=== PATIENT | male | born 1960 | race Caucasian/White ===

== ENCOUNTER 2022-10-13 09:51 | Outpatient (OUT) | payer OTHER, SELFPAY ==
--- NOTE | 2022-10-13 10:01 | MR_ITS ---
[address] [address] Patient Name: JORDAN AGUILAR MRN: [facility]:[id number] date: 1960 Sex: M Assigned Patient Location: MRI Current Patient Location: Accession/Order Number: [id number] Exam Date: 10/13/2022 10:36 Report Date: 10/14/2022 07:33 At the request of: JORDAN AZAR Procedure: MR lumbar spine wo/w con EXAMINATION: MR lumbar spine wo/w con HISTORY: Lumbar Radiculitis M54.16 ; acute exacerbation of chronic low back and left hip pain COMPARISON: CT L-spine 06/08/2022 TECHNIQUE: Axial T1 and T2; Sagittal T1, T2, and STIR sequences. Images were performed before and after the administration of intravenous Dotarem contrast. FINDINGS: For the purposes of numbering, sagittal T2 image # 7 extends from the T12 vertebral body superiorly to the S2 level inferiorly. PARASPINAL AREA: Bilobed fusiform aneurysmal dilation of infrarenal aorta, approximately 4.9 x 3.5 cm. BONES: Moderate anterior wedging of L1 vertebral body without marrow edema; stable. CORD/CAUDA EQUINA: Normal caliber, contour, and signal intensity. LUMBAR DISC LEVELS: 12-L1: Early degenerative disc disease is present without focal protrusion or neural impingement. L1-L2: Early degenerative disc disease is present without focal protrusion or neural impingement. L2-L3: Early degenerative disc disease is present without focal protrusion or neural impingement. L3-L4: Mild central canal and bilateral foramen narrowing. Mild diffuse disc bulging and mild disc height reduction. No significant facet arthropathy. L4-L5: No significant disc/facet abnormality, spinal stenosis, or foraminal stenosis. L5-S1: Moderate marked right foramen and mild left foramen narrowing. No significant central canal narrowing. Mild diffuse disc bulging with right and left paracentral disc extrusions extending inferiorly approximately one fourth of vertebral body height of S1. Mild degenerative facet arthropathy bilaterally. MR/MR lumbar spine wo/w con IMPRESSION: 1. Stable L1 moderate compression fracture; chronic. 2. L5-S1 moderate-marked right foramen narrowing secondary to degenerative disc disease and facet arthropathy. Bilateral paracentral disc extrusions. Electronically authenticated by: YSABEL CARPENTER Date: 10/14/2022 07:33
== END 2022-10-13 09:52 | disposition home or self-care (01) ==
LOC: MRI 09:54
PROVIDERS: PCP Family Medicine; Visit Provider Family Medicine
DX: M54.16 Radiculopathy, lumbar region (principal)
CPT/HCPCS: 72158

== ENCOUNTER 2023-01-01 08:56 | Emergency (ER) | payer OTHER, SELFPAY ==
[2023-01-01 09:07] VITALS: BP 168/82; PULSE 64; RESP 20; TEMP 36.7; O2SAT 100; BMI 26.4
--- NOTE | 2023-01-01 09:11 | XR_ITS ---
The [address] [address] Patient Name: JORDAN AGUILAR MRN: [id number] date: 1960 Sex: M Assigned Patient Location: ER Current Patient Location: Accession/Order Number: [id number] Exam Date: 01/01/2023 09:40 Report Date: 01/01/2023 10:30 At the request of: NADINE ANGELES Procedure: XR hand LT min 3V LEFT WRIST X-RAY3 VIEWS AND LEFT HAND X-RAY 3 VIEWS HISTORY: Pain. COMPARISON: None. FINDINGS: There is soft tissue swelling left wrist. There is no acute fracture or dislocation. There are mild degenerative changes in the PIP and DIP joints of the hand. There are no destructive bone lesions. XR/XR hand LT min 3V IMPRESSION: No acute bony abnormality. Soft tissue swelling left wrist. Electronically authenticated by: ZAK COOK Date: 01/01/2023 10:30
--- NOTE | 2023-01-01 09:11 | XR_ITS ---
The [place] [id number] Patient Name: JORDAN AGUILAR MRN: [id number] date: 1960 Sex: M Assigned Patient Location: ER Current Patient Location: Accession/Order Number: [id number] Exam Date: 01/01/2023 09:40 Report Date: 01/01/2023 10:30 At the request of: NADINE ANGELES Procedure: XR wrist LT min 3V LEFT WRIST X-RAY3 VIEWS AND LEFT HAND X-RAY 3 VIEWS HISTORY: Pain. COMPARISON: None. FINDINGS: There is soft tissue swelling left wrist. There is no acute fracture or dislocation. There are mild degenerative changes in the PIP and DIP joints of the hand. There are no destructive bone lesions. XR/XR wrist LT min 3V IMPRESSION: No acute bony abnormality. Soft tissue swelling left wrist. Electronically authenticated by: ZAK COOK Date: 01/01/2023 10:30
--- NOTE | 2023-01-01 11:26 | ED.GENADUL1 ---
HPI - General Adult General Chief complaint: Extremity Injury, Upper Stated complaint: FALL LT HAND PAIN Time Seen by Provider: 01/01/23 10:34 Source: patient Mode of arrival: walk-in Limitations: no limitations History of Present Illness HPI narrative: The patient tripped and fell on his left wrist , no other injuries complaining of pain in his left hand and wrist Related Data Previous Rx's Medication Instructions Recorded tramadol 50 mg tablet 50 mg PO Q12H PRN pain 3 days #6 01/01/23 tabs Allergies Allergy/AdvReac Type Severity Reaction Status Date / Time pregabalin [From Lyrica] AdvReac Severe manic Verified 01/01/23 09:06 Review of Systems ROS Status of ROS 10 or more systems reviewed and unremarkable except as noted in history and below [facility] Social History Smoking status: Former smoker Exam Narrative Exam Narrative: Nurses notes and vital signs reviewed and patient is not hypoxic. General: Well-appearing and in no apparent distress. Skin: Warm, dry, no pallor noted. No rash. Head: Normocephalic, atraumatic. Neck: Supple, non-tender. Eye: Pupils are equal, round and EOMI. No scleral icterus. Ears, Nose, Mouth, and Throat: TM are clear, no nasal mucosal hypertrophy. Oral mucosa is moist, no posterior oropharynx erythema, uvula is mid-line Cardiovascular: Regular Rate and Rhythm without murmur, gallop or rub. Respiratory: No accessory muscle use or respiratory distress. Lungs are clear to auscultation, no wheezing, rales or rhonchi Chest Wall: no tenderness Back: No midline thoracic or lumbar vertebral tenderness. No CVA tenderness Musculoskeletal: Decreased flexion of the left wrist and the patient have tenderness upon palpation of the lateral aspect of the wrist mostly over the ulnar distal styloid the patient have no tenderness upon palpation of the scaphoid area except mildly GI: Abdomen is soft, non-distended. Normal bowel sounds. No masses appreciated. No tenderness to palpation. No rebound, guarding, or rigidity noted. Neurological: A&O x4. No cranial nerve dysfunction observed. No truncal ataxia. Moves all extremities. Sensation intact. Psychiatric: Cooperative and interactive. Normal mood and affect. Constitutional Vital Signs, click to edit/add: Last Vital Signs Temp 98.1 F 01/01/23 09:07 Pulse 66 01/01/23 11:50 Resp 14 01/01/23 11:50 BP 167/84 H 01/01/23 11:50 Pulse Ox 98 01/01/23 11:50 O2 Del Method Room Air 01/01/23 11:50 Course Vital Signs Vital signs: Vital Signs Temperature 98.1 F 01/01/23 09:07 Pulse Rate 64 01/01/23 09:07 Respiratory Rate 20 01/01/23 09:07 Blood Pressure 168/82 H 01/01/23 09:07 Pulse Oximetry 100 01/01/23 09:07 Oxygen Delivery Method Room Air 01/01/23 09:07 Temperature 98.1 F 01/01/23 09:07 Pulse Rate 66 01/01/23 11:50 Respiratory Rate 14 01/01/23 11:50 Blood Pressure 167/84 H 01/01/23 11:50 Pulse Oximetry 98 01/01/23 11:50 Oxygen Delivery Method Room Air 01/01/23 11:50 Medical Decision Making MDM Narrative Medical decision making narrative: X-ray of the left wrist as well as her x-ray of the left hand showed no acute significant pathology but the patient was instructed that he need to repeat the x-ray within the week although his main concern is that ulnar side of the wrist , The patient was treated in the ER with tramadol as well as splint applied He is to follow-up with orthopedic as outpatient patient also to come back to us in case of any new symptoms or concerns The patient is to follow up with primary care physician in next 2-3 days or to return to the emergency department should any of the signs or symptoms worsen or new symptoms develop. The patient agrees with the following Diagnosis and Treatment plan and the patient will be discharged home. Discharge Plan Discharge Chief Complaint: Extremity Injury, Upper Clinical Impression: Contusion of right wrist Patient Disposition: Home, Self-Care Time of Disposition Decision: 11:26 Condition: Good Prescriptions / Home Meds: New tramadol 50 mg tablet 50 mg PO Q12H PRN (Reason: pain) 3 Days Qty: 6 0RF Instructions: Wrist Injury (ED), Contusion in Adults (ED) Stand Alone Forms: Portal Instructions Referrals: Washington Brooks MD [Primary Care Provider] - 1 week John Mcpherson MD [Physician] - 1 week Discharge Date/Time: 01/01/23 11:52
[2023-01-01] MEDS: TRAMADOL HCL 50 MG TABLET PO (11:27)
[2023-01-01 11:50] VITALS: BP 167/84; PULSE 66; RESP 14; O2SAT 98
== END 2023-01-01 11:52 | disposition home or self-care (01) ==
PROVIDERS: Emergency Provider Emergency Medicine; PCP Family Medicine
DX: S60.211A Contusion of right wrist, initial encounter (principal); Z87.891 Personal history of nicotine dependence; W01.10XA Fall on same level from slipping, tripping and stumbling with subsequent striking against unspecified object, initial encounter
CPT/HCPCS: 73110; 73130; 99283

== ENCOUNTER 2023-01-11 09:25 | Outpatient (OUT) | payer OTHER, SELFPAY ==
--- NOTE | 2023-01-11 09:51 | XR_ITS ---
The [place] [id number] Patient Name: JORDAN AGUILAR MRN: [id number] date: 1960 Sex: M Assigned Patient Location: [facility] Current Patient Location: Accession/Order Number: [id number] Exam Date: 01/11/2023 09:45 Report Date: 01/12/2023 06:55 At the request of: JORDAN HOY Procedure: XR wrist LT min 3V PROCEDURE: XR wrist LT min 3V HISTORY: Left Wrist Pain since falling 10 days ago COMPARISON: XR wrist left 01/01/2023 FINDINGS: BONES:Mild degenerative changes at the scaphoid-trapezium joint. No fracture, dislocation, bone lesion. SOFT TISSUES:No visible soft tissue swelling. EFFUSION:None visible. OTHER: Negative. XR/XR wrist LT min 3V IMPRESSION: 1. No acute bone abnormality. Minimal degenerative joint disease. Electronically authenticated by: YSABEL CARPENTER Date: 01/12/2023 06:55
== END 2023-01-11 09:26 | disposition home or self-care (01) ==
LOC: RAD 09:26
PROVIDERS: PCP Family Medicine; Visit Provider Family Medicine
DX: M25.532 Pain in left wrist (principal); M19.032 Primary osteoarthritis, left wrist
CPT/HCPCS: 73110

== ENCOUNTER 2023-01-20 08:11 | Outpatient (OUT) | payer OTHER, SELFPAY ==
--- NOTE | 2023-01-20 09:06 | CT_ITS ---
The [address] [address] Patient Name: JORDAN AGUILAR MRN: [id number] date: 1960 Sex: M Assigned Patient Location: CT Current Patient Location: CT Accession/Order Number: [id number] Exam Date: 01/20/2023 08:49 Report Date: 01/20/2023 09:40 At the request of: JORDAN AZAR Procedure: CT angio chest EXAMINATION: CT angio chest, 01/20/2023 8:49 AM EDT HISTORY: Abdominal Aortic Aneurysm COMPARISON: None. TECHNIQUE: CT angiography of the chest was performed with water soluble IV contrast. MIP (maximum intensity projection) images or 3D post processing was performed. CT dose reduction technique was used, including Automated Exposure Control. FINDINGS: The heart is normal in size. The thoracic aorta is within normal limits. The pulmonary arteries are well opacified without evidence of filling defects. Paraseptal and centrilobular emphysematous changes are seen, including a large bleb along the medial aspect of the left upper lobe. Several surgical clips are projected in the right upper lobe and lateral aspect of the right middle lobe. No acute infiltrate is seen. No pneumothorax or pleural effusion is seen. The mediastinum and helene appear unremarkable. The osseous structures appear intact. The visualized portions of the upper abdomen appear unremarkable. CT/CT angio chest IMPRESSION: No evidence of pulmonary emboli or other acute process. Paraseptal and centrilobular emphysematous changes are noted, including evidence of prior surgery on the right. Electronically authenticated by: RACHELLE SWANSON Date: 01/20/2023 09:40
== END 2023-01-20 08:12 | disposition home or self-care (01) ==
LOC: CT 08:11
PROVIDERS: PCP Family Medicine; Visit Provider Family Medicine
DX: I71.40 Abdominal aortic aneurysm, without rupture, unspecified (principal)
CPT/HCPCS: 71275; Q9967

== ENCOUNTER 2023-11-03 11:31 | Outpatient (REF) | payer OTHER, SELFPAY ==
[2023-11-03 12:01] LABS: Internal Control Within Normal Limits; SARS-CoV-2 Ag NEGATIVE (NEGATIVE)
== END 2023-11-03 11:32 | disposition home or self-care (01) ==
LOC: LAB 11:31
PROVIDERS: PCP Family Medicine; Visit Provider Family Medicine
DX: J02.9 Acute pharyngitis, unspecified (principal); Z20.822 Contact with and (suspected) exposure to COVID-19
CPT/HCPCS: 87811

== ENCOUNTER 2024-11-22 10:07 | Outpatient (OUT) | payer OTHER, SELFPAY ==
--- OUTSIDE RECORDS SUMMARY | 2024-11-15 03:55 | XMS_ITS ---
Author Organization The [facility] in [place] Address [address] [place] [address] Care Team Providers Care Cma Name Role Phone Sonu Brooks Primary Care Provider [phone] REASON FOR VISIT Needs yearly Encounters Encounter Location Date Provider Diagnosis [facility] [address] [place] [address] 11/15/2024 Sonu Brooks Plan Of Treatment No Information Progress Notes * Washington AGUILAR EDOB:1960 (64 yo M)Acc No.[id number]:11/15/2024 Patient: Sonu STlas Luz Maria :1960 A ge:64 Y S ex:Male Address:[address] [place] [address], [place] [address] * true * Date: Generated for Kai patten/Duran/eTransmitting on: 0 11/22/2024 10:13 AM EDT
--- OUTSIDE RECORDS SUMMARY | 2024-11-20 06:45 | XMS_ITS ---
Author Organization The [facility] in [place] Address [address] [place] [address] Care Team Providers Care Redipper Name Role Phone Sonu Brooks Primary Care Provider Allergies Allergen (clinical drug ingredient) Drug/Non Drug Allergy documented on EMR Reaction Allergy Type Onset Date Status pregabalin Lyrica dizziness Drug Allergy Active REASON FOR VISIT Presents to office alone for yearly check up Medications Medication SIG (Take, Route, Fr equency, Duration) Notes Start Date End Date Status Magnesium 400 MG 1 capsule with a saw l Orally BID Active Multi Vitamin - 1 tablet Orally Once a day Active Simvastatin 20 MG TAKE 1 TABLET BY YOGESH TH EVERY DAY IN THE EVENING FOR 90 DAYS for 30 days Active Tacrolimus 1 MG 2 pills Orally BID Active Ursodiol 300 MG 1 capsule Orally TID 03/21/2024 Active Amitriptyline HCl 50 MG 1 tablet at bedt tobi Orally Once a day for 30 days 03/21/2024 Active Aspirin 81 81 MG 1 tablet Orally Once a day Active Bactrim DS 800-160 MG 1 tablet Orally Th ree times a Week Active Carvedilol 12.5 MG 1 tablet with food O rally Twice a day for 30 days Active CellCept 250 MG 2 capsule Orally Twice a day Active Acetaminophen 500 MG 1 capsule as needed Orally every 6 hrs not more than 2000 mg Active Social History Tobacco Use: Social History Observation Description Date Details (start date - stop date) Current Smoker NA - NA Tobacco Control (Standard) Question Answer Notes Tobacco use: Current smoker How often do you smoke cigarettes? Every day AUDIT-C (Standard) Question Answer Notes Did you have a drink containing alcohol in the p ast year? No Points 0 Interpretation Negative Problems Problem Type SNOMED Code ICD Code Onset Dates Problem Status W/U Status Risk Notes Problem Liver transplant recipient ([id number]) Liver transplant recipient (Z94.4) Active confirmed Problem Abdominal aortic aneurysm 3.0 to 5.5 centimeters in male (disorder) ([id number] ) Abdominal aortic aneurysm (AAA) 3.0 cm to 5.5 cm in diameter in male (I71.40) Active confirmed Vital Signs Weight 224.8 lbs 11/20/2024 Height 74 in 11/20/2024 Blood pressure systolic 140 mm Hg 11/21/19 25 Blood pressure diastolic 80 mm Hg 025 BMI 28.86 kg/m2 11/20/2024 Encounters Encounter Location Date Provider Diagnosis [facility] [address] [place] [address] 11/20/2024 Sonu Hoy Hypertension I10 ; L umbar radiculitis M54.16 ; Hypercholesteremia E78.00 ; Liver transplant recipient Z94.4 ; Abdominal aortic aneurysm (AAA) 3.0 cm to 5.5 cm in diameter in male I71.40 and Right inguinal hernia K40.90 Assessments Encounter Date Diagnosis (ICD Code) Assessment Notes Treatment Notes Treatment Clinical Notes Section Notes 11/20/2024 Hypertension (ICD-10 - I10) 11/20/2024 Lumbar radiculitis (ICD-10 - M54.16) 11/20/2024 Hypercholesteremia (ICD-10 - E78.00) 11/20/2024 Liver transplant recipient (ICD-10 - Z94.4) 11/20/2024 Abdominal aortic aneurysm (AAA) 3.0 cm to 5.5 cm in diameter in male (ICD-10 - I71.40) 11/20/2024 Right inguinal herni a (ICD-10 - K40.90) Plan Of Treatment Pending Test Test Name Order Date XR LSPINE MIN 4 VIEWS 11/20/2024 XR cervical spine 2-3V 11/20/2024 US aorta 11/20/2024 Progress Notes * Washington AGUILAR EDOB:1960 (64 yo M)Acc No.[id number]:11/20/2024 UNLOCKED PROGRESS NOTE Progress Note Patient: Washington ST E Provider: Los Brooks ([facility])MD :1960 A ge:64 Y S ex:Male Date:11/20/2024 Address:[address] [place] [address], [id number] Check In:10:32 AM ESTCheck O ut:11:27 AM EST Subjective: * Chief Complaints: * 1 . Presents to office alone for yearly check up. * HPI: G eneral: hx AAA - needs u/s - hypertension - stabel at home hx liver tranplant - neuropathy in feet. * ROS: E ENT: hearing changes d enies. v isual changes d enies.?non-healing mouth sores d enies. s wollen glands or neck lumps d enies. h oarseness d enies. s ore throat d enies. d ifficulty swallowing d enies. n ose bleeds d enies. n jordan congestion d enies. e ar ache d enies. e ar discharge?denies. r inging in ears d enies. l ight sensitivity d enies. e ye pain d enies. b lurring d enies. e ye irritation d enies. d ouble vision d enies.?vision loss d enies. G eneral/Constitutional: Sweats: D enies. F atigue d enies. S leep problems d enies. A norexia d enies. M alaise d enies. W eight loss d enies.?Fatigue or Weakness d enies. F ever or Chills d enies. C ardiovascular: Shortness of Breath w/lying flat d enies. L ightheadedness/dizziness d enies. C hest tightness/ heavy pressure d enies. S welling of legs, ankles, or feet d enies. W aking up with shortness of breath d enies. C hest pain denies. P alpitations d enies. W eight gain d enies. R espiratory: Chronic or frequent cough d enies. C oughing up blood?denies. D ifficulty breathing d enies. P roductive cough d enies. S noring?denies. S hortness of breath that awakens from sleep (PND) d enies. C hest pain d enies. S putum production d enies. W heezing d enies. M usculoskeletal: Joint pain d enies. J oint Fluid d enies. B ack pain d enies. K nee pain d enies. N susanne pain d enies. J oint Stiffness d enies. M uscle cramps d enies. W eakness of muscles d enies. A rthritis d enies. M uscle aches d enies. P ain in shoulder(s) d enies. S wollen joints d enies. * Medical History: A cquired thrombocytopenia, Hypertension, Hyperlipemia, Polyclonal gammopathy, Gammopathy, monoclonal, CAD (coronary artery disease), Closed compression fracture of first lumbar vertebra, sequela, Iron (Fe) deficiency anemia, Histoplasmosis, Hypertension, portal, Hernia, umbilical, Hernia, inguinal, Ascites, Abdominal aneurysm, Pleural effusion, Spleen enlarged, Cirrhosis, cryptogenic, Tricuspid regurgitation, Atrial dilatation, left, Mitral regurgitation, Congestive heart failure, Enlarged heart, Arthralgia, Low platelet count, Dyslipidemia, Benign hypertension, Anxiety, Acute depression, DDD (degenerative disc disease), lumbosacral. * Surgical History: l iver transplant 04/2022, left cataaract 02/2019, heart cath 10/2019, back surgery , umbilical hernia 09/2020, colonoscopy 04/2020. * Hospitalization/Major Diagno stic Procedure: a scities 04/2019, bowel obstruction 08/2018. * Family History: F ather: , diagnosed with Unspecified essential hypertension. M other: .?Brother(s): alive. S ister(s): alive. 2 brother(s) , 2 sister(s) - healthy. 1 son(s) , 1 daughter(s) - healthy. . * Social History: T obacco Use: T obacco Control (Standard) T obacco use: C urrent smoker H ow often do you smoke cigarettes? E very day D rug/Alcohol: A RAMIREZ-C (Standard) D id you have a drink containing alcohol in the past year? N o P oints 0 I nterpretation N egative * Medications: T aking Acetaminophen 500 MG Capsule 1 capsule as needed Orally every 6 hrs not more than 2000 mg , Taking Amitriptyline HCl 50 MG Tablet 1 tablet at bedtime Orally Once a day , Taking Aspirin 81(Aspirin) 81 MG Tablet Chewable 1 tablet Orally Once a day , Taking Bactrim DS(Sulfamethoxazole-Trimethoprim) 800-160 MG Tablet 1 tablet Orally Three times a Week , Taking Carvedilol 12.5 MG Tablet 1 tablet with food Orally Twice a day , Taking CellCept(Mycophenolate Mofetil) 250 MG Capsule 2 capsule Orally Twice a day , Taking Magnesium 400 MG Tablet 1 capsule with a meal Orally BID , Taking Multi Vitamin - Tablet 1 tablet Orally Once a day , Taking Simvastatin 20 MG Tablet TAKE 1 TABLET BY MOUTH EVERY DAY IN THE EVENING FOR 90 DAYS , Taking Tacrolimus 1 MG Capsule 2 pills Orally BID , Taking Ursodiol 300 MG Capsule 1 capsule Orally TID , Medication List reviewed and reconciled with the patient * Allergies: L yrica: dizziness - Allergy. Objective: * Vitals: W t:224.8lbs, Ht: 74 in, BP:140/80mm Hg, BMI:28.86Index, Ht-cm: 187.96 cm, Wt-k.97 kg. * Examination: P hysical Exam: GENERAL: w ell developed, well nourished, in no acute distress. HEAD: n ormocephalic/atraumatic. EYES: p upils equal, round and reactive to light, conjunctivae and sclerae normal. EARS: n o deformity or lesion of external ear, canals and TM appear normal bilaterally, TM's intact, not inflamed with normal light reflex, hearing grossly normal to conversational speech. NOSE: n o deformity, discharge, inflammation, or lesions.? MOUTH: m ucous membranes moist, normal oropharynx and posterior pharynx without lesions or exudates, tongue normal, dentition normal. NECK: n susanne supple, no masses or palpable cervical nodes, trachea midline, thyroid without nodules, masses, tenderness, or enlargement. CHEST: n o chest wall deformity, no chest wall tenderness.? LUNGS: n ormal respiratory effort and clear to auscultation, no wheezes, rales, or rhonchi, good air exchange. CARDIO: r egular rate and rhythm, normal S1 and S2, nor murmur, rub, or gallop. PULSES: n ormal capillary refill. ABDOMEN: s oft, non-distended, non-tender, no masses. MUSCULOSKELETAL: n o deformity or scoliosis noted, normal range of motion, joints normal, no erythema, edema, effusion, or ecchymosis. EXTREMITY: n o clubbing, cyanosis, edema, or deformity with normal ROM in both upper and lower bilateral extremities. NEUROLOGIC: g rossly normal. SKIN: n o rashes, ulcerations, or suspicious lesions. LYMPH NODES: n o cervical adenopathy, nodes normal. MENTAL STATUS: a lert and oriented x3, normal mood and affect. Assessment: * Assessment: 1. H ypertension - I10 (Primary) 2 . L umbar radiculitis - M54.16 ? 3 . H ypercholesteremia - E78.00 4 . L iver transplant recipient - Z94.4 5 . A bdominal aortic aneurysm (AAA) 3.0 cm to 5.5 cm in diameter in male - I71.40 6 . R ight inguinal hernia - K40.90 Plan: * Treatment: 2. A bdominal aortic aneurysm (AAA) 3.0 cm to 5.5 cm in diameter in male I maging: US aorta * Preventive Medicine: Screenings/Counseling: B [place] ACTION PLAN Above Normal BMI Follow-up D ietary management education, guidance, and counseling See treatment section of progress note for complete details of management plan. T OBACCO ACTION PLAN Patient counselled on the dangers of tobacco use and urged to quit. 0 11/20/2024 . F ALL RISK SCREENING Fall Risk Assessment: N o falls in the past year * * Electronic signature of Sonu Brooks MD, [phone] on 11/22/2024 at 10:11 AM EDT Sign off status: Pending Visit Status: C HK (Check Out) * Provider: Los Brooks ([facility])MD Date: 0 11/20/2024 Generated for Kai patten/Duran/eTransmitting on: 0 11/22/2024 10:11 AM EDT History and Physical Notes * HPI (History of Present Illness) Category Sub-Category Detail Notes Category Not es General hx AAA - needs u/s - hypertension - stabel at home hx liver tranplant - neuropathy in feet Examination Category Sub-Category Detail Notes Category Not es Physical Exam GENERAL: well developed, well nourished, in no acute distress HEAD: normocephalic/atraum atic EYES: pupils equal, round and reactive to light, conjunctivae and sclerae normal EARS: no deformity or lesi on of external ear, canals and TM appear normal bilaterally, TM's intact, not inflamed with normal light reflex, hearing grossly normal to conversational speech NOSE: no deformity, discha rge, inflammation, or lesions MOUTH: mucous membranes yesenia st, normal oropharynx and posterior pharynx without lesions or exudates, tongue normal, dentition normal NECK: neck supple, no mass es or palpable cervical nodes, trachea midline, thyroid without nodules, masses, tenderness, or enlargement CHEST: no chest wall deform ity, no chest wall tenderness LUNGS: normal respiratory e ffort and clear to auscultation, no wheezes, rales, or rhonchi, good air exchange CARDIO: regular rate and rhy thm, normal S1 and S2, nor murmur, rub, or gallop PULSES: normal capillary ref ill ABDOMEN: soft, non-distended, non-tender, no masses RECTAL: MUSCULOSKELETAL: no deformity or scol iosis noted, normal range of motion, joints normal, no erythema, edema, effusion, or ecchymosis EXTREMITY: no clubbing, cyanosi s, edema, or deformity with normal ROM in both upper and lower bilateral extremities NEUROLOGIC: grossly normal SKIN: no rashes, ulceratio ns, or suspicious lesions LYMPH NODES: no cervical adenopat hy, nodes normal MENTAL STATUS: alert and oriented x 3, normal mood and affect
--- OUTSIDE RECORDS SUMMARY | 2024-11-20 07:21 | XMS_ITS ---
Author Organization [facility] in [place] Address [address] [place] [address] Care Team Providers Care Pipe Supervisor Name Role Phone Sonu Brooks Primary Care Provider REASON FOR VISIT Referral Encounters Encounter Location Date Provider Diagnosis [facility] [address] [place] [address] 11/20/2024 Sonu Brooks Plan Of Treatment No Information Progress Notes * Washington AGUILAR EDOB:1960 (64 yo M)Acc No.[id number]:11/20/2024 Patient: Washington ST :1960 A ge:64 Y S ex:Male Address:[address] [place] [address], [place] [address] * true * Date: Generated for Kai patten/Duran/eTransmitting on: 0 11/22/2024 10:12 AM EDT
--- OUTSIDE RECORDS SUMMARY | 2024-11-22 10:11 | XMS_ITS | Encounter Summary ---
Author Organization [facility] Address [facility] [place] [address] Care Team Providers Care Bottling Equipment Sales Representative Name Role Phone Washington Brooks MD Primary Care Provider [phone] Jimmy Escalante DO, David L Unavailable [phone] Ramirez Nieto MD Unavailable + [phone] Kat Leal RN Unavailable Unavailable [facility] Unavailable Source Comments In the event this information is protected by the Federal Confidentiality of Alcohol and Drug AbusePatient Records regulations: The Federal rules restrict any use of the information to criminally investigate or prosecute any alcohol or drug abuse patient.[facility] Encounter Details Date Type Department Care Team (Late st Contact Info) Description 04/23/2021 Patient Msg Gastroenterology [address] [phone] Dayna Purdy MD [address] [place] [id number] Upper Endoscopy Social History Tobacco Use Types Packs/Day Years Used Date Smoking Tobacco: Former Cigarettes 2 41.8 0 05/30/1977 - 04/2019 Smokeless Tobacco: Former Snuff Comments:Quite 03/02/2020 Alcohol Use Standard Drinks/Week Comments Not Currently 0 (1 standard drink = 0.6 oz pur e alcohol) AUDIT-C Answer Date Recorded Q1: How often do you have a drink containing alc ohol? Never 09/09/2019 Average Number of Drinks Not on file 020 Frequency of Binge Drinking Not on file 11/2019 Area Deprivation Index Answer Date Dev rded National Score (1-100), lower number is lower ri sk Not on file 03/08/2020 State Score (1-10), lower number is lower risk N ot on file 03/08/2020 Data from: https://www.neighborhoodatlas.medicine.[facility].edu/. Last address used for calculation Not on file 03/08/2020 Sex and Gender Information Value Date Recorded Sex Assigned at Male 06/02/2020 10:20 AM EST Legal Sex Male 10:13 AM EDT Gender Identity Male 06/02/2020 10:20 AM EST Sexual Orientation Not on file COVID-19 Exposure Response Date Recorded In the last month, have you been in contact with someone who was confirmed or suspected to have Coronavirus / COVID-19? No / Unsure 04/21/2021 7:49 AM EST documented as of this encounter Functional Status * Are you deaf or do you have serious difficulty hearing? Answer Date of Assessment Author No 09/05/2020 10:00 AM Tiffanie Chavez RN * Are you blind or do you have serious difficulty seeing, even when wearing glasses? Answer Date of Assessment Author No 09/05/2020 10:00 AM Tiffanie Chavez RN * Do you have serious difficulty walking or climbing stairs? Answer Date of Assessment Author No 09/05/2020 10:00 AM Tiffanie Chavez RN * Do you have difficulty dressing or bathing? Answer Date of Assessment Author No 09/05/2020 10:00 AM Tiffanie Chavez RN * Because of a physical, mental, or emotional condition, do you have difficulty doing errands alone such as visiting a doctor's office or shopping? Answer Date of Assessment Author No 09/05/2020 10:00 AM EDT Tiffanie Schwarz RN documented as of this encounter Mental Status * Because of a physical, mental, or emotional condition, do you have serious difficulty concentrating, remembering, or making decisions? Answer Entry Date Author No 09/05/2020 10:00 AM EDT Tiffanie Schwarz RN documented in this encounter Plan of Treatment Upcoming Encounters Date Type Department Care Team (Late st Contact Info) Description 12/16/2024 7:45 AM EDT Office Visit [facility] [address] [place] [address] lab 01/20/2025 7:45 AM EDT Office Visit [facility] [address] [facility] [place] [address] lab 02/17/2025 7:45 AM EST Office Visit [facility] [address] [facility] [place] [address] lab 03/17/2025 7:45 AM EST Office Visit [facility] [address] [place] [address] lab documented as of this encounter Visit Diagnoses Not on filedocumented in this encounter Additional Health Concerns Infection Onset Date Last Indicated Resolved Time COVID-19 Rule-Out 05/06/2021 05/06/2021 05/26/2021 8:51 PM EST COVID-19 Rule-Out 11/12/2021 11/13/2021 11/13/2021 8:39 AM EDT COVID-19 Rule-Out 05/02/2022 05/02/2022 05/02/2022 8:19 PM EST documented as of this encounter Care Teams Bottling Equipment Sales Representative Relationship Specialty Start Date End Date Washington Brooks MD PCP - General Family Medicine 10/13/14 Hua Marquez Jr., DO [address] [place] [address] [place] [address] Referring Gastroenterology 05/25/18 Ramirez Nieto MD [address] [place] [address] Primary Staff Physician Cardiology 12/31/20 Kat Leal, [facility] [address] [place] [address] Transplant Center 06/10/22 [facility] [address] [address] Referring Neurosurgery 11/07/22 [facility] 05/09/22 documented as of this encounter
--- OUTSIDE RECORDS SUMMARY | 2024-11-22 10:11 | XMS_ITS | Encounter Summary ---
Author Organization [facility] Address [facility] [place] [address] Care Team Providers Care Braider Tender Name Role Phone Washington Brooks MD Primary Care Provider [phone] Jimmy Escalante DO, David L Unavailable [phone] Ramirez Nieto MD Unavailable + [phone] Kat Leal RN Unavailable Unavailable [facility] Unavailable Source Comments In the event this information is protected by the Federal Confidentiality of Alcohol and Drug AbusePatient Records regulations: The Federal rules restrict any use of the information to criminally investigate or prosecute any alcohol or drug abuse patient.[facility] Encounter Details Date Type Department Care Team (Late st Contact Info) Description 09/16/2021 Patient Msg Gastroenterology [address] [phone] Provider, [facility] Appointment reminder Social History Tobacco Use Types Packs/Day Years Used Date Smoking Tobacco: Every Day Cigarettes Started: 06/01/2021 Smokeless Tobacco: Former Snuff Comments:Quite 03/02/2020 Alcohol Use Standard Drinks/Week Comments Not Currently 0 (1 standard drink = 0.6 oz pur e alcohol) AUDIT-C Answer Date Recorded Q1: How often do you have a drink containing alc ohol? Never 09/09/2019 Average Number of Drinks Not on file 020 Frequency of Binge Drinking Not on file 11/2019 PHQ-2 Answer Date Recorded PHQ-2 score 0 05/17/2021 Area Deprivation Index Answer Date Dev rded National Score (1-100), lower number is lower ri sk 49 09/17/2021 State Score (1-10), lower number is lower risk N ot on file 09/17/2021 Data from: https://www.neighborhoodatlas.medicine.[facility]/. Last address used for calculation [address] [facility] 09/17/2021 Sex and Gender Information Value Date Recorded Sex Assigned at Male 06/02/2020 10:20 AM EST Legal Sex Male 10:13 AM EDT Gender Identity Male 06/02/2020 10:20 AM EST Sexual Orientation Not on file COVID-19 Exposure Response Date Recorded In the last 10 days, have yo u been in contact with someone who was confirmed or suspected to have Coronavirus/COVID-19? No / Unsure 09/13/2021 9:42 AM EDT documented as of this encounter Functional Status [...] Description 12/16/2024 7:45 AM EDT Office Visit [facility] [address] [place] [address] lab 01/20/2025 7:45 AM EDT Office Visit [facility] [address] [facility] [place] [address] lab 02/17/2025 7:45 AM EST Office Visit [facility] [address] [facility] [place] [address] lab 03/17/2025 7:45 AM EST Office Visit [facility] [address] [place] [address] lab documented as of this encounter Visit Diagnoses Not on filedocumented in this encounter Additional Health Concerns Infection Onset Date Last Indicated Resolved Time COVID-19 Rule-Out 11/12/2021 11/13/2021 11/13/2021 8:39 AM EDT COVID-19 Rule-Out 05/02/2022 05/02/2022 05/02/2022 8:19 PM EST documented as of this encounter Care Teams Braider Tender Relationship Specialty Start Date End Date Washington Brooks MD PCP - General Family Medicine 10/13/14 Hua Marquez Jr., [address] [facility] [place] [address] Referring Gastroenterology 05/25/18 Ramirez Nieto MD [address] [place] [address] Primary Staff Physician Cardiology 12/31/20 Kat Leal, RN [facility] [address] [place] [address] Transplant Center 06/10/22 [facility] [address] [address] Referring Neurosurgery 11/07/22 [facility] 05/09/22 documented as of this encounter
--- OUTSIDE RECORDS SUMMARY | 2024-11-22 10:11 | XMS_ITS | Encounter Summary ---
Author Organization [facility] Address [facility] [place] [address] Care Team Providers Care Web Feeder Name Role Phone Washington Brooks MD Primary Care Provider [phone] Jmimy Escalante DO, David L Unavailable [phone] Ramirez Nieto MD Unavailable + [phone] Kat Leal RN Unavailable Unavailable [facility] Unavailable Source Comments In the event this information is protected by the Federal Confidentiality of Alcohol and Drug AbusePatient Records regulations: The Federal rules restrict any use of the information to criminally investigate or prosecute any alcohol or drug abuse patient.[facility] Encounter Details Date Type Department Care Team (Late st Contact Info) Description 09/13/2021 Patient Msg Gastroenterology [address] [phone] Dayna Purdy MD [address] [place] [address] Stress Test Results Social History Tobacco Use Types Packs/Day Years [...] N ot on file 09/17/2021 Data from: https://www.neighborhoodatlas.medicine.[facility]/. Last address used for calculation [address] [facility] 09/17/2021 Sex and Gender Information Value Date [...] 09/05/2020 10:00 AM EDT Tiffanie Schwarz RN * Are you blind or do you have serious difficulty seeing, even when wearing glasses? Answer Date of Assessment Author No 09/05/2020 10:00 AM CARMELLAT Tiffanie Schwarz RN * Do you have serious difficulty walking or climbing stairs? Answer Date of Assessment Author No 09/05/2020 10:00 AM Tiffanie Chavez RN * Do you have difficulty dressing or bathing? Answer Date of Assessment Author No 09/05/2020 10:00 AM EDT Tiffanie Schwarz RN * Because of a physical, mental, [...] Description 12/16/2024 7:45 AM EDT Office Visit [facility] [address] [place] [address] lab 01/20/2025 7:45 AM EDT Office Visit [facility] [address] [place] [address] [place] [address] lab 02/17/2025 7:45 AM EST Office Visit [facility] [address] [place] [address] [place] [address] lab 03/17/2025 7:45 AM EST Office Visit [facility] [address] [place] [address] [place] [address] lab documented as of this encounter Visit Diagnoses Not on filedocumented in this encounter Additional Health Concerns Infection Onset Date Last Indicated Resolved Time COVID-19 Rule-Out 11/12/2021 11/13/2021 11/13/2021 8:39 AM EDT COVID-19 Rule-Out 05/02/2022 05/02/2022 05/02/2022 8:19 PM EST documented as of this encounter Care Teams Web Feeder Relationship Specialty Start Date End Date Washington rBooks MD PCP - General Family Medicine 10/13/14 Hua Marquez Jr., DO [address] [place] [address] [place] [address] Referring Gastroenterology 05/25/18 Ramirez Nieto MD [address] [place] [address] Primary Staff Physician Cardiology 12/31/20 Kat Leal, [facility] [address] [place] [address] Transplant Center 06/10/22 [facility] [address] [address] Referring Neurosurgery 11/07/22 [facility] 05/09/22 documented as of this encounter
--- OUTSIDE RECORDS SUMMARY | 2024-11-22 10:11 | XMS_ITS | Encounter Summary ---
Author Organization [facility] Address [facility] [place] [address] Care Team Providers Care Anesthesia Resident Name Role Phone Washington Brooks MD Primary Care Provider [phone] Jimmy Escalante DO, David L Unavailable [phone] Ramirez Nieto MD Unavailable + [phone] Kat Leal RN Unavailable Unavailable [facility] Unavailable Source Comments In the event this information is protected by the Federal Confidentiality of Alcohol and Drug AbusePatient Records regulations: The Federal rules restrict any use of the information to criminally investigate or prosecute any alcohol or drug abuse patient.[facility] Encounter Details Date Type Department Care Team (Late st Contact Info) Description 09/13/2021 Patient Msg Gastroenterology [address] [phone] Dayna Purdy MD [address] [place] [address] Liver Labs Social History Tobacco Use Types Packs/Day Years [...] N ot on file 09/17/2021 Data from: https://www.neighborhoodatlas.medicine.[facility]/. Last address used for calculation [address] [facility] 09/17/2021 Sex and Gender Information Value Date [...] of Assessment Author No 09/05/2020 10:00 AM EDTiffanie Carballo RN * Are you blind or do [...] Description 12/16/2024 7:45 AM EDT Office Visit [facility] [address] [place] [address] lab 01/20/2025 7:45 AM EDT Office Visit [facility] [address] [place] [address] [place] [address] lab 02/17/2025 7:45 AM EST Office Visit [facility] [address] [place] [address] [place] [address] lab 03/17/2025 7:45 AM EST Office Visit [facility] [address] [place] [address] [place] [address] lab documented as of this encounter Visit Diagnoses Not on filedocumented in this encounter Additional Health Concerns Infection Onset Date Last Indicated Resolved Time COVID-19 Rule-Out 11/12/2021 11/13/2021 11/13/2021 8:39 AM EDT COVID-19 Rule-Out 05/02/2022 05/02/2022 05/02/2022 8:19 PM EST documented as of this encounter Care Teams Anesthesia Resident Relationship Specialty Start Date End Date Washington Brooks MD PCP - General Family Medicine 10/13/14 Hua Marquez Jr., DO [address] [place] [address] [place] [address] Referring Gastroenterology 05/25/18 Ramirez Nieto MD [address] [place] [address] Primary Staff Physician Cardiology 12/31/20 Kat Leal, [facility] [address] [place] [address] Transplant Center 06/10/22 [facility] [address] [address] Referring Neurosurgery 11/07/22 [facility] 05/09/22 documented as of this encounter
--- OUTSIDE RECORDS SUMMARY | 2024-11-22 10:12 | XMS_ITS | Clinical Summary ---
Author Organization [facility] Address [address] [place], [place] [id number] Care Team Providers Care Kettle Tender Name Role Phone Washington Brooks MD Primary Care Provider [phone] Jimmy Escalante DO, David L Unavailable [phone] Ramirez Nieto MD Unavailable [phone] Kat Leal RN Unavailable Unavailable [facility] Unavailable Allergies Active Allergy Reactions Criticality Noted Date Comments Pregabalin Mental Status Change 10/16/2014 Lyrica Becomes Manic Medications * This document contains information received from the source organization and may not represent a complete record from that organization. multivit-min/FA/l ycopen/lutein (CENTRUM SILVER MEN ORAL) Take 1 tablet by mouth once daily. Active acetaminophen (TYLENOL) 500 mg tablet Take 1 tablet by mouth every 6 hours as needed for pain. 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 60 tablet 11 3 Active carvedilol (COREG) 6.25 mg tabletIndications :Portal hypertension with esophageal varices (HCC) Take 1 tablet by mouth two times a day. 60 tablet 4 Active aspirin 81 mg chewable tablet CHEW & SWALLOW 1 TABLET BY MOUTH ONCE DAILY 90 tablet 4 Active sulfamethoxazole- trimethoprim (BACTRIM DS) 800-160 mg per tablet Take 1 tablet by mouth every Monday, Monday, and Monday. 14 tablet 11 4 Active ursodiol (ACTIGALL) 300 mg capsule Take 1 capsule by mouth three times a day. TAKE ONE(1) CAPSULE DAILY WITH MEALS. 90 capsule 11 4 Active tacrolimus IR (PROGRAF) 1 mg capsule Take 1 capsule by mouth two times a day. 60 capsule 11 4 Active mycophenolate mofetil (CELLCEPT) 250 mg capsule TAKE 2 CAPSULES BY MOUTH TWO TIMES A DAY. 120 capsule 11 5 Active sulfamethoxazole- trimethoprim (BACTRIM DS) 800-160 mg per tablet TAKE 1 TABLET BY MOUTH EVERY MONDAY,,MONDAY 12 tablet 11 5 Active Active Problems Problem Noted Date Diagnosed Date Hyperglycemia 05/06/2022 Assessment & Plan (05/12/2022 12:50 PM EST): Assessment: post-transplant steroid induced hyperglycemia PLAN: - AccuCheck ACHS - continue Insulin SS - consulted Endo, appreciate discharge recommendations Assessment & Plan (05/11/2022 1:24 PM EST): Assessment: post-transplant steroid induced hyperglycemia PLAN: - AccuCheck ACHS - continue Insulin SS - will consult Endo if blood sugar consistently elevated Assessment & Plan (05/10/2022 1:28 PM EST): Assessment: post-transplant steroid induced hyperglycemia PLAN: - AccuCheck ACHS - continue Insulin SS - will consult Endo if blood sugar consistently elevated Assessment & Plan (05/09/2022 12:31 PM EST): Assessment: post-transplant steroid induced hyperglycemia PLAN: - AccuCheck ACHS - continue Insulin SS - will consult Endo if blood sugar consistently elevated Assessment & Plan (05/06/2022 1:53 PM EST): Assessment: post-transplant steroid induced hyperglycemia PLAN: - AccuCheck ACHS - continue Insulin SS - will consult Endo if blood sugar consistently elevated Need for prophylactic immunotherapy 05/05/2022 Assessment & Plan (05/12/2022 12:42 PM EST): Assessment: crossmatch negative Induction: [facility] 05/03 Current immunosuppression: Cellcept 1 g BID Steroid taper Tacrolimus 3 mg BID FK level 9 PLAN: -continue tacrolimus 3/3 - continue Cellcept and Steroid - daily FK level Assessment & Plan (05/11/2022 1:22 PM EST): Assessment: crossmatch negative Induction: [facility] 05/03 Current immunosuppression: Cellcept 1 g BID Steroid taper Tacrolimus 3 mg BID FK level 11.6 PLAN: -continue tacrolimus 3/3 - continue Cellcept and Steroid - daily FK level Assessment & Plan (05/10/2022 1:28 PM EST): Assessment: crossmatch negative Induction: [facility] 05/03 Current immunosuppression: Cellcept 1 g BID Steroid taper Tacrolimus 3 mg BID FK level 10.3 PLAN: -continue tacrolimus 3/3 - continue Cellcept and Steroid - daily FK level Assessment & Plan (05/09/2022 12:29 PM EST): Assessment: crossmatch negative Induction: [facility] 05/03 Current immunosuppression: Cellcept 1 g BID Steroid taper Tacrolimus 4 mg BID (incresed 2/5) FK level 11.1 PLAN: - decrease Tacrolimus to 3 mg BID - continue Cellcept and Steroid - daily FK level Assessment & Plan (05/06/2022 1:47 PM EST): Assessment: crossmatch negative Induction: [facility] 05/03 Current immunosuppression: Cellcept 1 g BID Steroid taper Tacrolimus 2 mg BID (started 2/ PM) FK level 2 PLAN: - increase Tacrolimus to 3 mg BID - continue Cellcept and Steroid - daily FK level Assessment & Plan (05/05/2022 2:42 PM EST): Assessment: crossmatch negative Induction: [facility] 05/03 Current immunosuppression: Cellcept 1 g BID Steroid taper Tacrolimus 1 mg BID (started 2 PM) PLAN: - continue current Tacrolimus level - continue Cellcept and Steroid - daily FK level Acute postoperative pulmonary insufficiency 04/05 Assessment & Plan (05/12/2022 12:51 PM EST): Assessment: H/o histoplasmosis and remote RUL bullectomy Extubated 2/1 Saturating well on RA PLAN: - BPH, incentive spirometer while awake - supplemental O2 PRN for SpO2 < 92% Assessment & Plan (05/11/2022 1:52 PM EST): Assessment: H/o histoplasmosis and remote RUL bullectomy Extubated 2/1 Saturating well on RA PLAN: - BPH, incentive spirometer while awake - supplemental O2 PRN for SpO2 < 92% Assessment & Plan (05/10/2022 1:26 PM EST): Assessment: H/o histoplasmosis and remote RUL bullectomy Extubated 2/1 Saturating well on RA PLAN: - BPH, incentive spirometer while awake - supplemental O2 PRN for SpO2 < 92% Assessment & Plan (05/09/2022 12:33 PM EST): Assessment: H/o histoplasmosis and remote RUL bullectomy Extubated 2/1 Saturating well on RA PLAN: - BPH, incentive spirometer while awake - supplemental O2 PRN for SpO2 < 92% Assessment & Plan (05/06/2022 1:49 PM EST): Assessment: H/o histoplasmosis and remote RUL bullectomy Extubated 2/1 Saturating well on RA PLAN: - BPH, incentive spirometer while awake - supplemental O2 PRN for SpO2 < 92% Assessment & Plan (05/05/2022 2:34 PM EST): Assessment: H/o histoplasmosis and remote RUL bullectomy Extubated 2/1 Saturating well on RA PLAN: - BPH, incentive spirometer while awake - supplemental O2 PRN for SpO2 < 92% Assessment & Plan (05/05/2022 12:36 PM EST): Assessment: H/o histoplasmosis and remote RUL bullectomy. Intubated and sedated on arrival to SICU. -2/: successfully extubated to NC without issue PLAN: -- Aggressive BPH, PT/OT, OOB to chair -- PRN duonebs -- Wean supplemental O2 as tolerated for goal SpO2 > 92% Assessment & Plan (05/04/2022 4:11 PM EST): Assessment: H/o histoplasmosis and remote RUL bullectomy. Intubated and sedated on arrival to SICU. -2: successfully extubated to NC without issue PLAN: -- Aggressive BPH, PT/OT, OOB to chair -- PRN duonebs -- Wean supplemental O2 as tolerated for goal SpO2 > 92% Assessment & Plan (05/03/2022 3:30 PM EST): Assessment: H/o histoplasmosis and remote RUL bullectomy. Remains intubated and sedated PLAN: -- Keep intubated and sedated for now and overnight -- PRN duonebs Acute blood loss anemia 05/03/2022 Assessment & Plan (05/12/2022 12:51 PM EST): Assessment: EBL 7.5L H/H 10.1/29.6 No s/s of bleeding PLAN: - monitor CBC closely - monitor for bleeding - transfuse as needed Assessment & Plan (05/11/2022 1:52 PM EST): Assessment: EBL 7.5L H/H 11/32.1 No s/s of bleeding PLAN: - monitor CBC closely - monitor for bleeding - transfuse as needed Assessment & Plan (05/10/2022 1:27 PM EST): Assessment: EBL 7.5L H/H 11.4/33.4 No s/s of bleeding PLAN: - monitor CBC closely - monitor for bleeding - transfuse as needed Assessment & Plan (05/09/2022 12:34 PM EST): Assessment: EBL 7.5L H/H 12.4/36.2 No s/s of bleeding PLAN: - monitor CBC closely - monitor for bleeding - transfuse as needed Assessment & Plan (05/06/2022 1:50 PM EST): Assessment: EBL 7.5L H/H 8.8/26.2 No s/s of bleeding PLAN: - monitor CBC closely - monitor for bleeding - transfuse as needed Assessment & Plan (05/05/2022 2:35 PM EST): Assessment: EBL 7.5L H/H 8.9/25.8 No s/s of bleeding PLAN: - monitor CBC closely -monitor for bleeding - transfuse as needed Assessment & Plan (05/05/2022 12:37 PM EST): Assessment: S/p OLT. No PRBCs intra-op, 2 units in SICU for drop in HGB to 7.4 -2/1: given 1 units PRBC o/n for Hgb 7.6, repeat today 9.1, no active signs of extravasation, ASTER output moderate SS PLAN: -- Monitor daily CBCs -- transfuse as clinically indicated -- CTM ASTER output, active signs of bleeding Assessment & Plan (05/04/2022 4:12 PM EST): Assessment: S/p OLT. No PRBCs intra-op, 2 units in SICU for drop in HGB to 7.4 -2/1: given 1 units PRBC o/n for Hgb 7.6, repeat today 9.1, no active signs of extravasation, ASTER output moderate SS PLAN: -- Monitor q6 CBCs -- transfuse as clinically indicated -- CTM ASTER output, active signs of bleeding Assessment & Plan (05/03/2022 3:15 PM EST): Assessment: S/p OLT. No PRBCs intra-op, 2 units in SICU for drop in HGB to 7.4 PLAN: -- Monitor q6 CBCs -- transfuse as needed Coagulopathy 05/03/2022 Assessment & Plan (05/05/2022 12:37 PM EST): Assessment: Coagulopathic s/p OLT 05/03. Multiple products transfused intra-op and in immediate post-op resuscitation period. -2/: Fibrinogen 137, Plt 40k, INR 1.4. No products transfused. PLAN: -- Follow daily CBC, Coags -- Replace with products as clinically indicated Assessment & Plan (05/04/2022 4:16 PM EST): Assessment: Coagulopathic s/p OLT 05/03. Multiple products transfused intra-op and in immediate post-op resuscitation period. -2: Fibrinogen 137, Plt 40k, INR 1.4. No products transfused. PLAN: -- Follow q6 CBC, Coags, and TEG -- Replace with products as clinically indicated Assessment & Plan (05/03/2022 4:19 PM EST): Assessment: Elevated PTT, INR, fibrinogen PLAN: -- follow q 6 -- transfuse as appropriate Liver transplant recipient 05/02/2022 Assessment & Plan (05/12/2022 12:47 PM EST): Assessment: S/p DBD-OLT, piggyback, PV main to main, d Celiac artery - r RHA/LHA, bile duct to duct, Sprenorenal shunt ligation on 05/03/2022 [place] study CS group LVUS 2/1: Patent hepatic vasculature with appropriately directed flow. Elevated portal venous velocities is nonspecific in the immediate postoperative period. Previously noted main portal vein narrowing is not demonstrated. LVUS 2/3: Patent hepatic vasculature with elevated portal venous velocities at the main portal vein. LVUS 2/5: Patent hepatic vasculature with appropriately directed flow ASTER output total ~250 cc over last 24 hrs LFTs trending down PLAN: - monitor CMP and INR daily - bactrim, Nystatin, and Acyclovir for prophylaxis - will remove last ASTER - stop Lasix and monitor kidney function - self med instructions ordered - meds sent to - continue bowel regimen Assessment & Plan (05/11/2022 1:23 PM EST): Assessment: S/p DBD-OLT, piggyback, PV main to main, d Celiac artery - r RHA/LHA, bile duct to duct, Sprenorenal shunt ligation on 05/03/2022 [place] study CS group LVUS 2/1: Patent hepatic vasculature with appropriately directed flow. Elevated portal venous velocities is nonspecific in the immediate postoperative period. Previously noted main portal vein narrowing is not demonstrated. LVUS 2/3: Patent hepatic vasculature with elevated portal venous velocities at the main portal vein. LVUS 2/5: Patent hepatic vasculature with appropriately directed flow ASTER output total ~595 cc over last 24 hrs LFTs trending down PLAN: - monitor CMP and INR daily - bactrim, Nystatin, and Acyclovir for prophylaxis - will remove ASTER#1, monitor color and output from ASTER #2 - change Lasix to 40 mg daily IV - self med instructions ordered - meds sent to - continue bowel regimen Assessment & Plan (05/10/2022 10:44 AM EST): Assessment: S/p DBD-OLT, piggyback, PV main to main, d Celiac artery - r RHA/LHA, bile duct to duct, Sprenorenal shunt ligation on 05/03/2022 [place] study CS group LVUS 2/1: Patent hepatic vasculature with appropriately directed flow. Elevated portal venous velocities is nonspecific in the immediate postoperative period. Previously noted main portal vein narrowing is not demonstrated. LVUS 2/3: Patent hepatic vasculature with elevated portal venous velocities at the main portal vein. LVUS 2/5: Patent hepatic vasculature with appropriately directed flow ASTER output total ~1300 cc over last 24 hrs ALT and AST trending down however TBili and AlkPhos going up PLAN: - monitor CMP and INR daily - bactrim, Nystatin, and Acyclovir for prophylaxis - monitor ASTER output - continue Lasix 40 mg BID IV - self med instructions ordered - meds sent to -bowel regimen, dulcolax suppository x 1 today Assessment & Plan (05/09/2022 12:31 PM EST): Assessment: S/p DBD-OLT, piggyback, PV main to main, d Celiac artery - r RHA/LHA, bile duct to duct, Sprenorenal shunt ligation on 05/03/2022 [place] study CS group LVUS 2/1: Patent hepatic vasculature with appropriately directed flow. Elevated portal venous velocities is nonspecific in the immediate postoperative period. Previously noted main portal vein narrowing is not demonstrated. LVUS 2/3: Patent hepatic vasculature with elevated portal venous velocities at the main portal vein. LVUS 2/5: Patent hepatic vasculature with appropriately directed flow ASTER output total 800 cc over last 24 hrs ALT and AST trending down however TBili and AlkPhos going up PLAN: - monitor CMP and INR daily - bactrim, Nystatin, and Acyclovir for prophylaxis - monitor ASTER output - continue Lasix 40 mg BID IV to help decrease ASTER output - self med instructions ordered - meds sent to Assessment & Plan (05/06/2022 1:49 PM EST): Assessment: S/p DBD-OLT, piggyback, PV main to main, d Celiac artery - r RHA/LHA, bile duct to duct, Sprenorenal shunt ligation on 05/03/2022 [place] study CS group LVUS 2/1: Patent hepatic vasculature with appropriately directed flow. Elevated portal venous velocities is nonspecific in the immediate postoperative period. Previously noted main portal vein narrowing is not demonstrated. LVUS 2/3: Patent hepatic vasculature with elevated portal venous velocities at the main portal vein. ASTER output total 2840 cc over last 24 hrs LFTs are trending down PLAN: - monitor CMP and INR daily - bactrim, Nystatin, and Acyclovir for prophylaxis - monitor ASTER output - start Lasix 40 mg BID IV to help decrease ASTER output - self med instructions ordered - meds sent to Assessment & Plan (05/05/2022 2:38 PM EST): Assessment: S/p DBD-OLT, piggyback, PV main to main, d Celiac artery - r RHA/LHA, bile duct to duct, Sprenorenal shunt ligation on 05/03/2022 [place] study CS group LVUS 2/1: Patent hepatic vasculature with appropriately directed flow. Elevated portal venous velocities is nonspecific in the immediate postoperative period. Previously noted main portal vein narrowing is not demonstrated. LFTs are trending down PLAN: - monitor CMP and INR daily - bactrim, Nystatin, and Acyclovir for prophylaxis - monitor ASTER output - Ok for GI Soft diet - Ok for RNF tomorrow Cirrhosis of liver with ascites 11/29/2021 Assessment & Plan (02/10/2022 3:08 PM EST): Stable on Bumetanide 1 mg twice daily, Rifaximin 500 mg twice daily, Spironolactone 200 mg daily, and Lactulose twice daily. Patient follows with Gastroenterology, most recent visit 11/29/[address] Purdy. Per note, His cirrhosis is c/b portal HTN ( diuretic-refractory ascites, edema, splenomegaly, thrombocytopenia, HE, PHG, and sarcopenia). Patient states he has not required a paracentesis since about May 2021. He had an ultrasound performed today to survey ascites. Nicotine use disorder, F17.2 11/13/2021 COPD (chronic obstructive pulmonary disease) 02/2022 Assessment & Plan (02/10/2022 3:00 PM EST): No current medications or inhalers. Patient follows with Pulmonary, is scheduled for a pre-op evaluation with Dr. Mora on 02/11/22. Assessment & Plan (11/12/2021 10:22 AM EDT): Assessment: no inhalers, stable Anemia 11/11/2021 Thrombocytopenia 11/11/2021 Assessment & Plan (05/12/2022 12:42 PM EST): Assessment: Plt 151 today No s/s of bleeding PLAN: - monitor CBC closely - transfuse as needed - monitor for bleeding Assessment & Plan (05/11/2022 1:22 PM EST): Assessment: Plt 138 today No s/s of bleeding PLAN: - monitor CBC closely - transfuse as needed - monitor for bleeding Assessment & Plan (05/10/2022 10:41 AM EST): Assessment: Plt 113 today No s/s of bleeding PLAN: - monitor CBC closely - transfuse as needed - monitor for bleeding Assessment & Plan (05/09/2022 12:29 PM EST): Assessment: Plt 89 today No s/s of bleeding PLAN: - monitor CBC closely - transfuse as needed - monitor for bleeding Assessment & Plan (05/06/2022 1:46 PM EST): Assessment: Plt 34 today No s/s of bleeding PLAN: - monitor CBC closely - transfuse as needed - monitor for bleeding - hold Heparin at this time Assessment & Plan (05/05/2022 2:31 PM EST): Assessment: Plt 32 today No s/s of bleeding PLAN: - monitor CBC closely - transfuse as needed - monitor for bleeding - hold Heparin at this time Assessment & Plan (05/05/2022 12:36 PM EST): Assessment: Pre-op Plts 106k. -2/2: 32k PLAN: -- Trend CBC daily -- CTM ASTER output for signs of bleeding -- Continue to hold chemical DVT ppx Assessment & Plan (05/04/2022 4:09 PM EST): Assessment: Pre-op Plts 106k. -2/1: 40k, up-trending PLAN: -- Transfuse with products as clinically indicated, no signs of active extravsation -- Trend CBC Q6 -- CTM ASTER output, active signs of bleeding -- Continue to hold chemical DVT ppx Assessment & Plan (05/03/2022 4:20 PM EST): Assessment: pre-op plts 106 PLAN: -- transfused plts on arrival to SICU -- follow q6 and transfuse as appropriate Assessment & Plan (02/10/2022 3:05 PM EST): Patient follows with Hematology, most recent visit 12/08/[address] Mejia. Per note, Assessment and Plan: Washington Rodriguez is a 61 year old male who presented for thrombocytopenia. Has known OSMAN liver cirrhosis with baseline platelet count around 100K, which is expected. However, in early 11/2021, he developed significant isolated thrombocytopenia with a michael platelet count of 18K. This was just following a viral illness (fever, cough, low appetite). 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 Unable to due additional testing at this time to confirm or deny this speculation. His platelet count is currently back to baseline. I suggest ongoing observation moving forward. I am happy to see him back as needed if unexpected cytopenias return. CBC 02/10/22 showed - platelet 102 k/uL. Stable, at baseline. Assessment & Plan (11/12/2021 11:18 AM EDT): Assessment: baseline in 70's - labs completed 11/11 platelet count 18. Contacted surgeon Dr. Landry and Dr. Purdy - he will be admitted pre-operatively and transfused CAD (coronary artery disease) 11/11/2021 Assessment & Plan (05/12/2022 12:51 PM EST): Assessment: Heart cath 2 years ago with 100% RCA occulsion, no PCI due to sufficient collaterals On carvedilol and simvastatin at home ECHO 05/10: The left ventricle is normal in size. Left ventricular systolic function is normal. EF = 55 5% (visual est.) - The right ventricle is normal in size. Right ventricular systolic function is normal. Apical images are off axis and medial. RV appears grossly normal in limited views. - AV not well seen but appears trileaflet on limited views. - No significant valvular regurgitation or stenosis. - Exam was compared with the prior echocardiographic exam performed on 09/13/21 (resting images). Similar findings. PLAN: - Continue Carvedilol and Aspirin - will restart Statin when LFTs are stable Assessment & Plan (05/11/2022 1:52 PM EST): Assessment: Heart cath 2 years ago with 100% RCA occulsion, no PCI due to sufficient collaterals On carvedilol and simvastatin at home ECHO 05/10: The left ventricle is normal in size. Left ventricular systolic function is normal. EF = 55 5% (visual est.) - The right ventricle is normal in size. Right ventricular systolic function is normal. Apical images are off axis and medial. RV appears grossly normal in limited views. - AV not well seen but appears trileaflet on limited views. - No significant valvular regurgitation or stenosis. - Exam was compared with the prior echocardiographic exam performed on 09/13/21 (resting images). Similar findings. PLAN: - restarted Carvedilol - continue Aspirin - will restart Statin when LFTs are stable Assessment & Plan (05/10/2022 10:41 AM EST): Assessment: Heart cath 2 years ago with 100% RCA occulsion, no PCI due to sufficient collaterals On carvedilol and simvastatin at home PLAN: - ECHO ordered - will restart Carvedilol and Statin before discharge - started Aspirin Assessment & Plan (05/09/2022 12:33 PM EST): Assessment: Heart cath 2 years ago with 100% RCA occulsion, no PCI due to sufficient collaterals On carvedilol and simvastatin at home PLAN: - ECHO ordered - will restart Carvedilol and Statin before discharge - started Aspirin Assessment & Plan (05/06/2022 1:49 PM EST): Assessment: Heart cath 2 years ago with 100% RCA occulsion, no PCI due to sufficient collaterals On carvedilol and simvastatin at home PLAN: - ECHO ordered - will restart Carvedilol and Statin before discharge - will start Aspirin when appropriate Assessment & Plan (05/05/2022 2:33 PM EST): Assessment: Heart cath 2 years ago with 100% RCA occulsion, no PCI due to sufficient collaterals On carvedilol and simvastatin at home PLAN: - ECHO when on the floor - will restart Carvedilol and Statin before discharge - will start Aspirin when appropriate Assessment & Plan (05/05/2022 12:36 PM EST): Assessment: Heart cath 2 years ago with 100% RCA occulsion, no PCI due to sufficient collaterals On carvedilol and simvastatin at home PLAN: -- Holding carvedilol while requiring pressors -- Resume home meds as appropriate Assessment & Plan (05/04/2022 4:09 PM EST): Assessment: Heart cath 2 years ago with 100% RCA occulsion, no PCI due to sufficient collaterals On carvedilol and simvastatin at home PLAN: -- Holding carvedilol while requiring pressors -- Resume home meds as appropriate Assessment & Plan (05/03/2022 3:33 PM EST): Assessment: Heart cath 2 years ago with 100% RCA occulsion, no PCI due to sufficient collaterals On carvedilol and simvastatin at home PLAN: -- Holding carvedilol while requiring pressors -- Resume home meds as appropriate Assessment & Plan (02/10/2022 2:59 PM EST): Patient had a cardiac cath 10/25/19 which showed - Left dominant circulation. Chronic occlusion of a small non-dominant RCA that is supplied by right to right and left to right collaterals. Otherwise mostly mild to moderate coronary disease in the LAD and large dominant LCx, with moderate disease involving only the distal portions of those vessels. Patient has been evaluated by Cardiology, most recent visit 12/31/[address] Nieto. Patient denies recent chest pain, palpitations, shortness of breath. Assessment & Plan (11/12/2021 10:22 AM EDT): Assessment: Stable and negative stress test. No stents. On statin. APPOINTMENT CANCELLED 10/29/2020 Portal hypertension with esophageal varices 10/2020 Assessment & Plan (02/10/2022 3:04 PM EST): EGD 04/21/21 showed - Small (< 5 mm) esophageal varices, portal hypertensive gastropathy. Patient follows with Gastroenterology, most recent visit 11/29/[address] Purdy. Assessment & Plan (11/12/2021 10:24 AM EDT): Assessment: follows with Dr. Purdy, stable Muscle cramp 10/07/2020 Unilateral inguinal hernia without obstruction o r gangrene 09/04/2020 Age-related osteoporosis wit hout current pathological fracture 08/20/2020 Hypergammaglobulinemia 02/26/2020 History of colonic polyps 02/26/2020 Lung nodules 08/14/2019 Abdominal aortic aneurysm (AAA) without rupture 05/01/2019 Assessment & Plan (05/05/2022 12:35 PM EST): Assessment: Stable on last imaging. Abd soft, appropriately tender, non- distended. PLAN: -- Vital signs per SICU protocol -- CTM hemodynamics, HDS for now, resume home meds when appropriate Assessment & Plan (05/04/2022 4:07 PM EST): Assessment: Stable on last imaging. Abd soft, appropriately tender, non- distended. PLAN: -- Vital signs per SICU protocol -- CTM hemodynamics, HDS for now, resume home meds when appropriate Assessment & Plan (05/03/2022 3:05 PM EST): Assessment: Stable on last imaging. 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 Now s/p 05/03 OLT. Postop Liver US stable with adequate PV flow. 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 Now s/p OLT. Postop Liver US stable with adequate PV flow. PLAN: -- Immunosupression per transplant team -- q6 CBC, TEG, fibrinogen and coags -- transfuse products as needed -- transplant Primary; f/u recs Assessment & Plan (05/03/2022 3:45 PM EST): Assessment:OSMAN-related cirrhosis (liver biopsy 2018 with cryptogenic cirrhosis) c/b portal HTN (diuretic-refractory), ascites/ HHT, edema, splenomegaly with thrombocytopenia, portal hypertensive gastropathy, sarcopenia and hepatic encephalopathy. Now s/p OLT PLAN: -- Immunosupression per transplant team -- q6 CBC, TEG, fibrinogen and coags -- transfuse products as needed -- Follow lactate -- Liver ultrasound post-op Assessment & Plan (11/12/2021 10:23 AM EDT): Assessment: follows with Dr. Torres and on transplant list Other ascites 05/30/2018 Assessment & Plan (11/12/2021 11:15 AM EDT): Assessment: well controlled on bumex and spironolactone. He is scheduled for pre-op paracentesis Histoplasmosis 05/30/2018 Assessment & Plan (02/10/2022 3:00 PM EST): H/o pulmonary histoplasmosis s/p remote RUL bullectomy. Patient follows with Pulmonary, is scheduled for a pre-op evaluation with Dr. Mora on 02/11/22. Assessment & Plan (11/12/2021 10:25 AM EDT): Assessment: s/p RUL bullectomy in 1980's stable Metabolic syndrome 05/30/2018 Hepatic steatosis 05/30/2018 Essential hypertension 05/30/2018 Assessment & Plan (05/12/2022 12:50 PM EST): Assessment: H/o essential hypertension. On carvedilol at home PLAN: -Continue home dose Carvedilol Assessment & Plan (05/11/2022 1:41 PM EST): Assessment: H/o essential hypertension. On carvedilol at home PLAN: -will restart home dose of Carvedilol with holding parameters Assessment & Plan (05/10/2022 10:41 AM EST): Assessment: H/o essential hypertension. On carvedilol at home PLAN: - hold home medication at this time, will restart when appropriate Assessment & Plan (05/09/2022 12:31 PM EST): Assessment: H/o essential hypertension. On carvedilol at home PLAN: - hold home medication at this time, will restart when appropriate Assessment & Plan (05/06/2022 1:49 PM EST): Assessment: H/o essential hypertension. On carvedilol at home PLAN: - hold home medication at this time, will restart when appropriate Assessment & Plan (05/05/2022 2:32 PM EST): Assessment: H/o essential hypertension. On carvedilol at home PLAN: - hold home medication at this time, will restart when appropriate Assessment & Plan (05/05/2022 12:34 PM EST): Assessment: On carvedilol at home PLAN: -- continue to hold Coreg for now; resume when clinically appropriate Assessment & Plan (05/04/2022 4:05 PM EST): Assessment: On carvedilol at home PLAN: -- continue to hold for now; resume when clinically appropriate Assessment & Plan (05/03/2022 3:35 PM EST): Assessment: On carvedilol at home PLAN: -- holding while requiring pressors, resume as appropriate Assessment & Plan (02/10/2022 2:51 PM EST): Stable on Lisinopril 20 mg daily. BP today 126/73. Assessment & Plan (11/12/2021 10:20 AM EDT): Assessment: stable on meds. BP today 104/79 which is normal for him Dyslipidemia 05/30/2018 Assessment & Plan (05/05/2022 12:35 PM EST): Assessment: On simvastatin at home. Transaminases decreasing PLAN: -- continue to hold for now, resume when clinically appropriate Assessment & Plan (05/04/2022 4:06 PM EST): Assessment: On simvastatin at home. Transaminases remain elevated, plateaud. PLAN: -- continue to hold for now resume when clinically appropriate Assessment & Plan (05/03/2022 3:34 PM EST): Assessment: On simvastatin at home PLAN: Will resume when able Assessment & Plan (02/10/2022 2:52 PM EST): Stable on Simvastatin 20 mg daily. 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 Pulmonary hypertension 05/30/201808/20 Encounters Date Type Department Care Team Description 11/18/2024 Results Follow-Up Transplant [facility] [address] [id number] Kat Leal RN 11/01/2024 Patient Msg Transplant Center [address] [address] Kat Leal RN Important program update 10/21/2024 Results Follow-Up Transplant [facility] [address] [place] [id number] Kat Leal RN 10/21/2024 Travel 09/27/2024 Results Follow-Up Transplant Center [address] [place] [id number] Kat Leal RN 09/13/2024 Results Follow-Up Transplant Center [address] [place] [id number] Kat Leal RN 09/13/2024 Travel 08/23/2024 Results Follow-Up Transplant Center [address] [place] [address] Kat Leal RN 08/22/2024 [facility] Patient Msg Transplant Center [address] [place] [id number] Kat Leal RN Observation of from Last 3 Months Immunizations Immunization Administration Dates Next Due COVID-19 original vaccine, f ull dose, monovalent (MODERNA) 02/18/2021,07/13/2020,06/16/2020 COVID-19 vaccine, unspecified formulation 2020,07/13/2020,06/16/2020 hepatitis A (HepA) vaccine, adult (HAVRIX, VAQTA) 02/26/2020,09/10/2019 hepatitis B (HepB-CpG) vacci ne, adult, 2-dose series (HEPLISAV-B) 07/26/2018,07/03/2018 influenza (IIV3) vaccine, ag e 6 mo - 64 yr, trivalent (AFLURIA, FLULAVAL, FLUVIRIN, FLUZONE) 12/28/2017 influenza (IIV4) vaccine, ag e 6 mo - 64 yr, quadrivalent, PF (AFLURIA, FLUARIX, FLULAVAL, FLUZONE) 03/05/2022 influenza (ccIIV4) vaccine, age 6+ mo, quadrivalent, PF (FLUCELVAX) 01/14/2021,03/02/2020 influenza vaccine, unspecified formulation 01/17 pneumococcal conjugate (PCV1 3) vaccine, 13 valent (PREVNAR 13) 09/10/2019 tetanus diphtheria pertussis (Tdap) vaccine, age 7+ yr (ADACEL, BOOSTRIX) 09/10/2019 Family History Medical History Relation Comments Diabetes Brother 1 Heart Attack Brother 1 Diabetes Brother 2 Gout Brother 2 Hypertension Brother 2 Diabetes Father Heart Attack Father in h ospital Heart disease Father bypass Father Heart Attack Maternal Grandfather pneumonia Maternal Grandmother passed age 80's MVA Mother lung cancer Paternal Grandfather Diabetes Paternal Grandmother passed age 94 Heart disease Paternal Uncle 1 Cancer Paternal Uncle 2 multi type pass ed away Heart Paternal Uncle 3 Thyroid Sister 1 Anesthesia Problems No Family History Relation Status Comments Brother 1 Alive Brother 2 Alive Father Maternal Grandfather Maternal Grandmother Mother Paternal Grandfather Paternal Grandmother Paternal Uncle 1 Paternal Uncle 2 Paternal Uncle 3 Sister 1 Alive Sister 2 Alive Social History Tobacco Use Types Packs/Day Years Used Date Smoking Tobacco: Some Days Cigarettes 2 41 Started: 1979; Last attempted to quit: 2019 Smokeless Tobacco: Never Tobacco Cessation:Ready to Q uit: Not Asked; Counseling Given: Not Answered Alcohol Use Standard Drinks/Week Comments Not Currently 0 (1 standard drink = 0.6 oz pur e alcohol) none since 2018 AUDIT-C Answer Date Recorded Q1: How often do you have a drink containing alc ohol? Never 09/09/2019 Average Number of Drinks Not on file 020 Frequency of Binge Drinking Not on file 11/2019 PHQ-2 Answer Date Recorded PHQ-2 score 3 12/08/2022 Area Deprivation Index Answer Date Dev rded National Score (1-100), lower number is lower ri sk 39 08/03/2022 State Score (1-10), lower number is lower risk 2 08/03/2022 Data from: https://www.neighborhoodatlas.medicine.[facility].edu/. Last address used for calculation [address] 08/03/2022 Sex and Gender Information Value Date Recorded Sex Assigned at Male 06/02/2020 10:20 AM EST Legal Sex Male 10:13 AM EDT Gender Identity Male 06/02/2020 10:20 AM EST Sexual Orientation Not on file Last Filed Vital Signs Vital Sign Reading Time Taken Comments Blood Pressure 131/62 02/07/2024 12:45 PM EST Pulse 68 02/07/2024 12:45 PM EST Temperature 36.6 C (97.8 F) 02/07/2024 9:40 AM EST Respiratory Rate 16 02/07/2024 12:4 5 PM EST Oxygen Saturation 97% 02/07/2024 12: 45 PM EST Inhaled Oxygen Concentration - - Weight 105.9 kg (233 lb 7.5 oz) 05/02/2023 2:08 PM EST Height 185.4 cm (6' 1 ) 05/02/2023 2:08 PM EST Body Mass Index 30.8 05/02/2023 2:08 PM EST Plan of Treatment Upcoming Encounters Date Type Department Care Team (Late st Contact Info) Description 12/16/2024 7:45 AM EDT Office Visit [facility] [address] [place] [address] [place] [address] lab 01/20/2025 7:45 AM EDT Office Visit [facility] [address] [place] [address] [place] [address] lab 02/17/2025 7:45 AM EST Office Visit [facility] [address] [place] [address] [place] [address] lab 03/17/2025 7:45 AM EST Office Visit [facility] [address] [place] [address] [place] [address] lab Health Maintenance Due Date Last Done Comments Abdominal Aortic Aneurysm Screening 1959 Annual PCP Team Chronic Dise ase Visit 1977 Anxiety Screening 1977 Depression Screening 1977 Shingrix Vaccine (1 of 2) 1978 CT Colonography 2004 Cologuard (FIT-DNA) 2004 Fecal Occult Blood 2004 Sigmoidoscopy 2004 RSV Vaccine (1 - Risk 60-74 years 1-dose series) 2019 Pneumococcal Vaccine: 50+ (2 of 2 - PPSV23, PCV20, or PCV21) 11/05/2019 09/10/2019 Lung Cancer Screening 12/29/2022 12/29/2021 , 06/18/2020, 10/07/2019, Additional history exists Medicare Advantage Annual We [facility] Visit 04/03/2024 Advance Directive Discussion 2024 Influenza Vaccine (#1) 2024 , 01/14/2021, 03/02/2020, Additional history exists Colonoscopy 04/23/2025 04/23/2020 Colorectal Cancer Screening 04/23/2025 LDL Cholesterol 08/23/2025 08/23/2024, 05/04, 04/22/2024, Additional history exists Diabetes Screening 11/19/2027 11/18/2024, 0 10/21/2024, 09/27/2024, Additional history exists Lipid Screening 08/23/2029 08/23/2024, 05/04, 04/22/2024, Additional history exists Prostate Cancer Screening Discussion 08/23/2029 08/23/2024, 05/22/2023, 04/21/2021, Additional history exists DTaP,Tdap,Td Vaccine (2 - Td or Tdap) 09/09/2029 09/10/2019 HIV Screening Completed 05/02/2022, 08/01, 05/30/2018 Hepatitis C Screening Completed 06/13/2022 , 05/02/2022, 05/02/2022, Additional history exists Medical Devices Implanted Type Area Caddy Device Identifier Shelf Expiration Date Model / Serial / Lot Lens Iol Ultrasert 20 - [id number] Implanted:10/01 at [facility] (Quantity not on file) Intraocular Lens Left: Eye [facility] 05/03/2021 [id number] 0 / [id number] / Lens Iol Ultrasert 19.5 - [id number] Implanted:09/2018 at [facility] (Quantity not on file) Intraocular Lens Right: Eye [facility] 07/01/2021 AU00T0.1 9.5 / [id number] / Mesh Srg Parietene Pp Macro [id number] X3 - [id number] Implanted:Qty: 1 on 09/11/2018 by Kulwinder Landry MD at [facility] Mesh [employer] 07/31/2022 [id number] / / [id number] Mesh Parietene Macroporous [id number] Surgical - [id number] Implanted:Qty: 1 on 03/04/2022 at [facility] Mesh Right: Abdomen [employer] 07/31/2026 [id number] 3 / / [id number] Aleyda In Right Lung Staple Lung Procedures Procedure Name Priority Date/Time Associated Diagnosis Comments TACROLIMUS/FK-506 BL Routine 11/18/2024 7:38 AM EDT Liver replaced by transplant (HCC) GGT BLD Routine 11/18/2024 7:38 AM EDT Liver replaced by transplant (HCC) COMPREHENSIVE METABOLIC PANEL Routine 11/18/2024 7:38 AM EDT Liver replaced by transplant (HCC) CBC + DIFF Routine 11/18/2024 7:38 AM EDT Liver replaced by transplant (HCC) TACROLIMUS/FK-506 BL Routine 10/21/2024 7:42 AM EDT Liver replaced by transplant (HCC) GGT BLD Routine 10/21/2024 7:42 AM EDT Liver replaced by transplant (HCC) COMPREHENSIVE METABOLIC PANEL Routine 10/21/2024 7:42 AM EDT Liver replaced by transplant (HCC) CBC + DIFF Routine 10/21/2024 7:42 AM EDT Liver replaced by transplant (HCC) TACROLIMUS/FK-506 BL Routine 09/27/2024 7:40 AM EDT Liver replaced by transplant (HCC) GGT BLD Routine 09/27/2024 7:40 AM EDT Liver replaced by transplant (HCC) COMPREHENSIVE METABOLIC PANEL Routine 09/27/2024 7:40 AM EDT Liver replaced by transplant (HCC) CBC + DIFF Routine 09/27/2024 7:40 AM EDT Liver replaced by transplant (HCC) TACROLIMUS/FK-506 BL Routine 09/13/2024 7:56 AM EDT Liver replaced by transplant (HCC) GGT BLD Routine 09/13/2024 7:56 AM EDT Liver replaced by transplant (HCC) COMPREHENSIVE METABOLIC PANEL Routine 09/13/2024 7:56 AM EDT Liver replaced by transplant (HCC) CBC + DIFF Routine 09/13/2024 7:56 AM EDT Liver replaced by transplant (HCC) HEMOGLOBIN A1C Routine 08/23/2024 8:00 AM EDT Other fatigue PROSTATE SPECIFIC ANTIGEN, FREE AND TOTAL Routine 08/23/2024 8:00 AM EDT Special screening for malignant neoplasm of prostate LIPID PANEL, NONFASTING Routine 08/23/2024 8:00 AM EDT Pure hypercholesterolemia TSH BLD Routine 08/23/2024 8:00 AM EDT Other fatigue T3 FREE BLD Routine 08/23/2024 8:00 AM EDT Other fatigue T4 FREE/FREE THYROX Routine 08/23/2024 8 :00 AM EDT Other fatigue TACROLIMUS/FK-506 BL Routine 08/23/2024 8:00 AM EDT Liver replaced by transplant (HCC) GGT BLD Routine 08/23/2024 8:00 AM EDT Liver replaced by transplant (HCC) COMPREHENSIVE METABOLIC PANEL Routine 08/23/2024 8:00 AM EDT Liver replaced by transplant (HCC) CBC + DIFF Routine 08/23/2024 8:00 AM EDT Liver replaced by transplant (HCC) HEPATITIS C VIRUS (HCV) RNA, QUANTITATIVE PCR, PLASMA/SERUM Routine 06/13/2022 7:44 AM EDT Exposure to hepatitis C HIV 1/2 COMBO WITH REFLEX TO DIFFERENTIATION STAT 05/02/2022 8:[address] CHEST WO IVCON Routine 12/29/2021 9:3 9 AM EDT Lung nodules COLONOSCOPY - DIAGNOSTIC 04/23/2020 10:59 AM EST from Last 3 Months or Most Recently Relevant to Health Maintenance Results * TACROLIMUS/FK-506 BL (11/18/2024 7:38 AM EDT) Only the most recent of5 resultswithin the time period is included. Tacrolimus/FK506 6.4 5.0 - 20.0 ng/mL 11/18/2024 11:03 PM EDT [facility] Comment:Individualized targe t levels for a given patient will depend on many factors (including the type of organ transplant, time since transplantation, concurrent medications, and other clinical factors), and should be assessed by those health care providers experienced in the management of immunosuppression. Reference ranges and high/low indicator flags are provided as general guidelines only. The treating physician must determine appropriate target levels/dosing based on the specific clinical situation. Test performed by chemiluminescent immunoassay using [employer] Al[employer] i. Blood BLOOD SPECIMEN / Unknown Venipuncture / Unknown 11/18/2024 7:38 AM EDT 11/18/2024 7:38 AM EDT us Rebecca Bailey [employer] Fin al Result [facility] [address] [place] [address], * (ABNORMAL) GGT (11/18/2024 7:38 AM EDT) Only the most recent of5 resultswithin the time period is included. GGT 246(H) 10 - 70 U/L 11/18/2024 5:02 PM EDT [facility] Blood BLOOD SPECIMEN / Unknown Venipuncture / Unknown 11/18/2024 7:38 AM EDT 11/18/2024 7:38 AM EDT us Rebecca Bailey [employer] Fin al Result [facility] [address] [place] [address], [place] * (ABNORMAL) COMPREHENSIVE METABOLIC PANEL (11/18/2024 7:38 AM EDT) Only the most recent of5 resultswithin the time period is included. Protein, Total 6.7 6.3 - 8.0 g/dL 11/18/2024 8:25 AM EDT [facility] Albumin 4.4 3.9 - 4.9 g/dL 11/18/2024 8:25 AM EDT [facility] Calcium, Total 9.9 8.5 - 10.2 mg/dL 11/18/2024 8:25 AM EDT [facility] Bilirubin, Total 0.5 0.2 - 1.3 mg/dL 11/18/2024 8:25 AM EDT [facility] Alkaline Phosphatase 147(H) 38 - 113 U/L 11/18/2024 8:25 AM EDT [facility] AST 55(H) 14 - 40 U/L 11/18/2024 8:25 AM EDT [facility] ALT 90(H) 10 - 54 U/L 11/18/2024 8:25 AM EDT [facility] Glucose 135(H) 74 - 99 mg/dL 11/18/2024 8:25 AM EDT [facility] Comment: The [place] Diabetes Association (ADA) provides guidance for cutoff values for fasting glucose and random glucose. The ADA defines fasting as no caloric intake for at least 8 hours. Fasting plasma glucose results between 100 to 125 mg/dL indicate increased risk for diabetes (prediabetes). Fasting plasma glucose results greater than or equal to 126 mg/dL meet the criteria for diagnosis of diabetes. In the absence of unequivocal hyperglycemia, results should be confirmed by repeat testing. In a patient with classic symptoms of hyperglycemia or hyperglycemic crisis, random plasma glucose results greater than or equal to 200 mg/dL meet the criteria for diagnosis of diabetes. Reference: Standards of Medical Care in Diabetes 2016, [place] Diabetes Association. Diabetes Care. 2016.39(Suppl 1). BUN 22 9 - 24 mg/dL 11/18/2024 8:25 AM EDT [facility] Creatinine 0.97 0.73 - 1.22 mg/dL 11/18/2024 8:25 AM EDT [facility] Sodium 140 136 - 144 mmol/L 11/18/2024 8:25 AM EDT [facility] Potassium 4.7 3.7 - 5.1 mmol/L 11/18/2024 8:25 AM EDT [facility] Chloride 104 98 - 107 mmol/L 11/18/2024 8:25 AM T [facility] CO2 26 22 - 30 mmol/L 11/18/2024 8:25 AM EDT [facility] Anion Gap 10 8 - 15 mmol/L 11/18/2024 8:25 AM T [facility] Estimated Glomerular Filtration Rate 87 >=60 mL/min/1. 73m 11/18/2024 8:25 AM [facility] Comment:Estimated Glomerular Filtration Rate (eGFR) is calculated using the 2020 CKD-EPI creatinine equation. This equation utilizes serum creatinine, sex, and age as parameters. The creatinine assay has traceable calibration to isotope dilution- mass spectrometry. Refer to KDIGO guidelines for clinical interpretation. In patients with unstable renal function, e.g. those with acute kidney injury, the eGFR may not accurately reflect actual GFR. Blood BLOOD SPECIMEN / Unknown Venipuncture / Unknown 11/18/2024 7:38 AM EDT 11/18/2024 7:38 AM EDT us Rebecca Bailey [employer] Fin al Result [facility] [address] [place] [address] * (ABNORMAL) COMPLETE BLOOD COUNT AND DIFFERENTIAL (11/18/2024 7:38 AM EDT) Only the most recent of5 resultswithin the time period is included. WBC 7.02 3.70 - 11.00 k/uL 11/18/2024 8:02 AM EDT [facility] RBC 4.96 4.20 - 6.00 m/uL 11/18/2024 8:02 AM EDT [facility] Hemoglobin 15.3 13.0 - 17.0 g/dL 11/18/2024 8:02 AM EDT [facility] Hematocrit 46.4 39.0 - 51.0 % 11/18/2024 8:02 AM EDT [facility] MCV 93.5 80.0 - 100.0 fL 11/18/2024 8:02 AM EDT [facility] MCH 30.8 26.0 - 34.0 pg 11/18/2024 8:02 AM EDT [facility] MCHC 33.0 30.5 - 36.0 g/dL 11/18/2024 8:02 AM EDT [facility] RDW-CV 13.0 11.5 - 15.0 % 11/18/2024 8:02 AM EDT [facility] Platelet Count 148(L) 150 - 400 k/uL 11/18/2024 8:02 AM EDT [facility] MPV 10.9 9.0 - 12.7 fL 11/18/2024 8:02 AM EDT [facility] Neutrophils % 76.2 % 11/18/2024 8:02 AM EDT [facility] Abs Neut 5.35 1.45 - 7.50 k/uL 11/18/2024 8:02 AM EDT [facility] Lymphocytes % 13.8 % 11/18/2024 8:02 AM EDT [facility] Abs Lymph 0.97(L) 1.00 - 4.00 k/uL 11/18/2024 8:02 AM EDT [facility] Monocytes % 7.1 % 11/18/2024 8:02 AM EDT [facility] Abs Menard 0.50 <0.87 k/uL 11/18/2024 8:02 AM EDT [facility] Eosinophils % 2.3 % 11/18/2024 8:02 AM EDT [facility] Abs Eosin 0.16 <0.46 k/uL 11/18/2024 8:02 AM EDT [facility] Basophils % 0.3 % 11/18/2024 8:02 AM EDT [facility] Abs Baso <0.03 <0.11 k/uL 11/18/2024 8:02 AM EDT [facility] Immature Granulocytes % 0.3 % 11/18/2024 8:02 AM EDT [facility] Abs Immature Gran <0.03 <0.10 k/uL 11/18/2024 8:02 AM EDT [facility] NRBC 0.0 /100 WBC 11/18/2024 8:02 AM EDT [facility] Absolute nRBC <0.01 <0.01 k/uL 11/18/2024 8:02 AM EDT [facility] Diff Type Auto 11/18/2024 8:02 AM EDT [facility] Blood BLOOD SPECIMEN / Unknown Venipuncture / Unknown 11/18/2024 7:38 AM EDT 11/18/2024 7:38 AM EDT us Rebecca Bailey [employer] Fin al Result [facility] [address] [place] [address] * (ABNORMAL) LIPID PANEL, NONFASTING (08/23/2024 8:00 AM EDT) [facility] Total Cholesterol, Nonfasting 117 <200 mg/dL 08/23/2024 6:15 PM [facility] Comment: <200 mg/dL, Desirable 200-239 mg/dL, Borderline high >239 mg/dL, High Triglycerides, Nonfasting 123 <150 mg/dL 08/23/2024 6:15 PM [facility] Comment: <150 mg/dL, Normal 150-199 mg/dL, Borderline high 200-499 mg/dL, High >499 mg/dL, Very high HDL Cholesterol, Nonfasting 32(L) >39 mg/dL 08/23/2024 6:15 PM [facility] Comment: 40-59 mg/dL, Acceptable >59 mg/dL, High: Negative risk factor for coronary heart disease <40 mg/dL, Low: Positive risk factor for coronary heart disease LDL Cholesterol Calculated, Nonfasting 63 <100 mg/dL 08/23/2024 6:15 PM [facility] Comment: <100 mg/dL, Optimal 100-129 mg/dL, Near optimal/above optimal 130-159 mg/dL, Borderline high 160-189 mg/dL, High >189 mg/dL, Very high Secondary prevention optimal LDL Cholesterol levels are recommended to be <70 mg/dL LDL cholesterol is calculated using the Escobedo-NIH equation. Non HDL Cholesterol, Nonfasting 85 <130 mg/dL 08/23/2024 6:15 PM [facility] Comment: <130 mg/dL, Optimal 130-159 mg/dL, Near optimal/above optimal 160-189 mg/dL, Borderline high 190-219 mg/dL, High >219 mg/dL, Very high Secondary prevention optimal non HDL Cholesterol levels are recommended to be <100 mg/dL VLDL Cholesterol, Nonfasting 18 <30 mg/dL 08/23/2024 6:15 PM [facility] Total Chol/HDL Ratio, Nonfasting 3.66 <5.10 mg/dL 08/23/2024 6:15 PM [facility] LDL/HDL Ratio, Nonfasting 1.97 <2.54 mg/dL 08/23/2024 6:15 PM EDT [facility] Comment: Reference: 1. National Cholesterol Education Program ATP III Guideline At-A-Glance Quick Desk Reference: National Heart, Lung, and Blood [place]. National Institutes of Health. 2001: NIH Publication No. 01-3305. 2. An International Atherosclerosis Society position paper: global recommendations for the management of dyslipidemia: executive summary, Atherosclerosis. 2014: 232(2):410-413. Blood BLOOD SPECIMEN / Unknown Venipuncture / Unknown 08/23/2024 8:00 AM EDT 08/23/2024 8:01 AM EDT us Washington Brooks MD LABORATORY Final Result Performing Organization Address City/[facility]/ZIP Co de Phone Number [facility] [address] [place] [address], [place] * THYROID STIMULATING HORMONE (08/23/2024 8:00 AM EDT) TSH 1.440 0.270 - 4.200 mIU/L 08/23/2024 5:56 PM EDT [facility] Blood BLOOD SPECIMEN / Unknown Venipuncture / Unknown 08/23/2024 8:00 AM EDT 08/23/2024 8:01 AM EDT us Washington Brooks MD LABORATORY Final Result Performing Organization Address City/[facility]/ZIP Co de Phone Number [facility] [address] [place] [address], [place] * T4 FREE/FREE THYROXINE (08/23/2024 8:00 AM EDT) Free T4 1.2 0.9 - 1.7 ng/dL 08/23/2024 6:29 PM EDT [facility] Blood BLOOD SPECIMEN / Unknown Venipuncture / Unknown 08/23/2024 8:00 AM EDT 08/23/2024 8:01 AM EDT us Washington Brooks MD LABORATORY Final Result [facility] [address] [facility] [address] [address], [place] * T3, FREE (08/23/2024 8:00 AM EDT) Free T3 3.5 2.3 - 4.1 pg/mL 08/23/2024 6:29 PM EDT [facility] Blood BLOOD SPECIMEN / Unknown Venipuncture / Unknown 08/23/2024 8:00 AM EDT 08/23/2024 8:01 AM EDT us Washington Brooks MD LABORATORY Final Result Performing Organization Address [facility] Co de Phone Number [facility] [address] [address], [place] * PROSTATE SPECIFIC ANTIGEN, FREE AND TOTAL (08/23/2024 8:00 AM EDT) PSA 1.71 <2.60 ng/mL 08/23/2024 6:29 PM EDT [facility] Comment:Total PSA test metho dology used is the Electrochemiluminescence Immunoassay by [employer]. Total PSA values by differing methodologies cannot be interchanged. PSA, Percent Free 40 % 025 6:29 PM EDT [facility] Comment: Total and free PSA test methodology used is the Electrochemiluminescence Immunoassay by [employer]. Total or free PSA values by differing methodologies cannot be interchanged. The below table lists the probability of finding prostate cancer upon needle biopsy, for men 50 years or older and total PSA concentrations from 4.0-10.0 ng/mL. Results should be interpreted within the broader clinical context. Free PSA(%) 50-59 years 60-69 years >69 years <11 49.2% 57.5% 64.5% 11-18 26.9% 33.9% 40.8% 19-25 18.3% 23.9% 29.7% >25 9.1% 12.2% 15.8% Blood BLOOD SPECIMEN / Unknown Venipuncture / Unknown 08/23/2024 8:00 AM EDT 08/23/2024 8:01 AM EDT Washington Brooks MD LABORATORY Final Result Performing Organization Address [facility] Co de Phone Number [facility] [address] [address], [place] * HEMOGLOBIN A1C (08/23/2024 8:00 AM EDT) Pathologist [facility] Hemoglobin A1C 5.1 4.3 - 5.6 % 08/23/2024 7:02 PM EDT [facility] Comment:[place] [employer] sociation guidelines indicate that patients with HgbA1c in the range 5.7-6.4% are at increased risk for development of diabetes, and intervention by lifestyle modification may be beneficial. HgbA1c greater or equal to 6.5% is considered diagnostic of diabetes. Estimated Average Glucose 100 mg/dL 08/23/2024 7:02 PM EDT [facility] Comment:eAG: (Estimated aver age glucose) is a calculated value from HgbA1c and is employment program representative of the average blood glucose level in the last 2-3 month period. Blood BLOOD SPECIMEN / Unknown Venipuncture / Unknown 08/23/2024 8:00 AM EDT 08/23/2024 8:01 AM EDT us Washington Brooks MD LABORATORY Final Result Performing Organization Address City/[facility] Co de Phone Number [facility] [address] [place] [id number], [place] * HCV QUANT RNA BY PCR (06/13/2022 7:44 AM EDT) [facility] HCV RNA HCV RNA not detected by PCR. HCV RNA not detected by PCR. [facility] [address] 06/14/2022 3:50 AM EDT [facility] Blood BLOOD SPECIMEN / Unknown Venipuncture / Unknown 06/13/2022 7:44 AM EDT 06/13/2022 7:44 AM EDT Narrative [facility] - 06/14/2022 3:50 AM EDT The Linear Range of this assay is 15 IU/ml to 100,000,000 IU/ml us Rebecca Bailey [employer] Fin al Result Performing Organization Address [facility]/ZIP Co de Phone Number [facility] [address] [place] [address], [place] * HIV 1 2 COMBO(AG/AB),WITH REFLEX TO DIFFERENTIATION (05/02/2022 8:30 PM EST) HIV 12 Combo (Ag/Ab) Nonreactive Nonreactive 05/03/2022 10:54 AM EST [facility] HIV-1/2 AB (Confirmatory) 05/03/2022 10:54 AM EST [facility] Comment:Test not indicated. HIV Interpretation 05/03/2022 10:54 AM EST [facility] Comment: No evidence of HIV-1 or HIV-2 infection. Should recent infection be suspected, repeat testing may be considered 2-3 weeks after this draw. [place] Rev. Code 3701.243(E): This information has been disclosed to you from confidential records protected from disclosure by state law. You shall make no further disclosure of this information without the specific, written, and informed release of the individual to whom it pertains or as otherwise permitted by state law. A general authorization for the release of medical or other information is not sufficient for the purpose of the release of HIV test results or diagnoses. Blood BLOOD SPECIMEN / Unknown Venipuncture / Unknown 05/02/2022 8:30 PM EST 05/02/2022 8:42 PM EST us Marlo Alvarado MD LABORATORY Corrine l Result [facility] [address] [place] [id number], [place] * CT CHEST WO IVCON (12/29/2021 9:39 AM EDT) Anatomical Region Laterality Modality Chest Computed Tomogra phy 12/29/2021 9:39 AM EDT Impressions 12/29/2021 4:16 PM EDT IMPRESSION: 1. Small (5 mm or less) bilateral pulmonary nodules are stable in size since 10/07/2019, likely benign given small size and greater than 2 years of stability. No new or enlarging pulmonary nodule. 2. Unchanged mild to moderate severity upper lobe predominant centrilobular and bullous emphysema. 3. Interval development of nonspecific ground-glass opacities and/or mosaic attenuation in the right lower lobe since the prior chest CT dated 06/18/2020. These findings may be due to asymmetric pulmonary edema, infectious/inflammatory in etiology, or secondary to smoking-related interstitial lung disease. Attention on follow-up is recommended. 4. Cirrhotic liver morphology. Splenomegaly. Cholelithiasis. Mild ascites in the upper abdomen has decreased compared to the prior abdominal CT from 04/30/2021. Janitor Custodian: JADE Transcribe Date/Time: Dec 29 2021 3:49P Dictated by : BJ LIANG MD This examination was interpreted and the report reviewed and electronically signed by: BJ LIANG MD on Dec 29 2021 4:14PM EST Narrative 12/29/2021 4:16 PM EDT * * *Final Report* * * DATE OF EXAM: Dec 29 2021 9:39[place] [facility] [place] IVCON / PROCEDURE REASON: Lung nodules * * * * Physician Interpretation * * * * EXAMINATION: CHEST CT WITHOUT CONTRAST CLINICAL HISTORY: 61-year-old male reported former smoker with history of cirrhosis and pulmonary nodules. Technique: Spiral CT acquisition of the chest from the thoracic inlet to the upper abdomen without contrast. MQ: CTCWO_6 CT Radiation dose: Integrated Dose-length product (DLP) for this visit = 448 mGy*cm CT Dose Reduction Employed: Automated exposure control (AEC) Comparison: Chest CT dated 06/18/2020 and 12/13/2019; abdominal CT dated 04/30/2021 RESULT: Limitations: None. Lines, tubes, and devices: None. Lung parenchyma and airways: There is mild to moderate severity upper lobe predominant centrilobular emphysema. Bullous changes present at the lung apices. A staple line at the right lung apex is suggestive of either prior bullectomy or wedge resection. Surgical material along the lateral margin of the right upper lobe, image 92 is unchanged. Diffuse bronchial wall thickening is present. As nonspecific groundglass opacity/mosaic attenuation in the right lower lobe, for example seen on image 149 which appears new. No focal consolidation. Scattered pulmonary nodules remain unchanged. For reference a 4 mm medial right upper lobe nodule, image 103; a 5 mm left lower lobe nodule, image 133; a 2 mm left lower lobe nodule, image 139; and a 2 mm left lower lobe nodule, image 172, remain unchanged since 10/07/2019. No new or enlarging pulmonary nodule. The central airways are patent without suspicious endobronchial lesion. Debris along the right margin of the trachea, image 49 is new since the prior chest CT, most consistent with mucous/secretions. Pleural space: No pleural effusion, pleural thickening, or pneumothorax. Lower neck, lymph nodes, and mediastinum: The imaged thyroid gland is unremarkable. No supraclavicular or axillary lymphadenopathy. No enlarged mediastinal or hilar lymph nodes within limitations of this noncontrast exam. The esophagus is nondilated. Heart, pericardium, and thoracic vessels: There is mild atherosclerosis of the thoracic aorta which is normal in caliber. The main pulmonary artery is normal in caliber. Mild to moderate severity scattered coronary artery atherosclerotic calcifications are present however, this exam is not optimized for coronary artery assessment. Bones and soft tissues: No destructive lytic or blastic bone lesion. A small sclerotic density in the T5 vertebral body is probably a bone island. A compression deformity of the L1 vertebral body appears unchanged compared to the prior abdominal CT from 04/30/2021 and is therefore chronic. Symmetric bilateral gynecomastia. Upper abdomen: There is surface nodularity of the liver, consistent with cirrhosis. The liver parenchyma is mildly heterogeneous without a discrete lesion identified on this noncontrast exam. The spleen is enlarged measuring 18 cm in AP dimension. A calcified gallstone is noted in the gallbladder. Imaged portions of the pancreas, adrenal glands, and kidneys are unremarkable. There is mild ascites in the upper abdomen, decreased compared to the prior abdominal CT from 04/30/2021. Mild stranding in the upper abdominal mesenteric fat is unchanged. Mild atherosclerosis of the imaged proximal abdominal aorta. Apparent narrowing of the distal stomach, image 230, is likely due to nondistention. Homeopathic Doctor (topogram) images: No additional findings. Procedure Note Provider, [facility] [place] - 12/29/2021 * * *Final Report* * * DATE OF EXAM: Dec 29 2021 9:39AM [facility] [place] CHEST WO IVCON / PROCEDURE REASON: Lung nodules * * * * Physician Interpretation * * * * EXAMINATION: CHEST CT WITHOUT CONTRAST CLINICAL HISTORY: 61-year-old male reported former smoker with history of cirrhosis and pulmonary nodules. Technique: Spiral CT acquisition of the chest from the thoracic inlet to the upper abdomen without contrast. MQ: CTCWO_6 CT Radiation dose: Integrated Dose-length product (DLP) for this visit = 448 mGy*cm CT Dose Reduction Employed: Automated exposure control (AEC) Comparison: Chest CT dated 06/18/2020 and 12/13/2019; abdominal CT dated 04/30/2021 RESULT: Limitations: None. Lines, tubes, and devices: None. Lung parenchyma and airways: There is mild to moderate severity upper lobe predominant centrilobular emphysema. Bullous changes present at the lung apices. A staple line at the right lung apex is suggestive of either prior bullectomy or wedge resection. Surgical material along the lateral margin of the right upper lobe, image 92 is unchanged. Diffuse bronchial wall thickening is present. As nonspecific groundglass opacity/mosaic attenuation in the right lower lobe, for example seen on image 149 which appears new. No focal consolidation. Scattered pulmonary nodules remain unchanged. For reference a 4 mm medial right upper lobe nodule, image 103; a 5 mm left lower lobe nodule, image 133; a 2 mm left lower lobe nodule, image 139; and a 2 mm left lower lobe nodule, image 172, remain unchanged since 10/07/2019. No new or enlarging pulmonary nodule. The central airways are patent without suspicious endobronchial lesion. Debris along the right margin of the trachea, image 49 is new since the prior chest CT, most consistent with mucous/secretions. Pleural space: No pleural effusion, pleural thickening, orpneumothorax. Lower neck, lymph nodes, and mediastinum: The imaged thyroid gland is unremarkable. No supraclavicular or axillary lymphadenopathy. No enlarged mediastinal or hilar lymph nodes within limitations of this noncontrast exam. The esophagus is nondilated. Heart, pericardium, and thoracic vessels: There is mild atherosclerosis of the thoracic aorta which is normal in caliber. The main pulmonary artery is normal in caliber. Mild to moderate severity scattered coronary artery atherosclerotic calcifications are present however, this exam is not optimized for coronary artery assessment. Bones and soft tissues: No destructive lytic or blastic bone lesion. A small sclerotic density in the T5 vertebral body is probably a bone island. A compression deformity of the L1 vertebral body appears unchanged compared to the prior abdominal CT from 04/30/2021 and is therefore chronic. Symmetric bilateral gynecomastia. Upper abdomen: There is surface nodularity of the liver, consistent with cirrhosis. The liver parenchyma is mildly heterogeneous without a discrete lesion identified on this noncontrast exam. The spleen is enlarged measuring 18 cm in AP dimension. A calcified gallstone is noted in the gallbladder. Imaged portions of the pancreas, adrenal glands, and kidneys are unremarkable. There is mild ascites in the upper abdomen, decreased compared to the prior abdominal CT from 04/30/2021. Mild stranding in the upper abdominal mesenteric fat is unchanged. Mild atherosclerosis of the imaged proximal abdominal aorta. Apparent narrowing of the distal stomach, image 230, is likely due to nondistention. Homeopathic Doctor (topogram) images: No additional findings. IMPRESSION IMPRESSION: 1. Small (5 mm or less) bilateral pulmonary nodules are stable in size since 10/07/2019, likely benign given small size and greater than 2 years of stability. No new or enlarging pulmonary nodule. 2. Unchanged mild to moderate severity upper lobe predominant centrilobular and bullous emphysema. 3. Interval development of nonspecific ground-glass opacities and/or mosaic attenuation in the right lower lobe since the prior chest CT dated 06/18/2020. These findings may be due to asymmetric pulmonary edema, infectious/inflammatory in etiology, or secondary to smoking-related interstitial lung disease. Attention on follow-up is recommended. 4. Cirrhotic liver morphology. Splenomegaly. Cholelithiasis. Mild ascites in the upper abdomen has decreased compared to the prior abdominal CT from 04/30/2021. Janitor Custodian: PSCB Transcribe Date/Time: Dec 29 2021 3:49P Dictated by : BJ LIANG MD This examination was interpreted and the report reviewed and electronically signed by: BJ LIANG MD on Dec 29 2021 4:14PM EST us Dayna Purdy MD CT-[facility] Final R esult * COLONOSCOPY - DIAGNOSTIC (04/23/2020 10:59 AM EST) [employer] Q3 Patient Name: Washington Rodriguez Procedure Date: 04/23/2020 10:59 AM Date of : 1960 Admit Type: Outpatient Age: 59 Gender: Male Note Status: Finalized Attending MD: Lavell Pierce MD Procedure: Colonoscopy Indications: Screening for colorectal malignant neoplasm Providers: Lavell Pierce MD, Buster Jiménez MD (Fellow) Patient Profile: This is a 59 year old male. Refer to note in patient chart for documentation of history and physical. Last Colonoscopy: 5 years ago. Referring Physician: Medicines: Monitored Anesthesia Care Complications: No immediate complications. Requesting Provider: Procedure: Pre-Anesthesia Assessment: - Prior to the procedure, a History and Physical was performed, and patient medications, allergies and sensitivities were reviewed. The patient's tolerance of previous anesthesia was reviewed. - ASA Grade Assessment: II - A patient with mild systemic disease. After I obtained informed consent, the scope was passed under direct vision. Throughout the procedure, the patient's blood pressure, pulse, and oxygen saturations were monitored continuously. The Colonoscope was introduced through the anus and advanced to the cecum, identified by appendiceal orifice and ileocecal valve. The colonoscopy was performed without difficulty. The patient tolerated the procedure well. The quality of the bowel preparation was excellent. The ileocecal valve, appendiceal orifice, and rectum were photographed. Moderate Sedation: MAC anesthesia was administered by the anesthesia team. Findings: The perianal and digital rectal examinations were normal. A 3 mm polyp was found in the ascending colon. The polyp was sessile. The polyp was removed with a cold biopsy forceps. Resection and retrieval were complete. There was immidiate bleeding post-polypectomy and to stop bleeding post-intervention , one hemostatic clip was successfully placed (MR conditional). There was no bleeding at the end of the procedure. Two sessile polyps were found in the transverse colon. The polyps were 5 to 7 mm in size. These polyps were removed with a cold snare. Resection and retrieval were complete. Hypertrophic anal papilla. No additional abnormalities were found on retroflexion. Impression: - One 3 mm polyp in the ascending colon, removed with a cold biopsy forceps. Resected and retrieved. Clip (MR conditional) was placed. - Two 3 to 7 mm polyps in the transverse colon and in the ascending colon, removed with a cold snare. Resected and retrieved. Estimated Blood Loss: Estimated blood loss: none. Recommendation: - Discharge patient to home. - Resume previous diet today. - Continue present medications. - Await pathology results. - Repeat colonoscopy in 5 years for surveillance based on pathology results. - Return to referring physician as previously scheduled. - Patient has a contact number available for emergencies. The signs and symptoms of potential delayed complications were discussed with the patient. Return to normal activities tomorrow. Written discharge instructions were provided to the patient. Procedure Code(s): --- Professional --- 30618 Diagnosis Code(s): --- Professional --- Z12.11 K63.5 CPT copyright 2019 [place] [employer]. All rights reserved. Attending Participation: I personally performed the entire procedure. Scope In: 11:26:41 AM Scope Out: 11:45:[address] Lavell Pierce MD, MPH Lavell Pierce MD 04/23/2020 11:50:30 AM This report has been signed electronically by Lavell Pierce MD Number of Addenda: 0 Note Initiated On: 04/23/2020 10:59 AM [facility] Anatomical Region Laterality Modality Other 04/23/2020 10:5 9 AM EST Cc Provider [facility] Final Result from Last 3 Months or Most Recently Relevant to Health Maintenance [place] Advance Directives Documents on File Type Date Recorded Patient Flight Test Data Acquisition Technician Expl anation Advance Directive(s) 08/31/2018 1:17 PM Care Teams Kettle Tender Relationship Specialty Start Date End Date Washington Brooks MD PCP - General Family Medicine 10/13/14 Hua Marquez Jr., DO [address] [address] Referring Gastroenterology 05/25/18 Ramirez Nieto MD [address] [place] [address] Primary Staff Physician Cardiology 12/31/20 Kat Leal, [facility] [address] [place] [address] Transplant Center 06/10/22 Kaiser Bucio [address] [facility] [address] [place] [address] Referring Neurosurgery 11/07/22 [facility] 05/09/22
--- OUTSIDE RECORDS SUMMARY | 2024-11-22 10:12 | XMS_ITS | Encounter Summary ---
Author Organization [facility] Address [address] [place] [address] Care Team Providers Care Building Service Worker Name Role Phone Washington Brooks MD Primary Care Provider [phone] Jimmy Escalante DO, David L Unavailable +[phone] Ramirez Nieto MD Unavailable + [phone] Kat Leal RN Unavailable Unavailable Kaiser Bucio Unavailable Source Comments In the event this information is protected by the Federal Confidentiality of Alcohol and Drug AbusePatient Records regulations: The Federal rules restrict any use of the information to criminally investigate or prosecute any alcohol or drug abuse patient.[facility] Encounter Details Date Type Department Care Team (Late st Contact Info) Description 11/01/2024 Patient Msg Transplant Center [address] [phone] Kat Leal, COSMO [address] [address] Important program update Social History Tobacco Use Types Packs/Day Years Used Date Smoking Tobacco: Some Days Cigarettes 2 41 Started: 1979; Last attempted to quit: 2019 Smokeless Tobacco: Never Alcohol Use Standard Drinks/Week Comments Not Currently [...] is lower risk 2 08/03/2022 Data from: https://www.neighborhoodatlas.medicine.[facility]/. Last address used for calculation [address] 08/03/2022 Sex and Gender Information Value Date Recorded Sex Assigned at Male 06/02/2020 10:20 AM EST Legal Sex Male 10:13 AM EDT Gender Identity Male 06/02/2020 10:20 AM EST Sexual Orientation Not on file documented as of this encounter Functional Status * Are you deaf or do you have serious difficulty hearing? Answer Date of Assessment Author No 03/05/2022 10:37 AM Holden Garvey RN * Are you blind or do you have serious difficulty seeing, even when wearing glasses? Answer Date of Assessment Author No 03/05/2022 10:37 AM Holden Garvey RN * Do you have serious difficulty walking or climbing stairs? Answer Date of Assessment Author No 03/05/2022 10:37 AM Holden Garvey RN * Do you have difficulty dressing or bathing? Answer Date of Assessment Author No 03/05/2022 10:37 AM Holden Garvey RN * Because of a physical, mental, or emotional condition, do you have difficulty doing errands alone such as visiting a doctor's office or shopping? Answer Date of Assessment Author No 03/05/2022 10:37 AM Holden Garvey RN documented as of this encounter Mental Status * Because of a physical, mental, or emotional condition, do you have serious difficulty concentrating, remembering, or making decisions? Answer Entry Date Author No 03/05/2022 10:37 AM Holden Garvey RN documented in this encounter Plan of Treatment Upcoming Encounters Date Type Department Care Team (Late st Contact Info) Description 12/16/2024 7:45 AM EDT Office Visit [facility] [address] [place] [place] [address] lab 01/20/2025 7:45 AM EDT Office Visit [facility] [address] [place] [place] [address] lab 02/17/2025 7:45 AM EST Office Visit [facility] [address] [place] [address] lab 03/17/2025 7:45 AM EST Office Visit [facility] [address] [place] [address] lab documented as of this encounter Visit Diagnoses Not on filedocumented in this encounter Care Teams Building Service Worker Relationship Specialty Start Date End Date Washington Brooks MD PCP - General Family Medicine 10/13/14 Hua Marquez Jr., DO [address] [address] Referring Gastroenterology 05/25/18 Ramirez Nieto MD [address] [place] [address] Primary Staff Physician Cardiology 12/31/20 Kat Leal, COSMO [facility] [address] [place] [address] Transplant Center 06/10/22 Kaiser Bucio [address] [phone] Referring Neurosurgery 11/07/22 [facility] 05/09/22 documented as of this encounter
--- OUTSIDE RECORDS SUMMARY | 2024-11-22 10:12 | XMS_ITS | Encounter Summary ---
Author Organization [facility] Address [facility] [place] [address] Care Team Providers Care Ebd Special Education Teacher Name Role Phone Washington Brooks MD Primary Care Provider [phone] Jimmy Escalante DO, David L Unavailable +[phone] Ramirez Nieto MD Unavailable + [phone] Kat Leal RN Unavailable Unavailable Kaiser Bucio Unavailable Source Comments In the event this information is protected by the Federal Confidentiality of Alcohol and Drug AbusePatient Records regulations: The Federal rules restrict any use of the information to criminally investigate or prosecute any alcohol or drug abuse patient.[facility] Encounter Details Date Type Department Care Team (Late st Contact Info) Description 12/31/2020 Patient Msg Gastroenterology [address] [phone] [place] [address] [place] [address] scan Social History Tobacco Use Types Packs/Day Years Used Date Smoking Tobacco: Some Days Cigarettes 2 41.8 Started: 05/30/1977; Last attempted to quit: 04/2019 Smokeless Tobacco: Former Snuff Comments:Quit April 0 Alcohol Use Standard Drinks/Week Comments No 0 (1 standard drink = 0.6 oz [...] N ot on file 03/08/2020 Data from: https://www.neighborhoodatlas.medicine.[facility].edu/. Last address used for calculation Not [...] have Coronavirus / COVID-19? No / Unsure 12/30/2020 12:29 PM EDT documented as of this encounter Functional [...] Description 12/16/2024 7:45 AM EDT Office Visit [facility] [address] [place] [address] lab 01/20/2025 7:45 AM EDT Office Visit [facility] [address] [place] [address] lab 02/17/2025 7:45 AM EST Office Visit [facility] [address] [place] [address] lab 03/17/2025 7:45 AM EST Office Visit [facility] [address] [place] [place] [address] lab documented as of this encounter Visit Diagnoses Not on filedocumented in this encounter Additional Health Concerns Infection Onset Date Last Indicated Resolved Time COVID-19 Rule-Out 05/06/2021 05/06/2021 05/26/2021 8:51 PM EST COVID-19 Rule-Out 11/12/2021 11/13/2021 11/13/2021 8:39 AM EDT COVID-19 Rule-Out 05/02/2022 05/02/2022 05/02/2022 8:19 PM EST documented as of this encounter Care Teams Ebd Special Education Teacher Relationship Specialty Start Date End Date Washington Brooks MD PCP - General Family Medicine 10/13/14 Hua Marquez Jr., DO [address] [address] [place] [address] Referring Gastroenterology 05/25/18 Ramirez Nieto MD [address] [place], [place] [phone] Primary Staff Physician Cardiology 12/31/20 Kat Leal, COSMO [facility] [address] [place] [address] Transplant Center 06/10/22 Kaiser Bucio [address] [phone] Referring Neurosurgery 11/07/22 [facility] 05/09/22 documented as of this encounter
--- OUTSIDE RECORDS SUMMARY | 2024-11-22 10:12 | XMS_ITS | Encounter Summary ---
Author Organization [facility] Address [address] [place] [address] Care Team Providers Care Electroencephalographic Technologist Name Role Phone Washington Brooks MD Primary Care Provider [phone] Jimmy Escalante DO, David L Unavailable [phone] Ramirez Nieto MD Unavailable + [phone] Kat Leal RN Unavailable Unavailable Kaiser Bucio Unavailable Source Comments In the event this information is protected by the Federal Confidentiality of Alcohol and Drug AbusePatient Records regulations: The Federal rules restrict any use of the information to criminally investigate or prosecute any alcohol or drug abuse patient.[facility] Encounter Details Date Type Department Care Team (Late st Contact Info) Description 09/11/2018 [facility] [address] [place], [place] [phone] Kulwinder Landry MD [address] [place] [address] Social History Tobacco Use Types Packs/Day Years Used Date Smoking Tobacco: Every Day Cigarettes 1 47.5 Started: 05/30/1977 Smokeless Tobacco: Never Alcohol Use Standard Drinks/Week Comments No 0 (1 standard drink = 0.6 oz pur e alcohol) Sex and Gender Information Value Date Recorded Sex Assigned at Male 06/02/2020 10:20 AM EST Legal Sex Male 10:13 AM EDT Gender Identity Male 06/02/2020 10:20 AM EST Sexual Orientation Not on file documented as of this encounter Plan of Treatment Upcoming Encounters Date Type Department Care Team (Late st Contact Info) Description 12/16/2024 7:45 AM EDT Office Visit [facility] [address] [place] [address] lab 01/20/2025 7:45 AM EDT Office Visit [facility] [address] [place] [address] lab 02/17/2025 7:45 AM EST Office Visit [facility] [address] [place] [address] lab 03/17/2025 7:45 AM EST Office Visit [facility] [address] [place] [address] lab documented as of this encounter Visit Diagnoses Not on filedocumented in this encounter Additional Health Concerns Infection Onset Date Last Indicated Resolved Time COVID-19 Rule-Out 05/06/2021 05/06/2021 05/26/2021 8:51 PM EST COVID-19 Rule-Out 11/12/2021 11/13/2021 11/13/2021 8:39 AM EDT COVID-19 Rule-Out 05/02/2022 05/02/2022 05/02/2022 8:19 PM EST documented as of this encounter Care Teams Electroencephalographic Technologist Relationship Specialty Start Date End Date Washington Brooks MD PCP - General Family Medicine 10/13/14 Hua Marquez Jr., 703 [facility] [address] [place] [address] Referring Gastroenterology 05/25/18 Ramirez Nieto MD [address] [place] [address] Primary Staff Physician Cardiology 12/31/20 Kat Leal, COSMO [facility] [address] [place] [address] Transplant Center 06/10/22 Kaiser Bucio 703 [facility] [address] [place] [address] Referring Neurosurgery 11/07/22 [facility] 05/09/22 documented as of this encounter
--- OUTSIDE RECORDS SUMMARY | 2024-11-22 10:12 | XMS_ITS | Encounter Summary ---
Author Organization [facility] Address [address] [place] [address] Care Team Providers Care Ceo And Founder Name Role Phone Washington Brooks MD Primary Care Provider [phone] Jimmy Escalante DO, David L Unavailable [phone] Ramirez Nieto MD Unavailable + [phone] Kat Leal RN Unavailable Unavailable Kaiser Bucio Unavailable Source Comments In the event this information is protected by the Federal Confidentiality of Alcohol and Drug AbusePatient Records regulations: The Federal rules restrict any use of the information to criminally investigate or prosecute any alcohol or drug abuse patient.[facility] Encounter Details Date Type Department Care Team (Late st Contact Info) Description 09/22/2023 Patient Msg Transplant Center [address] [phone] Kat Leal, COSMO [address] [address] Out of office and October 04 hol Social History Tobacco Use Types Packs/Day Years [...] is lower risk 2 08/03/2022 Data from: https://www.neighborhoodatlas.[facility]/. Last address used for calculation [address] 08/03/2022 Sex and Gender Information Value Date [...] Assessment Author No 03/05/2022 10:37 AM Holden Gravey RN * Do you have difficulty dressing [...] Entry Date Author No 03/05/2022 10:37 AM oHlden Garvey RN documented in this encounter Plan of Treatment Upcoming Encounters Date Type Department Care Team (Late st Contact Info) Description 12/16/2024 7:45 AM EDT Office Visit [facility] [address] [place] [address] lab 01/20/2025 7:45 AM EDT Office Visit [facility] [address] [place] [place] [address] lab 02/17/2025 7:45 AM EST Office Visit [facility] [address] [place] [place] [address] lab 03/17/2025 7:45 AM EST Office Visit [facility] [address] [place] [place] [address] lab documented as of this encounter Visit Diagnoses Not on filedocumented in this encounter Care Teams Ceo And Founder Relationship Specialty Start Date End Date Washington Brooks MD PCP - General Family Medicine 10/13/14 Hua Marquez Jr., DO [address] [address] Referring Gastroenterology 05/25/18 Ramirez Nieto MD [address] [place] [address] Primary Staff Physician Cardiology 12/31/20 Kat Leal, COSMO [facility] [address] [place] [address] Transplant Center 06/10/22 Kaiser Bucio [address] [phone] Referring Neurosurgery 11/07/22 [facility] 05/09/22 documented as of this encounter
--- OUTSIDE RECORDS SUMMARY | 2024-11-22 10:12 | XMS_ITS | Encounter Summary ---
Author Organization [facility] Address [address] [place] [address] Care Team Providers Care Physician Coder Name Role Phone Washington Brooks MD Primary Care Provider [phone] Jimmy Escalante DO, David L Unavailable [phone] Ramirez Nieto MD Unavailable + [phone] Kat Leal RN Unavailable Unavailable Kaiser Bucio Unavailable Source Comments In the event this information is protected by the Federal Confidentiality of Alcohol and Drug AbusePatient Records regulations: The Federal rules restrict any use of the information to criminally investigate or prosecute any alcohol or drug abuse patient.[facility] Encounter Details Date Type Department Care Team (Late st Contact Info) Description 05/13/2022 Patient Msg Transplant Center [address] [phone] Kat Leal, COSMO [address] [address] Out of office notification Social History Tobacco Use Types Packs/Day Years [...] 0 05/17/2021 Area Deprivation Index Answer Date Dve rded National Score (1-100), lower number is lower ri sk 49 04/15/2022 State Score (1-10), lower number is lower risk N ot on file 04/15/2022 Data from: https://www.neighborhoodatlas.[facility]/. Last address used for calculation [address] 04/15/2022 Sex and Gender Information Value Date Recorded [...] Description 12/16/2024 7:45 AM EDT Office Visit [facility] [address] [place] [address] lab 01/20/2025 7:45 AM EDT Office Visit [facility] [address] [place] [address] lab 02/17/2025 7:45 AM EST Office Visit [facility] [address] [place] [address] lab 03/17/2025 7:45 AM EST Office Visit [facility] [address] [place] [address] lab documented as of this encounter Visit Diagnoses Not on filedocumented in this encounter Care Teams Physician Coder Relationship Specialty Start Date End Date Washington Brooks MD PCP - General Family Medicine 10/13/14 Hua Marquez Jr., DO [address] [address] Referring Gastroenterology 05/25/18 Ramirez Nieto MD [address] [place] [address] Primary Staff Physician Cardiology 12/31/20 Kat Leal, COSMO [facility] [address] [place] [address] Transplant Center 06/10/22 Kaiser Bucio [address] [phone] Referring Neurosurgery 11/07/22 [facility] 05/09/22 documented as of this encounter
--- OUTSIDE RECORDS SUMMARY | 2024-11-22 10:12 | XMS_ITS | Encounter Summary ---
Author Organization [facility] Address [address] [place] [address] Care Team Providers Care Pressroom Worker Name Role Phone Washington Brooks MD Primary Care Provider [phone] Jimmy Escalante DO, David L Unavailable [phone] Ramirez Nieto MD Unavailable + [phone] Kat Leal RN Unavailable Unavailable Kaiser Bucio Unavailable Source Comments In the event this information is protected by the Federal Confidentiality of Alcohol and Drug AbusePatient Records regulations: The Federal rules restrict any use of the information to criminally investigate or prosecute any alcohol or drug abuse patient.[facility] Encounter Details Date Type Department Care Team (Late st Contact Info) Description 06/19/2023 Patient Msg Transplant Center [address] [phone] Kat Leal, COSMO [address] [address] Follow up Social History Tobacco Use Types Packs/Day Years [...] is lower risk 2 08/03/2022 Data from: https://www.neighborhoodatlas.[facility]/. Last address used for calculation [address] 08/03/2022 Sex and Gender Information Value [...] Description 12/16/2024 7:45 AM EDT Office Visit [facility] [address] [place] [address] lab 01/20/2025 7:45 AM EDT Office Visit [facility] [address] [place] [address] lab 02/17/2025 7:45 AM EST Office Visit [facility] Laboratory [address] [place] [address] lab 03/17/2025 7:45 AM EST Office Visit [facility] Laboratory [address] [place] [address] lab documented as of this encounter Visit Diagnoses Not on filedocumented in this encounter Care Teams Pressroom Worker Relationship Specialty Start Date End Date Washington Brooks MD PCP - General Family Medicine 10/13/14 Hua Marquez Jr., DO [address] [address] Referring Gastroenterology 05/25/18 Ramirez Nieto MD [address] [place] [address] Primary Staff Physician Cardiology 12/31/20 Kat Leal, COSMO [facility] [address] [place] [address] Transplant Center 06/10/22 Kaiser Bucio [address] [phone] Referring Neurosurgery 11/07/22 [facility] 05/09/22 documented as of this encounter
--- OUTSIDE RECORDS SUMMARY | 2024-11-22 10:12 | XMS_ITS | Encounter Summary ---
Author Organization [facility] Address [address] [place] [address] Care Team Providers Care Photovoltaic Technician Name Role Phone Washington Brooks MD Primary Care Provider [phone] Jimmy Escalante DO, David L Unavailable [phone] Ramirez Nieto MD Unavailable + [phone] Kat Leal RN Unavailable Unavailable Kaiser Bucio Unavailable Source Comments In the event this information is protected by the Federal Confidentiality of Alcohol and Drug AbusePatient Records regulations: The Federal rules restrict any use of the information to criminally investigate or prosecute any alcohol or drug abuse patient.[facility] Encounter Details Date Type Department Care Team (Late st Contact Info) Description 01/11/2024 Patient Msg Transplant Center [address] [phone] Provider, [facility] Liver Transplant Night with [facility] - Virtual Event Social History Tobacco Use Types Packs/Day Years [...] is lower risk 2 08/03/2022 Data from: https://www.neighborhoodatlas.medicine.[facility]/. Last address used for calculation [address] 08/03/2022 Sex and Gender Information [...] Entry Date Author No 03/05/2022 10:37 AM EST Holden Ambrosio RN documented in this encounter Plan of Treatment Upcoming Encounters Date Type Department Care Team (Late st Contact Info) Description 12/16/2024 7:45 AM EDT Office Visit [facility] [address] [address] lab 01/20/2025 7:45 AM EDT Office Visit [facility] [address] [address] lab 02/17/2025 7:45 AM EST Office Visit [facility] [address] [address] lab 03/17/2025 7:45 AM EST Office Visit [facility] [address] [address] lab documented as of this encounter Visit Diagnoses Not on filedocumented in this encounter Care Teams Photovoltaic Technician Relationship Specialty Start Date End Date Washington Brooks MD PCP - General Family Medicine 10/13/14 Hua Marquez Jr., DO [address] [address] Referring Gastroenterology 05/25/18 Ramirez Nieto MD [address] [place] [address] Primary Staff Physician Cardiology 12/31/20 Kat Leal, COSMO [facility] [address] [place] [address] Transplant Center 06/10/22 Kaiser Bucio [address] [phone] Referring Neurosurgery 11/07/22 [facility] 05/09/22 documented as of this encounter
--- OUTSIDE RECORDS SUMMARY | 2024-11-22 10:12 | XMS_ITS | Encounter Summary ---
Author Organization [facility] Address [address] [place] [address] Care Team Providers Care Keg Raiser Name Role Phone Washington Brooks MD Primary Care Provider [phone] Jimmy Escalante DO, David L Unavailable [phone] Ramirez Nieto MD Unavailable + [phone] Kat Leal RN Unavailable Unavailable Kaiser Bucio Unavailable Source Comments In the event this information is protected by the Federal Confidentiality of Alcohol and Drug AbusePatient Records regulations: The Federal rules restrict any use of the information to criminally investigate or prosecute any alcohol or drug abuse patient.[facility] Encounter Details Date Type Department Care Team (Late st Contact Info) Description 06/27/2021 [place] [address] Provider, Ccf Questionnaire Submission Social History Tobacco Use Types Packs/Day Years [...] N ot on file 03/08/2020 Data from: https://www.neighborhoodatlas.medicine.[facility].edu/. Last address used for calculation Not [...] suspected to have Coronavirus/COVID-19? No / Unsure 06/29/2021 11:18 AM EDT documented as of this encounter [...] Description 12/16/2024 7:45 AM EDT Office Visit [facility] [address] [place] [address] lab 01/20/2025 7:45 AM EDT Office Visit [facility] [address] [place] [address] lab 02/17/2025 7:45 AM EST Office Visit [facility] [address] [facility] [address] [place] [address] lab 03/17/2025 7:45 AM EST Office Visit [facility] [address] [facility] [facility] [address] [place] [address] lab documented as of this encounter Visit Diagnoses Not on filedocumented in this encounter Additional Health Concerns Infection Onset Date Last Indicated Resolved Time COVID-19 Rule-Out 11/12/2021 11/13/2021 11/13/2021 8:39 AM EDT COVID-19 Rule-Out 05/02/2022 05/02/2022 05/02/2022 8:19 PM EST documented as of this encounter Care Teams Keg Raiser Relationship Specialty Start Date End Date Washington Brooks MD PCP - General Family Medicine 10/13/14 Hua Marquez Jr., [address] [address] Referring Gastroenterology 05/25/18 Ramirez Nieto MD [address] [place] [address] Primary Staff Physician Cardiology 12/31/20 Kat Leal, RN [facility] [address] [place] [address] Transplant Center 06/10/22 Kaiser Bucio [address] [phone] Referring Neurosurgery 11/07/22 [facility] 05/09/22 documented as of this encounter
--- OUTSIDE RECORDS SUMMARY | 2024-11-22 10:12 | XMS_ITS | Encounter Summary ---
Author Organization [facility] Address [address] [place] [address] Care Team Providers Care Ct Mri Technologist Name Role Phone Washington Brooks MD Primary Care Provider [phone] Jimmy Escalante DO, David L Unavailable +[phone] Ramirez Nieto MD Unavailable + [phone] Kat Leal RN Unavailable Unavailable Kaiser Bucio Unavailable Source Comments In the event this information is protected by the Federal Confidentiality of Alcohol and Drug AbusePatient Records regulations: The Federal rules restrict any use of the information to criminally investigate or prosecute any alcohol or drug abuse patient.[facility] Encounter Details Date Type Department Care Team (Late st Contact Info) Description 11/27/2023 Patient Msg Transplant Center [address] [phone] Kat Leal, COSMO [address] [address] Out of office 11/27-11/29 and Holiday Social History Tobacco Use Types Packs/Day Years [...] is lower risk 2 08/03/2022 Data from: https://www.neighborhoodatlas.medicine.[facility].edu/. Last address used for calculation [address] 08/03/2022 Sex and Gender Information Value [...] Description 12/16/2024 7:45 AM EDT Office Visit [facility] [address] [place] [address] lab 01/20/2025 7:45 AM EDT Office Visit [facility] [address] [place] [address] lab 02/17/2025 7:45 AM EST Office Visit [facility] [address] [place] [place] [address] lab 03/17/2025 7:45 AM EST Office Visit [facility] [address] [place] [address] lab documented as of this encounter Visit Diagnoses Not on filedocumented in this encounter Care Teams Ct Mri Technologist Relationship Specialty Start Date End Date Washington Brooks MD PCP - General Family Medicine 10/13/14 Hua Marquez Jr., DO [address] [address] Referring Gastroenterology 05/25/18 Ramirez Nieto MD [address] [place] [address] Primary Staff Physician Cardiology 12/31/20 Kat Leal, COSMO [facility] [address] [place] [address] Transplant Center 06/10/22 Kaiser Bucio [address] [address] Referring Neurosurgery 11/07/22 [facility] 05/09/22 documented as of this encounter
--- OUTSIDE RECORDS SUMMARY | 2024-11-22 10:12 | XMS_ITS | Encounter Summary ---
Author Organization [facility] Address [facility] [place] [address] Care Team Providers Care Director Of Emergency Nursing Name Role Phone Washington Brooks MD Primary Care Provider [phone] Jimmy Escalante DO, David L Unavailable [phone] Ramirez Nieto MD Unavailable + [phone] Kat Leal RN Unavailable Unavailable Kaiser Bucio Unavailable Source Comments In the event this information is protected by the Federal Confidentiality of Alcohol and Drug AbusePatient Records regulations: The Federal rules restrict any use of the information to criminally investigate or prosecute any alcohol or drug abuse patient.[facility] Encounter Details Date Type Department Care Team (Late st Contact Info) Description 10/11/2020 Patient Msg Gastroenterology [address] [phone] Dayna Purdy MD [address] [place] [address] Lab Results Social History Tobacco Use Types Packs/Day [...] N ot on file 03/08/2020 Data from: https://www.neighborhoodatlas.medicine.[facility].edu/. Last address used for calculation Not on [...] have Coronavirus / COVID-19? No / Unsure 10/07/2020 8:55 AM EDT documented as of this encounter [...] Description 12/16/2024 7:45 AM EDT Office Visit [facility] [address] [place] [place] [address] lab 01/20/2025 7:45 AM EDT Office Visit [facility] [address] [place] [address] lab 02/17/2025 7:45 AM EST Office Visit [facility] [address] [place] [place] [address] lab 03/17/2025 7:45 AM EST Office Visit [facility] [address] [place] [place] [address] lab documented as of this encounter Visit Diagnoses Not on filedocumented in this encounter Additional Health Concerns Infection Onset Date Last Indicated Resolved Time COVID-19 Rule-Out 05/06/2021 05/06/2021 05/26/2021 8:51 PM EST COVID-19 Rule-Out 11/12/2021 11/13/2021 11/13/2021 8:39 AM EDT COVID-19 Rule-Out 05/02/2022 05/02/2022 05/02/2022 8:19 PM EST documented as of this encounter Care Teams Director Of Emergency Nursing Relationship Specialty Start Date End Date Washington Brooks MD PCP - General Family Medicine 10/13/14 Hua Marquez Jr., DO [address] [address] [place] [address] Referring Gastroenterology 05/25/18 Ramirez Nieto MD [address] [place], [place] [id number] Primary Staff Physician Cardiology 12/31/20 Kat Leal, COSMO [facility] [address] [place] [address] Transplant Center 06/10/22 Kaiser Bucio [address] [address] Referring Neurosurgery 11/07/22 [facility] 05/09/22 documented as of this encounter
--- OUTSIDE RECORDS SUMMARY | 2024-11-22 10:12 | XMS_ITS | Encounter Summary ---
Author Organization [facility] Address [address] [place] [address] Care Team Providers Care Tire Center Manager Name Role Phone Washington Brooks MD Primary Care Provider [phone] Jimmy Escalante DO, David L Unavailable [phone] Ramirez Nieto MD Unavailable + [phone] Kat Leal RN Unavailable Unavailable Kaiser Bucio Unavailable Source Comments In the event this information is protected by the Federal Confidentiality of Alcohol and Drug AbusePatient Records regulations: The Federal rules restrict any use of the information to criminally investigate or prosecute any alcohol or drug abuse patient.[facility] Encounter Details Date Type Department Care Team (Late st Contact Info) Description 11/18/2024 Results Follow-Up Transplant Center [address] [phone] Kat Leal, COSMO [address] [address] Social History Tobacco Use Types Packs/Day Years [...] is lower risk 2 08/03/2022 Data from: https://www.neighborhoodatlas.[facility]/. Last address used for calculation [address] 08/03/2022 Sex and Gender Information Value [...] Holden Ambrosio RN documented in this encounter Miscellaneous Notes * Result Encounter Note - Kat Leal RN - 11/18/2024 3:41 PM EDT Results reviewed with Diane Brito CNP, no changes at this time, patient to repeat lab work in 1-2 weeks. Will continue to monitor labs. Kat Leal RN, BSN * Result Encounter Note - Kat Leal RN - 11/18/2024 8:17 AM EDT Lab work reviewed and is consistent with recent lab values. Will continue to monitor labs. Kat Leal RN, BSN Liver Disaster Director documented in this encounter Plan of Treatment Upcoming Encounters Date Type Department Care Team (Late st Contact Info) Description 12/16/2024 7:45 AM EDT Office Visit [facility] [address] [place] [address] lab 01/20/2025 7:45 AM EDT Office Visit [facility] [address] [facility] [place] [address] lab 02/17/2025 7:45 AM EST Office Visit [facility] [address] [facility] [place] [address] lab 03/17/2025 7:45 AM EST Office Visit [facility] [address] [place] [address] lab documented as of this encounter Visit Diagnoses Not on filedocumented in this encounter Care Teams Tire Center Manager Relationship Specialty Start Date End Date Washington Brooks MD PCP - General Family Medicine 10/13/14 Hua Marquez Jr., DO [address] [address] Referring Gastroenterology 05/25/18 Ramirez Nieto MD [address] [place] [address] Primary Staff Physician Cardiology 12/31/20 Kat Leal, COSMO [facility] [address] [place] [address] Transplant Center 06/10/22 Kaiser Bucio [address] [facility] [address] [place] [phone] Referring Neurosurgery 11/07/22 [facility]eyda 05/09/22 documented as of this encounter
--- OUTSIDE RECORDS SUMMARY | 2024-11-22 10:12 | XMS_ITS | Encounter Summary ---
Author Organization [facility] Address [facility] [place] [address] Care Team Providers Care Fur Mixer Operator Name Role Phone Washington Brooks MD Primary Care Provider [phone] Jimmy Escalante DO, David L Unavailable [phone] Ramirez Nieto MD Unavailable + [phone] Kat Leal RN Unavailable Unavailable Kaiser Bucio Unavailable Source Comments In the event this information is protected by the Federal Confidentiality of Alcohol and Drug AbusePatient Records regulations: The Federal rules restrict any use of the information to criminally investigate or prosecute any alcohol or drug abuse patient.[facility] Encounter Details Date Type Department Care Team (Late st Contact Info) Description 01/04/2021 Patient Msg Transplant Center [address] [phone] [place] [address] [place] [address] labs Social History Tobacco Use Types Packs/Day Years [...] N ot on file 03/08/2020 Data from: https://www.neighborhoodatlas.medicine.[facility].edu/. Last address used for calculation Not on [...] 7:45 AM EDT Office Visit [facility] [address] [place] [address] lab 01/20/2025 7:45 AM EDT Office Visit [facility] [address] [place] [place] [address] lab 02/17/2025 7:45 AM EST Office Visit [facility] [address] [facility] [place] [address] lab 03/17/2025 7:45 AM EST Office Visit [facility] [address] [place] [address] lab documented as of this encounter Visit Diagnoses Not on filedocumented in this encounter Additional Health Concerns Infection Onset Date Last Indicated Resolved Time COVID-19 Rule-Out 05/06/2021 05/06/2021 05/26/2021 8:51 PM EST COVID-19 Rule-Out 11/12/2021 11/13/2021 11/13/2021 8:39 AM EDT COVID-19 Rule-Out 05/02/2022 05/02/2022 05/02/2022 8:19 PM EST documented as of this encounter Care Teams Fur Mixer Operator Relationship Specialty Start Date End Date Washington Brooks MD PCP - General Family Medicine 10/13/14 Hua Marquez Jr., DO [address] [place] [address] [place] [address] Referring Gastroenterology 05/25/18 Ramirez Nieto MD [address] [place] [address] Primary Staff Physician Cardiology 12/31/20 Kat Leal, COSMO [facility] [address] [place] [address] Transplant Center 06/10/22 Kaiser Bucio [address] [phone] Referring Neurosurgery 11/07/22 [facility] 05/09/22 documented as of this encounter
--- OUTSIDE RECORDS SUMMARY | 2024-11-22 10:12 | XMS_ITS | Encounter Summary ---
Author Organization [facility] Address [address] [place] [address] Care Team Providers Care Integrated Campaign Manager Name Role Phone Washington Brooks MD Primary Care Provider [phone] Jimmy Escalante DO, David L Unavailable [phone] Ramirez Nieto MD Unavailable + [phone] Kat Leal RN Unavailable Unavailable Kaiser Bucio Unavailable Source Comments In the event this information is protected by the Federal Confidentiality of Alcohol and Drug AbusePatient Records regulations: The Federal rules restrict any use of the information to criminally investigate or prosecute any alcohol or drug abuse patient.[facility] Encounter Details Date Type Department Care Team (Late st Contact Info) Description 05/11/2023 Patient Msg Transplant Center [address] [phone] Kat Leal, COSMO [address] [address] Out of office notification Social History Tobacco [...] is lower risk 2 08/03/2022 Data from: https://www.neighborhoodatlas.medicine.[facility]/. Last address used for calculation [address] 08/03/2022 Sex and Gender Information [...] Entry Date Author No 03/05/2022 10:37 AM Hloden Garvey RN documented in this encounter Plan of Treatment Upcoming Encounters Date Type Department Care Team (Late st Contact Info) Description 12/16/2024 7:45 AM EDT Office Visit [facility] [address] [place] [address] lab 01/20/2025 7:45 AM EDT Office Visit [facility] [address] [place] [address] lab 02/17/2025 7:45 AM EST Office Visit [facility] [address] [place] [address] lab 03/17/2025 7:45 AM EST Office Visit [facility] [address] [place] [address] lab documented as of this encounter Visit Diagnoses Not on filedocumented in this encounter Care Teams Integrated Campaign Manager Relationship Specialty Start Date End Date Washington Brooks MD PCP - General Family Medicine 10/13/14 Hua Marquez Jr., DO [address] [address] Referring Gastroenterology 05/25/18 Ramirez Nieto MD [address] [place] [address] Primary Staff Physician Cardiology 12/31/20 Kat Leal, COSMO [facility] [address] [place] [address] Transplant Center 06/10/22 Kaiser Bucio [address] [phone] Referring Neurosurgery 11/07/22 [facility]eyda 05/09/22 documented as of this encounter
--- OUTSIDE RECORDS SUMMARY | 2024-11-22 10:12 | XMS_ITS | Encounter Summary ---
Author Organization [facility] Address [address] [place] [address] Care Team Providers Care Molasses Preparer Name Role Phone Washington Brooks MD Primary Care Provider [phone] Jimmy Escalante DO, David L Unavailable [phone] Ramirez Nieto MD Unavailable + [phone] Kat Leal RN Unavailable Unavailable Kaiser Bucio Unavailable Source Comments In the event this information is protected by the Federal Confidentiality of Alcohol and Drug AbusePatient Records regulations: The Federal rules restrict any use of the information to criminally investigate or prosecute any alcohol or drug abuse patient.[facility] Encounter Details Date Type Department Care Team (Late st Contact Info) Description 03/20/2023 Patient Msg Transplant Center [address] [phone] Kat Leal, COSMO [address] [address] [place] and Social History Tobacco Use Types Packs/Day Years [...] is lower risk 2 08/03/2022 Data from: https://www.neighborhoodatlas.medicine.[facility]/. Last address used for calculation [address] 08/03/2022 Sex and Gender Information Value [...] Description 12/16/2024 7:45 AM EDT Office Visit [facility] [address] [place] [address] lab 01/20/2025 7:45 AM EDT Office Visit [facility] [address] [place] [address] lab 02/17/2025 7:45 AM EST Office Visit [facility] [address] [place] [address] lab 03/17/2025 7:45 AM EST Office Visit [facility] [address] [place] [address] lab documented as of this encounter Visit Diagnoses Not on filedocumented in this encounter Care Teams Molasses Preparer Relationship Specialty Start Date End Date Washington Brooks MD PCP - General Family Medicine 10/13/14 Hua Marquez Jr., DO [address] [address] Referring Gastroenterology 05/25/18 Ramirez Nieto MD [address] [place] [address] Primary Staff Physician Cardiology 12/31/20 Kat Leal, COSMO [facility] [address] [place] [address] Transplant Center 06/10/22 Kaiser Bucio [address] [phone] Referring Neurosurgery 11/07/22 [facility] 05/09/22 documented as of this encounter
--- OUTSIDE RECORDS SUMMARY | 2024-11-22 10:12 | XMS_ITS | Patient Health Record ---
Author Organization [facility] in [place] Address [address] [place] [address] Care Team Providers Care Cushion Mat Maker Name Role Phone Sonu Brooks Primary Care Provider Allergies Allergen (clinical drug ingredient) Drug/Non Drug Allergy documented on EMR Reaction Allergy Type Onset Date Status pregabalin Lyrica dizziness Drug Allergy Active Results Component Value Reference Range Notes COVID-19, Flu A+B IH (Not ye t reviewed by provider) Interpretation: Performing Lab: Notes/Report: COVID - FLU A - FLU B - Control + Reason For Referral No Information Medications Medication SIG (Take, Route, Fr equency, Duration) Notes Start Date End Date Status Amitriptyline HCl 50 MG 1 tablet at [...] 2 capsule Orally Twice a day Active Magnesium 400 MG 1 capsule with a saw l Orally BID Active Multi Vitamin - 1 tablet Orally Once a day Active Simvastatin 20 MG TAKE 1 TABLET BY YOGESH TH EVERY DAY IN THE EVENING FOR 90 DAYS for 30 days Active Tacrolimus 1 MG 2 pills Orally BID Active Ursodiol 300 MG 1 capsule Orally TID 03/21/2024 Active Acetaminophen 500 MG 1 capsule as needed Orally every 6 hrs not more than 2000 mg Active Immunizations Vaccine Route Administration Date Status Comme nts Flu, Flucelvax (2867-0699) (87919) 6 mos +, single-dose syringe IM Intramuscular 05/15/2023 Administered Flu, Flucelvax (93381) 6 mos and older, single-dose syringe (3830-1736) IM Intramuscular 02/12/2024 Administered Pneumococcal (Prevnar 13) Unknown 09/10/2019 Administer ed Tdap Unknown 09/10/2019 Administered Social History Tobacco Use: Social History Observation Description Date Details (start date - stop date) Current Smoker NA - NA Alcohol Screen (Audit-C) Question Answer Notes Did you have a drink containing alcohol in the p ast year? No Points 0 Interpretation Negative Tobacco Control (Standard) Question Answer Notes Tobacco use: Current smoker How often do you smoke cigarettes? Every day AUDIT-C (Standard) Question Answer Notes Did you have a drink containing alcohol in the p ast year? No Points 0 Interpretation Negative Problems Problem Type SNOMED Code ICD Code Onset Dates Problem Status W/U Status Risk Notes Problem 437496703 Spondylosis with out myelopathy or radiculopathy, lumbar region (M47.816) Active confirmed Problem 269887695706216 Other intervertebral disc displacement, lumbar region (M51.26) Active confirmed Problem Hypertension (29121588) Hypertension (I10) Active confirmed Problem Pain in wrist (17321368) Left wrist pain (M25.532) Active confirmed Problem Lumbar radiculitis (83107341883172366) Lumbar radiculitis (M54.16) Active confirmed Problem Liver transplant recipient (575455646) Liver transplant recipient (Z94.4) Active confirmed Problem hypercholesterolemia (disorder) (55493666) Hypercholesteremia (E78.00) Active confirmed Problem Abdominal aortic aneurysm 3.0 to 5.5 centimeters in male (disorder) (109786928792223) Abdominal aortic aneurysm (AAA) 3.0 cm to 5.5 cm in diameter in male (I71.40) Active confirmed Vital Signs Blood pressure diastolic 80 mm Hg 11/20/2024 Height 74 in 11/20/2024 Blood pressure systolic 140 mm Hg 11/20/2024 Weight 224.8 lbs 11/20/2024 BMI 28.86 kg/m2 11/20/2024 Encounters Encounter Location Date Provider Diagnosis [facility] [address] [place] [address] 02/12/2024 Sonu Hoy Cough R05.9 ; Acute non-recurrent sinusitis, unspecified location J01.90 ; Nasal congestion R09.81 ; Acute bronchitis, unspecified organism J20.9 and Encounter for immunization Z23 [address] [address] 03/21/2024 Sonu Brooks Hypertension [address] [place] [address] 11/20/2024 Sonu Brooks Hypertension I10 ; L umbar radiculitis M54.16 ; Hypercholesteremia E78.00 ; Liver transplant recipient Z94.4 ; Abdominal aortic aneurysm (AAA) 3.0 cm to 5.5 cm in diameter in male I71.40 and Right inguinal hernia K40.[address] [address] 03/28/2024 Sonu Daniely [address] [address] 08/19/2024 Sonu Brooks Hypercholesteremia E 78.00 ; Fatigue R53.83 ; Encounter for screening for malignant neoplasm of colon Z12.11 and Encounter for prostate cancer screening Z12.[address] [address] 11/15/2024 Sonu Danielaustin [address] [address] 11/20/2024 Sonu Brooks Assessments Encounter Date Diagnosis (ICD Code) Assessment Notes Treatment Notes Treatment Clinical Notes Section Notes 02/12/2024 Cough (ICD-10 - R05.9) 03/21/2024 Hypertension (ICD-10 - I10) 11/20/2024 Hypertension (ICD-10 - I10) 11/20/2024 Lumbar radiculitis (ICD-10 - M54.16) 08/19/2024 Hypercholesteremia (ICD-10 - E78.00) 08/19/2024 Fatigue (ICD-10 - R53.83) 08/19/2024 Encounter for screening for malignant neoplasm of colon (ICD-10 - Z12.11) 11/20/2024 Hypercholesteremia (ICD-10 - E78.00) 02/12/2024 Acute non-recurrent sinusitis, unspecified location (ICD-10 - J01.90) Rest and drink more liquids, especially water. You may use a humidifier or vaporizer to help keep the drainage moist. Ugxm-oob-qdvpejj Nasal Saline may help the stuffy and runny nose. Use Ibuprofen and or Tylenol as needed for fever, chills, body aches or pain. Children 5 years old should not be given pakd-egm-wyrwpci cough and cold medications such as guaifenesin and dextromethorphan. If you're over age 5, you may try asvd-adc-tcbgtml cold medications such as guaifenesin and dextromethorphan, or multi-symptom cold reliever such as Dayquil to help reduce the symptoms. Antibiotics have been prescribed. You should take these until completed and follow the directions. Antibiotics can sometimes cause upset stomach, and in rare cases, serious allergic reactions or serious gastrointestinal problems. If you start having severe abdominal pain, severe vomiting, or bloody diarrhea, you should be reevaluated by your physician or urgent care immediately. Follow up with your Primary Care Provider or return to clinic if symptoms do not improve within 3-5 days 02/12/2024 Nasal congestion (ICD-10 - R09.81) 11/20/2024 Liver transplant recipient (ICD-10 - Z94.4) 08/19/2024 Encounter for prostate cancer screening (ICD-10 - Z12.5) 11/20/2024 Abdominal aortic aneurysm (AAA) 3.0 cm to 5.5 cm in diameter in male (ICD-10 - I71.40) 02/12/2024 Acute bronchitis, unspecified organism (ICD-10 - J20.9) Rest and drink more liquids, especially water. You may use a humidifier or vaporizer to help keep the drainage moist. Aknf-asd-twzzrnq Nasal Saline may help the stuffy and runny nose. Use Ibuprofen and or Tylenol as needed for fever, chills, body aches or pain. Children 5 years old should not be given ixah-por-ikcawoa cough and cold medications such as guaifenesin and dextromethorphan. If you're over age 5, you may try ifqw-nqd-yuephwa cold medications such as guaifenesin and dextromethorphan, or multi-symptom cold reliever such as Dayquil to help reduce the symptoms. Antibiotics have been prescribed. You should take these until completed and follow the directions. Antibiotics can sometimes cause upset stomach, and in rare cases, serious allergic reactions or serious gastrointestinal problems. If you start having severe abdominal pain, severe vomiting, or bloody diarrhea, you should be reevaluated by your physician or urgent care immediately. Follow up with your Primary Care Provider or return to clinic if symptoms do not improve within 3-5 days. If you develop severe symptoms such as shortness of breath, repeated vomiting, coughing up blood, or chest pain you should go to the emergency room or call 911 02/12/2024 Encounter for immunization (ICD-10 - Z23) 11/20/2024 Right inguinal herni a (ICD-10 - K40.90) Plan Of Treatment Pending Test Test Name Order Date CMP (COMPLETE METABOLIC PANEL) 4 HEMOGLOBIN A1C (GLYCO) 05/15/2023 LIPID PANEL (CHOL/TRIG/HDL/LDL) 05/15/19 24 CBC WITH DIFF 05/15/2023 PSA, PROSTATE-SPECIFIC ANTIGEN 4 FECAL OCCULT BLOOD 08/19/2024 Rapid COVID-19 Ag 11/03/2023 COVID-19, Flu A+B IH 02/12/2024 CBC AUTO DIFF 08/19/2024 GLYCOHEMOGLOBIN A1C 08/19/2024 LIPID PROFILE 08/19/2024 PROF 14(COMP METB) 08/19/2024 MRI LSPINE WO W CON 10/06/2022 XR LSPINE MIN 4 VIEWS 11/20/2024 XR WRIST LT MIN 3 V 01/11/2023 THYROID PANEL (T4/TSH/FREE T3) 4 THYROID PANEL (T4/TSH/FREE T3) 5 PSA Total+% Free 08/19/2024 XR cervical spine 2-3V 11/20/2024 US aorta 11/20/2024 Insurance Providers Payer Name Payer Address Payer Phone Subscriber Number Group Number Insured Name Patient Relationship to Insured Coverage Start Date Coverage End Date [facility] [address] [place], [place] [id number] Washington Rodriguez Self - patient is the insured Medications Administered Medication Instructions Date of Administration Dosage Notes DEPO-Medrol 09/21/2022 120 mg 120 Kenalog-40 10/06/2022 120 mg 120 Kenalog-40 10/18/2023 80 mg Ketorolac Tromethamine 09/21/2022 60 mg 60 Ketorolac Tromethamine 10/06/2022 60 mg 60 Orphenadrine Citrate 09/21/2022 60 mg 60 Orphenadrine Citrate 10/06/2022 60 mg 60 Medical (General) History Medical History History ICD Code Acquired thrombocytopenia D69.6 Hypertension I10 Hyperlipemia E78.5 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, 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 CAD (coronary artery disease) I25.10 Closed compression fracture of first lum bar vertebra, sequela S32.010S Iron (Fe) deficiency anemia D50.9 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 Hypertension, portal K76.6 Hernia, umbilical K42.9 Hernia, inguinal K40.90 Ascites R18.8 Abdominal aneurysm I71.40 Pleural effusion J90 Spleen enlarged R16.1 Cirrhosis, 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
--- OUTSIDE RECORDS SUMMARY | 2024-11-22 10:12 | XMS_ITS | Encounter Summary ---
Author Organization [facility] Address [address] [place] [address] Care Team Providers Care Return Agent Name Role Phone Washington Brooks MD Primary Care Provider [phone] Jimmy Escalante DO, David L Unavailable [phone] Ramirez Nieto MD Unavailable + [phone] Kat Leal RN Unavailable Unavailable [facility] [...] Care Team (Late st Contact Info) Description 09/29/2020 Patient Msg Gastroenterology [address] [phone] Provider, Ccf Appointment Social History Tobacco Use Types Packs/Day Years [...] N ot on file 03/08/2020 Data from: https://www.neighborhoodatlas.medicine.[facility].edu/. Last address used for calculation Not [...] have Coronavirus / COVID-19? No / Unsure 09/04/2020 12:23 PM EDT documented as of this encounter [...] Description 12/16/2024 7:45 AM EDT Office Visit [facility] [address] [place] [address] lab 01/20/2025 7:45 AM EDT Office Visit [facility] [address] [place] [address] lab 02/17/2025 7:45 AM EST Office Visit [facility] [address] [place] [address] lab 03/17/2025 7:45 AM EST Office Visit [facility] [address] [place] [address] lab documented as of this encounter Visit Diagnoses Not on filedocumented in this encounter Additional Health Concerns Infection Onset Date Last Indicated Resolved Time COVID-19 Rule-Out 05/06/2021 05/06/2021 05/26/2021 8:51 PM EST COVID-19 Rule-Out 11/12/2021 11/13/2021 11/13/2021 8:39 AM EDT COVID-19 Rule-Out 05/02/2022 05/02/2022 05/02/2022 8:19 PM EST documented as of this encounter Care Teams Return Agent Relationship Specialty Start Date End Date Washington Brooks MD PCP - General Family Medicine 10/13/14 Hua Marquez Jr., DO [address] [address] [place] [address] Referring Gastroenterology 05/25/18 Ramirez Nieto MD [address] [place] [address] Primary Staff Physician Cardiology 12/31/20 Kat Leal, RN [facility] [address] [place] [address] Transplant Center 06/10/22 [facility] [address] [place] [phone] Referring Neurosurgery 11/07/22 [facility] 05/09/22 documented as of this encounter
--- OUTSIDE RECORDS SUMMARY | 2024-11-22 10:12 | XMS_ITS | Encounter Summary ---
Author Organization [facility] Address [address] [place] [address] Care Team Providers Care Cushion Former Name Role Phone Washington Brooks MD Primary Care Provider [phone] Jimmy Escalante DO, David L Unavailable [phone] Ramirez Nieto MD Unavailable + [phone] Kat Leal RN Unavailable Unavailable [facility] Unavailable Source Comments In the event this information is protected by the Federal Confidentiality of Alcohol and Drug AbusePatient Records regulations: The Federal rules restrict any use of the information to criminally investigate or prosecute any alcohol or drug abuse patient.[facility] Encounter Details Date Type Department Care Team (Late st Contact Info) Description 04/11/2022 Patient Msg Gastroenterology [address] [phone] Provider, Ccf Appointment reminder Social History Tobacco Use Types Packs/Day Years Used Date Smoking Tobacco: Former Cigarettes 2 41 1 2019 Smokeless Tobacco: Never Alcohol Use Standard [...] N ot on file 04/15/2022 Data from: https://www.neighborhoodatlas.medicine.[facility].edu/. Last address used for calculation [address] 04/15/2022 Sex and Gender Information Value Date [...] 12/16/2024 7:45 AM EDT Office Visit [facility] [address] [place] [address] lab 01/20/2025 7:45 AM EDT Office Visit [facility] [address] [place] [address] lab 02/17/2025 7:45 AM EST Office Visit [facility] [address] [place] [address] lab 03/17/2025 7:45 AM EST Office Visit [facility] [address] [place] [address] lab documented as of this encounter Visit Diagnoses Not on filedocumented in this encounter Additional Health Concerns Infection Onset Date Last Indicated Resolved Time COVID-19 Rule-Out 05/02/2022 05/02/2022 05/02/2022 8:19 PM EST documented as of this encounter Care Teams Cushion Former Relationship Specialty Start Date End Date Washington Brooks MD PCP - General Family Medicine 10/13/14 Hua Marquez Jr., [address] [address] Referring Gastroenterology 05/25/18 Ramirez Nieto MD [address] [place] [address] Primary Staff Physician Cardiology 12/31/20 Kat Leal, [facility] [address] [place] [address] Transplant Center 06/10/22 [facility] [address] [phone] Referring Neurosurgery 11/07/22 [facility] 05/09/22 documented as of this encounter
--- OUTSIDE RECORDS SUMMARY | 2024-11-22 10:12 | XMS_ITS | Encounter Summary ---
Author Organization [facility] Address [facility] [place] [address] Care Team Providers Care Stereo Equipment Installer Name Role Phone Washington Brooks MD Primary Care Provider [phone] Jimmy Escalante DO, David L Unavailable [phone] Ramirez Nieto MD Unavailable + [phone] Kat Leal RN Unavailable Unavailable [facility] Unavailable Source Comments In the event this information is protected by the Federal Confidentiality of Alcohol and Drug AbusePatient Records regulations: The Federal rules restrict any use of the information to criminally investigate or prosecute any alcohol or drug abuse patient.[facility] Encounter Details Date Type Department Care Team (Late st Contact Info) Description 02/06/2024 Patient Msg Angio [address] [place] [address] Provider, Ccbibi pre procedure instructions for 02/07/24 Social History Tobacco Use Types Packs/Day Years [...] is lower risk 2 08/03/2022 Data from: https://www.neighborhoodatlas.medicine.[facility].edu/. Last address used for calculation [address] 08/03/2022 Sex and Gender Information Value [...] Description 12/16/2024 7:45 AM EDT Office Visit [facility] [address] [place] [address] lab 01/20/2025 7:45 AM EDT Office Visit [facility] [address] [place] [place] [address] lab 02/17/2025 7:45 AM EST Office Visit [facility] [address] [place] [place] [address] lab 03/17/2025 7:45 AM EST Office Visit [facility] [address] [place] [place] [address] lab documented as of this encounter Visit Diagnoses Not on filedocumented in this encounter Care Teams Stereo Equipment Installer Relationship Specialty Start Date End Date Washington Brooks MD PCP - General Family Medicine 10/13/14 Hua Marquez Jr., [address] [address] Referring Gastroenterology 05/25/18 Ramirez Nieto MD [address] [place] [address] Primary Staff Physician Cardiology 12/31/20 Kat Leal, [facility] [address] [place] [address] Transplant Center 06/10/22 [facility] [address] [phone] Referring Neurosurgery 11/07/22 [facility] 05/09/22 documented as of this encounter
--- OUTSIDE RECORDS SUMMARY | 2024-11-22 10:12 | XMS_ITS | Encounter Summary ---
Author Organization [facility] Address [address] [place] [address] Care Team Providers Care Bowling Ball Mold Assembler Name Role Phone Washington Brooks MD Primary Care Provider [phone] Jimmy Escalante DO, David L Unavailable [phone] Ramirez Nieto MD Unavailable + [phone] Kat Leal RN Unavailable Unavailable [facility] Unavailable Source Comments In the event this information is protected by the Federal Confidentiality of Alcohol and Drug AbusePatient Records regulations: The Federal rules restrict any use of the information to criminally investigate or prosecute any alcohol or drug abuse patient.[facility] Encounter Details Date Type Department Care Team (Late st Contact Info) Description 09/04/2020 [facility] [address] [place] [address] Kulwinder Landry MD [address] [place] [address] Social History Tobacco Use Types Packs/Day Years Used Date Smoking Tobacco: Former Cigarettes 2 41.8 0 05/30/1977 - 04/2019 Smokeless Tobacco: Former Snuff Comments:Quit April [...] N ot on file 03/08/2020 Data from: https://www.neighborhoodatlas.[facility]/. Last address used for calculation Not on [...] hearing? Answer Date of Assessment Author No 10/25/2019 8:20 PM EDT Michelle Freedman), RN * Are you blind or do you have serious difficulty seeing, even when wearing glasses? Answer Date of Assessment Author No 10/25/2019 8:20 PM EDT Michelle Freedman), RN * Do you have serious difficulty walking or climbing stairs? Answer Date of Assessment Author No 10/25/2019 8:20 PM EDT Michelle Freedman), RN * Do you have difficulty dressing or bathing? Answer Date of Assessment Author No 10/25/2019 8:20 PM EDT Merva, Th omas (Rn), RN * Because of a physical, mental, or emotional condition, do you have difficulty doing errands alone such as visiting a doctor's office or shopping? Answer Date of Assessment Author No 10/25/2019 8:20 PM EDT Michelle Freedman (Rn), RN documented as of this encounter Mental Status * Because of a physical, mental, or emotional condition, do you have serious difficulty concentrating, remembering, or making decisions? Answer Entry Date Author No 10/25/2019 8:20 PM EDT Michelle Freedman (Rn), RN documented in this encounter Plan of Treatment Upcoming Encounters Date Type Department Care Team (Late st Contact Info) Description 12/16/2024 7:45 AM EDT Office Visit [facility] [address] [place] [address] [place] [address] lab 01/20/2025 7:45 AM EDT Office Visit [facility] [address] [place] [address] [place] [address] lab 02/17/2025 7:45 AM EST Office Visit [facility] [address] [place] [address] [place] [address] lab 03/17/2025 7:45 AM EST Office Visit [facility] [address] [place] [address] [place] [address] lab documented as of this encounter Visit Diagnoses Not on filedocumented in this encounter Additional Health Concerns Infection Onset Date Last Indicated Resolved Time COVID-19 Rule-Out 05/06/2021 05/06/2021 05/26/2021 8:51 PM EST COVID-19 Rule-Out 11/12/2021 11/13/2021 11/13/2021 8:39 AM EDT COVID-19 Rule-Out 05/02/2022 05/02/2022 05/02/2022 8:19 PM EST documented as of this encounter Care Teams Bowling Ball Mold Assembler Relationship Specialty Start Date End Date Washington Brooks MD PCP - General Family Medicine 10/13/14 Hua Marquez Jr., [address] [address] [place] [address] Referring Gastroenterology 05/25/18 Ramirez Nieto MD [address] [phone] Primary Staff Physician Cardiology 12/31/20 Kat Leal, [facility] [address] [phone] Transplant Center 06/10/22 [facility] [address] [facility] [address] [place] [phone] Referring Neurosurgery 11/07/22 [facility] 05/09/22 documented as of this encounter
--- OUTSIDE RECORDS SUMMARY | 2024-11-22 10:12 | XMS_ITS | Encounter Summary ---
Author Organization [facility] Address [address] [place] [address] Care Team Providers Care Supply Chain Intern Name Role Phone Washington Brooks MD Primary Care Provider [phone] Jimmy Escalante DO, David L Unavailable [phone] Ramirez Nieto MD Unavailable + [phone] Kat Leal RN Unavailable Unavailable [facility] Unavailable Source Comments In the event this information is protected by the Federal Confidentiality of Alcohol and Drug AbusePatient Records regulations: The Federal rules restrict any use of the information to criminally investigate or prosecute any alcohol or drug abuse patient.[facility] Encounter Details Date Type Department Care Team (Late st Contact Info) Description 02/22/2024 Patient Msg Transplant Center [address] [phone] Kat Leal, [facility] [address] [address] Social History Tobacco Use Types Packs/Day Years [...] risk 2 08/03/2022 Data from: https://www.neighborhoodatlas.medicine.[facility]/. Last address used for calculation [address] 08/03/2022 Sex and Gender Information Value [...] Description 12/16/2024 7:45 AM EDT Office Visit [facility] [address] [place] [address] lab 01/20/2025 7:45 AM EDT Office Visit [facility] [address] [place] [address] lab 02/17/2025 7:45 AM EST Office Visit [facility] [address] [place] [address] lab 03/17/2025 7:45 AM EST Office Visit [facility] [address] [place] [address] lab documented as of this encounter Visit Diagnoses Not on filedocumented in this encounter Care Teams Supply Chain Intern Relationship Specialty Start Date End Date Washington Brooks MD PCP - General Family Medicine 10/13/14 Hua Marquez Jr., DO [address] [address] Referring Gastroenterology 05/25/18 Ramirez Nieto MD [address] [place] [address] Primary Staff Physician Cardiology 12/31/20 Kat Leal, [facility] [address] [place] [address] Transplant Center 06/10/22 [facility] [address] [phone] Referring Neurosurgery 11/07/22 [facility] 05/09/22 documented as of this encounter
--- OUTSIDE RECORDS SUMMARY | 2024-11-22 10:12 | XMS_ITS | Encounter Summary ---
Author Organization [facility] Address [address] [place] [address] Care Team Providers Care Odd Shoe Examiner Name Role Phone Washington Brooks MD Primary Care Provider [phone] iJmmy Escalante DO, David L Unavailable [phone] Ramirez Nieto MD Unavailable + [phone] Kat Leal RN Unavailable Unavailable Kaiser Bucio Unavailable Source Comments In the event this information is protected by the Federal Confidentiality of Alcohol and Drug AbusePatient Records regulations: The Federal rules restrict any use of the information to criminally investigate or prosecute any alcohol or drug abuse patient.[facility] Encounter Details Date Type Department Care Team (Late st Contact Info) Description 06/24/2020 Patient Msg [facility] [address] [place] [address] Provider, Ccf APPOINTMENT SCHEDULING DR REYES REQUESTING Social History Tobacco Use Types Packs/Day Years [...] N ot on file 03/08/2020 Data from: https://www.neighborhoodatlas.medicine.[facility].edu/. Last address used for calculation Not on [...] have Coronavirus / COVID-19? No / Unsure 06/18/2020 8:11 AM EDT documented as of this encounter Functional Status * Are you deaf or do you have serious difficulty hearing? Answer Date of Assessment Author No 10/25/2019 8:20 PM EDT Michelle Freedman) RN * Are you blind or do you have serious difficulty seeing, even when wearing glasses? Answer Date of Assessment Author No 10/25/2019 8:20 PM EDT Michelle Freedman), RN * Do you have serious difficulty walking or climbing stairs? Answer Date of Assessment Author No 10/25/2019 8:20 PM CARMELLAT Michelle Freedman), RN * Do you have difficulty dressing or bathing? Answer Date of Assessment Author No 10/25/2019 8:20 PM CARMELLAT Michelle Freedman), RN * Because of a physical, mental, [...] Description 12/16/2024 7:45 AM EDT Office Visit [facility] [address] [place] [address] lab 01/20/2025 7:45 AM EDT Office Visit [facility] [address] [facility] [place] [address] lab 02/17/2025 7:45 AM EST Office Visit [facility] [address] [facility] [place] [address] lab 03/17/2025 7:45 AM EST Office Visit [facility] [address] [facility] [place] [address] lab documented as of this encounter Visit Diagnoses Not on filedocumented in this encounter Additional Health Concerns Infection Onset Date Last Indicated Resolved Time COVID-19 Rule-Out 05/06/2021 05/06/2021 05/26/2021 8:51 PM EST COVID-19 Rule-Out 11/12/2021 11/13/2021 11/13/2021 8:39 AM EDT COVID-19 Rule-Out 05/02/2022 05/02/2022 05/02/2022 8:19 PM EST documented as of this encounter Care Teams Odd Shoe Examiner Relationship Specialty Start Date End Date Washington Brooks MD PCP - General Family Medicine 10/13/14 Hua Marquez Jr., DO [address] [place] [address] [place] [address] Referring Gastroenterology 05/25/18 Ramirez Nieto MD [address] [place] [address] Primary Staff Physician Cardiology 12/31/20 Kat Leal, COSMO [facility] [address] [place] [address] Transplant Center 06/10/22 Kaiser Bucio [address] [place] [phone] Referring Neurosurgery 11/07/22 [facility] 05/09/22 documented as of this encounter
--- OUTSIDE RECORDS SUMMARY | 2024-11-22 10:12 | XMS_ITS | Encounter Summary ---
Author Organization [facility] Address [facility] [place] [address] Care Team Providers Care Still Pump Operator Name Role Phone Washington Brooks MD Primary Care Provider [phone] Jimmy Escalante DO, David L Unavailable [phone] Ramirez Nieto MD Unavailable + [phone] Kat Leal RN Unavailable Unavailable [facility] Bucio Unavailable Source Comments In the event this information is protected by the Federal Confidentiality of Alcohol and Drug AbusePatient Records regulations: The Federal rules restrict any use of the information to criminally investigate or prosecute any alcohol or drug abuse patient.[facility] Encounter Details Date Type Department Care Team (Late st Contact Info) Description 01/04/2022 Patient Msg Gastroenterology [address] [phone] Dayna Purdy MD [address] [place] [address] Labs Social History Tobacco Use Types Packs/Day [...] N ot on file 09/17/2021 Data from: https://www.neighborhoodatlas.medicine.[facility].edu/. Last address used for calculation [address] [facility] 09/17/2021 Sex and Gender Information Value Date Recorded Sex Assigned at Male 06/02/2020 10:20 AM EST Legal Sex Male 10:13 AM EDT Gender Identity Male 06/02/2020 10:20 AM EST Sexual Orientation Not on file COVID-19 Exposure Response Date Recorded In the last 10 days, have yo u been in contact with someone who was confirmed or suspected to have Coronavirus/COVID-19? No / Unsure 01/06/2022 9:51 AM EDT documented as of this encounter Functional Status * Are you deaf or do you have serious difficulty hearing? Answer Date of Assessment Author No 11/13/2021 5:10 PM EDT Luciano Mcconnell RN * Are you blind or do you have serious difficulty seeing, even when wearing glasses? Answer Date of Assessment Author No 11/13/2021 5:10 PM EDT Luciano Mcconnell RN * Do you have serious difficulty walking or climbing stairs? Answer Date of Assessment Author No 11/13/2021 5:10 PM EDT Luciano Mcconnell RN * Do you have difficulty dressing or bathing? Answer Date of Assessment Author No 11/13/2021 5:10 PM EDT Luciano Mcconnell RN * Because of a physical, mental, or emotional condition, do you have difficulty doing errands alone such as visiting a doctor's office or shopping? Answer Date of Assessment Author No 11/13/2021 5:10 PM EDT Luciano Mcconnell RN documented as of this encounter Mental Status * Because of a physical, mental, or emotional condition, do you have serious difficulty concentrating, remembering, or making decisions? Answer Entry Date Author No 11/13/2021 5:10 PM EDT Luciano Mcconnell RN documented in this encounter Plan of Treatment Upcoming Encounters Date Type Department Care Team (Late st Contact Info) Description 12/16/2024 7:45 AM EDT Office Visit [facility] [address] [place] [address] lab 01/20/2025 7:45 AM EDT Office Visit [facility] [address] [facility] [place] [address] lab 02/17/2025 7:45 AM EST Office Visit [facility] [address] [facility] [place] [address] lab 03/17/2025 7:45 AM EST Office Visit [facility] [address] [place] [address] lab documented as of this encounter Visit Diagnoses Not on filedocumented in this encounter Additional Health Concerns Infection Onset Date Last Indicated Resolved Time COVID-19 Rule-Out 05/02/2022 05/02/2022 05/02/2022 8:19 PM EST documented as of this encounter Care Teams Still Pump Operator Relationship Specialty Start Date End Date Washington Brooks MD PCP - General Family Medicine 10/13/14 Hua Marquez Jr., DO [address] [address] [place] [id number] Referring Gastroenterology 05/25/18 Ramirez Nieto MD [address] [place] [address] Primary Staff Physician Cardiology 12/31/20 Kat Leal, RN [facility] [address] [place] [address] Transplant Center 06/10/22 Kaiser Bucio [address] [phone] Referring Neurosurgery 11/07/22 [facility] 05/09/22 documented as of this encounter
--- OUTSIDE RECORDS SUMMARY | 2024-11-22 10:12 | XMS_ITS | Encounter Summary ---
Author Organization [facility] Address [address] [place] [address] Care Team Providers Care Glass Mold Repairer Name Role Phone Washington Brooks MD Primary Care Provider [phone] Jimmy Escalante DO, David L Unavailable [phone] Ramirez Nieto MD Unavailable + [phone] Kat Leal RN Unavailable Unavailable [facility] Bucio Unavailable Source Comments In the event this information is protected by the Federal Confidentiality of Alcohol and Drug AbusePatient Records regulations: The Federal rules restrict any use of the information to criminally investigate or prosecute any alcohol or drug abuse patient.[facility] Encounter Details Date Type Department Care Team (Late st Contact Info) Description 09/22/2023 Patient Msg Transplant Center [address] [phone] Kat Leal, COSMO [address] [address] Out of office notification and October 04 holiday Social History Tobacco Use Types Packs/Day Years [...] is lower risk 2 08/03/2022 Data from: https://www.neighborhoodatlas.medicine.[facility]/. Last address used for calculation [address] [facility] 08/03/2022 Sex and Gender Information Value Date [...] Visit [facility] [address] [place] [address] lab 01/20/2025 7:45 AM EDT Office Visit [facility] [address] [place] [address] lab 02/17/2025 7:45 AM EST Office Visit [facility] [address] [place] [address] lab 03/17/2025 7:45 AM EST Office Visit [facility] [address] [place] [address] lab documented as of this encounter Visit Diagnoses Not on filedocumented in this encounter Care Teams Glass Mold Repairer Relationship Specialty Start Date End Date Washington Brooks MD PCP - General Family Medicine 10/13/14 Hua Marquez Jr., DO [address] [address] Referring Gastroenterology 05/25/18 Ramirez Nieto MD [address] [place] [address] Primary Staff Physician Cardiology 12/31/20 Kat Leal, COSMO [facility] [address] [place] [address] Transplant Center 06/10/22 Kaiser Bucio [address] [phone] Referring Neurosurgery 11/07/22 [facility] 05/09/22 documented as of this encounter
--- OUTSIDE RECORDS SUMMARY | 2024-11-22 10:12 | XMS_ITS | Encounter Summary ---
Author Organization [facility] Address [address] [place] [address] Care Team Providers Care Mattress Inspector Name Role Phone Washington Brooks MD Primary Care Provider [phone] Jimmy Escalante DO, David L Unavailable [phone] Ramirez Nieto MD Unavailable + [phone] Kat Leal RN Unavailable Unavailable Kaiser Bucio Unavailable Source Comments In the event this information is protected by the Federal Confidentiality of Alcohol and Drug AbusePatient Records regulations: The Federal rules restrict any use of the information to criminally investigate or prosecute any alcohol or drug abuse patient.[facility] Encounter Details Date Type Department Care Team (Late st Contact Info) Description 08/22/2023 Patient Msg Transplant Center [address] [phone] Kat Lela, COSMO [address] [address] Out of office and Social History Tobacco Use Types Packs/Day [...] is lower risk 2 08/03/2022 Data from: https://www.neighborhoodatlas.[facility]/. Last address used for calculation [address] [facility] 08/03/2022 Sex and Gender Information Value [...] EDT Office Visit [facility] [address] [place] [address] lab 01/20/2025 7:45 AM EDT Office Visit [facility] [address] [place] [address] lab 02/17/2025 7:45 AM EST Office Visit [facility] [address] [place] [address] lab 03/17/2025 7:45 AM EST Office Visit [facility] [address] [place] [address] lab documented as of this encounter Visit Diagnoses Not on filedocumented in this encounter Care Teams Mattress Inspector Relationship Specialty Start Date End Date Washington Brooks MD PCP - General Family Medicine 10/13/14 Hua Marquez Jr., DO [address] [address] Referring Gastroenterology 05/25/18 Ramirez Nieto MD [address] [place] [address] Primary Staff Physician Cardiology 12/31/20 Kat Leal, COSMO [facility] [address] [place] [address] Transplant Center 06/10/22 Kaiser Bucio [address] [phone] Referring Neurosurgery 11/07/22 [facility] 05/09/22 documented as of this encounter
--- OUTSIDE RECORDS SUMMARY | 2024-11-22 10:12 | XMS_ITS ---
Author Organization [facility] Address [address] [place] [address] Care Team Providers Care Ventilated Rib Fitter Name Role Phone Washington Brooks MD Primary Care Provider [phone] Jimmy Escalante DO, David L Unavailable [phone] Ramirez Nieto MD Unavailable + [phone] Kat Leal RN Unavailable Unavailable Kaiser Bucio Unavailable Transplant Episode Liver Recipient [facility] ([place], [place]) [facility] Organ Received: Liver Transplanted on 05/03/2022 Marked as Active Follow-up on 05/03/2022 Liver CoordinatorKat Leal RN Phone: N/A Fax: N/A Email: N/A Kashia Organ Diagnosis Organ Primary Contributory Liver Cirrhosis: Fatty Liver (OSMAN) Donor Information Organ ABO Source Meets Risk Criteria HLA Match Mismatches Cross Match Liver Transplanted O DBD No A: B: DR: Liver Donor Serology Results Anti-CMV CMV IgG: Negative EBV IgG EBV VCA IgG: Positive Anti-HBcAb HBC Total: Negative HBsAg HBsAg: Negative HBV DNA No results on file Anti-HCV HCV: Negative Anti-HIV I/II HIV-1: Not Done HIV Ag/Ab Combo Assay: Negative Anti-HTLV I/II HTLV: Not Done RPR/VDRL RPR: Negative EBV IgM EBV VCA IgM: Negative HBsAb HBsAb: Not Done EBNA No results on file Toxoplasma Toxoplasma IgG: Negative HSV 1 No results on file HSV 2 No results on file Quantiferon TB No results on file Measles No results on file Mumps No results on file SARS CoV-2 No results on file anti-HBc No results on file Chagas No results on file WNVNAT No results on file HBV FELICE No results on file HCV FELICE HCV FELICE: Negative Strongyloides No results on file Care Team Name Role Phone Fax Email Kat Leal RN Liver Coordinator N/A N/A N/A Jay Grover MD Transplant Physician [phone] Dayna Purdy MD Referring [phone] N/A DES Trivedi Board Attendant [phone] N/A Rigoberto Tristan MD Anesthesiologist [phone] N/A Mark Faye MD, PhD Surgeon [phone] Rei Seymour, [facility] Pharmacist [phone] N/A N/A Nadia Fraser RD Bicycle Fitter N/A N/A N/A Events Post-Transplant Pre-Transplant Admitted: 05/02/2022 Referred: 05/01/2019 Transplanted: 05/03/2022 Evaluation began: 0 Discharged: 05/13/2022 Committee: 11/06/2019 Center waitlisted: 0
--- OUTSIDE RECORDS SUMMARY | 2024-11-22 10:12 | XMS_ITS | Clinical Summary ---
Author Organization [facility] Address [address] [place] [address] Care Team Providers Care Paper Wood Cutter Name Role Phone Unavailable Primary Care Provider Unavailabl e Social History Tobacco Use Types Packs/Day Years Used Date Smoking Tobacco: Never Assessed Sex and Gender Information Value Date Recorded Sex Assigned at Not on file Legal Sex Male 8:12 PM EDT Gender Identity Not on file Sexual Orientation Not on file Last Filed Vital Signs Vital Sign Reading Time Taken Comments Blood Pressure 120/76 02/26/2019 12:00 PM EST Pulse - - Temperature - - Respiratory Rate - - Oxygen Saturation - - Inhaled Oxygen Concentration - - Weight 106 kg (234 lb) 02/26/2019 12:00 PM EST Height 190.5 cm (6' 3 ) 02/26/2019 12:00 PM EST Body Mass Index 29.25 02/26/2019 12:00 PM EST Plan of Treatment Health Maintenance Due Date Last Done Comments CT Colonography 1959 FIT-DNA 1959 FIT 1959 FOBT 1959 Sigmoidoscopy 1959 Pneumococcal Vaccine: 65+ Ye ars (2 of 2 - PPSV23) 09/09/2020 09/10/2019 Influenza Vaccine (#1) 2024 2, 01/14/2021, 03/02/2020, Additional history exists Colonoscopy 04/23/2030 04/23/2020, 04/23/2020 Colorectal Cancer Screening 04/23/2030
--- OUTSIDE RECORDS SUMMARY | 2024-11-22 10:12 | XMS_ITS | Encounter Summary ---
Author Organization [facility] Address [address] [place] [address] Care Team Providers Care Consumer Loan Processor Name Role Phone Washington Brooks MD Primary Care Provider [phone] Jimmy Escalante DO, David L Unavailable [phone] Ramirez Nieto MD Unavailable + [phone] Kat Leal RN Unavailable Unavailable Kaiser Bucio Unavailable Source Comments In the event this information is protected by the Federal Confidentiality of Alcohol and Drug AbusePatient Records regulations: The Federal rules restrict any use of the information to criminally investigate or prosecute any alcohol or drug abuse patient.[facility] Encounter Details Date Type Department Care Team (Late st Contact Info) Description 06/19/2023 Patient Msg Transplant Center [address] [phone] Kat Leal, COSMO [address] [phone] Primary Care Provider Letter Social History Tobacco Use Types Packs/Day Years [...] is lower risk 2 08/03/2022 Data from: https://www.neighborhoodatlas.medicine.[facility]/. Last address used for calculation [address] 08/03/2022 Sex and Gender Information [...] AM EDT Office Visit [facility] [address] [place] [address] lab 01/20/2025 7:45 AM EDT Office Visit [facility] [address] [place] [place] [address] lab 02/17/2025 7:45 AM EST Office Visit [facility] [address] [place] [place] [address] lab 03/17/2025 7:45 AM EST Office Visit [facility] [address] [place] [place] [address] lab documented as of this encounter Visit Diagnoses Not on filedocumented in this encounter Care Teams Consumer Loan Processor Relationship Specialty Start Date End Date Washington Brooks MD PCP - General Family Medicine 10/13/14 Hua Marquez Jr., DO [address] [address] Referring Gastroenterology 05/25/18 Ramirez Nieto MD [address] [place] [address] Primary Staff Physician Cardiology 12/31/20 Kat Leal, COSMO [facility] [address] [place] [address] Transplant Center 06/10/22 Kaiser Bucio [address] [phone] Referring Neurosurgery 11/07/22 [facility] 05/09/22 documented as of this encounter
--- OUTSIDE RECORDS SUMMARY | 2024-11-22 10:13 | XMS_ITS | Encounter Summary ---
Author Organization [facility] Address [address] [place] [address] Care Team Providers Care Manager Corporate Responsibility Name Role Phone Washington Brooks MD Primary Care Provider [phone] Jimmy Escalante DO, David L Unavailable [phone] Ramirez Nieto MD Unavailable + [phone] Kat Leal RN Unavailable Unavailable Kaiser Bucio Unavailable Source Comments In the event this information is protected by the Federal Confidentiality of Alcohol and Drug AbusePatient Records regulations: The Federal rules restrict any use of the information to criminally investigate or prosecute any alcohol or drug abuse patient.[facility] Encounter Details Date Type Department Care Team (Late st Contact Info) Description 08/08/2024 Patient Msg Transplant Center [address] [phone] Provider, Ccf Upcoming [facility] Seminar for Transplant Recipients & Donor Families Social History Tobacco Use Types Packs/Day Years [...] lower risk 2 08/03/2022 Data from: https://www.neighborhoodatlas.medicine.[facility]/. Last address used for calculation [address] [facility] 08/03/2022 Sex and Gender Information Value [...] of Assessment Author No 03/05/2022 10:37 AM Holdne Garvey RN * Do you have difficulty [...] Description 12/16/2024 7:45 AM EDT Office Visit [facility] [address] [place] [address] lab 01/20/2025 7:45 AM EDT Office Visit [facility] [address] [place] [address] lab 02/17/2025 7:45 AM EST Office Visit [facility] [address] [place] [address] lab 03/17/2025 7:45 AM EST Office Visit [facility] [address] [facility] [place] [place] [address] lab documented as of this encounter Visit Diagnoses Not on filedocumented in this encounter Care Teams Manager Corporate Responsibility Relationship Specialty Start Date End Date Washington Brooks MD PCP - General Family Medicine 10/13/14 Hua Marquez Jr., DO [address] [address] Referring Gastroenterology 05/25/18 Ramirez Nieto MD [address] [place] [address] Primary Staff Physician Cardiology 12/31/20 Kat Leal, COSMO [facility] [address] [place] [address] Transplant Center 06/10/22 Kaiser Bucio [address] [phone] Referring Neurosurgery 11/07/22 [facility] 05/09/22 documented as of this encounter
--- OUTSIDE RECORDS SUMMARY | 2024-11-22 10:13 | XMS_ITS | Encounter Summary ---
Author Organization [facility] Address [facility] [place] [address] Care Team Providers Care Car Dryer Name Role Phone Washington Brooks MD Primary Care Provider [phone] Jimmy Escalante DO, David L Unavailable [phone] Ramirez Nieto MD Unavailable + [phone] Kat Leal RN Unavailable Unavailable Kaiser Bucio Unavailable Source Comments In the event this information is protected by the Federal Confidentiality of Alcohol and Drug AbusePatient Records regulations: The Federal rules restrict any use of the information to criminally investigate or prosecute any alcohol or drug abuse patient.[facility] Encounter Details Date Type Department Care Team (Late st Contact Info) Description 01/20/2022 Patient Msg Gastroenterology [address] [phone] Dayna Purdy MD [address] [place] [address] Liver Tests Social History Tobacco Use Types Packs/Day Years [...] N ot on file 09/17/2021 Data from: https://www.neighborhoodatlas.[facility].edu/. Last address used for calculation [address] [facility] 09/17/2021 Sex and Gender Information Value Date Recorded Sex Assigned at Male 06/02/2020 10:20 AM EST Legal Sex Male 10:13 AM EDT Gender Identity Male 06/02/2020 10:20 AM EST Sexual Orientation Not on file COVID-19 Exposure Response Date Recorded In the last 10 days, have yo u been in contact with someone who was confirmed or suspected to have Coronavirus/COVID-19? No / Unsure 01/13/2022 7:40 AM EDT documented as of this encounter [...] of Assessment Author No 11/13/2021 5:10 PM CARMELLAT Luciano Mcconnell RN * Do you have [...] Description 12/16/2024 7:45 AM EDT Office Visit [facility] [address] [place] [address] lab 01/20/2025 7:45 AM EDT Office Visit [facility] [address] [facility] [place] [address] lab 02/17/2025 7:45 AM EST Office Visit [facility] [address] [facility] [place] [address] lab 03/17/2025 7:45 AM EST Office Visit [facility] [address] [place] [address] lab documented as of this encounter Visit Diagnoses Not on filedocumented in this encounter Additional Health Concerns Infection Onset Date Last Indicated Resolved Time COVID-19 Rule-Out 05/02/2022 05/02/2022 05/02/2022 8:19 PM EST documented as of this encounter Care Teams Car Dryer Relationship Specialty Start Date End Date Washington Brooks MD PCP - General Family Medicine 10/13/14 Hua Marquez Jr., DO [address] [address] [place] [address] Referring Gastroenterology 05/25/18 Ramirez Nieto MD [address] [place] [address] Primary Staff Physician Cardiology 12/31/20 Kat Leal, RN [facility] [address] [place] [address] Transplant Center 06/10/22 Kaiser Bucio [address] [phone] Referring Neurosurgery 11/07/22 [facility] 05/09/22 documented as of this encounter
--- OUTSIDE RECORDS SUMMARY | 2024-11-22 10:13 | XMS_ITS | Encounter Summary ---
Author Organization [facility] Address [address] [place] [address] Care Team Providers Care Sales Representative Womens Health Name Role Phone Washington Brooks MD Primary Care Provider [phone] Jimmy Escalante DO, David L Unavailable [phone] Ramirez Nieto MD Unavailable + [phone] Kat Leal RN Unavailable Unavailable Kaiser Bucio Unavailable Source Comments In the event this information is protected by the Federal Confidentiality of Alcohol and Drug AbusePatient Records regulations: The Federal rules restrict any use of the information to criminally investigate or prosecute any alcohol or drug abuse patient.[facility] Encounter Details Date Type Department Care Team (Late st Contact Info) Description 09/27/2024 Results Follow-Up Transplant Center [address] [phone] Kat Leal, COSMO [address] [address] Social History Tobacco Use Types Packs/Day Years [...] is lower risk 2 08/03/2022 Data from: https://www.neighborhoodatlas.[facility]/. Last address used for calculation [address] [facility] 08/03/2022 Sex and Gender Information Value Date [...] Encounter Note - Kat Leal RN - 09/28/2024 7:07 AM EDT Lab work reviewed and is consistent with recent lab values. Will continue to monitor labs. Kat Leal RN, BSN Liver Manager Graphic * Result Encounter Note - Kat Leal RN - 09/27/2024 12:13 PM EDT Lab work reviewed and is consistent with recent lab values. Will continue to monitor labs. Kat Leal RN, BSN Liver Manager Graphic * Result Encounter Note - Kat Leal RN - 09/27/2024 8:02 AM EDT Lab work reviewed and is consistent with recent lab values. Will continue to monitor labs. Kat Leal RN, BSN Liver Manager Graphic documented in this encounter Plan of Treatment Upcoming Encounters Date Type Department Care Team (Late st Contact Info) Description 12/16/2024 7:45 AM EDT [facility] Visit [facility] [address] [facility] [place] [address] lab 01/20/2025 7:45 AM EDT Office Visit [facility] [address] [facility] [place] [address] lab 02/17/2025 7:45 AM EST Office Visit [facility] [address] [facility] [place] [address] lab 03/17/2025 7:45 AM EST Office Visit [facility] [address] [facility] [place] [address] lab documented as of this encounter Visit Diagnoses Not on filedocumented in this encounter Care Teams Sales Representative Womens Health Relationship Specialty Start Date End Date Washington Brooks MD PCP - General Family Medicine 10/13/14 Hua Marquez Jr., 703 [facility] 151 [place] [address] Referring Gastroenterology 05/25/18 Ramirez Nieto MD [address] [place] [address] Primary Staff Physician Cardiology 12/31/20 Kat Leal, COSMO [facility] [address] [phone] Transplant Center 06/10/22 Kaiser Bucio 703 [facility] 350 [place] [address] Referring Neurosurgery 11/07/22 [facility] 05/09/22 documented as of this encounter
--- OUTSIDE RECORDS SUMMARY | 2024-11-22 10:13 | XMS_ITS | Encounter Summary ---
Author Organization [facility] Address [address] [place] [address] Care Team Providers Care Vascular Manager Name Role Phone Washington Brooks MD Primary Care Provider [phone] Jimmy Escalante DO, David L Unavailable [phone] Ramirez Nieto MD Unavailable + [phone] Kat Leal RN Unavailable Unavailable Kaiser Bucio Unavailable Source Comments In the event this information is protected by the Federal Confidentiality of Alcohol and Drug AbusePatient Records regulations: The Federal rules restrict any use of the information to criminally investigate or prosecute any alcohol or drug abuse patient.[facility] Encounter Details Date Type Department Care Team (Late st Contact Info) Description 09/20/2021 Patient Msg General Surgery [address] [phone] Kulwinder Landry MD [address] [place] [address] Request an Appointment Social History Tobacco Use Types Packs/Day [...] N ot on file 09/17/2021 Data from: https://www.neighborhoodatlas.medicine.[facility]/. Last address used for calculation [address] [facility] 09/17/2021 Sex and Gender Information Value Date Recorded Sex Assigned at Male 06/02/2020 10:20 AM EST Legal Sex Male 10:13 AM EDT Gender Identity Male 06/02/2020 10:20 AM EST Sexual Orientation Not on file COVID-19 Exposure Response Date Recorded In the last 10 days, have yo u been in contact with someone who was confirmed or suspected to have Coronavirus/COVID-19? Unable to assess 09/20/2021 1:14 PM EDT documented as of this encounter [...] Description 12/16/2024 7:45 AM EDT Office Visit [facility] [address] [place] [address] [place] [address] lab 01/20/2025 7:45 AM EDT Office Visit [facility] [address] [place] [address] [place] [address] lab 02/17/2025 7:45 AM EST Office Visit [facility] [address] [place] [address] [place] [address] lab 03/17/2025 7:45 AM EST Office Visit [facility] [address] [place] [address] [place] [address] lab documented as of this encounter Visit Diagnoses Not on filedocumented in this encounter Additional Health Concerns Infection Onset Date Last Indicated Resolved Time COVID-19 Rule-Out 11/12/2021 11/13/2021 11/13/2021 8:39 AM EDT COVID-19 Rule-Out 05/02/2022 05/02/2022 05/02/2022 8:19 PM EST documented as of this encounter Care Teams Vascular Manager Relationship Specialty Start Date End Date Washington Brooks MD PCP - General Family Medicine 10/13/14 Hua Marquez Jr., DO [address] [place] [address] [place] [address] Referring Gastroenterology 05/25/18 Ramirez Nieto MD [address]00 [place] [address] Primary Staff Physician Cardiology 12/31/20 Kat Leal, COSMO [facility] 9[address] [place] [address] Transplant Center 06/10/22 Kaiser Bucio [address] [place] [phone] Referring Neurosurgery 11/07/22 [facility] 05/09/22 documented as of this encounter
--- OUTSIDE RECORDS SUMMARY | 2024-11-22 10:13 | XMS_ITS | Encounter Summary ---
Author Organization [facility] Address [address] [place] [address] Care Team Providers Care Application Architect Name Role Phone Washington Brooks MD Primary Care Provider [phone] Jimmy Escalante DO, David L Unavailable [phone] Ramirez Nieto MD Unavailable + [phone] Kat Leal RN Unavailable Unavailable Kaiser Bucio Unavailable Source Comments In the event this information is protected by the Federal Confidentiality of Alcohol and Drug AbusePatient Records regulations: The Federal rules restrict any use of the information to criminally investigate or prosecute any alcohol or drug abuse patient.[facility] Encounter Details Date Type Department Care Team (Late st Contact Info) Description 09/26/2022 Patient Msg Transplant Center [address] [phone] Kat Leal, COSMO [address] [address] 04 of October holiday and out of office Social History Tobacco Use Types Packs/Day Years [...] is lower risk 2 08/03/2022 Data from: https://www.neighborhoodatlas.medicine.[facility]/. Last address used for calculation [address] [facility] 08/03/2022 Sex and Gender Information Value Date [...] Office Visit [facility] [address] [place] [place] [address] lab 01/20/2025 7:45 AM EDT Office Visit [facility] [address] [place] [place] [address] lab 02/17/2025 7:45 AM EST Office Visit [facility] [address] [place] [place] [address] lab 03/17/2025 7:45 AM EST Office Visit [facility] [address] [place] [place] [address] lab documented as of this encounter Visit Diagnoses Not on filedocumented in this encounter Care Teams Application Architect Relationship Specialty Start Date End Date Washington Brooks MD PCP - General Family Medicine 10/13/14 Hua Marquez Jr., DO [address] [address] Referring Gastroenterology 05/25/18 Ramirez Nieto MD [address]00 [place] [address] Primary Staff Physician Cardiology 12/31/20 Kat Leal, COSMO [facility] 9500 [place] [address] Transplant Center 06/10/22 Kaiser Bucio [address] [phone] Referring Neurosurgery 11/07/22 [facility] 05/09/22 documented as of this encounter
--- OUTSIDE RECORDS SUMMARY | 2024-11-22 10:13 | XMS_ITS | Clinical Summary ---
Author Organization [facility] Address [address] [place] [address] Phone Care Team Providers Care Mild Disabilities Teacher Name Role Phone Unavailable Primary Care Provider Unavailabl e Social History Tobacco Use Types Packs/Day Years Used Date Smoking Tobacco: Never Assessed Sex and Gender Information Value Date Recorded Sex Assigned at Not on file Legal Sex Male 12:09 AM EST Gender Identity Not on file Sexual Orientation Not on file Plan of Treatment Not on file
--- OUTSIDE RECORDS SUMMARY | 2024-11-22 10:13 | XMS_ITS | Encounter Summary ---
Author Organization [facility] Address [address] [place] [address] Care Team Providers Care Belt Knife Feeder Name Role Phone Washington Brooks MD Primary Care Provider [phone] Jimmy Escalante DO, David L Unavailable [phone] Ramirez Nieto MD Unavailable + [phone] Kat Leal RN Unavailable Unavailable Kaiser Bucio Unavailable Source Comments In the event this information is protected by the Federal Confidentiality of Alcohol and Drug AbusePatient Records regulations: The Federal rules restrict any use of the information to criminally investigate or prosecute any alcohol or drug abuse patient.[facility] Encounter Details Date Type Department Care Team (Late st Contact Info) Description 08/24/2022 Patient Msg Transplant Center [address] [phone] Kat Leal, COSMO [address] [address] Memorial Day holiday and out of office Social History [...] is lower risk 2 08/03/2022 Data from: https://www.neighborhoodatlas.[facility]/. Last address used for calculation [address] [facility] 08/03/2022 Sex and Gender Information Value Date [...] Description 12/16/2024 7:45 AM EDT Office Visit [facility] [address] [place] [address] lab 01/20/2025 7:45 AM EDT Office Visit [facility] [address] [place] [address] lab 02/17/2025 7:45 AM EST Office Visit [facility] [address] [place] [address] lab 03/17/2025 7:45 AM EST Office Visit [facility] [address] [place] [address] lab documented as of this encounter Visit Diagnoses Not on filedocumented in this encounter Care Teams Belt Knife Feeder Relationship Specialty Start Date End Date Washington Brooks MD PCP - General Family Medicine 10/13/14 Hua Marquez Jr., DO [address] [address] Referring Gastroenterology 05/25/18 Ramirez Nieto MD 9500 [place] [address] Primary Staff Physician Cardiology 12/31/20 Kat Leal, COSMO [facility] [address] [place] [address] Transplant Center 06/10/22 Kaiser Bucio [address] [phone] Referring Neurosurgery 11/07/22 [facility] 05/09/22 documented as of this encounter
--- OUTSIDE RECORDS SUMMARY | 2024-11-22 10:13 | XMS_ITS | Encounter Summary ---
Author Organization [facility] Address [address] [place] [address] Care Team Providers Care Bunghole Borer Name Role Phone Washington Brooks MD Primary Care Provider [phone] Jimmy Escalante DO, David L Unavailable [phone] Ramirez Nieto MD Unavailable + [phone] Kat Leal RN Unavailable Unavailable Kaiser Bucio Unavailable Source Comments In the event this information is protected by the Federal Confidentiality of Alcohol and Drug AbusePatient Records regulations: The Federal rules restrict any use of the information to criminally investigate or prosecute any alcohol or drug abuse patient.[facility] Encounter Details Date Type Department Care Team (Late st Contact Info) Description 09/13/2024 Results Follow-Up Transplant Center [address] [phone] Kat Leal, COSMO [address] [address] Social History Tobacco Use Types Packs/Day Years [...] risk 2 08/03/2022 Data from: https://www.neighborhoodatlas.[facility]/. Last address used for calculation [address] [facility] 08/03/2022 Sex and Gender Information Value Date [...] Encounter Note - Kat Leal RN - 09/16/2024 7:55 AM EDT Lab work reviewed and is consistent with recent lab values. Will continue to monitor labs. Kat Leal RN, BSN Liver Meterman * Result Encounter Note - Kat Leal RN - 09/13/2024 8:30 AM EDT Lab work reviewed and is consistent with recent lab values. Will continue to monitor labs. Kat Leal RN, BSN Liver Meterman documented in this encounter Plan of Treatment Upcoming Encounters Date Type Department Care Team (Late st Contact Info) Description 12/16/2024 7:45 AM EDT Office Visit [facility] [address] [facility] [place] [address] lab 01/20/2025 7:45 AM EDT Office [facility] [address] [facility] [place] [address] lab 02/17/2025 7:45 AM EST Office [facility] [address] [facility] [place] [address] lab 03/17/2025 7:45 AM EST Office [facility] [address] [facility] [place] [address] lab documented as of this encounter Visit Diagnoses Not on filedocumented in this encounter Care Teams Bunghole Borer Relationship Specialty Start Date End Date Washington Brooks MD PCP - General Family Medicine 10/13/14 Hua Marquez Jr., DO [address] [facility] 151 [place] [address] Referring Gastroenterology 05/25/18 Maverick-Ramirez Howe MD [address] [phone] Primary Staff Physician Cardiology 12/31/20 Kat Leal, RN [facility] [address] [place] [address] Transplant Center 06/10/22 Kaiser Bucio 703 [facility] 350 [place] [phone] Referring Neurosurgery 11/07/22 [facility] 05/09/22 documented as of this encounter
--- OUTSIDE RECORDS SUMMARY | 2024-11-22 10:13 | XMS_ITS | Encounter Summary ---
Author Organization [facility] Address [facility] [place] [address] Care Team Providers Care Industrial Economics Professor Name Role Phone Washington Brooks MD Primary Care Provider [phone] Jimmy Escalante DO, David L Unavailable [phone] Ramirez Nieto MD Unavailable + [phone] Kat Leal RN Unavailable Unavailable Kaiser Bucio Unavailable Source Comments In the event this information is protected by the Federal Confidentiality of Alcohol and Drug AbusePatient Records regulations: The Federal rules restrict any use of the information to criminally investigate or prosecute any alcohol or drug abuse patient.[facility] Encounter Details Date Type Department Care Team (Late st Contact Info) Description 06/01/2020 Patient Msg Gastroenterology [address] [phone] Dayna Purdy MD [address] [place] [address] Lab Results Social History Tobacco Use Types [...] N ot on file 03/08/2020 Data from: https://www.neighborhoodatlas.medicine.[facility].edu/. Last address used for calculation Not [...] have Coronavirus / COVID-19? No / Unsure 06/01/2020 11:24 AM EST documented as of this encounter Functional Status * Are you deaf or do you have serious difficulty hearing? Answer Date of Assessment Author No 10/25/2019 8:20 PM Michelle Lambert (Cosmo), RN * Are you blind or do you have serious difficulty seeing, even when wearing glasses? Answer Date of Assessment Author No 10/25/2019 8:20 PM Michelle Lambert (Cosmo), RN * Do you have serious difficulty walking or climbing stairs? Answer Date of Assessment Author No 10/25/2019 8:20 PM Michelle Lambert (Cosmo), RN * Do you have difficulty dressing or bathing? Answer Date of Assessment Author No 10/25/2019 8:20 PM Michelle Lambert (Rn), RN * Because of a physical, [...] Author No 10/25/2019 8:20 PM EDT Michelle FreedmanRn), RN documented in this encounter Plan of Treatment Upcoming Encounters Date Type Department Care Team (Late st Contact Info) Description 12/16/2024 7:45 AM EDT Office Visit [facility] [address] [address] lab 01/20/2025 7:45 AM EDT Office Visit [facility] [address] [address] lab 02/17/2025 7:45 AM EST Office Visit [facility] [address] [place] [address] lab 03/17/2025 7:45 AM EST Office Visit [facility] [address] [address] lab documented as of this encounter Visit Diagnoses Not on filedocumented in this encounter Additional Health Concerns Infection Onset Date Last Indicated Resolved Time COVID-19 Rule-Out 05/06/2021 05/06/2021 05/26/2021 8:51 PM EST COVID-19 Rule-Out 11/12/2021 11/13/2021 11/13/2021 8:39 AM EDT COVID-19 Rule-Out 05/02/2022 05/02/2022 05/02/2022 8:19 PM EST documented as of this encounter Care Teams Industrial Economics Professor Relationship Specialty Start Date End Date [place] Brooks MD PCP - General Family Medicine 10/13/14 Hua Marquez Jr., DO [address] [facility] 151 [place] [address] Referring Gastroenterology 05/25/18 Ramirze Nieto MD [address] [phone] Primary Staff Physician Cardiology 12/31/20 Kat Leal, COSMO [facility] [address] [phone] Transplant Center 06/10/22 Kaiser Bucio 703 [facility] 350 [place] [phone] Referring Neurosurgery 11/07/22 [facility] 05/09/22 documented as of this encounter
--- OUTSIDE RECORDS SUMMARY | 2024-11-22 10:13 | XMS_ITS | Encounter Summary ---
Author Organization [facility] Address [facility] [place] [address] Care Team Providers Care Synthetic Resin Operator Name Role Phone Washington Brooks MD Primary Care Provider [phone] Jimmy Escalante DO, David L Unavailable [phone] Ramirez Nieto MD Unavailable + [phone] Kat Leal RN Unavailable Unavailable Kaiser Bucio Unavailable Source Comments In the event this information is protected by the Federal Confidentiality of Alcohol and Drug AbusePatient Records regulations: The Federal rules restrict any use of the information to criminally investigate or prosecute any alcohol or drug abuse patient.[facility] Encounter Details Date Type Department Care Team (Late st Contact Info) Description 06/20/2020 Patient Msg Gastroenterology [address] [phone] Dayna Purdy MD [address] [place] [address] Results Social History Tobacco Use Types Packs/Day [...] N ot on file 03/08/2020 Data from: https://www.neighborhoodatlas.medicine.[facility].edu/. Last address used for calculation Not on [...] No 10/25/2019 8:20 PM EDT Michelle Freedman (Cosmo), RN * Are you blind or do you have serious difficulty seeing, even when wearing glasses? Answer Date of Assessment Author No 10/25/2019 8:20 PM CARMELLAT Michelle Freedman (Cosmo), RN * Do you have serious difficulty walking or climbing stairs? Answer Date of Assessment Author No 10/25/2019 8:20 PM EDT Michelle Freedman (Cosmo), RN * Do you have difficulty dressing or bathing? Answer Date of Assessment Author No 10/25/2019 8:20 PM EDT Michelle Freedman (Rn), RN * Because of a physical, [...] Description 12/16/2024 7:45 AM EDT Office Visit [facility] [address] [place] [address] lab 01/20/2025 7:45 AM EDT Office Visit [facility] [address] [place] [address] lab 02/17/2025 7:45 AM EST Office Visit [facility] [address] [place] [address] lab 03/17/2025 7:45 AM EST Office Visit [facility] [address] [place] [address] lab documented as of this encounter Visit Diagnoses Not on filedocumented in this encounter Additional Health Concerns Infection Onset Date Last Indicated Resolved Time COVID-19 Rule-Out 05/06/2021 05/06/2021 05/26/2021 8:51 PM EST COVID-19 Rule-Out 11/12/2021 11/13/2021 11/13/2021 8:39 AM EDT COVID-19 Rule-Out 05/02/2022 05/02/2022 05/02/2022 8:19 PM EST documented as of this encounter Care Teams Synthetic Resin Operator Relationship Specialty Start Date End Date Washington Brooks MD PCP - General Family Medicine 10/13/14 Hua Marquez Jr., DO [address] [facility] 151 [place] [address] Referring Gastroenterology 05/25/18 Ramirez Nieto MD [address] [phone] Primary Staff Physician Cardiology 12/31/20 Kat Leal, COSMO [facility] [address] [phone] Transplant Center 06/10/22 Kaiser Bucio [address] [facility] [address] [place] [phone] Referring Neurosurgery 11/07/22 [facility] 05/09/22 documented as of this encounter
--- OUTSIDE RECORDS SUMMARY | 2024-11-22 10:13 | XMS_ITS | Encounter Summary ---
Author Organization [facility] Address [address] [place] [address] Care Team Providers Care Auto Rebuilder Name Role Phone Washington Brooks MD Primary Care Provider [phone] Jimmy Escalante DO, David L Unavailable [phone] Ramirez Nieto MD Unavailable + [phone] Kat Leal RN Unavailable Unavailable Kaiser Bucio Unavailable Source Comments In the event this information is protected by the Federal Confidentiality of Alcohol and Drug AbusePatient Records regulations: The Federal rules restrict any use of the information to criminally investigate or prosecute any alcohol or drug abuse patient.[facility] Encounter Details Date Type Department Care Team (Late st Contact Info) Description 02/20/2023 Patient Msg Transplant Center [address] [phone] Kat Leal, COSMO [address] [address] Social History Tobacco Use Types Packs/Day Years [...] lower risk 2 08/03/2022 Data from: https://www.neighborhoodatlas.medicine.[facility]/. Last address used for calculation [address] [facility] 08/03/2022 Sex and Gender Information Value [...] Description 12/16/2024 7:45 AM EDT Office Visit [facility] [address] [place] [address] lab 01/20/2025 7:45 AM EDT Office Visit [facility] [address] [place] [address] lab 02/17/2025 7:45 AM EST Office Visit [facility] [address] [place] [address] lab 03/17/2025 7:45 AM EST Office Visit [facility] [address] [place] [address] lab documented as of this encounter Visit Diagnoses Not on filedocumented in this encounter Care Teams Auto Rebuilder Relationship Specialty Start Date End Date Washington Brooks MD PCP - General Family Medicine 10/13/14 Hua Marquez Jr., DO [address] [address] Referring Gastroenterology 05/25/18 Ramirez Nieto MD 9500 [place] [address] Primary Staff Physician Cardiology 12/31/20 Kat Leal, COSMO [facility] [address] [place] [address] Transplant Center 06/10/22 Kaiser Bucio [address] [phone] Referring Neurosurgery 11/07/22 [facility] 05/09/22 documented as of this encounter
--- OUTSIDE RECORDS SUMMARY | 2024-11-22 10:13 | XMS_ITS | Encounter Summary ---
Author Organization [facility] Address [address] [place] [address] Care Team Providers Care Bushel Girl Name Role Phone Washington Brooks MD Primary Care Provider [phone] Jimmy Escalante DO, David L Unavailable [phone] Ramirez Nieto MD Unavailable + [phone] Kat Leal RN Unavailable Unavailable Kaiser Bucio Unavailable Source Comments In the event this information is protected by the Federal Confidentiality of Alcohol and Drug AbusePatient Records regulations: The Federal rules restrict any use of the information to criminally investigate or prosecute any alcohol or drug abuse patient.[facility] Encounter Details Date Type Department Care Team (Late st Contact Info) Description 03/20/2024 Patient Msg Transplant Center [address] [phone] Kat Leal, COSMO [address] [address] Observation of and holidays, out of office Social History Tobacco Use [...] is lower risk 2 08/03/2022 Data from: https://www.neighborhoodatlas.medicine.[facility].edu/. Last address used for calculation [address] [facility] 08/03/2022 Sex and Gender Information Value Date [...] Description 12/16/2024 7:45 AM EDT Office Visit [facility] [address] [place] [address] lab 01/20/2025 7:45 AM EDT Office Visit [facility] [address] [place] [address] lab 02/17/2025 7:45 AM EST Office Visit [facility] [address] [place] [address] lab 03/17/2025 7:45 AM EST Office Visit [facility] [address] [place] [place] [address] lab documented as of this encounter Visit Diagnoses Not on filedocumented in this encounter Care Teams Bushel Girl Relationship Specialty Start Date End Date Washington Brooks MD PCP - General Family Medicine 10/13/14 Hua Marquez Jr., DO [address] [address] Referring Gastroenterology 05/25/18 Ramirez Nieto MD 9500 [place] [address] Primary Staff Physician Cardiology 12/31/20 Kat Leal, COSMO [facility] 9500 [place] [address] Transplant Center 06/10/22 Kaiser Bucio [address] [phone] Referring Neurosurgery 11/07/22 [facility] 05/09/22 documented as of this encounter
--- OUTSIDE RECORDS SUMMARY | 2024-11-22 10:13 | XMS_ITS | Encounter Summary ---
Author Organization [facility] Address [address] [place] [address] Care Team Providers Care Mental Health Nurse Name Role Phone Washington Brooks MD Primary Care Provider [phone] Jimmy Escalante DO, David L Unavailable [phone] Ramirez Nieto MD Unavailable + [phone] Kat Leal RN Unavailable Unavailable Kaiser Bucio Unavailable Source Comments In the event this information is protected by the Federal Confidentiality of Alcohol and Drug AbusePatient Records regulations: The Federal rules restrict any use of the information to criminally investigate or prosecute any alcohol or drug abuse patient.[facility] Reason for Visit * Reason Comments Radiology US Encounter Details Date Type Department Care Team (Late st Contact Info) Description 12/22/2021 Radiology Ultrasound [address] [place] [address] Toshia Walton RT(R) Radiology US Social History Tobacco Use Types Packs/Day Years [...] N ot on file 09/17/2021 Data from: https://www.neighborhoodatlas.medicine.[facility]/. Last address used for calculation [address] [facility] 09/17/2021 Sex and Gender Information Value Date Recorded Sex Assigned at Male 06/02/2020 10:20 AM EST Legal Sex Male 10:13 AM EDT Gender Identity Male 06/02/2020 10:20 AM EST Sexual Orientation Not on file COVID-19 Exposure Response Date Recorded In the last 10 days, have yo u been in contact with someone who was confirmed or suspected to have Coronavirus/COVID-19? No / Unsure 12/20/2021 9:19 AM EDT documented as of this encounter [...] Luciano Mcconnell RN documented in this encounter Progress Notes * Toshia Walton RT(R) - 12/22/2021 9:20 AM EDT Radiology Service Progress Note PATIENT NAME: Washington Rodriguez DATE OF SERVICE: December 22, 2021 TIME: 9:20 AM PATIENT IDENTITY VERIFICATION COMPLETED USING TWO (2) IDENTIFIERS: Name and Date of confirmedby patient verbally. FALL SCREENING: Has the patient had 2 falls in the last year or 1 fall with injury or currently using an Ambulatory Assistive Device (Walker, Cane, Wheelchair, Crutches, etc.)? No PATIENT GENDER DATA: Male PATIENT RELEVANT IMPLANT DATA REVIEWED: Not Applicable RADIOLOGY DEPARTMENT: Ultrasound PERIPHERAL IV DATA: Not applicable SIGNED BY: RT Tim(Kelsey) December 22, 2021 9:20 AM documented in this encounter Plan of Treatment Upcoming Encounters Date Type Department Care Team (Late st Contact Info) Description 12/16/2024 7:45 AM EDT Office Visit [facility] [address] [facility] [address] [place] [address] lab 01/20/2025 7:45 AM EDT Office Visit [facility] [address] [place] [address] lab 02/17/2025 7:45 AM EST Office Visit [facility] [address] [place] [address] lab 03/17/2025 7:45 AM EST Office Visit [facility] [address] [place] [address] lab documented as of this encounter Visit Diagnoses Not on filedocumented in this encounter Additional Health Concerns Infection Onset Date Last Indicated Resolved Time COVID-19 Rule-Out 05/02/2022 05/02/2022 05/02/2022 8:19 PM EST documented as of this encounter Care Teams Mental Health Nurse Relationship Specialty Start Date End Date Washington Brooks MD PCP - General Family Medicine 10/13/14 Hua Marquez Jr., DO [address] [facility] 151 [place] [address] Referring Gastroenterology 05/25/18 Ramirez Nieto MD 9500 [place] [address] Primary Staff Physician Cardiology 12/31/20 Kat Leal, COSMO [facility] 9500 [place] [address] Transplant Center 06/10/22 Kasier Bucio 703 [facility] 350 [place] [phone] Referring Neurosurgery 11/07/22 [facility] 05/09/22 documented as of this encounter
--- OUTSIDE RECORDS SUMMARY | 2024-11-22 10:13 | XMS_ITS | Encounter Summary ---
Author Organization [facility] Address [address] [place] [address] Care Team Providers Care Supervisor Poultry Farm Name Role Phone Washington Brooks MD Primary Care Provider [phone] Jimmy Escalante DO, David L Unavailable [phone] Ramirez Nieto MD Unavailable + [phone] Kat Leal RN Unavailable Unavailable Kaiser Bucio Unavailable Source Comments In the event this information is protected by the Federal Confidentiality of Alcohol and Drug AbusePatient Records regulations: The Federal rules restrict any use of the information to criminally investigate or prosecute any alcohol or drug abuse patient.[facility] Encounter Details Date Type Department Care Team (Late st Contact Info) Description 08/22/2024 Patient Msg Transplant Center [address] [phone] Kat Leal, COSMO [address] [address] Observation of Social History Tobacco Use Types Packs/Day Years [...] is lower risk 2 08/03/2022 Data from: https://www.neighborhoodatlas.medicine.[facility]/. Last address used for calculation [address] [facility] 08/03/2022 Sex and Gender Information [...] Office Visit [facility] [address] [address] lab 01/20/2025 7:45 AM EDT Office Visit [facility] [address] [place] [address] lab 02/17/2025 7:45 AM EST Office Visit [facility] [address] [place] [address] lab 03/17/2025 7:45 AM EST Office Visit [facility] [address] [place] [address] lab documented as of this encounter Visit Diagnoses Not on filedocumented in this encounter Care Teams Supervisor Poultry Farm Relationship Specialty Start Date End Date Washington Brooks MD PCP - General Family Medicine 10/13/14 Hua Marquez Jr., DO [address] [address] Referring Gastroenterology 05/25/18 Ramirez Nieto MD 9500 [place] [address] Primary Staff Physician Cardiology 12/31/20 Kat Leal, COSMO [facility] [address] [place] [address] Transplant Center 06/10/22 Kaiser Bucio [address] [phone] Referring Neurosurgery 11/07/22 [facility] 05/09/22 documented as of this encounter
--- OUTSIDE RECORDS SUMMARY | 2024-11-22 10:13 | XMS_ITS | Encounter Summary ---
Author Organization [facility] Address [facility] [place] [address] Care Team Providers Care Physician Scribe Name Role Phone Washington Brooks MD Primary Care Provider [phone] Jimmy Escalante DO, David L Unavailable [phone] Ramirez Nieto MD Unavailable + [phone] Kat Leal RN Unavailable Unavailable Kaiser Bucio [...] Care Team (Late st Contact Info) Description 12/05/2021 Patient Msg Gastroenterology [address] [phone] Dayna Purdy MD [address] [place] [address] Liver Labs Social History Tobacco Use Types [...] N ot on file 09/17/2021 Data from: https://www.neighborhoodatlas.[facility].edu/. Last address used for calculation [address] [facility] 09/17/2021 Sex and Gender Information Value [...] suspected to have Coronavirus/COVID-19? No / Unsure 12/08/2021 12:58 PM EDT documented as of this encounter [...] Description 12/16/2024 7:45 AM EDT Office Visit [facility] [address] [place] [address] lab 01/20/2025 7:45 AM EDT Office Visit [facility] [address] [facility] [place] [address] lab 02/17/2025 7:45 AM EST Office Visit [facility] [address] [facility] [place] [address] lab 03/17/2025 7:45 AM EST Office Visit [facility] [address] [place] [place] [address] lab documented as of this encounter Visit Diagnoses Not on filedocumented in this encounter Additional Health Concerns Infection Onset Date Last Indicated Resolved Time COVID-19 Rule-Out 05/02/2022 05/02/2022 05/02/2022 8:19 PM EST documented as of this encounter Care Teams Physician Scribe Relationship Specialty Start Date End Date Washington Brooks MD PCP - General Family Medicine 10/13/14 Hua Marquez Jr., DO [address] [address] [place] [address] Referring Gastroenterology 05/25/18 Ramirez Nieto MD 9500 [place] [address] Primary Staff Physician Cardiology 12/31/20 Kat Leal, RN [facility] [address] [place] [address] Transplant Center 06/10/22 Kaiser Bucio [address] [phone] Referring Neurosurgery 11/07/22 [facility] 05/09/22 documented as of this encounter
--- OUTSIDE RECORDS SUMMARY | 2024-11-22 10:13 | XMS_ITS | Encounter Summary ---
Author Organization [facility] Address [facility] [place] [address] Care Team Providers Care Restaurant Shift Supervisor Name Role Phone Washington Brooks MD Primary Care Provider [phone] Jimmy Escalante DO, David L Unavailable [phone] Ramirez Nieto MD Unavailable + [phone] Kat Leal RN Unavailable Unavailable Kaiser Bucio Unavailable Source Comments In the event this information is protected by the Federal Confidentiality of Alcohol and Drug AbusePatient Records regulations: The Federal rules restrict any use of the information to criminally investigate or prosecute any alcohol or drug abuse patient.[facility] Encounter Details Date Type Department Care Team (Late st Contact Info) Description 12/20/2021 Patient Msg Gastroenterology [address] [phone] Dayna Purdy MD [address] [place] [address] Labs Social History Tobacco Use Types Packs/Day [...] N ot on file 09/17/2021 Data from: https://www.neighborhoodatlas.medicine.[facility].edu/. Last address used for calculation [address] [facility] 09/17/2021 Sex and Gender Information Value [...] Description 12/16/2024 7:45 AM EDT Office Visit [facility] [address] [place] [address] lab 01/20/2025 7:45 AM EDT Office Visit [facility] [address] [facility] [place] [address] lab 02/17/2025 7:45 AM EST Office Visit [facility] [address] [facility] [place] [address] lab 03/17/2025 7:45 AM EST Office Visit [facility] [address] [place] [address] lab documented as of this encounter Visit Diagnoses Not on filedocumented in this encounter Additional Health Concerns Infection Onset Date Last Indicated Resolved Time COVID-19 Rule-Out 05/02/2022 05/02/2022 05/02/2022 8:19 PM EST documented as of this encounter Care Teams Restaurant Shift Supervisor Relationship Specialty Start Date End Date Washington Brooks MD PCP - General Family Medicine 10/13/14 Hua Marquez Jr., DO [address] [address] [place] [address] Referring Gastroenterology 05/25/18 Ramirez Nieto MD 9500 [place] [address] Primary Staff Physician Cardiology 12/31/20 Kat Leal, RN [facility] 10[address] [place] [address] Transplant Center 06/10/22 Kaiser Bucio [address] [phone] Referring Neurosurgery 11/07/22 [facility] 05/09/22 documented as of this encounter
--- OUTSIDE RECORDS SUMMARY | 2024-11-22 10:13 | XMS_ITS | Encounter Summary ---
Author Organization [facility] Address [address] [place] [address] Care Team Providers Care Business Development Officer Name Role Phone Washington Brooks MD Primary Care Provider [phone] Jimmy Escalante DO, David L Unavailable [phone] Ramirez Nieto MD Unavailable + [phone] Kat Leal RN Unavailable Unavailable Kaiser Bucio Unavailable Source Comments In the event this information is protected by the Federal Confidentiality of Alcohol and Drug AbusePatient Records regulations: The Federal rules restrict any use of the information to criminally investigate or prosecute any alcohol or drug abuse patient.[facility] Encounter Details Date Type Department Care Team (Late st Contact Info) Description 10/21/2024 Results Follow-Up Transplant Center [address] [phone] Kat Leal, COSMO [address] [address] Social History Tobacco Use Types Packs/Day Years [...] is lower risk 2 08/03/2022 Data from: https://www.neighborhoodatlas.[facility]/. Last address used for calculation [address] [facility] 08/03/2022 Sex and Gender Information Value [...] Encounter Note - Kat Leal RN - 10/22/2024 8:49 AM EDT Lab work reviewed and is consistent with recent lab values. Will continue to monitor labs. Kat Leal RN, BSN Liver Hair Preparer * Result Encounter Note - Kat Leal RN - 10/21/2024 8:37 AM EDT Lab work reviewed and is consistent with recent lab values. Will continue to monitor labs. Kat Leal RN, BSN Liver Hair Preparer * Result Encounter Note - Kat Leal RN - 10/21/2024 8:06 AM EDT Lab work reviewed and is consistent with recent lab values. Will continue to monitor labs. Kat Leal RN, BSN Liver Hair Preparer documented in this encounter Plan of Treatment Upcoming Encounters Date Type Department Care Team (Late st Contact Info) Description 12/16/2024 7:45 AM EDT Office Visit [facility] [address] [place] [address] lab 01/20/2025 7:45 AM EDT Office Visit [facility] [address] [place] [address] lab 02/17/2025 7:45 AM EST Office Visit [facility] [address] [place] [address] lab 03/17/2025 7:45 AM EST Office Visit [facility] [address] [place] [address] lab documented as of this encounter Visit Diagnoses Not on filedocumented in this encounter Care Teams Business Development Officer Relationship Specialty Start Date End Date Washington Brooks MD PCP - General Family Medicine 10/13/14 Hua Marquez Jr., 703 [facility] 151 [place] [address] Referring Gastroenterology 05/25/18 Ramirez Nieto MD 8[address] [place] [address] Primary Staff Physician Cardiology 12/31/20 Kat Leal, COSMO [facility] [address] [phone] Transplant Center 06/10/22 Kaiser Bucio 703 [facility] 350 [place] [phone] Referring Neurosurgery 11/07/22 [facility] 05/09/22 documented as of this encounter
--- OUTSIDE RECORDS SUMMARY | 2024-11-22 10:13 | XMS_ITS | Encounter Summary ---
Author Organization [facility] Address [facility] [place] [address] Care Team Providers Care Hinging Machine Operator Name Role Phone Washington Brooks MD Primary Care Provider [phone] Jimmy Escalante DO, David L Unavailable [phone] Ramirez Nieto MD Unavailable + [phone] Kat Leal RN Unavailable Unavailable Kaiser Bucio Unavailable Source Comments In the event this information is protected by the Federal Confidentiality of Alcohol and Drug AbusePatient Records regulations: The Federal rules restrict any use of the information to criminally investigate or prosecute any alcohol or drug abuse patient.[facility] Encounter Details Date Type Department Care Team (Late st Contact Info) Description 2024 [place] [address] Provider, f Medicare Coverage of Physical Exams Social History Tobacco Use Types Packs/Day Years [...] lower risk 2 08/03/2022 Data from: https://www.neighborhoodatlas.medicine.[facility].edu/. Last address used for calculation [address] 08/[birth year]/2022 Sex and Gender Information Value [...] Description 12/16/2024 7:45 AM EDT Office Visit [facility] [address] [place] [address] lab 01/20/2025 7:45 AM EDT Office Visit [facility] [address] [place] [address] lab 02/17/2025 7:45 AM EST Office Visit [facility] [address] [place] [address] lab 03/17/2025 7:45 AM EST Office Visit [facility] [address] [place] [address] lab documented as of this encounter Visit Diagnoses Not on filedocumented in this encounter Care Teams Hinging Machine Operator Relationship Specialty Start Date End Date Washington Brooks MD PCP - General Family Medicine 10/13/14 Hua Marquez Jr., DO [address] [address] Referring Gastroenterology 05/25/18 Ramirez Nieto MD [address] [place] [address] Primary Staff Physician Cardiology 12/31/20 Kat Leal, COSMO [facility] [address] [place] [address] Transplant Center 06/10/22 Kaiser Bucio [address] [facility] [address] [place] [phone] Referring Neurosurgery 11/07/22 [facility] 05/09/22 documented as of this encounter
--- OUTSIDE RECORDS SUMMARY | 2024-11-22 10:13 | XMS_ITS | Encounter Summary ---
Author Organization [facility] Address [address] [place] [address] Care Team Providers Care Transportation Assistant Name Role Phone Washington Brooks MD Primary Care Provider [phone] Jimmy Escalante DO, David L Unavailable [phone] Ramirez Nieto MD Unavailable + [phone] Kat Leal RN Unavailable Unavailable Kaiser Bucio Unavailable Source Comments In the event this information is protected by the Federal Confidentiality of Alcohol and Drug AbusePatient Records regulations: The Federal rules restrict any use of the information to criminally investigate or prosecute any alcohol or drug abuse patient.[facility] Encounter Details Date Type Department Care Team (Late st Contact Info) Description 10/20/2022 Patient Msg Internal Medicine [address] [place] [place] [address] Provider, Ccf Important reminder to check expiration dates on collection tubes in lab kits Social History Tobacco Use Types Packs/Day Years [...] is lower risk 2 08/03/2022 Data from: https://www.neighborhoodatlas.medicine.[facility]/. Last address used for calculation [address] 08/03/2022 Sex and Gender Information [...] Description 12/16/2024 7:45 AM EDT Office Visit [facility] [address] [place] [address] lab 01/20/2025 7:45 AM EDT Office Visit [facility] [address] [place] [address] lab 02/17/2025 7:45 AM EST Office Visit [facility] [address] [place] [address] lab 03/17/2025 7:45 AM EST Office Visit [facility] [address] [place] [address] lab documented as of this encounter Visit Diagnoses Not on filedocumented in this encounter Care Teams Transportation Assistant Relationship Specialty Start Date End Date Washington Brooks MD PCP - General Family Medicine 10/13/14 Hua Marquez Jr., DO [address] [address] Referring Gastroenterology 05/25/18 Ramirez Nieto MD [address] [place] [address] Primary Staff Physician Cardiology 12/31/20 Kat Leal, COSMO [facility] [address] [place] [address] Transplant Center 06/10/22 Kaiser Bucio [address] [phone] Referring Neurosurgery 11/07/22 [facility] 05/09/22 documented as of this encounter
--- OUTSIDE RECORDS SUMMARY | 2024-11-22 10:13 | XMS_ITS | Encounter Summary ---
Author Organization [facility] Address [address] [place] [address] Care Team Providers Care Laborer Tan House Name Role Phone Washington Brooks MD Primary Care Provider [phone] Jimmy Escalante DO, David L Unavailable [phone] Ramirez Nieto MD Unavailable + [phone] Kat Leal RN Unavailable Unavailable Kaiser Bucio Unavailable Source Comments In the event this information is protected by the Federal Confidentiality of Alcohol and Drug AbusePatient Records regulations: The Federal rules restrict any use of the information to criminally investigate or prosecute any alcohol or drug abuse patient.[facility] Encounter Details Date Type Department Care Team (Late st Contact Info) Description 04/17/2020 Patient Msg Gastroenterology [address] [phone] Provider, Ccf Colonoscopy prep instructions Social History Tobacco Use Types Packs/Day Years Used Date Smoking Tobacco: Former Cigarettes 1 41.8 0 05/30/1977 - 04/2019 Smokeless Tobacco: Never Comments:Quit April 0 Alcohol Use Standard Drinks/Week [...] N ot on file 03/08/2020 Data from: https://www.neighborhoodatlas.medicine.[facility].edu/. Last address used for calculation Not on [...] Assessment Author No 10/25/2019 8:20 PM Michelle Labmert) RN * Are you blind or do you have serious difficulty seeing, even when wearing glasses? Answer Date of Assessment Author No 10/25/2019 8:20 PM Michelle Lambert), RN * Do you have serious difficulty walking or climbing stairs? Answer Date of Assessment Author No 10/25/2019 8:20 PM Michelle Lambert) RN * Do you have difficulty dressing or bathing? Answer Date of Assessment Author No 10/25/2019 8:20 PM Michelle Lambert), RN * Because of a physical, mental, or emotional condition, do you have difficulty doing errands alone such as visiting a doctor's office or shopping? Answer Date of Assessment Author No 10/25/2019 8:20 PM Michelle Lambert)COSMO documented as of this encounter Mental Status [...] Visit [facility] [address] [place] [address] lab 01/20/2025 7:45 AM EDT Office Visit [facility] [address] [place] [address] lab 02/17/2025 7:45 AM EST Office Visit [facility] [address] [place] [address] lab 03/17/2025 7:45 AM EST Office Visit [facility] [address] [place] [address] lab documented as of this encounter Visit Diagnoses Not on filedocumented in this encounter Additional Health Concerns Infection Onset Date Last Indicated Resolved Time COVID-19 Rule-Out 05/06/2021 05/06/2021 05/26/2021 8:51 PM EST COVID-19 Rule-Out 11/12/2021 11/13/2021 11/13/2021 8:39 AM EDT COVID-19 Rule-Out 05/02/2022 05/02/2022 05/02/2022 8:19 PM EST documented as of this encounter Care Teams Laborer Tan House Relationship Specialty Start Date End Date Washington Brooks MD PCP - General Family Medicine 10/13/14 Hua Marquez Jr., [address] [address] Referring Gastroenterology 05/25/18 Ramirez Nieto MD [address] [place] [address] Primary Staff Physician Cardiology 12/31/20 Kat Leal, RN [facility] [address] [place] [address] Transplant Center 06/10/22 Kaiser Bucio [address] [phone] Referring Neurosurgery 11/07/22 [facility] 05/09/22 documented as of this encounter
--- OUTSIDE RECORDS SUMMARY | 2024-11-22 10:13 | XMS_ITS | Encounter Summary ---
Author Organization [facility] Address [facility] [place] [address] Care Team Providers Care Chip Drier Name Role Phone Washington Brooks MD Primary Care Provider [phone] Jimmy Escalante DO, David L Unavailable [phone] Ramirez Nieto MD Unavailable + [phone] Kat Leal RN Unavailable Unavailable [facility] Bucio Unavailable Source Comments In the event this information is protected by the Federal Confidentiality of Alcohol and Drug AbusePatient Records regulations: The Federal rules restrict any use of the information to criminally investigate or prosecute any alcohol or drug abuse patient.[facility] Encounter Details Date Type Department Care Team (Late st Contact Info) Description 05/27/2020 Patient Msg Gastroenterology [address] [phone] Provider, Ccf hepatology appointment Social History Tobacco Use Types Packs/Day Years [...] ot on file 03/08/2020 Data from: https://www.neighborhoodatlas.medicine.[facility].edu/. Last address used for calculation [...] 10/25/2019 8:20 PM Michelle Lambert) RN * Are you blind or do you have serious difficulty seeing, even when wearing glasses? Answer Date of Assessment Author No 10/25/2019 8:20 PM Michelle Lambert), RN * Do you have serious difficulty walking or climbing stairs? Answer Date of Assessment Author No 10/25/2019 8:20 PM Michelle Lambert), RN * Do you have difficulty dressing [...] Office Visit [facility] [address] [place] [address] lab 01/20/2025 7:45 AM EDT Office Visit [facility] [address] [place] [address] lab 02/17/2025 7:45 AM EST Office Visit [facility] [address] [place] [address] lab 03/17/2025 7:45 AM EST Office Visit [facility] [address] [place] [place] [address] lab documented as of this encounter Visit Diagnoses Not on filedocumented in this encounter Additional Health Concerns Infection Onset Date Last Indicated Resolved Time COVID-19 Rule-Out 05/06/2021 05/06/2021 05/26/2021 8:51 PM EST COVID-19 Rule-Out 11/12/2021 11/13/2021 11/13/2021 8:39 AM EDT COVID-19 Rule-Out 05/02/2022 05/02/2022 05/02/2022 8:19 PM EST documented as of this encounter Care Teams Chip Drier Relationship Specialty Start Date End Date Washington Brooks MD PCP - General Family Medicine 10/13/14 Hua Marquez Jr., [address] [address] Referring Gastroenterology 05/25/18 Ramirez Nieto MD [address] [place] [address] Primary Staff Physician Cardiology 12/31/20 Kat Leal, RN [facility] [address] [place] [address] Transplant Center 06/10/22 Kaiser Bucio [address] [phone] Referring Neurosurgery 11/07/22 [facility] 05/09/22 documented as of this encounter
--- OUTSIDE RECORDS SUMMARY | 2024-11-22 10:13 | XMS_ITS | Encounter Summary ---
Author Organization [facility] Address [facility] [place] [address] Care Team Providers Care Social Research Assistant Name Role Phone Washington Brooks MD Primary Care Provider [phone] Jimmy Escalante DO, David L Unavailable [phone] Ramirez Nieto MD Unavailable + [phone] Kat Leal RN Unavailable Unavailable Kaiser Bucio Unavailable Source Comments In the event this information is protected by the Federal Confidentiality of Alcohol and Drug AbusePatient Records regulations: The Federal rules restrict any use of the information to criminally investigate or prosecute any alcohol or drug abuse patient.[facility] Encounter Details Date Type Department Care Team (Late st Contact Info) Description 02/11/2022 Patient Msg Gastroenterology [address] [phone] Dayna Purdy MD [address] [place] [address] Ascites Social History Tobacco Use Types Packs/Day Years [...] N ot on file 09/17/2021 Data from: https://www.neighborhoodatlas.[facility].edu/. Last address used for calculation [address] 09/17/2021 Sex and Gender Information Value Date Recorded Sex Assigned at Male 06/02/2020 10:20 AM EST Legal Sex Male 10:13 AM EDT Gender Identity Male 06/02/2020 10:20 AM EST Sexual Orientation Not on file COVID-19 Exposure Response Date Recorded In the last 10 days, have yo u been in contact with someone who was confirmed or suspected to have Coronavirus/COVID-19? No / Unsure 02/11/2022 11:41 AM EST documented as of this encounter [...] Description 12/16/2024 7:45 AM EDT Office Visit [facility] [address] [place] [address] lab 01/20/2025 7:45 AM EDT Office Visit [facility] [address] [facility] [place] [address] lab 02/17/2025 7:45 AM EST Office Visit [facility] [address] [place] [address] lab 03/17/2025 7:45 AM EST Office Visit [facility] [address] [place] [place] [address] lab documented as of this encounter Visit Diagnoses Not on filedocumented in this encounter Additional Health Concerns Infection Onset Date Last Indicated Resolved Time COVID-19 Rule-Out 05/02/2022 05/02/2022 05/02/2022 8:19 PM EST documented as of this encounter Care Teams Social Research Assistant Relationship Specialty Start Date End Date Washington Brooks MD PCP - General Family Medicine 10/13/14 Hua Marquez Jr., DO [address] [address] [place] [address] Referring Gastroenterology 05/25/18 Ramirez Nieto MD [address] [place] [address] Primary Staff Physician Cardiology 12/31/20 Kat Leal, RN [facility] [address] [place] [address] Transplant Center 06/10/22 Kaiser Bucio [address] [phone] Referring Neurosurgery 11/07/22 [facility] 05/09/22 documented as of this encounter
--- OUTSIDE RECORDS SUMMARY | 2024-11-22 10:13 | XMS_ITS | Encounter Summary ---
Author Organization [facility] Address [address] [place] [address] Care Team Providers Care Autotransfusionist Name Role Phone Washington Brooks MD Primary Care Provider [phone] Jimmy Escalante DO, David L Unavailable [phone] Ramirez Nieto MD Unavailable + [phone] Kat Leal RN Unavailable Unavailable Kaiser Bucio Unavailable Source Comments In the event this information is protected by the Federal Confidentiality of Alcohol and Drug AbusePatient Records regulations: The Federal rules restrict any use of the information to criminally investigate or prosecute any alcohol or drug abuse patient.[facility] Encounter Details Date Type Department Care Team (Late st Contact Info) Description 12/02/2022 Patient Msg Transplant Center [address] [phone] Kat Leal, COSMO [address] [address] Social History Tobacco Use Types Packs/Day Years [...] lower risk 2 08/03/2022 Data from: https://www.neighborhoodatlas.medicine.[facility]/. Last address used for calculation [address] 08/03/2022 Sex and Gender Information Value [...] EDT Office Visit [facility] [address] [place] [address] lab 01/20/2025 7:45 AM EDT Office Visit [facility] [address] [place] [address] lab 02/17/2025 7:45 AM EST Office Visit [facility] [address] [place] [address] lab 03/17/2025 7:45 AM EST Office Visit [facility] [address] [place] [address] lab documented as of this encounter Visit Diagnoses Not on filedocumented in this encounter Care Teams Autotransfusionist Relationship Specialty Start Date End Date Washington Brooks MD PCP - General Family Medicine 10/13/14 Hua Marquez Jr., DO [address] [address] Referring Gastroenterology 05/25/18 Ramirez Nieto MD [address] [place] [address] Primary Staff Physician Cardiology 12/31/20 Kat Leal, COSMO [facility] [address] [place] [address] Transplant Center 06/10/22 Kaiser Bucio [address] [phone] Referring Neurosurgery 11/07/22 [facility] 05/09/22 documented as of this encounter
--- OUTSIDE RECORDS SUMMARY | 2024-11-22 10:13 | XMS_ITS | Encounter Summary ---
Author Organization [facility] Address [facility] [place] [address] Care Team Providers Care Stave Hewer Name Role Phone Washington Brooks MD Primary Care Provider [phone] Jimmy Escalante DO, David L Unavailable [phone] Ramirez Nieto MD Unavailable + [phone] Kat Leal RN Unavailable Unavailable Kaiser Bucio Unavailable Source Comments In the event this information is protected by the Federal Confidentiality of Alcohol and Drug AbusePatient Records regulations: The Federal rules restrict any use of the information to criminally investigate or prosecute any alcohol or drug abuse patient.[facility] Encounter Details Date Type Department Care Team (Late st Contact Info) Description 02/01/2022 Patient Msg Gastroenterology [address] [phone] Dayna Purdy MD [address] [place] [address] Liver Tests Social History Tobacco Use Types [...] on file 09/17/2021 Data from: https://www.neighborhoodatlas.[facility].edu/. Last address used for calculation [address] 09/17/2021 Sex and Gender Information Value Date Recorded Sex Assigned at Male 06/02/2020 10:20 AM EST Legal Sex Male 10:13 AM EDT Gender Identity Male 06/02/2020 10:20 AM EST Sexual Orientation Not on file COVID-19 Exposure Response Date Recorded In the last 10 days, have yo u been in contact with someone who was confirmed or suspected to have Coronavirus/COVID-19? No / Unsure 01/27/2022 11:16 AM EDT documented as of this encounter [...] Office Visit [facility] [address] [place] [address] lab 01/20/2025 7:45 AM EDT Office Visit [facility] [address] [facility] [place] [address] lab 02/17/2025 7:45 AM EST Office Visit [facility] [address] [facility] [place] [address] lab 03/17/2025 7:45 AM EST Office Visit [facility] [address] [place] [address] lab documented as of this encounter Visit Diagnoses Not on filedocumented in this encounter Additional Health Concerns Infection Onset Date Last Indicated Resolved Time COVID-19 Rule-Out 05/02/2022 05/02/2022 05/02/2022 8:19 PM EST documented as of this encounter Care Teams Stave Hewer Relationship Specialty Start Date End Date Washington Brooks MD PCP - General Family Medicine 10/13/14 Hua Marquez Jr., DO [address] [address] [place] [address] Referring Gastroenterology 05/25/18 Ramirez Nieto MD [address] [place] [address] Primary Staff Physician Cardiology 12/31/20 Kat Leal, RN [facility] [address] [place] [address] Transplant Center 06/10/22 Kaiser Bucio [address] [phone] Referring Neurosurgery 11/07/22 [facility] 05/09/22 documented as of this encounter
--- OUTSIDE RECORDS SUMMARY | 2024-11-22 10:13 | XMS_ITS | Encounter Summary ---
Author Organization [facility] Address [facility] [place] [address] Care Team Providers Care Digital Media Specialist Name Role Phone Washington Brooks MD Primary Care Provider [phone] Jimmy Escalante DO, David L Unavailable [phone] Ramirez Nieto MD Unavailable + [phone] Kat Leal RN Unavailable Unavailable Kaiser Bucio Unavailable Source Comments In the event this information is protected by the Federal Confidentiality of Alcohol and Drug AbusePatient Records regulations: The Federal rules restrict any use of the information to criminally investigate or prosecute any alcohol or drug abuse patient.[facility] Encounter Details Date Type Department Care Team (Late st Contact Info) Description 11/15/2022 Patient Msg [facility] [address] [place] [address] Provider, Alphonso Pre procedure instructions 11/17 Social History Tobacco Use Types Packs/Day Years [...] is lower risk 2 08/03/2022 Data from: https://www.neighborhoodatlas.medicine.[facility].edu/. Last address used for calculation [address] 08/03/2022 Sex and Gender Information [...] Visit [facility] [address] [place] [address] lab 01/20/2025 7:45 AM EDT Office Visit [facility] [address] [place] [address] lab 02/17/2025 7:45 AM EST Office Visit [facility] [address] [place] [address] lab 03/17/2025 7:45 AM EST Office Visit [facility] [address] [place] [address] lab documented as of this encounter Visit Diagnoses Not on filedocumented in this encounter Care Teams Digital Media Specialist Relationship Specialty Start Date End Date Washington Brooks MD PCP - General Family Medicine 10/13/14 Hua Marquez Jr., [address] [address] Referring Gastroenterology 05/25/18 Ramirez Nieto MD [address] [place] [address] Primary Staff Physician Cardiology 12/31/20 Kat Leal, COSMO [facility] [address] [place] [address] Transplant Center 06/10/22 Kaiser Bucio [address] [phone] Referring Neurosurgery 11/07/22 [facility] 05/09/22 documented as of this encounter
--- OUTSIDE RECORDS SUMMARY | 2024-11-22 10:18 | XMS_ITS | CCD ---
Author Organization [facility] Care Team Providers Care Regional Account Director Name Role Phone Preeti, Lavell S Unavailable Unavailable Unavailable, Family Physician Unavailable Un available Unavailable, Family Physician Unavailable Un available Preeti, Lavell S Unavailable Unavailable Unavailable, Family Physician Unavailable Un available Unavailable, Family Physician Unavailable Un available Unavailable, Family Physician Unavailable Un available Unavailable, Family Physician Unavailable Un available Shall, Aleks F Unavailable Unavailable Shall, Aleks F Unavailable Unavailable Unavailable, Family Physician Unavailable Un available Unavailable, Family Physician Unavailable Un available Jordan Azar MD Primary Care Provider [phone] Hua Marquez Jr. Unavailable Gerson PORTILLO, Chete Unavailable Jordan Azar MD Primary Care Provider [phone] Hua Marquez Jr. Unavailable [phone] Gerson PORTILLO, Chete Unavailable [phone] Jordan Azar MD Primary Care Provider [phone] Hua Marquez Jr. Unavailable Jordan Azar MD Primary Care Provider [phone] Jimmy Escalante DO, David L Unavailable Jordan Azar MD Primary Care Provider [phone] Jimmy Escalante DO, David L Unavailable Gerson PORTILLO, Chete Unavailable DAYNA REYES Referring Unavailab le JORDAN AZAR Primary Care Unavailable MD Jordan Azar Primary Care Provider [phone] MD Dayna Reyes Attending Provider Elvis WILBURNKat Unavailable Unavailable HOY ., DR ORTEGA Attending Unavailable HOY ., DR ORTEGA Admitting Unavailable HOY ., DR ORTEGA Primary Care Unavailable HOY ., DR ORTEGA Consulting Unavailable HOY ., DR ORTEGA Attending Unavailable HOY ., DR ORTEGA Admitting Unavailable HOY ., DR ORTEGA Primary Care Unavailable HOY ., DR ORTEGA Consulting Unavailable HOY ., DR ORTEGA Attending Unavailable HOY ., DR ORTEGA Admitting Unavailable HOY ., DR ORTEGA Primary Care Unavailable HOY ., DR ORTEGA Consulting Unavailable ZIEBER, DR YSABEL Cole Consulting Unavailable HOY ., DR ORTEGA Attending Unavailable HOY ., DR ORTEGA Admitting Unavailable HOY ., DR ORTEGA Primary Care Unavailable HOY ., DR ORTEGA Consulting Unavailable ZIEBER, DR YSABEL Cole Consulting Unavailable Tiffany Bucio Unavailable Tiffany Bucio Unavailable Ramirez Nieto MD Unavailable MD Jordan Azar Primary Care Provider [phone] KALYN Hernandez Attending Provider Jordan Azar MD Primary Care Provider [phone] Gerson PORTILLO, Ramirez [place] Unavailable [phone] Bonifacio Null Attending Unavailab le Bonifacio Null Admitting Unavailab le Hoy, Jordan M Primary Care Unavailable HOY, JORDAN M Primary Care Unavailable HOY, JORDAN M Primary Care Unavailable HOY, JORDAN M Primary Care Unavailable HOY, JORDAN M Primary Care Unavailable HOY, JORDAN M Primary Care Unavailable REBECCA MASCORRO Referring Unavailable HOY, JORDAN M Primary Care Unavailable SIUDREBECCA SKAGGS Referring Unavailable HOY, JORDAN M Primary Care Unavailable HOY, JORDAN M Primary Care Unavailable HOY, JORDAN M Primary Care Unavailable HOY, JORDAN M Primary Care Unavailable REMER, BRITTON M Admitting Unavailable REMERBRITTON Attending Unavailable HOY, JORDAN M Primary Care Unavailable HOY, JORDAN M Primary Care Unavailable REBECCA MASCORRO A Referring Unavailable HOY, JORDAN M Primary Care Unavailable HOY, JORDAN M Primary Care Unavailable HOY, JORDAN M Referring Unavailable HOY, JORDAN M Primary Care Unavailable HOY, JORDAN M Primary Care Unavailable HOY, JORDAN M Primary Care Unavailable HOY, JORDAN M Primary Care Unavailable HOY, JORDAN M Primary Care Unavailable HOY, JORDAN M Primary Care Unavailable HOY, JORDAN M Primary Care Unavailable HOY, JORDAN M Primary Care Unavailable HOY, JORDAN M Primary Care Unavailable HOY, JORDAN M Primary Care Unavailable HOY, JORDAN M Primary Care Unavailable Allergies Allergy Classification Reported Allergen(s) Allergy Type Date of Onset Reaction(s) Facility (20 sources) pregabalin; Translations: [PREGABALIN] Drug Allergy 5 Mental Status Change [facility] (1 source) pregabalin Drug Allergy 5 [facility] (1 source) pregabalin Drug Allergy 3 [facility] Medications Current Medications Medication Drug Class(es) Dates Sig (Normalized) Sig (Original) acetaminophen 500 mg oral tablet (20 sources) Start: 05-30-2022 take 1 tablet by mouth every six hours as needed acetaminophen (TYLENOL) 500 mg tablet Take 1 tablet by mouth every 6 hours as needed for pain. 50 tablet 05/30/2022 Active Start: 05-06-2022 End: 05-27-2022 take 1 tablet by mouth every six hours as needed acetaminophen (TYLENOL) 500 mg tablet Take 1 tablet by mouth every 6 hours as needed for pain. 50 tablet 0 05/06/2022 05/27/2022 Discontinued Start: 03-04-2022 End: 04-13-2022 take 2 tablets by mouth every six hours acetaminophen (TYLENOL) 325 mg tablet Take 2 tablets by mouth every 6 hours. 0 03/04/2022 04/13/2022 Discontinued Start: 09-05-2020 End: 11-11-2021 take 2 tablets by mouth every six hours as needed acetaminophen (TYLENOL) 325 mg tablet Take 2 tablets by mouth every 6 hours as needed. 0 09/05/2020 11/11/2021 Discontinued (Course of therapy completed) take 1 tablet by yogesh every four hours Tylenol 325 MG 1 tablet as needed Orally every 4 hrs Active Comment on above: Take 2 tablets by mo [facility] every 6 hours as needed. Take 2 tablets by mo uth every 6 hours. Take 1 tablet by yogesh every 6 hours as needed for pain. aspirin 81 mg chewable tablet (20 sources) Platelet Aggregation Inhibitor, Nonsteroidal Anti-inflammatory Drug Start: 05-30-2022 End: 05-25-2023 take 1 tablet by mouth once daily aspirin 81 mg chewable tablet CHEW & SWALLOW 1 TABLET BY MOUTH ONCE DAILY 90 tablet 05/25/2023 Active Start: 05-14-2022 End: 05-27-2022 take 1 tablet by mouth once daily aspirin 81 mg chewable tablet Chew & swallow 1 tablet by mouth once daily. 30 tablet 2 05/14/2022 05/27/2022 Discontinued Comment on above: Chew & swallow 1 tab let by mouth once daily. CHEW & SWALLOW 1 TAB LET BY MOUTH ONCE DAILY carvedilol 6.25 mg oral tablet (20 sources) alpha-Adrenergic Marian, beta-Adrenergic Marian Start: 04-13-2022 End: 05-11-2023 take 1 tablet by mouth twice daily carvedilol (COREG) 6.25 mg tablet Indications: Portal hypertension with esophageal varices (HCC) Take 1 tablet by mouth two times a day. 60 tablet 05/11/2023 Active Start: 04-13-2022 End: 04-13-2022 take 1 tablet by mouth twice daily carvedilol (COREG) 3.125 mg tablet Indications: Portal hypertension with esophageal varices (HCC) Take 1 tablet by mouth twice daily. 180 tablet 3 04/13/2022 04/13/2022 Discontinued Start: 06-25-2020 take 2 tablets by mo ut once daily Carvedilol (Coreg) 3.125 mg Tablet Active 6.25 MG PO Daily June 24, 2020 11:00pm Comment on above: Take 1 tablet by yogesh twice daily. Take 1 tablet by yogesh two times a day. cephalexin 500 mg oral capsule (1 source) Cephalosporin Antibacterial Start: 07-11-2022 End: 06-26-2022 cephALEXin 500 mg cap(s) (KEFLEX) Start: 07-11-2022 End: 06-26-2022 cephALEXin 500 mg cap(s) (KE FLEX) cholecalciferol 0.05 mg oral tablet (20 sources) Vitamin D Start: 09-21-2021 End: 05-13-2022 take 1 tablet by mouth once daily Cholecalciferol (Vitamin D3) (Vitamin D3) 50 mcg (2,000 unit) Tablet Active 2000 UNIT PO Daily September 20, 2021 11:00pm Start: 07-12-2021 End: 10-07-2021 take 0.5 tablet by mouth once daily cholecalciferol (VITAMIN D-3) 50 mcg (2,000 unit) tablet Indications: Vitamin D deficiency Take 0.5 tablets by mouth once daily. 45 tablet 3 07/12/2021 10/07/2021 Discontinued Start: 07-12-2021 End: 07-12-2021 take 1 tablet by mouth once daily cholecalciferol (VITAMIN D-3) 50 mcg (2,000 unit) tablet Indications: Vitamin D deficiency Take 1 tablet by mouth once daily. 90 tablet 3 07/12/2021 07/12/2021 Discontinued Comment on above: Take 0.5 tablets by mouth once daily. Take 1 tablet by yogesh th once daily. Take 1 tablet by yogesh once daily. with your largest meal docusate sodium 100 mg oral capsule (3 sources) Start: End: take 1 capsule by mouth twice daily docusate sodium (COLACE) 100 mg capsule Take 1 capsule by mouth twice daily for 7 days. 14 capsule 0 03/05/2022 03/12/2022 Active Comment on above: Take 1 capsule by mo [facility] twice daily for 7 days. Elavil OTC Sleep - (1 source) ferrous sulfate 325 mg oral tablet (4 sources) Start: 018 End: take 1 tablet by mouth once daily Ferrous Sulfate (Iron) 325 mg (65 mg iron) Tablet Active 325 MG PO daily April 27, 2018 12:00am iv contrast (will be provided with radiology test) (2 sources) Start: 023 End: iv contrast (will be provided with radiology test) Indications: Cirrhosis of liver with ascites, unspecified hepatic cirrhosis type (HCC) CT LIVER W IVCON Inject, intravenously, once for 1 dose. No IV access, insert saline lock prior to the beginning of sedation, infusion, injection of imaging exam. Discontinue saline lock post exam. If Pt. has a central line or IVAD, may access for administration according to line specific nursing protocol. Once exam is complete flush line and de-access according to line specific nursing protocol in the CT contrast administration guidelines link. 1 Each 0 04/13/2022 04/14/2022 Active Comment on above: CT LIVER W IVCON Inj ect, intravenously, once for 1 dose. No IV access, insert saline lock prior to the beginning of sedation, infusion, injection of imaging exam. Discontinue saline lock post exam. If Pt. has a central line or IVAD, may access for administration according to line specific nursing protocol. Once exam is complete flush line and de-access according to line specific nursing protocol in the CT contrast administration guidelines link. lactulose 667 mg/ml oral solution (20 sources) Osmotic Laxative Start: End: take 1 mL by mouth twice daily Lactulose (Enulose) 10 gram/15 mL Solution Active 30 ML PO Twice daily June 24, 2020 11:00pm Comment on above: Take 30 mL by mouth twice daily. lidocaine hydrochloride 0.02 mg/mg topical gel (1 source) Antiarrhythmic, Amide Local Anesthetic Start: End: lidocaine urojet 2 % 11 mL topical gel (GLYDO) Start: 07-11-2022 End: 06-26-2022 lidocaine urojet 2 % 11 mL t opical gel (GLYDO) Magnesium (1 source) Magnesium 400 MG as directed Orally Active magnesium hydroxide 240 mg/ml oral suspension (3 sources) Start: 03-04-2022 End: 03-11-2022 take 10 mL by mouth once daily as needed magnesium hydroxide 2,400 mg/10 mL susp Take 10 mL by mouth once daily as needed for up to 7 days. 70 mL 0 03/04/2022 03/11/2022 Active Comment on above: Take 10 mL by mouth once daily as needed for up to 7 days. magnesium oxide 400 mg oral tablet (20 sources) Start: 06-15-2022 take 1 tablet by mouth twice daily magnesium oxide (MAG-OX) 400 mg (241.3 mg magnesium) tablet Take 1 tablet by mouth twice daily. 60 tablet 11 06/15/2022 Active Comment on above: Take 1 tablet by yogesh twice daily. multivit-min/FA/lycop en/lutein (CENTRUM SILVER MEN ORAL) (20 sources) take 1 tablet by mouth once daily multivit-min/FA/lyc open/lutein (CENTRUM SILVER MEN ORAL) Take 1 tablet by mouth once daily. Active take 1 tablet by yogesh th once daily multivit-min/FA/lycopen/lutein (CENTRUM SILVER MEN ORAL) Take 1 tablet by mouth once daily. 0 Suspended take 1 tablet by yogesh th once daily multivit-min/FA/lycopen/lutein (CENTRUM SILVER MEN ORAL) Take 1 tablet by mouth once daily. 0 Active Comment on above: Take 1 tablet by yogesh th once daily. Multivitamin preparation (1 source) take 1 tablet by mouth once daily Multivitamin - 1 tablet Orally Once a day Active mycophenolate mofetil 250 mg oral capsule (20 sources) Start: 4 End: take 2 capsules by mouth twice daily mycophenolate mofetil (CELLCEPT) 250 mg capsule TAKE 2 CAPSULES BY MOUTH TWO TIMES A DAY. 120 capsule 11 05/09/2024 Active Start: 05-30-2022 take 4 capsules by m outh twice daily mycophenolate mofetil (CELLCEPT) 250 mg capsule Take 4 capsules by mouth twice daily. 240 capsule 11 05/30/2022 Active Start: 05-06-2022 End: 05-27-2022 take 4 capsules by mouth twice daily mycophenolate mofetil (CELLCEPT) 250 mg capsule Take 4 capsules by mouth twice daily. 240 capsule 11 05/06/2022 05/27/2022 Discontinued take 1 capsule by mo [facility] every twelve hours CellCept 250 MG 1 capsule Orally Twice a day Active Comment on above: Take 4 capsules by m outh twice daily. Take 2 capsules by m outh two times a day. rifAXIMin 550 mg oral tablet (20 sources) Rifamycin Antibacterial Start: End: take 1 tablet by mouth twice daily Rifaximin (Xifaxan) 550 mg Tablet Active 550 MG PO Twice daily September 20, 2021 11:00pm Comment on above: Take 1 tablet by yogesh twice daily. simvastatin 20 mg oral tablet (20 sources) HMG-CoA Reductase Inhibitor Start: End: 03-28-2 023 take 1 tablet by mouth once daily at bedtime simvastatin (ZOCOR) 20 mg tablet Indications: Portal hypertensive gastropathy (HCC) , 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) TAKE 1 TABLET BY MOUTH EVERYDAY AT BEDTIME 90 tablet 3 06/28/2022 Active Comment on above: Take 1 tablet by yogesh th daily at bedtime. TAKE 1 TABLET BY YOGESH TH EVERYDAY AT BEDTIME sulfamethoxazole 800 mg / trimethoprim 160 mg oral tablet (20 sources) Dihydrofolate Reductase Inhibitor Antibacterial, Sulfonamide Antimicrobial Start: 023 End: 025 take 1 tablet by mouth once sulfamethoxazole-tr imethoprim (BACTRIM DS) 800-160 mg per tablet TAKE 1 TABLET BY MOUTH EVERY MONDAY,MONDAY, 12 tablet 11 05/27/2024 Active Start: 05-09-2022 End: 05-27-2022 take 1 tablet by mouth once sulfamethoxazole-trimethoprim (BACTRIM DS,SEPTRA DS) 800-160 mg per tablet Take 1 tablet by mouth every Monday,Monday,Monday. 12 tablet 11 05/09/2022 05/27/2022 Discontinued take 1 tablet by yogesh th every twelve hours Bactrim DS 800-160 MG 1 tablet Orally Tw ice a day Active Comment on above: Take 1 tablet by yogesh th every Monday,Monday,Monday. TAKE 1 TABLET BY YOGESH TH EVERY MONDAY,MONDAY,MONDAY Take 1 tablet by yogesh th every Monday, Monday, and Monday. tacrolimus 1 mg oral capsule (20 sources) Calcineurin Inhibitor Immunosuppressant Start: End: take 1 capsule by mouth twice daily tacrolimus IR (PROGRAF) 1 mg capsule Take 1 capsule by mouth two times a day. 60 capsule 11 03/26/2024 Active Start: 01-19-2023 take 1 capsule by mo uth twice daily tacrolimus IR (PROGRAF) 0.5 mg capsule TAKE 1 CAPSULE BY MOUTH TWICE DAILY. TAKE IN ADDITION TO ONE 1MG CAPSULE FOR TOTAL DOSE OF 1.5MG TWICE DAILY. 180 capsule 4 01/19/2023 Active Start: 12-27-2022 take 1 capsule by mo uth twice daily tacrolimus IR (PROGRAF) 1 mg capsule Take 1 capsule by mouth twice daily. Take in addition to one 0.5mg capsule for total dose of 1.5mg twice daily. 60 capsule 11 12/27/2022 Active Start: 12-27-2022 take 1 capsule by mo uth twice daily tacrolimus IR (PROGRAF) 0.5 mg capsule Take 1 capsule by mouth twice daily. Take in addition to one 1mg capsule for total dose of 1.5mg twice daily. 60 capsule 11 12/27/2022 Active Start: 09-16-2022 End: 11-07-2022 take 1 capsule by mouth twice daily tacrolimus IR (PROGRAF) 0.5 mg capsule Take 1 capsule by mouth twice daily. Take in addition to one 1mg capsule for total dose of 1.5mg twice daily 60 capsule 11 09/16/2022 11/07/2022 Discontinued (Dosage adjustment) Start: 09-16-2022 End: 11-07-2022 take 1 capsule by mouth twice daily tacrolimus IR (PROGRAF) 1 mg capsule Take 2 capsules by mouth twice daily. 120 capsule 11 11/07/2022 Active Start: 09-01-2022 End: 09-15-2022 take 1.5 mg by mouth twice daily tacrolimus IR (PROGRAF) 1 mg capsule Take 2 capsules by mouth twice daily. Take in addition to 0.5 mg capsule for total dose of 1.5 mg twice daily. 120 capsule 11 09/01/2022 09/15/2022 Discontinued Start: 06-15-2022 End: 09-01-2022 take 1 capsule by mouth twice daily tacrolimus IR (PROGRAF) 0.5 mg capsule Take 1 capsule by mouth twice daily. Take in addition to 1 mg capsule for total dose of 1.5 mg twice daily. 60 capsule 11 06/15/2022 09/01/2022 Discontinued (Dosage adjustment) Start: 05-30-2022 End: 09-01-2022 take 1 capsule by mouth twice daily tacrolimus IR (PROGRAF) 1 mg capsule Take 1 capsule by mouth twice daily. Take in addition to 0.5 mg capsule for total dose of 1.5 mg twice daily. 60 capsule 11 06/15/2022 09/01/2022 Discontinued Start: 05-06-2022 End: 05-27-2022 take 1 capsule by mouth twice daily tacrolimus IR (PROGRAF) 1 mg capsule Take 3 capsules by mouth twice daily. 180 capsule 11 05/13/2022 05/27/2022 Discontinued Comment on above: Take 3 capsules by m outh twice daily. Take 2 capsules by m outh twice daily. Take 1 capsule by mo uth twice daily. Take in addition to 0.5 mg capsule for total dose of 1.5 mg twice daily. Take 1 capsule by mo uth twice daily. Take in addition to 1 mg capsule for total dose of 1.5 mg twice daily. Take 2 capsules by m outh twice daily. Take in addition to 0.5 mg capsule for total dose of 1.5 mg twice daily. Take 1 capsule by mo uth twice daily. Take in addition to one 1mg capsule for total dose of 1.5mg twice daily Take 1 capsule by mo uth twice daily. Take in addition to one 0.5mg capsule for total dose of 1.5mg twice daily. Take 1 capsule by mo uth twice daily. Take in addition to one 1mg capsule for total dose of 1.5mg twice daily. TAKE 1 CAPSULE BY MO UTH TWICE A DAY tiZANidine 4 mg oral tablet (1 source) Central alpha-2 Adrenergic Agonist take 1 tablet by mouth every eight hours tiZANidine HCl 4 MG 1 tablet as needed Orally Three times a day Active ubidecarenone 200 mg oral capsule (20 sources) Start: Coenzyme Q10 (Co Q-10) 200 mg Capsule Active 200 MG PO Daily September 20, 2021 11:00pm Start: 10-07-2020 End: 05-06-2022 take 1 capsule by mouth twice daily coenzyme Q10 (COQ-10) 100 mg cap capsule Indications: 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) , Muscle cramp Take 1 capsule by mouth twice daily. 60 capsule 11 10/07/2020 05/06/2022 Discontinued Comment on above: Take 1 capsule by mo uth twice daily. ursodiol 300 mg oral capsule (20 sources) Bile Acid Start: 03-12-2024 take 1 capsule by mouth three times daily at mealtime ursodiol (ACTIGALL) 300 mg capsule Take 1 capsule by mouth three times a day. TAKE ONE(1) CAPSULE DAILY WITH MEALS. 90 capsule 11 03/12/2024 Active Start: 05-02-2023 End: 03-12-2024 take 1 capsule by mouth twice daily at mealtime ursodiol (ACTIGALL) 300 mg capsule Take 1 capsule by mouth two times a day. TAKE ONE(1) CAPSULE DAILY WITH MEALS. 60 capsule 11 07/12/2023 03/12/2024 Discontinued Start: 09-01-2022 take 1 capsule by mo uth three times daily at mealtime ursodiol (ACTIGALL) 300 mg capsule Take 1 capsule by mouth three times daily. TAKE ONE(1) CAPSULE DAILY WITH MEALS. 90 capsule 11 09/01/2022 Active Start: 05-12-2022 End: 05-25-2022 take 1 capsule by mouth three times daily ursodiol (ACTIGALL) 300 mg capsule Take 1 capsule by mouth three times daily. 90 capsule 2 05/12/2022 05/25/2022 Discontinued (Course of therapy completed) take 1 capsule by mo uth every twelve hours Ursodiol 300 MG 1 capsule Orally Twice a day Active Comment on above: Take 1 capsule by mo uth three times daily. Take 1 capsule by mo uth three times daily. TAKE ONE(1) CAPSULE DAILY WITH MEALS. Take 1 capsule by mo uth two times a day. TAKE ONE(1) CAPSULE DAILY WITH MEALS. Zinc (20 sources) Start: 09-21-2021 take 50 mg by mouth once daily Zinc Active 50 MG PO Daily September 20, 2021 11:00pm Start: 08-14-2019 End: 05-06-2022 take 1 tablet by mouth once daily Zinc 50 mg tab Indications: Hepatic encephalopathy (HCC) Take 1 tablet by mouth once daily. 30 tablet 08/14/2019 05/06/2022 Discontinued Start: 08-14-2019 take 1 tablet by yogesh th once daily Zinc 50 mg tab Indications: Hepatic encephalopathy Take 1 tablet by mouth once daily. 30 tablet 08/14/2019 Suspended Start: 08-14-2019 take 1 tablet by yogesh th once daily Zinc 50 mg tab Indications: Hepatic encephalopathy Take 1 tablet by mouth once daily. 30 tablet 08/14/2019 Active Start: 08-14-2019 take 1 tablet by yogesh th once daily Zinc 50 mg tab Indications: Hepatic encephalopathy (HCC) Take 1 tablet by mouth once daily. 30 tablet 08/14/2019 Active Comment on above: Take 1 tablet by yogesh th once daily. Completed/Discontinued Medications Medication Drug Class(es) Dates Sig (Normalized) Sig (Original) acetaminophen 325 mg / HYDROcodone bitartrate 7.5 mg oral tablet (20 sources) Opioid Agonist Start: 04-27-2018 End: 04-22-2022 take 1 tablet by mouth every four to six hours Hydrocodone-Acetami nophen Discontinued 1 TAB PO EVERY 4-6 HOURS April 27, 2018 12:00am April 22, 2022 12:21pm Start: 04-07-2017 End: 04-27-2018 take 1 tablet by mouth twice daily Hydrocodone-Acetaminophen ([place]) 7.5-32 5 mg Tablet Discontinued 1 TAB PO Twice daily April 07, 2017 12:00am April 27, 2018 1:48pm End: 03-04-2022 take 1 tablet by mouth every eight hours as needed HYDROcodone-Acetaminophen ([place]) 7.5-32 5 mg per tablet Take 1 tablet by mouth every 8 hours as needed for pain. 0 03/04/2022 Discontinued Comment on above: Take 1 tablet by yogesh every 8 hours as needed for pain. acyclovir 200 mg oral capsule (20 sources) Herpesvirus Nucleoside Analog DNA Polymerase Inhibitor, Herpes Simplex Virus Nucleoside Analog DNA Polymerase Inhibitor, Herpes Zoster Virus Nucleoside Analog DNA Polymerase Inhibitor Start: 3 End: 3 take 2 capsules by mouth twice daily acyclovir (ZOVIRAX) 200 mg capsule TAKE 2 CAPSULES BY MOUTH TWICE A DAY 120 capsule 1 06/28/2022 08/03/2022 Discontinued (Course of therapy completed) Start: 05-06-2022 End: 05-27-2022 take 2 capsules by mouth twice daily acyclovir (ZOVIRAX) 200 mg capsule Take 2 capsules by mouth twice daily. 120 capsule 2 05/06/2022 05/27/2022 Discontinued Comment on above: Take 2 capsules by m outh twice daily. TAKE 2 CAPSULES BY M OUTH TWICE A DAY amitriptyline hydrochloride 100 mg oral tablet (20 sources) Tricyclic Antidepressant Start: 04-07-19 18 End: 04-13-19 take 100 mg by mouth once daily at bedtime Amitriptyline Discontinued 100 MG PO Daily at bedtime April 07, 2017 12:00am June 25, 2020 9:20am Comment on above: Take 100 mg by mouth daily at bedtime. amoxicillin 875 mg / clavulanate 125 mg oral tablet (2 sources) Penicillin-class Antibacterial Start: 01-14-20 End: 01-21-20 take 1 tablet by mouth every twelve hours amoxicillin-clavulan ic acid (AUGMENTIN) 875-125 mg per tablet Indications: Chronic rhinitis , Pneumonia of right lower lobe due to infectious organism Take 1 tablet by mouth every 12 hours for 7 days. 14 tablet 0 01/13/2022 01/20/2022 Comment on above: Take 1 tablet by yogesh every 12 hours for 7 days. ascorbic acid / biotin / ferrous bisglycinate / folic acid / formic acid / iron-dextran complex / niacin / pantothenate / pyridoxine / riboflavin / thiamine / vitamin B12 (20 sources) Nicotinic Acid, Vitamin B12, Vitamin C End: 05-06-19 take 1 tablet by mouth once daily iron bisgly,ps-FA-B-C#12- succ 65 mg-65 mg -1,000 mcg (24) tab Take 65 mg by mouth once daily. 0 05/06/2022 Discontinued take 1 tablet by mouth once paul y iron bisgly,ps-FA-B-C#12-succ 65 mg-65 mg - 1,000 mcg (24) tab Take 65 mg by mouth once daily. 0 Suspended take 1 tablet by mouth once paul y iron bisgly,ps-FA-B-C#12-succ 65 mg-65 mg - 1,000 mcg (24) tab Take 65 mg by mouth once daily. 0 Active Comment on above: Take 65 mg by mouth once daily. bumetanide 1 mg oral tablet (20 sources) Loop Diuretic Start: 02-22-2022 End: 03-09-2022 bumetanide (BUMEX) 2 mg tablet Indications: Cirrhosis of liver with ascites, unspecified hepatic cirrhosis type (HCC) Take 1 tablet by mouth twice daily. Take 2 pills in the morning and 1 pill in the afternoon 180 tablet 3 02/22/2022 03/03/2022 Discontinued (Adjust Sig - Block E-Cancel) Start: 02-11-2022 bumetanide (BU MAT) 1 mg tablet Indications: Cirrhosis of liver with ascites, unspecified hepatic cirrhosis type (HCC) Take 2 pills in the morning and 1 pill in the afternoon 270 tablet 3 02/11/2022 Active Start: 11-29-2021 bumetanide (BU MAT) 1 mg tablet Indications: Cirrhosis of liver with ascites, unspecified hepatic cirrhosis type (HCC) Take 1 tablet by mouth once daily. Take 2 tablets in the morning and 1 tablet in the afternoon. 180 tablet 4 11/29/2021 Active Start: 10-11-2021 bumetanide (BU MAT) 1 mg tablet Indications: Cirrhosis of liver with ascites, unspecified hepatic cirrhosis type (HCC) Take 2 tablets in the morning and 1 tablet in the afternoon. 180 tablet 4 10/11/2021 Active Start: 09-21-2021 End: 02-11-2022 take 1 tablet by mouth twice daily bumetanide (BUMEX) 1 mg tablet Indications: Cirrhosis of liver with ascites, unspecified hepatic cirrhosis type (HCC) Take 1 tablet by mouth twice daily. Take with 2mg tablets for a total of 3mg twice daily. 180 tablet 3 04/26/2022 Suspended Start: 09-18-2021 End: 10-08-2021 bumetanide (BUMEX) 1 mg tabl et Indications: Cirrhosis of liver with ascites, unspecified hepatic cirrhosis type (HCC) Take 2 tablets in the morning and 1 tablet in the afternoon. 90 tablet 5 09/18/2021 10/08/2021 Discontinued Start: 07-12-2021 End: 09-18-2021 take 1 tablet by mouth twice daily bumetanide (BUMEX) 1 mg tablet Indications: Cirrhosis of liver with ascites, unspecified hepatic cirrhosis type (HCC) Take 1 tablet by mouth twice daily. 180 tablet 3 07/12/2021 09/18/2021 Discontinued Comment on above: Take 1 tablet by yogesh th twice daily. Take 2 tablets in morning and 1 tablet in the afternoon. Take 1 tablet by yogesh th once daily. Take 2 tablets in the morning and 1 tablet in the afternoon. Take 1 tablet in the morning and 1/2 a tablet (0.5mg) in the afternoon. Take 2 pills in the morning and 1 pill in the afternoon Take 1 tablet by yogesh th twice daily. Take 2 pills in the morning and 1 pill in the afternoon Take 1 tablet by yogesh th twice daily. Take with 2mg tablets for a total of 3mg twice daily. 24 hr desvenlafaxine succinate 50 mg extended release oral tablet (2 sources) Serotonin and Norepinephrine Reuptake Inhibitor Start: End: take 1 tablet by mouth once daily, then take 1 tablet by mouth every twenty-four hours Desvenlafaxine Succinate (Pristiq) 50 mg Tablet Extended Release 24 Hr Discontinued 50 MG PO Daily April 07, 2017 12:00am April 27, 2018 1:51pm dexamethasone 6 mg oral tablet (3 sources) Corticosteroid Start: End: dexAMETHasone (DECADRON) 6 mg tablet fluticasone propionate 0.05 mg/actuat metered dose nasal spray (20 sources) Corticosteroid Start: End: take 1-2 spray(s) nasal route once daily fluticasone (FLONASE) 50 mcg/actuation nasal spray Indications: Chronic rhinitis , Pneumonia of right lower lobe due to infectious organism Use 1-2 Sprays in each nostril once daily. 1 Each 3 01/13/2022 04/13/2022 Discontinued Comment on above: Use 1-2 Sprays in ea ch nostril once daily. furosemide 40 mg oral tablet (7 sources) Loop Diuretic Start: End: take 1 tablet by mouth twice daily furosemide (LASIX) 40 mg tablet Indications: 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) , Other ascites Take 1 tablet by mouth twice daily. 180 tablet 3 06/30/2021 07/12/2021 Discontinued Start: 06-10-2021 take 1 tablet by yogesh th once daily furosemide (LASIX) 40 mg tablet Indications: 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) , Other ascites Take 1 tablet by mouth once daily. 0 06/10/2021 Active Start: 04-27-2018 End: 09-21-2021 take 40 mg by mouth once daily Furosemide Discontinued 40 MG PO Daily April 27, 2018 12:00am September 21, 2021 9:04am Comment on above: Take 1 tablet by yogesh th once daily. Take 1 tablet by yogesh th twice daily. gabapentin 600 mg oral tablet (3 sources) Anti-epileptic Agent Start: 04-07-19 End: 04-27-19 take 1 tablet by mouth three times daily Gabapentin (Neurontin) 600 mg Tablet Discontinued 600 MG PO Three times daily April 07, 2017 12:00am April 27, 2018 1:51pm levoFLOXacin 750 mg oral tablet (3 sources) Quinolone Antimicrobial Start: 04-05-19 End: 07-08-19 levoFLOXacin (LEVAQUIN) 750 mg tablet lisinopril 20 mg oral tablet (20 sources) Angiotensin Converting Enzyme Inhibitor Start: 04-07-19 End: 04-13-19 take 1 tablet by mouth once daily Lisinopril (Prinivil) 20 mg Tablet Discontinued 20 MG PO Daily April 07, 2017 12:00am January 29, 2021 10:34am Comment on above: Take 20 mg by mouth once daily. naproxen 500 mg oral tablet (2 sources) Nonsteroidal Anti-inflammatory Drug Start: 04-07-19 End: 04-27-19 Naproxen Discontinued 500 MG PO 2-3 TIMES PER DAY April 07, 2017 12:00am April 27, 2018 1:51pm nystatin 900553 unt/ml oral suspension (6 sources) Polyene Antifungal Start: 05-06-19 End: 05-31-19 take 5 mL by mouth four times daily nystatin (MYCOSTATIN) 100,000 unit/mL suspension Swish and swallow 5 mL by mouth four times daily for 72 doses. 360 mL 0 05/06/2022 05/25/2022 Discontinued (Course of therapy completed) Comment on above: Swish and swallow 5 mL by mouth four times daily for 72 doses. OXcarbazepine 300 mg oral tablet (2 sources) Anti-epileptic Agent Start: 04-07-19 End: 04-27-19 take 1 tablet by mouth twice daily Oxcarbazepine (Trileptal) 300 mg Tablet Discontinued 300 MG PO Twice daily April 07, 2017 12:00am April 27, 2018 1:50pm oxyCODONE hydrochloride 5 mg oral tablet (13 sources) Opioid Agonist Start: 05-12-19 End: 05-18-19 take 1 tablet by mouth every six hours as needed for pain oxyCODONE IR (ROXICODONE) 5 mg immediate release tablet Indications: Acute postoperative pain Take 1 tablet by mouth every 6 hours as needed for pain for up to 5 days. 20 tablet 0 05/12/2022 05/18/2022 Start: 03-04-2022 End: 04-13-2022 take 1 tablet by mouth every six hours as needed oxyCODONE IR (ROXICODONE) 5 mg immediate release tablet Indications: Postoperative pain Take 1-2 tablets by mouth every 6 hours as needed. 15 tablet 0 03/04/2022 04/13/2022 Discontinued Comment on above: Take 1-2 tablets by mouth every 6 hours as needed. Take 1 tablet by yogesh th every 6 hours as needed for pain for up to 5 days. pantoprazole 40 mg delayed release oral tablet (20 sources) Proton Pump Inhibitor Start: End: take 1 tablet by mouth once daily, then take 6 tablets by mouth in the morning pantoprazole DR (PROTONIX) 40 mg tablet TAKE 1 TABLET BY MOUTH DAILY (6 AM). 30 tablet 2 06/28/2022 10/31/2022 Discontinued (Course of therapy completed) Start: 05-07-2022 End: 05-27-2022 take 1 tablet by mouth once daily, then take 6 tablets by mouth in the morning pantoprazole DR (PROTONIX) 40 mg tablet Take 1 tablet by mouth DAILY (6 AM). 30 tablet 2 05/07/2022 05/27/2022 Discontinued Comment on above: Take 1 tablet by yogesh th DAILY (6 AM). perflutren lipid microspheres 1.3 mL in NaCl (PF) 0.9% 10 mL injection (DEFINITY) (20 sources) Start: 04-20-2021 End: 07-21-2022 perflutren lipid microspheres 1.3 mL in NaCl (PF) 0.9% 10 mL injection (DEFINITY) Start: 06-12-2020 End: 09-11-2021 perflutren lipid microsphere s 1.3 mL in NaCl (PF) 0.9% 10 mL injection (DEFINITY) predniSONE 5 mg oral tablet (6 sources) Start: 05-06-2022 End: 05-25-2022 take 4 tablets by mouth once daily, then take 3 tablets by mouth once daily, then take 2 tablets by mouth once daily, then take 1 tablet by mouth once daily predniSONE (DELTASONE) 5 mg tablet Take 4 tablets by mouth once a day 05/09/22-05/12/22 then take 3 tablets once a day 05/13/22-05/16/22 then take 2 tablets once a day 05/17/22-05/20/22 then take one tablet once a day 05/21/22-05/24/22 40 tablet 0 05/06/2022 05/25/2022 Discontinued (Course of therapy completed) Comment on above: Take 4 tablets by [facility] once a day 05/09/22-05/12/22 then take 3 tablets once a day 05/13/22-05/16/22 then take 2 tablets once a day 05/17/22-05/20/22 then take one tablet once a day 05/21/22-05/24/22 125 ml sodium chloride 9 mg/ml prefilled syringe (20 sources) Start: 06-12-2020 End: 07-21-2022 sodium chloride 0.9 % (flush) 10 mL (BD POSIFLUSH) spironolactone 100 mg oral tablet (20 sources) Aldosterone Antagonist Start: 04-13-2022 take 2 tablets by mouth once daily spironolactone (ALDACTONE) 100 mg tablet Indications: Cirrhosis of liver with ascites, unspecified hepatic cirrhosis type (HCC) Take 2 tablets by mouth once daily. 360 tablet 3 04/13/2022 Suspended Start: 02-22-2022 End: 04-13-2022 take 4 tablets by mouth once daily spironolactone (ALDACTONE) 100 mg tablet Indications: Cirrhosis of liver with ascites, unspecified hepatic cirrhosis type (HCC) Take 4 tablets by mouth once daily. 360 tablet 3 02/22/2022 04/13/2022 Discontinued (Adjust Sig - Block E-Cancel) Start: 02-11-2022 take 3 tablets by [facility] once daily spironolactone (ALDACTONE) 100 mg tablet Indications: Cirrhosis of liver with ascites, unspecified hepatic cirrhosis type (HCC) Take 3 tablets by mouth once daily. 270 tablet 3 02/11/2022 Active Start: 12-05-2021 End: 02-11-2022 take 2 tablets by mouth once daily spironolactone (ALDACTONE) 100 mg tablet Indications: Cirrhosis of liver with ascites, unspecified hepatic cirrhosis type (HCC) Take 2 tablets by mouth once daily. 180 tablet 3 12/05/2021 02/11/2022 Discontinued Start: 11-29-2021 take 1.5 tablets by mouth once daily spironolactone (ALDACTONE) 100 mg tablet Indications: Cirrhosis of liver with ascites, unspecified hepatic cirrhosis type (HCC) Take 1.5 tablets by mouth once daily. 180 tablet 3 11/29/2021 Active Start: 07-31-2021 take 2 tablets by mo ut once daily spironolactone (ALDACTONE) 100 mg tablet Indications: Cirrhosis of liver with ascites, unspecified hepatic cirrhosis type (HCC) Take 2 tablets by mouth once daily. 180 tablet 3 07/31/2021 Active Start: 07-12-2021 End: 07-31-2021 take 1 tablet by mouth once daily spironolactone (ALDACTONE) 100 mg tablet Indications: Cirrhosis of liver with ascites, unspecified hepatic cirrhosis type (HCC) Take 1 tablet by mouth once daily. 90 tablet 3 07/12/2021 07/31/2021 Discontinued Start: 10-11-2020 End: 07-12-2021 take 1 tablet by mouth once daily spironolactone (ALDACTONE) 50 mg tablet Indications: 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) Take 1 tablet by mouth once daily. 90 tablet 3 10/11/2020 07/12/2021 Discontinued Start: 04-27-2018 take 100 mg by mouth twice daily Spironolactone Active 100 MG PO Twice daily April 27, 2018 12:00am Comment on above: [facility] Take 2 tablets by mo [facility] once daily. Take 1.5 tablets by mouth once daily. Take 3 tablets by mo [facility] once daily. Take 4 tablets by mo ut once daily. taurine 500 mg oral capsule (20 sources) Start: 09-21-2021 End: 04-22-2022 take 500 mg by mouth once daily Taurine Discontinued 500 MG PO Daily September 20, 2021 11:00pm April 22, 2022 12:22pm Start: 10-07-2020 End: 04-13-2022 take 1 capsule by mouth twice daily Taurine 500 mg cap Indications: 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) , Muscle cramp Take 1 capsule by mouth twice daily. 60 capsule 11 10/07/2020 04/13/2022 Discontinued Comment on above: Take 1 capsule by mo [facility] twice daily. vitamin a [id number] unt oral capsule (20 sources) Vitamin A Start: 02-23-2022 take 1 capsule by mouth once daily vitamin A (AQUASOL A) 10,000 unit capsule Indications: Vitamin A deficiency Take 1 capsule by mouth once daily. 90 capsule 0 02/23/2022 Suspended Start: 09-21-2021 End: 04-22-2022 take 2400 ug by mouth once daily Vitamin A Discontinued 2400 MCG PO Daily September 20, 2021 11:00pm April 22, 2022 12:22pm Start: 11-02-2020 End: 10-13-2021 take 1 capsule by mouth once daily vitamin A (AQUASOL A) 10,000 unit capsule Indications: Vitamin A deficiency Take 1 capsule by mouth once daily. 30 capsule 0 08/10/2021 10/13/2021 Discontinued Comment on above: Take 1 capsule by mo [facility] once daily. VITAMIN K2 ORAL (3 sources) End: 07-07-2021 take 1 tablet by mouth once daily VITAMIN K2 ORAL Take 1 tablet by mouth once daily. 0 07/07/2021 Discontinued (Course of therapy completed) take 1 tablet by mouth once apul y VITAMIN K2 ORAL Take 1 tablet by mouth once daily. 0 Active Comment on above: Take 1 tablet by yogesh once daily. 100 ml zoledronic acid 0.05 mg/ml injection (20 sources) Bisphosphonate Start: 022 End: 023 inject 100 mL intravenously once zoledronic acid (RECLAST) 5 mg/100 mL pgbk PREMIX piggyback Indications: Age-related osteoporosis without current pathological fracture Inject 100 mL intravenously one time only for 1 dose. 100 mL 0 10/07/2021 05/12/2022 Discontinued Comment on above: Inject 100 mL intrav enously one time only for 1 dose. Problems Active Problems Problem Classification Problem Date Documented Da te Episodic/Chronic Aortic; peripheral; and visceral artery aneurysms (20 sources) Abdominal aortic aneurysm without rupture; Translations: [Abdominal aortic aneurysm, without rupture] Onset: 05-01-2019 05-01-2019 Chronic Chronic obstructive pulmonary disease and bronchiectasis (20 sources) Chronic obstructive lung disease; Translations: [Chronic obstructive pulmonary disease, unspecified] Onset: 11-11-2021 11-11-2021 Chronic Coagulation and hemorrhagic disorders (20 sources) Platelet count below reference range; Translations: [Thrombocytopenia, unspecified] Onset: 11-11-2021 Chronic Coronary atherosclerosis and other heart disease (20 sources) Coronary arteriosclerosis; Translations: [Atherosclerotic heart disease of platinum coronary artery without angina pectoris] Onset: 11-11-2021 11-11-2021 Chronic Deficiency and other anemia (20 sources) Iron deficiency anemia due to blood loss; Translations: [Iron deficiency anemia secondary to blood loss (chronic)] Onset: 03-06-2019 03-06-2019 Chronic Deficiency and other anemia (2 sources) Iron deficiency anemia; Translations: [Iron deficiency anemia, unspecified] Episodic Disorders of lipid metabolism (20 sources) Dyslipidemia; Translations: [Hyperlipidemia, unspecified] Onset: 05-30-2018 05-30-2018 Chronic Essential hypertension (20 sources) Essential hypertension; Translations: [Essential (primary) hypertension] Onset: 05-30-2018 05-30-2018 Chronic Hepatitis (20 sources) Cirrhosis - non-alcoholic; Translations: [Nonalcoholic steatohepatitis ([place])] Onset: 05-30-2018 03-06-2019 Chronic Immunity disorders (20 sources) Hypergammaglobulinemi a; Translations: [Hypergammaglobulinem ia, unspecified] Onset: 02-26-2020 02-26-2020 Chronic Malaise and fatigue (1 source) Other fatigue; Translations: [Other fatigue] Onset: 08-23-2024 Episodic Nutritional deficiencies (20 sources) Vitamin D deficiency; Translations: [Vitamin D deficiency, unspecified] Onset: 07-03-2018 07-03-2018 Chronic Osteoporosis (20 sources) Senile osteoporosis; Translations: [Age-related osteoporosis without current pathological fracture] Onset: 08-20-2020 08-20-2020 Chronic Other bone disease and musculoskeletal deformities (1 source) Osteopenia; Translations: [Other specified disorders of bone density and structure, unspecified site] Episodic Other connective tissue disease (1 source) Trochanteric bursitis, left hip Episodic Other fractures (5 sources) Collapsed vertebra, not elsewhere classified, lumbar region, initial encounter for fracture; Translations: [COLLAPSED VERT NEC LUMBAR INIT ENC] Onset: 05-30-2022 Episodic Other gastrointestinal disorders (1 source) Other ascites; Translations: [Other ascites] 04-22-2022 Episodic Other gastrointestinal disorders (1 source) Groin mass; Translations: [Other intra-abdominal and pelvic swelling, mass and lump] Episodic Other liver diseases (20 sources) Steatosis of liver; Translations: [Fatty (change of) liver, not elsewhere classified] Onset: 05-30-2018 05-30-2018 Chronic Other liver diseases (20 sources) Portal hypertensive gastropathy; Translations: [Portal hypertension] Onset: 07-03-2018 07-03-2018 Chronic Other liver diseases (20 sources) Portal hypertension; Translations: [Portal hypertension] Onset: 10-07-2020 10-07-2020 Chronic Other liver diseases (20 sources) Cirrhosis of liver; Translations: [Unspecified cirrhosis of liver] Onset: 11-29-2021 Chronic Other liver diseases (1 source) Unspecified cirrhosis of liver; Translations: [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)] Onset: 11-13-2021 Chronic Other liver diseases (1 source) Liver transplant status; Translations: [Liver replaced by transplant (HCC)] Onset: 08-23-2024 Chronic Other liver diseases (1 source) Hepatic failure, unspecified without coma Episodic Other male genital disorders (2 sources) Disorder of male genital organ; Translations: [Hydrocele, unspecified] Episodic Other male genital disorders (2 sources) Swelling of scrotum ; Translations: [Other specified disorders of the male genital organs] Episodic Other male genital disorders (1 source) Cyst of epididymis; Translations: [Cyst of epididymis] Episodic Other nervous system disorders (1 source) Chronic pain following radiotherapy; Translations: [Other chronic postprocedural pain] Chronic Other nervous system disorders (1 source) Chronic pain syndrome; Translations: [Chronic pain syndrome] Chronic Other nervous system disorders (1 source) Chronic pain; Translations: [Other chronic pain] Chronic Other nutritional; endocrine; and metabolic disorders (20 sources) Metabolic syndrome X; Translations: [Metabolic syndrome] Onset: 05-30-2018 05-30-2018 Chronic Other screening for suspected conditions (not mental disorders or infectious disease) (9 sources) Abnormal finding on evaluation procedure; Translations: [Other abnormal tumor markers] Onset: 02-07-2024 Episodic Other upper respiratory disease (2 sources) Chronic rhinitis; Translations: [Chronic rhinitis] Chronic Pneumonia (except that caused by tuberculosis or sexually transmitted disease) (2 sources) Infective pneumonia; Translations: [Pneumonia, unspecified organism] Episodic Residual codes; unclassified (2 sources) H/O: tissue/organ recipient; Translations: [Other transplanted organ and tissue status] Onset: 05-02-2022 05-02-2022 Chronic Residual codes; unclassified (1 source) History of lumbar laminectomy; Translations: [Other specified postprocedural states] 12-09-2022 Episodic Residual codes; unclassified (1 source) At risk of hemorrhage; Translations: [Other specified personal risk factors, not elsewhere classified] 02-06-2024 Episodic Spondylosis; intervertebral disc disorders; other back problems (5 sources) Other intervertebral disc displacement, lumbar region; Translations: [Displacement of lumbar intervertebral disc without myelopathy] Onset: 05-26-2022 Chronic Spondylosis; intervertebral disc disorders; other back problems (5 sources) Lumbar radiculopathy; Translations: [Radiculopathy, lumbar region] Episodic Substance-related disorders (20 sources) Nicotine dependence; Translations: [Nicotine dependence, unspecified, uncomplicated] Onset: 11-13-2021 11-13-2021 Chronic Unclassified (20 sources) APPOINTMENT CANCELLED Onset: 10-29-2020 10-29-2020 Unclassified (3 sources) CONTACT W/AND (SUSP) EXPOS COVID-19; Translations: [CONTACT W/AND (SUSP) EXPOS COVID-19] Onset: 06-09-2022 Unclassified (1 source) COUGH, UNSPECIFIED; Translations: [COUGH, UNSPECIFIED] Onset: 06-09-2022 Past or Other Problems Problem Classification Problem Date Documented Da te Episodic/Chronic Abdominal hernia (20 sources) Inguinal hernia; Translations: [Unilateral inguinal hernia, without obstruction or gangrene, not specified as recurrent] Onset: 07-03-2018 Resolved: 09-12-2018 04-15-2021 Episodic Acute bronchitis (1 source) Acute bronchitis, unspecified; Translations: [ACUTE BRONCHITIS UNSPECIFIED] Onset: 10-30-2021 Episodic Acute posthemorrhagic anemia (20 sources) Acute posthemorrhagic anemia; Translations: [Acute posthemorrhagic anemia] Onset: 05-03-2022 05-03-2022 Episodic Complications of surgical procedures or medical care (20 sources) Pulmonary insufficiency following surgery; Translations: [Acute pulmonary insufficiency following nonthoracic surgery] Onset: 05-03-2022 05-03-2022 Episodic Deficiency and other anemia (20 sources) Anemia; Translations: [Anemia, unspecified] Onset: 11-11-2021 11-11-2021 Episodic Diabetes mellitus without complication (20 sources) Hyperglycemia; Translations: [Hyperglycemia, unspecified] Onset: 05-06-2022 05-06-2022 Episodic Immunizations and screening for infectious disease (20 sources) Requires vaccination; Translations: [Encounter for immunization] Onset: 06-01-2018 06-01-2018 Episodic Mycoses (20 sources) Histoplasmosis; Translations: [Histoplasmosis, unspecified] Onset: 05-30-2018 05-30-2018 Episodic Nutritional deficiencies (20 sources) Iron deficiency; Translations: [Iron deficiency] Onset: 05-30-2018 05-30-2018 Episodic Other and unspecified benign neoplasm (20 sources) History of polyp of colon; Translations: [Personal history of colonic polyps] Onset: 02-26-2020 02-26-2020 Episodic Other bone disease and musculoskeletal deformities (20 sources) Bone density below reference range; Translations: [Other specified disorders of bone density and structure, unspecified site] Onset: 08-20-2020 Resolved: 10-07-2021 08-20-2020 Episodic Other connective tissue disease (20 sources) Sarcopenia; Translations: [Sarcopenia] Onset: 07-03-2018 07-03-2018 Episodic Other connective tissue disease (20 sources) Cramp; Translations: [Cramp and spasm] Onset: 10-07-2020 10-07-2020 Episodic Other gastrointestinal disorders (20 sources) Ascites; Translations: [Other ascites] Onset: 05-30-2018 Episodic Other liver diseases (20 sources) Liver cyst; Translations: [Other specified diseases of liver] Onset: 07-03-2018 Resolved: 10-31-2022 07-03-2018 Chronic Other liver diseases (20 sources) Hepatic encephalopathy; Translations: [Hepatic failure, unspecified without coma] Onset: 03-06-2019 Resolved: 10-31-2022 03-06-2019 Episodic Other lower respiratory disease (20 sources) Multiple nodules of lung; Translations: [Other nonspecific abnormal finding of lung field] Onset: 08-14-2019 08-14-2019 Episodic Pleurisy; pneumothorax; pulmonary collapse (20 sources) Hydrothorax; Translations: [Other specified pleural conditions] Onset: 05-30-2018 Resolved: 10-31-2022 05-30-2018 Episodic Pulmonary heart disease (20 sources) Pulmonary hypertension; Translations: [Pulmonary hypertension, unspecified] Onset: 05-30-2018 Resolved: 08-20-2020 08-20-2020 Chronic Residual codes; unclassified (20 sources) Awaiting transplantation of liver; Translations: [Awaiting organ transplant status] Onset: 05-01-2019 Resolved: 10-31-2022 05-01-2019 Chronic Residual codes; unclassified (20 sources) Prevention status; Translations: [Encounter for other specified prophylactic measures] Onset: 05-05-2022 05-05-2022 Episodic Residual codes; unclassified (1 source) Other specified personal risk factors, not elsewhere classified; Translations: [At risk for bleeding] Onset: 02-07-2024 Episodic Unclassified (1 source) CONTACT W/AND (SUSP) EXPOS COVID-19; Translations: [CONTACT W/AND (SUSP) EXPOS COVID-19] Onset: 06-08-2022 Results Test Name Value Interpretation Reference Range Facility No Panel Informationon 02-06 IMPRESSION: PATENT HEPATIC VASCULATURE WITH APPROPRIATELY DIRECTED FLOW. NORMAL SONOGRAPHIC APPEARANCE OF THE TRANSPLANT LIVER. SPLENOMEGALY. Senior Partner: JADE Transcribe Date/Time: Feb 07 2024 9:26A Dictated by : ARTEMIO FLORES MD This examination was interpreted and the report reviewed and electronically signed by: JESSICA VANG MD on Feb 07 2024 10:56AM [facility] DIVISION OF RADIOLOGY Radiology Study observation (narrative) [facility] No Panel InformationOrdered By: [facility] Provider on 02-07-2024 [facility] US.doppler Abdominal vessels on 02-07-2024 * * *Final Report* * * DATE OF EXAM: Feb 07 2024 9:14AM [facility] [place] [facility] - [place] ABD LIVER VASCULAR / PROCEDURE REASON: Elevated LFTs * * * * Physician Interpretation * * * * EXAMINATION: LIVER VASCULAR ULTRASOUND WITH DOPPLER IMAGING CLINICAL HISTORY: Orthotopic liver transplant 05/03/2022 TECHNIQUE: Sonography of the liver with color and spectral Doppler imaging of the hepatic vasculature was performed. Images were obtained and stored in a permanent archive. MQ: [id number] COMPARISON: Liver vascular ultrasound 11/17/2022, CT abdomen and pelvis 08/01/2022 RESULT: Sonographic Findings: Pancreas: Normal sonographic appearance. Portions obscured: tail Liver: Echotexture: Normal, homogeneous. Echogenicity: Normal. Surface contour: Smooth Lesions: Area of focal fatty sparing adjacent to the gallbladder fossa. Biliary: No intrahepatic biliary duct dilation. CBD: 0.9 cm at the hilum. Gallbladder: Absent. Right Kidney: No hydronephrosis. Spleen: Craniocaudal length 14.5 cm, enlarged. There are no splenic lesions. Other: No ascites HEPATIC VASCULATURE: PORTAL SYSTEM: -Splenic Vein: Patent with antegrade flow (towards the liver). -Main PV: Patent with phasic antegrade flow (towards liver). 30 cm/sec -Right anterior PV: Patent with phasic antegrade flow (towards liver). 14 cm/sec -Right posterior PV: Patent with phasic antegrade flow (towards liver). 16 cm/sec -Left PV: Patent with phasic antegrade flow (towards liver). 13 cm/sec HEPATIC ARTERIES: - Main TEMPLETON: Normal waveform PSV: 82 cm/sec. RI: 0.77 - Right anterior TEMPLETON: Normal waveform PSV: 36 cm/sec. RI: 0.73 - Right posterior TEMPLETON: Normal waveform PSV: 52 cm/sec. RI: 0.70 - Left TEMPLETON: Normal waveform PSV: 44 cm/sec. RI: 0.68 HEPATIC VEINS: -Left: Patent with triphasic waveform. -Middle: Patent with triphasic waveform. -Right: Patent with triphasic waveform. IVC: Patent with normal, phasic wave form. 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 Images were obtained and stored in a permanent archive. MQ: USLV_1 COMPARISON: Liver vascular ultrasound 11/17/2022, CT abdomen and pelvis 08/01/2022 RESULT: Sonographic Findings: Pancreas: Normal sonographic appearance. Portions obscured: tail Liver: Echotexture: Normal, homogeneous. Echogenicity: Normal. Surface contour: Smooth Lesions: Area of focal fatty sparing adjacent to the gallbladder fossa. Biliary: No intrahepatic biliary duct dilation. CBD: 0.9 cm at the hilum. Gallbladder: Absent. Right Kidney: No hydronephrosis. Spleen: Craniocaudal length 14.5 cm, enlarged. There are no splenic lesions. Other: No ascites HEPATIC VASCULATURE: PORTAL SYSTEM: -Splenic Vein: Patent with antegrade flow (towards the liver). -Main PV: Patent with phasic antegrade flow (towards liver). 30 cm/sec -Right anterior PV: Patent with phasic antegrade flow (towards liver). 14 cm/sec -Right posterior PV: Patent with phasic antegrade flow (towards liver). 16 cm/sec -Left PV: Patent with phasic antegrade flow (towards liver). 13 cm/sec HEPATIC ARTERIES: - Main TEMPLETON: Normal waveform PSV: 82 cm/sec. RI: 0.77 - Right anterior TEMPLETON: Normal waveform PSV: 36 cm/sec. RI: 0.73 - Right posterior TEMPLETON: Normal waveform PSV: 52 cm/sec. RI: 0.70 - Left TEMPLETON: Normal waveform PSV: 44 cm/sec. RI: 0.68 HEPATIC VEINS: -Left: Patent with triphasic waveform. -Middle: Patent with triphasic waveform. -Right: Patent with triphasic waveform. IVC: Patent with normal, phasic wave form. IMPRESSION IMPRESSION: PATENT HEPATIC VASCULATURE WITH APPROPRIATELY DIRECTED FLOW. NORMAL SONOGRAPHIC APPEARANCE OF THE TRANSPLANT LIVER. SPLENOMEGALY. 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 Images were obtained and stored in a permanent archive. MQ: USLV_1 COMPARISON: Liver vascular ultrasound 11/17/2022, CT abdomen and pelvis 08/01/2022 RESULT: Sonographic Findings: Pancreas: Normal sonographic appearance. Portions obscured: tail Liver: Echotexture: Normal, homogeneous. Echogenicity: Normal. Surface contour: Smooth Lesions: Area of focal fatty sparing adjacent to the gallbladder fossa. Biliary: No intrahepatic biliary duct dilation. CBD: 0.9 cm at the hilum. Gallbladder: Absent. Right Kidney: No hydronephrosis. Spleen: Craniocaudal length 14.5 cm, enlarged. There are no splenic lesions. Other: No ascites HEPATIC VASCULATURE: PORTAL SYSTEM: -Splenic Vein: Patent with antegrade flow (towards the liver). -Main PV: Patent with phasic antegrade flow (towards liver). 30 cm/sec -Right anterior PV: Patent with phasic antegrade flow (towards liver). 14 cm/sec -Right posterior PV: Patent with phasic antegrade flow (towards liver). 16 cm/sec -Left PV: Patent with phasic antegrade flow (towards liver). 13 cm/sec HEPATIC ARTERIES: - Main TEMPLETON: Normal waveform PSV: 82 cm/sec. RI: 0.77 - Right anterior TEMPLETON: Normal waveform PSV: 36 cm/sec. RI: 0.73 - Right posterior TEMPLETON: Normal waveform PSV: 52 cm/sec. RI: 0.70 - Left TEMPLETON: Normal waveform PSV: 44 cm/sec. RI: 0.68 HEPATIC VEINS: -Left: Patent with triphasic waveform. -Middle: Patent with triphasic waveform. -Right: Patent with triphasic waveform. IVC: Patent with normal, phasic wave form. DIVISION OF RADIOLOGY Provider, [facility] - 02/07/2024 * * *Final Report* * * DATE OF EXAM: Feb 07 2024 9:10AM [facility] [place] DOPPLER COMPLETE / PROCEDURE REASON: Elevated LFTs * * * * Physician Interpretation * * * * EXAMINATION: LIVER VASCULAR ULTRASOUND WITH DOPPLER IMAGING CLINICAL HISTORY: Orthotopic liver transplant 05/03/2022 TECHNIQUE: Sonography of the liver with color and spectral Doppler imaging of the hepatic vasculature was performed. Images were obtained and stored in a permanent archive. MQ: USLV_1 COMPARISON: Liver vascular ultrasound 11/17/2022, CT abdomen and pelvis 08/01/2022 RESULT: Sonographic Findings: Pancreas: Normal sonographic appearance. Portions obscured: tail Liver: Echotexture: Normal, homogeneous. Echogenicity: Normal. Surface contour: Smooth Lesions: Area of focal fatty sparing adjacent to the gallbladder fossa. Biliary: No intrahepatic biliary duct dilation. CBD: 0.9 cm at the hilum. Gallbladder: Absent. Right Kidney: No hydronephrosis. Spleen: Craniocaudal length 14.5 cm, enlarged. There are no splenic lesions. Other: No ascites HEPATIC VASCULATURE: PORTAL SYSTEM: -Splenic Vein: Patent with antegrade flow (towards the liver). -Main PV: Patent with phasic antegrade flow (towards liver). 30 cm/sec -Right anterior PV: Patent with phasic antegrade flow (towards liver). 14 cm/sec -Right posterior PV: Patent with phasic antegrade flow (towards liver). 16 cm/sec -Left PV: Patent with phasic antegrade flow (towards liver). 13 cm/sec HEPATIC ARTERIES: - Main TEMPLETON: Normal waveform PSV: 82 cm/sec. RI: 0.77 - Right anterior TEMPLETON: Normal waveform PSV: 36 cm/sec. RI: 0.73 - Right posterior TEMPLETON: Normal waveform PSV: 52 cm/sec. RI: 0.70 - Left TEMPLETON: Normal waveform PSV: 44 cm/sec. RI: 0.68 HEPATIC VEINS: -Left: Patent with triphasic waveform. -Middle: Patent with triphasic waveform. -Right: Patent with triphasic waveform. IVC: Patent with normal, phasic wave form. IMPRESSION IMPRESSION: PATENT HEPATIC VASCULATURE WITH APPROPRIATELY DIRECTED FLOW. NORMAL SONOGRAPHIC APPEARANCE OF THE TRANSPLANT LIVER. SPLENOMEGALY. Senior Partner: JADE Transcribe Date/Time: Feb 07 2024 9:26A Dictated by : ARTEMIO FLORES MD This examination was interpreted and the report reviewed and electronically signed by: JESSICA VANG MD on Feb 07 2024 10:56AM EST [facility] CNCOon 02-12-2023 CNCO Letter Text Normal [facility] CMV DNA DETECTION AND QUANTo n 01-17-2023 CMV DNA JAIME+probe Qn (P) Not detected Not Detected [facility] TACROLIMUS/FK-506 BLon 01-17 Tacrolimus (Bld) [Mass/Vol] 11.1 ng/mL 5.0 - 20.0 ng/mL [facility] CBC W Auto Differential pane l (Bld)on 01-16-2023 Basophils (Bld) [#/Vol] 0.04 10*3/uL <0.11 k/uL [facility] Basophils/100 WBC (Bld) 0.6 % [facility] Differential cell count method Nom (Bld) Auto [facility] Eosinophils (Bld) [#/Vol] 0.10 10*3/uL <0.46 k/uL [facility] Eosinophils/100 WBC (Bld) 1.6 % [facility] Erythrocyte distribution width (RBC) [Ratio] 13.6 % 11.5 - 15.0 % [facility] Hematocrit (Bld) [Volume fraction] 44.2 % 39.0 - 51.0 % [facility] Hemoglobin (Bld) [Mass/Vol] 14.5 g/dL 13.0 - 17.0 g/dL [facility] Immature granulocytes (Bld) [#/Vol] 0.04 10*3/uL <0.10 k/uL [facility] Immature granulocytes/100 WBC (Bld) 0.6 % [facility] Lymphocytes (Bld) [#/Vol] 0.88 10*3/uL Low 1.00 - 4.00 k/uL [facility] Lymphocytes/100 WBC (Bld) 13.8 % [facility] MCH (RBC) [Entitic mass] 31.6 pg 26.0 - 34.0 pg [facility] MCHC (RBC) [Mass/Vol] 32.8 g/dL 30.5 - 36.0 g/dL [facility] MCV (RBC) [Entitic vol] 96.3 fL 80.0 - 100.0 fL [facility] Monocytes (Bld) [#/Vol] 0.52 10*3/uL <0.87 k/uL [facility] Monocytes/100 WBC (Bld) 8.1 % [facility] Neutrophils (Bld) [#/Vol] 4.82 10*3/uL 1.45 - 7.50 k/uL [facility] Neutrophils/100 WBC (Bld) 75.3 % [facility] Nucleated RBC (Bld) [#/Vol] <0.01 k/uL [facility] Nucleated RBC/100 WBC (Bld) [Ratio] 0.0 /100 WBC [facility] Platelet mean volume (Bld) [Entitic vol] 10.7 fL 9.0 - 12.7 fL [facility] Platelets (Bld) [#/Vol] 139 10*3/uL Low 150 - 400 k/uL [facility] RBC (Bld) [#/Vol] 4.59 10*6/uL 4.20 - 6.0 0 m/uL [facility] WBC (Bld) [#/Vol] 6.40 10*3/uL 3.70 - 11.00 k/uL [facility] Comprehensive metabolic 2000 panelon 01-16-2023 Albumin [Mass/Vol] 4.6 g/dL 3.9 - 4.9 g/dL [facility] ALP [Catalytic activity/Vol] 198 U/L High 38 - 113 U/L [facility] ALT [Catalytic activity/Vol] 64 U/L High 10 - 54 U/L [facility] Anion gap [Moles/Vol] 8 mmol/L Low 9 - 18 mmol/L [facility] AST [Catalytic activity/Vol] 37 U/L 14 - 40 U/L [facility] Bilirubin [Mass/Vol] 0.6 mg/dL 0.2 - 1 .3 mg/dL [facility] Calcium [Mass/Vol] 10.1 mg/dL 8.5 - 10. 2 mg/dL [facility] Chloride [Moles/Vol] 104 mmol/L 97 - 10 5 mmol/L [facility] CO2 [Moles/Vol] 28 mmol/L 22 - 30 mmol/L [facility] Creatinine [Mass/Vol] 1.13 mg/dL 0.73 - 1.22 mg/dL [facility] Estimated Glomerular Filtration Rate 73 mL/min/1.73m >=60 mL/min/1.73 m [facility] Glucose [Mass/Vol] 115 mg/dL High 74 - 99 mg/dL [facility] Potassium [Moles/Vol] 5.1 mmol/L 3.7 - 5.1 mmol/L [facility] Protein [Mass/Vol] 7.2 g/dL 6.3 - 8.0 g/dL [facility] Sodium [Moles/Vol] 140 mmol/L 136 - 144 mmol/L [facility] Urea nitrogen [Mass/Vol] 24 mg/dL 9 - 24 mg/dL [facility] GGT BLDon 01-16-2023 Gamma glutamyl transferase [Catalytic activity/Vol] 198 U/L High 10 - 70 U/L [facility] MAGNESIUM BLDon 01-16-2023 Magnesium [Mass/Vol] 1.9 mg/dL 1.7 - 2 .3 mg/dL [facility] PHOSPHORUS INORGANICon 01-16 Phosphate [Mass/Vol] 3.3 mg/dL 2.7 - 4 .8 mg/dL [facility] CMV DNA DETECTION AND QUANTo n 01-10-2023 CMV DNA JAIME+probe Qn (P) Not detected Not Detected [facility] TACROLIMUS/FK-506 BLon 01-10 Tacrolimus (Bld) [Mass/Vol] 10.5 ng/mL 5.0 - 20.0 ng/mL [facility] CBC W Auto Differential pane l (Bld)on 01-09-2023 Basophils (Bld) [#/Vol] 0.04 10*3/uL <0.11 k/uL [facility] Basophils/100 WBC (Bld) 0.5 % [facility] Differential cell count method Nom (Bld) Auto [facility] Eosinophils (Bld) [#/Vol] 0.12 10*3/uL <0.46 k/uL [facility] Eosinophils/100 WBC (Bld) 1.6 % [facility] Erythrocyte distribution width (RBC) [Ratio] 13.6 % 11.5 - 15.0 % [facility] Hematocrit (Bld) [Volume fraction] 43.1 % 39.0 - 51.0 % [facility] Hemoglobin (Bld) [Mass/Vol] 14.3 g/dL 13.0 - 17.0 g/dL [facility] Immature granulocytes (Bld) [#/Vol] 0.06 10*3/uL <0.10 k/uL [facility] Immature granulocytes/100 WBC (Bld) 0.8 % [facility] Lymphocytes (Bld) [#/Vol] 1.07 10*3/uL 1.00 - 4.00 k/uL [facility] Lymphocytes/100 WBC (Bld) 14.4 % [facility] MCH (RBC) [Entitic mass] 31.6 pg 26.0 - 34.0 pg [facility] MCHC (RBC) [Mass/Vol] 33.2 g/dL 30.5 - 36.0 g/dL [facility] MCV (RBC) [Entitic vol] 95.1 fL 80.0 - 100.0 fL [facility] Monocytes (Bld) [#/Vol] 0.56 10*3/uL <0.87 k/uL [facility] Monocytes/100 WBC (Bld) 7.5 % [facility] Neutrophils (Bld) [#/Vol] 5.60 10*3/uL 1.45 - 7.50 k/uL [facility] Neutrophils/100 WBC (Bld) 75.2 % [facility] Nucleated RBC (Bld) [#/Vol] <0.01 k/uL [facility] Nucleated RBC/100 WBC (Bld) [Ratio] 0.0 /100 WBC [facility] Platelet mean volume (Bld) [Entitic vol] 10.5 fL 9.0 - 12.7 fL [facility] Platelets (Bld) [#/Vol] 144 10*3/uL Low 150 - 400 k/uL [facility] RBC (Bld) [#/Vol] 4.53 10*6/uL 4.20 - 6.0 0 m/uL [facility] WBC (Bld) [#/Vol] 7.45 10*3/uL 3.70 - 11.00 k/uL [facility] Comprehensive metabolic 2000 panelon 01-09-2023 Albumin [Mass/Vol] 4.7 g/dL 3.9 - 4.9 g/dL [facility] ALP [Catalytic activity/Vol] 241 U/L High 38 - 113 U/L [facility] ALT [Catalytic activity/Vol] 88 U/L High 10 - 54 U/L [facility] Anion gap [Moles/Vol] 8 mmol/L Low 9 - 18 mmol/L [facility] AST [Catalytic activity/Vol] 37 U/L 14 - 40 U/L [facility] Bilirubin [Mass/Vol] 0.5 mg/dL 0.2 - 1 .3 mg/dL [facility] Calcium [Mass/Vol] 10.1 mg/dL 8.5 - 10. 2 mg/dL [facility] Chloride [Moles/Vol] 103 mmol/L 97 - 10 5 mmol/L [facility] CO2 [Moles/Vol] 28 mmol/L 22 - 30 mmol/L [facility] Creatinine [Mass/Vol] 1.14 mg/dL 0.73 - 1.22 mg/dL [facility] Estimated Glomerular Filtration Rate 72 mL/min/1.73m >=60 mL/min/1.73 m [facility] Glucose [Mass/Vol] 137 mg/dL High 74 - 99 mg/dL [facility] Potassium [Moles/Vol] 4.9 mmol/L 3.7 - 5.1 mmol/L [facility] Protein [Mass/Vol] 7.3 g/dL 6.3 - 8.0 g/dL [facility] Sodium [Moles/Vol] 139 mmol/L 136 - 144 mmol/L [facility] Urea nitrogen [Mass/Vol] 22 mg/dL 9 - 24 mg/dL [facility] GGT BLDon 01-09-2023 Gamma glutamyl transferase [Catalytic activity/Vol] 215 U/L High 10 - 70 U/L [facility] MAGNESIUM BLDon 01-09-2023 Magnesium [Mass/Vol] 1.9 mg/dL 1.7 - 2 .3 mg/dL [facility] PHOSPHORUS INORGANICon 01-09 Phosphate [Mass/Vol] 2.6 mg/dL Low 2.7 - 4 .8 mg/dL [facility] US ABD LIVER VASCULARon 11-01 [facility] US DOPPLER COMPLETEon 2022 [facility] TACROLIMUS/FK-506 BLon 10-05 Tacrolimus (Bld) [Mass/Vol] 6.5 ng/mL 5.0 - 20.0 ng/mL [facility] CMV DNA DETECTION AND QUANTo n 10-04-2022 CMV DNA JAIME+probe Qn (P) Not detected Not Detected [facility] CBC W Auto Differential pane l (Bld)on 10-03-2022 Basophils (Bld) [#/Vol] 0.03 10*3/uL <0.11 k/uL [facility] Basophils/100 WBC (Bld) 0.2 % [facility] Differential cell count method Nom (Bld) Auto [facility] Eosinophils (Bld) [#/Vol] 0.10 10*3/uL <0.46 k/uL [facility] Eosinophils/100 WBC (Bld) 0.8 % [facility] Erythrocyte distribution width (RBC) [Ratio] 14.4 % 11.5 - 15.0 % [facility] Hematocrit (Bld) [Volume fraction] 43.3 % 39.0 - 51.0 % [facility] Hemoglobin (Bld) [Mass/Vol] 14.6 g/dL 13.0 - 17.0 g/dL [facility] Immature granulocytes (Bld) [#/Vol] 0.06 10*3/uL <0.10 k/uL [facility] Immature granulocytes/100 WBC (Bld) 0.5 % [facility] Lymphocytes (Bld) [#/Vol] 1.27 10*3/uL 1.00 - 4.00 k/uL [facility] Lymphocytes/100 WBC (Bld) 10.2 % [facility] MCH (RBC) [Entitic mass] 30.2 pg 26.0 - 34.0 pg [facility] MCHC (RBC) [Mass/Vol] 33.7 g/dL 30.5 - 36.0 g/dL [facility] MCV (RBC) [Entitic vol] 89.5 fL 80.0 - 100.0 fL [facility] Monocytes (Bld) [#/Vol] 0.76 10*3/uL <0.87 k/uL [facility] Monocytes/100 WBC (Bld) 6.1 % [facility] Neutrophils (Bld) [#/Vol] 10.27 10*3/uL High 1.45 - 7.50 k/uL [facility] Neutrophils/100 WBC (Bld) 82.2 % [facility] Nucleated RBC (Bld) [#/Vol] <0.01 k/uL [facility] Nucleated RBC/100 WBC (Bld) [Ratio] 0.0 /100 WBC [facility] Platelet mean volume (Bld) [Entitic vol] 10.8 fL 9.0 - 12.7 fL [facility] Platelets (Bld) [#/Vol] 125 10*3/uL Low 150 - 400 k/uL [facility] RBC (Bld) [#/Vol] 4.84 10*6/uL 4.20 - 6.0 0 m/uL [facility] WBC (Bld) [#/Vol] 12.49 10*3/uL High 3.70 - 11.00 k/uL [facility] Comprehensive metabolic 2000 panelon 10-03-2022 Albumin [Mass/Vol] 4.4 g/dL 3.9 - 4.9 g/dL [facility] ALP [Catalytic activity/Vol] 89 U/L 38 - 113 U/L [facility] ALT [Catalytic activity/Vol] 12 U/L 10 - 54 U/L [facility] Anion gap [Moles/Vol] 7 mmol/L Low 9 - 18 mmol/L [facility] AST [Catalytic activity/Vol] 11 U/L Low 14 - 40 U/L [facility] Bilirubin [Mass/Vol] 0.4 mg/dL 0.2 - 1 .3 mg/dL [facility] Calcium [Mass/Vol] 9.3 mg/dL 8.5 - 10. 2 mg/dL [facility] Chloride [Moles/Vol] 105 mmol/L 97 - 10 5 mmol/L [facility] CO2 [Moles/Vol] 27 mmol/L 22 - 30 mmol/L [facility] Creatinine [Mass/Vol] 1.29 mg/dL High 0.73 - 1.22 mg/dL [facility] Estimated Glomerular Filtration Rate 62 mL/min/1.73m >=60 mL/min/1.73 m [facility] Glucose [Mass/Vol] 108 mg/dL High 74 - 99 mg/dL [facility] Potassium [Moles/Vol] 4.3 mmol/L 3.7 - 5.1 mmol/L [facility] Protein [Mass/Vol] 6.7 g/dL 6.3 - 8.0 g/dL [facility] Sodium [Moles/Vol] 139 mmol/L 136 - 144 mmol/L [facility] Urea nitrogen [Mass/Vol] 36 mg/dL High 9 - 24 mg/dL [facility] GGT Don 10-03-2022 Gamma glutamyl transferase [Catalytic activity/Vol] 35 U/L 10 - 70 U/L [facility] MAGNESIUM Don 10-03-2022 Magnesium [Mass/Vol] 2.2 mg/dL 1.7 - 2 .3 mg/dL [facility] PHOSPHORUS INORGANICon 10-03 Phosphate [Mass/Vol] 3.0 mg/dL 2.7 - 4 .8 mg/dL [facility] CBC W Auto Differential pane l (Bld)on 08-30-2022 Basophils (Bld) [#/Vol] 0.03 10*3/uL <0.11 k/uL [facility] Basophils/100 WBC (Bld) 0.6 % [facility] Differential cell count method Nom (Bld) Auto [facility] Eosinophils (Bld) [#/Vol] 0.15 10*3/uL <0.46 k/uL [facility] Eosinophils/100 WBC (Bld) 2.9 % [facility] Erythrocyte distribution width (RBC) [Ratio] 13.3 % 11.5 - 15.0 % [facility] Hematocrit (Bld) [Volume fraction] 44.1 % 39.0 - 51.0 % [facility] Hemoglobin (Bld) [Mass/Vol] 14.1 g/dL 13.0 - 17.0 g/dL [facility] Immature granulocytes (Bld) [#/Vol] <0.10 k/uL [facility] Immature granulocytes/100 WBC (Bld) 0.4 % [facility] Lymphocytes (Bld) [#/Vol] 0.78 10*3/uL Low 1.00 - 4.00 k/uL [facility] Lymphocytes/100 WBC (Bld) 15.1 % [facility] MCH (RBC) [Entitic mass] 28.6 pg 26.0 - 34.0 pg [facility] MCHC (RBC) [Mass/Vol] 32.0 g/dL 30.5 - 36.0 g/dL [facility] MCV (RBC) [Entitic vol] 89.5 fL 80.0 - 100.0 fL [facility] Monocytes (Bld) [#/Vol] 0.38 10*3/uL <0.87 k/uL [facility] Monocytes/100 WBC (Bld) 7.3 % [facility] Neutrophils (Bld) [#/Vol] 3.82 10*3/uL 1.45 - 7.50 k/uL [facility] Neutrophils/100 WBC (Bld) 73.7 % [facility] Nucleated RBC (Bld) [#/Vol] <0.01 k/uL [facility] Nucleated RBC/100 WBC (Bld) [Ratio] 0.0 /100 WBC [facility] Platelet mean volume (Bld) [Entitic vol] 11.2 fL 9.0 - 12.7 fL [facility] Platelets (Bld) [#/Vol] 109 10*3/uL Low 150 - 400 k/uL [facility] RBC (Bld) [#/Vol] 4.93 10*6/uL 4.20 - 6.0 0 m/uL [facility] WBC (Bld) [#/Vol] 5.18 10*3/uL 3.70 - 11.00 k/uL [facility] CMV DNA DETECTION AND QUANTo n 08-30-2022 CMV DNA JAIME+probe Qn (P) Not detected Not Detected [facility] Comprehensive metabolic 2000 panelon 08-30-2022 Albumin [Mass/Vol] 4.3 g/dL 3.9 - 4.9 g/dL [facility] ALP [Catalytic activity/Vol] 178 U/L High 38 - 113 U/L [facility] ALT [Catalytic activity/Vol] 60 U/L High 10 - 54 U/L [facility] Anion gap [Moles/Vol] 8 mmol/L Low 9 - 18 mmol/L [facility] AST [Catalytic activity/Vol] 46 U/L High 14 - 40 U/L [facility] Bilirubin [Mass/Vol] 0.6 mg/dL 0.2 - 1 .3 mg/dL [facility] Calcium [Mass/Vol] 9.7 mg/dL 8.5 - 10. 2 mg/dL [facility] Chloride [Moles/Vol] 104 mmol/L 97 - 10 5 mmol/L [facility] CO2 [Moles/Vol] 27 mmol/L 22 - 30 mmol/L [facility] Creatinine [Mass/Vol] 1.14 mg/dL 0.73 - 1.22 mg/dL [facility] Estimated Glomerular Filtration Rate 72 mL/min/1.73m >=60 mL/min/1.73 m [facility] Glucose [Mass/Vol] 107 mg/dL High 74 - 99 mg/dL [facility] Potassium [Moles/Vol] 4.7 mmol/L 3.7 - 5.1 mmol/L [facility] Protein [Mass/Vol] 6.9 g/dL 6.3 - 8.0 g/dL [facility] Sodium [Moles/Vol] 139 mmol/L 136 - 144 mmol/L [facility] Urea nitrogen [Mass/Vol] 27 mg/dL High 9 - 24 mg/dL [facility] GGT [facility] 08-30-2022 Gamma glutamyl transferase [Catalytic activity/Vol] 332 U/L High 10 - 70 U/L [facility] MAGNESIUM BLDon 08-30-2022 Magnesium [Mass/Vol] 1.7 mg/dL 1.7 - 2 .3 mg/dL [facility] PHOSPHORUS INORGANICon 08-30 Phosphate [Mass/Vol] 2.2 mg/dL Low 2.7 - 4 .8 mg/dL [facility] TACROLIMUS/FK-506 BLon 08-30 Tacrolimus (Bld) [Mass/Vol] 7.6 ng/mL 5.0 - 20.0 ng/mL [facility] CT ABD/PEL WO IVCONon 2022 [facility] No Panel Informationon 07-[address] [facility] [address] LSPINE WO CONon CT LSPINE WO CON EXAMINATION: CT LSPI NE WO CON, 06/08/2022 12:42 PM EST HISTORY: Compression fracture COMPARISON: XR L-spine 12/06/2018 TECHNIQUE: CT of the lumbar spine was performed without IV contrast. CT dose reduction technique was used, including Automated Exposure Control. FINDINGS: PARASPINAL AREA: Fusiform dilation of infrarenal aorta, 4.3 cm in diameter. Marked atherosclerotic disease of the distal aorta and common iliac arteries. BONES: Moderate compression fracture of L1 which appears to be chronic. CERVICAL DISC LEVELS: 12-L1: Early degenerative disc disease is present without focal protrusion or neural impingement. L1-L2: Early degenerative disc disease is present without focal protrusion or neural impingement. L2-L3: Early degenerative disc disease is present without focal protrusion or neural impingement. L3-L4: Early degenerative disc disease is present without focal protrusion or neural impingement. L4-L5: Early degenerative disc disease is present without focal protrusion or neural impingement. L5-S1: Mild central canal, marked right foramen, moderate left foramen narrowing. Moderate diffuse disc bulging with mild disc height reduction. Moderate degenerative facet arthropathy bilaterally. IMPRESSION: 1. Fusiform aneurysmal dilation of the infrarenal aorta, 4.3 cm; increased in size since 02/08/2018. 2. Stable, chronic moderate compression fracture of L1. 3. L5-S1 marked right foramen narrowing, moderate left foramen narrowing, mild central canal narrowing secondary to degenerative disc bulging and facet arthropathy. 4. Multilevel mild foramen narrowing bilaterally, predominantly due to congenitally short pedicles. Electronically authenticated by: YSABEL CARPENTER Date: 2022-06-08 14:20 Normal [facility] Covid-19 PCR (CVDTBH)on SARS-CoV-2 (COVID-19) RNA JAIME+probe Ql (Unsp spec) Not detected Normal NOT DETECTED [facility] Comment on above: Result Comment: When diagnostic testing is negative, the possibility of a false negative should be considered in the context of a patient's recent exposures and the presence of clinical signs and symptoms consistent with SARS-CoV-2. This test is not yet approved or cleared by the [place] FDA. When there are no FDA-approved or cleared tests available, and other criteria are met, FDA can make tests available under an emergency access mechanism called an Emergency Use Authorization (EUA). The EUA for this test is supported by the [employer] of Health and Human Service's declaration that circumstances exist to justify the emergency use of in vitro diagnostics for the detection and/or diagnosis of the virus that causes COVID-19. This EUA will remain in effect for the duration of the COVID-19 declaration justifying emergency of IVDs, unless it is terminated or revoked by the FDA (after which the test may no longer be used). Performed By: #### [facility] #### [facility] [address] [place] [address] Dr. Angeline Coronado HEMOGLOBIN A1C (POC)on 05-31 HbA1c (Bld) [Mass fraction] 4.7 % 4.2 - 5.6 % [facility] GGT BLDon 05-27-2022 Gamma glutamyl transferase [Catalytic activity/Vol] 106 U/L High 10 - 70 U/L [facility] CBC W Auto Differential pane l (Bld)on 05-26-2022 Basophils (Bld) [#/Vol] 0.08 10*3/uL <0.11 k/uL [facility] Basophils/100 WBC (Bld) 1.1 % [facility] Differential cell count method Nom (Bld) Auto [facility] Eosinophils (Bld) [#/Vol] 0.25 10*3/uL <0.46 k/uL [facility] Eosinophils/100 WBC (Bld) 3.5 % [facility] Erythrocyte distribution width (RBC) [Ratio] 16.6 % High 11.5 - 15.0 % [facility] Hematocrit (Bld) [Volume fraction] 31.9 % Low 39.0 - 51.0 % [facility] Hemoglobin (Bld) [Mass/Vol] 10.3 g/dL Low 13.0 - 17.0 g/dL [facility] Immature granulocytes (Bld) [#/Vol] 0.09 10*3/uL <0.10 k/uL [facility] Immature granulocytes/100 WBC (Bld) 1.3 % [facility] Lymphocytes (Bld) [#/Vol] 0.67 10*3/uL Low 1.00 - 4.00 k/uL [facility] Lymphocytes/100 WBC (Bld) 9.5 % [facility] MCH (RBC) [Entitic mass] 30.3 pg 26.0 - 34.0 pg [facility] MCHC (RBC) [Mass/Vol] 32.3 g/dL 30.5 - 36.0 g/dL [facility] MCV (RBC) [Entitic vol] 93.8 fL 80.0 - 100.0 fL [facility] Monocytes (Bld) [#/Vol] 0.62 10*3/uL <0.87 k/uL [facility] Monocytes/100 WBC (Bld) 8.8 % [facility] Neutrophils (Bld) [#/Vol] 5.35 10*3/uL 1.45 - 7.50 k/uL [facility] Neutrophils/100 WBC (Bld) 75.8 % [facility] Nucleated RBC (Bld) [#/Vol] <0.01 k/uL [facility] Nucleated RBC/100 WBC (Bld) [Ratio] 0.0 /100 WBC [facility] Platelet mean volume (Bld) [Entitic vol] 9.3 fL 9.0 - 12.7 fL [facility] Platelets (Bld) [#/Vol] 241 10*3/uL 150 - 400 k/uL [facility] RBC (Bld) [#/Vol] 3.40 10*6/uL Low 4.20 - 6.0 0 m/uL [facility] WBC (Bld) [#/Vol] 7.06 10*3/uL 3.70 - 11.00 k/uL [facility] Comprehensive metabolic 2000 panelon 05-26-2022 Albumin [Mass/Vol] 3.5 g/dL Low 3.9 - 4.9 g/dL [facility] ALP [Catalytic activity/Vol] 183 U/L High 38 - 113 U/L [facility] ALT [Catalytic activity/Vol] 19 U/L 10 - 54 U/L [facility] Anion gap [Moles/Vol] 10 mmol/L 9 - 18 mmol/L [facility] AST [Catalytic activity/Vol] 18 U/L 14 - 40 U/L [facility] Bilirubin [Mass/Vol] 0.7 mg/dL 0.2 - 1 .3 mg/dL [facility] Calcium [Mass/Vol] 9.1 mg/dL 8.5 - 10. 2 mg/dL [facility] Chloride [Moles/Vol] 102 mmol/L 97 - 10 5 mmol/L [facility] CO2 [Moles/Vol] 25 mmol/L 22 - 30 mmol/L [facility] Creatinine [Mass/Vol] 0.92 mg/dL 0.73 - 1.22 mg/dL [facility] Estimated Glomerular Filtration Rate 93 mL/min/1.73m >=60 mL/min/1.73 m [facility] Glucose [Mass/Vol] 108 mg/dL High 74 - 99 mg/dL [facility] Potassium [Moles/Vol] 4.9 mmol/L 3.7 - 5.1 mmol/L [facility] Protein [Mass/Vol] 6.7 g/dL 6.3 - 8.0 g/dL [facility] Sodium [Moles/Vol] 137 mmol/L 136 - 144 mmol/L [facility] Urea nitrogen [Mass/Vol] 22 mg/dL 9 - 24 mg/dL [facility] MAGNESIUM BLDon 05-26-2022 Magnesium [Mass/Vol] 1.5 mg/dL Low 1.7 - 2 .3 mg/dL [facility] PHOSPHORUS INORGANICon 05-26 Phosphate [Mass/Vol] 2.9 mg/dL 2.7 - 4 .8 mg/dL [facility] TACROLIMUS/FK-506 BLon 05-26 Tacrolimus (Bld) [Mass/Vol] 11.5 ng/mL 5.0 - 20.0 ng/mL [facility] XR TSPINE 3 VIEWSon 05-26-19 XR TSPINE 3 VIEWS EXAMINATION: XR LSPI NE MIN 4 VIEWS, XR TSPINE 3 VIEWS HISTORY: Prolapsed lumbar intervertebral disc ; acute back pain since confined to bed post liver transplant COMPARISON: XR L-spine 12/06/2018 FINDINGS: BONES: Moderate compression fracture of L1 without increased trabecular density. Mild degenerative facet arthropathy L4-L5, L5-S1. DISC SPACES: Mild narrowing L2-L3, L3-L4. Moderate narrowing L5-S1. PARASPINOUS: Atherosclerotic disease and dilation of the distal aorta, 3.9 cm. OTHER: Negative. IMPRESSION: 1. L1 moderate compression fracture, new since 2019, but suspected to be chronic. 2. L5-S1 moderate degenerative disc disease and mild degenerative facet arthropathy. Mild degenerative changes at other lumbar levels. 3. Unremarkable thoracic spine. 4. Suspect 3.9 cm aneurysm of infrarenal aorta; increased compared to an 02/08/2018 CT abdomen pelvis study (3.1 cm). Electronically authenticated by: YSABEL CARPENTER Date: 2022-05-26 18:46 Normal [facility] CMV DNA DETECTION AND QUANTo n 2022 CMV DNA JAIME+probe Qn (P) Not detected Not Detected [facility] TACROLIMUS/FK-506 BLon 05-24 Tacrolimus (Bld) [Mass/Vol] 11.6 ng/mL 5.0 - 20.0 ng/mL [facility] CBC W Auto Differential pane l (Bld)on 05-23-2022 Basophils (Bld) [#/Vol] 0.09 10*3/uL <0.11 k/uL [facility] Basophils/100 WBC (Bld) 0.9 % [facility] Differential cell count method Nom (Bld) Auto [facility] Eosinophils (Bld) [#/Vol] 0.26 10*3/uL <0.46 k/uL [facility] Eosinophils/100 WBC (Bld) 2.6 % [facility] Erythrocyte distribution width (RBC) [Ratio] 16.7 % High 11.5 - 15.0 % [facility] Hematocrit (Bld) [Volume fraction] 33.0 % Low 39.0 - 51.0 % [facility] Hemoglobin (Bld) [Mass/Vol] 10.6 g/dL Low 13.0 - 17.0 g/dL [facility] Immature granulocytes (Bld) [#/Vol] 0.07 10*3/uL <0.10 k/uL [facility] Immature granulocytes/100 WBC (Bld) 0.7 % [facility] Lymphocytes (Bld) [#/Vol] 0.89 10*3/uL Low 1.00 - 4.00 k/uL [facility] Lymphocytes/100 WBC (Bld) 9.0 % [facility] MCH (RBC) [Entitic mass] 30.3 pg 26.0 - 34.0 pg [facility] MCHC (RBC) [Mass/Vol] 32.1 g/dL 30.5 - 36.0 g/dL [facility] MCV (RBC) [Entitic vol] 94.3 fL 80.0 - 100.0 fL [facility] Monocytes (Bld) [#/Vol] 0.71 10*3/uL <0.87 k/uL [facility] Monocytes/100 WBC (Bld) 7.2 % [facility] Neutrophils (Bld) [#/Vol] 7.86 10*3/uL High 1.45 - 7.50 k/uL [facility] Neutrophils/100 WBC (Bld) 79.6 % [facility] Nucleated RBC (Bld) [#/Vol] <0.01 k/uL [facility] Nucleated RBC/100 WBC (Bld) [Ratio] 0.0 /100 WBC [facility] Platelet mean volume (Bld) [Entitic vol] 9.9 fL 9.0 - 12.7 fL [facility] Platelets (Bld) [#/Vol] 246 10*3/uL 150 - 400 k/uL [facility] RBC (Bld) [#/Vol] 3.50 10*6/uL Low 4.20 - 6.0 0 m/uL [facility] WBC (Bld) [#/Vol] 9.88 10*3/uL 3.70 - 11.00 k/uL [facility] Comprehensive metabolic 2000 panelon 05-23-2022 Albumin [Mass/Vol] 3.5 g/dL Low 3.9 - 4.9 g/dL [facility] ALP [Catalytic activity/Vol] 156 U/L High 38 - 113 U/L [facility] ALT [Catalytic activity/Vol] 19 U/L 10 - 54 U/L [facility] Anion gap [Moles/Vol] 10 mmol/L 9 - 18 mmol/L [facility] AST [Catalytic activity/Vol] 14 U/L 14 - 40 U/L [facility] Bilirubin [Mass/Vol] 0.7 mg/dL 0.2 - 1 .3 mg/dL [facility] Calcium [Mass/Vol] 9.0 mg/dL 8.5 - 10. 2 mg/dL [facility] Chloride [Moles/Vol] 102 mmol/L 97 - 10 5 mmol/L [facility] CO2 [Moles/Vol] 27 mmol/L 22 - 30 mmol/L [facility] Creatinine [Mass/Vol] 0.79 mg/dL 0.73 - 1.22 mg/dL [facility] Estimated Glomerular Filtration Rate 100 mL/min/1.73m >=60 mL/min/1.73 m [facility] Glucose [Mass/Vol] 102 mg/dL High 74 - 99 mg/dL [facility] Potassium [Moles/Vol] 4.9 mmol/L 3.7 - 5.1 mmol/L [facility] Protein [Mass/Vol] 6.8 g/dL 6.3 - 8.0 g/dL [facility] Sodium [Moles/Vol] 139 mmol/L 136 - 144 mmol/L [facility] Urea nitrogen [Mass/Vol] 17 mg/dL 9 - 24 mg/dL [facility] GGT [facility] 05-23-2022 Gamma glutamyl transferase [Catalytic activity/Vol] 109 U/L High 10 - 70 U/L [facility] MAGNESIUM [facility] 05-23-2022 Magnesium [Mass/Vol] 1.5 mg/dL Low 1.7 - 2 .3 mg/dL [facility] PHOSPHORUS INORGANICon 05-23 Phosphate [Mass/Vol] 2.9 mg/dL 2.7 - 4 .8 mg/dL [facility] CT LIVER W IVCONon 3 [facility] Activated partial thrombopla stin time (aPTT) in platelet poor plasma by coagulation aOrdered By: Dayna Reyes on 04-22-2022 aPTT Coag (PPP) [Time] 34.1 s 25.1-36.5 [facility] - CoagulationOrde red By: Dayna Reyes on 04-22-2022 PT Coag (PPP) [Time] 13.4 s 9.0-12.9 [facility] Platelet poor plasma interna tional normalized ratio (INR) by coagulation assay (relatOrdered By: Dayna Reyes on 04-22-2022 INR Coag (PPP) [Relative time] 1.2 {INR} [facility] Comment on above: INR Therapeutic Rang e A) Pre- and Peroperative OAT started two weeks before surgery. NOT HIP SURGERY: 1.5 - 2.5 HIP SURGERY: 2 - 3B) Primary and secondary prevention of venous THROMBOSIS: 2 - 3C) Active venous thrombosis, pulmonary embolismand prevention of recurrent venous thrombosis: 2 - 3D) Prevention of arterial thromboembolismincluding patients with mechanical heart valves: 3 - 4.5 Platelets Auto (Bld) [#/Vol] Ordered By: Dayna Reyes on 04-22-2022 Platelets (Bld) [#/Vol] 101 10*3/uL 150-450 [facility] US DOPPLER COMPLETEon 2022 [facility] US SCROTUM AND CONTENTSon [facility] CT ABD/PEL WO IVCONon 2021 [facility] BF MANUAL DIFFon 03-23-2022 Diff Total Body Fluid 100 cells counted [facility] Lymph%, BF 70 % High 18 - 36 % [facility] Macro%, BF 9 % Low 64 - 80 % [facility] Meso%, BF 4 % High 0 - 2 % [facility] [place]%, BF 15 % [facility] Neut%, BF 2 % High 0 - 1 % [facility] ALBUMIN BFLon 03-22-2022 Albumin (Body fld) [Mass/Vol] 1.6 g/dL See Comment g/dL [facility] AMYLASE BFLon 03-22-2022 Amylase (Body fld) [Catalytic activity/Vol] 19 U/L See Comment U/L [facility] BODY FLUID CELL COUNTon 03-04 Clarity (Unsp spec) Slightly Cloudy Abnormal Clear [facility] Clarity (Unsp spec) Clear Clear [facility] RBC Manual cnt (Body fld) [#/Vol] <2,000 /uL [facility] Specimen source Nom (Body fld) ABDOMINAL FLUID. [facility] WBC Manual cnt (Body fld) [#/Vol] 139 /uL <1,000 /uL [facility] Laboratoryon 03-22-2022 Fluid Nom (Body fld) abdominal paracente sis ascites fluid [facility] - Specimen inform ationon 03-22-2022 Color (Body fld) Yellow Yellow [facility] PROTEIN BFLon 03-22-2022 Protein (Body fld) [Mass/Vol] 3.3 g/dL See Comment g/dL [facility] PARACENTESIS (POC) DDI US E ONLYon 03-22-2022 [facility] ASCITES SURVEYon 02-24-20 US ASCITES SURVEY * * *Final Report* * * DATE OF EXAM: Feb 23 2022 1:08PM [facility] 1016 - ASCITES SURVEY / PROCEDURE REASON: multiple diagnoses * * * * Physician Interpretation * * * * EXAMINATION: US ASCITES SURVEY Clinical history: 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) RESULT: A small to moderate amount of homogeneous ascites is seen IMPRESSION: Small to moderate amount of ascites Senior Partner: JADE Transcribe Date/Time: Feb 23 2022 1:28P Dictated by : LORAINE POWELL MD This examination was interpreted and the report reviewed and electronically signed by: LORAINE POWELL MD on Feb 23 2022 1:28PM EST [id number] Normal [facility] US ASCITES SURVEYon 02-11-[address] [facility] [address] CHEST WO IVCONon 12-30-19 [facility] US ASCITES SURVEYon 12-23-19 [facility] US ABD LIVER VASCULARon 09-0 [facility] US DOPPLER COMPLETEon 2021 [facility] TYPE AND SCREEN,30 DAYon ABO O [facility] HIstorical Ab Scr Status Negative [facility] Rh Nom (Bld) Positive [facility] ACTIVATED PTTon 11-11-2021 aPTT Coag (PPP) [Time] 30.1 s 23.0 - 32.4 sec [facility] CBC W Auto Differential pane l (Bld)on 11-11-2021 Abs Immature Gran 0.03 k/uL <0.10 k/uL [facility] Basophils (Bld) [#/Vol] 0.03 10*3/uL <0.11 k/uL [facility] Basophils/100 WBC (Bld) 0.5 % [facility] Differential cell count method Nom (Bld) Auto [facility] Eosinophils (Bld) [#/Vol] 0.14 10*3/uL <0.46 k/uL [facility] Eosinophils/100 WBC (Bld) 2.3 % [facility] Erythrocyte distribution width (RBC) [Ratio] 15.7 % High 11.5 - 15.0 % [facility] Hematocrit (Bld) [Volume fraction] 46.1 % 39.0 - 51.0 % [facility] Hemoglobin (Bld) [Mass/Vol] 14.8 g/dL 13.0 - 17.0 g/dL [facility] Immature Gran % 0.5 % [facility] Lymphocytes (Bld) [#/Vol] 0.94 10*3/uL Low 1.00 - 4.00 k/uL [facility] Lymphocytes/100 WBC (Bld) 15.7 % [facility] MCH (RBC) [Entitic mass] 31.1 pg 26.0 - 34.0 pg [facility] MCHC (RBC) [Mass/Vol] 32.1 g/dL 30.5 - 36.0 g/dL [facility] MCV (RBC) [Entitic vol] 96.8 fL 80.0 - 100.0 fL [facility] Monocytes (Bld) [#/Vol] 0.42 10*3/uL <0.87 k/uL [facility] Monocytes/100 WBC (Bld) 7.0 % [facility] Neutrophils (Bld) [#/Vol] 4.42 10*3/uL 1.45 - 7.50 k/uL [facility] Neutrophils/100 WBC (Bld) 74.0 % [facility] Nucleated RBC (Bld) [#/Vol] <0.01 k/uL [facility] Nucleated RBC/100 WBC (Bld) [Ratio] 0.0 /100 WBC [facility] Platelet mean volume (Bld) [Entitic vol] [facility] Platelets (Bld) [#/Vol] 18 10*3/uL Low 150 - 400 k/uL [facility] RBC (Bld) [#/Vol] 4.76 10*6/uL 4.20 - 6.0 0 m/uL [facility] WBC (Bld) [#/Vol] 5.98 10*3/uL 3.70 - 11.00 k/uL [facility] Comprehensive metabolic 2000 panelon 11-11-2021 Albumin [Mass/Vol] 2.8 g/dL Low 3.9 - 4.9 g/dL [facility] ALP [Catalytic activity/Vol] 235 U/L High 38 - 113 U/L [facility] ALT [Catalytic activity/Vol] 27 U/L 10 - 54 U/L [facility] Anion gap [Moles/Vol] 7 mmol/L Low 9 - 18 mmol/L [facility] AST [Catalytic activity/Vol] 42 U/L High 14 - 40 U/L [facility] Bilirubin [Mass/Vol] 1.9 mg/dL High 0.2 - 1 .3 mg/dL [facility] Calcium [Mass/Vol] 9.1 mg/dL 8.5 - 10. 2 mg/dL [facility] Chloride [Moles/Vol] 102 mmol/L 97 - 10 5 mmol/L [facility] CO2 [Moles/Vol] 26 mmol/L 22 - 30 mmol/L [facility] Creatinine [Mass/Vol] 0.82 mg/dL 0.73 - 1.22 mg/dL [facility] Estimated Glomerular Filtration Rate 99 mL/min/1.73m >=60 mL/min/1.73 m [facility] Glucose [Mass/Vol] 100 mg/dL High 74 - 99 mg/dL [facility] Potassium [Moles/Vol] 5.3 mmol/L High 3.7 - 5.1 mmol/L [facility] Protein [Mass/Vol] 7.5 g/dL 6.3 - 8.0 g/dL [facility] Sodium [Moles/Vol] 135 mmol/L Low 136 - 144 mmol/L [facility] Urea nitrogen [Mass/Vol] 15 mg/dL 9 - 24 mg/dL [facility] PT panel Coag (PPP)on 2021 INR Coag (PPP) [Relative time] 1.2 {INR} 0.9 - 1.3 [facility] PT Coag (PPP) [Time] 12.1 s 9.7 - 1 3.0 sec [facility] Covid-19 PCR (CVDTBH)on 10-02 SARS-CoV-2 (COVID-19) RNA JAIME+probe Ql (Unsp spec) Not detected Normal NOT DETECTED [facility] Comment on above: Result Comment: This test is not yet approved or cleared by the [place] FDA. When there are no FDA-approved or cleared tests available, and other criteria are met, FDA can make tests available under an emergency access mechanism called an Emergency Use Authorization (EUA). The EUA for this test is supported by the [employer] of Health and Human Service's (HHS's) declaration that circumstances exist to justify the emergency use of in vitro diagnostics for the detection and/or diagnosis of the virus that causes COVID-19. This EUA will remain in effect (meaning this test can be used) for the duration of the COVID-19 declaration justifying emergency of IVDs, unless it is terminated or revoked by FDA (after which the test may no longer be used). When diagnostic testing is negative, the possibility of a false negative should be considered in the context of a patient's recent exposures and the presence of clinical signs and symptoms consistent with SARS-CoV-2. Performed By: #### [facility] #### [facility] [address] [place] [address] Dr. Angeline Coronado LVEF STRESS ECHO DOBUTAMINEo n 09-13-2021 LV Ejection Fraction 55 % [facility] STRESS ECHO DOBUTAMINEon [facility] No Panel Informationon 07-13 [facility] BILIRUBIN DIRECT BLDon 07-07 Bilirubin.conjugated [Mass/Vol] 0.4 mg/dL High <0.2 mg/dL [facility] CBC W Auto Differential pane l (Bld)on 07-07-2021 Abs Immature Gran <0.03 <0.10 k/uL [facility] Basophils (Bld) [#/Vol] 0.03 10*3/uL <0.11 k/uL [facility] Basophils/100 WBC (Bld) 0.5 % [facility] Differential cell count method Nom (Bld) Auto [facility] Eosinophils (Bld) [#/Vol] 0.18 10*3/uL <0.46 k/uL [facility] Eosinophils/100 WBC (Bld) 3.2 % [facility] Erythrocyte distribution width (RBC) [Ratio] 14.3 % 11.5 - 15.0 % [facility] Hematocrit (Bld) [Volume fraction] 50.0 % 39.0 - 51.0 % [facility] Hemoglobin (Bld) [Mass/Vol] 16.1 g/dL 13.0 - 17.0 g/dL [facility] Immature Gran % 0.4 % [facility] Lymphocytes (Bld) [#/Vol] 0.95 10*3/uL Low 1.00 - 4.00 k/uL [facility] Lymphocytes/100 WBC (Bld) 17.0 % [facility] MCH (RBC) [Entitic mass] 30.9 pg 26.0 - 34.0 pg [facility] MCHC (RBC) [Mass/Vol] 32.2 g/dL 30.5 - 36.0 g/dL [facility] MCV (RBC) [Entitic vol] 96.0 fL 80.0 - 100.0 fL [facility] Monocytes (Bld) [#/Vol] 0.52 10*3/uL <0.87 k/uL [facility] Monocytes/100 WBC (Bld) 9.3 % [facility] Neutrophils (Bld) [#/Vol] 3.89 10*3/uL 1.45 - 7.50 k/uL [facility] Neutrophils/100 WBC (Bld) 69.6 % [facility] Nucleated RBC (Bld) [#/Vol] 10*3/uL <0.01 k/uL [facility] Nucleated RBC/100 WBC (Bld) [Ratio] 0.0 /100 WBC [facility] Platelet mean volume (Bld) [Entitic vol] 11.3 fL 9.0 - 12.7 fL [facility] Platelets (Bld) [#/Vol] 99 10*3/uL Low 150 - 400 k/uL [facility] RBC (Bld) [#/Vol] 5.21 10*6/uL 4.20 - 6.0 0 m/uL [facility] WBC (Bld) [#/Vol] 5.59 10*3/uL 3.70 - 11.00 k/uL [facility] Comprehensive metabolic 2000 panelon 07-07-2021 Albumin [Mass/Vol] 3.8 g/dL Low 3.9 - 4.9 g/dL [facility] ALP [Catalytic activity/Vol] 215 U/L High 38 - 113 U/L [facility] ALT [Catalytic activity/Vol] 12 U/L 10 - 54 U/L [facility] Anion gap [Moles/Vol] 12 mmol/L 9 - 18 mmol/L [facility] AST [Catalytic activity/Vol] 34 U/L 14 - 40 U/L [facility] Bilirubin [Mass/Vol] 1.6 mg/dL High 0.2 - 1 .3 mg/dL [facility] Calcium [Mass/Vol] 9.6 mg/dL 8.5 - 10. 2 mg/dL [facility] Chloride [Moles/Vol] 103 mmol/L 97 - 10 5 mmol/L [facility] CO2 [Moles/Vol] 24 mmol/L 22 - 30 mmol/L [facility] Creatinine [Mass/Vol] 0.87 mg/dL 0.73 - 1.22 mg/dL [facility] Estimated Glomerular Filtration Rate 98 mL/min/1.73m >=60 mL/min/1.73 m [facility] Glucose [Mass/Vol] 94 mg/dL 74 - 99 mg/dL [facility] Potassium [Moles/Vol] 4.8 mmol/L 3.7 - 5.1 mmol/L [facility] Protein [Mass/Vol] 8.7 g/dL High 6.3 - 8.0 g/dL [facility] Sodium [Moles/Vol] 139 mmol/L 136 - 144 mmol/L [facility] Urea nitrogen [Mass/Vol] 13 mg/dL 9 - 24 mg/dL [facility] PT panel Coag (PPP)on 2021 INR Coag (PPP) [Relative time] 1.1 {INR} 0.9 - 1.3 [facility] PT Coag (PPP) [Time] 11.4 s 9.7 - 1 3.0 sec [facility] No Panel Informationon 06-[address] [facility] [address] ABD/PEL WO IVCONon 2021 [facility] Coding Summary.on 04-12-2021 Coding Summary. [id number] Gh0bWw+ PGhlYWQ+JH0CKRNcU06ynBJjuD8 WH8qHBS2CTQCWMKZHJN5TOJ6nyT D2TYrqO0AfraFn XjyxdALrXL34JUk8IHS8qMrqMJt dyY6glVQuA7x3JaKaWJ67uA95UH xqRGExOyR6CzIystdhoXVl T1qsOpBctCDqLdt+PHRhYmxlIHd pYOGbNBtiOFOgSjDqzXacCX1cHu 9yZGVyLWNvbGxhcHNlOiBj l2kwPJBqLPdqVV0iaBvfQ6FnkEO 1FAWpm6p9Lp67iTE+BAOhGOW6lS qyBNruk625UpEbj0ixXPP7 lNKyYGuyJMN6C78ly1U9SLAuGDX xWHR2zNC4kE2jbOxcwwhzU1LlqY FuZwU7YJI5sLZwtD8iiTfw dhzwpO2sKoy+V47ZZQ1DGIJATT4 SXct4W9FcKdsikQV+NY48LQLjOV 76iVMhmMYwj1jeeDa9MvOs DERaNIE9iEmxTGypc3VwHWTzH02 wlPOzs4I0YWTgrFgveVSsUfQirZ Q9eZ1wQBxocrleq1kfmrxg Movkl7zuqo56gW17J54hTOjbTBC aTNN5WWQeZRJcfKdods2qoV5fYh 8+UQoyd4ias6uumGn2OnFp DWDtgnWeyIibMKJ8y3XyMm66C4L zdDmwr1AvZwh4bh70cHFsk6R4gV J0DEitCOQtcL7xWTouSrW5 BLCdReUxxZ98wSCdBBdkKr5jcVz xjUopZQ9jHYHygiviTPMezB3pQQ ZdhWZyzQeuQM3ePGXddehv s742BwQuJEO6QVDttRVmZ8NuaR7 vBbSvSKHyYLHbT6PghITqCAhfR9 69DOdjAcD5RAGupoXoF6Pi EHBmiXdxWjS0x3X8Yj3Oa3Vtpcv iOLZ6KIgdIZWpOwCcArAuVcX3M8 EtJiq0IYAidJsbTH5hV2Sa QSPnvvuvotplmCV1GMUnSUGkxC3 8nHPeQIneAw5bv4M9a674UNQbHO GqdP16Oy7znKkwTYZqnKCV cO7bpitop5jnekcwVtRlGZQwTJh 1KXy6PHBlqWkgCxWqRVI6QrT1ID U9jRCgtO8hsSdvayqjdE7x Oyc+C37hlA9vJMY1REV3qsqzEIR qbeGdEE62BB03V5KfOgqqsZFzaO U+RNRlemIptAahPD7vWnVi z1nol3PuVZfjN2JvLKLwUWsuDxl 5DUFbKXH4aSL6nM5yPQUbRHbix7 G8bBO0I9ZiywKkme0tg9if YOKtRIrnO21mfDPsg0J0KZRwpIQ 1FDGjdQylRgYwdY06Tmi+PGNvbG dtk7KmNzkta7ofl3wiyJh6 KzEeQAGgumHrjBpkDWT6o3KpFr4 9W75bUYabGANpOXZjLZOkKLAcnW eyyp1osP9ePy8+PGNvbCB3 cPI9vK7cWQYzLoR6PAmgU467XuY srTGsNsvjt6xxc5gmlGq8JyNpLF DebnQycYpiIQL2g6VrZn10 M94nCVyrEYDxTKTyTMIdULAdaLf edk9crL0iKa4+XU8jq4wtqc67xG 48dHI+RWWdNUW6xQfkGUwr EIXohA5jHZxbAlZ3VGOrAnZmqH4 5qQUtKQltUx9lkOjuoLiaPW7zLP Erdfcfs310IlYzm3reIALh gJDyCGddVOY8G68jl5Y8ZHUjIVC rSEC2tXK4wZ1afWgwbopfkFMzoS qjkgXscPafQTuqGSsoO250 IHRvcDsnPlBhdGllbnQgTmFtZTo 9S1MvLop6VCJsyAxaMJ3kpXFfBV rdIj4vwEpofPfxPL7fLSYm ocbqy953ZnLpg4jxNNQlwBMuUGu mXMA8L85ex3B4IGAlPCUcOGK9hX X4pO8erPxdqhsicTSvoHjq cuKscJchPKmvOOqwD822GNQyxTf nJoYrwxZnDWMpkQJ2ZY25DB56mQ Fuh8P7cPW8C9PvXAZymwoh hnjjqXR0ACOoLWTqrT76Qh2whXz kZz1xNWNmFUV8EPSyqYKmO7JhpO 4qFuBrQYBmQSKhE7MwpYGz EBcnO382OJooQgC9HEZboxKhL9J fSGVguNdeShQ9b6F1Lf2QQ9V5YL 93OZ51gWYkq2Z9yWZ3P0Ei QJOlbfuunsiytPL5XQTmWESztI1 5Bx0vuIcjKb1yIYXwRHM4KKLjxB IpC6SufM4cLpCuVOSeGDGm Y8VogXQiYOgbH877BCzvHrD9YMP dndEeG2DrQSMgqSxiMhF4z8U0If 4KLZv2OT46CS94fZNki6X2 cZB5U4ZlHKHqqrqoktrabSZ9WSP kEIRjkA99Fs6hdNzcYk6xMFRqQI X1SNQyrRIfC8WhdR4pZlUn OCIuILSxA2YedVHrCBwuB843AWq gLlK7TFFnbvWxH0AhNNSpnOzlKt M2d3K5Wq6GOFIjYE86JHP4 mAS5OW16ZR68M9JdFnqrxSLkpXP +PHRhYmxlIHdpZHRoPScxMDAlJy TfuWwhEM7pYk4xIQEnRRKs oIoalQNcEvIsu5dsRRFlKZxdZN0 yxKsdX7PceUH8OHIfu5o2Rx04W6 1xF4DzqBN+DSIziNL2kCT3 nL3oLsXgJxG6GCiyA016AvMcqTL vIjncg2oyd7tmuPa4WnI3HYGucn NldZuuFPB2t2CeQt60F43t IHdpZHRoPSIxNSUiIHZhbGlnbj0 agB4dEa3+ZKWeeYR6cYN7mG7hGl LcJoJ2RQpdX501HwGisJQw Adqff6jxx1amnSt5XgQkLHPhqlK eqIqcQFS9d2AgYd93Y9QlsAilh9 GpFty6jn44jISii2W2oJE6 K2BeUHNpljjwtDTvgVlqKQ2gGOK wocvlADJjwD3zAXTcU8j2FkSqZx F0NWzrH3OvtpP0YKIoqCBi QQqqJMX6F05sg3P3NGDmBTLpIHG 1mQP3aV7rrLsggcdjnGLmbFqkbo JioRsqCNrjODemP126CIJl yFozLXAapV4wYYAjmBTnsPbtIS8 qJQVokjsuXeQMJz0OYVioFRBJWW tCCKB5R0MsQwk2MMUwiWgz YX0jhRLpKYsfAh9duKdfmTcfAQ2 pVGHdtpthUHAheJ9kWBWlxOObnY wfXP5rXVXtexaev982VzZr CJU7MUCgmOIbL9QguI0tKwHvZSD bVVReU4JxwAWmHPomR969YBzsJt B7CZMhihDcH1XrAWLkkAhx SgM8e8B0Sw9cHl8fXS9zXSTaFR3 0VN81oNBrf4L9kNL3U8PqEGLkay oyiikhdSK6MVNnQIGgeT97 kAQsVYizAh5nh1D7m237EAStCLM peC32Ve4ldXuzPSRlvPHAjD6hhm feq0otwpenLeYfEAFgOLx7 RSs4MTQlfMttFkCdSKR3EpL1DLV 6lFCkdT4nmFrlbgzlzU1zPwz+Nj BxKTNqhwT0K2FpIhh7PNVu uKykVX2wgPYqHCweGg6xmDqldZj bAB0dHIUwmcyvUJIqnF0kXBSmpK GzjTmtAC5cVPAuifeuu288 GnIgAJD6IJJdwUMbV5IggD6dSiN rVUKyINLoS1IssHEpPKtyM687YN ooUxG8UNVeejRhM9JxFBEa vGuiAdW8c6W9Us0CREjdGG39VB0 2xODzw5F5kVC3G0GfKPArcglkyl uaeKT8EFLjPWMjaQ08cQOe BUuaHe3ms4U3i756FGIjTNJftI9 0Ua8hhMknNMFssVOCsC2gparhg8 ckpfeyHmXeSBSdOCd4WKt0 KWPxwGocBcRpALD4KiF2DFN5sGE szN3tzCziblxjgU9rDus+UmVjdX ZprI5uKX35XG63K1InJzzs dGFibGU+PHRhYmxlIHdpZHRoPSc oQTYqExXsmCzmDS3qZh0vNJXgIF QwzBvicMPcJuBis6zdDJBg YIfwWO2nlDfoL4DjtMY4BUDuz8v 9An37K25kB2WwsHE+PSGmlVY0yI Y8mJ9tZnLuOqX8PKwbY081 VgTosREyOeavq3xfa4lhuGg4BeM vQGBruqLxiZphGAG8p7LiKv19C9 9sIHdpZHRoPSIyMCUiIHZh tTkowi8vgX7wSy6+UUFrkII1fIR 7lJ6rXvCbVeK4ZKkoM258LwKvdR XyMggiO46eL9CvkCI+PHRy Jql9MEVrdGimCI7ltPSeNIaxRd0 dWCC7ZqYjHgAeMUziZ2OcBCIirx cjbargyRW4SWAqMLKnyD98 Bk7inUpkLb8qOQXnAAU4PEWyyMB qR7XaeG0tWlAwBSYuRUBzV9VjpO NbUEeqS432HUmlRaH0QBPh qrVwC0DzEUCgnHkyDaJ9r2E8Nc7 OoOqzzJPjEQ9zWuTvGZl8Z2AfEo o3XSYirTueXF4ymGCxYSqf Xp2bwBitaHndPR1uYUPuvozbt62 2PqEtt7jpUGHfoFAiIBtdCUF6Z9 0nx6X2PNBpBEQqGHL4lYZ4 sB7phIasgkjkzMMubTedmzMzdJd xINgsXZpaZ620EHBwrZyuFjKZVa o2Q9XyMjc2EKJofKcyLY8o wFVqBNyxBd3jrHpatQpyPH4dLSR ovkape992KsRfp0ttDCPwnHSqJO hcVJU6Y49cl0V3GLXuTHDj LBU7hBV4gF0zoGgyulifyTPyjHh eiuMuqZylJSorTChzI320HTIudJ ntEb1PDuh0H2KhFup8CQOr xXtkNN8saSQnEZuuQt3muHpifCe kOE2oGJBjmlkbc274AaIfp7lbGE AjxXDdHIryFNU9R36lk0J2 YRXeIOOoWHS7eEO2qV7gxPmmsnh gbGVmdDsgdmVydGljYWwtYWxpZ2 46IHRvcDsnPlBheWVyOjwv dGQ+NJ22sg78F4SmXfqaGao5FWA cHWS2zDF0qD5pJZIdXGcgv6Q6tF F5L9YvkrXgyu4kj1rlRCBd ZTog (more content not included)... [facility] Consent for Treatmenton Consent for Treatment [id number]#1.00CD:[address] [facility] Physician Orderon 04-05-2021 Physician Order [id number]#1.00CD:[address] [facility] Rapid COVID Antigen ([facility])on 04-05-2021 Rapid COV Int NEG Ctl Pass Normal Fis [facility] Comment on above: Performed By: #### 2 [id number] #### [facility] [address] [place] [address] Rapid COV Int POS Ctl Pass Normal Fis [facility] Comment on above: Performed By: #### 2 [id number] #### [facility] [address] [place] [address] SARS-CoV+SARS-CoV-2 (COVID-19) Ag IA.rapid Ql (Resp) Not detected Normal Not Detected [facility] Comment on above: Result Comment: The [employer] Ver[employer]? System for Rapid Detection of SARS-CoV-2 is a chromatographic digital immunoassay intended for the direct and qualitative detection of SARS-CoV-2 nucleocapsid antigens in nasal swabs from individuals who are suspected of COVID-19 by their healthcare provider within the first five days of the onset of symptoms. Negative results should be treated as presumptive, do not rule out SARS-CoV-2 infection and should not be used as the sole basis for treatment or patient management decisions, including infection control decisions. Negative results should be considered in the context of a patient?s recent exposures, history and the presence of clinical signs and symptoms consistent with COVID-19, and confirmed with a molecular assay, if necessary, for patient management. For in vitro diagnostic use. In the [place], only for use under an Emergency Use Authorization. In the [place], this test has not been FDA cleared or approved; this test has been authorized by FDA under an EUA for use by authorized laboratories; use by laboratories certified under the CLIA, 42 U.S.C. ?263a, that meet requirements to perform moderate, high, or waived complexity tests and at the Point of Care (POC), i.e., in patient care settings operating under a CLIA Certificate of Waiver, Certificate of Compliance, or Certificate of Accreditation. This test has been authorized only for the detection of proteins from SARS-CoV-2, not for any other viruses or pathogens; and, in the [place], this test is only authorized for the duration of the declaration that circumstances exist justifying the authorization of emergency use of in vitro diagnostics for detection and/or diagnosis of the virus that causes COVID-19 under Section 564(b)(1) of the Act, 21 U.S.C. ? 360bbb-3(b)(1), unless the authorization is terminated or revoked sooner. Performed By: #### 2 [id number] #### [facility] [address] [place] [address] ADMITTED TO INTENSIVE CARE UNIT FOR CONDITION OF INTEREST:FIND:PT: Unknown Normal [facility] Comment on above: Performed By: #### 2 [id number] #### [facility] [address] [place] [address] EMPLOYED IN A HEALTHCARE SETTING:FIND:PT: Unknown Normal [facility] Comment on above: Performed By: #### 2 [id number] #### [facility] [address] [place] [address] FIRST TEST FOR CONDITION OF INTEREST:FIND:PT: Unknown Normal [facility] Comment on above: Performed By: #### 2 [id number] #### [facility] [address] [place] [address] HAS SYMPTOMS RELATED TO CONDITION OF INTEREST:FIND:PT: Unknown Normal [facility] Comment on above: Performed By: #### 2 [id number] #### [facility] [address] [place] [address] HOSPITALIZED FOR CONDITION OF INTEREST:FIND:PT: Unknown Normal [facility] Comment on above: Performed By: #### 2 [id number] #### [facility] [address] [place] [address] STATUS:FIND:PT: Unknown Normal [facility] Comment on above: Performed By: #### 2 [id number] #### [facility] [address] [place] [address] RESIDES IN A [facility] CARE SETTING:FIND:PT: Unknown Normal [facility] Comment on above: Performed By: #### 2 [id number] #### [facility] [address] [place] [address] BASIC MET PANELon 12-26-2017 Anion gap 3 molar conc 15 mmol/L Normal 6-18 [facility] Comment on above: Performed By: #### L 500.27574, L500.85080 ####Test performed at: [address] [address] Calcium mass conc 8.2 mg/dL Low 8.5-10.1 [facility] Comment on above: Performed By: #### L 500.64548, L500.92280 ####Test performed at: [address] [address] Chloride molar conc 106 mmol/L Normal 98-107 [facility] Comment on above: Performed By: #### L 500.36747, L500.62085 ####Test performed at: [address] [address] CO2 molar conc 22 mmol/L Normal 21-32 [facility] Comment on above: Performed By: #### L 500.46579, L500.09505 ####Test performed at: [address] [address] Creatinine mass conc 0.864 mg/dL Normal 0.700-1.300 [facility] Comment on above: Performed By: #### L 500.22952, L500.97245 ####Test performed at: [address] [address] Glucose mass conc 204 mg/dL High 74-106 [facility] Comment on above: Performed By: #### L 500.51871, L500.08943 ####Test performed at: [place] [address] [place], [place] [address] OSM 294 mosm/kg Normal 270-300 [facility] Comment on above: Performed By: #### L 500.69108, L500.22558 ####Test performed at: [place] [address] [place], [place] [address] Potassium molar conc 3.8 mmol/L Normal 3.5-5.1 [facility] Comment on above: Performed By: #### L 500.23399, L500.75860 ####Test performed at: [place] [id number] Sodium molar conc 139 mmol/L Normal 136-145 [facility] Comment on above: Performed By: #### L 500.76641, L500.51576 ####Test performed at: [place] [id number] Urea nitrogen mass conc 13 mg/dL Normal 7-18 [facility] Comment on above: Performed By: #### L 500.49475, L500.59342 ####Test performed at: [place] [address] CONSULTATION REPORTon 2017 CONSULTATION REPORT NAME: SOSA AGUILAR [facility]#: [id number]: Aleks Sharma, MDDATE OF CONSULTATION: 12/26/2017CONSULTATIONREBETI Billy FOR CONSULTATION: Urinary retention.BRIEF CLINICAL SUMMARY: A 57-year-old male who was admitted to this hospitalfor back surgery on 12/25/17. Procedure went well. The patient was unable tourinate after the catheter was removed and was reinserted, draining clearyellow urine.The patient denies previous episodes of urinary retention after surgery. Hedenies UTI, dysuria, hematuria, or urinary incontinence. He denied nocturia,slow stream, or history of STD. The patient also denies fecal incontinence ordifficulty with his bowel movements.PAST MEDICAL HISTORY: Remarkable for chronic back pain, osteoarthritis, andthe patient denies diabetes, stroke, significant coronary artery disease.SOCIAL HISTORY: The patient lives in the community with his . Formercigarette smoker. Drinks alcohol socially but not daily. Denies recreationaldrug use.PAST SURGICAL HISTORY: Includes orthopedic procedures.ALLERGIES TO MEDICATIONS: The patient denies.MEDICINES PRIOR TO ADMISSION: Reviewed MAR.FAMILY HISTORY: Noncontributory.REVIEW OF SYSTEMS:The patient denies sweats, chills, or weakness. The patient denies changes inhearing. The patient denies difficulty with his vision. The patient deniesdifficulty swallowing. The patient denied neck pain or stiffness. Thepatient denied cough, shortness of breath for wheezing. The patient deniedpalpitations, chest pain, or swelling in his extremities. The patient deniedweight loss, loss of appetite, nausea, vomiting, abdominal pain, diarrhea orconstipation. The patient denied urinary retention, hematuria, orincontinence prior to admission. Review of systems otherwise noncontributory.PHYSICAL EXAMINATION:GENERAL: Well-appearing middle-aged male who is awake, alert, oriented, in nodistress.[facility] PT NAME: JORDAN AGUILAR#: [id number] [place] [address] ACCT: [id number]: 58CONSULTATIONVITAL SIGNS: He is currently afebrile with temperature 36.4. Vital signsstable.HEENT: Head normal. Eyes clear, anicteric. Nose, no drainage. Ears, nodrainage.NECK: Nontender.LUNGS: Nonlabored breathing.HEART: Regular rate. No murmur.ABDOMEN: Normal bowel sounds. Soft, nondistended, nontender without palpablemasses and no inguinal hernia.BACK: Nontender. No CVA tenderness is noted. Bandage across lumbar spine isintact and dry.EXTREMITIES: Well developed. No joint swelling. Calf nontender.SKIN: Intact. No rashes.Results reviewed.ASSESSMENT: Urinary retention after surgery.PLAN:1. Start tamsulosin.2. Continue routine Burkett catheter.3. The patient can be discharged home and follow up as outpatient for atrial of voiding any day this week that he will arrange appointment. Ifhe remains in the hospital, I suggest repeat trial of voiding in the a.m.assuming he starts tamsulosin tonight. Then, I would recommend continuetamsulosin on a daily basis for 2 weeks and follow up in my office as anoutpatient.4. Thank you for allowing me to see this patient in consultation. KODY YEUNG/PATRICK/[id number] : 12/26/2017 17:36:21 CC: Aleks Sharma MDFax: E/S: Aleks Sharma MD12/30/17 0918Electronically [facility]igned[facility] NAME: SANDRA AGUILAR#: [id number] [place] [address] ACCT: [id number]: 59CONSULTATION Normal [facility] GFR ESTIMATEon 12-26-2017 IF AMER > 60 Normal > 60 [facility] Comment on above: Result Comment: eGFR (Estimated GFR) Units of measure:mL/min/1.73 meters sq.*CALCULATION REVISED 01/20/2015;IDMS-traceable MDRD equationeGFR is derived from the reexpressed MDRD Study equationusing the following parameters: serum creatinine, age,gender and race. An eGFR<60 mL/min/1.73m2 for >3 monthsis consistent with chronic kidney disease. Refer to KDOQIguidelines for clinical interpretation. Performed By: #### L 500.17414, L500.95395 ####Test performed at: [place] [address] IF non-AFR AMER > 60 Normal > 60 [facility] Comment on above: Performed By: #### L 500.47002, L500.93598 ####Test performed at: [place] [address] HGB AND HCTon 12-26-2017 Hematocrit Auto Volume Fraction (Bld) 31.8 % Low 39.0-55.0 [facility] Comment on above: Performed By: #### L 200.83202 ####Test performed at: [address] [address] Hemoglobin mass conc (Bld) 10.3 g/dL Low 14.0-16.5 [facility] Comment on above: Result Comment: Delt a: 12.6 on 12/19/17-1437PATIENT RECEIVED IV FLUIDS Performed By: #### L 200.96009 ####Test performed at: [place] [id number] OPERATIVE REPORTon 8 OPERATIVE REPORT NAME: SOSA AGUILAR [facility]#: [id number]: Aleks Jacobson, MDDATE OF SURGERY: 12/25/2017OPERATIVE REPORTPREOPERATIVE DIAGNOSIS: Recurrent herniation, right L5-S1.POSTOPERATIVE DIAGNOSIS: Recurrent herniation, right L5-S1.OPERATIVE PROCEDURE: Revision right L5-S1 laminotomy, foraminotomy,decompression with lysis of adhesions and revision diskectomy.DESCRIPTION OF PROCEDURE: After anesthesia, the patient was placed prone on aspine frame. Care was taken to avoid injury to the eyes, axilla, and themedian and ulnar nerves. The back was prepped and draped in usual fashion.The incision was planned using a needle and C-arm in AP and lateral planes. Alongitudinal incision was made in the old scar with sharp dissection ofsubcutaneous tissues. The fascia and paraspinal muscles were dissectedbluntly down to the right L5-S1 interspace and the tubular retractor wasinserted and x-ray confirmed position in AP and lateral planes. The right G0ofixgv was cleared of soft tissue and directly visualized. Undermagnification, the lamina and medial facet was thinned with a bur. Lysis ofadhesions was performed with straight and angled curettes. Revisionlaminotomy performed with Kerrison rongeurs. A partial medial facetectomy wasperformed with Kerrison rongeurs. Lysis of adhesions was then continuedcaudally along the medial facet with continued partial medial facetectomy.There was a significant amount of ligamentum left, which was densely adheredto the dura and we removed as much of it as we could after lysis of adhesions.The dissection was carried down to the S1 lamina. Lysis of adhesions againperformed with straight and curved curettes and laminotomy performed withKerrison rongeurs, removing the superior aspect of the S1 lamina. Afterthorough decompression and lysis of adhesions, lysis was continued and thedura was gently retracted toward the midline and the recurrent herniationdelineated and removed with pituitary rongeurs as lysis of adhesions wascontinued toward midline. We were able to remove the entire herniated portionof the disk. After completed decompression and removal of disk material, theepidural space was palpated with a Steen hook. The foramen was patent and itappeared that all compressive pathology had been removed. We attempted toenter the disk space. It was densely adhered and I did not feel that anyfurther material would come out with a dense adherence and therefore was leftalong. The wound was irrigated with saline Betadine solution. Vessels werecoagulated with the bipolar and then hemostasis achieved with FloSeal. Thetubular retractor was removed and bleeding coagulated. The paraspinal muscleswere injected with 0.5% Marcaine. A Silastic drain was left deep in the woundexiting through separate stab incision. The fascia, subcutaneous tissues, andST. [facility]: LAURENJORDAN#: [id number] [place] [address] ACCT: [id number]: 59OPERATIVE REPORTskin closed in the usual manner. Dressings were applied. The patient wasturned supine, awakened, taken to recovery room in excellent condition. Therewere no complications. TATUM DILLON/PATRICK/[id number] E/S: Aleks Jacobson MD01/04/18 1520Electronically SignedST. [facility]: JORDAN AGUILAR#: [id number] [place] [address] ACCT: [id number]: 59OPERATIVE REPORT Normal [facility] LUMBAR SPINE 2 OR 3 VIEWSon 12-22-2017 LUMBAR SPINE 2 OR 3 VIEWS Exam: Fluoroscopy lumbar spineClinical History: RIGHT L5 LAMINOTOMY, REVISION RIGHT L5 DISCECTOMYComparison: None.Findings: Intraoperative fluoroscopic images demonstrate surgicalinstruments posterior L5-S1.Impression:As aboveDictated: 12/26/17 0958REPORT SIGNATURE ON FILE12/26/17(0958) Reported By: SPENCER POTTSSigned By: SPENCER POTTS Normal [facility] BASIC MET PANELon 12-19-2017 Anion gap 3 molar conc 12 mmol/L Normal 09-18 [facility] Comment on above: Order Comment: CBN: YESCampus: MAIN Performed By: #### L 500.25787, L500.27775 ####Test performed at: [address] [address] Calcium mass conc 8.7 mg/dL Normal 8.5-10.1 [facility] Comment on above: Order Comment: CBN: YESCampus: MAIN Performed By: #### L 500.60366, L500.02699 ####Test performed at: [address] [address] Chloride molar conc 107 mmol/L Normal 98-107 [facility] Comment on above: Order Comment: CBN: YESCampus: MAIN Performed By: #### L 500.30131, L500.88362 ####Test performed at: [address] [address] CO2 molar conc 26 mmol/L Normal 21-32 [facility] Comment on above: Order Comment: CBN: YESCampus: MAIN Performed By: #### L 500.97280, L500.96097 ####Test performed at: [address] [address] Creatinine mass conc 0.747 mg/dL Normal 0.700-1.300 [facility] Comment on above: Order Comment: CBN: YESCampus: MAIN Performed By: #### L 500.15856, L500.64973 ####Test performed at: [place] [id number] Glucose mass conc 82 mg/dL Normal 74-106 [facility] Comment on above: Order Comment: CBN: YESCampus: MAIN Performed By: #### L 500.25218, L500.67229 ####Test performed at: [place] [id number] OSM 290 mosm/kg Normal 270-300 [facility] Comment on above: Order Comment: CBN: YESCampus: MAIN Performed By: #### L 500.38372, L500.34301 ####Test performed at: [address] [address] Potassium molar conc 4.2 mmol/L Normal 3.5-5.1 [facility] Comment on above: Order Comment: CBN: YESCampus: MAIN Performed By: #### L 500.97714, L500.77745 ####Test performed at: [address] [address] Sodium molar conc 141 mmol/L Normal 136-145 [facility] Comment on above: Order Comment: CBN: YESCampus: MAIN Performed By: #### L 500.20433, L500.85102 ####Test performed at: [address] [address] Urea nitrogen mass conc 9 mg/dL Normal 7-18 [facility] Comment on above: Order Comment: CBN: YESCampus: MAIN Performed By: #### L 500.42150, L500.79840 ####Test performed at: [address] [address] CBC W/DIFFon 12-19-2017 BASO ABS 0.0 K/uL Normal 0.0-0.2 [facility] Comment on above: Order Comment: CBN: YESCampus: MAIN Performed By: #### L 200.10352 ####Test performed at: [address] [address] Basophils/100 WBC Auto (Bld) 0.8 % Normal [facility] Comment on above: Order Comment: CBN: YESCampus: MAIN Performed By: #### L 200.59627 ####Test performed at: [address] [address] EOS ABS 0.1 K/uL Normal 0.0-0.5 [facility] Comment on above: Order Comment: CBN: YESCampus: MAIN Performed By: #### L 200.38920 ####Test performed at: [address] [address] Eosinophils/100 WBC Auto (Bld) 2.4 % Normal [facility] Comment on above: Order Comment: CBN: YESCampus: MAIN Performed By: #### L 200.72504 ####Test performed at: [address] [address] IG % 0.4 % Normal [facility] Comment on above: Order Comment: CBN: YESCampus: MAIN Performed By: #### L 200.96110 ####Test performed at: [address] [address] IG ABS 0.02 K/uL Normal 0-0.05 [facility] Comment on above: Order Comment: CBN: YESCampus: MAIN Performed By: #### L 200.61766 ####Test performed at: [address] [address] Lymphocytes Auto #/vol (Bld) 1.3 10*3/uL Normal 1.2-3.5 [facility] Comment on above: Order Comment: CBN: YESCampus: MAIN Performed By: #### L 200.95963 ####Test performed at: [address] [address] Lymphocytes/100 WBC Auto (Bld) 26.9 % Normal [facility] Comment on above: Order Comment: CBN: YESCampus: MAIN Performed By: #### L 200.73021 ####Test performed at: [address] [address] MONO ABS 0.3 K/uL Normal 0.0-1.0 [facility] Comment on above: Order Comment: CBN: YESCampus: MAIN Performed By: #### L 200.66938 ####Test performed at: [address] [address] Monocytes/100 WBC Auto (Bld) 6.9 % Normal [facility] Comment on above: Order Comment: CBN: YESCampus: MAIN Performed By: #### L 200.53839 ####Test performed at: [address] [address] NEUTROPHIL ABS 3.1 K/uL Normal 1.4-6.6 [facility] Comment on above: Order Comment: CBN: YESCampus: MAIN Performed By: #### L 200.34718 ####Test performed at: [address] [address] Neutrophils/100 WBC Auto (Bld) 62.6 % Normal [facility] Comment on above: Order Comment: CBN: YESCampus: MAIN Performed By: #### L 200.49348 ####Test performed at: [address] [address] Erythrocyte distribution width Auto Ratio (RBC) 14.6 % High 11.5-14.5 [facility] Comment on above: Order Comment: CBN: YESCampus: MAIN Performed By: #### L 200.43821 ####Test performed at: [address] [address] Hematocrit Auto Volume Fraction (Bld) 39.1 % Normal 39.0-55.0 [facility] Comment on above: Order Comment: CBN: YESCampus: MAIN Performed By: #### L 200.85240 ####Test performed at: [place] [address] Hemoglobin mass conc (Bld) 12.6 g/dL Low 14.0-16.5 [facility] Comment on above: Order Comment: CBN: YESCampus: MAIN Performed By: #### L 200.42766 ####Test performed at: [place] [id number] MCH Auto Entitic mass (RBC) 29.9 pg Normal 25.4-34.6 [facility] Comment on above: Order Comment: CBN: YESCampus: MAIN Performed By: #### L 200.92725 ####Test performed at: [address] [address] MCHC Auto mass conc (RBC) 32.2 g/dL Normal 31.5-36.5 [facility] Comment on above: Order Comment: CBN: YESCampus: MAIN Performed By: #### L 200.84521 ####Test performed at: [address] [address] MCV Auto Entitic volume (RBC) 92.9 fL Normal 80.0-100.0 [facility] Comment on above: Order Comment: CBN: YESCampus: MAIN Performed By: #### L 200.92302 ####Test performed at: [address], [place] [address] Nucleated RBC #/vol (Bld) 0.000 10*3/uL Normal 0-0.012 [facility] Comment on above: Order Comment: CBN: YESCampus: MAIN Performed By: #### L 200.58515 ####Test performed at: [address] [address] Nucleated RBC/100 WBC Ratio (Bld) 0.0 /100 WBC Normal 0-0.2 [facility] Comment on above: Order Comment: CBN: YESCampus: MAIN Performed By: #### L 200.27107 ####Test performed at: [address] [address] Platelet mean volume Auto Entitic volume (Bld) 10.4 fL Normal 8.7-12.4 [facility] Comment on above: Order Comment: CBN: YESCampus: MAIN Performed By: #### L 200.50750 ####Test performed at: [address] [address] Platelets Auto #/vol (Bld) 126 10*3/uL Low 140-440 [facility] Comment on above: Order Comment: CBN: YESCampus: MAIN Performed By: #### L 200.82782 ####Test performed at: [address] [address] RBC Auto #/vol (Bld) 4.21 10*6/uL Normal 3.5-5.5 [facility] Comment on above: Order Comment: CBN: YESCampus: MAIN Performed By: #### L 200.87573 ####Test performed at: [address] [address] WBC Auto #/vol (Bld) 4.9 10*3/uL Normal 3.9-11.0 [facility] Comment on above: Order Comment: CBN: YESCampus: MAIN Performed By: #### L 200.79452 ####Test performed at: [place] [address] CHEST PA/AP & LATERAL OR 2 V WSon 12-19-2017 CHEST PA/AP & LATERAL OR 2 VWS STUDY:CHEST PA/AP LATERAL OR 2 VWS; 12/19/2017 2:57 pmINDICATION:HISTOPLASMOSIS .COMPARISON:None. ERING CLINICIAN:Aleks Retana:CARDIOMEDIAST INAL SILHOUETTE:Cardiomediastina l silhouette is normal in size and configuration.LUNGS:Lungs are clear. Postsurgical changes in the right lung. Small leftpleural effusion.ABDOMEN:No remarkable upper abdominal findings.BONES:No acute osseous changes.IMPRESSION:Small left pleural effusion. Normal [facility] GFR ESTIMATEon 12-19-2017 IF AMER > 60 Normal > 60 [facility] Comment on above: Order Comment: CBN: YESCampus: MAIN Result Comment: eGFR (Estimated GFR) Units of measure:mL/min/1.73 meters sq.*CALCULATION REVISED 01/20/2015;IDMS-traceable MDRD equationeGFR is derived from the reexpressed MDRD Study equationusing the following parameters: serum creatinine, age,gender and race. An eGFR<60 mL/min/1.73m2 for >3 monthsis consistent with chronic kidney disease. Refer to KDOQIguidelencompass [facility] for clinical interpretation. Performed By: #### L 500.06744, L500.05463 ####Test performed at: [place] [address] IF non-AFR AMER > 60 Normal > 60 [facility] Comment on above: Order Comment: CBN: YESCampus: MAIN Performed By: #### L 500.88105, L500.22461 ####Test performed at: [place] [address] TSPATon 12-19-2017 BLOOD TYPE Positive Normal [facility] Comment on above: Order Comment: CBN: YESCampus: MAINTransfusion Status: CONSERVATIONBlood Bank service requested: TYPE AND SCREENSpecimen Comment: SURG 12/25 Performed By: #### B 100.0209 ####Test performed at: [place] [address] [place] [address] LUMB SP COMP W FLEX/EXT 6 VW Son 10-18-2017 LUMB SP COMP W FLEX/EXT 6 VWS STUDY:LUMB SP COMP W FLEX/EXT 6 VWS ; 10/18/2017 10:59 amINDICATION:. Back painCOMPARISON:None.ACCESSI ON NUMBER(S):[id number] ERING CLINICIAN:Lavell Mahoney:No fracture subluxation of the lumbar spine. The vertebral bodyheights are maintained. Mild multilevel degenerative disc height losswith scattered small endplate osteophytes. Lower lumbar predominantfacet arthropathy. No spondylolisthesis or spondylolysis. Noinstability on flexion or extension.Atherosclerosis is present.IMPRESSION:Degenera tive changes of the lumbar spine without instability. Normal [facility] LUMB SP COMP W FLEX/EXT 6 VW Son 09-19-2017 LUMB SP COMP W FLEX/EXT 6 VWS STUDY:LUMB SP COMP W FLEX/EXT 6 VWS ; 09/19/2017 12:46 pmINDICATION:. Back painCOMPARISON:None.ACCESSI ON NUMBER(S):[id number] ERING CLINICIAN:Lavell Mahoney:No lumbar spine fracture subluxation. Mild multilevel degenerativedisc height loss. No spondylolisthesis. No instability on flexion orextension. Lower lumbar facet arthropathy. No pars defects.Atherosclerosis is present.IMPRESSION:Mild degenerative changes of the lumbar spine without instability. Normal [facility] No Panel Information [facility] Vital Signs Date Time Vital Sign Value Performing Clinician Facility 12-09-2022 [id number] Body height 185.4 cm Jane Hernandez PA-C Work Phone: [facility] 12-09-2022 [id number] Body weight 91.17 kg Jane Hernandez PA-C Work Phone: [facility] 12-09-2022 13:31-0400 Diastolic blood pressure 76 mm[Hg] Jane Theodore PA-C Work Phone: [facility] 12-09-2022 13:31-0400 Heart rate 64 /min Jane David PA-C Work Phone: [facility] 12-09-2022 13:31-0400 Respiratory rate 16 /min Jane Theodore PA-C Work Phone: [facility] 12-09-2022 13:31-0400 SaO2% (BldA) [Mass fraction] 99 % Jane David PA-C Work Phone: [facility] 12-09-2022 13:31-0400 Systolic blood pressure 139 mm[Hg] Jane Theodore PA-C Work Phone: [facility] 11-01-2022 08:40-0400 Body height Tiffany Bucio Other [facility] Other 11-01-2022 08:40-0400 Body mass index (BMI) [Ratio] 25.25 kg/m2 Tiffany Bucio Other [facility] Other 11-01-2022 08:40-0400 Body weight 91.63 kg Tiffany Bucio Other [facility] Other 11-01-2022 08:40-0400 Diastolic blood pressure 70 mm[Hg] Tiffany Bucio Other [facility] Other 11-01-2022 08:40-0400 Systolic blood pressure 102 mm[Hg] Tiffany Bucio Other [facility] Other 08-04-2022 10:24-0400 Body height 185.4 cm Kulwinder Landry MD Work Phone: [facility] 08-04-2022 10:24-0400 Body temperature 98.01 [degF] Kulwinder Landry MD Work Phone: [facility] 08-04-2022 10:24-0400 Body weight 93.44 kg Kulwinder Landry MD Work Phone: [facility] 08-04-2022 10:24-0400 Diastolic blood pressure 67 mm[Hg] Kulwinder Landry MD Work Phone: [facility] 08-04-2022 10:24-0400 Heart rate 73 /min Kulwinder Landry MD Work Phone: [facility] 08-04-2022 10:24-0400 Systolic blood pressure 134 mm[Hg] Kulwinder Landry MD Work Phone: [facility] 08-03-2022 12:58-0400 Body height 188 cm Diane Vallecillo PROJECT SURVEYOR.INVESTIGATION [employer] Work Phone: [facility] 08-03-2022 12:58-0400 Body temperature 97.9 [degF] Diane Vallecillo PROJECT SURVEYOR.INVESTIGATION [employer]IEUTENANT Work Phone: [facility] 08-03-2022 12:58-0400 Body weight 96.16 kg Diane Vallecillo PROJECT SURVEYOR.INVESTIGATION [employer]UTENANT Work Phone: [facility] 08-03-2022 12:58-0400 Diastolic blood pressure 67 mm[Hg] Diane Vallecillo PROJECT SURVEYOR.INVESTIGATION [employer]ENANT Work Phone: [facility] 08-03-2022 12:58-0400 Heart rate 72 /min Diane Vallecillo PROJECT SURVEYOR.INVESTIGATION [employer]ENANT Work Phone: [facility] 08-03-2022 12:58-0400 Respiratory rate 18 /min Diane Vallecillo PROJECT SURVEYOR.INVESTIGATION [employer]IEUTENANT Work Phone: [facility] 08-03-2022 12:58-0400 SaO2% (BldA) [Mass fraction] 96 % Diane Vallecillo PROJECT SURVEYOR.INVESTIGATION [employer]IEUTENANT Work Phone: [facility] 08-03-2022 12:58-0400 Systolic blood pressure 140 mm[Hg] Diane Vallecillo PROJECT SURVEYOR.INVESTIGATION [employer]ENANT Work Phone: [facility] 07-11-2022 10:10-0400 Body weight 93.89 kg Sharon Castro MD Work Phone: [facility] 07-11-2022 10:10-0400 Diastolic blood pressure 66 mm[Hg] Sharon Castro MD Work Phone: [facility] 07-11-2022 10:10-0400 Heart rate 68 /min Sharon Castro MD Work Phone: [facility] 07-11-2022 10:10-0400 Systolic blood pressure 120 mm[Hg] Sharon Castro MD Work Phone: [facility] 06-15-2022 13:49-0400 Body height 188 cm Murali Jordan MD Work Phone: [facility] 06-15-2022 13:49-0400 Body temperature 97.39 [degF] Murali Jordan MD Work Phone: [facility] 06-15-2022 13:49-0400 Body weight 93.44 kg Murali Jordan MD Work Phone: [facility] 06-15-2022 13:49-0400 Diastolic blood pressure 56 mm[Hg] Murali Jordan MD Work Phone: [facility] 06-15-2022 13:49-0400 Heart rate 74 /min Murali Jordan MD Work Phone: [facility] 06-15-2022 13:49-0400 Respiratory rate 18 /min Murali Jordan MD Work Phone: [facility] 06-15-2022 13:49-0400 SaO2% (BldA) [Mass fraction] 97 % Murali Jordan MD Work Phone: [facility] 06-15-2022 13:49-0400 Systolic blood pressure 128 mm[Hg] Murali Jordan MD Work Phone: [facility] 05-31-2022 13:23-0500 Body weight 92.08 kg Faustina Leahy APRN.CNP Work Phone: [facility] 05-31-2022 13:23-0500 Diastolic blood pressure 56 mm[Hg] Faustina Leahy PROJECT SURVEYOR.INVESTIGATION [employer] Work Phone: [facility] 05-31-2022 13:23-0500 Heart rate 77 /min Faustina Leahy PROJECT SURVEYOR.INVESTIGATION [employer] Work Phone: [facility] 05-31-2022 13:23-0500 Respiratory rate 18 /min Faustina Leahy PROJECT SURVEYOR.INVESTIGATION [employer]ENANT Work Phone: [facility] 05-31-2022 13:23-0500 Systolic blood pressure 116 mm[Hg] Faustina Leahy PROJECT SURVEYOR.INVESTIGATION [employer]ENA[employer] Work Phone: [facility] 05-27-2022 11:53-0500 Diastolic blood pressure 59 mm[Hg] Sharon Castro MD Work Phone: [facility] 05-27-2022 11:53-0500 Heart rate 78 /min Sharon Castro MD Work Phone: [facility] 05-27-2022 11:53-0500 Respiratory rate 16 /min Sharon Castro MD Work Phone: [facility] 05-27-2022 11:53-0500 Systolic blood pressure 108 mm[Hg] Sharon Castro MD Work Phone: [facility] 05-25-2022 12:47-0500 Body height 186.7 cm Marlo Alvarado MD Work Phone: [facility] 05-25-2022 12:47-0500 Body temperature 98.91 [degF] Marlo Alvarado MD Work Phone: [facility] 05-25-2022 12:47-0500 Body weight 90.27 kg Marlo Alvarado MD Work Phone: [facility] 05-25-2022 12:47-0500 Diastolic blood pressure 57 mm[Hg] Marlo Alvarado MD Work Phone: [facility] 05-25-2022 12:47-0500 Heart rate 80 /min Marlo Alvarado MD Work Phone: [facility] 05-25-2022 12:47-0500 Respiratory rate 18 /min Marlo Alvarado MD Work Phone: [facility] 05-25-2022 12:47-0500 SaO2% (BldA) [Mass fraction] 99 % Marlo Alvarado MD Work Phone: [facility] 05-25-2022 12:47-0500 Systolic blood pressure 100 mm[Hg] Marlo Alvarado MD Work Phone: [facility] 05-18-2022 14:19-0500 Body height 186.7 cm Diane Vallecillo PROJECT SURVEYOR.INVESTIGATION [employer] Work Phone: [facility] 05-18-2022 14:19-0500 Body temperature 97 [degF] Diane Vallecillo PROJECT SURVEYOR.INVESTIGATION [employer] Work Phone: [facility] 05-18-2022 14:19-0500 Body weight 90.27 kg Diane Vallecillo PROJECT SURVEYOR.INVESTIGATION [employer] Work Phone: [facility] 05-18-2022 14:19-0500 Diastolic blood pressure 60 mm[Hg] Diane Vallecillo PROJECT SURVEYOR.INVESTIGATION [employer] Work Phone: [facility] 05-18-2022 14:19-0500 Heart rate 78 /min Diane Vallecillo PROJECT SURVEYOR.INVESTIGATION [employer] Work Phone: [facility] 05-18-2022 14:19-0500 Respiratory rate 18 /min Diane Vallecillo PROJECT SURVEYOR.INVESTIGATION [employer]NT Work Phone: [facility] 05-18-2022 14:19-0500 SaO2% (BldA) [Mass fraction] 99 % Diane Vallecillo PROJECT SURVEYOR.INVESTIGATION [employer] Work Phone: [facility] 05-18-2022 14:19-0500 Systolic blood pressure 100 mm[Hg] Diane Vallecillo PROJECT SURVEYOR.INVESTIGATION [employer]ENANT Work Phone: [facility] 04-22-2022 14:30-0500 Body temperature 97.4 [degF] MD Jordan Azar Work Phone: [facility] 04-22-2022 14:30-0500 Diastolic blood pressure 64 mm[Hg] MD Jordan Azar Work Phone: [facility] 04-22-2022 14:30-0500 Heart rate 69 /min MD Jordan Azar Work Phone: [facility] 04-22-2022 14:30-0500 Respiratory rate 18 /min MD Jordan Azar Work Phone: [facility] 04-22-2022 14:30-0500 SaO2% (BldA) [Mass fraction] 98 % MD Jordan Azar Work Phone: [facility] 04-22-2022 14:30-0500 Systolic blood pressure 108 mm[Hg] MD Jordan Azar Work Phone: [facility] 04-22-2022 12:10-0500 Body height 185.42 cm MD Jordan Azar Work Phone: [facility] 04-22-2022 12:10-0500 Body weight 102.05 kg MD Jordan Azar Work Phone: [facility] 04-15-2022 08:52-0500 Body temperature 96.91 [degF] Lakshmi Cr DO Work Phone: [facility] 04-15-2022 08:52-0500 Body weight 102.06 kg Lakshmi Cr DO Work Phone: [facility] 04-15-2022 08:52-0500 Diastolic blood pressure 81 mm[Hg] Lakshmi Cr DO Work Phone: [facility] 04-15-2022 08:52-0500 Heart rate 86 /min Lakshmi Cr DO Work Phone: [facility] 04-15-2022 08:52-0500 Respiratory rate 16 /min Lakshmi Cr DO Work Phone: [facility] 04-15-2022 08:52-0500 SaO2% (BldA) [Mass fraction] 98 % Lakshmi Ahmadiburn DO Work Phone: [facility] 04-15-2022 08:52-0500 Systolic blood pressure 146 mm[Hg] Lakshmi Ahmadiburn DO Work Phone: [facility] 04-13-2022 08:33-0500 Body height 185.4 cm Dayna Reyes MD Work Phone: [facility] 04-13-2022 08:33-0500 Body temperature 98.71 [degF] Dayna Reyes MD Work Phone: [facility] 04-13-2022 08:33-0500 Body weight 102.24 kg Dayna Reyes MD Work Phone: [facility] 04-13-2022 08:33-0500 Diastolic blood pressure 73 mm[Hg] Dayna Reyes MD Work Phone: [facility] 04-13-2022 08:33-0500 Heart rate 88 /min Dayna Reyes MD Work Phone: [facility] 04-13-2022 08:33-0500 SaO2% (BldA) [Mass fraction] 97 % Dayna Reyes MD Work Phone: [facility] 04-13-2022 08:33-0500 Systolic blood pressure 148 mm[Hg] Dayna Reyes MD Work Phone: [facility] 03-22-2022 09:46-0500 Body weight 94.12 kg Hep[facility] [address] 03-22-2022 09:30-0500 Diastolic blood pressure 69 mm[Hg] Hepatology Q3 [facility] 03-22-2022 09:30-0500 Heart rate 74 /min Hep[facility] [address] 03-22-2022 09:30-0500 SaO2% (BldA) [Mass fraction] 97 % [facility] [address] 03-22-2022 09:30-0500 Systolic blood pressure 121 mm[Hg] Hepatology Q3 [facility] 03-22-2022 09:20-0500 Respiratory rate 16 /min Hepatology Q3 [facility] 03-22-2022 08:55-0500 Body height 185.4 cm Hepatology Q3 [facility] 03-22-2022 08:55-0500 Body temperature 98.2 [degF] Hepatology Q3 [facility] 03-17-2022 13:50-0500 Body height 185.4 cm Kulwinder Landry MD Work Phone: [facility] 03-17-2022 13:50-0500 Body temperature 95.79 [degF] Kulwinder Landry MD Work Phone: [facility] 03-17-2022 13:50-0500 Body weight 100.25 kg Kulwinder Landry MD Work Phone: [facility] 03-17-2022 13:50-0500 Diastolic blood pressure 77 mm[Hg] Kulwinder Landry MD Work Phone: [facility] 03-17-2022 13:50-0500 Heart rate 80 /min Kulwinder Landry MD Work Phone: [facility] 03-17-2022 13:50-0500 Respiratory rate 12 /min Kulwinder Landry MD Work Phone: [facility] 03-17-2022 13:50-0500 Systolic blood pressure 141 mm[Hg] Kulwinder Landry MD Work Phone: [facility] 03-10-2022 10:45-0500 Body height 182.9 cm Kulwinder Landry MD Work Phone: [facility] 03-10-2022 10:45-0500 Body temperature 97 [degF] Kulwinder Landry MD Work Phone: [facility] 03-10-2022 10:45-0500 Body weight 96.62 kg Kulwinder Landry MD Work Phone: [facility] 03-10-2022 10:45-0500 Diastolic blood pressure 69 mm[Hg] Kulwinder Landry MD Work Phone: [facility] 03-10-2022 10:45-0500 Heart rate 90 /min Kulwinder Landry MD Work Phone: [facility] 03-10-2022 10:45-0500 Respiratory rate 12 /min Kulwinder Landry MD Work Phone: [facility] 03-10-2022 10:45-0500 Systolic blood pressure 134 mm[Hg] Kulwinder Landry MD Work Phone: [facility] 02-11-2022 12:56-0500 Body height 185.4 cm Lakshmi Cr DO Work Phone: [facility] 02-11-2022 12:56-0500 Body temperature 97.3 [degF] Lakshmi Cr DO Work Phone: [facility] 02-11-2022 12:56-0500 Body weight 102 kg Lakshmi Cr DO Work Phone: [facility] 02-11-2022 12:56-0500 Diastolic blood pressure 71 mm[Hg] Lakshmi Cr DO Work Phone: [facility] 02-11-2022 12:56-0500 Heart rate 76 /min Lakshmi Cr DO Work Phone: [facility] 02-11-2022 12:56-0500 Respiratory rate 18 /min Lakshmi Cr DO Work Phone: [facility] 02-11-2022 12:56-0500 SaO2% (BldA) [Mass fraction] 98 % Lakshmi Cr DO Work Phone: [facility] 02-11-2022 12:56-0500 Systolic blood pressure 123 mm[Hg] Lakshmi Cr DO Work Phone: [facility] 02-10-2022 14:06-0500 Body height 185.4 cm Pacc 6 Work Phone: [facility] 02-10-2022 14:06-0500 Body temperature 98.1 [degF] Pacc 6 Work Phone: [facility] 11-10-2022 14:06-0500 Body weight 102.42 kg Pacc 6 Work Phone: [facility] 02-10-2022 14:06-0500 Diastolic blood pressure 73 mm[Hg] Pacc 6 Work Phone: [facility] 02-10-2022 14:06-0500 Heart rate 70 /min Pacc 6 Work Phone: [facility] 02-10-2022 14:06-0500 Respiratory rate 18 /min Pacc 6 Work Phone: [facility] 02-10-2022 14:06-0500 SaO2% (BldA) [Mass fraction] 97 % Pacc 6 Work Phone: [facility] 02-10-2022 14:06-0500 Systolic blood pressure 126 mm[Hg] Pacc 6 Work Phone: [facility] 02-10-2022 12:39-0500 Body height 185.4 cm Kulwinder Landry MD Work Phone: [facility] 02-10-2022 12:39-0500 Body temperature 97.5 [degF] Kulwinder Landry MD Work Phone: [facility] 02-10-2022 12:39-0500 Body weight 99.34 kg Kulwinder Landry MD Work Phone: [facility] 02-10-2022 12:39-0500 Diastolic blood pressure 60 mm[Hg] Kulwinder Landry MD Work Phone: [facility] 02-10-2022 12:39-0500 Heart rate 73 /min Kulwinder Landry MD Work Phone: [facility] 02-10-2022 12:39-0500 Systolic blood pressure 128 mm[Hg] Kulwinder Landry MD Work Phone: [facility] 01-13-2022 09:34-0400 Body height 185.4 cm Lakshmi Cr DO Work Phone: [facility] 01-13-2022 09:34-0400 Body temperature 98.6 [degF] Lakshmi Cr DO Work Phone: [facility] 01-13-2022 09:34-0400 Body weight 97.52 kg Lakshmi Cr DO Work Phone: [facility] 01-13-2022 09:34-0400 Diastolic blood pressure 69 mm[Hg] Lakshmi Cr DO Work Phone: [facility] 01-13-2022 09:34-0400 Heart rate 73 /min Lakshmi Cr DO Work Phone: [facility] 01-13-2022 09:34-0400 Respiratory rate 18 /min Lakshmi Cr DO Work Phone: [facility] 01-13-2022 09:34-0400 SaO2% (BldA) [Mass fraction] 98 % Lakshmi Cr DO Work Phone: [facility] 01-13-2022 09:34-0400 Systolic blood pressure 130 mm[Hg] Lakshmi Cr DO Work Phone: [facility] 12-08-2021 13:05-0400 Body height 187 cm Ivette Mejia MD Work Phone: [facility] 12-08-2021 13:05-0400 Body temperature 98.1 [degF] Ivette Mejia MD Work Phone: [facility] 12-08-2021 13:05-0400 Body weight 95.71 kg Ivette Mejia MD Work Phone: [facility] 12-08-2021 13:05-0400 Diastolic blood pressure 76 mm[Hg] Ivette Mejia MD Work Phone: [facility] 12-08-2021 13:05-0400 Heart rate 77 /min Ivette Mejia MD Work Phone: [facility] 12-08-2021 13:05-0400 Respiratory rate 18 /min Ivette Mejia MD Work Phone: [facility] 12-08-2021 13:05-0400 SaO2% (BldA) [Mass fraction] 97 % Ivette Mejia MD Work Phone: [facility] 12-08-2021 13:05-0400 Systolic blood pressure 130 mm[Hg] Ivette Mejia MD Work Phone: [facility] 11-11-2021 09:20-0400 Body height 185.4 cm Pacc 2 Work Phone: [facility] 11-11-2021 09:20-0400 Body temperature 97.11 [degF] Pacc 2 Work Phone: [facility] 11-11-2021 09:20-0400 Body weight 98.43 kg Pacc 2 Work Phone: [facility] 11-11-2021 09:20-0400 Diastolic blood pressure 79 mm[Hg] Pacc 2 Work Phone: [facility] 11-11-2021 09:20-0400 Heart rate 74 /min Pacc 2 Work Phone: [facility] 11-11-2021 09:20-0400 Respiratory rate 16 /min Pacc 2 Work Phone: [facility] 11-11-2021 09:20-0400 SaO2% (BldA) [Mass fraction] 97 % Pacc 2 Work Phone: [facility] 11-11-2021 09:20-0400 Systolic blood pressure 104 mm[Hg] Pacc 2 Work Phone: [facility] 10-07-2021 13:27-0400 Body height 185.4 cm Kulwinder Landry MD Work Phone: [facility] 10-07-2021 13:27-0400 Body weight 100.7 kg Kulwinder Landry MD Work Phone: [facility] 10-07-2021 13:27-0400 Diastolic blood pressure 64 mm[Hg] Kulwinder Landry MD Work Phone: [facility] 10-07-2021 13:27-0400 Heart rate 66 /min Kulwinder Landry MD Work Phone: [facility] 10-07-2021 13:27-0400 Systolic blood pressure 107 mm[Hg] Kulwinder Landry MD Work Phone: [facility] 10-07-2021 10:25-0400 Body height 187.1 cm Lorna Frazier MD Work Phone: [facility] 10-07-2021 10:25-0400 Body weight 100.7 kg Lorna Frazier MD Work Phone: [facility] 10-07-2021 10:25-0400 Diastolic blood pressure 64 mm[Hg] Lorna Frazier MD Work Phone: [facility] 10-07-2021 10:25-0400 Heart rate 66 /min Lorna Frazier MD Work Phone: [facility] 10-07-2021 10:25-0400 Systolic blood pressure 107 mm[Hg] Lorna Frazier MD Work Phone: [facility] 09-17-2021 09:45-0400 Body height 185.4 cm Lucy Hymera PA-C Work Phone: [facility] 09-17-2021 09:45-0400 Body temperature 97.11 [degF] Lucy Monie PA-C Work Phone: [facility] 09-17-2021 09:45-0400 Body weight 104.51 kg Lucy Monie PA-C Work Phone: [facility] 09-17-2021 09:45-0400 Diastolic blood pressure 73 mm[Hg] Lucy Hymera PA-C Work Phone: [facility] 09-17-2021 09:45-0400 Heart rate 68 /min Lucy Hymera PA-C Work Phone: [facility] 09-17-2021 09:45-0400 SaO2% (BldA) [Mass fraction] 98 % Lucy Monie PA-C Work Phone: [facility] 09-17-2021 09:45-0400 Systolic blood pressure 136 mm[Hg] Lucy Lomax PA-C Work Phone: [facility] 07-07-2021 11:00-0400 Body height 185.4 cm Dayna Reyes MD Work Phone: [facility] 07-07-2021 11:00-0400 Body temperature 97 [degF] Dayna Reyes MD Work Phone: [facility] 07-07-2021 11:00-0400 Body weight 108.05 kg Dayna Reyes MD Work Phone: [facility] 07-07-2021 11:00-0400 Diastolic blood pressure 87 mm[Hg] Dayna Reyes MD Work Phone: [facility] 07-07-2021 11:00-0400 Heart rate 92 /min Dayna Reyes MD Work Phone: [facility] 07-07-2021 11:00-0400 SaO2% (BldA) [Mass fraction] 97 % Dayna Reyes MD Work Phone: [facility] 07-07-2021 11:00-0400 Systolic blood pressure 148 mm[Hg] Dayna Reyes MD Work Phone: [facility] Encounters Encounter Date Encounter Type Care Provider Facility Start: 11-18-2024 End: 11-18-2024 ambulatory JORDAN M NISSA Facility:[facility] Start: 10-22-2024 ambulatory Bonifacio Null Facility:[facility] Start: 10-21-2024 End: 10-21-2024 ambulatory JORDAN M NISSA Facility:[facility] Start: 09-27-2024 End: 09-27-2024 ambulatory JORDAN M NISSA Facility:[facility] Start: 09-13-2024 End: 11-13-2024 Follow-up encounter Kat Leal dental insurance coordinator [facility] Start: 09-13-2024 End: 09-13-2024 ambulatory JORDAN M NISSA Facility:[facility] Start: 08-23-2024 End: 10-23-2024 Follow-up encounter Kat Leal RN [facility] Start: 08-23-2024 End: 08-23-2024 ambulatory JORDAN AZAR Facility:[facility] Start: 08-12-2024 End: 10-12-2024 Follow-up encounter Francois German RN [facility] Start: 08-12-2024 End: 08-12-2024 ambulatory JORDAN Yolette AZAR Facility:[facility] Start: 07-15-2024 End: 09-14-2024 Follow-up encounter Francois German RN [facility] Start: 07-15-2024 End: 07-15-2024 ambulatory JORDAN Yolette AZAR Facility:[facility] Start: 06-17-2024 End: 08-17-2024 Follow-up encounter Kat Leal RN [facility] Start: 06-17-2024 End: 06-17-2024 ambulatory JORDAN Yolette Ben Facility:[facility] Start: 05-25-2024 End: 05-27-2024 Refill Rebecca Mascorro PROJECT SURVEYOR.INVESTIGATION [employer]ENANT Work Phone: [facility] Comment on above: Refill Request Start: 05-20-2024 End: 07-20-2024 Follow-up encounter Kat Leal RN [facility] Start: 05-20-2024 End: 05-20-2024 ambulatory JORDAN AZAR Facility:[facility] Start: 05-09-2024 End: 05-09-2024 Refill Diane Vallecillo PROJECT SURVEYOR.INVESTIGATION [employer]ENANT Work Phone: [facility] Comment on above: Refill Request Start: 04-22-2024 End: 04-22-2024 ambulatory JORDAN Yolette AZAR Facility:[facility] Start: 04-08-2024 End: 04-08-2024 Orders Only Kat Leal RN [facility] Comment on above: Liver replaced by tr ansplant (HCC) (Primary Dx) Start: 03-26-2024 End: 03-26-2024 Refill Kat Leal RN [facility] Comment on above: Results; Refill Requ est; Medication Dosage Adjustment (Decrease FK to 04/03) Start: 03-25-2024 End: 03-25-2024 ambulatory JORDAN AZAR Facility:[facility] Start: 03-12-2024 End: 03-12-2024 Refill Kat Leal RN [facility] Comment on above: Results; Refill Requ est; Medication Dosage Adjustment (Increase actigall to 3 times per day) Start: 03-11-2024 End: 03-11-2024 [facility] Yolette [facility] Facility:[facility] Start: 02-26-2024 End: 02-26-2024 [facility] Facility:[facility] Start: 02-13-2024 End: 02-20-2024 Chart abstracting Rebecca Mascorro APRN.INVESTIGATION [employer]IEUTENANT Work Phone: [facility] Comment on above: Pathology review Start: 02-12-2024 End: 02-12-2024 [facility] Yolette [facility] Facility:[facility] Start: 02-08-2024 End: 02-08-2024 Telephone encounter Kat Leal RN [facility] Comment on above: Results Start: 02-07-2024 End: 02-07-2024 Subsequent hospital visit by physician [facility] Comment on above: Elevated LFTs [R79.8 9] Start: 02-07-2024 End: 02-07-2024 [facility] Yolette Ben Facility:[facility] Start: 02-06-2024 End: 02-06-2024 Telephone encounter Jammie Cantu RN [facility] Comment on above: Abnormal Lab (Elevat ed lfts/) Results; Orders Biopsy Request (need s a STAT liver ultrasound and biopsy tomorrow.) Abnormal blood chemi stry (Primary Dx); Elevated LFTs Start: 02-05-2024 End: 02-05-2024 [facility] Yolette Ben Facility:[facility] Start: 01-30-2024 End: 01-30-2024 Telephone encounter Kat Leal RN [facility] Comment on above: Results Start: 01-29-2024 End: 01-29-2024 [facility] Yolette Ben Facility:[facility] Start: 01-16-2024 End: 01-16-2024 Refill Kat Leal RN [facility] Comment on above: Results; Refill Requ est; Medication Dosage Adjustment (Increase tacrolimus to 2/2) Start: 01-15-2024 End: 01-15-2024 ambulatory JORDAN AZAR Facility:[facility] Start: 01-01-2024 End: 01-01-2024 ambulatory JORDAN AZAR Facility:[facility] Start: 12-18-2023 End: 12-18-2023 ambulatory JORDAN AZAR Facility:[facility] Start: 12-05-2023 End: 12-05-2023 ambulatory JORDAN AZAR Facility:[facility] Start: 07-12-2023 Refill Kat Leal RN [facility] Comment on above: Refill Request Start: 05-25-2023 Refill Diane boyer APRN.CNP Work Phone: [facility] Comment on above: Refill Request Start: 05-25-2023 Refill Vandana (Pss) [facility] Start: 05-22-2023 Telephone encounter Liver Txp Coordinator Work Phone: [facility] Comment on above: Return Call Request Start: 05-11-2023 Refill Dayna Reyes MD Work Phone: Gastroenterology Comment on above: Refill Request Start: 02-01-2023 Orders Only Kat Leal RN [facility] Comment on above: Liver replaced by tr ansplant (HCC) (Primary Dx) Start: 01-26-2023 End: 01-26-2023 ambulatory MD Jordan Azar Work Phone: [facility] Work Phone: Start: 01-26-2023 End: 01-26-2023 Discharged Recurring MD Jordan Azar Work Phone: [facility]-Physical Therapy [facility] Work Phone: Start: 01-16-2023 End: 01-16-2023 Patient encounter procedure [facility] Work Phone: Laboratory Medicine Comment on above: Liver replaced by tr ansplant (HCC) Start: 01-09-2023 End: 01-09-2023 Patient encounter procedure [facility] Work Phone: [facility] Medicine Comment on above: Liver replaced by tr ansplant (HCC) Start: 12-09-2022 End: 12-09-2022 Patient encounter procedure Jane Hernandez PA-C Work Phone: [facility] [place] Comment on above: Acute left-sided low back pain with left-sided sciatica (Primary Dx); S/P lumbar laminectomy Start: 11-20-2022 Telephone encounter Francois German RN [facility] 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 Ideally we would like for it to be or Monday. Patient will not have a ride Monday. ) Start: 11-14-2022 Telephone encounter Kat Billy [facility] Comment on above: Results; Orders Start: 11-08-2022 Chart abstracting Dominic boyer MD Work Phone: Neurology Start: 11-07-2022 [address]ill Kat Leal RN [facility] Comment on above: Results; Refill Requ est; Medication Dosage Adjustment (Increase FK to 2/2) Start: 11-01-2022 End: 11-01-2022 ambulatory Tiffany Bucio Other [facility] [place] Other Start: 11-01-2022 Office outpatient ne w 30 minutes Tiffany Bucio [facility] Start: 10-31-2022 End: 10-31-2022 ambulatory Diane Vallecillo APRN.CNP Work Phone: Transplant Center Comment on above: Liver replaced by tr ansplant (HCC) (Primary Dx); Immunosuppressed status (HCC) Start: 10-31-2022 End: 10-31-2022 Telemedicine consultation with patient Diane Vallecillo APRN.CNP Work Phone: [facility] Start: 10-13-2022 Orders Only Jammie ([facility]) [facility] [place] Comment on above: Research subject (Pr imary Dx); Liver replaced by transplant (HCC) Start: 10-13-2022 Patient entered into trial Jammie ([facility]) [facility] Start: 10-07-2022 Refill Diane boyer APRN.INVESTIGATION LIEUTENANT Work Phone: Transplant Center Comment on above: Refill Request Start: 10-03-2022 End: 10-03-2022 [facility] Marilyn Mc Work Phone: Laboratory Medicine Comment on above: Liver replaced by tr ansplant (HCC) Start: 09-22-2022 Telephone encounter Liver Txp Coordinator Work Phone: Transplant Center Comment on above: Medication Question Start: 09-15-2022 Refill Kat Leal RN [facility] Comment on above: Results; Refill Requ est; Medication Dosage Adjustment (Decrease FK to 1.5/1.5) Start: 09-01-2022 Refill Kat Leal RN [facility] Comment on above: Results; Refill Requ est; Medication Dosage Adjustment (Increase FK to 2/2, start actigall) Start: 08-30-2022 End: 08-30-2022 [facility] Work Phone: Laboratory Medicine Comment on above: Liver replaced by tr ansplant (HCC) Start: 08-04-2022 End: 08-04-2022 Patient encounter procedure Kulwinder Landry MD Work Phone: General Surgery Comment on above: Unilateral inguinal hernia without obstruction or gangrene, recurrence not specified (Primary Dx) Start: 08-03-2022 End: 08-03-2022 Patient encounter procedure Diane Vallecillo APRN.INVESTIGATION LIEUTENANT Work Phone: Transplant Center Comment on above: Liver replaced by tr ansplant (HCC) (Primary Dx) Start: 08-01-2022 End: 08-01-2022 Subsequent hospital visit by physician Concepción bro Torres Work Phone: Radiology Comment on above: Unilateral inguinal hernia without obstruction or gangrene, recurrence not specified [K40.90] Start: 07-27-2022 Orders Only Kat Leal RN Trans plant Center Comment on above: Liver replaced by tr ansplant (HCC) (Primary Dx) Start: 07-15-2022 Telephone encounter Apolinar Wheeler MA General Surgery Comment on above: Clinic Prep Start: 07-13-2022 Orders Only Nanci Kamara PROJECT SURVEYOR.INVESTIGATION LIEUTENANT Work Phone: General Surgery Comment on above: Unilateral inguinal hernia without obstruction or gangrene, recurrence not specified (Primary Dx) Start: 07-11-2022 End: 07-11-2022 Patient encounter procedure Sharon Castro MD Work Phone: Urology Comment on above: Mass of right inguin al region (Primary Dx); Epididymal cyst Start: 07-04-2022 ambulatory Nay Brunson RDMS Radi ology Comment on above: Radiology US Start: 07-04-2022 Patient encounter procedure Nay Brunson RDMS [facility] Start: 07-04-2022 End: 07-04-2022 Subsequent hospital visit by physician [facility] Radiology Comment on above: Scrotal swelling [N5 0.89] Start: 06-27-2022 Refill Diane Ant s PROJECT SURVEYOR.INVESTIGATION LIEUTENANT Work Phone: Transplant Center Comment on above: Refill Request Start: 06-26-2022 Chart abstracting Sharon Madison Work Phone: Urology Start: 06-17-2022 Telephone encounter Kat Billy [facility] Comment on above: Follow Up Start: 06-15-2022 End: 06-15-2022 Patient encounter procedure Murali Jordan MD Work Phone: Transplant Center Comment on above: Status post liver tr ansplant (HCC) (Primary Dx); Need for prophylactic immunotherapy Start: 06-12-2022 Refill Diane Ant s PROJECT SURVEYOR.INVESTIGATION LIEUTENANT Work Phone: Transplant Center Comment on above: Refill Request Start: 06-11-2022 Telephone encounter Sharon Castro MD Work Phone: Urology Comment on above: Appointment Start: 06-10-2022 Orders Only Kat Leal RN [facility] Comment on above: Exposure to hepatiti s B (Primary Dx); Exposure to hepatitis C; Exposure to HIV Start: 06-08-2022 End: 06-09-[address] JORDAN AZAR . Facility: Start: 06-02-2022 Refill Kat Leal RN [facility] Comment on above: Results; Refill Requ est; Medication Dosage Adjustment (Decrease FK to 2/2) Start: 05-31-2022 End: 05-31-2022 Patient encounter procedure Faustina Leahy PROJECT SURVEYOR.INVESTIGATION LIEUTENANT Work Phone: Endocrinology Comment on above: Steroid-induced hype rglycemia (Primary Dx) Start: 05-27-2022 Telephone encounter Liver Txp Coordinator Work Phone: Transplant Center Comment on above: Medication Follow-up Start: 05-27-2022 End: 05-27-2022 Patient encounter procedure Sharon Castro MD Work Phone: Urology Comment on above: Scrotal swelling (Pr imary Dx); Liver transplant recipient (HCC) Start: 05-26-2022 End: 05-27-[address] JORDAN AZAR . 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 Start: 05-25-2022 Patient entered into trial [facility] Start: 05-23-2022 End: 05-23-2022 Patient encounter procedure [facility] Nome Mc Work Phone: Laboratory Medicine Comment on above: Liver replaced by tr ansplant (HCC) Start: 05-20-2022 Follow-up encounter Liver Txp Coordinator Work Phone: Transplant Center Comment on above: Medication Follow-up Start: 05-18-2022 End: 05-18-2022 Patient encounter procedure Diane Vallecillo INVESTIGATION LIEUTENANT Work Phone: Transplant Center Comment on above: Status post liver tr ansplant (HCC) (Primary Dx) Start: 05-16-2022 Orders Only Dayna Reyes MD Work Phone: Gastroenterology Comment on above: Hospital F/U Start: 05-13-2022 Orders Only Kat Leal RN Trans plant Center Comment on above: Liver replaced by tr ansplant (HCC) (Primary Dx) Start: 05-05-2022 Chart abstracting Re Childress RN Tr ansplant Center Comment on above: Transplant Serologie s Start: 05-02-2022 Telephone encounter Marilyn Simmons RN Transplant Center Comment on above: Organ Offer Start: 04-29-2022 End: 04-29-2022 Subsequent hospital visit by physician Ct 2 Main Qb (I-Stat) Radiology Comment on above: Cirrhosis of liver w ith ascites, unspecified hepatic cirrhosis type (HCC) [K74.60, R18.8] Start: 04-27-2022 Telephone encounter Zuleyka Jamison RN Transplant Center Comment on above: Follow Up Start: 04-22-2022 End: 04-22-2022 Admission to same day surgery center MD Jordan Azar Work Phone: [facility] Ctr-Ultrasound Main [place] Work Phone: Start: 04-22-2022 End: 04-22-2022 ambulatory MD Jordan Azar Work Phone: [facility] Ctr Work Phone: Start: 04-15-2022 End: 04-15-2022 Subsequent hospital visit by physician Us Main A21 2 Radiology Comment on above: Unilateral inguinal hernia without obstruction or gangrene, recurrence not specified [K40.90] Start: 04-15-2022 End: 04-15-2022 Patient encounter procedure Lakshmi Cr DO Work Phone: Pulmonary Medicine Comment on above: Liver cirrhosis seco ndary to [place] (nonalcoholic steatohepatitis) (HCC) (Primary Dx); Portal hypertension with esophageal varices (HCC); Liver transplant candidate; Unilateral inguinal hernia without obstruction or gangrene, recurrence not specified; Chronic obstructive pulmonary disease, unspecified COPD type (HCC) Start: 04-13-2022 Telephone encounter Cynthia Billy Gastroenterology Comment on above: Appointment Confirma tion Start: 04-13-2022 End: 04-13-2022 Patient encounter procedure Dayna Reyes MD Work Phone: Gastroenterology Comment on above: Cirrhosis of liver w ith ascites, unspecified hepatic cirrhosis type (HCC) (Primary Dx); Hepatic encephalopathy; Liver transplant candidate; 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); Thrombocytopenia (HCC); Other ascites; Portal hypertension with esophageal varices (HCC); History of colonic polyps; Vitamin D deficiency; Vitamin A deficiency; Unilateral inguinal hernia without obstruction or gangrene, recurrence not specified; Iron deficiency anemia, unspecified iron deficiency anemia type; Hydrocele, unspecified hydrocele type Start: 04-07-2022 Telephone encounter Dayna Reyes MD Work Phone: Gastroenterology Comment on above: Results Start: 04-01-2022 End: 04-01-2022 Subsequent hospital visit by physician [facility] Radiology Comment on above: Unilateral inguinal hernia without obstruction or gangrene, recurrence not specified [K40.90] Start: 03-22-2022 End: 03-22-2022 Orders Only Melody Alonso APRN.CNP Work Phone: Gastroenterology Comment on above: Other ascites (Prima ry Dx) Other ascites [R18.8 ] Start: 03-17-2022 End: 03-17-2022 Patient encounter procedure Kulwinder Landry MD Work Phone: General Surgery Comment on above: Unilateral inguinal hernia without obstruction or gangrene, recurrence not specified (Primary Dx) Cirrhosis of liver w ith ascites, unspecified hepatic cirrhosis type (HCC) (Primary Dx) Start: 03-10-2022 Telephone encounter Dayna Reyes MD Work Phone: Gastroenterology Comment on above: Results Start: 03-10-2022 End: 03-10-2022 Patient encounter procedure Kulwinder Landry MD Work Phone: General Surgery Comment on above: Unilateral inguinal hernia without obstruction or gangrene, recurrence not specified (Primary Dx) Start: 03-09-2022 Telephone encounter Dayna Reyes MD Work Phone: Gastroenterology Comment on above: Patient Update Start: 03-03-2022 Telephone encounter Dayna Reyes MD Work Phone: Gastroenterology Comment on above: Results Start: 03-02-2022 Telephone encounter Diana Quiroz RN Gastroenterology Comment on above: [employer] Start: 02-25-2022 Refill Dayna Reyes MD Work Phone: Gastroenterology Comment on above: Refill Request Start: 02-23-2022 ambulatory DAYNA REYES Facility:[facility] Start: 02-23-2022 End: 02-23-2022 Subsequent hospital visit by physician [facility] Work Phone: [facility] Radiology Ultrasound Comment on above: Liver cirrhosis seco ndary to [place] (HCC) [K75.81, K74.60] Start: 02-22-2022 Telephone encounter Dayna Reyes MD Work Phone: Gastroenterology Comment on above: Results Start: 02-11-2022 End: 02-14-2022 Orders Only Dayna Reyes MD Work Phone: Gastroenterology Comment on above: Vitamin D deficiency (Primary Dx); Cirrhosis of liver with ascites, unspecified hepatic cirrhosis type (HCC); Vitamin A deficiency; Hepatic encephalopathy Spirometry Preoperative examina tion (Primary Dx); Unilateral inguinal hernia without obstruction or gangrene, recurrence not specified; 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); Centrilobular emphysema (HCC) Start: 02-11-2022 End: 02-14-2022 Preprocedural examination done Lakshmi Cr DO Work Phone: Pulmonary Medicine Start: 02-10-2022 End: 02-10-2022 Admission to [facility] Pacc Main 6 Work Phone: [facility] Start: 02-10-2022 End: 02-10-2022 ambulatory Pacc Main 6 Work Phone: Pre Anesthesia Comment on above: Pre-operative examin ation (Primary Dx); Essential hypertension; Dyslipidemia; Coronary artery disease involving platinum coronary artery of platinum heart without angina pectoris; Chronic obstructive pulmonary disease, unspecified COPD type (HCC); Histoplasmosis; Cirrhosis of liver with ascites, unspecified hepatic cirrhosis type (HCC); Portal hypertension with esophageal varices (HCC); Thrombocytopenia (HCC) Start: 02-10-2022 End: 02-10-2022 Preprocedural examination done Pac Main 6 Work Phone: Pre Anesthesia Start: 02-10-2022 End: 02-10-2022 Patient encounter procedure Kulwinder Landry MD Work Phone: General Surgery Comment on above: Incisional hernia, w ithout obstruction or gangrene (Primary Dx) Start: 02-10-2022 End: 02-10-2022 Subsequent hospital visit by physician Main A21 1 Radiology Comment on above: Cirrhosis of liver w ith ascites, unspecified hepatic cirrhosis type (HCC) [K74.60, R18.8] Start: 01-20-2022 Orders Only Dayna Reyes MD Work Phone: Gastroenterology Start: 01-13-2022 End: 01-13-2022 Patient encounter procedure Lakshmi Cr DO Work Phone: Pulmonary Medicine Comment on above: Pneumonia of right l ower lobe due to infectious organism (Primary Dx); Chronic rhinitis Start: 01-10-2022 ambulatory Kulwinder Landry MD Work Phone: [facility] Comment on above: 12.2.22 cure (Right Inguinal hernia repair 2.5 hours los 1) Start: 01-10-2022 Preprocedural examination done Kulwinder Landry MD Work Phone: [facility] Start: 01-05-2022 Orders Only Dayna Reyes MD Work Phone: Gastroenterology Comment on above: Cirrhosis of liver w ith ascites, unspecified hepatic cirrhosis type (HCC) (Primary Dx) Start: 12-29-2021 End: 12-29-2021 Subsequent hospital visit by physician Ct 2 Main Qb (I-Stat) Radiology Comment on above: Lung nodules [R91.8] Start: 12-23-2021 Telephone encounter Zuleyka Jamison RN Transplant Center Comment on above: Orders Start: 12-22-2021 End: 12-22-2021 Subsequent hospital visit by physician Us Counts Include [facility] Beds [facility] [place] Ultrasound Comment on above: Other ascites [R18.8 ] Start: 12-20-2021 Orders Only Dayna Reyes MD Work Phone: Gastroenterology Comment on above: Other ascites (Prima ry Dx) Start: 12-08-2021 End: 12-08-2021 ambulatory Ivette Mejia MD Work Phone: Hematology/Oncology Comment on above: Thrombocytopenia (HC C); Cirrhosis of liver with ascites, unspecified hepatic cirrhosis type (HCC); Liver transplant candidate Start: 12-08-2021 End: 12-08-2021 Patient encounter procedure Ivette Mejia MD Work Phone: [facility] Start: 12-03-2021 End: 12-03-2021 Subsequent hospital visit by physician Main A21 6 Work Phone: Radiology Comment on above: Cirrhosis of liver w ith ascites, unspecified hepatic cirrhosis type (HCC) [K74.60, R18.8] Start: 12-01-2021 End: 12-01-2021 Nursing evaluation of patient and report Nurse Endo Main Endocrinology Comment on above: Age-related osteopor osis without current pathological fracture (Primary Dx) Arrived Start: 11-29-2021 Telephone encounter Dayna Reyes MD Work Phone: Gastroenterology Comment on above: Medication Problem Opened In Error Start: 11-23-2021 Telephone encounter Dayna Reyes MD Work Phone: [facility] Comment on above: Orders Start: 11-11-2021 End: 11-11-2021 Admission to [facility] Pac [place] 2 Work Phone: CCMETHODIST JENNIE EDMUNDSON Start: 11-11-2021 End: 11-11-2021 ambulatory [facility] [place] [facility] Work Phone: Pre Anesthesia Comment on above: Liver cirrhosis seco ndary to [place] (HCC) (Primary Dx); Preoperative examination; Unilateral inguinal hernia without obstruction or gangrene, recurrence not specified; Portal hypertensive gastropathy (HCC); Iron deficiency; Thrombocytopenia (HCC); Essential hypertension; Abdominal aortic aneurysm (AAA) without rupture (HCC); Other ascites; Portal hypertension with esophageal varices (HCC); Histoplasmosis Start: 11-11-2021 End: 11-11-2021 Preprocedural examination done [facility] [place] 2 Work Phone: Pre Anesthesia Start: 10-27-2021 End: 10-27-[address] JORDAN AZAR . Facility: Start: 10-18-2021 ambulatory Kulwinder Landry MD Work Phone: [facility] Comment on above: 8.17.22 cure (Right inguinal hernia repair 2.5 hours los 1) Start: 10-18-2021 Preprocedural examination done Kulwinder Landry MD Work Phone: [facility] Start: 10-18-2021 Telephone encounter Zuleyka Jamison RN Transplant Center Comment on above: Orders Start: 10-13-2021 Telephone encounter Dayna Reyes MD Work Phone: Gastroenterology Comment on above: Results Start: 10-08-2021 Refill Dayna Reyes MD Work Phone: Gastroenterology Comment on above: Refill Request Start: 10-07-2021 End: 10-07-2021 Patient encounter procedure Kulwinder Landry MD Work Phone: General Surgery Comment on above: Incisional hernia, w ithout obstruction or gangrene (Primary Dx) Start: 10-07-2021 Telephone encounter Lorna lerma MD Work Phone: Endocrinology Comment on above: Reclast Start: 10-07-2021 End: 10-07-2021 Patient encounter procedure Lorna Frazier MD Work Phone: Endocrinology Comment on above: Age-related osteopor osis without current pathological fracture (Primary Dx); Vitamin D deficiency; 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); Liver transplant candidate Start: 10-05-2021 ambulatory Tim Dennis MD Work Phone: Transplant Center Comment on above: Liver Disease Start: 09-20-2021 Chart abstracting Lucy Lomax PA-C Work Phone: Gastroenterology Start: 09-18-2021 Telephone encounter Dayna Reyes MD Work Phone: Gastroenterology Comment on above: Patient Update Start: 09-17-2021 End: 09-17-2021 Patient encounter procedure Lucy Lomax PA-C Work Phone: Gastroenterology Comment on above: Liver cirrhosis seco ndary to [place] (HCC) (Primary Dx); Other ascites; Liver transplant candidate; Portal hypertension with esophageal varices (HCC); Hepatic encephalopathy (HCC); History of colonic polyps; Vitamin D deficiency; Vitamin A deficiency Start: 09-13-2021 Telephone encounter Zuleyka Jamison RN Transplant Center Comment on above: UNOS MELD score upda te pt notiification Start: 09-13-2021 End: 09-13-2021 Patient encounter procedure Dobutamine Echo Card Main Work Phone: Cardiology Comment on above: Liver transplant can didate; [place] (nonalcoholic steatohepatitis) Start: 09-10-2021 Telephone encounter Lorna Bucio RN C ardiology Comment on above: Patient Education (D SE Instructions) Start: 08-10-2021 Refill Dayna Reyes MD Work Phone: [facility] Comment on above: Refill Request Start: 07-31-2021 Telephone encounter Dayna Reyes MD Work Phone: Gastroenterology Comment on above: Results Start: 07-19-2021 Telephone encounter Zuleyka Jamison RN Transplant Center Comment on above: Orders Start: 07-13-2021 Telephone encounter Dayna Reyes MD Work Phone: Gastroenterology Comment on above: Results Start: 07-13-2021 End: 07-13-2021 Subsequent hospital visit by physician Us Main A21 6 Work Phone: Radiology Comment on above: Cirrhosis of liver w ith ascites, unspecified hepatic cirrhosis type (HCC) [K74.60, R18.8] Start: 07-12-2021 Telephone encounter Dayna Reyes MD Work Phone: Gastroenterology Comment on above: Results Start: 07-07-2021 End: 07-08-2021 Patient encounter procedure Dayna Reyes MD Work Phone: Gastroenterology Comment on above: Liver cirrhosis seco ndary to [place] (HCC) (Primary Dx); Lung nodules; Other ascites; Vitamin A deficiency; Vitamin D deficiency; Liver transplant candidate; Portal hypertension with esophageal varices (HCC); Hepatic encephalopathy (HCC); History of colonic polyps; Iron deficiency anemia, unspecified iron deficiency anemia type; Portal hypertensive gastropathy (HCC); Sarcopenia; Osteopenia, unspecified location Start: 06-29-2021 Telephone encounter Dayna Reyes MD Work Phone: [facility] Comment on above: Orders Start: 06-29-2021 End: 06-29-2021 Subsequent hospital visit by physician Mri 6 Radio Main Q (I-Stat/1.5t/3t) Work Phone: MRI Q Comment on above: Liver cirrhosis seco ndary to [place] (HCC) [K75.81, K74.60] Start: 04-30-2021 End: 04-30-2021 Subsequent hospital visit by physician [facility] Radiology Ct Scan Comment on above: Unilateral inguinal hernia without obstruction or gangrene, recurrence not specified [K40.90] Start: 12-25-2017 End: 12-27-2017 Patient encounter Family Physician Unavailable Facility:[facility] Start: 12-25-2017 Patient encounter procedure Facility:[id number] Start: 12-19-2017 Patient encounter Aleks rendon:[facility] Start: 12-19-2017 Patient encounter procedure Facility:[id number] Start: 10-18-2017 Patient encounter Lavell garnett:[facility] Start: 10-18-2017 Patient encounter procedure Facility:[id number] Start: 09-19-2017 Patient encounter Lavell Nixon lity:[facility] Start: 09-19-2017 Patient encounter procedure Facility:[id number] Procedures Date Procedure Procedure Detail Performing Clinician Start: 08-23-2024 Lipid 1995 panel - S nahid or Plasma Francois German RN Start: 05-20-2024 Lipid 1995 panel - S nahid or Plasma Rebecca Mascorro PROJECT SURVEYOR.INVESTIGATION [employer]ENANT Work Phone: Start: 04-22-2024 Lipid 1995 panel - S nahid or Plasma Diane Vallecillo PROJECT SURVEYOR.INVESTIGATION [employer]ENANT Work Phone: Start: 02-07-2024 Dup-scan artl grey abdl/pel/scrot&/rpr orgn com Rebecca Mascorro PROJECT SURVEYOR.INVESTIGATION [employer]ENANT Work Phone: Start: 02-07-2024 US ABD LIVER VASCULAR J hollie Mascorro PROJECT SURVEYOR.INVESTIGATION [employer]ENANT Work Phone: Start: 09-11-2023 Lipid 1996 panel - S nahid or Plasma Kat Leal RN Start: 05-23-2023 Lipid 1996 panel - S nahid or Plasma Vandana Styles Start: 01-16-2023 Blood count complete auto&auto difrntl wbc Rebecca Mascorro PROJECT SURVEYOR.INVESTIGATION [employer]ENANT Work Phone: Start: 01-16-2023 Drug screen quantita tive tacrolimus Rebecca Mascorro PROJECT SURVEYOR.INVESTIGATION [employer]ENANT Work Phone: Start: 01-16-2023 Iadna cytomegaloviru s quantification Rebecca Mascorro PROJECT SURVEYOR.INVESTIGATION [employer]ENANT Work Phone: Start: 01-09-2023 Blood count complete auto&auto difrntl wbc Rebecca Mascorro PROJECT SURVEYOR.INVESTIGATION [employer]ENANT Work Phone: Start: 01-09-2023 Drug screen quantita tive tacrolimus Rebecca A Leo PROJECT SURVEYOR.INVESTIGATION [employer]ENANT Work Phone: Start: 01-09-2023 Iadna cytomegaloviru s quantification Rebecca A Leo PROJECT SURVEYOR.INVESTIGATION [employer]ENA[employer] Work Phone: Start: 11-17-2022 Dup-scan artl grey abdl/pel/scrot&/rpr orgn com Diane Daryl PROJECT SURVEYOR.INVESTIGATION [employer]ENANT Work Phone: Start: 11-17-2022 US ABD LIVER VASCULAR M mary Daryl PROJECT SURVEYOR.INVESTIGATION [employer]UTENANT Work Phone: Start: 11-14-2022 Lipid 1996 panel - S nahid or Plasma Lab Work Phone: Start: 10-03-2022 Blood count complete auto&auto difrntl wbc Rebecca Mascorro PROJECT SURVEYOR.INVESTIGATION [employer]ENA[employer] Work Phone: Start: 10-03-2022 Drug screen quantita tive tacrolimus Rebecca Mascorro PROJECT SURVEYOR.INVESTIGATION [employer] Work Phone: Start: 10-03-2022 Iadna cytomegaloviru s quantification Rebecca A Leo PROJECT SURVEYOR.INVESTIGATION [employer]ENA[employer] Work Phone: Start: 08-30-2022 Blood count complete auto&auto difrntl wbc Rebecca Mascorro PROJECT SURVEYOR.INVESTIGATION [employer]ENA[employer] Work Phone: Start: 08-30-2022 Drug screen quantita tive tacrolimus Rebecca Mascorro PROJECT SURVEYOR.INVESTIGATION [employer]ENANT Work Phone: Start: 08-30-2022 Iadna cytomegaloviru s quantification Rebecca A Leo PROJECT SURVEYOR.[employer] Work Phone: Start: 08-01-2022 Ct abdomen & pelvis w/o contrast material Nanci Kamara PROJECT SURVEYOR.[employer] Work Phone: Start: 07-04-2022 Dup-scan artl grey abdl/pel/scrot&/rpr orgn com Sharon Castro MD Work Phone: Start: 07-04-2022 Us scrotum & contents L sydni Castro MD Work Phone: Start: 05-31-2022 Hemoglobin A1c/Hemoglobin.total in Blood Faustina Leahy PROJECT SURVEYOR.[employer] Work Phone: Start: 05-26-2022 Blood count complete auto&auto difrntl wbc Rebecca A Leo PROJECT SURVEYOR.[employer] Work Phone: Start: 05-26-2022 Drug screen quantita tive tacrolimus Rebecca A Leo PROJECT SURVEYOR.[employer] Work Phone: Start: 05-23-2022 Blood count complete auto&auto difrntl wbc Rebecca A Leo PROJECT SURVEYOR.[employer] Work Phone: Start: 05-23-2022 Drug screen quantita tive tacrolimus Rebecca A Leo PROJECT SURVEYOR.[employer] Work Phone: Start: 05-23-2022 Iadna cytomegaloviru s quantification Rebecca A Leo PROJECT SURVEYOR.[employer] Work Phone: Start: 05-02-2022 H/O: liver recipient Liver tra nsplant recipient Kat Leal RN Start: 04-29-2022 Ct abdomen w/contras t material Dayna Reyes MD Work Phone: Start: 04-22-2022 Ultrasonography guid ed puncture and aspiration of abdomen MD Jordan Azar Work Phone: Start: 04-15-2022 Dup-scan artl grey abdl/pel/scrot&/rpr orgn com aDyna Reyes MD Work Phone: Start: 04-15-2022 Us scrotum & contents C nayana Reyes MD Work Phone: Start: 04-01-2022 Ct abdomen & pelvis w/o contrast material Kulwinder Landry MD Work Phone: Start: 03-22-2022 Abdom paracentesis d x/ther w/imaging guidance Dayna Reyes MD Work Phone: Start: 03-22-2022 Albumin serum plasma /whole blood Melody Alonso PROJECT SURVEYOR.[facility] Work Phone: Start: 03-22-2022 BF MANUAL DIFF Melody E Temple PROJECT SURVEYOR.[employer] Work Phone: Start: 03-22-2022 Cell count misc body fluids w/differential count Melody E Gavin PROJECT SURVEYOR.[employer] Work Phone: Start: 03-22-2022 Cul bact xcpt urine blood/stool aerobic isol Melody E Temple PROJECT SURVEYOR.[employer] Work Phone: Start: 03-22-2022 US PARACENTESIS (POC ) DDI USE ONLY Melody E Temple PROJECT SURVEYOR.[employer] Work Phone: Start: 02-23-2022 Us abdominal real ti me w/image limited Dayna Reyes MD Work Phone: Start: 02-11-2022 Brncdilat rspse spmt ry pre&post-brncdilat admn Lakshmi Cr DO Work Phone: Start: 02-10-2022 Us abdominal real ti me w/image limited Dayna Reyes MD Work Phone: Start: 12-29-2021 Ct thorax w/o contra st material Denise Cox MD Work Phone: Start: 12-22-2021 Us abdominal real ti me w/image limited Dayna Reyes MD Work Phone: Start: 12-03-2021 Dup-scan artl grey abdl/pel/scrot&/rpr orgn com Dayna Reyes MD Work Phone: Start: 12-03-2021 US ABD LIVER VASCULAR C nayana Reyes MD Work Phone: Start: 11-12-2021 Antibody screen Pacc 2 Work Phone: Start: 11-11-2021 Ecg routine ecg w/le ast 12 lds w/i&r [facility] Provider Start: 09-13-2021 Echo tthrc r-t 2d w/ wo m-mode complete rest&st Dayna Reyes MD Work Phone: Start: 09-13-2021 LVEF STRESS ECHO DOBUTAMINE Dayna Reyes MD Work Phone: Start: 07-13-2021 Dup-scan artl grey abdl/pel/scrot&/rpr orgn com Dayna Reyes MD Work Phone: Start: 07-13-2021 US ABD LIVER VASCULAR C hrshanel Reyes MD Work Phone: Start: 06-29-2021 MRI 3D POST PROCESSING Dayna Reyes MD Work Phone: Start: 06-29-2021 Mri abdomen w/o & w/contrast material Dayna Reyes MD Work Phone: Start: 05-17-2021 Adult depression scr eening assessment Dayna Reyes MD Work Phone: Start: 04-30-2021 Ct abdomen & pelvis w/o contrast material Shubham Cutler MD Work Phone: Start: 04-23-2020 Colonoscopy Dayna Reyes MD Work Phone: Start: 12-19-2017 Antibody screen Lavell whatley Comment on above: Order Comment: CBN: YESCampus: MAINTransfusion Status: CONSERVATIONBlood Bank service requested: TYPE AND SCREENSpecimen Comment: SURG 12/25 Performed By: #### B [id number] ####Test performed at: [place] [address] Start: 12-19-2017 Electrocardiogram Lavell Álvarez H/O: liver recipient Liver repla christos by transplant (HCC) Kat Leal RN H/O: liver recipient Status post liver transplant (HCC) Diane Vallecillo APRN.[employer] Work Phone: H/O: liver recipient Liver repla christos by transplant (HCC) Jammie ([facility]) Gracy H/O: liver recipient Liver trans plant recipient (HCC) Sharon Castro MD Work Phone: H/O: liver recipient Liver repla christos by transplant (HCC) Lab Work Phone: H/O: liver recipient Liver repla christos by transplant (HCC) Lab Work Phone: H/O: liver recipient Status post liver transplant (HCC) Murali Jordan MD Work Phone: H/O: liver recipient Liver repla christos by transplant (HCC) Kat Leal RN H/O: liver recipient Liver repla christos by transplant (HCC) Diane Vallecillo APRN.[employer] Work Phone: H/O: liver recipient Liver repla christos by transplant (HCC) Lab Work Phone: H/O: liver recipient Liver repla christos by transplant (HCC) Lab Work Phone: H/O: liver recipient Liver repla christos by transplant (HCC) Jammie ([facility]) Bilancini H/O: liver recipient Liver repla christos by transplant (HCC) Diane Vallecillo APRN.[employer] Work Phone: H/O: liver recipient Liver trans plant recipient (HCC) Us Melissa H/O: liver recipient Liver repla christos by transplant (HCC) Kat Leal RN H/O: liver recipient Liver repla christos by transplant (HCC) Us Qb1 H/O: liver recipient Liver repla christos by transplant (HCC) Lab Work Phone: H/O: liver recipient Liver repla christos by transplant (HCC) Lab Work Phone: H/O: liver recipient Liver repla christos by transplant (HCC) Kat Leal RN H/O: liver recipient Liver repla christos by transplant (HCC) Kat Leal RN Plan of Treatment Date Care Activity Detail Author Start: 09-09-2029 Urine microalbumin profile [facility] Start: 08-23-2029 Lipid panel Lipid Screening [facility] Start: 08-23-2029 Prostate specific antigen measurement Prostate Cancer Screening Discussion [facility] Start: 05-20-2029 Lipid panel Lipid Screening [facility] Start: 04-22-2029 Lipid panel Lipid Screening [facility] Start: 09-10-2028 Lipid panel Lipid Screening [facility] Start: 05-23-2028 Lipid panel Lipid Screening [facility] Start: 05-22-2028 Prostate specific antigen measurement Prostate Cancer Screening Discussion [facility] Start: 11-15-2027 Lipid 1996 panel - Serum or Plasma Lipid Screening [facility] Start: 11-15-2027 Lipid panel Lipid Screening [facility] Start: 11-15-2027 LIPID SCREEN LIPID SCREEN [facility] Start: 10-22-2027 Diabetes Screening Diabetes Screening [facility] Start: 09-28-2027 Diabetes Screening Diabetes Screening [facility] Start: 09-14-2027 Diabetes Screening Diabetes Screening [facility] Start: 08-13-2027 Diabetes Screening Diabetes Screening [facility] Start: 08-09-2027 LIPID SCREEN LIPID SCREEN [facility] Start: 07-16-2027 Diabetes Screening Diabetes Screening [facility] Start: 07-05-2027 LIPID SCREEN LIPID SCREEN [facility] Start: 05-20-2027 Diabetes Screening Diabetes Screening [facility] Start: 05-16-2027 LIPID SCREEN LIPID SCREEN [facility] Start: 04-29-2027 LIPID SCREEN LIPID SCREEN [facility] Start: 04-22-2027 Diabetes Screening Diabetes Screening [facility] Start: 04-08-2027 Diabetes Screening Diabetes Screening [facility] Start: 03-25-2027 Diabetes Screening Diabetes Screening [facility] Start: 03-11-2027 Diabetes Screening Diabetes Screening [facility] Start: 02-11-2027 Diabetes Screening Diabetes Screening [facility] Start: 02-04-2027 Diabetes Screening Diabetes Screening [facility] Start: 01-28-2027 Diabetes Screening Diabetes Screening [facility] Start: 01-14-2027 Diabetes Screening Diabetes Screening [facility] Start: 07-02-2026 Diabetes Screening Diabetes Screening [facility] Start: 05-23-2026 Diabetes Screening Diabetes Screening [facility] Start: 05-22-2026 Diabetes Screening Diabetes Screening [facility] Start: 05-08-2026 Diabetes Screening Diabetes Screening [facility] Start: 04-21-2026 PROSTATE CANCER SCREENING DISCUSSION PROSTATE CANCER SCREENING DISCUSSION [facility] Start: 04-21-2026 Prostate specific antigen measurement Prostate Cancer Screening Discussion [facility] Start: 01-30-2026 Diabetes Screening Diabetes Screening [facility] Start: 01-16-2026 Diabetes Screening Diabetes Screening [facility] Start: 01-09-2026 Diabetes Screening Diabetes Screening [facility] Start: 12-06-2025 DIABETES SCREEN DIABETES SCREEN [facility] Start: 11-14-2025 DIABETES SCREEN DIABETES SCREEN [facility] Start: 11-07-2025 DIABETES SCREEN DIABETES SCREEN [facility] Start: 10-31-2025 DIABETES SCREEN DIABETES SCREEN [facility] Start: 10-10-2025 DIABETES SCREEN DIABETES SCREEN [facility] Start: 10-03-2025 DIABETES SCREEN DIABETES SCREEN [facility] Start: 09-19-2025 DIABETES SCREEN DIABETES SCREEN [facility] Start: 09-12-2025 DIABETES SCREEN DIABETES SCREEN [facility] Start: 08-30-2025 DIABETES SCREEN DIABETES SCREEN [facility] Start: 08-23-2025 Hepatitis B surface antibody level LDL Cholesterol [facility] Start: 08-04-2025 DIABETES SCREEN DIABETES SCREEN [facility] Start: 08-01-2025 DIABETES SCREEN DIABETES SCREEN [facility] Start: 07-25-2025 DIABETES SCREEN DIABETES SCREEN [facility] Start: 07-14-2025 DIABETES SCREEN DIABETES SCREEN [facility] Start: 07-11-2025 DIABETES SCREEN DIABETES SCREEN [facility] Start: 07-04-2025 DIABETES SCREEN DIABETES SCREEN [facility] Start: 06-27-2025 DIABETES SCREEN DIABETES SCREEN [facility] Start: 06-23-2025 DIABETES SCREEN DIABETES SCREEN [facility] Start: 06-16-2025 DIABETES SCREEN DIABETES SCREEN [facility] Start: 06-13-2025 DIABETES SCREEN DIABETES SCREEN [facility] Start: 06-09-2025 DIABETES SCREEN DIABETES SCREEN [facility] Start: 06-06-2025 DIABETES SCREEN DIABETES SCREEN [facility] Start: 06-02-2025 DIABETES SCREEN DIABETES SCREEN [facility] Start: 05-31-2025 DIABETES SCREEN DIABETES SCREEN [facility] Start: 05-30-2025 DIABETES SCREEN DIABETES SCREEN [facility] Start: 05-26-2025 DIABETES SCREEN DIABETES SCREEN [facility] Start: 05-23-2025 DIABETES SCREEN DIABETES SCREEN [facility] Start: 05-20-2025 Hepatitis B surface antibody level LDL Cholesterol [facility] Start: 05-19-2025 DIABETES SCREEN DIABETES SCREEN [facility] Start: 05-16-2025 DIABETES SCREEN DIABETES SCREEN [facility] Start: 05-13-2025 DIABETES SCREEN DIABETES SCREEN [facility] Start: 05-05-2025 DIABETES SCREEN DIABETES SCREEN [facility] Start: 05-02-2025 DIABETES SCREEN DIABETES SCREEN [facility] Start: 04-29-2025 DIABETES SCREEN DIABETES SCREEN [facility] Start: 04-23-2025 Colonoscopy COLONOSCOPY [facility] Start: 04-23-2025 COLORECTAL CANCER SCREENING COLORECTAL CANCER SCREENING [facility] Start: 04-23-2025 Screening for malignant neoplasm of colon [facility] Start: 04-22-2025 Hepatitis B surface antibody level LDL Cholesterol [facility] Start: 04-13-2025 DIABETES SCREEN DIABETES SCREEN [facility] Start: 04-07-2025 DIABETES SCREEN DIABETES SCREEN [facility] Start: 03-17-2025 End: 03-17-2025 Patient encounter procedure 03/17/2025 7:45 AM EST Office Visit [facility] [address] [place] [address] lab [facility] Comment on above: lab Start: 03-10-2025 DIABETES SCREEN DIABETES SCREEN [facility] Start: 03-04-2025 DIABETES SCREEN DIABETES SCREEN [facility] Start: 03-02-2025 DIABETES SCREEN DIABETES SCREEN [facility] Start: 02-25-2025 DIABETES SCREEN DIABETES SCREEN [facility] Start: 02-21-2025 DIABETES SCREEN DIABETES SCREEN [facility] Start: 02-17-2025 End: 02-17-2025 Patient encounter procedure 02/17/2025 7:45 AM EST Office Visit [facility] [address] [place] [address] lab [facility] Comment on above: lab Start: 01-27-2025 DIABETES SCREEN DIABETES SCREEN [facility] Start: 01-20-2025 End: 01-20-2025 Patient encounter procedure 01/20/2025 7:45 AM EDT Office Visit [facility] [address] [place] [address] lab [facility] Comment on above: lab Start: 01-13-2025 DIABETES SCREEN DIABETES SCREEN [facility] Start: 01-04-2025 DIABETES SCREEN DIABETES SCREEN [facility] Start: 12-20-2024 DIABETES SCREEN DIABETES SCREEN [facility] Start: 12-16-2024 End: 12-16-2024 Patient encounter procedure 12/16/2024 7:45 AM EDT Office Visit [facility] [address] [place] [address] lab [facility] Comment on above: lab Start: 12-02-2024 Influenza vaccination [facility] Start: 12-01-2024 DIABETES SCREEN DIABETES SCREEN [facility] Start: 11-29-2024 DIABETES SCREEN DIABETES SCREEN [facility] Start: 11-26-2024 DIABETES SCREEN DIABETES SCREEN [facility] Start: 11-18-2024 End: 11-18-2024 Patient encounter procedure 11/18/2024 7:45 AM EDT Office Visit [facility] [address] [address] lab [facility] Comment on above: lab Start: 11-12-2024 DIABETES SCREEN DIABETES SCREEN [facility] Start: 11-11-2024 DIABETES SCREEN DIABETES SCREEN [facility] Start: 10-21-2024 End: 10-21-2024 Patient encounter procedure 10/21/2024 7:45 AM EDT Office Visit [facility] [address] [place] [address] lab [facility] Comment on above: lab Start: 10-07-2024 DIABETES SCREEN DIABETES SCREEN [facility] Start: 09-16-2024 End: 09-16-2024 Patient encounter procedure 09/16/2024 7:45 AM EDT Office Visit [facility] [address] [place] [address] lab [facility] Comment on above: lab Start: 09-13-2024 DIABETES SCREEN DIABETES SCREEN [facility] Start: 09-10-2024 Hepatitis B surface antibody level LDL Cholesterol [facility] Start: 08-13-2024 LIPID SCREEN LIPID SCREEN [facility] Start: 08-12-2024 DIABETES SCREEN DIABETES SCREEN [facility] Start: 08-12-2024 End: 08-12-2024 Patient encounter procedure 08/12/2024 7:45 AM EDT Office Visit [facility] [address] [place] [address] lab [facility] Comment on above: lab Start: 07-29-2024 DIABETES SCREEN DIABETES SCREEN [facility] Start: 07-15-2024 End: 07-15-2024 Patient encounter procedure 07/15/2024 7:45 AM EDT Office Visit [facility] [address] [place] [address] lab [facility] Comment on above: lab Start: 07-07-2024 DIABETES SCREEN DIABETES SCREEN [facility] Start: 07-01-2024 End: 07-01-2024 Patient encounter procedure 07/01/2024 7:45 AM EDT Office Visit [facility] [address] [place] [address] lab [facility] Comment on above: lab Start: 06-29-2024 DIABETES SCREEN DIABETES SCREEN [facility] Start: 06-17-2024 End: 06-17-2024 Patient encounter procedure 06/17/2024 7:45 AM EDT Office Visit [facility] [address] [place] [address] lab [facility] Comment on above: lab Start: 06-10-2024 DIABETES SCREEN DIABETES SCREEN [facility] Start: 06-03-2024 End: 06-03-2024 Patient encounter procedure 06/03/2024 7:45 AM EST Office Visit [facility] [address] [place] [address] lab [facility] Comment on above: lab Start: 2024 Advance Directive Discussion Advance Directive Discussion [facility] Start: 05-23-2024 Hepatitis B surface antibody level LDL Cholesterol [facility] Start: 05-20-2024 End: 05-20-2024 Patient encounter procedure 05/20/2024 7:45 AM EST Office Visit [facility] [address] [place] [address] lab [facility] Comment on above: lab Start: 05-06-2024 End: 05-06-2024 Patient encounter procedure 05/06/2024 8:00 AM EST Office Visit [facility] [address] [place] [address] lab [facility] Comment on above: lab Start: 04-22-2024 End: 04-22-2024 Patient encounter procedure 04/22/2024 8:15 AM EST Office Visit [facility] [address] [place] [address] lab [facility] Comment on above: lab Start: 04-08-2024 End: 04-08-2024 Patient encounter procedure 04/08/2024 9:00 AM EST Office Visit [facility] [address] [place] [address] lab [facility] Comment on above: lab Start: 04-03-2024 Medicare Advantage Annual Wellness Visit Medicare Advantage Annual Wellness Visit [facility] Start: 03-25-2024 End: 03-25-2024 Patient encounter procedure 03/25/2024 7:45 AM EST Office Visit [facility] [address] [place] [address] lab [facility] Comment on above: lab Start: 03-11-2024 End: 03-11-2024 Patient encounter procedure 03/11/2024 7:45 AM EST Office Visit [facility] [address] [place] [address] lab [facility] Comment on above: lab Start: 02-26-2024 End: 02-26-2024 Patient encounter procedure 02/26/2024 8:00 AM EST Office Visit [facility] [address] [place] [address] lab [facility] Comment on above: lab Start: 02-12-2024 End: 02-12-2024 Patient encounter procedure 02/12/2024 8:15 AM EST Office Visit [facility] [address] [place] [address] labs [facility] Comment on above: labs Start: 02-07-2024 End: 03-07-2025 US.doppler Abdominal vessels US ABD LIVER VASCULAR Radiology STAT Elevated LFTs Expected: 02/07/2024, Expires: 03/07/2025 [facility] Comment on above: Expected: 02/07/2024, Expires: Start: 02-07-2024 End: 03-07-2025 US.doppler Unspecified body region US DOPPLER COMPLETE Radiology STAT Elevated LFTs Expected: 02/07/2024, Expires: 03/07/2025 [facility] Comment on above: Expected: 02/07/2024, Expires: Start: 02-07-2024 End: 02-07-2024 Admission to same day surgery center 02/07/2024 11:00 AM EST - 02/07/2024 12:00 PM EST Surgery Angio [address] [place] [address] Britton Mack MD [address] [place] [address] PERCUTANEOUS NEEDLE BIOPSY OF LIVER Ang[facility] Comment on above: PERCUTANEOUS NEEDLE BIOPSY OF LIVER Start: 02-07-2024 End: 02-07-2024 Biopsy liver needle percutaneous PERCUTANEOUS NEEDLE BIOPSY OF LIVER Elevated LFTs 02/07/2024 11:00 AM EST [facility] Start: 02-07-2024 Subsequent hospital visit by physician 02/07/2024 11:00 AM EST Hospital Encounter Angio [address] [place] [address] Britton Mack MD [address] [place] [address] Elevated LFTs [R79.89] Angio Comment on above: Elevated LFTs [R79.89] Start: 02-07-2024 End: 02-07-2024 Patient encounter procedure 02/07/2024 8:30 AM EST Appointment Radiology [address] [address] 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 4] Start: 02-06-2024 End: 05-07-2024 PT panel - Platelet poor plasma by Coagulation assay PROTHROMBIN TIME Lab STAT At risk for bleeding Expected: 02/06/2024, Expires: 05/07/2024 [facility] Comment on above: Expected: 02/06/2024, Expires: Start: 02-05-2024 End: 02-05-2024 Patient encounter procedure 02/05/2024 7:45 AM EST Office Visit [facility] [address] [place] [address] lab [facility] Comment on above: lab Start: 01-29-2024 End: 01-29-2024 Patient encounter procedure 01/29/2024 7:45 AM EDT Office Visit [facility] [address] [place] [address] labs [facility] Comment on above: labs Start: 12-03-2023 Covid-19 Vaccine () Covid-19 Vaccine () [facility] Start: 12-03-2023 Influenza [facility] Start: 11-15-2023 Hepatitis B surface antibody level LDL CHOLESTEROL [facility] Start: 08-09-2023 Hepatitis B surface antibody level LDL CHOLESTEROL [facility] Start: 07-12-2023 BP CONTROLLED (<130/80) BP CONTROLLED (<130/80) [facility] Start: 07-05-2023 Hepatitis B surface antibody level LDL CHOLESTEROL [facility] Start: 06-16-2023 BP CONTROLLED (<130/80) BP CONTROLLED (<130/80) [facility] Start: 05-31-2023 BP CONTROLLED (<130/80) BP CONTROLLED (<130/80) [facility] Start: 05-27-2023 BP CONTROLLED (<130/80) BP CONTROLLED (<130/80) [facility] Start: 05-25-2023 BP CONTROLLED (<130/80) BP CONTROLLED (<130/80) [facility] Start: 05-18-2023 BP CONTROLLED (<130/80) BP CONTROLLED (<130/80) [facility] Start: 05-16-2023 Hepatitis B surface antibody level LDL CHOLESTEROL [facility] Start: 04-29-2023 Hepatitis B surface antibody level LDL CHOLESTEROL [facility] Start: 04-03-2023 Behavioral Health Screening Behavioral Health Screening [facility] Start: 04-03-2023 Depression Assessment Depression Assessment [facility] Start: 02-11-2023 BP CONTROLLED (<130/80) BP CONTROLLED (<130/80) [facility] Start: 02-10-2023 BP CONTROLLED (<130/80) BP CONTROLLED (<130/80) [facility] Start: 12-29-2022 Influenza vaccination LUNG CANCER SCREENING [facility] Start: 12-29-2022 Screening for malignant neoplasm of lung Lung Cancer Screening [facility] Start: 12-02-2022 Covid-19 Vaccine () Covid-19 Vaccine () [facility] Start: 12-02-2022 Influenza vaccination [facility] Start: 11-29-2022 BP CONTROLLED (<130/80) BP CONTROLLED (<130/80) [facility] Start: 11-17-2022 End: 12-14-2023 Dup-scan artl grey abdl/pel/scrot&/rpr orgn com US DOPPLER COMPLETE Radiology HUSSEIN Liver replaced by transplant (HCC) Expected: 11/17/2022, Expires: 12/14/2023 [facility] Work Phone: Comment on above: Expected: 11/17/2022, Expires: 4 Start: 11-17-2022 End: 12-14-2023 US ABD LIVER VASCULAR US ABD LIVER VASCULAR Radiology HUSSEIN Liver replaced by transplant (HCC) Expected: 11/17/2022, Expires: 12/14/2023 [facility] Work Phone: Comment on above: Expected: 11/17/2022, Expires: 4 Start: 11-11-2022 BP CONTROLLED (<130/80) BP CONTROLLED (<130/80) [facility] Start: 10-17-2022 End: 12-17-2022 PT panel - Platelet poor plasma by Coagulation assay PROTHROMBIN TIME/PT Lab Routine Research subject Liver replaced by transplant (HCC) Expected: 10/17/2022 (Approximate), Expires: 12/17/2022 [facility] Work Phone: Comment on above: Expected: 10/17/2022 (Approximate), Expi res: 12/17/2022 Start: 10-07-2022 BP CONTROLLED (<130/80) BP CONTROLLED (<130/80) [facility] Start: 07-27-2022 End: 09-26-2022 PHOSPHATIDYLETHANOL (PETH) [facility] Work Phone: Comment on above: Expected: 07/27/2022, Expires: 3 Start: 07-12-2022 End: 09-11-2022 25-hydroxyvitamin D3 [Mass/volume] in Serum or Plasma VITAMIN D 25 HYDROXY Lab Routine Vitamin D deficiency Expected: 07/12/2022, Expires: 09/11/2022 [facility] Work Phone: Comment on above: Expected: 07/12/2022, Expires: 3 Start: 06-25-2022 COVID-19 VACCINE (9 - Mixed Product risk series) COVID-19 VACCINE (9 - Mixed Product risk series) [facility] Start: 06-24-2022 End: 06-26-2023 Us scrotum & contents US SCROTUM AND CONTENTS Radiology Routine Scrotal swelling Liver transplant recipient (HCC) Expected: 06/24/2022 (Approximate), Expires: 06/26/2023 [facility] Work Phone: Comment on above: Expected: 06/24/2022 (Approximate), Expi res: 06/26/2023 Start: 06-13-2022 End: 08-13-2022 Hepatitis B virus DNA [Units/volume] in Serum HEP B VIRAL DNA ROD Lab Routine Exposure to hepatitis B Expected: 06/13/2022, Expires: 08/13/2022 [facility] Work Phone: Comment on above: Expected: 06/13/2022, Expires: 3 Start: 06-13-2022 End: 08-13-2022 Hepatitis C virus RNA [Units/volume] (viral load) in Serum or Plasma by JAIME with probe detection HCV QUANT RNA BY PCR Lab Routine Exposure to hepatitis C Expected: 06/13/2022, Expires: 08/13/2022 [facility] Work Phone: Comment on above: Expected: 06/13/2022, Expires: 3 Start: 06-13-2022 End: 08-13-2022 HIV 1 RNA [#/volume] (viral load) in Serum or Plasma by JAIME with probe detection HIV RNA VIRAL LOAD Lab Routine Exposure to HIV Expected: 06/13/2022, Expires: 08/13/2022 [facility] Work Phone: Comment on above: Expected: 06/13/2022, Expires: 3 Start: 05-30-2022 End: 07-30-2022 PT panel - Platelet poor plasma by Coagulation assay PROTHROMBIN TIME/PT Lab Routine Research study patient Liver replaced by transplant (HCC) Expected: 05/30/2022, Expires: 07/30/2022 [facility] Work Phone: Comment on above: Expected: 05/30/2022, Expires: 3 Start: 05-27-2022 End: 07-27-2022 [id number] [Mass/volume] in Serum or Plasma [facility] Work Phone: Comment on above: Expected: 05/27/2022, Expires: 3 Start: 05-27-2022 End: 07-27-2022 Choriogonadotropin.beta subunit [Units/volume] in Serum or Plasma [facility] Work Phone: Comment on above: Expected: 05/27/2022, Expires: 3 Start: 05-27-2022 End: 07-27-2022 Lactate dehydrogenase [Enzymatic activity/volume] in Serum or Plasma [facility] Work Phone: Comment on above: Expected: 05/27/2022, Expires: 3 Start: 05-17-2022 Adult depression screening assessment DEPRESSION SCREENING [facility] Start: 04-27-2022 End: 04-27-2023 LIVER REC HLA AB SCREEN LIVER REC HLA AB SCREEN ALLOGEN Routine 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) Expected: 04/27/2022, Expires: 04/27/2023 [facility] Work Phone: Comment on above: Expected: 04/27/2022, Expires: 4 Start: 04-22-2022 [facility] Start: 04-15-2022 BP CONTROLLED (<130/80) BP CONTROLLED (<130/80) [facility] Start: 04-13-2022 End: 06-13-2022 Ferritin [Mass/volume] in Serum or Plasma FERRITIN BLD Lab Routine Iron deficiency anemia, unspecified iron deficiency anemia type Expected: 04/13/2022, Expires: 06/13/2022 [facility] Work Phone: Comment on above: Expected: 04/13/2022, Expires: 3 Start: 04-13-2022 End: 06-13-2022 Iron and Iron binding capacity panel - Serum or Plasma IRON + TIBC Lab Routine Iron deficiency anemia, unspecified iron deficiency anemia type Expected: 04/13/2022, Expires: 06/13/2022 [facility] Work Phone: Comment on above: Expected: 04/13/2022, Expires: 3 Start: 04-13-2022 End: 06-13-2022 Lipid 1996 panel - Serum or Plasma LIPID PANEL BASIC Lab Routine Cirrhosis of liver with ascites, unspecified hepatic cirrhosis type (HCC) Expected: 04/13/2022, Expires: 06/13/2022 [facility] Work Phone: Comment on above: Expected: 04/13/2022, Expires: 3 Start: 04-13-2022 End: 06-13-2022 Thyrotropin [Units/volume] in Serum or Plasma TSH BLD Lab Routine Cirrhosis of liver with ascites, unspecified hepatic cirrhosis type (HCC) Expected: 04/13/2022, Expires: 06/13/2022 [facility] Work Phone: Comment on above: Expected: 04/13/2022, Expires: 3 Start: 04-03-2022 DEPRESSION ASSESSMENT DEPRESSION ASSESSMENT [facility] Start: 02-11-2022 End: 04-13-2022 Magnesium [Mass/volume] in Serum or Plasma MAGNESIUM BLD Lab Routine Cirrhosis of liver with ascites, unspecified hepatic cirrhosis type (HCC) Expected: 02/11/2022, Expires: 04/13/2022 [facility] Work Phone: Comment on above: Expected: 02/11/2022, Expires: 3 Start: 02-11-2022 End: 04-13-2022 Phosphate [Mass/volume] in Serum or Plasma PHOSPHORUS INORGANIC Lab Routine Cirrhosis of liver with ascites, unspecified hepatic cirrhosis type (HCC) Expected: 02/11/2022, Expires: 04/13/2022 [facility] Work Phone: Comment on above: Expected: 02/11/2022, Expires: 3 Start: 02-11-2022 End: 04-13-2022 Retinol [Mass/volume] in Serum or Plasma VITAMIN A/RETINOL Lab Routine Cirrhosis of liver with ascites, unspecified hepatic cirrhosis type (HCC) Vitamin A deficiency Expected: 02/11/2022, Expires: 04/13/2022 [facility] Work Phone: Comment on above: Expected: 02/11/2022, Expires: 3 Start: 02-11-2022 End: 04-13-2022 Zinc [Mass/volume] in Serum or Plasma ZINC BLD Lab Routine Cirrhosis of liver with ascites, unspecified hepatic cirrhosis type (HCC) Hepatic encephalopathy Expected: 02/11/2022, Expires: 04/13/2022 [facility] Work Phone: Comment on above: Expected: 02/11/2022, Expires: 3 Start: 01-27-2022 End: 02-12-2023 SPIROMETRY WITH DILATOR IF OBSTRUCTED SPIROMETRY WITH DILATOR IF OBSTRUCTED PFT Routine Chronic rhinitis Pneumonia of right lower lobe due to infectious organism Expected: 01/27/2022, Expires: 02/12/2023 [facility] Work Phone: Comment on above: Expected: 01/27/2022, Expires: 3 Start: 01-19-2022 End: 03-21-2022 aPTT in Platelet poor plasma by Coagulation assay ACTIVATED PTT Lab Routine Preoperative examination Unilateral inguinal hernia without obstruction or gangrene, recurrence not specified Expected: 01/19/2022, Expires: 03/21/2022 [facility] Work Phone: Comment on above: Expected: 01/19/2022, Expires: 2 Start: 01-19-2022 End: 03-21-2022 CBC W Auto Differential panel - Blood CBC + DIFF Lab Routine Preoperative examination Unilateral inguinal hernia without obstruction or gangrene, recurrence not specified Expected: 01/19/2022, Expires: 03/21/2022 [facility] Work Phone: Comment on above: Expected: 01/19/2022, Expires: 2 Start: 01-19-2022 End: 03-21-2022 PT panel - Platelet poor plasma by Coagulation assay PROTHROMBIN TIME/PT Lab Routine Preoperative examination Unilateral inguinal hernia without obstruction or gangrene, recurrence not specified Expected: 01/19/2022, Expires: 03/21/2022 [facility] Work Phone: Comment on above: Expected: 01/19/2022, Expires: 2 Start: 01-19-2022 End: 10-18-2022 SARS-CoV-2 (COVID-19) RNA [Presence] in Respiratory specimen by JAIME with probe detection PRE-PROCEDURE & PRE-OPERATIVE COVID Microbiology Routine Preoperative examination Unilateral inguinal hernia without obstruction or gangrene, recurrence not specified Expected: 01/19/2022, Expires: 10/18/2022 [facility] Work Phone: Comment on above: Expected: 01/19/2022, Expires: 3 Start: 01-19-2022 End: 03-21-2022 TYPE AND SCREEN,30 DAY TYPE AND SCREEN,30 DAY Blood Bank Routine Preoperative examination Unilateral inguinal hernia without obstruction or gangrene, recurrence not specified Expected: 01/19/2022, Expires: 03/21/2022 [facility] Work Phone: Comment on above: Expected: 01/19/2022, Expires: 2 Start: 01-10-2022 End: 01-10-2023 aPTT in Platelet poor plasma by Coagulation assay ACTIVATED PTT Lab Routine Preoperative examination Unilateral inguinal hernia without obstruction or gangrene, recurrence not specified Expected: 01/10/2022, Expires: 01/10/2023 [facility] Work Phone: Comment on above: Expected: 01/10/2022, Expires: 3 Start: 01-10-2022 End: 03-12-2022 CBC W Auto Differential panel - Blood CBC + DIFF Lab Routine Preoperative examination Unilateral inguinal hernia without obstruction or gangrene, recurrence not specified Expected: 01/10/2022 (Approximate), Expires: 03/12/2022 [facility] Work Phone: Comment on above: Expected: 01/10/2022 (Approximate), Expi res: 03/12/2022 Start: 01-10-2022 End: 01-10-2023 Comprehensive metabolic 2000 panel - Serum or Plasma COMP METABOLIC PANEL Lab Routine Preoperative examination Unilateral inguinal hernia without obstruction or gangrene, recurrence not specified Expected: 01/10/2022, Expires: 01/10/2023 [facility] Work Phone: Comment on above: Expected: 01/10/2022, Expires: 3 Start: 01-10-2022 End: 01-10-2023 PT panel - Platelet poor plasma by Coagulation assay PROTHROMBIN TIME/PT Lab Routine Preoperative examination Unilateral inguinal hernia without obstruction or gangrene, recurrence not specified Expected: 01/10/2022, Expires: 01/10/2023 [facility] Work Phone: Comment on above: Expected: 01/10/2022, Expires: 3 Start: 01-10-2022 End: 01-10-2023 TYPE AND SCREEN,30 DAY TYPE AND SCREEN,30 DAY Blood Bank Routine Preoperative examination Unilateral inguinal hernia without obstruction or gangrene, recurrence not specified Expected: 01/10/2022, Expires: 01/10/2023 [facility] Work Phone: Comment on above: Expected: 01/10/2022, Expires: 3 Start: 12-02-2021 Influenza vaccination INFLUENZA (#1) [facility] Start: 10-18-2021 End: 10-18-2022 LIVER REC HLA AB SCREEN LIVER REC HLA AB SCREEN ALLOGEN Routine 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) Expected: 10/18/2021, Expires: 10/18/2022 [facility] Work Phone: Comment on above: Expected: 10/18/2021, Expires: 3 Start: 10-10-2021 COVID-19 VACCINE (5 - Booster) COVID-19 VACCINE (5 - Booster) [facility] Start: 10-07-2021 End: 12-07-2021 Comprehensive metabolic 2000 panel - Serum or Plasma [facility] Work Phone: Comment on above: Expected: 10/07/2021, Expires: 2 Start: 07-17-2021 End: 09-16-2021 ZINC BLD ZINC BLD Lab Routine Hepatic encephalopathy (HCC) Expected: 07/17/2021, Expires: 09/16/2021 [facility] Work Phone: Comment on above: Expected: 07/17/2021, Expires: 2 Start: 06-18-2021 COVID-19 VACCINE (4 - Booster) COVID-19 VACCINE (4 - Booster) [facility] Start: 06-18-2021 Influenza vaccination LUNG CANCER SCREENING [facility] Start: 04-03-2021 DEPRESSION ASSESSMENT DEPRESSION ASSESSMENT [facility] Start: 09-09-2020 PNEUMOCOCCAL (2 - PPSV23 if available, else PCV20) PNEUMOCOCCAL (2 - PPSV23 if available, else PCV20) [facility] Start: 09-09-2020 PNEUMOCOCCAL (2 - PPSV23 or PCV20) PNEUMOCOCCAL (2 - PPSV23 or PCV20) [facility] Start: 08-13-2020 Hepatitis B surface antibody level LDL CHOLESTEROL [facility] Start: 11-05-2019 PNEUMOCOCCAL (2 - PPSV23 if available, else PCV20) PNEUMOCOCCAL (2 - PPSV23 if available, else PCV20) [facility] Start: 11-05-2019 PNEUMOCOCCAL (2 - PPSV23 or PCV20) PNEUMOCOCCAL (2 - PPSV23 or PCV20) [facility] Start: 11-05-2019 Pneumococcal vaccination [facility] Start: 11-05-2019 Pneumococcal Vaccine: 50+ (2 of 2 - PPSV23) Pneumococcal Vaccine: 50+ (2 of 2 - PPSV23) [facility] Start: 11-05-2019 Pneumococcal Vaccine: 50+ (2 of 2 - PPSV23, PCV20, or PCV21) Pneumococcal Vaccine: 50+ (2 of 2 - PPSV23, PCV20, or PCV21) [facility] Start: 2019 RSV Vaccine (1 - 1-dose 60+ series) RSV Vaccine (1 - 1-dose 60+ series) [facility] Start: 2019 RSV Vaccine (1 - Risk 60-74 years 1-dose series) RSV Vaccine (1 - Risk 60-74 years 1-dose series) [facility] Start: 2009 SHINGRIX VACCINE (1 of 2) SHINGRIX VACCINE (1 of 2) [facility] Start: 2004 COLOGUARD (FIT-DNA) COLOGUARD (FIT-DNA) [facility] Start: [address] COLONOGRAPHY [facility] Start: 2004 FECAL OCCULT BLOOD FECAL OCCULT BLOOD [facility] Start: 2004 Screening for malignant neoplasm of colon [facility] Start: 2004 SIGMOIDOSCOPY SIGMOIDOSCOPY [facility] Start: 1989 Zoledronic acid therapy ALPHA-1 ANTITRYPSIN DEFICIENCY SCREENING [facility] Start: 1978 SHINGRIX VACCINE (1 of 2) SHINGRIX VACCINE (1 of 2) [facility] Start: 1978 TWO PNEUMOVAX 5 YEARS APART PRIOR TO AGE 65 (#1) TWO PNEUMOVAX 5 YEARS APART PRIOR TO AGE 65 (#1) [facility] Start: 1977 ANNUAL PCP TEAM CHRONIC DISEASE VISIT ANNUAL PCP TEAM CHRONIC DISEASE VISIT [facility] Start: 1977 Anxiety Screening Anxiety Screening [facility] Start: 1977 BP CONTROLLED (<130/80) BP CONTROLLED (<130/80) [facility] in Start: 1977 Depression Screening Depression Screening [facility] Start: 1959 Abdominal aortic aneurysm screening Abdominal Aortic Aneurysm Screening [facility] Start: 1959 Dental Oral Exam Dental Oral Exam [facility] Start: 1959 Dental Perio Probing Dental Perio Probing [facility] Start: 1959 Dental Prophylaxis Dental Prophylaxis [facility] Start: 1959 Dental X-Ray: Bitewings Dental X-Ray: Bitewings [facility] Start: 1959 Dental X-Ray: FMX/Kessler Dental X-Ray: FMX/Kessler [facility] Start: 1959 Periodontal Maintenance Periodontal Maintenance [facility] End: 02-11-2023 25-hydroxyvitamin D3 [Mass/volume] in Serum or Plasma VITAMIN D 25 HYDROXY Lab Routine Cirrhosis of liver with ascites, unspecified hepatic cirrhosis type (HCC) Vitamin D deficiency Every 3 months for 4 Occurrences starting 02/11/2022 until 02/11/2023 [facility] Work Phone: Comment on above: Every 3 months for 4 Occurrences startin g 02/11/2022 until 02/11/2023 End: 06-29-2022 Abdom paracentesis dx/ther w/imaging guidance ABDOM PARACENTESIS DX/THER W IMAGING GUIDANCE Endoscopy Routine Other ascites Once per week for 52 Occurrences starting 06/29/2021 until 06/29/2022 [facility] Work Phone: Comment on above: Once per week for 52 Occurrences startin g 06/29/2021 until 06/29/2022 Abdom paracentesis d x/ther w/imaging guidance IMAGING GUIDED PARACENTESIS Radiology Routine Unilateral inguinal hernia without obstruction or gangrene, recurrence not specified Ordered: 03/17/2022 [facility] Work Phone: Comment on above: Ordered: 03/17/2022 End: 03-17-2023 Abdom paracentesis dx/ther w/imaging guidance ABDOM PARACENTESIS DX/THER W IMAGING GUIDANCE Endoscopy Routine Cirrhosis of liver with ascites, unspecified hepatic cirrhosis type (HCC) Once per week for 52 Occurrences starting 03/17/2022 until 03/17/2023 [facility] Work Phone: Comment on above: Once per week for 52 Occurrences startin g 03/17/2022 until 03/17/2023 ALLOGEN HLA-AB SUM RPT ALLOGEN H LA-AB SUM RPT Lab Routine 04/29/2022 9:46 AM [facility] End: 02-11-2023 [id number] [Mass/volume] in Serum or Plasma ALPHA FETOPROTEIN BL Lab Routine Cirrhosis of liver with ascites, unspecified hepatic cirrhosis type (HCC) Every 6 months for 2 Occurrences starting 02/11/2022 until 02/11/2023 [facility] Work Phone: Comment on above: Every 6 months for 2 Occurrences startin g 02/11/2022 until 02/11/2023 Bacteria identified in Body fluid by Culture BODY FLUID CULTURE AND GRAM STAIN Microbiology Routine Other ascites Cirrhosis of liver with ascites, unspecified hepatic cirrhosis type (HCC) 03/22/2022 9:12 AM [facility] Work Phone: Bacteria identified in Unspecified specimen by Anaerobe culture [facility] Work Phone: Comment on above: Release Upon Ordering for 1 Occurrences starting 03/22/2022 End: 02-11-2023 Basic metabolic 2000 panel - Serum or Plasma BASIC METABOLIC PNL Lab Routine Cirrhosis of liver with ascites, unspecified hepatic cirrhosis type (HCC) Once per week for 52 Occurrences starting 02/11/2022 until 02/11/2023 [facility] Work Phone: Comment on above: Once per week for 52 Occurrences startin g 02/11/2022 until 02/11/2023 Biopsy liver needle percutaneous IMAGING GUIDED BIOPSY LIVER Radiology HUSSEIN Liver replaced by transplant (HCC) Ordered: 11/15/2022 [facility] Work Phone: Comment on above: Ordered: 11/15/2022 End: 02-11-2023 CBC W Auto Differential panel - Blood CBC + DIFF Lab Routine Cirrhosis of liver with ascites, unspecified hepatic cirrhosis type (HCC) Once per week for 52 Occurrences starting 02/11/2022 until 02/11/2023 [facility] Work Phone: Comment on above: Once per week for 52 Occurrences startin g 02/11/2022 until 02/11/2023 End: 05-13-2023 CBC W Auto Differential panel - Blood CBC + DIFF Lab Routine Liver replaced by transplant (HCC) 2x per week for 100 Occurrences starting 05/13/2022 until 05/13/2023 [facility] Work Phone: Comment on above: 2x per week for 100 Occurrences starting 05/13/2022 until 05/13/2023 End: 04-08-2025 CBC W Auto Differential panel - Blood COMPLETE BLOOD COUNT AND DIFFERENTIAL Lab Routine Liver replaced by transplant (HCC) Every other week for 50 Occurrences starting 04/08/2024 until 04/08/2025 [facility] Work Phone: Comment on above: Every other week for 50 Occurrences star ting 04/08/2024 until 04/08/2025 End: 05-13-2023 CMV DNA DETECTION AND QUANT CMV DNA DETECTION AND QUANT Lab Routine Liver replaced by transplant (HCC) Once per week for 50 Occurrences starting 05/13/2022 until 05/13/2023 [facility] Work Phone: Comment on above: Once per week for 50 Occurrences startin g 05/13/2022 until 05/13/2023 End: 05-13-2023 Comprehensive metabolic 2000 panel - Serum or Plasma COMP METABOLIC PANEL Lab Routine Liver replaced by transplant (HCC) 2x per week for 100 Occurrences starting 05/13/2022 until 05/13/2023 [facility] Work Phone: Comment on above: 2x per week for 100 Occurrences starting 05/13/2022 until 05/13/2023 End: 04-08-2025 Comprehensive metabolic 2000 panel - Serum or Plasma COMPREHENSIVE METABOLIC PANEL Lab Routine Liver replaced by transplant (HCC) Every other week for 50 Occurrences starting 04/08/2024 until 04/08/2025 [facility] Comment on above: Every other week for 50 Occurrences star ting 04/08/2024 until 04/08/2025 End: 04-17-2023 Ct abdomen & pelvis w/o contrast material CT ABD/PEL WO IVCON Radiology Routine Unilateral inguinal hernia without obstruction or gangrene, recurrence not specified 1 Occurrences starting 03/17/2022 until 04/17/2023 [facility] Work Phone: Comment on above: 1 Occurrences starting 03/17/2022 until 04/17/2023 End: 08-12-2023 Ct abdomen & pelvis w/o contrast material CT ABD/PEL WO IVCON Radiology Routine Unilateral inguinal hernia without obstruction or gangrene, recurrence not specified 1 Occurrences starting 07/13/2022 until 08/12/2023 [facility] Work Phone: Comment on above: 1 Occurrences starting 07/13/2022 until 08/12/2023 End: 05-13-2023 Ct abdomen w/contrast material CT LIVER W IVCON Radiology Routine Cirrhosis of liver with ascites, unspecified hepatic cirrhosis type (HCC) 1 Occurrences starting 04/13/2022 until 05/13/2023 [facility] Work Phone: Comment on above: 1 Occurrences starting 04/13/2022 until 05/13/2023 End: 08-06-2022 Ct thorax w/o contrast material CT CHEST WO IVCON Radiology Routine Lung nodules 1 Occurrences starting 07/07/2021 until 08/06/2022 [facility] Work Phone: Comment on above: 1 Occurrences starting 07/07/2021 until 08/06/2022 CYTOLOGY NON-DIALS SUPERVISOR [facility] Work Phone: Comment on above: Release Upon Ordering for 1 Occurrences starting 03/22/2022, 1 completed End: 08-11-2022 Dup-scan artl grey abdl/pel/scrot&/rpr orgn com US DOPPLER COMPLETE Radiology Routine Cirrhosis of liver with ascites, unspecified hepatic cirrhosis type (HCC) 1 Occurrences starting 07/12/2021 until 08/11/2022 [facility] Work Phone: Comment on above: 1 Occurrences starting 07/12/2021 until 08/11/2022 End: 05-12-2023 Dup-scan artl grey abdl/pel/scrot&/rpr orgn com US DOPPLER COMPLETE Radiology Routine Cirrhosis of liver with ascites, unspecified hepatic cirrhosis type (HCC) 1 Occurrences starting 07/13/2021 until 08/12/2022 [facility] Work Phone: Comment on above: 1 Occurrences starting 07/13/2021 until 08/12/2022 End: 10-18-2022 ECG COMPLETE ECG COMPLETE ECG Routine Preoperative examination Unilateral inguinal hernia without obstruction or gangrene, recurrence not specified 1 Occurrences starting 10/19/2021 until 10/18/2022 [facility] Work Phone: Comment on above: 1 Occurrences starting 10/19/2021 until 10/18/2022 End: 11-11-2022 ECG COMPLETE ECG COMPLETE ECG Routine Preoperative examination Unilateral inguinal hernia without obstruction or gangrene, recurrence not specified 1 Occurrences starting 11/11/2021 until 11/11/2022 [facility] Work Phone: Comment on above: 1 Occurrences starting 11/11/2021 until 11/11/2022 ECG COMPLETE ECG COMPLETE ECG 11/11/2021 9:26 AM EDT [facility] End: 01-10-2023 ECG COMPLETE ECG COMPLETE ECG Routine Preoperative examination Unilateral inguinal hernia without obstruction or gangrene, recurrence not specified 1 Occurrences starting 01/10/2022 until 01/10/2023 [facility] Work Phone: Comment on above: 1 Occurrences starting 01/10/2022 until 01/10/2023 End: 05-13-2023 Gamma glutamyl transferase [Enzymatic activity/volume] in Serum or Plasma GGT BLD Lab Routine Liver replaced by transplant (HCC) 2x per week for 100 Occurrences starting 05/13/2022 until 05/13/2023 [facility] Work Phone: Comment on above: 2x per week for 100 Occurrences starting 05/13/2022 until 05/13/2023 End: 04-08-2025 Gamma glutamyl transferase [Enzymatic activity/volume] in Serum or Plasma GGT Lab Routine Liver replaced by transplant (HCC) Every other week for 50 Occurrences starting 04/08/2024 until 04/08/2025 [facility] Comment on above: Every other week for 50 Occurrences star ting 04/08/2024 until 04/08/2025 Guidance for percuta neous biopsy of Liver IMAGING GUIDED BIOPSY LIVER Radiology STAT Elevated LFTs Ordered: 02/06/2024 [facility] Work Phone: Comment on above: Ordered: 02/06/2024 End: 02-11-2023 Hepatic function 2000 panel - Serum or Plasma HEPATIC FUNCTION PNL Lab Routine Cirrhosis of liver with ascites, unspecified hepatic cirrhosis type (HCC) Once per week for 52 Occurrences starting 02/11/2022 until 02/11/2023 [facility] Work Phone: Comment on above: Once per week for 52 Occurrences startin g 02/11/2022 until 02/11/2023 End: 05-13-2023 Lipid 1995 panel - Serum or Plasma LIPID PANEL BASIC Lab Routine Liver replaced by transplant (HCC) Every 3 months for 4 Occurrences starting 05/13/2022 until 05/13/2023 [facility] Work Phone: Comment on above: Every 3 months for 4 Occurrences startin g 05/13/2022 until 05/13/2023 End: 04-08-2025 Lipid 1995 panel - Serum or Plasma LIPID PANEL BASIC Lab Routine Liver replaced by transplant (HCC) Every 6 months for 2 Occurrences starting 04/08/2024 until 04/08/2025 [facility] Comment on above: Every 6 months for 2 Occurrences startin g 04/08/2024 until 04/08/2025 End: 05-13-2023 Magnesium [Mass/volume] in Serum or Plasma MAGNESIUM BLD Lab Routine Liver replaced by transplant (HCC) 2x per week for 100 Occurrences starting 05/13/2022 until 05/13/2023 [facility] Work Phone: Comment on above: 2x per week for 100 Occurrences starting 05/13/2022 until 05/13/2023 Patient Education [facility] Abdo dina Paracentesis [facility] Work Phone: End: 05-13-2023 Phosphate [Mass/volume] in Serum or Plasma PHOSPHORUS INORGANIC Lab Routine Liver replaced by transplant (HCC) 2x per week for 100 Occurrences starting 05/13/2022 until 05/13/2023 [facility] Work Phone: Comment on above: 2x per week for 100 Occurrences starting 05/13/2022 until 05/13/2023 End: 04-08-2025 Phosphate [Mass/volume] in Serum or Plasma PHOSPHORUS INORGANIC Lab Routine Liver replaced by transplant (HCC) Every 6 months for 2 Occurrences starting 04/08/2024 until 04/08/2025 [facility] Comment on above: Every 6 months for 2 Occurrences startin g 04/08/2024 until 04/08/2025 End: 02-11-2023 PT panel - Platelet poor plasma by Coagulation assay PROTHROMBIN TIME/PT Lab Routine Cirrhosis of liver with ascites, unspecified hepatic cirrhosis type (HCC) Once per week for 52 Occurrences starting 02/11/2022 until 02/11/2023 [facility] Work Phone: Comment on above: Once per week for 52 Occurrences startin g 02/11/2022 until 02/11/2023 End: 02-12-2023 Radiologic exam chest 2 views XR CHEST 2V FRONTAL/LAT Radiology Routine Chronic rhinitis Pneumonia of right lower lobe due to infectious organism 1 Occurrences starting 01/13/2022 until 02/12/2023 [facility] Work Phone: Comment on above: 1 Occurrences starting 01/13/2022 until 02/12/2023 REFER FOR ADMIT INTERVIEW REFER FOR ADMIT INTERVIEW Procedures Routine Preoperative examination Unilateral inguinal hernia without obstruction or gangrene, recurrence not specified Ordered: 10/19/2021 [facility] Work Phone: Comment on above: Ordered: 10/19/2021 REFER FOR ADMIT INTERVIEW REFER FOR ADMIT INTERVIEW Procedures Routine Preoperative examination Unilateral inguinal hernia without obstruction or gangrene, recurrence not specified Ordered: 01/10/2022 [facility] Work Phone: Comment on above: Ordered: 01/10/2022 SPIROMETRY WITH DILA TOR IF OBSTRUCTED SPIROMETRY WITH DILATOR IF OBSTRUCTED PFT Routine Chronic rhinitis Pneumonia of right lower lobe due to infectious organism 02/11/2022 12:34 PM EST [facility] Work Phone: End: 05-13-2023 Tacrolimus [Mass/volume] in Blood TACROLIMUS/FK-506 BL Lab Routine Liver replaced by transplant (HCC) 2x per week for 100 Occurrences starting 05/13/2022 until 05/13/2023 [facility] Work Phone: Comment on above: 2x per week for 100 Occurrences starting 05/13/2022 until 05/13/2023 End: 04-08-2025 Tacrolimus [Mass/volume] in Blood TACROLIMUS/FK-506 BL Lab Routine Liver replaced by transplant (HCC) Every other week for 50 Occurrences starting 04/08/2024 until 04/08/2025 [facility] Comment on above: Every other week for 50 Occurrences star ting 04/08/2024 until 04/08/2025 End: 08-11-2022 US ABD LIVER VASCULAR US ABD LIVER VASCULAR Radiology Routine Cirrhosis of liver with ascites, unspecified hepatic cirrhosis type (HCC) 1 Occurrences starting 07/12/2021 until 08/11/2022 [facility] Work Phone: Comment on above: 1 Occurrences starting 07/12/2021 until 08/11/2022 End: 08-12-2022 US ABD LIVER VASCULAR US ABD LIVER VASCULAR Radiology Routine Cirrhosis of liver with ascites, unspecified hepatic cirrhosis type (HCC) 1 Occurrences starting 07/13/2021 until 08/12/2022 [facility] Work Phone: Comment on above: 1 Occurrences starting 07/13/2021 until 08/12/2022 End: 01-19-2023 Us abdominal real time w/image limited US ASCITES SURVEY Radiology Routine Other ascites 1 Occurrences starting 12/20/2021 until 01/19/2023 [facility] Work Phone: Comment on above: 1 Occurrences starting 12/20/2021 until 01/19/2023 End: 02-04-2023 Us abdominal real time w/image limited US ASCITES SURVEY Radiology Routine Cirrhosis of liver with ascites, unspecified hepatic cirrhosis type (HCC) 1 Occurrences starting 01/05/2022 until 02/04/2023 [facility] Work Phone: Comment on above: 1 Occurrences starting 01/05/2022 until 02/04/2023 End: 03-24-2023 Us abdominal real time w/image limited US ASCITES SURVEY Radiology Routine 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) 1 Occurrences starting 02/22/2022 until 03/24/2023 [facility] Work Phone: Comment on above: 1 Occurrences starting 02/22/2022 until 03/24/2023 End: 05-13-2023 Us scrotum & contents US SCROTUM AND CONTENTS Radiology Routine Unilateral inguinal hernia without obstruction or gangrene, recurrence not specified Hydrocele, unspecified hydrocele type 1 Occurrences starting 04/13/2022 until 05/13/2023 [facility] Work Phone: Comment on above: 1 Occurrences starting 04/13/2022 until 05/13/2023 [facility] Immunizations Immunization Date Immunization Notes Care Provider Jb rendon 03-05-2022 influenza, injectabl e, quadrivalent, preservative free Dayna Reyes MD Work Phone: [facility] 03-05-2022 influenza virus vaccine, unspecified formulation [facility] Work Phone: [facility] 02-18-2021 COVID-19 vaccine (UNSPECIFIED) Dayna Reyes MD Work Phone: [facility] Work Phone: 02-18-2021 COVID-19 vaccine, fu ll dose (MODERNA) Dayna Reyes MD Work Phone: [facility] 01-14-2021 Influenza, injectabl e, [place] Canine Kidney, preservative free, quadrivalent Dayna Reyes MD Work Phone: [facility] 07-13-2020 COVID-19 vaccine (UNSPECIFIED) Dayna Reyes MD Work Phone: [facility] Work Phone: 07-13-2020 COVID-19 vaccine, fu ll dose (MODERNA) Dayna Reyes MD Work Phone: [facility] 06-16-2020 COVID-19 vaccine (UNSPECIFIED) Dayna Reyes MD Work Phone: [facility] Work Phone: 06-16-2020 COVID-19 vaccine, fu ll dose (MODERNA) Dayna Reyes MD Work Phone: [facility] Work Phone: 03-02-2020 Influenza, injectabl e, Madin [place] Canine Kidney, preservative free, quadrivalent Dayna Reyes MD Work Phone: [facility] 02-26-2020 hepatitis A vaccine, adult dosage Dayna Reyes MD Work Phone: [facility] 09-10-2019 hepatitis A vaccine, adult dosage Dayna Reyes MD Work Phone: [facility] 09-10-2019 pneumococcal conjuga te vaccine, 13 valent Dayna Reyes MD Work Phone: [facility] 09-10-2019 tetanus toxoid, reduced diphtheria toxoid, and acellular pertussis vaccine, adsorbed Dayna Reyes MD Work Phone: [facility] 07-26-2018 Hepatitis B vaccine (recombinant), CpG adjuvanted Dayna Reyes MD Work Phone: [facility] 07-03-2018 Hepatitis B vaccine (recombinant), CpG adjuvanted Dayna Reyes MD Work Phone: [facility] 12-28-2017 influenza, seasonal, injectable Dayna Reyes MD Work Phone: [facility] 01-17-2017 influenza virus vaccine, unspecified formulation Dayna Reyes MD Work Phone: [facility] Payers Date Payer Category Payer Self-pay [id number] 2024 [place] [id number] 2024 Medicare [id number] 2021 Medicare DEVOTED MEDICARE [facility] [id number] 2021-Present [phone] [address] [place] [address] [facility] [id number] 2021 Medicare [id number] 2020 Unknown [id number] 2017 Unknown [id number] 2009 Unknown [id number] 1959 Unknown [id number]. [id number] 1959 Unknown [id number] [id number]. 2.356 1959 Unknown [id number] [id number]. 2.356 1959 Unknown [id number] [id number]. 2.356 1959 Unknown [id number] [id number]. 2.593 1959 Unknown [id number] [id number]. 2.593 1959 Unknown [id number] [id number]. 2.593 1959 Unknown [id number] [id number]. 2.593 Unknown [id number] [id number]. 2.277 Unknown [id number] [id number]. 2.277 Unknown [id number] [id number]. 2.277 Unknown [id number] [id number]. 2.277 Unknown [id number] Unknown HCAP/HFA/FAP Active [id number] Unknown [id number] [id number] Social History Date Type Detail Facility Start: 04-15-2021 End: 04-22-2022 Tobacco smoking status NHIS Ex-smoker [facility] Work Phone: Start: 05-30-1977 End: 04-03-2019 History of tobacco use Current smoker [facility] Work Phone: Start: 05-30-1977 End: 04-03-2019 History of tobacco use Cigarette Smoker [facility] Work Phone: Start: 04-15-2021 End: 08-03-2022 Cigarettes smoked current (pack per day) - Reported 2 [facility] Start: 04-15-2021 End: 07-07-2021 Tobacco use and exposure Former smokeless tobacco user [facility] Work Phone: History of tobacco use Snuff User [facility] Work Phone: Start: 04-21-2021 End: 02-07-2024 Alcohol intake Ex-drinker (finding) [facility] Start: 09-09-2019 History SDOH Alcohol Frequency 1 [facility] Start: 03-30-2021 Tobacco Comment Quite 03/02/2020 [facility] Start: 1960 Sex Assigned At Male [facility] Start: 03-22-2021 End: 03-04-2022 Exposure to SARS-CoV-2 (event) Not sure [facility] Start: 06-01-2021 Tobacco smoking status [facility] Smokes tobacco daily [facility] Work Phone: Start: 09-10-2021 End: 10-19-2021 Exposure to SARS-CoV-2 (event) Unable to assess [facility] Work Phone: Start: 11-11-2021 End: 04-20-2022 Tobacco use and exposure Smokeless tobacco non-user [facility] Start: 11-11-2021 History SDOH Alcohol Comment none since 2018 [facility] Start: 04-03-1979 Tobacco smoking status NHIS Occasional tobacco smoker [facility] Start: 09-09-2019 End: 08-03-2022 Alcohol Use Disorder Identification Test - Consumption [AUDIT-C] [facility] How often to you hav e a drink containing alcohol? Never [facility] Start: 10-13-2014 Average Number of Drinks Not on file [facility] Work Phone: Start: 06-02-2020 Gender identity Identifies as male gender (finding) [facility] Medical Equipment Procedure Code Equipment Code Equipment Origin al Text Equipment Identifier Dates Lens Iol Ultrase rt 20 - [id number] Start: 10-19-2018 Lens Iol Ultrase rt 19.5 - [id number] Start: 11-06-2018 Mesh Srg Pariete ne Pp Macro [id number] X3 - [id number] Start: 09-11-2018 Mesh Parietene Macroporous [id number] Surgical - [id number] Start: 03-04-2022 Start: 05-12-2022 End: 05-27-2022 Comment on above: Use 1 each as instru cted to check blood sugar level three times a day Use 1 each as direct ed to check blood sugar level three times a day Functional Status Date Assessment Result Facility 03-05-2022 Are you deaf, or do you have serious difficulty hearing No 03/05/2022 10:37 AM Des Garvey RN No [facility] 03-05-2022 Are you blind, or do you have serious difficulty seeing, even when wearing glasses No 03/05/2022 10:37 AM Des Garvey RN No [facility] 03-05-2022 Do you have serious difficulty walking or climbing stairs No 03/05/2022 10:37 AM Des Garvey RN No [facility] 03-05-2022 Do you have difficul ty dressing or bathing No 03/05/2022 10:37 AM Des Garvey RN No [facility] 03-05-2022 Because of a physica l, mental, or emotional condition, do you have difficulty doing errands alone such as visiting a physician's office or shopping No 03/05/2022 10:37 AM Des Garvey RN No [facility] Mental Status Date Assessment Result Facility 03-05-2022 Because of a physica l, mental, or emotional condition, do you have serious difficulty concentrating, remembering, or making decisions No 03/05/2022 10:37 AM Des Garvey RN No [facility] Clinical Notes 07-03-2018 to 09-16-2024 Result Encounter Note - Kat Leal RN - 09/16/2024 7:55 AM EDTResult Encounter Note - Kat Leal RN - 09/16/2024 7:55 AM EDTSRebecca mullen APRN.INVESTIGATION [employer] - 02/20/2024 11:04 AM EST Note Date & Type Note Facility 09-16-2024 Progress note Formatting of t his note might be different from the original. Lab work reviewed and is consistent with recent lab values. Will continue to monitor labs. Kat Leal RN, BSN [employer] [facility] 09-16-2024 Miscellaneous Notes Lab work reviewed and is consistent with recent lab values. Will continue to monitor labs. Kat Leal RN, BSN [employer] Lab work reviewed and is consistent with recent lab values. Will continue to monitor labs. Kat Leal RN, BSN [employer] documented in this encounter [facility] 09-13-2024 Progress note Formatting of t his note might be different from the original. Lab work reviewed and is consistent with recent lab values. Will continue to monitor labs. Kat Leal RN, BSN [employer] [facility] 08-27-2024 Progress note Formatting of t his note might be different from the original. Results reviewed with Rebecca Mascorro, ROMA, no changes at this time. Will continue to monitor labs. Kat Leal RN, BSN [facility] 08-27-2024 Miscellaneous Notes Results reviewed with Rebecca Mascorro CNP, no changes at this time. Will continue to monitor labs. Kat Leal RN BSN Results reviewed with Diane Vallecillo CNP, no changes at this time. Will continue to monitor labs. Kat Leal RN BSN Lab work reviewed and is consistent with recent lab values. Will continue to monitor labs. Kat Leal RN, BSN [employer] documented in this encounter [facility] 08-23-2024 Progress note Formatting of t his note might be different from the original. Results reviewed with Diane Vallecillo CNP, no changes at this time. Will continue to monitor labs. Kat Leal RN BSN [facility] 08-23-2024 Progress note Formatting of t his note might be different from the original. Lab work reviewed and is consistent with recent lab values. Will continue to monitor labs. Kat Leal RN, BSN [employer] [facility] 08-13-2024 Progress note Formatting of t his note might be different from the original. Results reviewed with Rebecca Mascorro CNP, no changes at this time. Will continue to monitor labs. Kat Leal RN BSN [facility] 08-13-2024 Miscellaneous Notes Results reviewed with Rebecca Mascorro CNP, no changes at this time. Will continue to monitor labs. Kat Leal RN, BSN Results reviewed. No change to the plan of care at this time. documented in this encounter [facility] 08-12-2024 Progress note Formatting of t his note might be different from the original. Results reviewed. No change to the plan of care at this time. [facility] 07-16-2024 Progress note Formatting of t his note might be different from the original. Results reviewed. No change to the plan of care at this time. [facility] 07-16-2024 Miscellaneous Notes Results reviewed. No change to the plan of care at this time. Results reviewed. No change to the plan of care at this time. documented in this encounter [facility] 07-15-2024 Progress note Formatting of t his note might be different from the original. Results reviewed. No change to the plan of care at this time. [facility] 06-18-2024 Progress note Formatting of t his note might be different from the original. Lab work reviewed and is consistent with recent lab values. Will continue to monitor labs. Kat Leal RN, BSN [employer] [facility] 06-18-2024 Miscellaneous Notes Lab work reviewed and is consistent with recent lab values. Will continue to monitor labs. Kat Leal RN, BSN [employer] Lab work reviewed and is consistent with recent lab values. Will continue to monitor labs. Kat Leal RN BSN [employer] Lab work reviewed and is consistent with recent lab values. Will continue to monitor labs. Kat Leal RN BSN [employer] documented in this encounter [facility] 06-17-2024 Progress note Formatting of t his note might be different from the original. Lab work reviewed and is consistent with recent lab values. Will continue to monitor labs. Kat Leal RN BSN [employer] Inspector [employer] [facility] 06-17-2024 Progress note Formatting of t his note might be different from the original. Lab work reviewed and is consistent with recent lab values. Will continue to monitor labs. Kat Leal RN BSN [employer] [facility] 05-21-2024 Progress note Formatting of t his note might be different from the original. Lab work reviewed and is consistent with recent lab values. Will continue to monitor labs. Kat Leal RN, BSN [employer] [facility] 05-21-2024 Miscellaneous Notes Lab work reviewed and is consistent with recent lab values. Will continue to monitor labs. Kat Leal RN BSN [employer] Lab work reviewed and is consistent with recent lab values. Will continue to monitor labs. Kat Leal RN, BSN [employer] Lab work reviewed and is consistent with recent lab values. Will continue to monitor labs. Kat Leal RN, BSN [employer] documented in this encounter [facility] 05-20-2024 Progress note Formatting of t his note might be different from the original. Lab work reviewed and is consistent with recent lab values. Will continue to monitor labs. Kat Leal RN, BSN [employer] [facility] 05-20-2024 Progress note Formatting of t his note might be different from the original. Lab work reviewed and is consistent with recent lab values. Will continue to monitor labs. Kat Leal RN, BSN [employer] [facility] 03-26-2024 Telephone encounter Note I reviewed patient's tacrolimus level with Rebecca Mascorro CNP, who ordered for patient to decrease dosage to 1mg BID. I called and reviewed this change with patient, who stated his understanding, and will make adjustment with tonight's dose. Patient's request for medication is as follows: Requested Prescriptions Pending Prescriptions Disp Refills tacrolimus IR (PROGRAF) 1 mg capsule 60 capsule 11 Sig: Take 1 capsule by mouth two times a day. Please approve the above prescription(s) to electronically send to pharmacy. Kat Leal RN [facility] 03-26-2024 Miscellaneous Notes I reviewed patient's tacrolimus level with Rebecca Mascorro CNP, who ordered for patient to decrease dosage to 1mg BID. I called and reviewed this change with patient, who stated his understanding, and will make adjustment with tonight's dose. Patient's request for medication is as follows: Requested Prescriptions Pending Prescriptions Disp Refills tacrolimus IR (PROGRAF) 1 mg capsule 60 capsule 11 Sig: Take 1 capsule by mouth two times a day. Please approve the above prescription(s) to electronically send to pharmacy. Kat Leal RN documented in this encounter [facility] 03-12-2024 Telephone encounter Note I reviewed patient's elevated LFTs with Rebecca Mascorro CNP, who ordered for patient to increase his actigall back to 3 times per day. I called and spoke with patient, who stated his understanding, and will make this change today. He will repeat his lab work in 1-2 weeks. Patient's request for medication is as follows: Requested Prescriptions Pending Prescriptions Disp Refills ursodiol (ACTIGALL) 300 mg capsule 90 capsule 11 Sig: Take 1 capsule by mouth three times a day. TAKE ONE(1) CAPSULE DAILY WITH MEALS. Please approve the above prescription(s) to electronically send to pharmacy. Kat Leal RN [facility] 03-12-2024 Miscellaneous Notes I reviewed patient's elevated LFTs with Rebecca Mascorro CNP, who ordered for patient to increase his actigall back to 3 times per day. I called and spoke with patient, who stated his understanding, and will make this change today. He will repeat his lab work in 1-2 weeks. Patient's request for medication is as follows: Requested Prescriptions Pending Prescriptions Disp Refills ursodiol (ACTIGALL) 300 mg capsule 90 capsule 11 Sig: Take 1 capsule by mouth three times a day. TAKE ONE(1) CAPSULE DAILY WITH MEALS. Please approve the above prescription(s) to electronically send to pharmacy. Kat Leal RN documented in this encounter [facility] 11-19-2024 History of Presen t illness Narrative Pathology findings from liver biopsy dated 02/07/24 reviewed at Pathology Conference and shows mild steatosis. No TCMR. . Rebecca Mascorro APRN.CNP February 13, 2024 documented in this encounter [facility] 02-08-2024 Telephone encounter Note I called and reviewed patient's liver biopsy results with him. Reviewed that there was some mild steatosis, and that he should work on a healthy diet and exercise. He has his labs already scheduled to be drawn on Monday. Told him we would see his lab work Monday and make a plan from there. Kat Leal RN (Cassie), BSN, [facility] [employer] [facility] 02-08-2024 Miscellaneous Notes I called and reviewed patient's liver biopsy results with him. Reviewed that there was some mild steatosis, and that he should work on a healthy diet and exercise. He has his labs already scheduled to be drawn on Monday. Told him we would see his lab work Monday and make a plan from there. Kat Leal RN (Cassie), BSN, [facility] [employer] documented in this encounter [facility] 02-06-2024 Telephone encounter Note Biopsy scheduled for 02/07/24. Transplant team notified [facility] 02-06-2024 Miscellaneous Notes Biopsy scheduled for 02/07/24. Transplant team notified [facility]. COORDINATOR INFORMATION Approved to be scheduled in US LAB RESULTS: PT INR (no units) Date Value 05/17/2021 1.1 INR (no units) Date Value 05/02/2023 1.0 APTT (sec) Date Value 05/13/2022 27.1 08/14/2019 30.2 Platelet Count (k/uL) Date Value 02/05/2024 136 05/17/2021 83 Current Outpatient Medications Medication Sig tacrolimus IR (PROGRAF) 1 mg capsule Take 2 capsules by mouth two times a day. ursodiol (ACTIGALL) 300 mg capsule Take 1 capsule by mouth two times a day. TAKE ONE(1) CAPSULE DAILY WITH MEALS. aspirin 81 mg chewable tablet CHEW & SWALLOW 1 TABLET BY MOUTH ONCE DAILY sulfamethoxazole-trimethoprim (BACTRIM DS) 800-160 mg per tablet TAKE 1 TABLET BY MOUTH EVERY MONDAY,MONDAY,MONDAY sulfamethoxazole-trimethoprim (BACTRIM DS) 800-160 mg per tablet Take 1 tablet by mouth every Monday, Monday, and Monday. carvedilol (COREG) 6.25 mg tablet Take 1 tablet by mouth two times a day. mycophenolate mofetil (CELLCEPT) 250 mg capsule Take 2 capsules by mouth two times a day. simvastatin (ZOCOR) 20 mg tablet TAKE 1 TABLET BY MOUTH EVERYDAY AT BEDTIME magnesium oxide (MAG-OX) 400 mg (241.3 mg magnesium) tablet Take 1 tablet by mouth twice daily. acetaminophen (TYLENOL) 500 mg tablet Take 1 tablet by mouth every 6 hours as needed for pain. multivit-min/FA/lycopen/lutein (CENTRUM SILVER MEN ORAL) Take 1 tablet by mouth once daily. No current facility-administered medications for this visit. ALLERGIES Allergen Reactions Pregabalin Mental Status Change Lyrica Becomes Manic GUIDELINES FOR HOLDING ANTI-PLATELET AND ANTI- COAGULATION THERAPY: none on file NURSE SIGNATURE: Alicia Elizondo RN DATE: February 06, 2024 TIME: 2:14 PM RADIOLOGY CALL CENTER INTAKE LEGAL DOCUMENT ASSISTANT: daja oliva EXT: na DATE: 1104 TIME: 0a TRACKING #. na REQUESTING PERSON: sara leal PHONE/PAGER: new REQUESTING STAFF: yolette vallecillo PHONE/PAGER: na SPECIFICS OF THE REQUEST: (Please be as detailed as possible. If request is lymph node biopsy, specify LOCATION of the node if possible): needs a STAT liver ultrasound and biopsy tomorrow. (For example: biopsy liver mass or biopsy pelvic lymph node ) SPECIAL REQUESTS: TISSUE SAMPLE, LABWORK: Routine Evaluation -Fine needle aspiration (FNA), core biopsy, no preference, unsure, specific processing request for pathology (For example: send for ER, [place], HER2/tiana or possible lymphoma send in RPMI solution ) IS THIS REQUEST PART OF A RESEARCH PROTOCOL: No IF YES: List specifics of request and name/contact number of research coordinator and primary physician. MEDICAL DIAGNOSIS: post liver tx (For example: history of breast cancer with liver mass or history of lymphoma ) TYPE AND DATE OF THE EXAM THAT IS THE BASIS OF THE REQUEST: na (Note: Requests for random organ biopsies, specifically liver and kidney random biopsies do not need imaging. ALL OTHER CASES NEED IMAGING TO EVALUATE APPROPRIATENESS/FEASIBILITY OF THE REQUEST) IMAGING: [facility] (If the imaging was obtained outside the [facility] system, then it needs to be submitted for review prior to approval.) Note to all persons requesting biopsies: All biopsy requests will be scheduled as quickly as possible, based on the clinical urgency, availability of appointment times, the need to hold anti-thrombolytic therapy (aspirin, blood thinners) and the patient s schedule, including the need for an available courier driver. If a percutaneous biopsy or drainage is not felt to be safe or an alternative method for establishing a diagnosis is possible, this will be discussed directly with the requesting physician. documented in this encounter [facility] 02-06-2024 Telephone encounter Note BX. COORDINATOR INFORMATION Approved to be scheduled in US LAB RESULTS: PT INR (no units) Date Value 05/17/2021 1.1 INR (no units) Date Value 05/02/2023 1.0 APTT (sec) Date Value 05/13/2022 27.1 08/14/2019 30.2 Platelet Count (k/uL) Date Value 02/05/2024 136 05/17/2021 83 Current Outpatient Medications Medication Sig tacrolimus IR (PROGRAF) 1 mg capsule Take 2 capsules by mouth two times a day. ursodiol (ACTIGALL) 300 mg capsule Take 1 capsule by mouth two times a day. TAKE ONE(1) CAPSULE DAILY WITH MEALS. aspirin 81 mg chewable tablet CHEW & SWALLOW 1 TABLET BY MOUTH ONCE DAILY sulfamethoxazole-trimethoprim (BACTRIM DS) 800-160 mg per tablet TAKE 1 TABLET BY MOUTH EVERY MONDAY,MONDAY,MONDAY sulfamethoxazole-trimethoprim (BACTRIM DS) 800-160 mg per tablet Take 1 tablet by mouth every Monday, Monday, and Monday. carvedilol (COREG) 6.25 mg tablet Take 1 tablet by mouth two times a day. mycophenolate mofetil (CELLCEPT) 250 mg capsule Take 2 capsules by mouth two times a day. simvastatin (ZOCOR) 20 mg tablet TAKE 1 TABLET BY MOUTH EVERYDAY AT BEDTIME magnesium oxide (MAG-OX) 400 mg (241.3 mg magnesium) tablet Take 1 tablet by mouth twice daily. acetaminophen (TYLENOL) 500 mg tablet Take 1 tablet by mouth every 6 hours as needed for pain. multivit-min/FA/lycopen/lutein (CENTRUM SILVER MEN ORAL) Take 1 tablet by mouth once daily. No current facility-administered medications for this visit. ALLERGIES Allergen Reactions Pregabalin Mental Status Change Lyrica Becomes Manic GUIDELINES FOR HOLDING ANTI-PLATELET AND ANTI- COAGULATION THERAPY: none on file NURSE SIGNATURE: Alicia Elizondo RN DATE: February 06, 2024 TIME: 2:14 PM [facility] 02-06-2024 Telephone encounter Note RADIOLOGY CALL CENTER INTAKE LEGAL DOCUMENT ASSISTANT: daja oliva EXT: new DATE: 1104 TIME: TRACKING #. na REQUESTING PERSON: sara leal PHONE/PAGER: new REQUESTING STAFF: yolette vallecillo PHONE/PAGER: new SPECIFICS OF THE REQUEST: (Please be as detailed as possible. If request is lymph node biopsy, specify LOCATION of the node if possible): needs a STAT liver ultrasound and biopsy tomorrow. (For example: biopsy liver mass or biopsy pelvic lymph node ) SPECIAL REQUESTS: TISSUE SAMPLE, LABWORK: Routine Evaluation -Fine needle aspiration (FNA), core biopsy, no preference, unsure, specific processing request for pathology (For example: send for ER, [place], HER2/tiana or possible lymphoma send in RPMI solution ) IS THIS REQUEST PART OF A RESEARCH PROTOCOL: No IF YES: List specifics of request and name/contact number of research coordinator and primary physician. MEDICAL DIAGNOSIS: post liver tx (For example: history of breast cancer with liver mass or history of lymphoma ) TYPE AND DATE OF THE EXAM THAT IS THE BASIS OF THE REQUEST: na (Note: Requests for random organ biopsies, specifically liver and kidney random biopsies do not need imaging. ALL OTHER CASES NEED IMAGING TO EVALUATE APPROPRIATENESS/FEASIBILITY OF THE REQUEST) IMAGING: [facility] (If the imaging was obtained outside the [facility] system, then it needs to be submitted for review prior to approval.) Note to all persons requesting biopsies: All biopsy requests will be scheduled as quickly as possible, based on the clinical urgency, availability of appointment times, the need to hold anti-thrombolytic therapy (aspirin, blood thinners) and the patient s schedule, including the need for an available courier driver. If a percutaneous biopsy or drainage is not felt to be safe or an alternative method for establishing a diagnosis is possible, this will be discussed directly with the requesting physician. [facility] Work Phone: 02-06-2024 Telephone encounter Note I reviewed patient's elevated LFTs with Rebecca Mascorro CNP, who ordered for patient to have a liver biopsy. I called and reviewed with patient, who stated his understanding and agreement. Reviewed biopsy instructions with patient. Kat Leal RN (Cassie), [place], [facility] [employer] Outside [employer] [facility] 02-06-2024 Miscellaneous Notes I reviewed patient's elevated LFTs with Rebecca Mascorro CNP, who ordered for patient to have a liver biopsy. I called and reviewed with patient, who stated his understanding and agreement. Reviewed biopsy instructions with patient. Kat Leal RN (Cassie), [place], [facility] [employer] Inspector [employer] documented in this encounter [facility] 02-06-2024 Telephone encounter Note Pts daughter called last night to the [facility] to discuss repeat lab results, noting that the lft's were a bit more elevated. These were repeat labs requested d/t previous results elevated and tacro levels on the lower end and dose was recently increased (tacro level still in process). Pt is stable and I instructed her that I will d/w Sara in the morning and have her r/w the staff regarding f/u needs for further evaluation. Pt may need liver biopsy. Daughter verbalized understanding of above instructions and will call with report or sooner PRN. Jammie Cantu RN (Molly), BSN, [facility] Liver Inspector Outside [employer] [facility] 02-06-2024 Miscellaneous Notes Pts [facility] results, noting that the lft's were a bit more elevated. These were repeat labs requested d/t previous results elevated and tacro levels on the lower end and dose was recently increased (tacro level still in process). Pt is stable and I instructed her that I will d/w Sara in the morning and have her r/w the staff regarding f/u needs for further evaluation. Pt may need liver biopsy. Daughter verbalized understanding of above instructions and will call with report or sooner PRN. Jammie Cantu RN (Molly), BSN, [facility] [employer] documented in this encounter [facility] 01-30-2024 Telephone encounter Note I reviewed patient's slightly elevated LFTs with Rebecca Mascorro CNP, who ordered for patient to repeat lab work on Monday. I called and discussed with patient, who stated his understanding. He'll call back with further questions. Kat Leal (Cassie) RN, BSN, [facility] [employer] [facility] 01-30-2024 Miscellaneous Notes I reviewed patient's slightly elevated LFTs with Rebecca Mascorro CNP, who ordered for patient to repeat lab work on Monday. I called and discussed with patient, who stated his understanding. He'll call back with further questions. Kat Leal (Cassie) RN, BSN, [facility] [employer] documented in this encounter [facility] 01-16-2024 Telephone encounter Note I reviewed patient's LFTs and tacrolimus level with Rebecca Mascorro CNP, who ordered for patient to increase his tacrolimus dose to 2mg twice daily. I called and reviewed this change with patient, who stated his understanding. We discussed his concerns about his LFTs, and he will repeat his lab work in 2 weeks to make sure that his numbers are coming down with this adjustment. Patient's request for medication is as follows: Requested Prescriptions Pending Prescriptions Disp Refills tacrolimus IR (PROGRAF) 1 mg capsule 120 capsule 11 Sig: Take 2 capsules by mouth two times a day. Please approve the above prescription(s) to electronically send to pharmacy. Kat Leal RN [facility] 01-16-2024 Miscellaneous Notes I reviewed patient's LFTs and tacrolimus level with Rebecca Mascorro CNP, who ordered for patient to increase his tacrolimus dose to 2mg twice daily. I called and reviewed this change with patient, who stated his understanding. We discussed his concerns about his LFTs, and he will repeat his lab work in 2 weeks to make sure that his numbers are coming down with this adjustment. Patient's request for medication is as follows: Requested Prescriptions Pending Prescriptions Disp Refills tacrolimus IR (PROGRAF) 1 mg capsule 120 capsule 11 Sig: Take 2 capsules by mouth two times a day. Please approve the above prescription(s) to electronically send to pharmacy. Kat Leal RN documented in this encounter [facility] 07-12-2023 Miscellaneous Notes Patient's request for medication is as follows: Requested Prescriptions Pending Prescriptions Disp Refills ursodiol (ACTIGALL) 300 mg capsule 60 capsule 11 Sig: Take 1 capsule by mouth two times a day. TAKE ONE(1) CAPSULE DAILY WITH MEALS. Please approve the above prescription(s) to electronically send to pharmacy. Kat Leal RN documented in this encounter [facility] 05-25-2023 Miscellaneous Notes Patient phones requesting refills as follows: Requested Prescriptions Pending Prescriptions Disp Refills sulfamethoxazole-trimethoprim (BACTRIM DS) 800-160 mg per tablet 14 tablet 11 Sig: Take 1 tablet by mouth every Monday, Monday, and Monday. NIKHIL Moreland, [facility] Liver Inspector Outside [employer] Patient phones requesting refills as follows: Requested Prescriptions Pending Prescriptions Disp Refills sulfamethoxazole-trimethoprim (BACTRIM DS) 800-160 mg per tablet 12 tablet 11 Sig: Take 1 tablet by mouth every Monday, Monday, and Monday. Please review and advise. Vandana Styles documented in this encounter [facility] 05-22-2023 Miscellaneous Notes Spoke with patient and discussed that lab orders have . Agreed I will enter new standing lab orders. NIKHIL Moreland, [facility] [employer] Inspector Outside [employer] Jordan called in requesting that Lab orders. Jordan can be reached at [phone]. documented in this encounter [facility] 05-11-2023 Miscellaneous Notes I called and spoke with patient. Advised him that he needs to obtain blood pressure medication from his PCP or salvage mechanic. He stated his understanding. Will provide one month supply to give him time to get in with their office. Patient's request for medication is as follows: Requested Prescriptions Pending Prescriptions Disp Refills carvedilol (COREG) 6.25 mg tablet 60 tablet 0 Sig: Take 1 tablet by mouth two times a day. Please approve the above prescription(s) to electronically send to pharmacy. Kat Leal RN Patient called to request refill but since he was transplanted. I am sending the message/refill request to you. documented in this encounter [facility] 01-17-2023 Miscellaneous Notes Lab work reviewed and is consistent with recent lab values. Will continue to monitor labs. Kat Leal RN, BSN Liver Inspector Outside [employer] Lab work reviewed and is consistent with recent lab values. Will continue to monitor labs. Kat Leal RN, BSN Liver Inspector Outside Production documented in this encounter [facility] 01-11-2023 Miscellaneous Notes Lab work reviewed and is consistent with recent lab values. Will continue to monitor labs. Kat Leal RN, BSN Liver Inspector Outside Production documented in this encounter [facility] 12-09-2022 Instructions Jane Hernandez PA-C - 12/09/2022 2:11 PM EDT Consult to physical therapy Please follow-up with me in 6 weeks or sooner if symptoms change or worsen. This can be a telephone or virtual visit. Consider injections moving forward. Thank you, Jane Hernandez PA-C [phone] documented in this encounter [facility] 12-09-2022 History of Presen t illness Narrative Images from the original note were not included. SPINE SURGERY OUTPATIENT CONSULT This is an in-person visit. SERVICE DATE: 12/09/2022 PCP: Jordan Azar MD REFERRING PROVIDER: Tiffany Bucio MD [address] [address] Consult requested for an opinion regarding the evaluation and treatment of low back pain. My final impression and recommendations will be communicated back to the requesting physician by way of the shared medical record or letter via US mail. SUBJECTIVE Jordan Aguilar is a 62 year old male presenting with spouse. CHIEF COMPLAINT: Left sided low back pain HISTORY OF PRESENT ILLNESS C/o left sided low back pain > left hip / buttock pain, which has been present since September 2022. The pain previously radiated into left leg - but that has resolved. Ambulates prolonged distances with cane. Pain is aggravated by walking with mild relief while sitting. Hx of two prior lumbar spine surgeries (2010, 2012). Most recent was at OSH. Hx of liver transplant in April 2022. CMT: -Tylenol PRECIPITATING EVENT: Patient had a child come at him DURATION OF SYMPTOMS: Greater Than 3 Months PAIN EVALUATION 12/05/2022 0544 Pain Level: 4 Pain Location: Back-Lower Frequency: Continuous Intervention/Comfort measure: Cold;Positioning Pain Radiation: down the left thigh Aggravating Factors: Walking Alleviating Factors: Sitting Pain Ratio: Pain in the back is greater than in the leg DERMATOMAL DISTRIBUTION: Left: L5 and S1 AMBULATORY STATUS: Independent Community Distances ANTIPLATELET OR ANTICOAGULATION STATUS: No PREVIOUS CONSERVATIVE TREATMENTS: Analgesics PREVIOUS SPINAL SURGERY: SEE HPI ACTIVE PROBLEM LIST 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) Other Ascites Histoplasmosis Metabolic Syndrome Hepatic Steatosis Essential Hypertension Dyslipidemia Iron Deficiency Need for Vaccination Against Hepatitis B Virus Vitamin D Deficiency Portal Hypertensive Gastropathy (Hcc) Sarcopenia Vitamin A Deficiency 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 Iron Deficiency Anemia Due to Chronic Blood Loss Abdominal aortic aneurysm (AAA) without rupture Lung Nodules Hypergammaglobulinemia History of Colonic Polyps Age-Related Osteoporosis Without Current Pathological Fracture Unilateral Inguinal Hernia Without Obstruction Or Gangrene Portal Hypertension With Esophageal Varices (Hcc) Muscle Cramp Appointment Cancelled Copd (Chronic Obstructive Pulmonary Disease) (Hcc) Anemia Thrombocytopenia (Hcc) Cad (Coronary Artery Disease) Nicotine use disorder, F17.2 Cirrhosis of Liver With Ascites (Hcc) Liver Transplant Recipient (Hcc) Acute Postoperative Pulmonary Insufficiency (Hcc) Acute Blood Loss Anemia Coagulopathy (Hcc) Need for Prophylactic Immunotherapy Hyperglycemia PAST MEDICAL HISTORY Diagnosis Date Anemia Aneurysm of infrarenal abdominal aorta (HCC) Arthritis Ascites CAD (coronary artery disease) COPD (chronic obstructive pulmonary disease) (HCC) Delayed emergence from general anesthesia Hepatic encephalopathy (HCC) Hepatic encephalopathy (HCC) 03/06/2019 Histoplasmosis Histoplasmosis Hydrothorax Hyperlipidemia Hypertension Liver cirrhosis (HCC) Liver cyst 07/03/2018 Liver transplant candidate 05/01/2019 Sarcopenia Thrombocytopenia (HCC) PAST SURGICAL HISTORY Procedure Laterality Date BACK SURGERY HX x2 EGD HERNIA REPAIR HX Left inguinal HERNIA REPAIR HX 09/2020 Umbilical PAST SURGICAL HISTORY OF colonoscopy REVISION OF LUNG blebs removed 1979 from histoplasmosis XCAPSL CTRC RMVL INSJ IO LENS PROSTH W/O ECP Left 10/19/2018 XCAPSL CTRC RMVL INSJ IO LENS PROSTH W/O ECP Right 11/06/2018 Cataract Extraction with PC IOL FAMILY HISTORY Problem Relation Age of Onset other (MVA) Mother 56 Diabetes Father Heart disease Father Heart Attack Father 72 in hospital other (bypass) Father Thyroid Sister Heart Attack Brother Diabetes Brother Hypertension Brother other (Gout) Brother Diabetes Brother other (pneumonia) Maternal Grandmother passed age 80's Heart Attack Maternal Grandfather Diabetes Paternal Grandmother passed age 94 other (lung cancer) Paternal Grandfather Heart disease Paternal Uncle Cancer Paternal Uncle multi type Heart Paternal Uncle Anesthesia Problems No Family History Social History Tobacco Use Smoking status: Some Days Packs/day: 2.00 Years: 41.00 Additional pack years: 0.00 Total pack years: 82.00 Types: Cigarettes Start date: 1979 Last attempt to quit: 2019 Years since quittin.6 Smokeless tobacco: Never Vaping Use Vaping Use: Never used Substance Use Topics Alcohol use: Not Currently Comment: none since 2018 Drug use: No ALLERGIES Allergen Reactions Pregabalin Mental Status Change Lyrica Becomes Manic MEDICATIONS: aspirin 81 mg chewable tablet CHEW & SWALLOW 1 TABLET BY MOUTH ONCE DAILY tacrolimus IR (PROGRAF) 1 mg capsule Take 2 capsules by mouth twice daily. ursodiol (ACTIGALL) 300 mg capsule Take 1 capsule by mouth three times daily. TAKE ONE(1) CAPSULE DAILY WITH MEALS. simvastatin (ZOCOR) 20 mg tablet TAKE 1 TABLET BY MOUTH EVERYDAY AT BEDTIME magnesium oxide (MAG-OX) 400 mg (241.3 mg magnesium) tablet Take 1 tablet by mouth twice daily. acetaminophen (TYLENOL) 500 mg tablet Take 1 tablet by mouth every 6 hours as needed for pain. mycophenolate mofetil (CELLCEPT) 250 mg capsule Take 4 capsules by mouth twice daily. sulfamethoxazole-trimethoprim (BACTRIM DS,SEPTRA DS) 800-160 mg per tablet Take 1 tablet by mouth every Monday,Monday,Monday. carvedilol (COREG) 6.25 mg tablet Take 1 tablet by mouth twice daily. multivit-min/FA/lycopen/lutein (CENTRUM SILVER MEN ORAL) Take 1 tablet by mouth once daily. lancets (ivi.ruTOUCH DELICA PLUS LANCET) 33 gauge Use 1 each as directed to check blood sugar level three times a day (Patient not taking: Reported on 12/09/2022) blood sugar diagnostic (ONETOUCH VERIO TEST STRIPS) test strip Use 1 each as instructed to check blood sugar level three times a day (Patient not taking: Reported on 12/09/2022) REVIEW OF SYSTEMS: PAIN ASSESSMENT: See HPI. GENERAL: Denies fever, chills malaise and weight loss. HEENT: No recent change in vision or hearing. CARDIOVASCULAR: Denies chest pain, history of A-fib, valvular disease, or pacemaker/ICD. RESPIRATORY: Denies SOB, sputum production, and hemoptysis. GI: Hx of Liver Transplant : Denies change in frequency or urgency, kidney disease, and burning with urination. MUSCULOSKELETAL: Positive for See HPI SKIN: Denies rash or itching. PSYCHOLOGICAL: Denies uncontrolled depression or anxiety. NEURO: Denies CVA, seizures, headaches. ENDOCRINE: Denies diabetes, thyroid disease. HEMATOLOGY/LYMPHOLOGY: Denies cancer, bleeding or clotting disorders, anemia,and DVT's. ALLERGIC/IMMUNOLOGICAL: Denies risks for infection, or recent MRSA infections. Patient Entered Questionnaires Spine Questions 12/08/2022 Pain Location: Lower back Pain Duration: More than 5 years Pain over last 6 months: Every day or nearly every day in the past 6 months Symptoms from neck/cervical spine: Yes Employment Status: Disabled due to back pain, permanently or temporarily Off work 1 month or more due to back/neck pain: Yes Applied for/receive disability/WC due to low back/neck pain Yes Involved in law suit/legal claim: No Neck Questionnaires 12/08/2022 Benzel Modified KRISTIN Score Incomplete PROMIS Score Percentiles Physical Health 12/08/2022 Physical Function Percentile 10 Sleep Percentile 21* Fatigue Percentile 18* Pain Interference Percentile 8 PROMIS SOCIAL ROLE SCORE 12/08/2022 Social Role Satisfaction Percentile 31 PROMIS Global Health Scale 02/08/2022 05/27/2022 12/08/2022 Physical Health Percentile 10 - 10 Mental Health Percentile 26* 26* 43 Percentiles provide an indication of how the patient's score ranks in relation to the general population. Higher percentile rankings indicate better function/quality of life. 50th percentile is the average of the general population and indicates half of respondents had a worse score. Depression Screening: PHQ-9 05/17/2021 12/08/2022 Score 1 11 PHQ-9 Self-harm Question 05/17/2021 12/08/2022 Thoughts that you would be better off , or of hurting yourself in some way 0 0 PHQ-9 Self-Harm (Item 9) response options: 0 Not at all 1 Several days 2 More than half the days 3 Nearly every day PHQ-9 Levels: 0-4 No to mild depression 5-9 Mild depression 10-14 Moderate depression 15-19 Moderately severe depression 20-27 Severe depression OBJECTIVE: PHYSICAL EXAM BP 139/76 Pulse 64 Resp 16 Ht 185.4 cm (6' 1 ) Wt 91.2 kg (201 lb) SpO2 99% BMI 26.52 kg/m GENERAL APPEARANCE: Well nourished, well developed, and no apparent distress. NEURO PSYCH: Patient oriented to person, place, and time. Mood pleasant. Benign affect. MUSCULOSKELETAL VISUAL INSPECTION CERVICAL: WNL THORACIC: WNL LUMBAR: WNL PALPATION: SPINOUS PROCESS: No pain. PARASPINALS: No pain. MUSCLE BULK: Normal and symmetrical in the upper & lower extremities. MUSCLE TONE: Normal. MOTOR: 5/5 in all muscle groups. SENSORY: Normal sensory exam GAIT: Normal. REFLEXES: +2 to bilateral U/L extremities. PROPRIOCEPTION: Normal. LONG TRACT SIGNS: No clonus. No Hoffmans. STRAIGHT LEG TEST: Ipsilateral: Negative. Contralateral: Negative. L'HERMITTES SIGN: Not tested. SPURLING'S TEST: Not tested. DATA REVIEW Imaging and outside records independently reviewed Images independently reviewed with the patient ASSESSMENT/PLAN (M54.42) Acute left-sided low back pain with left-sided sciatica (primary encounter diagnosis) (Z98.890) S/P lumbar laminectomy Sonu Aguilar is a 62 year old male with a history of liver transplant in April 2022 and two prior lumbar surgeries presenting today with left sided low back pain > left hip / buttock pain. Upon physical exam, he is neurologically intact from the spine standpoint; 5/5 motor strength. Had lengthy discussion with patient regarding current symptoms and imaging findings. Lumbar MRI reveals left sided L5-S1 narrowing. Primary complaint at this time is low back pain. Recommend ongoing conservative management as he has not maximized his treatment at this time. Recommend consult to PT locally - order provided. Consider trial of injections moving forward if pain persists. Jordan Aguilar will continue with medical management of his/her condition. 1. Consults: Physical Therapy 2. Follow up: 6 weeks or sooner if symptoms change or worsen. Imaging Ordered: None The majority of the visit was spent counseling and/or coordinating care for the patient. The patient was counseled regarding low back pain. Total face to face time was 45 minutes. SIGNATURE: Jane Hernandez PA-C PATIENT NAME: Jordan Aguilar DATE: December 09, 2022 TIME: 1:49 PM PAGER:[phone] documented in this encounter [facility] 11-20-2022 Miscellaneous Notes Patient called stating he had a liver biopsy on Monday. He took the dressing off today and noted it is red around the site. Denies fever, pain, swelling or drainage. Instructed to continue to monitor and if any of the described symptoms develop, he should notify the office again. NIKHIL Moreland, [facility] Liver Inspector Outside [employer] documented in this encounter [facility] 11-15-2022 History of Presen t illness Narrative C/o Low back pain, left leg pain, difficulty walking, left leg numbness and weakness. CMT: -Boat Buffer Plastic -Oral Steroids -Muscle Relaxants -ES Tylenol Hx of lumbar surgery in 2013 at OSH. Hx of lumbar surgery at [facility]. 2nd opinion - not offered surgery. Lumbar MRI reveals right L5-S1 foraminal stenosis. New Patient appt with me - in person or virtually. Jane Hernandez PA-C Patient name: Jordan Aguilar Are you being referred by a [facility] Provider or Pain Management Provider at [facility]? No If answer is YES please schedule directly with surgeon, triage does not need to be completed. Is this a self-referral No If not, who is the Referring Provider TIFF[facility] [place] office referring the patient to be seen in Neuro Surgery (Dominic Gracia) for Herniation of lumbar intervertebral disc with radiculopathy. Is this a 2nd opinion? Yes Were you offered surgery? No MRI/CT/myelogram within 12 months? Yes If NO , please refer to medical spine or PCP to complete above imaging, triage does not need to be completed If YES, please ask for the name/address of the facility where the MRI/CT/myelogram was completed: [facility] [address] [place] [address] MRI/CT/myelogram viewable in Epic: No If not, please provide [phone] to fax in imaging reports for review. Also, please inform patient to hand carry imaging disc to appointment. XR (spine) within 12 months: Yes If YES, please ask for the name/address of the facility where the XR was completed: [facility] [address] [place] [address] Dr. Gama's patients: Have you had previous EMG/Nerve Conduction Study, Ultrasound, or MRI for these same symptoms? If YES, please ask for the name/address of the facility where they were completed: Requested provider (First and Last name): Dr. Garcia Are you interested in a virtual visit if offered? No 1. Where are you having symptoms related to this visit? Back pain Yes LBP (L Side), L hip Leg pain Yes L leg Arm pain No Neck pain No 2. Are you having any of the following symptoms: Difficulty walking Yes limited distance I walk with a limp. Numbness Yes L leg Weakness Yes L leg My L leg is getting smaller in size. Trouble using your hands? no 3. Have you had any injections or physical therapy in the last 12 months? No If YES then please ask for the name/address of the facility where the injections and/or physical therapy was completed Have you tried any other kinds of non-surgical treatments in the last 12 months? (For example: NSAIDS, muscle relaxants, analgesics, oral steroids, Chiropractor, Acupuncture): Chiropractor, oral steroids, muscle relaxants, Extra Strength Tylenol 4. Are you currently taking daily prescribed narcotic medications for your current symptoms (For example Oxycodone, Hydrocodone, Tramadol, Morphine, Other)? No 5. Have you had previous spinal surgery for this same symptoms? Yes If YES please ask for the name of facility/address of where the surgery was completed: 2013, Lumbar surgery [facility] [address] [place] [address] Lumbar surgery at [facility] also Additional Comments [phone] documented in this encounter [facility] 11-15-2022 Miscellaneous Notes Biopsy scheduled for 11/17/22 biopsy liver tx approved to be done in ultrasound BX. COORDINATOR INFORMATION LAB RESULTS: PT INR (no units) Date Value 05/17/2021 1.1 INR (no units) Date Value 10/17/2022 1.0 APTT (sec) Date Value 05/13/2022 27.1 08/14/2019 30.2 Platelet Count (k/uL) Date Value 11/14/2022 112 05/17/2021 83 Current Outpatient Medications Medication Sig tacrolimus IR (PROGRAF) 1 mg capsule Take 2 capsules by mouth twice daily. ursodiol (ACTIGALL) 300 mg capsule Take 1 capsule by mouth three times daily. TAKE ONE(1) CAPSULE DAILY WITH MEALS. simvastatin (ZOCOR) 20 mg tablet TAKE 1 TABLET BY MOUTH EVERYDAY AT BEDTIME aspirin 81 mg chewable tablet CHEW & SWALLOW 1 TABLET BY MOUTH ONCE DAILY magnesium oxide (MAG-OX) 400 mg (241.3 mg magnesium) tablet Take 1 tablet by mouth twice daily. acetaminophen (TYLENOL) 500 mg tablet Take 1 tablet by mouth every 6 hours as needed for pain. lancets (RF nano DELICA PLUS LANCET) 33 gauge Use 1 each as directed to check blood sugar level three times a day blood sugar diagnostic (HighlightCamUCH VERIO TEST STRIPS) test strip Use 1 each as instructed to check blood sugar level three times a day mycophenolate mofetil (CELLCEPT) 250 mg capsule Take 4 capsules by mouth twice daily. sulfamethoxazole-trimethoprim (BACTRIM DS,SEPTRA DS) 800-160 mg per tablet Take 1 tablet by mouth every Monday,Monday,Monday. carvedilol (COREG) 6.25 mg tablet Take 1 tablet by mouth twice daily. multivit-min/FA/lycopen/lutein (CENTRUM SILVER MEN ORAL) Take 1 tablet by mouth once daily. No current facility-administered medications for this visit. ALLERGIES Allergen Reactions Pregabalin Mental Status Change Lyrica Becomes Manic FILMS SENT TO WORKSTATION: GUIDELINES FOR HOLDING ANTI-PLATELET AND ANTI- COAGULATION THERAPY: none on file NURSE SIGNATURE: Iesha Edmond LPN DATE: November 15, 2022 TIME: 8:20 AM RADIOLOGY CALL CENTER INTAKE LEGAL DOCUMENT ASSISTANT: daja oliva EXT: na DATE: 814 TIME: na TRACKING #. na REQUESTING PERSON: sara leal PHONE/PAGER: na REQUESTING STAFF: ryley vallecillo PHONE/PAGER: na SPECIFICS OF THE REQUEST: (Please be as detailed as possible. If request is lymph node biopsy, specify LOCATION of the node if possible): us guided liver biopsy [facility] perm liver biopsy. Ideally we would like for it to be or Monday. Patient will not have a ride Monday. (For example: biopsy liver mass or biopsy pelvic lymph node ) SPECIAL REQUESTS: TISSUE SAMPLE, LABWORK: Routine Evaluation -Fine needle aspiration (FNA), core biopsy, no preference, unsure, specific processing request for pathology (For example: send for ER, [place], HER2/tiana or possible lymphoma send in RPMI solution ) IS THIS REQUEST PART OF A RESEARCH PROTOCOL: No IF YES: List specifics of request and name/contact number of research coordinator and primary physician. MEDICAL DIAGNOSIS: post liver transplant (For example: history of breast cancer with liver mass or history of lymphoma ) TYPE AND DATE OF THE EXAM THAT IS THE BASIS OF THE REQUEST: CT Date: na (Note: Requests for random organ biopsies, specifically liver and kidney random biopsies do not need imaging. ALL OTHER CASES NEED IMAGING TO EVALUATE APPROPRIATENESS/FEASIBILITY OF THE REQUEST) IMAGING: [facility] (If the imaging was obtained outside the [facility] system, then it needs to be submitted for review prior to approval.) Note to all persons requesting biopsies: All biopsy requests will be scheduled as quickly as possible, based on the clinical urgency, availability of appointment times, the need to hold anti-thrombolytic therapy (aspirin, blood thinners) and the patient s schedule, including the need for an available courier driver. If a percutaneous biopsy or drainage is not felt to be safe or an alternative method for establishing a diagnosis is possible, this will be discussed directly with the requesting physician. documented in this encounter [facility] 11-15-2022 Miscellaneous Notes Reviewed and approved. Diane Vallecillo CNP I reviewed patient's LFTs with Diane Vallecillo CNP, who ordered for patient to receive liver biopsy. I called and explained this to patient, who stated his understanding. He will call back with questions or as needed. Kat Leal (Cassie) RN, BSN Liver Inspector Outside Production documented in this encounter [facility] 11-07-2022 Miscellaneous Notes I reviewed patient's lab work with Rebecca Mascorro CNP, who ordered to increase patient's tacrolimus dose to 2mg BID. I called and reviewed this change with patient, which he stated his understanding of and will initiate with tonight's dose. Patient's request for medication is as follows: Requested Prescriptions Pending Prescriptions Disp Refills tacrolimus IR (PROGRAF) 1 mg capsule 120 capsule 11 Sig: Take 2 capsules by mouth twice daily. Please approve the above prescription(s) to electronically send to pharmacy. Kat Leal RN documented in this encounter [facility] 11-01-2022 Evaluation note Encounter Date Diagnosis Assessment Notes Nov, Herniation of lumbar intervertebral disc with radiculopathy (ICD-10 - M51.16) I independently reviewed the MRI of the lumbar spine and the report. This patient has degenerative changes of the lumbar disc at L5-S1 with postoperative changes L5-S1 on the right he has a disc herniation L5-S1 on the left consistent with a left S1 radiculopathy that he is complaining of. Regretfully this patient has had a liver transplant within the last 6 months I think it is important that he be cared for at a tertiary care facility that did his liver transplant I have given him a couple names recommendation I think this is beyond the scope of our hospital at this point. Nov, Greater trochanteric bursitis of left hip (ICD-10 - M70.62) Nov, Liver failure without hepatic coma, unspecified chronicity (ICD-10 - K72.90) [facility] 07-31-2023 History of Present illness Narrative* Diane Vallecillo APRN.ROMA - 10/31/2022 10:06 AM EDT VIRTUAL VISIT PROGRESS NOTE This is a virtual visit using Audio only. It required patient-provider interaction for the medical decision making as documented below. I have communicated my name and active licensure. The patient's identity and physical location wereverified at the time of this visit. Either the patient or their legal account manager sales representative has been informed of the risks and benefits of -- and alternatives to -- treatment through a remote evaluation andconsents to proceed with the evaluation remotely. Jordan Aguilar is a 62 year old male seen for 6 mo post txp follow up HISTORY REVIEWED (electronic chart updated): PAST MEDICAL HISTORY Diagnosis Date Anemia Aneurysm of infrarenal abdominal aorta (HCC) Arthritis Ascites CAD (coronary artery disease) COPD (chronic obstructive pulmonary disease) (HCC) Delayed emergence from general anesthesia Hepatic encephalopathy (HCC) Histoplasmosis Histoplasmosis Hydrothorax Hyperlipidemia Hypertension Liver cirrhosis (HCC) Sarcopenia Thrombocytopenia (HCC) PAST SURGICAL HISTORY Procedure Laterality Date BACK SURGERY HX x2 EGD HERNIA REPAIR HX Left inguinal HERNIA REPAIR HX 09/2020 Umbilical PAST SURGICAL HISTORY OF colonoscopy REVISION OF LUNG blebs removed 1979 from histoplasmosis XCAPSL CTRC RMVL INSJ IO LENS PROSTH W/O ECP Left 10/19/2018 XCAPSL CTRC RMVL INSJ IO LENS PROSTH W/O ECP Right 11/06/2018 Cataract Extraction with PC IOL FAMILY HISTORY Problem Relation Age of Onset other (MVA) Mother 56 Diabetes Father Heart disease Father Heart Attack Father 72 in hospital other (bypass) Father Thyroid Sister Heart Attack Brother Diabetes Brother Hypertension Brother other (Gout) Brother Diabetes Brother other (pneumonia) Maternal Grandmother passed age 80's Heart Attack Maternal Grandfather Diabetes Paternal Grandmother passed age 94 other (lung cancer) Paternal Grandfather Heart disease Paternal Uncle Cancer Paternal Uncle multi type Heart Paternal Uncle Anesthesia Problems No Family History Social History Tobacco Use Smoking status: Some Days Packs/day: 2.00 Years: 41.00 Total pack years: 82.00 Types: Cigarettes Start date: 1979 Last attempt to quit: 2019 Years since quittin.5 Smokeless tobacco: Never Vaping Use Vaping Use: Never used Substance Use Topics Alcohol use: Not Currently Comment: none since 2018 Drug use: No Current Outpatient Medications Medication Sig tacrolimus IR (PROGRAF) 1 mg capsule Take 1 capsule by mouth twice daily. Take in addition to 0.5 mg capsule for total dose of 1.5 mg twice daily. tacrolimus IR (PROGRAF) 0.5 mg capsule Take 1 capsule by mouth twice daily. Take in addition to one1mg capsule for total dose of 1.5mg twice daily ursodiol (ACTIGALL) 300 mg capsule Take 1 capsule by mouth three times daily. TAKE ONE(1) CAPSULE DAILY WITH MEALS. simvastatin (ZOCOR) 20 mg tablet TAKE 1 TABLET BY MOUTH EVERYDAY AT BEDTIME aspirin 81 mg chewable tablet CHEW & SWALLOW 1 TABLET BY MOUTH ONCE DAILY magnesium oxide (MAG-OX) 400 mg (241.3 mg magnesium) tablet Take 1 tablet by mouth twice daily. acetaminophen (TYLENOL) 500 mg tablet Take 1 tablet by mouth every 6 hours as needed for pain. lancets (RF nano DELICA PLUS LANCET) 33 gauge Use 1 each as directed to check blood sugar level three times a day blood sugar diagnostic (RF nano VERIO TEST STRIPS) test strip Use 1 each as instructed to check blood sugar level three times a day mycophenolate mofetil (CELLCEPT) 250 mg capsule Take 4 capsules by mouth twice daily. sulfamethoxazole-trimethoprim (BACTRIM DS,SEPTRA DS) 800-160 mg per tablet Take 1 tablet by mouth every Monday,Monday,Monday. carvedilol (COREG) 6.25 mg tablet Take 1 tablet by mouth twice daily. multivit-min/FA/lycopen/lutein (CENTRUM SILVER MEN ORAL) Take 1 tablet by mouth once daily. No current facility-administered medications for this visit. ALLERGIES Allergen Reactions Pregabalin Mental Status Change Amanda Becomes Manic REVIEW OF SYSTEMS: GENERAL: feeling well without fatigue, no recent change in weight, good energy without fatigue PHYSICAL EXAMINATION: VIDEO EXAM: (if completed, performed via video enabled technology) No VV ASSESSMENT: Mr. Aguilar is a 62 y/o male s/p OLT for [place] in April of this year. He presents via phone (soundwould not work on [employer]) for his 6 mo post txp follow up. He is doing well and feeling good overall.He is having some nerve pain and mentioned previously needing surgery for a similar problem-but unclear in what type that was. Bump noted in his LFT's today, and denies any ETOH use, he was startedon Tizanidine- about a month ago for leg pain- upon researching, this can cause an elevation in liver enzymes- I will plan to have him stop this to r/o DILI. PLAN: - Labs reviewed, kidney function looks great- liver function with bump to LFT's today - IS- Tacrolimus 1.5 mg bid, MMF 1 G Bid-->Plan to drop to 500 mg in the next few weeks - Being seen for nerve pain in his leg- he is unsure if this is a Neurologist or Ortho MD - Stop Tizanidine- ask his MD for other muscle - RTC in 6 mo, sooner if needed. There are no Patient Instructions on file for this visit. I spent a total of 20 minutes on the date of the service which included preparing to see the patient, completing clinical documentation, obtaining and/or reviewing separately obtained history, performing a medically appropriate examination, counseling and educating the patient/family/caregiver, ordering medications, tests, or procedures, communicating results to the patient/family/caregiver, and care coordination (not separately reported) Diane Vallecillo APRN.INVESTIGATION LIEUTENANT [facility] Miscellaneous Notes* Result Encounter Note - Kat Leal RN - 10/05/2022 3:42 PM EDT Lab work reviewed and is consistent with recent lab values. Will continue to monitor labs. Kat Leal RN, BSN Liver Inspector Outside Production * Result Encounter Note - Kat Leal RN - 10/05/2022 8:52 AM EDT Lab work reviewed and is consistent with recent lab values. Will continue to monitor labs. Kat Leal RN, BSN Liver Inspector Outside Production documented in this encounterMar[facility]06-22[facility]23 Miscellaneous Notes* Telephone Encounter - Francois German RN - 09/22/2022 11:25 AM EDT Patient is out of 0.5 mg tacrolimus capsules. He should be getting more by stefanie, but he is asking what to do if not. He was only able to take 1 mg tacrolimus this morning. I instructed to take 1 mg in the morning and 2 mg in the evening until 0.5 mg capsules arrive. She repeated instructions to confirm understanding. NIKHIL Moreland, [facility] Liver Inspector Outside Production * Telephone Encounter - Warren Ross Coord - 09/22/2022 11:09 AM EDT Sonu called to speak to his curriculum and assessment coordinator about his Tacro medication. Please call [phone]. documented in this encounterMar[facility]06-[facility]23 Miscellaneous Notes* Telephone Encounter - Kat Leal RN - 09/15/2022 3:58 PM EDT I reviewed patient's tacrolimus level with Diane Vallecillo CNP, who ordered to decrease his dose to 1.5mg BID. I called and reviewed this change with patient, who stated his understanding, and will make the change with tonight's dose. Patient's request for medication is as follows: Requested Prescriptions Pending Prescriptions Disp Refills tacrolimus IR (PROGRAF) 1 mg capsule 60 capsule 11 Sig: Take 1 capsule by mouth twice daily. Take in addition to 0.5 mg capsule for total dose of 1.5 mg twice daily. tacrolimus IR (PROGRAF) 0.5 mg capsule 60 capsule 11 Sig: Take 1 capsule by mouth twice daily. Take in addition to one 1mg capsule for total dose of 1.5mg twice daily Please approve the above prescription(s) to electronically send to pharmacy. Kat Leal RN documented in this encounterMar[facility]06-01-2023 Miscellaneous Notes* Result Encounter Note - Kat Leal RN - 09/01/2022 12:20 PM EDT Results reviewed with Dr. Faye, see encounter for details. Will continue to monitor labs. Kat Leal RN, BSN Liver Inspector Outside Production documented in this encounterMarion [facility]06-01-2023 Miscellaneous Notes* Telephone Encounter - Kat Leal RN - 09/01/2022 12:16 PM EDT Patient's rising LFTs reviewed with Diane Vallecillo CNP, and Dr. Faye. Dr. Faye ordered to increase patient's tacrolimus to 2mg BID, and start actigall. I called and reviewed these changes with patient, who stated his understanding of the above. Patient's request for medication is as follows: Requested Prescriptions Pending Prescriptions Disp Refills tacrolimus IR (PROGRAF) 1 mg capsule 120 capsule 11 Sig: Take 2 capsules by mouth twice daily. Take in addition to 0.5 mg capsule for total dose of 1.5mg twice daily. ursodiol (ACTIGALL) 300 mg capsule 90 capsule 11 Sig: Take 1 capsule by mouth three times daily. TAKE ONE(1) CAPSULE DAILY WITH MEALS. Please approve the above prescription(s) to electronically send to pharmacy. Kat Leal RN documented in this encounterMarion Hospital05-04-2023 History of Present illness Narrative* Kulwinder Landry MD - 08/04/2022 11:48 AM EDT Mr. Aguilar looks great, he is now s/p liver txp. He has a resolving hematoma in the right groin that looks like it's getting smaller on his last CT so I would just leave it alone. Follow-up PRN. Kulwinder Landry MD I have seen and evaluated the patient and discussed the case with the resident physician. I agree with the assessment and plan as documented in the resident s note. * Adithya Cobos MD - 08/04/2022 11:20 AM EDT OUTPATIENT CLINIC PROGRESS NOTE CC: Post-op seroma Interval HPI: 62 year old male who presents here for a postoperative visit after undergoing right inguinal hernia repair w mesh 03/04/22 and drain removal on 03/10/22. Last seen on 03/17/22 with concerns about scrotal swelling since drain removal. In there interval he received a liver transplant and is doing well in that respect. He was evaluated by urology who ordered US scrotum which demonstrated 4cm heterogenous lesion in r inguinal region,decreased in size from prior study (5.7cm), no testicular lesion or involvement. On CT scan on 08/01, post-surgical changes with improving hematoma and no recurrent hernia. He still notes some pain with activity in R inguinal region but overall improving. Exam: BP 134/67 Pulse 73 Temp 36.7 C (98 F) (Temporal) Ht 185.4 cm (6' 1 ) Wt 93.4 kg (206 lb) BMI 27.18 kg/m Body mass index is 27.18 kg/m . GENERAL: Alert, no distress, cooperative RESP: nl effort CV: rr ABDOMEN: soft non-tender, saanm incision from liver transplant Incision C/D/I . Small firm mass in R inguinal region consistent with resolving post-op operative seroma/hematoma ASSESSMENT AND PLAN: 62 year old male who presents here for a postoperative visit after undergoing right inguinal hernia repair w mesh 03/04/22, recovering well with resolving hematoma. - No further need for scheduled follow up - Patient can call with any questions or if further issues arise The patient expressed full understanding and agreement with the plan. SIGNATURE: Adithya Cobos MD DATE: August 04, 2022 TIME: 11:20 AM documented in this encounterMarion Hospital05-04-2023 Nurse Note* Trina Brandt Ma - 08/04/2022 10:24 AM EDT What is the reason for your visit today? est Who is your referring physician? Dr. Landry Are you having poor oral intake? NO Have you had unintentional weight loss of 15 lbs/7 Kg in the last 3-6 months? NO Bowels: regular Wound: clean & dry Temperature: No Drains: No documented in this encounterMarion Hospital05-03-2023 History of Present illness Narrative* Diane Vallecillo APRN.INVESTIGATION LIEUTENANT - 08/03/2022 1:14 PM EDT POST LIVER TRANSPLANT FOLLOW UP Jordan Aguilar [id number] Date of Transplant: 05/03/22 Original liver diagnosis: [place] Explanted liver:[place] Medication List: Current Outpatient Medications Medication Sig simvastatin (ZOCOR) 20 mg tablet TAKE 1 TABLET BY MOUTH EVERYDAY AT BEDTIME aspirin 81 mg chewable tablet CHEW & SWALLOW 1 TABLET BY MOUTH ONCE DAILY pantoprazole DR (PROTONIX) 40 mg tablet TAKE 1 TABLET BY MOUTH DAILY (6 AM). magnesium oxide (MAG-OX) 400 mg (241.3 mg magnesium) tablet Take 1 tablet by mouth twice daily. tacrolimus IR (PROGRAF) 1 mg capsule Take 1 capsule by mouth twice daily. Take in addition to 0.5 mg capsule for total dose of 1.5 mg twice daily. tacrolimus IR (PROGRAF) 0.5 mg capsule Take 1 capsule by mouth twice daily. Take in addition to 1 mg capsule for total dose of 1.5 mg twice daily. acetaminophen (TYLENOL) 500 mg tablet Take 1 tablet by mouth every 6 hours as needed for pain. lancets (ivi.ruTOUCH DELICA PLUS LANCET) 33 gauge Use 1 each as directed to check blood sugar level three times a day blood sugar diagnostic (ivi.ruTOUCH VERIO TEST STRIPS) test strip Use 1 each as instructed to check blood sugar level three times a day mycophenolate mofetil (CELLCEPT) 250 mg capsule Take 4 capsules by mouth twice daily. sulfamethoxazole-trimethoprim (BACTRIM DS,SEPTRA DS) 800-160 mg per tablet Take 1 tablet by mouth every Monday,Monday,Monday. carvedilol (COREG) 6.25 mg tablet Take 1 tablet by mouth twice daily. multivit-min/FA/lycopen/lutein (CENTRUM SILVER MEN ORAL) Take 1 tablet by mouth once daily. No current facility-administered medications for this visit. Vitals: BP 140/67 Pulse 72 Temp 97.9 Resp 18 Ht 6' 2 (1.88m) Wt 212 lb (96.2kg) SpO2 96% BMI27.21 kg/(m^2). PHYSICAL EXAMINATION: General appearance: well appearing, in no acute distress, and alert Skin: skin color, texture, turgor normal, no rashes or lesions Head: normal Neck: Supple Lungs: lungs clear to auscultation Heart: Negative. RRR without murmur, gallop, or rubs. No ectopy Abdomen:soft, ND, NT Extremities: Extremities normal. No deformities, edema, or skin discoloration. Good capillary refill. Neuro: Negative. ASSESSMENT: Mr. Aguilar is a 62 y/o male s/p OLT for [place] on 05/03/22. He presents to clinic today for his 3 mo post txp follow up. He is feeling well and his only concern was regarding an inguinal hernia that was previously repaired (he thought it had recurred). He has an appt. with Dr. Landry coming up- CT from 08/01 showed improvement and no recurrent hernia. PLAN: - Labs reviewed- liver and kidney function are stable - IS- Tacrolimus 1.5 mg bid, MMF 1G bid- no changes today- can plan to decrease MMF soon - RTC in 3 mo w/ a virtual visit - AAA w/ slow growth- vascular med consult - RTC in 3 mo. this can be a VV Diane Vallecillo APRN.INVESTIGATION LIEUTENANT documented in this encounterMarion Hospital05-01-2023 History of Present illness Narrative* Rebecca Diaz, RT(R) - 08/01/2022 2:20 PM EDT Radiology Service Progress Note PATIENT NAME: Jordan Aguilar DATE OF SERVICE: August 01, 2022 TIME: 1:12 PM PATIENT IDENTITY VERIFICATION COMPLETED USING TWO (2) IDENTIFIERS: Name and Date of confirmedby patient verbally and Name and Date of confirmed by identification band. FALL SCREENING: Has the patient had 2 falls in the last year or 1 fall with injury or currently using an Ambulatory Assistive Device (Walker, Cane, Wheelchair, Crutches, etc.)? No PATIENT GENDER DATA: Male PATIENT RELEVANT IMPLANT DATA REVIEWED: Not Applicable RADIOLOGY DEPARTMENT: CT; Exam(s) Completed: Abdomen/Pelvis PERIPHERAL IV DATA: Not applicable SIGNED BY: RT Neva(R) August 01, 2022 1:12 PM documented in this encounterMarion Hospital04-14-2023 Miscellaneous Notes* Telephone Encounter - Apolinar Wheeler MA - 07/15/2022 1:55 PM EDT Reviewed chart for clinic prep. Patient has new CT ordered but not scheduled. Will not be able to get CT prior to 07/21 appointment. Staff message to schedulers to move appointment to a time after CT is scheduled. EMA Silva-P, OCCA documented in this encounterMarion Hospital04-10-2023 Instructions* Patient Instructions* Natacha Tellez - 07/11/2022 10:52 AM EDT Follow up with Dr. Gris FLANNERY office visit with Urology documented in this encounterMarion Hospital04-10-2023 History of Present illness Narrative* Natacha Tellez - 07/11/2022 10:20 AM EDT Jordan Aguilar [address] [place] [id number] Mr. Aguilar presents with chief complaints of: Scrotal US follow up. US Scrotum 07/05/22 = 4.0 cm heterogeneous lesion within the R inguinal region, decreased in size from the study which previously measured 5.7 cm, small bilateral epididymal cysts US scrotum 05/08/22 = 5.7 cm patent hepatic vasculature, R posterior perihepatic collection, splenomegaly Pt first presented to the clinic for scrotal swelling, with a mass on R inguinal canal was noted onthe physical exam. S/p liver transplant 05/08/22 S/p liver transplant 05/03/22 S/p umbilical hernia surgery 09/2020 Scrotal swelling started after hernia surgery Back fracture dx today, after fall a few years prior On Tacrolimus, on Bactrim DS one tab 3/week LABS Testicular tumor markers = normal bHCG 05-27-22 = not diagnostic AFP 05-27-22 = 4.2 (<11.0) LD 05-27-22 = 117 (135 - 225 U/L) HISTORY OF PRESENT ILLNESS: Location: scrotum Pain Character: swelling Severity Scale: see X-rays, see lab Associated signs and symptoms: R inguinal mass PAST MEDICAL HISTORY Diagnosis Date Anemia Aneurysm of infrarenal abdominal aorta (HCC) Arthritis Ascites CAD (coronary artery disease) COPD (chronic obstructive pulmonary disease) (HCC) Delayed emergence from general anesthesia Hepatic encephalopathy (HCC) Histoplasmosis Histoplasmosis Hydrothorax Hyperlipidemia Hypertension Liver cirrhosis (HCC) Sarcopenia Thrombocytopenia (HCC) PAST SURGICAL HISTORY Procedure Laterality Date BACK SURGERY HX x2 EGD HERNIA REPAIR HX Left inguinal HERNIA REPAIR HX 09/2020 Umbilical PAST SURGICAL HISTORY OF colonoscopy REVISION OF LUNG blebs removed 1979 from histoplasmosis XCAPSL CTRC RMVL INSJ IO LENS PROSTH W/O ECP Left 10/19/2018 XCAPSL CTRC RMVL INSJ IO LENS PROSTH W/O ECP Right 11/06/2018 Cataract Extraction with PC IOL FAMILY HISTORY Problem Relation Age of Onset other (MVA) Mother 56 Diabetes Father Heart disease Father Heart Attack Father 72 in hospital other (bypass) Father Thyroid Sister Heart Attack Brother Diabetes Brother Hypertension Brother other (Gout) Brother Diabetes Brother other (pneumonia) Maternal Grandmother passed age 80's Heart Attack Maternal Grandfather Diabetes Paternal Grandmother passed age 94 other (lung cancer) Paternal Grandfather Heart disease Paternal Uncle Cancer Paternal Uncle multi type Heart Paternal Uncle Anesthesia Problems No Family History Social History Tobacco Use Smoking status: Some Days Packs/day: 2.00 Years: 41.00 Pack years: 82.00 Types: Cigarettes Start date: 1979 Last attempt to quit: 2019 Years since quittin.2 Smokeless tobacco: Never Vaping Use Vaping Use: Never used Substance Use Topics Alcohol use: Not Currently Comment: none since 2018 Drug use: No MEDICATIONS: Current Outpatient Medications Medication Sig simvastatin (ZOCOR) 20 mg tablet TAKE 1 TABLET BY MOUTH EVERYDAY AT BEDTIME aspirin 81 mg chewable tablet CHEW & SWALLOW 1 TABLET BY MOUTH ONCE DAILY acyclovir (ZOVIRAX) 200 mg capsule TAKE 2 CAPSULES BY MOUTH TWICE A DAY pantoprazole DR (PROTONIX) 40 mg tablet TAKE 1 TABLET BY MOUTH DAILY (6 AM). magnesium oxide (MAG-OX) 400 mg (241.3 mg magnesium) tablet Take 1 tablet by mouth twice daily. tacrolimus IR (PROGRAF) 1 mg capsule Take 1 capsule by mouth twice daily. Take in addition to 0.5 mg capsule for total dose of 1.5 mg twice daily. tacrolimus IR (PROGRAF) 0.5 mg capsule Take 1 capsule by mouth twice daily. Take in addition to 1 mg capsule for total dose of 1.5 mg twice daily. acetaminophen (TYLENOL) 500 mg tablet Take 1 tablet by mouth every 6 hours as needed for pain. lancets (RF nano DELICA PLUS LANCET) 33 gauge Use 1 each as directed to check blood sugar level three times a day blood sugar diagnostic (RF nano VERIO TEST STRIPS) test strip Use 1 each as instructed to check blood sugar level three times a day mycophenolate mofetil (CELLCEPT) 250 mg capsule Take 4 capsules by mouth twice daily. sulfamethoxazole-trimethoprim (BACTRIM DS,SEPTRA DS) 800-160 mg per tablet Take 1 tablet by mouth every Monday,Monday,Monday. carvedilol (COREG) 6.25 mg tablet Take 1 tablet by mouth twice daily. multivit-min/FA/lycopen/lutein (CENTRUM SILVER MEN ORAL) Take 1 tablet by mouth once daily. Current Facility-Administered Medications Medication Dose Route Frequency perflutren lipid microspheres 1.3 mL in NaCl (PF) 0.9% 10 mL injection (DEFINITY) INTRAVENOUS DIRECTED PRN sodium chloride 0.9 % (flush) 10 mL (BD POSIFLUSH) 10 mL INTRAVENOUS DIRECTED PRN ALLERGY: ALLERGIES Allergen Reactions Pregabalin Mental Status Change Lyrica Becomes Manic REVIEW OF SYSTEMS GENERAL: No fever, no fatigue and no weight loss. HEAD & NECK: No headache, no blurred vision and no hearing loss. CARDIOVASCULAR: No chest pain, no palpitations and no leg edema. RESPIRATORY: No cough, wheezing and no shortness of breath. : As indicated in HPI. GI: No epigastric discomfort, no blood in stool and no changes in bowel habits. MUSCLOSKELETAL: No neck pain, no back anin and no joint pain. SKIN: No varicose veins, no rash and no abnormal itching. NEUROLOGICAL: No numbness, no seizures and no tremor. BLOOD: No ekimosis, no hematomas or no bleeding from the gums. PHYSICAL EXAM: GENERAL: Alert, oriented and in no distress. ABDOMEN: Soft, non tender with no masses or organomegaly. No CVA tenderness. HERNIA: Negative EXTREMITIES: No leg edema, No joint swelling GENITALIA: Penis:no lesions, masses, or deformities. Urethral meatus: normal size, no discharge Scrotum: no lesions, cysts, rashes. Testes : Normal Epididymes: Mass on R inguinal canal, tender upon palpation Hydroceles: None Spermatoceles: None Varicoceles: None IMPRESSION: (Diagnostic Possibilities): Here with his -S/p liver transplant 05/08/22 and 05/02/22 -4.0 cm heterogeneous lesion within the R inguinal region, decreased in size from the study which previously measured 5.7 cm -small bilateral epididymal cysts PLAN: (Management Options): Advised to follow up with Dr. Landry for R inguinal lesion, and possible biopsy. Pt and were inagreement. PRN office visit with Urology Medical Decision Making: Problems: Moderate: New problem with uncertain prognosis Data: Unique test result(s) reviewed: 3+ Unique test(s) ordered: 1 Risk: Moderate: Moderate risk from testing/treatment Medical Decision Making Level: 4 - Moderate By signing my name below, Natacha Donohue, attest that this documentation has been prepared under the direction and in the presence of Dr. Castro. Iris Broibalyson Provider Attestation: Sharon Donohue M.D., personally performed the services described in this documentation. All medicalrecord entries made by the scribe were at my direction and in my presence. I have reviewed the chart and discharge instructions (if applicable) and agree that the record reflects my personal performance and is accurate and complete. Sharon Castro M.D. documented in this encounterMarion [facility]04-03-2023 History of Present illness Narrative* Nay Brunson RDMS - 07/04/2022 1:40 PM EDT Radiology Service Progress Note PATIENT NAME: Jordan Aguilar DATE OF SERVICE: July 04, 2022 TIME: 1:40 PM PATIENT IDENTITY VERIFICATION COMPLETED USING TWO (2) IDENTIFIERS: Name and Date of confirmedby patient verbally. FALL SCREENING: Has the patient had 2 falls in the last year or 1 fall with injury or currently using an Ambulatory Assistive Device (Walker, Cane, Wheelchair, Crutches, etc.)? Yes, Patient High Riskfor Falls What interventions were put in place to prevent falls during this visit? [place] Risk Wristband Applied, Instructed Patient to Call for Help if Needed, Offered Assistance with Transfers/Clothing, and Increased Observations by Caregivers PATIENT GENDER DATA: Male PATIENT RELEVANT IMPLANT DATA REVIEWED: Not Applicable RADIOLOGY DEPARTMENT: Ultrasound PERIPHERAL IV DATA: Not applicable SIGNED BY: Nay Brunson RDMS July 04, 2022 1:40 PM documented in this encounterMarion Hospital03-26-2023 Miscellaneous Notes* Addendum Note - Sharon Castro MD - 06/26/2022 3:16 PM EDTAddended by: SHARON CASTRO on: 06/26/2022 03:16 PM Modules accepted: Orders * Addendum Note - Sharon Castro MD - 06/26/2022 3:11 PM EDTAddended by: SHARON CASTRO on: 06/26/2022 03:11 PM Modules accepted: Orders documented in this encounterMarion Hospital03-26-2023 History of Present illness Narrative* Sharon Castro MD - 06/26/2022 2:55 PM EDT Liver Transplant 05-08-22 here for Scrotal Swelling. Mass on R inguinal canal noted on physical exam US scrotum 05/08/22 = patent hepatic vasculature, R posterior perihepatic collection, splenomegaly S/p liver transplant 05/03/22, s/p umbilical hernia surgery 09/2020 Scrotal swelling started after hernia surgery Back fracture dx today, after fall a few years prior On Tacrolimus , on Bactrim DS one tab 3/week Will defer surgical management for mass, due to recent liver transplant surgery. OV in 6 weeks with US scrotum prior Testicular tumor markers blood tests Scrotal US 07-04-22 = bHCG 05-27-22= not diagnostic AFP 05-27-22 = 4.2 (<11.0) LD 05-27-22 = 117 (135 - 225 U/L) Testicular Tumor markers normal, needs consult GS for inguinal petty documented in this encounterMarion Hospital03-17-2023 Miscellaneous Notes* Telephone Encounter - Kat Leal RN - 06/17/2022 3:04 PM EDT I called and notified patient that medication assistance paperwork that was left for me is for Envarsus, which is not a medication he is taking. He stated his understanding. Kat Leal (Cassie) RN, BSN Liver Inspector [employer] documented in this encounterMarion Hospital03-15-2023 History of Present illness Narrative* Gabriel Hilton MD - 06/15/2022 2:56 PM EDT POST LIVER TRANSPLANT FOLLOW UP Jordan Aguilar [id number] Date of Transplant: 05/03/2022 Original liver diagnosis: [place] Explanted liver: [place] Current problems: Mr. Acuña is doing well after transplant. He is tolerating multiple small meals. Having bowel function. Ambulating without difficulty. FK is 9.4 on 05/05 and having minimal tremors. Medication List: Current Outpatient Medications Medication Sig tacrolimus IR (PROGRAF) 1 mg capsule Take 2 capsules by mouth twice daily. aspirin 81 mg chewable tablet Chew & swallow 1 tablet by mouth once daily. acetaminophen (TYLENOL) 500 mg tablet Take 1 tablet by mouth every 6 hours as needed for pain. lancets (RF nano DELICA PLUS LANCET) 33 gauge Use 1 each as directed to check blood sugar level three times a day blood sugar diagnostic (RF nano VERIO TEST STRIPS) test strip Use 1 each as instructed to check blood sugar level three times a day acyclovir (ZOVIRAX) 200 mg capsule Take 2 capsules by mouth twice daily. mycophenolate mofetil (CELLCEPT) 250 mg capsule Take 4 capsules by mouth twice daily. pantoprazole DR (PROTONIX) 40 mg tablet Take 1 tablet by mouth DAILY (6 AM). sulfamethoxazole-trimethoprim (BACTRIM DS,SEPTRA DS) 800-160 mg per tablet Take 1 tablet by mouth every Monday,Monday,Monday. simvastatin (ZOCOR) 20 mg tablet Take 1 tablet by mouth daily at bedtime. carvedilol (COREG) 6.25 mg tablet Take 1 tablet by mouth twice daily. multivit-min/FA/lycopen/lutein (CENTRUM SILVER MEN ORAL) Take 1 tablet by mouth once daily. Current Facility-Administered Medications Medication Dose Route Frequency perflutren lipid microspheres 1.3 mL in NaCl (PF) 0.9% 10 mL injection (DEFINITY) INTRAVENOUS DIRECTED PRN sodium chloride 0.9 % (flush) 10 mL (BD POSIFLUSH) 10 mL INTRAVENOUS DIRECTED PRN Laboratory tests: Hemoglobin (g/dL) Date Value 06/13/2022 11.1 05/17/2021 14.9 Hematocrit (%) Date Value 06/13/2022 35.0 05/17/2021 45.0 WBC (k/uL) Date Value 06/13/2022 6.05 05/17/2021 6.14 Platelet Count (k/uL) Date Value 06/13/2022 138 05/17/2021 83 CMP: Glucose 100 06/13/2022 BUN 18 06/13/2022 Creatinine (POCT) 0.96 06/13/2022 Sodium 141 06/13/2022 Potassium 4.6 06/13/2022 Chloride 106 06/13/2022 CO2 27 06/13/2022 Protein, Total 6.8 06/13/2022 Albumin 3.9 06/13/2022 Calcium 9.2 06/13/2022 Alkaline Phosphatase 134 06/13/2022 Bilirubin, Total 0.4 06/13/2022 AST 25 06/13/2022 ALT 25 06/13/2022 Vitals: BP 128/56 Pulse 74 Temp (Src) 97.4 (Temporal Artery) Resp 18 Ht 6' 2 (1.88m) Wt 206 lb (93.4kg) SpO2 97% BMI 26.44 kg/(m^2). PHYSICAL EXAMINATION: General appearance: In NAD HEENT: NCAT CV: RRR Pulm: non labored breathing GI: abd soft, non distended, non tender. Incision healing well. No hernias Ext: warm, well perfused. Neuro: Aox3 ASSESSMENT: Stable. Continue current treatment course. Recovering well. PLAN: Start magnesium oxide 400 mg Decrease Tacrolimus to 1.5 mg BID Start melatonin 3mg at night. Patient was seen with Dr. Julian Hilton MD documented in this encounterMarion Hospital03-15-2023 Instructions* Patient Instructions* Francois German RN - 06/15/2022 2:53 PM EDT Decrease tacrolimus to 1.5 mg twice daily. Start Magnesium-Oxide 400 mg twice daily. Use melatonin if needed for sleep. Return to liver clinic on July 27 for 3 month follow. documented in this encounterMarion Hospital03-11-2023 Miscellaneous Notes* Telephone Encounter - Sharon Castro MD - 06/11/2022 12:36 AM EST Patient scheduled for his scrotal us on 07/04/22 1:00 PM Seeing him on 07-12-22 documented in this encounterMarion Hospital03-02-2023 Miscellaneous Notes* Telephone Encounter - Kat Leal RN - 06/02/2022 3:51 PM EST I reviewed patient's tacrolimus level with Rebecca Mascorro CNP, who ordered to decrease patient's tacrolimus dose to 2mg BID. I called and reviewed this with patient, who stated his understanding,and will make adjustment with tonight's dose. He will call back with further needs. Patient's request for medication is as follows: Requested Prescriptions Pending Prescriptions Disp Refills tacrolimus IR (PROGRAF) 1 mg capsule 120 capsule 11 Sig: Take 2 capsules by mouth twice daily. Please approve the above prescription(s) to electronically send to pharmacy. Kat Leal RN documented in this encounterMarion Hospital02-28-2023 History of Present illness Narrative* Faustina Leahy APRN.ROMA - 05/31/2022 1:15 PM EST [facility] DIABETES VISIT ALLERGIES Allergen Reactions Pregabalin Mental Status Change Lyrica Becomes Manic Current Outpatient Medications Medication Sig aspirin 81 mg chewable tablet Chew & swallow 1 tablet by mouth once daily. tacrolimus IR (PROGRAF) 1 mg capsule Take 3 capsules by mouth twice daily. acetaminophen (TYLENOL) 500 mg tablet Take 1 tablet by mouth every 6 hours as needed for pain. lancets (ivi.ruTOUCH DELICA PLUS LANCET) 33 gauge Use 1 each as directed to check blood sugar level three times a day blood sugar diagnostic (ivi.ruTOUCH VERIO TEST STRIPS) test strip Use 1 each as instructed to check blood sugar level three times a day acyclovir (ZOVIRAX) 200 mg capsule Take 2 capsules by mouth twice daily. mycophenolate mofetil (CELLCEPT) 250 mg capsule Take 4 capsules by mouth twice daily. pantoprazole DR (PROTONIX) 40 mg tablet Take 1 tablet by mouth DAILY (6 AM). sulfamethoxazole-trimethoprim (BACTRIM DS,SEPTRA DS) 800-160 mg per tablet Take 1 tablet by mouth every Monday,Monday,Monday. simvastatin (ZOCOR) 20 mg tablet Take 1 tablet by mouth daily at bedtime. carvedilol (COREG) 6.25 mg tablet Take 1 tablet by mouth twice daily. multivit-min/FA/lycopen/lutein (CENTRUM SILVER MEN ORAL) Take 1 tablet by mouth once daily. Current Facility-Administered Medications Medication Dose Route Frequency perflutren lipid microspheres 1.3 mL in NaCl (PF) 0.9% 10 mL injection (DEFINITY) INTRAVENOUS DIRECTED PRN sodium chloride 0.9 % (flush) 10 mL (BD POSIFLUSH) 10 mL INTRAVENOUS DIRECTED PRN Immunization History Administered Date(s) Administered COVID-19 booster vaccine, age 12+ yr, bivalent (MODERNA) 04/30/2022 COVID-19 original vaccine, full dose, monovalent (MODERNA) 06/16/2020 07/13/2020 02/18/2021 08/15/2021 COVID-19 vaccine (UNSPECIFIED) 06/16/2020 07/13/2020 02/18/2021 Hepatitis A Adult 09/10/2019 02/26/2020 Hepatitis B Recombinant, adjuvant, adult (2-dose series) 07/03/2018 07/26/2018 Influenza Seasonal Inj Age 3+ 12/28/2017 Influenza Seasonal Inj Quad Age 6 Mo-64 Yrs Pres Free 03/05/2022 Influenza Vaccine, Split-Non Spec 01/17/2017 Pneumococcal-13 Vac Conjugate 09/10/2019 Tdap (Age 7+) 09/10/2019 influenza (ccIIV4) vaccine, age 6+ mo, quadrivalent, PF (FLUCELVAX) 03/02/2020 01/14/2021 Social History Tobacco Use Smoking status: Some Days Packs/day: 2.00 Years: 41.00 Pack years: 82.00 Types: Cigarettes Start date: 1979 Last attempt to quit: 2019 Years since quittin.1 Smokeless tobacco: Never Vaping Use Vaping Use: Never used Substance Use Topics Alcohol use: Not Currently Comment: none since 2018 Drug use: No PAST MEDICAL HISTORY Diagnosis Date Anemia Aneurysm of infrarenal abdominal aorta (HCC) Arthritis Ascites CAD (coronary artery disease) COPD (chronic obstructive pulmonary disease) (HCC) Delayed emergence from general anesthesia Hepatic encephalopathy (HCC) Histoplasmosis Histoplasmosis Hydrothorax Hyperlipidemia Hypertension Liver cirrhosis (HCC) Sarcopenia Thrombocytopenia (HCC) PAST SURGICAL HISTORY Procedure Laterality Date BACK SURGERY HX x2 EGD HERNIA REPAIR HX Left inguinal HERNIA REPAIR HX 09/2020 Umbilical PAST SURGICAL HISTORY OF colonoscopy REVISION OF LUNG blebs removed 1979 from histoplasmosis XCAPSL CTRC RMVL INSJ IO LENS PROSTH W/O ECP Left 10/19/2018 XCAPSL CTRC RMVL INSJ IO LENS PROSTH W/O ECP Right 11/06/2018 Cataract Extraction with PC IOL FAMILY HISTORY Problem Relation Age of Onset Diabetes Father Heart disease Father Heart Attack Father 72 in hospital other (bypass) Father other (MVA) Mother 56 Heart Attack Brother Diabetes Brother Hypertension Brother other (Gout) Brother Thyroid Sister Heart Attack Maternal Grandfather other (pneumonia) Maternal Grandmother passed age 80's other (lung cancer) Paternal Grandfather Diabetes Paternal Grandmother passed age 94 Heart disease Paternal Uncle Cancer Paternal Uncle multi type Heart Paternal Uncle Anesthesia Problems No Family History I reviewed the Knife Setter's notes with this visit for vital signs, current allergies, medications, electronic medical record, lab(s), outside lab(s), and or back office lab(s) results, historyof vaccinations, and chief complaints. I edited the information obtained, as required. HISTORY OF PRESENT ILLNESS Hospital follow- up Jordan Aguilar is a 62 year old male who presents to establish care with Department of Endocrinology to evaluate steroid induced hyperglycemia following liver transplant 05/03/22. Also known history of [place] s/p liver transplant 04/2022, CAD, hepatic encephalopathy, HTN, AAA, COPD, portal hypertensive gastropathy, liver cyst, [place], dyslipidemia Family history of DM: yes, father, 2 brothers Was on Prednisone 5 mg until 2022. Here today with his daughter Patient's last HgA1C was Hemoglobin A1C (%) Date Value 03/04/2019 4.7 Hemoglobin A1C (POCT) (%) Date Value 05/31/2022 4.7 Diet: Number of meals per day: 3 Breakfast: honey nut cheerios, mini ayaka breakfast sandwich- sausage egg, cheese Lunch: meals delivered. Meat loaf, mashed potatoes, cauliflower Dinner: meat, veggie Snack: protein shake Boost 3x/day Drinks: 1 bottle of pepsi/day. [place] juice. Lots of water. Previously drank 3-4 bottles/day Current Medications to manage DM: none MONITORING: He reports checking his glucose 3-4 times a day Meter Download/Log Reviewed: Yes BG Values: Breakfast: 78-132 Lunch: 102-147, once 225 (following ice cream) Dinner: 114-221 Bed-time: 86-256 Hypoglycemia: none Hypoglycemia awareness: never had a low blood sugar OTHER ISSUES: Ophthalmology yearly Neuropathy: yes r/t back pain Exercise: therapy exercises LABS TSH Date Value 04/29/2022 1.480 mIU/L 02/26/2020 0.891 uU/mL 08/14/2019 0.967 uU/mL 05/30/2018 1.780 uU/mL ALT (U/L) Date Value 05/30/2022 17 05/26/2022 19 05/23/2022 19 05/17/2021 15 04/21/2021 21 04/15/2021 36 Potassium (mmol/L) Date Value 05/30/2022 4.4 05/26/2022 4.9 05/17/2021 4.7 04/21/2021 5.1 Creatinine (mg/dL) Date Value 05/30/2022 0.84 05/26/2022 0.92 05/23/2022 0.79 05/17/2021 0.87 04/21/2021 0.83 04/15/2021 0.89 Hemoglobin A1C (%) Date Value 03/04/2019 4.7 08/20/2018 4.8 05/30/2018 4.6 Glucose (mg/dL) Date Value 05/30/2022 126 05/26/2022 108 05/23/2022 102 05/17/2021 119 04/21/2021 95 04/15/2021 88 Calcium (mg/dL) Date Value 05/17/2021 9.4 04/21/2021 8.8 Calcium, Total (mg/dL) Date Value 05/30/2022 9.3 05/26/2022 9.1 Vitamin D 25 Hydroxy (ng/mL) Date Value 05/16/2022 26.7 04/13/2022 40.2 03/30/2021 41.5 10/07/2020 52.6 Lipids: Cholesterol, Total (mg/dL) Date Value 05/16/2022 102 04/29/2022 164 08/14/2019 138 03/04/2019 136 Total Cholesterol, Nonfasting (mg/dL) Date Value 05/30/2018 121 HDL Cholesterol (mg/dL) Date Value 05/16/2022 29 04/29/2022 35 08/14/2019 42 03/04/2019 36 HDL Cholesterol, Nonfasting (mg/dL) Date Value 05/30/2018 33 LDL Cholesterol (mg/dL) Date Value 05/16/2022 48 04/29/2022 106 08/14/2019 80 03/04/2019 83 LDL Cholesterol, Nonfasting (mg/dL) Date Value 05/30/2018 73 Triglyceride (mg/dL) Date Value 05/16/2022 125 04/29/2022 115 08/14/2019 80 03/04/2019 86 Triglycerides, Nonfasting (mg/dL) Date Value 05/30/2018 77 REVIEW OF SYSTEMS General: no fever, chills Eyes: no blurred or double vision Cardiac: denies chest pain Pulmonary:+ dyspnea on exertion GI: denies nausea, vomiting, or bowel changes : denies dysuria or frequency Neuro: + neuropathy Musc: + generalized weakness PHYSICAL EXAMINATION: BP 116/56 Pulse 77 Resp 18 Wt 203 lb (92.1kg) General: Well appearing, alert, in no acute distress, well nourished. + cane Lung: Unlabored on room air Neurological: alert and oriented x 3 IMPRESSION/PLAN Mr. Aguilar is a 62 year old male who presents to the Department of Endocrinology for steroid induced Hyperglycemia. (R73.9, T38.0X5A) Steroid-induced hyperglycemia (primary encounter diagnosis) Comment: HgbA1C 4.7 % Labs: 2022 Cr 0.84 GFR 98 Prednisone stopped May 24 by transplant team. BG are reasonable without medications. Plan: 1) Ok to remain off diabetes medications. I advised that he still monitor BG. He has strong family hx of diabetes in father, 2 brothers. Reviewed dietary intake with him today. 2) monitor BG 2 times daily. Rotating the times of the day. -Hypoglycemia guidelines reviewed -Recommended diet: Low carbohydrate, Low Added Fat, and No Added Salt -Recommended exercise: 150 minutes of exercise per week as goal -Monitor blood glucose 2 times per day. The patient was advised to contact the office if the blood sugar readings are consistently high or if having frequent hypoglycemia. -Driving and Diabetes has been reviewed with the patient BP and lipids under care of PCP Patient to continue to follow up with his Primary Care Provider and with other consultants regarding his other medical problems. RTC PRN Faustina Leahy APRN.CNP Endocrinology & Metabolism [place] documented in this encounterMarion Hospital02-27-2023 Miscellaneous Notes* Telephone Encounter - Diane Vallecillo APRN.CNP - 05/30/2022 8:04 AM EST The following approved medication requests have been transmitted electronically. Requested Prescriptions Signed Prescriptions Disp Refills aspirin 81 mg chewable tablet 30 tablet 2 Sig: Chew & swallow 1 tablet by mouth once daily. Authorizing Provider: DIANE VALLECILLO tacrolimus IR (PROGRAF) 1 mg capsule 180 capsule 11 Sig: Take 3 capsules by mouth twice daily. Authorizing Provider: DIANE VALLECILLO acetaminophen (TYLENOL) 500 mg tablet 50 tablet 0 Sig: Take 1 tablet by mouth every 6 hours as needed for pain. Authorizing Provider: DIANE VALLECILLO lancets (ONETOUCH DELICA PLUS LANCET) 33 gauge 100 Each 2 Sig: Use 1 each as directed to check blood sugar level three times a day Authorizing Provider: DIANE VALLECILLO blood sugar diagnostic (ONETOUCH VERIO TEST STRIPS) test strip 100 Each 2 Sig: Use 1 each as instructed to check blood sugar level three times a day Authorizing Provider: DIANE VALLECILLO acyclovir (ZOVIRAX) 200 mg capsule 120 capsule 1 Sig: Take 2 capsules by mouth twice daily. Authorizing Provider: DIANE VALLECILLO mycophenolate mofetil (CELLCEPT) 250 mg capsule 240 capsule 11 Sig: Take 4 capsules by mouth twice daily. Authorizing Provider: DIANE VALLECILLO pantoprazole DR (PROTONIX) 40 mg tablet 30 tablet 2 Sig: Take 1 tablet by mouth DAILY (6 AM). Authorizing Provider: DIANE VALLECILLO sulfamethoxazole-trimethoprim (BACTRIM DS,SEPTRA DS) 800-160 mg per tablet 12 tablet 11 Sig: Take 1 tablet by mouth every Monday,Monday,Monday. Authorizing Provider: DIANE VALLECILLO APRN.CNP * Telephone Encounter - Francois German RN - 05/27/2022 3:54 PM EST Patient phones requesting prescriptions sent to [facility]. Requested Prescriptions Pending Prescriptions Disp Refills aspirin 81 mg chewable tablet 30 tablet 2 Sig: Chew & swallow 1 tablet by mouth once daily. tacrolimus IR (PROGRAF) 1 mg capsule 180 capsule 11 Sig: Take 3 capsules by mouth twice daily. acetaminophen (TYLENOL) 500 mg tablet 50 tablet 0 Sig: Take 1 tablet by mouth every 6 hours as needed for pain. lancets (HighlightCamUCH DELICA PLUS LANCET) 33 gauge 100 Each 2 Sig: Use 1 each as directed to check blood sugar level three times a day blood sugar diagnostic (HighlightCamUCH VERIO TEST STRIPS) test strip 100 Each 2 Sig: Use 1 each as instructed to check blood sugar level three times a day acyclovir (ZOVIRAX) 200 mg capsule 120 capsule 1 Sig: Take 2 capsules by mouth twice daily. mycophenolate mofetil (CELLCEPT) 250 mg capsule 240 capsule 11 Sig: Take 4 capsules by mouth twice daily. pantoprazole DR (PROTONIX) 40 mg tablet 30 tablet 2 Sig: Take 1 tablet by mouth DAILY (6 AM). sulfamethoxazole-trimethoprim (BACTRIM DS,SEPTRA DS) 800-160 mg per tablet 12 tablet 11 Sig: Take 1 tablet by mouth every Monday,Monday,Monday. NIKHIL Moreland, [facility] Liver Inspector Outside Production * Telephone Encounter - Kenna Green - 05/27/2022 2:47 PM EST Jennyfer/patient's daughter called requesting to switch All of his Medications [facility] to [facility] in [facility] [phone], she states he went to see his PCP yesterday due to his bad back problems he had an x ray and they found a compression fracture, just want to make his Coordinator aware. documented in [place] encounterRachel [place] [id number] Miscellaneous Notes* Result Encounter Note - Francois German RN - 05/27/2022 1:21 PM EST Results reviewed. No change to the plan of care at this time. * Result Encounter Note - Francois German RN - 05/26/2022 1:42 PM EST Results reviewed. No change to the plan of care at this time. documented in this encounterMarion Hospital02-24-2023 Instructions* Patient Instructions* Natacha Tellez - 05/27/2022 12:17 PM EST OV in 6 weeks with US scrotum prior Testicular tumor markers blood tests documented in this encounterMarion Hospital02-24-2023 History of Present illness Narrative* Natacha Tellez - 05/27/2022 11:59 AM EST Jordan Aguilar [address] [place] [address] Mr. Aguilar presents with chief complaints of: Scrotal Swelling. US scrotum 05/08/22 = patent hepatic vasculature, R posterior perihepatic collection, splenomegaly S/p liver transplant 05/03/22, s/p umbilical hernia surgery 09/2020 Scrotal swelling started after hernia surgery Back fracture dx today, after fall a few years prior HISTORY OF PRESENT ILLNESS: Location: scrotum Pain Character: swelling Severity Scale: see X-rays Associated signs and symptoms: scrotal swelling PAST MEDICAL HISTORY Diagnosis Date Anemia Aneurysm of infrarenal abdominal aorta (HCC) Arthritis Ascites CAD (coronary artery disease) COPD (chronic obstructive pulmonary disease) (HCC) Delayed emergence from general anesthesia Hepatic encephalopathy (HCC) Histoplasmosis Histoplasmosis Hydrothorax Hyperlipidemia Hypertension Liver cirrhosis (HCC) Sarcopenia Thrombocytopenia (HCC) PAST SURGICAL HISTORY Procedure Laterality Date BACK SURGERY HX x2 EGD HERNIA REPAIR HX Left inguinal HERNIA REPAIR HX 09/2020 Umbilical PAST SURGICAL HISTORY OF colonoscopy REVISION OF LUNG blebs removed 1979 from histoplasmosis XCAPSL CTRC RMVL INSJ IO LENS PROSTH W/O ECP Left 10/19/2018 XCAPSL CTRC RMVL INSJ IO LENS PROSTH W/O ECP Right 11/06/2018 Cataract Extraction with PC IOL FAMILY HISTORY Problem Relation Age of Onset Diabetes Father Heart disease Father Heart Attack Father 72 in hospital other (bypass) Father other (MVA) Mother 56 Heart Attack Brother Diabetes Brother Hypertension Brother other (Gout) Brother Thyroid Sister Heart Attack Maternal Grandfather other (pneumonia) Maternal Grandmother passed age 80's other (lung cancer) Paternal Grandfather Diabetes Paternal Grandmother passed age 94 Heart disease Paternal Uncle Cancer Paternal Uncle multi type Heart Paternal Uncle Anesthesia Problems No Family History Social History Tobacco Use Smoking status: Some Days Packs/day: 2.00 Years: 41.00 Pack years: 82.00 Types: Cigarettes Start date: 1979 Last attempt to quit: 2019 Years since quittin.1 Smokeless tobacco: Never Vaping Use Vaping Use: Never used Substance Use Topics Alcohol use: Not Currently Comment: none since 2018 Drug use: No MEDICATIONS: Current Outpatient Medications Medication Sig simvastatin (ZOCOR) 20 mg tablet Take 1 tablet by mouth daily at bedtime. aspirin 81 mg chewable tablet Chew & swallow 1 tablet by mouth once daily. tacrolimus IR (PROGRAF) 1 mg capsule Take 3 capsules by mouth twice daily. lancets (ivi.ruTOUCH DELICA PLUS LANCET) 33 gauge Use 1 each as directed to check blood sugar level three times a day blood sugar diagnostic (ivi.ruTOUCH VERIO TEST STRIPS) test strip Use 1 each as instructed to check blood sugar level three times a day acetaminophen (TYLENOL) 500 mg tablet Take 1 tablet by mouth every 6 hours as needed for pain. acyclovir (ZOVIRAX) 200 mg capsule Take 2 capsules by mouth twice daily. mycophenolate mofetil (CELLCEPT) 250 mg capsule Take 4 capsules by mouth twice daily. pantoprazole DR (PROTONIX) 40 mg tablet Take 1 tablet by mouth DAILY (6 AM). carvedilol (COREG) 6.25 mg tablet Take 1 tablet by mouth twice daily. multivit-min/FA/lycopen/lutein (CENTRUM SILVER MEN ORAL) Take 1 tablet by mouth once daily. sulfamethoxazole-trimethoprim (BACTRIM DS,SEPTRA DS) 800-160 mg per tablet Take 1 tablet by mouth every Monday,Monday,Monday. (Patient not taking: Reported on 05/27/2022) Current Facility-Administered Medications Medication Dose Route Frequency perflutren lipid microspheres 1.3 mL in NaCl (PF) 0.9% 10 mL injection (DEFINITY) INTRAVENOUS DIRECTED PRN sodium chloride 0.9 % (flush) 10 mL (BD POSIFLUSH) 10 mL INTRAVENOUS DIRECTED PRN ALLERGY: ALLERGIES Allergen Reactions Pregabalin Mental Status Change Lyrica Becomes Manic REVIEW OF SYSTEMS GENERAL: No fever, no fatigue and no weight loss. HEAD & NECK: No headache, no blurred vision and no hearing loss. CARDIOVASCULAR: No chest pain, no palpitations and no leg edema. RESPIRATORY: No cough, wheezing and no shortness of breath. : As indicated in HPI. GI: No epigastric discomfort, no blood in stool and no changes in bowel habits. MUSCLOSKELETAL: No neck pain, no back anin and no joint pain. SKIN: No varicose veins, no rash and no abnormal itching. NEUROLOGICAL: No numbness, no seizures and no tremor. BLOOD: No ekimosis, no hematomas or no bleeding from the gums. PHYSICAL EXAM: GENERAL: Alert, oriented and in no distress. ABDOMEN: Soft, non tender with no masses or organomegaly. No CVA tenderness. HERNIA: Negative EXTREMITIES: No leg edema, No joint swelling GENITALIA: Penis:no lesions, masses, or deformities. Urethral meatus: normal size, no discharge Scrotum: no lesions, cysts, rashes. Testes : Normal Epididymes: Mass on R inguinal canal Hydroceles: None Spermatoceles: None Varicoceles: None IMPRESSION: (Diagnostic Possibilities): -Scrotal swelling present after hernia repair 09/2020, with pain and difficulty ambulating -Mass on R inguinal canal PLAN: (Management Options): Will defer surgical management for mass, due to recent liver transplant surgery. OV in 6 weeks with US scrotum prior Testicular tumor markers blood tests Medical Decision Making: Problems: Moderate: New problem with uncertain prognosis Data: Unique test result(s) reviewed: 3+ Unique test(s) ordered: 1 Risk: Moderate: Moderate risk from testing/treatment Medical Decision Making Level: 4 - Moderate By signing my name below, I, Natacha Tellez, attest that this documentation has been prepared under the direction and in the presence of Dr. Castro. Iris Broibe Provider Attestation: ISharon M.D., personally performed the services described in this documentation. All medicalrecord entries made by the scribe were at my direction and in my presence. I have reviewed the chart and discharge instructions (if applicable) and agree that the record reflects my personal performance and is accurate and complete. Sharon Castro M.D. documented in this encounterMarion Hospital02-22-2023 History of Present illness Narrative* Lawanda Marie, - 05/25/2022 4:01 PM EST Virtualist Progress Note Triage Call Triage source: Triage Call (Nurse Card Punching Machine Operator, [facility] Triage, [facility] Phone Triage) Was patient downgraded (i.e. disposition other than go to the ED was advised)? Yes Mode of contact (phone call, [employer], [employer], [facility], Skype, other): tele History/Physical Exam: 62 y/o male presents with right scrotal swelling and tenderness for the past 2 month. Occurred after hernia surgery. He had an appt with urology but it was cancelled due to a liver transplant. The swelling is slighly worse, no warmth, fever, or change in urination. Nurse Triage Disposition (If call is from [facility], [facility] nurse triage, or an [facility], the disposition is Go to ED Now ): Go to ED Now (or PCP Triage) Virtualist Recommended Disposition: See Provider > 2 days, rec seeing urology at next available Signed in as Primary Virtualist, Secondary Virtualist, or [facility] Telehealth provider: Secondary SIGNATURE: Lawanda Marie DO PATIENT NAME: Jordan Aguilar DATE: May 25, 2022 documented in this encounterMarion Hospital02-22-2023 Miscellaneous Notes* Telephone Encounter - Lakeisha Sadns RN - 05/25/2022 3:47 PM EST Reason for Call: Scrotum Swelling and Pain Patient call with scrotum pain and swelling which he was scheduled to see Urology for symptom yet he had transplant surgery of the liver. He has some mild changes with increase in size and discomfort. Outcome: GO TO ED NOW recommendation given, yet patient declined. Secondary triage with Dr. Marie recommended visit with Urology within 24 hours. Reviewed care advice and voiced understanding. Conferenced to Appointment center to schedule appointment. Reason for Disposition Scrotum is painful or tender to touch Protocols used: Scrotum [id number] Patient was unable to schedule with appointment center for tomorrow due to other visits, Conferenced to Appointment center to schedule Appointment within 2 days. documented in this encounterMarion Hospital02-22-2023 History of Present illness Narrative* Marlo Alvarado MD - 05/25/2022 2:04 PM EST POST LIVER TRANSPLANT FOLLOW UP Jordan Aguilar [id number] Date of Transplant: 05/03/2022 Original liver diagnosis: [place] 3 weeks post transplant doing very well. Tolerating PO, LFTs stable on a good prograf level. Movingbowels normally. Medication List: Current Outpatient Medications Medication Sig simvastatin (ZOCOR) 20 mg tablet Take 1 tablet by mouth daily at bedtime. aspirin 81 mg chewable tablet Chew & swallow 1 tablet by mouth once daily. tacrolimus IR (PROGRAF) 1 mg capsule Take 3 capsules by mouth twice daily. lancets (ivi.ruTOUCH DELICA PLUS LANCET) 33 gauge Use 1 each as directed to check blood sugar level three times a day blood sugar diagnostic (ONETOUCH VERIO TEST STRIPS) test strip Use 1 each as instructed to check blood sugar level three times a day acetaminophen (TYLENOL) 500 mg tablet Take 1 tablet by mouth every 6 hours as needed for pain. acyclovir (ZOVIRAX) 200 mg capsule Take 2 capsules by mouth twice daily. mycophenolate mofetil (CELLCEPT) 250 mg capsule Take 4 capsules by mouth twice daily. pantoprazole DR (PROTONIX) 40 mg tablet Take 1 tablet by mouth DAILY (6 AM). sulfamethoxazole-trimethoprim (BACTRIM DS,SEPTRA DS) 800-160 mg per tablet Take 1 tablet by mouth every Monday,Monday,Monday. carvedilol (COREG) 6.25 mg tablet Take 1 tablet by mouth twice daily. multivit-min/FA/lycopen/lutein (CENTRUM SILVER MEN ORAL) Take 1 tablet by mouth once daily. Current Facility-Administered Medications Medication Dose Route Frequency perflutren lipid microspheres 1.3 mL in NaCl (PF) 0.9% 10 mL injection (DEFINITY) INTRAVENOUS DIRECTED PRN sodium chloride 0.9 % (flush) 10 mL (BD POSIFLUSH) 10 mL INTRAVENOUS DIRECTED PRN Laboratory tests: reviewed Vitals: BP 100/57 Pulse 80 Temp (Src) 98.9 (Temporal) Resp 18 Ht 6' 1.5 (1.87m) Wt 199 lb (90.3kg) SpO2 99% BMI 25.90 kg/(m^2). PHYSICAL EXAMINATION: General appearance: well appearing, in no acute distress, and alert Skin: no jaundice Head: normal Lungs: normal work of breathing Heart: no tachycardia Abdomen: soft, nt, nd, incisionc c/d/i Extremities: no edema Neuro: CNII-XII grossly intact ASSESSMENT: 62 yo M s/p OLT on 05/03/22 doing very well. PLAN: Removal of turner Can stop nystatin, ursodiol, and prednisone RTC in 3 weeks Marlo Alvarado MD documented in this encounterMarion Hospital02-22-2023 Instructions* Patient Instructions* Francois German RN - 05/25/2022 1:28 PM EST Stop Ursodiol Stop Prednisone Stop Nystatin swish [place] removed today and steri-strips applied Return to clinic on June 15. Watch [employer] for time. documented in this encounterMarion Hospital02-22-2023 Miscellaneous Notes* Result Encounter Note - Francois German RN - 05/25/2022 10:47 AM EST Will review with liver transplant MD in clinic today. * Result Encounter Note - Francois German RN - 2022 10:35 AM EST Results reviewed. No change to the plan of care at this time. * Result Encounter Note - Francois German RN - 05/23/2022 9:05 AM EST Results reviewed. No change to the plan of care at this time. documented in this encounterMarion Hospital02-17-2023 Miscellaneous Notes* Telephone Encounter - Francois German RN - 05/20/2022 3:45 PM EST Patient phones requesting refills as follows: Requested Prescriptions Pending Prescriptions Disp Refills simvastatin (ZOCOR) 20 mg tablet 30 tablet 11 Sig: Take 1 tablet by mouth daily at bedtime. NIKHIL Moreland, [facility] Liver Inspector Outside [employer] * Telephone Encounter - Kenna Jalloh - 05/20/2022 1:23 PM EST Patient has been identified by name and date of : Yes Requested Prescriptions Pending Prescriptions Disp Refills simvastatin (ZOCOR) 20 mg tablet 30 tablet 11 Sig: Take 1 tablet by mouth daily at bedtime. RX INSTRUCTIONS: Patient aware RX will be sent to pharmacy. No need to notify patient. daughter is unsure if he is suppose to be still taking this medication. Kenna Green Fc documented in this encounterMarion Hospital02-15-2023 Instructions* Patient Instructions* Francois German RN - 05/18/2022 3:24 PM EST No changes to medications. Incision looks good. Will remove turner next week. Pathology reviewed. No unexpected findings. Return to clinic on 05/25/22. Watch [employer] for time. documented in this encounterMarion Hospital02-15-2023 History of Present illness Narrative* Diane Vallecillo APRN.ROMA - 05/18/2022 3:03 PM EST POST LIVER TRANSPLANT FOLLOW UP Jordan Aguilar [id number] Date of Transplant:05/03/22 Original liver diagnosis: [place] Explanted liver:[place] Medication List: Current Outpatient Medications Medication Sig aspirin 81 mg chewable tablet Chew & swallow 1 tablet by mouth once daily. tacrolimus IR (PROGRAF) 1 mg capsule Take 3 capsules by mouth twice daily. lancets (HighlightCamUCH DELICA PLUS LANCET) 33 gauge Use 1 each as directed to check blood sugar level three times a day blood sugar diagnostic (ivi.ruTOUCH VERIO TEST STRIPS) test strip Use 1 each as instructed to check blood sugar level three times a day oxyCODONE IR (ROXICODONE) 5 mg immediate release tablet Take 1 tablet by mouth every 6 hours as needed for pain for up to 5 days. ursodiol (ACTIGALL) 300 mg capsule Take 1 capsule by mouth three times daily. acetaminophen (TYLENOL) 500 mg tablet Take 1 tablet by mouth every 6 hours as needed for pain. acyclovir (ZOVIRAX) 200 mg capsule Take 2 capsules by mouth twice daily. predniSONE (DELTASONE) 5 mg tablet Take 4 tablets by mouth once a day 05/09/22- 05/12/22 then take 3 tablets once a day 05/13/22-05/16/22 then take 2 tablets once a day 05/17/22-05/20/22 then take one tablet once a day 05/21/22-05/24/22 mycophenolate mofetil (CELLCEPT) 250 mg capsule Take 4 capsules by mouth twice daily. nystatin (MYCOSTATIN) 100,000 unit/mL suspension Swish and swallow 5 mL by mouth four times daily for [address] (PROTONIX) 40 mg tablet Take 1 tablet by mouth DAILY (6 AM). sulfamethoxazole-trimethoprim (BACTRIM DS,SEPTRA DS) 800-160 mg per tablet Take 1 tablet by mouth every Monday,Monday,Monday. carvedilol (COREG) 6.25 mg tablet Take 1 tablet by mouth twice daily. simvastatin (ZOCOR) 20 mg tablet Take 1 tablet by mouth daily at bedtime. multivit-min/FA/lycopen/lutein (CENTRUM SILVER MEN ORAL) Take 1 tablet by mouth once daily. Current Facility-Administered Medications Medication Dose Route Frequency perflutren lipid microspheres 1.3 mL in NaCl (PF) 0.9% 10 mL injection (DEFINITY) INTRAVENOUS DIRECTED PRN sodium chloride 0.9 % (flush) 10 mL (BD POSIFLUSH) 10 mL INTRAVENOUS DIRECTED PRN Vitals: BP 100/60 Pulse 78 Temp (Src) 97 (Temporal) Resp 18 Ht 6' 1.5 (1.87m) Wt 199 lb (90.3kg) SpO2 99% BMI 25.90 kg/(m^2). PHYSICAL EXAMINATION: General appearance: well appearing, in no acute distress, and alert Skin: skin color, texture, turgor normal, no rashes or lesions Abdomen: soft, ND, NT Turner intact Extremities: Extremities normal. No deformities, edema, or skin discoloration. Good capillary refill. Neuro: Negative. ASSESSMENT: Mr. Aguilar is a 61 y/o male s/p OLT for [place] DBD-OLT, piggyback, PV main to main, d Celiac artery - r RHA/LHA, bile duct to duct, and sprenorenal shunt ligation on 05/03/2022. Patient enrolled in HOPE study, randomized to control group. Due to h/o CAD patient was started on aspirin, betablocker, and statin prior to discharge. He looks great and is feeling well today, he is here for his first posttxp follow up visit. PLAN: - Labs reviewed- liver and kidney function are stable - IS Tacrolimus 3 mg bid, MMF 1 G bid, Pred taper no changes - PATH discussed with patient - RTC next week for staple removal Diane Vallecillo APRN.INVEST[employer]ATION [employer] documented in this encounterMarion Hospital02-14-2023 Miscellaneous Notes* Telephone Encounter - Francois German RN - 05/17/2022 10:07 AM EST Spoke with patient's daughter and reviewed labs. All needed lab work was drawn. I then called the patient who states he has been a little tired , but otherwise doing well. No questions or concerns about meds. Appetite is improving and having normal BM's. Reviewed elevated WBC'sof 18. He denies any fevers. Confirmed appointment for tomorrow afternoon at 1:30 PM. NIKHIL Moreland, [facility] Liver Inspector Outside Production * Telephone Encounter - Kenna Green - 05/16/2022 4:25 PM EST Patient's daughter called/left a message she wants to make sure that he had the correct bloodwork done this morning, requesting a c/b from his Coordinator. documented in this encounterMarion Hospital02-02-2023 History of Present illness Narrative* Re Childress RN - 05/05/2022 8:02 AM EST DONOR ID: [id number] MATCH RUN: [id number] Type of Donor: DBD At risk donor: No Liver pumped: No TRANSPLANT SEROLOGIES: CMV IgG: Donor NEGATIVE/ Recipient NEGATIVE EBV IgG: Donor POSITIVE/ Recipient POSITIVE Donor has tested positive for COVID: No Re Childress RN, BSN, [facility] Liver Inspector Outside [employer] documented in this encounterMarion Hospital01-30-2023 Miscellaneous Notes* Telephone Encounter - Marilyn Lux RN - 05/02/2022 4:52 PM EST Called and informed the patient of a potential liver offer per Dr. Alvarado. Explained to the patient that per Dr. Alvarado the liver offer is from a DBD. The patient acknowledged an understanding and an opportunity was provided to ask questions. The [facility] agreed [facility]. Explained the possibility of a dry run . Instructed the patient to stop eating and drinking at this time. They verbalized understanding. Pt stated has no symptoms and has not come into contact with anyone who has COVID. Plan to pump liver: Yes Organ with risk criteria present No Donor has tested positive for COVID: No Patient has been informed that extra vessel/s may be used for the procedure and may be from a donororgan that has risk factors present for undetected HIV, HBV, and HCV infection. Explained that the donor was tested prior to organ donation, however, there can be a small chance that the test is negative even if the virus is present. The risk of transmission is very low but not zero. For this reason, all recipients are tested for these viruses after transplant. Karnofsky Score: 70% Marilyn Lux RN documented in this encounterMarion Hospital01-27-2023 History of Present illness Narrative* Negar Shane RN - 04/29/2022 8:00 AM EST Radiology Service Progress Note DATE OF SERVICE: April 29, 2022 TIME: 8:05 AM PATIENT WEIGHT: 225 LBS PATIENT IDENTITY VERIFICATION COMPLETED USING TWO (2) STANDARD IDENTIFIERS: Name and Date of confirmed by patient verbally and Name and Date of confirmed by identification band. FALL SCREENING: Has the patient had 2 falls in the last year or 1 fall with injury or currently using an Ambulatory Assistive Device (Walker, Cane, Wheelchair, Crutches, etc.)? No PATIENT GENDER DATA: Male ALLERGIES: Reviewed and unchanged CONTRAST ALLERGY: No EXAM: CT -CONTRAST INDUCED NEPHROPATHY RISK FACTORS: Patient age > 60 years and History of Kidney surgery, Kidney neoplasm, Liver disease, and/or any recent Nephrotoxic Chemotherapy or other Nephrotoxic medications CREATININE: Creatinine Date Value Ref Range Status 04/13/2022 0.83 0.73 - 1.22 mg/dL Final 04/07/2022 0.87 0.73 - 1.22 mg/dL Final 03/29/2022 0.78 0.73 - 1.22 mg/dL Final Estimated Glomerular Filtration Rate Date Value Ref Range Status 04/13/2022 99 >=60 mL/min/1.73m Final Comment: Estimated Glomerular Filtration Rate (eGFR) is calculated using the 2020 CKD-EPI creatinine equation. This equation utilizes serum creatinine, sex, and age as parameters. The creatinine assay has traceable calibration to isotope dilution- mass spectrometry. Refer to KDIGO guidelines for clinical interpretation. In patients with unstable renal function, e.g. those with acute kidney injury, the eGFRmay not accurately reflect actual GFR. eGFR- Date Value Ref Range Status 05/17/2021 >60 Final P.O.C.T. RESULTS: N/A April 29, 2022 TREATMENT: No Hydration needed. IV SITE: Ambulatory: A peripheral IV was started in the Right forearm with a Angio cath: 20 gauge. and A Saline lock was inserted per protocol IV SITE APPEARANCE: Clean,Dry and Intact SIGNATURE: Negar Shane RN PATIENT NAME: Jordan Aguilar DATE: April 29, 2022 TIME: 8:05 AM * Wood Madison RT(R) - 04/29/2022 8:00 AM EST Radiology Service Progress Note PATIENT NAME: Jordan Aguilar DATE OF SERVICE: April 29, 2022 TIME: 8:13 AM PATIENT IDENTITY VERIFICATION COMPLETED USING TWO (2) IDENTIFIERS: Name and Date of confirmedby patient verbally and Name and Date of confirmed by identification band. FALL SCREENING: Has the patient had 2 falls in the last year or 1 fall with injury or currently using an Ambulatory Assistive Device (Walker, Cane, Wheelchair, Crutches, etc.)? No PATIENT GENDER DATA: Male PATIENT RELEVANT IMPLANT DATA REVIEWED: Yes RADIOLOGY DEPARTMENT: CT; Exam(s) Completed: Liver PERIPHERAL IV DATA: Site assessment: Clean,Dry and Intact, Site disposition Discontinued SIGNED BY: RT Mitchell(R) April 29, 2022 8:13 AM documented in this encounterMarion Hospital01-25-2023 Miscellaneous Notes* Telephone Encounter - Zuleyka Jamison RN - 04/27/2022 2:21 PM EST Waitlist HLA Labs (Recur Q3MO): NOW will have this drawn on 04/29/22 AFP (Recur Q3MO) due 06/08/22, Derm due 05/2022/scheduled 07/12/22 CT Liver :04/29/22 dental due: NOW, waiting on his new dental insurance card. He will follow with them today 03/04/22 open right inguinal hernia repair All questions answered. Zuleyka Jamison RN documented in this encounterMarion Hospital01-13-2023 History of Present illness Narrative* Lakshmi Cr DO - 04/15/2022 8:52 AM EST Images from the original note were not included. Respiratory [place] ESTABLISHED PATIENT FOLLOW UP CC: Jordan Aguilar is a 61 year old male here for a follow up appointment. The patient has [place] cirrhosis of the liver, cryptogenic cirrhosis, portal hypertension, splenomegaly with thrombocytopenia. Meld score of 8. The patient underwent an abdominal hernia repair in March 2022. The surgery was performed without difficulty but he is now complaining of RIGHT INGUINAL PAIN AND SWELLING. NEEDS TO SEE GENERAL SURGERY HUSSEIN. From a pulmonary standpoint the patient aerates both lungs with good intensity opf breath sounds with no rales rhonchi or wheezing. I have encouraged the patient to follow up with surgery today. From a pulmonary standpoint the patient can be reevaluated in 6 months. Past Medical History CC: Jordan Aguilar is a 61 year old male here for a follow up appointment . The patient has cirrhosis of the liver and being considered for potential liver transplant in the future. The patient has decompensated [place] cirrhosis with portal hypertension ascites hepatic encephalopathy. From a pulmonary standpoint the patient has moderate pulmonary emphysema despite a normal spirometry. The patient is being considered for abdominal hernia repair in March 2022. The patient has adequate lung function for the planned inguinal herniorrhaphy. Hemoglobin 14.6/hematocrit 45.8 , platelet count 102 k/UL Patient is an ASA 3 physical status classification. The patient is cleared for surgery. Postoperatively if necessary I would recommend an albuterol ipratropium bromide nebulizer 3 times daily until discharged. PRIMARY CARE PHYSICIAN: Jordan Azar MD, MD REVIEW OF OUTSIDE/[facility] RECORDS: SPIROMETRY WITH DILATOR IF OBSTRUCTED ([id number]) - ordered on 02/11/22 No textual results for order. PULMONARY REVIEW OF SYSTEMS: PULM MEDS: spironolactone (ALDACTONE) 100 mg tablet^Take 2 tablets by mouth once daily.^Disp: 360 tablet^Rfl: 3 cholecalciferol (VITAMIN D-3) 50 mcg (2,000 unit) tablet^Take 1 tablet by mouth once daily. with your largest meal^Disp: 100 tablet^Rfl: 3 carvedilol (COREG) 6.25 mg tablet^Take 1 tablet by mouth twice daily.^Disp: 180 tablet^Rfl: 3 rifAXIMin (XIFAXAN) 550 mg tablet^Take 1 tablet by mouth twice daily.^Disp: 60 tablet^Rfl: 11 bumetanide (BUMEX) 2 mg tablet^Take 1 tablet by mouth twice daily.^Disp: 180 tablet^Rfl: 3 vitamin A (AQUASOL A) 10,000 unit capsule^Take 1 capsule by mouth once daily.^Disp: 90 capsule^Rfl:0 zoledronic acid (RECLAST) 5 mg/100 mL pgbk PREMIX piggyback^Inject 100 mL intravenously one time only for 1 dose.^Disp: 100 mL^Rfl: 0 lactulose (DUPHALAC, CONSTULOSE) 20 gram/30 mL solution^Take 30 mL by mouth twice daily.^Disp: 1680mL^Rfl: 11 coenzyme Q10 (COQ-10) 100 mg cap capsule^Take 1 capsule by mouth twice daily.^Disp: 60 capsule^Rfl:11 (Patient taking differently: Take 100 mg by mouth once daily.) simvastatin (ZOCOR) 20 mg tablet^Take 1 tablet by mouth daily at bedtime.^Disp: 30 tablet^Rfl: 11 iron bisgly,ps-FA-B-C#12-succ 65 mg-65 mg -1,000 mcg (24) tab^Take 65 mg by mouth once daily.^Disp:^Rfl: Zinc 50 mg tab^Take 1 tablet by mouth once daily.^Disp: 30 tablet^Rfl: 11 multivit-min/FA/lycopen/lutein (CENTRUM SILVER MEN ORAL)^Take 1 tablet by mouth once daily.^Disp: ^Rfl: ALLERGIES: ALLERGIES Allergen Reactions Pregabalin Mental Status Change Lyrica Becomes Manic Health Risks: Mr. Aguilar is not having pain related to the reason for this visit. SOCIAL HISTORY Tobacco Use: 2 packs/day, for 41 years. Quit 04/03/2019. Types: Cigarettes PAST MEDICAL HISTORY Diagnosis Date Anemia Aneurysm of infrarenal abdominal aorta Arthritis Ascites CAD (coronary artery disease) COPD (chronic obstructive pulmonary disease) (HCC) Delayed emergence from general anesthesia Hepatic encephalopathy Histoplasmosis Histoplasmosis Hydrothorax Hyperlipidemia Hypertension Liver cirrhosis (HCC) Sarcopenia Thrombocytopenia (HCC) PAST SURGICAL HISTORY Procedure Laterality Date BACK SURGERY HX x2 EGD HERNIA REPAIR HX Left inguinal HERNIA REPAIR HX 09/2020 Umbilical PAST SURGICAL HISTORY OF colonoscopy REVISION OF LUNG blebs removed 1979 from histoplasmosis XCAPSL CTRC RMVL INSJ IO LENS PROSTH W/O ECP Left 10/19/2018 XCAPSL CTRC RMVL INSJ IO LENS PROSTH W/O ECP Right 11/06/2018 Cataract Extraction with PC IOL FAMILY HISTORY Problem Relation Age of Onset Diabetes Father Heart disease Father Heart Attack Father 72 in hospital other (bypass) Father other (MVA) Mother 56 Heart Attack Brother Diabetes Brother Hypertension Brother other (Gout) Brother Thyroid Sister Heart Attack Maternal Grandfather other (pneumonia) Maternal Grandmother passed age 80's other (lung cancer) Paternal Grandfather Diabetes Paternal Grandmother passed age 94 Heart disease Paternal Uncle Cancer Paternal Uncle multi type Heart Paternal Uncle Anesthesia Problems No Family History PHYSICAL EXAMINATION: Blood pressure 146/81, pulse 86, temperature 36.1 C (96.9 F), temperature source Temporal, resp. rate 16, weight 102.1 kg (225 lb), SpO2 98 %. GENERAL APPEARANCE: trunchal obesity , alert. INTEGUMENT: skin color, texture, turgor normal, no suspicious rashes or lesions EYES: Anicteric sclera. Pupils are equally round and reactive to light, and extraocular movements are intact. ENT Head: normal Ears: external ears normal, canals clear, TM's normal Nose/Sinuses: negative Mouth: lips, mucosa, and teeth normal. Tongue,oropharynx normal RESPRATORY: lungs clear to auscultation, no wheezing, rales, or rhonchi, Thorax is symmetric with no evidence of paradoxical respiration. .no axillary lymphadenopathy Neck is supple, with normal size, and no thyroid enlargement or mass. CARDIAC: RRR without murmur, gallop, or rubs. No ectopy Peripheral vascular: normal pulses and symmetric in upper and lower extremities. No venous insufficiency GASTROENTEROLOGYI: Abdomen soft, non-tender.rotund. Bowel sounds normal. No masses, organomegaly EXTREMITIES: No deformities, pedal edema, or skin discoloration. MUSCULOSKELETAL; Spine range of motion normal. Muscular strength intact GENITOURINARY: No CVA tenderness NEURO: Gait normal. Motor appears normal. Sensation grossly intact. HEMATOLOGIC/LYMPHATIC/ IMMUNOLOGIC: No evidence of a supra-clavicular, infra- clavicular, or femorallymphadenopathy. PSYCHIATRIC: Mentation and affect normal. Oriented x 3 ASSESSMENT: K75.81, K74.60 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) (primary encounter diagnosis) K76.6, I85.00 Portal hypertension with esophageal varices (HCC) Z76.82 Liver transplant candidate K40.90 Unilateral inguinal hernia without obstruction or gangrene, recurrence not specified J44.9 Chronic obstructive pulmonary disease, unspecified COPD type (HCC) DR LAKSHMI CR 04/15/2022 8:52 AM documented in this encounterMarion [facility]01-11-2023 Miscellaneous Notes* Telephone Encounter - Cynthia Frederick RN - 04/13/2022 4:13 PM EST Attempted to reach the patient at the contact number that they provided [phone] (home) . 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 Failure to have a responsible adult accompany the patient to their procedure appointment prevents the useof sedation or anesthesia for their procedure; and can result in cancellation of the procedure NPO instructions were reviewed. Instructions to contact their primary care provider regarding their medications and which medications to stop in preparation for their procedure Number to call with questions or concerns [phone] Cynthia Frederick RN documented in this encounterMarion Hospital01-11-2023 Instructions* Patient Instructions* Dayna Reyes MD - 04/13/2022 8:50 AM EST Schedule: Scrotal Ultrasound CT Liver Dermatology Lucy Lomax PA-C in [address] Reyes in 6 months Get a COVID-19 bivalent booster documented in this encounterMarion Hospital01-11-2023 History of Present illness Narrative* Dayna Reyes MD - 04/13/2022 8:28 AM EST NAME: Jordan Aguilar [facility] NO: [id number] REFERRING PHYSICIAN: Dayna Reyes PRESENTING COMPLAINT: f/u cirrhosis HPI: Mr. 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 Last seen 11/29/21 Since last seen Worsening ascites, now better Had too much salt over the holidays (ham), now doing better Drinking Boost BID Brain fog is well controlled Increased diuretics S/p inguinal hernia repair Infection-related thrombocytopenia necessitated cancelling surgery, then improved spontaneously ' Eventually underwent unilateral inguinal hernia repair 03/04/22 Rifaximin approved through Medicare Getting intermittent para still New R hydrocele Scrotum is still swollen HCC screening up to date 12/03/21 LVUS 12/03/21 IMPRESSION: PATENT HEPATIC VASCULATURE WITH APPROPRIATELY DIRECTED FLOW. CIRRHOSIS. NO HEPATIC MASS. On Bumex 2mg BID Aldactone 200mg daily (not taking 400mg) REVIEW OF SYSTEMS See HPI Current Outpatient Medications Medication Sig Dispense Refill spironolactone (ALDACTONE) 100 mg tablet Take 2 tablets by mouth once daily. 360 tablet 3 rifAXIMin (XIFAXAN) 550 mg tablet Take 1 tablet by mouth twice daily. 60 tablet 11 bumetanide (BUMEX) 2 mg tablet Take 1 tablet by mouth twice daily. 180 tablet 3 vitamin A (AQUASOL A) 10,000 unit capsule Take 1 capsule by mouth once daily. 90 capsule 0 lactulose (DUPHALAC, CONSTULOSE) 20 gram/30 mL solution Take 30 mL by mouth twice daily. 1680 mL 11 coenzyme Q10 (COQ-10) 100 mg cap capsule Take 1 capsule by mouth twice daily. (Patient taking differently: Take 100 mg by mouth once daily.) 60 capsule 11 simvastatin (ZOCOR) 20 mg tablet Take 1 tablet by mouth daily at bedtime. 30 tablet 11 iron bisgly,ps-FA-B-C#12-succ 65 mg-65 mg -1,000 mcg (24) tab Take 65 mg by mouth once daily. Zinc 50 mg tab Take 1 tablet by mouth once daily. 30 tablet 11 multivit-min/FA/lycopen/lutein (CENTRUM SILVER MEN ORAL) Take 1 tablet by mouth once daily. iv contrast (will be provided with radiology test) CT LIVER W IVCON Inject, intravenously, once for1 dose. No IV access, insert saline lock prior to the beginning of sedation, infusion, injection ofimaging exam. Discontinue saline lock post exam. If Pt. has a central line or IVAD, may access for administration according to line specific nursing protocol. Once exam is complete flush line and de-access according to line specific nursing protocol in the CT contrast administration guidelines link. 1 Each 0 cholecalciferol (VITAMIN D-3) 50 mcg (2,000 unit) tablet Take 1 tablet by mouth once daily. with your largest meal 100 tablet 3 carvedilol (COREG) 6.25 mg tablet Take 1 tablet by mouth twice daily. 180 tablet 3 zoledronic acid (RECLAST) 5 mg/100 mL pgbk PREMIX piggyback Inject 100 mL intravenously one time only for 1 dose. 100 mL 0 Current Facility-Administered Medications Medication Dose Route Frequency Provider Last Rate Last Admin perflutren lipid microspheres 1.3 mL in NaCl (PF) 0.9% 10 mL injection (DEFINITY) INTRAVENOUS DIRECTED PRN Dayna Reyes MD sodium chloride 0.9 % (flush) 10 mL (BD POSIFLUSH) 10 mL INTRAVENOUS DIRECTED PRN Dayna Reyes MD ALLERGIES Allergen Reactions Pregabalin Mental Status Change Lyrica Becomes Manic Social History Tobacco Use Smoking status: Former Packs/day: 2.00 Years: 41.00 Pack years: 82.00 Types: Cigarettes Start date: 1979 Quit date: 2019 Years since quittin.0 Smokeless tobacco: Never Vaping Use Vaping Use: Never used Substance Use Topics Alcohol use: Not Currently Comment: none since 2018 Drug use: No PAST MEDICAL HISTORY Diagnosis Date Anemia Aneurysm of infrarenal abdominal aorta Arthritis Ascites CAD (coronary artery disease) COPD (chronic obstructive pulmonary disease) (HCC) Delayed emergence from general anesthesia Hepatic encephalopathy Histoplasmosis Histoplasmosis Hydrothorax Hyperlipidemia Hypertension Liver cirrhosis (HCC) Sarcopenia Thrombocytopenia (HCC) @SHX@ FAMILY HISTORY Problem Relation Age of Onset Diabetes Father Heart disease Father Heart Attack Father 72 in hospital other (bypass) Father other (MVA) Mother 56 Heart Attack Brother Diabetes Brother Hypertension Brother other (Gout) Brother Thyroid Sister Heart Attack Maternal Grandfather other (pneumonia) Maternal Grandmother passed age 80's other (lung cancer) Paternal Grandfather Diabetes Paternal Grandmother passed age 94 Heart disease Paternal Uncle Cancer Paternal Uncle multi type Heart Paternal Uncle Anesthesia Problems No Family History PHYSICAL EXAM BP 148/73 Pulse 88 Temp (Src) 98.7 (Temporal) Ht 6' 1 (1.85m) Wt 225 lb 6.4 oz (102.2kg) SpO2 97% BMI 29.74 kg/(m^2). General Appearance: Well appearing, alert, in no acute distress, well-hydrated, diffuse moderate sarcopenia Eyes: No icterus Lungs: Breathing comfortably Abdomen: Mildly distended with clinical ascites Extremities: No cyanosis or edema Skin: No jaundice, no spider angiomas, + palmar erythema Neuro:alert, oriented x 3, pleasant and in no acute distress, no asterixis Recent Labs: Hemoglobin (g/dL) Date Value 04/07/2022 13.7 05/17/2021 14.9 Hematocrit (%) Date Value 04/07/2022 42.3 05/17/2021 45.0 WBC (k/uL) Date Value 04/07/2022 5.33 05/17/2021 6.14 Glucose (mg/dL) Date Value 04/07/2022 83 05/17/2021 119 Potassium (mmol/L) Date Value 04/07/2022 4.0 05/17/2021 4.7 Sodium (mmol/L) Date Value 04/07/2022 136 05/17/2021 140 Chloride (mmol/L) Date Value 04/07/2022 103 05/17/2021 106 CO2 (mmol/L) Date Value 04/07/2022 24 05/17/2021 23 Creatinine (mg/dL) Date Value 04/07/2022 0.87 05/17/2021 0.87 BUN (mg/dL) Date Value 04/07/2022 15 05/17/2021 11 Anion Gap (mmol/L) Date Value 04/07/2022 9 05/17/2021 11 Calcium (mg/dL) Date Value 05/17/2021 9.4 Calcium, Total (mg/dL) Date Value 04/07/2022 8.8 Albumin (g/dL) Date Value 04/07/2022 3.5 (L) Bilirubin, Total (mg/dL) Date Value 04/07/2022 1.1 Bilirubin, Conjugated (mg/dL) Date Value 04/07/2022 0.3 (H) Alkaline Phosphatase (U/L) Date Value 04/07/2022 177 (H) AST (U/L) Date Value 04/07/2022 24 ALT (U/L) Date Value 04/07/2022 9 (L) Protein, Total (g/dL) Date Value 04/07/2022 7.0 MELD-Na score: 8 at 04/07/2022 8:59 AM MELD score: 8 at 04/07/2022 8:59 AM Calculated from: Serum Creatinine: 0.87 mg/dL (Using min of 1 mg/dL) at 04/07/2022 8:59 AM Serum Sodium: 136 mmol/L at 04/07/2022 8:59 AM Total Bilirubin: 1.1 mg/dL at 04/07/2022 8:59 AM INR(ratio): 1.1 at 04/07/2022 8:59 AM Age: 61 years Imaging: See above Assessment IMPRESSION Mr. 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 MELD-Na score: 8 at 04/07/2022 8:59 AM MELD score: 8 at 04/07/2022 8:59 AM Calculated from: Serum Creatinine: 0.87 mg/dL (Using min of 1 mg/dL) at 04/07/2022 8:59 AM Serum Sodium: 136 mmol/L at 04/07/2022 8:59 AM Total Bilirubin: 1.1 mg/dL at 04/07/2022 8:59 AM INR(ratio): 1.1 at 04/07/2022 8:59 AM Age: 61 years PLAN -[place]-related cirrhosis: He was listed for OLT on 11/18/19. He consented to HCV viremic transplant on 08/14/19. We have discussed that living donor will be his best option (he has no available donors at this time). He should be considered a high risk due to diffuse CAD (DSE updated September 2021). Continue simvastatin. Will start Coreg 6.25mg BID (he has been off lisinopril now with elevated BP). -Painful inguinal hernia: Now s/p unilateral inguinal hernia repair on 03/[address] withnew heterogeneous right hydrocele, awaiting input from Dr. Landry. Recommend scrotal US. -Thrombocytopenia: Seen by hematology, ?related to viral illness, now improved. -HE and sarcopenia: Continue lactulose BID, counseled to add third dose with early symptoms or constipation, which he is doing. Continue Rifaximin 550mg BID (needs to discuss filling at pharmacy, [employer] priscila was approved). Continue zinc, level was low. We have discussed a high protein diet at length, including protein supplements (increase from BID to TID), and late evening snack. 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 -HHT: s/p 1 thoracentesis. Asymptomatic and not hypoxic, now controlled on diuretics. -Ascites: Uncontrolled on high dose diuretics. He is on Bumex 2mg BID, aldactone 400mg daily (he isonly taking 200mg a day - will check labs today and re-dose). Suspect recent non-adherence to a lowsalt diet. We re-discussed a salt- restricted diet in detail today. Recommend against TIPS in the setting of HE. He undergoes PRN LVP locally at [facility]. -HCC screening / liver cyst surveillance: Up to date via LVUS 12/03/21. Recommend longitudinal screening via imaging and AFP every [address] Liver now as he is awaiting transplant and is ayear out from cross sectional imaging. -EV screening: Small EV on EGD 04/21/21. Recommend annual surveillance EGD, scheduled on 04/20/22. Continue simvastatin. Start Coreg 6.25mg BID. 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 Urine histo Ag negative with stable very small lung nodules. Follow-upwith Dr. Cr in pulmonology is scheduled this month. -Muscle cramps: Resolved, off Taurine. Continue Co-Q-10. -CAD: s/p LHC 10/28/19 with mild/moderate CAD. Per cardiology recommendation is for medical therapy and would not recommend CAD re-vascularization. Updated DSE September 2021. He has a 3.8cm AAA which was stable on CT A/P 04/30/[address] A/P 04/01/22. Continue simvastatin. -Iron deficiency anemia: Resolved, now taking an OTC supplement. Re-check iron studies with next labs. -Dyslipidemia: On Simvastatin. Check lipid panel with next labs. -Vitamin A deficiency: Continue daily replacement therapy, re-check level in 3 months. -Vitamin D deficiency: Level is normal, continue Vitamin D 2,000 units daily. -Osteopenia: DXA with osteopenia 06/18/20. He established in endocrine calcium clinic and is receiving Reclast. -History of adenomatous colonic polyps: Colonoscopy is up to date as of Apr 2020. Recommend surveillance colonoscopy in 5 years (due 2025). -Skin health: FB[facility] up to date 05/17/21 at [facility]. Refer for annual examination. -Immune status: He is immune to HAV/HBV. He completed 4 doses of a COVID-19 Moderna series. Recommended bivalent booster, which he will do locally. Follow up 3 months. Please contact sooner if you have questions or problems develop. I spent a total of 45 minutes on the date of the service which included preparing to see the patient, [id number] patient care, completing clinical documentation, obtaining and/or reviewing separately obtained history, performing a medically appropriate examination, counseling and educating the pat ient/family/caregiver, ordering medications, tests, or procedures, communicating with other HCPs (not separately reported), independently interpreting results (not separately reported), communicatingresults to the patient/family/caregiver, and care coordination (not separately reported). Dayna Reyes MD April 13, 2022 8:28 AM documented in this encounterMarion Hospital01-06-2023 Miscellaneous Notes* Telephone Encounter - Diana Quiroz RN - 04/08/2022 11:23 AM EST Called patient to update him on Dr Joyner message. Patient states he thinks he will need another para in a week or so. He has not been eating as he should during the holidays. He will get his labs done as instructed. He asked about xifaxim which I told him he was approved with [place] through Medicare. I told him to call his pharmacy. Told him to call me if he needed assistance. Diana Quiroz RN April 08, 2022 11:26 AM * Telephone Encounter - Dayna Reyes MD - 04/07/2022 8:58 PM EST Hi Reinier Can you please call patient: Labs look good. How is his ascites? Does he need another paracentesis? Repeat labs when he sees me 04/20. Dr. Landry - CT scan reviewed. New R hydrocele noted. Do you have recommendations? Thank you Dayna Reyes MD MELD-Na score: 8 at 04/07/2022 8:59 AM MELD score: 8 at 04/07/2022 8:59 AM Calculated from: Serum Creatinine: 0.87 mg/dL (Using min of 1 mg/dL) at 04/07/2022 8:59 AM Serum Sodium: 136 mmol/L at 04/07/2022 8:59 AM Total Bilirubin: 1.1 mg/dL at 04/07/2022 8:59 AM INR(ratio): 1.1 at 04/07/2022 8:59 AM Age: 61 years documented in this encounterMarion Hospital12-30-2022 History of Present illness Narrative* Rebecca Diaz RT(R) - 04/01/2022 10:40 AM EST Radiology Service Progress Note PATIENT NAME: Jordan Aguilar DATE OF SERVICE: April 01, 2022 TIME: 9:20 AM PATIENT IDENTITY VERIFICATION COMPLETED USING TWO (2) IDENTIFIERS: Name and Date of confirmedby patient verbally and Name and Date of confirmed by identification band. FALL SCREENING: Has the patient had 2 falls in the last year or 1 fall with injury or currently using an Ambulatory Assistive Device (Walker, Cane, Wheelchair, Crutches, etc.)? No PATIENT GENDER DATA: Male PATIENT RELEVANT IMPLANT DATA REVIEWED: Not Applicable RADIOLOGY DEPARTMENT: CT; Exam(s) Completed: Abdomen/Pelvis PERIPHERAL IV DATA: Not applicable SIGNED BY: RT Neva(Kelsey) April 01, 2022 9:20 AM documented in this encounterMarion Hospital12-20-2022 Miscellaneous Notes* Sedation Documentation - Earnestine Giordano RN - 03/22/2022 9:36 AM EST Needle removed, 4.9L removed THE FOLLOWING WAS EVALUATED Motivation To Learn: Eager Family/Significant Other Support: Moderate - Family present but overwhelmed Cognitive Ability: Alert and oriented Patient Learns Best By: Verbal Instruction The Following Influencing Factors Were Barriers To This Education Session: None The Following Physical Limitations Were Barriers To This Education Session: None Instruction Provided To: Patient and family member Learning Topic: Procedure/Surgery: PARACENTESIS Patient Evaluation: Verbalizes understanding Follow Up Plan: Follow up as needed * Sedation Documentation - Earnestine Giordano RN - 03/22/2022 9:26 AM EST Bottle 3 * Sedation Documentation - Earnestine Giordano RN - 03/22/2022 9:21 AM EST Bottle 2 * Sedation Documentation - Earnestine Giordano RN - 03/22/2022 9:07 AM EST Bottle 1 documented in this encounterMarion Hospital12-15-2022 History of Present illness Narrative* Kulwinder Landry MD - 03/17/2022 2:30 PM EST Mr. Aguilar feels like he developed a seroma since I removed his drain. He had a substantial amountof ascites at the time of his operation which likely contributed. I'm going to get a CT to confirm this is just a seroma and then have him get a paracentesis to help with the pressure. Kulwinder Landry MD I have seen and evaluated the patient and discussed the case with the resident physician. I agree with the assessment and plan as documented in the resident s note. * Nanci Kamara RN - 03/17/2022 1:58 PM EST GENERAL SURGERY CLINIC NOTE Jordan Aguilar [id number] HPI: Jordan Aguilar is a 61 year old here today for a follow up after an open right inguinal hernia repair with mesh on 03/04/22 and drain removal on 03/10/22. Here today with complaints of right scrotal swelling. The scrotal swelling started about 5 days ago. His pain has been increasing over the past 5 days but he is not sure if the size has decreased at all. He put ice on his scrotum last night with minimalrelief. Takes [place] for chronic back pain and he does not feel this is helping his pain. O: BP 141/77 Pulse 80 Temp (!) 35.4 C (95.8 F) (Temporal) Resp 12 Ht 185.4 cm (6' 1 ) Wt 100.2 kg (221 lb) BMI 29.16 kg/m GENERAL: Well-appearing, no distress. CARDIAC: Regular rate and rhythm, no murmurs, rubs or gallops. LUNGS: Clear to auscultation bilaterally. ABDOMEN: Soft, nontender, nondistended. Incision is clean, dry and intact. Significant right scrotal swelling. Tender to palpation. EXTREMITIES: Warm and dry A/P: Jordan Aguilar is a 61 year old here today for a follow up after an open right inguinal hernia repair with mesh on 03/04/22 and ASTER drain removal on 03/10/22. Right scrotal swelling. Plan to get Ct abd/pel to confirm ascites and schedule outpatient paracentesis. Patient seen and plans discussed with staff, Dr. Landry. Nanci Kamara RN [employer]SI PROJECT SURVEYOR Bill Hiker documented in this encounterMarion Hospital12-08-2022 Miscellaneous Notes* Telephone Encounter - Dayna Reyes MD - 03/10/2022 8:24 PM EST Hi Reinier Can you please call patient His labs look great. How is he feeling post-op? How is his ascites? If ok, follow up in Apr as scheduled Thank you Dayna Reyes MD MELD-Na score: 8 at 03/10/2022 10:13 AM MELD score: 8 at 03/10/2022 10:13 AM Calculated from: Serum Creatinine: 0.79 mg/dL (Using min of 1 mg/dL) at 03/10/2022 10:13 AM Serum Sodium: 135 mmol/L at 03/10/2022 10:13 AM Total Bilirubin: 1.3 mg/dL at 03/10/2022 10:13 AM INR(ratio): 1.1 at 03/10/2022 10:13 AM Age: 61 years documented in this encounterMarion Hospital12-08-2022 History of Present illness Narrative* Kulwinder Landry MD - 03/10/2022 11:36 AM EST No problem so far. Scant drain output, removed. Follow-up PRN. Kulwinder Landry MD documented in this encounterMarion Hospital12-08-2022 Nurse Note* Shahram Potter - 03/10/2022 10:46 AM EST What is the reason for your visit today? Post op Who is your referring physician? Dr. Landry Are you having poor oral intake? NO Have you had unintentional weight loss of 15 lbs/7 Kg in the last 3-6 months? NO Bowels: regular Wound: clean & dry Temperature: No Drains: Yes documented in this encounterMarion Hospital12-07-2022 Miscellaneous Notes* Telephone Encounter - Dayna Reyes MD - 03/09/2022 3:57 PM EST Hi Reinier Could you please call to check in on patient I'm glad to see that his surgery went well! Could he please have a set of labs done when he is here tomorrow for post op visit? Thank you Dayna Reyes MD documented in this encounterMarion Hospital12-01-2022 Miscellaneous Notes* Telephone Encounter - Diana Quiroz RN - 03/03/2022 12:57 PM EST Called patient to update him on information from Dr Reyes. He is set for surgery tomorrow. He had no other questions/concerns. Diana Quiroz RN March 03, 2022 12:58 PM * Telephone Encounter - Dayna Reyes MD - 03/03/2022 11:29 AM EST [place] Can you please call patient Surgery is scheduled for tomorrow His labs are looking good on the increased doses of the water pills. His platelets are also good to go for surgery. Zuleyka LONGO - plan is for inguinal hernia repair tomorrow. How is the ascites? Thank you Dayna Reyes MD MELD-Na score: 8 at 03/02/2022 12:10 PM MELD score: 8 at 03/02/2022 12:10 PM Calculated from: Serum Creatinine: 0.76 mg/dL (Using min of 1 mg/dL) at 03/02/2022 12:10 PM Serum Sodium: 138 mmol/L (Using max of 137 mmol/L) at 03/02/2022 12:10 PM Total Bilirubin: 1.2 mg/dL at 03/02/2022 12:10 PM INR(ratio): 1.1 at 03/02/2022 12:10 PM Age: 61 years documented in this encounterMarion Hospital11-30-2022 Miscellaneous Notes* Telephone Encounter - Diana Quiroz RN - 03/02/2022 10:38 AM EST Called patient and spoke to him. I told him I submitted his [facility] re- enrollment forms. I asked if he had done his portion. He said he would do it today. Told him to call for assistance. Diana Quiroz RN March 02, 2022 10:40 AM documented in this encounterMarion Hospital11-23-2022 NoteHNO ID: [id number] Author: Katharine Holder RDMS Service: ? Author Type: Technologist Type: Progress Notes Filed: 02/23/2022 1:15 PM Note Text: Radiology Service Progress Note PATIENT NAME: Jordan Aguilar DATE OF SERVICE: February 23, 2022 TIME: 1:15 PM PATIENT IDENTITY VERIFICATION COMPLETED USING TWO (2) IDENTIFIERS: Name and Date of confirmed by patient verbally and Name and Date of confirmed by identification band. FALL SCREENING: Has the patient had 2 falls in the last year or 1 fall with injury or currently using an Ambulatory Assistive Device (Walker, Cane, Wheelchair, Crutches, etc.)? No PATIENT GENDER DATA: Male PATIENT RELEVANT IMPLANT DATA REVIEWED: Not Applicable RADIOLOGY DEPARTMENT: Ultrasound PERIPHERAL IV DATA: Not applicable SIGNED BY: Katharine Holder RDMS February 23, 2022 1:15 [id number] History of Present illness Narrative* Katharine Holder RDMS - 02/23/2022 1:15 PM EST Radiology Service Progress Note PATIENT NAME: Jordan Aguilar DATE OF SERVICE: February 23, 2022 TIME: 1:15 PM PATIENT IDENTITY VERIFICATION COMPLETED USING TWO (2) IDENTIFIERS: Name and Date of confirmedby patient verbally and Name and Date of confirmed by identification band. FALL SCREENING: Has the patient had 2 falls in the last year or 1 fall with injury or currently using an Ambulatory Assistive Device (Walker, Cane, Wheelchair, Crutches, etc.)? No PATIENT GENDER DATA: Male PATIENT RELEVANT IMPLANT DATA REVIEWED: Not Applicable RADIOLOGY DEPARTMENT: Ultrasound PERIPHERAL IV DATA: Not applicable SIGNED BY: Katharine Holder RDMS February 23, 2022 1:15 PM documented in this encounterMarion Hospital11-22-2022 Miscellaneous Notes* Telephone Encounter - Diana Quiroz RN - 02/22/2022 12:02 PM EST Pt returned my call. He states his ascites is better but he still has fluid. He states he is tryingto reduce his sodium but struggles over the holidays. I told him he needs to have an ascites survey. Call then transferred to [facility] for scheduling. Diana Quiroz RN February 22, 2022 12:05 PM * Telephone Encounter - Diana Quiroz RN - 02/22/2022 9:29 AM EST Called patient to relay information from Dr Reyes. Left VM to return my call. Diana Quiroz RN February 22, 2022 9:29 AM * Telephone Encounter - Dayna Reyes MD - 02/22/2022 8:45 AM EST Hi Reinier Can you please call patient: Labs look good on the increased doses of the water pills. How is his ascites? We are working to reduce his ascites in anticipation of upcoming hernia surgery next week. Please remind of salt restricted diet - more important than ever this week with the holiday. [facility] - Any chance he can get in for an ascites survey this week? Thank you Dayna Reyes MD MELD-Na score: 9 at 02/21/2022 11:04 AM MELD score: 9 at 02/21/2022 11:04 AM Calculated from: Serum Creatinine: 0.91 mg/dL (Using min of 1 mg/dL) at 02/21/2022 11:04 AM Serum Sodium: 137 mmol/L at 02/21/2022 11:04 AM Total Bilirubin: 1.4 mg/dL at 02/21/2022 11:04 AM INR(ratio): 1.1 at 02/21/2022 11:04 AM Age: 61 years documented in this encounterMarion Hospital11-11-2022 History of Present illness Narrative* Lakshmi Cr, DO - 02/11/2022 1:13 PM EST Images from the original note were not included. Respiratory [place] ESTABLISHED PATIENT FOLLOW UP CC: Jordan Aguilar is a 61 year old male here for a follow up appointment . The patient has cirrhosis of the liver and being considered for potential liver transplant in the future. The patient has decompensated [place] cirrhosis with portal hypertension ascites hepatic encephalopathy. From a pulmonary standpoint the patient has moderate pulmonary emphysema despite a normal spirometry. The patient is being considered for abdominal hernia repair in March 2022. The patient has adequate lung function for the planned inguinal herniorrhaphy. Hemoglobin 14.6/hematocrit 45.8 , platelet count 102 k/UL Patient is an ASA 3 physical status classification. The patient is cleared for surgery. Postoperatively if necessary I would recommend an albuterol ipratropium bromide nebulizer 3 times daily until discharged. Feb 11 2022 11:46AM XR CHEST 2V FRONTAL/LAT Lines, tubes, and devices: N/A Lungs and pleura: Bilateral reticular lung opacities probably airway inflammation and scattered atelectasis. No focal consolidations or substantial effusions. Surgical changes of the right side as well as right upper bulla. Left medial bulla. No pneumothorax. Cardiomediastinal silhouette: Cardiac silhouette within normal limits. Other: Mild degenerative changes of the thoracic spine. Latest Reference Range & Units 02/10/22 10:38 WBC 3.70 - 11.00 k/uL 5.37 RBC 4.20 - 6.00 m/uL 4.80 Hemoglobin 13.0 - 17.0 g/dL 14.6 Hematocrit 39.0 - 51.0 % 45.8 Platelet Count 150 - 400 k/uL 102 (L) MCV 80.0 - 100.0 fL 95.4 MCH 26.0 - 34.0 pg 30.4 MCHC 30.5 - 36.0 g/dL 31.9 MPV 9.0 - 12.7 fL 10.5 RDW-CV 11.5 - 15.0 % 14.0 DTYPE Auto Neut% % 67.4 Abs Neut (ANC) 1.45 - 7.50 k/uL 3.62 Lymph% % 19.7 Abs Lymph 1.00 - 4.00 k/uL 1.06 Navarro% % 8.9 Abs Navarro <0.87 k/uL 0.48 Eosin% % 3.0 Abs Eosin <0.46 k/uL 0.16 Baso% % 0.6 Abs Baso <0.11 k/uL 0.03 Immature Gran % % 0.4 IMMATURE GRANS (ABS) <0.10 k/uL <0.03 NRBC /100 WBC 0.0 Absolute nRBC <0.01 k/uL <0.01 ESTABLISHED PATIENT FOLLOW UP CC: Jordan Aguilar is a 61 year old male with cirrhosis of the liver who is being followed by hepatology for potential liver transplant in the future. Patient has decompensated [place] cirrhosis with portal hypertension ascites hepatic encephalopathy. I have been following the patient for several years. From a pulmonary standpoint the patient has moderate pulmonary emphysema despite a normal spirometry. The patient is being considered for abdominal hernia repair in March 2022. From a pulmonary standpoint the patient has a history of multiple apical cyst and spontaneous pneumothoraces in the remote past which required right upper lobectomy at [facility] in [facility] in [address] of the chest from June 2020 demonstrates small subcentimeter pulmonary nodules which are stablesince 2019. No new or enlarging pulmonary nodules noted. Upper lobe predominant centrilobular and paraseptal emphysema stable. Borderline enlarged mediastinal lymphadenopathy. Other comorbidities includes chronic back pain hyperlipidemia and essential hypertension. A CT scan of the chest was performed on 12/29/2021.demonstrating small bilateral pulmonary nodules that are stable in size since 10/07/19 and likely benign.There is also unchanged mild to moderate upper lobe centrilobular and paraseptal emphysema.There is also new evidence of nonspecific groundglass opacities and Mosaic attenuation in the right lower lobe which may be infectious or inflammatory in origin. There is nothing to suggest heart failure and the patient has not smoked for several years. I suspect the groundglass changes are related to a right lower lobe aspiration. The patient has no fever chills or night sweats. He does have a bronchitic cough which is consistent with a low- grade right lower lobe infection. I prescribed a course of Augmentin 875/125 twice daily X 7 days. I will see the patient back in midNovember with a spirometry and chest x-ray. I will cleared the patient for surgery at that time PRIMARY CARE PHYSICIAN: Jordan Azar MD, MD REVIEW OF OUTSIDE/[facility] RECORDS: SPIROMETRY WITH DILATOR IF OBSTRUCTED PRE-BRONCH POST-BRONCH Pred LLN ULN Actual %Pred Actual %Chng SPIROMETRY FVC (L) 5.09 3.85 6.34 5.31 104 5.50 3 FEV1 (L) 3.88 2.89 4.80 3.35 86 3.66 9 FEV1/FVC 0.76 0.64 0.87 0.63 82 0.67 5 FEF25 (L/sec) 6.37 7.02 10 FEF50 (L/sec) 4.92 2.80 7.04 2.16 43 3.44 59 FEF75 (L/sec) 0.93 0.37 2.22 0.46 49 0.70 51 PCQ00-14 (L/sec) 3.07 1.46 5.27 1.40 45 2.17 54 PEF L/s (L/sec) 9.80 7.26 12.35 7.58 77 7.82 3 FIVC (L) 5.16 5.39 4 FIF50 (L/sec) 4.27 3.58 -16 PIF (L/sec) 4.43 4.02 -9 Time (sec) 11.84 12.52 5 ROHINI (L) 0.15 0.13 -14 FET PEF (sec) 0.09 0.10 15 PULMONARY REVIEW OF SYSTEMS: PULM MEDS: bumetanide (BUMEX) 1 mg tablet^Take 2 pills in the morning and 1 pill in the afternoon^Disp: 270 tablet^Rfl: 3 spironolactone (ALDACTONE) 100 mg tablet^Take 3 tablets by mouth once daily.^Disp: 270 tablet^Rfl: 3 fluticasone (FLONASE) 50 mcg/actuation nasal spray^Use 1-2 Sprays in each nostril once daily.^Disp:1 Each^Rfl: 3 cholecalciferol (VITAMIN D-3) 50 mcg (2,000 unit) tablet^Take 1 tablet by mouth once daily. with your largest meal^Disp: 100 tablet^Rfl: 3 lactulose (DUPHALAC, CONSTULOSE) 20 gram/30 mL solution^Take 30 mL by mouth twice daily.^Disp: 1680mL^Rfl: 11 rifAXIMin (XIFAXAN) 550 mg tablet^Take 1 tablet by mouth twice daily.^Disp: 60 tablet^Rfl: 11 HYDROcodone-Acetaminophen (NORCO) 7.5-325 mg per tablet^Take 1 tablet by mouth every 8 hours as needed for pain.^Disp: ^Rfl: lisinopril (ZESTRIL, PRINIVIL) 20 mg tablet^Take 20 mg by mouth once daily. ^Disp: ^Rfl: Taurine 500 mg cap^Take 1 capsule by mouth twice daily.^Disp: 60 capsule^Rfl: 11 coenzyme Q10 (COQ-10) 100 mg cap capsule^Take 1 capsule by mouth twice daily.^Disp: 60 capsule^Rfl:11 (Patient taking differently: Take 100 mg by mouth once daily.) simvastatin (ZOCOR) 20 mg tablet^Take 1 tablet by mouth daily at bedtime.^Disp: 30 tablet^Rfl: 11 iron bisgly,ps-FA-B-C#12-succ 65 mg-65 mg -1,000 mcg (24) tab^Take 65 mg by mouth once daily.^Disp:^Rfl: Zinc 50 mg tab^Take 1 tablet by mouth once daily.^Disp: 30 tablet^Rfl: 11 multivit-min/FA/lycopen/lutein (CENTRUM SILVER MEN ORAL)^Take 1 tablet by mouth once daily.^Disp: ^Rfl: amitriptyline (ELAVIL) 100 mg tablet^Take 100 mg by mouth daily at bedtime. ^Disp: ^Rfl: zoledronic acid (RECLAST) 5 mg/100 mL pgbk PREMIX piggyback^Inject 100 mL intravenously one time only for 1 dose.^Disp: 100 mL^Rfl: 0 ALLERGIES: ALLERGIES Allergen Reactions Pregabalin Mental Status Change Lyrica Becomes Manic Health Risks: Mr. Aguilar is not having pain related to the reason for this visit. SOCIAL HISTORY Tobacco Use: 2 packs/day, for 41 years. Quit 04/03/2019. Types: Cigarettes PAST MEDICAL HISTORY Diagnosis Date Anemia Aneurysm of infrarenal abdominal aorta Arthritis Ascites CAD (coronary artery disease) COPD (chronic obstructive pulmonary disease) (HCC) Delayed emergence from general anesthesia Hepatic encephalopathy Histoplasmosis Histoplasmosis Hydrothorax Hyperlipidemia Hypertension Liver cirrhosis (HCC) Sarcopenia Thrombocytopenia (HCC) PAST SURGICAL HISTORY Procedure Laterality Date BACK SURGERY HX x2 EGD HERNIA REPAIR HX Left inguinal HERNIA REPAIR HX 09/2020 Umbilical PAST SURGICAL HISTORY OF colonoscopy REVISION OF LUNG blebs removed 1979 from histoplasmosis XCAPSL CTRC RMVL INSJ IO LENS PROSTH W/O ECP Left 10/19/2018 XCAPSL CTRC RMVL INSJ IO LENS PROSTH W/O ECP Right 11/06/2018 Cataract Extraction with PC IOL FAMILY HISTORY Problem Relation Age of Onset Diabetes Father Heart disease Father Heart Attack Father 72 in hospital other (bypass) Father other (MVA) Mother 56 Heart Attack Brother Diabetes Brother Hypertension Brother other (Gout) Brother Thyroid Sister Heart Attack Maternal Grandfather other (pneumonia) Maternal Grandmother passed age 80's other (lung cancer) Paternal Grandfather Diabetes Paternal Grandmother passed age 94 Heart disease Paternal Uncle Cancer Paternal Uncle multi type Heart Paternal Uncle Anesthesia Problems No Family History PHYSICAL EXAMINATION: BP 123/71 Pulse 76 Temp 36.3 C (97.3 F) Resp 18 Ht 185.4 cm (6' 1 ) Wt 102 kg (224 lb 13.9 oz) SpO2 98% BMI 29.67 kg/m GENERAL APPEARANCE: alert, in no acute distress, well-hydrated, well nourished INTEGUMENT: skin color, texture, turgor normal, no suspicious rashes or lesions EYES: Anicteric sclera. Pupils are equally round and reactive to light, and extraocular movements are intact. ENT Head: normal Ears: external ears normal, canals clear, TM's normal Nose/Sinuses: negative Mouth: lips, mucosa, and teeth normal. Tongue,oropharynx normal RESPRATORY: lungs clear to auscultation, no wheezing, rales, or rhonchi, Thorax is symmetric with no evidence of paradoxical respiration. no axillary lymphadenopathy Neck is supple, with normal size, and no thyroid enlargement or mass. CARDIAC: RRR without murmur, gallop, or rubs. No ectopy Peripheral vascular: normal pulses and symmetric in upper and lower extremities. No venous insufficiency GASTROENTEROLOGYI: Abdomen soft, non-tender. Bowel sounds normal. No masses, organomegaly EXTREMITIES: No deformities, pedal edema, or skin discoloration. MUSCULOSKELETAL; Spine range of motion normal. Muscular strength intact GENITOURINARY: No CVA tenderness NEURO: Gait normal. Motor appears normal. Sensation grossly intact. HEMATOLOGIC/LYMPHATIC/ IMMUNOLOGIC: No evidence of a supra-clavicular, infra- clavicular, or femorallymphadenopathy. PSYCHIATRIC: Mentation and affect normal. 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) J43.2 Centrilobular emphysema (HCC) DR LAKSHMI CR 02/11/2022 1:13 PM documented in this encounterMarion Hospital11-11-2022 History of Present illness Narrative* Catrachito Odell RRT - 02/11/2022 12:45 PM EST PULM FUNCTION SMARTBLOCK: Provider: Lakshmi Cr DO Spirometry w/BD: 1 documented in this encounterMarion Hospital11-10-2022 History and physical note * Venkata Kennedy APRN.CNP - 02/10/2022 2:50 PM EST HISTORY AND PHYSICAL EXAMINATION SERVICE DATE: 02/10/2022 SERVICE TIME: 2:20 PM PRIMARY CARE PHYSICIAN: Jordan Azar MD, MD REASON FOR VISIT: Jordan Aguilar is a 61 year old male who is scheduled for HERNIORRHAPHY INGUINAL ELECTIVE ADULT REDUCIBLE on 03/04/2022 at [facility] at the request of Dr. Kulwinder Landry for consultation. My final recommendation will be communicated back to the requesting physician by way of shared medical record or letter. 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 Hepatic Encephalopathy Iron Deficiency Anemia Due to Chronic Blood Loss Liver Transplant Candidate Abdominal Aortic Aneurysm (Aaa) Without Rupture Lung Nodules Hypergammaglobulinemia History of Colonic Polyps Age-Related Osteoporosis Without Current Pathological Fracture Unilateral Inguinal Hernia Without Obstruction Or Gangrene Portal Hypertension With Esophageal Varices (Hcc) Muscle Cramp Appointment Cancelled Copd (Chronic Obstructive Pulmonary Disease) (Hcc) Anemia Thrombocytopenia (Hcc) Cad (Coronary Artery Disease) Nicotine use disorder, F17.2 Cirrhosis of Liver With Ascites (Hcc) Subjective CHIEF COMPLAINT: Pre-op examination; Unilateral inguinal hernia without obstruction or gangrene HPI: Patient is a 61 year old male presenting to [facility]; scheduled for HERNIORRHAPHY INGUINAL ELECTIVE ADULT REDUCIBLE. Patient has c/o unilateral inguinal hernia without obstruction or gangrene. Symptoms started several months ago. He has associated pain/discomfort. Patient denies recent fevers, chills, unexplained weight loss. The above surgery was recommended; patient has elected to proceed. PAST MEDICAL HISTORY Diagnosis Date Anemia Aneurysm of infrarenal abdominal aorta Arthritis Ascites CAD (coronary artery disease) COPD (chronic obstructive pulmonary disease) (HCC) Delayed emergence from general anesthesia Hepatic encephalopathy Histoplasmosis Histoplasmosis Hydrothorax Hyperlipidemia Hypertension Liver cirrhosis (HCC) Sarcopenia Thrombocytopenia (HCC) PAST SURGICAL HISTORY Procedure Laterality Date BACK SURGERY HX x2 EGD HERNIA REPAIR HX Left inguinal HERNIA REPAIR HX 09/2020 Umbilical PAST SURGICAL HISTORY OF colonoscopy REVISION OF LUNG blebs removed 1979 from histoplasmosis XCAPSL CTRC RMVL INSJ IO LENS PROSTH W/O ECP Left 10/19/2018 XCAPSL CTRC RMVL INSJ IO LENS PROSTH W/O ECP Right 11/06/2018 Cataract Extraction with PC IOL FAMILY HISTORY Problem Relation Age of Onset Diabetes Father Heart disease Father Heart Attack Father 72 in hospital other (bypass) Father other (MVA) Mother 56 Heart Attack Brother Diabetes Brother Hypertension Brother other (Gout) Brother Thyroid Sister Heart Attack Maternal Grandfather other (pneumonia) Maternal Grandmother passed age 80's other (lung cancer) Paternal Grandfather Diabetes Paternal Grandmother passed age 94 Heart disease Paternal Uncle Cancer Paternal Uncle multi type Heart Paternal Uncle Anesthesia Problems No Family History SOCIAL HISTORY: Social History Tobacco Use Smoking status: Former Packs/day: 2.00 Years: 41.00 Pack years: 82.00 Types: Cigarettes Start date: 1979 Quit date: 2019 Years since quittin.8 Smokeless tobacco: Never Vaping Use Vaping Use: Never used Substance Use Topics Alcohol use: Not Currently Comment: none since 2019 Drug use: No MEDICATIONS: Prior to Admission medications as of 02/10/22 1423 Medication Sig Last Dose Taking fluticasone (FLONASE) 50 mcg/actuation nasal spray Use 1-2 Sprays in each nostril once daily. Taking Yes bumetanide (BUMEX) 1 mg tablet Take 1 tablet by mouth twice daily. Taking Yes spironolactone (ALDACTONE) 100 mg tablet Take 2 tablets by mouth once daily. Taking Yes cholecalciferol (VITAMIN D-3) 50 mcg (2,000 unit) tablet Take 1 tablet by mouth once daily. with your largest meal Taking Yes lactulose (DUPHALAC, CONSTULOSE) 20 gram/30 mL solution Take 30 mL by mouth twice daily. Taking Yes rifAXIMin (XIFAXAN) 550 mg tablet Take 1 tablet by mouth twice daily. Taking Yes HYDROcodone-Acetaminophen (NORCO) 7.5-325 mg per tablet Take 1 tablet by mouth every 8 hours as needed for pain. Taking Yes lisinopril (ZESTRIL, PRINIVIL) 20 mg tablet Take 20 mg by mouth once daily. Taking Yes Taurine 500 mg cap Take 1 capsule by mouth twice daily. Taking Yes coenzyme Q10 (COQ-10) 100 mg cap capsule Take 1 capsule by mouth twice daily. Patient taking differently: Take 100 mg by mouth once daily. Taking Yes simvastatin (ZOCOR) 20 mg tablet Take 1 tablet by mouth daily at bedtime. Taking Yes iron bisgly,ps-FA-B-C#12-succ 65 mg-65 mg -1,000 mcg (24) tab Take 65 mg by mouth once daily. Taking Yes Zinc 50 mg tab Take 1 tablet by mouth once daily. Taking Yes multivit-min/FA/lycopen/lutein (CENTRUM SILVER MEN ORAL) Take 1 tablet by mouth once daily. Taking Yes amitriptyline (ELAVIL) 100 mg tablet Take 100 mg by mouth daily at bedtime. Taking Yes zoledronic acid (RECLAST) 5 mg/100 mL pgbk PREMIX piggyback Inject 100 mL intravenously one time only for 1 dose. No medication comments found. CURRENT ALLERGIES: ALLERGIES Allergen Reactions Pregabalin Mental Status Change Lyrica Becomes Manic COVID VACCINATION STATUS: Fully vaccinated REVIEW OF SYSTEMS: PAIN ASSESSMENT: Pain Pain Level: 7 Pain Location: Groin Description: Burning;Aching Duration Units: Months Frequency: Continuous Intervention/Comfort measure: Medication General: No weight loss, malaise or fevers. Neuro: Negative for seizures, strokes. Respiratory: + COPD. H/o pulmonary histoplasmosis. Negative for Current cough, Dyspnea, Pneumonia within 6 weeks (date), URI < 2 weeks Cardiovascular: + HTN, HLD, CAD. Negative for DVT/PE, DE, Cardiac surgery or stents. Denies currentchest pain, palpitations, fluttering. GI: + Liver cirrhosis. Negative for Nausea, Vomiting, Abdominal pain : No history of dysuria, frequency or incontinence,, stones or chronic kidney disease Endocrine: No history of diabetes. Has not taken steroids within the past 30 days. No history of endocrinological symptoms or problems. Hematology: + Thrombocytopenia. Oncology: No history of CA metastasis, chemo within 30 days, or radiotherapy within 90 days. Has not lost 10% of body wt in 6 months. No history of oncological symptoms or problems. Psych: No history of psychiatric symptoms or problems. Musculoskeletal: + Back pain (lower). Skin: Negative for lesions, rash and itching. Objective PHYSICAL EXAM: VITALS: BP 126/73 Pulse 70 Temp (Src) 98.1 (Temporal) Resp 18 Ht 6' 1 (1.85m) Wt 225 lb 12.8 oz (102.4kg) SpO2 97% BMI 29.80 kg/(m^2). General: Alert and oriented, No acute distress. Body mass index is 29.79 kg/m . Skin: Normal color, no rash, no lesions. HEENT: EOM, pupils equal, round and reactive. Cardiovascular: Normal S1 & S2, no rubs, murmurs or gallops. No JVD. Pulse regular. Lungs: Normal breath sounds, no wheezes or crackles. Abdomen: Distended, Positive bowel sounds Extremities: Joint tenderness. Neurological: Normal cognition and motor skills. Pulses: Carotid and radial pulses normal +2. Diagnostic tests reviewed for today's visit: Lab Value Units Date High Low HB 14.6 g/dL 02/10/2022 17.0 13.0 HCT 45.8 % 02/10/2022 51.0 39.0 WBC 5.37 k/uL 02/10/2022 11.00 3.70 PLT 102 k/uL 02/10/2022 400 150 NA 139 mmol/L 01/27/2022 144 136 K 3.9 mmol/L 01/27/2022 5.1 3.7 GLUC 101 mg/dL 01/27/2022 99 74 BUN 13 mg/dL 01/27/2022 24 9 CREAT 0.80 mg/dL 01/27/2022 1.22 0.73 PTSEC 10.9 sec 02/10/2022 13.0 9.7 INR 1.1 no uni* 02/10/2022 1.3 0.9 APTT 28.5 sec 02/10/2022 32.4 23.0 ALT 13 U/L 01/27/2022 54 10 AST 29 U/L 01/27/2022 40 14 TBILI 1.0 mg/dL 01/27/2022 1.3 0.2 TSH No results within date range. Lab Value Units Date High Low HCGQT No results within date range. UHCG No results within date range. HCG, BODY* No results within date range. Lab Value Units Date High Low ABORHD No results within date range. ABSCREEN No results within date range. Hemoglobin A1C (%) Date Value 03/04/2019 4.7 08/20/2018 4.8 05/30/2018 4.6 PENDING ECG 02/10/22 Pending final reading Diagnosis: NORMAL SINUS RHYTHM NORMAL ECG Stress Echo 09/13/21 DOBUTAMINE STRESS ECHO Stress protocol consisted of dobutamine up to 50 mcg/kg/min . Rest HR 63 bpm. Peak HR 141 bpm. (89 % MPHR) Rest BP 127 mmHg/71 mmHg. Peak BP 150 mmHg/68 mmHg. The left ventricular cavity size is decreased with stress. Rest Stress TR velocity 230.4 cm/s 331.0 cm/s CONCLUSIONS: - Exam indication: Preop Liver Tx - The dobutamine stress echo was negative for ischemia at 89 % of MPHR. - The left ventricle is normal in size. Left ventricular systolic function is normal. EF = 55 5% (2D biplane) - The right ventricle is normal in size. Right ventricular systolic function is normal. - The left atrial cavity is severely dilated. - There are no significant valvular abnormalities. - Exam was compared with the prior echocardiographic exam performed on 09/16/2020; similar findings. Cardiac Cath 10/25/19 Impression:Left dominant circulation. Chronic occlusion of a small non-dominant RCA that is supplied by right to right and left to right collaterals. Otherwise mostly mild to moderate coronary disease in the LAD and large dominant LCx, with moderate disease involving only the distal portions of those vessels. Recommended Treatment: Medical Therapy. Plan: Continue work-up for liver transplantation. Would not recommend coronary revascularization atthis time. Optimize medical management of coronary disease and risk factors. Assessment/Plan Essential hypertension Stable on Lisinopril 20 mg daily. BP today 126/73. Dyslipidemia Stable on Simvastatin 20 mg daily. CAD (coronary artery disease) Patient had a cardiac cath 10/25/19 which showed - Left dominant circulation. Chronic occlusion of asmall non-dominant RCA that is supplied by right to right and left to right collaterals. Otherwise mostly mild to moderate coronary disease in the LAD and large dominant LCx, with moderate disease involving only the distal portions of those vessels. Patient has been evaluated by Cardiology, most recent visit 12/31/[address] Nieto. Patient denies recent chest pain, palpitations, shortness of breath. COPD (chronic obstructive pulmonary disease) (HCC) No current medications or inhalers. Patient follows with Pulmonary, is scheduled for a pre-op evaluation with Dr. Cr on 02/11/22. Histoplasmosis H/o pulmonary histoplasmosis s/p remote RUL bullectomy. Patient follows with Pulmonary, is scheduled for a pre-op evaluation with Dr. Cr on 02/11/22. Cirrhosis of liver with ascites (HCC) Stable on Bumetanide 1 mg twice daily, Rifaximin 500 mg twice daily, Spironolactone 200 mg daily, and Lactulose twice daily. Patient follows with Gastroenterology, most recent visit 11/29/[address] Reyes. Per note, His cirrhosis is c/b portal HTN ( diuretic-refractory ascites, edema, splenomegaly, thrombocytopenia, HE, PHG, and sarcopenia). Patient states he has not required a paracentesis since about May 2021. He had an ultrasound performed today to survey ascites. Portal hypertension with esophageal varices (HCC) EGD 04/21/21 showed - Small (< 5 mm) esophageal varices, portal hypertensive gastropathy. Patient follows with Gastroenterology, most recent visit 11/29/[address] Reyes. Thrombocytopenia (HCC) Patient follows with Hematology, most recent visit 12/08/[address] Mejia. Per note, Assessment and Plan: Jordan Aguilar is a 61 year old male who presented for thrombocytopenia. Has known [place] liver cirrhosis with baseline platelet count around [...] - platelet 102 k/uL. Stable, at baseline. METS: Walk a block or two on level ground (2.75 METs) Do yardwork, such as raking leaves, weeding,or pushing a power mower (4.50 METs) Patient denies any chest pain or undue shortness of breath with the above physical activity. ASA Class: 3 ANESTHESIA FINDINGS: Intubation History: No history of difficult intubation Significant Anesthesia Considerations: Slow emergence. Patient denies post-op nausea/vomiting, life-threatening reactions to anesthesia. Airway Exam: General: Normal appearance. Body mass index is 29.79 kg/m . Mallampati Score is CLASS III ULBT: Unable to perform (edentulous). Neck: Normal appearance and function, Distance from hyoid to mentum during neck extension is at least 3 finger breaths Mouth: Normal tongue size and Mouth opening greater than 2 finger breaths Dentition: Edentulous Airway History: No abnormal airway history STOP BANG Score: Criteria: Hypertension Age over 50 (61 year old) Male gender Score = 3 PLAN This patient is optimally prepared for surgery pending LABS and EKG. CONSULTS: The following consults have been initiated at this time: Pulmonary - Patient has a pre-op evaluation with Dr. Cr on 02/11/22. The Following Tests/Procedures Have Been Initiated: Orders placed by surgeon's office: CBC, PT/INR, APTT, TYPE + SCREEN, ECG Planned Anesthetic: Per anesthesia choice Instructions Given to Patient: Instructions located in the after visit summary. Patient given verbal and written preop instructions and voices comprehension and compliance. SIGNATURE: Venkata Kennedy APRN.CNP PATIENT NAME: Jordan Aguilar DATE: February 10, 2022 TIME: 3:07 PM documented in this encounterMarion [facility]11-10-2022 Instructions* Patient Instructions* Venkata Kennedy APRN.CNP - 02/10/2022 2:38 PM EST PATIENT PREOPERATIVE INSTRUCTIONS Kulwinder Landry MD has scheduled you for your procedure at this surgery center: [facility] [place] Scheduling Office: [phone] --[address] [place] [address]. Please read below carefully for your personalized instructions. Dietary Restrictions: - Nothing to eat or drink after midnight except for a sip of water with approved medications. Medications: Unless instructed differently below, stay on all of your medications until your surgery. Approved medications to take the morning of surgery with a sip of water: Rifaximin (Xifaxan). * DO NOT take Lisinopril morning of or night prior to surgery. - Your pain medication may cause thinning of your blood. Please see directions for Blood Thinning Medications. If you take any medications for erectile dysfunction-Cialis (Tadalafil), Levitra, Staxyn (Vardenafil) Viagra (Sildenenafil please do not take these for 48 hours before surgery. If you start any new medications after today's visit, please contact the surgeon's office. Blood Thinning Medications: - Stop NSAIDS (Ibuprofen, Advil, Aleve, Motrin, Celebrex, Mobic, etc.) 7 days before surgery, as directed by your surgeon. - Stop Aspirin 7 days before surgery, as directed by your surgeon. - Stop Vitamin E, ALL multi-vitamins, herbals and dietary supplements 7 days before surgery. Important Reminders: - Candy, mints, and tobacco products are NOT permitted the morning of surgery. - Hearing aids, dentures and glasses may be worn the morning of surgery. - NO jewelry, body piercings, makeup, hairpins or contacts are to be worn the day of surgery. If you develop symptoms such as a fever, cold, or flu, or have other changes to your health within TWO DAYS of scheduled surgery or the morning of surgery, please contact the surgery center above. Personal Belongings: -Please have photo ID and insurance cards. -If you do not have a copy of advance directives on file with us, please bring a copy with you on the day of surgery. - Leave ALL valuables and money at home or with family members. For Outpatient Procedures: - YOU MUST HAVE A RESPONSIBLE PRODUCTIVITY ENGINEER TAKE YOU HOME. A DJANGO DEVELOPER OR SOLIDS CONTROL TECHNICIAN CANNOT BE MADE A RESPONSIBLE PRODUCTIVITY ENGINEER. - We recommend that a responsible person stays with you overnight to take care of you. - You cannot stay in a hotel alone after outpatient surgery. You will not be permitted to have yoursurgery, if you do not have someone to take care of you. Arrival Time for Surgery: - To obtain your arrival time for surgery, call your physician's office the day before your surgery. - If your surgery is scheduled for Monday, call the Monday before. Your surgeon s maintenance scheduler will tell you what time to call the office. - If you have not reached the departmental maintenance scheduler by 5 P.M., call [phone] after 5 P.M. the day before your surgery. Please be aware that emergency situations arise, which may delay or change your surgical time. If this happens, we will notify you as soon as possible and regret any inconvenience. If you already have an Advance Directive, please fax a copy to [phone] or email to for it to be added to your chart. If you do not have an Advance Directive, you can find the appropriate form and more information at [email or web address]. We recommend that youcomplete the Advance Directive form found on the website and bring it with you the day of your surgery. It can be witnessed and scanned into your chart that day. Venkata Kennedy APRN.ROMA documented in this encounterMarion Hospital11-10-2022 History of Present illness Narrative* Kulwinder Landry MD - 02/10/2022 1:06 PM EST Mr Domenico's platelets are improved and ascites is optimized at this point. Plan for repair in March. Kulwinder Landry MD documented in this encounterMarion Hospital11-10-2022 Nurse Note* Trina Brandt Ma - 02/10/2022 12:39 PM EST What is the reason for your visit today? est Who is your referring physician? Are you having poor oral intake? NO Have you had unintentional weight loss of 15 lbs/7 Kg in the last 3-6 months? NO Bowels: regular Wound: clean & dry Temperature: No Drains: No documented in this encounterMarion Hospital10-13-2022 History of Present illness Narrative* Lakshmi Cr DO - 01/13/2022 2:16 PM EDT Images from the original note were not included. Respiratory [place] ESTABLISHED PATIENT FOLLOW UP CC: Jordan Aguilar is a 61 year old male with cirrhosis of the liver who is being followed by hepatology for potential liver transplant in the future. Patient has decompensated [place] cirrhosis with portal hypertension ascites hepatic encephalopathy. I have been following the patient for several years. From a pulmonary standpoint the patient has moderate pulmonary emphysema despite a normal spirometry. The patient is being considered for abdominal hernia repair in March 2022. From a pulmonary standpoint the patient has a history of multiple apical cyst and spontaneous pneumothoraces in the remote past which required right upper lobectomy at [facility] in [facility] in [address] of the chest from June 2020 demonstrates small subcentimeter pulmonary nodules which are stablesince 2019. No new or enlarging pulmonary nodules noted. Upper lobe predominant centrilobular and paraseptal emphysema stable. Borderline enlarged mediastinal lymphadenopathy. Other comorbidities includes chronic back pain hyperlipidemia and essential hypertension. A CT scan of the chest was performed on 12/29/2021.demonstrating small bilateral pulmonary nodules that are stable in size since 10/07/19 and likely benign.There is also unchanged mild to moderate upper lobe centrilobular and paraseptal emphysema.There is also new evidence of nonspecific groundglass opacities and Mosaic attenuation in the right lower lobe which may be infectious or inflammatory in origin. There is nothing to suggest heart failure and the patient has not smoked for several years. I suspect the groundglass changes are related to a right lower lobe aspiration. The patient has no fever chills or night sweats. He does have a bronchitic cough which is consistent with a low- grade right lower lobe infection. I prescribed a course of Augmentin 875/125 twice daily X 7 days. I will see the patient back in [facility] with a spirometry and chest x-ray. I will cleared the patient for surgery at that time PRIMARY CARE PHYSICIAN: Jordan Azar MD, MD REVIEW OF OUTSIDE/[facility] RECORDS: SPIROMETRY BASELINE ONLY ([id number]) - ordered on 06/04/19 [facility] [address] [place] [address] Test Date: 2019-08-14 Pat Name: JORDAN AGUILAR Department: Room: Gender: Male Student Ambassador: Gina RissaPrisca : 1960 Requested By: Order Number: [id number] Reading MD: Dr. Daren Hampton MD Interpretive Statements The exhaled (FVC) and (FEV1) spirometry maneuver meets ATS/ERS acceptability and repeatability standards.The inspired (FIVC) spirometry maneuver is less than the FVC maneuver.//AG IMPRESSION: Spirometry is normal. Electronically Signed On 08-14-2019 12:35:27 EDT by Fellow Gagan Rueda MD Electronically Signed On 08-14-2019 1 5:28:[address] Daren Hampton MD David LLN Pred ULN % FVC L 4.91 3.94 5.17 6.41 95.0 FEV1 L 3.23 2.98 3.96 4.88 81.6 FEV1/FVC % 66 65 77 87 85.5 PEF L/s 9.78 7.43 9.97 12.50 98.1 FEF50% L/s 2.56 2.31 4.99 7.66 51.4 FIF50% L/s 4.81 FE%FIF % 53 FIVC L 4.57 GIG74-68% L/s 1.50 1.58 3.21 5.43 46.7 XRQ279% sec 13.48 FETPEF sec 0.05 VBe%FV % 2 VBEex L 0.10 FIVC/FVC % 93 ----- ----- ----- ----- ----- ----- ----- ----- ----- ----- PULMONARY REVIEW OF SYSTEMS: PULM MEDS: bumetanide (BUMEX) 1 mg tablet^Take 1 tablet by mouth twice daily.^Disp: 180 tablet^Rfl: 3 spironolactone (ALDACTONE) 100 mg tablet^Take 2 tablets by mouth once daily.^Disp: 180 tablet^Rfl: 3 cholecalciferol (VITAMIN D-3) 50 mcg (2,000 unit) tablet^Take 1 tablet by mouth once daily. with your largest meal^Disp: 100 tablet^Rfl: 3 lactulose (DUPHALAC, CONSTULOSE) 20 gram/30 mL solution^Take 30 mL by mouth twice daily.^Disp: 1680mL^Rfl: 11 rifAXIMin (XIFAXAN) 550 mg tablet^Take 1 tablet by mouth twice daily.^Disp: 60 tablet^Rfl: 11 HYDROcodone-Acetaminophen (NORCO) 7.5-325 mg per tablet^Take 1 tablet by mouth every 8 hours as needed for pain.^Disp: ^Rfl: lisinopril (ZESTRIL, PRINIVIL) 20 mg tablet^Take 20 mg by mouth once daily. ^Disp: ^Rfl: Taurine 500 mg cap^Take 1 capsule by mouth twice daily.^Disp: 60 capsule^Rfl: 11 coenzyme Q10 (COQ-10) 100 mg cap capsule^Take 1 capsule by mouth twice daily.^Disp: 60 capsule^Rfl:11 (Patient taking differently: Take 100 mg by mouth once daily.) simvastatin (ZOCOR) 20 mg tablet^Take 1 tablet by mouth daily at bedtime.^Disp: 30 tablet^Rfl: 11 iron bisgly,ps-FA-B-C#12-succ 65 mg-65 mg -1,000 mcg (24) tab^Take 65 mg by mouth once daily.^Disp:^Rfl: Zinc 50 mg tab^Take 1 tablet by mouth once daily.^Disp: 30 tablet^Rfl: 11 multivit-min/FA/lycopen/lutein (CENTRUM SILVER MEN ORAL)^Take 1 tablet by mouth once daily.^Disp: ^Rfl: amitriptyline (ELAVIL) 100 mg tablet^Take 100 mg by mouth daily at bedtime. ^Disp: ^Rfl: amoxicillin-clavulanic acid (AUGMENTIN) 875-125 mg per tablet^Take 1 tablet by mouth every 12 hoursfor 7 days.^Disp: 14 tablet^Rfl: 0 fluticasone (FLONASE) 50 mcg/actuation nasal spray^Use 1-2 Sprays in each nostril once daily.^Disp:1 Each^Rfl: 3 zoledronic acid (RECLAST) 5 mg/100 mL pgbk PREMIX piggyback^Inject 100 mL intravenously one time only for 1 dose.^Disp: 100 mL^Rfl: 0 ALLERGIES: ALLERGIES Allergen Reactions Pregabalin Mental Status Change Lyrica Becomes Manic Health Risks: Mr. Aguilar is not having pain related to the reason for this visit. SOCIAL HISTORY Tobacco Use: 2 packs/day, for 41 years. Quit 04/03/2019. Types: Cigarettes PAST MEDICAL HISTORY Diagnosis Date Anemia Aneurysm of infrarenal abdominal aorta Arthritis Ascites CAD (coronary artery disease) COPD (chronic obstructive pulmonary disease) (HCC) Hepatic encephalopathy Histoplasmosis Histoplasmosis Hydrothorax Hyperlipidemia Hypertension Liver cirrhosis (HCC) Sarcopenia Thrombocytopenia (HCC) PAST SURGICAL HISTORY Procedure Laterality Date BACK SURGERY HX x2 EGD HERNIA REPAIR HX Left inguinal HERNIA REPAIR HX 09/2020 Umbilical PAST SURGICAL HISTORY OF colonoscopy REVISION OF LUNG blebs removed 1979 from histoplasmosis XCAPSL CTRC RMVL INSJ IO LENS PROSTH W/O ECP Left 10/19/2018 XCAPSL CTRC RMVL INSJ IO LENS PROSTH W/O ECP Right 11/06/2018 Cataract Extraction with PC IOL FAMILY HISTORY Problem Relation Age of Onset Diabetes Father Heart disease Father Heart Attack Father 72 in hospital other (bypass) Father other (MVA) Mother 56 Heart Attack Brother Diabetes Brother Hypertension Brother other (Gout) Brother Thyroid Sister Heart Attack Maternal Grandfather other (pneumonia) Maternal Grandmother passed age 80's other (lung cancer) Paternal Grandfather Diabetes Paternal Grandmother passed age 94 Heart disease Paternal Uncle Cancer Paternal Uncle multi type Heart Paternal Uncle Anesthesia Problems No Family History PHYSICAL EXAMINATION: BP 130/69 Pulse 73 Temp 37 C (98.6 F) Resp 18 Ht 185.4 cm (6' 1 ) Wt 97.5 kg (215 lb) SpO2 98% BMI 28.37 kg/m GENERAL APPEARANCE: alert, in no acute distress, well-hydrated, well nourished INTEGUMENT: skin color, texture, turgor normal, no suspicious rashes or lesions EYES: Anicteric sclera. Pupils are equally round and reactive to light, and extraocular movements are intact. ENT Head: normal Ears: external ears normal, canals clear, TM's normal Nose/Sinuses: negative Mouth: lips, mucosa, and teeth normal. Tongue,oropharynx normal RESPRATORY: lungs clear to auscultation, no wheezing, rales, or rhonchi, Thorax is symmetric with no evidence of paradoxical respiration. . .no axillary lymphadenopathy Neck is supple, with normal size, and no thyroid enlargement or mass. CARDIAC: RRR without murmur, gallop, or rubs. No ectopy Peripheral vascular: normal pulses and symmetric in upper and lower extremities. No venous insufficiency GASTROENTEROLOGYI: right inguinal hernia Abdomen soft, non-tender. Bowel sounds normal. No masses, organomegaly EXTREMITIES: No deformities, pedal edema, or skin discoloration. MUSCULOSKELETAL; Spine range of motion normal. Muscular strength intact GENITOURINARY: No CVA tenderness NEURO: Gait normal. Motor appears normal. Sensation grossly intact. HEMATOLOGIC/LYMPHATIC/ IMMUNOLOGIC: No evidence of a supra-clavicular, infra- clavicular, or femorallymphadenopathy. No ecchymosis. PSYCHIATRIC: Mentation and affect normal. Oriented x 3 ASSESSMENT: J18.9 Pneumonia of right lower lobe due to infectious organism (primary encounter diagnosis) J31.[address] LAKSHMI CR 01/13/2022 2:17 PM documented in this encounterMarion Hospital09-28-2022 History of Present illness Narrative* RT Jada(R) - 12/29/2021 9:30 AM EDT Radiology Service Progress Note PATIENT NAME: Jordan Aguilar DATE OF SERVICE: December 29, 2021 TIME: 9:36 AM PATIENT IDENTITY VERIFICATION COMPLETED USING TWO (2) IDENTIFIERS: Name and Date of confirmedby patient verbally and Name and Date of confirmed by identification band. FALL SCREENING: Has the patient had 2 falls in the last year or 1 fall with injury or currently using an Ambulatory Assistive Device (Walker, Cane, Wheelchair, Crutches, etc.)? No PATIENT GENDER DATA: Male PATIENT RELEVANT IMPLANT DATA REVIEWED: Yes RADIOLOGY DEPARTMENT: CT; Exam(s) Completed: Chest PERIPHERAL IV DATA: Not applicable SIGNED BY: RT Jada(R) December 29, 2021 9:36 AM documented in this encounterMarion Hospital09-07-2022 History of Present illness Narrative* Ivette Mejia MD - 12/08/2021 1:13 PM EDT Images from the original note were not included. [facility] HEMATOLOGY I had the pleasure of seeing [facility] at [facility], 2021 I was asked by Dayna Reyes MDto see Jordan Aguilar for the following thrombocytopenia HPI: Jordan Aguilar is a 61 year old male with history of [place] cirrhosis. His cirrhosis is c/b portalHTN, splenomegaly, thrombocytopenia, HE, PHG, and sarcopenia. Pmhx also includes metabolic syndrome(HTN, dyslipidemia, centripetal adiposity), CAD, pulmonary histoplasmosis (s/p remote RUL bullectomy), chronic back pain, iron deficiency anemia, hernia repair (inguinal & umbilical). He is in need of another hernia surgery. In early November, he developed viral symptoms (cough, fever, low appetite, neg COVID x 3). He was scheduled for hernia surgery but this was cancelled due to low plt. Platelet michael was 18K. PCP gave him some prednisone but he only took 3 days of prednisone He was admitted briefly No significant bleeding/bruising (other than IV placement). No bloody stool or bloody urine No medications given to improve platelet count during admission This was his first episode of very low plt he is aware of On liver transplant list No prior autoimmune disease, no family history of autoimmune disease Coags WNL Spleen 16cm Hemolysis labs negative during November Has dark skin but iron labs and prior HFE gene testing did not suggest hereditary hemochromatosis. Currently back to baseline PAST MEDICAL HISTORY Diagnosis Date Anemia Aneurysm of infrarenal abdominal aorta (HCC) Arthritis Ascites CAD (coronary artery disease) COPD (chronic obstructive pulmonary disease) (HCC) Hepatic encephalopathy (HCC) Histoplasmosis Histoplasmosis Hydrothorax Hyperlipidemia Hypertension Liver cirrhosis (HCC) Sarcopenia Thrombocytopenia (HCC) PAST SURGICAL HISTORY Procedure Laterality Date BACK SURGERY HX x2 EGD HERNIA REPAIR HX Left inguinal HERNIA REPAIR HX 09/2020 Umbilical PAST SURGICAL HISTORY OF colonoscopy REVISION OF LUNG blebs removed 1979 from histoplasmosis XCAPSL CTRC RMVL INSJ IO LENS PROSTH W/O ECP Left 10/19/2018 XCAPSL CTRC RMVL INSJ IO LENS PROSTH W/O ECP Right 11/06/2018 Cataract Extraction with PC IOL FAMILY HISTORY Problem Relation Age of Onset Diabetes Father Heart disease Father Heart Attack Father 72 in hospital other (bypass) Father other (MVA) Mother 56 Heart Attack Brother Diabetes Brother Hypertension Brother other (Gout) Brother Thyroid Sister Heart Attack Maternal Grandfather other (pneumonia) Maternal Grandmother passed age 80's other (lung cancer) Paternal Grandfather Diabetes Paternal Grandmother passed age 94 Heart disease Paternal Uncle Cancer Paternal Uncle multi type Heart Paternal Uncle Anesthesia Problems No Family History Social History Tobacco Use Smoking status: Former Packs/day: 2.00 Years: 41.00 Pack years: 82.00 Types: Cigarettes Start date: 1979 Quit date: 2019 Years since quittin.6 Smokeless tobacco: Never Vaping Use Vaping Use: Never used Substance Use Topics Alcohol use: Not Currently Comment: none since 2018 Drug use: No Allergies: Pregabalin Current Medications: bumetanide (BUMEX) 1 mg tablet^Take 1 tablet in the morning and 1/2 a tablet (0.5mg) in the afternoon.^Disp: 135 tablet^Rfl: 3 spironolactone (ALDACTONE) 100 mg tablet^Take 2 tablets by mouth once daily.^Disp: 180 tablet^Rfl: 3 cholecalciferol (VITAMIN D-3) 50 mcg (2,000 unit) tablet^Take 1 tablet by mouth once daily. with your largest meal^Disp: 100 tablet^Rfl: 3 zoledronic acid (RECLAST) 5 mg/100 mL pgbk PREMIX piggyback^Inject 100 mL intravenously one time only for 1 dose.^Disp: 100 mL^Rfl: 0 lactulose (DUPHALAC, CONSTULOSE) 20 gram/30 mL solution^Take 30 mL by mouth twice daily.^Disp: 1680mL^Rfl: 11 rifAXIMin (XIFAXAN) 550 mg tablet^Take 1 tablet by mouth twice daily.^Disp: 60 tablet^Rfl: 11 HYDROcodone-Acetaminophen (NORCO) 7.5-325 mg per tablet^Take 1 tablet by mouth every 8 hours as needed for pain.^Disp: ^Rfl: lisinopril (ZESTRIL, PRINIVIL) 20 mg tablet^Take 20 mg by mouth once daily. ^Disp: ^Rfl: Taurine 500 mg cap^Take 1 capsule by mouth twice daily.^Disp: 60 capsule^Rfl: 11 coenzyme Q10 (COQ-10) 100 mg cap capsule^Take 1 capsule by mouth twice daily.^Disp: 60 capsule^Rfl:11 (Patient taking differently: Take 100 mg by mouth once daily.) simvastatin (ZOCOR) 20 mg tablet^Take 1 tablet by mouth daily at bedtime.^Disp: 30 tablet^Rfl: 11 iron bisgly,ps-FA-B-C#12-succ 65 mg-65 mg -1,000 mcg (24) tab^Take 65 mg by mouth once daily.^Disp:^Rfl: Zinc 50 mg tab^Take 1 tablet by mouth once daily.^Disp: 30 tablet^Rfl: 11 multivit-min/FA/lycopen/lutein (CENTRUM SILVER MEN ORAL)^Take 1 tablet by mouth once daily.^Disp: ^Rfl: amitriptyline (ELAVIL) 100 mg tablet^Take 100 mg by mouth daily at bedtime. ^Disp: ^Rfl: REVIEW OF SYSTEMS 10 out of 14 systems were reviewed and negative other than what is noted in HPI Objective VITALS: BP 130/76 Pulse 77 Temp 36.7 C (98.1 F) (Oral) Resp 18 Ht 187 cm (6' 1.62 ) Wt 95.7 kg (211 lb) SpO2 97% BMI 27.37 kg/m GEN APPEARANCE: alert and oriented, no acute distress, temporal wasting HEENT: edentulous, normocephalic, no evidence of trauma, mucous membranes moist RESP: breathing comfortably on room air EXT: no peripheral edema SKIN: bronze color, no ulcerations, rashes, bruises, petechiae or purpura; many hypopigmented lesions on arms LYMPH: no palpable cervical, supraclavicular, axillary, or inguinal adenopathy NEURO: normal gait, no gross motor or sensory deficits PSYCH: normal affect Pertinent Labs: Component Latest Ref Rng & Units 11/11/2021 11/12/2021 11/13/2021 11/26/2021 11/29/2021 12/01/2021 WBC 3.70 - 11.00 k/uL 5.98 5.70 3.33 (L) 4.83 4.70 5.04 RBC 4.20 - 6.00 m/uL 4.76 4.39 4.06 (L) 4.50 4.41 4.54 Hemoglobin 13.0 - 17.0 g/dL 14.8 13.5 12.6 (L) 13.9 13.7 14.0 Hematocrit 39.0 - 51.0 % 46.1 41.4 38.1 (L) 42.2 41.6 42.8 MCV 80.0 - 100.0 fL 96.8 94.3 93.8 93.8 94.3 94.3 MCH 26.0 - 34.0 pg 31.1 30.8 31.0 30.9 31.1 30.8 MCHC 30.5 - 36.0 g/dL 32.1 32.6 33.1 32.9 32.9 32.7 RDW-CV 11.5 - 15.0 % 15.7 (H) 15.2 (H) 15.0 14.8 14.7 14.8 Platelet Count 150 - 400 k/uL 18 (L) 26 (L) 22 (L) 123 (L) 109 (L) 107 (L) MPV 9.0 - 12.7 fL 13.6 (H) 10.8 11.4 11.2 Neut% % 74.0 72.8 65.2 62.6 66.9 69.8 Abs Neut (ANC) 1.45 - 7.50 k/uL 4.42 4.15 2.17 3.02 3.14 3.52 Lymph% % 15.7 17.7 24.0 18.6 19.4 17.1 Abs Lymph 1.00 - 4.00 k/uL 0.94 (L) 1.01 0.80 (L) 0.90 (L) 0.91 (L) 0.86 (L) Navarro% % 7.0 7.2 8.1 12.6 10.6 9.9 Abs Navarro <0.87 k/uL 0.42 0.41 0.27 0.61 0.50 0.50 Eosin% % 2.3 1.1 1.5 5.0 2.3 2.2 Abs Eosin <0.46 k/uL 0.14 0.06 0.05 0.24 0.11 0.11 Baso% % 0.5 0.5 0.6 0.6 0.4 0.6 Abs Baso <0.11 k/uL 0.03 0.03 <0.03 0.03 <0.03 0.03 Immature Gran % % 0.5 0.7 0.6 0.6 0.4 0.4 IMMATURE GRANS (ABS) <0.10 k/uL 0.03 0.04 <0.03 0.03 <0.03 <0.03 NRBC /100 WBC 0.0 0.0 0.0 0.0 0.0 0.0 Absolute nRBC <0.01 k/uL <0.01 <0.01 <0.01 <0.01 <0.01 <0.01 DTYPE Auto Auto Auto Auto Auto Auto Protein, Total 6.3 - 8.0 g/dL 7.5 Albumin 3.9 - 4.9 g/dL 3.5 (L) Calcium 8.5 - 10.2 mg/dL 9.2 Bilirubin, Total 0.2 - 1.3 mg/dL 1.3 Alkaline Phosphatase 38 - 113 U/L 189 (H) AST 14 - 40 U/L 29 ALT 10 - 54 U/L 15 Glucose 74 - 99 mg/dL 96 BUN 9 - 24 mg/dL 13 Creatinine 0.73 - 1.22 mg/dL 0.77 Sodium 136 - 144 mmol/L 136 Potassium 3.7 - 5.1 mmol/L 4.8 Chloride 97 - 105 mmol/L 103 CO2 22 - 30 mmol/L 25 Anion Gap 9 - 18 mmol/L 8 (L) eGFR >=60 mL/min/1.73m 101 PT Sec 9.7 - 13.0 sec 11.7 PT INR 0.9 - 1.3 1.1 LD 135 - 225 U/L 166 Haptoglobin 31 - 238 mg/dL 95 Pertinent Imagin12/03/21 Liver US Spleen: Craniocaudal length 16 cm, enlarged. There are no splenic lesions. Assessment and Plan: Jordan Aguilar is a 61 year old male who presented for thrombocytopenia. Has known [place] liver cirrhosis with baseline platelet count around [...] back as needed if unexpected cytopenias return. Total time of this visit, including time spent [id number] with the patient and/or via video/audio, and also in preparing for today's visit for medical decision making, documentation, and discussionwith providers involved with the care of the patient was 40 minutes. Greater than 50% of total timewas spent in counseling and/or coordination of care. Please feel free to contact me with any questions Ivette Mejia MD Will send copies to referring provider by EMR or by fax documented in this encounterMarion Hospital09-07-2022 Nurse Note* Therese Leyva MA - 12/08/2021 1:00 PM EDT Additional intake questions: Has the patient had fever, nausea, vomiting, diarrhea, constipation, fatigue for > 1 week? No Does patient have any new or increased numbness or tingling of extremities? Yes, BOTH FEET Is patient interested in fertility information? No Does patient need any prescription refills? No Does patient have an advanced directive in place? Yes, copies are in Epic documented in this encounterMarion Hospital08-31-2022 History of Present illness Narrative* Vidhya Brito - 12/01/2021 4:53 PM EDT Mr. Aguilar presents today for his Reclast Infusion. Initial Vital signs: There were no vitals taken for this visit. INFUSION DOCUMENTATION Infusion initiated at 1120 am. Dose: 5mg/100 molIV: A 22g angiocath was started in the left arm. Infusing without signs or symptoms of infiltration. Patient tolerated well. Infusion discontinued at 1150am Lot: [id number] Exp:02/2023 LAB DATA: Glucose (mg/dL) Date Value 12/01/2021 96 05/17/2021 119 Potassium (mmol/L) Date Value 12/01/2021 4.8 05/17/2021 4.7 Sodium (mmol/L) Date Value 12/01/2021 136 05/17/2021 140 Chloride (mmol/L) Date Value 12/01/2021 103 05/17/2021 106 CO2 (mmol/L) Date Value 12/01/2021 25 05/17/2021 23 Creatinine (mg/dL) Date Value 12/01/2021 0.77 05/17/2021 0.87 BUN (mg/dL) Date Value 12/01/2021 13 05/17/2021 11 Anion Gap (mmol/L) Date Value 12/01/2021 8 05/17/2021 11 Calcium (mg/dL) Date Value 05/17/2021 9.4 Calcium, Total (mg/dL) Date Value 12/01/2021 9.2 Protein, Total (g/dL) Date Value 12/01/2021 7.5 05/17/2021 7.2 Albumin (g/dL) Date Value 12/01/2021 3.5 05/17/2021 3.4 Bilirubin, Total (mg/dL) Date Value 12/01/2021 1.3 05/17/2021 1.6 Alkaline Phosphatase (U/L) Date Value 12/01/2021 189 05/17/2021 203 AST (U/L) Date Value 12/01/2021 29 05/17/2021 35 ALT (U/L) Date Value 12/01/2021 15 05/17/2021 15 Vitamin D 25 Hydroxy (ng/mL) Date Value 11/29/2021 66.0 03/30/2021 41.5 ] PLAN: Follow up in 6 months - [address] Frazier Mr. Aguilar was discharged in no distress and in ambulatory status. Supervising Physician: Dr. Lorna Frazier documented in this encounterMarion Hospital08-31-2022 History of Present illness Narrative* DES Trivedi - 12/01/2021 10:07 AM EDT OLTx Annual Update to Original Psychosocial Evaluation Name: Jordan Aguilar Medical Record: [id number] Assessment Date: December 01, 2021 Met with: Pt seen alone today in clinic MELD-Na score: 8 at 11/29/2021 9:56 AM MELD score: 8 at 11/29/2021 9:56 AM Calculated from: Serum Creatinine: 0.88 mg/dL (Using min of 1 mg/dL) at 11/29/2021 9:56 AM Serum Sodium: 137 mmol/L at 11/29/2021 9:56 AM Total Bilirubin: 1.3 mg/dL at 11/29/2021 9:56 AM INR(ratio): 1.1 at 11/29/2021 9:56 AM Age: 61 years IMPRESSION: Pt seen for annual follow up with SW. He was A&Ox3, pleasant and fully participated in visit with SW. He was seen alone today but continues to identify his fiance Haylie and daughter Jennyfer as caregivers. They are both routinely involved in his care and monitor his condition and medication compliance at home. Pt has kept appointments at [facility] as scheduled and has a good therapeutic alliance with his providers. He has continued occasional cigarette use and was encouraged to quit again today. He denies any other substance use. His mood remains stable and he was able to identify healthy copingskills today. RECOMMENDATION: Pt remains suitable for listing from a SW perspective. Continue to follow up annually or as needed. SITUATIONAL HISTORY: Pt seen for annual follow up with [facility]. He is listed and waiting for transplant with a MELD of 8. He has a hernia that he was supposed to have fixed in the beginning of the month. States they weren't able to do the surgery because his platelets went down to 18. States his platelets are now up to 109 after transfusions. Hernia repair is rescheduled for later this fall. States otherwise his health has been stable. He asked about the need for dental consult as he has no teeth. Encouraged Pt to follow up with coordinator on our protocol for listing. PERSONAL HISTORY: He is still living together with his fiance Haylie. They've been together for the past 16 years as of October. Haylie is about to have her knee replaced next month. She is working full-time as a job coachfor special need adults. Pt states that otherwise she is doing well His daughter Jennyfer still plans to also help with his care. She has two kids and is a stay at homemom. She also does help with her 's business but is able to flex her time as needed. Both Haylie and Jennyfer can access his [employer] for any questions they have. They also frequently monitor Pt's medications to make sure he is taking them correctly. FUNCTIONAL STATUS: Pt walking with a cane this morning. He does have some issues with balance due to significant ascites. He is still able to handle basic household tasks on his own and has been doing a lot of work around his home. FINANCIAL/MEDICAL COVERAGE: Continues to have active medical coverage and no barriers to transplant surgery. Pt is on disability. Haylie also works full-time. Denies significant financial concerns at this time. CAREGIVER/SUPPORT PLAN: Primary Caregiver: Haylie contact #: [phone] Availability: She works full-time but has vacation time she can use. She's a strong support for him. Secondary Caregiver: Jennyfer contact #: [phone] Availability: She is a stay at home mom and can flex her schedule as needed. Caregiver commitment reviewed: Yes MENTAL HEALTH/COPING: Struggles at times still around the anniversary of his 's but otherwise he is doing well.He and Haylie have been getting along well overall and have learned how to communicate with each other. He prefers to stay active working on their home. He recently got dehydrated because he was working outside on some hot days. He shared examples today of all the projects he is working on and what he has planned. CHEMICAL DEPENDENCY: States he has still been smoking a couple of cigarettes per day. States this is due to stress. Again encouraged cessation. Reviewed benefits of being tobacco free for surgery and how it could impact his recovery from transplant and also from his planned hernia surgery. Pt acknowledged understanding. He expressed his intention to quit and denied the need for cessation resources today. UNDERSTANDING OF TRANSPLANT: Good reviewed with him today. ADVANCE DIRECTIVES: Forms on file, no changes to be made at this time. ADWOA Trivedi, DES-S, CCTSW December 01, 2021 10:07 AM documented in this encounterMarion Hospital08-29-2022 Miscellaneous Notes* Telephone Encounter - Donya Hanna - 11/29/2021 9:16 AM EDT Under scanned documents on 08/25 patient was approved for [facility] PAP This needs to be filled through the [facility] Donya Hanna LPN November 29, 2021 9:16 AM * Telephone Encounter - Dayna Reyes MD - 11/29/2021 9:06 AM EDT Hi Donya Patient is still having difficulty with Rifaximin. He says his pharmacy does not carry the medication, unsure if PAP is approved. Can you please check on PAP status, determine if med can be sent by Specialty Pharmacy and what next steps are needed. Then please call patient / patient's daughter withupdate. Thank you Dayna Reyes MD documented in this encounterMarion Hospital08-23-2022 Miscellaneous Notes* Telephone Encounter - Donya Hanna - 11/23/2021 12:42 PM EDT Spoke to patient via and relayed the previous message from Dr Reyes Patient states his understanding and voices no further questions or concerns Donya Hanna LPN November 23, 2021 12:42 PM * Telephone Encounter - Dayna Reyes MD - 11/23/2021 12:09 PM EDT Hi Donya Can you please let patient know that he has active standing orders from me in the system. Please ask him to have bloodwork drawn before our appointment next week. Thank you Dayna Reyes MD * Telephone Encounter - Brook Farley - 11/23/2021 9:28 AM EDT Patient called to see if he needed more lab work done since being discharged? En Doe documented in this encounterMarion Hospital08-11-2022 Instructions* Patient Instructions* Tenisha Granados PA-C - 11/11/2021 9:30 AM EDT PATIENT PREOPERATIVE INSTRUCTIONS Kulwinder Landry MD has scheduled you for your procedure at this surgery center: [facility] Scheduling Office: [phone] --[address] [place] [address]. Please read below carefully for your personalized instructions. Dietary Restrictions: - No solid food after midnight. - You may have 12 ounces of clear liquids (water, clear juices such as apple juice or gatorade, carbonated beverages, clear tea, black coffee, jello) until 2 hours before scheduled arrival at facility. - no milk / coffee creamer - no pulp juices Medications: Unless instructed differently below, stay on all of your medications until your surgery. Approved medications to take the morning of surgery with a sip of water: Rifaximin DO NOT TAKE YOUR LISINOPRIL THE NIGHT BEFORE OR MORNING OF SURGERY If you take any medications for erectile dysfunction-Cialis (Tadalafil), Levitra, Staxyn (Vardenafil) Viagra (Sildenenafil please do not take these for 48 hours before surgery. If you start any new medications after today's visit, please contact the surgeon's office. Blood Thinning Medications: - Stop NSAIDS (Ibuprofen, Advil, Aleve, Motrin, Celebrex, Mobic, etc.) 7 days before surgery, as directed by your surgeon. - Stop Aspirin 7 days before surgery, as directed by your surgeon. - Stop Vitamin E, ALL multi-vitamins, herbals and dietary supplements 7 days before surgery. - You may take Tylenol (Acetaminophen) or any of your pain medications that do not contain aspirin or NSAIDS as needed. Important Reminders: - If you use CPAP/BIPAP, bring the machine with you to the surgery center. - If you are prescribed inhalers for breathing, continue using them. - Candy, mints, and tobacco products are NOT permitted the morning of surgery. - Hearing aids, dentures and glasses may be worn the morning of surgery. - NO jewelry, body piercings, makeup, hairpins or contacts are to be worn the day of surgery. If you develop symptoms such as a fever, cold, or flu, or have other changes to your health within TWO DAYS of scheduled surgery or the morning of surgery, please contact the surgery center above. Personal Belongings: -Please have photo ID and insurance cards. -If you do not have a copy of advance directives on file with us, please bring a copy with you on the day of surgery. - Leave ALL valuables and money at home or with family members. For Outpatient Procedures: - YOU MUST HAVE A RESPONSIBLE PRODUCTIVITY ENGINEER TAKE YOU HOME. A DJANGO DEVELOPER OR SOLIDS CONTROL TECHNICIAN CANNOT BE MADE A RESPONSIBLE PRODUCTIVITY ENGINEER. - We recommend that a responsible person stays with you overnight to take care of you. - You cannot stay in a hotel alone after outpatient surgery. You will not be permitted to have yoursurgery, if you do not have someone to take care of you. Arrival Time for Surgery: - To obtain your arrival time for surgery, call your physician's office the day before your surgery. - If your surgery is scheduled for Monday, call the Monday before. Your surgeon s maintenance scheduler will tell you what time to call the office. - If you have not reached the departmental maintenance scheduler by 5 P.M., call [phone] after 5 P.M. the day before your surgery. Please be aware that emergency situations arise, which may delay or change your surgical time. If this happens, we will notify you as soon as possible and regret any inconvenience. If you already have an Advance Directive, please fax a copy to [phone] or email to for it to be added to your chart. If you do not have an Advance Directive, you can find the appropriate form and more information at [email or web address]. We recommend that youcomplete the Advance Directive form found on the website and bring it with you the day of your surgery. It can be witnessed and scanned into your chart that day. Tenisha Granados PA-C documented in this encounterMarion Hospital08-11-2022 History and physical note * Tenisha Granados PA-C - 11/11/2021 9:00 AM EDT HISTORY AND PHYSICAL EXAMINATION SERVICE DATE: 11/11/2021 SERVICE TIME: 9:25 AM PRIMARY CARE PHYSICIAN: Jordan Azar MD, MD REASON FOR VISIT: Jordan Aguilar is a 61 year old male who is scheduled for HERNIORRHAPHY INGUINAL ELECTIVE ADULT REDUCIBLE - RIGHT at the request of Dr. Kulwinder Landry for consultation. My final recommendation willbe communicated back to the requesting physician by way of shared medical record or letter. 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 Hepatic Encephalopathy (Hcc) Iron Deficiency Anemia Due to Chronic Blood Loss Liver Transplant Candidate Abdominal Aortic Aneurysm (Aaa) Without Rupture (Hcc) Lung Nodules Hypergammaglobulinemia History of Colonic Polyps Age-Related Osteoporosis Without Current Pathological Fracture Unilateral Inguinal Hernia Without Obstruction Or Gangrene Portal Hypertension With Esophageal Varices (Hcc) Muscle Cramp Appointment Cancelled Copd (Chronic Obstructive Pulmonary Disease) (Hcc) Anemia Thrombocytopenia (Hcc) Cad (Coronary Artery Disease) Subjective CHIEF COMPLAINT: Inguinal Hernia - Right HPI: 61 year old male with a history of cirrhosis, CAD, COPD, Anemia presents for upcoming hernia repair. Has had pain since April. Pain is worse with lifting weights and improves with rest or ice.Recommended for above surgery and elected to proceed. Reports pain is 7/10 - it was aggravated by walking in from the parking lot. Per Dr. Landry's note - Plan for open repair; he's going to get a paracentesis pre-op. Ascites better controlled now with diuretics. He is scheduled for paracentesis on 11/15. PAST MEDICAL HISTORY Diagnosis Date Anemia Aneurysm of infrarenal abdominal aorta (HCC) Arthritis Ascites CAD (coronary artery disease) COPD (chronic obstructive pulmonary disease) (HCC) Hepatic encephalopathy (HCC) Histoplasmosis Histoplasmosis Hydrothorax Hyperlipidemia Hypertension Liver cirrhosis (HCC) Sarcopenia Thrombocytopenia (HCC) PAST SURGICAL HISTORY Procedure Laterality Date BACK SURGERY HX x2 EGD HERNIA REPAIR HX Left inguinal HERNIA REPAIR HX 09/2020 Umbilical PAST SURGICAL HISTORY OF colonoscopy REVISION OF LUNG blebs removed 1979 from histoplasmosis XCAPSL CTRC RMVL INSJ IO LENS PROSTH W/O ECP Left 10/19/2018 XCAPSL CTRC RMVL INSJ IO LENS PROSTH W/O ECP Right 11/06/2018 Cataract Extraction with PC IOL FAMILY HISTORY Problem Relation Age of Onset Diabetes Father Heart disease Father Heart Attack Father 72 in hospital other (bypass) Father other (MVA) Mother 56 Heart Attack Brother Diabetes Brother Hypertension Brother other (Gout) Brother Thyroid Sister Heart Attack Maternal Grandfather other (pneumonia) Maternal Grandmother passed age 80's other (lung cancer) Paternal Grandfather Diabetes Paternal Grandmother passed age 94 Heart disease Paternal Uncle Cancer Paternal Uncle multi type Heart Paternal Uncle Anesthesia Problems No Family History SOCIAL HISTORY: Social History Tobacco Use Smoking status: Former Packs/day: 2.00 Years: 41.00 Pack years: 82.00 Types: Cigarettes Start date: 1979 Quit date: 2020 Years since quittin.6 Smokeless tobacco: Never Vaping Use Vaping Use: Never used Substance Use Topics Alcohol use: Not Currently Comment: none since 2018 Drug use: No MEDICATIONS: Prior to Admission medications as of 11/11/21 0924 Medication Sig Last Dose Taking bumetanide (BUMEX) 1 mg tablet Take 2 tablets in the morning and 1 tablet in the afternoon. Yes cholecalciferol (VITAMIN D-3) 50 mcg (2,000 unit) tablet Take 1 tablet by mouth once daily. with your largest meal Yes zoledronic acid (RECLAST) 5 mg/100 mL pgbk PREMIX piggyback Inject 100 mL intravenously one time only for 1 dose. Yes spironolactone (ALDACTONE) 100 mg tablet Take 2 tablets by mouth once daily. Yes lactulose (DUPHALAC, CONSTULOSE) 20 gram/30 mL solution Take 30 mL by mouth twice daily. Yes rifAXIMin (XIFAXAN) 550 mg tablet Take 1 tablet by mouth twice daily. Yes HYDROcodone-Acetaminophen (NORCO) 7.5-325 mg per tablet Take 1 tablet by mouth every 8 hours as needed for pain. Yes lisinopril (ZESTRIL, PRINIVIL) 20 mg tablet Take 20 mg by mouth once daily. Yes Taurine 500 mg cap Take 1 capsule by mouth twice daily. Yes coenzyme Q10 (COQ-10) 100 mg cap capsule Take 1 capsule by mouth twice daily. Patient taking differently: Take 100 mg by mouth once daily. Yes simvastatin (ZOCOR) 20 mg tablet Take 1 tablet by mouth daily at bedtime. Yes iron bisgly,ps-FA-B-C#12-succ 65 mg-65 mg -1,000 mcg (24) tab Take 65 mg by mouth once daily. Yes Zinc 50 mg tab Take 1 tablet by mouth once daily. Yes multivit-min/FA/lycopen/lutein (CENTRUM SILVER MEN ORAL) Take 1 tablet by mouth once daily. Yes amitriptyline (ELAVIL) 100 mg tablet Take 100 mg by mouth daily at bedtime. Yes No medication comments found. CURRENT ALLERGIES: ALLERGIES Allergen Reactions Pregabalin Mental Status Change Lyrica Becomes Manic COVID VACCINATION STATUS: Fully vaccinated REVIEW OF SYSTEMS: PAIN ASSESSMENT: Pain Pain Level: 7 Pain Location: Groin Description: Aching;Burning Duration Amount of Time: 2 Duration Units: Years Frequency: Continuous Intervention/Comfort measure: Medication General: No weight loss, malaise or fevers. Neuro: No history of TIA's, stroke, FARMWORKER ANIMAL tumor, impaired sensorium, hemiplegia, paraplegia or quadraplegia. No neurological symptoms or problems. Respiratory: Negative for Current cough, Home O2, Pneumonia within 6 weeks (date), URI < 2 weeks + pulmonary histoplasmosis s/p RUL bullectomy in + COPD no inhalers. Was on prednisone > 4 weeks ago for worsening cough, resolved. Cardiovascular: Negative for Arrhythmia, Chest Pain, Valvular Heart Disease, DVT/PE + HLD + CAD - no stents. On statin + AAA - small infrarenal 3.5 cm monitored + HTN - 104/79 normal for him GI: Negative for Nausea, Vomiting, Abdominal pain + [place] related Cirrhosis - liver transplant candidate + Esophageal Varices on EGD + portal HTN Follows with Dr. Reyes - : No history of dysuria, frequency or incontinence,, stones or chronic kidney disease Endocrine: No history of diabetes. Has not taken steroids within the past 30 days. No history of endocrinological symptoms or problems. Hematology: Easy bruising / bleeding + Anemia + Thrombocytopenia Oncology: No history of CA metastasis, chemo within 30 days, or radiotherapy within 90 days. Has not lost 10% of body wt in 6 months. No history of oncological symptoms or problems. Psych: No history of psychiatric symptoms or problems. Musculoskeletal: Negative for joint pain or swelling, back pain or muscle pain. Skin: Negative for lesions, rash and itching. Objective PHYSICAL EXAM: VITALS: BP 104/79 Pulse 74 Temp (Src) 97.1 (Temporal Artery) Resp 16 Ht 6' 1 (1.85m) Wt 217 lb (98.4kg) SpO2 97% BMI 28.64 kg/(m^2). General: Alert and oriented, No acute distress Skin: Normal color, no rash, no lesions. HEENT: EOM, pupils equal, round and reactive. Cardiovascular: Normal S1 & S2, no rubs, murmurs or gallops. No JVD. Pulse regular. Lungs: Normal breath sounds, no wheezes or crackles. Abdomen: Soft, non-tender, no rigidity. Extremities: No deformity, no edema or tenderness, no joint swelling or clubbing. Neurological: Normal cognition and motor skills. Pulses: Carotid and radial pulses normal +2. Diagnostic tests reviewed for today's visit: Lab Value Units Date High Low HB 14.8 g/dL 11/11/2021 17.0 13.0 HB 14.9 g/dL 05/17/2021 17.0 13.0 HCT 46.1 % 11/11/2021 51.0 39.0 HCT 45.0 % 05/17/2021 51.0 39.0 WBC 5.98 k/uL 11/11/2021 11.00 3.70 WBC 6.14 k/uL 05/17/2021 11.00 3.70 PLT 18 k/uL 11/11/2021 400 150 PLT 83 k/uL 05/17/2021 400 150 NA 135 mmol/L 11/11/2021 144 136 NA 140 mmol/L 05/17/2021 144 136 K 5.3 mmol/L 11/11/2021 5.1 3.7 K 4.7 mmol/L 05/17/2021 5.1 3.7 GLUC 119 mg/dL 05/17/2021 99 74 GLUC 100 mg/dL 11/11/2021 99 74 BUN 15 mg/dL 11/11/2021 24 9 BUN 11 mg/dL 05/17/2021 24 9 CREAT 0.87 mg/dL 05/17/2021 1.22 0.73 CREAT 0.82 mg/dL 11/11/2021 1.22 0.73 PTSEC 12.1 sec 11/11/2021 13.0 9.7 PTSEC 11.9 sec 05/17/2021 13.0 9.7 INR 1.2 no uni* 11/11/2021 1.3 0.9 INR 1.1 no uni* 05/17/2021 1.3 0.9 APTT 30.1 sec 11/11/2021 32.4 23.0 ALT 27 U/L 11/11/2021 54 10 ALT 15 U/L 05/17/2021 54 10 AST 42 U/L 11/11/2021 40 14 AST 35 U/L 05/17/2021 40 14 TBILI 1.9 mg/dL 11/11/2021 1.3 0.2 TBILI 1.6 mg/dL 05/17/2021 1.3 0.2 TSH No results within date range. Lab Value Units Date High Low HCGQT No results within date range. UHCG No results within date range. HCG, BODY* No results within date range. Lab Value Units Date High Low ABORHD No results within date range. ABSCREEN No results within date range. Hemoglobin A1C (%) Date Value 03/04/2019 4.7 08/20/2018 4.8 05/30/2018 4.6 STRESS ECHO DOBUTAMINE 09/13/21 CONCLUSIONS: - Exam indication: Preop Liver Tx - The dobutamine stress echo was negative for ischemia at 89 % of MPHR. - The left ventricle is normal in size. Left ventricular systolic function is normal. EF = 55 5% (2D biplane) - The right ventricle is normal in size. Right ventricular systolic function is normal. - The left atrial cavity is severely dilated. - There are no significant valvular abnormalities. - Exam was compared with the prior echocardiographic exam performed on 09/16/2020; similar findings. EKG 11/11/21 Normal sinus rhythm rate 69 bpm Assessment/Plan Essential hypertension Assessment: stable on meds. BP today 104/79 which is normal for him Abdominal aortic aneurysm (AAA) without rupture (HCC) Assessment: small 3.5 cm infrarenal aneurysm - Continue to monitor CAD (coronary artery disease) Assessment: Stable and negative stress test. No stents. On statin. COPD (chronic obstructive pulmonary disease) (HCC) Assessment: no inhalers, stable 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) Assessment: follows with Dr. Torres and on transplant list Other ascites Assessment: well controlled on bumex and spironolactone. He is scheduled for pre-op paracentesis Portal hypertension with esophageal varices (HCC) Assessment: follows with Dr. Reyes, stable Thrombocytopenia (HCC) Assessment: baseline in s - labs completed 11/11 platelet count 18. Contacted surgeon Dr. Landry and Dr. Reyes - he will be admitted pre-operatively and transfused Histoplasmosis Assessment: s/p RUL bullectomy in stable METS: Walk indoors, such as around the house (1.75 METs) Do light work around the house, such as dusting or washing dishes (2.70 METs) Take care of self; that is eating, dressing, bathing, using the toilet (2.75 METs) Walk a block or two on level ground (2.75 METs) Do moderate work around the house such as vacuuming, sweeping floors, or carrying in groceries (3.50 METs) Do yardwork, such as raking leaves, weeding,or pushing a power mower (4.50 METs) Patient denies any chest pain or undue shortness of breath with the above physical activity. ASA Class: 4 ANESTHESIA FINDINGS: Intubation History: No history of difficult intubation Significant Anesthesia Considerations: None Airway Exam: General: Normal appearance Mallampati Score is CLASS III ULBT: Class I - Lower incisors can bite the upper lip above the dean line Neck: Normal appearance and function, Distance from hyoid to mentum during neck extension is at least 3 finger breaths Mouth: Normal tongue size and Mouth opening greater than 2 finger breaths Dentition: Edentulous Airway History: No abnormal airway history STOP BANG Score: Criteria: Snoring Hypertension Age over 50 (61 year old) Male gender Score = 4 PLAN This patient is optimally prepared for surgery pending paracentesis and transfusion CONSULTS: The following consults have been initiated at this time: GI Dr. Reyse and Surgeon Dr. Landry Patient will be admitted pre-operatively for paracentesis and transfusion (PLT 18) The Following Tests/Procedures Have Been Initiated: Orders Placed This Encounter Comp Metabolic Panel Standing Status: Future Number of Occurrences: 1 Standing Expiration Date: 01/11/2022 CBC with Differential Standing Status: Future Number of Occurrences: 1 Standing Expiration Date: 01/11/2022 PTT Standing Status: Future Number of Occurrences: 1 Standing Expiration Date: 01/11/2022 Order Specific Question: . Answer: There is a nationwide shortage of blue top tubes used for coagulation tests. Order ONLY when clinically necessary. Order Specific Question: . Answer: Examples of clinically necessary indications include active bleeding, imminent surgery, warfarin, direct thrombin inhibitors, and suspected thrombosis. Order Specific Question: In order to conserve [facility]'s supply for crucial testing, I attest that this order is clinically necessary. Answer: Yes PT/INR Standing Status: Future Number of Occurrences: 1 Standing Expiration Date: 01/11/2022 Order Specific Question: . Answer: There is a nationwide shortage of blue top tubes used for coagulation tests. Order ONLY when clinically necessary. Order Specific Question: . Answer: Examples of clinically necessary indications include active bleeding, imminent surgery, warfarin, direct thrombin inhibitors, and suspected thrombosis. Order Specific Question: In order to conserve [facility]'s supply for crucial testing, I attest that this order is clinically necessary. Answer: Yes Type and Screen, 30 day Standing Status: Future Number of Occurrences: 1 Standing Expiration Date: 01/11/2022 ECG COMPLETE Standing Status: Future Standing Expiration Date: 11/11/2022 ECG COMPLETE Order Comments: Ordered by an unspecified provider Planned Anesthetic: General Instructions Given to Patient: Instructions located in the after visit summary. Patient given verbal and written preop instructions and voices comprehension and compliance. SIGNATURE: Tenisha Granados PA-C PATIENT NAME: Jordan Aguilar DATE: November 11, 2021 TIME: 8:18 AM documented in this encounterMar[facility]07-18-2022 Miscellaneous Notes* Telephone Encounter - Dayna Reyes MD - 10/18/2021 2:12 PM EDT Orders signed Dayna Reyes MD documented in this encounterMar[facility]07-13-2022 Miscellaneous Notes* Telephone Encounter - Dayna Reyes MD - 10/13/2021 10:20 PM EDT Nicolas Naqvi Can you please call patient: His labs look good on the increased dose of the water pills. How is his fluid doing? His his hernia pain improved? He can stop his Vitamin A supplement. Please let me know and will make a plan for next steps either way. Thank you Dayna Reyes MD documented in this encounterMar[facility]07-08-2022 Miscellaneous Notes* Telephone Encounter - Dolly Randle RN - 10/08/2021 12:31 PM EDT Patient scheduled with referral created Thanks Dolly Randle RN * Telephone Encounter - Carito Rodriguez RN - 10/07/2021 11:31 AM EDT Called patient he would like to be scheduled for Reclast on November at 12:00pm. Will need new PA/referral, please attach to appointment. Labs in process. Thanks. Carito Rodriguez RN * Telephone Encounter - Carito Rodriguez RN - 10/07/2021 11:29 AM EDT ----- Message from Lorna Frazier MD sent at 10/07/2021 10:40 AM EDT ----- Regarding: needs annual Reclast Infusion Please call and schedule He will be here on December 01 for other appointments thank you Lorna Frazier MD documented in this encounterMar[facility]07-07-2022 History of Present illness Narrative* Kulwinder Landry MD - 10/07/2021 2:18 PM EDT Mr Aguilar returns - left inguinal and umbilical hernias still fixed. Now with soft reducible rightgroin bulge and exam consistent with a right inguinal hernia. Plan for open repair; he's going to get a paracentesis pre-op. Ascites better controlled now with diuretics. Kulwinder Landry MD I have seen and evaluated the patient and discussed the case with the resident physician. I agree with the assessment and plan as documented in the resident s note. * Maciej Wellington - 10/07/2021 2:08 PM EDT Jordan Aguilar is a 61 year old male presenting to clinic today with Right groin pain. He noticed the pain since April 2021. He has had 2 prior hernia surgeries: inguinal (L) and umbilical repaired by Dr Landry. He notes the pain to be a 7 out of 10 and would like for it to be repaired. He reports it feels worse when he is lifting weights and better when he ices it or takes Narco (prescribed for his back pain). He says passing stool is painful as well. He has a pmhx of cirrhosis (on transplant list), chronic back pain, and HTN. On physical exam, the hernia is apparent and tender to palpation. Dr Landry evaluated him and will schedule him for surgery. documented in this encounterMarion Hospital07-07-2022 Nurse Note* Trina Brandt Ma - 10/07/2021 1:26 PM EDT Intake information documented in the prior visit with Dr. frazier today. documented in this encounterMarion Hospital07-07-2022 History of Present illness Narrative* Lorna Frazier MD - 10/07/2021 10:30 AM EDT [facility] Last seen 08-20-2020 RE: low bone mass I will communicate my recommendations and findings via shared medical record and/or USPS CC: [place] HPI: Jordan Aguilar is a 61 year old male who initially presented 08-20-2020 in referral for my expert opinion regarding bone loss in the presence of [place] and is on the TXP list. History of spine fracture due to a fall. . Still drinks milk -- couple glasses daily Takes a D supplement - remains physically active at home -- FOLLOW UP VISIT 10-07-2021: Received Reclast infusion 11-12-2020. Doing well on the whole. Notes some lightheadedness with a new drug but he denies any falls. Still drinking his milk daily. He was feeling the heat a bit and drank full strength gatorade and developed muscle cramping -- having extra water helped. - currently going thru annual check ups - he is on the list for txp and meets with them in late November REVIEW OF SYSTEMS GENERAL: wt is ess stable with good appetite and better food choices HEENT: vision is good ENDO/NECK: Denies jaw pain, no difficulty swallowing; neg CARDIOVASCULAR: CAD -- no s/s today GI: denies / scheduled for umbilical hernia repair next month : neg NEPHROLITHIASIS: denies ENDO/MUSCULOSKELETAL/BONE: aches and pains FRACTURES: spine fracture in the past due to a fall SKIN: superficial scratches from trimming trees PSYCH: HEMATOLOGY/LYMPHOLOGY denies NEURO: neg MEDICAL HISTORY: PAST MEDICAL HISTORY Diagnosis Date Anemia Aneurysm of infrarenal abdominal aorta (HCC) Arthritis Ascites CAD (coronary artery disease) COPD (chronic obstructive pulmonary disease) (HCC) Hepatic encephalopathy (HCC) Histoplasmosis Histoplasmosis Hydrothorax Hyperlipidemia Hypertension Liver cirrhosis (HCC) Sarcopenia Thrombocytopenia (HCC) SURGICAL HISTORY: PAST SURGICAL HISTORY Procedure Laterality Date BACK SURGERY HX x2 EGD HERNIA REPAIR HX Left inguinal HERNIA REPAIR HX 09/2020 Umbilical PAST SURGICAL HISTORY OF colonoscopy REVISION OF LUNG blebs removed 1979 from histoplasmosis XCAPSL CTRC RMVL INSJ IO LENS PROSTH W/O ECP Left 10/19/2018 XCAPSL CTRC RMVL INSJ IO LENS PROSTH W/O ECP Right 11/06/2018 Cataract Extraction with PC IOL FAMILY HISTORY: Family History Problem Relation Age of Onset Diabetes Father Heart disease Father Heart Attack Father 72 in hospital other (bypass) Father other (MVA) Mother 56 Heart Attack Brother Diabetes Brother Hypertension Brother other (Gout) Brother Thyroid Sister Heart Attack Maternal Grandfather other (pneumonia) Maternal Grandmother passed age 80's other (lung cancer) Paternal Grandfather Diabetes Paternal Grandmother passed age 94 Heart disease Paternal Uncle Cancer Paternal Uncle multi type Heart Paternal Uncle Anesthesia Problems No Family History SOCIAL HISTORY: Social History Marital status: Spouse name: Years of education: Number of children: Social History Main Topics Drug use: Unknown DXA: DATE OF EXAM: Jun 18 2020 9:45AM [facility] [place] - AXIAL SKELETON / PROCEDURE REASON: multiple diagnoses * * * * Physician Interpretation * * * * EXAMINATION: DXA BONE DENSITOMETRY BD DXA - AXIAL SKELETON PATIENT DEMOGRAPHICS: Age: 60 years, Race: , Gender: Male SCANNER INFORMATION: DXA Model: [id number] (S/N: [id number]) Site Scanned: Lumbar spine, left hip Date Scanned: 06/18/2020 9:45 AM CLINICAL HISTORY: DIAGNOSTIC 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) . RISK FACTORS FOR OSTEOPOROSIS AND ASSOCIATED FRACTURES REPORTED BY THIS PATIENT: prior fragility fracture, CURRENT THERAPY: vitamin D tablet TECHNICAL LIMITATIONS: Degenerative disease of the spine RESULTS: Lumbar spine (L1-L4): 1.254 g/cm2, T-score 0.3, Z-score 0.0 Lumbar spine: 2019: 1.233 g/cm2 No statistically significant change Left Femoral Neck: 0.872 g/cm2, T-score -1.5, Z-score -1.0 Left Femoral Neck: 2019: 0.950 g/cm2 Statistically significant decrease Left Total Hip: 0.963 g/cm2, T-score -1.0, Z-score -0.9 Left Total Hip: 2019: 1.030 g/cm2 Statistically significant decrease CHANGE IS STATISTICALLY SIGNIFICANT IN THE SPINE OR HIP IF GREATER THAN OR EQUAL TO 0.04g/cm2 I have personally reviewed these images extensively: and concur with the above noted interpretation LABS: Component Latest Ref Rng & Units 07/07/2021 07/29/2021 08/12/2021 09/13/2021 Protein, Total 6.3 - 8.0 g/dL 8.7 (H) 8.5 (H) 8.6 (H) 8.6 (H) Albumin 3.9 - 4.9 g/dL 3.8 (L) 3.8 (L) 3.6 (L) 3.7 (L) Calcium 8.5 - 10.2 mg/dL 9.6 9.2 9.7 9.7 Bilirubin, Total 0.2 - 1.3 mg/dL 1.6 (H) 0.8 0.7 1.7 (H) Alkaline Phosphatase 38 - 113 U/L 215 (H) 252 (H) 235 (H) 167 (H) AST 14 - 40 U/L 34 31 30 33 ALT 10 - 54 U/L 12 11 10 13 Glucose 74 - 99 mg/dL 94 98 122 (H) 86 BUN 9 - 24 mg/dL 13 12 16 20 Creatinine 0.73 - 1.22 mg/dL 0.87 0.91 0.84 0.91 Sodium 136 - 144 mmol/L 139 139 137 133 (L) Potassium 3.7 - 5.1 mmol/L 4.8 3.7 3.9 4.9 Chloride 97 - 105 mmol/L 103 99 103 99 CO2 22 - 30 mmol/L 24 27 25 24 Anion Gap 9 - 18 mmol/L 12 13 9 10 eGFR >=60 mL/min/1.73m 98 95 99 95 Vitamin A 0.30 - 1.20 mg/L 0.30 Vitamin D 25 Hydroxy 31.0 - 80.0 ng/mL 36.3 Component Latest Ref Rng & Units 06/18/2020 Protein, Total 6.3 - 8.0 g/dL 8.0 Albumin 3.9 - 4.9 g/dL 3.5 (L) Calcium 8.5 - 10.2 mg/dL 9.2 Bilirubin, Total 0.2 - 1.3 mg/dL 1.3 Alkaline Phosphatase 38 - 113 U/L 220 (H) AST 14 - 40 U/L 21 Glucose 74 - 99 mg/dL 89 BUN 9 - 24 mg/dL 14 Creatinine 0.73 - 1.22 mg/dL 0.87 Sodium 136 - 144 mmol/L 139 Potassium 3.7 - 5.1 mmol/L 4.4 Chloride 97 - 105 mmol/L 105 CO2 22 - 30 mmol/L 25 Anion Gap 9 - 18 mmol/L 9 ALT 10 - 54 U/L 10 eGFR- >60 eGFR-All Other Races . >60 Vitamin A 0.30 - 1.20 mg/L 0.25 (L) Vitamin D 25 Hydroxy 31.0 - 80.0 ng/mL 41.3 Current Medications Current Outpatient Medications on File Prior to Visit Medication Sig bumetanide (BUMEX) 1 mg tablet Take 2 tablets in the morning and 1 tablet in the afternoon. vitamin A (AQUASOL A) 10,000 unit capsule Take 1 capsule by mouth once daily. spironolactone (ALDACTONE) 100 mg tablet Take 2 tablets by mouth once daily. cholecalciferol (VITAMIN D-3) 50 mcg (2,000 unit) tablet Take 0.5 tablets by mouth once daily. lactulose (DUPHALAC, CONSTULOSE) 20 gram/30 mL solution Take 30 mL by mouth twice daily. rifAXIMin (XIFAXAN) 550 mg tablet Take 1 tablet by mouth twice daily. HYDROcodone-Acetaminophen (NORCO) 7.5-325 mg per tablet Take 1 tablet by mouth every 8 hours as needed for pain. lisinopril (ZESTRIL, PRINIVIL) 20 mg tablet Take 20 mg by mouth once daily. Taurine 500 mg cap Take 1 capsule by mouth twice daily. coenzyme Q10 (COQ-10) 100 mg cap capsule Take 1 capsule by mouth twice daily. (Patient taking differently: Take 100 mg by mouth once daily. ) acetaminophen (TYLENOL) 325 mg tablet Take 2 tablets by mouth every 6 hours as needed. (Patient nottaking: Reported on 03/30/2021 ) simvastatin (ZOCOR) 20 mg tablet Take 1 tablet by mouth daily at bedtime. iron bisgly,ps-FA-B-C#12-succ 65 mg-65 mg -1,000 mcg (24) tab Take 65 mg by mouth once daily. Zinc 50 mg tab Take 1 tablet by mouth once daily. multivit-min/FA/lycopen/lutein (CENTRUM SILVER MEN ORAL) Take 1 tablet by mouth once daily. amitriptyline (ELAVIL) 100 mg tablet Take 100 mg by mouth daily at bedtime. Current Facility-Administered Medications on File Prior to Visit Medication perflutren lipid microspheres 1.3 mL in NaCl (PF) 0.9% 10 mL injection (DEFINITY) sodium chloride 0.9 % (flush) 10 mL (BD POSIFLUSH) PHYSICAL EXAMINATION:\ BP 107/64 Pulse 66 Ht 187.1 cm (6' 1.66 ) Wt 100.7 kg (222 lb) BMI 28.77 kg/m General appearance: well appearing, alert and in no acute distress Head: normal Eyes: Anicteric sclera. Pupils are equally round and reactive to light. Extraocular movements are intact. Skin: skin color, texture, turgor normal Neck: Supple, no adenopathy; thyroid symmetric, normal size, no bruits Heart: RRR Lungs: CTAB Abdomen bernign Back: no pain to palpation over spine or costovertebral angles -Shoulder height position: normal -Pelvic Tilt: anterior -Dorsal kyphosis: none -Lumbar curve: present -Scoliosis: none noted -Movement: Normal upon exam Extremities: Extremities normal. No edema Musculoskeletal: Spine range of motion normal. Muscular strength: subtle proximal weakness Neuro: Gait normal. Sensation grossly intact. ASSESSMENT & PLAN 1. Age-related osteoporosis without current pathological fracture - ICD9: 733.01, ICD10: M81.0 (primary diagnosis) - with known fracture - Reclast last November (2020) - will schedule for second infusion later this summer - 2. Vitamin D deficiency - ICD9: 268.9, ICD10: E55.9 - increase the supplement to 2000 IU daily - take with dinner to optimize absorption 3. 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) - ICD9: 571.8, 571.5, ICD10: K75.81, K74.60 4. Liver transplant candidate - ICD9: V49.83, ICD10: Z76.82 - important to treat osteoporosis ahead of txp and associated Rx that can further compromise bone health Annual following I thank you for the opportunity to participate in the care of Jordan Aguilar Please do not hesitate to contact me if you have further concerns or questions. This chart has been routed to the referring provider electronically Lorna Frazier MS, RD, MD, CCD, FACN, FACP, FACE Diplomate, [place] Board [employer]esity [employer] Diplomate, National Board of Physician [employer] [facility] F-20 / [phone] / [id number] Any part of this document that has been added/copied & pasted from other documents has been reviewed for accuracy and updated as appropriate at the time of the patient encounter Medical Decision Making: Problems: Moderate: New problem with uncertain prognosis Data: Unique test result(s) reviewed: 3+ Independent interpretation of test from other physician/QHCP Risk: Moderate: Moderate risk from testing/treatment and Drug management Medical Decision Making Level: 4 - Moderate documented in this encounterMarion Hospital07-07-2022 Instructions* Patient Instructions* Gladys Quiroz Yony - 10/07/2021 10:24 AM EDT 2 cups of gatorade + 2 cups of water + 1 teaspoon of salt documented in this encounterMarion Hospital07-05-2022 History of Present illness Narrative* Tim Dennis MD - 10/05/2021 10:52 AM EDT STUDY TITLE: A Multicenter, Prospective, Open-label, Randomized Controlled Clinical Trial to Compare the Safety and Effectiveness of the VitaSmartTM Liver Machine Perfusion System with Static Cold Storage for Organ Preservation Prior to Liver Transplantation (Bridge to [facility]OPE) (Bridge to Life) IRB No: [id number] INTERVENTION NURSE: Juan Lloyd MD Pager: [phone] COORDINATOR/Research Nurse/Rivet Tosser: Jammie Dubose MS I discussed the above mentioned research protocol with patient. All questions were addressed and answered. The IRB approved Informed Consent document was reviewed with the patient. The study purpose,follow up visits, risks, alternatives and costs were discussed. Patient is aware that this study is completely voluntary. Patient will be given a copy of the IFC. Rivet Tosser's contact information will be given to patient. documented in this [facility]06-20-2022 History of Present illness Narrative* Lucy Lomax PA-C - 09/20/2021 7:40 AM EDT Images from the original note were not included. Surgical risk-cirrhosis Vocal Alder Score Lucy Lomax PA-C September 20, 2021 7:40 AM documented in this [facility]06-18-2022 Miscellaneous Notes* Telephone Encounter - Dayna Reyes MD - 09/18/2021 10:05 AM EDT Hi Donya Can you please call patient I heard from Lucy that he has having worsening inguinal hernia pain. As long as he has ascites, a surgery is very high risk for him. If we can get his ascites better controlled, this will also help his hernia pain. Recommend: Increase Bumex to 2 pills in the morning and 1 pill in the afternoon Continue spironolactone 2 pills daily Repeat labs at a [facility] lab in 1 week Orders placed Thank you Dayna Reyes MD documented in this encounterMarion Hospital06-17-2022 Instructions* Patient Instructions* Lucy Lomax PA-C - 09/17/2021 10:29 AM EDT With next set of labs, will need to check vitamin A level Repeat liver ultrasound and follow up with Dr. Reyes in December Call general surgery to discuss hernia repair documented in this encounterMarion Hospital06-17-2022 History of Present illness Narrative* Lucy Lomax PA-C - 09/17/2021 10:00 AM EDT Images from the original note were not included. 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 Jordan Aguilar is a patient of Dr. Reyes, last seen 07/07/21. At last visit: -[place]-related cirrhosis: He was listed for OLT on 11/18/19. He consented to HCV viremic transplant on 08/14/19. Discussed that living donor will be his best option (he has no available donors at this time). He should be considered a high risk due to diffuse CAD (DSE updated September 2020 and re-cleared by anesthesia, and cardiology (12/31/20)). Continue simvastatin. -HE: Incompletely controlled. Continue lactulose BID, counseled to add third dose with early symptoms. Had previously attempted to start Rifaximin but he has not yet completed PAP paperwork, will facilitate. Continue zinc, re-check level. Discussed high protein diet at length, recommend to increaseprotein supplements to TID, including late evening snack. 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 -HHT: s/p 1 thoracentesis. Asymptomatic and not hypoxic. On lasix 40mg BID and aldactone 50mg daily. Re-check kidney function. -Ascites: Recently exacerbated and poorly controlled, now requiring LVPs. Currently on Lasix 40mg BID and aldactone 50mg daily. Will re-check kidney funciton and up-titrate diuretics as able (consider switching furosemide to bumex). Re-discussed salt-restricted diet. Recommend against TIPS in the setting of HE. PRN LVP locally at [facility]. -HCC screening / liver cyst surveillance: He was recently found to have newly elevated CA19-9. An MRCP on 06/29/21 was negative for malignancy. Recommend longitudinal screening via imaging and AFP [id number]. -EV screening: Small EV on EGD 04/21/21. Recommend annual surveillance EGD, will schedule now. He did not tolerate NSBB prophylaxis. Continue simvastatin. 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 Urine histo Ag negative with stable very small lung nodules. Recommendannual surveillance chest CT, done in June 2020. Follows with pulmonary Dr. Cr, last seen Apr 2021. -Muscle cramps: Resolved. Continue Taurine and Co-Q-10 supplementation. -CAD: s/p C 10/28/19 with mild/moderate CAD. Per cardiology recommendation is for medical therapy and would not recommend CAD re-vascularization. Updated DSE September 2020 ok and cleared by anesthesia, followed up with cardiology December 2020. Next DSE is scheduled for September 2021. Continue simvastatin. -Umbilical hernia: s/p repair with Dr. Landry on 09/04/20. Now with possible inguinal hernia, will defer surgical intervention at present given exacerbated large volume ascites. -Iron deficiency anemia: Resolved, now taking an OTC supplement. -Dyslipidemia: On Simvastatin -Vitamin A deficiency: Completed daily replacement therapy, re-check level. -Vitamin D deficiency: Level normalized off replacement therapy. Re-check level. -Osteopenia: DXA with osteopenia 06/18/20. He established in endocrine calcium clinic and received Reclast 11/12/20. Will arrange summer follow-up with Dr. Frazier. -History of adenomatous colonic polyps: Colonoscopy up to date as of Apr 2020. Recommend surveillance colonoscopy in 5 years (due 2025). -Skin health: FBSE up to date 05/17/21 at [facility]. -Immune status: Immune to HAV/HBV. Completed 3 doses of a COVID-19 Moderna series. Recommended 4th dose. Interval hx: Started on Vitamin A and D supplement. Stopped lasix and started on Bumex 1m g BID with increase inspironolactone to 100 mg daily. Last MELD 10 Taking lactulose BID with 4-5 bm daily Now on Rifaximin 550 mg BID as well Says he has abdominal distention but is not uncomfortably enough yet for repeat paracentesis Last ultrasound July 2021 with moderate to large volume ascites Most bothersome issue today is right sided inguinal hernia, says is burning, interfering with his ability to ambulate, previously saw general surgery but not was very symptomatic at that time Would like to pursue surgical treatment of his hernia Listed for OLT with low MELD, consented for HCV positive organ, no living donors PT denies current issues with jaundice, disorientation/confusion, hematemesis, hematochezia, dark urine, jolene colored stools. Remaining systems reviewed and are negative. REVIEW OF SYSTEMS GENERAL: No unexplained weight changes or fevers. HEENT: Negative for severe headaches. NECK: Negative for lumps, masses or pain. RESPIRATORY: Negative for coughing, wheezing or significant dyspnea. CARDIOVASCULAR: Negative for chest pain or heart palpitations. GASTROINTESTINAL: Negative for rectal bleeding or black tarry stools and Positive for ascites mild. GENITOURINARY: Not reviewed. MUSCULOSKELETAL: Negative for unexplained joint pains, dislocations or fractures. NEUROLOGIC: Negative for unexplained weakness or vertigo. SKIN: Negative for new lesions or rashes. ENDOCRINE: Negative for cold or heat intolerance . Current Outpatient Medications Medication Sig Dispense Refill spironolactone (ALDACTONE) 100 mg tablet Take 2 tablets by mouth once daily. 180 tablet 3 cholecalciferol (VITAMIN D-3) 50 mcg (2,000 unit) tablet Take 0.5 tablets by mouth once daily. 45 tablet 3 bumetanide (BUMEX) 1 mg tablet Take 1 tablet by mouth twice daily. 180 tablet 3 lactulose (DUPHALAC, CONSTULOSE) 20 gram/30 mL solution Take 30 mL by mouth twice daily. 1680 mL 11 rifAXIMin (XIFAXAN) 550 mg tablet Take 1 tablet by mouth twice daily. 60 tablet 11 HYDROcodone-Acetaminophen (NORCO) 7.5-325 mg per tablet Take 1 tablet by mouth every 8 hours as needed for pain. lisinopril (ZESTRIL, PRINIVIL) 20 mg tablet Take 20 mg by mouth once daily. Taurine 500 mg cap Take 1 capsule by mouth twice daily. 60 capsule 11 coenzyme Q10 (COQ-10) 100 mg cap capsule Take 1 capsule by mouth twice daily. (Patient taking differently: Take 100 mg by mouth once daily. ) 60 capsule 11 simvastatin (ZOCOR) 20 mg tablet Take 1 tablet by mouth daily at bedtime. 30 tablet 11 iron bisgly,ps-FA-B-C#12-succ 65 mg-65 mg -1,000 mcg (24) tab Take 65 mg by mouth once daily. Zinc 50 mg tab Take 1 tablet by mouth once daily. 30 tablet 11 multivit-min/FA/lycopen/lutein (CENTRUM SILVER MEN ORAL) Take 1 tablet by mouth once daily. amitriptyline (ELAVIL) 100 mg tablet Take 100 mg by mouth daily at bedtime. vitamin A (AQUASOL A) 10,000 unit capsule Take 1 capsule by mouth once daily. 30 capsule 0 acetaminophen (TYLENOL) 325 mg tablet Take 2 tablets by mouth every 6 hours as needed. (Patient nottaking: Reported on 03/30/2021 ) Current Facility-Administered Medications Medication Dose Route Frequency Provider Last Rate Last Admin perflutren lipid microspheres 1.3 mL in NaCl (PF) 0.9% 10 mL injection (DEFINITY) INTRAVENOUS DIRECTED PRN Dayna Reyes MD sodium chloride 0.9 % (flush) 10 mL (BD POSIFLUSH) 10 mL INTRAVENOUS DIRECTED PRN Dayna Reyes MD ALLERGIES Allergen Reactions Pregabalin Mental Status Change Lyrica Becomes Manic Social History Tobacco Use Smoking status: Current Every Day Smoker Years: 41.00 Types: Cigarettes Start date: 06/01/2021 Smokeless tobacco: Former User Types: Snuff Tobacco comment: Quite 03/02/2020 Vaping Use Vaping Use: Never used Substance Use Topics Alcohol use: Not Currently Drug use: No PAST MEDICAL HISTORY Diagnosis Date Anemia Aneurysm of infrarenal abdominal aorta (HCC) Arthritis Ascites CAD (coronary artery disease) COPD (chronic obstructive pulmonary disease) (HCC) Hepatic encephalopathy (HCC) Histoplasmosis Histoplasmosis Hydrothorax Hyperlipidemia Hypertension Liver cirrhosis (HCC) Sarcopenia Thrombocytopenia (HCC) @SHX@ FAMILY HISTORY Problem Relation Age of Onset Diabetes Father Heart disease Father Heart Attack Father 72 in hospital other (bypass) Father other (MVA) Mother 56 Heart Attack Brother Diabetes Brother Hypertension Brother other (Gout) Brother Thyroid Sister Heart Attack Maternal Grandfather other (pneumonia) Maternal Grandmother passed age 80's other (lung cancer) Paternal Grandfather Diabetes Paternal Grandmother passed age 94 Heart disease Paternal Uncle Cancer Paternal Uncle multi type Heart Paternal Uncle Anesthesia Problems No Family History PHYSICAL EXAM BP 136/73 Pulse 68 Temp (Src) 97.1 (Temporal) Ht 6' 1 (1.85m) Wt 230 lb 6.4 oz (104.5kg) SpO2 98% BMI 30.40 kg/(m^2). General Appearance: chronically ill appearing with muscle wasting temples/upper extremities Eyes: PERRLA, conjunctiva and sclera normal Oropharynx: covered by mask Lungs:breathing comfortably Heart: regular rate Abdomen: moderately distended with ascites but soft and non-tender Extremities: no cyanosis or edema Skin: spider angioma(s) Neuro:alert, oriented x 3, pleasant and in no acute distress, no asterixis Recent Labs: Hemoglobin (g/dL) Date Value 09/13/2021 15.1 05/17/2021 14.9 Hematocrit (%) Date Value 09/13/2021 44.7 05/17/2021 45.0 WBC (k/uL) Date Value 09/13/2021 3.93 05/17/2021 6.14 Glucose (mg/dL) Date Value 09/13/2021 86 05/17/2021 119 Potassium (mmol/L) Date Value 09/13/2021 4.9 05/17/2021 4.7 Sodium (mmol/L) Date Value 09/13/2021 133 05/17/2021 140 Chloride (mmol/L) Date Value 09/13/2021 99 05/17/2021 106 CO2 (mmol/L) Date Value 09/13/2021 24 05/17/2021 23 Creatinine (mg/dL) Date Value 09/13/2021 0.91 05/17/2021 0.87 BUN (mg/dL) Date Value 09/13/2021 20 05/17/2021 11 Anion Gap (mmol/L) Date Value 09/13/2021 10 05/17/2021 11 Calcium (mg/dL) Date Value 05/17/2021 9.4 Calcium, Total (mg/dL) Date Value 09/13/2021 9.7 Albumin (g/dL) Date Value 09/13/2021 3.7 (L) Bilirubin, Total (mg/dL) Date Value 09/13/2021 1.7 (H) Bilirubin, Conjugated (mg/dL) Date Value 07/07/2021 0.4 (H) Alkaline Phosphatase (U/L) Date Value 09/13/2021 167 (H) AST (U/L) Date Value 09/13/2021 33 ALT (U/L) Date Value 09/13/2021 13 Protein, Total (g/dL) Date Value 09/13/2021 8.6 (H) MELD-Na score: 10 at 09/13/2021 11:37 AM MELD score: 10 at 09/13/2021 11:37 AM Calculated from: Serum Creatinine: 0.91 mg/dL (Using min of 1 mg/dL) at 09/13/2021 11:37 AM Serum Sodium: 133 mmol/L at 09/13/2021 11:37 AM Total Bilirubin: 1.7 mg/dL at 09/13/2021 11:37 AM INR(ratio): 1.1 at 09/13/2021 11:37 AM Age: 61 years Imaging: LVUS 07/13/21: IMPRESSION: PATENT HEPATIC VASCULATURE WITH APPROPRIATELY DIRECTED FLOW. CIRRHOTIC LIVER MORPHOLOGY. NO HEPATICLESION. CHOLELITHIASIS. NO BILIARY DILATATION. MODERATE TO LARGE VOLUME ASCITES. EGD 04/2021: Findings: Small (< 5 mm) varices were found in the lower third of the esophagus. Moderate portal hypertensive gastropathy was found in the gastric body. The first portion of the duodenum, second portion of the duodenum and examined duodenum were normal. Impression: - Small (< 5 mm) esophageal varices. - Portal hypertensive gastropathy. - Normal examined duodenum. - No specimens collected. Estimated Blood Loss: Estimated blood loss: none. Recommendation: - Discharge patient to home (ambulatory). - Resume previous diet today. - Continue present medications. - Return to liver clinic as previously scheduled. Colonoscopy 04/2020: Findings: The perianal and digital rectal examinations were normal. A 3 mm polyp was found in the ascending colon. The polyp was sessile. The polyp was removed with a cold biopsy forceps. Resection and retrieval were complete. There was immidiate bleeding post-polypectomy and to stop bleeding post-intervention, one hemostatic clip was successfully placed (MR [...] the patient. Return to normal activities tomorrow. 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 Reviewed pathophysiology of cirrhosis along with signs of hepatic decompensation and significance of the MELD/CTP scores. Main complaint today is right inguinal hernia, requesting surgery, discussed he is very high risk for surgery given decompensated cirrhosis (ascites/HE/protal HTN). He has ascites present today despite diuretic therapy, declines paracentesis due to lack of discomfort. Reviewed probability of mortality with surgery and he would like to proceed with the surgical follow up. PLAN -MELD blood work per transplant. Most recent MELD 10 -Ascites: continue Bumex and spironolactone, recommend paracentesis (at [facility]) as needed for comfort or if weight up 7-10 pounds. <2,000 mg sodium daily. Not TIPS candidate due to HE -HE:seems improved, titrate lactulose for 3-4 bm daily, continue Xifaxan 550 mg BID, encouraged protein intake 3-4 sources daily with one at night -EV screen: UTD 04/2021 with grade 1 EV. He did not tolerate NSBB prophylaxis. Continue simvastatin. -HCC screen: UTD, repeat 12/2021 as scheduled -Liver transplant: continue with rec's per OLT office, no livings donors, has consented for HCV + organ -colonoscopy: UTD 04/2020, repeat 2025 (hx of adenomatous polyps) -immunizations: immune to HAV/HBV, recommend 4th COVID dose -Vitamin A deficiency: Completed daily replacement therapy, re-check level now -follow up with General surgery regarding inguinal hernia repair Mediterranean diet/increased cardiovascular exercise with goal >45 minutes 5 days weekly Avoid liver detox cleanse/supplements Repeat vitamin d level Not to exceed 2,000 mg tylenol daily Message sent to general surgery to discuss candidacy for inguinal hernia repair at his request, very high risk, would recommend deferring surgery unless urgent/emergent, prefer paracentesis/ascites better managed prior to surgery Follow up in December with Dr. Reyes as scheduled. Please contact sooner if you have questions or problems develop. I spent a total of 45 minutes on the date of the service which included preparing to see the patient, [id number] patient care, completing clinical documentation, obtaining and/or reviewing separately obtained history, performing a medically appropriate examination, counseling and educating the pat ient/family/caregiver, ordering medications, tests, or procedures, communicating with other HCPs (not separately reported) and independently interpreting results (not separately reported). Lucy Lomax PA-C September 17, 2021 4:34 PM documented in this encounterMarion [facility]06-13-2022 Miscellaneous Notes* Telephone Encounter - Zuleyka Jamison RN - 09/13/2021 4:14 PM EDT Jordan Aguilar informed of following... Successfully updated registration for Jordan Aguilar (SSN: [id number]). MELD Lab values were successfully updated. The new lab score is 10. All questions answered, Zuleyka Jamison RN documented in this encounterMarion Hospital06-13-2022 History of Present illness Narrative* Katy Chávez RN - 09/13/2021 10:38 AM EDT Dobutamine Stress Echo Plan of Care Plan of care discussed with physician and medication order set signed: Yes, Protocol: rule out ischemia. Indication for Dobutamine Stress Echo: r/o ischemia Contraindications to medications: None Education on dobutamine stress echo with patient completed. Yes, Protocol: rule out ischemia. 09/13/2021 10:39 AM IV Access: IV IV Site: left Antecubital IV GAUGE 22 gauge IV Removal Date 09/13/2021 Time 11:22 Reactions: WNL documented in this encounterMarion Hospital06-10-2022 Miscellaneous Notes* Telephone Encounter - Lorna Bucio RN - 09/10/2021 1:58 PM EDT ECHO LAB TELEPHONE INSTRUCTIONS: Learning Response: Instructions provided to: Patient Procedure: Dobutamine Stress Echo Pre procedure education topics: Arrival time, NPO status and Medications Instructions/Restrictions NPO 4 hrs before (water ok), caffeine-free 24 hours prior to test; ok to take medications Patient/Family Response Evaluation: Verbalizes understanding Follow Up Plan and Medication: As directed by physician Instruction/Supplemental Material Given: Appointment Information and Procedure/Test Specific Information: Dobutamine Stress Echo TEst Instructed By Lorna Bucio RN. In Department of CARDIOLOGY. documented in this encounterMarion Hospital04-30-2022 Miscellaneous Notes* Telephone Encounter - Dayna Reyes MD - 07/31/2021 10:26 AM EDT Nicolas Naqvi Can you please call patient: His updated labs are looking good on the new water pill regimen. I would like to increase his spironolactone to 200mg daily (2 pills daily). Please repeat labs at [facility] lab in 1 week. How is the ascites? Thank you Dayna Reyes MD documented in this encounterMarion Hospital04-12-2022 Miscellaneous Notes* Telephone Encounter - Dayna Reyes MD - 07/13/2021 10:52 PM EDT Nicolas Naqvi Can you please call patient: His liver ultrasound looks good. The liver vessels are open, and there is no imaging evidence of liver cancer. It does show moderate to large volume ascites. Remind to re-check labs next week to monitor change in water pills. Thank you Dayna Reyes MD [place] - Can patient please be scheduled for LVUS same day he sees me in December? Order placed. Thank you! documented in this encounterMarion Hospital04-11-2022 Miscellaneous Notes* Telephone Encounter - Dayna Reyes MD - 07/12/2021 10:00 PM EDT Nicolas Gardiner Can you please call patient: Labs reviewed -Vitamin A is borderline low. Recommend a daily Vitamin A supplement for 1 month only (prescriptionsent), then may take a daily multivitamin with Vitamin A going forward. -Start Vitamin D 1,000 units daily. Prescription sent. -Change water pills: Stop Lasix 40mg BID. Start Bumex 1mg BID. Increase spironolactone to 100mg daily.New prescriptions sent. Repeat labs in 1 week at a [facility] lab to re-check kidney function and electrolytes on new regimen. Can you please request in schedulin. Schedule LVUS same day as my appointment in December 2. Move CT chest to September same day as stress test 3. Schedule hepatology follow-up with Lucy Lomax PA-C in 8 weeks 4. Annual transplant surgery appointment for listed patients Thank you Dayna Reyes MD MELD-Na score: 9 at 07/07/2021 1:05 PM MELD score: 9 at 07/07/2021 1:05 PM Calculated from: Serum Creatinine: 0.87 mg/dL (Using min of 1 mg/dL) at 07/07/2021 1:05 PM Serum Sodium: 139 mmol/L (Using max of 137 mmol/L) at 07/07/2021 1:05 PM Total Bilirubin: 1.6 mg/dL at 07/07/2021 1:05 PM INR(ratio): 1.1 at 07/07/2021 1:05 PM Age: 61 years documented in this encounterMarion Hospital04-06-2022 Instructions* Patient Instructions* Dayna Reyes MD - 07/07/2021 12:[address] chest to coordinate on same day as stress test Schedule LVUS and appointment with Dr. Reyes same day in December to use new patient slot Schedule in person follow-up with Lucy Lomax in 8 weeks We will schedule you to see liver transplant surgery for your annual appointment We will work on the Rifaximin approval Increase to 3 protein supplements a day Get your COVID 4th shot documented in this encounterMarion Hospital04-06-2022 History of Present illness Narrative* Dayna Reyes MD - 07/07/2021 11:00 AM EDT NAME: Jordan Aguilar [facility] NO: [id number] REFERRING PHYSICIAN: Dayna Reyes PRESENTING COMPLAINT: f/u cirrhosis HPI: Jordan Aguilar is a 61 year old male with pulmonary hx 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 Last seen 03/23. Since last visit: - on waitlest for tx, due for dobutamine stress test and yearly derm follow-up, SW follow-up, and surgery follow-up in September - thinks ascites has picked up over the past couple months last para 06/30, took off 10L and gave albumin - taking lasix 40 BID and aldactone 50 daily, for the past week, reports increased UOP with this dos, not waking up at night to urinate - reports has been avoiding salt - has gotten rid of salt in the house, has gotten rid of the dill pickles - has been watching weight at home, usually around 220 to 230 - regarding lactulose, taking 2 / day, having 4-5 BMs/day, has not started rifaximin because of cost - seen by gen surg for R groin pain, recommended CT to eval for herna that showed R indirect inguinal hernia containing ascites - newly elevated Ca19-9, MRCP ordered and notable for cirrhosis w splenomegaly w no suspicous hepatic or obstructing pancreatic mass - hasn't taken norco in about 2 weeks, takes as needed for back pain - lost 3 family members in the past 6 months, including saadia's mother - smoking 3 cigarettes / day, since 1 month due to stress REVIEW OF SYSTEMS GENERAL: SEE HPI. HEENT: Negative for severe headaches, negative for changes in hearing or vision. NECK: Negative for lumps, masses or pain. RESPIRATORY: +cough CARDIOVASCULAR: Negative for chest pain or heart palpitations. GASTROINTESTINAL: SEE HPI. GENITOURINARY: SEE HPI. MUSCULOSKELETAL: See HPI. NEUROLOGIC: Positive for See HPI. ENDOCRINE: Negative for cold or heat intolerance . Current Outpatient Medications Medication Sig Dispense Refill lactulose (DUPHALAC, CONSTULOSE) 20 gram/30 mL solution Take 30 mL by mouth twice daily. 1680 mL 11 HYDROcodone-Acetaminophen (NORCO) 7.5-325 mg per tablet Take 1 tablet by mouth every 8 hours as needed for pain. lisinopril (ZESTRIL, PRINIVIL) 20 mg tablet Take 20 mg by mouth once daily. Taurine 500 mg cap Take 1 capsule by mouth twice daily. 60 capsule 11 coenzyme Q10 (COQ-10) 100 mg cap capsule Take 1 capsule by mouth twice daily. (Patient taking differently: Take 100 mg by mouth once daily. ) 60 capsule 11 simvastatin (ZOCOR) 20 mg tablet Take 1 tablet by mouth daily at bedtime. 30 tablet 11 iron bisgly,ps-FA-B-C#12-succ 65 mg-65 mg -1,000 mcg (24) tab Take 65 mg by mouth once daily. Zinc 50 mg tab Take 1 tablet by mouth once daily. 30 tablet 11 multivit-min/FA/lycopen/lutein (CENTRUM SILVER MEN ORAL) Take 1 tablet by mouth once daily. amitriptyline (ELAVIL) 100 mg tablet Take 100 mg by mouth daily at bedtime. vitamin A (AQUASOL A) 10,000 unit capsule Take 1 capsule by mouth once daily. 30 capsule 0 cholecalciferol (VITAMIN D-3) 50 mcg (2,000 unit) tablet Take 0.5 tablets by mouth once daily. 45 tablet 3 bumetanide (BUMEX) 1 mg tablet Take 1 tablet by mouth twice daily. 180 tablet 3 spironolactone (ALDACTONE) 100 mg tablet Take 1 tablet by mouth once daily. 90 tablet 3 rifAXIMin (XIFAXAN) 550 mg tablet Take 1 tablet by mouth twice daily. 60 tablet 11 acetaminophen (TYLENOL) 325 mg tablet Take 2 tablets by mouth every 6 hours as needed. (Patient nottaking: Reported on 03/30/2021 ) Current Facility-Administered Medications Medication Dose Route Frequency Provider Last Rate Last Admin perflutren lipid microspheres 1.3 mL in NaCl (PF) 0.9% 10 mL injection (DEFINITY) INTRAVENOUS DIRECTED PRN Dayna Reyes MD sodium chloride 0.9 % (flush) 10 mL (BD POSIFLUSH) 10 mL INTRAVENOUS DIRECTED PRN Dayna Reyes MD perflutren lipid microspheres 1.3 mL in NaCl (PF) 0.9% 10 mL injection (DEFINITY) INTRAVENOUS DIRECTED PRN Dayna Reyes MD sodium chloride 0.9 % (flush) 10 mL (BD POSIFLUSH) 10 mL INTRAVENOUS DIRECTED PRN Dayna Reyes MD ALLERGIES Allergen Reactions Pregabalin Mental Status Change Lyrica Becomes Manic Social History Tobacco Use Smoking status: Current Every Day Smoker Years: 41.00 Types: Cigarettes Start date: 06/01/2021 Smokeless tobacco: Former User Types: Snuff Tobacco comment: Quite 03/02/2020 Vaping Use Vaping Use: Never used Substance Use Topics Alcohol use: Not Currently Drug use: No PAST MEDICAL HISTORY Diagnosis Date Anemia Aneurysm of infrarenal abdominal aorta (HCC) Arthritis Ascites CAD (coronary artery disease) COPD (chronic obstructive pulmonary disease) (HCC) Hepatic encephalopathy (HCC) Histoplasmosis Histoplasmosis Hydrothorax Hyperlipidemia Hypertension Liver cirrhosis (HCC) Sarcopenia Thrombocytopenia (HCC) @SHX@ FAMILY HISTORY Problem Relation Age of Onset Diabetes Father Heart disease Father Heart Attack Father 72 in hospital other (bypass) Father other (MVA) Mother 56 Heart Attack Brother Diabetes Brother Hypertension Brother other (Gout) Brother Thyroid Sister Heart Attack Maternal Grandfather other (pneumonia) Maternal Grandmother passed age 80's other (lung cancer) Paternal Grandfather Diabetes Paternal Grandmother passed age 94 Heart disease Paternal Uncle Cancer Paternal Uncle multi type Heart Paternal Uncle Anesthesia Problems No Family History PHYSICAL EXAM BP 148/87 Pulse 92 Temp 97 Ht 6' 1 (1.85m) Wt 238 lb 3.2 oz (108.0kg) SpO2 97% BMI 31.43 kg/(m^2). General Appearance: NAD Eyes: no scleral icterus Lungs:breath sounds clear to auscultation bilaterally, no crackles, rhonchi, or wheezes Heart: regular rate and rhythm, no murmurs or gallops. Abdomen: no palpable mass, no organomegaly, distended, dull to percussion, +caput Extremities: +1LEE MSK: temporal wasting, no jaundice, no spider angiomas, no palmar erythema Neuro:alert, oriented x 3, pleasant and in no acute distress, no asterixis Recent Labs: Hemoglobin (g/dL) Date Value 07/07/2021 16.1 05/17/2021 14.9 Hematocrit (%) Date Value 07/07/2021 50.0 05/17/2021 45.0 WBC (k/uL) Date Value 07/07/2021 5.59 05/17/2021 6.14 Glucose (mg/dL) Date Value 07/07/2021 94 05/17/2021 119 Potassium (mmol/L) Date Value 07/07/2021 4.8 05/17/2021 4.7 Sodium (mmol/L) Date Value 07/07/2021 139 05/17/2021 140 Chloride (mmol/L) Date Value 07/07/2021 103 05/17/2021 106 CO2 (mmol/L) Date Value 07/07/2021 24 05/17/2021 23 Creatinine (mg/dL) Date Value 07/07/2021 0.87 05/17/2021 0.87 BUN (mg/dL) Date Value 07/07/2021 13 05/17/2021 11 Anion Gap (mmol/L) Date Value 07/07/2021 12 05/17/2021 11 Calcium (mg/dL) Date Value 05/17/2021 9.4 Calcium, Total (mg/dL) Date Value 07/07/2021 9.6 Albumin (g/dL) Date Value 07/07/2021 3.8 (L) Bilirubin, Total (mg/dL) Date Value 07/07/2021 1.6 (H) Bilirubin, Conjugated (mg/dL) Date Value 07/07/2021 0.4 (H) Alkaline Phosphatase (U/L) Date Value 07/07/2021 215 (H) AST (U/L) Date Value 07/07/2021 34 ALT (U/L) Date Value 07/07/2021 12 Protein, Total (g/dL) Date Value 07/07/2021 8.7 (H) MELD-Na score: 9 at 07/07/2021 1:05 PM MELD score: 9 at 07/07/2021 1:05 PM Calculated from: Serum Creatinine: 0.87 mg/dL (Using min of 1 mg/dL) at 07/07/2021 1:05 PM Serum Sodium: 139 mmol/L (Using max of 137 mmol/L) at 07/07/2021 1:05 PM Total Bilirubin: 1.6 mg/dL at 07/07/2021 1:05 PM INR(ratio): 1.1 at 07/07/2021 1:05 PM Age: 61 years Imaging: MRI Liver: see above IMPRESSION Jordan Aguilar is a 61 year old male with pulmonary hx c/b bullous apical ds s/p remote RUL bullectomy, chronic back pain, [place], hx of inguinal and umbilical hernia repair, and metabolic syndrome (HTN, DL, centripetal adiposy) with [place] related cirrhosis (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 MELD-Na score: 9 at 07/07/2021 1:05 PM MELD score: 9 at 07/07/2021 1:05 PM Calculated from: Serum Creatinine: 0.87 mg/dL (Using min of 1 mg/dL) at 07/07/2021 1:05 PM Serum Sodium: 139 mmol/L (Using max of 137 mmol/L) at 07/07/2021 1:05 PM Total Bilirubin: 1.6 mg/dL at 07/07/2021 1:05 PM INR(ratio): 1.1 at 07/07/2021 1:05 PM Age: 61 years PLAN #[place] related cirrhosis - ascites/volume: no recurrent HHT, now on lasix 40 BID and aldactone 50 daily, continue salt restricted diet, para as needed, last 06/30. Do not recommend TIPS given HE. Repeat bloodwork today to assess Cr and K, if stable will increase to aldactone 100 - varices: coreg not tolerated, last EGD 04/24 with small EV, PHG, normal duodenum, continue yearly EGD - SBP: no known hx - HE: continue lactulose BID / zinc and high protein LES. Start rifaximin if can obtain insurance approval - HCC: q6 month AFP and imaging, last MRI 06/22, due 12/23 - sarcopenia: continue high protein diet, increase to 3 protein supplements a day - transplant: listed on 11/18/19, consented for HCV viremic tx, considered high risk due to diffuse CAD (due for repeat DSE 09/22), living donor best option but no available donors at this time. 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 Will repeat chest CT at time of DSE - continue to follow w Dr. Cr, last seen 04/24 and OK to go ahead with surgery #Muscle cramps > Well controlled - continue taurine and Co-Q-10 #CAD - continue simvastatin - DSE in 09/22 - follow w cardiology in December #Depression > Reports mood stable but recent stressors - appreciate tx pysch #Iron/Vitamin - 03/23 iron normalized - Vit A: 03/23 normalized, repeat with next bloodwork and then may stop vit A - Vit D: DXA osteopnia 06/21, established in endocrine clinic, received reclast 11/21, 03/23 Vit D 41.5 #Vaccines: - completed COVID Moderna series, recommended 4th vaccine today - immune to HAV/HBV - pneumococcal 13 09/20 - TDAP 09/20 #Hx of polyps - [place] in 2025 Follow up in 6 months. Please contact sooner if you have questions or problems develop. Denise Cxo MD Fellow, Gastroenterology & Hepatology July 07, 2021 11:27 AM [facility] STAFF PHYSICIAN NOTE OF PERSONAL INVOLVEMENT IN CARE I have reviewed the history and physical examination obtained and documented by the fellow and I personally participated in the zavala components. I have discussed the case and management of the patient's care. The following comments revise or confirm relevant zavala components of their note. Assessment IMPRESSION Mr. 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 MELD-Na score: 9 at 07/07/2021 1:05 PM MELD score: 9 at 07/07/2021 1:05 PM Calculated from: Serum Creatinine: 0.87 mg/dL (Using min of 1 mg/dL) at 07/07/2021 1:05 PM Serum Sodium: 139 mmol/L (Using max of 137 mmol/L) at 07/07/2021 1:05 PM Total Bilirubin: 1.6 mg/dL at 07/07/2021 1:05 PM INR(ratio): 1.1 at 07/07/2021 1:05 PM Age: 61 years PLAN -[place]-related cirrhosis: He was listed for OLT on 11/18/19. He consented to HCV viremic transplant on 08/14/19. Discussed that living donor will be his best option (he has no available donors at this time). He should be considered a high risk due to diffuse CAD (DSE updated September 2020 and re-cleared by anesthesia, and cardiology (12/31/20)). Continue simvastatin. -HE: Incompletely controlled. Continue lactulose BID, counseled to add third dose with early symptoms. Had previously attempted to start Rifaximin but he has not yet completed PAP paperwork, will facilitate. Continue zinc, re-check level. Discussed high protein diet at length, recommend to increaseprotein supplements to TID, including late evening snack. 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 -HHT: s/p 1 thoracentesis. Asymptomatic and not hypoxic. On lasix 40mg BID and aldactone 50mg daily. Re-check kidney function. -Ascites: Recently exacerbated and poorly controlled, now requiring LVPs. Currently on Lasix 40mg BID and aldactone 50mg daily. Will re-check kidney funciton and up-titrate diuretics as able (consider switching furosemide to bumex). Re-discussed salt-restricted diet. Recommend against TIPS in the setting of HE. PRN LVP locally at [facility]. -HCC screening / liver cyst surveillance: He was recently found to have newly elevated CA19-9. An MRCP on 06/29/21 was negative for malignancy. Recommend longitudinal screening via imaging and AFP [id number]. -EV screening: Small EV on EGD 04/21/21. Recommend annual surveillance EGD, will schedule now. He did not tolerate NSBB prophylaxis. Continue simvastatin. 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 Urine histo Ag negative with stable very small lung nodules. Recommendannual surveillance chest CT, done in June 2020. Follows with pulmonary Dr. Cr, last seen Apr 2021. -Muscle cramps: Resolved. Continue Taurine and Co-Q-10 supplementation. -CAD: s/p LHC 10/28/19 with mild/moderate CAD. Per cardiology recommendation is for medical therapy and would not recommend CAD re-vascularization. Updated DSE September 2020 ok and cleared by anesthesia, followed up with cardiology December 2020. Next DSE is scheduled for September 2021. Continue simvastatin. -Umbilical hernia: s/p repair with Dr. Landry on 09/04/20. Now with possible inguinal hernia, will defer surgical intervention at present given exacerbated large volume ascites. -Iron deficiency anemia: Resolved, now taking an OTC supplement. -Dyslipidemia: On Simvastatin -Vitamin A deficiency: Completed daily replacement therapy, re-check level. -Vitamin D deficiency: Level normalized off replacement therapy. Re-check level. -Osteopenia: DXA with osteopenia 06/18/20. He established in endocrine calcium clinic and received Reclast 11/12/20. Will arrange summer follow-up with Dr. Frazier. -History of adenomatous colonic polyps: Colonoscopy up to date as of Apr 2020. Recommend surveillance colonoscopy in 5 years (due 2025). -Skin health: FB[facility] up to date 05/17/21 at [facility]. -Immune status: Immune to HAV/HBV. Completed 3 doses of a COVID-19 Moderna series. Recommended 4th dose. Follow up in 8 weeks. Please contact sooner if you have questions or problems develop. I spent a total of 45 minutes on the date of the service which included preparing to see the patient, [id number] patient care, completing clinical documentation, obtaining and/or reviewing separately obtained history, performing a medically appropriate examination, counseling and educating the pat ient/family/caregiver, ordering medications, tests, or procedures and care coordination (not separately reported). Dayna Reyes MD July 07, 2021 11:00 AM documented in this encounter[facility] Miscellaneous Notes* Addendum Note - Dayna Reyes MD - 06/29/2021 12:14 PM EDT Addended by: DAYNA REYES on: 06/29/2021 12:14 PM Modules accepted: Orders * Telephone Encounter - Dayna Reyes MD - 06/29/2021 12:13 PM EDT Standing order placed! Thank you CL * Telephone Encounter - Brook Farley - 06/29/2021 11:01 AM EDT Hi can you place a new paracentesis order the last one that amparo received over the weekend and he is scheduled to be drained with them tomorrow. FX [phone] documented in this encounterMarion [facility]03-29-[facility]22 History of Present illness Narrative* Diane Velarde, RT(R) - 06/29/2021 11:50 AM EDT Radiology Service Progress Note PATIENT NAME: Jordan Aguilar DATE OF SERVICE: June 29, 2021 TIME: 12:41 PM PATIENT IDENTITY VERIFICATION COMPLETED USING TWO (2) IDENTIFIERS: Name and Date of confirmedby patient verbally and Name and Date of confirmed by identification band. FALL SCREENING: Has the patient had 2 falls in the last year or 1 fall with injury or currently using an Ambulatory Assistive Device (Walker, Cane, Wheelchair, Crutches, etc.)? No PATIENT GENDER DATA: Male PATIENT RELEVANT IMPLANT DATA REVIEWED: Yes RADIOLOGY DEPARTMENT: ; Exam(s) Completed: Body: Pancreas/Biliary PERIPHERAL IV DATA: Site assessment: Clean,Dry and Intact, Site disposition Discontinued SIGNED BY: RT John(MR) June 29, 2021 12:41 PM * Leanna Santoyo RN - 06/29/2021 11:50 AM EDT Radiology Service Progress Note DATE OF SERVICE: June 29, 2021 TIME: 12:10 PM PATIENT WEIGHT: 217 LBS PATIENT IDENTITY VERIFICATION COMPLETED USING TWO (2) STANDARD IDENTIFIERS: Name and Date of confirmed by patient verbally and Name and Date of confirmed by identification band. FALL SCREENING: Has the patient had 2 falls in the last year or 1 fall with injury or currently using an Ambulatory Assistive Device (Walker, Cane, Wheelchair, Crutches, etc.)? Yes, Patient High Riskfor Falls What interventions were put in place to prevent falls during this visit? Instructed Patient to Callfor Help if Needed PATIENT GENDER DATA: Male ALLERGIES: Reviewed and unchanged CONTRAST ALLERGY: No EXAM: MRI - CONTRAST TYPE: GROUP II IV SITE: Ambulatory: A peripheral IV was started in the Left antecubital site with a Angio cath: 22gauge. and A Saline lock was inserted per protocol IV SITE APPEARANCE: Clean,Dry and Intact SIGNATURE: Leanna Santoyo RN PATIENT NAME: Jordan Aguilar DATE: June 29, 2021 TIME: 12:10 PM documented in this encounterMarion [facility]05-[facility] History of Past illness Narrative* Problem Noted Date Resolved Date Low bone mass 08/20/2020 10/07/2021 Inguinal hernia, left 07/03/2018 09/12/2018 Pulmonary hypertension 05/30/2018 1 documented as of this encounter (statuses as of 10/07/2021) [facility] of Past illness Narrative* Problem Noted Date Resolved Date Low bone mass 08/20/2020 10/07/2021 Inguinal hernia, left 07/03/2018 09/12/2018 Pulmonary hypertension 05/30/2018 1 documented as of this encounter (statuses as of 10/07/2021) [facility] of Past illness Narrative* Problem Noted Date Resolved Date Low bone mass 08/20/2020 10/07/2021 Inguinal hernia, left 07/03/2018 09/12/2018 Pulmonary hypertension 05/30/2018 1 documented as of this encounter (statuses as of 10/12/2021) [facility] Narrative* Problem Noted Date Resolved Date Low bone mass 08/20/2020 10/07/2021 Inguinal hernia, left 07/03/2018 09/12/2018 Pulmonary hypertension 05/30/2018 1 documented as of this encounter (statuses as of 10/14/2021) [facility] Narrative* Problem Noted Date Resolved Date Low bone mass 08/20/2020 10/07/2021 Inguinal hernia, left 07/03/2018 09/12/2018 Pulmonary hypertension 05/30/2018 1 documented as of this encounter (statuses as of 10/18/2021) [facility] Narrative* Problem Noted Date Resolved Date Low bone mass 08/20/2020 10/07/2021 Inguinal hernia, left 07/03/2018 09/12/2018 Pulmonary hypertension 05/30/2018 1 documented as of this encounter (statuses as of 10/19/2021) [facility] Narrative* Problem Noted Date Resolved Date Low bone mass 08/20/2020 10/07/2021 Inguinal hernia, left 07/03/2018 09/12/2018 Pulmonary hypertension 05/30/2018 1 documented as of this encounter (statuses as of 11/04/2021) [facility] Narrative* Problem Noted Date Resolved Date Low bone mass 08/20/2020 10/07/2021 Inguinal hernia, left 07/03/2018 09/12/2018 Pulmonary hypertension 05/30/2018 1 documented as of this encounter (statuses as of 11/12/2021) [facility] Narrative* Problem Noted Date Resolved Date Low bone mass 08/20/2020 10/07/2021 Inguinal hernia, left 07/03/2018 09/12/2018 Pulmonary hypertension 05/30/2018 1 documented as of this encounter (statuses as of 11/23/2021) [facility] Narrative* Problem Noted Date Resolved Date Low bone mass 08/20/2020 10/07/2021 Inguinal hernia, left 07/03/2018 09/12/2018 Pulmonary hypertension 05/30/2018 1 documented as of this encounter (statuses as of 11/29/2021) [facility] Narrative* Problem Noted Date Resolved Date Low bone mass 08/20/2020 10/07/2021 Inguinal hernia, left 07/03/2018 09/12/2018 Pulmonary hypertension 05/30/2018 1 documented as of this encounter (statuses as of 12/01/2021) [facility] Narrative* Problem Noted Date Resolved Date Low bone mass 08/20/2020 10/07/2021 Inguinal hernia, left 07/03/2018 09/12/2018 Pulmonary hypertension 05/30/2018 1 documented as of this encounter (statuses as of 12/02/2021) [facility] Narrative* Problem Noted Date Resolved Date Low bone mass 08/20/2020 10/07/2021 Inguinal hernia, left 07/03/2018 09/12/2018 Pulmonary hypertension 05/30/2018 1 documented as of this encounter (statuses as of 12/04/2021) [address]20-2021 History of Past illness Narrative* Problem Noted Date Resolved Date Low bone mass 08/20/2020 10/07/2021 Inguinal hernia, left 07/03/2018 09/12/2018 Pulmonary hypertension 05/30/2018 1 documented as of this encounter (statuses as of 12/08/2021) [facility] Narrative* Problem Noted Date Resolved Date Low bone mass 08/20/2020 10/07/2021 Inguinal hernia, left 07/03/2018 09/12/2018 Pulmonary hypertension 05/30/2018 1 documented as of this encounter (statuses as of 12/20/2021) [facility] Narrative* Problem Noted Date Resolved Date Low bone mass 08/20/2020 10/07/2021 Inguinal hernia, left 07/03/2018 09/12/2018 Pulmonary hypertension 05/30/2018 1 documented as of this encounter (statuses as of 12/23/2021) [facility] Narrative* Problem Noted Date Resolved Date Low bone mass 08/20/2020 10/07/2021 Inguinal hernia, left 07/03/2018 09/12/2018 Pulmonary hypertension 05/30/2018 1 documented as of this encounter (statuses as of 12/30/2021) [facility] Narrative* Problem Noted Date Resolved Date Low bone mass 08/20/2020 10/07/2021 Inguinal hernia, left 07/03/2018 09/12/2018 Pulmonary hypertension 05/30/2018 1 documented as of this encounter (statuses as of 01/06/2022) [facility] Narrative* Problem Noted Date Resolved Date Low bone mass 08/20/2020 10/07/2021 Inguinal hernia, left 07/03/2018 09/12/2018 Pulmonary hypertension 05/30/2018 1 documented as of this encounter (statuses as of 01/10/2022) [facility] Narrative* Problem Noted Date Resolved Date Low bone mass 08/20/2020 10/07/2021 Inguinal hernia, left 07/03/2018 09/12/2018 Pulmonary hypertension 05/30/2018 1 documented as of this encounter (statuses as of 01/13/2022) [facility]* Problem Noted Date Resolved Date Low bone mass 08/20/2020 10/07/2021 Inguinal hernia, left 07/03/2018 09/12/2018 Pulmonary hypertension 05/30/2018 1 documented as of this encounter (statuses as of 01/21/2022) [facility]* Problem Noted Date Resolved Date Low bone mass 08/20/2020 10/07/2021 Inguinal hernia, left 07/03/2018 09/12/2018 Pulmonary hypertension 05/30/2018 1 documented as of this encounter (statuses as of 02/10/2022) [facility] Narrative* Problem Noted Date Resolved Date Low bone mass 08/20/2020 10/07/2021 Inguinal hernia, left 07/03/2018 09/12/2018 Pulmonary hypertension 05/30/2018 1 documented as of this encounter (statuses as of 02/10/2022) [facility]arr[facility]* Problem Noted Date Resolved Date Low bone mass 08/20/2020 10/07/2021 Inguinal hernia, left 07/03/2018 09/12/2018 Pulmonary hypertension 05/30/2018 1 documented as of this encounter (statuses as of 02/11/2022) [facility]arr[facility]* Problem Noted Date Resolved Date Low bone mass 08/20/2020 10/07/2021 Inguinal hernia, left 07/03/2018 09/12/2018 Pulmonary hypertension 05/30/2018 1 documented as of this encounter (statuses as of 02/11/2022) [facility] Narrative* Problem Noted Date Resolved Date Low bone mass 08/20/2020 10/07/2021 Inguinal hernia, left 07/03/2018 09/12/2018 Pulmonary hypertension 05/30/2018 1 documented as of this encounter (statuses as of 02/11/2022) [facility] Narr[facility]* Problem Noted Date Resolved Date Low bone mass 08/20/2020 10/07/2021 Inguinal hernia, left 07/03/2018 09/12/2018 Pulmonary hypertension 05/30/2018 1 documented as of this encounter (statuses as of 02/15/2022) [facility] Narr[facility]* Problem Noted Date Resolved Date Low bone mass 08/20/2020 10/07/2021 Inguinal hernia, left 07/03/2018 09/12/2018 Pulmonary hypertension 05/30/2018 1 documented as of this encounter (statuses as of 02/22/2022) [facility]* Problem Noted Date Resolved Date Low bone mass 08/20/2020 10/07/2021 Inguinal hernia, left 07/03/2018 09/12/2018 Pulmonary hypertension 05/30/2018 1 documented as of this encounter (statuses as of 02/25/2022) [facility]* Problem Noted Date Resolved Date Low bone mass 08/20/2020 10/07/2021 Inguinal hernia, left 07/03/2018 09/12/2018 Pulmonary hypertension 05/30/2018 1 documented as of this encounter (statuses as of 03/02/2022) [facility]* Problem Noted Date Resolved Date Low bone mass 08/20/2020 10/07/2021 Inguinal hernia, left 07/03/2018 09/12/2018 Pulmonary hypertension 05/30/2018 1 documented as of this encounter (statuses as of 03/03/2022) [facility]* Problem Noted Date Resolved Date Low bone mass 08/20/2020 10/07/2021 Inguinal hernia, left 07/03/2018 09/12/2018 Pulmonary hypertension 05/30/2018 1 documented as of this encounter (statuses as of 03/09/2022) [address]20-[address]21 History of Past illness Narrative* Problem Noted Date Resolved Date Low bone mass 08/20/2020 10/07/2021 Inguinal hernia, left 07/03/2018 09/12/2018 Pulmonary hypertension 05/30/2018 1 documented as of this encounter (statuses as of 03/10/2022) [facility]* Problem Noted Date Resolved Date Low bone mass 08/20/2020 10/07/2021 Inguinal hernia, left 07/03/2018 09/12/2018 Pulmonary hypertension 05/30/2018 1 documented as of this encounter (statuses as of 03/11/2022) [facility]* Problem Noted Date Resolved Date Low bone mass 08/20/2020 10/07/2021 Inguinal hernia, left 07/03/2018 09/12/2018 Pulmonary hypertension 05/30/2018 1 documented as of this encounter (statuses as of 03/17/2022) [facility]* Problem Noted Date Resolved Date Low bone mass 08/20/2020 10/07/2021 Inguinal hernia, left 07/03/2018 09/12/2018 Pulmonary hypertension 05/30/2018 1 documented as of this encounter (statuses as of 03/17/2022) [facility]* Problem Noted Date Resolved Date Low bone mass 08/20/2020 10/07/2021 Inguinal hernia, left 07/03/2018 09/12/2018 Pulmonary hypertension 05/30/2018 1 documented as of this encounter (statuses as of 03/22/2022) [facility]* Problem Noted Date Resolved Date Low bone mass 08/20/2020 10/07/2021 Inguinal hernia, left 07/03/2018 09/12/2018 Pulmonary hypertension 05/30/2018 1 documented as of this encounter (statuses as of 03/23/2022) [facility]* Problem Noted Date Resolved Date Low bone mass 08/20/2020 10/07/2021 Inguinal hernia, left 07/03/2018 09/12/2018 Pulmonary hypertension 05/30/2018 1 documented as of this encounter (statuses as of 04/08/2022) [facility]* Problem Noted Date Resolved Date Low bone mass 08/20/2020 10/07/2021 Inguinal hernia, left 07/03/2018 09/12/2018 Pulmonary hypertension 05/30/2018 1 documented as of this encounter (statuses as of 04/13/2022) [facility]* Problem Noted Date Resolved Date Low bone mass 08/20/2020 10/07/2021 Inguinal hernia, left 07/03/2018 09/12/2018 Pulmonary hypertension 05/30/2018 1 documented as of this encounter (statuses as of 04/13/2022) [facility]* Problem Noted Date Resolved Date Low bone mass 08/20/2020 10/07/2021 Inguinal hernia, left 07/03/2018 09/12/2018 Pulmonary hypertension 05/30/2018 1 documented as of this encounter (statuses as of 04/15/2022) [facility]* Problem Noted Date Resolved Date Low bone mass 08/20/2020 10/07/2021 Inguinal hernia, left 07/03/2018 09/12/2018 Pulmonary hypertension 05/30/2018 1 documented as of this encounter (statuses as of 04/16/2022) [facility]* Problem Noted Date Resolved Date Low bone mass 08/20/2020 10/07/2021 Inguinal hernia, left 07/03/2018 09/12/2018 Pulmonary hypertension 05/30/2018 1 documented as of this encounter (statuses as of 04/27/2022) [facility]* Problem Noted Date Resolved Date Low bone mass 08/20/2020 10/07/2021 Inguinal hernia, left 07/03/2018 09/12/2018 Pulmonary hypertension 05/30/2018 1 documented as of this encounter (statuses as of 04/30/2022) [facility]2021 History of Past illness Narrative* Problem Noted Date Resolved Date Low bone mass 08/20/2020 10/07/2021 Inguinal hernia, left 07/03/2018 09/12/2018 Pulmonary hypertension 05/30/2018 1 documented as of this encounter (statuses as of 05/03/2022) [facility]2021 History of Past illness Narrative* Problem Noted Date Resolved Date Low bone mass 08/20/2020 10/07/2021 Inguinal hernia, left 07/03/2018 09/12/2018 Pulmonary hypertension 05/30/2018 1 documented as of this encounter (statuses as of 05/05/2022) [facility]21 History of Past illness Narrative* Problem Noted Date Resolved Date Low bone mass 08/20/2020 10/07/2021 Inguinal hernia, left 07/03/2018 09/12/2018 Pulmonary hypertension 05/30/2018 1 documented as of this encounter (statuses as of 05/13/2022) [facility]21 History of Past illness Narrative* Problem Noted Date Resolved Date Low bone mass 08/20/2020 10/07/2021 Inguinal hernia, left 07/03/2018 09/12/2018 Pulmonary hypertension 05/30/2018 1 documented as of this encounter (statuses as of 05/16/2022) [facility] History of Past illness Narrative* Problem Noted Date Resolved Date Low bone mass 08/20/2020 10/07/2021 Inguinal hernia, left 07/03/2018 09/12/2018 Pulmonary hypertension 05/30/2018 1 documented as of this encounter (statuses as of 05/17/2022) [facility] History of Past illness Narrative* Problem Noted Date Resolved Date Low bone mass 08/20/2020 10/07/2021 Inguinal hernia, left 07/03/2018 09/12/2018 Pulmonary hypertension 05/30/2018 1 documented as of this encounter (statuses as of 05/20/2022) [address]20-2021 History of Past illness Narrative* Problem Noted Date Resolved Date Low bone mass 08/20/2020 10/07/2021 Inguinal hernia, left 07/03/2018 09/12/2018 Pulmonary hypertension 05/30/2018 1 documented as of this encounter (statuses as of 05/20/2022) [facility] History of Past illness Narrative* Problem Noted Date Resolved Date Low bone mass 08/20/2020 10/07/2021 Inguinal hernia, left 07/03/2018 09/12/2018 Pulmonary hypertension 05/30/2018 1 documented as of this encounter (statuses as of 05/25/2022) [facility] History of Past illness Narrative* Problem Noted Date Resolved Date Low bone mass 08/20/2020 10/07/2021 Inguinal hernia, left 07/03/2018 09/12/2018 Pulmonary hypertension 05/30/2018 1 documented as of this encounter (statuses as of 05/25/2022) [facility] History of Past illness Narrative* Problem Noted Date Resolved Date Low bone mass 08/20/2020 10/07/2021 Inguinal hernia, left 07/03/2018 09/12/2018 Pulmonary hypertension 05/30/2018 1 documented as of this encounter (statuses as of 05/26/2022) [facility] History of Past illness Narrative* Problem Noted Date Resolved Date Low bone mass 08/20/2020 10/07/2021 Inguinal hernia, left 07/03/2018 09/12/2018 Pulmonary hypertension 05/30/2018 1 documented as of this encounter (statuses as of 05/27/2022) [facility] History of Past illness Narrative* Problem Noted Date Resolved Date Low bone mass 08/20/2020 10/07/2021 Inguinal hernia, left 07/03/2018 09/12/2018 Pulmonary hypertension 05/30/2018 1 documented as of this encounter (statuses as of 05/30/2022) [facility] History of Past illness Narrative* Problem Noted Date Resolved Date Low bone mass 08/20/2020 10/07/2021 Inguinal hernia, left 07/03/2018 09/12/2018 Pulmonary hypertension 05/30/2018 1 documented as of this encounter (statuses as of 05/31/2022) [facility] History of Past illness Narrative* Problem Noted Date Resolved Date Low bone mass 08/20/2020 10/07/2021 Inguinal hernia, left 07/03/2018 09/12/2018 Pulmonary hypertension 05/30/2018 1 documented as of this encounter (statuses as of 06/03/2022) [facility] History of Past illness Narrative* Problem Noted Date Resolved Date Low bone mass 08/20/2020 10/07/2021 Inguinal hernia, left 07/03/2018 09/12/2018 Pulmonary hypertension 05/30/2018 1 documented as of this encounter (statuses as of 06/06/2022) [facility] History of Past illness Narrative* Problem Noted Date Resolved Date Low bone mass 08/20/2020 10/07/2021 Inguinal hernia, left 07/03/2018 09/12/2018 Pulmonary hypertension 05/30/2018 1 documented as of this encounter (statuses as of 06/10/2022) [facility] History of Past illness Narrative* Problem Noted Date Resolved Date Low bone mass 08/20/2020 10/07/2021 Inguinal hernia, left 07/03/2018 09/12/2018 Pulmonary hypertension 05/30/2018 1 documented as of this encounter (statuses as of 06/11/2022) [facility] History of Past illness Narrative* Problem Noted Date Resolved Date Low bone mass 08/20/2020 10/07/2021 Inguinal hernia, left 07/03/2018 09/12/2018 Pulmonary hypertension 05/30/2018 1 documented as of this encounter (statuses as of 06/15/2022) [facility] History of Past illness Narrative* Problem Noted Date Resolved Date Low bone mass 08/20/2020 10/07/2021 Inguinal hernia, left 07/03/2018 09/12/2018 Pulmonary hypertension 05/30/2018 1 documented as of this encounter (statuses as of 06/17/2022) [facility] History of Past illness Narrative* Problem Noted Date Resolved Date Low bone mass 08/20/2020 10/07/2021 Inguinal hernia, left 07/03/2018 09/12/2018 Pulmonary hypertension 05/30/2018 1 documented as of this encounter (statuses as of 06/26/2022) [facility] History of Past illness Narrative* Problem Noted Date Resolved Date Low bone mass 08/20/2020 10/07/2021 Inguinal hernia, left 07/03/2018 09/12/2018 Pulmonary hypertension 05/30/2018 1 documented as of this encounter (statuses as of 06/28/2022) [facility] History of Past illness Narrative* Problem Noted Date Resolved Date Low bone mass 08/20/2020 10/07/2021 Inguinal hernia, left 07/03/2018 09/12/2018 Pulmonary hypertension 05/30/2018 1 documented as of this encounter (statuses as of 06/28/2022) [facility] History of Past illness Narrative* Problem Noted Date Resolved Date Low bone mass 08/20/2020 10/07/2021 Inguinal hernia, left 07/03/2018 09/12/2018 Pulmonary hypertension 05/30/2018 1 documented as of this encounter (statuses as of 06/29/2022) [facility] History of Past illness Narrative* Problem Noted Date Resolved Date Low bone mass 08/20/2020 10/07/2021 Inguinal hernia, left 07/03/2018 09/12/2018 Pulmonary hypertension 05/30/2018 1 documented as of this encounter (statuses as of 07/04/2022) [facility] History of Past illness Narrative* Problem Noted Date Resolved Date Low bone mass 08/20/2020 10/07/2021 Inguinal hernia, left 07/03/2018 09/12/2018 Pulmonary hypertension 05/30/2018 1 documented as of this encounter (statuses as of 07/11/2022) [place] [address]20-2021 History of Past illness Narrative* Problem Noted Date Resolved Date Low bone mass 08/20/2020 10/07/2021 Inguinal hernia, left 07/03/2018 09/12/2018 Pulmonary hypertension 05/30/2018 1 documented as of this encounter (statuses as of 07/14/2022) [facility] History of Past illness Narrative* Problem Noted Date Resolved Date Low bone mass 08/20/2020 10/07/2021 Inguinal hernia, left 07/03/2018 09/12/2018 Pulmonary hypertension 05/30/2018 1 documented as of this encounter (statuses as of 07/16/2022) [facility] History of Past illness Narrative* Problem Noted Date Resolved Date Low bone mass 08/20/2020 10/07/2021 Inguinal hernia, left 07/03/2018 09/12/2018 Pulmonary hypertension 05/30/2018 1 documented as of this encounter (statuses as of 07/27/2022) [facility] History of Past illness Narrative* Problem Noted Date Resolved Date Low bone mass 08/20/2020 10/07/2021 Inguinal hernia, left 07/03/2018 09/12/2018 Pulmonary hypertension 05/30/2018 1 documented as of this encounter (statuses as of 08/03/2022) [facility] History of Past illness Narrative* Problem Noted Date Resolved Date Low bone mass 08/20/2020 10/07/2021 Inguinal hernia, left 07/03/2018 09/12/2018 Pulmonary hypertension 05/30/2018 1 documented as of this encounter (statuses as of 08/04/2022) [facility] History of Past illness Narrative* Problem Noted Date Resolved Date Low bone mass 08/20/2020 10/07/2021 Inguinal hernia, left 07/03/2018 09/12/2018 Pulmonary hypertension 05/30/2018 1 documented as of this encounter (statuses as of 09/01/2022) [facility] History of Past illness Narrative* Problem Noted Date Resolved Date Low bone mass 08/20/2020 10/07/2021 Inguinal hernia, left 07/03/2018 09/12/2018 Pulmonary hypertension 05/30/2018 1 documented as of this encounter (statuses as of 09/02/2022) [facility] History of Past illness Narrative* Problem Noted Date Resolved Date Low bone mass 08/20/2020 10/07/2021 Inguinal hernia, left 07/03/2018 09/12/2018 Pulmonary hypertension 05/30/2018 1 documented as of this encounter (statuses as of 09/16/2022) [facility] History of Past illness Narrative* Problem Noted Date Resolved Date Low bone mass 08/20/2020 10/07/2021 Inguinal hernia, left 07/03/2018 09/12/2018 Pulmonary hypertension 05/30/2018 1 documented as of this encounter (statuses as of 09/22/2022) [facility] History of Past illness Narrative* Problem Noted Date Resolved Date Low bone mass 08/20/2020 10/07/2021 Inguinal hernia, left 07/03/2018 09/12/2018 Pulmonary hypertension 05/30/2018 1 documented as of this encounter (statuses as of 10/06/2022) [facility] History of Past illness Narrative* Problem Noted Date Diagnosed Date Resolved Date Low bone mass 08/20/2020 10/07/2021 Inguinal hernia, left 07/03/20182018 Pulmonary hypertension 05/30/201808/20 documented as of this encounter (statuses as of 10/13/2022) [facility] History of Past illness Narrative* Problem Noted Date Diagnosed Date Resolved Date Low bone mass 08/20/2020 10/07/2021 Liver transplant candidate 05/01/2019 0 10/31/2022 Hepatic encephalopathy 03/06/201910/31 Inguinal hernia, left 07/03/20182018 Liver cyst 07/03/2018 10/31/2022 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 Pulmonary hypertension 05/30/201808/20 documented as of this encounter (statuses as of 10/31/2022) [facility] History of Past illness Narrative* Problem Noted Date Diagnosed Date Resolved Date Low bone mass 08/20/2020 10/07/2021 Liver transplant candidate 05/01/2019 0 10/31/2022 Hepatic encephalopathy 03/06/201910/31 Inguinal hernia, left 07/03/20182018 Liver cyst 07/03/2018 10/31/2022 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 Pulmonary hypertension 05/30/201808/20 documented as of this encounter (statuses as of 11/08/2022) [facility] History of Past illness Narrative* Problem Noted Date Diagnosed Date Resolved Date Low bone mass 08/20/2020 10/07/2021 Liver transplant candidate 05/01/2019 0 10/31/2022 Hepatic encephalopathy 03/06/201910/31 Inguinal hernia, left 07/03/20182018 Liver cyst 07/03/2018 10/31/2022 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 Pulmonary hypertension 05/30/201808/20 documented as of this encounter (statuses as of 11/11/2022) [facility] History of Past illness Narrative* Problem Noted Date Diagnosed Date Resolved Date Low bone mass 08/20/2020 10/07/2021 Liver transplant candidate 05/01/2019 0 10/31/2022 Hepatic encephalopathy 03/06/201910/31 Inguinal hernia, left 07/03/20182018 Liver cyst 07/03/2018 10/31/2022 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 Pulmonary hypertension 05/30/201808/20 documented as of this encounter (statuses as of 11/11/2022) [facility] History of Past illness Narrative* Problem Noted Date Diagnosed Date Resolved Date Low bone mass 08/20/2020 10/07/2021 Liver transplant candidate 05/01/2019 0 10/31/2022 Hepatic encephalopathy 03/06/201910/31 Inguinal hernia, left 07/03/20182018 Liver cyst 07/03/2018 10/31/2022 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 Pulmonary hypertension 05/30/201808/20 documented as of this encounter (statuses as of 11/11/2022) [facility] History of Past illness Narrative* Problem Noted Date Diagnosed Date Resolved Date Low bone mass 08/20/2020 10/07/2021 Liver transplant candidate 05/01/2019 0 10/31/2022 Hepatic encephalopathy 03/06/201910/31 Inguinal hernia, left 07/03/20182018 Liver cyst 07/03/2018 10/31/2022 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 Pulmonary hypertension 05/30/201808/20 documented as of this encounter (statuses as of 11/11/2022) [facility] History of Past illness Narrative* Problem Noted Date Diagnosed Date Resolved Date Low bone mass 08/20/2020 10/07/2021 Liver transplant candidate 05/01/2019 0 10/31/2022 Hepatic encephalopathy 03/06/201910/31 Inguinal hernia, left 07/03/20182018 Liver cyst 07/03/2018 10/31/2022 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 Pulmonary hypertension 05/30/201808/20 documented as of this encounter (statuses as of 11/15/2022) [facility] History of Past illness Narrative* Problem Noted Date Diagnosed Date Resolved Date Low bone mass 08/20/2020 10/07/2021 Liver transplant candidate 05/01/2019 0 10/31/2022 Hepatic encephalopathy 03/06/201910/31 Inguinal hernia, left 07/03/20182018 Liver cyst 07/03/2018 10/31/2022 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 Pulmonary hypertension 05/30/201808/20 documented as of this encounter (statuses as of 11/15/2022) [facility] History of Past illness Narrative* Problem Noted Date Diagnosed Date Resolved Date Low bone mass 08/20/2020 10/07/2021 Liver transplant candidate 05/01/2019 0 10/31/2022 Hepatic encephalopathy 03/06/201910/31 Inguinal hernia, left 07/03/20182018 Liver cyst 07/03/2018 10/31/2022 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 Pulmonary hypertension 05/30/201808/20 documented as of this encounter (statuses as of 11/16/2022) [facility] History of Past illness Narrative* Problem Noted Date Diagnosed Date Resolved Date Low bone mass 08/20/2020 10/07/2021 Liver transplant candidate 05/01/2019 0 10/31/2022 Hepatic encephalopathy 03/06/201910/31 Inguinal hernia, left 07/03/20182018 Liver cyst 07/03/2018 10/31/2022 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 Pulmonary hypertension 05/30/201808/20 documented as of this encounter (statuses as of 11/18/2022) [facility] History of Past illness Narrative* Problem Noted Date Diagnosed Date Resolved Date Low bone mass 08/20/2020 10/07/2021 Liver transplant candidate 05/01/2019 0 10/31/2022 Hepatic encephalopathy 03/06/201910/31 Inguinal hernia, left 07/03/20182018 Liver cyst 07/03/2018 10/31/2022 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 Pulmonary hypertension 05/30/201808/20 documented as of this encounter (statuses as of 11/20/2022) [facility] History of Past illness Narrative* Problem Noted Date Diagnosed Date Resolved Date Low bone mass 08/20/2020 10/07/2021 Liver transplant candidate 05/01/2019 0 10/31/2022 Hepatic encephalopathy 03/06/201910/31 Inguinal hernia, left 07/03/20182018 Liver cyst 07/03/2018 10/31/2022 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 Pulmonary hypertension 05/30/201808/20 documented as of this encounter (statuses as of 12/09/2022) [facility] History of Past illness Narrative* Problem Noted Date Diagnosed Date Resolved Date Low bone mass 08/20/2020 10/07/2021 Liver transplant candidate 05/01/2019 0 10/31/2022 Hepatic encephalopathy 03/06/201910/31 Inguinal hernia, left 07/03/20182018 Liver cyst 07/03/2018 10/31/2022 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 Pulmonary hypertension 05/30/201808/20 documented as of this encounter (statuses as of 01/12/2023) [facility] History of Past illness Narrative* Problem Noted Date Diagnosed Date Resolved Date Low bone mass 08/20/2020 10/07/2021 Liver transplant candidate 05/01/2019 0 10/31/2022 Hepatic encephalopathy 03/06/201910/31 Inguinal hernia, left 07/03/20182018 Liver cyst 07/03/2018 10/31/2022 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 Pulmonary hypertension 05/30/201808/20 documented as of this encounter (statuses as of 01/18/2023) [facility] History of Past illness Narrative* Problem Noted Date Diagnosed Date Resolved Date Low bone mass 08/20/2020 10/07/2021 Liver transplant candidate 05/01/2019 0 10/31/2022 Hepatic encephalopathy 03/06/201910/31 Inguinal hernia, left 07/03/20182018 Liver cyst 07/03/2018 10/31/2022 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 Pulmonary hypertension 05/30/201808/20 documented as of this encounter (statuses as of 02/02/2023) [facility] History of Past illness Narrative* Problem Noted Date Diagnosed Date Resolved Date Low bone mass 08/20/2020 10/07/2021 Liver transplant candidate 05/01/2019 0 10/31/2022 Hepatic encephalopathy 03/06/201910/31 Inguinal hernia, left 07/03/20182018 Liver cyst 07/03/2018 10/31/2022 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 Pulmonary hypertension 05/30/201808/20 documented as of this encounter (statuses as of 02/06/2023) [facility] History of Past illness Narrative* Problem Noted Date Diagnosed Date Resolved Date Low bone mass 08/20/2020 10/07/2021 Liver transplant candidate 05/01/2019 0 10/31/2022 Hepatic encephalopathy 03/06/201910/31 Inguinal hernia, left 07/03/20182018 Liver cyst 07/03/2018 10/31/2022 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 Pulmonary hypertension 05/30/201808/20 documented as of this encounter (statuses as of 02/06/2023) [facility] History of Past illness Narrative* Problem Noted Date Diagnosed Date Resolved Date Low bone mass 08/20/2020 10/07/2021 Liver transplant candidate 05/01/2019 0 10/31/2022 Hepatic encephalopathy 03/06/201910/31 Inguinal hernia, left 07/03/20182018 Liver cyst 07/03/2018 10/31/2022 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 Pulmonary hypertension 05/30/201808/20 documented as of this encounter (statuses as of 02/06/2023) [facility] History of Past illness Narrative* Problem Noted Date Diagnosed Date Resolved Date Low bone mass 08/20/2020 10/07/2021 Liver transplant candidate 05/01/2019 0 10/31/2022 Hepatic encephalopathy 03/06/201910/31 Inguinal hernia, left 07/03/20182018 Liver cyst 07/03/2018 10/31/2022 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 Pulmonary hypertension 05/30/201808/20 documented as of this encounter (statuses as of 02/06/2023) [facility] History of Past illness Narrative* Problem Noted Date Diagnosed Date Resolved Date Low bone mass 08/20/2020 10/07/2021 Liver transplant candidate 05/01/2019 0 10/31/2022 Hepatic encephalopathy 03/06/201910/31 Inguinal hernia, left 07/03/20182018 Liver cyst 07/03/2018 10/31/2022 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 Pulmonary hypertension 05/30/201808/20 documented as of this encounter (statuses as of 05/11/2023) [facility] History of Past illness Narrative* Problem Noted Date Diagnosed Date Resolved Date Low bone mass 08/20/2020 10/07/2021 Liver transplant candidate 05/01/2019 0 10/31/2022 Hepatic encephalopathy 03/06/201910/31 Inguinal hernia, left 07/03/20182018 Liver cyst 07/03/2018 10/31/2022 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 Pulmonary hypertension 05/30/201808/20 documented as of this encounter (statuses as of 05/22/2023) [facility] History of Past illness Narrative* Problem Noted Date Diagnosed Date Resolved Date Low bone mass 08/20/2020 10/07/2021 Liver transplant candidate 05/01/2019 0 10/31/2022 Hepatic encephalopathy 03/06/201910/31 Inguinal hernia, left 07/03/20182018 Liver cyst 07/03/2018 10/31/2022 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 Pulmonary hypertension 05/30/201808/20 documented as of this encounter (statuses as of 05/25/2023) [facility] History of Past illness Narrative* Problem Noted Date Diagnosed Date Resolved Date Low bone mass 08/20/2020 10/07/2021 Liver transplant candidate 05/01/2019 0 10/31/2022 Hepatic encephalopathy 03/06/201910/31 Inguinal hernia, left 07/03/20182018 Liver cyst 07/03/2018 10/31/2022 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 Pulmonary hypertension 05/30/201808/20 documented as of this encounter (statuses as of 05/25/2023) [address]20-2021 History of Past illness Narrative* Problem Noted Date Diagnosed Date Resolved Date Low bone mass 08/20/2020 10/07/2021 Liver transplant candidate 05/01/2019 0 10/31/2022 Hepatic encephalopathy 03/06/201910/31 Inguinal hernia, left 07/03/20182018 Liver cyst 07/03/2018 10/31/2022 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 Pulmonary hypertension 05/30/201808/20 documented as of this encounter (statuses as of 07/13/2023) [facility] History of Past illness Narrative* Problem Noted Date Resolved Date Inguinal hernia, left 07/03/2018 09/12/2018 Pulmonary hypertension 05/30/2018 1 documented as of this encounter (statuses as of 06/29/2021) [facility] History of Past illness Narrative* Problem Noted Date Resolved Date Inguinal hernia, left 07/03/2018 09/12/2018 Pulmonary hypertension 05/30/2018 1 documented as of this encounter (statuses as of 06/30/2021) [facility] History of Past illness Narrative* Problem Noted Date Resolved Date Inguinal hernia, left 07/03/2018 09/12/2018 Pulmonary hypertension 05/30/2018 1 documented as of this encounter (statuses as of 07/13/2021) [facility] History of Past illness Narrative* Problem Noted Date Resolved Date Inguinal hernia, left 07/03/2018 09/12/2018 Pulmonary hypertension 05/30/2018 1 documented as of this encounter (statuses as of 07/14/2021) [facility] History of Past illness Narrative* Problem Noted Date Resolved Date Inguinal hernia, left 07/03/2018 09/12/2018 Pulmonary hypertension 05/30/2018 1 documented as of this encounter (statuses as of 07/14/2021) [facility] History of Past illness Narrative* Problem Noted Date Resolved Date Inguinal hernia, left 07/03/2018 09/12/2018 Pulmonary hypertension 05/30/2018 1 documented as of this encounter (statuses as of 07/17/2021) [address]02-2019 History of Past illness Narrative* Problem Noted Date Resolved Date Inguinal hernia, left 07/03/2018 09/12/2018 Pulmonary hypertension 05/30/2018 1 documented as of this encounter (statuses as of 07/19/2021) [place] [address]02-2019 History of Past illness Narrative* Problem Noted Date Resolved Date Inguinal hernia, left 07/03/2018 09/12/2018 Pulmonary hypertension 05/30/2018 1 documented as of this encounter (statuses as of 07/31/2021) [address]02-2019 History of Past illness Narrative* Problem Noted Date Resolved Date Inguinal hernia, left 07/03/2018 09/12/2018 Pulmonary hypertension 05/30/2018 1 documented as of this encounter (statuses as of 08/10/2021) [address]02-2019 History of Past illness Narrative* Problem Noted Date Resolved Date Inguinal hernia, left 07/03/2018 09/12/2018 Pulmonary hypertension 05/30/2018 1 documented as of this encounter (statuses as of 09/10/2021) [address]02-2019 History of Past illness Narrative* Problem Noted Date Resolved Date Inguinal hernia, left 07/03/2018 09/12/2018 Pulmonary hypertension 05/30/2018 1 documented as of this encounter (statuses as of 09/13/2021) [facility] History of Past illness Narrative* Problem Noted Date Resolved Date Inguinal hernia, left 07/03/2018 09/12/2018 Pulmonary hypertension 05/30/2018 1 documented as of this encounter (statuses as of 09/13/2021) [address]02-2019 History of Past illness Narrative* Problem Noted Date Resolved Date Inguinal hernia, left 07/03/2018 09/12/2018 Pulmonary hypertension 05/30/2018 1 documented as of this encounter (statuses as of 09/17/2021) [place] [address]02-2019 History of Past illness Narrative* Problem Noted Date Resolved Date Inguinal hernia, left 07/03/2018 09/12/2018 Pulmonary hypertension 05/30/2018 1 documented as of this encounter (statuses as of 09/18/2021) [facility] History of Past illness Narrative* Problem Noted Date Resolved Date Inguinal hernia, left 07/03/2018 09/12/2018 Pulmonary hypertension 05/30/2018 1 documented as of this encounter (statuses as of 09/20/2021) [facility] History of Past illness Narrative* Problem Noted Date Resolved Date Inguinal hernia, left 07/03/2018 09/12/2018 Pulmonary hypertension 05/30/2018 1 documented as of this encounter (statuses as of 10/05/2021) [facility] [facility] [place] [facility] Diagnosis Other ascites- Primary [facility] [place] [facility] Diagnosis 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 Liver transplant candidate Elevated tumor markers Other abnormal tumor markers Abnormal results of liver function studies Nonspecific abnormal results of liver function study [facility] [place] [facility]* Diagnosis Vitamin A deficiency- Primary Unspecified vitamin A deficiency Vitamin D deficiency Unspecified vitamin D deficiency Cirrhosis of liver with ascites, unspecified hepatic cirrhosis type (HCC) [facility] [place] [facility]* Diagnosis Cirrhosis of liver with ascites, unspecified hepatic cirrhosis type (HCC)- [facility] Cirrhosis of liver with ascites, unspecified hepatic cirrhosis type (HCC) [facility] [place] [facility]* Diagnosis 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 Lung nodules Other nonspecific abnormal finding of lung field Other ascites Vitamin A deficiency Unspecified vitamin A deficiency Vitamin D deficiency Unspecified vitamin D deficiency Liver transplant candidate Portal hypertension with esophageal varices (HCC) Portal hypertension Hepatic encephalopathy (HCC) Hepatic encephalopathy History of colonic polyps Personal history of colonic polyps Iron deficiency anemia, unspecified iron deficiency anemia type Portal hypertensive gastropathy (HCC) Other specified disorder of stomach and duodenum Sarcopenia Muscular wasting and disuse atrophy, not elsewhere classified Osteopenia, unspecified location [facility] 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 [facility] [place] [facility]* Diagnosis Cirrhosis of liver with ascites, unspecified hepatic cirrhosis type (HCC) [facility] [place] [facility]* Diagnosis Vitamin A deficiency Unspecified vitamin A deficiency [facility] [place] [facility]* Diagnosis Liver transplant candidate [place] (nonalcoholic steatohepatitis) Other chronic nonalcoholic liver disease documented in this encounter [facility] note* Diagnosis 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 Other ascites Liver transplant candidate Portal hypertension with esophageal varices (HCC) Portal hypertension Hepatic encephalopathy (HCC) Hepatic encephalopathy History of colonic polyps Personal history of colonic polyps Vitamin D deficiency Unspecified vitamin D deficiency Vitamin A deficiency Unspecified vitamin A deficiency [facility] [place] [facility]* Diagnosis Cirrhosis of liver with ascites, unspecified hepatic cirrhosis type (HCC) [facility] [place] [facility]* Diagnosis Age-related osteoporosis without current pathological fracture- Primary Senile osteoporosis Vitamin D deficiency Unspecified vitamin D deficiency 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 Liver transplant candidate Incisional hernia, without obstruction or gangrene- Primary Incisional hernia without mention of obstruction or gangrene documented in this encounter [facility] note* Diagnosis Incisional hernia, without obstruction or gangrene- Primary Incisional hernia without mention of obstruction or gangrene [facility] [place] [facility]* Diagnosis Cirrhosis of liver with ascites, unspecified hepatic cirrhosis type (HCC) documented in this encounter [facility] note* Diagnosis 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 Preoperative examination Preoperative examination, unspecified Unilateral inguinal hernia without obstruction or gangrene, recurrence not specified documented in this encounter [facility] note* Diagnosis Preoperative examination- Primary Preoperative examination, unspecified Unilateral inguinal hernia without obstruction or gangrene, recurrence not specified Preoperative examination Preoperative examination, unspecified Unilateral inguinal hernia without obstruction or gangrene, recurrence not specified documented in this encounter [facility] note* Diagnosis 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 Preoperative examination Preoperative examination, unspecified Unilateral inguinal hernia without obstruction or gangrene, recurrence not specified Portal hypertensive gastropathy (HCC) Other specified disorder of stomach and duodenum Iron deficiency Iron deficiency anemia, unspecified Thrombocytopenia (HCC) Thrombocytopenia, unspecified Essential hypertension Unspecified essential hypertension Abdominal aortic aneurysm (AAA) without rupture (HCC) Other ascites Portal hypertension with esophageal varices (HCC) Portal hypertension Histoplasmosis Histoplasmosis, unspecified without mention of manifestation Preoperative examination Preoperative examination, unspecified Unilateral inguinal hernia without obstruction or gangrene, recurrence not specified [facility] [place] [facility]* Diagnosis Age-related osteoporosis without current pathological fracture- Primary Senile osteoporosis [facility] [place] [facility]* Diagnosis Cirrhosis of liver with ascites, unspecified hepatic cirrhosis type (HCC) [facility] [place] [facility]* Diagnosis Thrombocytopenia (HCC) Thrombocytopenia, unspecified Cirrhosis of liver with ascites, unspecified hepatic cirrhosis type (HCC) Liver transplant candidate [facility] [place] [facility]* Diagnosis Other ascites- Primary [facility] [place] [facility]* Diagnosis 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 [facility] [place] [facility]* Diagnosis Lung nodules Other nonspecific abnormal finding of lung field [facility] [place] [facility]* Diagnosis Cirrhosis of liver with ascites, unspecified hepatic cirrhosis type (HCC)- Primary documented in this encounter [facility] note* Diagnosis Preoperative examination- Primary Preoperative examination, unspecified Unilateral inguinal hernia without obstruction or gangrene, recurrence not specified [facility] [place] [facility]* Diagnosis Pneumonia of right lower lobe due to infectious organism- Primary Chronic rhinitis Preoperative examination Preoperative examination, unspecified Unilateral inguinal hernia without obstruction or gangrene, recurrence not specified [facility] [place] [facility]* Diagnosis Incisional hernia, without obstruction or gangrene- Primary Incisional hernia without mention of obstruction or gangrene Preoperative examination Preoperative examination, unspecified Unilateral inguinal hernia without obstruction or gangrene, recurrence not specified documented in this encounter [facility] note* Diagnosis Pre-operative examination- Primary Preoperative examination, unspecified Essential hypertension Unspecified essential hypertension Dyslipidemia Other and unspecified hyperlipidemia Coronary artery disease involving platinum coronary artery of platinum heart without angina pectoris Chronic obstructive pulmonary disease, unspecified COPD type (HCC) Histoplasmosis Histoplasmosis, unspecified without mention of manifestation Cirrhosis of liver with ascites, unspecified hepatic cirrhosis type (HCC) Portal hypertension with esophageal varices (HCC) Portal hypertension Thrombocytopenia (HCC) Thrombocytopenia, unspecified Preoperative examination Preoperative examination, unspecified Unilateral inguinal hernia without obstruction or gangrene, recurrence not specified documented in this encounter [facility] note* Diagnosis Cirrhosis of liver with ascites, unspecified hepatic cirrhosis type (HCC) Preoperative examination Preoperative examination, unspecified Unilateral inguinal hernia without obstruction or gangrene, recurrence not specified [facility] [place] [facility]* Diagnosis Vitamin D deficiency- Primary Unspecified vitamin D deficiency Cirrhosis of liver with ascites, unspecified hepatic cirrhosis type (HCC) Vitamin A deficiency Unspecified vitamin A deficiency Hepatic encephalopathy Preoperative examination Preoperative examination, unspecified Unilateral inguinal hernia without obstruction or gangrene, recurrence not specified [facility] [place] [facility]* Diagnosis Chronic rhinitis- Primary Pneumonia of right lower lobe due to infectious organism Preoperative examination Preoperative examination, unspecified Unilateral inguinal hernia without obstruction or gangrene, recurrence not specified [facility] [place] [facility]* Diagnosis Preoperative examination- Primary Preoperative examination, unspecified Unilateral inguinal hernia without obstruction or gangrene, recurrence not specified 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 Centrilobular emphysema (HCC) Other emphysema Preoperative examination Preoperative examination, unspecified Unilateral inguinal hernia without obstruction or gangrene, recurrence not specified [facility] [place] [facility]* Diagnosis 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 Preoperative examination Preoperative examination, unspecified Unilateral inguinal hernia without obstruction or gangrene, recurrence not specified [facility] [place] [facility]* Diagnosis Cirrhosis of liver with ascites, unspecified hepatic cirrhosis type (HCC) Preoperative examination Preoperative examination, unspecified Unilateral inguinal hernia without obstruction or gangrene, recurrence not specified [facility] [place] [facility]* Diagnosis Cirrhosis of liver with ascites, unspecified hepatic cirrhosis type (HCC) documented [facility] [place] [facility]* Diagnosis Unilateral inguinal hernia without obstruction or gangrene, recurrence not specified- Primary [facility] [place] [facility]* Diagnosis Unilateral inguinal hernia without obstruction or gangrene, recurrence not specified- Primary [facility] [place] [facility]* Diagnosis Cirrhosis of liver with ascites, unspecified hepatic cirrhosis type (HCC)- Primary [facility] Diagnosis Other ascites- Primary [facility] Diagnosis Other ascites Cirrhosis of liver with ascites, unspecified hepatic cirrhosis type (HCC) [facility] [place] [facility]* Diagnosis Cirrhosis of liver with ascites, unspecified hepatic cirrhosis type (HCC)- Primary Hepatic encephalopathy Liver transplant candidate 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 Thrombocytopenia (HCC) Thrombocytopenia, unspecified Other ascites Portal hypertension with esophageal varices (HCC) Portal hypertension History of colonic polyps Personal history of colonic polyps Vitamin D deficiency Unspecified vitamin D deficiency Vitamin A deficiency Unspecified vitamin A deficiency Unilateral inguinal hernia without obstruction or gangrene, recurrence not specified Iron deficiency anemia, unspecified iron deficiency anemia type Hydrocele, unspecified hydrocele type [facility] [place] [facility]* Diagnosis 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)- Primary Other chronic nonalcoholic liver disease Portal hypertension with esophageal varices (HCC) Portal hypertension Liver transplant candidate Unilateral inguinal hernia without obstruction or gangrene, recurrence not specified Chronic obstructive pulmonary disease, unspecified COPD type (HCC) [facility] [place] [facility]* Diagnosis Unilateral inguinal hernia without obstruction or gangrene, recurrence not specified Hydrocele, unspecified hydrocele type [facility] [place] [facility]* Diagnosis Onset Date Resolution Status Ascites [facility] Work Phone: Evaluation note* Diagnosis 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 [facility] [place] [facility]* Diagnosis Cirrhosis of liver with ascites, unspecified hepatic cirrhosis type (HCC) [facility] [place] [facility]* Diagnosis Liver replaced by transplant (HCC)- Primary Liver replaced by transplant [facility] [place] [facility]* Diagnosis Status post liver transplant (HCC)- Primary Liver replaced by transplant [facility] [place] [facility]* Diagnosis Portal hypertensive gastropathy (HCC) Other specified disorder of stomach and duodenum 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 [facility] [place] [facility]* Diagnosis Research study patient- Primary Liver replaced by transplant (HCC) Liver replaced by transplant [facility] [place] [facility]* Diagnosis Liver transplant recipient (HCC)- Primary [facility] [place] [facility]* Diagnosis Scrotal swelling- Primary Edema of male genital organs Liver transplant recipient (HCC) [facility] [place] [facility]* Diagnosis Steroid-induced hyperglycemia- Primary Other abnormal glucose [facility] Diagnosis Liver replaced by transplant (HCC) Liver replaced by transplant [facility] Diagnosis Liver replaced by transplant (HCC) Liver replaced by transplant [facility] Diagnosis Exposure to hepatitis B- Primary Contact with or exposure to other viral diseases Exposure to hepatitis C Contact with or exposure to other viral diseases Exposure to HIV Contact with or exposure to other viral diseases [facility]* Diagnosis Status post liver transplant (HCC)- Primary Liver replaced by transplant Need for prophylactic immunotherapy [facility] Diagnosis Portal hypertensive gastropathy (HCC) Other specified disorder of stomach and duodenum 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 [facility]* Diagnosis Mass of right inguinal region- Primary Abdominal or pelvic swelling, mass, or lump, right lower quadrant Epididymal cyst Other specified disorder of male genital organs [facility] [place] [facility]* Diagnosis Unilateral inguinal hernia without obstruction or gangrene, recurrence not specified- Primary [facility]* Diagnosis Liver replaced by transplant (HCC)- Primary Liver replaced by transplant [facility] Diagnosis Liver replaced by transplant (HCC)- Primary Liver replaced by transplant [facility]* Diagnosis Unilateral inguinal hernia without obstruction or gangrene, recurrence not specified- Primary [facility]* Diagnosis Liver replaced by transplant (HCC) Liver replaced by transplant [facility] [place] [facility] Diagnosis Research subject- Primary Liver replaced by transplant (HCC) Liver replaced by transplant [facility] Diagnosis Liver replaced by transplant (HCC)- Primary Liver replaced by transplant Immunosuppressed status (HCC) Unspecified disorder of immune mechanism [facility] [place] [facility]* Diagnosis Scrotal swelling Edema of male genital organs Liver transplant recipient (HCC) [facility]* Diagnosis Unilateral inguinal hernia without obstruction or gangrene, recurrence not specified [facility]* Diagnosis Unilateral inguinal hernia without obstruction or gangrene, recurrence not specified [facility] Diagnosis Liver replaced by transplant (HCC)- Primary Liver replaced by transplant Liver replaced by transplant (HCC) Liver replaced by transplant [facility] [place] [facility]* Diagnosis Liver replaced by transplant (HCC) Liver replaced by transplant [facility] [place] [facility]* Diagnosis Acute left-sided low back pain with left-sided sciatica- Primary S/P lumbar laminectomy Other postprocedural status [facility] [place] [facility]* Diagnosis Liver replaced by transplant (HCC) Liver replaced by transplant [facility] [place] [facility]* Diagnosis Liver replaced by transplant (HCC) Liver replaced by transplant [facility] [place] [facility]* Diagnosis Liver replaced by transplant (HCC)- Primary Liver replaced by transplant [facility] [place] [facility]* Diagnosis Unilateral inguinal hernia without obstruction or gangrene, recurrence not specified documented in this encounter [facility] note* Diagnosis 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 [facility] [place] [facility]* Diagnosis Other ascites documented in this encounter [facility] noteNo assessment information [facility] Work Phone: Evaluation note* Diagnosis Portal hypertension with esophageal varices (HCC) Portal hypertension [facility] [place] [facility]* Diagnosis 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 Preoperative examination Preoperative examination, unspecified Unilateral inguinal hernia without obstruction or gangrene, recurrence not specified Portal hypertensive gastropathy (HCC) (HCC) Other specified disorder of stomach and duodenum Iron deficiency Iron deficiency anemia, unspecified Thrombocytopenia (HCC) Thrombocytopenia, unspecified Essential hypertension Unspecified essential hypertension Abdominal aortic aneurysm (AAA) without rupture (HCC) Other ascites Portal hypertension with esophageal varices (HCC) Portal hypertension Histoplasmosis Histoplasmosis, unspecified without mention of manifestation Pre-operative examination- Primary Preoperative examination, unspecified Essential hypertension Unspecified essential hypertension Dyslipidemia Other and unspecified hyperlipidemia Coronary artery disease involving platinum coronary artery of platinum heart without angina pectoris Chronic obstructive pulmonary disease, unspecified COPD type (HCC) Histoplasmosis Histoplasmosis, unspecified without mention of manifestation Cirrhosis of liver with ascites, unspecified hepatic cirrhosis type (HCC) (HCC) Portal hypertension with esophageal varices (HCC) Portal hypertension Thrombocytopenia (HCC) Thrombocytopenia, unspecified Cirrhosis of liver with ascites, unspecified hepatic cirrhosis type (HCC) (HCC)- Primary Transplant recipient Other specified organ or tissue replaced by transplant Coagulopathy (HCC) Other and unspecified coagulation defects Anemia, unspecified type Acute postoperative pain Other acute postoperative pain Vitamin D deficiency Unspecified vitamin D deficiency Encounter for therapeutic drug monitoring Long-term current use of tacrolimus 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 Encounter for long-term (current) use of other medications detention current use of systemic steroids Encounter for long-term (current) use of steroids Liver replaced by transplant (HCC) Liver replaced by transplant Essential hypertension, malignant Thrombocytopenia, unspecified (HCC) Thrombocytopenia, unspecified Atherosclerosis of platinum coronary artery without angina pectoris, unspecified whether platinum or transplanted heart Respiratory system complication of care Acute posthemorrhagic anemia Hyperglycemia Other abnormal glucose Acute postoperative pulmonary insufficiency (HCC) Acute blood loss anemia Acute posthemorrhagic anemia CAD (coronary artery disease) Coronary atherosclerosis of unspecified type of vessel, platinum or graft Essential hypertension Unspecified essential hypertension Thrombocytopenia (HCC) Thrombocytopenia, unspecified Liver transplant recipient (HCC) Need for prophylactic immunotherapy Hyperglycemia Other abnormal glucose Elevated LFTs- Primary Other abnormal blood chemistry At risk for bleeding Other specified conditions influencing health status Elevated LFTs Other abnormal blood chemistry [facility] [place] [facility]* Diagnosis 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 Preoperative examination Preoperative examination, unspecified Unilateral inguinal hernia without obstruction or gangrene, recurrence not specified Portal hypertensive gastropathy (HCC) (HCC) Other specified disorder of stomach and duodenum Iron deficiency Iron deficiency anemia, unspecified Thrombocytopenia (HCC) Thrombocytopenia, unspecified Essential hypertension Unspecified essential hypertension Abdominal aortic aneurysm (AAA) without rupture (HCC) Other ascites Portal hypertension with esophageal varices (HCC) Portal hypertension Histoplasmosis Histoplasmosis, unspecified without mention of manifestation Pre-operative examination- Primary Preoperative examination, unspecified Essential hypertension Unspecified essential hypertension Dyslipidemia Other and unspecified hyperlipidemia Coronary artery disease involving platinum coronary artery of platinum heart without angina pectoris Chronic obstructive pulmonary disease, unspecified COPD type (HCC) Histoplasmosis Histoplasmosis, unspecified without mention of manifestation Cirrhosis of liver with ascites, unspecified hepatic cirrhosis type (HCC) (HCC) Portal hypertension with esophageal varices (HCC) Portal hypertension Thrombocytopenia (HCC) Thrombocytopenia, unspecified Cirrhosis of liver with ascites, unspecified hepatic cirrhosis type (HCC) (HCC)- Primary Transplant recipient Other specified organ or tissue replaced by transplant Coagulopathy (HCC) Other and unspecified coagulation defects Anemia, unspecified type Acute postoperative pain Other acute postoperative pain Vitamin D deficiency Unspecified vitamin D deficiency Encounter for therapeutic drug monitoring Long-term current use of tacrolimus Encounter for group home current azathioprine therapy Encounter for long-term (current) use of other medications detention current use of systemic steroids Encounter for long-term (current) use of steroids Liver replaced by transplant (HCC) Liver replaced by transplant Essential hypertension, malignant Thrombocytopenia, unspecified (HCC) Thrombocytopenia, unspecified Atherosclerosis of platinum coronary artery without angina pectoris, unspecified whether platinum or transplanted heart Respiratory system complication of care Acute posthemorrhagic anemia Hyperglycemia Other abnormal glucose Acute postoperative pulmonary insufficiency (HCC) Acute blood loss anemia Acute posthemorrhagic anemia CAD (coronary artery disease) Coronary atherosclerosis of unspecified type of vessel, platinum or graft Essential hypertension Unspecified essential hypertension Thrombocytopenia (HCC) Thrombocytopenia, unspecified Liver transplant recipient (HCC) Need for prophylactic immunotherapy Hyperglycemia Other abnormal glucose Abnormal blood chemistry- Primary Other abnormal blood chemistry Elevated LFTs Other abnormal blood chemistry Elevated LFTs Other abnormal blood [facility] 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 Preoperative examination Preoperative examination, unspecified Unilateral inguinal hernia without obstruction or gangrene, recurrence not specified Portal hypertensive gastropathy (HCC) (HCC) Other specified disorder of stomach and duodenum Iron deficiency Iron deficiency anemia, unspecified Thrombocytopenia (HCC) Thrombocytopenia, unspecified Essential hypertension Unspecified essential hypertension Abdominal aortic aneurysm (AAA) without rupture (HCC) Other ascites Portal hypertension with esophageal varices (HCC) Portal hypertension Histoplasmosis Histoplasmosis, unspecified without mention of manifestation Pre-operative examination- Primary Preoperative examination, unspecified Essential hypertension Unspecified essential hypertension Dyslipidemia Other and unspecified hyperlipidemia Coronary artery disease involving platinum coronary artery of platinum heart without angina pectoris Chronic obstructive pulmonary disease, unspecified COPD type (HCC) Histoplasmosis Histoplasmosis, unspecified without mention of manifestation Cirrhosis of liver with ascites, unspecified hepatic cirrhosis type (HCC) (HCC) Portal hypertension with esophageal varices (HCC) Portal hypertension Thrombocytopenia (HCC) Thrombocytopenia, unspecified Cirrhosis of liver with ascites, unspecified hepatic cirrhosis type (HCC) (HCC)- Primary Transplant recipient Other specified organ or tissue replaced by transplant Coagulopathy (HCC) Other and unspecified coagulation defects Anemia, unspecified type Acute postoperative pain Other acute postoperative pain Vitamin D deficiency Unspecified vitamin D deficiency Encounter for therapeutic drug monitoring Long-term current use of tacrolimus 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 Encounter for long-term (current) use of other medications detention current use of systemic steroids Encounter for long-term (current) use of steroids Liver replaced by transplant (HCC) Liver replaced by transplant Essential hypertension, malignant Thrombocytopenia, unspecified (HCC) Thrombocytopenia, unspecified Atherosclerosis of platinum coronary artery without angina pectoris, unspecified whether platinum or transplanted heart Respiratory system complication of care Acute posthemorrhagic anemia Hyperglycemia Other abnormal glucose Acute postoperative pulmonary insufficiency (HCC) Acute blood loss anemia Acute posthemorrhagic anemia CAD (coronary artery disease) Coronary atherosclerosis of unspecified type of vessel, platinum or graft Essential hypertension Unspecified essential hypertension Thrombocytopenia (HCC) Thrombocytopenia, unspecified Liver transplant recipient (HCC) Need for prophylactic immunotherapy Hyperglycemia Other abnormal glucose Elevated LFTs Other abnormal blood chemistry [facility] [place] [facility] Diagnosis 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 Preoperative examination Preoperative examination, unspecified Unilateral inguinal hernia without obstruction or gangrene, recurrence not specified Portal hypertensive gastropathy (HCC) (HCC) Other specified disorder of stomach and duodenum Iron deficiency Iron deficiency anemia, unspecified Thrombocytopenia (HCC) Thrombocytopenia, unspecified Essential hypertension Unspecified essential hypertension Abdominal aortic aneurysm (AAA) without rupture (HCC) Other ascites Portal hypertension with esophageal varices (HCC) Portal hypertension Histoplasmosis Histoplasmosis, unspecified without mention of manifestation Pre-operative examination- Primary Preoperative examination, unspecified Essential hypertension Unspecified essential hypertension Dyslipidemia Other and unspecified hyperlipidemia Coronary artery disease involving platinum coronary artery of platinum heart without angina pectoris Chronic obstructive pulmonary disease, unspecified COPD type (HCC) Histoplasmosis Histoplasmosis, unspecified without mention of manifestation Cirrhosis of liver with ascites, unspecified hepatic cirrhosis type (HCC) (HCC) Portal hypertension with esophageal varices (HCC) Portal hypertension Thrombocytopenia (HCC) Thrombocytopenia, unspecified Cirrhosis of liver with ascites, unspecified hepatic cirrhosis type (HCC) (HCC)- Primary Transplant recipient Other specified organ or tissue replaced by transplant Coagulopathy (HCC) Other and unspecified coagulation defects Anemia, unspecified type Acute postoperative pain Other acute postoperative pain Vitamin D deficiency Unspecified vitamin D deficiency Encounter for therapeutic drug monitoring Long-term current use of tacrolimus 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 Encounter for long-term (current) use of other medications detention current use of systemic steroids Encounter for long-term (current) use of steroids Liver replaced by transplant (HCC) Liver replaced by transplant Essential hypertension, malignant Thrombocytopenia, unspecified (HCC) Thrombocytopenia, unspecified Atherosclerosis of platinum coronary artery without angina pectoris, unspecified whether platinum or transplanted heart Respiratory system complication of care Acute posthemorrhagic anemia Hyperglycemia Other abnormal glucose Acute postoperative pulmonary insufficiency (HCC) Acute blood loss anemia Acute posthemorrhagic anemia CAD (coronary artery disease) Coronary atherosclerosis of unspecified type of vessel, platinum or graft Essential hypertension Unspecified essential hypertension Thrombocytopenia (HCC) Thrombocytopenia, unspecified Liver transplant recipient (HCC) Need for prophylactic immunotherapy Hyperglycemia Other abnormal glucose Liver replaced by transplant (HCC)- Primary Liver replaced by transplant documented in this encounter [facility] general Narrative - Reported* Type Description Date Medical History A flutter Medical History HTN Medical History [place] cirrhosis Medical History histoplasmosis Medical History Arthritis Medical History cataracts Medical History emphysema Medical History high cholesterol Medical History osteoporosis Surgical History Lung Surgical History microdiskectomy- Dr. Bucio 08/02 011 Surgical History lung Sx 1980 Surgical History hernia x3 Surgical History cataract x2 Surgical History liver transplant Hospitalization History See above surg. hx. Hospitalization History Ascites [facility] Other reason for referral (narrative)* Outpatient Procedure (Routine) - Pending Review Specialty Diagnoses / Procedures Referred By Melinda lopez Referred To Contact [facility] [place] Diagnoses Other ascites Procedures ABDOM PARACENTESIS DX/THER W IMAGING GUIDANCE ABDOM PARACENTESIS DX/THER W IMAGING GUIDANCE Dayna Reyes MD [address] [place] [address] [facility] [place] [address] [place] [id number] Referral ID Status Reason Start Date Expiration Date Visits Requested Visits Authorized [id number] Pending Review Auto-Generat ed Referral 06/29/2021 06/29/2022 52 52 [facility] for referral (narrative)* Diagnostic Procedure Only (Routine) - Pending Review Specialty Diagnoses / Procedures Referred By Melinda lopez Referred To Contact US IMAGING Diagnoses Cirrhosis of liver with ascites, unspecified hepatic cirrhosis type (HCC) Procedures US DOPPLER COMPLETE DUP-SCAN ARTL GREY ABDL/PEL/SCROT&/RPR ORGN COM Dayna Reyes MD [address] [place] [address] Us Imaging Referral ID Status Reason Start Date Expiration Date Visits Requested Visits Authorized [id number] Pending Review Auto-Generat ed Referral 07/12/2021 08/11/2022 1 1 * Diagnostic Procedure Only (Routine) - Pending Review Specialty Diagnoses / Procedures Referred By Contac t Referred To Contact US IMAGING Diagnoses Cirrhosis of liver with ascites, unspecified hepatic cirrhosis type (HCC) Procedures US ABD LIVER VASCULAR US ABDOMINAL REAL TIME W/IMAGE LIMITED DUP-SCAN ARTL GREY ABDL/PEL/SCROT&/RPR ORGN [facility] Dayna Reyes MD [address] [place] [address] Us Imaging Referral ID Status Reason Start Date Expiration Date Visits Requested Visits Authorized [id number] Pending Review Auto-Generat ed Referral 07/12/2021 08/11/2022 1 1 [facility] for referral (narrative)* Diagnostic Procedure Only (Routine) - Pending Review Specialty Diagnoses / Procedures Referred By Contac t Referred To Contact US IMAGING Diagnoses Cirrhosis of liver with ascites, unspecified hepatic cirrhosis type (HCC) Procedures US DOPPLER COMPLETE DUP-SCAN ARTL GREY ABDL/PEL/SCROT&/RPR ORGN [facility] Dayna Reyes MD [address] [place] [address] Us Imaging Referral ID Status Reason Start Date Expiration Date Visits Requested Visits Authorized [id number] Pending Review Auto-Generat ed Referral 07/13/2021 08/12/2022 1 1 * Diagnostic Procedure Only (Routine) - Pending Review Specialty Diagnoses / Procedures Referred By Contac t Referred To Contact US IMAGING Diagnoses Cirrhosis of liver with ascites, unspecified hepatic cirrhosis type (HCC) Procedures US ABD LIVER VASCULAR US ABDOMINAL REAL TIME W/IMAGE LIMITED DUP-SCAN ARTL GREY ABDL/PEL/SCROT&/RPR ORGN COM Dayna Reyes MD [address] [place] [address] Us Imaging Referral ID Status Reason Start Date Expiration Date Visits Requested Visits Authorized [id number] Pending Review Auto-Generat ed Referral 07/13/2021 08/12/2022 1 1 [facility] for referral (narrative)* Diagnostic Procedure Only (Routine) - Closed Specialty Diagnoses / Procedures Referred By Contac t Referred To Contact US IMAGING Diagnoses Cirrhosis of liver with ascites, unspecified hepatic cirrhosis type (HCC) Procedures US ABD LIVER VASCULAR US ABDOMINAL REAL TIME W/IMAGE LIMITED DUP-SCAN ARTL GREY ABDL/PEL/SCROT&/RPR ORGN COM Dayna Reyes MD [address] [place] [address] Us Imaging Referral ID Status Reason Start Date Expiration Date Visits Re quested Visits Authorized [id number] Closed 07/13/2021 04/02/2022 1 1 * Diagnostic Procedure Only (Routine) - Closed Specialty Diagnoses / Procedures Referred By Contac t Referred To Contact US IMAGING Diagnoses Cirrhosis of liver with ascites, unspecified hepatic cirrhosis type (HCC) Procedures US DOPPLER COMPLETE DUP-SCAN ARTL GREY ABDL/PEL/SCROT&/RPR ORGN COM Dayna Reyes MD [address] [place] [address] Us Imaging Referral ID Status Reason Start Date Expiration Date Visits Re quested Visits Authorized [id number] Closed 07/13/2021 04/02/2022 1 1 [facility] for referral (narrative)* Outpatient Procedure (Routine) - Authorized Specialty Diagnoses / Procedures Referred By Contac t Ref[facility] Diagnoses Preoperative examination Unilateral inguinal hernia without obstruction or gangrene, recurrence not specified Procedures ECG COMPLETE ECG ROUTINE ECG W/LEAST 12 LDS W/I&R Tenisha Granados PA-C [address] [place] [address] [facility] [place] [address] [place], [place] [id number] Referral ID Status Reason Start Date Expiration Date Visits Requested Visits Authorized [id number] Authorized Auto-Generat ed Referral 11/11/2021 11/11/2022 1 1 [facility] for referral (narrative)* Diagnostic Procedure Only (Routine) - Closed Specialty Diagnoses / Procedures Referred By Contac t Referred To Contact US IMAGING Diagnoses Cirrhosis of liver with ascites, unspecified hepatic cirrhosis type (HCC) Procedures US DOPPLER COMPLETE DUP-SCAN ARTL GREY ABDL/PEL/SCROT&/RPR ORGN COM Dayna Reyes MD [address] [place] [address] Us Imaging Referral ID Status Reason Start Date Expiration Date V isits Requested Visits Authorized [id number] Closed Auto-Generate d Referral 07/13/2021 08/12/2022 1 1 * Diagnostic Procedure Only (Routine) - Closed Specialty Diagnoses / Procedures Referred By Contac t Referred To Contact US IMAGING Diagnoses Cirrhosis of liver with ascites, unspecified hepatic cirrhosis type (HCC) Procedures US ABD LIVER VASCULAR US ABDOMINAL REAL TIME W/IMAGE LIMITED DUP-SCAN ARTL GREY ABDL/PEL/SCROT&/RPR ORGN COM Dayna Reyes MD [address] [place] [address] Us Imaging Referral ID Status Reason Start Date Expiration Date V isits Requested Visits Authorized [id number] Closed Auto-Generate d Referral 11/30/2021 04/02/2022 1 1 [facility] for referral (narrative)* Diagnostic Procedure Only (Routine) - Pending Review Specialty Diagnoses / Procedures Referred By Contac t Referred To Contact US IMAGING Diagnoses Other ascites Procedures US ASCITES SURVEY US ABDOMINAL REAL TIME W/IMAGE LIMITED Dayna Reyes MD [address] [place] [address] Us Imaging Referral ID Status Reason Start Date Expiration Date Visits Requested Visits Authorized [id number] Pending Review Auto-Generat ed Referral 12/20/2021 01/19/2023 1 1 T [facility] for referral (narrative)* Diagnostic Procedure Only (Routine) - Pending Review Specialty Diagnoses / Procedures Referred By Contac t Referred To Contact US IMAGING Diagnoses Cirrhosis of liver with ascites, unspecified hepatic cirrhosis type (HCC) Procedures US ASCITES SURVEY US ABDOMINAL REAL TIME W/IMAGE LIMITED Dayna Reyes MD [address] [place] [address] Us Imaging Referral ID Status Reason Start Date Expiration Date Visits Requested Visits Authorized [id number] Pending Review Auto-Generat ed Referral 01/05/2022 02/04/2023 1 1 T [facility] for referral (narrative)* Outpatient Procedure (Routine) - Pending Review Specialty Diagnoses / Procedures Referred By Contac t Referred To [facility] Diagnoses Chronic rhinitis Pneumonia of right lower lobe due to infectious organism Procedures SPIROMETRY WITH DILATOR IF OBSTRUCTED BRNCDILAT RSPSE SPMTRY PRE&POST-BRNCDILAT ADMN Lakshmi Cr DO [address] [place] [address] [facility] [place] [address] [place] [address] Referral ID Status Reason Start Date Expiration Date Visits Requested Visits Authorized [id number] Pending Review Auto-Generat ed Referral 2 02/12/2023 1 1 [facility] for referral (narrative)* Diagnostic Procedure Only (Routine) - Closed Specialty Diagnoses / Procedures Referred By Contac t Referred To Contact US IMAGING Diagnoses Cirrhosis of liver with ascites, unspecified hepatic cirrhosis type (HCC) Procedures US ASCITES SURVEY US ABDOMINAL REAL TIME W/IMAGE LIMITED Dayna Reyes MD [address] [place] [address] Us Imaging Referral ID Status Reason Start Date Expiration Date V isits Requested Visits Authorized [id number] Closed Auto-Generate d Referral 01/20/2022 04/02/2022 1 1 [facility] for referral (narrative)* Diagnostic Procedure Only (Routine) - Authorized Specialty Diagnoses / Procedures Referred By Contac t Referred To Contact US IMAGING Diagnoses 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) Procedures US ASCITES SURVEY US ABDOMINAL REAL TIME W/IMAGE LIMITED Dayna Reyes MD [address] [place] [address] Us Imaging Referral ID Status Reason Start Date Expiration Date Visits Requested Visits Authorized [id number] Authorized Auto-Generat ed Referral 2 04/02/2022 1 1 [facility] for referral (narrative)* Outpatient Procedure (Routine) - Pending Review Specialty Diagnoses / Procedures Referred By Contac t Referred To Contact [facility] Diagnoses Cirrhosis of liver with ascites, unspecified hepatic cirrhosis type (HCC) Procedures ABDOM PARACENTESIS DX/THER W IMAGING GUIDANCE ABDOM PARACENTESIS DX/THER W IMAGING GUIDANCE Dayna Reyes MD [address] [place] [address] [facility] [place] [address] Referral ID Status Reason Start Date Expiration Date Visits Requested Visits Authorized [id number] Pending Review Auto-Generat ed Referral 03/17/2023 52 1 [facility] for referral (narrative)* Outpatient Procedure (Routine) - Closed Specialty Diagnoses / Procedures Referred By Melinda lopez Referred To Contact [facility] [place] Diagnoses Cirrhosis of liver with ascites, unspecified hepatic cirrhosis type (HCC) Procedures ABDOM PARACENTESIS DX/THER W IMAGING GUIDANCE ABDOM PARACENTESIS DX/THER W IMAGING GUIDANCE Dayna Reyes MD [address] [place] [address] [address] Referral ID Status Reason Start Date Expiration Date V isits Requested Visits Authorized [id number] Closed Auto-Generate d Referral 03/17/2022 03/17/2023 52 1 * Diagnostic Procedure Only (Routine) - Closed Specialty Diagnoses / Procedures Referred By Melinda lopez Referred To Contact [facility] [place] Diagnoses Other ascites Procedures ABDOM PARACENTESIS DX/THER W IMAGING GUIDANCE ABDOM PARACENTESIS DX/THER W IMAGING GUIDANCE Dayna Reyes MD [address] [place] [address] [address] Referral ID Status Reason Start Date Expiration Date Visits Re quested Visits Authorized [id number] Closed 07/13/2021 04/02/2022 52 1 [facility] for referral (narrative)* Diagnostic Procedure Only (Routine) - Authorized Specialty Diagnoses / Procedures Referred By Melinda lopez Referred To Contact US IMAGING Diagnoses Unilateral inguinal hernia without obstruction or gangrene, recurrence not specified Hydrocele, unspecified hydrocele type Procedures US SCROTUM AND CONTENTS US SCROTUM & CONTENTS Dayna Reyes MD [address] [place] [address] Us Imaging Referral ID Status Reason Start Date Expiration Date Visits Requested Visits Authorized [id number] Authorized Auto-Generat ed Referral 04/13/2022 05/13/2023 1 1 * Consult, Test, Treat (Routine) - Pending Review Specialty Diagnoses / Procedures Referred By Contac t Referred To Contact Dermatology Diagnoses Liver transplant candidate Procedures CONSULT TO DERMATOLOGY OFFICE/OUTPATIENT [facility] MDM 60-74 MINUTES Dayna Reyes MD [address] [place] [address] Referral ID Status Reason Start Date Expiration Date Visits Requested Visits Authorized [id number] Pending Review PCP Requested Referral 04/13/2022 04/13/2023 1 1 * MRI/CT (Routine) - Authorized Specialty Diagnoses / Procedures Referred By Contac t Referred To Contact CT IMAGING Diagnoses Cirrhosis of liver with ascites, unspecified hepatic cirrhosis type (HCC) Procedures CT LIVER W IVCON CT ABDOMEN W/CONTRAST Dayna Reyes MD [address] [place] [address] Ct Imaging Referral ID Status Reason Start Date Expiration Date Visits Requested Visits Authorized [id number] Authorized Auto-Generat ed Referral 04/13/2022 05/13/2023 1 1 [facility] for referral (narrative)* Diagnostic Procedure Only (Routine) - Closed Specialty Diagnoses / Procedures Referred By Contac t Referred To Contact US IMAGING Diagnoses Unilateral inguinal hernia without obstruction or gangrene, recurrence not specified Hydrocele, unspecified hydrocele type Procedures US SCROTUM AND CONTENTS US SCROTUM & CONTENTS Dayna Reyes MD [address] [place] [address] Us Imaging Referral ID Status Reason Start Date Expiration Date V isits Requested Visits Authorized [id number] Closed Auto-Generate d Referral 04/13/2022 05/13/2023 1 1 [facility] for referral (narrative)* Diagnostic Procedure Only (Routine) - Authorized Specialty Diagnoses / Procedures Referred By Contac t Referred To Contact [facility] IMAGING Diagnoses Scrotal swelling Liver transplant recipient (HCC) Procedures US SCROTUM AND CONTENTS US SCROTUM & CONTENTS Sharon Castro MD [address] [place] [address] Us Imaging Referral ID Status Reason Start Date Expiration Date Visits Requested Visits Authorized [id number] Authorized Auto-Generat ed Referral 06/24/2022 06/26/2023 1 1 [facility] for referral (narrative)* Diagnostic Procedure Only (Routine) - Closed Specialty Diagnoses / Procedures [facility] Referred To Contact [facility] Diagnoses Scrotal swelling Liver transplant recipient (HCC) Procedures US SCROTUM AND CONTENTS US SCROTUM & CONTENTS Sharon Castro MD [address] [place] [address] Us Imaging Referral ID Status Reason Start Date Expiration Date V isits Requested Visits Authorized [id number] Closed Auto-Generate d Referral 06/24/2022 06/26/2023 1 1 [facility] for referral (narrative)* Diagnostic Procedure Only (Urgent) - Authorized Specialty Diagnoses / Procedures Referred By Contac t Referred To Contact US IMAGING Diagnoses Liver replaced by transplant (HCC) Procedures US DOPPLER COMPLETE DUP-SCAN ARTL GREY ABDL/PEL/SCROT&/RPR ORGN COM Diane Vallecillo APRN.[employer] [address] [place] [address] Us Imaging Referral ID Status Reason Start Date Expiration Date Visits Requested Visits Authorized [id number] Authorized Auto-Generate d Referral Patient Cleared - INN Insurance Found 11/17/2022 12/14/2023 1 1 * Diagnostic Procedure Only (Urgent) - Authorized Specialty Diagnoses / Procedures Referred By Contac t Referred To Contact US IMAGING Diagnoses Liver replaced by transplant (HCC) Procedures US ABD LIVER VASCULAR US ABDOMINAL REAL TIME W/IMAGE LIMITED DUP-SCAN ARTL GREY ABDL/PEL/SCROT&/RPR ORGN COM Diane Vallecillo APRN.[employer] [address] [place] [place] [id number] Us Imaging Referral ID Status Reason Start Date Expiration Date Visits Requested Visits Authorized [id number] Authorized Auto-Generate d Referral Patient Cleared - INN Insurance Found 11/17/2022 12/14/2023 1 1 [facility] for referral (narrative)* Diagnostic Procedure Only (Urgent) - Closed Specialty Diagnoses / Procedures Referred By Contac t Referred To Contact US IMAGING Diagnoses Liver replaced by transplant (HCC) Procedures US DOPPLER COMPLETE DUP-SCAN ARTL GREY ABDL/PEL/SCROT&/RPR ORGN COM Diane Vallecillo APRN.INVESTIGATION [employer] [address] [place] [address] [place] [address] Referral ID Status Reason Start Date Expiration Date V isits Requested Visits Authorized [id number] Closed Auto-Generated Referral Patient Cleared - INN Insurance Found 11/17/2022 12/14/2023 1 1 * Diagnostic Procedure Only (Urgent) - Closed Specialty Diagnoses / Procedures Referred By Contac t Referred To Contact US IMAGING Diagnoses Liver replaced by transplant (HCC) Procedures US ABD LIVER VASCULAR US ABDOMINAL REAL TIME W/IMAGE LIMITED DUP-SCAN ARTL GREY ABDL/PEL/SCROT&/RPR ORGN COM Diane Vallecillo APRN.INVESTIGATION [employer] [address] [place] [address] [place] [address] Referral ID Status Reason Start Date Expiration Date V isits Requested Visits Authorized [id number] Closed Auto-Generated Referral Patient Cleared - INN Insurance Found 11/17/2022 12/14/2023 1 1 [facility] for referral (narrative)* Diagnostic Procedure Only (Routine) - Closed Specialty Diagnoses / Procedures Referred By Contac t Referred To Contact CT IMAGING Diagnoses Unilateral inguinal hernia without obstruction or gangrene, recurrence not specified Procedures CT ABD/PEL WO IVCON CT ABD & PELVIS W/O CONTRAST Juan Jose Alonzo MD [address] [place] [address] Ct Imaging [place] [facility] Referral ID Status Reason Start Date Expiration Date Visits Re quested Visits Authorized [id number] Closed 04/30/2021 04/02/2022 1 1 [facility] for referral (narrative)* Diagnostic Procedure Only (Routine) - Closed Specialty Diagnoses / Procedures Referred By Contac t Referred To Contact US IMAGING Diagnoses 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) Procedures US ASCITES SURVEY US ABDOMINAL REAL TIME W/IMAGE LIMITED Dayna Reyes MD [address] [place] [id number] [facility] [place] [facility] Referral ID Status Reason Start Date Expiration Date V isits Requested Visits Authorized [id number] Closed Auto-Generate d Referral 02/22/2022 04/02/2022 1 1 [facility] for referral (narrative)* Diagnostic Procedure Only (Routine) - Closed Specialty Diagnoses / Procedures Referred By Contac t Referred To Contact US IMAGING Diagnoses Other ascites Procedures US ASCITES SURVEY US ABDOMINAL REAL TIME W/IMAGE LIMITED Dayna Reyes MD [address] [place] [address] [place] [address] Referral ID Status Reason Start Date Expiration Date V isits Requested Visits Authorized [id number] Closed Auto-Generated Referral Patient Cleared - INN Insurance Found 12/20/2021 01/19/2023 1 1 [facility] for referral (narrative)* Diagnostic Procedure Only (Urgent) - Authorized Specialty Diagnoses / Procedures Referred By Contac t Referred To Contact US IMAGING Diagnoses Elevated LFTs Procedures US DOPPLER COMPLETE DUP-SCAN ARTL GREY ABDL/PEL/SCROT&/RPR ORGN COM Rebecca Mascorro APRN.INVESTIGATION [employer] [address] [place] [address] Us [facility] [place] [address] Referral ID Status Reason Start Date Expiration Date Visits Requested Visits Authorized [id number] Authorized Auto-Generat ed Referral 02/07/2024 03/07/2025 1 1 * Diagnostic Procedure Only (Urgent) - Authorized Specialty Diagnoses / Procedures Referred By Contac t Referred To Contact US IMAGING Diagnoses Elevated LFTs Procedures US ABD LIVER VASCULAR US ABDOMINAL REAL TIME W/IMAGE LIMITED DUP-SCAN ARTL GREY ABDL/PEL/SCROT&/RPR ORGN COM Rebecca Mascorro APRN.INVESTIGATION [employer] [address] [place] [address] Us Imaging [place] [address] Referral ID Status Reason Start Date Expiration Date Visits Requested Visits Authorized [id number] Authorized Auto-Generat ed Referral 02/07/2024 03/07/2025 1 1 [facility] for referral (narrative)* Diagnostic Procedure Only (Urgent) - Closed Specialty Diagnoses / Procedures Referred By Contac t Referred To Contact US IMAGING Diagnoses Elevated LFTs Procedures US DOPPLER COMPLETE DUP-SCAN ARTL GREY ABDL/PEL/SCROT&/RPR ORGN COM Rebecca Mascorro APRN.INVESTIGATION [employer] [address] [place] [id number] Us Imaging [facility] Referral ID Status Reason Start Date Expiration Date V isits Requested Visits Authorized [id number] Closed Auto-Generate d Referral 02/07/2024 03/07/2025 1 1 * Diagnostic Procedure Only (Urgent) - Closed Specialty Diagnoses / Procedures Referred By Contac t Referred To Contact US IMAGING Diagnoses Elevated LFTs Procedures US ABD LIVER VASCULAR US ABDOMINAL REAL TIME W/IMAGE LIMITED DUP-SCAN ARTL GREY ABDL/PEL/SCROT&/RPR ORGN COM Rebecca Mascorro APRN.INVESTIGATION [employer] [address] [place], [place] [id number] Us Imaging [place] [address] Referral ID Status Reason Start Date Expiration Date V isits Requested Visits Authorized [id number] Closed Auto-Generate d Referral 02/07/2024 03/07/2025 1 1 [facility] for visit Narrative* Diagnostic Procedure Only (Routine) - Closed Specialty Diagnoses / Procedures Referred By Contac t Referred To Contact US IMAGING Diagnoses Cirrhosis of liver with ascites, unspecified hepatic cirrhosis type (HCC) Procedures US DOPPLER COMPLETE DUP-SCAN ARTL GREY ABDL/PEL/SCROT&/RPR ORGN COM Dayna Reyes MD [address] [email or web address] [address] Us Imaging Referral ID Status Reason Start Date Expiration Date Visits Re quested Visits Authorized [id number] Closed 07/13/2021 04/02/2022 1 1 [facility] for visit Narrative* Diagnostic Procedure Only (Routine) - Closed Specialty Diagnoses / Procedures Referred By Contac t Referred To Contact US IMAGING Diagnoses Cirrhosis of liver with ascites, unspecified hepatic cirrhosis type (HCC) Procedures US ABD LIVER VASCULAR US ABDOMINAL REAL TIME W/IMAGE LIMITED DUP-SCAN ARTL GREY ABDL/PEL/SCROT&/RPR ORGN COM Dayna eRyes MD [address] [email or web address] [address] Us Imaging Referral ID Status Reason Start Date Expiration Date V isits Requested Visits Authorized [id number] Closed Auto-Generate d Referral 11/30/2021 04/02/2022 1 1 [facility] for visit Narrative* Diagnostic Procedure Only (Routine) - Closed Specialty Diagnoses / Procedures [facility] Referred To Contact US IMAGING Diagnoses Cirrhosis of liver with ascites, unspecified hepatic cirrhosis type (HCC) Procedures US ASCITES SURVEY US ABDOMINAL REAL TIME W/IMAGE LIMITED Dayna Reyes MD [address] [place] [address] Us Imaging Referral ID Status Reason Start Date Expiration Date V isits Requested Visits Authorized [id number] Closed Auto-Generate d Referral 01/20/2022 04/02/2022 1 1 [facility] for visit Narrative* Diagnostic Procedure Only (Routine) - Closed Specialty Diagnoses / Procedures [facility] Referred To Contact [facility] Diagnoses Other ascites Procedures ABDOM PARACENTESIS DX/THER W IMAGING GUIDANCE ABDOM PARACENTESIS DX/THER W IMAGING GUIDANCE Dayna Reyes MD [address] [place] [address] [facility] [address] [address] Referral ID Status Reason Start Date Expiration Date Visits Re quested Visits Authorized [id number] Closed 07/13/2021 04/02/2022 52 1 [facility] for visit Narrative* Diagnostic Procedure Only (Routine) - Closed Specialty Diagnoses / Procedures [facility] Referred To Contact US IMAGING Diagnoses Unilateral inguinal hernia without obstruction or gangrene, recurrence not specified Hydrocele, unspecified hydrocele type Procedures US SCROTUM AND CONTENTS US SCROTUM & CONTENTS Dayna Reyes MD [address] [place] [address] Us Imaging Referral ID Status Reason Start Date Expiration Date V isits Requested Visits Authorized [id number] Closed Auto-Generate d Referral 04/13/2022 05/13/2023 1 1 [facility] for visit Narrative* Diagnostic Procedure Only (Routine) - Closed Specialty Diagnoses / Procedures Referred By Contac t Referred To Contact US IMAGING Diagnoses Scrotal swelling Liver transplant recipient (HCC) Procedures US SCROTUM AND CONTENTS US SCROTUM & CONTENTS Sharon Castro MD [address] [place] [address] Us Imaging Referral ID Status Reason Start Date Expiration Date V isits Requested Visits Authorized [id number] Closed Auto-Generate d Referral 06/24/2022 06/26/2023 1 1 [facility] for visit Narrative* Diagnostic Procedure Only (Urgent) - Closed Specialty Diagnoses / Procedures [facility] Referred To Contact US IMAGING Diagnoses Liver replaced by transplant (HCC) Procedures US DOPPLER COMPLETE DUP-SCAN ARTL GREY ABDL/PEL/SCROT&/RPR ORGN COM Diane Vallecillo APRN.INVESTIGATION [employer] [address] [place] [address] Us Imaging [place] [address] Referral ID Status Reason Start Date Expiration Date V isits Requested Visits Authorized [id number] Closed Auto-Generated Referral Patient Cleared - INN Insurance Found 11/17/2022 12/14/2023 1 1 [facility] for visit Narrative* Diagnostic Procedure Only (Routine) - Closed Specialty Diagnoses / Procedures [facility] Referred To Contact CT IMAGING Diagnoses Unilateral inguinal hernia without obstruction or gangrene, recurrence not specified Procedures CT ABD/PEL WO IVCON CT ABD & PELVIS W/O CONTRAST Juan Jose Alonzo MD [address] [place] [phone] Imaging [place] [address] Referral ID Status Reason Start Date Expiration Date Visits Re quested Visits Authorized [id number] Closed 04/30/2021 04/02/2022 1 1 [facility] for visit Narrative* Diagnostic Procedure Only (Routine) - Closed Specialty Diagnoses / Procedures [facility] Referred To Contact US IMAGING Diagnoses 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) Procedures US ASCITES SURVEY US ABDOMINAL REAL TIME W/IMAGE LIMITED Dayna Reyes MD [address] [place] [id number] Us Imaging [facility] Referral ID Status Reason Start Date Expiration Date V isits Requested Visits Authorized [id number] Closed Auto-Generate d Referral 02/22/2022 04/02/2022 1 1 [facility] for visit Narrative* Diagnostic Procedure Only (Routine) - Closed Specialty Diagnoses / Procedures Referred By Contac t Referred To Contact US IMAGING Diagnoses Other ascites Procedures US ASCITES SURVEY US ABDOMINAL REAL TIME W/IMAGE LIMITED Dayna Reyes MD [address] [place] [address] Us Imaging [place] [address] Referral ID Status Reason Start Date Expiration Date V isits Requested Visits Authorized [id number] Closed Auto-Generated Referral Patient Cleared - INN Insurance Found 12/20/2021 01/19/2023 1 1 [facility] for visit Narrative* Diagnostic Procedure Only (Urgent) - Closed Specialty Diagnoses / Procedures Referred By Contac t Referred To Contact US IMAGING Diagnoses Elevated LFTs Procedures US DOPPLER COMPLETE DUP-SCAN ARTL GREY ABDL/PEL/SCROT&/RPR ORGN COM Rebecca Mascorro, PROJECT SURVEYOR.INVESTIGATION [employer] [address] [place] [phone] Us Imaging [facility] Referral ID Status Reason Start Date Expiration Date V isits Requested Visits Authorized [id number] Closed Auto-Generate d Referral 02/07/2024 03/07/2025 1 1 [facility] Summary Purpose Family History No Family History Records Found Relationship Condition Age at Onset Recorded Date/T tobi father Heart disease Unknown Diabetes mellitus Unknown brother Heart disease Unknown brother Diabetes mellitus Unknown Advance Directives No Advanced Directives Records FoundDocuments on File Type Date Recorded Patient Clinical Medical Assistant Expl anation Advance Directive(s) 08/18/2020 11:29 AM Advance Directive(s) 04/22/2020 11:24 AM Advance Directive(s) 10/25/2019 11:44 AM Advance Directive(s) 10/23/2019 5:41 PM Advance Directive(s) 10/11/2019 1:01 PM [place] Advance Directive(s) 11/06/2018 2:18 PM Advance Directive(s) 10/15/2018 2:52 PM Advance Directive(s) 10/10/2018 10:55 AM Advance Directive(s) 09/24/2018 9:20 AM Advance Directive(s) 08/31/2018 9:54 AM Advance Directive(s) 08/31/2018 1:17 PM Documents on File Type Date Recorded Patient Clinical Medical Assistant Expl anation Advance Directive(s) 08/18/2020 11:29 AM Advance Directive(s) 04/22/2020 11:24 AM Advance Directive(s) 10/25/2019 11:44 AM Advance Directive(s) 10/23/2019 5:41 PM Advance Directive(s) 10/11/2019 1:01 PM [place] in [place] Advance Directive(s) 11/06/2018 2:18 PM Advance Directive(s) 10/15/2018 2:52 PM Advance Directive(s) 10/10/2018 10:55 AM Advance Directive(s) 09/24/2018 9:20 AM Advance Directive(s) 08/31/2018 9:54 AM Advance Directive(s) 08/31/2018 1:17 PM Documents on File Type Date Recorded Patient Clinical Medical Assistant Expl anation Advance Directive(s) 08/31/2018 1:17 PM Documents on File Type Date Recorded Patient Clinical Medical Assistant Expl anation Advance Directive(s) 08/31/2018 1:17 PM Advance Directive Response Recorded Date/ Time Advance Directives No January 13, 2017 2:50pm Hospital Course Note NAME: SANDRA AGUILAR#: [id number] DATE: 12/25/2017DISCHARGE DATE: 12/27/2017DISCHARGE SUMMARYHISTORY OF PRESENT ILLNESS: The patient is a 57-year-old male, withpast medical history of hypertension, histoplasmosis, and abdominal herniawith a significant smoking history who was admitted with recurrent lumbar diskherniation. For further details of his admitting history, past medical andsurgical history, please refer to admitting surgical assessment.HOSPITAL COURSE: The patient was admitted with a diagnosis of recurrentherniation right L5-S1. Surgical procedure, risks, benefits, complications,and alternatives were discussed with the patient and consent was obtained toperform surgery. Revision right L5- S1 laminotomy, foraminotomy, decompressionwith lysis of adhesions and revision diskectomy were performed on 12/25/2017under general endotracheal anesthesia. He tolerated the procedure well andrecovered satisfactorily. Postoperatively, he was complaining of minimal painaround (more content not included)... 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 Elevated tumor markers Procedures MRI 3D POST PROCESSING 3D RENDERING W/INTERP&POSTPROC DIFF WORK STATION Dayna Reyes MD [address] [facility] [address] [place] [address] Mr Imaging Referral ID Status Reason Start Date Expiration Date V isits Requested Visits Authorized [id number] Closed Auto-Generate d Referral 06/17/2021 04/02/2022 1 1 Specialty Diagnoses / Procedures Referred By Melinda lopez Referred To Contact MR IMAGING Diagnoses 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 Elevated tumor markers Abnormal results of liver function studies Procedures MRI PANC/SUSHANT WO/W IVCON MRI ABDOMEN W/O & W/CONTRAST MATERIAL Dayna Reyes MD [address] [place] [address] Mr Imaging Referral ID Status Reason Start Date Expiration Date V isits Requested Visits Authorized [id number] Closed Auto-Generate d Referral 06/29/2021 08/29/2021 1 1 Specialty Diagnoses / Procedures Referred By Melinda lopez Referred To Contact Diagnoses Osteopenia, unspecified location Procedures CONSULT ENDOCRINE [facility] OFFICE/OUTPATIENT [facility] 60-74 MINUTES Dayna Reyes MD [address] [place] [address] Referral ID Status Reason Start Date Expiration Date Visits Requested Visits Authorized [id number] Pending Review PCP Requested Referral 07/17/2021 07/17/2022 1 1 Specialty Diagnoses / Procedures Referred By Melinda lopez Referred To Contact US IMAGING Diagnoses 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) Procedures US DOPPLER COMPLETE DUP-SCAN ARTL GREY ABDL/PEL/SCROT&/RPR ORGN COM Dayna Reyes MD [address] [place] [address] Us Imaging Referral ID Status Reason Start Date Expiration Date Visits Re quested Visits Authorized [id number] Closed 07/13/2021 04/02/2022 1 1 Specialty Diagnoses / Procedures Referred By Contac t Referred To Contact US IMAGING Diagnoses 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) Procedures US ABD LIVER VASCULAR US ABDOMINAL REAL TIME W/IMAGE LIMITED DUP-SCAN ARTL GREY ABDL/PEL/SCROT&/RPR ORGN COM Dayna Reyes MD [address] [place] [address] Us Imaging Referral ID Status Reason Start Date Expiration Date Visits Re quested Visits Authorized [id number] Closed 07/13/2021 04/02/2022 1 1 Specialty Diagnoses / Procedures Referred By Contac t Referred To Contact CT IMAGING Diagnoses Lung nodules Procedures CT CHEST WO IVCON DIAGNOSTIC COMPUTED TOMOGRAPHY THORAX W/O CNTRST Dayna Reyes MD [address] [place] [address] Ct Imaging Referral ID Status Reason Start Date Expiration Date Visits Requested Visits Authorized [id number] Authorized Auto-Generat ed Referral 07/13/2021 04/02/2022 1 1 Specialty Diagnoses / Procedures Referred By Contac t Referred To Contact Dermatology Diagnoses 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) Procedures CONSULT TO DERMATOLOGY OFFICE/OUTPATIENT [facility] 60-74 MINUTES Dayna Reyes MD [address] [place] [address] Referral ID Status Reason Start Date Expiration Date Visits Requested Visits Authorized [id number] Pending Review PCP Requested Referral 10/19/2021 10/18/2022 1 1 Specialty Diagnoses / Procedures Referred By Contac t Referred To Contact Diagnoses Preoperative examination Unilateral inguinal hernia without obstruction or gangrene, recurrence not specified Procedures IN PERSON CONSULT TO [facility] Kulwinder Landry MD [address] [place] [address] Referral ID Status Reason Start Date Expiration Date Visits Requested Visits Authorized [id number] Ref Not Required PCP Requested Referral 10/19/2021 01/16/2022 1 1 Specialty Diagnoses / Procedures Referred By Contac t Referred To Contact [facility] [place] Diagnoses Preoperative examination Unilateral inguinal hernia without obstruction or gangrene, recurrence not specified Procedures ECG COMPLETE ECG ROUTINE ECG W/LEAST 12 LDS W/I&R Kulwinder Landry MD [address] [place] [address] [address] Referral ID Status Reason Start Date Expiration Date Visits Requested Visits Authorized [id number] Pending Review Auto-Generat ed Referral 10/19/2021 10/18/2022 1 1 Specialty Diagnoses / Procedures Referred By Contac t Referred To Contact Diagnoses Preoperative examination Unilateral inguinal hernia without obstruction or gangrene, recurrence not specified Procedures CONSULT TO [facility] OFFICE/OUTPATIENT [facility] 60-74 MINUTES Kulwinder Landry MD [address] [place] [address] Referral ID Status Reason Start Date Expiration Date Visits Requested Visits Authorized [id number] Pending Review PCP Requested Referral 10/19/2021 10/18/2022 1 1 Specialty Diagnoses / Procedures Referred By Contac t Referred To Contact TRANSPLANT Diagnoses 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) Procedures REFERRAL FOR TRANSPLANT WAITLIST AUTHORIZATION Dayna Reyes MD [address] [place] [address] [facility] [address] [place] [address] Referral ID Status Reason Start Date Expiration Date Visits Requested Visits Authorized [id number] Pending Review PCP Requested Referral 12/23/2021 12/23/2022 99 99 Referral ID Status Reason Start Date Expiration Date V isits Requested Visits Authorized [id number] Closed Auto-Generate d Referral 07/13/2021 04/02/2022 1 1 Specialty Diagnoses / Procedures Referred By Contac t Referred To Contact Diagnoses Preoperative examination Unilateral inguinal hernia without obstruction or gangrene, recurrence not specified Procedures IN PERSON CONSULT TO [facility] Ryley Sanabria MD [address] [place] [address] Referral ID Status Reason Start Date Expiration Date Visits Requested Visits Authorized [id number] Ref Not Required PCP Requested Referral 2 04/10/2022 1 1 Specialty Diagnoses / Procedures Referred By Contac t Referred [facility] Diagnoses Preoperative examination Unilateral inguinal hernia without obstruction or gangrene, recurrence not specified Procedures ECG COMPLETE ECG ROUTINE ECG W/LEAST 12 LDS W/I&R Ryley Sanabria MD [address] [place] [address] [place] [address] Referral ID Status Reason Start Date Expiration Date Visits Requested Visits Authorized [id number] Pending Review Auto-Generat ed Referral 2 01/10/2023 1 1 Specialty Diagnoses / Procedures Referred By Contac t Referred To Contact Diagnoses Preoperative examination Unilateral inguinal hernia without obstruction or gangrene, recurrence not specified Procedures CONSULT TO [facility]IC[facility] OFFICE/OUTPATIENT [facility] 60-74 MINUTES Ryley Sanabria MD [facility] [place] [address] Referral ID Status Reason Start Date Expiration Date Visits Requested Visits Authorized [id number] Pending Review PCP Requested Referral 2 01/10/2023 1 1 Specialty Diagnoses / Procedures Referred By Contac t Referred To Contact CT IMAGING Diagnoses Unilateral inguinal hernia without obstruction or gangrene, recurrence not specified Procedures CT ABD/PEL WO IVCON CT ABD & PELVIS W/O CONTRAST Kulwinder Landry MD [address] [place] [address] Ct Imaging Referral ID Status Reason Start Date Expiration Date Visits Requested Visits Authorized [id number] Pending Review Auto-Generat ed Referral 2 04/16/2023 1 1 Specialty Diagnoses / Procedures Referred By Contac t Referred To Contact CT IMAGING Diagnoses Cirrhosis of liver with ascites, unspecified hepatic cirrhosis type (HCC) Procedures CT LIVER W IVCON CT ABDOMEN W/CONTRAST Dayna Reyes MD [address] [place] [address] Ct Imaging Referral ID Status Reason Start Date Expiration Date V isits Requested Visits Authorized [id number] Closed Auto-Generate d Referral 04/13/2022 05/13/2023 1 1 Specialty Diagnoses / Procedures Referred By Contac t Referred To Contact CT IMAGING Diagnoses Unilateral inguinal hernia without obstruction or gangrene, recurrence not specified Procedures CT ABD/PEL WO IVCON CT ABD & PELVIS W/O CONTRAST Nanci Kamara APRN.INVESTIGATION [employer] [address] [address] [address] Imaging Referral ID Status Reason Start Date Expiration Date Visits Requested Visits Authorized [id number] Pending Review Auto-Generat ed Referral 07/13/2022 08/12/2023 1 1 Reason evaluate and treat Diagnosis 1 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) Referral Organization [facility] urosurgery Referring Provider First Name Tiffany Referring Provider Last Name Fortunato Referring Provider Specialty Neurologica l Surgery Referred Organization [facility] Referred Provider DOMINIC GARCIA Referred Address [address] [place] [place], [place] Referred Provider Specialty Neurological Surgery Referral Priority Routine General Notes Fore, Danielle M 023 11:41:10 AM >Received today and waiting for office notes to be locked before sending referral Referral ID Status Reason Start Date Expiration Date V Buyouts Requested Visits Authorized [id number] Closed Auto-Generate d Referral 08/01/2022 04/02/2023 2 1 Referral ID Status Reason Start Date Expiration Date V isits Requested Visits Authorized [id number] Closed Auto-Generate d Referral 03/22/2022 04/02/2022 2 2 Specialty Diagnoses / Procedures Referred By Contac t Referred To Contact [facility] Diagnoses Acute left-sided low back pain with left-sided sciatica S/P lumbar laminectomy Procedures CONSULT TO PHYSICAL THERAPY PHYSICAL THERAPY EVALUATION HIGH COMPLEX 45 MINS Jane Hernandez PA-C [address] [place] [address] [facility] [place] [address] [place] [address] Referral ID Status Reason Start Date Expiration Date Visits Requested Visits Authorized [id number] Pending Review Auto-Generat ed Referral 12/09/2022 12/09/2023 1 1 Medications Administered Section Inactive Administered Medications - up to 3 most recent administrations Medication Order MAR Action Action Date Dose Rate Site lidocaine (PF) 20 mg/mL (2 %) injection (XYLOCAINE) INTRADERMAL, X (OR/PROCEDURE) PRN, Starting on Mon03/22/22 at 0905, Until Mon03/22/22 at 0905, Intraprocedure Given 03/22/2022 9:05 AM EST 10 mL Abdomen, LLQ Chief Complaint and Reason for Visit Chief Complaint ascites Reason for Visit [facility] Chief Complaint L side back pain Additional Source Comments (unrecognized sect ion and content) No Status Records FoundNo Status Records FoundNo Status Records FoundNo Status Records FoundNo Status Records FoundNo Status Records FoundNo Status Records FoundNo Status Records Found INFORMATION SOURCE (unrecogn ized section and content) DATE CREATED AUTHOR 02/24/2018 [facility] DATE CREATED AUTHOR AUTHOR'S ORGANIZ ATION 03/18/2018 [facility] DATE CREATED AUTHOR AUTHOR'S ORGANIZ ATION 07/06/2021 [facility] DATE CREATED AUTHOR AUTHOR'S ORGANIZ ATION 02/24/2022 [facility] DATE CREATED AUTHOR AUTHOR'S ORGANIZ ATION 06/12/2022 [facility] DATE CREATED AUTHOR AUTHOR'S ORGANIZ ATION 02/13/2023 [facility] DATE CREATED AUTHOR AUTHOR'S ORGANIZ ATION 10/23/2024 [facility] DATE CREATED AUTHOR AUTHOR'S ORGANIZ ATION 11/20/2024 [facility] Source Comments (unrecognize d section and content) In the event this informatio n is protected by the Federal Confidentiality of Alcohol and Drug Abuse Patient Records regulations: The Federal rules restrict any use of the information to criminally investigate or prosecute any alcohol or drug abuse patient.[facility]In the event this information is protected by the Federal Confidentiality of Alcohol and Drug Abuse Patient Records regulations: The Federal rules restrict any use of the information to criminally investigate or prosecute any alcohol or drug abuse patient.[facility] HospitalIn the event this information is protected by the Federal Confidentiality of Alcohol and Drug Abuse Patient Records regulations: The Federal rules restrict any use of the information to criminally investigate or prosecute any alcohol or drug abuse patient.[facility] HospitalIn the event this information is protected by the Federal Confidentiality of Alcohol and Drug Abuse Patient Records regulations: The Federal rules restrict any use of the information to criminally investigate or prosecute any alcohol or drug abuse patient.[facility] HospitalIn the event this information is protected by the Federal Confidentiality of Alcohol and Drug Abuse Patient Records regulations: The Federal rules restrict any use of the information to criminally investigate or prosecute any alcohol or drug abuse patient.[facility] HospitalIn the event this information is protected by the Federal Confidentiality of Alcohol and Drug Abuse Patient Records regulations: The Federal rules restrict any use of the information to criminally investigate or prosecute any alcohol or drug abuse patient.[facility] HospitalIn the event this information is protected by the Federal Confidentiality of Alcohol and Drug Abuse Patient Records regulations: The Federal rules restrict any use of the information to criminally investigate or prosecute any alcohol or drug abuse patient.[facility] HospitalIn the event this information is protected by the Federal Confidentiality of Alcohol and Drug Abuse Patient Records regulations: The Federal rules restrict any use of the information to criminally investigate or prosecute any alcohol or drug abuse patient.[facility] HospitalIn the event this information is protected by the Federal Confidentiality of Alcohol and Drug Abuse Patient Records regulations: The Federal rules restrict any use of the information to criminally investigate or prosecute any alcohol or drug abuse patient.[facility] HospitalIn the event this information is protected by the Federal Confidentiality of Alcohol and Drug Abuse Patient Records regulations: The Federal rules restrict any use of the information to criminally investigate or prosecute any alcohol or drug abuse patient.[facility] HospitalIn the event this information is protected by the Federal Confidentiality of Alcohol and Drug Abuse Patient Records regulations: The Federal rules restrict any use of the information to criminally investigate or prosecute any alcohol or drug abuse patient.[facility] HospitalIn the event this information is protected by the Federal Confidentiality of Alcohol and Drug Abuse Patient Records regulations: The Federal rules restrict any use of the information to criminally investigate or prosecute any alcohol or drug abuse patient.[facility] HospitalIn the event this information is protected by the Federal Confidentiality of Alcohol and Drug Abuse Patient Records regulations: The Federal rules restrict any use of the information to criminally investigate or prosecute any alcohol or drug abuse patient.[facility] HospitalIn the event this information is protected by the Federal Confidentiality of Alcohol and Drug Abuse Patient Records regulations: The Federal rules restrict any use of the information to criminally investigate or prosecute any alcohol or drug abuse patient.[facility] HospitalIn the event this information is protected by the Federal Confidentiality of Alcohol and Drug Abuse Patient Records regulations: The Federal rules restrict any use of the information to criminally investigate or prosecute any alcohol or drug abuse patient.[facility] HospitalIn the event this information is protected by the Federal Confidentiality of Alcohol and Drug Abuse Patient Records regulations: The Federal rules restrict any use of the information to criminally investigate or prosecute any alcohol or drug abuse patient.[facility] HospitalIn the event this information is protected by the Federal Confidentiality of Alcohol and Drug Abuse Patient Records regulations: The Federal rules restrict any use of the information to criminally investigate or prosecute any alcohol or drug abuse patient.[facility] HospitalIn the event this information is protected by the Federal Confidentiality of Alcohol and Drug Abuse Patient Records regulations: The Federal rules restrict any use of the information to criminally investigate or prosecute any alcohol or drug abuse patient.[facility] HospitalIn the event this information is protected by the Federal Confidentiality of Alcohol and Drug Abuse Patient Records regulations: The Federal rules restrict any use of the information to criminally investigate or prosecute any alcohol or drug abuse patient.[facility] HospitalIn the event this information is protected by the Federal Confidentiality of Alcohol and Drug Abuse Patient Records regulations: The Federal rules restrict any use of the information to criminally investigate or prosecute any alcohol or drug abuse patient.[facility] HospitalIn the event this information is protected by the Federal Confidentiality of Alcohol and Drug Abuse Patient Records regulations: The Federal rules restrict any use of the information to criminally investigate or prosecute any alcohol or drug abuse patient.[facility] HospitalIn the event this information is protected by the Federal Confidentiality of Alcohol and Drug Abuse Patient Records regulations: The Federal rules restrict any use of the information to criminally investigate or prosecute any alcohol or drug abuse patient.[facility] HospitalIn the event this information is protected by the Federal Confidentiality of Alcohol and Drug Abuse Patient Records regulations: The Federal rules restrict any use of the information to criminally investigate or prosecute any alcohol or drug abuse patient.[facility] HospitalIn the event this information is protected by the Federal Confidentiality of Alcohol and Drug Abuse Patient Records regulations: The Federal rules restrict any use of the information to criminally investigate or prosecute any alcohol or drug abuse patient.[facility] HospitalIn the event this information is protected by the Federal Confidentiality of Alcohol and Drug Abuse Patient Records regulations: The Federal rules restrict any use of the information to criminally investigate or prosecute any alcohol or drug abuse patient.[facility] HospitalIn the event this information is protected by the Federal Confidentiality of Alcohol and Drug Abuse Patient Records regulations: The Federal rules restrict any use of the information to criminally investigate or prosecute any alcohol or drug abuse patient.[facility] HospitalIn the event this information is protected by the Federal Confidentiality of Alcohol and Drug Abuse Patient Records regulations: The Federal rules restrict any use of the information to criminally investigate or prosecute any alcohol or drug abuse patient.[facility] HospitalIn the event this information is protected by the Federal Confidentiality of Alcohol and Drug Abuse Patient Records regulations: The Federal rules restrict any use of the information to criminally investigate or prosecute any alcohol or drug abuse patient.[facility] HospitalIn the event this information is protected by the Federal Confidentiality of Alcohol and Drug Abuse Patient Records regulations: The Federal rules restrict any use of the information to criminally investigate or prosecute any alcohol or drug abuse patient.[facility] HospitalIn the event this information is protected by the Federal Confidentiality of Alcohol and Drug Abuse Patient Records regulations: The Federal rules restrict any use of the information to criminally investigate or prosecute any alcohol or drug abuse patient.[facility] HospitalIn the event this information is protected by the Federal Confidentiality of Alcohol and Drug Abuse Patient Records regulations: The Federal rules restrict any use of the information to criminally investigate or prosecute any alcohol or drug abuse patient.[facility] HospitalIn the event this information is protected by the Federal Confidentiality of Alcohol and Drug Abuse Patient Records regulations: The Federal rules restrict any use of the information to criminally investigate or prosecute any alcohol or drug abuse patient.[facility] HospitalIn the event this information is protected by the Federal Confidentiality of Alcohol and Drug Abuse Patient Records regulations: The Federal rules restrict any use of the information to criminally investigate or prosecute any alcohol or drug abuse patient.[facility] HospitalIn the event this information is protected by the Federal Confidentiality of Alcohol and Drug Abuse Patient Records regulations: The Federal rules restrict any use of the information to criminally investigate or prosecute any alcohol or drug abuse patient.[facility] HospitalIn the event this information is protected by the Federal Confidentiality of Alcohol and Drug Abuse Patient Records regulations: The Federal rules restrict any use of the information to criminally investigate or prosecute any alcohol or drug abuse patient.[facility] HospitalIn the event this information is protected by the Federal Confidentiality of Alcohol and Drug Abuse Patient Records regulations: The Federal rules restrict any use of the information to criminally investigate or prosecute any alcohol or drug abuse patient.[facility] HospitalIn the event this information is protected by the Federal Confidentiality of Alcohol and Drug Abuse Patient Records regulations: The Federal rules restrict any use of the information to criminally investigate or prosecute any alcohol or drug abuse patient.[facility] HospitalIn the event this information is protected by the Federal Confidentiality of Alcohol and Drug Abuse Patient Records regulations: The Federal rules restrict any use of the information to criminally investigate or prosecute any alcohol or drug abuse patient.[facility] HospitalIn the event this information is protected by the Federal Confidentiality of Alcohol and Drug Abuse Patient Records regulations: The Federal rules restrict any use of the information to criminally investigate or prosecute any alcohol or drug abuse patient.[facility] HospitalIn the event this information is protected by the Federal Confidentiality of Alcohol and Drug Abuse Patient Records regulations: The Federal rules restrict any use of the information to criminally investigate or prosecute any alcohol or drug abuse patient.[facility] HospitalIn the event this information is protected by the Federal Confidentiality of Alcohol and Drug Abuse Patient Records regulations: The Federal rules restrict any use of the information to criminally investigate or prosecute any alcohol or drug abuse patient.[facility] HospitalIn the event this information is protected by the Federal Confidentiality of Alcohol and Drug Abuse Patient Records regulations: The Federal rules restrict any use of the information to criminally investigate or prosecute any alcohol or drug abuse patient.[facility] HospitalIn the event this information is protected by the Federal Confidentiality of Alcohol and Drug Abuse Patient Records regulations: The Federal rules restrict any use of the information to criminally investigate or prosecute any alcohol or drug abuse patient.[facility] HospitalIn the event this information is protected by the Federal Confidentiality of Alcohol and Drug Abuse Patient Records regulations: The Federal rules restrict any use of the information to criminally investigate or prosecute any alcohol or drug abuse patient.[facility] HospitalIn the event this information is protected by the Federal Confidentiality of Alcohol and Drug Abuse Patient Records regulations: The Federal rules restrict any use of the information to criminally investigate or prosecute any alcohol or drug abuse patient.[facility] HospitalIn the event this information is protected by the Federal Confidentiality of Alcohol and Drug Abuse Patient Records regulations: The Federal rules restrict any use of the information to criminally investigate or prosecute any alcohol or drug abuse patient.[facility] HospitalIn the event this information is protected by the Federal Confidentiality of Alcohol and Drug Abuse Patient Records regulations: The Federal rules restrict any use of the information to criminally investigate or prosecute any alcohol or drug abuse patient.[facility] HospitalIn the event this information is protected by the Federal Confidentiality of Alcohol and Drug Abuse Patient Records regulations: The Federal rules restrict any use of the information to criminally investigate or prosecute any alcohol or drug abuse patient.[facility] HospitalIn the event this information is protected by the Federal Confidentiality of Alcohol and Drug Abuse Patient Records regulations: The Federal rules restrict any use of the information to criminally investigate or prosecute any alcohol or drug abuse patient.[facility] HospitalIn the event this information is protected by the Federal Confidentiality of Alcohol and Drug Abuse Patient Records regulations: The Federal rules restrict any use of the information to criminally investigate or prosecute any alcohol or drug abuse patient.[facility] HospitalIn the event this information is protected by the Federal Confidentiality of Alcohol and Drug Abuse Patient Records regulations: The Federal rules restrict any use of the information to criminally investigate or prosecute any alcohol or drug abuse patient.[facility] HospitalIn the event this information is protected by the Federal Confidentiality of Alcohol and Drug Abuse Patient Records regulations: The Federal rules restrict any use of the information to criminally investigate or prosecute any alcohol or drug abuse patient.[facility] HospitalIn the event this information is protected by the Federal Confidentiality of Alcohol and Drug Abuse Patient Records regulations: The Federal rules restrict any use of the information to criminally investigate or prosecute any alcohol or drug abuse patient.[facility] HospitalIn the event this information is protected by the Federal Confidentiality of Alcohol and Drug Abuse Patient Records regulations: The Federal rules restrict any use of the information to criminally investigate or prosecute any alcohol or drug abuse patient.[facility] HospitalIn the event this information is protected by the Federal Confidentiality of Alcohol and Drug Abuse Patient Records regulations: The Federal rules restrict any use of the information to criminally investigate or prosecute any alcohol or drug abuse patient.[facility] HospitalIn the event this information is protected by the Federal Confidentiality of Alcohol and Drug Abuse Patient Records regulations: The Federal rules restrict any use of the information to criminally investigate or prosecute any alcohol or drug abuse patient.[facility] HospitalIn the event this information is protected by the Federal Confidentiality of Alcohol and Drug Abuse Patient Records regulations: The Federal rules restrict any use of the information to criminally investigate or prosecute any alcohol or drug abuse patient.[facility] HospitalIn the event this information is protected by the Federal Confidentiality of Alcohol and Drug Abuse Patient Records regulations: The Federal rules restrict any use of the information to criminally investigate or prosecute any alcohol or drug abuse patient.[facility] HospitalIn the event this information is protected by the Federal Confidentiality of Alcohol and Drug Abuse Patient Records regulations: The Federal rules restrict any use of the information to criminally investigate or prosecute any alcohol or drug abuse patient.[facility] HospitalIn the event this information is protected by the Federal Confidentiality of Alcohol and Drug Abuse Patient Records regulations: The Federal rules restrict any use of the information to criminally investigate or prosecute any alcohol or drug abuse patient.[facility] HospitalIn the event this information is protected by the Federal Confidentiality of Alcohol and Drug Abuse Patient Records regulations: The Federal rules restrict any use of the information to criminally investigate or prosecute any alcohol or drug abuse patient.[facility] HospitalIn the event this information is protected by the Federal Confidentiality of Alcohol and Drug Abuse Patient Records regulations: The Federal rules restrict any use of the information to criminally investigate or prosecute any alcohol or drug abuse patient.[facility] HospitalIn the event this information is protected by the Federal Confidentiality of Alcohol and Drug Abuse Patient Records regulations: The Federal rules restrict any use of the information to criminally investigate or prosecute any alcohol or drug abuse patient.[facility] HospitalIn the event this information is protected by the Federal Confidentiality of Alcohol and Drug Abuse Patient Records regulations: The Federal rules restrict any use of the information to criminally investigate or prosecute any alcohol or drug abuse patient.[facility] HospitalIn the event this information is protected by the Federal Confidentiality of Alcohol and Drug Abuse Patient Records regulations: The Federal rules restrict any use of the information to criminally investigate or prosecute any alcohol or drug abuse patient.[facility] HospitalIn the event this information is protected by the Federal Confidentiality of Alcohol and Drug Abuse Patient Records regulations: The Federal rules restrict any use of the information to criminally investigate or prosecute any alcohol or drug abuse patient.[facility] HospitalIn the event this information is protected by the Federal Confidentiality of Alcohol and Drug Abuse Patient Records regulations: The Federal rules restrict any use of the information to criminally investigate or prosecute any alcohol or drug abuse patient.[facility] HospitalIn the event this information is protected by the Federal Confidentiality of Alcohol and Drug Abuse Patient Records regulations: The Federal rules restrict any use of the information to criminally investigate or prosecute any alcohol or drug abuse patient.[facility] HospitalIn the event this information is protected by the Federal Confidentiality of Alcohol and Drug Abuse Patient Records regulations: The Federal rules restrict any use of the information to criminally investigate or prosecute any alcohol or drug abuse patient.[facility] HospitalIn the event this information is protected by the Federal Confidentiality of Alcohol and Drug Abuse Patient Records regulations: The Federal rules restrict any use of the information to criminally investigate or prosecute any alcohol or drug abuse patient.[facility] HospitalIn the event this information is protected by the Federal Confidentiality of Alcohol and Drug Abuse Patient Records regulations: The Federal rules restrict any use of the information to criminally investigate or prosecute any alcohol or drug abuse patient.[facility] HospitalIn the event this information is protected by the Federal Confidentiality of Alcohol and Drug Abuse Patient Records regulations: The Federal rules restrict any use of the information to criminally investigate or prosecute any alcohol or drug abuse patient.[facility] HospitalIn the event this information is protected by the Federal Confidentiality of Alcohol and Drug Abuse Patient Records regulations: The Federal rules restrict any use of the information to criminally investigate or prosecute any alcohol or drug abuse patient.[facility] HospitalIn the event this information is protected by the Federal Confidentiality of Alcohol and Drug Abuse Patient Records regulations: The Federal rules restrict any use of the information to criminally investigate or prosecute any alcohol or drug abuse patient.[facility] HospitalIn the event this information is protected by the Federal Confidentiality of Alcohol and Drug Abuse Patient Records regulations: The Federal rules restrict any use of the information to criminally investigate or prosecute any alcohol or drug abuse patient.[facility] HospitalIn the event this information is protected by the Federal Confidentiality of Alcohol and Drug Abuse Patient Records regulations: The Federal rules restrict any use of the information to criminally investigate or prosecute any alcohol or drug abuse patient.[facility] HospitalIn the event this information is protected by the Federal Confidentiality of Alcohol and Drug Abuse Patient Records regulations: The Federal rules restrict any use of the information to criminally investigate or prosecute any alcohol or drug abuse patient.[facility] HospitalIn the event this information is protected by the Federal Confidentiality of Alcohol and Drug Abuse Patient Records regulations: The Federal rules restrict any use of the information to criminally investigate or prosecute any alcohol or drug abuse patient.[facility] HospitalIn the event this information is protected by the Federal Confidentiality of Alcohol and Drug Abuse Patient Records regulations: The Federal rules restrict any use of the information to criminally investigate or prosecute any alcohol or drug abuse patient.[facility] HospitalIn the event this information is protected by the Federal Confidentiality of Alcohol and Drug Abuse Patient Records regulations: The Federal rules restrict any use of the information to criminally investigate or prosecute any alcohol or drug abuse patient.[facility] HospitalIn the event this information is protected by the Federal Confidentiality of Alcohol and Drug Abuse Patient Records regulations: The Federal rules restrict any use of the information to criminally investigate or prosecute any alcohol or drug abuse patient.[facility] HospitalIn the event this information is protected by the Federal Confidentiality of Alcohol and Drug Abuse Patient Records regulations: The Federal rules restrict any use of the information to criminally investigate or prosecute any alcohol or drug abuse patient.[facility] HospitalIn the event this information is protected by the Federal Confidentiality of Alcohol and Drug Abuse Patient Records regulations: The Federal rules restrict any use of the information to criminally investigate or prosecute any alcohol or drug abuse patient.[facility] HospitalIn the event this information is protected by the Federal Confidentiality of Alcohol and Drug Abuse Patient Records regulations: The Federal rules restrict any use of the information to criminally investigate or prosecute any alcohol or drug abuse patient.[facility] HospitalIn the event this information is protected by the Federal Confidentiality of Alcohol and Drug Abuse Patient Records regulations: The Federal rules restrict any use of the information to criminally investigate or prosecute any alcohol or drug abuse patient.[facility] HospitalIn the event this information is protected by the Federal Confidentiality of Alcohol and Drug Abuse Patient Records regulations: The Federal rules restrict any use of the information to criminally investigate or prosecute any alcohol or drug abuse patient.[facility] HospitalIn the event this information is protected by the Federal Confidentiality of Alcohol and Drug Abuse Patient Records regulations: The Federal rules restrict any use of the information to criminally investigate or prosecute any alcohol or drug abuse patient.[facility] HospitalIn the event this information is protected by the Federal Confidentiality of Alcohol and Drug Abuse Patient Records regulations: The Federal rules restrict any use of the information to criminally investigate or prosecute any alcohol or drug abuse patient.[facility] HospitalIn the event this information is protected by the Federal Confidentiality of Alcohol and Drug Abuse Patient Records regulations: The Federal rules restrict any use of the information to criminally investigate or prosecute any alcohol or drug abuse patient.[facility] HospitalIn the event this information is protected by the Federal Confidentiality of Alcohol and Drug Abuse Patient Records regulations: The Federal rules restrict any use of the information to criminally investigate or prosecute any alcohol or drug abuse patient.[facility] HospitalIn the event this information is protected by the Federal Confidentiality of Alcohol and Drug Abuse Patient Records regulations: The Federal rules restrict any use of the information to criminally investigate or prosecute any alcohol or drug abuse patient.[facility] HospitalIn the event this information is protected by the Federal Confidentiality of Alcohol and Drug Abuse Patient Records regulations: The Federal rules restrict any use of the information to criminally investigate or prosecute any alcohol or drug abuse patient.[facility] HospitalIn the event this information is protected by the Federal Confidentiality of Alcohol and Drug Abuse Patient Records regulations: The Federal rules restrict any use of the information to criminally investigate or prosecute any alcohol or drug abuse patient.[facility] HospitalIn the event this information is protected by the Federal Confidentiality of Alcohol and Drug Abuse Patient Records regulations: The Federal rules restrict any use of the information to criminally investigate or prosecute any alcohol or drug abuse patient.[facility] HospitalIn the event this information is protected by the Federal Confidentiality of Alcohol and Drug Abuse Patient Records regulations: The Federal rules restrict any use of the information to criminally investigate or prosecute any alcohol or drug abuse patient.[facility] HospitalIn the event this information is protected by the Federal Confidentiality of Alcohol and Drug Abuse Patient Records regulations: The Federal rules restrict any use of the information to criminally investigate or prosecute any alcohol or drug abuse patient.[facility] HospitalIn the event this information is protected by the Federal Confidentiality of Alcohol and Drug Abuse Patient Records regulations: The Federal rules restrict any use of the information to criminally investigate or prosecute any alcohol or drug abuse patient.[facility] HospitalIn the event this information is protected by the Federal Confidentiality of Alcohol and Drug Abuse Patient Records regulations: The Federal rules restrict any use of the information to criminally investigate or prosecute any alcohol or drug abuse patient.[facility] HospitalIn the event this information is protected by the Federal Confidentiality of Alcohol and Drug Abuse Patient Records regulations: The Federal rules restrict any use of the information to criminally investigate or prosecute any alcohol or drug abuse patient.[facility] HospitalIn the event this information is protected by the Federal Confidentiality of Alcohol and Drug Abuse Patient Records regulations: The Federal rules restrict any use of the information to criminally investigate or prosecute any alcohol or drug abuse patient.[facility] HospitalIn the event this information is protected by the Federal Confidentiality of Alcohol and Drug Abuse Patient Records regulations: The Federal rules restrict any use of the information to criminally investigate or prosecute any alcohol or drug abuse patient.[facility] HospitalIn the event this information is protected by the Federal Confidentiality of Alcohol and Drug Abuse Patient Records regulations: The Federal rules restrict any use of the information to criminally investigate or prosecute any alcohol or drug abuse patient.[facility] HospitalIn the event this information is protected by the Federal Confidentiality of Alcohol and Drug Abuse Patient Records regulations: The Federal rules restrict any use of the information to criminally investigate or prosecute any alcohol or drug abuse patient.[facility] HospitalIn the event this information is protected by the Federal Confidentiality of Alcohol and Drug Abuse Patient Records regulations: The Federal rules restrict any use of the information to criminally investigate or prosecute any alcohol or drug abuse patient.[facility] HospitalIn the event this information is protected by the Federal Confidentiality of Alcohol and Drug Abuse Patient Records regulations: The Federal rules restrict any use of the information to criminally investigate or prosecute any alcohol or drug abuse patient.[facility] HospitalIn the event this information is protected by the Federal Confidentiality of Alcohol and Drug Abuse Patient Records regulations: The Federal rules restrict any use of the information to criminally investigate or prosecute any alcohol or drug abuse patient.[facility] HospitalIn the event this information is protected by the Federal Confidentiality of Alcohol and Drug Abuse Patient Records regulations: The Federal rules restrict any use of the information to criminally investigate or prosecute any alcohol or drug abuse patient.[facility] HospitalIn the event this information is protected by the Federal Confidentiality of Alcohol and Drug Abuse Patient Records regulations: The Federal rules restrict any use of the information to criminally investigate or prosecute any alcohol or drug abuse patient.[facility] HospitalIn the event this information is protected by the Federal Confidentiality of Alcohol and Drug Abuse Patient Records regulations: The Federal rules restrict any use of the information to criminally investigate or prosecute any alcohol or drug abuse patient.[facility] HospitalIn the event this information is protected by the Federal Confidentiality of Alcohol and Drug Abuse Patient Records regulations: The Federal rules restrict any use of the information to criminally investigate or prosecute any alcohol or drug abuse patient.[facility] HospitalIn the event this information is protected by the Federal Confidentiality of Alcohol and Drug Abuse Patient Records regulations: The Federal rules restrict any use of the information to criminally investigate or prosecute any alcohol or drug abuse patient.[facility] HospitalIn the event this information is protected by the Federal Confidentiality of Alcohol and Drug Abuse Patient Records regulations: The Federal rules restrict any use of the information to criminally investigate or prosecute any alcohol or drug abuse patient.[facility] HospitalIn the event this information is protected by the Federal Confidentiality of Alcohol and Drug Abuse Patient Records regulations: The Federal rules restrict any use of the information to criminally investigate or prosecute any alcohol or drug abuse patient.[facility] HospitalIn the event this information is protected by the Federal Confidentiality of Alcohol and Drug Abuse Patient Records regulations: The Federal rules restrict any use of the information to criminally investigate or prosecute any alcohol or drug abuse patient.[facility] HospitalIn the event this information is protected by the Federal Confidentiality of Alcohol and Drug Abuse Patient Records regulations: The Federal rules restrict any use of the information to criminally investigate or prosecute any alcohol or drug abuse patient.[facility] HospitalIn the event this information is protected by the Federal Confidentiality of Alcohol and Drug Abuse Patient Records regulations: The Federal rules restrict any use of the information to criminally investigate or prosecute any alcohol or drug abuse patient.[facility] HospitalIn the event this information is protected by the Federal Confidentiality of Alcohol and Drug Abuse Patient Records regulations: The Federal rules restrict any use of the information to criminally investigate or prosecute any alcohol or drug abuse patient.[facility] HospitalIn the event this information is protected by the Federal Confidentiality of Alcohol and Drug Abuse Patient Records regulations: The Federal rules restrict any use of the information to criminally investigate or prosecute any alcohol or drug abuse patient.[facility] HospitalIn the event this information is protected by the Federal Confidentiality of Alcohol and Drug Abuse Patient Records regulations: The Federal rules restrict any use of the information to criminally investigate or prosecute any alcohol or drug abuse patient.[facility] HospitalIn the event this information is protected by the Federal Confidentiality of Alcohol and Drug Abuse Patient Records regulations: The Federal rules restrict any use of the information to criminally investigate or prosecute any alcohol or drug abuse patient.[facility] HospitalIn the event this information is protected by the Federal Confidentiality of Alcohol and Drug Abuse Patient Records regulations: The Federal rules restrict any use of the information to criminally investigate or prosecute any alcohol or drug abuse patient.[facility] HospitalIn the event this information is protected by the Federal Confidentiality of Alcohol and Drug Abuse Patient Records regulations: The Federal rules restrict any use of the information to criminally investigate or prosecute any alcohol or drug abuse patient.[facility] HospitalIn the event this information is protected by the Federal Confidentiality of Alcohol and Drug Abuse Patient Records regulations: The Federal rules restrict any use of the information to criminally investigate or prosecute any alcohol or drug abuse patient.[facility] HospitalIn the event this information is protected by the Federal Confidentiality of Alcohol and Drug Abuse Patient Records regulations: The Federal rules restrict any use of the information to criminally investigate or prosecute any alcohol or drug abuse patient.[facility] HospitalIn the event this information is protected by the Federal Confidentiality of Alcohol and Drug Abuse Patient Records regulations: The Federal rules restrict any use of the information to criminally investigate or prosecute any alcohol or drug abuse patient.[facility] HospitalIn the event this information is protected by the Federal Confidentiality of Alcohol and Drug Abuse Patient Records regulations: The Federal rules restrict any use of the information to criminally investigate or prosecute any alcohol or drug abuse patient.[facility] HospitalIn the event this information is protected by the Federal Confidentiality of Alcohol and Drug Abuse Patient Records regulations: The Federal rules restrict any use of the information to criminally investigate or prosecute any alcohol or drug abuse patient.[facility] HospitalIn the event this information is protected by the Federal Confidentiality of Alcohol and Drug Abuse Patient Records regulations: The Federal rules restrict any use of the information to criminally investigate or prosecute any alcohol or drug abuse patient.[facility] HospitalIn the event this information is protected by the Federal Confidentiality of Alcohol and Drug Abuse Patient Records regulations: The Federal rules restrict any use of the information to criminally investigate or prosecute any alcohol or drug abuse patient.[facility] HospitalIn the event this information is protected by the Federal Confidentiality of Alcohol and Drug Abuse Patient Records regulations: The Federal rules restrict any use of the information to criminally investigate or prosecute any alcohol or drug abuse patient.[facility] HospitalIn the event this information is protected by the Federal Confidentiality of Alcohol and Drug Abuse Patient Records regulations: The Federal rules restrict any use of the information to criminally investigate or prosecute any alcohol or drug abuse patient.[facility] HospitalIn the event this information is protected by the Federal Confidentiality of Alcohol and Drug Abuse Patient Records regulations: The Federal rules restrict any use of the information to criminally investigate or prosecute any alcohol or drug abuse patient.[facility] HospitalIn the event this information is protected by the Federal Confidentiality of Alcohol and Drug Abuse Patient Records regulations: The Federal rules restrict any use of the information to criminally investigate or prosecute any alcohol or drug abuse patient.[facility] HospitalIn the event this information is protected by the Federal Confidentiality of Alcohol and Drug Abuse Patient Records regulations: The Federal rules restrict any use of the information to criminally investigate or prosecute any alcohol or drug abuse patient.[facility] HospitalIn the event this information is protected by the Federal Confidentiality of Alcohol and Drug Abuse Patient Records regulations: The Federal rules restrict any use of the information to criminally investigate or prosecute any alcohol or drug abuse patient.[facility] HospitalIn the event this information is protected by the Federal Confidentiality of Alcohol and Drug Abuse Patient Records regulations: The Federal rules restrict any use of the information to criminally investigate or prosecute any alcohol or drug abuse patient.[facility] HospitalIn the event this information is protected by the Federal Confidentiality of Alcohol and Drug Abuse Patient Records regulations: The Federal rules restrict any use of the information to criminally investigate or prosecute any alcohol or drug abuse patient.[facility] HospitalIn the event this information is protected by the Federal Confidentiality of Alcohol and Drug Abuse Patient Records regulations: The Federal rules restrict any use of the information to criminally investigate or prosecute any alcohol or drug abuse patient.[facility] HospitalIn the event this information is protected by the Federal Confidentiality of Alcohol and Drug Abuse Patient Records regulations: The Federal rules restrict any use of the information to criminally investigate or prosecute any alcohol or drug abuse patient.[facility] HospitalIn the event this information is protected by the Federal Confidentiality of Alcohol and Drug Abuse Patient Records regulations: The Federal rules restrict any use of the information to criminally investigate or prosecute any alcohol or drug abuse patient.[facility] HospitalIn the event this information is protected by the Federal Confidentiality of Alcohol and Drug Abuse Patient Records regulations: The Federal rules restrict any use of the information to criminally investigate or prosecute any alcohol or drug abuse patient.[facility] HospitalIn the event this information is protected by the Federal Confidentiality of Alcohol and Drug Abuse Patient Records regulations: The Federal rules restrict any use of the information to criminally investigate or prosecute any alcohol or drug abuse patient.[facility] HospitalIn the event this information is protected by the Federal Confidentiality of Alcohol and Drug Abuse Patient Records regulations: The Federal rules restrict any use of the information to criminally investigate or prosecute any alcohol or drug abuse patient.[facility] HospitalIn the event this information is protected by the Federal Confidentiality of Alcohol and Drug Abuse Patient Records regulations: The Federal rules restrict any use of the information to criminally investigate or prosecute any alcohol or drug abuse patient.[facility] HospitalIn the event this information is protected by the Federal Confidentiality of Alcohol and Drug Abuse Patient Records regulations: The Federal rules restrict any use of the information to criminally investigate or prosecute any alcohol or drug abuse patient.[facility] Reason for Visit (unrecogniz ed section and content) Reason Comments Orders Reason Comments Radiology MRI Specialty Diagnoses / Procedures Referred By Contac Referred To Contact MR IMAGING Diagnoses 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 Elevated tumor markers Abnormal results of liver function studies Procedures MRI PANC/SUSHANT WO/W IVCON MRI ABDOMEN W/O & W/CONTRAST MATERIAL Dayna Reyes MD [address] [place] [address] Mr Imaging Referral ID Status Reason Start Date Expiration Date V isits Requested Visits Authorized [id number] Closed Auto-Generate d Referral 06/29/2021 08/29/2021 1 1 Reason Comments Results Reason Comments Established Patient ascites, Liver cirrh osis 2nd to [place] Reason Comments Orders Reason Comments Results Reason Onset Date Comments Refill Request 08/10/2021 Reason Comments Patient Education DSE Instructions Reason Comments Procedure Dobutamine stress ec ho Specialty Diagnoses / Procedures Referred By Contac t Referred To Contact [facility] Diagnoses Liver transplant candidate [place] (nonalcoholic steatohepatitis) Procedures STRESS ECHO DOBUTAMINE ECHO HEART, FULL STRESS/REST Dayna Reyes MD [address] [place] [address] [facility] [place] [address] [place] [address] Referral ID Status Reason Start Date Expiration Date V isits Requested Visits Authorized [id number] Closed Auto-Generate d Referral 07/13/2021 04/02/2022 1 1 Reason Comments UNOS MELD score update pt notiification Reason Comments Established Patient ascites liver cirrho sis Reason Comments Patient Update Reason Comments Liver Disease Reason Comments Osteoporosis f/u Specialty Diagnoses / Procedures Referred By Contac t Referred To Contact Diagnoses Osteopenia, unspecified location Procedures CONSULT ENDOCRINE [facility] OFFICE/OUTPATIENT [facility] 60-74 MINUTES Dayna Reyes MD [address] [place] [address] Referral ID Status Reason Start Date Expiration Date Visits Requested Visits Authorized [id number] Pending Review PCP Requested Referral 07/17/2021 07/17/2022 1 1 Reason Comments Established Patient Reason Onset Date Comments Refill Request 10/08/2021 Reason Comments 8.17.22 cure Right inguinal herni a repair 2.5 hours los 1 Reason Comments Reclast Reason Comments Anesthesia Consult Specialty Diagnoses / Procedures Referred By Contac t Referred To Contact Diagnoses Preoperative examination Unilateral inguinal hernia without obstruction or gangrene, recurrence not specified Procedures IN PERSON CONSULT TO PACC Kulwinder Landry MD [address] [place] [id number] Referral ID Status Reason Start Date Expiration Date Visits Requested Visits Authorized [id number] Ref Not Required PCP Requested Referral 10/19/2021 01/16/2022 1 1 Reason Comments Medication Problem Reason Comments Opened In Error Specialty Diagnoses / Procedures Referred By Contac t Referred To Contact Endocrinology / ENDOCRINOLOGY Diagnoses Age-related osteoporosis without current pathological fracture Age-related osteoporosis without current pathological fracture Procedures INJECTION, ZOLEDRONIC ACID, 1 MG [id number] Reclast5 MG IV X ONE YEARLY Lorna Frazier MD [address] [place] [address] Lorna Frazier MD [address] [place] [id number] Referral ID Status Reason Start Date Expiration Date Visits Re quested Visits Authorized [id number] Closed 12/01/2021 12/01/2022 1 1 Reason Comments Consult Specialty Diagnoses / Procedures Referred By Contac t Referred To Contact Hematology Diagnoses Thrombocytopenia (HCC) Cirrhosis of liver with ascites, unspecified hepatic cirrhosis type (HCC) Liver transplant candidate Procedures CONSULT TO HEMATOLOGY OFFICE/OUTPATIENT NEW HIGH MDM 60-74 MINUTES Dayna Reyes MD [address] [place] [id number] Referral ID Status Reason Start Date Expiration Date Visits Requested Visits Authorized [id number] Pending Review PCP Requested Referral 11/16/2021 11/16/2022 [address] Specialty Diagnoses / Procedures Referred By Contac t Referred To Contact CT IMAGING Diagnoses Lung nodules Procedures CT CHEST WO IVCON DIAGNOSTIC COMPUTED TOMOGRAPHY THORAX W/O CNTRST Dayna Reyes MD [address] [place] [address] Ct Imaging Referral ID Status Reason Start Date Expiration Date V isits Requested Visits Authorized [id number] Closed Auto-Generate d Referral 07/13/2021 04/02/2022 1 1 Reason Comments 12.2.22 cure Right Inguinal herni a repair 2.5 hours los 1 Reason Comments Recheck Reason Comments Pre-Op Visit Specialty Diagnoses / Procedures Referred By Contac t Referred To Contact ANESTHESIOLOGY Diagnoses surgery pending 03/04 PACC;lab;ekg Procedures COMPLETE PACC Kulwinder Landry MD [address] [place] [address] 6, Pacc [address] [place] [id number] Referral ID Status Reason Start Date Expiration Date V isits Requested Visits Authorized [id number] Pending Review 02/10/2022 05/11/2022 1 1 Reason Comments Spirometry Specialty Diagnoses / Procedures Referred By Contac t Referred To Contact [facility] Diagnoses Chronic rhinitis Pneumonia of right lower lobe due to infectious organism Procedures SPIROMETRY WITH DILATOR IF OBSTRUCTED BRNCDILAT RSPSE SPMTRY PRE&POST-BRNCDILAT ADMN Lakshmi Cr, DO [address] [place] [address] [facility] [place] [address] [place] [address] Referral ID Status Reason Start Date Expiration Date V isits Requested Visits Authorized [id number] Closed Auto-Generate d Referral 02/11/2022 04/02/2022 1 1 Reason Comments Recheck Reason Comments Results Reason Onset Date Comments Refill Request 02/25/2022 Reason Comments [employer] Forms Reason Comments Post Op Reason Comments Post Op Reason Comments Establish Care Cirrhosis of the kristie er Reason Comments Appointment Confirmation Reason Comments Follow Up Specialty Diagnoses / Procedures Referred By Contac t Referred To Contact CT IMAGING Diagnoses Cirrhosis of liver with ascites, unspecified hepatic cirrhosis type (HCC) Procedures CT LIVER W IVCON CT ABDOMEN W/CONTRAST Dayna Reyes MD [address] [place] [address] Ct Imaging Referral ID Status Reason Start Date Expiration Date V isits Requested Visits Authorized [id number] Closed Auto-Generate d Referral 04/13/2022 05/13/2023 1 1 Reason Comments Organ Offer Reason Comments Transplant Serologies Reason Comments Hospital F/U Reason Comments Liver Transplant Follow Up Reason Comments Medication Follow-up Reason Onset Date Comments Virtualist 05/25/2022 Reason Comments Scrotal Problem Reason Comments New Patient Scrotal swelling Reason Comments High Blood Sugar Reason Comments Results Refill Request Medication Dosage Adjustment Decrease FK to 2/2 Reason Comments Appointment Reason Comments Refill Request Reason Comments Radiology US Reason Comments Clinic Prep Reason Comments Results Refill Request Medication Dosage Adjustment Increase FK to 2/2, start actigall Reason Comments Results Refill Request Medication Dosage Adjustment Decrease FK to 1.5/1.5 Reason Comments Medication Question Reason Comments Results Refill Request Medication Dosage Adjustment Increase FK to 2/2 Specialty Diagnoses / Procedures Referred By Contac t Referred To Contact CT IMAGING Diagnoses Unilateral inguinal hernia without obstruction or gangrene, recurrence not specified Procedures CT ABD/PEL WO IVCON CT ABD & PELVIS W/O CONTRAST Nanci Kamara APRN.[employer] [address] [place] [address] [address] [address] Imaging Referral ID Status Reason Start Date Expiration Date V isits Requested Visits Authorized [id number] Closed Auto-Generate d Referral 08/01/2022 04/02/2023 2 1 Specialty Diagnoses / Procedures Referred By Contac t Referred To Contact CT IMAGING Diagnoses Unilateral inguinal hernia without obstruction or gangrene, recurrence not specified Procedures CT ABD/PEL WO IVCON CT ABD & PELVIS W/O CONTRAST Kulwinder Landry MD [address] [place] [address] Ct Imaging Referral ID Status Reason Start Date Expiration Date V isits Requested Visits Authorized [id number] Closed Auto-Generate d Referral 03/22/2022 04/02/2022 2 2 Reason Comments Biopsy Request jamison perm liver biop sy. Ideally we would like for it to be or Monday. Patient will not have a ride Monday. Reason Comments Results Orders Reason Comments Reason Comments New Patient Specialty Diagnoses / Procedures Referred By Contac t Referred To Contact Neurosurgery / SPINE SURGERY Diagnoses lumbar spine pt to bring disc Procedures OFFICE/OP CONSLTJ NEW/EST PT MOD MDM 40 MINUTES NEW SPINE SURGICAL TRIAGE Tiffany Bucio [address] [id number] Jane Hernandez PA-C [address] [place] [address] Referral ID Status Reason Start Date Expiration Date Visits Re quested Visits Authorized [id number] Closed 12/07/2022 04/02/2023 1 1 Reason Onset Date Comments Refill Request 05/11/2023 Reason Comments Return Call Request Reason Comments Results Refill Request Medication Dosage Adjustment Increase ta crolimus to 2/2 Reason Comments Abnormal Lab Elevated lfts Reason Comments Biopsy Request needs a STAT liver u ltrasound and biopsy tomorrow. Reason Comments Pathology review Reason Comments Results Refill Request Medication Dosage Adjustment Increase ac tigall to 3 times per day Reason Comments Results Refill Request Medication Dosage Adjustment Decrease FK to 1/1 Care Teams (unrecognized sec tion and content) Team Status: Active Member Role Status Dates Jordan Azar MD Primary Care Provider Active Team Status: Inactive Member Role Status Dates Jordan Azar MD Primary Care Provider Active Jane Hernandez PA-C Attending Provider Active Regional Account Director Relationship Specialty Start Date End Date Jordan Azar MD PCP - [facility] 10/13/14 Hua Marquez Jr. [address] [address] Referring Gastroenterology 05/25/18 Ramirez Nieto MD [address] [place] [address] Primary Staff Physician Cardiology 12/31/20 Regional Account Director Relationship Specialty Start Date End Date Jordan Azar MD [facility] - [facility] 10/13/14 Hua Marquez Jr. [address] [place] [address] Referring Gastroenterology 05/25/18 Ramirez Nieto MD [address] [place] [address] Primary Staff Physician Cardiology 12/31/20 Regional Account Director Relationship Specialty Start Date End Date Jordan Azar MD PCP - [facility] 10/13/14 Hua Marquez Jr. [address] [place] [address] Referring Gastroenterology 05/25/18 Ramirez Nieto MD [address] [place] [address] Primary Staff Physician Cardiology 12/31/20 Regional Account Director Relationship Specialty Start Date End Date Jordan Azar MD PCP - General Family Practice 10/13/14 Hua Marquez Jr. [address] [address] Referring Gastroenterology 05/25/18 Ramirez Nieto MD [address] [place] [address] Primary Staff Physician Cardiology 12/31/20 Regional Account Director Relationship Specialty Start Date End Date Jordan Azar MD PCP - General Family Practice 10/13/14 Hua Marquez Jr. [address] [address] Referring Gastroenterology 05/25/18 Ramirez Nieto MD [address] [place] [address] Primary Staff Physician Cardiology 12/31/20 Regional Account Director Relationship Specialty Start Date End Date Jordan Azar MD PCP - General Family Practice 10/13/14 Hua Marquez Jr. [address] [place] [address] Referring Gastroenterology 05/25/18 Ramirez Nieto MD [address] [place] [address] Primary Staff Physician Cardiology 12/31/20 Regional Account Director Relationship Specialty Start Date End Date Jordan Azar MD PCP - General Family Practice 10/13/14 Hua Marquez Jr. [address] [place] [address] Referring Gastroenterology 05/25/18 Ramirez Nieto MD [address] [place] [address] Primary Staff Physician Cardiology 12/31/20 Regional Account Director Relationship Specialty Start Date End Date Jordan Azar MD PCP - General Family Practice 10/13/14 Hua Marquez Jr. [address] [address] Referring Gastroenterology 05/25/18 Ramirez Nieto MD [address] [place] [address] Primary Staff Physician Cardiology 12/31/20 Regional Account Director Relationship Specialty Start Date End Date Jordan Azar MD PCP - [facility] 10/13/14 Hua Marquez Jr. [address] [address] Referring Gastroenterology 05/25/18 Ramirez Nieto MD [address] [place] [address] Primary Staff Physician Cardiology 12/31/20 Regional Account Director Relationship Specialty Start Date End Date Jordan Azar MD PCP - [facility] 10/13/14 Hua Marquez Jr. [address] [address] Referring Gastroenterology 05/25/18 Ramirez Nieto MD [address] [place] [address] Primary Staff Physician Cardiology 12/31/20 Regional Account Director Relationship Specialty Start Date End Date Jordan Azar MD PCP - General Family Practice 10/13/14 Hua Marquez Jr. [address] [place] [address] Referring Gastroenterology 05/25/18 Ramirez Nieto MD [address] [place] [address] Primary Staff Physician Cardiology 12/31/20 Regional Account Director Relationship Specialty Start Date End Date Jordan Azar MD PCP - [facility] Family Practice 10/13/14 Hua Marquez Jr. [address] [place] [address] Referring Gastroenterology 05/25/18 Ramirez Nieto MD [address] [place] [address] Primary Staff Physician Cardiology 12/31/20 Regional Account Director Relationship Specialty Start Date End Date Jordan Azar MD PCP - General Family Practice 10/13/14 Hua Marquez Jr. [address] [place] [address] Referring Gastroenterology 05/25/18 Ramirez Nieto MD [address] [place] [address] Primary Staff Physician Cardiology 12/31/20 Regional Account Director Relationship Specialty Start Date End Date Jordan Azar MD PCP - General Family Practice 10/13/14 Hua Marquez Jr. [address] [place] [address] Referring Gastroenterology 05/25/18 Ramirez Nieto MD [address] [place] [address] Primary Staff Physician Cardiology 12/31/20 Regional Account Director Relationship Specialty Start Date End Date Jordan Azar MD PCP - General Family Practice 10/13/14 Hua Marquez Jr. [address] [address] Referring Gastroenterology 05/25/18 Ramirez Nieto MD [address] [place] [address] Primary Staff Physician Cardiology 12/31/20 Regional Account Director Relationship Specialty Start Date End Date Jordan Azar MD PCP - [facility] 10/13/14 Hua Marquez Jr. [address] [place] [address] Referring Gastroenterology 05/25/18 Ramirez Nieto MD [address] [place] [address] Primary Staff Physician Cardiology 12/31/20 Regional Account Director Relationship Specialty Start Date End Date Jordan Azar MD PCP - [facility] 10/13/14 Hua Marquez Jr. [address] [place] [address] Referring Gastroenterology 05/25/18 Ramirez Nieto MD [address] [place] [address] Primary Staff Physician Cardiology 12/31/20 Regional Account Director Relationship Specialty Start Date End Date Jordan Azar MD PCP - [facility] 10/13/14 Hua Marquez Jr. [address] [address] Referring Gastroenterology 05/25/18 Ramirez Nieto MD [address] [place] [address] Primary Staff Physician Cardiology 12/31/20 Regional Account Director Relationship Specialty Start Date End Date Jordan Azar MD PCP - [facility] 10/13/14 Hua Marquez Jr. [address] [address] Referring Gastroenterology 05/25/18 Ramirez Nieto MD [address] [place] [address] Primary Staff Physician Cardiology 12/31/20 Regional Account Director Relationship Specialty Start Date End Date Jordan Azar MD PCP - General Family Practice 10/13/14 Hua Marquez Jr. [address] [address] Referring Gastroenterology 05/25/18 Ramirez Nieto MD [address] [place] [address] Primary Staff Physician Cardiology 12/31/20 Regional Account Director Relationship Specialty Start Date End Date Jordan Azar MD PCP - General Family Practice 10/13/14 Hua Marquez Jr. [address] [address] Referring Gastroenterology 05/25/18 Ramirez Nieto MD [address] [place] [address] Primary Staff Physician Cardiology 12/31/20 Regional Account Director Relationship Specialty Start Date End Date Jordan Azar MD PCP - General Family Practice 10/13/14 Hua Marquez Jr. [address] [address] Referring Gastroenterology 05/25/18 Ramirez Nieto MD [address] [place] [address] Primary Staff Physician Cardiology 12/31/20 Regional Account Director Relationship Specialty Start Date End Date Jordan Azar MD PCP - General Family Practice 10/13/14 Hua Marquez Jr. [address] [place] [address] Referring Gastroenterology 05/25/18 Ramirez Nieto MD [address] [place] [address] Primary Staff Physician Cardiology 12/31/20 Regional Account Director Relationship Specialty Start Date End Date Jordan Azar MD PCP - General Family Medicine 10/13/14 Hua Marquez Jr. [address] [place] [address] Referring Gastroenterology 05/25/18 Ramirez Nieto MD [address] [place] [address] Primary Staff Physician Cardiology 12/31/20 Regional Account Director Relationship Specialty Start Date End Date Jordan Azar MD PCP - General Family Medicine 10/13/14 Hua Marquez Jr., DO [address] [address] Referring Gastroenterology 05/25/18 Ramirez Nieto MD [address] [place] [address] Primary Staff Physician Cardiology 12/31/20 Regional Account Director Relationship Specialty Start Date End Date Jordan Azar MD PCP - General Family Medicine 10/13/14 Hua Marquez Jr., DO [address] [address] Referring Gastroenterology 05/25/18 Ramirez Nieto MD [address] [place] [address] Primary Staff Physician Cardiology 12/31/20 Regional Account Director Relationship Specialty Start Date End Date Jordan Azar MD PCP - General [facility] Medicine 10/13/14 Hua Marquez Jr., DO [address] [address] Referring Gastroenterology 05/25/18 Ramirez Nieto MD [address] [place] [address] Primary Staff Physician Cardiology 12/31/20 Regional Account Director Relationship Specialty Start Date End Date Jordan Azar MD PCP - General Family Medicine 10/13/14 Hua Marquez Jr., DO [address] [address] Referring Gastroenterology 05/25/18 Ramirez Nieto MD [address] [place] [address] Primary Staff Physician Cardiology 12/31/20 Regional Account Director Relationship Specialty Start Date End Date Jordan Azar MD PCP - General Family Medicine 10/13/14 Hua Marquez Jr., DO [address] [address] Referring Gastroenterology 05/25/18 Ramirez Nieto MD [address] [place] [address] Primary Staff Physician Cardiology 12/31/20 Regional Account Director Relationship Specialty Start Date End Date Jordan Azar MD PCP - General Family Medicine 10/13/14 Hua Marquez Jr., DO [address] [address] Referring Gastroenterology 05/25/18 Ramirez Nieto MD [address] [place] [address] Primary Staff Physician Cardiology 12/31/20 Regional Account Director Relationship Specialty Start Date End Date Jordan Azar MD PCP - General Family Medicine 10/13/14 Hua Marquez Jr., DO [address] [address] Referring Gastroenterology 05/25/18 Ramirez Nieto MD [address] [place] [address] Primary Staff Physician Cardiology 12/31/20 Regional Account Director Relationship Specialty Start Date End Date Jordan Azar MD PCP - General Family Medicine 10/13/14 Hua Marquez Jr., DO [address] [address] Referring Gastroenterology 05/25/18 Ramirez Nieto MD [address] [place] [address] Primary Staff Physician Cardiology 12/31/20 Regional Account Director Relationship Specialty Start Date End Date Jordan Azar MD PCP - General Family Medicine 10/13/14 Hua Marquez Jr., DO [address] [address] Referring Gastroenterology 05/25/18 Ramirez Nieto MD [address] [place] [address] Primary Staff Physician Cardiology 12/31/20 Regional Account Director Relationship Specialty Start Date End Date Jordan Azar MD PCP - General Family Medicine 10/13/14 Hua Marquez Jr., DO [address] [address] Referring Gastroenterology 05/25/18 Ramirez Nieto MD [address] [place] [address] Primary Staff Physician Cardiology 12/31/20 Regional Account Director Relationship Specialty Start Date End Date Jordan Azar MD PCP - General Family Medicine 10/13/14 Hua Marquez Jr., DO [address] [address] Referring Gastroenterology 05/25/18 Ramirez Nieto MD [address] [place] [address] Primary Staff Physician Cardiology 12/31/20 Regional Account Director Relationship Specialty Start Date End Date Jordan Azar MD PCP - General Family Medicine 10/13/14 Hua Marquez Jr., DO [address] [address] Referring Gastroenterology 05/25/18 Ramirez Nieto MD [address] [place] [address] Primary Staff Physician Cardiology 12/31/20 Regional Account Director Relationship Specialty Start Date End Date Jordan Azar MD PCP - General Family Medicine 10/13/14 Hua Marquez Jr., DO [address] [address] Referring Gastroenterology 05/25/18 Ramirez Nieto MD [address] [place] [address] Primary Staff Physician Cardiology 12/31/20 Regional Account Director Relationship Specialty Start Date End Date Jordan Azar MD PCP - General Family Medicine 10/13/14 Hua Marquez Jr., DO [address] [address] Referring Gastroenterology 05/25/18 Ramirez Nieto MD [address] [place] [address] Primary Staff Physician Cardiology 12/31/20 Regional Account Director Relationship Specialty Start Date End Date Jordan Azar MD PCP - General Family Medicine 10/13/14 Hua Marquez Jr., DO [address] [address] Referring Gastroenterology 05/25/18 Ramirez Nieto MD [address] [place] [address] Primary Staff Physician Cardiology 12/31/20 Regional Account Director Relationship Specialty Start Date End Date Jordan Azar MD PCP - General Family Medicine 10/13/14 Hua Marquez Jr., DO [address] [address] Referring Gastroenterology 05/25/18 Ramirez Nieto MD [address] [place] [address] Primary Staff Physician Cardiology 12/31/20 Regional Account Director Relationship Specialty Start Date End Date Jordan Azar MD PCP - General Family Medicine 10/13/14 Hua Marquez Jr., DO [address] [address] Referring Gastroenterology 05/25/18 Ramirez Nieto MD [address] [place] [address] Primary Staff Physician Cardiology 12/31/20 Regional Account Director Relationship Specialty Start Date End Date Jordan Azar MD PCP - General Family Medicine 10/13/14 Hua Marquez Jr., DO [address] [address] Referring Gastroenterology 05/25/18 Ramirez Nieto MD [address] [place] [address] Primary Staff Physician Cardiology 12/31/20 Regional Account Director Relationship Specialty Start Date End Date Jordan Azar MD PCP - General Family Medicine 10/13/14 Hua Marquez Jr., DO [address] [address] Referring Gastroenterology 05/25/18 Ramirez Nieto MD [address] [place] [address] Primary Staff Physician Cardiology 12/31/20 Regional Account Director Relationship Specialty Start Date End Date Jordan Azar MD PCP - General Family Medicine 10/13/14 Hua Marquez Jr., DO [address] [address] Referring Gastroenterology 05/25/18 Ramirez Nieto MD [address] [place] [address] Primary Staff Physician Cardiology 12/31/20 Team Status: Inactive Member Role Status Dates Jordan Azar MD Primary Care Provider Active Dayna Reyes MD Attending Provider Active Regional Account Director Relationship Specialty Start Date End Date Jordan Azar MD PCP - General Family Medicine 10/13/14 Hua Marquez Jr., DO [address] [address] Referring Gastroenterology 05/25/18 Ramirez Nieto MD [address] [place] [address] Primary Staff Physician Cardiology 12/31/20 Regional Account Director Relationship Specialty Start Date End Date Jordan Azar MD PCP - General Family Medicine 10/13/14 Hua Marquez Jr., DO [address] [address] Referring Gastroenterology 05/25/18 Ramirez Nieto MD [address] [place] [address] Primary Staff Physician Cardiology 12/31/20 Regional Account Director Relationship Specialty Start Date End Date Jordan Azar MD PCP - General Family Medicine 10/13/14 Hua Marquez Jr., DO [address] [address] Referring Gastroenterology 05/25/18 Ramirez Nieto MD [address] [place] [address] Primary Staff Physician Cardiology 12/31/20 Regional Account Director Relationship Specialty Start Date End Date Jordan Azar MD PCP - General Family Medicine 10/13/14 Hua Marquez Jr., DO [address] [address] Referring Gastroenterology 05/25/18 Ramirez Nieto MD [address] [place] [address] Primary Staff Physician Cardiology 12/31/20 [facility] 05/09/22 Regional Account Director Relationship Specialty Start Date End Date Jordan Azar MD PCP - General Family Medicine 10/13/14 Hua Marquez Jr., DO [address] [address] Referring Gastroenterology 05/25/18 Ramirez Nieto MD [address] [place] [address] Primary Staff Physician Cardiology 12/31/20 [facility] 05/09/22 Regional Account Director Relationship Specialty Start Date End Date Jordan Azar MD PCP - General Family Medicine 10/13/14 Hua Marquez Jr., DO [address] [address] Referring Gastroenterology 05/25/18 Ramirez Nieto MD [address] [place] [address] Primary Staff Physician Cardiology 12/31/20 [facility] 05/09/22 Regional Account Director Relationship Specialty Start Date End Date Jordan Azar MD PCP - General Family Medicine 10/13/14 Hau Marquez Jr., DO [address] [address] Referring Gastroenterology 05/25/18 Ramirez Nieto MD [address] [place] [address] Primary Staff Physician Cardiology 12/31/20 [facility] 05/09/22 Regional Account Director Relationship Specialty Start Date End Date Jordan Azar MD PCP - General Family Medicine 10/13/14 Hua Marquez Jr., DO [address] [address] Referring Gastroenterology 05/25/18 Ramirez Nieto MD [address] [place] [address] Primary Staff Physician Cardiology 12/31/20 [facility] 05/09/22 Regional Account Director Relationship Specialty Start Date End Date Jordan Azar MD PCP - General Family Medicine 10/13/14 Hua Marquez Jr., DO [address] [address] Referring Gastroenterology 05/25/18 Ramirez Nieto MD [address] [place] [address] Primary Staff Physician Cardiology 12/31/20 [facility] 05/09/22 Regional Account Director Relationship Specialty Start Date End Date Jordan Azar MD PCP - General Family Medicine 10/13/14 Hua Marquez Jr., DO [address] [address] Referring Gastroenterology 05/25/18 Ramirez Nieto MD [address] [place] [address] Primary Staff Physician Cardiology 12/31/20 [facility] 05/09/22 Regional Account Director Relationship Specialty Start Date End Date Jordan Azar MD PCP - General Family Medicine 10/13/14 Hua Marquez Jr., DO [address] [address] Referring Gastroenterology 05/25/18 Ramirez Nieto MD [address] [place] [address] Primary Staff Physician Cardiology 12/31/20 [facility] 05/09/22 Regional Account Director Relationship Specialty Start Date End Date Jordan Azar MD PCP - General Family Medicine 10/13/14 Hua Marquez Jr., DO [address] [address] Referring Gastroenterology 05/25/18 Ramirez Nieto MD [address] [place] [address] Primary Staff Physician Cardiology 12/31/20 [facility] 05/09/22 Regional Account Director Relationship Specialty Start Date End Date Jordan Azar MD PCP - General Family Medicine 10/13/14 Hua Marquez Jr., DO [address] [address] Referring Gastroenterology 05/25/18 Ramirez Nieto MD [address] [place] [address] Primary Staff Physician Cardiology 12/31/20 Kat Leal RN [facility] [address] [place] [address] Transplant Center 06/10/22 [facility] 05/09/22 Regional Account Director Relationship Specialty Start Date End Date Jordan Azar MD PCP - General Family Medicine 10/13/14 Hua Marquez Jr., DO [address] [address] Referring Gastroenterology 05/25/18 Ramirez Nieto MD [address] [place] [id number] Primary Staff Physician Cardiology 12/31/20 Kat Leal RN [address] [address] Transplant Center 06/10/22 [facility] 05/09/22 Regional Account Director Relationship Specialty Start Date End Date Jordan Azar MD PCP - General Family Medicine 10/13/14 Hua Marquez Jr., DO [address] [address] Referring Gastroenterology 05/25/18 Ramirez Nieto MD [address] [place] [address] Primary Staff Physician Cardiology 12/31/20 Kat Leal RN [facility] [address] [place] [address] Transplant Center 06/10/22 [facility] 05/09/22 Regional Account Director Relationship Specialty Start Date End Date Jordan Azar MD PCP - General Family Medicine 10/13/14 Hua Marquez Jr., DO [address] [address] Referring Gastroenterology 05/25/18 Ramirez Nieto MD [address] [place] [address] Primary Staff Physician Cardiology 12/31/20 Kat Leal, COS[employer] [facility] [address] [place] [address] Transplant Center 06/10/22 [facility] 05/09/22 Regional Account Director Relationship Specialty Start Date End Date Jordan Azar MD PCP - General Family Medicine 10/13/14 Hua Marquez Jr., DO [address] [address] Referring Gastroenterology 05/25/18 Ramirez Nieto MD [address] [place] [address] Primary Staff Physician Cardiology 12/31/20 Kat Leal RN [facility] [address] [place] [address] Transplant Center 06/10/22 [facility] 05/09/22 Regional Account Director Relationship Specialty Start Date End Date Jordan Azar MD PCP - General Family Medicine 10/13/14 Hua Marquez Jr., DO [address] [address] Referring Gastroenterology 05/25/18 Ramirez Nieto MD [address] [place] [address] Primary Staff Physician Cardiology 12/31/20 Kat Leal RN [facility] [address] [place] [address] Transplant Center 06/10/22 [facility] 05/09/22 Regional Account Director Relationship Specialty Start Date End Date Jordan Azar MD PCP - General Family Medicine 10/13/14 uHa Marquez Jr., DO [address] [address] Referring Gastroenterology 05/25/18 Ramirez Nieto MD [address] [place] [address] Primary Staff Physician Cardiology 12/31/20 Kat Leal, COSMO [facility] [address] [place] [address] Transplant Center 06/10/22 [facility] 05/09/22 Regional Account Director Relationship Specialty Start Date End Date Jordan Azar MD PCP - General Family Medicine 10/13/14 Hua Marquez Jr., DO [address] [address] Referring Gastroenterology 05/25/18 Ramirez Nieto MD [address] [place] [address] Primary Staff Physician Cardiology 12/31/20 Kat Leal, RN [facility] [address] [place] [address] Transplant Center 06/10/22 [facility] 05/09/22 Regional Account Director Relationship Specialty Start Date End Date Jordan Azar MD PCP - General Family Medicine 10/13/14 Hua Marquez Jr., DO [address] [address] Referring Gastroenterology 05/25/18 Ramirez Nieto MD [address] [place] [address] Primary Staff Physician Cardiology 12/31/20 Kat Leal RN [facility] [address] [place] [address] Transplant Center 06/10/22 [facility] 05/09/22 Regional Account Director Relationship Specialty Start Date End Date Jordan Azar MD PCP - General Family Medicine 10/13/14 Hua Marquez Jr., DO [address] [address] Referring Gastroenterology 05/25/18 Ramirez Nieto MD [address] [place] [address] Primary Staff Physician Cardiology 12/31/20 Kat Leal RN [place] [address] [place] [address] Transplant Center 06/10/22 [facility] 05/09/22 Regional Account Director Relationship Specialty Start Date End Date Jordan Azar MD PCP - General Family Medicine 10/13/14 Hua Marquez Jr., DO [address] [address] Referring Gastroenterology 05/25/18 Ramirez Nieto MD [address] [place] [address] Primary Staff Physician Cardiology 12/31/20 Kat Leal RN [facility] [address] [place] [address] Transplant Center 06/10/22 [facility] 05/09/22 Regional Account Director Relationship Specialty Start Date End Date Jordan Azar MD PCP - General Family Medicine 10/13/14 Hua Marquez Jr., DO [address] [address] Referring Gastroenterology 05/25/18 Ramirez Nieto MD [address] [place] [address] Primary Staff Physician Cardiology 12/31/20 Kat Leal, COSMO [facility] [address] [place] [address] Transplant Center 06/10/22 [facility] 05/09/22 Regional Account Director Relationship Specialty Start Date End Date Jordan Azar MD PCP - General Family Medicine 10/13/14 Hua Marquez Jr., DO [address] [place] [address] Referring Gastroenterology 05/25/18 Ramirez Nieto MD [address] [place] [address] Primary Staff Physician Cardiology 12/31/20 Kat Leal, [facility] [address] [place] [address] Transplant Center 06/10/22 [facility] 05/09/22 Regional Account Director Relationship Specialty Start Date End Date Jordan Azar MD PCP - General Family Medicine 10/13/14 Hua Marquez Jr., DO [address] [place] [address] Referring Gastroenterology 05/25/18 Ramirez Nieto MD [address] [place] [address] Primary Staff Physician Cardiology 12/31/20 Kat Leal RN [facility] [address] [place] [address] Transplant Center 06/10/22 Tiffany Bucio [address] [phone] Referring Neurosurgery 11/07/22 [facility] 05/09/22 Regional Account Director Relationship Specialty Start Date End Date Jordan Azar MD PCP - General Family Medicine 10/13/14 Hua Marquez Jr., DO [address] [place] [address] Referring Gastroenterology 05/25/18 Ramirez Nieto MD [address] [place], [place] [id number] Primary Staff Physician Cardiology 12/31/20 Kat Leal RN [facility] [address] [place] [address] Transplant Center 06/10/22 [facility] 05/09/22 Regional Account Director Relationship Specialty Start Date End Date Jordan Azar MD PCP - General Family Medicine 10/13/14 Hua Marqeuz Jr., DO [address] [place] [address] Referring Gastroenterology 05/25/18 Ramirez Nieto MD [address] [place] [address] Primary Staff Physician Cardiology 12/31/20 Kat Leal RN [facility] [address] [place] [address] Transplant Center 06/10/22 [facility] 05/09/22 Regional Account Director Relationship Specialty Start Date End Date Jordan Azar MD PCP - General Family Medicine 10/13/14 Hua Marquez Jr., DO [address] [address] Referring Gastroenterology 05/25/18 Ramirez Nieto MD [address] [place] [address] Primary Staff Physician Cardiology 12/31/20 Regional Account Director Relationship Specialty Start Date End Date Jordan Azar MD PCP - General Family Medicine 10/13/14 Hua Marquez Jr., DO [address] [address] Referring Gastroenterology 05/25/18 Ramirez Nieto MD [address] [place] [address] Primary Staff Physician Cardiology 12/31/20 Regional Account Director Relationship Specialty Start Date End Date Jordan Azar MD PCP - General Family Medicine 10/13/14 Hua Marquez Jr., DO [address] [address] Referring Gastroenterology 05/25/18 Ramirez Nieto MD [address] [place] [address] Primary Staff Physician Cardiology 12/31/20 Kat Leal, COSMO [facility] [address] [place] [address] Transplant Center 06/10/22 Tiffany Bucio [address] [phone] Referring Neurosurgery 11/07/22 [facility] 05/09/22 Regional Account Director Relationship Specialty Start Date End Date Jordan Azar MD PCP - General Family Medicine 10/13/14 Hua Marquez Jr., DO [address] [place] [address] Referring Gastroenterology 05/25/18 Ramirez Nieto MD [address] [place] [address] Primary Staff Physician Cardiology 12/31/20 Kat Leal RN [facility] [address] [place] [address] Transplant Center 06/10/22 Tiffany Bucio [address] [place] [phone] Referring Neurosurgery 11/07/22 [facility] 05/09/22 Regional Account Director Relationship Specialty Start Date End Date Jordan Azar MD PCP - General Family Medicine 10/13/14 Hua Marquez Jr., DO [address] [place] [address] Referring Gastroenterology 05/25/18 Ramirez Nieto MD [address] [place] [address] Primary Staff Physician Cardiology 12/31/20 Kat Leal, COSMO [facility] [address] [place] [address] Transplant Center 06/10/22 Tiffany Bucio [address] [phone] Referring Neurosurgery 11/07/22 [facility] 05/09/22 Regional Account Director Relationship Specialty Start Date End Date Jordan Azar MD PCP - General Family Medicine 10/13/14 Hua Marquez Jr., [address] [address] Referring Gastroenterology 05/25/18 Ramirez Nieto MD [address] [place] [address] Primary Staff Physician Cardiology 12/31/20 Kat Leal, COSMO [facility] [address] [place] [address] Transplant Center 06/10/22 Tiffany Bucio [address] [phone] Referring Neurosurgery 11/07/22 [facility] 05/09/22 Regional Account Director Relationship Specialty Start Date End Date Jordan Azar MD PCP - General Family Medicine 10/13/14 Hua Marquez Jr., DO [address] [place] [address] Referring Gastroenterology 05/25/18 Ramirez Nieto MD [address] [place] [address] Primary Staff Physician Cardiology 12/31/20 Kat Leal, COSMO [facility] [address] [place] [address] Transplant Center 06/10/22 Tiffany Bucio [address] [place] [phone] Referring Neurosurgery 11/07/22 [facility] 05/09/22 Regional Account Director Relationship Specialty Start Date End Date Jordan Azar MD PCP - General Family Medicine 10/13/14 Hua Marquez Jr., DO [address] [place] [address] Referring Gastroenterology 05/25/18 Ramirez Nieto MD [address] [place] [id number] Primary Staff Physician Cardiology 12/31/20 Kat Leal RN [facility] [address] [place] [address] Transplant Center 06/10/22 Tiffany Bucio [address] [place] [phone] Referring Neurosurgery 11/07/22 [facility] 05/09/22 Regional Account Director Relationship Specialty Start Date End Date Jordan Azar MD PCP - General Family Medicine 10/13/14 Hua Marquez Jr., DO [address] [place] [address] Referring Gastroenterology 05/25/18 Ramirez Nieto MD [address] [place] [address] Primary Staff Physician Cardiology 12/31/20 Kat Leal, [facility]MO [facility] [address] [place] [address] Transplant Center 06/10/22 Tiffany Bucio [address] [place] [phone] Referring Neurosurgery 11/07/22 [facility] 05/09/22 Regional Account Director Relationship Specialty Start Date End Date Jordan Azar MD PCP - General Family Medicine 10/13/14 Hua Marquez Jr., DO [address] [place] [address] Referring Gastroenterology 05/25/18 Ramirez Nieto MD [address] [place] [id number] Primary Staff Physician Cardiology 12/31/20 Kat Leal, COSMO [facility] [address] [place] [address] Transplant Center 06/10/22 Tiffany Bucio [address] [place] [phone] Referring Neurosurgery 11/07/22 [facility] 05/09/22 Regional Account Director Relationship Specialty Start Date End Date Jordan Azar MD PCP - General Family Medicine 10/13/14 Hua Marquez Jr., DO [address] [address] Referring Gastroenterology 05/25/18 Ramirez Nieto MD [address] [place] [address] Primary Staff Physician Cardiology 12/31/20 Regional Account Director Relationship Specialty Start Date End Date Jordan Azar MD PCP - General Family Medicine 10/13/14 Hua Marquez Jr., DO [address] [place] [address] Referring Gastroenterology 05/25/18 Ramirez Nieto MD [address] [place] [address] Primary Staff Physician Cardiology 12/31/20 Regional Account Director Relationship Specialty Start Date End Date Jordan Azar MD PCP - General Family Medicine 10/13/14 Hua Marquez Jr., DO [address] [address] Referring Gastroenterology 05/25/18 Ramirez Nieto MD [address] [place] [address] Primary Staff Physician Cardiology 12/31/20 Regional Account Director Relationship Specialty Start Date End Date Jordan Azar MD PCP - General Family Medicine 10/13/14 Hua Marquez Jr., DO [address] [address] Referring Gastroenterology 05/25/18 Ramirez Nieto MD [address] [place], [place] [address] Primary Staff Physician Cardiology 12/31/20 Regional Account Director Relationship Specialty Start Date End Date Jordan Azar MD PCP - General Family Medicine 10/13/14 Hua Marquez Jr., DO [address] [place] [address] Referring Gastroenterology 05/25/18 Ramirez Nieto MD [address] [place] [address] Primary Staff Physician Cardiology 12/31/20 Kat Leal, COSMO [facility] [address] [place] [address] Transplant Center 06/10/22 Tiffany Bucio [address] [phone] Referring Neurosurgery 11/07/22 [facility] 05/09/22 Regional Account Director Relationship Specialty Start Date End Date Jordan Azar MD PCP - General Family Medicine 10/13/14 Hua Marquez Jr., DO [address] [place] [address] Referring Gastroenterology 05/25/18 Ramirez Nieto MD [address] [place] [address] Primary Staff Physician Cardiology 12/31/20 Kat Leal, COSMO [facility] [address] [place] [address] Transplant Center 06/10/22 Tiffany Bucio [address] [place] [phone] Referring Neurosurgery 11/07/22 [facility] 05/09/22 Regional Account Director Relationship Specialty Start Date End Date Jordan Azar MD PCP - General Family Medicine 10/13/14 Hua Marquez Jr., DO [address] [place] [address] Referring Gastroenterology 05/25/18 Ramirez Nieto MD [address] [place] [address] Primary Staff Physician Cardiology 12/31/20 Kat Leal RN [facility] [address] [place] [address] Transplant Center 06/10/22 Tiffany Bucio [address] [place] [phone] Referring Neurosurgery 11/07/22 [facility] 05/09/22 Regional Account Director Relationship Specialty Start Date End Date Jordan Azar MD PCP - General Family Medicine 10/13/14 Hua Marquez Jr., DO [address] [place] [address] Referring Gastroenterology 05/25/18 Ramirez Nieto MD [address] [place] [id number] Primary Staff Physician Cardiology 12/31/20 Kat Leal, COSMO [facility] [address] [place] [address] Transplant Center 06/10/22 Tiffany Bucio [address] [place] [phone] Referring Neurosurgery 11/07/22 [facility] 05/09/22 Regional Account Director Relationship Specialty Start Date End Date Jordan Azar MD PCP - General Family Medicine 10/13/14 Hua Marquez Jr., DO [address] [place] [address] Referring Gastroenterology 05/25/18 Ramirez Nieto MD [address] [place] [address] Primary Staff Physician Cardiology 12/31/20 Kat Leal, COSMO [facility] [address] [place] [address] Transplant Center 06/10/22 Tiffany Bucio [address] [place] [phone] Referring Neurosurgery 11/07/22 [facility] 05/09/22 Regional Account Director Relationship Specialty Start Date End Date Jordan Azar MD PCP - General Family Medicine 10/13/14 Hua Marquez Jr., DO [address] [place] [address] Referring Gastroenterology 05/25/18 Ramirez Nieto MD [address] [place] [address] Primary Staff Physician Cardiology 12/31/20 Kat Leal, RN [facility] [address] [place] [address] Transplant Center 06/10/22 Tiffany Bucio [address] [place] [phone] Referring Neurosurgery 11/07/22 [facility] 05/09/22 Regional Account Director Relationship Specialty Start Date End Date Jordan Azar MD PCP - General Family Medicine 10/13/14 Hua Marquez Jr., DO [address] [place] [address] Referring Gastroenterology 05/25/18 Ramirez Nieto MD [address] [place] [address] Primary Staff Physician Cardiology 12/31/20 Kat Leal, COSMO [facility] [address] [place] [address] Transplant Center 06/10/22 Tiffany Bucio [address] [phone] Referring Neurosurgery 11/07/22 [facility] 05/09/22 Regional Account Director Relationship Specialty Start Date End Date Jordan Azar MD PCP - General Family Medicine 10/13/14 Hua Marquez Jr., DO [address] [address] Referring Gastroenterology 05/25/18 Ramirez Nieto MD [address] [place] [address] Primary Staff Physician Cardiology 12/31/20 Kat Leal RN [facility] [address] [place] [address] Transplant Center 06/10/22 Tiffany Bucio [address] [phone] Referring Neurosurgery 11/07/22 [facility] 05/09/22 Regional Account Director Relationship Specialty Start Date End Date Jordan Azar MD PCP - General Family Medicine 10/13/14 Hua Marquez Jr., DO [address] [address] Referring Gastroenterology 05/25/18 Ramirez Nieto MD [address] [place] [address] Primary Staff Physician Cardiology 12/31/20 Kat Leal RN [facility] [address] [place] [address] Transplant Center 06/10/22 Tiffany Bucio [address] [phone] Referring Neurosurgery 11/07/22 [facility] 05/09/22 Regional Account Director Relationship Specialty Start Date End Date Jordan Azar MD PCP - General Family Medicine 10/13/14 Hua Marquez Jr., DO [address] [place] [address] Referring Gastroenterology 05/25/18 Ramirez Nieto MD [address] [place] [id number] Primary Staff Physician Cardiology 12/31/20 Kat Leal RN [facility] [address] [place] [address] Transplant Center 06/10/22 Tiffany Bucio [address] [place] [phone] Referring Neurosurgery 11/07/22 [facility] 05/09/22 Regional Account Director Relationship Specialty Start Date End Date Jordan Azar MD PCP - General Family Medicine 10/13/14 Hua Marquez Jr., DO [address] [place] [address] Referring Gastroenterology 05/25/18 Ramirez Nieto MD [address] [place] [address] Primary Staff Physician Cardiology 12/31/20 Kat Leal, COSMO [facility] [address] [place] [address] Transplant Center 06/10/22 Tiffany Bucio [address] [phone] Referring Neurosurgery 11/07/22 [facility] 05/09/22 Regional Account Director Relationship Specialty Start Date End Date Jordan Azar MD PCP - General Family Medicine 10/13/14 Hua Marquez Jr., DO [address] [place] [address] Referring Gastroenterology 05/25/18 Ramirez Nieto MD [address] [place] [address] Primary Staff Physician Cardiology 12/31/20 Kat Leal, COSMO [facility] [address] [place] [address] Transplant Center 06/10/22 Tiffany Bucio [address] [phone] Referring Neurosurgery 11/07/22 [facility] 05/09/22 Regional Account Director Relationship Specialty Start Date End Date Jordan Azar MD PCP - General Family Medicine 10/13/14 Hua Marquez Jr., DO [address] [place] [address] Referring Gastroenterology 05/25/18 Ramirez Nieto MD [address] [place] [address] Primary Staff Physician Cardiology 12/31/20 Kat Leal, COSMO [facility] [address] [place] [address] Transplant Center 06/10/22 Tiffany Bucio 703 [facility] [address] [place] [address] Referring Neurosurgery 11/07/22 [facility] 05/09/22 Regional Account Director Relationship Specialty Start Date End Date Jordan Azar MD PCP - General Family Medicine 10/13/14 Hua Marquez Jr., DO [address] [place] [address] Referring Gastroenterology 05/25/18 Ramirez Nieto MD [address] [place] [id number] Primary Staff Physician Cardiology 12/31/20 Kat Leal, COSMO [facility] [address] [place] [address] Transplant Center 06/10/22 Tiffany Bucio [address] [phone] Referring Neurosurgery 11/07/22 [facility] 05/09/22 Regional Account Director Relationship Specialty Start Date End Date Jordan Azar MD PCP - General Family Medicine 10/13/14 Hua Marquez Jr., DO [address] [place] [address] Referring Gastroenterology 05/25/18 Ramirez Nieto MD [address] [place] [address] Primary Staff Physician Cardiology 12/31/20 Kat Leal RN [facility] [address] [place] [address] Transplant Center 06/10/22 Tiffany Bucio [address] [place] [phone] Referring Neurosurgery 11/07/22 [facility] 05/09/22 Regional Account Director Relationship Specialty Start Date End Date Jordan Azar MD PCP - General Family Medicine 10/13/14 Hua Marquez Jr., [address] [place] [address] Referring Gastroenterology 05/25/18 Ramirez Nieto MD [address] [place] [address] Primary Staff Physician Cardiology 12/31/20 Kat Leal RN [facility] [address] [place] [address] Transplant Center 06/10/22 Tiffany Bucio [address] [place] [phone] Referring Neurosurgery 11/07/22 [facility] 05/09/22 Regional Account Director Relationship Specialty Start Date End Date Jordan Azar MD PCP - General Family Medicine 10/13/14 Hua Marquez Jr., DO [address] [facility] [address] [place] [address] Referring Gastroenterology 05/25/18 Ramirez Nieto MD [address] [place] [address] Primary Staff Physician Cardiology 12/31/20 Kat Leal, [facility] [address] [place] [address] Transplant Center 06/10/22 Tiffany Bucio 703 [facility] [address] [place] [address] Referring Neurosurgery 11/07/22 [facility] 05/09/22 Goals (unrecognized section and content) Goals may be documented in a n alternate sectionNo InformationGoals may be documented in an alternate section FOR RECORDS PERTAINING TO PATIENTS WHO ARE OR HAVE BEEN ENROLLED IN A CHEMICAL DEPENDENCY/SUBSTANCEABUSE PROGRAM, SOME INFORMATION MAY BE OMITTED. This clinical summary was aggregated from multiple sources. Caution should be exercised in using it in the provision of clinical care. This summary normalizes information from multiple sources, and as a consequence, information in this document may materially change the coding, format and clinical context of patient data. In addition, data may be omitted in some cases. CLINICAL DECISIONS SHOULD BE BASED ON THE PRIMARY CLINICAL RECORDS. [facility]. provides no warranty or guarantee of the accuracy or completeness of information in this document.
--- NOTE | 2024-11-22 10:29 | XR_ITS ---
The [place] [id number] Patient Name: JORDAN AGUILAR MRN: [id number] date: 1960 Sex: M Assigned Patient Location: [facility] Current Patient Location: [facility] Accession/Order Number: [id number] Exam Date: 11/22/2024 10:45 Report Date: 11/22/2024 12:45 At the request of: JORDAN AZAR MD Procedure: XR cervical spine 2-3V CERVICAL SPINE 3 views: CLINICAL HISTORY: Lumbar Radiculitis COMPARISON: None FINDINGS: Only C1-C6 on the lateral projection. Moderate facet arthropathy and moderate intervertebral space narrowing notably C4-C6. C6-7 and C7-T1 not visualized. No prevertebral soft tissue swelling identified. XR/XR cervical spine 2-3V IMPRESSION: Moderate degenerative changes of the visualized cervical spine. Impression dictated by: Tuan Moreland M.D. 11/22/2024 12:45 PM Dictation Location: [place] [address] Electronically authenticated by: [id number] Y Date: 11/22/2024 12:45
== END 2024-11-22 10:08 | disposition home or self-care (01) ==
LOC: RAD 10:09
PROVIDERS: PCP Family Medicine; Visit Provider Family Medicine
DX: M54.16 Radiculopathy, lumbar region (principal); M50.30 Other cervical disc degeneration, unspecified cervical region; I71.40 Abdominal aortic aneurysm, without rupture, unspecified
CPT/HCPCS: 72040

== ENCOUNTER 2024-11-22 10:14 | Outpatient (OUT) | payer OTHER, SELFPAY ==
--- NOTE | 2024-11-22 10:27 | XR_ITS ---
The [address] [address] Patient Name: JORDAN AGUILAR MRN: [id number] date: 1960 Sex: M Assigned Patient Location: [facility] Current Patient Location: [facility] Accession/Order Number: [id number] Exam Date: 11/22/2024 10:45 Report Date: 11/22/2024 12:43 At the request of: JORDAN AZAR MD Procedure: XR lumbar spine min 4V LUMBAR SPINE - 5 views CLINICAL HISTORY: Lumbar Radiculitis COMPARISON: MRI 10/13/2022 FINDINGS: Straightening and mild dextrocurvature. Moderate severe intervertebral space narrowing and facet arthropathy of S1. Owzz-yu-suadobif facet arthropathy L4-5. Mild facet arthropathy elsewhere. Similar appearance L1 compression deformity. No definite pars intra-articular is defects or spondylolisthesis. XR/XR lumbar spine min 4V IMPRESSION: Progression of the degenerative changes L5-S1 otherwise mild multilevel facet arthropathy. Chronic compression deformity L1 Impression dictated by: Tuan Moreland M.D. 11/22/2024 12:43 PM Dictation Location: [place] [address] Electronically authenticated by: [id number] Y Date: 11/22/2024 12:43
--- OUTSIDE RECORDS SUMMARY | 2024-11-22 10:32 | XMS_ITS | CCD ---
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 Unavailable Gerson PORTILLO, Chete Unavailable [phone] Jordan Azar MD Primary Care Provider [phone] Hua Marquez Jr. Unavailable [phone] Gerson PORTILLO, Chete Unavailable [phone] Jordan Azar MD Primary Care Provider [phone] Hua Marquez Jr. Unavailable Jordan Azar MD Primary Care Provider [phone] Jimmy Escalante DO, David L Unavailable Jordan Azar MD Primary Care Provider [phone] Jimmy Escalante DO, David L Unavailable [phone] Gerson PORTILLO, Chete Unavailable DAYNA REYES Referring Unavailab le JORDAN AZAR Primary Care Unavailable MD Jordan Azar Primary Care Provider [phone] MD Dayna Reyes Attending Provider Elivs WILBURNKat Unavailable Unavailable HOY ., DR ORTEGA [...] Tiffany Bucio Unavailable Ramirez Nieto MD Unavailable [phone] MD Jordan Azar Primary Care Provider [phone] KALYN Hernandez Attending Provider [phone] Jordan Azar MD Primary Care Provider [phone] Gerson PORTILLO, Ramirez Bokeelia Unavailable [phone] Bonifacio Null Attending Unavailab le Bonifacio Null [...] HOY, JORDAN M Primary Care Unavailable HOY, JODRAN M Primary Care Unavailable REBECCA MASCORRO A [...] [PREGABALIN] Drug Allergy 5 Mental Status Change [facility] (1 source) pregabalin Drug Allergy 5 [facility] Repository (1 source) pregabalin Drug Allergy 3 [facility] Repository Medications Current Medications Medication Drug Class(es) [...] on above: Take 2 tablets by mo [facility] every 6 hours as needed. Take 2 [...] on above: Take 1 capsule by mo [facility] twice daily for 7 days. Elavil OTC [...] 05/27/2022 Discontinued take 1 capsule by mo [facility] every twelve hours CellCept 250 MG 1 [...] 1 tablet by mouth twice daily Hydrocodone-Acetaminophen ([place]) 7.5-32 5 mg Tablet Discontinued 1 TAB [...] 2017 12:00am April 27, 2018 1:51pm nystatin [id number] unt/ml oral suspension (6 sources) Polyene Antifungal [...] Comment on above: Take 4 tablets by [facility] once a day 05/09/22-05/12/22 then take 3 [...] E-Cancel) Start: 02-11-2022 take 3 tablets by [facility] once daily spironolactone (ALDACTONE) 100 mg tablet [...] Comment on above: Take 1 tablet by [facility] once daily. Take 2 tablets by mo [facility] once daily. Take 1.5 tablets by mouth once daily. Take 3 tablets by mo [facility] once daily. Take 4 tablets by mo [...] on above: Take 1 capsule by mo [facility] twice daily. vitamin a 00552 unt oral capsule (20 sources) Vitamin A [...] on above: Take 1 capsule by mo [facility] once daily. VITAMIN K2 ORAL (3 sources) End: 07-07-2021 take 1 tablet by mouth once daily VITAMIN K2 ORAL Take 1 tablet by mouth once daily. 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 [employer] Insurance Agent: JADE Transcribe Date/Time: Feb 07 2024 9:26A Dictated by : ARTEMIO FLORES MD This examination was interpreted and the report reviewed and electronically signed by: JESSICA VANG MD on Feb 07 2024 10:56AM [facility] DIVISION OF RADIOLOGY Radiology Study observation (narrative) [facility] No Panel InformationOrdered By: [facility] Provider on 02-07-2024 [facility] US.doppler Abdominal vessels on 02-07-2024 * * *Final Report* * * DATE OF EXAM: Feb 07 2024 9:14AM [facility] 1233 - US ABD LIVER VASCULAR / [...] phasic wave form. 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 [employer] Insurance Agent: JADE Transcribe Date/Time: Feb 07 2024 9:26A Dictated by : ARTEMIO FLORES MD This examination was interpreted and the report reviewed and electronically signed by: JESSICA VANG MD on Feb 07 2024 10:56AM [facility] US.doppler Unspecified body regionon 02-07-2024 * * *Final Report* * * DATE OF EXAM: Feb 07 2024 9:10AM [facility] 1033 - US DOPPLER COMPLETE / PROCEDURE [...] phasic wave form. 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 [employer] Insurance Agent: JADE Transcribe Date/Time: Feb 07 2024 9:26A Dictated by : ARTEMIO FLORES MD This examination was interpreted and the report reviewed and electronically signed by: JESSICA VANG MD on Feb 07 2024 10:56AM EST [facility] CNCOon 02-12-2023 CNCO Letter Text [facility] CMV DNA DETECTION AND QUANTo n 01-17-2023 CMV DNA JAIME+probe Qn (P) Not detected Not Detected [facility] TACROLIMUS/FK-506 BLon 01-17 Tacrolimus (Bld) [Mass/Vol] 11.1 ng/mL 5.0 - 20.0 ng/mL [facility] CBC W Auto Differential pane l (Bld)on 01-16-2023 Basophils (Bld) [#/Vol] 0.04 10*3/uL <0.11 k/uL [facility] Basophils/100 WBC (Bld) 0.6 % [facility] Differential cell count method Nom (Bld) Auto [facility] Eosinophils (Bld) [#/Vol] 0.10 10*3/uL <0.46 k/uL [facility] Eosinophils/100 WBC (Bld) 1.6 % [facility] Erythrocyte distribution width (RBC) [Ratio] 13.6 % 11.5 - 15.0 % [facility] Hematocrit (Bld) [Volume fraction] 44.2 % 39.0 - 51.0 % [facility] Hemoglobin (Bld) [Mass/Vol] 14.5 g/dL 13.0 - 17.0 g/dL [facility] Immature granulocytes (Bld) [#/Vol] 0.04 10*3/uL <0.10 k/uL [facility] Immature granulocytes/100 WBC (Bld) 0.6 % [facility] Lymphocytes (Bld) [#/Vol] 0.88 10*3/uL Low 1.00 - 4.00 k/uL [facility] Lymphocytes/100 WBC (Bld) 13.8 % [facility] MCH (RBC) [Entitic mass] 31.6 pg 26.0 - 34.0 pg [facility] MCHC (RBC) [Mass/Vol] 32.8 g/dL 30.5 - 36.0 g/dL [facility] MCV (RBC) [Entitic vol] 96.3 fL 80.0 - 100.0 fL [facility] Monocytes (Bld) [#/Vol] 0.52 10*3/uL <0.87 k/uL [facility] Monocytes/100 WBC (Bld) 8.1 % [facility] Neutrophils (Bld) [#/Vol] 4.82 10*3/uL 1.45 - 7.50 k/uL [facility] Neutrophils/100 WBC (Bld) 75.3 % [facility] Nucleated RBC (Bld) [#/Vol] <0.01 k/uL [facility] Nucleated RBC/100 WBC (Bld) [Ratio] 0.0 /100 WBC [facility] Platelet mean volume (Bld) [Entitic vol] 10.7 fL 9.0 - 12.7 fL [facility] Platelets (Bld) [#/Vol] 139 10*3/uL Low 150 - 400 k/uL [facility] RBC (Bld) [#/Vol] 4.59 10*6/uL 4.20 - 6.0 0 m/uL [facility] WBC (Bld) [#/Vol] 6.40 10*3/uL 3.70 - 11.00 k/uL [facility] Comprehensive metabolic 2000 panelon 01-16-2023 Albumin [Mass/Vol] 4.6 g/dL 3.9 - 4.9 g/dL [facility] ALP [Catalytic activity/Vol] 198 U/L High 38 - 113 U/L [facility] ALT [Catalytic activity/Vol] 64 U/L High 10 - 54 U/L [facility] Anion gap [Moles/Vol] 8 mmol/L Low 9 - 18 mmol/L [facility] AST [Catalytic activity/Vol] 37 U/L 14 - 40 U/L [facility] Bilirubin [Mass/Vol] 0.6 mg/dL 0.2 - 1 .3 mg/dL [facility] Calcium [Mass/Vol] 10.1 mg/dL 8.5 - 10. 2 mg/dL [facility] Chloride [Moles/Vol] 104 mmol/L 97 - 10 5 mmol/L [facility] CO2 [Moles/Vol] 28 mmol/L 22 - 30 mmol/L [facility] Creatinine [Mass/Vol] 1.13 mg/dL 0.73 - 1.22 mg/dL [facility] Estimated Glomerular Filtration Rate 73 mL/min/1.73m >=60 mL/min/1.73 m [facility] Glucose [Mass/Vol] 115 mg/dL High 74 - 99 mg/dL [facility] Potassium [Moles/Vol] 5.1 mmol/L 3.7 - 5.1 mmol/L [facility] Protein [Mass/Vol] 7.2 g/dL 6.3 - 8.0 g/dL [facility] Sodium [Moles/Vol] 140 mmol/L 136 - 144 mmol/L [facility] Urea nitrogen [Mass/Vol] 24 mg/dL 9 - 24 mg/dL [facility] GGT BLDon 01-16-2023 Gamma glutamyl transferase [Catalytic activity/Vol] 198 U/L High 10 - 70 U/L [facility] MAGNESIUM BLDon 01-16-2023 Magnesium [Mass/Vol] 1.9 mg/dL 1.7 - 2 .3 mg/dL [facility] PHOSPHORUS INORGANICon 01-16 Phosphate [Mass/Vol] 3.3 mg/dL 2.7 - 4 .8 mg/dL [facility] CMV DNA DETECTION AND QUANTo n 01-10-2023 CMV DNA JAIME+probe Qn (P) Not detected Not Detected [facility] TACROLIMUS/FK-506 BLon 01-10 Tacrolimus (Bld) [Mass/Vol] 10.5 ng/mL 5.0 - 20.0 ng/mL [facility] CBC W Auto Differential pane l (Bld)on 01-09-2023 Basophils (Bld) [#/Vol] 0.04 10*3/uL <0.11 k/uL [facility] Basophils/100 WBC (Bld) 0.5 % [facility] Differential cell count method Nom (Bld) Auto [facility] Eosinophils (Bld) [#/Vol] 0.12 10*3/uL <0.46 k/uL [facility] Eosinophils/100 WBC (Bld) 1.6 % [facility] Erythrocyte distribution width (RBC) [Ratio] 13.6 % 11.5 - 15.0 % [facility] Hematocrit (Bld) [Volume fraction] 43.1 % 39.0 - 51.0 % [facility] Hemoglobin (Bld) [Mass/Vol] 14.3 g/dL 13.0 - 17.0 g/dL [facility] Immature granulocytes (Bld) [#/Vol] 0.06 10*3/uL <0.10 k/uL [facility] Immature granulocytes/100 WBC (Bld) 0.8 % [facility] Lymphocytes (Bld) [#/Vol] 1.07 10*3/uL 1.00 - 4.00 k/uL [facility] Lymphocytes/100 WBC (Bld) 14.4 % [facility] MCH (RBC) [Entitic mass] 31.6 pg 26.0 - 34.0 pg [facility] MCHC (RBC) [Mass/Vol] 33.2 g/dL 30.5 - 36.0 g/dL [facility] MCV (RBC) [Entitic vol] 95.1 fL 80.0 - 100.0 fL [facility] Monocytes (Bld) [#/Vol] 0.56 10*3/uL <0.87 k/uL [facility] Monocytes/100 WBC (Bld) 7.5 % [facility] Neutrophils (Bld) [#/Vol] 5.60 10*3/uL 1.45 - 7.50 k/uL [facility] Neutrophils/100 WBC (Bld) 75.2 % [facility] Nucleated RBC (Bld) [#/Vol] <0.01 k/uL [facility] Nucleated RBC/100 WBC (Bld) [Ratio] 0.0 /100 WBC [facility] Platelet mean volume (Bld) [Entitic vol] 10.5 fL 9.0 - 12.7 fL [facility] Platelets (Bld) [#/Vol] 144 10*3/uL Low 150 - 400 k/uL [facility] RBC (Bld) [#/Vol] 4.53 10*6/uL 4.20 - 6.0 0 m/uL [facility] WBC (Bld) [#/Vol] 7.45 10*3/uL 3.70 - 11.00 k/uL [facility] Comprehensive metabolic 2000 panelon 01-09-2023 Albumin [Mass/Vol] 4.7 g/dL 3.9 - 4.9 g/dL [facility] ALP [Catalytic activity/Vol] 241 U/L High 38 - 113 U/L [facility] ALT [Catalytic activity/Vol] 88 U/L High 10 - 54 U/L [facility] Anion gap [Moles/Vol] 8 mmol/L Low 9 - 18 mmol/L [facility] AST [Catalytic activity/Vol] 37 U/L 14 - 40 U/L [facility] Bilirubin [Mass/Vol] 0.5 mg/dL 0.2 - 1 .3 mg/dL [facility] Calcium [Mass/Vol] 10.1 mg/dL 8.5 - 10. 2 mg/dL [facility] Chloride [Moles/Vol] 103 mmol/L 97 - 10 5 mmol/L [facility] CO2 [Moles/Vol] 28 mmol/L 22 - 30 mmol/L [facility] Creatinine [Mass/Vol] 1.14 mg/dL 0.73 - 1.22 mg/dL [facility] Estimated Glomerular Filtration Rate 72 mL/min/1.73m >=60 mL/min/1.73 m [facility] Glucose [Mass/Vol] 137 mg/dL High 74 - 99 mg/dL [facility] Potassium [Moles/Vol] 4.9 mmol/L 3.7 - 5.1 mmol/L [facility] Protein [Mass/Vol] 7.3 g/dL 6.3 - 8.0 g/dL [facility] Sodium [Moles/Vol] 139 mmol/L 136 - 144 mmol/L [facility] Urea nitrogen [Mass/Vol] 22 mg/dL 9 - 24 mg/dL [facility] GGT BLDon 01-09-2023 Gamma glutamyl transferase [Catalytic activity/Vol] 215 U/L High 10 - 70 U/L [facility] MAGNESIUM BLDon 01-09-2023 Magnesium [Mass/Vol] 1.9 mg/dL 1.7 - 2 .3 mg/dL [facility] PHOSPHORUS INORGANICon 01-09 Phosphate [Mass/Vol] 2.6 mg/dL Low 2.7 - 4 .8 mg/dL [facility] US ABD LIVER VASCULARon 11-01 [facility] US DOPPLER COMPLETEon 2022 [facility] TACROLIMUS/FK-506 BLon 10-05 Tacrolimus (Bld) [Mass/Vol] 6.5 ng/mL 5.0 - 20.0 ng/mL [facility] CMV DNA DETECTION AND QUANTo n 10-04-2022 CMV DNA JAIME+probe Qn (P) Not detected Not Detected [facility] CBC W Auto Differential pane l (Bld)on 10-03-2022 Basophils (Bld) [#/Vol] 0.03 10*3/uL <0.11 k/uL [facility] Basophils/100 WBC (Bld) 0.2 % [facility] Differential cell count method Nom (Bld) Auto [facility] Eosinophils (Bld) [#/Vol] 0.10 10*3/uL <0.46 k/uL [facility] Eosinophils/100 WBC (Bld) 0.8 % [facility] Erythrocyte distribution width (RBC) [Ratio] 14.4 % 11.5 - 15.0 % [facility] Hematocrit (Bld) [Volume fraction] 43.3 % 39.0 - 51.0 % [facility] Hemoglobin (Bld) [Mass/Vol] 14.6 g/dL 13.0 - 17.0 g/dL [facility] Immature granulocytes (Bld) [#/Vol] 0.06 10*3/uL <0.10 k/uL [facility] Immature granulocytes/100 WBC (Bld) 0.5 % [facility] Lymphocytes (Bld) [#/Vol] 1.27 10*3/uL 1.00 - 4.00 k/uL [facility] Lymphocytes/100 WBC (Bld) 10.2 % [facility] MCH (RBC) [Entitic mass] 30.2 pg 26.0 - 34.0 pg [facility] MCHC (RBC) [Mass/Vol] 33.7 g/dL 30.5 - 36.0 g/dL [facility] MCV (RBC) [Entitic vol] 89.5 fL 80.0 - 100.0 fL [facility] Monocytes (Bld) [#/Vol] 0.76 10*3/uL <0.87 k/uL [facility] Monocytes/100 WBC (Bld) 6.1 % [facility] Neutrophils (Bld) [#/Vol] 10.27 10*3/uL High 1.45 - 7.50 k/uL [facility] Neutrophils/100 WBC (Bld) 82.2 % [facility] Nucleated RBC (Bld) [#/Vol] <0.01 k/uL [facility] Nucleated RBC/100 WBC (Bld) [Ratio] 0.0 /100 WBC [facility] Platelet mean volume (Bld) [Entitic vol] 10.8 fL 9.0 - 12.7 fL [facility] Platelets (Bld) [#/Vol] 125 10*3/uL Low 150 - 400 k/uL [facility] RBC (Bld) [#/Vol] 4.84 10*6/uL 4.20 - 6.0 0 m/uL [facility] WBC (Bld) [#/Vol] 12.49 10*3/uL High 3.70 - 11.00 k/uL [facility] Comprehensive metabolic 2000 panelon 10-03-2022 Albumin [Mass/Vol] 4.4 g/dL 3.9 - 4.9 g/dL [facility] ALP [Catalytic activity/Vol] 89 U/L 38 - 113 U/L [facility] ALT [Catalytic activity/Vol] 12 U/L 10 - 54 U/L [facility] Anion gap [Moles/Vol] 7 mmol/L Low 9 - 18 mmol/L [facility] AST [Catalytic activity/Vol] 11 U/L Low 14 - 40 U/L [facility] Bilirubin [Mass/Vol] 0.4 mg/dL 0.2 - 1 .3 mg/dL [facility] Calcium [Mass/Vol] 9.3 mg/dL 8.5 - 10. 2 mg/dL [facility] Chloride [Moles/Vol] 105 mmol/L 97 - 10 5 mmol/L [facility] CO2 [Moles/Vol] 27 mmol/L 22 - 30 mmol/L [facility] Creatinine [Mass/Vol] 1.29 mg/dL High 0.73 - 1.22 mg/dL [facility] Estimated Glomerular Filtration Rate 62 mL/min/1.73m >=60 mL/min/1.73 m [facility] Glucose [Mass/Vol] 108 mg/dL High 74 - 99 mg/dL [facility] Potassium [Moles/Vol] 4.3 mmol/L 3.7 - 5.1 mmol/L [facility] Protein [Mass/Vol] 6.7 g/dL 6.3 - 8.0 g/dL [facility] Sodium [Moles/Vol] 139 mmol/L 136 - 144 mmol/L [facility] Urea nitrogen [Mass/Vol] 36 mg/dL High 9 - 24 mg/dL [facility] GGT Don 10-03-2022 Gamma glutamyl transferase [Catalytic activity/Vol] 35 U/L 10 - 70 U/L [facility] MAGNESIUM Don 10-03-2022 Magnesium [Mass/Vol] 2.2 mg/dL 1.7 - 2 .3 mg/dL [facility] PHOSPHORUS INORGANICon 10-03 Phosphate [Mass/Vol] 3.0 mg/dL 2.7 - 4 .8 mg/dL [facility] CBC W Auto Differential pane l (Bld)on 08-30-2022 Basophils (Bld) [#/Vol] 0.03 10*3/uL <0.11 k/uL [facility] Basophils/100 WBC (Bld) 0.6 % [facility] Differential cell count method Nom (Bld) Auto [facility] Eosinophils (Bld) [#/Vol] 0.15 10*3/uL <0.46 k/uL [facility] Eosinophils/100 WBC (Bld) 2.9 % [facility] Erythrocyte distribution width (RBC) [Ratio] 13.3 % 11.5 - 15.0 % [facility] Hematocrit (Bld) [Volume fraction] 44.1 % 39.0 - 51.0 % [facility] Hemoglobin (Bld) [Mass/Vol] 14.1 g/dL 13.0 - 17.0 g/dL [facility] Immature granulocytes (Bld) [#/Vol] <0.10 k/uL [facility] Immature granulocytes/100 WBC (Bld) 0.4 % [facility] Lymphocytes (Bld) [#/Vol] 0.78 10*3/uL Low 1.00 - 4.00 k/uL [facility] Lymphocytes/100 WBC (Bld) 15.1 % [facility] MCH (RBC) [Entitic mass] 28.6 pg 26.0 - 34.0 pg [facility] MCHC (RBC) [Mass/Vol] 32.0 g/dL 30.5 - 36.0 g/dL [facility] MCV (RBC) [Entitic vol] 89.5 fL 80.0 - 100.0 fL [facility] Monocytes (Bld) [#/Vol] 0.38 10*3/uL <0.87 k/uL [facility] Monocytes/100 WBC (Bld) 7.3 % [facility] Neutrophils (Bld) [#/Vol] 3.82 10*3/uL 1.45 - 7.50 k/uL [facility] Neutrophils/100 WBC (Bld) 73.7 % [facility] Nucleated RBC (Bld) [#/Vol] <0.01 k/uL [facility] Nucleated RBC/100 WBC (Bld) [Ratio] 0.0 /100 WBC [facility] Platelet mean volume (Bld) [Entitic vol] 11.2 fL 9.0 - 12.7 fL [facility] Platelets (Bld) [#/Vol] 109 10*3/uL Low 150 - 400 k/uL [facility] RBC (Bld) [#/Vol] 4.93 10*6/uL 4.20 - 6.0 0 m/uL [facility] WBC (Bld) [#/Vol] 5.18 10*3/uL 3.70 - 11.00 k/uL [facility] CMV DNA DETECTION AND QUANTo n 08-30-2022 CMV DNA JAIME+probe Qn (P) Not detected Not Detected [facility] Comprehensive metabolic 2000 panelon 08-30-2022 Albumin [Mass/Vol] 4.3 g/dL 3.9 - 4.9 g/dL [facility] ALP [Catalytic activity/Vol] 178 U/L High 38 - 113 U/L [facility] ALT [Catalytic activity/Vol] 60 U/L High 10 - 54 U/L [facility] Anion gap [Moles/Vol] 8 mmol/L Low 9 - 18 mmol/L [facility] AST [Catalytic activity/Vol] 46 U/L High 14 - 40 U/L [facility] Bilirubin [Mass/Vol] 0.6 mg/dL 0.2 - 1 .3 mg/dL [facility] Calcium [Mass/Vol] 9.7 mg/dL 8.5 - 10. 2 mg/dL [facility] Chloride [Moles/Vol] 104 mmol/L 97 - 10 5 mmol/L [facility] CO2 [Moles/Vol] 27 mmol/L 22 - 30 mmol/L [facility] Creatinine [Mass/Vol] 1.14 mg/dL 0.73 - 1.22 mg/dL [facility] Estimated Glomerular Filtration Rate 72 mL/min/1.73m >=60 mL/min/1.73 m [facility] Glucose [Mass/Vol] 107 mg/dL High 74 - 99 mg/dL [facility] Potassium [Moles/Vol] 4.7 mmol/L 3.7 - 5.1 mmol/L [facility] Protein [Mass/Vol] 6.9 g/dL 6.3 - 8.0 g/dL [facility] Sodium [Moles/Vol] 139 mmol/L 136 - 144 mmol/L [facility] Urea nitrogen [Mass/Vol] 27 mg/dL High 9 - 24 mg/dL [facility] GGT [facility] 08-30-2022 Gamma glutamyl transferase [Catalytic activity/Vol] 332 U/L High 10 - 70 U/L [facility] MAGNESIUM BLDon 08-30-2022 Magnesium [Mass/Vol] 1.7 mg/dL 1.7 - 2 .3 mg/dL [facility] PHOSPHORUS INORGANICon 08-30 Phosphate [Mass/Vol] 2.2 mg/dL Low 2.7 - 4 .8 mg/dL [facility] TACROLIMUS/FK-506 BLon 08-30 Tacrolimus (Bld) [Mass/Vol] 7.6 ng/mL 5.0 - 20.0 ng/mL [facility] CT ABD/PEL WO IVCONon 2022 [facility] No Panel Informationon 07-[address] [facility] [address] LSPINE WO CONon CT LSPINE [...] by: YSABEL CARPENTER Date: 2022-06-08 14:20 Normal [facility] Covid-19 PCR (CVDTBH)on SARS-CoV-2 (COVID-19) RNA JAIME+probe Ql (Unsp spec) Not detected Normal NOT DETECTED [facility] Comment on above: Result Comment: When diagnostic [...] for this test is supported by the [place] Technician of Health and Human Service's declaration that [...] longer be used). Performed By: #### C [facility] #### [facility] [address] [place] [address] Dr. Angeline Coronado HEMOGLOBIN A1C (POC)on 05-31 HbA1c (Bld) [Mass fraction] 4.7 % 4.2 - 5.6 % [facility] GGT BLDon 05-27-2022 Gamma glutamyl transferase [Catalytic activity/Vol] 106 U/L High 10 - 70 U/L [facility] CBC W Auto Differential pane l (Bld)on 05-26-2022 Basophils (Bld) [#/Vol] 0.08 10*3/uL <0.11 k/uL [facility] Basophils/100 WBC (Bld) 1.1 % [facility] Differential cell count method Nom (Bld) Auto [facility] Eosinophils (Bld) [#/Vol] 0.25 10*3/uL <0.46 k/uL [facility] Eosinophils/100 WBC (Bld) 3.5 % [facility] Erythrocyte distribution width (RBC) [Ratio] 16.6 % High 11.5 - 15.0 % [facility] Hematocrit (Bld) [Volume fraction] 31.9 % Low 39.0 - 51.0 % [facility] Hemoglobin (Bld) [Mass/Vol] 10.3 g/dL Low 13.0 - 17.0 g/dL [facility] Immature granulocytes (Bld) [#/Vol] 0.09 10*3/uL <0.10 k/uL [facility] Immature granulocytes/100 WBC (Bld) 1.3 % [facility] Lymphocytes (Bld) [#/Vol] 0.67 10*3/uL Low 1.00 - 4.00 k/uL [facility] Lymphocytes/100 WBC (Bld) 9.5 % [facility] MCH (RBC) [Entitic mass] 30.3 pg 26.0 - 34.0 pg [facility] MCHC (RBC) [Mass/Vol] 32.3 g/dL 30.5 - 36.0 g/dL [facility] MCV (RBC) [Entitic vol] 93.8 fL 80.0 - 100.0 fL [facility] Monocytes (Bld) [#/Vol] 0.62 10*3/uL <0.87 k/uL [facility] Monocytes/100 WBC (Bld) 8.8 % [facility] Neutrophils (Bld) [#/Vol] 5.35 10*3/uL 1.45 - 7.50 k/uL [facility] Neutrophils/100 WBC (Bld) 75.8 % [facility] Nucleated RBC (Bld) [#/Vol] <0.01 k/uL [facility] Nucleated RBC/100 WBC (Bld) [Ratio] 0.0 /100 WBC [facility] Platelet mean volume (Bld) [Entitic vol] 9.3 fL 9.0 - 12.7 fL [facility] Platelets (Bld) [#/Vol] 241 10*3/uL 150 - 400 k/uL [facility] RBC (Bld) [#/Vol] 3.40 10*6/uL Low 4.20 - 6.0 0 m/uL [facility] WBC (Bld) [#/Vol] 7.06 10*3/uL 3.70 - 11.00 k/uL [facility] Comprehensive metabolic 2000 panelon 05-26-2022 Albumin [Mass/Vol] 3.5 g/dL Low 3.9 - 4.9 g/dL [facility] ALP [Catalytic activity/Vol] 183 U/L High 38 - 113 U/L [facility] ALT [Catalytic activity/Vol] 19 U/L 10 - 54 U/L [facility] Anion gap [Moles/Vol] 10 mmol/L 9 - 18 mmol/L [facility] AST [Catalytic activity/Vol] 18 U/L 14 - 40 U/L [facility] Bilirubin [Mass/Vol] 0.7 mg/dL 0.2 - 1 .3 mg/dL [facility] Calcium [Mass/Vol] 9.1 mg/dL 8.5 - 10. 2 mg/dL [facility] Chloride [Moles/Vol] 102 mmol/L 97 - 10 5 mmol/L [facility] CO2 [Moles/Vol] 25 mmol/L 22 - 30 mmol/L [facility] Creatinine [Mass/Vol] 0.92 mg/dL 0.73 - 1.22 mg/dL [facility] Estimated Glomerular Filtration Rate 93 mL/min/1.73m >=60 mL/min/1.73 m [facility] Glucose [Mass/Vol] 108 mg/dL High 74 - 99 mg/dL [facility] Potassium [Moles/Vol] 4.9 mmol/L 3.7 - 5.1 mmol/L [facility] Protein [Mass/Vol] 6.7 g/dL 6.3 - 8.0 g/dL [facility] Sodium [Moles/Vol] 137 mmol/L 136 - 144 mmol/L [facility] Urea nitrogen [Mass/Vol] 22 mg/dL 9 - 24 mg/dL [facility] MAGNESIUM BLDon 05-26-2022 Magnesium [Mass/Vol] 1.5 mg/dL Low 1.7 - 2 .3 mg/dL [facility] PHOSPHORUS INORGANICon 05-26 Phosphate [Mass/Vol] 2.9 mg/dL 2.7 - 4 .8 mg/dL [facility] TACROLIMUS/FK-506 BLon 05-26 Tacrolimus (Bld) [Mass/Vol] 11.5 ng/mL 5.0 - 20.0 ng/mL [facility] XR TSPINE 3 VIEWSon 05-26-19 XR [...] by: YSABEL CARPENTER Date: 2022-05-26 18:46 Normal [facility] CMV DNA DETECTION AND QUANTo n 2022 CMV DNA JAIME+probe Qn (P) Not detected Not Detected [facility] TACROLIMUS/FK-506 BLon 05-24 Tacrolimus (Bld) [Mass/Vol] 11.6 ng/mL 5.0 - 20.0 ng/mL [facility] CBC W Auto Differential pane l (Bld)on 05-23-2022 Basophils (Bld) [#/Vol] 0.09 10*3/uL <0.11 k/uL [facility] Basophils/100 WBC (Bld) 0.9 % [facility] Differential cell count method Nom (Bld) Auto [facility] Eosinophils (Bld) [#/Vol] 0.26 10*3/uL <0.46 k/uL [facility] Eosinophils/100 WBC (Bld) 2.6 % [facility] Erythrocyte distribution width (RBC) [Ratio] 16.7 % High 11.5 - 15.0 % [facility] Hematocrit (Bld) [Volume fraction] 33.0 % Low 39.0 - 51.0 % [facility] Hemoglobin (Bld) [Mass/Vol] 10.6 g/dL Low 13.0 - 17.0 g/dL [facility] Immature granulocytes (Bld) [#/Vol] 0.07 10*3/uL <0.10 k/uL [facility] Immature granulocytes/100 WBC (Bld) 0.7 % [facility] Lymphocytes (Bld) [#/Vol] 0.89 10*3/uL Low 1.00 - 4.00 k/uL [facility] Lymphocytes/100 WBC (Bld) 9.0 % [facility] MCH (RBC) [Entitic mass] 30.3 pg 26.0 - 34.0 pg [facility] MCHC (RBC) [Mass/Vol] 32.1 g/dL 30.5 - 36.0 g/dL [facility] MCV (RBC) [Entitic vol] 94.3 fL 80.0 - 100.0 fL [facility] Monocytes (Bld) [#/Vol] 0.71 10*3/uL <0.87 k/uL [facility] Monocytes/100 WBC (Bld) 7.2 % [facility] Neutrophils (Bld) [#/Vol] 7.86 10*3/uL High 1.45 - 7.50 k/uL [facility] Neutrophils/100 WBC (Bld) 79.6 % [facility] Nucleated RBC (Bld) [#/Vol] <0.01 k/uL [facility] Nucleated RBC/100 WBC (Bld) [Ratio] 0.0 /100 WBC [facility] Platelet mean volume (Bld) [Entitic vol] 9.9 fL 9.0 - 12.7 fL [facility] Platelets (Bld) [#/Vol] 246 10*3/uL 150 - 400 k/uL [facility] RBC (Bld) [#/Vol] 3.50 10*6/uL Low 4.20 - 6.0 0 m/uL [facility] WBC (Bld) [#/Vol] 9.88 10*3/uL 3.70 - 11.00 k/uL [facility] Comprehensive metabolic 2000 panelon 05-23-2022 Albumin [Mass/Vol] 3.5 g/dL Low 3.9 - 4.9 g/dL [facility] ALP [Catalytic activity/Vol] 156 U/L High 38 - 113 U/L [facility] ALT [Catalytic activity/Vol] 19 U/L 10 - 54 U/L [facility] Anion gap [Moles/Vol] 10 mmol/L 9 - 18 mmol/L [facility] AST [Catalytic activity/Vol] 14 U/L 14 - 40 U/L [facility] Bilirubin [Mass/Vol] 0.7 mg/dL 0.2 - 1 .3 mg/dL [facility] Calcium [Mass/Vol] 9.0 mg/dL 8.5 - 10. 2 mg/dL [facility] Chloride [Moles/Vol] 102 mmol/L 97 - 10 5 mmol/L [facility] CO2 [Moles/Vol] 27 mmol/L 22 - 30 mmol/L [facility] Creatinine [Mass/Vol] 0.79 mg/dL 0.73 - 1.22 mg/dL [facility] Estimated Glomerular Filtration Rate 100 mL/min/1.73m >=60 mL/min/1.73 m [facility] Glucose [Mass/Vol] 102 mg/dL High 74 - 99 mg/dL [facility] Potassium [Moles/Vol] 4.9 mmol/L 3.7 - 5.1 mmol/L [facility] Protein [Mass/Vol] 6.8 g/dL 6.3 - 8.0 g/dL [facility] Sodium [Moles/Vol] 139 mmol/L 136 - 144 mmol/L [facility] Urea nitrogen [Mass/Vol] 17 mg/dL 9 - 24 mg/dL [facility] GGT [facility] 05-23-2022 Gamma glutamyl transferase [Catalytic activity/Vol] 109 U/L High 10 - 70 U/L [facility] MAGNESIUM [facility] 05-23-2022 Magnesium [Mass/Vol] 1.5 mg/dL Low 1.7 - 2 .3 mg/dL [facility] PHOSPHORUS INORGANICon 05-23 Phosphate [Mass/Vol] 2.9 mg/dL 2.7 - 4 .8 mg/dL [facility] CT LIVER W IVCONon 3 [facility] Activated partial thrombopla stin time (aPTT) in platelet poor plasma by coagulation aOrdered By: Dayna Reyes on 04-22-2022 aPTT Coag (PPP) [Time] 34.1 s 25.1-36.5 [facility] - CoagulationOrde red By: Dayna Reyes on 04-22-2022 PT Coag (PPP) [Time] 13.4 s 9.0-12.9 [facility] Platelet poor plasma interna tional normalized ratio (INR) by coagulation assay (relatOrdered By: Dayna Reyes on 04-22-2022 INR Coag (PPP) [Relative time] 1.2 {INR} [facility] Comment on above: INR Therapeutic Rang e [...] 04-22-2022 Platelets (Bld) [#/Vol] 101 10*3/uL 150-450 [facility] US DOPPLER COMPLETEon 2022 [facility] US SCROTUM AND CONTENTSon [facility] CT ABD/PEL WO IVCONon 2021 [facility] BF MANUAL DIFFon 03-23-2022 Diff Total Body Fluid 100 cells counted [facility] Lymph%, BF 70 % High 18 - 36 % [facility] Macro%, BF 9 % Low 64 - 80 % [facility] Meso%, BF 4 % High 0 - 2 % [facility] Canyon%, BF 15 % [facility] Neut%, BF 2 % High 0 - 1 % [facility] ALBUMIN BFLon 03-22-2022 Albumin (Body fld) [Mass/Vol] 1.6 g/dL See Comment g/dL [facility] AMYLASE BFLon 03-22-2022 Amylase (Body fld) [Catalytic activity/Vol] 19 U/L See Comment U/L [facility] BODY FLUID CELL COUNTon 03-04 Clarity (Unsp spec) Slightly Cloudy Abnormal Clear [facility] Clarity (Unsp spec) Clear [facility] RBC Manual cnt (Body fld) [#/Vol] <2,000 /uL [facility] Specimen source Nom (Body fld) ABDOMINAL FLUID. [facility] WBC Manual cnt (Body fld) [#/Vol] 139 /uL <1,000 /uL [facility] Laboratoryon 03-22-2022 Fluid Nom (Body fld) abdominal paracente sis ascites fluid [facility] - Specimen inform ationon 03-22-2022 Color (Body fld) Yellow Yellow [facility] PROTEIN BFLon 03-22-2022 Protein (Body fld) [Mass/Vol] 3.3 g/dL See Comment g/dL [facility] PARACENTESIS (POC) DDI US E ONLYon 03-22-2022 [facility] ASCITES SURVEYon 02-24-20 US ASCITES SURVEY * * *Final Report* * * DATE OF EXAM: Feb 23 2022 1:08PM [facility] 1016 - ASCITES SURVEY / PROCEDURE REASON: multiple diagnoses * * * * Physician Interpretation * * * * EXAMINATION: US ASCITES SURVEY Clinical history: 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) RESULT: A small to moderate amount of homogeneous ascites is seen IMPRESSION: Small to moderate amount of ascites [employer] Agent: JADE Transcribe Date/Time: Feb 23 2022 1:28P Dictated by : LORAINE POWELL MD This examination was interpreted and the report reviewed and electronically signed by: LORAINE POWELL MD on Feb 23 2022 1:28PM EST [id number] Normal [facility] US ASCITES SURVEYon 02-11-[address] [facility] [address] CHEST WO IVCONon 12-30-19 [facility] US ASCITES SURVEYon 12-23-19 [facility] US ABD LIVER VASCULARon 09-0 [facility] US DOPPLER COMPLETEon 2021 [facility] TYPE AND SCREEN,30 DAYon ABO O [facility] HIstorical Ab Scr Status Negative [facility] Rh Nom (Bld) Positive [facility] ACTIVATED PTTon 11-11-2021 aPTT Coag (PPP) [Time] 30.1 s 23.0 - 32.4 sec [facility] CBC W Auto Differential pane l (Bld)on 11-11-2021 Abs Immature Gran 0.03 k/uL <0.10 k/uL [facility] Basophils (Bld) [#/Vol] 0.03 10*3/uL <0.11 k/uL [facility] Basophils/100 WBC (Bld) 0.5 % [facility] Differential cell count method Nom (Bld) Auto [facility] Eosinophils (Bld) [#/Vol] 0.14 10*3/uL <0.46 k/uL [facility] Eosinophils/100 WBC (Bld) 2.3 % [facility] Erythrocyte distribution width (RBC) [Ratio] 15.7 % High 11.5 - 15.0 % [facility] Hematocrit (Bld) [Volume fraction] 46.1 % 39.0 - 51.0 % [facility] Hemoglobin (Bld) [Mass/Vol] 14.8 g/dL 13.0 - 17.0 g/dL [facility] Immature Gran % 0.5 % [facility] Lymphocytes (Bld) [#/Vol] 0.94 10*3/uL Low 1.00 - 4.00 k/uL [facility] Lymphocytes/100 WBC (Bld) 15.7 % [facility] MCH (RBC) [Entitic mass] 31.1 pg 26.0 - 34.0 pg [facility] MCHC (RBC) [Mass/Vol] 32.1 g/dL 30.5 - 36.0 g/dL [facility] MCV (RBC) [Entitic vol] 96.8 fL 80.0 - 100.0 fL [facility] Monocytes (Bld) [#/Vol] 0.42 10*3/uL <0.87 k/uL [facility] Monocytes/100 WBC (Bld) 7.0 % [facility] Neutrophils (Bld) [#/Vol] 4.42 10*3/uL 1.45 - 7.50 k/uL [facility] Neutrophils/100 WBC (Bld) 74.0 % [facility] Nucleated RBC (Bld) [#/Vol] <0.01 k/uL [facility] Nucleated RBC/100 WBC (Bld) [Ratio] 0.0 /100 WBC [facility] Platelet mean volume (Bld) [Entitic vol] [facility] Platelets (Bld) [#/Vol] 18 10*3/uL Low 150 - 400 k/uL [facility] RBC (Bld) [#/Vol] 4.76 10*6/uL 4.20 - 6.0 0 m/uL [facility] WBC (Bld) [#/Vol] 5.98 10*3/uL 3.70 - 11.00 k/uL [facility] Comprehensive metabolic 2000 panelon 11-11-2021 Albumin [Mass/Vol] 2.8 g/dL Low 3.9 - 4.9 g/dL [facility] ALP [Catalytic activity/Vol] 235 U/L High 38 - 113 U/L [facility] ALT [Catalytic activity/Vol] 27 U/L 10 - 54 U/L [facility] Anion gap [Moles/Vol] 7 mmol/L Low 9 - 18 mmol/L [facility] AST [Catalytic activity/Vol] 42 U/L High 14 - 40 U/L [facility] Bilirubin [Mass/Vol] 1.9 mg/dL High 0.2 - 1 .3 mg/dL [facility] Calcium [Mass/Vol] 9.1 mg/dL 8.5 - 10. 2 mg/dL [facility] Chloride [Moles/Vol] 102 mmol/L 97 - 10 5 mmol/L [facility] CO2 [Moles/Vol] 26 mmol/L 22 - 30 mmol/L [facility] Creatinine [Mass/Vol] 0.82 mg/dL 0.73 - 1.22 mg/dL [facility] Estimated Glomerular Filtration Rate 99 mL/min/1.73m >=60 mL/min/1.73 m [facility] Glucose [Mass/Vol] 100 mg/dL High 74 - 99 mg/dL [facility] Potassium [Moles/Vol] 5.3 mmol/L High 3.7 - 5.1 mmol/L [facility] Protein [Mass/Vol] 7.5 g/dL 6.3 - 8.0 g/dL [facility] Sodium [Moles/Vol] 135 mmol/L Low 136 - 144 mmol/L [facility] Urea nitrogen [Mass/Vol] 15 mg/dL 9 - 24 mg/dL [facility] PT panel Coag (PPP)on 2021 INR Coag (PPP) [Relative time] 1.2 {INR} 0.9 - 1.3 [facility] PT Coag (PPP) [Time] 12.1 s 9.7 - 1 3.0 sec [facility] Covid-19 PCR (CVDTBH)on 10-02 SARS-CoV-2 (COVID-19) RNA JAIME+probe Ql (Unsp spec) Not detected Normal NOT DETECTED [facility] Comment on above: Result Comment: This test is not yet approved or cleared by the [place] FDA. When there are no FDA-approved or cleared tests available, and other criteria are met, FDA can make tests available under an emergency access mechanism called an Emergency Use Authorization (EUA). The EUA for this test is supported by the [place] Technician of Health and Human Service's (HHS's) declaration [...] consistent with SARS-CoV-2. Performed By: #### C [facility] #### [facility] [address] [place] [address] Dr. Angeline Coronado LVEF STRESS ECHO DOBUTAMINEo n 09-13-2021 LV Ejection Fraction 55 % [facility] STRESS ECHO DOBUTAMINEon [facility] No Panel Informationon 07-13 [facility] BILIRUBIN DIRECT BLDon 07-07 Bilirubin.conjugated [Mass/Vol] 0.4 mg/dL High <0.2 mg/dL [facility] CBC W Auto Differential pane l (Bld)on 07-07-2021 Abs Immature Gran <0.03 <0.10 k/uL [facility] Basophils (Bld) [#/Vol] 0.03 10*3/uL <0.11 k/uL [facility] Basophils/100 WBC (Bld) 0.5 % [facility] Differential cell count method Nom (Bld) Auto [facility] Eosinophils (Bld) [#/Vol] 0.18 10*3/uL <0.46 k/uL [facility] Eosinophils/100 WBC (Bld) 3.2 % [facility] Erythrocyte distribution width (RBC) [Ratio] 14.3 % 11.5 - 15.0 % [facility] Hematocrit (Bld) [Volume fraction] 50.0 % 39.0 - 51.0 % [facility] Hemoglobin (Bld) [Mass/Vol] 16.1 g/dL 13.0 - 17.0 g/dL [facility] Immature Gran % 0.4 % [facility] Lymphocytes (Bld) [#/Vol] 0.95 10*3/uL Low 1.00 - 4.00 k/uL [facility] Lymphocytes/100 WBC (Bld) 17.0 % [facility] MCH (RBC) [Entitic mass] 30.9 pg 26.0 - 34.0 pg [facility] MCHC (RBC) [Mass/Vol] 32.2 g/dL 30.5 - 36.0 g/dL [facility] MCV (RBC) [Entitic vol] 96.0 fL 80.0 - 100.0 fL [facility] Monocytes (Bld) [#/Vol] 0.52 10*3/uL <0.87 k/uL [facility] Monocytes/100 WBC (Bld) 9.3 % [facility] Neutrophils (Bld) [#/Vol] 3.89 10*3/uL 1.45 - 7.50 k/uL [facility] Neutrophils/100 WBC (Bld) 69.6 % [facility] Nucleated RBC (Bld) [#/Vol] 10*3/uL <0.01 k/uL [facility] Nucleated RBC/100 WBC (Bld) [Ratio] 0.0 /100 WBC [facility] Platelet mean volume (Bld) [Entitic vol] 11.3 fL 9.0 - 12.7 fL [facility] Platelets (Bld) [#/Vol] 99 10*3/uL Low 150 - 400 k/uL [facility] RBC (Bld) [#/Vol] 5.21 10*6/uL 4.20 - 6.0 0 m/uL [facility] WBC (Bld) [#/Vol] 5.59 10*3/uL 3.70 - 11.00 k/uL [facility] Comprehensive metabolic 2000 panelon 07-07-2021 Albumin [Mass/Vol] 3.8 g/dL Low 3.9 - 4.9 g/dL [facility] ALP [Catalytic activity/Vol] 215 U/L High 38 - 113 U/L [facility] ALT [Catalytic activity/Vol] 12 U/L 10 - 54 U/L [facility] Anion gap [Moles/Vol] 12 mmol/L 9 - 18 mmol/L [facility] AST [Catalytic activity/Vol] 34 U/L 14 - 40 U/L [facility] Bilirubin [Mass/Vol] 1.6 mg/dL High 0.2 - 1 .3 mg/dL [facility] Calcium [Mass/Vol] 9.6 mg/dL 8.5 - 10. 2 mg/dL [facility] Chloride [Moles/Vol] 103 mmol/L 97 - 10 5 mmol/L [facility] CO2 [Moles/Vol] 24 mmol/L 22 - 30 mmol/L [facility] Creatinine [Mass/Vol] 0.87 mg/dL 0.73 - 1.22 mg/dL [facility] Estimated Glomerular Filtration Rate 98 mL/min/1.73m >=60 mL/min/1.73 m [facility] Glucose [Mass/Vol] 94 mg/dL 74 - 99 mg/dL [facility] Potassium [Moles/Vol] 4.8 mmol/L 3.7 - 5.1 mmol/L [facility] Protein [Mass/Vol] 8.7 g/dL High 6.3 - 8.0 g/dL [facility] Sodium [Moles/Vol] 139 mmol/L 136 - 144 mmol/L [facility] Urea nitrogen [Mass/Vol] 13 mg/dL 9 - 24 mg/dL [facility] PT panel Coag (PPP)on 2021 INR Coag (PPP) [Relative time] 1.1 {INR} 0.9 - 1.3 [facility] PT Coag (PPP) [Time] 11.4 s 9.7 - 1 3.0 sec [facility] No Panel Informationon 06-[address] [facility] [address] ABD/PEL WO IVCONon 2021 [facility] Coding Summary.on 04-12-2021 Coding Summary. [id number] Gh0bWw+ PGhlYWQ+DG3OTELrE33dpOIckU6 DX0hMTK4SPWVJEIOUKN4QQW2scU R5DHqpZ7BbrlXj VjmgwVWoCE24JYb3BTG5eDriUZm ajI2vkUMoI8s6SsJrPK45hH52CU ghUKLdUqX7EaQffzttaCOs L4haMgAkzRXtSxn+PHRhYmxlIHd pHIBvHKkvIIPnOxUfgXfmZV4cQc 9yZGVyLWNvbGxhcHNlOiBj e1asOHIbHJnmCY8ntMxqQ1TyeNQ 9SDGzk8q6Ou36tOO+LYMcAVQ1rV fsISuae510RkVrq4znQGC8 lFJuAMtmKJG0D84mt2Y5HPWeOQZ vTBV6sJN8pI0ooHaxlwuxA9SsiQ UrAuO7RIZ1hAPxeE2fjYnf yvgmuT0lRle+H81WYO8DKGMDXE1 RWcs1P6OuOvwzyII+FZ89UMVxWT 68eXSjqFQlh1rjaYo7KnLt HDSmVCL8yZegLVjel3EcFIXcE55 dsOYjm3F5GGBtzDwxnNWmSnQxlU W3uX7eYTsjrbsdy2deuiln Wqzcf5udlh26bE31O60fQDpbHMW zYWA4ISOvZUFydZkdrv1nvV6tPv 8+HFrql6uho8lciGk1YjJw NJDillOitQimIWJ4t9PsBy99H5U fzQqdw2HdUvx3kr14uHJsn8D7dC D9KAnyPMWoqK8vBXbfXzL8 BAFsNwIthJ54jKOtGNphYq4acUv htCnoZN3nESBzqojcYFDlpC5sUD EyzDAvaDqdVG2nVLLjasky h283DuBcWHR9WEMwtXWqB5WlsX3 gDlFsIRQyANEhK7IblLUxNQteT7 07SQmvLiF5SDCwliJuP5Ka KHVgcErpNrY1m4L9Kg4So6Xbugf hVJG4JOqbHLLlOtWoMyTrEnN5G7 JmPsr0OAAfeYcfWK9dO9Vp LWExoupscdqaeNS9QLVoLULwbU4 5aAUgCLbcVg6tt2B9y091LUFkZK NksW45Bq6wyFwyUGYstRUN gT8wygrqf3ixgexbTmWoQJNzPCh 1QHm1SRBooRqnPwDdXYD1SuS2UP F6bHMokS2apTkbubbmoA7r Oyc+Y43oyU8jPGU1UFP3dtxcWLO pmzTcPA67PM50P5FxHckwxCZvrJ U+VTDvefIldEcnWJ4zChPx p6nyo1QrGQxgD0KrTYIpRCqqDnx 4FBMoMFQ6dCD4qW5rNOJxOJdkr2 L1wXZ5P9PfqqOesk1ao0vb LKGxZZkrZ13ekRTbz8T9YTAgmKF 5OFJiyGyfLgDmnR99Ijv+PGNvbG soc1HeRrtja0qoa6vygJe6 XjZjRAYlqbVdoEafVYA2b8RePt9 8B16hJBugABBhKLLxFPLyHPJgrX tqda4lzA0uDu8+PGNvbCB3 oZA6fU5wJTAcTmG0GEpeE182LfD mbJGjRsujf4tzu0tycAz6WpZuXN CdznEqjWznYYI6q1MfGb26 M48eEYktCTIfLELzZNPiYKMosFz hdk0hiC5uXs0+OA7mz5tykd18hA 48dHI+FZSyTHV6qHrsVDuj VIInzX9uWXmpSsB2WQVdLxJnkJ3 1nBUqIKriKy3vvQjgxGpdGY8cQF Oyqgkbs446PxRdv4wuYIFc pIHvRFfwGUI1Z63gx4X9EDDgZQX eLYS1lUD6dE2bkNdlcyichKUpfH csbaBmmIuwBGraMJswT939 IHRvcDsnPlBhdGllbnQgTmFtZTo 6V9KzKcg8OUWqwBdfZC5zcBVmZD pcWr5hsJdckMjdOC1bGBSv wvtjg814GeGbr0toLJKsvIZlAAs tITX9T37ud8O8CPYyNGXgVCY9aM S1lZ8liKvucxjudCPkiTvv pfRhsCgxGLpgCYgfD870VLBmfZb sAxRdpyCyNRJezJJ2FW48AZ84bS Oyu8B3jOQ2X8PdZMRldjen zlgxfSW6HAApLPNnhD26Mb8bzPt eMu8tWHJrIXK9LEZqtQOwV4WtaK 9rHqDeZJOdSSOmE0KizWUq BCwnP206YWlzMzF8XHHwszSaH0I sFMFgiKniUpO9a9K9Am8IM7L0UG 10DG19xCDtd9H0lIT9A6Ts TFHkhtovvgdmiNN9MCGjKYIthY8 7Zy5hpRjlFu7pXTGlKEE4TTDabO MnX8LhyM3kHiTkEXVdILCn Y7AaoQNgHBkbO611PUcmJfF5SVA wvjRaP4QhDPVlnMbsDhS0t1I2Ib 8BCNt3WB09LF70dDXdc6T8 fKR7X6OoKNEgjeqvacxhlCZ0EAQ lUSYshJ02Jy4saRraLa3uVIFnBR G7ZTDdbBHoX4DahI9lEtPr SJYsAEZcO1VodRRwFQwwJ093WGg hVuK5SIUzkjMlM5EeUTVkwIzeUb N6r6D8As4HRLWxBP45GYH2 oMP6CV20JO48T8UpYigqdIVkpSL +PHRhYmxlIHdpZHRoPScxMDAlJy VpgToeDP5gSs7oWYZvACNz sDdotXRcTdZup5clGPHaEEuuUO9 nwSoeP3FinSP0YPXew3h9La49C2 4pR6BtsLI+EIGklIM4nWJ4 iJ0tDpHbKuJ0MQsmQ360LjFvuJH iUoddc3lju8lesWa9WfB0LYZinm OqmJnfEQR9d7ZeHa48H13u IHdpZHRoPSIxNSUiIHZhbGlnbj0 ayW4dVo2+NAGvbSD8oOD9kU0nJp XlVmM9QArxO744BoUvgHXz Icphc4btz8qreFx3IjVrRZSvdtZ dpMsmKRX3a6QnPe26D6DhqXncc1 UuZkh7wp13mIUfz9B4uMI5 H0OyKOVwrjukkSGmaUlzMB8eRXZ ztmxxFZAegD2rKXGgX4v2LkLuEu Q2ZEvkI4TfcgS8ZUBmeMUr PFesXXF6O68hk3W2DGIgZVBhSWQ 2pOL9dT4xcEkuwjreyLNzbSkmye HkuVaoZLcxXDylV400PWVf sIynBJDldT3iSCKboKSemKhoMD4 jMTCajbdxYiROVa7YGVeqRWRFQX lLXYW0A0YoBco2LYYbgQni IE7kzGWvIEanKo8foMtmfTpjVG8 yMTVhvliqTAXpfG6rNNMgdBAkpX xeVP4qONPypqzdk577FzRh TQW2HJOfmUMqW4WrfX9bFdVhNYF kIERaV4IcmHHmRXxcJ597ZLriEe J0THWfyqHiF7YuLONsyUku IfK0k7O7Ad9rDx3mQN9fAZCcXC4 2II56oVNva9Y7oKG8T7QbDOKbtf isfohncOK4AICqSEFhkQ51 nRQrVDxuKp8hb5M7a918YVYtAHX xvT53Bb4qbAxqTAGxwROJvA5rmo blu6muxeuqKbErWRAsNQr8 IRx3PTQetYpoTiSwYYC9BzN3BNX 8zVNcwI4jrWtthjfvaQ4mToa+Nj AjTLSdngZ6J4PaKfr3WYMm kRvlPM0sdEMgEBtsVf4npTswpVn bKB0zEZUxrzzwEBLbcV6bUFGeaC VzuSehPI2bMVIvpileq361 StJmBJG7PNEjbVGgA5MgiW0oBwE jHXUxDDSwM1MjzBKiZVyxN633IE zpWfE3ETPdydOuP1NiTQBo nHleRmC6c5S5Hs0BEKqoFG65RK8 8hGFzd2J7xVY6L4QxHCBebuybxa yznAN4WWObITPlgE62bDQe PWyqKx5eu7Z1k548JKEpVFNvtQ8 3Cn7llJecSBBprOMVaU9kobttt2 zkjaepEiTjAXTgUGv7VPu0 XZBriOzeUtIqGLW8XoX4OLT7dDW mmS2pmDtnmknnoB3uZtn+UmVjdX GjfL1lXB61VM12I4BcKefp dGFibGU+PHRhYmxlIHdpZHRoPSc rHNZaWtWdmXtqJJ6jOr2hXANhPU SxhZqefDHpDvLim3ihVSGm KSbwVX7wxQedT3OleVH8YLGcr8x 6Xl10D33gT1GvlQB+FKIziXB7jA B2yW2tYmSkEmU5OAtpC741 QvVffWYaVshtl1bzk3mobFw7IsJ eBUOgoqBmwNlnQTG1s0GlZm90U0 9sIHdpZHRoPSIyMCUiIHZh hPywuu0rxS7fEc0+PSKqeBM1wXE 6xW7sUzKhUfU4LMqyE623FpDvhT NmPberZ83mK9TreVN+PHRy Brz1STAqaFdlEF8zmCTsSTawAg9 fIRH2WzAaWaHoAXieS6MlZECcuh pehcaopPW2YQWvXKGldN52 Dj7jjGyuZd7hOLRtNTM2LZFhmRM iO6YyvS0nBtEjPBKxEELqQ0YcxO GpOKspH748MIrhLiT1YVMg kwUrB8AcSKNcqXymZlT8r9F5Fc8 KyOxcnPQaKZ9sXdMlHTd4F2TsJw d1LFNwgOomFF4ozEWhEPjf Ya9zcCslfCjfHV2hOOVccechs06 5WcHgj5rlPSQtwYEaRAorAHU2P3 7ba7A9JHBpNRZtLWZ5mHJ5 kK8dpWthvihipOUmeIjwkmEyjOj wKEwwJDwgB825QVKukJtwOrEDHy e5Z0BsRdq1ZPWmbWosED0q zJNtZQpwZa4qrPtzxFrkZO6bPYE eghpbi828FhSel2bmUORdvJXzUD zsIYC5F06kc4J8YMXiBPQx RYW9xPC3zR6duRwglgouiTSwtYk jwqQllTlyRXypVXodV042CCBjrF taKt0FLit7N8BvNao9LCBw kErbOK8gnZTrHZtoHu6hcOprnVz gNF1jFUCoxpdsv442ZhTjw0scFK WvyFAeZYffWBQ3Z95kv8T2 SVFnLCQxOEJ4yVH5jG8tfGvvnii gbGVmdDsgdmVydGljYWwtYWxpZ2 46IHRvcDsnPlBheWVyOjwv dGQ+JV31ac25O6DuFacoXjj7KQH oNGD7pFJ1bO9nNSQhRXbyt8I2gE G3A4CaamPwrv2hu4qeGYIo ZTog (more content not included)... Normal [facility] Consent for Treatmenton Consent for Treatment [id number]#[id number]:127 Normal [facility] Physician Orderon 04-05-2021 Physician Order [id number]#1.00CD:127 Normal [facility] Rapid COVID Antigen ([facility])on 04-05-2021 Rapid COV Int NEG Ctl [place] Normal [facility] Comment on above: Performed By: #### 2 [id number] #### [facility] [address] [place] [address] Rapid COV Int POS Ctl Pass Normal [facility] Comment on above: Performed By: #### 2 [id number] #### [facility] [address] [place] [address] SARS-CoV+SARS-CoV-2 (COVID-19) Ag IA.rapid Ql (Resp) Not detected Normal Not Detected [facility] Comment on above: Result Comment: The [employer]? System for Rapid Detection of [...] or revoked sooner. Performed By: #### 2 [id number] #### [facility] [address] [place] [address] ADMITTED TO INTENSIVE CARE UNIT FOR CONDITION OF INTEREST:FIND:PT: Unknown Normal [facility] Comment on above: Performed By: #### 2 [id number] #### [facility] [address] [place] [address] EMPLOYED IN A HEALTHCARE SETTING:FIND:PT: Unknown Normal [facility] Comment on above: Performed By: #### 2 [id number] #### [facility] [address] [place] [address] FIRST TEST FOR CONDITION OF INTEREST:FIND:PT: Unknown Normal [facility] Comment on above: Performed By: #### 2 [id number] #### [facility] [address] [place] [address] HAS SYMPTOMS RELATED TO CONDITION OF INTEREST:FIND:PT: Unknown Normal [facility] Comment on above: Performed By: #### 2 [id number] #### [facility] [address] [place] [address] HOSPITALIZED FOR CONDITION OF INTEREST:FIND:PT: Unknown Normal [facility] Comment on above: Performed By: #### 2 [id number] #### [facility] [address] [place] [address] STATUS:FIND:PT: Unknown Normal [facility] Comment on above: Performed By: #### 2 [id number] #### [facility] [address] [place] [address] RESIDES IN A [facility] CARE SETTING:FIND:PT: Unknown Normal [facility] Comment on above: Performed By: #### 2 [id number] #### [facility] [address] [place] [address] BASIC MET PANELon 12-26-2017 Anion gap 3 molar conc 15 mmol/L Normal 6-18 [facility] Comment on above: Performed By: #### L 500.15472, L500.63774 ####Test performed at: [address] [address] Calcium mass conc 8.2 mg/dL Low 8.5-10.1 [facility] Comment on above: Performed By: #### L 500.04399, L500.45418 ####Test performed at: [address] [address] Chloride molar conc 106 mmol/L Normal 98-107 [facility] Comment on above: Performed By: #### L 500.40974, L500.60449 ####Test performed at: [address] [address] CO2 molar conc 22 mmol/L Normal 21-32 [facility] Comment on above: Performed By: #### L 500.74439, L500.18178 ####Test performed at: [address] [address] Creatinine mass conc 0.864 mg/dL Normal 0.700-1.300 [facility] Comment on above: Performed By: #### L 500.76011, L500.56920 ####Test performed at: [address] [address] Glucose mass conc 204 mg/dL High 74-106 [facility] Comment on above: Performed By: #### L 500.01643, L500.61091 ####Test performed at: [place] [address] [place], [place] [id number] OSM 294 mosm/kg Normal 270-300 [facility] Comment on above: Performed By: #### L 500.88649, L500.39364 ####Test performed at: [place] [address] [place], [place] [address] Potassium molar conc 3.8 mmol/L Normal 3.5-5.1 [facility] Comment on above: Performed By: #### L 500.90703, L500.30274 ####Test performed at: [place] [id number] Sodium molar conc 139 mmol/L Normal 136-145 [facility] Comment on above: Performed By: #### L 500.03990, L500.18777 ####Test performed at: [place] [id number] Urea nitrogen mass conc 13 mg/dL Normal 7-18 [facility] Comment on above: Performed By: #### L 500.01008, L500.47730 ####Test performed at: [place] [address] CONSULTATION REPORTon 2017 CONSULTATION REPORT NAME: SOSA AGUILAR [facility]#: [id number]: Aleks Sharma, MDDATE OF CONSULTATION: 12/26/2017CONSULTATIONREBETI Billy [...] male who is awake, alert, oriented, in nodistress.[facility] PT NAME: JORDAN AGUILAR#: [id number] [place] [address] ACCT: [id number]: 59CONSULTATIONVITAL SIGNS: He is currently afebrile with [...] to see this patient in consultation. KODY YEUNG/PATRICK/[id number] : 12/26/2017 17:36:21 CC: Aleks Sharma MDFax: E/S: Aleks Sharma MD12/30/17 0918Electronically SignedSH[facility] [facility] PT NAME: SANDRA AGUILAR#: [id number] [place] [address] ACCT: [id number]: 59CONSULTATION Normal [facility] GFR ESTIMATEon 12-26-2017 IF AMER > 60 Normal > 60 [facility] Comment on above: Result Comment: eGFR (Estimated GFR) Units of measure:mL/min/1.73 meters sq.*CALCULATION REVISED 01/20/2015;IDMS-traceable MDRD equationeGFR is derived from the reexpressed MDRD Study equationusing the following parameters: serum creatinine, age,gender and race. An eGFR<60 mL/min/1.73m2 for >3 monthsis consistent with chronic kidney disease. Refer to KDOQIguidelines for clinical interpretation. Performed By: #### L 500.56990, L500.60330 ####Test performed at: [place] [address] IF non-AFR AMER > 60 Normal > 60 [facility] Comment on above: Performed By: #### L 500.23002, L500.60647 ####Test performed at: [place] [address] HGB AND HCTon 12-26-2017 Hematocrit Auto Volume Fraction (Bld) 31.8 % Low 39.0-55.0 [facility] Comment on above: Performed By: #### L 200.70992 ####Test performed at: [address] [address] Hemoglobin mass conc (Bld) 10.3 g/dL Low 14.0-16.5 [facility] Comment on above: Result Comment: Delt a: 12.6 on 12/19/17-1437PATIENT RECEIVED IV FLUIDS Performed By: #### L 200.32497 ####Test performed at: [place] [id number] OPERATIVE REPORTon 8 OPERATIVE REPORT NAME: SOSA AGUILAR [facility]#: [id number]: Aleks Jacobson, MDDATE OF SURGERY: 12/25/2017OPERATIVE REPORTPREOPERATIVE [...] in AP and lateral planes. The right S0tisbsx was cleared of soft tissue and directly [...] stab incision. The fascia, subcutaneous [facility], [facility] LAURENJORDAN#: [id number] [place] [address] ACCT: [id number]: 59OPERATIVE REPORTskin closed in the usual manner. Dressings were applied. The patient wasturned supine, awakened, taken to recovery room in excellent condition. Therewere no complications. TATUM DILLON/PATRICK/[id number] E/S: Aleks Jacobson MD01/04/18 1520Electronically SignedST. [facility]: JORDAN AGUILAR#: [id number] [place] [address] ACCT: [id number]: 59OPERATIVE REPORT Normal [facility] LUMBAR SPINE 2 OR 3 VIEWSon 12-22-2017 LUMBAR SPINE 2 OR 3 VIEWS Exam: Fluoroscopy lumbar spineClinical History: RIGHT L5 LAMINOTOMY, REVISION RIGHT L5 DISCECTOMYComparison: None.Findings: Intraoperative fluoroscopic images demonstrate surgicalinstruments posterior L5-S1.Impression:As aboveDictated: 12/26/17 0958REPORT SIGNATURE ON FILE12/26/17(0958) Reported By: SPENCER POTTSSigned By: SPENCER POTTS Normal [facility] BASIC MET PANELon 12-19-2017 Anion gap 3 molar conc 12 mmol/L Normal 09-18 [facility] Comment on above: Order Comment: CBN: YESCampus: MAIN Performed By: #### L 500.95859, L500.01612 ####Test performed at: [address] [address] Calcium mass conc 8.7 mg/dL Normal 8.5-10.1 [facility] Comment on above: Order Comment: CBN: YESCampus: MAIN Performed By: #### L 500.54260, L500.84228 ####Test performed at: [address] [address] Chloride molar conc 107 mmol/L Normal 98-107 [facility] Comment on above: Order Comment: CBN: YESCampus: MAIN Performed By: #### L 500.23229, L500.01467 ####Test performed at: [address] [address] CO2 molar conc 26 mmol/L Normal 21-32 [facility] Comment on above: Order Comment: CBN: YESCampus: MAIN Performed By: #### L 500.40146, L500.59836 ####Test performed at: [address] [address] Creatinine mass conc 0.747 mg/dL Normal 0.700-1.300 [facility] Comment on above: Order Comment: CBN: YESCampus: MAIN Performed By: #### L 500.79237, L500.22242 ####Test performed at: [place] [id number] Glucose mass conc 82 mg/dL Normal 74-106 [facility] Comment on above: Order Comment: CBN: YESCampus: MAIN Performed By: #### L 500.74102, L500.12286 ####Test performed at: [place] [id number] OSM 290 mosm/kg Normal 270-300 [facility] Comment on above: Order Comment: CBN: YESCampus: MAIN Performed By: #### L 500.62720, L500.98887 ####Test performed at: [address] [address] Potassium molar conc 4.2 mmol/L Normal 3.5-5.1 [facility] Comment on above: Order Comment: CBN: YESCampus: MAIN Performed By: #### L 500.34630, L500.60424 ####Test performed at: [address] [address] Sodium molar conc 141 mmol/L Normal 136-145 [facility] Comment on above: Order Comment: CBN: YESCampus: MAIN Performed By: #### L 500.67588, L500.20504 ####Test performed at: [address] [address] Urea nitrogen mass conc 9 mg/dL Normal 7-18 [facility] Comment on above: Order Comment: CBN: YESCampus: MAIN Performed By: #### L 500.08431, L500.14657 ####Test performed at: [address] [address] CBC W/DIFFon 12-19-2017 BASO ABS 0.0 K/uL Normal 0.0-0.2 [facility] Comment on above: Order Comment: CBN: YESCampus: MAIN Performed By: #### L 200.35552 ####Test performed at: [address] [address] Basophils/100 WBC Auto (Bld) 0.8 % Normal [facility] Comment on above: Order Comment: CBN: YESCampus: MAIN Performed By: #### L 200.38502 ####Test performed at: [address] [address] EOS ABS 0.1 K/uL Normal 0.0-0.5 [facility] Comment on above: Order Comment: CBN: YESCampus: MAIN Performed By: #### L 200.48430 ####Test performed at: [address] [address] Eosinophils/100 WBC Auto (Bld) 2.4 % Normal [facility] Comment on above: Order Comment: CBN: YESCampus: MAIN Performed By: #### L 200.21910 ####Test performed at: [address] [address] IG % 0.4 % Normal [facility] Comment on above: Order Comment: CBN: YESCampus: MAIN Performed By: #### L 200.68382 ####Test performed at: [address] [address] IG ABS 0.02 K/uL Normal 0-0.05 [facility] Comment on above: Order Comment: CBN: YESCampus: MAIN Performed By: #### L 200.51848 ####Test performed at: [address] [address] Lymphocytes Auto #/vol (Bld) 1.3 10*3/uL Normal 1.2-3.5 [facility] Comment on above: Order Comment: CBN: YESCampus: MAIN Performed By: #### L 200.89126 ####Test performed at: [address] [address] Lymphocytes/100 WBC Auto (Bld) 26.9 % Normal [facility] Comment on above: Order Comment: CBN: YESCampus: MAIN Performed By: #### L 200.76653 ####Test performed at: [address] [address] MONO ABS 0.3 K/uL Normal 0.0-1.0 [facility] Comment on above: Order Comment: CBN: YESCampus: MAIN Performed By: #### L 200.28750 ####Test performed at: [address] [address] Monocytes/100 WBC Auto (Bld) 6.9 % Normal [facility] Comment on above: Order Comment: CBN: YESCampus: MAIN Performed By: #### L 200.47859 ####Test performed at: [address] [address] NEUTROPHIL ABS 3.1 K/uL Normal 1.4-6.6 [facility] Comment on above: Order Comment: CBN: YESCampus: MAIN Performed By: #### L 200.88960 ####Test performed at: [address] [address] Neutrophils/100 WBC Auto (Bld) 62.6 % Normal [facility] Comment on above: Order Comment: CBN: YESCampus: MAIN Performed By: #### L 200.05320 ####Test performed at: [address] [address] Erythrocyte distribution width Auto Ratio (RBC) 14.6 % High 11.5-14.5 [facility] Comment on above: Order Comment: CBN: YESCampus: MAIN Performed By: #### L 200.10362 ####Test performed at: [address] [address] Hematocrit Auto Volume Fraction (Bld) 39.1 % Normal 39.0-55.0 [facility] Comment on above: Order Comment: CBN: YESCampus: MAIN Performed By: #### L 200.44541 ####Test performed at: [place] [address] Hemoglobin mass conc (Bld) 12.6 g/dL Low 14.0-16.5 [facility] Comment on above: Order Comment: CBN: YESCampus: MAIN Performed By: #### L 200.54943 ####Test performed at: [place] [id number] MCH Auto Entitic mass (RBC) 29.9 pg Normal 25.4-34.6 [facility] Comment on above: Order Comment: CBN: YESCampus: MAIN Performed By: #### L 200.89149 ####Test performed at: [address] [address] MCHC Auto mass conc (RBC) 32.2 g/dL Normal 31.5-36.5 [facility] Comment on above: Order Comment: CBN: YESCampus: MAIN Performed By: #### L 200.14605 ####Test performed at: [address] [address] MCV Auto Entitic volume (RBC) 92.9 fL Normal 80.0-100.0 [facility] Comment on above: Order Comment: CBN: YESCampus: MAIN Performed By: #### L 200.17731 ####Test performed at: [address], [place] [address] Nucleated RBC #/vol (Bld) 0.000 10*3/uL Normal 0-0.012 [facility] Comment on above: Order Comment: CBN: YESCampus: MAIN Performed By: #### L 200.97515 ####Test performed at: [address] [address] Nucleated RBC/100 WBC Ratio (Bld) 0.0 /100 WBC Normal 0-0.2 [facility] Comment on above: Order Comment: CBN: YESCampus: MAIN Performed By: #### L 200.14593 ####Test performed at: [address] [address] Platelet mean volume Auto Entitic volume (Bld) 10.4 fL Normal 8.7-12.4 [facility] Comment on above: Order Comment: CBN: YESCampus: MAIN Performed By: #### L 200.17022 ####Test performed at: [address] [address] Platelets Auto #/vol (Bld) 126 10*3/uL Low 140-440 [facility] Comment on above: Order Comment: CBN: YESCampus: MAIN Performed By: #### L 200.56490 ####Test performed at: [address] [address] RBC Auto #/vol (Bld) 4.21 10*6/uL Normal 3.5-5.5 [facility] Comment on above: Order Comment: CBN: YESCampus: MAIN Performed By: #### L 200.28093 ####Test performed at: [address] [address] WBC Auto #/vol (Bld) 4.9 10*3/uL Normal 3.9-11.0 [facility] Comment on above: Order Comment: CBN: YESCampus: MAIN Performed By: #### L 200.95748 ####Test performed at: [place] [address] CHEST PA/AP & LATERAL OR 2 V WSon 12-19-2017 CHEST PA/AP & LATERAL OR 2 VWS STUDY:CHEST PA/AP LATERAL OR 2 VWS; 12/19/2017 2:57 pmINDICATION:HISTOPLASMOSIS .COMPARISON:None. ERING CLINICIAN:Aleks Retana:CARDIOMEDIAST INAL SILHOUETTE:Cardiomediastina l silhouette is normal in size and configuration.LUNGS:Lungs are clear. Postsurgical changes in the right lung. Small leftpleural effusion.ABDOMEN:No remarkable upper abdominal findings.BONES:No acute osseous changes.IMPRESSION:Small left pleural effusion. Normal [facility] GFR ESTIMATEon 12-19-2017 IF AMER > 60 Normal > 60 [facility] Comment on above: Order Comment: CBN: YESCampus: MAIN Result Comment: eGFR (Estimated GFR) Units of measure:mL/min/1.73 meters sq.*CALCULATION REVISED 01/20/2015;IDMS-traceable MDRD equationeGFR is derived from the reexpressed MDRD Study equationusing the following parameters: serum creatinine, age,gender and race. An eGFR<60 mL/min/1.73m2 for >3 monthsis consistent with chronic kidney disease. Refer to KDOQIguidelhill [facility] services for clinical interpretation. Performed By: #### L 500.90773, L500.45951 ####Test performed at: [place] [address] IF non-AFR AMER > 60 Normal > 60 [facility] Comment on above: Order Comment: CBN: YESCampus: MAIN Performed By: #### L 500.22164, L500.53659 ####Test performed at: [place] [address] TSPATon 12-19-2017 BLOOD TYPE Positive Normal [facility] Comment on above: Order Comment: CBN: YESCampus: MAINTransfusion Status: CONSERVATIONBlood Bank service requested: TYPE AND SCREENSpecimen Comment: SURG 12/25 Performed By: #### B 100.0205 ####Test performed at: [place] [address] [place] [address] LUMB SP COMP W FLEX/EXT 6 VW Son 10-18-2017 LUMB SP COMP W FLEX/EXT 6 VWS STUDY:LUMB SP COMP W FLEX/EXT 6 VWS ; 10/18/2017 10:59 amINDICATION:. Back painCOMPARISON:None.ACCESSI ON NUMBER(S):[id number] ERING CLINICIAN:Lavell Mahoney:No fracture subluxation of the lumbar spine. The vertebral bodyheights are maintained. Mild multilevel degenerative disc height losswith scattered small endplate osteophytes. Lower lumbar predominantfacet arthropathy. No spondylolisthesis or spondylolysis. Noinstability on flexion or extension.Atherosclerosis is present.IMPRESSION:Degenera tive changes of the lumbar spine without instability. Normal [facility] LUMB SP COMP W FLEX/EXT 6 VW Son 09-19-2017 LUMB SP COMP W FLEX/EXT 6 VWS STUDY:LUMB SP COMP W FLEX/EXT 6 VWS ; 09/19/2017 12:46 pmINDICATION:. Back painCOMPARISON:None.ACCESSI ON NUMBER(S):[id number] ERING CLINICIAN:Lavell Mahoney:No lumbar spine fracture subluxation. Mild multilevel degenerativedisc height loss. No spondylolisthesis. No instability on flexion orextension. Lower lumbar facet arthropathy. No pars defects.Atherosclerosis is present.IMPRESSION:Mild degenerative changes of the lumbar spine without instability. Normal [facility] No Panel Information [facility] Vital Signs Date Time Vital Sign Value Performing Clinician Facility 12-09-2022 13:31040 Body height 185.4 cm Jane Hernandez PA-C Work Phone: [facility] 12-09-2022 13:31040 Body weight 91.17 kg Jane Hernandez PA-C Work Phone: [facility] 12-09-2022 13:31-0400 Diastolic blood pressure 76 mm[Hg] Jane Denmark PA-C Work Phone: [facility] 12-09-2022 13:31-0400 Heart rate 64 /min Jane David PA-C Work Phone: [facility] 12-09-2022 13:31-0400 Respiratory rate 16 /min Jane Denmark PA-C Work Phone: [facility] 12-09-2022 13:31-0400 SaO2% (BldA) [Mass fraction] 99 % Jane David PA-C Work Phone: [facility] 12-09-2022 13:31-0400 Systolic blood pressure 139 mm[Hg] Jane Denmark PA-C Work Phone: [facility] 11-01-2022 08:40-0400 Body height Tiffany Bucio Other [employer] Other 11-01-2022 08:40-0400 Body mass index (BMI) [Ratio] 25.25 kg/m2 Tiffany Bucio Other [employer] Other 11-01-2022 08:40-0400 Body weight 91.63 kg Tiffany Bucio Other [employer] Other 11-01-2022 08:40-0400 Diastolic blood pressure 70 mm[Hg] Tiffany Bucio Other [employer] Other 11-01-2022 08:40-0400 Systolic blood pressure 102 mm[Hg] Tiffany Bucio Other [employer] Other 08-04-2022 10:24-0400 Body height 185.4 cm Kulwinder Landry MD Work Phone: [facility] 08-04-2022 10:24-0400 Body temperature 98.01 [degF] Kulwinder Landry MD Work Phone: [facility] 08-04-2022 10:24-0400 Body weight 93.44 kg Kulwinder Landry MD Work Phone: [facility] 08-04-2022 10:24-0400 Diastolic blood pressure 67 mm[Hg] Kulwinder Landry MD Work Phone: [facility] 08-04-2022 10:24-0400 Heart rate 73 /min Kulwinder Landry MD Work Phone: [facility] 08-04-2022 10:24-0400 Systolic blood pressure 134 mm[Hg] Kulwinder Landry MD Work Phone: [facility] 08-03-2022 12:58-0400 Body height 188 cm Diane Vallecillo INVENTORY MANAGER.[employer] Work Phone: [facility] 08-03-2022 12:58-0400 Body temperature 97.9 [degF] Diane Vallecillo INVENTORY MANAGER.[employer] Work Phone: [facility] 08-03-2022 12:58-0400 Body weight 96.16 kg Diane Vallecillo INVENTORY MANAGER.[employer] Work Phone: [facility] 08-03-2022 12:58-0400 Diastolic blood pressure 67 mm[Hg] Diane Vallecillo INVENTORY MANAGER.[employer] Work Phone: [facility] 08-03-2022 12:58-0400 Heart rate 72 /min Diane Vallecillo INVENTORY MANAGER.[employer] Work Phone: [facility] 08-03-2022 12:58-0400 Respiratory rate 18 /min Diane Vallecillo INVENTORY MANAGER.[employer]ER Work Phone: [facility] 08-03-2022 12:58-0400 SaO2% (BldA) [Mass fraction] 96 % Diane Vallecillo INVENTORY MANAGER.[employer] Work Phone: [facility] 08-03-2022 12:58-0400 Systolic blood pressure 140 mm[Hg] Diane Vallecillo INVENTORY MANAGER.[employer] Work Phone: [facility] 07-11-2022 10:10-0400 Body weight 93.89 kg Sharon Castro MD Work Phone: [facility] 07-11-2022 10:10-0400 Diastolic blood pressure 66 mm[Hg] Sharon Castro MD Work Phone: [facility] 07-11-2022 10:10-0400 Heart rate 68 /min Sharon Castro MD Work Phone: [facility] 07-11-2022 10:10-0400 Systolic blood pressure 120 mm[Hg] Sharon Castro MD Work Phone: [facility] 06-15-2022 13:49-0400 Body height 188 cm Murali Jordan MD Work Phone: [facility] 06-15-2022 13:49-0400 Body temperature 97.39 [degF] Murali Jordan MD Work Phone: [facility] 06-15-2022 13:49-0400 Body weight 93.44 kg Murali Jordan MD Work Phone: [facility] 06-15-2022 13:49-0400 Diastolic blood pressure 56 mm[Hg] Murali Jordan MD Work Phone: [facility] 06-15-2022 13:49-0400 Heart rate 74 /min Murali Jordan MD Work Phone: [facility] 06-15-2022 13:49-0400 Respiratory rate 18 /min Murali Jordan MD Work Phone: [facility] 06-15-2022 13:49-0400 SaO2% (BldA) [Mass fraction] 97 % Murali Jordan MD Work Phone: [facility] 06-15-2022 13:49-0400 Systolic blood pressure 128 mm[Hg] Murali Jordan MD Work Phone: [facility] 05-31-2022 13:23-0500 Body weight 92.08 kg Faustina Leahy APRN.CNP Work Phone: [facility] 05-31-2022 13:23-0500 Diastolic blood pressure 56 mm[Hg] Faustina Leahy INVENTORY MANAGER.[employer] Work Phone: [facility] 05-31-2022 13:23-0500 Heart rate 77 /min Faustina Leahy INVENTORY MANAGER.[employer]ER Work Phone: [facility] 05-31-2022 13:23-0500 Respiratory rate 18 /min Faustina Leahy INVENTORY MANAGER.[employer]ER Work Phone: [facility] 05-31-2022 13:23-0500 Systolic blood pressure 116 mm[Hg] Faustina Leahy INVENTORY MANAGER.[employer]ER Work Phone: [facility] 05-27-2022 11:53-0500 Diastolic blood pressure 59 mm[Hg] Sharon Castro MD Work Phone: [facility] 05-27-2022 11:53-0500 Heart rate 78 /min Sharon Castro MD Work Phone: [facility] 05-27-2022 11:53-0500 Respiratory rate 16 /min Sharon Castro MD Work Phone: [facility] 05-27-2022 11:53-0500 Systolic blood pressure 108 mm[Hg] Sharon Castro MD Work Phone: [facility] 05-25-2022 12:47-0500 Body height 186.7 cm Marlo Alvarado MD Work Phone: [facility] 05-25-2022 12:47-0500 Body temperature 98.91 [degF] Marlo Alvarado MD Work Phone: [facility] 05-25-2022 12:47-0500 Body weight 90.27 kg Marlo Alvarado MD Work Phone: [facility] 05-25-2022 12:47-0500 Diastolic blood pressure 57 mm[Hg] Marlo Alvarado MD Work Phone: [facility] 05-25-2022 12:47-0500 Heart rate 80 /min Marlo Alvarado MD Work Phone: [facility] 05-25-2022 12:47-0500 Respiratory rate 18 /min Marlo Alvarado MD Work Phone: [facility] 05-25-2022 12:47-0500 SaO2% (BldA) [Mass fraction] 99 % Marlo Alvarado MD Work Phone: [facility] 05-25-2022 12:47-0500 Systolic blood pressure 100 mm[Hg] Marlo Alvarado MD Work Phone: [facility] 05-18-2022 14:19-0500 Body height 186.7 cm Diane Vallecillo INVENTORY MANAGER.[employer]ER Work Phone: [facility] 05-18-2022 14:19-0500 Body temperature 97 [degF] Diane Vallecillo INVENTORY MANAGER.[employer]ER Work Phone: [facility] 05-18-2022 14:19-0500 Body weight 90.27 kg Diane Vallecillo INVENTORY MANAGER.[employer]ER Work Phone: [facility] 05-18-2022 14:19-0500 Diastolic blood pressure 60 mm[Hg] Diane Vallecillo INVENTORY MANAGER.[employer]ER Work Phone: [facility] 05-18-2022 14:19-0500 Heart rate 78 /min Diane Vallecillo INVENTORY MANAGER.[employer]ER Work Phone: [facility] 05-18-2022 14:19-0500 Respiratory rate 18 /min Diane Vallecillo INVENTORY MANAGER.TI[employer] WE[employer]ER Work Phone: [facility] 05-18-2022 14:19-0500 SaO2% (BldA) [Mass fraction] 99 % Diane Vallecillo INVENTORY MANAGER.[employer] WE[employer]ER Work Phone: [facility] 05-18-2022 14:19-0500 Systolic blood pressure 100 mm[Hg] Diane Vallecillo INVENTORY MANAGER.[employer] WE[employer]ER Work Phone: [facility] 04-22-2022 14:30-0500 Body temperature 97.4 [degF] MD Jordan Azar Work Phone: [facility] 04-22-2022 14:30-0500 Diastolic blood pressure 64 mm[Hg] MD Jordan Azar Work Phone: [facility] 04-22-2022 14:30-0500 Heart rate 69 /min MD Jordan Azar Work Phone: [facility] 04-22-2022 14:30-0500 Respiratory rate 18 /min MD Jordan Azar Work Phone: [facility] 04-22-2022 14:30-0500 SaO2% (BldA) [Mass fraction] 98 % MD Jordan Azar Work Phone: [facility] 04-22-2022 14:30-0500 Systolic blood pressure 108 mm[Hg] MD Jordan Azar Work Phone: [facility] 04-22-2022 12:10-0500 Body height 185.42 cm MD Jordan Azar Work Phone: [facility] 04-22-2022 12:10-0500 Body weight 102.05 kg MD Jordan Azar Work Phone: [facility] 04-15-2022 08:52-0500 Body temperature 96.91 [degF] Lakshmi Cr DO Work Phone: [facility] 04-15-2022 08:52-0500 Body weight 102.06 kg Lakshmi Cr DO Work Phone: [facility] 04-15-2022 08:52-0500 Diastolic blood pressure 81 mm[Hg] Lakshmi Cr DO Work Phone: [facility] 04-15-2022 08:52-0500 Heart rate 86 /min Lakshmi Cr DO Work Phone: [facility] 04-15-2022 08:52-0500 Respiratory rate 16 /min Lakshmi Cr DO Work Phone: [facility] 04-15-2022 08:52-0500 SaO2% (BldA) [Mass fraction] 98 % Lakshmi Ahmadiburn DO Work Phone: [facility] 04-15-2022 08:52-0500 Systolic blood pressure 146 mm[Hg] Lakshmi Ahmadiburn DO Work Phone: [facility] 04-13-2022 08:33-0500 Body height 185.4 cm Dayna Reyes MD Work Phone: [facility] 04-13-2022 08:33-0500 Body temperature 98.71 [degF] Dayna Reyes MD Work Phone: [facility] 04-13-2022 08:33-0500 Body weight 102.24 kg Dayna Reyes MD Work Phone: [facility] 04-13-2022 08:33-0500 Diastolic blood pressure 73 mm[Hg] Dayna Reyes MD Work Phone: [facility] 04-13-2022 08:33-0500 Heart rate 88 /min Dayna Reyes MD Work Phone: [facility] 04-13-2022 08:33-0500 SaO2% (BldA) [Mass fraction] 97 % Dayna Reyes MD Work Phone: [facility] 04-13-2022 08:33-0500 Systolic blood pressure 148 mm[Hg] Dayna Reyes MD Work Phone: [facility] 03-22-2022 09:46-0500 Body weight 94.12 kg [facility] [address] 03-22-2022 09:30-0500 Diastolic blood pressure 69 mm[Hg] Hepatology Q3 [facility] 03-22-2022 09:30-0500 Heart rate 74 /min [facility] [address] 03-22-2022 09:30-0500 SaO2% (BldA) [Mass fraction] 97 % [facility] [address] 03-22-2022 09:30-0500 Systolic blood pressure 121 mm[Hg] Hepatology Q3 [facility] 03-22-2022 09:20-0500 Respiratory rate 16 /min Hepatology Q3 [facility] 03-22-2022 08:55-0500 Body height 185.4 cm Hepatology Q3 [facility] 03-22-2022 08:55-0500 Body temperature 98.2 [degF] Hepatology Q3 [facility] 03-17-2022 13:50-0500 Body height 185.4 cm Kulwinder Landry MD Work Phone: [facility] 03-17-2022 13:50-0500 Body temperature 95.79 [degF] Kulwinder Landry MD Work Phone: [facility] 03-17-2022 13:50-0500 Body weight 100.25 kg Kulwinder Landry MD Work Phone: [facility] 03-17-2022 13:50-0500 Diastolic blood pressure 77 mm[Hg] Kulwinder Landry MD Work Phone: [facility] 03-17-2022 13:50-0500 Heart rate 80 /min Kulwinder Landry MD Work Phone: [facility] 03-17-2022 13:50-0500 Respiratory rate 12 /min Kulwinder Landry MD Work Phone: [facility] 03-17-2022 13:50-0500 Systolic blood pressure 141 mm[Hg] Kulwinder Landry MD Work Phone: [facility] 03-10-2022 10:45-0500 Body height 182.9 cm Kulwinder Landry MD Work Phone: [facility] 03-10-2022 10:45-0500 Body temperature 97 [degF] Kulwinder Landry MD Work Phone: [facility] 03-10-2022 10:45-0500 Body weight 96.62 kg Kulwinder Landry MD Work Phone: [facility] 03-10-2022 10:45-0500 Diastolic blood pressure 69 mm[Hg] Kulwinder Landry MD Work Phone: [facility] 03-10-2022 10:45-0500 Heart rate 90 /min Kulwinder Landry MD Work Phone: [facility] 03-10-2022 10:45-0500 Respiratory rate 12 /min Kulwinder Landry MD Work Phone: [facility] 03-10-2022 10:45-0500 Systolic blood pressure 134 mm[Hg] Kulwinder Landry MD Work Phone: [facility] 02-11-2022 12:56-0500 Body height 185.4 cm Lakshmi Cr DO Work Phone: [facility] 02-11-2022 12:56-0500 Body temperature 97.3 [degF] Lakshmi Cr DO Work Phone: [facility] 02-11-2022 12:56-0500 Body weight 102 kg Lakshmi Cr DO Work Phone: [facility] 02-11-2022 12:56-0500 Diastolic blood pressure 71 mm[Hg] Lakshmi Cr DO Work Phone: [facility] 02-11-2022 12:56-0500 Heart rate 76 /min Lakshmi Cr DO Work Phone: [facility] 02-11-2022 12:56-0500 Respiratory rate 18 /min Lakshmi Cr DO Work Phone: [facility] 02-11-2022 12:56-0500 SaO2% (BldA) [Mass fraction] 98 % Lakshmi Cr DO Work Phone: [facility] 02-11-2022 12:56-0500 Systolic blood pressure 123 mm[Hg] Lakshmi Cr DO Work Phone: [facility] 02-10-2022 14:06-0500 Body height 185.4 cm Pacc 6 Work Phone: [facility] 02-10-2022 14:06-0500 Body temperature 98.1 [degF] Pacc 6 Work Phone: [facility] 11-10-2022 14:06-0500 Body weight 102.42 kg Pacc 6 Work Phone: [facility] 02-10-2022 14:06-0500 Diastolic blood pressure 73 mm[Hg] Pacc 6 Work Phone: [facility] 02-10-2022 14:06-0500 Heart rate 70 /min Pacc 6 Work Phone: [facility] 02-10-2022 14:06-0500 Respiratory rate 18 /min Pacc 6 Work Phone: [facility] 02-10-2022 14:06-0500 SaO2% (BldA) [Mass fraction] 97 % Pacc 6 Work Phone: [facility] 02-10-2022 14:06-0500 Systolic blood pressure 126 mm[Hg] Pacc 6 Work Phone: [facility] 02-10-2022 12:39-0500 Body height 185.4 cm Kulwinder Landry MD Work Phone: [facility] 02-10-2022 12:39-0500 Body temperature 97.5 [degF] Kulwinder Landry MD Work Phone: [facility] 02-10-2022 12:39-0500 Body weight 99.34 kg Kulwinder Landry MD Work Phone: [facility] 02-10-2022 12:39-0500 Diastolic blood pressure 60 mm[Hg] Kulwinder Landry MD Work Phone: [facility] 02-10-2022 12:39-0500 Heart rate 73 /min Kulwinder Landry MD Work Phone: [facility] 02-10-2022 12:39-0500 Systolic blood pressure 128 mm[Hg] Kulwinder Landry MD Work Phone: [facility] 01-13-2022 09:34-0400 Body height 185.4 cm Lakshmi Cr DO Work Phone: [facility] 01-13-2022 09:34-0400 Body temperature 98.6 [degF] Lakshmi Cr DO Work Phone: [facility] 01-13-2022 09:34-0400 Body weight 97.52 kg Lakshmi Cr DO Work Phone: [facility] 01-13-2022 09:34-0400 Diastolic blood pressure 69 mm[Hg] Lakshmi Cr DO Work Phone: [facility] 01-13-2022 09:34-0400 Heart rate 73 /min Lakshmi Cr DO Work Phone: [facility] 01-13-2022 09:34-0400 Respiratory rate 18 /min Lakshmi Cr DO Work Phone: [facility] 01-13-2022 09:34-0400 SaO2% (BldA) [Mass fraction] 98 % Lakshmi Cr DO Work Phone: [facility] 01-13-2022 09:34-0400 Systolic blood pressure 130 mm[Hg] Lakshmi Cr DO Work Phone: [facility] 12-08-2021 13:05-0400 Body height 187 cm Ivette Mejia MD Work Phone: [facility] 12-08-2021 13:05-0400 Body temperature 98.1 [degF] Ivette Mejia MD Work Phone: [facility] 12-08-2021 13:05-0400 Body weight 95.71 kg Ivette Mejia MD Work Phone: [facility] 12-08-2021 13:05-0400 Diastolic blood pressure 76 mm[Hg] Ivette Mejia MD Work Phone: [facility] 12-08-2021 13:05-0400 Heart rate 77 /min Ivette Mejia MD Work Phone: [facility] 12-08-2021 13:05-0400 Respiratory rate 18 /min Ivette Mejia MD Work Phone: [facility] 12-08-2021 13:05-0400 SaO2% (BldA) [Mass fraction] 97 % Ivette Mejia MD Work Phone: [facility] 12-08-2021 13:05-0400 Systolic blood pressure 130 mm[Hg] Ivette Mejia MD Work Phone: [facility] 11-11-2021 09:20-0400 Body height 185.4 cm Pacc 2 Work Phone: [facility] 11-11-2021 09:20-0400 Body temperature 97.11 [degF] Pacc 2 Work Phone: [facility] 11-11-2021 09:20-0400 Body weight 98.43 kg Pacc 2 Work Phone: [facility] 11-11-2021 09:20-0400 Diastolic blood pressure 79 mm[Hg] Pacc 2 Work Phone: [facility] 11-11-2021 09:20-0400 Heart rate 74 /min Pacc 2 Work Phone: [facility] 11-11-2021 09:20-0400 Respiratory rate 16 /min Pacc 2 Work Phone: [facility] 11-11-2021 09:20-0400 SaO2% (BldA) [Mass fraction] 97 % Pacc 2 Work Phone: [facility] 11-11-2021 09:20-0400 Systolic blood pressure 104 mm[Hg] Pacc 2 Work Phone: [facility] 10-07-2021 13:27-0400 Body height 185.4 cm Kulwinder Landry MD Work Phone: [facility] 10-07-2021 13:27-0400 Body weight 100.7 kg Kulwinder Landry MD Work Phone: [facility] 10-07-2021 13:27-0400 Diastolic blood pressure 64 mm[Hg] Kulwinder Landry MD Work Phone: [facility] 10-07-2021 13:27-0400 Heart rate 66 /min Kulwinder Landry MD Work Phone: [facility] 10-07-2021 13:27-0400 Systolic blood pressure 107 mm[Hg] Kulwinder Landry MD Work Phone: [facility] 10-07-2021 10:25-0400 Body height 187.1 cm Lorna Frazier MD Work Phone: [facility] 10-07-2021 10:25-0400 Body weight 100.7 kg Lorna Frazier MD Work Phone: [facility] 10-07-2021 10:25-0400 Diastolic blood pressure 64 mm[Hg] Lorna Frazier MD Work Phone: [facility] 10-07-2021 10:25-0400 Heart rate 66 /min Lorna Frazier MD Work Phone: [facility] 10-07-2021 10:25-0400 Systolic blood pressure 107 mm[Hg] Lorna Frazier MD Work Phone: [facility] 09-17-2021 09:45-0400 Body height 185.4 cm Lucy Merced PA-C Work Phone: [facility] 09-17-2021 09:45-0400 Body temperature 97.11 [degF] Lucy Monie PA-C Work Phone: [facility] 09-17-2021 09:45-0400 Body weight 104.51 kg Lucy Monie PA-C Work Phone: [facility] 09-17-2021 09:45-0400 Diastolic blood pressure 73 mm[Hg] Lucy Merced PA-C Work Phone: [facility] 09-17-2021 09:45-0400 Heart rate 68 /min Lucy Merced PA-C Work Phone: [facility] 09-17-2021 09:45-0400 SaO2% (BldA) [Mass fraction] 98 % Lucy Monie PA-C Work Phone: [facility] 09-17-2021 09:45-0400 Systolic blood pressure 136 mm[Hg] Lucy Lomax PA-C Work Phone: [facility] 07-07-2021 11:00-0400 Body height 185.4 cm Dayna Reyes MD Work Phone: [facility] 07-07-2021 11:00-0400 Body temperature 97 [degF] Dayna Reyes MD Work Phone: [facility] 07-07-2021 11:00-0400 Body weight 108.05 kg Dayna Reyes MD Work Phone: [facility] 07-07-2021 11:00-0400 Diastolic blood pressure 87 mm[Hg] Dayna Reyes MD Work Phone: [facility] 07-07-2021 11:00-0400 Heart rate 92 /min Dayna Reyes MD Work Phone: [facility] 07-07-2021 11:00-0400 SaO2% (BldA) [Mass fraction] 97 % Dayna Reyes MD Work Phone: [facility] 07-07-2021 11:00-0400 Systolic blood pressure 148 mm[Hg] Dayna Reyes MD Work Phone: [facility] Encounters Encounter Date Encounter Type Care Provider Facility Start: 11-18-2024 End: 11-18-2024 ambulatory JORDAN M NISSA Facility:[facility] Start: 10-22-2024 ambulatory Bonifacio Null Facility:[facility] Start: 10-21-2024 End: 10-21-2024 ambulatory JORDAN M NISSA Facility:[facility] Start: 09-27-2024 End: 09-27-2024 ambulatory JORDAN M NISSA Facility:[facility] Start: 09-13-2024 End: 11-13-2024 Follow-up encounter Kat Leal pick out hand [facility] Start: 09-13-2024 End: 09-13-2024 ambulatory JORDAN M NISSA Facility:[facility] Start: 08-23-2024 End: 10-23-2024 Follow-up encounter Kat Leal RN Transplant [facility] Start: 08-23-2024 End: 08-23-2024 ambulatory JORDAN AZAR Facility:[facility] Start: 08-12-2024 End: 10-12-2024 Follow-up encounter Francois German RN Transplant Center Start: 08-12-2024 End: 08-12-2024 ambulatory JORDAN Yolette AZAR Facility:[facility] Start: 07-15-2024 End: 09-14-2024 Follow-up encounter Francois German RN Transplant [facility] Start: 07-15-2024 End: 07-15-2024 ambulatory JORDAN Yolette AZAR Facility:[facility] Start: 06-17-2024 End: 08-17-2024 Follow-up encounter Kat Leal RN Transplant Center Start: 06-17-2024 End: 06-17-2024 ambulatory JORDAN Yolette Ben Facility:[facility] Start: 05-25-2024 End: 05-27-2024 Refill Rebecca Mascorro INVENTORY MANAGER.TIRE CORD WEAVER Work Phone: Transplant Center Comment on above: Refill Request Start: 05-20-2024 End: 07-20-2024 Follow-up encounter Kat Leal RN Transplant [facility] Start: 05-20-2024 End: 05-20-2024 ambulatory JORDAN AZAR Facility:[facility] Start: 05-09-2024 End: 05-09-2024 Refill Diane Vallecillo INVENTORY MANAGER.TIRE CORD WEAVER Work Phone: Transplant Center Comment on above: Refill Request Start: 04-22-2024 End: 04-22-2024 ambulatory JORDAN Yolette AZAR Facility:[facility] Start: 04-08-2024 End: 04-08-2024 Orders Only Kat Leal RN Transplant Center Comment on above: Liver replaced by tr ansplant (HCC) (Primary Dx) Start: 03-26-2024 End: 03-26-2024 Refill Kat Leal RN Transplant Center Comment on above: Results; Refill Requ est; Medication Dosage Adjustment (Decrease FK to 04/03) Start: 03-25-2024 End: 03-25-2024 ambulatory JORDAN AZAR Facility:[facility] Start: 03-12-2024 End: 03-12-2024 Refill Kat Leal RN Transplant Center Comment on above: Results; Refill Requ est; Medication Dosage Adjustment (Increase actigall to 3 times per day) Start: 03-11-2024 End: 03-11-2024 [facility] Yolette [facility] Facility:[facility] Start: 02-26-2024 End: 02-26-2024 [facility] Facility:[facility] Start: 02-13-2024 End: 02-20-2024 Chart abstracting Rebecca Mascorro APRN.[employer] C[employer] WEAVER Work Phone: Transplant Center Comment on above: Pathology review Start: 02-12-2024 End: 02-12-2024 [facility] Yolette [facility] Facility:[facility] Start: 02-08-2024 End: 02-08-2024 Telephone encounter Kat Leal RN Transplant Center Comment on above: Results Start: 02-07-2024 End: 02-07-2024 Subsequent hospital visit by physician [facility] Comment on above: Elevated LFTs [R79.8 9] Start: 02-07-2024 End: 02-07-2024 [facility] Yolette Ben Facility:[facility] Start: 02-06-2024 End: 02-06-2024 Telephone encounter Jammie Cantu RN Transplant Center Comment on above: Abnormal Lab (Elevat ed lfts/) Results; Orders Biopsy Request (need s a STAT liver ultrasound and biopsy tomorrow.) Abnormal blood chemi stry (Primary Dx); Elevated LFTs Start: 02-05-2024 End: 02-05-2024 [facility] Yolette Ben Facility:[facility] Start: 01-30-2024 End: 01-30-2024 Telephone encounter Kat Leal RN Transplant Center Comment on above: Results Start: 01-29-2024 End: 01-29-2024 [facility] Yolette Ben Facility:[facility] Start: 01-16-2024 End: 01-16-2024 Refill Kat Leal RN Transplant Center Comment on above: Results; Refill Requ est; Medication Dosage Adjustment (Increase tacrolimus to 2/2) Start: 01-15-2024 End: 01-15-2024 ambulatory JORDAN AZAR Facility:[facility] Start: 01-01-2024 End: 01-01-2024 ambulatory JORDAN AZAR Facility:[facility] Start: 12-18-2023 End: 12-18-2023 ambulatory JORDAN AZAR Facility:[facility] Start: 12-05-2023 End: 12-05-2023 ambulatory JORDAN AZAR Facility:[facility] Start: 07-12-2023 Refill Kat Leal RN [facility] [place] Comment on above: Refill Request Start: 05-25-2023 Refill Diane boyer APRN.CNP Work Phone: Transplant Center Comment on above: Refill Request Start: 05-25-2023 Refill Vandana ([facility] Start: 05-22-2023 Telephone encounter Liver Txp Coordinator Work Phone: Transplant Center Comment on above: Return Call Request Start: 05-11-2023 Refill Dayna Reyes MD Work Phone: Gastroenterology Comment on above: Refill Request Start: 02-01-2023 Orders Only Kat Leal RN [facility] [place] Comment on above: Liver replaced by tr ansplant (HCC) (Primary Dx) Start: 01-26-2023 End: 01-26-2023 ambulatory MD Jordan Azar Work Phone: [facility] Work Phone: Start: 01-26-2023 End: 01-26-2023 Discharged Recurring MD Jordan Azar Work Phone: [facility]-Physical Therapy [place] Work Phone: Start: 01-16-2023 [...] procedure Jane Hernandez PA-C Work Phone: [facility] Comment on above: Acute left-sided low back pain with left-sided sciatica (Primary Dx); S/P lumbar laminectomy Start: 11-20-2022 Telephone encounter Francois German RN Transplant Center Comment on above: Eb[employer] Res[employer] Start: 11-17-2022 End: 11-17-2022 Subsequent hospital visit [...] Start: 11-07-[address] [facility] Comment on above: Results; Refill Requ est; Medication Dosage Adjustment (Increase FK to 2/2) Start: 11-01-2022 End: 11-01-2022 ambulatory Tiffany Bucio Other [facility] Other Start: 11-01-2022 Office outpatient ne w 30 minutes Tiffany Bucio [facility] Start: 10-31-2022 End: 10-31-2022 ambulatory Diane Vallecillo APRN.CNP Work Phone: Transplant Center Comment on above: Liver replaced by tr ansplant (HCC) (Primary Dx); Immunosuppressed status (HCC) Start: 10-31-2022 End: 10-31-2022 Telemedicine consultation with patient Diane Vallecillo APRN.CNP Work Phone: [facility] Start: 10-13-2022 Orders Only Jammie ([facility]) [facility] [place] Comment on above: Research subject (Pr imary Dx); Liver replaced by transplant (HCC) Start: 10-13-2022 Patient entered into trial Jammie ([facility]) [facility] Start: 10-07-2022 Refill Diane boyer APRN.TIRE CORD WEAVER Work Phone: Transplant Center Comment on above: Refill Request Start: 10-03-2022 End: 10-03-2022 Patient encounter procedure Lab [facility] Mc Work Phone: Laboratory Medicine Comment on above: Liver replaced by tr ansplant (HCC) Start: 09-22-2022 Telephone encounter Liver Txp Coordinator Work Phone: Transplant Center Comment on above: Medication Question Start: 09-15-2022 Refill Kat Leal RN [facility] [place] Comment on above: Results; Refill Requ est; Medication Dosage Adjustment (Decrease FK to 1.5/1.5) Start: 09-01-2022 Refill Kat Leal RN [facility] [place] Comment on above: Results; Refill Requ est; Medication Dosage Adjustment (Increase FK to 2/2, start actigall) Start: 08-30-2022 End: 08-30-2022 [facility] Work Phone: Laboratory Medicine Comment on above: Liver replaced by tr ansplant (HCC) Start: 08-04-2022 End: 08-04-2022 Patient encounter procedure Kulwinder Landry MD Work Phone: General Surgery Comment on above: Unilateral inguinal hernia without obstruction or gangrene, recurrence not specified (Primary Dx) Start: 08-03-2022 End: 08-03-2022 Patient encounter procedure Diane Vallecillo APRN.TIRE CORD WEAVER Work Phone: Transplant Center Comment on above: [...] Prep Start: 07-13-2022 Orders Only Nanci Kamara INVENTORY MANAGER.TI[employer] CORD WEAVER Work Phone: General Surgery Comment on above: [...] encounter procedure Nay Brunson RDMS [facility] Start: 07-04-2022 End: 07-04-2022 Subsequent hospital visit by physician [facility] Comment on above: Scrotal swelling [N5 0.89] Start: 06-27-2022 Refill Diane Ant s INVENTORY MANAGER.TIRE CORD WEAVER Work Phone: Transplant Center Comment on above: [...] immunotherapy Start: 06-12-2022 Refill Diane Ant s INVENTORY MANAGER.TIRE C[employer] WEAVER Work Phone: Transplant Center Comment on above: Refill Request Start: 06-11-2022 Telephone encounter Sharon Castro MD Work Phone: Urology Comment on above: Appointment Start: 06-10-2022 Orders Only Kat Leal RN [facility] [place] Comment on above: Exposure to hepatiti s B (Primary Dx); Exposure to hepatitis C; Exposure to HIV Start: 06-08-2022 End: 06-09-[address] JORDAN AZAR . Facility: Start: 06-02-2022 Refill Kat Leal RN [facility] [place] Comment on above: Results; Refill Requ est; Medication Dosage Adjustment (Decrease FK to 2/2) Start: 05-31-2022 End: 05-31-2022 Patient encounter procedure Faustina Leahy INVENTORY MANAGER.TI[employer] CORD WEAVER Work Phone: Endocrinology Comment on above: Steroid-induced [...] 05-26-2022 End: 05-26-2022 Patient [facility] Work Phone: Laboratory Medicine Comment on above: Liver replaced by tr ansplant (HCC) Start: 05-25-2022 End: 05-25-[address] [facility] Comment on above: Research study patie nt (Primary Dx); Liver replaced by transplant (HCC) Liver transplant rec ipient (HCC) (Primary Dx) Virtualist Scrotal Problem Start: 05-25-2022 Patient entered into trial [facility] Start: 05-23-2022 End: 05-23-2022 Patient encounter procedure Lab [facility] [place] Mc Work Phone: Laboratory Medicine Comment on above: Liver replaced by tr ansplant (HCC) Start: 05-20-2022 Follow-up encounter Liver Txp Coordinator Work Phone: Transplant Center Comment on above: Medication Follow-up Start: 05-18-2022 End: 05-18-2022 Patient encounter procedure Diane Vallecillo TIRE CORD WEAVER Work Phone: Transplant Center Comment on above: [...] surgery center MD Jordan Azar Work Phone: [facility] [place] Work Phone: Start: 04-22-2022 End: 04-22-2022 ambulatory MD Jordan Azar Work Phone: [facility] Work Phone: Start: 04-15-2022 End: 04-15-2022 [...] 04-01-2022 Subsequent hospital visit by physician [facility] Radiology Comment on above: Unilateral inguinal [...] Refill Request Start: 02-23-2022 ambulatory DAYNA REYES Facility:[facility] Start: 02-23-2022 End: 02-23-2022 Subsequent hospital visit by physician [facility] Work Phone: [facility] Radiology Ultrasound Comment on above: Liver cirrhosis [...] Medicine Start: 02-10-2022 End: 02-10-2022 Admission to [facility] P[facility] 6 Work Phone: [facility] Start: 02-10-2022 End: 02-10-2022 ambulatory Pacc [address] 6 Work Phone: Pre Anesthesia Comment on above: Pre-operative examin ation (Primary Dx); Essential hypertension; Dyslipidemia; Coronary artery disease involving solomon coronary artery of solomon heart without angina pectoris; Chronic obstructive pulmonary [...] 12-22-2021 Subsequent hospital visit by physician [facility] Ultrasound Comment on above: Other ascites [...] encounter procedure Ivette Mejia MD Work Phone: [facility] Start: 12-03-2021 End: 12-03-2021 Subsequent hospital [...] Orders Start: 11-11-2021 End: 11-11-2021 Admission to [facility] Start: 11-11-2021 End: 11-11-2021 ambulatory [facility] Work Phone: Pre Anesthesia Comment on above: Liver cirrhosis seco ndary to [place] (HCC) (Primary Dx); Preoperative examination; Unilateral inguinal hernia without obstruction or gangrene, recurrence not specified; Portal hypertensive gastropathy (HCC); Iron deficiency; Thrombocytopenia (HCC); Essential hypertension; Abdominal aortic aneurysm (AAA) without rupture (HCC); Other ascites; Portal hypertension with esophageal varices (HCC); Histoplasmosis Start: 11-11-2021 End: 11-11-2021 Preprocedural examination done [facility] Work Phone: Pre Anesthesia Start: 10-27-2021 [...] 04-30-2021 Subsequent hospital visit by physician [facility] Radiology Ct Scan Comment on above: Unilateral inguinal hernia without obstruction or gangrene, recurrence not specified [K40.90] Start: 12-25-2017 End: 12-27-2017 Patient encounter Family Physician Unavailable Facility:[facility] Start: 12-25-2017 Patient encounter procedure Facility:[id number] Start: 12-19-2017 Patient encounter Aleks rendon:[facility] Start: 12-19-2017 Patient encounter procedure Facility:[id number] Start: 10-18-2017 Patient encounter Lavell garnett:[facility] Start: 10-18-2017 Patient encounter procedure Facility:[id number] Start: 09-19-2017 Patient encounter Lavell Nixon lity:[facility] Start: 09-19-2017 Patient encounter procedure Facility:[id number] Procedures Date Procedure Procedure Detail Performing Clinician Start: 08-23-2024 Lipid 1995 panel - S nahid or Plasma Francois German RN Start: 05-20-2024 Lipid 1995 panel - S nahid or Plasma Rebecca Mascorro INVENTORY MANAGER.TI[employer] C[employer] WEAVER Work Phone: Start: 04-22-2024 Lipid 1995 panel - S nahid or Plasma Diane Vallecillo INVENTORY MANAGER.TI[employer] C[employer] WEAVER Work Phone: Start: 02-07-2024 Dup-scan artl grey abdl/pel/scrot&/rpr orgn com Rebecca Mascorro INVENTORY MANAGER.TI[employer] C[employer] WEAVER Work Phone: Start: 02-07-2024 US ABD LIVER VASCULAR J hollie Mascorro INVENTORY MANAGER.TI[employer] C[employer] WEAVER Work Phone: Start: 09-11-2023 Lipid 1996 panel - S nahid or Plasma Kat Leal RN Start: 05-23-2023 Lipid 1996 panel - S nahid or Plasma Vandana Styles Start: 01-16-2023 Blood count complete auto&auto difrntl wbc Rebecca Mascorro INVENTORY MANAGER.TI[employer] C[employer] WEAVER Work Phone: Start: 01-16-2023 Drug screen quantita tive tacrolimus Rebecca Mascorro INVENTORY MANAGER.TI[employer] C[employer] WEAVER Work Phone: Start: 01-16-2023 Iadna cytomegaloviru s quantification Rebecca Mascorro INVENTORY MANAGER.TI[employer] CORD WEAVER Work Phone: Start: 01-09-2023 Blood count complete auto&auto difrntl wbc Rebecca Mascorro INVENTORY MANAGER.TI[employer] C[employer] WEAVER Work Phone: Start: 01-09-2023 Drug screen quantita tive tacrolimus Rebecca A Leo INVENTORY MANAGER.TIRE CORD WEAVER Work Phone: Start: 01-09-2023 Iadna cytomegaloviru s quantification Rebecca A Leo INVENTORY MANAGER.TIRE CORD WEAVER Work Phone: Start: 11-17-2022 Dup-scan artl grey abdl/pel/scrot&/rpr orgn com Diane Daryl INVENTORY MANAGER.TIRE CORD WEAVER Work Phone: Start: 11-17-2022 US ABD LIVER VASCULAR M mary Daryl INVENTORY MANAGER.TIRE CORD WEAVER Work Phone: Start: 11-14-2022 Lipid 1996 panel - S nahid or Plasma Lab Work Phone: Start: 10-03-2022 Blood count complete auto&auto difrntl wbc Rebecca Mascorro INVENTORY MANAGER.TI[employer] C[employer] WEAVER Work Phone: Start: 10-03-2022 Drug screen quantita tive tacrolimus Rebecca Mascorro INVENTORY MANAGER.TI[employer] C[employer] WEAVER Work Phone: Start: 10-03-2022 Iadna cytomegaloviru s quantification Rebecca A Leo INVENTORY MANAGER.TIRE CORD WEAVER Work Phone: Start: 08-30-2022 Blood count complete auto&auto difrntl wbc Rebecca Mascorro INVENTORY MANAGER.TI[employer] C[employer] WEAVER Work Phone: Start: 08-30-2022 Drug screen quantita tive tacrolimus Rebecca Mascorro INVENTORY MANAGER.TIRE CORD WEAVER Work Phone: Start: 08-30-2022 Iadna cytomegaloviru s quantification Rebecca A Leo INVENTORY MANAGER.TIRE C[employer] WEAVER Work Phone: Start: 08-01-2022 Ct abdomen & pelvis w/o contrast material Nanci Kamara INVENTORY MANAGER.TIRE CORD WEAVER Work Phone: Start: 07-04-2022 Dup-scan artl grey abdl/pel/scrot&/rpr orgn com Sharon Castro MD Work Phone: Start: 07-04-2022 Us scrotum & contents L sydni Castro MD Work Phone: Start: 05-31-2022 Hemoglobin A1c/Hemoglobin.total in Blood Faustina Leahy INVENTORY MANAGER.TIRE CORD WEAVER Work Phone: Start: 05-26-2022 Blood count complete auto&auto difrntl wbc Rebecca A Leo INVENTORY MANAGER.TIRE CORD WEAVER Work Phone: Start: 05-26-2022 Drug screen quantita tive tacrolimus Rebecca A Leo INVENTORY MANAGER.[employer] Work Phone: Start: 05-23-2022 Blood count complete auto&auto difrntl wbc Rebecca A Leo INVENTORY MANAGER.[employer] Work Phone: Start: 05-23-2022 Drug screen quantita tive tacrolimus Rebecca A Leo INVENTORY MANAGER.[employer] Work Phone: Start: 05-23-2022 Iadna cytomegaloviru s quantification Rebecca A Leo INVENTORY MANAGER.[employer] Work Phone: Start: 05-02-2022 H/O: liver recipient Liver tra nsplant recipient Kat Leal RN Start: 04-29-2022 Ct abdomen w/contras t material Dayna Reyes MD Work Phone: Start: 04-22-2022 Ultrasonography guid ed puncture and aspiration of abdomen MD Jordan Azar Work Phone: Start: 04-15-2022 Dup-scan artl grey abdl/pel/scrot&/rpr orgn com Dayna Reyes MD Work Phone: Start: 04-15-2022 Us scrotum & contents C nayana Reyes MD Work Phone: Start: 04-01-2022 Ct abdomen & pelvis w/o contrast material Kulwinder Landry MD Work Phone: Start: 03-22-2022 Abdom paracentesis d x/ther w/imaging guidance Dayna Reyes MD Work Phone: Start: 03-22-2022 Albumin serum plasma /whole blood Melody Alonso INVENTORY MANAGER.[facility] Work Phone: Start: 03-22-2022 BF MANUAL DIFF Melody E Charleston INVENTORY MANAGER.[employer] Work Phone: Start: 03-22-2022 Cell count misc body fluids w/differential count Melody E Gavin INVENTORY MANAGER.[employer] Work Phone: Start: 03-22-2022 Cul bact xcpt urine blood/stool aerobic isol Melody E [place] INVENTORY MANAGER.[employer] Work Phone: Start: 03-22-2022 US PARACENTESIS (POC ) DDI USE ONLY Melody E [place] INVENTORY MANAGER.[employer] Work Phone: Start: 02-23-2022 Us abdominal real [...] By: #### B [id number] ####Test performed at: [place] [address] Start: 12-19-2017 Electrocardiogram Lavell Álvarez H/O: liver recipient Liver repla christos by transplant (HCC) Kat Leal RN H/O: liver recipient Status post liver transplant (HCC) Diane Vallecillo APRN.[employer] Work Phone: H/O: liver recipient Liver repla christos by transplant (HCC) Jammie ([facility]) Gracy H/O: liver recipient Liver trans plant [...] repla christos by transplant (HCC) Diane Vallecillo APRN.[employer] Work Phone: H/O: liver recipient Liver repla christos by transplant (HCC) Lab Work Phone: H/O: liver recipient Liver repla christos by transplant (HCC) Lab Work Phone: H/O: liver recipient Liver repla christos by transplant (HCC) Jammie ([facility]) Bilancini H/O: liver recipient Liver repla christos by transplant (HCC) Diane Vallecillo APRN.[employer] Work Phone: H/O: liver recipient Liver trans [...] microalbumin profile [facility] Start: 08-23-2029 Lipid panel Lipid Screening [facility] Start: 08-23-2029 Prostate specific antigen measurement Prostate Cancer Screening Discussion [facility] Start: 05-20-2029 Lipid panel Lipid Screening [facility] Start: 04-22-2029 Lipid panel Lipid Screening [facility] Start: 09-10-2028 Lipid panel Lipid Screening [facility] Start: 05-23-2028 Lipid panel Lipid Screening [facility] Start: 05-22-2028 Prostate specific antigen measurement Prostate Cancer Screening Discussion [facility] Start: 11-15-2027 Lipid 1996 panel - Serum or Plasma Lipid Screening [facility] Start: 11-15-2027 Lipid panel Lipid Screening [facility] Start: 11-15-2027 LIPID SCREEN LIPID SCREEN [facility] Start: 10-22-2027 Diabetes Screening Diabetes Screening [facility] Start: 09-28-2027 Diabetes Screening Diabetes Screening [facility] Start: 09-14-2027 Diabetes Screening Diabetes Screening [facility] Start: 08-13-2027 Diabetes Screening Diabetes Screening [facility] Start: 08-09-2027 LIPID SCREEN LIPID SCREEN [facility] Start: 07-16-2027 Diabetes Screening Diabetes Screening [facility] Start: 07-05-2027 LIPID SCREEN LIPID SCREEN [facility] Start: 05-20-2027 Diabetes Screening Diabetes Screening [facility] Start: 05-16-2027 LIPID SCREEN LIPID SCREEN [facility] Start: 04-29-2027 LIPID SCREEN LIPID SCREEN [facility] Start: 04-22-2027 Diabetes Screening Diabetes Screening [facility] Start: 04-08-2027 Diabetes Screening Diabetes Screening [facility] Start: 03-25-2027 Diabetes Screening Diabetes Screening [facility] Start: 03-11-2027 Diabetes Screening Diabetes Screening [facility] Start: 02-11-2027 Diabetes Screening Diabetes Screening [facility] Start: 02-04-2027 Diabetes Screening Diabetes Screening [facility] Start: 01-28-2027 Diabetes Screening Diabetes Screening [facility] Start: 01-14-2027 Diabetes Screening Diabetes Screening [facility] Start: 07-02-2026 Diabetes Screening Diabetes Screening [facility] Start: 05-23-2026 Diabetes Screening Diabetes Screening [facility] Start: 05-22-2026 Diabetes Screening Diabetes Screening [facility] Start: 05-08-2026 Diabetes Screening Diabetes Screening [facility] Start: 04-21-2026 PROSTATE CANCER SCREENING DISCUSSION PROSTATE CANCER SCREENING DISCUSSION [facility] Start: 04-21-2026 Prostate specific antigen measurement Prostate Cancer Screening Discussion [facility] Start: 01-30-2026 Diabetes Screening Diabetes Screening [facility] Start: 01-16-2026 Diabetes Screening Diabetes Screening [facility] Start: 01-09-2026 Diabetes Screening Diabetes Screening [facility] Start: 12-06-2025 DIABETES SCREEN DIABETES SCREEN [facility] Start: 11-14-2025 DIABETES SCREEN DIABETES SCREEN [facility] Start: 11-07-2025 DIABETES SCREEN DIABETES SCREEN [facility] Start: 10-31-2025 DIABETES SCREEN DIABETES SCREEN [facility] Start: 10-10-2025 DIABETES SCREEN DIABETES SCREEN [facility] Start: 10-03-2025 DIABETES SCREEN DIABETES SCREEN [facility] Start: 09-19-2025 DIABETES SCREEN DIABETES SCREEN [facility] Start: 09-12-2025 DIABETES SCREEN DIABETES SCREEN [facility] Start: 08-30-2025 DIABETES SCREEN DIABETES SCREEN [facility] Start: 08-23-2025 Hepatitis B surface antibody level LDL Cholesterol [facility] Start: 08-04-2025 DIABETES SCREEN DIABETES SCREEN [facility] Start: 08-01-2025 DIABETES SCREEN DIABETES SCREEN [facility] Start: 07-25-2025 DIABETES SCREEN DIABETES SCREEN [facility] Start: 07-14-2025 DIABETES SCREEN DIABETES SCREEN [facility] Start: 07-11-2025 DIABETES SCREEN DIABETES SCREEN [facility] Start: 07-04-2025 DIABETES SCREEN DIABETES SCREEN [facility] Start: 06-27-2025 DIABETES SCREEN DIABETES SCREEN [facility] Start: 06-23-2025 DIABETES SCREEN DIABETES SCREEN [facility] Start: 06-16-2025 DIABETES SCREEN DIABETES SCREEN [facility] Start: 06-13-2025 DIABETES SCREEN DIABETES SCREEN [facility] Start: 06-09-2025 DIABETES SCREEN DIABETES SCREEN [facility] Start: 06-06-2025 DIABETES SCREEN DIABETES SCREEN [facility] Start: 06-02-2025 DIABETES SCREEN DIABETES SCREEN [facility] Start: 05-31-2025 DIABETES SCREEN DIABETES SCREEN [facility] Start: 05-30-2025 DIABETES SCREEN DIABETES SCREEN [facility] Start: 05-26-2025 DIABETES SCREEN DIABETES SCREEN [facility] Start: 05-23-2025 DIABETES SCREEN DIABETES SCREEN [facility] Start: 05-20-2025 Hepatitis B surface antibody level LDL Cholesterol [facility] Start: 05-19-2025 DIABETES SCREEN DIABETES SCREEN [facility] Start: 05-16-2025 DIABETES SCREEN DIABETES SCREEN [facility] Start: 05-13-2025 DIABETES SCREEN DIABETES SCREEN [facility] Start: 05-05-2025 DIABETES SCREEN DIABETES SCREEN [facility] Start: 05-02-2025 DIABETES SCREEN DIABETES SCREEN [facility] Start: 04-29-2025 DIABETES SCREEN DIABETES SCREEN [facility] Start: 04-23-2025 Colonoscopy COLONOSCOPY [facility] Start: 04-23-2025 COLORECTAL CANCER SCREENING COLORECTAL CANCER SCREENING [facility] Start: 04-23-2025 Screening for malignant neoplasm of colon [facility] Start: 04-22-2025 Hepatitis B surface antibody level LDL Cholesterol [facility] Start: 04-13-2025 DIABETES SCREEN DIABETES SCREEN [facility] Start: 04-07-2025 DIABETES SCREEN DIABETES SCREEN [facility] Start: 03-17-2025 End: 03-17-2025 Patient encounter procedure 03/17/2025 7:45 AM EST Office Visit [facility] [address] [place] [address] lab [facility] Comment on above: lab Start: 03-10-2025 DIABETES SCREEN DIABETES SCREEN [facility] Start: 03-04-2025 DIABETES SCREEN DIABETES SCREEN [facility] Start: 03-02-2025 DIABETES SCREEN DIABETES SCREEN [facility] Start: 02-25-2025 DIABETES SCREEN DIABETES SCREEN [facility] Start: 02-21-2025 DIABETES SCREEN DIABETES SCREEN [facility] Start: 02-17-2025 End: 02-17-2025 Patient encounter procedure 02/17/2025 7:45 AM EST Office Visit [facility] [address] [place] [address] lab [facility] Comment on above: lab Start: 01-27-2025 DIABETES SCREEN DIABETES SCREEN [facility] Start: 01-20-2025 End: 01-20-2025 Patient encounter procedure 01/20/2025 7:45 AM EDT Office Visit [facility] [address] [place] [address] lab [facility] Comment on above: lab Start: 01-13-2025 DIABETES SCREEN DIABETES SCREEN [facility] Start: 01-04-2025 DIABETES SCREEN DIABETES SCREEN [facility] Start: 12-20-2024 DIABETES SCREEN DIABETES SCREEN [facility] Start: 12-16-2024 End: 12-16-2024 Patient encounter procedure 12/16/2024 7:45 AM EDT Office Visit [facility] [address] [place] [address] lab [facility] Comment on above: lab Start: 12-02-2024 Influenza vaccination [facility] Start: 12-01-2024 DIABETES SCREEN DIABETES SCREEN [facility] Start: 11-29-2024 DIABETES SCREEN DIABETES SCREEN [facility] Start: 11-26-2024 DIABETES SCREEN DIABETES SCREEN [facility] Start: 11-18-2024 End: 11-18-2024 Patient encounter procedure 11/18/2024 7:45 AM EDT Office Visit [facility] [address] [place] [address] lab [facility] Comment on above: lab Start: 11-12-2024 DIABETES SCREEN DIABETES SCREEN [facility] Start: 11-11-2024 DIABETES SCREEN DIABETES SCREEN [facility] Start: 10-21-2024 End: 10-21-2024 Patient encounter procedure 10/21/2024 7:45 AM EDT Office Visit [facility] [address] [place] [address] lab [facility] Comment on above: lab Start: 10-07-2024 DIABETES SCREEN DIABETES SCREEN [facility] Start: 09-16-2024 End: 09-16-2024 Patient encounter procedure 09/16/2024 7:45 AM EDT Office Visit [facility] [address] [place] [address] lab [facility] Comment on above: lab Start: 09-13-2024 DIABETES SCREEN DIABETES SCREEN [facility] Start: 09-10-2024 Hepatitis B surface antibody level LDL Cholesterol [facility] Start: 08-13-2024 LIPID SCREEN LIPID SCREEN [facility] Start: 08-12-2024 DIABETES SCREEN DIABETES SCREEN [facility] Start: 08-12-2024 End: 08-12-2024 Patient encounter procedure 08/12/2024 7:45 AM EDT Office Visit [facility] [address] [place] [address] lab [facility] Comment on above: lab Start: 07-29-2024 DIABETES SCREEN DIABETES SCREEN [facility] Start: 07-15-2024 End: 07-15-2024 Patient encounter procedure 07/15/2024 7:45 AM EDT Office Visit [facility] [address] [place] [address] lab [facility] Comment on above: lab Start: 07-07-2024 DIABETES SCREEN DIABETES SCREEN [facility] Start: 07-01-2024 End: 07-01-2024 Patient encounter procedure 07/01/2024 7:45 AM EDT Office Visit [facility] [address] [place] [address] lab [facility] Comment on above: lab Start: 06-29-2024 DIABETES SCREEN DIABETES SCREEN [facility] Start: 06-17-2024 End: 06-17-2024 Patient encounter procedure 06/17/2024 7:45 AM EDT Office Visit [facility] [address] [place] [address] lab [facility] Comment on above: lab Start: 06-10-2024 DIABETES SCREEN DIABETES SCREEN [facility] Start: 06-03-2024 End: 06-03-2024 Patient encounter procedure 06/03/2024 7:45 AM EST Office Visit [facility] [address] [place] [address] lab [facility] Comment on above: lab Start: 2024 Advance Directive Discussion Advance Directive Discussion [facility] Start: 05-23-2024 Hepatitis B surface antibody level LDL Cholesterol [facility] Start: 05-20-2024 End: 05-20-2024 Patient encounter procedure 05/20/2024 7:45 AM EST Office Visit [facility] [address] [place] [address] lab [facility] Comment on above: lab Start: 05-06-2024 End: 05-06-2024 Patient encounter procedure 05/06/2024 8:00 AM EST Office Visit [facility] [address] [place] [address] lab [facility] Comment on above: lab Start: 04-22-2024 End: 04-22-2024 Patient encounter procedure 04/22/2024 8:15 AM EST Office Visit [facility] [address] [place] [address] lab [facility] Comment on above: lab Start: 04-08-2024 End: 04-08-2024 Patient encounter procedure 04/08/2024 9:00 AM EST Office Visit [facility] [address] [place] [address] lab [facility] Comment on above: lab Start: 04-03-2024 Medicare Advantage Annual Wellness Visit Medicare Advantage Annual Wellness Visit [facility] Start: 03-25-2024 End: 03-25-2024 Patient encounter procedure 03/25/2024 7:45 AM EST Office Visit [facility] [address] [place] [address] lab [facility] Comment on above: lab Start: 03-11-2024 End: 03-11-2024 Patient encounter procedure 03/11/2024 7:45 AM EST Office Visit [facility] [address] [place] [address] lab [facility] Comment on above: lab Start: 02-26-2024 End: 02-26-2024 Patient encounter procedure 02/26/2024 8:00 AM EST Office Visit [facility] [address] [place] [address] lab [facility] Comment on above: lab Start: 02-12-2024 End: 02-12-2024 Patient encounter procedure 02/12/2024 8:15 AM EST Office Visit [facility] [address] [place] [address] labs [facility] Comment on above: labs Start: 02-07-2024 End: 03-07-2025 US.doppler Abdominal vessels US ABD LIVER VASCULAR Radiology STAT Elevated LFTs Expected: 02/07/2024, Expires: 03/07/2025 [facility] Comment on above: Expected: 02/07/2024, Expires: Start: 02-07-2024 End: 03-07-2025 US.doppler Unspecified body region US DOPPLER COMPLETE Radiology STAT Elevated LFTs Expected: 02/07/2024, Expires: 03/07/2025 [facility] Comment on above: Expected: 02/07/2024, Expires: Start: 02-07-2024 End: 02-07-2024 Admission to same day surgery center 02/07/2024 11:00 AM EST - 02/07/2024 12:00 PM EST Surgery Angio [address] [place] [address] Britton Mack MD [address] [place] [address] PERCUTANEOUS NEEDLE BIOPSY OF LIVER Angio Comment on above: PERCUTANEOUS NEEDLE BIOPSY OF LIVER Start: 02-07-2024 End: 02-07-2024 Biopsy liver needle percutaneous PERCUTANEOUS NEEDLE BIOPSY OF LIVER Elevated LFTs 02/07/2024 11:00 AM EST [facility] Start: 02-07-2024 Subsequent hospital visit by physician 02/07/2024 11:00 AM EST Hospital Encounter Angio [address] [place] [address] Brtiton Makc MD [address] [place] [address] Elevated LFTs [R79.89] Angio Comment on above: Elevated LFTs [R79.89] Start: 02-07-2024 End: 02-07-2024 Patient encounter procedure 02/07/2024 8:30 AM EST Appointment Radiology [address] [address] 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 4] Start: 02-06-2024 End: 05-07-2024 PT panel - Platelet poor plasma by Coagulation assay PROTHROMBIN TIME Lab STAT At risk for bleeding Expected: 02/06/2024, Expires: 05/07/2024 [facility] Comment on above: Expected: 02/06/2024, Expires: Start: 02-05-2024 End: 02-05-2024 Patient encounter procedure 02/05/2024 7:45 AM EST Office Visit [facility] [address] [place] [address] lab [facility] Comment on above: lab Start: 01-29-2024 End: 01-29-2024 Patient encounter procedure 01/29/2024 7:45 AM EDT Office Visit [facility] [address] [place] [address] labs [facility] Comment on above: labs Start: 12-03-2023 Covid-19 Vaccine () Covid-19 Vaccine () [facility] Start: 12-03-2023 Influenza vaccination [facility] Start: 11-15-2023 Hepatitis B surface antibody level LDL CHOLESTEROL [facility] Start: 08-09-2023 Hepatitis B surface antibody level LDL CHOLESTEROL [facility] Start: 07-12-2023 BP CONTROLLED (<130/80) BP CONTROLLED (<130/80) [facility] Start: 07-05-2023 Hepatitis B surface antibody level LDL CHOLESTEROL [facility] Start: 06-16-2023 BP CONTROLLED (<130/80) BP CONTROLLED (<130/80) [facility] Start: 05-31-2023 BP CONTROLLED (<130/80) BP CONTROLLED (<130/80) [facility] Start: 05-27-2023 BP CONTROLLED (<130/80) BP CONTROLLED (<130/80) [facility] Start: 05-25-2023 BP CONTROLLED (<130/80) BP CONTROLLED (<130/80) [facility] Start: 05-18-2023 BP CONTROLLED (<130/80) BP CONTROLLED (<130/80) [facility] Start: 05-16-2023 Hepatitis B surface antibody level LDL CHOLESTEROL [facility] Start: 04-29-2023 Hepatitis B surface antibody level LDL CHOLESTEROL [facility] Start: 04-03-2023 Behavioral Health Screening Behavioral Health Screening [facility] Start: 04-03-2023 Depression Assessment Depression Assessment [facility] Start: 02-11-2023 BP CONTROLLED (<130/80) BP CONTROLLED (<130/80) [facility] Start: 02-10-2023 BP CONTROLLED (<130/80) BP CONTROLLED (<130/80) [facility] Start: 12-29-2022 Influenza vaccination LUNG CANCER SCREENING [facility] Start: 12-29-2022 Screening for malignant neoplasm of lung Lung Cancer Screening [facility] Start: 12-02-2022 Covid-19 Vaccine () Covid-19 Vaccine () [facility] Start: 12-02-2022 Influenza vaccination [facility] Start: 11-29-2022 BP CONTROLLED (<130/80) BP CONTROLLED (<130/80) [facility] Start: 11-17-2022 End: 12-14-2023 Dup-scan artl grey abdl/pel/scrot&/rpr orgn com US DOPPLER COMPLETE Radiology HUSSEIN Liver replaced by transplant (HCC) Expected: 11/17/2022, Expires: 12/14/2023 [facility] Work Phone: Comment on above: Expected: 11/17/2022, Expires: 4 Start: 11-17-2022 End: 12-14-2023 US ABD LIVER VASCULAR US ABD LIVER VASCULAR Radiology HUSSEIN Liver replaced by transplant (HCC) Expected: 11/17/2022, Expires: 12/14/2023 [facility] Work Phone: Comment on above: Expected: 11/17/2022, Expires: 4 Start: 11-11-2022 BP CONTROLLED (<130/80) BP CONTROLLED (<130/80) [facility] Start: 10-17-2022 End: 12-17-2022 PT panel - Platelet poor plasma by Coagulation assay PROTHROMBIN TIME/PT Lab Routine Research subject Liver replaced by transplant (HCC) Expected: 10/17/2022 (Approximate), Expires: 12/17/2022 [facility] Work Phone: Comment on above: Expected: 10/17/2022 (Approximate), Expi res: 12/17/2022 Start: 10-07-2022 BP CONTROLLED (<130/80) BP CONTROLLED (<130/80) [facility] Start: 07-27-2022 End: 09-26-2022 PHOSPHATIDYLETHANOL (PETH) [facility] Work Phone: Comment on above: Expected: 07/27/2022, Expires: 3 Start: 07-12-2022 End: 09-11-2022 25-hydroxyvitamin D3 [Mass/volume] in Serum or Plasma VITAMIN D 25 HYDROXY Lab Routine Vitamin D deficiency Expected: 07/12/2022, Expires: 09/11/2022 [facility] Work Phone: Comment on above: Expected: 07/12/2022, Expires: 3 Start: 06-25-2022 COVID-19 VACCINE (9 - Mixed Product risk series) COVID-19 VACCINE (9 - Mixed Product risk series) [facility] Start: 06-24-2022 End: 06-26-2023 Us scrotum & contents US SCROTUM AND CONTENTS Radiology Routine Scrotal swelling Liver transplant recipient (HCC) Expected: 06/24/2022 (Approximate), Expires: 06/26/2023 [facility] Work Phone: Comment on above: Expected: 06/24/2022 (Approximate), Expi res: 06/26/2023 Start: 06-13-2022 End: 08-13-2022 Hepatitis B virus DNA [Units/volume] in Serum HEP B VIRAL DNA ROD Lab Routine Exposure to hepatitis B Expected: 06/13/2022, Expires: 08/13/2022 [facility] Work Phone: Comment on above: Expected: 06/13/2022, Expires: 3 Start: 06-13-2022 End: 08-13-2022 Hepatitis C virus RNA [Units/volume] (viral load) in Serum or Plasma by JAIME with probe detection HCV QUANT RNA BY PCR Lab Routine Exposure to hepatitis C Expected: 06/13/2022, Expires: 08/13/2022 [facility] Work Phone: Comment on above: Expected: 06/13/2022, Expires: 3 Start: 06-13-2022 End: 08-13-2022 HIV 1 RNA [#/volume] (viral load) in Serum or Plasma by JAIME with probe detection HIV RNA VIRAL LOAD Lab Routine Exposure to HIV Expected: 06/13/2022, Expires: 08/13/2022 [facility] Work Phone: Comment on above: Expected: 06/13/2022, Expires: 3 Start: 05-30-2022 End: 07-30-2022 PT panel - Platelet poor plasma by Coagulation assay PROTHROMBIN TIME/PT Lab Routine Research study patient Liver replaced by transplant (HCC) Expected: 05/30/2022, Expires: 07/30/2022 [facility] Work Phone: Comment on above: Expected: 05/30/2022, Expires: 3 Start: 05-27-2022 End: 07-27-2022 Ilcme-[id number] [Mass/volume] in Serum or Plasma [facility] Work Phone: Comment on above: Expected: 05/27/2022, Expires: 3 Start: 05-27-2022 End: 07-27-2022 Choriogonadotropin.beta subunit [Units/volume] in Serum or Plasma [facility] Work Phone: Comment on above: Expected: 05/27/2022, Expires: 3 Start: 05-27-2022 End: 07-27-2022 Lactate dehydrogenase [Enzymatic activity/volume] in Serum or Plasma [facility] Work Phone: Comment on above: Expected: 05/27/2022, Expires: 3 Start: 05-17-2022 Adult depression screening assessment DEPRESSION SCREENING [facility] Start: 04-27-2022 End: 04-27-2023 LIVER REC HLA AB SCREEN LIVER REC HLA AB SCREEN ALLOGEN Routine 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) Expected: 04/27/2022, Expires: 04/27/2023 [facility] Work Phone: Comment on above: Expected: 04/27/2022, Expires: 4 Start: 04-22-2022 [facility] Start: 04-15-2022 BP CONTROLLED (<130/80) BP CONTROLLED (<130/80) [facility] Start: 04-13-2022 End: 06-13-2022 Ferritin [Mass/volume] in Serum or Plasma FERRITIN BLD Lab Routine Iron deficiency anemia, unspecified iron deficiency anemia type Expected: 04/13/2022, Expires: 06/13/2022 [facility] Work Phone: Comment on above: Expected: 04/13/2022, Expires: 3 Start: 04-13-2022 End: 06-13-2022 Iron and Iron binding capacity panel - Serum or Plasma IRON + TIBC Lab Routine Iron deficiency anemia, unspecified iron deficiency anemia type Expected: 04/13/2022, Expires: 06/13/2022 [facility] Work Phone: Comment on above: Expected: 04/13/2022, Expires: 3 Start: 04-13-2022 End: 06-13-2022 Lipid 1996 panel - Serum or Plasma LIPID PANEL BASIC Lab Routine Cirrhosis of liver with ascites, unspecified hepatic cirrhosis type (HCC) Expected: 04/13/2022, Expires: 06/13/2022 [facility] Work Phone: Comment on above: Expected: 04/13/2022, Expires: 3 Start: 04-13-2022 End: 06-13-2022 Thyrotropin [Units/volume] in Serum or Plasma TSH BLD Lab Routine Cirrhosis of liver with ascites, unspecified hepatic cirrhosis type (HCC) Expected: 04/13/2022, Expires: 06/13/2022 [facility] Work Phone: Comment on above: Expected: 04/13/2022, Expires: 3 Start: 04-03-2022 DEPRESSION ASSESSMENT DEPRESSION ASSESSMENT [facility] Start: 02-11-2022 End: 04-13-2022 Magnesium [Mass/volume] in Serum or Plasma MAGNESIUM BLD Lab Routine Cirrhosis of liver with ascites, unspecified hepatic cirrhosis type (HCC) Expected: 02/11/2022, Expires: 04/13/2022 [facility] Work Phone: Comment on above: Expected: 02/11/2022, Expires: 3 Start: 02-11-2022 End: 04-13-2022 Phosphate [Mass/volume] in Serum or Plasma PHOSPHORUS INORGANIC Lab Routine Cirrhosis of liver with ascites, unspecified hepatic cirrhosis type (HCC) Expected: 02/11/2022, Expires: 04/13/2022 [facility] Work Phone: Comment on above: Expected: 02/11/2022, Expires: 3 Start: 02-11-2022 End: 04-13-2022 Retinol [Mass/volume] in Serum or Plasma VITAMIN A/RETINOL Lab Routine Cirrhosis of liver with ascites, unspecified hepatic cirrhosis type (HCC) Vitamin A deficiency Expected: 02/11/2022, Expires: 04/13/2022 [facility] Work Phone: Comment on above: Expected: 02/11/2022, Expires: 3 Start: 02-11-2022 End: 04-13-2022 Zinc [Mass/volume] in Serum or Plasma ZINC BLD Lab Routine Cirrhosis of liver with ascites, unspecified hepatic cirrhosis type (HCC) Hepatic encephalopathy Expected: 02/11/2022, Expires: 04/13/2022 [facility] Work Phone: Comment on above: Expected: 02/11/2022, Expires: 3 Start: 01-27-2022 End: 02-12-2023 SPIROMETRY WITH DILATOR IF OBSTRUCTED SPIROMETRY WITH DILATOR IF OBSTRUCTED PFT Routine Chronic rhinitis Pneumonia of right lower lobe due to infectious organism Expected: 01/27/2022, Expires: 02/12/2023 [facility] Work Phone: Comment on above: Expected: 01/27/2022, Expires: 3 Start: 01-19-2022 End: 03-21-2022 aPTT in Platelet poor plasma by Coagulation assay ACTIVATED PTT Lab Routine Preoperative examination Unilateral inguinal hernia without obstruction or gangrene, recurrence not specified Expected: 01/19/2022, Expires: 03/21/2022 [facility] Work Phone: Comment on above: Expected: 01/19/2022, Expires: 2 Start: 01-19-2022 End: 03-21-2022 CBC W Auto Differential panel - Blood CBC + DIFF Lab Routine Preoperative examination Unilateral inguinal hernia without obstruction or gangrene, recurrence not specified Expected: 01/19/2022, Expires: 03/21/2022 [facility] Work Phone: Comment on above: Expected: 01/19/2022, Expires: 2 Start: 01-19-2022 End: 03-21-2022 PT panel - Platelet poor plasma by Coagulation assay PROTHROMBIN TIME/PT Lab Routine Preoperative examination Unilateral inguinal hernia without obstruction or gangrene, recurrence not specified Expected: 01/19/2022, Expires: 03/21/2022 [facility] Work Phone: Comment on above: Expected: 01/19/2022, Expires: 2 Start: 01-19-2022 End: 10-18-2022 SARS-CoV-2 (COVID-19) RNA [Presence] in Respiratory specimen by JAIME with probe detection PRE-PROCEDURE & PRE-OPERATIVE COVID Microbiology Routine Preoperative examination Unilateral inguinal hernia without obstruction or gangrene, recurrence not specified Expected: 01/19/2022, Expires: 10/18/2022 [facility] Work Phone: Comment on above: Expected: 01/19/2022, Expires: 3 Start: 01-19-2022 End: 03-21-2022 TYPE AND SCREEN,30 DAY TYPE AND SCREEN,30 DAY Blood Bank Routine Preoperative examination Unilateral inguinal hernia without obstruction or gangrene, recurrence not specified Expected: 01/19/2022, Expires: 03/21/2022 [facility] Work Phone: Comment on above: Expected: 01/19/2022, Expires: 2 Start: 01-10-2022 End: 01-10-2023 aPTT in Platelet poor plasma by Coagulation assay ACTIVATED PTT Lab Routine Preoperative examination Unilateral inguinal hernia without obstruction or gangrene, recurrence not specified Expected: 01/10/2022, Expires: 01/10/2023 [facility] Work Phone: Comment on above: Expected: 01/10/2022, Expires: 3 Start: 01-10-2022 End: 03-12-2022 CBC W Auto Differential panel - Blood CBC + DIFF Lab Routine Preoperative examination Unilateral inguinal hernia without obstruction or gangrene, recurrence not specified Expected: 01/10/2022 (Approximate), Expires: 03/12/2022 [facility] Work Phone: Comment on above: Expected: 01/10/2022 (Approximate), Expi res: 03/12/2022 Start: 01-10-2022 End: 01-10-2023 Comprehensive metabolic 2000 panel - Serum or Plasma COMP METABOLIC PANEL Lab Routine Preoperative examination Unilateral inguinal hernia without obstruction or gangrene, recurrence not specified Expected: 01/10/2022, Expires: 01/10/2023 [facility] Work Phone: Comment on above: Expected: 01/10/2022, Expires: 3 Start: 01-10-2022 End: 01-10-2023 PT panel - Platelet poor plasma by Coagulation assay PROTHROMBIN TIME/PT Lab Routine Preoperative examination Unilateral inguinal hernia without obstruction or gangrene, recurrence not specified Expected: 01/10/2022, Expires: 01/10/2023 [facility] Work Phone: Comment on above: Expected: 01/10/2022, Expires: 3 Start: 01-10-2022 End: 01-10-2023 TYPE AND SCREEN,30 DAY TYPE AND SCREEN,30 DAY Blood Bank Routine Preoperative examination Unilateral inguinal hernia without obstruction or gangrene, recurrence not specified Expected: 01/10/2022, Expires: 01/10/2023 [facility] Work Phone: Comment on above: Expected: 01/10/2022, Expires: 3 Start: 12-02-2021 Influenza vaccination INFLUENZA (#1) [facility] Start: 10-18-2021 End: 10-18-2022 LIVER REC HLA AB SCREEN LIVER REC HLA AB SCREEN ALLOGEN Routine 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) Expected: 10/18/2021, Expires: 10/18/2022 [facility] Work Phone: Comment on above: Expected: 10/18/2021, Expires: 3 Start: 10-10-2021 COVID-19 VACCINE (5 - Booster) COVID-19 VACCINE (5 - Booster) [facility] Start: 10-07-2021 End: 12-07-2021 Comprehensive metabolic 2000 panel - Serum or Plasma [facility] Work Phone: Comment on above: Expected: 10/07/2021, Expires: 2 Start: 07-17-2021 End: 09-16-2021 ZINC BLD ZINC BLD Lab Routine Hepatic encephalopathy (HCC) Expected: 07/17/2021, Expires: 09/16/2021 [facility] Work Phone: Comment on above: Expected: 07/17/2021, Expires: 2 Start: 06-18-2021 COVID-19 VACCINE (4 - Booster) COVID-19 VACCINE (4 - Booster) [facility] Start: 06-18-2021 Influenza vaccination LUNG CANCER SCREENING [facility] Start: 04-03-2021 DEPRESSION ASSESSMENT DEPRESSION ASSESSMENT [facility] Start: 09-09-2020 PNEUMOCOCCAL (2 - PPSV23 if available, else PCV20) PNEUMOCOCCAL (2 - PPSV23 if available, else PCV20) [facility] Start: 09-09-2020 PNEUMOCOCCAL (2 - PPSV23 or PCV20) PNEUMOCOCCAL (2 - PPSV23 or PCV20) [facility] Start: 08-13-2020 Hepatitis B surface antibody level LDL CHOLESTEROL [facility] Start: 11-05-2019 PNEUMOCOCCAL (2 - PPSV23 if available, else PCV20) PNEUMOCOCCAL (2 - PPSV23 if available, else PCV20) [facility] Start: 11-05-2019 PNEUMOCOCCAL (2 - PPSV23 or PCV20) PNEUMOCOCCAL (2 - PPSV23 or PCV20) [facility] Start: 11-05-2019 Pneumococcal vaccination [facility] Start: 11-05-2019 Pneumococcal Vaccine: 50+ (2 of 2 - PPSV23) Pneumococcal Vaccine: 50+ (2 of 2 - PPSV23) [facility] Start: 11-05-2019 Pneumococcal Vaccine: 50+ (2 of 2 - PPSV23, PCV20, or PCV21) Pneumococcal Vaccine: 50+ (2 of 2 - PPSV23, PCV20, or PCV21) [facility] Start: 2019 RSV Vaccine (1 - 1-dose 60+ series) RSV Vaccine (1 - 1-dose 60+ series) [facility] Start: 2019 RSV Vaccine (1 - Risk 60-74 years 1-dose series) RSV Vaccine (1 - Risk 60-74 years 1-dose series) [facility] Start: 2009 SHINGRIX VACCINE (1 of 2) SHINGRIX VACCINE (1 of 2) [facility] Start: 2004 COLOGUARD (FIT-DNA) COLOGUARD (FIT-DNA) [facility] Start: [address] COLONOGRAPHY [facility] Start: 2004 FECAL OCCULT BLOOD FECAL OCCULT BLOOD [facility] Start: 2004 Screening for malignant neoplasm of colon [facility] Start: 2004 SIGMOIDOSCOPY SIGMOIDOSCOPY [facility] Start: 1989 Zoledronic acid therapy ALPHA-1 ANTITRYPSIN DEFICIENCY SCREENING [facility] Start: 1978 SHINGRIX VACCINE (1 of 2) SHINGRIX VACCINE (1 of 2) [facility] Start: 1978 TWO PNEUMOVAX 5 YEARS APART PRIOR TO AGE 65 (#1) TWO PNEUMOVAX 5 YEARS APART PRIOR TO AGE 65 (#1) [facility] Start: 1977 ANNUAL PCP TEAM CHRONIC DISEASE VISIT ANNUAL PCP TEAM CHRONIC DISEASE VISIT [facility] Start: 1977 Anxiety Screening Anxiety Screening [facility] Start: 1977 BP CONTROLLED (<130/80) BP CONTROLLED (<130/80) [facility] in Start: 1977 Depression Screening Depression Screening [facility] Start: 1959 Abdominal aortic aneurysm screening Abdominal Aortic Aneurysm Screening [facility] Start: 1959 Dental Oral Exam Dental Oral Exam [facility] Start: 1959 Dental Perio Probing Dental Perio Probing [facility] Start: 1959 Dental Prophylaxis Dental Prophylaxis [facility] Start: 1959 Dental X-Ray: Bitewings Dental X-Ray: Bitewings [facility] Start: 1959 Dental X-Ray: FMX/Kessler Dental X-Ray: FMX/Kessler [facility] Start: 1959 Periodontal Maintenance Periodontal Maintenance [facility] End: 02-11-2023 25-hydroxyvitamin D3 [Mass/volume] in Serum or Plasma VITAMIN D 25 HYDROXY Lab Routine Cirrhosis of liver with ascites, unspecified hepatic cirrhosis type (HCC) Vitamin D deficiency Every 3 months for 4 Occurrences starting 02/11/2022 until 02/11/2023 [facility] Work Phone: Comment on above: Every 3 months for 4 Occurrences startin g 02/11/2022 until 02/11/2023 End: 06-29-2022 Abdom paracentesis dx/ther w/imaging guidance ABDOM PARACENTESIS DX/THER W IMAGING GUIDANCE Endoscopy Routine Other ascites Once per week for 52 Occurrences starting 06/29/2021 until 06/29/2022 [facility] Work Phone: Comment on above: Once per week for 52 Occurrences startin g 06/29/2021 until 06/29/2022 Abdom paracentesis d x/ther w/imaging guidance IMAGING GUIDED PARACENTESIS Radiology Routine Unilateral inguinal hernia without obstruction or gangrene, recurrence not specified Ordered: 03/17/2022 [facility] Work Phone: Comment on above: Ordered: 03/17/2022 End: 03-17-2023 Abdom paracentesis dx/ther w/imaging guidance ABDOM PARACENTESIS DX/THER W IMAGING GUIDANCE Endoscopy Routine Cirrhosis of liver with ascites, unspecified hepatic cirrhosis type (HCC) Once per week for 52 Occurrences starting 03/17/2022 until 03/17/2023 [facility] Work Phone: Comment on above: Once per week for 52 Occurrences startin g 03/17/2022 until 03/17/2023 ALLOGEN HLA-AB SUM RPT ALLOGEN H LA-AB SUM RPT Lab Routine 04/29/2022 9:46 AM [facility] End: 02-11-2023 [id number] [Mass/volume] in Serum or Plasma ALPHA FETOPROTEIN BL Lab Routine Cirrhosis of liver with ascites, unspecified hepatic cirrhosis type (HCC) Every 6 months for 2 Occurrences starting 02/11/2022 until 02/11/2023 [facility] Work Phone: Comment on above: Every 6 months for 2 Occurrences startin g 02/11/2022 until 02/11/2023 Bacteria identified in Body fluid by Culture BODY FLUID CULTURE AND GRAM STAIN Microbiology Routine Other ascites Cirrhosis of liver with ascites, unspecified hepatic cirrhosis type (HCC) 03/22/2022 9:12 AM [facility] Work Phone: Bacteria identified in Unspecified specimen by Anaerobe culture [facility] Work Phone: Comment on above: Release Upon Ordering for 1 Occurrences starting 03/22/2022 End: 02-11-2023 Basic metabolic 2000 panel - Serum or Plasma BASIC METABOLIC PNL Lab Routine Cirrhosis of liver with ascites, unspecified hepatic cirrhosis type (HCC) Once per week for 52 Occurrences starting 02/11/2022 until 02/11/2023 [facility] Work Phone: Comment on above: Once per week for 52 Occurrences startin g 02/11/2022 until 02/11/2023 Biopsy liver needle percutaneous IMAGING GUIDED BIOPSY LIVER Radiology HUSSEIN Liver replaced by transplant (HCC) Ordered: 11/15/2022 [facility] Work Phone: Comment on above: Ordered: 11/15/2022 End: 02-11-2023 CBC W Auto Differential panel - Blood CBC + DIFF Lab Routine Cirrhosis of liver with ascites, unspecified hepatic cirrhosis type (HCC) Once per week for 52 Occurrences starting 02/11/2022 until 02/11/2023 [facility] Work Phone: Comment on above: Once per week for 52 Occurrences startin g 02/11/2022 until 02/11/2023 End: 05-13-2023 CBC W Auto Differential panel - Blood CBC + DIFF Lab Routine Liver replaced by transplant (HCC) 2x per week for 100 Occurrences starting 05/13/2022 until 05/13/2023 [facility] Work Phone: Comment on above: 2x per week for 100 Occurrences starting 05/13/2022 until 05/13/2023 End: 04-08-2025 CBC W Auto Differential panel - Blood COMPLETE BLOOD COUNT AND DIFFERENTIAL Lab Routine Liver replaced by transplant (HCC) Every other week for 50 Occurrences starting 04/08/2024 until 04/08/2025 [facility] Work Phone: Comment on above: Every other week for 50 Occurrences star ting 04/08/2024 until 04/08/2025 End: 05-13-2023 CMV DNA DETECTION AND QUANT CMV DNA DETECTION AND QUANT Lab Routine Liver replaced by transplant (HCC) Once per week for 50 Occurrences starting 05/13/2022 until 05/13/2023 [facility] Work Phone: Comment on above: Once per week for 50 Occurrences startin g 05/13/2022 until 05/13/2023 End: 05-13-2023 Comprehensive metabolic 2000 panel - Serum or Plasma COMP METABOLIC PANEL Lab Routine Liver replaced by transplant (HCC) 2x per week for 100 Occurrences starting 05/13/2022 until 05/13/2023 [facility] Work Phone: Comment on above: 2x per week for 100 Occurrences starting 05/13/2022 until 05/13/2023 End: 04-08-2025 Comprehensive metabolic 2000 panel - Serum or Plasma COMPREHENSIVE METABOLIC PANEL Lab Routine Liver replaced by transplant (HCC) Every other week for 50 Occurrences starting 04/08/2024 until 04/08/2025 [facility] Comment on above: Every other week for 50 Occurrences star ting 04/08/2024 until 04/08/2025 End: 04-17-2023 Ct abdomen & pelvis w/o contrast material CT ABD/PEL WO IVCON Radiology Routine Unilateral inguinal hernia without obstruction or gangrene, recurrence not specified 1 Occurrences starting 03/17/2022 until 04/17/2023 [facility] Work Phone: Comment on above: 1 Occurrences starting 03/17/2022 until 04/17/2023 End: 08-12-2023 Ct abdomen & pelvis w/o contrast material CT ABD/PEL WO IVCON Radiology Routine Unilateral inguinal hernia without obstruction or gangrene, recurrence not specified 1 Occurrences starting 07/13/2022 until 08/12/2023 [facility] Work Phone: Comment on above: 1 Occurrences starting 07/13/2022 until 08/12/2023 End: 05-13-2023 Ct abdomen w/contrast material CT LIVER W IVCON Radiology Routine Cirrhosis of liver with ascites, unspecified hepatic cirrhosis type (HCC) 1 Occurrences starting 04/13/2022 until 05/13/2023 [facility] Work Phone: Comment on above: 1 Occurrences starting 04/13/2022 until 05/13/2023 End: 08-06-2022 Ct thorax w/o contrast material CT CHEST WO IVCON Radiology Routine Lung nodules 1 Occurrences starting 07/07/2021 until 08/06/2022 [facility] Work Phone: Comment on above: 1 Occurrences starting 07/07/2021 until 08/06/2022 CYTOLOGY NON-CREDIT SUPPORT COUNSELOR [facility] Work Phone: Comment on above: Release Upon Ordering for 1 Occurrences starting 03/22/2022, 1 completed End: 08-11-2022 Dup-scan artl grey abdl/pel/scrot&/rpr orgn com US DOPPLER COMPLETE Radiology Routine Cirrhosis of liver with ascites, unspecified hepatic cirrhosis type (HCC) 1 Occurrences starting 07/12/2021 until 08/11/2022 [facility] Work Phone: Comment on above: 1 Occurrences starting 07/12/2021 until 08/11/2022 End: 05-12-2023 Dup-scan artl grey abdl/pel/scrot&/rpr orgn com US DOPPLER COMPLETE Radiology Routine Cirrhosis of liver with ascites, unspecified hepatic cirrhosis type (HCC) 1 Occurrences starting 07/13/2021 until 08/12/2022 [facility] Work Phone: Comment on above: 1 Occurrences starting 07/13/2021 until 08/12/2022 End: 10-18-2022 ECG COMPLETE ECG COMPLETE ECG Routine Preoperative examination Unilateral inguinal hernia without obstruction or gangrene, recurrence not specified 1 Occurrences starting 10/19/2021 until 10/18/2022 [facility] Work Phone: Comment on above: 1 Occurrences starting 10/19/2021 until 10/18/2022 End: 11-11-2022 ECG COMPLETE ECG COMPLETE ECG Routine Preoperative examination Unilateral inguinal hernia without obstruction or gangrene, recurrence not specified 1 Occurrences starting 11/11/2021 until 11/11/2022 [facility] Work Phone: Comment on above: 1 Occurrences starting 11/11/2021 until 11/11/2022 ECG COMPLETE ECG COMPLETE ECG 11/11/2021 9:26 AM EDT [facility] End: 01-10-2023 ECG COMPLETE ECG COMPLETE ECG Routine Preoperative examination Unilateral inguinal hernia without obstruction or gangrene, recurrence not specified 1 Occurrences starting 01/10/2022 until 01/10/2023 [facility] Work Phone: Comment on above: 1 Occurrences starting 01/10/2022 until 01/10/2023 End: 05-13-2023 Gamma glutamyl transferase [Enzymatic activity/volume] in Serum or Plasma GGT BLD Lab Routine Liver replaced by transplant (HCC) 2x per week for 100 Occurrences starting 05/13/2022 until 05/13/2023 [facility] Work Phone: Comment on above: 2x per week for 100 Occurrences starting 05/13/2022 until 05/13/2023 End: 04-08-2025 Gamma glutamyl transferase [Enzymatic activity/volume] in Serum or Plasma GGT Lab Routine Liver replaced by transplant (HCC) Every other week for 50 Occurrences starting 04/08/2024 until 04/08/2025 [facility] Comment on above: Every other week for 50 Occurrences star ting 04/08/2024 until 04/08/2025 Guidance for percuta neous biopsy of Liver IMAGING GUIDED BIOPSY LIVER Radiology STAT Elevated LFTs Ordered: 02/06/2024 [facility] Work Phone: Comment on above: Ordered: 02/06/2024 End: 02-11-2023 Hepatic function 2000 panel - Serum or Plasma HEPATIC FUNCTION PNL Lab Routine Cirrhosis of liver with ascites, unspecified hepatic cirrhosis type (HCC) Once per week for 52 Occurrences starting 02/11/2022 until 02/11/2023 [facility] Work Phone: Comment on above: Once per week for 52 Occurrences startin g 02/11/2022 until 02/11/2023 End: 05-13-2023 Lipid 1995 panel - Serum or Plasma LIPID PANEL BASIC Lab Routine Liver replaced by transplant (HCC) Every 3 months for 4 Occurrences starting 05/13/2022 until 05/13/2023 [facility] Work Phone: Comment on above: Every 3 months for 4 Occurrences startin g 05/13/2022 until 05/13/2023 End: 04-08-2025 Lipid 1995 panel - Serum or Plasma LIPID PANEL BASIC Lab Routine Liver replaced by transplant (HCC) Every 6 months for 2 Occurrences starting 04/08/2024 until 04/08/2025 [facility] Comment on above: Every 6 months for 2 Occurrences startin g 04/08/2024 until 04/08/2025 End: 05-13-2023 Magnesium [Mass/volume] in Serum or Plasma MAGNESIUM BLD Lab Routine Liver replaced by transplant (HCC) 2x per week for 100 Occurrences starting 05/13/2022 until 05/13/2023 [facility] Work Phone: Comment on above: 2x per week for 100 Occurrences starting 05/13/2022 until 05/13/2023 Patient Education [facility] Abdo dina Paracentesis [facility] Work Phone: End: 05-13-2023 Phosphate [Mass/volume] in Serum or Plasma PHOSPHORUS INORGANIC Lab Routine Liver replaced by transplant (HCC) 2x per week for 100 Occurrences starting 05/13/2022 until 05/13/2023 [facility] Work Phone: Comment on above: 2x per week for 100 Occurrences starting 05/13/2022 until 05/13/2023 End: 04-08-2025 Phosphate [Mass/volume] in Serum or Plasma PHOSPHORUS INORGANIC Lab Routine Liver replaced by transplant (HCC) Every 6 months for 2 Occurrences starting 04/08/2024 until 04/08/2025 [facility] Comment on above: Every 6 months for 2 Occurrences startin g 04/08/2024 until 04/08/2025 End: 02-11-2023 PT panel - Platelet poor plasma by Coagulation assay PROTHROMBIN TIME/PT Lab Routine Cirrhosis of liver with ascites, unspecified hepatic cirrhosis type (HCC) Once per week for 52 Occurrences starting 02/11/2022 until 02/11/2023 [facility] Work Phone: Comment on above: Once per week for 52 Occurrences startin g 02/11/2022 until 02/11/2023 End: 02-12-2023 Radiologic exam chest 2 views XR CHEST 2V FRONTAL/LAT Radiology Routine Chronic rhinitis Pneumonia of right lower lobe due to infectious organism 1 Occurrences starting 01/13/2022 until 02/12/2023 [facility] Work Phone: Comment on above: 1 Occurrences starting 01/13/2022 until 02/12/2023 REFER FOR ADMIT INTERVIEW REFER FOR ADMIT INTERVIEW Procedures Routine Preoperative examination Unilateral inguinal hernia without obstruction or gangrene, recurrence not specified Ordered: 10/19/2021 [facility] Work Phone: Comment on above: Ordered: 10/19/2021 REFER FOR ADMIT INTERVIEW REFER FOR ADMIT INTERVIEW Procedures Routine Preoperative examination Unilateral inguinal hernia without obstruction or gangrene, recurrence not specified Ordered: 01/10/2022 [facility] Work Phone: Comment on above: Ordered: 01/10/2022 SPIROMETRY WITH DILA TOR IF OBSTRUCTED SPIROMETRY WITH DILATOR IF OBSTRUCTED PFT Routine Chronic rhinitis Pneumonia of right lower lobe due to infectious organism 02/11/2022 12:34 PM EST [facility] Work Phone: End: 05-13-2023 Tacrolimus [Mass/volume] in Blood TACROLIMUS/FK-506 BL Lab Routine Liver replaced by transplant (HCC) 2x per week for 100 Occurrences starting 05/13/2022 until 05/13/2023 [facility] Work Phone: Comment on above: 2x per week for 100 Occurrences starting 05/13/2022 until 05/13/2023 End: 04-08-2025 Tacrolimus [Mass/volume] in Blood TACROLIMUS/FK-506 BL Lab Routine Liver replaced by transplant (HCC) Every other week for 50 Occurrences starting 04/08/2024 until 04/08/2025 [facility] Comment on above: Every other week for 50 Occurrences star ting 04/08/2024 until 04/08/2025 End: 08-11-2022 US ABD LIVER VASCULAR US ABD LIVER VASCULAR Radiology Routine Cirrhosis of liver with ascites, unspecified hepatic cirrhosis type (HCC) 1 Occurrences starting 07/12/2021 until 08/11/2022 [facility] Work Phone: Comment on above: 1 Occurrences starting 07/12/2021 until 08/11/2022 End: 08-12-2022 US ABD LIVER VASCULAR US ABD LIVER VASCULAR Radiology Routine Cirrhosis of liver with ascites, unspecified hepatic cirrhosis type (HCC) 1 Occurrences starting 07/13/2021 until 08/12/2022 [facility] Work Phone: Comment on above: 1 Occurrences starting 07/13/2021 until 08/12/2022 End: 01-19-2023 Us abdominal real time w/image limited US ASCITES SURVEY Radiology Routine Other ascites 1 Occurrences starting 12/20/2021 until 01/19/2023 [facility] Work Phone: Comment on above: 1 Occurrences starting 12/20/2021 until 01/19/2023 End: 02-04-2023 Us abdominal real time w/image limited US ASCITES SURVEY Radiology Routine Cirrhosis of liver with ascites, unspecified hepatic cirrhosis type (HCC) 1 Occurrences starting 01/05/2022 until 02/04/2023 [facility] Work Phone: Comment on above: 1 Occurrences starting 01/05/2022 until 02/04/2023 End: 03-24-2023 Us abdominal real time w/image limited US ASCITES SURVEY Radiology Routine 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) 1 Occurrences starting 02/22/2022 until 03/24/2023 [facility] Work Phone: Comment on above: 1 Occurrences starting 02/22/2022 until 03/24/2023 End: 05-13-2023 Us scrotum & contents US SCROTUM AND CONTENTS Radiology Routine Unilateral inguinal hernia without obstruction or gangrene, recurrence not specified Hydrocele, unspecified hydrocele type 1 Occurrences starting 04/13/2022 until 05/13/2023 [facility] Work Phone: Comment on above: 1 Occurrences starting 04/13/2022 until 05/13/2023 [facility] Immunizations Immunization Date Immunization Notes Care Provider Jb rendon 03-05-2022 influenza, injectabl e, quadrivalent, preservative free Dayna Reyes MD Work Phone: [facility] 03-05-2022 influenza virus vaccine, unspecified formulation [facility] Work Phone: [facility] 02-18-2021 COVID-19 vaccine (UNSPECIFIED) Dayna Reyes MD Work Phone: [facility] Work Phone: 02-18-2021 COVID-19 vaccine, fu ll dose (MODERNA) Dayna Reyes MD Work Phone: [facility] 01-14-2021 Influenza, injectabl e, Madin Elmo Canine Kidney, preservative free, quadrivalent Dayna Reyes MD Work Phone: [facility] 07-13-2020 COVID-19 vaccine (UNSPECIFIED) Dayna Reyes MD Work Phone: [facility] Work Phone: 07-13-2020 COVID-19 vaccine, fu ll dose (MODERNA) Dayna Reyes MD Work Phone: [facility] 06-16-2020 COVID-19 vaccine (UNSPECIFIED) Dayna Reyes MD Work Phone: [facility] Work Phone: 06-16-2020 COVID-19 vaccine, fu ll dose (MODERNA) Dayna Reyes MD Work Phone: [facility] Work Phone: 03-02-2020 Influenza, injectabl e, Madin Elmo Canine Kidney, preservative free, quadrivalent Dayna Reyes MD Work Phone: [facility] 02-26-2020 hepatitis A vaccine, adult dosage Dayna Reyes MD Work Phone: [facility] 09-10-2019 hepatitis A vaccine, adult dosage Dayna Reyes MD Work Phone: [facility] 09-10-2019 pneumococcal conjuga te vaccine, 13 valent Dayna Reyes MD Work Phone: [facility] 09-10-2019 tetanus toxoid, reduced diphtheria toxoid, and acellular pertussis vaccine, adsorbed Dayna Reyes MD Work Phone: [facility] 07-26-2018 Hepatitis B vaccine (recombinant), CpG adjuvanted Dayna Reyes MD Work Phone: [facility] 07-03-2018 Hepatitis B vaccine (recombinant), CpG adjuvanted Dayna Reyes MD Work Phone: [facility] 12-28-2017 influenza, seasonal, injectable Dayna Reyes MD Work Phone: [facility] 01-17-2017 influenza virus vaccine, unspecified formulation Dayna Reyes MD Work Phone: [facility] Payers Date Payer Category Payer Self-pay [id number] 2024 [place] [id number] 2024 Medicare [id number] 2021 Medicare DEVOTED MEDICARE [facility] [id number] 2021-Present [phone] [address] JAYLENE MARADIAGA [address] [facility] [id number] 2021 Medicare [id number] 2020 Unknown [id number] 2017 Unknown [id number] 2009 Unknown [id number] 1959 Unknown [id number]. 2.356 1959 Unknown [id number] [id number]. 2.356 1959 Unknown [id number] [id number]. 2.356 1959 Unknown [id number] [id number]. 2.356 1959 Unknown [id number] [id number]. 2.593 1959 Unknown [id number] 2.16.840.1.354080.3.579. 2.593 1959 Unknown [id number] [id number]. 2.593 1959 Unknown [id number] [id number]. 2.593 Unknown [id number] [id number]. 2.277 Unknown [id number] [id number]. 2.277 Unknown [id number] [id number]. 2.277 Unknown [id number] [id number]. 2.277 Unknown [id number] Unknown HCAP/HFA/FAP Active [id number] Unknown [id number] [id number] Social History Date Type Detail Facility Start: 04-15-2021 End: 04-22-2022 Tobacco smoking status NHIS Ex-smoker [facility] Work Phone: Start: 05-30-1977 End: 04-03-2019 History of tobacco use Current smoker [facility] Work Phone: Start: 05-30-1977 End: 04-03-2019 History of tobacco use Cigarette Smoker [facility] Work Phone: Start: 04-15-2021 End: 08-03-2022 Cigarettes smoked current (pack per day) - Reported 2 [facility] Start: 04-15-2021 End: 07-07-2021 Tobacco use and exposure Former smokeless tobacco user [facility] Work Phone: History of tobacco use Snuff User [facility] Work Phone: Start: 04-21-2021 End: 02-07-2024 Alcohol intake Ex-drinker (finding) [facility] Start: 09-09-2019 History SDOH Alcohol Frequency 1 [facility] Start: 03-30-2021 Tobacco Comment Quite 03/02/2020 [facility] Start: 1960 Sex Assigned At Male [facility] Start: 03-22-2021 End: 03-04-2022 Exposure to SARS-CoV-2 (event) Not sure [facility] Start: 06-01-2021 Tobacco smoking status [facility] Smokes tobacco daily [facility] Work Phone: Start: 09-10-2021 End: 10-19-2021 Exposure to SARS-CoV-2 (event) Unable to assess [facility] Work Phone: Start: 11-11-2021 End: 04-20-2022 Tobacco use and exposure Smokeless tobacco non-user [facility] Start: 11-11-2021 History SDOH Alcohol Comment none since 2018 [facility] Start: 04-03-1979 Tobacco smoking status NHIS Occasional tobacco smoker [facility] Start: 09-09-2019 End: 08-03-2022 Alcohol Use Disorder Identification Test - Consumption [AUDIT-C] [facility] How often to you hav e a drink containing alcohol? Never [facility] Start: 10-13-2014 Average Number of Drinks Not on file [facility] Work Phone: Start: 06-02-2020 Gender identity Identifies as male gender (finding) [facility] Medical Equipment Procedure Code Equipment Code Equipment Origin al Text Equipment Identifier Dates Lens Iol Ultrase rt 20 - [id number] Start: 10-19-2018 Lens Iol Ultrase rt 19.5 - [id number] Start: 11-06-2018 Mesh Srg Pariete ne Pp Macro [id number] X3 - [id number] Start: 09-11-2018 Mesh Parietene Macroporous [id number] Surgical - [id number] Start: 03-04-2022 Start: 05-12-2022 End: 05-27-2022 [...] 03/05/2022 10:37 AM Des Garvey RN No [facility] 03-05-2022 Are you blind, or do you have serious difficulty seeing, even when wearing glasses No 03/05/2022 10:37 AM Des Garvey RN No [facility] 03-05-2022 Do you have serious difficulty walking or climbing stairs No 03/05/2022 10:37 AM Des Garvey RN No [facility] 03-05-2022 Do you have difficul ty dressing or bathing No 03/05/2022 10:37 AM Des Garvey RN No [facility] 03-05-2022 Because of a physica l, mental, or emotional condition, do you have difficulty doing errands alone such as visiting a physician's office or shopping No 03/05/2022 10:37 AM Des Garvey RN No [facility] Mental Status Date Assessment Result Facility 03-05-2022 Because of a physica l, mental, or emotional condition, do you have serious difficulty concentrating, remembering, or making decisions No 03/05/2022 10:37 AM Des Garvey RN No [facility] Clinical Notes 07-03-2018 to 09-16-2024 Result Encounter Note - Kat Leal RN - 09/16/2024 7:55 AM EDTResult Encounter Note - Kat Leal RN - 09/16/2024 7:55 AM EDTSRebecca mullen APRN.[employer]ER - 02/20/2024 11:04 AM EST Note Date & Type Note Facility 09-16-2024 Progress note Formatting of t his note might be different from the original. Lab work reviewed and is consistent with recent lab values. Will continue to monitor labs. Kat Leal RN, BSN Liver Assistant Auto Center Manager [facility] 09-16-2024 Miscellaneous Notes Lab work reviewed and is consistent with recent lab values. Will continue to monitor labs. Kat Leal RN, BSN Liver Assistant Auto Center Manager Lab work reviewed and is consistent with recent lab values. Will continue to monitor labs. Kat Leal RN, BSN Liver Assistant Auto Center Manager documented in this encounter [facility] 09-13-2024 Progress note Formatting of t his note might be different from the original. Lab work reviewed and is consistent with recent lab values. Will continue to monitor labs. Kat Leal RN, BSN Liver Assistant Auto Center Manager [facility] 08-27-2024 Progress note Formatting of t his note might be different from the original. Results reviewed with Rebecca Mascorro, ROMA, no changes at this time. Will continue to monitor labs. Kat Leal RN, BSN [facility] 08-27-2024 Miscellaneous Notes Results reviewed with [...] monitor labs. Kat Leal RN, BSN Liver Assistant Auto Center Manager documented in this encounter [facility] 08-23-2024 Progress note Formatting of t his note might be different from the original. Results reviewed with Diane Vallecillo CNP, no changes at this time. Will continue to monitor labs. Kat Leal RN BSN [facility] 08-23-2024 Progress note Formatting of t his note might be different from the original. Lab work reviewed and is consistent with recent lab values. Will continue to monitor labs. Kat Leal RN, BSN Liver Assistant Auto Center Manager [facility] 08-13-2024 Progress note Formatting of t his note might be different from the original. Results reviewed with Rebecca Mascorro CNP, no changes at this time. Will continue to monitor labs. Kat Leal RN BSN [facility] 08-13-2024 Miscellaneous Notes Results reviewed with Rebecca Mascorro CNP, no changes at this time. Will continue to monitor labs. Kat Leal RN, BSN Results reviewed. No change to the plan of care at this time. documented in this encounter [facility] 08-12-2024 Progress note Formatting of t his note might be different from the original. Results reviewed. No change to the plan of care at this time. [facility] 07-16-2024 Progress note Formatting of t his note might be different from the original. Results reviewed. No change to the plan of care at this time. [facility] 07-16-2024 Miscellaneous Notes Results reviewed. No change to the plan of care at this time. Results reviewed. No change to the plan of care at this time. documented in this encounter [facility] 07-15-2024 Progress note Formatting of t his note might be different from the original. Results reviewed. No change to the plan of care at this time. [facility] 06-18-2024 Progress note Formatting of t his note might be different from the original. Lab work reviewed and is consistent with recent lab values. Will continue to monitor labs. Kat Leal RN, BSN Liver Assistant Auto Center Manager [facility] 06-18-2024 Miscellaneous Notes Lab work reviewed and is consistent with recent lab values. Will continue to monitor labs. Kat Leal RN, BSN Liver Assistant Auto Center Manager Lab work reviewed and is consistent with recent lab values. Will continue to monitor labs. Kat Leal RN BSN Liver Assistant Auto Center Manager Lab work reviewed and is consistent with recent lab values. Will continue to monitor labs. Kat Leal RN BSN Liver Assistant Auto Center Manager documented in this encounter [facility] 06-17-2024 Progress note Formatting of t his note might be different from the original. Lab work reviewed and is consistent with recent lab values. Will continue to monitor labs. Kat Leal RN BSN Liver Assistant Auto Center Manager [facility] 06-17-2024 Progress note Formatting of t his note might be different from the original. Lab work reviewed and is consistent with recent lab values. Will continue to monitor labs. Kat Leal RN BSN Liver Assistant Auto Center Manager [facility] 05-21-2024 Progress note Formatting of t his note might be different from the original. Lab work reviewed and is consistent with recent lab values. Will continue to monitor labs. Kat Leal RN, BSN Liver Assistant Auto Center Manager [facility] 05-21-2024 Miscellaneous Notes Lab work reviewed and is consistent with recent lab values. Will continue to monitor labs. Kat Leal RN BSN Liver Assistant Auto Center Manager Lab work reviewed and is consistent with recent lab values. Will continue to monitor labs. Kat Leal RN, BSN Liver Assistant Auto Center Manager Lab work reviewed and is consistent with recent lab values. Will continue to monitor labs. Kat Leal RN, BSN Liver Assistant Auto Center Manager documented in this encounter [facility] 05-20-2024 Progress note Formatting of t his note might be different from the original. Lab work reviewed and is consistent with recent lab values. Will continue to monitor labs. Kat Leal RN, BSN Liver Assistant Auto Center Manager [facility] 05-20-2024 Progress note Formatting of t his note might be different from the original. Lab work reviewed and is consistent with recent lab values. Will continue to monitor labs. Kat Leal RN, BSN Liver Assistant Auto Center Manager [facility] 03-26-2024 Telephone encounter Note I reviewed [...] electronically send to pharmacy. Kat Leal RN [facility] 03-26-2024 Miscellaneous Notes I reviewed patient's [...] Kat Leal RN documented in this encounter [facility] 03-12-2024 Telephone encounter Note I reviewed [...] electronically send to pharmacy. Kat Leal RN [facility] 03-12-2024 Miscellaneous Notes I reviewed patient's [...] Kat Leal RN documented in this encounter [facility] 11-19-2024 History of Presen t illness Narrative Pathology findings from liver biopsy dated 02/07/24 reviewed at Pathology Conference and shows mild steatosis. No TCMR. . Rebecca Mascorro APRN.CNP February 13, 2024 documented in this encounter [facility] 02-08-2024 Telephone encounter Note I called [...] from there. Kat Leal RN (Cassie), BSN, [facility] Liver Assistant Auto Center Manager [facility] 02-08-2024 Miscellaneous Notes I called and reviewed patient's liver biopsy results with him. Reviewed that there was some mild steatosis, and that he should work on a healthy diet and exercise. He has his labs already scheduled to be drawn on Monday. Told him we would see his lab work Monday and make a plan from there. Kat Leal RN (Cassie), BSN, [facility] Liver Assistant Auto Center Manager documented in this encounter [facility] 02-06-2024 Telephone encounter Note Biopsy scheduled for 02/07/24. Transplant team notified [facility] 02-06-2024 Miscellaneous Notes Biopsy scheduled for [...] TIME: 2:14 PM RADIOLOGY CALL CENTER INTAKE LIBRARY CUSTOMER SERVICE CLERK: daja oliva EXT: na DATE: 1104 TIME: [...] for pathology (For example: send for ER, AL, HER2/tiana or possible lymphoma send in RPMI [...] TO EVALUATE APPROPRIATENESS/FEASIBILITY OF THE REQUEST) IMAGING: [facility] (If the imaging was obtained outside the [facility] system, then it needs to be submitted for review prior to approval.) Note to all persons requesting biopsies: All biopsy requests will be scheduled as quickly as possible, based on the clinical urgency, availability of appointment times, the need to hold anti-thrombolytic therapy (aspirin, blood thinners) and the patient s schedule, including the need for an available tour driver. If a percutaneous biopsy or drainage is not felt to be safe or an alternative method for establishing a diagnosis is possible, this will be discussed directly with the requesting physician. documented in this encounter [facility] 02-06-2024 Telephone encounter Note BX. COORDINATOR [...] DATE: February 06, 2024 TIME: 2:14 PM [facility] 02-06-2024 Telephone encounter Note RADIOLOGY CALL CENTER INTAKE LIBRARY CUSTOMER SERVICE CLERK: daja oliva EXT: new DATE: 1104 TIME: [...] for pathology (For example: send for ER, AL, HER2/tiana or possible lymphoma send in RPMI [...] TO EVALUATE APPROPRIATENESS/FEASIBILITY OF THE REQUEST) IMAGING: [facility] (If the imaging was obtained outside the [facility] system, then it needs to be submitted for review prior to approval.) Note to all persons requesting biopsies: All biopsy requests will be scheduled as quickly as possible, based on the clinical urgency, availability of appointment times, the need to hold anti-thrombolytic therapy (aspirin, blood thinners) and the patient s schedule, including the need for an available tour driver. If a percutaneous biopsy or drainage is not felt to be safe or an alternative method for establishing a diagnosis is possible, this will be discussed directly with the requesting physician. [facility] Work Phone: 02-06-2024 Telephone encounter Note I reviewed patient's elevated LFTs with Rebecca Mascorro CNP, who ordered for patient to have a liver biopsy. I called and reviewed with patient, who stated his understanding and agreement. Reviewed biopsy instructions with patient. Kat Leal RN (Cassie), [place], [facility] Liver Assistant Auto Center Manager [facility] 02-06-2024 Miscellaneous Notes I reviewed patient's elevated LFTs with Rebecca Mascorro CNP, who ordered for patient to have a liver biopsy. I called and reviewed with patient, who stated his understanding and agreement. Reviewed biopsy instructions with patient. Kat Leal RN (Cassie), [place], [facility] Liver Assistant Auto Center Manager documented in this encounter [facility] 02-06-2024 Telephone encounter Note Pts daughter called last night to the [facility] to discuss repeat lab results, noting [...] sooner PRN. Jammie Cantu RN (Molly), BSN, [facility] Liver Assistant Auto Center Manager [facility] 02-06-2024 Miscellaneous Notes [facility]ts [facility], noting [...] sooner PRN. Jammie Cantu RN (Molly), BSN, [facility] Liver Assistant Auto Center Manager documented in this encounter [facility] 01-30-2024 Telephone encounter Note I reviewed patient's slightly elevated LFTs with Rebecca Mascorro CNP, who ordered for patient to repeat lab work on Monday. I called and discussed with patient, who stated his understanding. He'll call back with further questions. Kat Leal (Cassie) RN, BSN, [facility] Liver Assistant Auto Center Manager [facility] 01-30-2024 Miscellaneous Notes I reviewed patient's slightly elevated LFTs with Rebecca Mascorro CNP, who ordered for patient to repeat lab work on Monday. I called and discussed with patient, who stated his understanding. He'll call back with further questions. Kat Leal (Cassie) RN, BSN, [facility] Liver Assistant Auto Center Manager documented in this encounter [facility] 01-16-2024 Telephone encounter Note I reviewed [...] electronically send to pharmacy. Kat Leal RN [facility] 01-16-2024 Miscellaneous Notes I reviewed patient's [...] Kat Leal RN documented in this encounter [facility] 07-12-2023 Miscellaneous Notes Patient's request for medication is as follows: Requested Prescriptions Pending Prescriptions Disp Refills ursodiol (ACTIGALL) 300 mg capsule 60 capsule 11 Sig: Take 1 capsule by mouth two times a day. TAKE ONE(1) CAPSULE DAILY WITH MEALS. Please approve the above prescription(s) to electronically send to pharmacy. Kat Leal RN documented in this encounter [facility] 05-25-2023 Miscellaneous Notes Patient phones requesting refills as follows: Requested Prescriptions Pending Prescriptions Disp Refills sulfamethoxazole-trimethoprim (BACTRIM DS) 800-160 mg per tablet 14 tablet 11 Sig: Take 1 tablet by mouth every Monday, Monday, and Monday. NIKHIL More[place], [facility] Liver Assistant Auto Center Manager Patient phones requesting refills as follows: Requested Prescriptions Pending Prescriptions Disp Refills sulfamethoxazole-trimethoprim (BACTRIM DS) 800-160 mg per tablet 12 tablet 11 Sig: Take 1 tablet by mouth every Monday, Monday, and Monday. Please review and advise. Vandana Styles documented in this encounter [facility] 05-22-2023 Miscellaneous Notes Spoke with patient and discussed that lab orders have . Agreed I will enter new standing lab orders. NIKHIL Moreland, [facility] Liver Assistant Auto Center Manager Jordan called in requesting that Lab orders. Jordan can be reached at [phone]. documented in this encounter [facility] 05-11-2023 Miscellaneous Notes I called and spoke with patient. 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 He stated his understanding. Will provide one [...] request to you. documented in this encounter [facility] 01-17-2023 Miscellaneous Notes Lab work reviewed and is consistent with recent lab values. Will continue to monitor labs. Kat Leal RN, BSN Liver Assistant Auto Center Manager Lab work reviewed and is consistent with recent lab values. Will continue to monitor labs. Kat Leal RN, BSN Liver Assistant Auto Center Manager documented in this encounter [facility] 01-11-2023 Miscellaneous Notes Lab work reviewed and is consistent with recent lab values. Will continue to monitor labs. Kat Leal RN, BSN Liver Assistant Auto Center Manager documented in this encounter [facility] 12-09-2022 Instructions Jane Hernandez PA-C - 12/09/2022 2:11 PM EDT Consult to physical therapy Please follow-up with me in 6 weeks or sooner if symptoms change or worsen. This can be a telephone or virtual visit. Consider injections moving forward. Thank you, Jane Hernandez PA-C [phone] documented in this encounter [facility] 12-09-2022 History of Presen t illness Narrative Images from the original note were not included. SPINE SURGERY OUTPATIENT CONSULT This is an in-person visit. SERVICE DATE: 12/09/2022 PCP: Jordan Azar MD REFERRING PROVIDER: Tiffany Bucio MD [address] [id number] Consult requested for an opinion regarding the [...] 1 tablet by mouth once daily. lancets (Innorange OyTOUCH DELICA PLUS LANCET) 33 gauge Use 1 [...] DATE: December 09, 2022 TIME: 1:49 PM PAGER:[phone] documented in this encounter [facility] 11-20-2022 Miscellaneous Notes Patient called stating he had a liver biopsy on Monday. He took the dressing off today and noted it is red around the site. Denies fever, pain, swelling or drainage. Instructed to continue to monitor and if any of the described symptoms develop, he should notify the office again. NIKHIL More[place], [facility] Liver Assistant Auto Center Manager documented in this encounter [facility] 11-15-2022 History of Presen t illness Narrative C/o Low back pain, left leg pain, difficulty walking, left leg numbness and weakness. 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 Hx of lumbar surgery at [facility]. 2nd opinion - not offered surgery. Lumbar MRI reveals right L5-S1 foraminal stenosis. New Patient appt with me - in person or virtually. Jane Hernandez PA-C Patient name: Jordan Aguilar Are you being referred by a [facility] Spine Health Provider or Pain Management Provider at [facility]? No If answer is YES please schedule directly with surgeon, triage does not need to be completed. Is this a self-referral No If not, who is the Referring Provider TIFFANY [place] office referring the patient to be seen in Neuro Surgery (Dominic Garcia) for Herniation of lumbar intervertebral disc with radiculopathy. Is this a 2nd opinion? Yes Were you offered surgery? No MRI/CT/myelogram within 12 months? Yes If NO , please refer to medical spine or PCP to complete above imaging, triage does not need to be completed If YES, please ask for the name/address of the facility where the MRI/CT/myelogram was completed: [facility] [address] [place] [address] MRI/CT/myelogram viewable in Epic: No If not, please provide [phone] to fax in imaging reports for review. Also, please inform patient to hand carry imaging disc to appointment. XR (spine) within 12 months: Yes If YES, please ask for the name/address of the facility where the XR was completed: [facility] [address] [place] [address] Dr. Gama's patients: Have you had previous [...] the surgery was completed: 2013, Lumbar surgery [facility] [address] [place] [address] Lumbar surgery at [facility] also Additional Comments [phone] documented in this encounter [facility] 11-15-2022 Miscellaneous Notes Biopsy scheduled for [...] 6 hours as needed for pain. lancets ([employer] DELICA PLUS LANCET) 33 gauge Use 1 each as directed to check blood sugar level three times a day blood sugar diagnostic (Cardax PharmaUCH VERIO TEST STRIPS) test strip Use 1 [...] TIME: 8:20 AM RADIOLOGY CALL CENTER INTAKE LIBRARY CUSTOMER SERVICE CLERK: daja oliva EXT: na DATE: 814 TIME: [...] for pathology (For example: send for ER, AL, HER2/tiana or possible lymphoma send in RPMI [...] TO EVALUATE APPROPRIATENESS/FEASIBILITY OF THE REQUEST) IMAGING: [facility] (If the imaging was obtained outside the [facility] system, then it needs to be submitted for review prior to approval.) Note to all persons requesting biopsies: All biopsy requests will be scheduled as quickly as possible, based on the clinical urgency, availability of appointment times, the need to hold anti-thrombolytic therapy (aspirin, blood thinners) and the patient s schedule, including the need for an available tour driver. If a percutaneous biopsy or drainage is not felt to be safe or an alternative method for establishing a diagnosis is possible, this will be discussed directly with the requesting physician. documented in this encounter [facility] 11-15-2022 Miscellaneous Notes Reviewed and approved. Diane Vallecillo CNP I reviewed patient's LFTs with Diane Vallecillo CNP, who ordered for patient to receive liver biopsy. I called and explained this to patient, who stated his understanding. He will call back with questions or as needed. Kat Leal (Cassie) RN, BSN Liver Assistant Auto Center Manager documented in this encounter [facility] 11-07-2022 Miscellaneous Notes I reviewed patient's [...] Kat Leal RN documented in this encounter [facility] 11-01-2022 Evaluation note Encounter Date Diagnosis [...] hepatic coma, unspecified chronicity (ICD-10 - K72.90) [employer] Other 07-31-2023 History of Present illness Narrative* [...] visit. Either the patient or their legal parts counter representative has been informed of the risks [...] 6 hours as needed for pain. lancets ([employer] DELICA PLUS LANCET) 33 gauge Use 1 each as directed to check blood sugar level three times a day blood sugar diagnostic ([employer] VERIO TEST STRIPS) test strip Use 1 [...] presents via phone (soundwould not work on ZoThermalin Diabetes) for his 6 mo post txp follow [...] care coordination (not separately reported) Diane Vallecillo APRN.TIRE CORD WEAVER documented in this encounterSalem [facility]07-[facility]23 Miscellaneous Notes* Result Encounter Note - Kat Leal RN - 10/05/2022 3:42 PM EDT Lab work reviewed and is consistent with recent lab values. Will continue to monitor labs. Kat Leal RN, BSN Liver Assistant Auto Center Manager * Result Encounter Note - Kat Leal RN - 10/05/2022 8:52 AM EDT Lab work reviewed and is consistent with recent lab values. Will continue to monitor labs. Kat Leal RN, BSN Liver Assistant Auto Center Manager documented in this encounterSalem [facility] Hospital06-22-2023 Miscellaneous Notes* Telephone Encounter - Francois [...] repeated instructions to confirm understanding. NIKHIL Moreland, [facility] Liver Assistant Auto Center Manager * Telephone Encounter - Warren Ross Coord - 09/22/2022 11:09 AM EDT Sonu called to speak to his hall coordinator about his Tacro medication. Please call [phone]. documented in this encounterSalem [facility] Hospital06-15-2023 Miscellaneous Notes* Telephone Encounter - Kat [...] pharmacy. Kat Leal RN documented in this encounterSalem [facility] Hospital06-01-2023 Miscellaneous Notes* Result Encounter Note - Kat Leal RN - 09/01/2022 12:20 PM EDT Results reviewed with Dr. Faye, see encounter for details. Will continue to monitor labs. Kat Leal RN, BSN Liver Assistant Auto Center Manager documented in this encounterSalem City Hospital06-01-2023 Miscellaneous Notes* Telephone Encounter - Kat [...] pharmacy. Kat Leal RN documented in this encounterSalem City Hospital05-04-2023 History of Present illness Narrative* Kulwinder [...] nl effort CV: rr ABDOMEN: soft non-tender, sanam incision from liver transplant Incision C/D/I . [...] 2022 TIME: 11:20 AM documented in this encounterSalem City Hospital05-04-2023 Nurse Note* Trina Brandt Ma - 08/04/2022 10:24 AM EDT What is the reason for your visit today? est Who is your referring physician? Dr. Landry Are you having poor oral intake? NO Have you had unintentional weight loss of 15 lbs/7 Kg in the last 3-6 months? NO Bowels: regular Wound: clean & dry Temperature: No Drains: No documented in this encounterSalem City Hospital05-03-2023 History of Present illness Narrative* Diane Vallecillo APRN.TIRE CORD WEAVER - 08/03/2022 1:14 PM EDT POST LIVER TRANSPLANT FOLLOW UP Jordan Aguilar [id number] Date of Transplant: 05/03/22 Original liver diagnosis: [...] 6 hours as needed for pain. lancets ([employer] Oy[employer]CH DELICA PLUS LANCET) 33 gauge Use 1 each as directed to check blood sugar level three times a day blood sugar diagnostic ([employer] OyTOUCH VERIO TEST STRIPS) test strip Use 1 [...] this can be a VV Diane Vallecillo APRN.TIRE CORD WEAVER documented in this encounterSalem City Hospital05-01-2023 History of Present illness Narrative* Rebecca [...] 01, 2022 1:12 PM documented in this encounterSalem City Hospital04-14-2023 Miscellaneous Notes* Telephone Encounter - Apolinar Wheeler MA - 07/15/2022 1:55 PM EDT Reviewed chart for clinic prep. Patient has new CT ordered but not scheduled. Will not be able to get CT prior to 07/21 appointment. Staff message to schedulers to move appointment to a time after CT is scheduled. EMA Silva-P, OCCA documented in this encounterSalem City Hospital04-10-2023 Instructions* Patient Instructions* Natacha Tellez - 07/11/2022 10:52 AM EDT Follow up with Dr. Gris FLANNERY office visit with Urology documented in this encounterSalem City Hospital04-10-2023 History of Present illness Narrative* Natacha Tellez - 07/11/2022 10:20 AM EDT Jordan Aguilar [address] [place] [id number] Mr. Aguilar presents with chief complaints of: [...] 6 hours as needed for pain. lancets ([employer] DELICA PLUS LANCET) 33 gauge Use 1 each as directed to check blood sugar level three times a day blood sugar diagnostic ([employer] VERIO TEST STRIPS) test strip Use 1 [...] complete. Sharon Castro M.D. 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 He stated his understanding. Kat Leal (Cassie) RN, BSN Liver Assistant Auto Center Manager documented in this encounterSalem City Hospital03-15-2023 History of Present illness Narrative* Gabriel Hilton MD - 06/15/2022 2:56 PM EDT POST LIVER TRANSPLANT FOLLOW UP Jordan Aguilar [id number] Date of Transplant: 05/03/2022 Original liver diagnosis: [...] 6 hours as needed for pain. lancets ([employer] DELICA PLUS LANCET) 33 gauge Use 1 each as directed to check blood sugar level three times a day blood sugar diagnostic ([employer] VERIO TEST STRIPS) test strip Use 1 [...] Dr. Julian Hilton MD documented in this encounterSalem City Hospital03-15-2023 Instructions* Patient Instructions* Francois German RN - 06/15/2022 2:53 PM EDT Decrease tacrolimus to 1.5 mg twice daily. Start Magnesium-Oxide 400 mg twice daily. Use melatonin if needed for sleep. Return to liver clinic on July 27 for 3 month follow. documented in this encounterSalem City Hospital03-11-2023 Miscellaneous Notes* Telephone Encounter - Sharon Castro MD - 06/11/2022 12:36 AM EST Patient scheduled for his scrotal us on 07/04/22 1:00 PM Seeing him on 07-12-22 documented in this encounterSalem City Hospital03-02-2023 Miscellaneous Notes* Telephone Encounter - Kat [...] pharmacy. Kat Leal RN documented in this encounterSalem City Hospital02-28-2023 History of Present illness Narrative* Faustina [...] 6 hours as needed for pain. lancets ([employer] Oy[employer]OUCH DELICA PLUS LANCET) 33 gauge Use 1 each as directed to check blood sugar level three times a day blood sugar diagnostic ([employer] OyTOUCH VERIO TEST STRIPS) test strip Use 1 [...] Problems No Family History I reviewed the [employer] notes with this visit for vital signs, [...] Boost 3x/day Drinks: 1 bottle of pepsi/day. [place] juice. Lots of water. Previously drank 3-4 [...] PRN Faustina Leahy APRN.CNP Endocrinology & Metabolism [place] documented in this encounterSalem City Hospital02-27-2023 Miscellaneous Notes* Telephone Encounter - Diane [...] EST Patient phones requesting prescriptions sent to [facility]. Requested Prescriptions Pending Prescriptions Disp Refills [...] 6 hours as needed for pain. lancets (Cardax PharmaUCH DELICA PLUS LANCET) 33 gauge 100 Each 2 Sig: Use 1 each as directed to check blood sugar level three times a day blood sugar diagnostic (Cardax PharmaUCH VERIO TEST STRIPS) test strip 100 Each [...] tablet by mouth every Monday,Monday,Monday. NIKHIL Moreland, [facility] Liver Assistant Auto Center Manager * Telephone Encounter - Kenna Green - 05/27/2022 2:47 PM EST Jennyfer/patient's daughter called requesting to switch All of [facility] [phone], she states he went to see his PCP yesterday due to his bad back problems he had an x ray and they found a compression fracture, just want to make his Coordinator aware. documented in this encounterDaniel Ville [id number] Miscellaneous Notes* Result Encounter Note - Francois German RN - 05/27/2022 1:21 PM EST Results reviewed. No change to the plan of care at this time. * Result Encounter Note - Francois German RN - 05/26/2022 1:42 PM EST Results reviewed. No change to the plan of care at this time. documented in this encounterSalem City Hospital02-24-2023 Instructions* Patient Instructions* Natacha Tellez - 05/27/2022 12:17 PM EST OV in 6 weeks with US scrotum prior Testicular tumor markers blood tests documented in this encounterSalem City Hospital02-24-2023 History of Present illness Narrative* Natacha Tellez - 05/27/2022 11:59 AM EST Jordan Aguilar [address] [place] [address] Mr. Aguilar presents with chief complaints of: [...] 3 capsules by mouth twice daily. lancets ([employer] OyTOUCH DELICA PLUS LANCET) 33 gauge Use 1 each as directed to check blood sugar level three times a day blood sugar diagnostic ([employer] OyTOUCH VERIO TEST STRIPS) test strip Use 1 [...] complete. Sharon Castro M.D. documented in this encounterSalem City Hospital02-22-2023 History of Present illness Narrative* Lawanda Marie, - 05/25/2022 4:01 PM EST Virtualist Progress Note Triage Call Triage source: Triage Call (Nurse Ebay Reseller, [facility] Triage, [facility] Phone Triage) Was patient downgraded (i.e. disposition other than go to the ED was advised)? Yes Mode of contact (phone call, [employer], [employer], Skype, other): tele History/Physical [...] in as Primary Virtualist, Secondary Virtualist, or [facility] Telehealth provider: Secondary SIGNATURE: Lawanda Marie DO PATIENT NAME: Jordan Aguilar DATE: May 25, 2022 documented in this encounterSalem City Hospital02-22-2023 Miscellaneous Notes* Telephone Encounter - Lakeisha Sands RN - 05/25/2022 3:47 PM EST Reason [...] or tender to touch Protocols used: Scrotum [id number] Patient was unable to schedule with appointment center for tomorrow due to other visits, Conferenced to Appointment center to schedule Appointment within 2 days. documented in this encounterSalem City Hospital02-22-2023 History of Present illness Narrative* Marlo Alvarado MD - 05/25/2022 2:04 PM EST POST LIVER TRANSPLANT FOLLOW UP Jordan Aguilar [id number] Date of Transplant: 05/03/2022 Original liver diagnosis: [...] 3 capsules by mouth twice daily. lancets ([employer] OyTOUCH DELICA PLUS LANCET) 33 gauge Use 1 [...] weeks Marlo Alvarado MD documented in this encounterSalem City Hospital02-22-2023 Instructions* Patient Instructions* Francois German RN - 05/25/2022 1:28 PM EST Stop Ursodiol Stop Prednisone Stop Nystatin swish [place] removed today and steri-strips applied Return to clinic on June 15. Watch [employer] for time. documented in this encounterSalem City Hospital02-22-2023 Miscellaneous Notes* Result Encounter Note - [...] care at this time. documented in this encounterSalem City Hospital02-17-2023 Miscellaneous Notes* Telephone Encounter - Francois German RN - 05/20/2022 3:45 PM EST Patient phones requesting refills as follows: Requested Prescriptions Pending Prescriptions Disp Refills simvastatin (ZOCOR) 20 mg tablet 30 tablet 11 Sig: Take 1 tablet by mouth daily at bedtime. NIKHIL Moreland, [facility] Liver Assistant Auto Center Manager * Telephone Encounter - Kenna Jalloh - [...] medication. Kenna Green Fc documented in this encounterSalem City Hospital02-15-2023 Instructions* Patient Instructions* Francois German RN - 05/18/2022 3:24 PM EST No changes to medications. Incision looks good. Will remove turner next week. Pathology reviewed. No unexpected findings. Return to clinic on 05/25/22. Watch [employer] for time. documented in this encounterSalem City Hospital02-15-2023 History of Present illness Narrative* Diane Vallecillo APRN.ROMA - 05/18/2022 3:03 PM EST POST LIVER TRANSPLANT FOLLOW UP Jordan Aguilar [id number] Date of Transplant:05/03/22 Original liver diagnosis: [place] Explanted liver:[place] Medication List: Current Outpatient Medications Medication Sig aspirin 81 mg chewable tablet Chew & swallow 1 tablet by mouth once daily. tacrolimus IR (PROGRAF) 1 mg capsule Take 3 capsules by mouth twice daily. lancets (Cardax PharmaUCH DELICA PLUS LANCET) 33 gauge Use 1 each as directed to check blood sugar level three times a day blood sugar diagnostic (In[employer]ange OyTOUCH VERIO TEST STRIPS) test strip Use 1 [...] next week for staple removal Diane Vallecillo APRN.TIRE CORD WEAVER documented in this encounterSalem City Hospital02-14-2023 Miscellaneous Notes* Telephone Encounter - Francois [...] tomorrow afternoon at 1:30 PM. NIKHIL Moreland, [facility] Liver Assistant Auto Center Manager * Telephone Encounter - Kenna Green - 05/16/2022 4:25 PM EST Patient's daughter called/left a message she wants to make sure that he had the correct bloodwork done this morning, requesting a c/b from his Coordinator. documented in this encounterSalem City Hospital02-02-2023 History of Present illness Narrative* Re Childress RN - 05/05/2022 8:02 AM EST DONOR ID: [id number] MATCH RUN: [id number] Type of Donor: DBD At risk donor: No Liver pumped: No TRANSPLANT SEROLOGIES: CMV IgG: Donor NEGATIVE/ Recipient NEGATIVE EBV IgG: Donor POSITIVE/ Recipient POSITIVE Donor has tested positive for COVID: No Re Childress RN, BSN, [facility] Liver Assistant Auto Center Manager documented in this encounterSalem City Hospital01-30-2023 Miscellaneous Notes* Telephone Encounter - Marilyn Lux RN - 05/02/2022 4:52 PM EST Called and informed the patient of a potential liver offer per Dr. Alvarado. Explained to the patient that per Dr. Alvarado the liver offer is from a DBD. The patient acknowledged an understanding and an opportunity was provided to ask questions. The patient agreed to [facility]. Explained the [...] 70% Marilyn Lux RN documented in this encounterSalem City Hospital01-27-2023 History of Present illness Narrative* Negar [...] 29, 2022 8:13 AM documented in this encounterSalem City Hospital01-25-2023 Miscellaneous Notes* Telephone Encounter - Zuleyka [...] answered. Zuleyka Jamison RN documented in this encounterSalem City Hospital01-13-2023 History of Present illness Narrative* Lakshmi Cr DO - 04/15/2022 8:52 AM EST Images from the original note were not included. Respiratory [facility] ESTABLISHED PATIENT FOLLOW UP CC: Jordan Aguilar [...] OUTSIDE/[facility] RECORDS: SPIROMETRY WITH DILATOR IF OBSTRUCTED ([id number]) - ordered on 02/11/22 No textual results [...] CR 04/15/2022 8:52 AM documented in this encounterSalem City Hospital01-11-2023 Miscellaneous Notes* Telephone Encounter - Cynthia Frederick RN - 04/13/2022 4:13 PM EST Attempted to reach the patient at the contact number that they provided [phone] (home) . Unable to speak with patient so without identifying the patient the following information was left on their voice mail: Date of procedure, location and report time A message was left informing the patient/patient parts counter representative they must have a responsible adult [...] Number to call with questions or concerns [phone] Cynthia Frederick RN documented in this encounterSalem City Hospital01-11-2023 Instructions* Patient Instructions* Dayna Reyes MD - 04/13/2022 8:50 AM EST Schedule: Scrotal Ultrasound CT Liver Dermatology Lucy Lomax PA-C in [address] Reyes in 6 months Get a COVID-19 bivalent booster documented in this encounterSalem City Hospital01-11-2023 History of Present illness Narrative* Dayna Reyes MD - 04/13/2022 8:28 AM EST NAME: Jordan Aguilar [facility] NO: [id number] REFERRING PHYSICIAN: Dayna Reyes PRESENTING COMPLAINT: f/u [...] BID (needs to discuss filling at pharmacy, Food[employer] priscila was approved). Continue zinc, level was [...] HE. He undergoes PRN L[facility] locally [facility] -HCC screening / liver cyst surveillance: Up [...] health: FBSE up to date 05/17/21 at [facility]. Refer for annual examination. -Immune status: He is immune to HAV/HBV. He completed 4 doses of a COVID-19 Moderna series. Recommended bivalent booster, which he will do locally. Follow up 3 months. Please contact sooner if you have questions or problems develop. I spent a total of 45 minutes on the date of the service which included preparing to see the patient, cruw-[id number]-dfqo patient care, completing clinical documentation, obtaining and/or reviewing separately obtained history, performing a medically appropriate examination, counseling and educating the pat ient/family/caregiver, ordering medications, tests, or procedures, communicating with other HCPs (not separately reported), independently interpreting results (not separately reported), communicatingresults to the patient/family/caregiver, and care coordination (not separately reported). Dayna Reyes MD April 13, 2022 8:28 AM documented in this encounterSalem City Hospital01-06-2023 Miscellaneous Notes* Telephone Encounter - Diana [...] AM Age: 61 years documented in this encounterSalem City Hospital12-30-2022 History of Present illness Narrative* Rebecca [...] 01, 2022 9:20 AM documented in this encounterSalem City Hospital12-20-2022 Miscellaneous Notes* Sedation Documentation - Earnestine [...] AM EST Bottle 1 documented in this encounterSalem City Hospital12-15-2022 History of Present illness Narrative* Kulwinder [...] EST GENERAL SURGERY CLINIC NOTE Jordan Aguilar [id number] HPI: Jordan Aguilar is a 61 year [...] his scrotum last night with minimalrelief. Takes [place] for chronic back pain and he does [...] staff, Dr. Landry. Nanci Kamara RN DDSI INVENTORY MANAGER Ladle Operator documented in this encounterSalem City Hospital12-08-2022 Miscellaneous Notes* Telephone Encounter - Dayna [...] AM Age: 61 years documented in this encounterSalem City Hospital12-08-2022 History of Present illness Narrative* Kulwinder Landry MD - 03/10/2022 11:36 AM EST No problem so far. Scant drain output, removed. Follow-up PRN. Kulwinder Landry MD documented in this encounterSalem City Hospital12-08-2022 Nurse Note* Shahram Potter - 03/10/2022 10:46 AM EST What is the reason for your visit today? Post op Who is your referring physician? Dr. Landry Are you having poor oral intake? NO Have you had unintentional weight loss of 15 lbs/7 Kg in the last 3-6 months? NO Bowels: regular Wound: clean & dry Temperature: No Drains: Yes documented in this encounterSalem City Hospital12-07-2022 Miscellaneous Notes* Telephone Encounter - Dayna Reyes MD - 03/09/2022 3:57 PM EST Hi Reinier Could you please call to check in on patient I'm glad to see that his surgery went well! Could he please have a set of labs done when he is here tomorrow for post op visit? Thank you Dayna Reyes MD documented in this encounterSalem City Hospital12-01-2022 Miscellaneous Notes* Telephone Encounter - Diana [...] PM Age: 61 years documented in this encounterSalem City Hospital11-30-2022 Miscellaneous Notes* Telephone Encounter - Diana Quiroz RN - 03/02/2022 10:38 AM EST Called patient and spoke to him. I told him I submitted his [facility] re- enrollment forms. I asked if he had done his portion. He said he would do it today. Told him to call for assistance. Diana Quiroz RN March 02, 2022 10:40 AM documented in this encounterSalem City Hospital11-23-2022 NoteHNO ID: [id number] Author: Katharine Holder RDMS Service: ? Author [...] Katharine Holder RDMS February 23, 2022 1:15 [id number] History of Present illness Narrative* Katharine Holder [...] 23, 2022 1:15 PM documented in this encounterSalem City Hospital11-22-2022 Miscellaneous Notes* Telephone Encounter - Diana Quiroz RN - 02/22/2022 12:02 PM EST Pt returned my call. He states his ascites is better but he still has fluid. He states he is tryingto reduce his sodium but struggles over the holidays. I told him he needs to have an ascites survey. Call then transferred to [facility] for scheduling. Diana Quiroz RN February 22, [...] than ever this week with the holiday. [facility] - Any chance he can get in [...] AM Age: 61 years documented in this encounterSalem City Hospital11-11-2022 History of Present illness Narrative* Lakshmi Cr, DO - 02/11/2022 1:13 PM EST Images from the original note were not included. Respiratory [facility] ESTABLISHED PATIENT FOLLOW UP CC: Jordan Aguilar [...] Abs Lymph 1.00 - 4.00 k/uL 1.06 Canyon% % 8.9 Abs [place] <0.87 k/uL 0.48 Eosin% % 3.0 Abs [...] past which required right upper lob[facility] at [facility] [place] [facility] in [address]. [address] of the chest from [...] 0.93 0.37 2.22 0.46 49 0.70 51 EIE69-05 (L/sec) 3.07 1.46 5.27 1.40 45 2.17 [...] CR 02/11/2022 1:13 PM documented [facility] encounter[facility] History of Present illness Narrative* Catrachito Odell RRT - 02/11/2022 12:45 PM EST PULM FUNCTION SMARTBLOCK: Provider: Lakshmi Cr DO Spirometry w/BD: 1 documented in this encounterSalem City Hospital11-10-2022 History and physical note * Venkata Kennedy APRN.CNP - 02/10/2022 2:50 PM EST HISTORY AND PHYSICAL EXAMINATION SERVICE DATE: 02/10/2022 SERVICE TIME: 2:20 PM PRIMARY CARE PHYSICIAN: Jordan Azar MD, MD REASON FOR VISIT: Jordan Aguilar is a 61 year old male who is scheduled for HERNIORRHAPHY INGUINAL ELECTIVE ADULT REDUCIBLE on 03/04/2022 at [facility] at the request of Dr. Kulwinder Landry [...] + HTN, HLD, CAD. Negative for DVT/PE, AL, Cardiac surgery or stents. Denies currentchest pain, [...] 2022 TIME: 3:07 PM documented in this encounterSalem City Hospital11-10-2022 Instructions* Patient Instructions* Venkata Kennedy APRN.CNP - 02/10/2022 2:38 PM EST PATIENT PREOPERATIVE INSTRUCTIONS Kulwinder Landry MD has scheduled you for your procedure at this surgery center: [facility] [place] Scheduling Office: [phone] --[address] [place] [address]. Please read below carefully for your personalized [...] Procedures: - YOU MUST HAVE A RESPONSIBLE DIAMOND WHEEL MOLDER TAKE YOU HOME. A PLATEN PRESS OPERATOR APPRENTICE OR SENIOR MEDICAL BILLING SPECIALIST CANNOT BE MADE A RESPONSIBLE DIAMOND WHEEL MOLDER. - We recommend that a responsible person [...] call the Monday before. Your surgeon s centrifugal operator will tell you what time to call the office. - If you have not reached the departmental centrifugal operator by 5 P.M., call [phone] after 5 P.M. the day before your surgery. Please be aware that emergency situations arise, which may delay or change your surgical time. If this happens, we will notify you as soon as possible and regret any inconvenience. If you already have an Advance Directive, please fax a copy to [phone] or email to for it to be [...] day. Venkata Kennedy APRN.ROMA documented in this encounterSalem City Hospital11-10-2022 History of Present illness Narrative* Kulwinder Landry MD - 02/10/2022 1:06 PM EST Mr Domenico's platelets are improved and ascites is optimized at this point. Plan for repair in March. Kulwinder Landry MD documented in this encounterSalem City Hospital11-10-2022 Nurse Note* Trina Brandt Ma - 02/10/2022 12:39 PM EST What is the reason for your visit today? est Who is your referring physician? Are you having poor oral intake? NO Have you had unintentional weight loss of 15 lbs/7 Kg in the last 3-6 months? NO Bowels: regular Wound: clean & dry Temperature: No Drains: No documented in this encounterSalem City Hospital10-13-2022 History of Present illness Narrative* Lakshmi Cr DO - 01/13/2022 2:16 PM EDT Images from the original note were not included. Respiratory Zullinger ESTABLISHED PATIENT FOLLOW UP CC: Jordan Aguilar [...] past which required right upper lobectomy at [facility] in [facility] in [facility]. CT of the chest from [...] I will see the patient back in [facility] with a spirometry and chest x-ray. I will cleared the patient for surgery at that time PRIMARY CARE PHYSICIAN: Jordan Azar MD, MD REVIEW OF OUTSIDE/[facility] RECORDS: SPIROMETRY BASELINE ONLY ([id number]) - ordered on 06/04/19 [facility] [address] [place] [address] Test Date: 2019-08-14 Pat Name: JORDAN AGUILAR Department: Room: Gender: Male Silviculture Professor: Gina RissaPrisca : 1960 Requested By: Order Number: [id number] Reading MD: Dr. Daren Hampton MD Interpretive [...] 4.81 FE%FIF % 53 FIVC L 4.57 VKB94-02% L/s 1.50 1.58 3.21 5.43 46.7 DJK930% sec 13.48 FETPEF sec 0.05 VBe%FV % [...] CR 01/13/2022 2:17 PM documented in this encounterSalem City Hospital09-28-2022 History of Present illness Narrative* RT [...] 29, 2021 9:36 AM documented in this encounterSalem [facility] Hospital09-07-2022 History of Present illness Narrative* Ivette Mejia MD - 12/08/2021 1:13 PM EDT Images from the original note were not included. [facility] I had the pleasure of seeing [facility] 08, 2021 I was [...] (L) 0.90 (L) 0.91 (L) 0.86 (L) Canyon% % 7.0 7.2 8.1 12.6 10.6 9.9 Abs Canyon <0.87 k/uL 0.42 0.41 0.27 0.61 0.50 [...] time of this visit, including time spent [id number]-al-[id number] with the patient and/or via video/audio, and [...] EMR or by fax documented in this encounterSalem City Hospital09-07-2022 Nurse Note* Therese Leyva MA - [...] copies are in Epic documented in this encounterSalem City Hospital08-31-2022 History of Present illness Narrative* Vidhya [...] tolerated well. Infusion discontinued at 1150am Lot: [id number] Exp:02/2023 LAB DATA: Glucose (mg/dL) Date Value [...] Physician: Dr. Lorna Frazier documented in this encounterSalem City Hospital08-31-2022 History of Present illness Narrative* DES Trivedi - 12/01/2021 10:07 AM EDT OLTx Annual Update to Original Psychosocial Evaluation Name: Jordan Aguilar Medical Record: [id number] Assessment Date: December 01, 2021 Met with: [...] at home. Pt has kept appointments at [facility] as scheduled and has a good [...] Both Haylie and Jennyfer can access his SoFits.Met for any questions they have. They also [...] at this time. CAREGIVER/SUPPORT PLAN: Primary Caregiver: Halyie contact #: [phone] Availability: She works full-time but has vacation time she can use. She's a strong support for him. Secondary Caregiver: Jennyfer contact #: [phone] Availability: She is a stay at home [...] 01, 2021 10:07 AM documented in this encounterSalem City Hospital08-29-2022 Miscellaneous Notes* Telephone Encounter - Donya Hanna - 11/29/2021 9:16 AM EDT Under scanned documents on 08/25 patient was approved for [facility] This needs to be filled through the [facility] Donya Hanna LPN November 29, 2021 [...] you Dayna Reyes MD documented in this encounterSalem City Hospital08-23-2022 Miscellaneous Notes* Telephone Encounter - Donya [...] being discharged? En Doe documented in this encounterSalem City Hospital08-11-2022 Instructions* Patient Instructions* Tenisha Granados PA-C - 11/11/2021 9:30 AM EDT PATIENT PREOPERATIVE INSTRUCTIONS Kulwinder Landry MD has scheduled you for your procedure at this surgery center: [facility] [place] Scheduling Office: [phone] --[address] [place] [address]. Please read below carefully for your personalized [...] Procedures: - YOU MUST HAVE A RESPONSIBLE DIAMOND WHEEL MOLDER TAKE YOU HOME. A PLATEN PRESS OPERATOR APPRENTICE OR SENIOR MEDICAL BILLING SPECIALIST CANNOT BE MADE A RESPONSIBLE DIAMOND WHEEL MOLDER. - We recommend that a responsible person [...] call the Monday before. Your surgeon s centrifugal operator will tell you what time to call the office. - If you have not reached the departmental centrifugal operator by 5 P.M., call [phone] after 5 P.M. the day before your surgery. Please be aware that emergency situations arise, which may delay or change your surgical time. If this happens, we will notify you as soon as possible and regret any inconvenience. If you already have an Advance Directive, please fax a copy to [phone] or email to for it to be [...] day. Tenisha Granados PA-C documented in this encounterSalem City Hospital08-11-2022 History and physical note * Tenisha [...] fevers. Neuro: No history of TIA's, stroke, REAMING MACHINE TENDER tumor, impaired sensorium, hemiplegia, paraplegia or quadraplegia. [...] been initiated at this time: GI Dr. Reyes and Surgeon Dr. Landry Patient will be [...] Order Specific Question: In order to conserve [facility]'s supply for crucial testing, I attest [...] Order Specific Question: In order to conserve [facility]'s supply for crucial testing, I attest [...] 2021 TIME: 8:18 AM documented in this encounterSalem City Hospital07-18-2022 Miscellaneous Notes* Telephone Encounter - Dayna Reyes MD - 10/18/2021 2:12 PM EDT Orders signed Dayna Reyes MD documented in this encounterSalem City Hospital07-13-2022 Miscellaneous Notes* Telephone Encounter - Dayna [...] you Dayna Reyes MD documented in this encounterSalem City Hospital07-08-2022 Miscellaneous Notes* Telephone Encounter - Dolly [...] you Lorna Frazier MD documented in this encounterSalem City Hospital07-07-2022 History of Present illness Narrative* Kulwinder [...] schedule him for surgery. documented in this encounterSalem City Hospital07-07-2022 Nurse Note* Trina Brandt Ma - 10/07/2021 1:26 PM EDT Intake information documented in the prior visit with Dr. frazier today. documented in this encounterSalem City Hospital07-07-2022 History of Present illness Narrative* Lorna [...] DATE OF EXAM: Jun 18 2020 9:45AM [facility] DXA - AXIAL SKELETON / PROCEDURE REASON: multiple diagnoses * * * * Physician Interpretation * * * * EXAMINATION: DXA BONE DENSITOMETRY BD DXA - AXIAL SKELETON PATIENT DEMOGRAPHICS: Age: 60 years, Race: , Gender: Male SCANNER INFORMATION: DXA Model: [employer] [place] (S/N: [id number]) Site Scanned: Lumbar spine, left hip Date [...] optimize absorption 3. 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, 571.5, ICD10: K75.81, [...] RD, MD, CCD, FACN, FACP, FACE Diplomate, [place] [employer]esity [employer] Diplomate, National Board of Physician Nutrition Specialists [facility] F-20 / [phone] / 18400 Any part of this document that has [...] Level: 4 - Moderate documented in this encounterSalem City Hospital07-07-2022 Instructions* Patient Instructions* Gladys Quiroz Yony - 10/07/2021 10:24 AM EDT 2 cups of gatorade + 2 cups of water + 1 teaspoon of salt documented in this encounterSalem City Hospital07-05-2022 History of Present illness Narrative* Tim Dennis MD - 10/05/2021 10:52 AM EDT STUDY TITLE: A Multicenter, Prospective, Open-label, Randomized Controlled Clinical Trial to Compare the Safety and Effectiveness of the VitaSmartTM Liver Machine Perfusion System with Static Cold Storage for Organ Preservation Prior to Liver Transplantation (Bridge to HOPE) (Bridge to Life) IRB No: [id number] RN OTOLARYNGOLOGY: Juan Lloyd MD Pager: [phone] COORDINATOR/Research Nurse/Online Advertising Director: Jammie Dubose MS I discussed the above mentioned research protocol with patient. All questions were addressed and answered. The IRB approved Informed Consent document was reviewed with the patient. The study purpose,follow up visits, risks, alternatives and costs were discussed. Patient is aware that this study is completely voluntary. Patient will be given a copy of the IFC. Stamp Mounter's contact information will be given to patient. documented in this [facility]06[facility] History of Present illness Narrative* Lucy Lomax PA-C - 09/20/2021 7:40 AM EDT Images from the original note were not included. Surgical risk-cirrhosis Vocal Caney Score Lucy Lomax PA-C September 20, 2021 7:40 AM documented in this [facility] Miscellaneous Notes* Telephone Encounter - [...] you Dayna Reyes MD documented in this encounterSalem City Hospital06-17-2022 Instructions* Patient Instructions* Lucy Lomax PA-C - 09/17/2021 10:29 AM EDT With next set of labs, will need to check vitamin A level Repeat liver ultrasound and follow up with Dr. Reyes in December Call general surgery to discuss hernia repair documented in this encounterSalem City Hospital06-17-2022 History of Present illness Narrative* Lucy Lomax PA-C - 09/17/2021 10:00 AM EDT Images from the original note were not included. NAME: Jordan Aguilar [facility] NO: [id number] REFERRING PHYSICIAN: Dayna Reyes PRESENTING COMPLAINT: Patient [...] presenting today for follow up of cirrhosis. Jordna Aguilar is a patient of Dr. Reyes, [...] setting of HE. PRN LVP locally at [facility]. -HCC screening / liver cyst surveillance: He was recently found to have newly elevated CA19-9. An MRCP on 06/29/21 was negative for malignancy. Recommend longitudinal screening via imaging and AFP [id number]. -EV screening: Small EV on EGD 04/21/21. [...] health: FBSE up to date 05/17/21 at [facility]. -Immune status: Immune to HAV/HBV. Completed [...] continue Bumex and spironolactone, recommend paracentesis (at [facility]) as needed for comfort or if weight [...] which included preparing to see the patient, [id number] patient care, completing clinical documentation, obtaining and/or reviewing separately obtained history, performing a medically appropriate examination, counseling and educating the pat ient/family/caregiver, ordering medications, tests, or procedures, communicating with other HCPs (not separately reported) and independently interpreting results (not separately reported). Lucy Lomax PA-C September 17, 2021 4:34 PM documented in this encounterSalem City Hospital06-13-2022 Miscellaneous Notes* Telephone Encounter - Zuleyka Jamison RN - 09/13/2021 4:14 PM EDT Jordan Aguilar informed of following... Successfully updated registration for Jordan Aguilar (SSN: [id number]). MELD Lab values were successfully updated. The new lab score is 10. All questions answered, Zuleyka Jamison RN documented in this encounterSalem City Hospital06-13-2022 History of Present illness Narrative* Katy [...] Time 11:22 Reactions: WNL documented in this encounterSalem City Hospital06-10-2022 Miscellaneous Notes* Telephone Encounter - Lorna [...] In Department of CARDIOLOGY. documented in this encounterSalem City Hospital04-30-2022 Miscellaneous Notes* Telephone Encounter - Dayna Reyes MD - 07/31/2021 10:26 AM EDT Nicolas Naqvi Can you please call patient: His updated labs are looking good on the new water pill regimen. I would like to increase his spironolactone to 200mg daily (2 pills daily). Please repeat labs at [facility] lab in 1 week. How is the ascites? Thank you Dayna Reyes MD documented in this encounterSalem City Hospital04-12-2022 Miscellaneous Notes* Telephone Encounter - Dayna [...] Order placed. Thank you! documented in this encounterSalem City Hospital04-11-2022 Miscellaneous Notes* Telephone Encounter - Dayna [...] Repeat labs in 1 week at a [facility] lab to re-check kidney function and [...] PM Age: 61 years documented in this encounterSalem City Hospital04-06-2022 Instructions* Patient Instructions* Dayna Reyes MD [...] your COVID 4th shot documented in this encounterSalem City Hospital04-06-2022 History of Present illness Narrative* Dayna Reyes MD - 07/07/2021 11:00 AM EDT NAME: Jordan Aguilar [facility] NO: [id number] REFERRING PHYSICIAN: Dayna Reyes PRESENTING COMPLAINT: f/u [...] - TDAP 09/20 #Hx of polyps - [place] in 2025 Follow up in 6 months. Please contact sooner if you have questions or problems develop. Denise Cox MD Fellow, Gastroenterology & Hepatology July 07, 2021 11:27 AM [facility] STAFF PHYSICIAN NOTE OF PERSONAL INVOLVEMENT IN [...] setting of HE. PRN LVP locally at [facility]. -HCC screening / liver cyst surveillance: He was recently found to have newly elevated CA19-9. An MRCP on 06/29/21 was negative for malignancy. Recommend longitudinal screening via imaging and AFP [id number]. -EV screening: Small EV on EGD 04/21/21. [...] health: FBSE up to date 05/17/21 at [facility]. -Immune status: Immune to HAV/HBV. Completed 3 doses of a COVID-19 Moderna series. Recommended 4th dose. Follow up in 8 weeks. Please contact sooner if you have questions or problems develop. I spent a total of 45 minutes on the date of the service which included preparing to see the patient, [id number] patient care, completing clinical documentation, obtaining and/or reviewing separately obtained history, performing a medically appropriate examination, counseling and educating the pat ient/family/caregiver, ordering medications, tests, or procedures and care coordination (not separately reported). Dayna Reyes MD July 07, 2021 11:00 AM documented in this encounterSalem City Hospital03-29-2022 Miscellaneous Notes* Addendum Note - Dayna [...] to be drained with them tomorrow. FX [phone] documented in this encounterSalem City Hospital03-29-2022 History of Present illness Narrative* Diane [...] 2021 TIME: 12:10 PM documented in this encounterSalem City Hospital05-20-2021 History of Past illness Narrative* Problem Noted Date Resolved Date Low bone mass 08/20/2020 10/07/2021 Inguinal hernia, left 07/03/2018 09/12/2018 Pulmonary hypertension 05/30/2018 1 documented as of this encounter (statuses as of 10/07/2021) [facility] of Past illness Narrative* Problem Noted Date Resolved Date Low bone mass 08/20/2020 10/07/2021 Inguinal hernia, left 07/03/2018 09/12/2018 Pulmonary hypertension 05/30/2018 1 documented as of this encounter (statuses as of 10/07/2021) [facility] of Past illness Narrative* Problem Noted Date Resolved Date Low bone mass 08/20/2020 10/07/2021 Inguinal hernia, left 07/03/2018 09/12/2018 Pulmonary hypertension 05/30/2018 1 documented as of this encounter (statuses as of 10/12/2021) [facility] illness Narrative* Problem Noted Date Resolved Date Low bone mass 08/20/2020 10/07/2021 Inguinal hernia, left 07/03/2018 09/12/2018 Pulmonary hypertension 05/30/2018 1 documented as of this encounter (statuses as of 10/14/2021) [facility] of [facility] illness Narrative* Problem Noted Date Resolved Date Low bone mass 08/20/2020 10/07/2021 Inguinal hernia, left 07/03/2018 09/12/2018 Pulmonary hypertension 05/30/2018 1 documented as of this encounter (statuses as of 10/18/2021) [facility] Narrative* Problem Noted Date Resolved Date Low bone mass 08/20/2020 10/07/2021 Inguinal hernia, left 07/03/2018 09/12/2018 Pulmonary hypertension 05/30/2018 1 documented as of this encounter (statuses as of 10/19/2021) [facility] Narrative* Problem Noted Date Resolved Date Low bone mass 08/20/2020 10/07/2021 Inguinal hernia, left 07/03/2018 09/12/2018 Pulmonary hypertension 05/30/2018 1 documented as of this encounter (statuses as of 11/04/2021) [facility] Narrative* Problem Noted Date Resolved Date Low bone mass 08/20/2020 10/07/2021 Inguinal hernia, left 07/03/2018 09/12/2018 Pulmonary hypertension 05/30/2018 1 documented as of this encounter (statuses as of 11/12/2021) [facility] Narrative* Problem Noted Date Resolved Date Low bone mass 08/20/2020 10/07/2021 Inguinal hernia, left 07/03/2018 09/12/2018 Pulmonary hypertension 05/30/2018 1 documented as of this encounter (statuses as of 11/23/2021) [facility] Narrative* Problem Noted Date Resolved Date Low bone mass 08/20/2020 10/07/2021 Inguinal hernia, left 07/03/2018 09/12/2018 Pulmonary hypertension 05/30/2018 1 documented as of this encounter (statuses as of 11/29/2021) [facility] Narrative* Problem Noted Date Resolved Date Low bone mass 08/20/2020 10/07/2021 Inguinal hernia, left 07/03/2018 09/12/2018 Pulmonary hypertension 05/30/2018 1 documented as of this encounter (statuses as of 12/01/2021) [facility] Narrative* Problem Noted Date Resolved Date Low bone mass 08/20/2020 10/07/2021 Inguinal hernia, left 07/03/2018 09/12/2018 Pulmonary hypertension 05/30/2018 1 documented as of this encounter (statuses as of 12/02/2021) [facility] Narrative* Problem Noted Date Resolved Date Low bone mass 08/20/2020 10/07/2021 Inguinal hernia, left 07/03/2018 09/12/2018 Pulmonary hypertension 05/30/2018 1 documented as of this encounter (statuses as of 12/04/2021) [address]20-2021 History of Past illness Narrative* Problem Noted Date Resolved Date Low bone mass 08/20/2020 10/07/2021 Inguinal hernia, left 07/03/2018 09/12/2018 Pulmonary hypertension 05/30/2018 1 documented as of this encounter (statuses as of 12/08/2021) [facility] Narrative* Problem Noted Date Resolved Date Low bone mass 08/20/2020 10/07/2021 Inguinal hernia, left 07/03/2018 09/12/2018 Pulmonary hypertension 05/30/2018 1 documented as of this encounter (statuses as of 12/20/2021) [facility] Narrative* Problem Noted Date Resolved Date Low bone mass 08/20/2020 10/07/2021 Inguinal hernia, left 07/03/2018 09/12/2018 Pulmonary hypertension 05/30/2018 1 documented as of this encounter (statuses as of 12/23/2021) [facility] Narrative* Problem Noted Date Resolved Date Low bone mass 08/20/2020 10/07/2021 Inguinal hernia, left 07/03/2018 09/12/2018 Pulmonary hypertension 05/30/2018 1 documented as of this encounter (statuses as of 12/30/2021) [facility] Narrative* Problem Noted Date Resolved Date Low bone mass 08/20/2020 10/07/2021 Inguinal hernia, left 07/03/2018 09/12/2018 Pulmonary hypertension 05/30/2018 1 documented as of this encounter (statuses as of 01/06/2022) [facility] Narrative* Problem Noted Date Resolved Date Low bone mass 08/20/2020 10/07/2021 Inguinal hernia, left 07/03/2018 09/12/2018 Pulmonary hypertension 05/30/2018 1 documented as of this encounter (statuses as of 01/10/2022) [facility] Narrative* Problem Noted Date Resolved Date Low bone mass 08/20/2020 10/07/2021 Inguinal hernia, left 07/03/2018 09/12/2018 Pulmonary hypertension 05/30/2018 1 documented as of this encounter (statuses as of 01/13/2022) [facility] Narrative* Problem Noted Date Resolved Date Low bone mass 08/20/2020 10/07/2021 Inguinal hernia, left 07/03/2018 09/12/2018 Pulmonary hypertension 05/30/2018 1 documented as of this encounter (statuses as of 01/21/2022) [facility] Narrative* Problem Noted Date Resolved Date Low bone mass 08/20/2020 10/07/2021 Inguinal hernia, left 07/03/2018 09/12/2018 Pulmonary hypertension 05/30/2018 1 documented as of this encounter (statuses as of 02/10/2022) [facility]* Problem Noted Date Resolved Date Low bone mass 08/20/2020 10/07/2021 Inguinal hernia, left 07/03/2018 09/12/2018 Pulmonary hypertension 05/30/2018 1 documented as of this encounter (statuses as of 02/10/2022) [facility] Narrative* Problem Noted Date Resolved Date Low bone mass 08/20/2020 10/07/2021 Inguinal hernia, left 07/03/2018 09/12/2018 Pulmonary hypertension 05/30/2018 1 documented as of this encounter (statuses as of 02/11/2022) [facility] Narrative* Problem Noted Date Resolved Date Low bone mass 08/20/2020 10/07/2021 Inguinal hernia, left 07/03/2018 09/12/2018 Pulmonary hypertension 05/30/2018 1 documented as of this encounter (statuses as of 02/11/2022) [facility] Narrative* Problem Noted Date Resolved Date Low bone mass 08/20/2020 10/07/2021 Inguinal hernia, left 07/03/2018 09/12/2018 Pulmonary hypertension 05/30/2018 1 documented as of this encounter (statuses as of 02/11/2022) [facility] Narrative* Problem Noted Date Resolved Date Low bone mass 08/20/2020 10/07/2021 Inguinal hernia, left 07/03/2018 09/12/2018 Pulmonary hypertension 05/30/2018 1 documented as of this encounter (statuses as of 02/15/2022) [facility] Past illness Narrative* Problem Noted Date Resolved Date Low bone mass 08/20/2020 10/07/2021 Inguinal hernia, left 07/03/2018 09/12/2018 Pulmonary hypertension 05/30/2018 1 documented as of this encounter (statuses as of 02/22/2022) [facility]-20[facility]2021 History of Past illness Narrative* Problem Noted Date Resolved Date Low bone mass 08/20/2020 10/07/2021 Inguinal hernia, left 07/03/2018 09/12/2018 Pulmonary hypertension 05/30/2018 1 documented as of this encounter (statuses as of 02/25/2022) [facility]2021 History of Past illness Narrative* Problem Noted Date Resolved Date Low bone mass 08/20/2020 10/07/2021 Inguinal hernia, left 07/03/2018 09/12/2018 Pulmonary hypertension 05/30/2018 1 documented as of this encounter (statuses as of 03/02/2022) [facility]2021 History of Past illness Narrative* Problem Noted Date Resolved Date Low bone mass 08/20/2020 10/07/2021 Inguinal hernia, left 07/03/2018 09/12/2018 Pulmonary hypertension 05/30/2018 1 documented as of this encounter (statuses as of 03/03/2022) [facility]21 History of Past illness Narrative* Problem Noted Date Resolved Date Low bone mass 08/20/2020 10/07/2021 Inguinal hernia, left 07/03/2018 09/12/2018 Pulmonary hypertension 05/30/2018 1 documented as of this encounter (statuses as of 03/09/2022) [address]20-2021 History of Past illness Narrative* Problem Noted Date Resolved Date Low bone mass 08/20/2020 10/07/2021 Inguinal hernia, left 07/03/2018 09/12/2018 Pulmonary hypertension 05/30/2018 1 documented as of this encounter (statuses as of 03/10/2022) [facility] History of Past illness Narrative* Problem Noted Date Resolved Date Low bone mass 08/20/2020 10/07/2021 Inguinal hernia, left 07/03/2018 09/12/2018 Pulmonary hypertension 05/30/2018 1 documented as of this encounter (statuses as of 03/11/2022) [facility] History of Past illness Narrative* Problem Noted Date Resolved Date Low bone mass 08/20/2020 10/07/2021 Inguinal hernia, left 07/03/2018 09/12/2018 Pulmonary hypertension 05/30/2018 1 documented as of this encounter (statuses as of 03/17/2022) [facility] History of Past illness Narrative* Problem Noted Date Resolved Date Low bone mass 08/20/2020 10/07/2021 Inguinal hernia, left 07/03/2018 09/12/2018 Pulmonary hypertension 05/30/2018 1 documented as of this encounter (statuses as of 03/17/2022) [facility] History of Past illness Narrative* Problem Noted Date Resolved Date Low bone mass 08/20/2020 10/07/2021 Inguinal hernia, left 07/03/2018 09/12/2018 Pulmonary hypertension 05/30/2018 1 documented as of this encounter (statuses as of 03/22/2022) [facility] History of Past illness Narrative* Problem Noted Date Resolved Date Low bone mass 08/20/2020 10/07/2021 Inguinal hernia, left 07/03/2018 09/12/2018 Pulmonary hypertension 05/30/2018 1 documented as of this encounter (statuses as of 03/23/2022) [facility] History of Past illness Narrative* Problem Noted Date Resolved Date Low bone mass 08/20/2020 10/07/2021 Inguinal hernia, left 07/03/2018 09/12/2018 Pulmonary hypertension 05/30/2018 1 documented as of this encounter (statuses as of 04/08/2022) [facility] History of Past illness Narrative* Problem Noted Date Resolved Date Low bone mass 08/20/2020 10/07/2021 Inguinal hernia, left 07/03/2018 09/12/2018 Pulmonary hypertension 05/30/2018 1 documented as of this encounter (statuses as of 04/13/2022) [facility] History of Past illness Narrative* Problem Noted Date Resolved Date Low bone mass 08/20/2020 10/07/2021 Inguinal hernia, left 07/03/2018 09/12/2018 Pulmonary hypertension 05/30/2018 1 documented as of this encounter (statuses as of 04/13/2022) [facility] History of Past illness Narrative* Problem Noted Date Resolved Date Low bone mass 08/20/2020 10/07/2021 Inguinal hernia, left 07/03/2018 09/12/2018 Pulmonary hypertension 05/30/2018 1 documented as of this encounter (statuses as of 04/15/2022) [facility] History of Past illness Narrative* Problem Noted Date Resolved Date Low bone mass 08/20/2020 10/07/2021 Inguinal hernia, left 07/03/2018 09/12/2018 Pulmonary hypertension 05/30/2018 1 documented as of this encounter (statuses as of 04/16/2022) [facility] History of Past illness Narrative* Problem Noted Date Resolved Date Low bone mass 08/20/2020 10/07/2021 Inguinal hernia, left 07/03/2018 09/12/2018 Pulmonary hypertension 05/30/2018 1 documented as of this encounter (statuses as of 04/27/2022) [facility] History of Past illness Narrative* Problem Noted Date Resolved Date Low bone mass 08/20/2020 10/07/2021 Inguinal hernia, left 07/03/2018 09/12/2018 Pulmonary hypertension 05/30/2018 1 documented as of this encounter (statuses as of 04/30/2022) [facility] History of Past illness Narrative* Problem Noted Date Resolved Date Low bone mass 08/20/2020 10/07/2021 Inguinal hernia, left 07/03/2018 09/12/2018 Pulmonary hypertension 05/30/2018 1 documented as of this encounter (statuses as of 05/03/2022) [facility] History of Past illness Narrative* Problem Noted Date Resolved Date Low bone mass 08/20/2020 10/07/2021 Inguinal hernia, left 07/03/2018 09/12/2018 Pulmonary hypertension 05/30/2018 1 documented as of this encounter (statuses as of 05/05/2022) [facility] History of Past illness Narrative* Problem Noted Date Resolved Date Low bone mass 08/20/2020 10/07/2021 Inguinal hernia, left 07/03/2018 09/12/2018 Pulmonary hypertension 05/30/2018 1 documented as of this encounter (statuses as of 05/13/2022) [facility] History of Past illness Narrative* Problem Noted Date Resolved Date Low bone mass 08/20/2020 10/07/2021 Inguinal hernia, left 07/03/2018 09/12/2018 Pulmonary hypertension 05/30/2018 1 documented as of this encounter (statuses as of 05/16/2022) [facility] History of Past illness Narrative* Problem Noted Date Resolved Date Low bone mass 08/20/2020 10/07/2021 Inguinal hernia, left 07/03/2018 09/12/2018 Pulmonary hypertension 05/30/2018 1 documented as of this encounter (statuses as of 05/17/2022) [facility] History of Past illness Narrative* Problem Noted Date Resolved Date Low bone mass 08/20/2020 10/07/2021 Inguinal hernia, left 07/03/2018 09/12/2018 Pulmonary hypertension 05/30/2018 1 documented as of this encounter (statuses as of 05/20/2022) [address]20-2021 History of Past illness Narrative* Problem Noted Date Resolved Date Low bone mass 08/20/2020 10/07/2021 Inguinal hernia, left 07/03/2018 09/12/2018 Pulmonary hypertension 05/30/2018 1 documented as of this encounter (statuses as of 05/20/2022) [facility] History of Past illness Narrative* Problem Noted Date Resolved Date Low bone mass 08/20/2020 10/07/2021 Inguinal hernia, left 07/03/2018 09/12/2018 Pulmonary hypertension 05/30/2018 1 documented as of this encounter (statuses as of 05/25/2022) [facility] History of Past illness Narrative* Problem Noted Date Resolved Date Low bone mass 08/20/2020 10/07/2021 Inguinal hernia, left 07/03/2018 09/12/2018 Pulmonary hypertension 05/30/2018 1 documented as of this encounter (statuses as of 05/25/2022) [facility] History of Past illness Narrative* Problem Noted Date Resolved Date Low bone mass 08/20/2020 10/07/2021 Inguinal hernia, left 07/03/2018 09/12/2018 Pulmonary hypertension 05/30/2018 1 documented as of this encounter (statuses as of 05/26/2022) [facility] History of Past illness Narrative* Problem Noted Date Resolved Date Low bone mass 08/20/2020 10/07/2021 Inguinal hernia, left 07/03/2018 09/12/2018 Pulmonary hypertension 05/30/2018 1 documented as of this encounter (statuses as of 05/27/2022) [facility] History of Past illness Narrative* Problem Noted Date Resolved Date Low bone mass 08/20/2020 10/07/2021 Inguinal hernia, left 07/03/2018 09/12/2018 Pulmonary hypertension 05/30/2018 1 documented as of this encounter (statuses as of 05/30/2022) [facility] History of Past illness Narrative* Problem Noted Date Resolved Date Low bone mass 08/20/2020 10/07/2021 Inguinal hernia, left 07/03/2018 09/12/2018 Pulmonary hypertension 05/30/2018 1 documented as of this encounter (statuses as of 05/31/2022) [facility] History of Past illness Narrative* Problem Noted Date Resolved Date Low bone mass 08/20/2020 10/07/2021 Inguinal hernia, left 07/03/2018 09/12/2018 Pulmonary hypertension 05/30/2018 1 documented as of this encounter (statuses as of 06/03/2022) [facility] History of Past illness Narrative* Problem Noted Date Resolved Date Low bone mass 08/20/2020 10/07/2021 Inguinal hernia, left 07/03/2018 09/12/2018 Pulmonary hypertension 05/30/2018 1 documented as of this encounter (statuses as of 06/06/2022) [facility] History of Past illness Narrative* Problem Noted Date Resolved Date Low bone mass 08/20/2020 10/07/2021 Inguinal hernia, left 07/03/2018 09/12/2018 Pulmonary hypertension 05/30/2018 1 documented as of this encounter (statuses as of 06/10/2022) [facility] History of Past illness Narrative* Problem Noted Date Resolved Date Low bone mass 08/20/2020 10/07/2021 Inguinal hernia, left 07/03/2018 09/12/2018 Pulmonary hypertension 05/30/2018 1 documented as of this encounter (statuses as of 06/11/2022) [facility] History of Past illness Narrative* Problem Noted Date Resolved Date Low bone mass 08/20/2020 10/07/2021 Inguinal hernia, left 07/03/2018 09/12/2018 Pulmonary hypertension 05/30/2018 1 documented as of this encounter (statuses as of 06/15/2022) [facility] History of Past illness Narrative* Problem Noted Date Resolved Date Low bone mass 08/20/2020 10/07/2021 Inguinal hernia, left 07/03/2018 09/12/2018 Pulmonary hypertension 05/30/2018 1 documented as of this encounter (statuses as of 06/17/2022) [facility] History of Past illness Narrative* Problem Noted Date Resolved Date Low bone mass 08/20/2020 10/07/2021 Inguinal hernia, left 07/03/2018 09/12/2018 Pulmonary hypertension 05/30/2018 1 documented as of this encounter (statuses as of 06/26/2022) [facility] History of Past illness Narrative* Problem Noted Date Resolved Date Low bone mass 08/20/2020 10/07/2021 Inguinal hernia, left 07/03/2018 09/12/2018 Pulmonary hypertension 05/30/2018 1 documented as of this encounter (statuses as of 06/28/2022) [facility] History of Past illness Narrative* Problem Noted Date Resolved Date Low bone mass 08/20/2020 10/07/2021 Inguinal hernia, left 07/03/2018 09/12/2018 Pulmonary hypertension 05/30/2018 1 documented as of this encounter (statuses as of 06/28/2022) [facility] History of Past illness Narrative* Problem Noted Date Resolved Date Low bone mass 08/20/2020 10/07/2021 Inguinal hernia, left 07/03/2018 09/12/2018 Pulmonary hypertension 05/30/2018 1 documented as of this encounter (statuses as of 06/29/2022) [facility] History of Past illness Narrative* Problem Noted Date Resolved Date Low bone mass 08/20/2020 10/07/2021 Inguinal hernia, left 07/03/2018 09/12/2018 Pulmonary hypertension 05/30/2018 1 documented as of this encounter (statuses as of 07/04/2022) [facility] History of Past illness Narrative* Problem Noted Date Resolved Date Low bone mass 08/20/2020 10/07/2021 Inguinal hernia, left 07/03/2018 09/12/2018 Pulmonary hypertension 05/30/2018 1 documented as of this encounter (statuses as of 07/11/2022) [place] [address]-20-2021 History of Past illness Narrative* Problem Noted Date Resolved Date Low bone mass 08/20/2020 10/07/2021 Inguinal hernia, left 07/03/2018 09/12/2018 Pulmonary hypertension 05/30/2018 1 documented as of this encounter (statuses as of 07/14/2022) [facility] History of Past illness Narrative* Problem Noted Date Resolved Date Low bone mass 08/20/2020 10/07/2021 Inguinal hernia, left 07/03/2018 09/12/2018 Pulmonary hypertension 05/30/2018 1 documented as of this encounter (statuses as of 07/16/2022) [facility] History of Past illness Narrative* Problem Noted Date Resolved Date Low bone mass 08/20/2020 10/07/2021 Inguinal hernia, left 07/03/2018 09/12/2018 Pulmonary hypertension 05/30/2018 1 documented as of this encounter (statuses as of 07/27/2022) [facility] History of Past illness Narrative* Problem Noted Date Resolved Date Low bone mass 08/20/2020 10/07/2021 Inguinal hernia, left 07/03/2018 09/12/2018 Pulmonary hypertension 05/30/2018 1 documented as of this encounter (statuses as of 08/03/2022) [facility] History of Past illness Narrative* Problem Noted Date Resolved Date Low bone mass 08/20/2020 10/07/2021 Inguinal hernia, left 07/03/2018 09/12/2018 Pulmonary hypertension 05/30/2018 1 documented as of this encounter (statuses as of 08/04/2022) [facility] History of Past illness Narrative* Problem Noted Date Resolved Date Low bone mass 08/20/2020 10/07/2021 Inguinal hernia, left 07/03/2018 09/12/2018 Pulmonary hypertension 05/30/2018 1 documented as of this encounter (statuses as of 09/01/2022) [facility] History of Past illness Narrative* Problem Noted Date Resolved Date Low bone mass 08/20/2020 10/07/2021 Inguinal hernia, left 07/03/2018 09/12/2018 Pulmonary hypertension 05/30/2018 1 documented as of this encounter (statuses as of 09/02/2022) [facility] History of Past illness Narrative* Problem Noted Date Resolved Date Low bone mass 08/20/2020 10/07/2021 Inguinal hernia, left 07/03/2018 09/12/2018 Pulmonary hypertension 05/30/2018 1 documented as of this encounter (statuses as of 09/16/2022) [facility] History of Past illness Narrative* Problem Noted Date Resolved Date Low bone mass 08/20/2020 10/07/2021 Inguinal hernia, left 07/03/2018 09/12/2018 Pulmonary hypertension 05/30/2018 1 documented as of this encounter (statuses as of 09/22/2022) [facility] History of Past illness Narrative* Problem Noted Date Resolved Date Low bone mass 08/20/2020 10/07/2021 Inguinal hernia, left 07/03/2018 09/12/2018 Pulmonary hypertension 05/30/2018 1 documented as of this encounter (statuses as of 10/06/2022) [facility] History of Past illness Narrative* Problem Noted Date Diagnosed Date Resolved Date Low bone mass 08/20/2020 10/07/2021 Inguinal hernia, left 07/03/20182018 Pulmonary hypertension 05/30/201808/20 documented as of this encounter (statuses as of 10/13/2022) [facility] History of Past illness Narrative* Problem Noted Date Diagnosed Date Resolved Date Low bone mass 08/20/2020 10/07/2021 Liver transplant candidate 05/01/2019 0 10/31/2022 Hepatic encephalopathy 03/06/201910/31 Inguinal hernia, left 07/03/20182018 Liver cyst 07/03/2018 10/31/2022 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 Pulmonary hypertension 05/30/201808/20 documented as of this encounter (statuses as of 10/31/2022) [facility] of Past illness Narrative* Problem Noted Date Diagnosed Date Resolved Date Low bone mass 08/20/2020 10/07/2021 Liver transplant candidate 05/01/2019 0 10/31/2022 Hepatic encephalopathy 03/06/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/31 Inguinal hernia, left 07/03/20182018 Liver cyst 07/03/2018 10/31/2022 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 Pulmonary hypertension 05/30/201808/20 documented as of this encounter (statuses as of 11/08/2022) [facility] of Past illness Narrative* Problem Noted Date Diagnosed Date Resolved Date Low bone mass 08/20/2020 10/07/2021 Liver transplant candidate 05/01/2019 0 10/31/2022 Hepatic encephalopathy 03/06/201910/31 Inguinal hernia, left 07/03/20182018 Liver cyst 07/03/2018 10/31/2022 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 Pulmonary hypertension 05/30/201808/20 documented as of this encounter (statuses as of 11/11/2022) [facility] of Past illness Narrative* Problem Noted Date Diagnosed Date Resolved Date Low bone mass 08/20/2020 10/07/2021 Liver transplant candidate 05/01/2019 0 10/31/2022 Hepatic encephalopathy 03/06/201910/31 Inguinal hernia, left 07/03/20182018 Liver cyst 07/03/2018 10/31/2022 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 Pulmonary hypertension 05/30/201808/20 documented as of this encounter (statuses as of 11/11/2022) [facility] of Past illness Narrative* Problem Noted Date Diagnosed Date Resolved Date Low bone mass 08/20/2020 10/07/2021 Liver transplant candidate 05/01/2019 0 10/31/2022 Hepatic encephalopathy 03/06/201910/31 Inguinal hernia, left 07/03/20182018 Liver cyst 07/03/2018 10/31/2022 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 Pulmonary hypertension 05/30/201808/20 documented as of this encounter (statuses as of 11/11/2022) [facility] Past illness Narrative* Problem Noted Date Diagnosed Date Resolved Date Low bone mass 08/20/2020 10/07/2021 Liver transplant candidate 05/01/2019 0 10/31/2022 Hepatic encephalopathy 03/06/201910/31 Inguinal hernia, left 07/03/20182018 Liver cyst 07/03/2018 10/31/2022 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 Pulmonary hypertension 05/30/201808/20 documented as of this encounter (statuses as of 11/11/2022) [facility] of Past illness Narrative* Problem Noted Date Diagnosed Date Resolved Date Low bone mass 08/20/2020 10/07/2021 Liver transplant candidate 05/01/2019 0 10/31/2022 Hepatic encephalopathy 03/06/201910/31 Inguinal hernia, left 07/03/20182018 Liver cyst 07/03/2018 10/31/2022 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 Pulmonary hypertension 05/30/201808/20 documented as of this encounter (statuses as of 11/15/2022) [facility] of Past illness Narrative* Problem Noted Date Diagnosed Date Resolved Date Low bone mass 08/20/2020 10/07/2021 Liver transplant candidate 05/01/2019 0 10/31/2022 Hepatic encephalopathy 03/06/201910/31 Inguinal hernia, left 07/03/20182018 Liver cyst 07/03/2018 10/31/2022 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 Pulmonary hypertension 05/30/201808/20 documented as of this encounter (statuses as of 11/15/2022) [facility] of Past illness Narrative* Problem Noted Date Diagnosed Date Resolved Date Low bone mass 08/20/2020 10/07/2021 Liver transplant candidate 05/01/2019 0 10/31/2022 Hepatic encephalopathy 03/06/201910/31 Inguinal hernia, left 07/03/20182018 Liver cyst 07/03/2018 10/31/2022 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 Pulmonary hypertension 05/30/201808/20 documented as of this encounter (statuses as of 11/16/2022) [facility] Past illness Narrative* Problem Noted Date Diagnosed Date Resolved Date Low bone mass 08/20/2020 10/07/2021 Liver transplant candidate 05/01/2019 0 10/31/2022 Hepatic encephalopathy 03/06/201910/31 Inguinal hernia, left 07/03/20182018 Liver cyst 07/03/2018 10/31/2022 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 Pulmonary hypertension 05/30/201808/20 documented as of this encounter (statuses as of 11/18/2022) [facility] Past illness Narrative* Problem Noted Date Diagnosed Date Resolved Date Low bone mass 08/20/2020 10/07/2021 Liver transplant candidate 05/01/2019 0 10/31/2022 Hepatic encephalopathy 03/06/201910/31 Inguinal hernia, left 07/03/20182018 Liver cyst 07/03/2018 10/31/2022 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 Pulmonary hypertension 05/30/201808/20 documented as of this encounter (statuses as of 11/20/2022) [facility] Past illness Narrative* Problem Noted Date Diagnosed Date Resolved Date Low bone mass 08/20/2020 10/07/2021 Liver transplant candidate 05/01/2019 0 10/31/2022 Hepatic encephalopathy 03/06/201910/31 Inguinal hernia, left 07/03/20182018 Liver cyst 07/03/2018 10/31/2022 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 Pulmonary hypertension 05/30/201808/20 documented as of this encounter (statuses as of 12/09/2022) [facility] Past illness Narrative* Problem Noted Date Diagnosed Date Resolved Date Low bone mass 08/20/2020 10/07/2021 Liver transplant candidate 05/01/2019 0 10/31/2022 Hepatic encephalopathy 03/06/201910/31 Inguinal hernia, left 07/03/20182018 Liver cyst 07/03/2018 10/31/2022 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 Pulmonary hypertension 05/30/201808/20 documented as of this encounter (statuses as of 01/12/2023) [facility] Past illness Narrative* Problem Noted Date Diagnosed Date Resolved Date Low bone mass 08/20/2020 10/07/2021 Liver transplant candidate 05/01/2019 0 10/31/2022 Hepatic encephalopathy 03/06/201910/31 Inguinal hernia, left 07/03/20182018 Liver cyst 07/03/2018 10/31/2022 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 Pulmonary hypertension 05/30/201808/20 documented as of this encounter (statuses as of 01/18/2023) [facility] Past illness Narrative* Problem Noted Date Diagnosed Date Resolved Date Low bone mass 08/20/2020 10/07/2021 Liver transplant candidate 05/01/2019 0 10/31/2022 Hepatic encephalopathy 03/06/201910/31 Inguinal hernia, left 07/03/20182018 Liver cyst 07/03/2018 10/31/2022 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 Pulmonary hypertension 05/30/201808/20 documented as of this encounter (statuses as of 02/02/2023) [facility] Past illness Narrative* Problem Noted Date Diagnosed Date Resolved Date Low bone mass 08/20/2020 10/07/2021 Liver transplant candidate 05/01/2019 0 10/31/2022 Hepatic encephalopathy 03/06/201910/31 Inguinal hernia, left 07/03/20182018 Liver cyst 07/03/2018 10/31/2022 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 Pulmonary hypertension 05/30/201808/20 documented as of this encounter (statuses as of 02/06/2023) [facility] Past illness Narrative* Problem Noted Date Diagnosed Date Resolved Date Low bone mass 08/20/2020 10/07/2021 Liver transplant candidate 05/01/2019 0 10/31/2022 Hepatic encephalopathy 03/06/201910/31 Inguinal hernia, left 07/03/20182018 Liver cyst 07/03/2018 10/31/2022 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 Pulmonary hypertension 05/30/201808/20 documented as of this encounter (statuses as of 02/06/2023) [facility] Past [facility] Narrative* Problem Noted Date Diagnosed Date Resolved Date Low bone mass 08/20/2020 10/07/2021 Liver transplant candidate 05/01/2019 0 10/31/2022 Hepatic encephalopathy 03/06/201910/31 Inguinal hernia, left 07/03/20182018 Liver cyst 07/03/2018 10/31/2022 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 Pulmonary hypertension 05/30/201808/20 documented as of this encounter (statuses as of 02/06/2023) [facility] Past [facility] Narrative* Problem Noted Date Diagnosed Date Resolved Date Low bone mass 08/20/2020 10/07/2021 Liver transplant candidate 05/01/2019 0 10/31/2022 Hepatic encephalopathy 03/06/201910/31 Inguinal hernia, left 07/03/20182018 Liver cyst 07/03/2018 10/31/2022 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 Pulmonary hypertension 05/30/201808/20 documented as of this encounter (statuses as of 02/06/2023) [facility] Past [facility] Narrative* Problem Noted Date Diagnosed Date Resolved Date Low bone mass 08/20/2020 10/07/2021 Liver transplant candidate 05/01/2019 0 10/31/2022 Hepatic encephalopathy 03/06/201910/31 Inguinal hernia, left 07/03/20182018 Liver cyst 07/03/2018 10/31/2022 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 Pulmonary hypertension 05/30/201808/20 documented as of this encounter (statuses as of 05/11/2023) [facility] Past [facility] Narrative* Problem Noted Date Diagnosed Date Resolved Date Low bone mass 08/20/2020 10/07/2021 Liver transplant candidate 05/01/2019 0 10/31/2022 Hepatic encephalopathy 03/06/201910/31 Inguinal hernia, left 07/03/20182018 Liver cyst 07/03/2018 10/31/2022 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 Pulmonary hypertension 05/30/201808/20 documented as of this encounter (statuses as of 05/22/2023) [facility]-20-2021 History of Past illness Narrative* Problem Noted Date Diagnosed Date Resolved Date Low bone mass 08/20/2020 10/07/2021 Liver transplant candidate 05/01/2019 0 10/31/2022 Hepatic encephalopathy 03/06/201910/31 Inguinal hernia, left 07/03/20182018 Liver cyst 07/03/2018 10/31/2022 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 Pulmonary hypertension 05/30/201808/20 documented as of this encounter (statuses as of 05/25/2023) [facility]-20-2021 History of Past illness Narrative* Problem Noted Date Diagnosed Date Resolved Date Low bone mass 08/20/2020 10/07/2021 Liver transplant candidate 05/01/2019 0 10/31/2022 Hepatic encephalopathy 03/06/201910/31 Inguinal hernia, left 07/03/20182018 Liver cyst 07/03/2018 10/31/2022 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 Pulmonary hypertension 05/30/201808/20 documented as of this encounter (statuses as of 05/25/2023) [address]20-2021 History of Past illness Narrative* Problem Noted Date Diagnosed Date Resolved Date Low bone mass 08/20/2020 10/07/2021 Liver transplant candidate 05/01/2019 0 10/31/2022 Hepatic encephalopathy 03/06/201910/31 Inguinal hernia, left 07/03/20182018 Liver cyst 07/03/2018 10/31/2022 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 Pulmonary hypertension 05/30/201808/20 documented as of this encounter (statuses as of 07/13/2023) [facility]2019 History of Past illness Narrative* Problem Noted Date Resolved Date Inguinal hernia, left 07/03/2018 09/12/2018 Pulmonary hypertension 05/30/2018 1 documented as of this encounter (statuses as of 06/29/2021) [facility]2019 History of Past illness Narrative* Problem Noted Date Resolved Date Inguinal hernia, left 07/03/2018 09/12/2018 Pulmonary hypertension 05/30/2018 1 documented as of this encounter (statuses as of 06/30/2021) [facility] History of Past illness Narrative* Problem Noted Date Resolved Date Inguinal hernia, left 07/03/2018 09/12/2018 Pulmonary hypertension 05/30/2018 1 documented as of this encounter (statuses as of 07/13/2021) [facility] History of Past illness Narrative* Problem Noted Date Resolved Date Inguinal hernia, left 07/03/2018 09/12/2018 Pulmonary hypertension 05/30/2018 1 documented as of this encounter (statuses as of 07/14/2021) [facility] History of Past illness Narrative* Problem Noted Date Resolved Date Inguinal hernia, left 07/03/2018 09/12/2018 Pulmonary hypertension 05/30/2018 1 documented as of this encounter (statuses as of 07/14/2021) [facility] History of Past illness Narrative* Problem Noted Date Resolved Date Inguinal hernia, left 07/03/2018 09/12/2018 Pulmonary hypertension 05/30/2018 1 documented as of this encounter (statuses as of 07/17/2021) [address]02-2019 History of Past illness Narrative* Problem Noted Date Resolved Date Inguinal hernia, left 07/03/2018 09/12/2018 Pulmonary hypertension 05/30/2018 1 documented as of this encounter (statuses as of 07/19/2021) [place] [address]-02-2019 History of Past illness Narrative* Problem Noted Date Resolved Date Inguinal hernia, left 07/03/2018 09/12/2018 Pulmonary hypertension 05/30/2018 1 documented as of this encounter (statuses as of 07/31/2021) [address]02-2019 History of Past illness Narrative* Problem Noted Date Resolved Date Inguinal hernia, left 07/03/2018 09/12/2018 Pulmonary hypertension 05/30/2018 1 documented as of this encounter (statuses as of 08/10/2021) [address]02-2019 History of Past illness Narrative* Problem Noted Date Resolved Date Inguinal hernia, left 07/03/2018 09/12/2018 Pulmonary hypertension 05/30/2018 1 documented as of this encounter (statuses as of 09/10/2021) [address]02-2019 History of Past illness Narrative* Problem Noted Date Resolved Date Inguinal hernia, left 07/03/2018 09/12/2018 Pulmonary hypertension 05/30/2018 1 documented as of this encounter (statuses as of 09/13/2021) [facility] History of Past illness Narrative* Problem Noted Date Resolved Date Inguinal hernia, left 07/03/2018 09/12/2018 Pulmonary hypertension 05/30/2018 1 documented as of this encounter (statuses as of 09/13/2021) [address]02-2019 History of Past illness Narrative* Problem Noted Date Resolved Date Inguinal hernia, left 07/03/2018 09/12/2018 Pulmonary hypertension 05/30/2018 1 documented as of this encounter (statuses as of 09/17/2021) [place] [address]02-2019 History of Past illness Narrative* Problem Noted Date Resolved Date Inguinal hernia, left 07/03/2018 09/12/2018 Pulmonary hypertension 05/30/2018 1 documented as of this encounter (statuses as of 09/18/2021) [facility] History of Past illness Narrative* Problem Noted Date Resolved Date Inguinal hernia, left 07/03/2018 09/12/2018 Pulmonary hypertension 05/30/2018 1 documented as of this encounter (statuses as of 09/20/2021) [facility]2019 History of Past illness Narrative* Problem Noted Date Resolved Date Inguinal hernia, left 07/03/2018 09/12/2018 Pulmonary hypertension 05/30/2018 1 documented as of this encounter (statuses as of 10/05/2021) [facility] Diagnosis Other ascites- Primary [facility] Diagnosis 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 Liver transplant candidate Elevated tumor markers Other abnormal tumor markers Abnormal results of liver function studies Nonspecific abnormal results of liver function study [facility] Diagnosis Vitamin A deficiency- Primary Unspecified vitamin A deficiency Vitamin D deficiency Unspecified vitamin D deficiency Cirrhosis of liver with ascites, unspecified hepatic cirrhosis type (HCC) [facility] Diagnosis Cirrhosis of liver with ascites, unspecified hepatic cirrhosis type (HCC)- [facility] Cirrhosis of liver with ascites, unspecified hepatic cirrhosis type (HCC) [facility] Diagnosis Liver cirrhosis secondary to [place] [...] Osteopenia, unspecified location [facility] 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 [facility] Diagnosis Cirrhosis of liver with ascites, unspecified hepatic cirrhosis type (HCC) [facility] Diagnosis Vitamin A deficiency Unspecified vitamin A deficiency [facility] Diagnosis Liver transplant candidate [place] (nonalcoholic steatohepatitis) Other chronic nonalcoholic liver disease documented [facility]* Diagnosis 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 Other ascites Liver transplant candidate Portal hypertension with esophageal varices (HCC) Portal hypertension Hepatic encephalopathy (HCC) Hepatic encephalopathy History of colonic polyps Personal history of colonic polyps Vitamin D deficiency Unspecified vitamin D deficiency Vitamin A deficiency Unspecified vitamin A deficiency [facility] Diagnosis Cirrhosis of liver with ascites, unspecified hepatic cirrhosis type (HCC) [facility]* Diagnosis Age-related osteoporosis without current pathological fracture- Primary Senile osteoporosis Vitamin D deficiency Unspecified vitamin D deficiency 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 Liver transplant candidate Incisional hernia, without obstruction or gangrene- Primary Incisional hernia without mention of obstruction or gangrene documented in this encounter [facility]* Diagnosis Incisional hernia, without obstruction or gangrene- Primary Incisional hernia without mention of obstruction or gangrene [facility] Diagnosis Cirrhosis of liver with ascites, unspecified hepatic cirrhosis type (HCC) documented in this encounter [facility]* Diagnosis 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 Preoperative examination Preoperative examination, unspecified Unilateral inguinal hernia without obstruction or gangrene, recurrence not specified documented in this encounter [facility]* Diagnosis Preoperative examination- Primary Preoperative examination, unspecified Unilateral inguinal hernia without obstruction or gangrene, recurrence not specified Preoperative examination Preoperative examination, unspecified Unilateral inguinal hernia without obstruction or gangrene, recurrence not specified documented in this encounter [facility]* Diagnosis Liver cirrhosis secondary to [place] [...] recurrence not specified [facility]* Diagnosis Age-related osteoporosis without current pathological fracture- Primary Senile osteoporosis [facility] Diagnosis Cirrhosis of liver with ascites, unspecified hepatic cirrhosis type (HCC) [facility] Diagnosis Thrombocytopenia (HCC) Thrombocytopenia, unspecified Cirrhosis of liver with ascites, unspecified hepatic cirrhosis type (HCC) Liver transplant candidate [facility] Diagnosis Other ascites- Primary [facility] Diagnosis 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 [facility] Diagnosis Lung nodules Other nonspecific abnormal finding of lung field [facility] Diagnosis Cirrhosis of liver with ascites, unspecified hepatic cirrhosis type (HCC)- Primary documented in this [facility]* Diagnosis Preoperative examination- Primary Preoperative examination, unspecified Unilateral inguinal hernia without obstruction or gangrene, recurrence not specified [facility]* Diagnosis Pneumonia of right lower lobe due to infectious organism- Primary Chronic rhinitis Preoperative examination Preoperative examination, unspecified Unilateral inguinal hernia without obstruction or gangrene, recurrence not specified [facility]* Diagnosis Incisional hernia, without obstruction or gangrene- Primary Incisional hernia without mention of obstruction or gangrene Preoperative examination Preoperative examination, unspecified Unilateral inguinal hernia without obstruction or gangrene, recurrence not specified documented [facility] this [facility]* Diagnosis Pre-operative examination- Primary Preoperative examination, unspecified Essential hypertension Unspecified essential hypertension Dyslipidemia Other and unspecified hyperlipidemia Coronary artery disease involving solomon coronary artery of solomon heart without angina pectoris Chronic obstructive pulmonary disease, unspecified COPD type (HCC) Histoplasmosis Histoplasmosis, unspecified without mention of manifestation Cirrhosis of liver with ascites, unspecified hepatic cirrhosis type (HCC) Portal hypertension with esophageal varices (HCC) Portal hypertension Thrombocytopenia (HCC) Thrombocytopenia, unspecified Preoperative examination Preoperative examination, unspecified Unilateral inguinal hernia without obstruction or gangrene, recurrence not specified documented in this [facility]* Diagnosis Cirrhosis of liver with ascites, unspecified hepatic cirrhosis type (HCC) Preoperative examination Preoperative examination, unspecified Unilateral inguinal hernia without obstruction or gangrene, recurrence not specified [facility] Diagnosis Vitamin D deficiency- Primary Unspecified vitamin D deficiency Cirrhosis of liver with ascites, unspecified hepatic cirrhosis type (HCC) Vitamin A deficiency Unspecified vitamin A deficiency Hepatic encephalopathy Preoperative examination Preoperative examination, unspecified Unilateral inguinal hernia without obstruction or gangrene, recurrence not specified [facility] Diagnosis Chronic rhinitis- Primary Pneumonia of right lower lobe due to infectious organism Preoperative examination Preoperative examination, unspecified Unilateral inguinal hernia without obstruction or gangrene, recurrence not specified [facility] Diagnosis Preoperative examination- Primary Preoperative examination, unspecified Unilateral inguinal hernia without obstruction or gangrene, recurrence not specified 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 Centrilobular emphysema (HCC) Other emphysema Preoperative examination Preoperative examination, unspecified Unilateral inguinal hernia without obstruction or gangrene, recurrence not specified [facility] Diagnosis 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 Preoperative examination Preoperative examination, unspecified Unilateral inguinal hernia without obstruction or gangrene, recurrence not specified [facility] Diagnosis Cirrhosis of liver with ascites, unspecified hepatic cirrhosis type (HCC) Preoperative examination Preoperative examination, unspecified Unilateral inguinal hernia without obstruction or gangrene, recurrence not specified [facility] Diagnosis Cirrhosis of liver with ascites, unspecified hepatic cirrhosis type (HCC) [facility] Diagnosis Unilateral inguinal hernia without obstruction or gangrene, recurrence not specified- Primary [facility] Diagnosis Unilateral inguinal hernia without obstruction or gangrene, recurrence not specified- Primary [facility] Diagnosis Cirrhosis of liver with ascites, unspecified hepatic cirrhosis type (HCC)- Primary [facility] Diagnosis Other ascites- Primary [facility] Diagnosis Other ascites Cirrhosis of liver with ascites, unspecified hepatic cirrhosis type (HCC) [facility] Diagnosis Cirrhosis of liver with ascites, [...] unspecified hydrocele type [facility] Diagnosis 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)- Primary Other chronic nonalcoholic liver disease Portal hypertension with esophageal varices (HCC) Portal hypertension Liver transplant candidate Unilateral inguinal hernia without obstruction or gangrene, recurrence not specified Chronic obstructive pulmonary disease, unspecified COPD type (HCC) [facility]* Diagnosis Unilateral inguinal hernia without obstruction or gangrene, recurrence not specified Hydrocele, unspecified hydrocele type [facility] Diagnosis Onset Date Resolution Status Ascites [facility] Work Phone: Evaluation note* Diagnosis 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 [facility] Diagnosis Cirrhosis of liver with ascites, unspecified hepatic cirrhosis type (HCC) [facility] Diagnosis Liver replaced by transplant (HCC)- Primary Liver replaced by transplant [facility] Diagnosis Status post liver transplant (HCC)- Primary Liver replaced by transplant [facility] Diagnosis Portal hypertensive gastropathy (HCC) Other specified disorder of stomach and duodenum 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 [facility] Diagnosis Research study patient- Primary Liver replaced by transplant (HCC) Liver replaced by transplant [facility] Diagnosis Liver transplant recipient (HCC)- Primary [facility] Diagnosis Scrotal swelling- Primary Edema of male genital organs Liver transplant recipient (HCC) [facility] Diagnosis Steroid-induced hyperglycemia- Primary Other abnormal [...] male genital organs [facility] Diagnosis Unilateral inguinal hernia without obstruction or gangrene, recurrence not specified- Primary [facility] Liver replaced by transplant [...] by transplant [facility] Diagnosis Research subject- Primary Liver replaced by transplant (HCC) Liver replaced by transplant [facility] Liver replaced by transplant (HCC)- Primary Liver replaced by transplant Immunosuppressed status (HCC) Unspecified disorder of immune mechanism [facility] Diagnosis Scrotal swelling Edema of male genital organs Liver transplant recipient (HCC) [facility] Diagnosis Unilateral inguinal hernia without obstruction or gangrene, recurrence not specified [facility] Diagnosis Unilateral inguinal hernia without obstruction or gangrene, recurrence not specified [facility] Diagnosis Liver replaced by transplant (HCC)- Primary Liver replaced by transplant Liver replaced by transplant (HCC) Liver replaced by transplant [facility] Diagnosis Liver replaced by transplant (HCC) Liver replaced by transplant [facility] Diagnosis Acute left-sided low back pain with left-sided sciatica- Primary S/P lumbar laminectomy Other postprocedural status [facility]* Diagnosis Liver replaced by transplant (HCC) Liver replaced by transplant [facility] Diagnosis Liver replaced by transplant (HCC) Liver replaced by transplant [facility] Diagnosis Liver replaced by transplant (HCC)- Primary Liver replaced by transplant [facility] Diagnosis Unilateral inguinal hernia without obstruction or gangrene, recurrence not specified documented [facility]* Diagnosis 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 [facility]* Diagnosis Other ascites [facility] noteNo assessment information [facility] Work [facility]: Evaluation [facility]* Diagnosis Portal hypertension with esophageal varices (HCC) Portal hypertension [facility]* Diagnosis Liver cirrhosis secondary to [place] [...] and unspecified hyperlipidemia Coronary artery disease involving solomon coronary artery of solomon heart without angina pectoris Chronic obstructive pulmonary [...] Long-term current use of tacrolimus Encounter for termination clerk current azathioprine therapy Encounter for long-term (current) use of other medications halfway current use of systemic steroids Encounter for long-term (current) use of steroids Liver replaced by transplant (HCC) Liver replaced by transplant Essential hypertension, malignant Thrombocytopenia, unspecified (HCC) Thrombocytopenia, unspecified Atherosclerosis of solomon coronary artery without angina pectoris, unspecified whether solomon or transplanted heart Respiratory system complication of care Acute posthemorrhagic anemia Hyperglycemia Other abnormal glucose Acute postoperative pulmonary insufficiency (HCC) Acute blood loss anemia Acute posthemorrhagic anemia CAD (coronary artery disease) Coronary atherosclerosis of unspecified type of vessel, solomon or graft Essential hypertension Unspecified essential hypertension Thrombocytopenia (HCC) Thrombocytopenia, unspecified Liver transplant recipient (HCC) Need for prophylactic immunotherapy Hyperglycemia Other abnormal glucose Elevated LFTs- Primary Other abnormal blood chemistry At risk for bleeding Other specified conditions influencing health status Elevated LFTs Other abnormal blood chemistry [facility] Diagnosis Liver cirrhosis secondary to [place] [...] and unspecified hyperlipidemia Coronary artery disease involving solomon coronary artery of solomon heart without angina pectoris Chronic obstructive pulmonary [...] Long-term current use of tacrolimus Encounter for snf current azathioprine therapy Encounter for long-term (current) use of other medications halfway current use of systemic steroids Encounter for long-term (current) use of steroids Liver replaced by transplant (HCC) Liver replaced by transplant Essential hypertension, malignant Thrombocytopenia, unspecified (HCC) Thrombocytopenia, unspecified Atherosclerosis of solomon coronary artery without angina pectoris, unspecified whether solomon or transplanted heart Respiratory system complication of care Acute posthemorrhagic anemia Hyperglycemia Other abnormal glucose Acute postoperative pulmonary insufficiency (HCC) Acute blood loss anemia Acute posthemorrhagic anemia CAD (coronary artery disease) Coronary atherosclerosis of unspecified type of vessel, solomon or graft Essential hypertension Unspecified essential hypertension Thrombocytopenia (HCC) Thrombocytopenia, unspecified Liver transplant recipient (HCC) Need for prophylactic immunotherapy Hyperglycemia Other abnormal glucose Abnormal blood chemistry- Primary Other abnormal blood chemistry Elevated LFTs Other abnormal blood chemistry Elevated LFTs Other abnormal blood chemistry [facility] Liver cirrhosis secondary to [...] and unspecified hyperlipidemia Coronary artery disease involving solomon coronary artery of solomon heart without angina pectoris Chronic obstructive pulmonary [...] Long-term current use of tacrolimus Encounter for termination clerk current azathioprine therapy Encounter for long-term (current) use of other medications halfway current use of systemic steroids Encounter for long-term (current) use of steroids Liver replaced by transplant (HCC) Liver replaced by transplant Essential hypertension, malignant Thrombocytopenia, unspecified (HCC) Thrombocytopenia, unspecified Atherosclerosis of solomon coronary artery without angina pectoris, unspecified whether solomon or transplanted heart Respiratory system complication of care Acute posthemorrhagic anemia Hyperglycemia Other abnormal glucose Acute postoperative pulmonary insufficiency (HCC) Acute blood loss anemia Acute posthemorrhagic anemia CAD (coronary artery disease) Coronary atherosclerosis of unspecified type of vessel, solomon or graft Essential hypertension Unspecified essential hypertension Thrombocytopenia (HCC) Thrombocytopenia, unspecified Liver transplant recipient (HCC) Need for prophylactic immunotherapy Hyperglycemia Other abnormal glucose Elevated LFTs Other abnormal blood chemistry [facility] Diagnosis Liver cirrhosis secondary to [place] [...] and unspecified hyperlipidemia Coronary artery disease involving solomon coronary artery of solomon heart without angina pectoris Chronic obstructive pulmonary [...] Long-term current use of tacrolimus Encounter for termination clerk current azathioprine therapy Encounter for long-term (current) use of other medications halfway current use of systemic steroids Encounter for long-term (current) use of steroids Liver replaced by transplant (HCC) Liver replaced by transplant Essential hypertension, malignant Thrombocytopenia, unspecified (HCC) Thrombocytopenia, unspecified Atherosclerosis of solomon coronary artery without angina pectoris, unspecified whether solomon or transplanted heart Respiratory system complication of care Acute posthemorrhagic anemia Hyperglycemia Other abnormal glucose Acute postoperative pulmonary insufficiency (HCC) Acute blood loss anemia Acute posthemorrhagic anemia CAD (coronary artery disease) Coronary atherosclerosis of unspecified type of vessel, solomon or graft Essential hypertension Unspecified essential hypertension Thrombocytopenia (HCC) Thrombocytopenia, unspecified Liver transplant recipient (HCC) Need for prophylactic immunotherapy Hyperglycemia Other abnormal glucose Liver replaced by transplant (HCC)- Primary Liver replaced by transplant documented in this encounter [facility] general Narrative - Reported* Type Description Date [...] See above surg. hx. Hospitalization History Ascites [employer] Other reason for referral (narrative)* Outpatient Procedure (Routine) - Pending Review Specialty Diagnoses / Procedures Referred By Melinda lopez Referred To Contact [facility] Diagnoses Other ascites Procedures ABDOM PARACENTESIS DX/THER W IMAGING GUIDANCE ABDOM PARACENTESIS DX/THER W IMAGING GUIDANCE Dayna Reyes MD [address] [place] [address] [facility] [address] [place] [address] Referral ID Status Reason Start Date Expiration Date Visits Requested Visits Authorized [id number] Pending Review Auto-Generat ed Referral 06/29/2021 06/29/2022 52 52 [facility] for referral (narrative)* Diagnostic Procedure Only (Routine) - Pending Review Specialty Diagnoses / Procedures Referred By Melinda lopez Referred To Contact US IMAGING Diagnoses Cirrhosis of liver with ascites, unspecified hepatic cirrhosis type (HCC) Procedures US DOPPLER COMPLETE DUP-SCAN ARTL GREY ABDL/PEL/SCROT&/RPR ORGN COM Dayna Reyes MD [address] [place] [address] Us Imaging Referral ID Status Reason Start Date Expiration Date Visits Requested Visits Authorized [id number] Pending Review Auto-Generat ed Referral 07/12/2021 08/11/2022 1 1 * Diagnostic Procedure Only (Routine) - Pending Review Specialty Diagnoses / Procedures Referred By Contac t Referred To Contact US IMAGING Diagnoses Cirrhosis of liver with ascites, unspecified hepatic cirrhosis type (HCC) Procedures US ABD LIVER VASCULAR US ABDOMINAL REAL TIME W/IMAGE LIMITED DUP-SCAN ARTL GREY ABDL/PEL/SCROT&/RPR ORGN [facility] Dayna Reyes MD [address] [facility] [place] [address] Us Imaging Referral ID Status Reason Start Date Expiration Date Visits Requested Visits Authorized [id number] Pending Review Auto-Generat ed Referral 07/12/2021 08/11/2022 1 1 [facility] for referral (narrative)* Diagnostic Procedure Only (Routine) - Pending Review Specialty Diagnoses / Procedures Referred By Contac t Referred To Contact US IMAGING Diagnoses Cirrhosis of liver with ascites, unspecified hepatic cirrhosis type (HCC) Procedures US DOPPLER COMPLETE DUP-SCAN ARTL GREY ABDL/PEL/SCROT&/RPR ORGN [facility] Dayna Reyes MD [address] [facility] [place] [address] Us Imaging Referral ID Status Reason Start Date Expiration Date Visits Requested Visits Authorized [id number] Pending Review Auto-Generat ed Referral 07/13/2021 08/12/2022 1 1 * Diagnostic Procedure Only (Routine) - Pending Review Specialty Diagnoses / Procedures Referred By Contac t Referred To Contact US IMAGING Diagnoses Cirrhosis of liver with ascites, unspecified hepatic cirrhosis type (HCC) Procedures US ABD LIVER VASCULAR US ABDOMINAL REAL TIME W/IMAGE LIMITED DUP-SCAN ARTL GREY ABDL/PEL/SCROT&/RPR ORGN COM Dayna Reyes MD [address] [facility] [place] [address] Us Imaging Referral ID Status Reason Start Date Expiration Date Visits Requested Visits Authorized [id number] Pending Review Auto-Generat ed Referral 07/13/2021 08/12/2022 1 1 [facility] for referral (narrative)* Diagnostic Procedure Only (Routine) - Closed Specialty Diagnoses / Procedures Referred By Contac t Referred To Contact US IMAGING Diagnoses Cirrhosis of liver with ascites, unspecified hepatic cirrhosis type (HCC) Procedures US ABD LIVER VASCULAR US ABDOMINAL REAL TIME W/IMAGE LIMITED DUP-SCAN ARTL GREY ABDL/PEL/SCROT&/RPR ORGN COM Dayna Reyes MD [address] [facility] [place] [address] Us Imaging Referral ID Status Reason Start Date Expiration Date Visits Re quested Visits Authorized [id number] Closed 07/13/2021 04/02/2022 1 1 * Diagnostic Procedure Only (Routine) - Closed Specialty Diagnoses / Procedures Referred By Contac t Referred To Contact US IMAGING Diagnoses Cirrhosis of liver with ascites, unspecified hepatic cirrhosis type (HCC) Procedures US DOPPLER COMPLETE DUP-SCAN ARTL GREY ABDL/PEL/SCROT&/RPR ORGN COM Dayna Reyse MD [address] [place] [address] Us Imaging Referral ID Status Reason Start Date Expiration Date Visits Re quested Visits Authorized [id number] Closed 07/13/2021 04/02/2022 1 1 [facility] for referral (narrative)* Outpatient Procedure (Routine) - Authorized Specialty Diagnoses / Procedures Referred By Contac t Referred [facility] Diagnoses Preoperative examination Unilateral inguinal hernia without obstruction or gangrene, recurrence not specified Procedures ECG COMPLETE ECG ROUTINE ECG W/LEAST 12 LDS W/I&R Tenisha Granados PA-C [address] [place] [address] [facility] [address] [place], [place] [id number] Referral ID Status Reason Start Date Expiration Date Visits Requested Visits Authorized [id number] Authorized Auto-Generat ed Referral 11/11/2021 11/11/2022 1 1 [facility] for referral (narrative)* Diagnostic Procedure Only (Routine) - Closed Specialty Diagnoses / Procedures Referred By Contac t Referred To Contact US IMAGING Diagnoses Cirrhosis of liver with ascites, unspecified hepatic cirrhosis type (HCC) Procedures US DOPPLER COMPLETE DUP-SCAN ARTL GREY ABDL/PEL/SCROT&/RPR ORGN COM Dyana Reyes MD [address] [place] [address] Us Imaging Referral ID Status Reason Start Date Expiration Date V isits Requested Visits Authorized [id number] Closed Auto-Generate d Referral 07/13/2021 08/12/2022 1 1 * Diagnostic Procedure Only (Routine) - Closed Specialty Diagnoses / Procedures Referred By Contac t Referred To Contact US IMAGING Diagnoses Cirrhosis of liver with ascites, unspecified hepatic cirrhosis type (HCC) Procedures US ABD LIVER VASCULAR US ABDOMINAL REAL TIME W/IMAGE LIMITED DUP-SCAN ARTL GREY ABDL/PEL/SCROT&/RPR ORGN COM Dayna Reyes MD [address] [place] [address] Us Imaging Referral ID Status Reason Start Date Expiration Date V isits Requested Visits Authorized [id number] Closed Auto-Generate d Referral 11/30/2021 04/02/2022 1 1 [facility] for referral (narrative)* Diagnostic Procedure Only (Routine) - Pending Review Specialty Diagnoses / Procedures Referred By Contac t Referred To Contact US IMAGING Diagnoses Other ascites Procedures US ASCITES SURVEY US ABDOMINAL REAL TIME W/IMAGE LIMITED Dayna Reyes MD [address] [place] [address] Us Imaging Referral ID Status Reason Start Date Expiration Date Visits Requested Visits Authorized [id number] Pending Review Auto-Generat ed Referral 12/20/2021 01/19/2023 1 1 T [facility] for referral (narrative)* Diagnostic Procedure Only (Routine) - Pending Review Specialty Diagnoses / Procedures Referred By Contac t Referred To Contact US IMAGING Diagnoses Cirrhosis of liver with ascites, unspecified hepatic cirrhosis type (HCC) Procedures US ASCITES SURVEY US ABDOMINAL REAL TIME W/IMAGE LIMITED Dayna Reyes MD [address] [place] [address] Us Imaging Referral ID Status Reason Start Date Expiration Date Visits Requested Visits Authorized [id number] Pending Review Auto-Generat ed Referral 01/05/2022 02/04/2023 1 1 T [facility] for referral (narrative)* Outpatient Procedure (Routine) - Pending Review Specialty Diagnoses / Procedures Referred By Contac t Referred To Contact [facility] Diagnoses Chronic rhinitis Pneumonia of right lower lobe due to infectious organism Procedures SPIROMETRY WITH DILATOR IF OBSTRUCTED BRNCDILAT RSPSE SPMTRY PRE&POST-BRNCDILAT ADMN Lakshmi Cr DO [address] [place] [address] Res[facility] [address] [place] [address] Referral ID Status Reason Start Date Expiration Date Visits Requested Visits Authorized [id number] Pending Review Auto-Generat ed Referral 2 02/12/2023 1 1 [facility] for referral (narrative)* Diagnostic Procedure Only (Routine) - Closed Specialty Diagnoses / Procedures Referred By Contac t Referred To Contact US IMAGING Diagnoses Cirrhosis of liver with ascites, unspecified hepatic cirrhosis type (HCC) Procedures US ASCITES SURVEY US ABDOMINAL REAL TIME W/IMAGE LIMITED Dayna Reyes MD [address] [facility] [place] [address] Us Imaging Referral ID Status Reason Start Date Expiration Date V isits Requested Visits Authorized [id number] Closed Auto-Generate d Referral 01/20/2022 04/02/2022 1 1 [facility] for referral (narrative)* Diagnostic Procedure Only (Routine) - Authorized Specialty Diagnoses / Procedures Referred By Contac t Referred To Contact US IMAGING Diagnoses 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) Procedures US ASCITES SURVEY US ABDOMINAL REAL TIME W/IMAGE LIMITED Dayna Reyes MD [address] [place] [address] Us Imaging Referral ID Status Reason Start Date Expiration Date Visits Requested Visits Authorized [id number] Authorized Auto-Generat ed Referral 2 04/02/2022 1 1 [facility] for referral (narrative)* Outpatient Procedure (Routine) - Pending Review Specialty Diagnoses / Procedures Referred By Contac t Referred To Contact [facility] Diagnoses Cirrhosis of liver with ascites, unspecified hepatic cirrhosis type (HCC) Procedures ABDOM PARACENTESIS DX/THER W IMAGING GUIDANCE ABDOM PARACENTESIS DX/THER W IMAGING GUIDANCE Dayna Reyes MD [address] [facility] [place] [address] [address] [facility] [place] [address] Referral ID Status Reason Start Date Expiration Date Visits Requested Visits Authorized [id number] Pending Review Auto-Generat ed Referral 03/17/2023 52 1 [facility] for referral (narrative)* Outpatient Procedure (Routine) - Closed Specialty Diagnoses / Procedures Referred By Melinda lopez Referred To Contact [facility] Diagnoses Cirrhosis of liver with ascites, unspecified hepatic cirrhosis type (HCC) Procedures ABDOM PARACENTESIS DX/THER W IMAGING GUIDANCE ABDOM PARACENTESIS DX/THER W IMAGING GUIDANCE Dayna Reyes MD [address] [place] [address] [address] Referral ID Status Reason Start Date Expiration Date V isits Requested Visits Authorized [id number] Closed Auto-Generate d Referral 03/17/2022 03/17/2023 52 1 * Diagnostic Procedure Only (Routine) - Closed Specialty Diagnoses / Procedures Referred By Melinda lopez Referred To Contact [facility] Diagnoses Other ascites Procedures ABDOM PARACENTESIS DX/THER W IMAGING GUIDANCE ABDOM PARACENTESIS DX/THER W IMAGING GUIDANCE Dayna Reyes MD [address] [place] [address] [address] Referral ID Status Reason Start Date Expiration Date Visits Re quested Visits Authorized [id number] Closed 07/13/2021 04/02/2022 52 1 [facility] for referral (narrative)* Diagnostic Procedure Only (Routine) - Authorized Specialty Diagnoses / Procedures Referred By Melinda lopez Referred To Contact US IMAGING Diagnoses Unilateral inguinal hernia without obstruction or gangrene, recurrence not specified Hydrocele, unspecified hydrocele type Procedures US SCROTUM AND CONTENTS US SCROTUM & CONTENTS Dayna Reyes MD [address] [place] [address] Us Imaging Referral ID Status Reason Start Date Expiration Date Visits Requested Visits Authorized [id number] Authorized Auto-Generat ed Referral 04/13/2022 05/13/2023 1 1 * Consult, Test, Treat (Routine) - Pending Review Specialty Diagnoses / Procedures Referred By Contac t Referred To Contact Dermatology Diagnoses Liver transplant candidate Procedures CONSULT TO DERMATOLOGY OFFICE/OUTPATIENT [facility] MDM 60-74 MINUTES Dayna Reyes MD [address] [place] [address] Referral ID Status Reason Start Date Expiration Date Visits Requested Visits Authorized [id number] Pending Review PCP Requested Referral 04/13/2022 04/13/2023 1 1 * MRI/CT (Routine) - Authorized Specialty Diagnoses / Procedures Referred By Contac t Referred To Contact CT IMAGING Diagnoses Cirrhosis of liver with ascites, unspecified hepatic cirrhosis type (HCC) Procedures CT LIVER W IVCON CT ABDOMEN W/CONTRAST Dayna Reyes MD [address] [place] [address] Ct Imaging Referral ID Status Reason Start Date Expiration Date Visits Requested Visits Authorized [id number] Authorized Auto-Generat ed Referral 04/13/2022 05/13/2023 1 1 [facility] for referral (narrative)* Diagnostic Procedure Only (Routine) - Closed Specialty Diagnoses / Procedures Referred By Contac t Referred To Contact US IMAGING Diagnoses Unilateral inguinal hernia without obstruction or gangrene, recurrence not specified Hydrocele, unspecified hydrocele type Procedures US SCROTUM AND CONTENTS US SCROTUM & CONTENTS Dayna Reyes MD [address] [place] [address] Us Imaging Referral ID Status Reason Start Date Expiration Date V isits Requested Visits Authorized [id number] Closed Auto-Generate d Referral 04/13/2022 05/13/2023 1 1 [facility] for referral (narrative)* Diagnostic Procedure Only (Routine) - Authorized Specialty Diagnoses / Procedures Referred By Contac t Referred To Contact US IMAGING Diagnoses Scrotal swelling Liver transplant recipient (HCC) Procedures US SCROTUM AND CONTENTS US SCROTUM & CONTENTS Sharon Castro MD [address] [place] [address] Us Imaging Referral ID Status Reason Start Date Expiration Date Visits Requested Visits Authorized [id number] Authorized Auto-Generat ed Referral 06/24/2022 06/26/2023 1 1 [facility] for referral (narrative)* Diagnostic Procedure Only (Routine) - Closed Specialty Diagnoses / Procedures [facility] To Contact US IMAGING Diagnoses Scrotal swelling Liver transplant recipient (HCC) Procedures US SCROTUM AND CONTENTS US SCROTUM & CONTENTS Sharon Castro MD [address] [place] [address] Us Imaging Referral ID Status Reason Start Date Expiration Date V isits Requested Visits Authorized [id number] Closed Auto-Generate d Referral 06/24/2022 06/26/2023 1 1 [facility] for referral (narrative)* Diagnostic Procedure Only (Urgent) - Authorized Specialty Diagnoses / Procedures Referred By Contac t Referred To Contact US IMAGING Diagnoses Liver replaced by transplant (HCC) Procedures US DOPPLER COMPLETE DUP-SCAN ARTL GREY ABDL/PEL/SCROT&/RPR ORGN COM Diane Vallecillo APRN.[employer] [address] [place] [address] Us Imaging Referral ID Status Reason Start Date Expiration Date Visits Requested Visits Authorized [id number] Authorized Auto-Generate d Referral Patient Cleared - INN Insurance Found 11/17/2022 12/14/2023 1 1 * Diagnostic Procedure Only (Urgent) - Authorized Specialty Diagnoses / Procedures Referred By Contac t Referred To Contact US IMAGING Diagnoses Liver replaced by transplant (HCC) Procedures US ABD LIVER VASCULAR US ABDOMINAL REAL TIME W/IMAGE LIMITED DUP-SCAN ARTL GREY ABDL/PEL/SCROT&/RPR ORGN COM Diane Vallecillo APRN.[employer] [address] [place] [id number] Us Imaging Referral ID Status Reason Start Date Expiration Date Visits Requested Visits Authorized [id number] Authorized Auto-Generate d Referral Patient Cleared - INN Insurance Found 11/17/2022 12/14/2023 1 1 [facility] for referral (narrative)* Diagnostic Procedure Only (Urgent) - Closed Specialty Diagnoses / Procedures Referred By Contac t Referred To Contact US IMAGING Diagnoses Liver replaced by transplant (HCC) Procedures US DOPPLER COMPLETE DUP-SCAN ARTL GREY ABDL/PEL/SCROT&/RPR ORGN COM Diane Vallecillo APRN.[employer] [address] [place] [address] [place] [address] Referral ID Status Reason Start Date Expiration Date V isits Requested Visits Authorized [id number] Closed Auto-Generated Referral Patient Cleared - INN Insurance Found 11/17/2022 12/14/2023 1 1 * Diagnostic Procedure Only (Urgent) - Closed Specialty Diagnoses / Procedures Referred By Contac t Referred To Contact US IMAGING Diagnoses Liver replaced by transplant (HCC) Procedures US ABD LIVER VASCULAR US ABDOMINAL REAL TIME W/IMAGE LIMITED DUP-SCAN ARTL GREY ABDL/PEL/SCROT&/RPR ORGN COM Diane Valleclilo APRN.[employer] [address] [place] [address] [place] [address] Referral ID Status Reason Start Date Expiration Date V isits Requested Visits Authorized [id number] Closed Auto-Generated Referral Patient Cleared - INN Insurance Found 11/17/2022 12/14/2023 1 1 [facility] for referral (narrative)* Diagnostic Procedure Only (Routine) - Closed Specialty Diagnoses / Procedures Referred By Contac t Referred To Contact CT IMAGING Diagnoses Unilateral inguinal hernia without obstruction or gangrene, recurrence not specified Procedures CT ABD/PEL WO IVCON CT ABD & PELVIS W/O CONTRAST Juan Jose Alonzo MD [address] [place] [address] Ct Imaging [place] [facility] Referral ID Status Reason Start Date Expiration Date Visits Re quested Visits Authorized [id number] Closed 04/30/2021 04/02/2022 1 1 [facility] for referral (narrative)* Diagnostic Procedure Only (Routine) - Closed Specialty Diagnoses / Procedures Referred By Contac t Referred To Contact US IMAGING Diagnoses 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) Procedures US ASCITES SURVEY US ABDOMINAL REAL TIME W/IMAGE LIMITED Dayna Reyes MD [address] [place] [id number] Us Imaging [place] [facility] Referral ID Status Reason Start Date Expiration Date V isits Requested Visits Authorized [id number] Closed Auto-Generate d Referral 02/22/2022 04/02/2022 1 1 [facility] for referral (narrative)* Diagnostic Procedure Only (Routine) - Closed Specialty Diagnoses / Procedures Referred By Contac t Referred To Contact US IMAGING Diagnoses Other ascites Procedures US ASCITES SURVEY US ABDOMINAL REAL TIME W/IMAGE LIMITED Dayna Reyes MD [address] [place] [address] [place] [address] Referral ID Status Reason Start Date Expiration Date V isits Requested Visits Authorized [id number] Closed Auto-Generated Referral Patient Cleared - INN Insurance Found 12/20/2021 01/19/2023 1 1 [facility] for referral (narrative)* Diagnostic Procedure Only (Urgent) - Authorized Specialty Diagnoses / Procedures Referred By Contac t Referred To Contact US IMAGING Diagnoses Elevated LFTs Procedures US DOPPLER COMPLETE DUP-SCAN ARTL GREY ABDL/PEL/SCROT&/RPR ORGN COM Rebecca Mascorro APRN.[employer] [address] [place] [address] Us Imaging [place] [address] Referral ID Status Reason Start Date Expiration Date Visits Requested Visits Authorized [id number] Authorized Auto-Generat ed Referral 02/07/2024 03/07/2025 1 1 * Diagnostic Procedure Only (Urgent) - Authorized Specialty Diagnoses / Procedures Referred By Contac t Referred To Contact US IMAGING Diagnoses Elevated LFTs Procedures US ABD LIVER VASCULAR US ABDOMINAL REAL TIME W/IMAGE LIMITED DUP-SCAN ARTL GREY ABDL/PEL/SCROT&/RPR ORGN COM Rebecca Mascorro APRN.[employer] [address] [place] [address] Us Imaging [place] [address] Referral ID Status Reason Start Date Expiration Date Visits Requested Visits Authorized [id number] Authorized Auto-Generat ed Referral 02/07/2024 03/07/2025 1 1 [facility] for referral (narrative)* Diagnostic Procedure Only (Urgent) - Closed Specialty Diagnoses / Procedures Referred By Contac t Referred To Contact US IMAGING Diagnoses Elevated LFTs Procedures US DOPPLER COMPLETE DUP-SCAN ARTL GERY ABDL/PEL/SCROT&/RPR ORGN COM Rebecca Mascorro APRN.[employer] [address] [place] [phone] Us Imaging [facility] Referral ID Status Reason Start Date Expiration Date V isits Requested Visits Authorized [id number] Closed Auto-Generate d Referral 02/07/2024 03/07/2025 1 1 * Diagnostic Procedure Only (Urgent) - Closed Specialty Diagnoses / Procedures Referred By Contac t Referred To Contact US IMAGING Diagnoses Elevated LFTs Procedures US ABD LIVER VASCULAR US ABDOMINAL REAL TIME W/IMAGE LIMITED DUP-SCAN ARTL GREY ABDL/PEL/SCROT&/RPR ORGN COM Rebecca Mascorro APRN.[employer] [address] [place], [place] [id number] Us Imaging [place] [address] Referral ID Status Reason Start Date Expiration Date V isits Requested Visits Authorized [id number] Closed Auto-Generate d Referral 02/07/2024 03/07/2025 1 1 [facility] for visit Narrative* Diagnostic Procedure Only (Routine) - Closed Specialty Diagnoses / Procedures Referred By Contac t Referred To Contact US IMAGING Diagnoses Cirrhosis of liver with ascites, unspecified hepatic cirrhosis type (HCC) Procedures US DOPPLER COMPLETE DUP-SCAN ARTL GREY ABDL/PEL/SCROT&/RPR ORGN COM Dayna Reyes MD [address] [place] [address] Us Imaging Referral ID Status Reason Start Date Expiration Date Visits Re quested Visits Authorized [id number] Closed 07/13/2021 04/02/2022 1 1 [facility] for visit Narrative* Diagnostic Procedure Only (Routine) - Closed Specialty Diagnoses / Procedures Referred By Contac t Referred To Contact US IMAGING Diagnoses Cirrhosis of liver with ascites, unspecified hepatic cirrhosis type (HCC) Procedures US ABD LIVER VASCULAR US ABDOMINAL REAL TIME W/IMAGE LIMITED DUP-SCAN ARTL GREY ABDL/PEL/SCROT&/RPR ORGN COM Dayna Reyes MD [address] [place] [address] Us Imaging Referral ID Status Reason Start Date Expiration Date V isits Requested Visits Authorized [id number] Closed Auto-Generate d Referral 11/30/2021 04/02/2022 1 1 [facility] for visit Narrative* Diagnostic Procedure Only (Routine) - Closed Specialty Diagnoses / Procedures [facility] [facility] Referred To Contact US IMAGING Diagnoses Cirrhosis of liver with ascites, unspecified hepatic cirrhosis type (HCC) Procedures US ASCITES SURVEY US ABDOMINAL REAL TIME W/IMAGE LIMITED Dayna Reyes MD [address] [place] [address] Us Imaging Referral ID Status Reason Start Date Expiration Date V isits Requested Visits Authorized [id number] Closed Auto-Generate d Referral 01/20/2022 04/02/2022 1 1 [facility] for visit Narrative* Diagnostic Procedure Only (Routine) - Closed Specialty Diagnoses / Procedures [facility] Diagnoses Other ascites Procedures ABDOM PARACENTESIS DX/THER W IMAGING GUIDANCE ABDOM PARACENTESIS DX/THER W IMAGING GUIDANCE Dayna Reyes MD [address] [place] [address] [facility] [address] [address] Referral ID Status Reason Start Date Expiration Date Visits Re quested Visits Authorized [id number] Closed 07/13/2021 04/02/2022 52 1 [facility] for visit Narrative* Diagnostic Procedure Only (Routine) - Closed Specialty Diagnoses / Procedures [facility] Referred To Contact US IMAGING Diagnoses Unilateral inguinal hernia without obstruction or gangrene, recurrence not specified Hydrocele, unspecified hydrocele type Procedures US SCROTUM AND CONTENTS US SCROTUM & CONTENTS Dayna Reyes MD [address] [place] [address] Us Imaging Referral ID Status Reason Start Date Expiration Date V isits Requested Visits Authorized [id number] Closed Auto-Generate d Referral 04/13/2022 05/13/2023 1 1 [facility] for visit Narrative* Diagnostic Procedure Only (Routine) - Closed Specialty Diagnoses / Procedures Referred By Contac t Referred To Contact US IMAGING Diagnoses Scrotal swelling Liver transplant recipient (HCC) Procedures US SCROTUM AND CONTENTS US SCROTUM & CONTENTS Sharon Castro MD [address] [place] [address] Us Imaging Referral ID Status Reason Start Date Expiration Date V isits Requested Visits Authorized [id number] Closed Auto-Generate d Referral 06/24/2022 06/26/2023 1 1 [facility] for visit Narrative* Diagnostic Procedure Only (Urgent) - Closed Specialty Diagnoses / Procedures [facility] Referred To Contact US IMAGING Diagnoses Liver replaced by transplant (HCC) Procedures US DOPPLER COMPLETE DUP-SCAN ARTL GREY ABDL/PEL/SCROT&/RPR ORGN COM Diane Vallecillo APRN.[employer] [address] [place] [address] Us Imaging [place] [address] Referral ID Status Reason Start Date Expiration Date V isits Requested Visits Authorized [id number] Closed Auto-Generated Referral Patient Cleared - INN Insurance Found 11/17/2022 12/14/2023 1 1 [facility] for visit Narrative* Diagnostic Procedure Only (Routine) - Closed Specialty Diagnoses / Procedures [facility] Referred To Contact CT IMAGING Diagnoses Unilateral inguinal hernia without obstruction or gangrene, recurrence not specified Procedures CT ABD/PEL WO IVCON CT ABD & PELVIS W/O CONTRAST Juan Jose Alonzo MD [address] [place] [id number] Imaging [place] [address] Referral ID Status Reason Start Date Expiration Date Visits Re quested Visits Authorized [id number] Closed 04/30/2021 04/02/2022 1 1 [facility] for visit Narrative* Diagnostic Procedure Only (Routine) - Closed Specialty Diagnoses / Procedures [facility] Referred To Contact US IMAGING Diagnoses 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) Procedures US ASCITES SURVEY US ABDOMINAL REAL TIME W/IMAGE LIMITED Dayna Reyes MD [address] [facility] [place] [id number] Us Imaging [facility] Referral ID Status Reason Start Date Expiration Date V isits Requested Visits Authorized [id number] Closed Auto-Generate d Referral 02/22/2022 04/02/2022 1 1 [facility] for visit Narrative* Diagnostic Procedure Only (Routine) - Closed Specialty Diagnoses / Procedures Referred By Contac t Referred To Contact US IMAGING Diagnoses Other ascites Procedures US ASCITES SURVEY US ABDOMINAL REAL TIME W/IMAGE LIMITED Dayna Reyes MD [address] [place] [address] Us Imaging [place] [address] Referral ID Status Reason Start Date Expiration Date V isits Requested Visits Authorized [id number] Closed Auto-Generated Referral Patient Cleared - INN Insurance Found 12/20/2021 01/19/2023 1 1 [facility] for visit Narrative* Diagnostic Procedure Only (Urgent) - Closed Specialty Diagnoses / Procedures Referred By Contac t Referred To Contact US IMAGING Diagnoses Elevated LFTs Procedures US DOPPLER COMPLETE DUP-SCAN ARTL GREY ABDL/PEL/SCROT&/RPR ORGN COM Rebecca Mascorro, INVENTORY MANAGER.[employer] [address] [place] [id number] Us Imaging [facility] Referral ID Status Reason Start Date Expiration Date V isits Requested Visits Authorized [id number] Closed Auto-Generate d Referral 02/07/2024 03/07/2025 1 1 [facility] Summary Purpose Family History No Family History Records Found Relationship Condition Age at Onset Recorded Date/T tobi father Heart disease Unknown Diabetes mellitus Unknown brother Heart disease Unknown brother Diabetes mellitus Unknown Advance Directives No Advanced Directives Records FoundDocuments on File Type Date Recorded 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 Advance Directive(s) 08/18/2020 11:29 AM Advance Directive(s) 04/22/2020 11:24 AM Advance Directive(s) 10/25/2019 11:44 AM Advance Directive(s) 10/23/2019 5:41 PM Advance Directive(s) 10/11/2019 1:01 PM [place] in [place] Advance Directive(s) 11/06/2018 2:18 PM Advance Directive(s) 10/15/2018 2:52 PM Advance Directive(s) 10/10/2018 10:55 AM Advance Directive(s) 09/24/2018 9:20 AM Advance Directive(s) 08/31/2018 9:54 AM Advance Directive(s) 08/31/2018 1:17 PM Documents on File Type Date Recorded 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 Advance Directive(s) 08/18/2020 11:29 AM Advance Directive(s) 04/22/2020 11:24 AM Advance Directive(s) 10/25/2019 11:44 AM Advance Directive(s) 10/23/2019 5:41 PM Advance Directive(s) 10/11/2019 1:01 PM [place] in [place] Advance Directive(s) 11/06/2018 2:18 PM Advance Directive(s) 10/15/2018 2:52 PM Advance Directive(s) 10/10/2018 10:55 AM Advance Directive(s) 09/24/2018 9:20 AM Advance Directive(s) 08/31/2018 9:54 AM Advance Directive(s) 08/31/2018 1:17 PM Documents on File Type Date Recorded 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 Advance Directive(s) 08/31/2018 1:17 PM Documents on File Type Date Recorded 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 Advance Directive(s) 08/31/2018 1:17 PM Advance Directive Response Recorded Date/ Time Advance Directives No January 13, 2017 2:50pm Hospital Course Note NAME: SANDRA AGUILAR#: [id number] DATE: 12/25/2017DISCHARGE DATE: 12/27/2017DISCHARGE SUMMARYHISTORY OF PRESENT [...] W/INTERP&POSTPROC DIFF WORK STATION Dayna Reyes MD [address] [facility] [place] [address] Mr Imaging Referral ID Status Reason Start Date Expiration Date V isits Requested Visits Authorized [id number] Closed Auto-Generate d Referral 06/17/2021 04/02/2022 1 1 Specialty Diagnoses / Procedures Referred By Melinda lopez Referred To Contact MR IMAGING Diagnoses 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) Procedures US DOPPLER COMPLETE DUP-SCAN ARTL GREY ABDL/PEL/SCROT&/RPR ORGN COM Dayna Reyes MD [address] [facility] [place] [address] Us Imaging Referral ID Status Reason Start Date Expiration Date Visits Re quested Visits Authorized [id number] Closed 07/13/2021 04/02/2022 1 1 Specialty Diagnoses / Procedures Referred By Contac t Referred To Contact US IMAGING Diagnoses 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) Procedures US ABD LIVER VASCULAR US ABDOMINAL REAL TIME W/IMAGE LIMITED DUP-SCAN ARTL GREY ABDL/PEL/SCROT&/RPR ORGN COM Dayna Reyes MD [address] [place] [address] Us Imaging Referral ID Status Reason Start Date Expiration Date Visits Re quested Visits Authorized [id number] Closed 07/13/2021 04/02/2022 1 1 Specialty Diagnoses / Procedures Referred By Contac t Referred To Contact CT IMAGING Diagnoses Lung nodules Procedures CT CHEST WO IVCON DIAGNOSTIC COMPUTED TOMOGRAPHY THORAX W/O CNTRST Dayna Reyes MD [address] [facility] [place] [address] Ct Imaging Referral ID Status Reason Start Date Expiration Date Visits Requested Visits Authorized [id number] Authorized Auto-Generat ed Referral 07/13/2021 04/02/2022 1 1 Specialty Diagnoses / Procedures Referred By Contac t Referred To Contact Dermatology Diagnoses 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 60-74 MINUTES Dayna Reyes MD [address] [facility] [place] [place] [address] Referral ID Status Reason Start Date Expiration Date Visits Requested Visits Authorized [id number] Pending Review PCP Requested Referral 10/19/2021 10/18/2022 1 1 Specialty Diagnoses / Procedures Referred By Contac t Referred To Contact Diagnoses Preoperative examination Unilateral inguinal hernia without obstruction or gangrene, recurrence not specified Procedures IN PERSON CONSULT TO [facility] Kulwinder Landry MD [address] [facility] [place] [place] [address] Referral ID Status Reason Start Date Expiration Date Visits Requested Visits Authorized [id number] Ref Not Required PCP Requested Referral 10/19/2021 01/16/2022 1 1 Specialty Diagnoses / Procedures Referred By Contac t Referred To Contact [facility] Diagnoses Preoperative examination Unilateral inguinal hernia without obstruction or gangrene, recurrence not specified Procedures ECG COMPLETE ECG ROUTINE ECG W/LEAST 12 LDS W/I&R Kulwinder Landry MD [address] [place] [address] [address] Referral ID Status Reason Start Date Expiration Date Visits Requested Visits Authorized [id number] Pending Review Auto-Generat ed Referral 10/19/2021 10/18/2022 1 1 Specialty Diagnoses / Procedures Referred By Contac t Referred To Contact Diagnoses Preoperative examination Unilateral inguinal hernia without obstruction or gangrene, recurrence not specified Procedures CONSULT [facility] OFF[facility]/OUTPATIENT 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) Procedures REFERRAL FOR TRANSPLANT WAITLIST AUTHORIZATION Dayna Reyes MD [address] [place] [address] [facility] [address] [place] [address] Referral ID Status Reason Start Date Expiration Date Visits Requested Visits Authorized [id number] Pending Review PCP Requested Referral 12/23/2021 12/23/2022 99 99 Referral ID Status Reason Start Date Expiration Date V isits Requested Visits Authorized [id number] Closed Auto-Generate d Referral 07/13/2021 04/02/2022 1 1 Specialty Diagnoses / Procedures Referred By Contac t Referred To Contact Diagnoses Preoperative examination Unilateral inguinal hernia without obstruction or gangrene, recurrence not specified Procedures IN PERSON CONSULT TO [facility] Ryley Sanabria MD [address] [place] [address] Referral ID Status Reason Start Date Expiration Date Visits Requested Visits Authorized [id number] Ref Not Required PCP Requested Referral 2 04/10/2022 1 1 Specialty Diagnoses / Procedures Referred By Contac t Referred [facility] Diagnoses Preoperative examination Unilateral inguinal hernia without obstruction or gangrene, recurrence not specified Procedures ECG COMPLETE ECG ROUTINE ECG W/LEAST 12 LDS W/I&R Ryley Sanabria MD [address] [place] [address] [place] [address] Referral ID Status Reason Start Date Expiration Date Visits Requested Visits Authorized [id number] Pending Review Auto-Generat ed Referral 2 01/10/2023 1 1 Specialty Diagnoses / Procedures Referred By Contac t Referred To Contact Diagnoses Preoperative examination Unilateral inguinal hernia without obstruction or gangrene, recurrence not specified Procedures CONSULT TO [facility] OFF[facility]/OUTPATIENT [facility] 60-74 MINUTES Ryley Sanabria MD [facility] [place] [address] Referral ID Status Reason Start Date Expiration Date Visits Requested Visits Authorized [id number] Pending Review PCP Requested Referral 2 01/10/2023 1 1 Specialty Diagnoses / Procedures Referred By Contac t Referred To Contact CT IMAGING Diagnoses Unilateral inguinal hernia without obstruction or gangrene, recurrence not specified Procedures CT ABD/PEL WO IVCON CT ABD & PELVIS W/O CONTRAST Kulwinder Landry MD [address] [place] [address] Ct Imaging Referral ID Status Reason Start Date Expiration Date Visits Requested Visits Authorized [id number] Pending Review Auto-Generat ed Referral 2 04/16/2023 1 1 Specialty Diagnoses / Procedures Referred By Contac t Referred To Contact CT IMAGING Diagnoses Cirrhosis of liver with ascites, unspecified hepatic cirrhosis type (HCC) Procedures CT LIVER W IVCON CT ABDOMEN W/CONTRAST Dayna Reyes MD [address] [place] [address] Ct Imaging Referral ID Status Reason Start Date Expiration Date V isits Requested Visits Authorized [id number] Closed Auto-Generate d Referral 04/13/2022 05/13/2023 1 1 Specialty Diagnoses / Procedures Referred By Contac t Referred To Contact CT IMAGING Diagnoses Unilateral inguinal hernia without obstruction or gangrene, recurrence not specified Procedures CT ABD/PEL WO IVCON CT ABD & PELVIS W/O CONTRAST Nanci Kamara APRN.[employer] [address] [address] [address] Imaging Referral ID Status Reason Start Date Expiration Date Visits Requested Visits Authorized [id number] Pending Review Auto-Generat ed Referral 07/13/2022 08/12/2023 1 1 Reason evaluate and treat Diagnosis 1 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) Referral Organization [facility] urosurgery Referring Provider First Name Tiffany Referring Provider Last Name Fortunato Referring Provider Specialty Neurologica l Surgery Referred Organization [facility] Referred Provider DOMINIC GARCIA Referred Address [address] [place], [place],[address] Referred Provider Specialty Neurological Surgery Referral Priority Routine General Notes Fore, Danielle M 023 11:41:10 AM >Received today and waiting for office notes to be locked before sending referral Referral ID Status Reason Start Date Expiration Date V VCVts Requested Visits Authorized [id number] Closed Auto-Generate d Referral 08/01/2022 04/02/2023 2 1 Referral ID Status Reason Start Date Expiration Date V isits Requested Visits Authorized [id number] Closed Auto-Generate d Referral 03/22/2022 04/02/2022 2 2 Specialty Diagnoses / Procedures Referred By Contac t Referred To Contact [facility] Diagnoses Acute left-sided low back pain with left-sided sciatica S/P lumbar laminectomy Procedures CONSULT TO PHYSICAL THERAPY PHYSICAL THERAPY EVALUATION HIGH COMPLEX 45 MINS Jane Hernandez PA-C [address] [place] [address] [facility] [address] [place] [address] Referral ID Status Reason Start Date Expiration Date Visits Requested Visits Authorized [id number] Pending Review Auto-Generat ed Referral 12/09/2022 12/09/2023 [...] section and content) DATE CREATED AUTHOR 02/24/2018 [facility] DATE CREATED AUTHOR AUTHOR'S ORGANIZ ATION 03/18/2018 [facility] DATE CREATED AUTHOR AUTHOR'S ORGANIZ ATION 07/06/[address] [facility] DATE CREATED AUTHOR AUTHOR'S ORGANIZ ATION 02/24/2022 [facility] DATE CREATED AUTHOR AUTHOR'S ORGANIZ ATION 06/12/2022 [facility] DATE CREATED AUTHOR AUTHOR'S ORGANIZ ATION 02/13/2023 [facility] DATE CREATED AUTHOR AUTHOR'S ORGANIZ ATION 10/23/2024 [facility] DATE CREATED AUTHOR AUTHOR'S ORGANIZ ATION 11/20/2024 [facility] Source Comments (unrecognize d section and content) In the event this informatio n is protected by the Federal Confidentiality of Alcohol and Drug Abuse Patient Records regulations: The Federal rules restrict any use of the information to criminally investigate or prosecute any alcohol or drug abuse patient.[facility] the event this information is protected by the Federal Confidentiality of Alcohol and Drug Abuse Patient Records regulations: The Federal rules restrict any use of the information to criminally investigate or prosecute any alcohol or drug abuse patient.[facility] the event this information is protected by the Federal Confidentiality of Alcohol and Drug Abuse Patient Records regulations: The Federal rules restrict any use of the information to criminally investigate or prosecute any alcohol or drug abuse patient.[facility] the event this information is protected by the Federal Confidentiality of Alcohol and Drug Abuse Patient Records regulations: The Federal rules restrict any use of the information to criminally investigate or prosecute any alcohol or drug abuse patient.[facility] the event this information is protected by the Federal Confidentiality of Alcohol and Drug Abuse Patient Records regulations: The Federal rules restrict any use of the information to criminally investigate or prosecute any alcohol or drug abuse patient.[facility] the event this information is protected by the Federal Confidentiality of Alcohol and Drug Abuse Patient Records regulations: The Federal rules restrict any use of the information to criminally investigate or prosecute any alcohol or drug abuse patient.[facility] the event this information is protected by the Federal Confidentiality of Alcohol and Drug Abuse Patient Records regulations: The Federal rules restrict any use of the information to criminally investigate or prosecute any alcohol or drug abuse patient.[facility] the event this information is protected by the Federal Confidentiality of Alcohol and Drug Abuse Patient Records regulations: The Federal rules restrict any use of the information to criminally investigate or prosecute any alcohol or drug abuse patient.[facility] the event this information is protected by the Federal Confidentiality of Alcohol and Drug Abuse Patient Records regulations: The Federal rules restrict any use of the information to criminally investigate or prosecute any alcohol or drug abuse patient.[facility] the event this information is protected by the Federal Confidentiality of Alcohol and Drug Abuse Patient Records regulations: The Federal rules restrict any use of the information to criminally investigate or prosecute any alcohol or drug abuse patient.[facility] the event this information is protected by the Federal Confidentiality of Alcohol and Drug Abuse Patient Records regulations: The Federal rules restrict any use of the information to criminally investigate or prosecute any alcohol or drug abuse patient.[facility] the event this information is protected by the Federal Confidentiality of Alcohol and Drug Abuse Patient Records regulations: The Federal rules restrict any use of the information to criminally investigate or prosecute any alcohol or drug abuse patient.[facility] the event this information is protected by the Federal Confidentiality of Alcohol and Drug Abuse Patient Records regulations: The Federal rules restrict any use of the information to criminally investigate or prosecute any alcohol or drug abuse patient.[facility] the event this information is protected by the Federal Confidentiality of Alcohol and Drug Abuse Patient Records regulations: The Federal rules restrict any use of the information to criminally investigate or prosecute any alcohol or drug abuse patient.[facility] the event this information is protected by the Federal Confidentiality of Alcohol and Drug Abuse Patient Records regulations: The Federal rules restrict any use of the information to criminally investigate or prosecute any alcohol or drug abuse patient.[facility] the event this information is protected by the Federal Confidentiality of Alcohol and Drug Abuse Patient Records regulations: The Federal rules restrict any use of the information to criminally investigate or prosecute any alcohol or drug abuse patient.[facility] the event this information is protected by the Federal Confidentiality of Alcohol and Drug Abuse Patient Records regulations: The Federal rules restrict any use of the information to criminally investigate or prosecute any alcohol or drug abuse patient.[facility] the event this information is protected by the Federal Confidentiality of Alcohol and Drug Abuse Patient Records regulations: The Federal rules restrict any use of the information to criminally investigate or prosecute any alcohol or drug abuse patient.[facility]In the event this information is protected by the Federal Confidentiality of Alcohol and Drug Abuse Patient Records regulations: The Federal rules restrict any use of the information to criminally investigate or prosecute any alcohol or drug abuse patient.[facility]In the event this information is protected by the Federal Confidentiality of Alcohol and Drug Abuse Patient Records regulations: The Federal rules restrict any use of the information to criminally investigate or prosecute any alcohol or drug abuse patient.[facility]In the event this information is protected by the Federal Confidentiality of Alcohol and Drug Abuse Patient Records regulations: The Federal rules restrict any use of the information to criminally investigate or prosecute any alcohol or drug abuse patient.[facility]In the event this information is protected by the Federal Confidentiality of Alcohol and Drug Abuse Patient Records regulations: The Federal rules restrict any use of the information to criminally investigate or prosecute any alcohol or drug abuse patient.[facility] the event this information is protected by the Federal Confidentiality of Alcohol and Drug Abuse Patient Records regulations: The Federal rules restrict any use of the information to criminally investigate or prosecute any alcohol or drug abuse patient.[facility]In the event this information is protected by the Federal Confidentiality of Alcohol and Drug Abuse Patient Records regulations: The Federal rules restrict any use of the information to criminally investigate or prosecute any alcohol or drug abuse patient.[facility]In the event this information is protected by the Federal Confidentiality of Alcohol and Drug Abuse Patient Records regulations: The Federal rules restrict any use of the information to criminally investigate or prosecute any alcohol or drug abuse patient.[facility]In the event this information is protected by the Federal Confidentiality of Alcohol and Drug Abuse Patient Records regulations: The Federal rules restrict any use of the information to criminally investigate or prosecute any alcohol or drug abuse patient.[facility]In the event this information is protected by the Federal Confidentiality of Alcohol and Drug Abuse Patient Records regulations: The Federal rules restrict any use of the information to criminally investigate or prosecute any alcohol or drug abuse patient.[facility]In the event this information is protected by the Federal Confidentiality of Alcohol and Drug Abuse Patient Records regulations: The Federal rules restrict any use of the information to criminally investigate or prosecute any alcohol or drug abuse patient.[facility]In the event this information is protected by the Federal Confidentiality of Alcohol and Drug Abuse Patient Records regulations: The Federal rules restrict any use of the information to criminally investigate or prosecute any alcohol or drug abuse patient.[facility]In the event this information is protected by the Federal Confidentiality of Alcohol and Drug Abuse Patient Records regulations: The Federal rules restrict any use of the information to criminally investigate or prosecute any alcohol or drug abuse patient.[facility]In the event this information is protected by the Federal Confidentiality of Alcohol and Drug Abuse Patient Records regulations: The Federal rules restrict any use of the information to criminally investigate or prosecute any alcohol or drug abuse patient.[facility]In the event this information is protected by the Federal Confidentiality of Alcohol and Drug Abuse Patient Records regulations: The Federal rules restrict any use of the information to criminally investigate or prosecute any alcohol or drug abuse patient.[facility]In the event this information is protected by the Federal Confidentiality of Alcohol and Drug Abuse Patient Records regulations: The Federal rules restrict any use of the information to criminally investigate or prosecute any alcohol or drug abuse patient.[facility]In the event this information is protected by the Federal Confidentiality of Alcohol and Drug Abuse Patient Records regulations: The Federal rules restrict any use of the information to criminally investigate or prosecute any alcohol or drug abuse patient.[facility]In the event this information is protected by the Federal Confidentiality of Alcohol and Drug Abuse Patient Records regulations: The Federal rules restrict any use of the information to criminally investigate or prosecute any alcohol or drug abuse patient.[facility]In the event this information is protected by the Federal Confidentiality of Alcohol and Drug Abuse Patient Records regulations: The Federal rules restrict any use of the information to criminally investigate or prosecute any alcohol or drug abuse patient.[facility]In the event this information is protected by the Federal Confidentiality of Alcohol and Drug Abuse Patient Records regulations: The Federal rules restrict any use of the information to criminally investigate or prosecute any alcohol or drug abuse patient.[facility]In the event this information is protected by the Federal Confidentiality of Alcohol and Drug Abuse Patient Records regulations: The Federal rules restrict any use of the information to criminally investigate or prosecute any alcohol or drug abuse patient.[facility]In the event this information is protected by the Federal Confidentiality of Alcohol and Drug Abuse Patient Records regulations: The Federal rules restrict any use of the information to criminally investigate or prosecute any alcohol or drug abuse patient.[facility] HospitalIn the event this information is protected by the Federal Confidentiality of Alcohol and Drug Abuse Patient Records regulations: The Federal rules restrict any use of the information to criminally investigate or prosecute any alcohol or drug abuse patient.[facility] HospitalIn the event this information is protected by the Federal Confidentiality of Alcohol and Drug Abuse Patient Records regulations: The Federal rules restrict any use of the information to criminally investigate or prosecute any alcohol or drug abuse patient.[facility]In the event this information is protected by the Federal Confidentiality of Alcohol and Drug Abuse Patient Records regulations: The Federal rules restrict any use of the information to criminally investigate or prosecute any alcohol or drug abuse patient.[facility]In the event this information is protected by the Federal Confidentiality of Alcohol and Drug Abuse Patient Records regulations: The Federal rules restrict any use of the information to criminally investigate or prosecute any alcohol or drug abuse patient.[facility] HospitalIn the event this information is protected by the Federal Confidentiality of Alcohol and Drug Abuse Patient Records regulations: The Federal rules restrict any use of the information to criminally investigate or prosecute any alcohol or drug abuse patient.[facility] HospitalIn the event this information is protected by the Federal Confidentiality of Alcohol and Drug Abuse Patient Records regulations: The Federal rules restrict any use of the information to criminally investigate or prosecute any alcohol or drug abuse patient.[facility]In the event this information is protected by the Federal Confidentiality of Alcohol and Drug Abuse Patient Records regulations: The Federal rules restrict any use of the information to criminally investigate or prosecute any alcohol or drug abuse patient.[facility] HospitalIn the event this information is protected by the Federal Confidentiality of Alcohol and Drug Abuse Patient Records regulations: The Federal rules restrict any use of the information to criminally investigate or prosecute any alcohol or drug abuse patient.[facility]In the event this information is protected by the Federal Confidentiality of Alcohol and Drug Abuse Patient Records regulations: The Federal rules restrict any use of the information to criminally investigate or prosecute any alcohol or drug abuse patient.[facility]In the event this information is protected by the Federal Confidentiality of Alcohol and Drug Abuse Patient Records regulations: The Federal rules restrict any use of the information to criminally investigate or prosecute any alcohol or drug abuse patient.[facility]In the event this information is protected by the Federal Confidentiality of Alcohol and Drug Abuse Patient Records regulations: The Federal rules restrict any use of the information to criminally investigate or prosecute any alcohol or drug abuse patient.[facility] HospitalIn the event this information is protected by the Federal Confidentiality of Alcohol and Drug Abuse Patient Records regulations: The Federal rules restrict any use of the information to criminally investigate or prosecute any alcohol or drug abuse patient.[facility] HospitalIn the event this information is protected by the Federal Confidentiality of Alcohol and Drug Abuse Patient Records regulations: The Federal rules restrict any use of the information to criminally investigate or prosecute any alcohol or drug abuse patient.[facility] HospitalIn the event this information is protected by the Federal Confidentiality of Alcohol and Drug Abuse Patient Records regulations: The Federal rules restrict any use of the information to criminally investigate or prosecute any alcohol or drug abuse patient.[facility]In the event this information is protected by the Federal Confidentiality of Alcohol and Drug Abuse Patient Records regulations: The Federal rules restrict any use of the information to criminally investigate or prosecute any alcohol or drug abuse patient.[facility] HospitalIn the event this information is protected by the Federal Confidentiality of Alcohol and Drug Abuse Patient Records regulations: The Federal rules restrict any use of the information to criminally investigate or prosecute any alcohol or drug abuse patient.[facility] HospitalIn the event this information is protected by the Federal Confidentiality of Alcohol and Drug Abuse Patient Records regulations: The Federal rules restrict any use of the information to criminally investigate or prosecute any alcohol or drug abuse patient.[facility] HospitalIn the event this information is protected by the Federal Confidentiality of Alcohol and Drug Abuse Patient Records regulations: The Federal rules restrict any use of the information to criminally investigate or prosecute any alcohol or drug abuse patient.[facility] HospitalIn the event this information is protected by the Federal Confidentiality of Alcohol and Drug Abuse Patient Records regulations: The Federal rules restrict any use of the information to criminally investigate or prosecute any alcohol or drug abuse patient.[facility] HospitalIn the event this information is protected by the Federal Confidentiality of Alcohol and Drug Abuse Patient Records regulations: The Federal rules restrict any use of the information to criminally investigate or prosecute any alcohol or drug abuse patient.[facility]In the event this information is protected by the Federal Confidentiality of Alcohol and Drug Abuse Patient Records regulations: The Federal rules restrict any use of the information to criminally investigate or prosecute any alcohol or drug abuse patient.[facility] HospitalIn the event this information is protected by the Federal Confidentiality of Alcohol and Drug Abuse Patient Records regulations: The Federal rules restrict any use of the information to criminally investigate or prosecute any alcohol or drug abuse patient.[facility]In the event this information is protected by the Federal Confidentiality of Alcohol and Drug Abuse Patient Records regulations: The Federal rules restrict any use of the information to criminally investigate or prosecute any alcohol or drug abuse patient.[facility]In the event this information is protected by the Federal Confidentiality of Alcohol and Drug Abuse Patient Records regulations: The Federal rules restrict any use of the information to criminally investigate or prosecute any alcohol or drug abuse patient.[facility]In the event this information is protected by the Federal Confidentiality of Alcohol and Drug Abuse Patient Records regulations: The Federal rules restrict any use of the information to criminally investigate or prosecute any alcohol or drug abuse patient.[facility] HospitalIn the event this information is protected by the Federal Confidentiality of Alcohol and Drug Abuse Patient Records regulations: The Federal rules restrict any use of the information to criminally investigate or prosecute any alcohol or drug abuse patient.[facility] HospitalIn the event this information is protected by the Federal Confidentiality of Alcohol and Drug Abuse Patient Records regulations: The Federal rules restrict any use of the information to criminally investigate or prosecute any alcohol or drug abuse patient.[facility]In the event this information is protected by the Federal Confidentiality of Alcohol and Drug Abuse Patient Records regulations: The Federal rules restrict any use of the information to criminally investigate or prosecute any alcohol or drug abuse patient.[facility]In the event this information is protected by the Federal Confidentiality of Alcohol and Drug Abuse Patient Records regulations: The Federal rules restrict any use of the information to criminally investigate or prosecute any alcohol or drug abuse patient.[facility]In the event this information is protected by the Federal Confidentiality of Alcohol and Drug Abuse Patient Records regulations: The Federal rules restrict any use of the information to criminally investigate or prosecute any alcohol or drug abuse patient.[facility]In the event this information is protected by the Federal Confidentiality of Alcohol and Drug Abuse Patient Records regulations: The Federal rules restrict any use of the information to criminally investigate or prosecute any alcohol or drug abuse patient.[facility]In the event this information is protected by the Federal Confidentiality of Alcohol and Drug Abuse Patient Records regulations: The Federal rules restrict any use of the information to criminally investigate or prosecute any alcohol or drug abuse patient.[facility] HospitalIn the event this information is protected by the Federal Confidentiality of Alcohol and Drug Abuse Patient Records regulations: The Federal rules restrict any use of the information to criminally investigate or prosecute any alcohol or drug abuse patient.[facility]In the event this information is protected by the Federal Confidentiality of Alcohol and Drug Abuse Patient Records regulations: The Federal rules restrict any use of the information to criminally investigate or prosecute any alcohol or drug abuse patient.[facility] HospitalIn the event this information is protected by the Federal Confidentiality of Alcohol and Drug Abuse Patient Records regulations: The Federal rules restrict any use of the information to criminally investigate or prosecute any alcohol or drug abuse patient.[facility]In the event this information is protected by the Federal Confidentiality of Alcohol and Drug Abuse Patient Records regulations: The Federal rules restrict any use of the information to criminally investigate or prosecute any alcohol or drug abuse patient.[facility]In the event this information is protected by the Federal Confidentiality of Alcohol and Drug Abuse Patient Records regulations: The Federal rules restrict any use of the information to criminally investigate or prosecute any alcohol or drug abuse patient.[facility]In the event this information is protected by the Federal Confidentiality of Alcohol and Drug Abuse Patient Records regulations: The Federal rules restrict any use of the information to criminally investigate or prosecute any alcohol or drug abuse patient.[facility]In the event this information is protected by the Federal Confidentiality of Alcohol and Drug Abuse Patient Records regulations: The Federal rules restrict any use of the information to criminally investigate or prosecute any alcohol or drug abuse patient.[facility]In the event this information is protected by the Federal Confidentiality of Alcohol and Drug Abuse Patient Records regulations: The Federal rules restrict any use of the information to criminally investigate or prosecute any alcohol or drug abuse patient.[facility]In the event this information is protected by the Federal Confidentiality of Alcohol and Drug Abuse Patient Records regulations: The Federal rules restrict any use of the information to criminally investigate or prosecute any alcohol or drug abuse patient.[facility]In the event this information is protected by the Federal Confidentiality of Alcohol and Drug Abuse Patient Records regulations: The Federal rules restrict any use of the information to criminally investigate or prosecute any alcohol or drug abuse patient.[facility]In the event this information is protected by the Federal Confidentiality of Alcohol and Drug Abuse Patient Records regulations: The Federal rules restrict any use of the information to criminally investigate or prosecute any alcohol or drug abuse patient.[facility]In the event this information is protected by the Federal Confidentiality of Alcohol and Drug Abuse Patient Records regulations: The Federal rules restrict any use of the information to criminally investigate or prosecute any alcohol or drug abuse patient.[facility]In the event this information is protected by the Federal Confidentiality of Alcohol and Drug Abuse Patient Records regulations: The Federal rules restrict any use of the information to criminally investigate or prosecute any alcohol or drug abuse patient.[facility]In the event this information is protected by the Federal Confidentiality of Alcohol and Drug Abuse Patient Records regulations: The Federal rules restrict any use of the information to criminally investigate or prosecute any alcohol or drug abuse patient.[facility]In the event this information is protected by the Federal Confidentiality of Alcohol and Drug Abuse Patient Records regulations: The Federal rules restrict any use of the information to criminally investigate or prosecute any alcohol or drug abuse patient.[facility]In the event this information is protected by the Federal Confidentiality of Alcohol and Drug Abuse Patient Records regulations: The Federal rules restrict any use of the information to criminally investigate or prosecute any alcohol or drug abuse patient.[facility]In the event this information is protected by the Federal Confidentiality of Alcohol and Drug Abuse Patient Records regulations: The Federal rules restrict any use of the information to criminally investigate or prosecute any alcohol or drug abuse patient.[facility]In the event this information is protected by the Federal Confidentiality of Alcohol and Drug Abuse Patient Records regulations: The Federal rules restrict any use of the information to criminally investigate or prosecute any alcohol or drug abuse patient.[facility]In the event this information is protected by the Federal Confidentiality of Alcohol and Drug Abuse Patient Records regulations: The Federal rules restrict any use of the information to criminally investigate or prosecute any alcohol or drug abuse patient.[facility]In the event this information is protected by the Federal Confidentiality of Alcohol and Drug Abuse Patient Records regulations: The Federal rules restrict any use of the information to criminally investigate or prosecute any alcohol or drug abuse patient.[facility]In the event this information is protected by the Federal Confidentiality of Alcohol and Drug Abuse Patient Records regulations: The Federal rules restrict any use of the information to criminally investigate or prosecute any alcohol or drug abuse patient.[facility]In the event this information is protected by the Federal Confidentiality of Alcohol and Drug Abuse Patient Records regulations: The Federal rules restrict any use of the information to criminally investigate or prosecute any alcohol or drug abuse patient.[facility]In the event this information is protected by the Federal Confidentiality of Alcohol and Drug Abuse Patient Records regulations: The Federal rules restrict any use of the information to criminally investigate or prosecute any alcohol or drug abuse patient.[facility]In the event this information is protected by the Federal Confidentiality of Alcohol and Drug Abuse Patient Records regulations: The Federal rules restrict any use of the information to criminally investigate or prosecute any alcohol or drug abuse patient.[facility]In the event this information is protected by the Federal Confidentiality of Alcohol and Drug Abuse Patient Records regulations: The Federal rules restrict any use of the information to criminally investigate or prosecute any alcohol or drug abuse patient.[facility]In the event this information is protected by the Federal Confidentiality of Alcohol and Drug Abuse Patient Records regulations: The Federal rules restrict any use of the information to criminally investigate or prosecute any alcohol or drug abuse patient.[facility]In the event this information is protected by the Federal Confidentiality of Alcohol and Drug Abuse Patient Records regulations: The Federal rules restrict any use of the information to criminally investigate or prosecute any alcohol or drug abuse patient.[facility]In the event this information is protected by the Federal Confidentiality of Alcohol and Drug Abuse Patient Records regulations: The Federal rules restrict any use of the information to criminally investigate or prosecute any alcohol or drug abuse patient.[facility]In the event this information is protected by the Federal Confidentiality of Alcohol and Drug Abuse Patient Records regulations: The Federal rules restrict any use of the information to criminally investigate or prosecute any alcohol or drug abuse patient.[facility]In the event this information is protected by the Federal Confidentiality of Alcohol and Drug Abuse Patient Records regulations: The Federal rules restrict any use of the information to criminally investigate or prosecute any alcohol or drug abuse patient.[facility]In the event this information is protected by the Federal Confidentiality of Alcohol and Drug Abuse Patient Records regulations: The Federal rules restrict any use of the information to criminally investigate or prosecute any alcohol or drug abuse patient.[facility]In the event this information is protected by the Federal Confidentiality of Alcohol and Drug Abuse Patient Records regulations: The Federal rules restrict any use of the information to criminally investigate or prosecute any alcohol or drug abuse patient.[facility]In the event this information is protected by the Federal Confidentiality of Alcohol and Drug Abuse Patient Records regulations: The Federal rules restrict any use of the information to criminally investigate or prosecute any alcohol or drug abuse patient.[facility]In the event this information is protected by the Federal Confidentiality of Alcohol and Drug Abuse Patient Records regulations: The Federal rules restrict any use of the information to criminally investigate or prosecute any alcohol or drug abuse patient.[facility]In the event this information is protected by the Federal Confidentiality of Alcohol and Drug Abuse Patient Records regulations: The Federal rules restrict any use of the information to criminally investigate or prosecute any alcohol or drug abuse patient.[facility]In the event this information is protected by the Federal Confidentiality of Alcohol and Drug Abuse Patient Records regulations: The Federal rules restrict any use of the information to criminally investigate or prosecute any alcohol or drug abuse patient.[facility]In the event this information is protected by the Federal Confidentiality of Alcohol and Drug Abuse Patient Records regulations: The Federal rules restrict any use of the information to criminally investigate or prosecute any alcohol or drug abuse patient.[facility]In the event this information is protected by the Federal Confidentiality of Alcohol and Drug Abuse Patient Records regulations: The Federal rules restrict any use of the information to criminally investigate or prosecute any alcohol or drug abuse patient.[facility]In the event this information is protected by the Federal Confidentiality of Alcohol and Drug Abuse Patient Records regulations: The Federal rules restrict any use of the information to criminally investigate or prosecute any alcohol or drug abuse patient.[facility]In the event this information is protected by the Federal Confidentiality of Alcohol and Drug Abuse Patient Records regulations: The Federal rules restrict any use of the information to criminally investigate or prosecute any alcohol or drug abuse patient.[facility]In the event this information is protected by the Federal Confidentiality of Alcohol and Drug Abuse Patient Records regulations: The Federal rules restrict any use of the information to criminally investigate or prosecute any alcohol or drug abuse patient.[facility] HospitalIn the event this information is protected by the Federal Confidentiality of Alcohol and Drug Abuse Patient Records regulations: The Federal rules restrict any use of the information to criminally investigate or prosecute any alcohol or drug abuse patient.[facility] HospitalIn the event this information is protected by the Federal Confidentiality of Alcohol and Drug Abuse Patient Records regulations: The Federal rules restrict any use of the information to criminally investigate or prosecute any alcohol or drug abuse patient.[facility] HospitalIn the event this information is protected by the Federal Confidentiality of Alcohol and Drug Abuse Patient Records regulations: The Federal rules restrict any use of the information to criminally investigate or prosecute any alcohol or drug abuse patient.[facility] HospitalIn the event this information is protected by the Federal Confidentiality of Alcohol and Drug Abuse Patient Records regulations: The Federal rules restrict any use of the information to criminally investigate or prosecute any alcohol or drug abuse patient.[facility] HospitalIn the event this information is protected by the Federal Confidentiality of Alcohol and Drug Abuse Patient Records regulations: The Federal rules restrict any use of the information to criminally investigate or prosecute any alcohol or drug abuse patient.[facility] HospitalIn the event this information is protected by the Federal Confidentiality of Alcohol and Drug Abuse Patient Records regulations: The Federal rules restrict any use of the information to criminally investigate or prosecute any alcohol or drug abuse patient.[facility] HospitalIn the event this information is protected by the Federal Confidentiality of Alcohol and Drug Abuse Patient Records regulations: The Federal rules restrict any use of the information to criminally investigate or prosecute any alcohol or drug abuse patient.[facility] HospitalIn the event this information is protected by the Federal Confidentiality of Alcohol and Drug Abuse Patient Records regulations: The Federal rules restrict any use of the information to criminally investigate or prosecute any alcohol or drug abuse patient.[facility] HospitalIn the event this information is protected by the Federal Confidentiality of Alcohol and Drug Abuse Patient Records regulations: The Federal rules restrict any use of the information to criminally investigate or prosecute any alcohol or drug abuse patient.[facility] HospitalIn the event this information is protected by the Federal Confidentiality of Alcohol and Drug Abuse Patient Records regulations: The Federal rules restrict any use of the information to criminally investigate or prosecute any alcohol or drug abuse patient.[facility] HospitalIn the event this information is protected by the Federal Confidentiality of Alcohol and Drug Abuse Patient Records regulations: The Federal rules restrict any use of the information to criminally investigate or prosecute any alcohol or drug abuse patient.[facility] HospitalIn the event this information is protected by the Federal Confidentiality of Alcohol and Drug Abuse Patient Records regulations: The Federal rules restrict any use of the information to criminally investigate or prosecute any alcohol or drug abuse patient.[facility] HospitalIn the event this information is protected by the Federal Confidentiality of Alcohol and Drug Abuse Patient Records regulations: The Federal rules restrict any use of the information to criminally investigate or prosecute any alcohol or drug abuse patient.[facility] HospitalIn the event this information is protected by the Federal Confidentiality of Alcohol and Drug Abuse Patient Records regulations: The Federal rules restrict any use of the information to criminally investigate or prosecute any alcohol or drug abuse patient.[facility] HospitalIn the event this information is protected by the Federal Confidentiality of Alcohol and Drug Abuse Patient Records regulations: The Federal rules restrict any use of the information to criminally investigate or prosecute any alcohol or drug abuse patient.[facility] HospitalIn the event this information is protected by the Federal Confidentiality of Alcohol and Drug Abuse Patient Records regulations: The Federal rules restrict any use of the information to criminally investigate or prosecute any alcohol or drug abuse patient.[facility] HospitalIn the event this information is protected by the Federal Confidentiality of Alcohol and Drug Abuse Patient Records regulations: The Federal rules restrict any use of the information to criminally investigate or prosecute any alcohol or drug abuse patient.[facility] HospitalIn the event this information is protected by the Federal Confidentiality of Alcohol and Drug Abuse Patient Records regulations: The Federal rules restrict any use of the information to criminally investigate or prosecute any alcohol or drug abuse patient.[facility] HospitalIn the event this information is protected by the Federal Confidentiality of Alcohol and Drug Abuse Patient Records regulations: The Federal rules restrict any use of the information to criminally investigate or prosecute any alcohol or drug abuse patient.[facility] HospitalIn the event this information is protected by the Federal Confidentiality of Alcohol and Drug Abuse Patient Records regulations: The Federal rules restrict any use of the information to criminally investigate or prosecute any alcohol or drug abuse patient.[facility] HospitalIn the event this information is protected by the Federal Confidentiality of Alcohol and Drug Abuse Patient Records regulations: The Federal rules restrict any use of the information to criminally investigate or prosecute any alcohol or drug abuse patient.[facility] HospitalIn the event this information is protected by the Federal Confidentiality of Alcohol and Drug Abuse Patient Records regulations: The Federal rules restrict any use of the information to criminally investigate or prosecute any alcohol or drug abuse patient.[facility] HospitalIn the event this information is protected by the Federal Confidentiality of Alcohol and Drug Abuse Patient Records regulations: The Federal rules restrict any use of the information to criminally investigate or prosecute any alcohol or drug abuse patient.[facility] HospitalIn the event this information is protected by the Federal Confidentiality of Alcohol and Drug Abuse Patient Records regulations: The Federal rules restrict any use of the information to criminally investigate or prosecute any alcohol or drug abuse patient.[facility] HospitalIn the event this information is protected by the Federal Confidentiality of Alcohol and Drug Abuse Patient Records regulations: The Federal rules restrict any use of the information to criminally investigate or prosecute any alcohol or drug abuse patient.[facility] HospitalIn the event this information is protected by the Federal Confidentiality of Alcohol and Drug Abuse Patient Records regulations: The Federal rules restrict any use of the information to criminally investigate or prosecute any alcohol or drug abuse patient.[facility] HospitalIn the event this information is protected by the Federal Confidentiality of Alcohol and Drug Abuse Patient Records regulations: The Federal rules restrict any use of the information to criminally investigate or prosecute any alcohol or drug abuse patient.[facility] HospitalIn the event this information is protected by the Federal Confidentiality of Alcohol and Drug Abuse Patient Records regulations: The Federal rules restrict any use of the information to criminally investigate or prosecute any alcohol or drug abuse patient.[facility] HospitalIn the event this information is protected by the Federal Confidentiality of Alcohol and Drug Abuse Patient Records regulations: The Federal rules restrict any use of the information to criminally investigate or prosecute any alcohol or drug abuse patient.[facility] HospitalIn the event this information is protected by the Federal Confidentiality of Alcohol and Drug Abuse Patient Records regulations: The Federal rules restrict any use of the information to criminally investigate or prosecute any alcohol or drug abuse patient.[facility] HospitalIn the event this information is protected by the Federal Confidentiality of Alcohol and Drug Abuse Patient Records regulations: The Federal rules restrict any use of the information to criminally investigate or prosecute any alcohol or drug abuse patient.[facility] HospitalIn the event this information is protected by the Federal Confidentiality of Alcohol and Drug Abuse Patient Records regulations: The Federal rules restrict any use of the information to criminally investigate or prosecute any alcohol or drug abuse patient.[facility] HospitalIn the event this information is protected by the Federal Confidentiality of Alcohol and Drug Abuse Patient Records regulations: The Federal rules restrict any use of the information to criminally investigate or prosecute any alcohol or drug abuse patient.[facility] Reason for Visit (unrecogniz ed section and content) Reason Comments Orders Reason Comments Radiology MRI Specialty Diagnoses / Procedures Referred By Contac Referred To Contact MR IMAGING Diagnoses 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 Elevated tumor markers Abnormal results of liver function studies Procedures MRI PANC/SUSHANT WO/W IVCON MRI ABDOMEN W/O & W/CONTRAST MATERIAL Dayna Reyes MD [address] [place] [address] Mr Imaging Referral ID Status Reason Start Date Expiration Date V isits Requested Visits Authorized [id number] Closed Auto-Generate d Referral 06/29/2021 08/29/2021 1 [...] ECHO HEART, FULL STRESS/REST Dayna Reyes MD [address] [facility] [place] [address] [facility] [address] [place] [address] Referral ID Status Reason Start Date Expiration Date V isits Requested Visits Authorized [id number] Closed Auto-Generate d Referral 07/13/2021 04/02/2022 1 1 Reason Comments UNOS MELD score update pt notiification Reason Comments Established Patient ascites liver cirrho sis Reason Comments Patient Update Reason Comments Liver Disease Reason Comments Osteoporosis f/u Specialty Diagnoses / Procedures Referred By Contac t Referred To Contact Diagnoses Osteopenia, unspecified location Procedures CONSULT ENDOCRINE CALCIUM CLINIC OFFICE/OUTPATIENT [facility] 60-74 MINUTES Dayna Reyes MD [address] [place] [address] Referral ID Status Reason Start Date Expiration Date Visits Requested Visits Authorized [id number] Pending Review PCP Requested Referral 07/17/2021 07/17/2022 [...] PERSON CONSULT TO PACC Kulwinder Landry MD [address] [place] [id number] Referral ID Status Reason Start Date Expiration Date Visits Requested Visits Authorized [id number] Ref Not Required PCP Requested Referral 10/19/2021 01/16/2022 1 1 Reason Comments Medication Problem Reason Comments Opened In Error Specialty Diagnoses / Procedures Referred By Contac t Referred To Contact Endocrinology / ENDOCRINOLOGY Diagnoses Age-related osteoporosis without current pathological fracture Age-related osteoporosis without current pathological fracture Procedures INJECTION, ZOLEDRONIC ACID, 1 MG J3489 Reclast5 MG IV X ONE YEARLY Lorna Frazier MD [address] [place] [address] Lorna Frazier MD [address] [place] [id number] Referral ID Status Reason Start Date Expiration Date Visits Re quested Visits Authorized [id number] Closed 12/01/2021 12/01/2022 1 1 Reason Comments Consult Specialty Diagnoses / Procedures Referred By Contac t Referred To Contact Hematology Diagnoses Thrombocytopenia (HCC) Cirrhosis of liver with ascites, unspecified hepatic cirrhosis type (HCC) Liver transplant candidate Procedures CONSULT TO HEMATOLOGY OFFICE/OUTPATIENT NEW HIGH MDM 60-74 MINUTES Dayna Reyes MD [address] [facility] [place] [id number] Referral ID Status Reason Start Date Expiration Date Visits Requested Visits Authorized [id number] Pending Review PCP Requested Referral 11/16/2021 11/16/2022 1 [address] Specialty Diagnoses / Procedures Referred By Contac t Referred To Contact CT IMAGING Diagnoses Lung nodules Procedures CT CHEST WO IVCON DIAGNOSTIC COMPUTED TOMOGRAPHY THORAX W/O CNTRST Dayna Reyes MD [address] [facility] [place] [address] Ct Imaging Referral ID Status Reason Start Date Expiration Date V isits Requested Visits Authorized [id number] Closed Auto-Generate d Referral 07/13/2021 04/02/2022 1 1 Reason Comments 12.2.22 cure Right Inguinal herni a repair 2.5 hours los 1 Reason Comments Recheck Reason Comments Pre-Op Visit Specialty Diagnoses / Procedures Referred By Contac t Referred To Contact ANESTHESIOLOGY Diagnoses surgery pending 03/04 PACC;lab;ekg Procedures COMPLETE PACC Kulwinder Landry MD [address] [facility] [place] [address] 6, Pacc [address] [place] [id number] Referral ID Status Reason Start Date Expiration Date V isits Requested Visits Authorized [id number] Pending Review 02/10/2022 05/11/2022 1 1 Reason Comments Spirometry Specialty Diagnoses / Procedures Referred By Contac t Referred To Contact [facility] Diagnoses Chronic rhinitis Pneumonia of right lower lobe due to infectious organism Procedures SPIROMETRY WITH DILATOR IF OBSTRUCTED BRNCDILAT RSPSE SPMTRY PRE&POST-BRNCDILAT ADMN Lakshmi Cr, DO [address] [place] [address] Respiratory [address] [address] [place] [address] Referral ID Status Reason Start Date Expiration Date V isits Requested Visits Authorized [id number] Closed Auto-Generate d Referral 02/11/2022 04/02/2022 1 [...] CT ABDOMEN W/CONTRAST Dayna Reyes MD [address] [place] [address] Ct Imaging Referral ID Status Reason Start Date Expiration Date V isits Requested Visits Authorized [id number] Closed Auto-Generate d Referral 04/13/2022 05/13/2023 1 [...] ABD & PELVIS W/O CONTRAST Nanci Kamara APRN.[employer] [address] [place] [address] [address] Imaging Referral ID Status Reason Start Date Expiration Date V isits Requested Visits Authorized [id number] Closed Auto-Generate d Referral 08/01/2022 04/02/2023 2 1 Specialty Diagnoses / Procedures Referred By Contac t Referred To Contact CT IMAGING Diagnoses Unilateral inguinal hernia without obstruction or gangrene, recurrence not specified Procedures CT ABD/PEL WO IVCON CT ABD & PELVIS W/O CONTRAST Kulwinder Landry MD [address] [place] [address] Ct Imaging Referral ID Status Reason Start Date Expiration Date V isits Requested Visits Authorized [id number] Closed Auto-Generate d Referral 03/22/2022 04/02/2022 2 [...] [facility] Tiffany Bucio [address] [phone] Jane Hernandez PA-C [address] [place] [address] Referral ID Status Reason Start Date Expiration Date Visits Re quested Visits Authorized [id number] Closed 12/07/2022 04/02/2023 1 1 Reason Onset [...] Active Jane Hernandez PA-C Attending Provider Active Purchasing Engineer Relationship Specialty Start Date End Date Jordan Azar MD PCP - [facility] 10/13/14 Hua Marquez Jr. [address] [address] Referring Gastroenterology 05/25/18 Ramirez Nieto MD [address] [place] [address] Primary Staff Physician Cardiology 12/31/20 Purchasing Engineer Relationship Specialty Start Date End Date Jordan Azar MD [facility] 10/13/14 Hua Marquez Jr. [address] [place] [address] Referring Gastroenterology 05/25/18 Ramirez Nieto MD [address] [place] [address] Primary Staff Physician Cardiology 12/31/20 Purchasing Engineer Relationship Specialty Start Date End Date Jordan Azar MD PCP - [facility] 10/13/14 Hua Marquez Jr. [address] [place] [address] Referring Gastroenterology 05/25/18 Ramirez Nieto MD [address] [place] [address] Primary Staff Physician Cardiology 12/31/20 Purchasing Engineer Relationship Specialty Start Date End Date Jordan Azar MD PCP - General Family Practice 10/13/14 Hua Marquez Jr. [address] [address] Referring Gastroenterology 05/25/18 Ramirez Nieto MD [address] [place] [address] Primary Staff Physician Cardiology 12/31/20 Purchasing Engineer Relationship Specialty Start Date End Date Jordan Azar MD PCP - General Family Practice 10/13/14 Hua Marquez Jr. [address] [address] Referring Gastroenterology 05/25/18 Ramirez Nieto MD [address] [place] [address] Primary Staff Physician Cardiology 12/31/20 Purchasing Engineer Relationship Specialty Start Date End Date Jordan Azar MD PCP - General Family Practice 10/13/14 Hua Marquez Jr. [address] [place] [address] Referring Gastroenterology 05/25/18 Ramirez Nieto MD [address] [place] [address] Primary Staff Physician Cardiology 12/31/20 Purchasing Engineer Relationship Specialty Start Date End Date Jordan Azar MD PCP - General Family Practice 10/13/14 Hua Marquez Jr. [address] [place] [address] Referring Gastroenterology 05/25/18 Ramirez Nieto MD [address] [place] [address] Primary Staff Physician Cardiology 12/31/20 Purchasing Engineer Relationship Specialty Start Date End Date Jordan Azar MD PCP - General Family Practice 10/13/14 Hua Marquez Jr. [address] [address] Referring Gastroenterology 05/25/18 Ramirez Nieto MD [address] [place] [address] Primary Staff Physician Cardiology 12/31/20 Purchasing Engineer Relationship Specialty Start Date End Date Jordan Azar MD PCP - [facility] 10/13/14 Hua Marquez Jr. [address] [address] Referring Gastroenterology 05/25/18 Ramirez Nieto MD [address] [place] [address] Primary Staff Physician Cardiology 12/31/20 Purchasing Engineer Relationship Specialty Start Date End Date Jordan Azar MD PCP - [facility] 10/13/14 Hua Marquez Jr. [address] [address] Referring Gastroenterology 05/25/18 Ramirez Nieto MD [address] [place] [address] Primary Staff Physician Cardiology 12/31/20 Purchasing Engineer Relationship Specialty Start Date End Date Jordan Azar MD PCP - General Family Practice 10/13/14 Hua Marquez Jr. [address] [place] [address] Referring Gastroenterology 05/25/18 Ramirez Nieto MD [address] [place] [address] Primary Staff Physician Cardiology 12/31/20 Purchasing Engineer Relationship Specialty Start Date End Date Jordan Azar MD PCP - [facility] 10/13/14 Hua Marquez Jr. [address] [place] [address] Referring Gastroenterology 05/25/18 Ramirez Nieto MD [address] [place] [address] Primary Staff Physician Cardiology 12/31/20 Purchasing Engineer Relationship Specialty Start Date End Date Jordan Azar MD PCP - General Family Practice 10/13/14 Hua Marquez Jr. [address] [place] [address] Referring Gastroenterology 05/25/18 Ramirez Nieto MD [address] [place] [address] Primary Staff Physician Cardiology 12/31/20 Purchasing Engineer Relationship Specialty Start Date End Date Jordan Azar MD PCP - General Family Practice 10/13/14 Hua Marquez Jr. [address] [place] [address] Referring Gastroenterology 05/25/18 Ramirez Nieto MD [address] [place] [address] Primary Staff Physician Cardiology 12/31/20 Purchasing Engineer Relationship Specialty Start Date End Date Jordan Azar MD PCP - General Family Practice 10/13/14 Hua Marquez Jr. [address] [address] Referring Gastroenterology 05/25/18 Ramirez Nieto MD [address] [place] [address] Primary Staff Physician Cardiology 12/31/20 Purchasing Engineer Relationship Specialty Start Date End Date Jordan Azar MD PCP - [facility] 10/13/14 Hua Marquez Jr. [address] [place] [address] Referring Gastroenterology 05/25/18 Ramirez Nieto MD [address] [place] [address] Primary Staff Physician Cardiology 12/31/20 Purchasing Engineer Relationship Specialty Start Date End Date Jordan Azar MD PCP - [facility] 10/13/14 Hua Marquez Jr. [address] [place] [address] Referring Gastroenterology 05/25/18 Ramirez Nieto MD [address] [place] [address] Primary Staff Physician Cardiology 12/31/20 Purchasing Engineer Relationship Specialty Start Date End Date Jordan Azar MD PCP - [facility] 10/13/14 Hua Marquez Jr. [address] [address] Referring Gastroenterology 05/25/18 Ramirez Nieto MD [address] [place] [address] Primary Staff Physician Cardiology 12/31/20 Purchasing Engineer Relationship Specialty Start Date End Date Jordan Azar MD PCP - [facility] 10/13/14 Hua Marquez Jr. [address] [address] Referring Gastroenterology 05/25/18 Ramirez Nieto MD [address] [place] [address] Primary Staff Physician Cardiology 12/31/20 Purchasing Engineer Relationship Specialty Start Date End Date Jordan Azar MD PCP - General Family Practice 10/13/14 Hua Marquez Jr. [address] [address] Referring Gastroenterology 05/25/18 Ramirez Nieto MD [address] [place] [address] Primary Staff Physician Cardiology 12/31/20 Purchasing Engineer Relationship Specialty Start Date End Date Jordan Azar MD PCP - General Family Practice 10/13/14 Hua Marquez Jr. [address] [address] Referring Gastroenterology 05/25/18 Ramirez Nieto MD [address] [place] [address] Primary Staff Physician Cardiology 12/31/20 Purchasing Engineer Relationship Specialty Start Date End Date Jordan Azar MD PCP - General Family Practice 10/13/14 Hua Marquez Jr. [address] [address] Referring Gastroenterology 05/25/18 Ramirez Nieto MD [address] [place] [address] Primary Staff Physician Cardiology 12/31/20 Purchasing Engineer Relationship Specialty Start Date End Date Jordan Azar MD PCP - General Family Practice 10/13/14 Hua Marquez Jr. [address] [place] [address] Referring Gastroenterology 05/25/18 Ramirez Nieto MD [address] [facility] [place] [place] [address] Primary Staff Physician Cardiology 12/31/20 Purchasing Engineer Relationship Specialty Start Date End Date Jordan Azar MD PCP - General Family Medicine 10/13/14 Hua Marquez Jr. [address] [place] [address] Referring Gastroenterology 05/25/18 Ramirez Nieto MD [address] [place] [address] Primary Staff Physician Cardiology 12/31/20 Purchasing Engineer Relationship Specialty Start Date End Date Jordan Azar MD PCP - General Family Medicine 10/13/14 Hua Marquez Jr., DO [address] [address] Referring Gastroenterology 05/25/18 Ramirez Nieto MD [address] [place] [address] Primary Staff Physician Cardiology 12/31/20 Purchasing Engineer Relationship Specialty Start Date End Date Jordan Azar MD PCP - General Family Medicine 10/13/14 Hua Marquez Jr., DO [address] [address] Referring Gastroenterology 05/25/18 Ramirez Nieto MD [address] [place] [address] Primary Staff Physician Cardiology 12/31/20 Purchasing Engineer Relationship Specialty Start Date End Date Jordan Azar MD PCP - General [facility] Medicine 10/13/14 Hua Marquez Jr., DO [address] [address] Referring Gastroenterology 05/25/18 Ramirez Nieto MD [address] [place] [address] Primary Staff Physician Cardiology 12/31/20 Purchasing Engineer Relationship Specialty Start Date End Date Jordan Azar MD PCP - General Family Medicine 10/13/14 Hua Marquez Jr., DO [address] [address] Referring Gastroenterology 05/25/18 Ramirez Nieto MD [address] [place] [address] Primary Staff Physician Cardiology 12/31/20 Purchasing Engineer Relationship Specialty Start Date End Date Jordan Azar MD PCP - General Family Medicine 10/13/14 Hua Marquez Jr., DO [address] [address] Referring Gastroenterology 05/25/18 Ramirez Nieto MD [address] [place] [address] Primary Staff Physician Cardiology 12/31/20 Purchasing Engineer Relationship Specialty Start Date End Date Jordan Azar MD PCP - General Family Medicine 10/13/14 Hua Marquez Jr., DO [address] [address] Referring Gastroenterology 05/25/18 Ramirez Nieto MD [address] [place] [address] Primary Staff Physician Cardiology 12/31/20 Purchasing Engineer Relationship Specialty Start Date End Date Jordan Azar MD PCP - General Family Medicine 10/13/14 Hua Marquez Jr., DO [address] [address] Referring Gastroenterology 05/25/18 Ramirez Nieto MD [address] [place] [address] Primary Staff Physician Cardiology 12/31/20 Purchasing Engineer Relationship Specialty Start Date End Date Jordan Azar MD PCP - General Family Medicine 10/13/14 Hua Marquez Jr., DO [address] [address] Referring Gastroenterology 05/25/18 Ramirez Nieto MD [address] [place] [address] Primary Staff Physician Cardiology 12/31/20 Purchasing Engineer Relationship Specialty Start Date End Date Jordan Azar MD PCP - General Family Medicine 10/13/14 Hua Marquez Jr., DO [address] [address] Referring Gastroenterology 05/25/18 Ramirez Nieto MD [address] [place] [address] Primary Staff Physician Cardiology 12/31/20 Purchasing Engineer Relationship Specialty Start Date End Date Jordan Azar MD PCP - General Family Medicine 10/13/14 Hua Marquez Jr., DO [address] [address] Referring Gastroenterology 05/25/18 Ramirez Nieto MD [address] [place] [address] Primary Staff Physician Cardiology 12/31/20 Purchasing Engineer Relationship Specialty Start Date End Date Jordan Azar MD PCP - General Family Medicine 10/13/14 Hua Marquez Jr., DO [address] [address] Referring Gastroenterology 05/25/18 Ramirez Nieto MD [address] [place] [address] Primary Staff Physician Cardiology 12/31/20 Purchasing Engineer Relationship Specialty Start Date End Date Jordan Azar MD PCP - General Family Medicine 10/13/14 Hua Marquez Jr., DO [address] [address] Referring Gastroenterology 05/25/18 Ramirez Nieto MD [address] [place] [address] Primary Staff Physician Cardiology 12/31/20 Purchasing Engineer Relationship Specialty Start Date End Date Jordan Azar MD PCP - General Family Medicine 10/13/14 Hua Marquez Jr., DO [address] [address] Referring Gastroenterology 05/25/18 Ramirez Nieto MD [address] [place] [address] Primary Staff Physician Cardiology 12/31/20 Purchasing Engineer Relationship Specialty Start Date End Date Jordan Azar MD PCP - General Family Medicine 10/13/14 Hua Marquez Jr., DO [address] [address] Referring Gastroenterology 05/25/18 Ramirez Nieto MD [address] [place] [address] Primary Staff Physician Cardiology 12/31/20 Purchasing Engineer Relationship Specialty Start Date End Date Jordan Azar MD PCP - General Family Medicine 10/13/14 Hua Marquez Jr., DO [address] [address] Referring Gastroenterology 05/25/18 Ramirez Nieto MD [address] [place] [address] Primary Staff Physician Cardiology 12/31/20 Purchasing Engineer Relationship Specialty Start Date End Date Jordan Azar MD PCP - General Family Medicine 10/13/14 Hua Marquez Jr., DO [address] [address] Referring Gastroenterology 05/25/18 Ramirez Nieto MD [address] [place] [address] Primary Staff Physician Cardiology 12/31/20 Purchasing Engineer Relationship Specialty Start Date End Date Jordan Azar MD PCP - General Family Medicine 10/13/14 Hua Marquez Jr., DO [address] [address] Referring Gastroenterology 05/25/18 Ramirez Nieto MD [address] [place] [address] Primary Staff Physician Cardiology 12/31/20 Purchasing Engineer Relationship Specialty Start Date End Date Jordan Azar MD PCP - General Family Medicine 10/13/14 Hua Marquez Jr., DO [address] [address] Referring Gastroenterology 05/25/18 Ramirez Nieto MD [address] [place] [address] Primary Staff Physician Cardiology 12/31/20 Purchasing Engineer Relationship Specialty Start Date End Date Jordan Azar MD PCP - General Family Medicine 10/13/14 Hua Marquez Jr., DO [address] [address] Referring Gastroenterology 05/25/18 Ramirez Nieto MD [address] [place] [address] Primary Staff Physician Cardiology 12/31/20 Purchasing Engineer Relationship Specialty Start Date End Date Jordan Azar MD PCP - General Family Medicine 10/13/14 Hua Marquez Jr., DO [address] [address] Referring Gastroenterology 05/25/18 Ramirez Nieto MD [address] [place] [address] Primary Staff Physician Cardiology 12/31/20 Team Status: Inactive Member Role Status Dates Jordan Azar MD Primary Care Provider Active Dayna Reyes MD Attending Provider Active Purchasing Engineer Relationship Specialty Start Date End Date Jordan Azar MD PCP - General Family Medicine 10/13/14 Hua Marquez Jr., DO [address] [address] Referring Gastroenterology 05/25/18 Ramirez Nieto MD [address] [place] [address] Primary Staff Physician Cardiology 12/31/20 Purchasing Engineer Relationship Specialty Start Date End Date Jordan Azar MD PCP - General Family Medicine 10/13/14 Hua Marquez Jr., DO [address] [address] Referring Gastroenterology 05/25/18 Ramirez Nieto MD [address] [place] [address] Primary Staff Physician Cardiology 12/31/20 Purchasing Engineer Relationship Specialty Start Date End Date Jordan Azar MD PCP - General Family Medicine 10/13/14 Hua Marquez Jr., DO [address] [address] Referring Gastroenterology 05/25/18 Ramirez Nieto MD [address] [place] [address] Primary Staff Physician Cardiology 12/31/20 Purchasing Engineer Relationship Specialty Start Date End Date Jordan Azar MD PCP - General Family Medicine 10/13/14 Hua Marquez Jr., DO [address] [address] Referring Gastroenterology 05/25/18 Ramirez Nieto MD [address] [place] [address] Primary Staff Physician Cardiology 12/31/20 [facility] 05/09/22 Purchasing Engineer Relationship Specialty Start Date End Date Jordan Azar MD PCP - General Family Medicine 10/13/14 Hua Marquez Jr., DO [address] [address] Referring Gastroenterology 05/25/18 Ramirez Nieto MD [address] [place] [address] Primary Staff Physician Cardiology 12/31/20 [facility] 05/09/22 Purchasing Engineer Relationship Specialty Start Date End Date Jordan Azar MD PCP - General Family Medicine 10/13/14 Hua Marquez Jr., DO [address] [address] Referring Gastroenterology 05/25/18 Ramirez Nieto MD [address] [place] [address] Primary Staff Physician Cardiology 12/31/20 [facility] 05/09/22 Purchasing Engineer Relationship Specialty Start Date End Date Jordan Azar MD PCP - General Family Medicine 10/13/14 Hua Marquez Jr., DO [address] [address] Referring Gastroenterology 05/25/18 Ramirez Nieto MD [address] [place] [address] Primary Staff Physician Cardiology 12/31/20 [facility] 05/09/22 Purchasing Engineer Relationship Specialty Start Date End Date Jordan Azar MD PCP - General Family Medicine 10/13/14 Hua Marquez Jr., DO [address] [address] Referring Gastroenterology 05/25/18 Ramirez Nieto MD [address] [place] [address] Primary Staff Physician Cardiology 12/31/20 [facility] 05/09/22 Purchasing Engineer Relationship Specialty Start Date End Date Jordan Azar MD PCP - General Family Medicine 10/13/14 Hua Marquez Jr., DO [address] [address] Referring Gastroenterology 05/25/18 Ramirez Nieto MD [address] [place] [address] Primary Staff Physician Cardiology 12/31/20 [facility] 05/09/22 Purchasing Engineer Relationship Specialty Start Date End Date Jordan Azar MD PCP - General Family Medicine 10/13/14 Hua Marquez Jr., DO [address] [address] Referring Gastroenterology 05/25/18 Ramirez Nieto MD [address] [place] [address] Primary Staff Physician Cardiology 12/31/20 [facility] 05/09/22 Purchasing Engineer Relationship Specialty Start Date End Date Jordan Azar MD PCP - General Family Medicine 10/13/14 Hua Marquez Jr., DO [address] [address] Referring Gastroenterology 05/25/18 Ramirez Nieto MD [address] [facility] [place] [place] [address] Primary Staff Physician Cardiology 12/31/20 [facility] 05/09/22 Purchasing Engineer Relationship Specialty Start Date End Date Jordan Azar MD PCP - General Family Medicine 10/13/14 Hua Marquez Jr., DO [address] [address] Referring Gastroenterology 05/25/18 Ramirez Nieto MD [address] [facility] [place] [place] [address] Primary Staff Physician Cardiology 12/31/20 [facility] 05/09/22 Purchasing Engineer Relationship Specialty Start Date End Date Jordan Azar MD PCP - General Family Medicine 10/13/14 Hua Marquez Jr., DO [address] [address] Referring Gastroenterology 05/25/18 Ramirez Nieto MD [address] [place] [address] Primary Staff Physician Cardiology 12/31/20 Kat Leal RN [facility] [address] [place] [address] Transplant Center 06/10/22 [facility] 05/09/22 Purchasing Engineer Relationship Specialty Start Date End Date Jordan Azar MD PCP - General Family Medicine 10/13/14 Hua Marquez Jr., DO [address] [address] Referring Gastroenterology 05/25/18 Ramirez Nieto MD [address] [place] [id number] Primary Staff Physician Cardiology 12/31/20 Kat Leal RN [address] [address] Transplant Center 06/10/22 [facility] 05/09/22 Purchasing Engineer Relationship Specialty Start Date End Date Jordan Azar MD PCP - General Family Medicine 10/13/14 Hua Marquez Jr., DO [address] [address] Referring Gastroenterology 05/25/18 Ramirez Nieto MD [address] [place] [address] Primary Staff Physician Cardiology 12/31/20 Kat Leal RN [facility] [address] [place] [address] Transplant Center 06/10/22 [facility] 05/09/22 Purchasing Engineer Relationship Specialty Start Date End Date Jordan Azar MD PCP - General Family Medicine 10/13/14 Hua Marquez Jr., DO [address] [address] Referring Gastroenterology 05/25/18 Ramirez Nieto MD [address] [place] [address] Primary Staff Physician Cardiology 12/31/20 Kat Leal, [employer] [facility] [address] [place] [address] Transplant Center 06/10/22 [facility] 05/09/22 Purchasing Engineer Relationship Specialty Start Date End Date Jordan Azar MD PCP - General Family Medicine 10/13/14 Hua Marquez Jr., DO [address] [address] Referring Gastroenterology 05/25/18 Ramirez Nieto MD [address] [place] [address] Primary Staff Physician Cardiology 12/31/20 Kat Leal RN [facility] [address] [place] [address] Transplant Center 06/10/22 [facility] 05/09/22 Purchasing Engineer Relationship Specialty Start Date End Date Jordan Azar MD PCP - General Family Medicine 10/13/14 Hua Marquez Jr., DO [address] [address] Referring Gastroenterology 05/25/18 Ramirez Nieto MD [address] [place] [address] Primary Staff Physician Cardiology 12/31/20 Kat Leal RN [facility] [address] [place] [address] Transplant Center 06/10/22 [facility] 05/09/22 Purchasing Engineer Relationship Specialty Start Date End Date Jordan Azar MD PCP - General Family Medicine 10/13/14 Hua Marquez Jr., DO [address] [address] Referring Gastroenterology 05/25/18 Ramirez Nieto MD [address] [place] [address] Primary Staff Physician Cardiology 12/31/20 Kat Leal, [employer] [facility] [address] [place] [address] Transplant Center 06/10/22 [facility] 05/09/22 Purchasing Engineer Relationship Specialty Start Date End Date Jordan Azar MD PCP - General Family Medicine 10/13/14 Hua Marquez Jr., DO [address] [address] Referring Gastroenterology 05/25/18 Ramirez Nieto MD [address] [place] [address] Primary Staff Physician Cardiology 12/31/20 Kat Leal, RN [facility] [address] [place] [address] Transplant Center 06/10/22 [facility] 05/09/22 Purchasing Engineer Relationship Specialty Start Date End Date Jordan Azar MD PCP - General Family Medicine 10/13/14 Hua Marquez Jr., DO [address] [address] Referring Gastroenterology 05/25/18 Ramirez Nieto MD [address] [place] [address] Primary Staff Physician Cardiology 12/31/20 Kat Leal RN [facility] [address] [place] [address] Transplant Center 06/10/22 [facility] 05/09/22 Purchasing Engineer Relationship Specialty Start Date End Date Jordan Azar MD PCP - General Family Medicine 10/13/14 Hua Marquez Jr., DO [address] [address] Referring Gastroenterology 05/25/18 Ramirez Nieto MD [address] [place] [address] Primary Staff Physician Cardiology 12/31/20 Kat Leal RN [place] [address] [place] [address] Transplant Center 06/10/22 [facility] 05/09/22 Purchasing Engineer Relationship Specialty Start Date End Date Jordan Azar MD PCP - General Family Medicine 10/13/14 Hua Marquez Jr., DO [address] [address] Referring Gastroenterology 05/25/18 Ramirez Nieto MD [address] [place] [address] Primary Staff Physician Cardiology 12/31/20 Kat Leal RN [facility] [address] [place] [address] Transplant Center 06/10/22 [facility] 05/09/22 Purchasing Engineer Relationship Specialty Start Date End Date Jordan Azar MD PCP - General Family Medicine 10/13/14 Hua Marquez Jr., DO [address] [address] Referring Gastroenterology 05/25/18 Ramirez Nieto MD [address] [place] [address] Primary Staff Physician Cardiology 12/31/20 Kat Leal, [employer] [facility] [address] [place] [address] Transplant Center 06/10/22 [facility] 05/09/22 Purchasing Engineer Relationship Specialty Start Date End Date Jordan Azar MD PCP - General Family Medicine 10/13/14 Hua Marquez Jr., DO [address] [place] [address] Referring Gastroenterology 05/25/18 Ramirez Nieto MD [address] [place] [address] Primary Staff Physician Cardiology 12/31/20 Kat Leal, [employer] [facility] [address] [place] [address] Transplant Center 06/10/22 [facility] 05/09/22 Purchasing Engineer Relationship Specialty Start Date End Date Jordan Azar MD PCP - General Family Medicine 10/13/14 Hua Marquez Jr., DO [address] [place] [address] Referring Gastroenterology 05/25/18 Ramirez Nieto MD [address] [place] [address] Primary Staff Physician Cardiology 12/31/20 Kat Leal RN [facility] [address] [place] [address] Transplant Center 06/10/22 Tiffany Bucio [address] [phone] Referring Neurosurgery 11/07/22 [facility] 05/09/22 Purchasing Engineer Relationship Specialty Start Date End Date Jordan Azar MD PCP - General Family Medicine 10/13/14 Hua Marquez Jr., DO [address] [place] [address] Referring Gastroenterology 05/25/18 Ramirez Nieto MD [address] [place], [place] [address] Primary Staff Physician Cardiology 12/31/20 Kat Leal RN [facility] [address] [place] [address] Transplant Center 06/10/22 [facility] 05/09/22 Purchasing Engineer Relationship Specialty Start Date End Date Jordan Azar MD PCP - General Family Medicine 10/13/14 Hua Marquez Jr., DO [address] [place] [address] Referring Gastroenterology 05/25/18 Ramirez Nieto MD [address] [place] [address] Primary Staff Physician Cardiology 12/31/20 Kat Leal RN [facility] [address] [place] [address] Transplant Center 06/10/22 [facility] 05/09/22 Purchasing Engineer Relationship Specialty Start Date End Date Jordan Azar MD PCP - General Family Medicine 10/13/14 Hua Marquez Jr., DO [address] [address] Referring Gastroenterology 05/25/18 Ramirez Nieto MD [address] [facility] [place] [address] Primary Staff Physician Cardiology 12/31/20 Purchasing Engineer Relationship Specialty Start Date End Date Jordan Azar MD PCP - General Family Medicine 10/13/14 Hua Marquez Jr., DO [address] [address] Referring Gastroenterology 05/25/18 Ramirez Nieto MD [address] [place] [address] Primary Staff Physician Cardiology 12/31/20 Purchasing Engineer Relationship Specialty Start Date End Date Jordan Azar MD PCP - General Family Medicine 10/13/14 Hua Marquez Jr., DO [address] [address] Referring Gastroenterology 05/25/18 Ramirez Nieto MD [address] [place] [address] Primary Staff Physician Cardiology 12/31/20 Kat Leal, [employer] [facility] [address] [place] [address] Transplant Center 06/10/22 Tiffany Bucio [address] [phone] Referring Neurosurgery 11/07/22 [facility] 05/09/22 Purchasing Engineer Relationship Specialty Start Date End Date Jordan Azar MD PCP - General Family Medicine 10/13/14 Hua Marquez Jr., DO [address] [place] [address] Referring Gastroenterology 05/25/18 Ramirez Nieto MD [address] [place] [address] Primary Staff Physician Cardiology 12/31/20 Kat Leal RN [facility] [address] [place] [address] Transplant Center 06/10/22 Tiffany Bucio [address] [place] [phone] Referring Neurosurgery 11/07/22 [facility] 05/09/22 Purchasing Engineer Relationship Specialty Start Date End Date Jordan Azar MD PCP - General Family Medicine 10/13/14 Hua Marquez Jr., DO [address] [place] [address] Referring Gastroenterology 05/25/18 Ramirez Nieto MD [address] [place] [address] Primary Staff Physician Cardiology 12/31/20 Kat Leal, [employer] [facility] [address] [place] [address] Transplant Center 06/10/22 Tiffany Bucio [address] [phone] Referring Neurosurgery 11/07/22 [facility] 05/09/22 Purchasing Engineer Relationship Specialty Start Date End Date Jordan Azar MD PCP - General Family Medicine 10/13/14 Hua Marquez Jr., [address] [address] Referring Gastroenterology 05/25/18 Ramirez Nieto MD [address] [place] [address] Primary Staff Physician Cardiology 12/31/20 Kat Leal, [employer] [facility] [address] [place] [address] Transplant Center 06/10/22 Tiffany Bucio [address] [phone] Referring Neurosurgery 11/07/22 [facility] 05/09/22 Purchasing Engineer Relationship Specialty Start Date End Date Jordan Azar MD PCP - General Family Medicine 10/13/14 Hua Marquez Jr., DO [address] [place] [address] Referring Gastroenterology 05/25/18 Ramirez Nieto MD [address] [place] [address] Primary Staff Physician Cardiology 12/31/20 Kat Leal, [employer] [facility] [address] [place] [address] Transplant Center 06/10/22 Tiffany Bucio [address] [place] [phone] Referring Neurosurgery 11/07/22 [facility] 05/09/22 Purchasing Engineer Relationship Specialty Start Date End Date Jordan Azar MD PCP - General Family Medicine 10/13/14 Hua Marquez Jr., DO [address] [place] [address] Referring Gastroenterology 05/25/18 Ramirez Nieto MD [address] [place] [id number] Primary Staff Physician Cardiology 12/31/20 Kat Leal RN [facility] [address] [place] [address] Transplant Center 06/10/22 Tiffany Bucio [address] [place] [phone] Referring Neurosurgery 11/07/22 [facility] 05/09/22 Purchasing Engineer Relationship Specialty Start Date End Date Jordan Azar MD PCP - General Family Medicine 10/13/14 Hua Marquez Jr., DO [address] [place] [address] Referring Gastroenterology 05/25/18 Ramirez Nieto MD [address] [place] [address] Primary Staff Physician Cardiology 12/31/20 Kat Leal, [employer] [facility] [address] [place] [address] Transplant Center 06/10/22 Tiffany Bucio [address] [place] [phone] Referring Neurosurgery 11/07/22 [facility] 05/09/22 Purchasing Engineer Relationship Specialty Start Date End Date Jordan Azar MD PCP - General Family Medicine 10/13/14 Hua Marquez Jr., DO [address] [place] [address] Referring Gastroenterology 05/25/18 Ramirez Nieto MD [address] [place] [id number] Primary Staff Physician Cardiology 12/31/20 Kat Leal, [employer] [facility] [address] [place] [address] Transplant Center 06/10/22 Tiffany Bucio [address] [place] [phone] Referring Neurosurgery 11/07/22 [facility] 05/09/22 Purchasing Engineer Relationship Specialty Start Date End Date Jordan Azar MD PCP - General Family Medicine 10/13/14 Hua Marquez Jr., DO [address] [address] Referring Gastroenterology 05/25/18 Ramirez Nieto MD [address] [place] [address] Primary Staff Physician Cardiology 12/31/20 Purchasing Engineer Relationship Specialty Start Date End Date Jordan Azar MD PCP - General Family Medicine 10/13/14 Hua Marquez Jr., DO [address] [place] [address] Referring Gastroenterology 05/25/18 Ramirez Nieto MD [address] [place] [address] Primary Staff Physician Cardiology 12/31/20 Purchasing Engineer Relationship Specialty Start Date End Date Jordan Azar MD PCP - General Family Medicine 10/13/14 Hua Marquez Jr., DO [address] [address] Referring Gastroenterology 05/25/18 Ramirez Nieto MD [address] [place] [address] Primary Staff Physician Cardiology 12/31/20 Purchasing Engineer Relationship Specialty Start Date End Date Jordan Azar MD PCP - General Family Medicine 10/13/14 Hua Marquez Jr., DO [address] [address] Referring Gastroenterology 05/25/18 Ramirez Nieto MD [address] [place], [place] [address] Primary Staff Physician Cardiology 12/31/20 Purchasing Engineer Relationship Specialty Start Date End Date Jordan Azar MD PCP - General Family Medicine 10/13/14 Hua Marquez Jr., DO [address] [place] [address] Referring Gastroenterology 05/25/18 Ramirez Nieto MD [address] [place] [address] Primary Staff Physician Cardiology 12/31/20 Kat Leal, [employer] [facility] [address] [place] [address] Transplant Center 06/10/22 Tiffany Bucio [address] [phone] Referring Neurosurgery 11/07/22 [facility] 05/09/22 Purchasing Engineer Relationship Specialty Start Date End Date Jordan Azar MD PCP - General Family Medicine 10/13/14 Hua Marquez Jr., DO [address] [place] [address] Referring Gastroenterology 05/25/18 Ramirez Nieto MD [address] [place] [address] Primary Staff Physician Cardiology 12/31/20 Kat Leal, [employer] [facility] [address] [place] [address] Transplant Center 06/10/22 Tiffany Bucio [address] [place] [phone] Referring Neurosurgery 11/07/22 [facility] 05/09/22 Purchasing Engineer Relationship Specialty Start Date End Date Jordan Azar MD PCP - General Family Medicine 10/13/14 Hua Marquez Jr., DO [address] [place] [address] Referring Gastroenterology 05/25/18 Ramirez Nieto MD [address] [place] [address] Primary Staff Physician Cardiology 12/31/20 Kat Leal RN [facility] [address] [place] [address] Transplant Center 06/10/22 Tiffany Bucio [address] [place] [phone] Referring Neurosurgery 11/07/22 [facility] 05/09/22 Purchasing Engineer Relationship Specialty Start Date End Date Jordan Azar MD PCP - General Family Medicine 10/13/14 Hua Marquez Jr., DO [address] [place] [address] Referring Gastroenterology 05/25/18 Ramirez Nieto MD [address] [place] [id number] Primary Staff Physician Cardiology 12/31/20 Kat Leal, [employer] [facility] [address] [place] [address] Transplant Center 06/10/22 Tiffany Bucio [address] [place] [phone] Referring Neurosurgery 11/07/22 [facility] 05/09/22 Purchasing Engineer Relationship Specialty Start Date End Date Jordan Azar MD PCP - General Family Medicine 10/13/14 Hua Marquez Jr., DO [address] [place] [address] Referring Gastroenterology 05/25/18 Ramirez Nieto MD [address] [place] [address] Primary Staff Physician Cardiology 12/31/20 Kat Leal, [employer] [facility] [address] [place] [address] Transplant Center 06/10/22 Tiffany Bucio [address] [place] [phone] Referring Neurosurgery 11/07/22 [facility] 05/09/22 Purchasing Engineer Relationship Specialty Start Date End Date Jordan Azar MD PCP - General Family Medicine 10/13/14 Hua Marquez Jr., DO [address] [place] [address] Referring Gastroenterology 05/25/18 Ramirez Nieto MD [address] [place] [address] Primary Staff Physician Cardiology 12/31/20 Kat Leal, RN [facility] [address] [place] [address] Transplant Center 06/10/22 Tiffany Bucio [address] [place] [phone] Referring Neurosurgery 11/07/22 [facility] 05/09/22 Purchasing Engineer Relationship Specialty Start Date End Date Jordan Azar MD PCP - General Family Medicine 10/13/14 Hua Marquez Jr., DO [address] [place] [address] Referring Gastroenterology 05/25/18 Ramirez Nieto MD [address] [place] [address] Primary Staff Physician Cardiology 12/31/20 Kat Leal, [employer] [facility] [address] [place] [address] Transplant Center 06/10/22 Tiffany Bucio [address] [phone] Referring Neurosurgery 11/07/22 [facility] 05/09/22 Purchasing Engineer Relationship Specialty Start Date End Date Jordan Azar MD PCP - General Family Medicine 10/13/14 Hua Marquez Jr., DO [address] [address] Referring Gastroenterology 05/25/18 Ramirez Nieto MD [address] [place] [address] Primary Staff Physician Cardiology 12/31/20 Kat Leal RN [facility] [address] [place] [address] Transplant Center 06/10/22 Tiffany Bucio [address] [phone] Referring Neurosurgery 11/07/22 [facility] 05/09/22 Purchasing Engineer Relationship Specialty Start Date End Date Jordan Azar MD PCP - General Family Medicine 10/13/14 Hua Marquez Jr., DO [address] [address] Referring Gastroenterology 05/25/18 Ramirez Nieto MD [address] [place] [address] Primary Staff Physician Cardiology 12/31/20 Kat Leal RN [facility] [address] [place] [address] Transplant Center 06/10/22 Tiffany Bucio [address] [phone] Referring Neurosurgery 11/07/22 [facility] 05/09/22 Purchasing Engineer Relationship Specialty Start Date End Date Jordan Azar MD PCP - General Family Medicine 10/13/14 Hua Marquez Jr., DO [address] [place] [address] Referring Gastroenterology 05/25/18 Ramirez Nieto MD [address] [place] [id number] Primary Staff Physician Cardiology 12/31/20 Kat Leal RN [facility] [address] [place] [address] Transplant Center 06/10/22 Tiffany Bucio [address] [place] [phone] Referring Neurosurgery 11/07/22 [facility] 05/09/22 Purchasing Engineer Relationship Specialty Start Date End Date Jordan Azar MD PCP - General Family Medicine 10/13/14 Hua Marquez Jr., DO [address] [place] [address] Referring Gastroenterology 05/25/18 Ramirez Nieto MD [address] [place] [address] Primary Staff Physician Cardiology 12/31/20 Kat Leal, [employer] [facility] [address] [place] [address] Transplant Center 06/10/22 Tiffany Bucio [address] [phone] Referring Neurosurgery 11/07/22 [facility] 05/09/22 Purchasing Engineer Relationship Specialty Start Date End Date Jordan Azar MD PCP - General Family Medicine 10/13/14 Hua Marquez Jr., DO [address] [place] [address] Referring Gastroenterology 05/25/18 Ramirez Nieto MD [address] [place] [address] Primary Staff Physician Cardiology 12/31/20 Kat Leal, [employer] [facility] [address] [place] [address] Transplant Center 06/10/22 Tiffany Bucio [address] [phone] Referring Neurosurgery 11/07/22 [facility] 05/09/22 Purchasing Engineer Relationship Specialty Start Date End Date Jordan Azar MD PCP - General Family Medicine 10/13/14 Hua Marquez Jr., DO [address] [place] [address] Referring Gastroenterology 05/25/18 Ramirez Nieto MD [address] [place] [address] Primary Staff Physician Cardiology 12/31/20 Kat Leal, [employer] [facility] [address] [place] [address] Transplant Center 06/10/22 Tiffany Bucio 7[address] [facility] [address] [place] [phone] Referring Neurosurgery 11/07/22 [facility] 05/09/22 Purchasing Engineer Relationship Specialty Start Date End Date Jordan Azar MD PCP - General Family Medicine 10/13/14 Hua Marquez Jr., DO [address] [place] [address] Referring Gastroenterology 05/25/18 Ramirez Nieto MD [address] [place] [phone] Primary Staff Physician Cardiology 12/31/20 Kat Leal, [employer] [facility] [address] [place] [address] Transplant Center 06/10/22 Tiffany Bucio [address] [phone] Referring Neurosurgery 11/07/22 [facility] 05/09/22 Purchasing Engineer Relationship Specialty Start Date End Date Jordan Azar MD PCP - General Family Medicine 10/13/14 Hua Marquez Jr., DO [address] [place] [address] Referring Gastroenterology 05/25/18 Ramirez Nieto MD [address] [place] [address] Primary Staff Physician Cardiology 12/31/20 Kat Leal RN [facility] [address] [place] [address] Transplant Center 06/10/22 Tiffany Bucio [address] [place] [phone] Referring Neurosurgery 11/07/22 [facility] 05/09/22 Purchasing Engineer Relationship Specialty Start Date End Date Jordan Azar MD PCP - General Family Medicine 10/13/14 Hua Marquez Jr., [address] [place] [address] Referring Gastroenterology 05/25/18 Ramirez Nieto MD [address] [place] [address] Primary Staff Physician Cardiology 12/31/20 Kat Leal RN [facility] [address] [place] [address] Transplant Center 06/10/22 Tiffany Bucio [address] [place] [phone] Referring Neurosurgery 11/07/22 [facility] 05/09/22 Purchasing Engineer Relationship Specialty Start Date End Date Jordan Azar MD PCP - General Family Medicine 10/13/14 Hua Marquez Jr., DO 703 [facility] [address] [place] [address] Referring Gastroenterology 05/25/18 Ramirez Nieto MD [address] [place] [address] Primary Staff Physician Cardiology 12/31/20 Kat Leal, [employer] [facility] [address] [place] [address] Transplant Center 06/10/22 Tiffany Bucio [address] [facility] [address] [place] [phone] Referring Neurosurgery 11/07/22 [facility] 05/09/22 Goals (unrecognized section and content) Goals [...] BE BASED ON THE PRIMARY CLINICAL RECORDS. [employer] [facility]. provides no warranty or guarantee of the accuracy or completeness of information in this document.
== END 2024-11-22 10:15 | disposition home or self-care (01) ==
LOC: RAD 10:17
PROVIDERS: PCP Family Medicine; Visit Provider Family Medicine
DX: M54.16 Radiculopathy, lumbar region (principal); I71.40 Abdominal aortic aneurysm, without rupture, unspecified; M51.369 Other intervertebral disc degeneration, lumbar region without mention of lumbar back pain or lower extremity pain
CPT/HCPCS: 72110

== ENCOUNTER 2024-11-23 09:37 | Outpatient (OUT) | payer OTHER, SELFPAY ==
--- OUTSIDE RECORDS SUMMARY | 2024-11-23 09:43 | XMS_ITS | CCD ---
Author Organization [facility] Care Team Providers Care Leadership Development Consultant Name Role Phone Preeti, Lavell S Unavailable [...] Provider [phone] Hua Marquez Jr. Unavailable [phone] Gerson PORTILLO, Chete Unavailable Jordan Azar MD Primary Care Provider [phone] Hua Marquez Jr. Unavailable Gerson PORTILLO, Chete Unavailable Jordan Azar MD Primary Care Provider [phone] Hua Marquez Jr. Unavailable Jordan Azar MD Primary Care Provider [phone] Jimmy Escalante DO, David L Unavailable [phone] Jordan Azar MD Primary Care Provider [phone] Jimmy Escalante DO, David L Unavailable Gerson PORTILLO, Chete Unavailable DAYNA REYES Referring Unavailab le JORDAN AZAR Primary Care Unavailable MD Jordan Azar Primary Care Provider [phone] MD Dayna Reyes Attending Provider [phone] Elvis WILBURN, Kat Unavailable Unavailable HOY ., DR ORTEGA Attending [...] Unavailable MD Jordan Azar Primary Care Provider [phone] KALYN Hernandez Attending Provider [phone] Jordan Azar MD Primary Care Provider [phone] Gerson PORTILLO, Ramirez [place] Unavailable Bonifacio Null Attending Unavailab le Bonifacio Null [...] Unavailable HOY, JORDAN M Primary Care Unavailable REMER BRITTON M Admitting Unavailable REMERBRITTON Attending Unavailable HOY, JORDAN M Primary Care Unavailable HOY, JORDAN M Primary Care Unavailable SIUDOWSKI, REBECCA A Referring Unavailable HOY, JORDAN M Primary [...] Unavailable HOY, JORDAN M Primary Care Unavailable Jordan Azar MD Unavailable Allergies Allergy Classification Reported Allergen(s) Allergy Type Date of Onset Reaction(s) Facility (20 sources) pregabalin; Translations: [PREGABALIN] Drug Allergy 5 Mental Status Change [facility] (1 source) pregabalin Drug Allergy 5 [facility] (1 source) pregabalin Drug Allergy 3 [facility] Medications Current Medications Medication Drug [...] therapy completed) take 1 tablet by yogesh th every four hours Tylenol 325 MG 1 tablet as needed Orally every 4 hrs Active Comment on above: Take 2 tablets by [facility] every 6 hours as needed. Take 2 tablets by [facility] every 6 hours. Take 1 tablet by [facility] every 6 hours as needed for pain. [...] Discontinued Start: 06-25-2020 take 2 tablets by [facility] once daily Carvedilol (Coreg) 3.125 mg Tablet Active 6.25 MG PO Daily June 24, 2020 11:00pm Comment on above: Take 1 tablet by [facility] twice daily. Take 1 tablet by [facility] two times a day. cephalexin 500 mg [...] 1 tablet by yogesh th once daily. with your largest meal docusate sodium 100 mg oral capsule (3 sources) Start: End: take 1 capsule by mouth twice daily docusate sodium (COLACE) 100 mg capsule Take 1 capsule by mouth twice daily for 7 days. 14 capsule 0 03/05/2022 03/12/2022 Active Comment on above: Take 1 capsule by mo [facility] twice daily for 7 days. Elavil [...] 1 tablet by yogesh th twice daily. multivit-min/FA/lycop en/lutein (CENTRUM SILVER MEN [...] 05/27/2022 Discontinued take 1 capsule by mo moh every twelve hours CellCept 250 MG 1 capsule Orally Twice a day Active Comment on above: Take 4 capsules by m outh twice daily. Take 2 capsules by m outh two times a day. rifAXIMin 550 mg oral tablet (20 sources) Rifamycin Antibacterial Start: 021 End: 022 take 1 tablet by mouth twice daily Rifaximin (Xifaxan) 550 mg Tablet Active 550 MG PO Twice daily September 20, 2021 11:00pm Comment on above: Take 1 tablet by yogesh twice daily. simvastatin 20 mg oral tablet (20 sources) HMG-CoA Reductase Inhibitor Start: 021 End: take 1 tablet by mouth once [...] Inhibitor Antibacterial, Sulfonamide Antimicrobial Start: 023 End: take 1 tablet by mouth once sulfamethoxazole-tr [...] Start: 12-27-2022 take 1 capsule by mo [facility] twice daily tacrolimus IR (PROGRAF) 0.5 mg capsule Take 1 capsule by mouth twice daily. Take in addition to one 1mg capsule for total dose of 1.5mg twice daily. 60 capsule 12/27/2022 Active Start: 09-16-2022 End: 11-07-2022 take [...] capsules by mouth twice daily. 120 capsule 11/07/2022 Active Start: 09-01-2022 End: 09-15-2022 take [...] 200 mg oral capsule (20 sources) Start: 2 Coenzyme Q10 (Co Q-10) 200 mg Capsule [...] 1 tablet by mouth twice daily Hydrocodone-Acetaminophen (Antigo) 7.5-32 5 mg Tablet Discontinued 1 TAB PO Twice daily April 07, 2017 12:00am April 27, 2018 1:48pm End: 03-04-2022 take 1 tablet by mouth every eight hours as needed HYDROcodone-Acetaminophen (NORCO) 7.5-32 5 mg per tablet Take 1 tablet by mouth every 8 hours as needed for pain. 0 03/04/2022 Discontinued Comment on above: Take 1 tablet by yogesh th every 8 hours as needed for pain. [...] tablet (20 sources) Tricyclic Antidepressant Start: 04-07-19 End: 04-13-19 take 100 mg by mouth [...] th twice daily. Take 2 tablets in th e morning and 1 tablet in the afternoon. [...] 2017 12:00am April 27, 2018 1:51pm nystatin [id number] unt/ml oral suspension (6 sources) Polyene Antifungal [...] Comment on above: Take 4 tablets by [facility] once a day 05/09/22-05/12/22 then take 3 [...] E-Cancel) Start: 02-11-2022 take 3 tablets by [facility] once daily spironolactone (ALDACTONE) 100 mg tablet [...] above: [facility] Take 2 tablets by mo ut once daily. Take 1.5 tablets by mouth once daily. Take 3 tablets by mo [facility] once daily. Take 4 tablets by [...] on above: Take 1 capsule by mo ut twice daily. vitamin a 06253 unt oral capsule (20 sources) Vitamin A [...] on above: Take 1 capsule by mo [facility] once daily. 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.] phasic wave form. 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 Date/Time: Feb 07 2024 9:26A Dictated by : ARTEMIO FLORES MD This examination was interpreted and the report reviewed and electronically signed by: JESSICA VANG MD on Feb 07 2024 10:56AM EST [facility] CNCOon 02-12-2023 CNCO Letter Text Normal [facility] CMV DNA DETECTION AND QUANTo n 01-17-2023 CMV DNA JAIME+probe Qn (P) Not detected Not Detected [facility] TACROLIMUS/FK-506 BLon 01-17 Tacrolimus (Bld) [Mass/Vol] 11.1 ng/mL 5.0 - 20.0 ng/mL [facility] CBC W Auto Differential pane l (Bld)on 01-16-2023 Basophils (Bld) [#/Vol] 0.04 10*3/uL <0.11 k/uL [facility] Basophils/100 WBC (Bld) 0.6 % [facility] Differential cell count method Nom (Bld) Auto [facility] Eosinophils (Bld) [#/Vol] 0.10 10*3/uL <0.46 k/uL [facility] Eosinophils/100 WBC (Bld) 1.6 % [facility] Erythrocyte distribution width (RBC) [Ratio] 13.6 % 11.5 - 15.0 % [facility] Hematocrit (Bld) [Volume fraction] 44.2 % 39.0 - 51.0 % [facility] Hemoglobin (Bld) [Mass/Vol] 14.5 g/dL 13.0 - 17.0 g/dL [facility] Immature granulocytes (Bld) [#/Vol] 0.04 10*3/uL <0.10 k/uL [facility] Immature granulocytes/100 WBC (Bld) 0.6 % [facility] Lymphocytes (Bld) [#/Vol] 0.88 10*3/uL Low 1.00 - 4.00 k/uL [facility] Lymphocytes/100 WBC (Bld) 13.8 % [facility] MCH (RBC) [Entitic mass] 31.6 pg 26.0 - 34.0 pg [facility] MCHC (RBC) [Mass/Vol] 32.8 g/dL 30.5 - 36.0 g/dL [facility] MCV (RBC) [Entitic vol] 96.3 fL 80.0 - 100.0 fL [facility] Monocytes (Bld) [#/Vol] 0.52 10*3/uL <0.87 k/uL [facility] Monocytes/100 WBC (Bld) 8.1 % [facility] Neutrophils (Bld) [#/Vol] 4.82 10*3/uL 1.45 - 7.50 k/uL [facility] Neutrophils/100 WBC (Bld) 75.3 % [facility] Nucleated RBC (Bld) [#/Vol] <0.01 k/uL [facility] Nucleated RBC/100 WBC (Bld) [Ratio] 0.0 /100 WBC [facility] Platelet mean volume (Bld) [Entitic vol] 10.7 fL 9.0 - 12.7 fL [facility] Platelets (Bld) [#/Vol] 139 10*3/uL Low 150 - 400 k/uL [facility] RBC (Bld) [#/Vol] 4.59 10*6/uL 4.20 - 6.0 0 m/uL [facility] WBC (Bld) [#/Vol] 6.40 10*3/uL 3.70 - 11.00 k/uL [facility] Comprehensive metabolic 2000 panelon 01-16-2023 Albumin [Mass/Vol] 4.6 g/dL 3.9 - 4.9 g/dL [facility] ALP [Catalytic activity/Vol] 198 U/L High 38 - 113 U/L [facility] ALT [Catalytic activity/Vol] 64 U/L High 10 - 54 U/L [facility] Anion gap [Moles/Vol] 8 mmol/L Low 9 - 18 mmol/L [facility] AST [Catalytic activity/Vol] 37 U/L 14 - 40 U/L [facility] Bilirubin [Mass/Vol] 0.6 mg/dL 0.2 - 1 .3 mg/dL [facility] Calcium [Mass/Vol] 10.1 mg/dL 8.5 - 10. 2 mg/dL [facility] Chloride [Moles/Vol] 104 mmol/L 97 - 10 5 mmol/L [facility] CO2 [Moles/Vol] 28 mmol/L 22 - 30 mmol/L [facility] Creatinine [Mass/Vol] 1.13 mg/dL 0.73 - 1.22 mg/dL [facility] Estimated Glomerular Filtration Rate 73 mL/min/1.73m >=60 mL/min/1.73 m [facility] Glucose [Mass/Vol] 115 mg/dL High 74 - 99 mg/dL [facility] Potassium [Moles/Vol] 5.1 mmol/L 3.7 - 5.1 mmol/L [facility] Protein [Mass/Vol] 7.2 g/dL 6.3 - 8.0 g/dL [facility] Sodium [Moles/Vol] 140 mmol/L 136 - 144 mmol/L [facility] Urea nitrogen [Mass/Vol] 24 mg/dL 9 - 24 mg/dL [facility] GGT BLDon 10-16-2023 Gamma glutamyl transferase [Catalytic activity/Vol] 198 U/L High 10 - 70 U/L [facility] MAGNESIUM BLDon 01-16-2023 Magnesium [Mass/Vol] 1.9 mg/dL 1.7 - 2 .3 mg/dL [facility] PHOSPHORUS INORGANICon 01-16 Phosphate [Mass/Vol] 3.3 mg/dL 2.7 - 4 .8 mg/dL [facility] CMV DNA DETECTION AND QUANTo n 01-10-2023 CMV DNA JAIME+probe Qn (P) Not detected Not Detected [facility] TACROLIMUS/FK-506 BLon 01-10 Tacrolimus (Bld) [Mass/Vol] 10.5 ng/mL 5.0 - 20.0 ng/mL [facility] CBC W Auto Differential pane l (Bld)on 01-09-2023 Basophils (Bld) [#/Vol] 0.04 10*3/uL <0.11 k/uL [facility] Basophils/100 WBC (Bld) 0.5 % [facility] Differential cell count method Nom (Bld) Auto [facility] Eosinophils (Bld) [#/Vol] 0.12 10*3/uL <0.46 k/uL [facility] Eosinophils/100 WBC (Bld) 1.6 % [facility] Erythrocyte distribution width (RBC) [Ratio] 13.6 % 11.5 - 15.0 % [facility] Hematocrit (Bld) [Volume fraction] 43.1 % 39.0 - 51.0 % [facility] Hemoglobin (Bld) [Mass/Vol] 14.3 g/dL 13.0 - 17.0 g/dL [facility] Immature granulocytes (Bld) [#/Vol] 0.06 10*3/uL <0.10 k/uL [facility] Immature granulocytes/100 WBC (Bld) 0.8 % [facility] Lymphocytes (Bld) [#/Vol] 1.07 10*3/uL 1.00 - 4.00 k/uL [facility] Lymphocytes/100 WBC (Bld) 14.4 % [facility] MCH (RBC) [Entitic mass] 31.6 pg 26.0 - 34.0 pg [facility] MCHC (RBC) [Mass/Vol] 33.2 g/dL 30.5 - 36.0 g/dL [facility] MCV (RBC) [Entitic vol] 95.1 fL 80.0 - 100.0 fL [facility] Monocytes (Bld) [#/Vol] 0.56 10*3/uL <0.87 k/uL [facility] Monocytes/100 WBC (Bld) 7.5 % [facility] Neutrophils (Bld) [#/Vol] 5.60 10*3/uL 1.45 - 7.50 k/uL [facility] Neutrophils/100 WBC (Bld) 75.2 % [facility] Nucleated RBC (Bld) [#/Vol] <0.01 k/uL [facility] Nucleated RBC/100 WBC (Bld) [Ratio] 0.0 /100 WBC [facility] Platelet mean volume (Bld) [Entitic vol] 10.5 fL 9.0 - 12.7 fL [facility] Platelets (Bld) [#/Vol] 144 10*3/uL Low 150 - 400 k/uL [facility] RBC (Bld) [#/Vol] 4.53 10*6/uL 4.20 - 6.0 0 m/uL [facility] WBC (Bld) [#/Vol] 7.45 10*3/uL 3.70 - 11.00 k/uL [facility] Comprehensive metabolic 2000 panelon 01-09-2023 Albumin [Mass/Vol] 4.7 g/dL 3.9 - 4.9 g/dL [facility] ALP [Catalytic activity/Vol] 241 U/L High 38 - 113 U/L [facility] ALT [Catalytic activity/Vol] 88 U/L High 10 - 54 U/L [facility] Anion gap [Moles/Vol] 8 mmol/L Low 9 - 18 mmol/L [facility] AST [Catalytic activity/Vol] 37 U/L 14 - 40 U/L [facility] Bilirubin [Mass/Vol] 0.5 mg/dL 0.2 - 1 .3 mg/dL [facility] Calcium [Mass/Vol] 10.1 mg/dL 8.5 - 10. 2 mg/dL [facility] Chloride [Moles/Vol] 103 mmol/L 97 - 10 5 mmol/L [facility] CO2 [Moles/Vol] 28 mmol/L 22 - 30 mmol/L [facility] Creatinine [Mass/Vol] 1.14 mg/dL 0.73 - 1.22 mg/dL [facility] Estimated Glomerular Filtration Rate 72 mL/min/1.73m >=60 mL/min/1.73 m [facility] Glucose [Mass/Vol] 137 mg/dL High 74 - 99 mg/dL [facility] Potassium [Moles/Vol] 4.9 mmol/L 3.7 - 5.1 mmol/L [facility] Protein [Mass/Vol] 7.3 g/dL 6.3 - 8.0 g/dL [facility] Sodium [Moles/Vol] 139 mmol/L 136 - 144 mmol/L [facility] Urea nitrogen [Mass/Vol] 22 mg/dL 9 - 24 mg/dL [facility] GGT Don 01-09-2023 Gamma glutamyl transferase [Catalytic activity/Vol] 215 U/L High 10 - 70 U/L [facility] MAGNESIUM Don 01-09-2023 Magnesium [Mass/Vol] 1.9 mg/dL 1.7 - 2 .3 mg/dL [facility] PHOSPHORUS INORGANICon 01-09 Phosphate [Mass/Vol] 2.6 mg/dL Low 2.7 - 4 .8 mg/dL [facility] US ABD LIVER VASCULARon 11-01 [facility] US DOPPLER COMPLETEon 2022 [facility] TACROLIMUS/FK-506 BLon 10-05 Tacrolimus (Bld) [Mass/Vol] 6.5 ng/mL 5.0 - 20.0 ng/mL [facility] CMV DNA DETECTION AND QUANTo n 10-04-2022 CMV DNA JAIME+probe Qn (P) Not detected Not Detected [facility] CBC W Auto Differential pane l (Bld)on 10-03-2022 Basophils (Bld) [#/Vol] 0.03 10*3/uL <0.11 k/uL [facility] Basophils/100 WBC (Bld) 0.2 % [facility] Differential cell count method Nom (Bld) Auto [facility] Eosinophils (Bld) [#/Vol] 0.10 10*3/uL <0.46 k/uL [facility] Eosinophils/100 WBC (Bld) 0.8 % [facility] Erythrocyte distribution width (RBC) [Ratio] 14.4 % 11.5 - 15.0 % [facility] Hematocrit (Bld) [Volume fraction] 43.3 % 39.0 - 51.0 % [facility] Hemoglobin (Bld) [Mass/Vol] 14.6 g/dL 13.0 - 17.0 g/dL [facility] Immature granulocytes (Bld) [#/Vol] 0.06 10*3/uL <0.10 k/uL [facility] Immature granulocytes/100 WBC (Bld) 0.5 % [facility] Lymphocytes (Bld) [#/Vol] 1.27 10*3/uL 1.00 - 4.00 k/uL [facility] Lymphocytes/100 WBC (Bld) 10.2 % [facility] MCH (RBC) [Entitic mass] 30.2 pg 26.0 - 34.0 pg [facility] MCHC (RBC) [Mass/Vol] 33.7 g/dL 30.5 - 36.0 g/dL [facility] MCV (RBC) [Entitic vol] 89.5 fL 80.0 - 100.0 fL [facility] Monocytes (Bld) [#/Vol] 0.76 10*3/uL <0.87 k/uL [facility] Monocytes/100 WBC (Bld) 6.1 % [facility] Neutrophils (Bld) [#/Vol] 10.27 10*3/uL High 1.45 - 7.50 k/uL [facility] Neutrophils/100 WBC (Bld) 82.2 % [facility] Nucleated RBC (Bld) [#/Vol] <0.01 k/uL [facility] Nucleated RBC/100 WBC (Bld) [Ratio] 0.0 /100 WBC [facility] Platelet mean volume (Bld) [Entitic vol] 10.8 fL 9.0 - 12.7 fL [facility] Platelets (Bld) [#/Vol] 125 10*3/uL Low 150 - 400 k/uL [facility] RBC (Bld) [#/Vol] 4.84 10*6/uL 4.20 - 6.0 0 m/uL [facility] WBC (Bld) [#/Vol] 12.49 10*3/uL High 3.70 - 11.00 k/uL [facility] Comprehensive metabolic 2000 panelon 10-03-2022 Albumin [Mass/Vol] 4.4 g/dL 3.9 - 4.9 g/dL [facility] ALP [Catalytic activity/Vol] 89 U/L 38 - 113 U/L [facility] ALT [Catalytic activity/Vol] 12 U/L 10 - 54 U/L [facility] Anion gap [Moles/Vol] 7 mmol/L Low 9 - 18 mmol/L [facility] AST [Catalytic activity/Vol] 11 U/L Low 14 - 40 U/L [facility] Bilirubin [Mass/Vol] 0.4 mg/dL 0.2 - 1 .3 mg/dL [facility] Calcium [Mass/Vol] 9.3 mg/dL 8.5 - 10. 2 mg/dL [facility] Chloride [Moles/Vol] 105 mmol/L 97 - 10 5 mmol/L [facility] CO2 [Moles/Vol] 27 mmol/L 22 - 30 mmol/L [facility] Creatinine [Mass/Vol] 1.29 mg/dL High 0.73 - 1.22 mg/dL [facility] Estimated Glomerular Filtration Rate 62 mL/min/1.73m >=60 mL/min/1.73 m [facility] Glucose [Mass/Vol] 108 mg/dL High 74 - 99 mg/dL [facility] Potassium [Moles/Vol] 4.3 mmol/L 3.7 - 5.1 mmol/L [facility] Protein [Mass/Vol] 6.7 g/dL 6.3 - 8.0 g/dL [facility] Sodium [Moles/Vol] 139 mmol/L 136 - 144 mmol/L [facility] Urea nitrogen [Mass/Vol] 36 mg/dL High 9 - 24 mg/dL [facility] GGT [facility] 10-03-2022 Gamma glutamyl transferase [Catalytic activity/Vol] 35 U/L 10 - 70 U/L [facility] MAGNESIUM [facility] 10-03-2022 Magnesium [Mass/Vol] 2.2 mg/dL 1.7 - 2 .3 mg/dL [facility] PHOSPHORUS INORGANICon 10-03 Phosphate [Mass/Vol] 3.0 mg/dL 2.7 - 4 .8 mg/dL [facility] CBC W Auto Differential pane l (Bld)on 08-30-2022 Basophils (Bld) [#/Vol] 0.03 10*3/uL <0.11 k/uL [facility] Basophils/100 WBC (Bld) 0.6 % [facility] Differential cell count method Nom (Bld) Auto [facility] Eosinophils (Bld) [#/Vol] 0.15 10*3/uL <0.46 k/uL [facility] Eosinophils/100 WBC (Bld) 2.9 % [facility] Erythrocyte distribution width (RBC) [Ratio] 13.3 % 11.5 - 15.0 % [facility] Hematocrit (Bld) [Volume fraction] 44.1 % 39.0 - 51.0 % [facility] Hemoglobin (Bld) [Mass/Vol] 14.1 g/dL 13.0 - 17.0 g/dL [facility] Immature granulocytes (Bld) [#/Vol] <0.10 k/uL [facility] [place] Imm[place] granulocytes/100 WBC (Bld) 0.4 % [facility] Lymphocytes (Bld) [#/Vol] 0.78 10*3/uL Low 1.00 - 4.00 k/uL [facility] Lymphocytes/100 WBC (Bld) 15.1 % [facility] MCH (RBC) [Entitic mass] 28.6 pg 26.0 - 34.0 pg [facility] MCHC (RBC) [Mass/Vol] 32.0 g/dL 30.5 - 36.0 g/dL [facility] MCV (RBC) [Entitic vol] 89.5 fL 80.0 - 100.0 fL [facility] Monocytes (Bld) [#/Vol] 0.38 10*3/uL <0.87 k/uL [facility] Monocytes/100 WBC (Bld) 7.3 % [facility] Neutrophils (Bld) [#/Vol] 3.82 10*3/uL 1.45 - 7.50 k/uL [facility] Neutrophils/100 WBC (Bld) 73.7 % [facility] Nucleated RBC (Bld) [#/Vol] <0.01 k/uL [facility] Nucleated RBC/100 WBC (Bld) [Ratio] 0.0 /100 WBC [facility] Platelet mean volume (Bld) [Entitic vol] 11.2 fL 9.0 - 12.7 fL [facility] Platelets (Bld) [#/Vol] 109 10*3/uL Low 150 - 400 k/uL [facility] RBC (Bld) [#/Vol] 4.93 10*6/uL 4.20 - 6.0 0 m/uL [facility] WBC (Bld) [#/Vol] 5.18 10*3/uL 3.70 - 11.00 k/uL [facility] CMV DNA DETECTION AND QUANTo n 08-30-2022 CMV DNA JAIME+probe Qn (P) Not detected Not Detected [facility] Comprehensive metabolic 2000 panelon 08-30-2022 Albumin [Mass/Vol] 4.3 g/dL 3.9 - 4.9 g/dL [facility] ALP [Catalytic activity/Vol] 178 U/L High 38 - 113 U/L [facility] ALT [Catalytic activity/Vol] 60 U/L High 10 - 54 U/L [facility] Anion gap [Moles/Vol] 8 mmol/L Low 9 - 18 mmol/L [facility] AST [Catalytic activity/Vol] 46 U/L High 14 - 40 U/L [facility] Bilirubin [Mass/Vol] 0.6 mg/dL 0.2 - 1 .3 mg/dL [facility] Calcium [Mass/Vol] 9.7 mg/dL 8.5 - 10. 2 mg/dL [facility] Chloride [Moles/Vol] 104 mmol/L 97 - 10 5 mmol/L [facility] CO2 [Moles/Vol] 27 mmol/L 22 - 30 mmol/L [facility] Creatinine [Mass/Vol] 1.14 mg/dL 0.73 - 1.22 mg/dL [facility] Estimated Glomerular Filtration Rate 72 mL/min/1.73m >=60 mL/min/1.73 m [facility] Glucose [Mass/Vol] 107 mg/dL High 74 - 99 mg/dL [facility] Potassium [Moles/Vol] 4.7 mmol/L 3.7 - 5.1 mmol/L [facility] Protein [Mass/Vol] 6.9 g/dL 6.3 - 8.0 g/dL [facility] Sodium [Moles/Vol] 139 mmol/L 136 - 144 mmol/L [facility] Urea nitrogen [Mass/Vol] 27 mg/dL High 9 - 24 mg/dL [facility] GGT [facility] 08-30-2022 Gamma glutamyl transferase [Catalytic activity/Vol] 332 U/L High 10 - 70 U/L [facility] MAGNESIUM [facility] 08-30-2022 Magnesium [Mass/Vol] 1.7 mg/dL 1.7 - 2 .3 mg/dL [facility] PHOSPHORUS INORGANICon 08-30 Phosphate [Mass/Vol] 2.2 mg/dL Low 2.7 - 4 .8 mg/dL [facility] TACROLIMUS/FK-506 BLon 08-30 Tacrolimus (Bld) [Mass/Vol] 7.6 ng/mL 5.0 - 20.0 ng/mL [facility] CT ABD/PEL WO IVCONon 2022 [facility] No Panel Informationon 07-04 [facility] CT LSPINE WO CONon CT LSPINE WO [...] by: YSABEL CARPENTER Date: 2022-06-08 14:20 Normal [facility] Covid-19 PCR (CVDTBH)on SARS-CoV-2 (COVID-19) RNA JAIME+probe Ql (Unsp spec) Not detected Normal NOT DETECTED [facility] Comment on above: Result Comment: When diagnostic [...] for this test is supported by the [place] of Health and Human Service's declaration that [...] longer be used). Performed By: #### [facility] #### [facility] [address] [place] [address] Dr. Angeline Coronado HEMOGLOBIN A1C (POC)on 05-31 HbA1c (Bld) [Mass fraction] 4.7 % 4.2 - 5.6 % [facility] GGT BLDon 05-27-2022 Gamma glutamyl transferase [Catalytic activity/Vol] 106 U/L High 10 - 70 U/L [facility] CBC W Auto Differential pane l (Bld)on 05-26-2022 Basophils (Bld) [#/Vol] 0.08 10*3/uL <0.11 k/uL [facility] Basophils/100 WBC (Bld) 1.1 % [facility] Differential cell count method Nom (Bld) Auto [facility] Eosinophils (Bld) [#/Vol] 0.25 10*3/uL <0.46 k/uL [facility] Eosinophils/100 WBC (Bld) 3.5 % [facility] Erythrocyte distribution width (RBC) [Ratio] 16.6 % High 11.5 - 15.0 % [facility] Hematocrit (Bld) [Volume fraction] 31.9 % Low 39.0 - 51.0 % [facility] Hemoglobin (Bld) [Mass/Vol] 10.3 g/dL Low 13.0 - 17.0 g/dL [facility] Immature granulocytes (Bld) [#/Vol] 0.09 10*3/uL <0.10 k/uL [facility] Immature granulocytes/100 WBC (Bld) 1.3 % [facility] Lymphocytes (Bld) [#/Vol] 0.67 10*3/uL Low 1.00 - 4.00 k/uL [facility] Lymphocytes/100 WBC (Bld) 9.5 % [facility] MCH (RBC) [Entitic mass] 30.3 pg 26.0 - 34.0 pg [facility] MCHC (RBC) [Mass/Vol] 32.3 g/dL 30.5 - 36.0 g/dL [facility] MCV (RBC) [Entitic vol] 93.8 fL 80.0 - 100.0 fL [facility] Monocytes (Bld) [#/Vol] 0.62 10*3/uL <0.87 k/uL [facility] Monocytes/100 WBC (Bld) 8.8 % [facility] Neutrophils (Bld) [#/Vol] 5.35 10*3/uL 1.45 - 7.50 k/uL [facility] Neutrophils/100 WBC (Bld) 75.8 % [facility] Nucleated RBC (Bld) [#/Vol] <0.01 k/uL [facility] Nucleated RBC/100 WBC (Bld) [Ratio] 0.0 /100 WBC [facility] Platelet mean volume (Bld) [Entitic vol] 9.3 fL 9.0 - 12.7 fL [facility] Platelets (Bld) [#/Vol] 241 10*3/uL 150 - 400 k/uL [facility] RBC (Bld) [#/Vol] 3.40 10*6/uL Low 4.20 - 6.0 0 m/uL [facility] WBC (Bld) [#/Vol] 7.06 10*3/uL 3.70 - 11.00 k/uL [facility] Comprehensive metabolic 2000 panelon 05-26-2022 Albumin [Mass/Vol] 3.5 g/dL Low 3.9 - 4.9 g/dL [facility] ALP [Catalytic activity/Vol] 183 U/L High 38 - 113 U/L [facility] ALT [Catalytic activity/Vol] 19 U/L 10 - 54 U/L [facility] Anion gap [Moles/Vol] 10 mmol/L 9 - 18 mmol/L [facility] AST [Catalytic activity/Vol] 18 U/L 14 - 40 U/L [facility] Bilirubin [Mass/Vol] 0.7 mg/dL 0.2 - 1 .3 mg/dL [facility] Calcium [Mass/Vol] 9.1 mg/dL 8.5 - 10. 2 mg/dL [facility] Chloride [Moles/Vol] 102 mmol/L 97 - 10 5 mmol/L [facility] CO2 [Moles/Vol] 25 mmol/L 22 - 30 mmol/L [facility] Creatinine [Mass/Vol] 0.92 mg/dL 0.73 - 1.22 mg/dL [facility] Estimated Glomerular Filtration Rate 93 mL/min/1.73m >=60 mL/min/1.73 m [facility] Glucose [Mass/Vol] 108 mg/dL High 74 - 99 mg/dL [facility] Potassium [Moles/Vol] 4.9 mmol/L 3.7 - 5.1 mmol/L [facility] Protein [Mass/Vol] 6.7 g/dL 6.3 - 8.0 g/dL [facility] Sodium [Moles/Vol] 137 mmol/L 136 - 144 mmol/L [facility] Urea nitrogen [Mass/Vol] 22 mg/dL 9 - 24 mg/dL [facility] MAGNESIUM BLDon 05-26-2022 Magnesium [Mass/Vol] 1.5 mg/dL Low 1.7 - 2 .3 mg/dL [facility] PHOSPHORUS INORGANICon 05-26 Phosphate [Mass/Vol] 2.9 mg/dL 2.7 - 4 .8 mg/dL [facility] TACROLIMUS/FK-506 BLon 05-26 Tacrolimus (Bld) [Mass/Vol] 11.5 ng/mL 5.0 - 20.0 ng/mL [facility] XR TSPINE 3 VIEWSon 05-26-19 XR TSPINE [...] by: YSABEL CARPENTER Date: 2022-05-26 18:46 Normal [facility] CMV DNA DETECTION AND QUANTo n 2022 CMV DNA JAIME+probe Qn (P) Not detected Not Detected [facility] TACROLIMUS/FK-506 BLon 05-24 Tacrolimus (Bld) [Mass/Vol] 11.6 ng/mL 5.0 - 20.0 ng/mL [facility] CBC W Auto Differential pane l (Bld)on 05-23-2022 Basophils (Bld) [#/Vol] 0.09 10*3/uL <0.11 k/uL [facility] Basophils/100 WBC (Bld) 0.9 % [facility] Differential cell count method Nom (Bld) Auto [facility] Eosinophils (Bld) [#/Vol] 0.26 10*3/uL <0.46 k/uL [facility] Eosinophils/100 WBC (Bld) 2.6 % [facility] Erythrocyte distribution width (RBC) [Ratio] 16.7 % High 11.5 - 15.0 % [facility] Hematocrit (Bld) [Volume fraction] 33.0 % Low 39.0 - 51.0 % [facility] Hemoglobin (Bld) [Mass/Vol] 10.6 g/dL Low 13.0 - 17.0 g/dL [facility] Immature granulocytes (Bld) [#/Vol] 0.07 10*3/uL <0.10 k/uL [facility] Immature granulocytes/100 WBC (Bld) 0.7 % [facility] Lymphocytes (Bld) [#/Vol] 0.89 10*3/uL Low 1.00 - 4.00 k/uL [facility] Lymphocytes/100 WBC (Bld) 9.0 % [facility] MCH (RBC) [Entitic mass] 30.3 pg 26.0 - 34.0 pg [facility] MCHC (RBC) [Mass/Vol] 32.1 g/dL 30.5 - 36.0 g/dL [facility] MCV (RBC) [Entitic vol] 94.3 fL 80.0 - 100.0 fL [facility] Monocytes (Bld) [#/Vol] 0.71 10*3/uL <0.87 k/uL [facility] Monocytes/100 WBC (Bld) 7.2 % [facility] Neutrophils (Bld) [#/Vol] 7.86 10*3/uL High 1.45 - 7.50 k/uL [facility] Neutrophils/100 WBC (Bld) 79.6 % [facility] Nucleated RBC (Bld) [#/Vol] <0.01 k/uL [facility] Nucleated RBC/100 WBC (Bld) [Ratio] 0.0 /100 WBC [facility] Platelet mean volume (Bld) [Entitic vol] 9.9 fL 9.0 - 12.7 fL [facility] Platelets (Bld) [#/Vol] 246 10*3/uL 150 - 400 k/uL [facility] RBC (Bld) [#/Vol] 3.50 10*6/uL Low 4.20 - 6.0 0 m/uL [facility] WBC (Bld) [#/Vol] 9.88 10*3/uL 3.70 - 11.00 k/uL [facility] Comprehensive metabolic 2000 panelon 05-23-2022 Albumin [Mass/Vol] 3.5 g/dL Low 3.9 - 4.9 g/dL [facility] ALP [Catalytic activity/Vol] 156 U/L High 38 - 113 U/L [facility] ALT [Catalytic activity/Vol] 19 U/L 10 - 54 U/L [facility] Anion gap [Moles/Vol] 10 mmol/L 9 - 18 mmol/L [facility] AST [Catalytic activity/Vol] 14 U/L 14 - 40 U/L [facility] Bilirubin [Mass/Vol] 0.7 mg/dL 0.2 - 1 .3 mg/dL [facility] Calcium [Mass/Vol] 9.0 mg/dL 8.5 - 10. 2 mg/dL [facility] Chloride [Moles/Vol] 102 mmol/L 97 - 10 5 mmol/L [facility] CO2 [Moles/Vol] 27 mmol/L 22 - 30 mmol/L [facility] Creatinine [Mass/Vol] 0.79 mg/dL 0.73 - 1.22 mg/dL [facility] Estimated Glomerular Filtration Rate 100 mL/min/1.73m >=60 mL/min/1.73 m [facility] Glucose [Mass/Vol] 102 mg/dL High 74 - 99 mg/dL [facility] Potassium [Moles/Vol] 4.9 mmol/L 3.7 - 5.1 mmol/L [facility] Protein [Mass/Vol] 6.8 g/dL 6.3 - 8.0 g/dL [facility] Sodium [Moles/Vol] 139 mmol/L 136 - 144 mmol/L [facility] Urea nitrogen [Mass/Vol] 17 mg/dL 9 - 24 mg/dL [facility] GGT Don 05-23-2022 Gamma glutamyl transferase [Catalytic activity/Vol] 109 U/L High 10 - 70 U/L [facility] MAGNESIUM BLDon 05-23-2022 Magnesium [Mass/Vol] 1.5 mg/dL Low 1.7 - 2 .3 mg/dL [facility] PHOSPHORUS INORGANICon 05-23 Phosphate [Mass/Vol] 2.9 mg/dL 2.7 - 4 .8 mg/dL [facility] CT LIVER W IVCONon 3 [facility] Activated partial thrombopla stin time (aPTT) in platelet poor plasma by coagulation aOrdered By: Dayna Reyes on 04-22-2022 aPTT Coag (PPP) [Time] 34.1 s 25.1-36.5 [facility] - CoagulationOrde red By: Dayna Reyes on 04-22-2022 PT Coag (PPP) [Time] 13.4 s 9.0-12.9 [facility] Platelet poor plasma interna tional normalized ratio (INR) by coagulation assay (relatOrdered By: Dayna Reyes on 01-20-2023 INR Coag (PPP) [Relative time] 1.2 {INR} [facility] Comment on above: INR Therapeutic Rang [...] 04-22-2022 Platelets (Bld) [#/Vol] 101 10*3/uL 150-450 [facility] US DOPPLER COMPLETEon 2022 [facility] US SCROTUM AND CONTENTSon [facility] CT ABD/PEL WO IVCONon 2021 [facility] BF MANUAL DIFFon 03-23-2022 Diff Total Body Fluid 100 cells counted [facility] Lymph%, BF 70 % High 18 - 36 % [facility] Macro%, BF 9 % Low 64 - 80 % [facility] Meso%, BF 4 % High 0 - 2 % [facility] Barrow%, BF 15 % [facility] Neut%, BF 2 % High 0 - 1 % [facility] ALBUMIN BFLon 03-22-2022 Albumin (Body fld) [Mass/Vol] 1.6 g/dL See Comment g/dL [facility] AMYLASE BFLon 03-22-2022 Amylase (Body fld) [Catalytic activity/Vol] 19 U/L See Comment U/L [facility] BODY FLUID CELL COUNTon 03-04 Clarity (Unsp spec) Slightly Cloudy Abnormal Clear [facility] Clarity (Unsp spec) Clear Clear [facility] RBC Manual cnt (Body fld) [#/Vol] <2,000 /uL [facility] Specimen source Nom (Body fld) ABDOMINAL FLUID. [facility] WBC Manual cnt (Body fld) [#/Vol] 139 /uL <1,000 /uL [facility] Laboratoryon 03-22-2022 Fluid Nom (Body fld) abdominal paracente sis ascites fluid [facility] Laboratory - Specimen inform ationon 03-22-2022 Color (Body fld) Yellow Yellow [facility] PROTEIN BFLon 03-22-2022 Protein (Body fld) [Mass/Vol] 3.3 g/dL See Comment g/dL [facility] US PARACENTESIS (POC) DDI US E ONLYon 03-22-2022 [facility] ASCITES SURVEYon 02-24-20 22 US ASCITES SURVEY * * *Final Report* * * DATE OF EXAM: Feb 23 2022 1:08PM [facility] 1016 - ASCITES SURVEY / PROCEDURE REASON: multiple diagnoses * * * * Physician Interpretation * * * * EXAMINATION: US ASCITES SURVEY Clinical history: 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) RESULT: A small to moderate amount of homogeneous ascites is seen IMPRESSION: Small to moderate amount of ascites [employer] Helper: JADE Transcribe Date/Time: Feb 23 2022 1:28P Dictated by : LORAINE POWELL MD This examination was interpreted and the report reviewed and electronically signed by: LORAINE POWELL MD on Feb 23 2022 1:28PM EST [id number] Normal [facility] ASCITES SURVEYon 02-11-20 [facility] CT CHEST WO IVCONon 12-30-19 [facility] US ASCITES SURVEYon 12-23-19 [facility] ABD LIVER VASCULARon 09-0 [facility] US DOPPLER COMPLETEon 2021 [facility] TYPE AND SCREEN,30 DAYon ABO O [facility] HIstorical Ab Scr Status Negative [facility] Rh Nom (Bld) Positive [facility] ACTIVATED PTTon 11-11-2021 aPTT Coag (PPP) [Time] 30.1 s 23.0 - 32.4 sec [facility] CBC W Auto Differential pane l (Bld)on 11-11-2021 Abs Immature Gran 0.03 k/uL <0.10 k/uL [facility] Basophils (Bld) [#/Vol] 0.03 10*3/uL <0.11 k/uL [facility] Basophils/100 WBC (Bld) 0.5 % [facility] Differential cell count method Nom (Bld) Auto [facility] Eosinophils (Bld) [#/Vol] 0.14 10*3/uL <0.46 k/uL [facility] Eosinophils/100 WBC (Bld) 2.3 % [facility] Erythrocyte distribution width (RBC) [Ratio] 15.7 % High 11.5 - 15.0 % [facility] Hematocrit (Bld) [Volume fraction] 46.1 % 39.0 - 51.0 % [facility] Hemoglobin (Bld) [Mass/Vol] 14.8 g/dL 13.0 - 17.0 g/dL [facility] Immature Gran % 0.5 % [facility] Lymphocytes (Bld) [#/Vol] 0.94 10*3/uL Low 1.00 - 4.00 k/uL [facility] Lymphocytes/100 WBC (Bld) 15.7 % [facility] MCH (RBC) [Entitic mass] 31.1 pg 26.0 - 34.0 pg [facility] MCHC (RBC) [Mass/Vol] 32.1 g/dL 30.5 - 36.0 g/dL [facility] MCV (RBC) [Entitic vol] 96.8 fL 80.0 - 100.0 fL [facility] Monocytes (Bld) [#/Vol] 0.42 10*3/uL <0.87 k/uL [facility] Monocytes/100 WBC (Bld) 7.0 % [facility] Neutrophils (Bld) [#/Vol] 4.42 10*3/uL 1.45 - 7.50 k/uL [facility] Neutrophils/100 WBC (Bld) 74.0 % [facility] Nucleated RBC (Bld) [#/Vol] <0.01 k/uL [facility] Nucleated RBC/100 WBC (Bld) [Ratio] 0.0 /100 WBC [facility] Platelet mean volume (Bld) [Entitic vol] [facility] Platelets (Bld) [#/Vol] 18 10*3/uL Low 150 - 400 k/uL [facility] RBC (Bld) [#/Vol] 4.76 10*6/uL 4.20 - 6.0 0 m/uL [facility] WBC (Bld) [#/Vol] 5.98 10*3/uL 3.70 - 11.00 k/uL [facility] Comprehensive metabolic 2000 panelon 11-11-2021 Albumin [Mass/Vol] 2.8 g/dL Low 3.9 - 4.9 g/dL [facility] ALP [Catalytic activity/Vol] 235 U/L High 38 - 113 U/L [facility] ALT [Catalytic activity/Vol] 27 U/L 10 - 54 U/L [facility] Anion gap [Moles/Vol] 7 mmol/L Low 9 - 18 mmol/L [facility] AST [Catalytic activity/Vol] 42 U/L High 14 - 40 U/L [facility] Bilirubin [Mass/Vol] 1.9 mg/dL High 0.2 - 1 .3 mg/dL [facility] Calcium [Mass/Vol] 9.1 mg/dL 8.5 - 10. 2 mg/dL [facility] Chloride [Moles/Vol] 102 mmol/L 97 - 10 5 mmol/L [facility] CO2 [Moles/Vol] 26 mmol/L 22 - 30 mmol/L [facility] Creatinine [Mass/Vol] 0.82 mg/dL 0.73 - 1.22 mg/dL [facility] Estimated Glomerular Filtration Rate 99 mL/min/1.73m >=60 mL/min/1.73 m [facility] Glucose [Mass/Vol] 100 mg/dL High 74 - 99 mg/dL [facility] Potassium [Moles/Vol] 5.3 mmol/L High 3.7 - 5.1 mmol/L [facility] Protein [Mass/Vol] 7.5 g/dL 6.3 - 8.0 g/dL [facility] Sodium [Moles/Vol] 135 mmol/L Low 136 - 144 mmol/L [facility] Urea nitrogen [Mass/Vol] 15 mg/dL 9 - 24 mg/dL [facility] PT panel Coag (PPP)on 2021 INR Coag (PPP) [Relative time] 1.2 {INR} 0.9 - 1.3 [facility] PT Coag (PPP) [Time] 12.1 s 9.7 - 1 3.0 sec [facility] Covid-19 PCR (CVDTBH)on 10-02 SARS-CoV-2 (COVID-19) RNA JAIME+probe Ql (Unsp spec) Not detected Normal NOT DETECTED [facility] Comment on above: Result Comment: This test is not yet approved or cleared by the [place] FDA. When there are no FDA-approved or cleared tests available, and other criteria are met, FDA can make tests available under an emergency access mechanism called an Emergency Use Authorization (EUA). The EUA for this test is supported by the [place] of Health and Human Service's (HHS's) declaration [...] consistent with SARS-CoV-2. Performed By: #### [facility] #### [facility] [address] [place] [address] Dr. Angeline Coronado LVEF STRESS ECHO DOBUTAMINEo n 09-13-2021 LV Ejection Fraction 55 % [facility] STRESS ECHO DOBUTAMINEon [facility] No Panel Informationon 07-13 [facility] BILIRUBIN DIRECT BLDon 07-07 Bilirubin.conjugated [Mass/Vol] 0.4 mg/dL High <0.2 mg/dL [facility] CBC W Auto Differential pane l (Bld)on 07-07-2021 Abs Immature Gran <0.03 <0.10 k/uL [facility] Basophils (Bld) [#/Vol] 0.03 10*3/uL <0.11 k/uL [facility] Basophils/100 WBC (Bld) 0.5 % [facility] Differential cell count method Nom (Bld) Auto [facility] Eosinophils (Bld) [#/Vol] 0.18 10*3/uL <0.46 k/uL [facility] Eosinophils/100 WBC (Bld) 3.2 % [facility] Erythrocyte distribution width (RBC) [Ratio] 14.3 % 11.5 - 15.0 % [facility] Hematocrit (Bld) [Volume fraction] 50.0 % 39.0 - 51.0 % [facility] Hemoglobin (Bld) [Mass/Vol] 16.1 g/dL 13.0 - 17.0 g/dL [facility] Immature Gran % 0.4 % [facility] Lymphocytes (Bld) [#/Vol] 0.95 10*3/uL Low 1.00 - 4.00 k/uL [facility] Lymphocytes/100 WBC (Bld) 17.0 % [facility] MCH (RBC) [Entitic mass] 30.9 pg 26.0 - 34.0 pg [facility] MCHC (RBC) [Mass/Vol] 32.2 g/dL 30.5 - 36.0 g/dL [facility] MCV (RBC) [Entitic vol] 96.0 fL 80.0 - 100.0 fL [facility] Monocytes (Bld) [#/Vol] 0.52 10*3/uL <0.87 k/uL [facility] Monocytes/100 WBC (Bld) 9.3 % [facility] Neutrophils (Bld) [#/Vol] 3.89 10*3/uL 1.45 - 7.50 k/uL [facility] Neutrophils/100 WBC (Bld) 69.6 % [facility] Nucleated RBC (Bld) [#/Vol] 10*3/uL <0.01 k/uL [facility] Nucleated RBC/100 WBC (Bld) [Ratio] 0.0 /100 WBC [facility] Platelet mean volume (Bld) [Entitic vol] 11.3 fL 9.0 - 12.7 fL [facility] Platelets (Bld) [#/Vol] 99 10*3/uL Low 150 - 400 k/uL [facility] RBC (Bld) [#/Vol] 5.21 10*6/uL 4.20 - 6.0 0 m/uL [facility] WBC (Bld) [#/Vol] 5.59 10*3/uL 3.70 - 11.00 k/uL [facility] Comprehensive metabolic 2000 panelon 07-07-2021 Albumin [Mass/Vol] 3.8 g/dL Low 3.9 - 4.9 g/dL [facility] ALP [Catalytic activity/Vol] 215 U/L High 38 - 113 U/L [facility] ALT [Catalytic activity/Vol] 12 U/L 10 - 54 U/L [facility] Anion gap [Moles/Vol] 12 mmol/L 9 - 18 mmol/L [facility] AST [Catalytic activity/Vol] 34 U/L 14 - 40 U/L [facility] Bilirubin [Mass/Vol] 1.6 mg/dL High 0.2 - 1 .3 mg/dL [facility] Calcium [Mass/Vol] 9.6 mg/dL 8.5 - 10. 2 mg/dL [facility] Chloride [Moles/Vol] 103 mmol/L 97 - 10 5 mmol/L [facility] CO2 [Moles/Vol] 24 mmol/L 22 - 30 mmol/L [facility] Creatinine [Mass/Vol] 0.87 mg/dL 0.73 - 1.22 mg/dL [facility] Estimated Glomerular Filtration Rate 98 mL/min/1.73m >=60 mL/min/1.73 m [facility] Glucose [Mass/Vol] 94 mg/dL 74 - 99 mg/dL [facility] Potassium [Moles/Vol] 4.8 mmol/L 3.7 - 5.1 mmol/L [facility] Protein [Mass/Vol] 8.7 g/dL High 6.3 - 8.0 g/dL [facility] Sodium [Moles/Vol] 139 mmol/L 136 - 144 mmol/L [facility] Urea nitrogen [Mass/Vol] 13 mg/dL 9 - 24 mg/dL [facility] PT panel Coag (PPP)on 2021 INR Coag (PPP) [Relative time] 1.1 {INR} 0.9 - 1.3 [facility] PT Coag (PPP) [Time] 11.4 s 9.7 - 1 3.0 sec [facility] No Panel Informationon 06-29 [facility] CT ABD/PEL WO IVCONon 2021 [facility] Coding Summary.on 04-12-2021 Coding Summary. CD:[id number] Gh0bWw+ PGhlYWQ+LD3XVDKaG07grNYkeN3 QX2qZMH8AUQPXMKEIKG3EIZ6kmQ L4JXomZ1TafjIc KbfbcVNoDG36NBh2MDL7xMjdKOu ifV2uiOWwT4c4SqUmPX99iD39CX peGBXbXoM7SfFprncmqNAv J3ztNzCneYKcTuz+PHRhYmxlIHd yZFDjZEcrIHZmTvGdpOnuOF6dCs 9yZGVyLWNvbGxhcHNlOiBj m1jlIWXmQVwiDC0bhEemD5DafJC 7EEMfp2z1Pi35cXI+KSJwRFH7nS njVCxnk366PsSbz1owCBW0 zNPrCLpxZWY5K04vg7M6HUEvBMG hWHQ6sHP6vZ9fwQcuewgqR2FxbS MzWqD8ZRQ5qVYofS6txTpl zxiblR8bRzw+B34JFH7BOSWKCU3 QQga5N8QcRdwxiCB+IG20GLRzMG 16aUJssOLcn0rviEu3LkFz EMJzGHN6rPnyTVnpn9WzARMwE70 srAHuj2D7KXJuxUmziAVgGgTqmY V0aC0zFFohbvmkb9futaqh Conzs3vbdd95vM98Q63bDPbnYSW iPII7NEBoKTDpkVnoij6vaG3qNl 8+IWeux0ohi0tioKo1JyPu BDLeltMtcQseWAH1c5AkKr56C0F iyWxpe5AcOxr8iv00sCQzh4J1hW N2ZSbaUCSlwH1bWPzwEqN0 DAPyZjUiiY32lKGnZJczBd5vvHx huWmqGD5uKVKaikbuRBTbbR5aSE PnzJOcrLfaMD7zMCDisyor r596AcQwTNB1AEClwLDcL5KlyN9 zDjXiQQKzZGOdG7TfmFGqPTcxJ9 43DLmxDbF5FRQtugAaB2Od MMBitXykWsY8z7R9Zw1Li6Jehwm wOHC5CJubPWCnJrAfEtQaAkR9D6 AxUsz9ECFqkAenDQ4jQ0Tc YISlncsdkhhxlIQ6POSlPPEslE6 5dIWpOMawFk0wi1F4a993TXUxVU PdkG90Zn0fgCesBYUmeMPE hY3pyvrhu6vmqjtlEcQrIBEaWBi 7ELy3DSOwhQftYbWsWDY1DtM0AS Q7uPVgvW7xuZsbvpjscP0w Oyc+O89tqE8yGCQ1NEP0yqyrQKH pjoAbQB51RF16Y4QwZtulhHUyqW U+XWBywlVedHbvKC7qZdAr i1ufq1DmJKthR6UaFBJaFLbjYbn 8RHIwUHJ9kBK8oO3iZBUbBXarr7 O2jPW7R8SshcOnff1va1wk MKEcWPttA98kvYXru2R4MQQhfKZ 3VTEplIrsHzQipO17Wea+PGNvbG nwc3XqVwnau3adq5imzTa7 IgOiRGFrtvUxwWcmXOH3v5OcGp0 8P53mPVdrQLOaSCSzMHTwVPMpmL vgjz2gnF4fBo2+PGNvbCB3 tPV1dM9kTDAjNgX8XBmzM578LyG etPExGimju1sno5dkvFh1OjLrCN RiyrBmuEfuWSZ8h7XnDe49 W48qATuiMXUrCYBdBFCtSKCpdVl yyz8doY0fKx3+BD5ji6wcvj27yP 48dHI+DFBjZZE7rEhmLWwn GRJkaL1jGCphLcT4RRCyIzEanD3 7pQRdAWcfGe3qlUbdvFwgFD0tYF Wbynmcd406KvIqm9leFCDo kZHeCFvcJPN9P75ux3J2XCSiEHV wCKY6aHN7lF8fwFqpyaatxCWgjD hxywXnbQjbJSmuXOjsF982 IHRvcDsnPlBhdGllbnQgTmFtZTo 1V0LeWpq0TLWroZlaEY2whSQyMK psUu7ufGjefXzxQF5jYYBj ujghe805RpSio2wvJEAviEUwAVo yVSN4E72qx6V8WTVoVOHfIRM0wZ Y9iP4svAknjdxxhQCwtPkw aeSmpLddXWwqCPmxG151TCPcvGx yGbSuxlBeLGRlzTR6BA75CB29uD Ebf8J6hZU8A2HsSPDlwznu vprvgMC8GKPwTOMyxB71Tv9lgRk tEs0fFJIhMKS6TQQgxMFeL7FroI 1vRjVvDLPvQCQsX6CcrSFw WIvjN069DNvlUxQ9RKMwlgYuX6I cQQBjsIiwWcC8d0P4Da0HM1V4BA 21KU43eGEki4V8cFX6C7Lr IREtstbklrynpPU2TVXuEWHxpM2 0Ev0uaXetNj1kRWWnXHI0QFAmrF BzI9CgrC0cUlVqPLQiEDZk Z4EcuDMpMHrpB400QOuxZcF4EYF zbxOeN2MmGJQfvWqnYoF7j1O8Dj 8WHTr2OS37IR91sWUcg3M6 aYQ5T4HcYJVdkpjbbzjykRS6FUQ hSYNdfK22Co0npStrEs4uILNsLV I0ZCBrmVJwP1LfwG8zDtSy YGKiTRGmI6EzqZDoQOhgR289KHv rUwD7SJClcyMyU1LsXQZluLisIq Q6j5L8Xe1UNDIjPB65KWV6 gVX0SR24UV84F6IhPzrefJBmaQK +PHRhYmxlIHdpZHRoPScxMDAlJy HbdWcjWD5rTc6xCLKoSJKp pOrphSJoGkRwh5uzKOArTKteQL5 nvQzoV8AloZO4TPWxm5l2Lp85H9 4kB7XlzPG+VXHoqFH7iKD4 nV3zFxRwNpX1HJmkJ376IyDowSK pAgnul8nmq0licIx2WqX9ODMvbq FfxSmfSHE4v7VyLi41R26z IHdpZHRoPSIxNSUiIHZhbGlnbj0 qpD1yDn9+NGAapMK6rBT8xP4gVz ByPzJ9BSdeK575BbLdcJYy Mytdl7smz5dgpWe4HpIrJYXlkcK ixZlvLXB8g1SjQt77G3ZhmOwre8 GhZgd4qe55lHXfu7X0hMR6 F6JeSHYkffyteVPvpDtgDP7oIEJ mjdsmWPGovO7bAKMbK6k5BcVbYk X8KKsgP4LnqhS5PAQjhPGw XXfbUKL3L04ho9P6EWLqIDRwKDP 1pTZ3vM8luHythffiyLVqtCqiax GljIlzVApjRXfxO095KASv sHyeGPErxA2gGRFrpNVrxUqcRP0 mRBWmzqknZyIFGv7BLEydTZQIRF kAZIC7X9XgTly7KCRotTgx VU2niHEhLLzzEm6egMgiqYeqKQ3 uMSIioikxSEAuvI0bOHUiaRMdvW tvKB6wUAGhkamvy439XrBu UHV1EZIvqNXqD5PsaH1vEdAmDUT mFTPpW4HsaKZfFXpzB222QPvxId F5KZEoaxPmP7TcDOArjQca AnR6o5V8Qw1iQo4iXV3yZXTjKM7 5BQ85nNPsj7L2yIF6O7WvMKRtfc jmqkogmMW0ZDUuGXLopT49 fFXmFBmuWe7ot2Y9k320XBOcMMO ngG36Dy3uoEmnYNIzuXOKeF0gfu zxm2mitgbiQoZjZWGiBUb7 NJb2RECybVzmZpHjPED3LvI6UZT 5iDVvgC1skFxlcfxpnW9nCwm+Nj WbGXRhnlP9L3PdZst5IWZa uEndAI6uzIGxQTjwFk5qvHijgQi rCX7rNXCfyifgIVDenI4nRWLheA OayAcsDX6bCAFirxpqh358 ErHoZHJ1TOLcuHAlF8EzqW9cKeI cIXNmZUQgS6TvjLLzMDlwV186RF feZsE3ZNUioqKmO1PkNQZa nJuvXpA7t1E8Dk6YPXbiBV38JH8 0vNBfb6K5dOI1M3TjMEXzkpaznv tsgLP5VXHfZTOwpQ50iLWh FVxdZa1zs4M2w609HKLcHSJieA2 3Cn8wdAxnWGEsuRFEaR8ukfxbq5 vjdjgyVqDjOXYvLGh3UQv4 WFNtoFumKzYhIRV8TeR5GIN6oIJ viD2udCgicaqzkK3yCaz+UmVjdX IpyM0nQP38MJ48T1PrKizt dGFibGU+PHRhYmxlIHdpZHRoPSc nGKGnTmJsiEvsBL0xCd9jQMLbYB OmaVpstIYjYpUyn7sbSHNv UHjuVK2vnZdsX2TmlEW5HDUjr3s 4Eh70X25yT7MunNP+FNEloGE8fO N4yH8xIvIaQeT0IQjpJ209 GnClbRIiMtcog5ddi0zfrQc0AuZ hLPCegmIqgOjdKPT4u6BmLi85T7 9sIHdpZHRoPSIyMCUiIHZh kAefos0wdX6qXx4+JNHzvGG7kGT 7eB9hErTgOwJ8WPeyX145DeJbuZ ZnIxqoM03qD6GwdXO+PHRy Wsn4MAZmiYljBZ3aaSHiHAzlGs8 fDFO2KjEdSbZgNDcyO1KyAHBuhg dfyhavmXQ9QECsPBLckR17 Ay9tmDlqDo3zRANfLIM9SCEabIY aT7JpxK5pSkRmAOJtKKZdL3AziX RzPKvbM756FYvfPtQ0SGJa mkYbI1WvIGEkmRztIhG9f4A4Bh6 NoEsofHDbWG6iVlWkHXo6G3EjBz d4QGEwsBxvSK1pxGAjUHxr Uo9bxMkmgAedAB9aVYVlbwqvw52 6DqVzj9inKXGwzNIgDPazYEM0S1 7gl7K8IMUxQMVcEHM7sTE3 iV7meNlllnkiiQVcsUtqtdTpqBu bGHblMVqwJ210GVXnuCbqJyCLBy y2Y1NlIcw6NDHpqBhvYH4v tJMeMDcdRo5zdLocnLpxCB8lBWI jpvxgp320QpCjg3qdSSSfdJZwYU ccAUY4G11pp4E4FECnOKQa NRB2kBK0aB5prPcugauraKQnqSt qcwSymPhbFUveGUwiC315AEStbP voKu6VJja6A8JbNwj8YAZw mKevXE9dbAEtGAunXi1lfXdmoXt jRG0zNTMbsbrem219UyGvx5jjXR PnkHMbICwlTRB1T90jv8V8 MRBqVEXfZXK3lAA2eD8zfRncsey gbGVmdDsgdmVydGljYWwtYWxpZ2 46IHRvcDsnPlBheWVyOjwv dGQ+UA49nl26U3TrMncsBcq8HTE fRRW3wVC6mD9gATAwWRxax0Y8bX C3R4HybhWhrv3bw4vrGOCj ZTog (more content not included)... Normal [facility] Consent for Treatmenton Consent for Treatment [id number]:127 Normal [facility] Physician Orderon 04-05-2021 Physician Order [id number]#1.00CD:127 Normal [facility] Rapid COVID Antigen ([facility])on 04-05-2021 Rapid COV Int NEG Ctl Pass Normal [facility] Comment on above: Performed By: #### 2 [id number] #### [facility] [address] [place] [address] Rapid COV Int POS Ctl Pass Normal [facility] Comment on above: Performed By: #### 2 [id number] #### [facility] [address] [place] [address] SARS-CoV+SARS-CoV-2 (COVID-19) Ag IA.rapid Ql (Resp) Not detected Normal Not Detected [facility] Comment on above: Result Comment: The i[employer]? System for Rapid Detection of SARS-CoV-2 is [...] other viruses or pathogens; and, in the [facility], this test is only authorized for the duration of the declaration that circumstances exist justifying the authorization of emergency use of in vitro diagnostics for detection and/or diagnosis of the virus that causes COVID-19 under Section 564(b)(1) of the Act, 21 U.S.C. ? 360bbb-3(b)(1), unless the authorization is terminated or revoked sooner. Performed By: #### 2 [id number] #### [facility] [address] [place] [address] ADMITTED TO INTENSIVE CARE UNIT FOR CONDITION OF INTEREST:FIND:PT: Unknown Normal [facility] Comment on above: Performed By: #### 2 [id number] #### [facility] [address] [place] [address] EMPLOYED IN A HEALTHCARE SETTING:FIND:PT: Unknown Normal [facility] Comment on above: Performed By: #### 2 [id number] #### [facility] [address] [place] [address] FIRST TEST FOR CONDITION OF INTEREST:FIND:PT: Unknown Normal [facility] Comment on above: Performed By: #### 2 [id number] #### [facility] [address] [place] [address] HAS SYMPTOMS RELATED TO CONDITION OF INTEREST:FIND:PT: Unknown Normal [facility] Comment on above: Performed By: #### 2 [id number] #### [facility] [address] [place] [address] HOSPITALIZED FOR CONDITION OF INTEREST:FIND:PT: Unknown Normal [facility] Comment on above: Performed By: #### 2 [id number] #### [facility] [address] [place] [address] STATUS:FIND:PT: Unknown Normal [facility] Comment on above: Performed By: #### 2 [id number] #### [facility] [address] [id number] RESIDES IN A [facility] CARE SETTING:FIND:PT: Unknown Normal [facility] Comment on above: Performed By: #### 2 [id number] #### [facility] [address] [place] [address] BASIC MET PANELon 12-26-2017 Anion gap 3 molar conc 15 mmol/L Normal 6-18 [facility] Comment on above: Performed By: #### L 500.16929, L500.43255 ####Test performed at: [address] [address] Calcium mass conc 8.2 mg/dL Low 8.5-10.1 [facility] Comment on above: Performed By: #### L 500.60353, L500.16020 ####Test performed at: [address] [address] Chloride molar conc 106 mmol/L Normal 98-[address] [facility] Comment on above: Performed By: #### L 500.37640, L500.96002 ####Test performed at: [address] [address] CO2 molar conc 22 mmol/L Normal 21-32 [facility] Comment on above: Performed By: #### L 500.37043, L500.33769 ####Test performed at: [address] [address] Creatinine mass conc 0.864 mg/dL Normal 0.700-1.300 [facility] Comment on above: Performed By: #### L 500.64804, L500.42127 ####Test performed at: [address] [address] Glucose mass conc 204 mg/dL High 74-106 [facility] Comment on above: Performed By: #### L 500.44340, L500.22227 ####Test performed at: [place] [id number] OSM 294 mosm/kg Normal 270-300 [facility] Comment on above: Performed By: #### L 500.65902, L500.26250 ####Test performed at: [place] [id number] Potassium molar conc 3.8 mmol/L Normal 3.5-5.1 [facility] Comment on above: Performed By: #### L 500.40015, L500.85134 ####Test performed at: [place] [id number] Sodium molar conc 139 mmol/L Normal 136-145 [facility] Comment on above: Performed By: #### L 500.53263, L500.69810 ####Test performed at: [place] [id number] Urea nitrogen mass conc 13 mg/dL Normal 7-18 [facility] Comment on above: Performed By: #### L 500.61283, L500.93336 ####Test performed at: [place] [address] CONSULTATION REPORTon 2017 CONSULTATION REPORT NAME: SOSA AGUILAR [facility]#: [id number]: Aleks Sharma, MDDATE OF CONSULTATION: 12/26/2017CONSULTATIONRICK Billy FOR CONSULTATION: Urinary retention.BRIEF CLINICAL SUMMARY: [...] male who is awake, alert, oriented, in nodistress.[facility] PT NAME: JORDAN AGUILAR#: [id number] [place] [address] ACCT: [id number]: 59CONSULTATIONVITAL SIGNS: He is currently afebrile with [...] to see this patient in consultation. KODY YEUNG/PATRICK/[id number] : 12/26/2017 17:36:21 CC: Aleks Sharma MDFax: E/S: Aleks Sharma MD12/30/17 0918Electronically SignedPR[facility] NAME: JORDAN AGUILAR#: [id number] [place] [address] ACCT: [id number]: [address] [facility] GFR ESTIMATEon 12-26-2017 IF AMER > 60 Normal > 60 [facility] Comment on above: Result Comment: eGFR (Estimated GFR) Units of measure:mL/min/1.73 meters sq.*CALCULATION REVISED 01/20/2015;IDMS-traceable MDRD equationeGFR is derived from the reexpressed MDRD Study equationusing the following parameters: serum creatinine, age,gender and race. An eGFR<60 mL/min/1.73m2 for >3 monthsis consistent with chronic kidney disease. Refer to KDOQIguidelines for clinical interpretation. Performed By: #### L 500.81678, L500.36865 ####Test performed at: [place] [address] IF non-AFR AMER > 60 Normal > 60 [facility] Comment on above: Performed By: #### L 500.01600, L500.22847 ####Test performed at: [place] [address] HGB AND HCTon 12-26-2017 Hematocrit Auto Volume Fraction (Bld) 31.8 % Low 39.0-55.0 [facility] Comment on above: Performed By: #### L 200.80610 ####Test performed at: [place] [address] Hemoglobin mass conc (Bld) 10.3 g/dL Low 14.0-16.5 [facility] Comment on above: Result Comment: Delt a: 12.6 on 12/19/17-1437PATIENT RECEIVED IV FLUIDS Performed By: #### L 200.27459 ####Test performed at: [place] [address] OPERATIVE REPORTon 8 OPERATIVE REPORT NAME: SOSA AGUILAR [facility]#: [id number]: Aleks Jacobson, MDDATE OF SURGERY: 12/25/2017OPERATIVE REPORTPREOPERATIVE [...] in AP and lateral planes. The right I3yvngmd was cleared of soft tissue and directly [...] stab incision. The fascia, subcutaneous tissues, and[facility] NAME: JORDAN AGUILAR#: [id number] [place] [address] ACCT: [id number]: 59OPERATIVE REPORTskin closed in the usual manner. Dressings were applied. The patient wasturned supine, awakened, taken to recovery room in excellent condition. Therewere no complications. TATUM DILLON/MODL/[id number] E/S: Aleks Jacobson MD01/04/18 1520Electronically SignedPR[facility] NAME: SANDRA AGUILAR#: [id number] [place] [address] ACCT: [id number]: 59OPERATIVE REPORT Normal [facility] LUMBAR SPINE 2 OR 3 VIEWSon 12-22-2017 LUMBAR SPINE 2 OR 3 VIEWS Exam: Fluoroscopy lumbar spineClinical History: RIGHT L5 LAMINOTOMY, REVISION RIGHT L5 DISCECTOMYComparison: None.Findings: Intraoperative fluoroscopic images demonstrate surgicalinstruments posterior L5-S1.Impression:As aboveDictated: 12/26/17 0958REPORT SIGNATURE ON FILE12/26/17(0999) Reported By: SPENCER POTTSSigned By: SPENCER POTTS Normal [facility] BASIC MET PANELon 12-19-2017 Anion gap 3 molar conc 12 mmol/L Normal 09-18 [facility] Comment on above: Order Comment: CBN: YESCampus: MAIN Performed By: #### L 500.06784, L500.71181 ####Test performed at: [place] [address] Calcium mass conc 8.7 mg/dL Normal 8.5-10.1 [facility] Comment on above: Order Comment: CBN: YESCampus: MAIN Performed By: #### L 500.34830, L500.31709 ####Test performed at: [address] [address] Chloride molar conc 107 mmol/L Normal 98-[address] [facility] Comment on above: Order Comment: CBN: YESCampus: MAIN Performed By: #### L 500.70158, L500.00848 ####Test performed at: [address] [address] CO2 molar conc 26 mmol/L Normal 21-32 [facility] Comment on above: Order Comment: CBN: YESCampus: MAIN Performed By: #### L 500.96514, L500.71855 ####Test performed at: [address] [address] Creatinine mass conc 0.747 mg/dL Normal 0.700-1.300 [facility] Comment on above: Order Comment: CBN: YESCampus: MAIN Performed By: #### L 500.99434, L500.53651 ####Test performed at: [address] [address] Glucose mass conc 82 mg/dL Normal 74-106 [facility] Comment on above: Order Comment: CBN: YESCampus: MAIN Performed By: #### L 500.12669, L500.88254 ####Test performed at: [address] [address] OSM 290 mosm/kg Normal 270-300 [facility] Comment on above: Order Comment: CBN: YESCampus: MAIN Performed By: #### L 500.27138, L500.94470 ####Test performed at: [address] [address] Potassium molar conc 4.2 mmol/L Normal 3.5-5.1 [facility] Comment on above: Order Comment: CBN: YESCampus: MAIN Performed By: #### L 500.74199, L500.61062 ####Test performed at: [address] [address] Sodium molar conc 141 mmol/L Normal 136-145 [facility] Comment on above: Order Comment: CBN: YESCampus: MAIN Performed By: #### L 500.30209, L500.57486 ####Test performed at: [address] [address] Urea nitrogen mass conc 9 mg/dL Normal 7-18 [facility] Comment on above: Order Comment: CBN: YESCampus: MAIN Performed By: #### L 500.75703, L500.41896 ####Test performed at: [address] [address] CBC W/DIFFon 12-19-2017 BASO ABS 0.0 K/uL Normal 0.0-0.2 [facility] Comment on above: Order Comment: CBN: YESCampus: MAIN Performed By: #### L 200.77746 ####Test performed at: [address] [address] Basophils/100 WBC Auto (Bld) 0.8 % Normal [facility] Comment on above: Order Comment: CBN: YESCampus: MAIN Performed By: #### L 200.12911 ####Test performed at: [address] [address] EOS ABS 0.1 K/uL Normal 0.0-0.5 [facility] Comment on above: Order Comment: CBN: YESCampus: MAIN Performed By: #### L 200.92842 ####Test performed at: [address] [address] Eosinophils/100 WBC Auto (Bld) 2.4 % Normal [facility] Comment on above: Order Comment: CBN: YESCampus: MAIN Performed By: #### L 200.14242 ####Test performed at: [address] [address] IG % 0.4 % Normal [facility] Comment on above: Order Comment: CBN: YESCampus: MAIN Performed By: #### L 200.22433 ####Test performed at: [address] [address] IG ABS 0.02 K/uL Normal 0-0.05 [facility] Comment on above: Order Comment: CBN: YESCampus: MAIN Performed By: #### L 200.27382 ####Test performed at: [address] [address] Lymphocytes Auto #/vol (Bld) 1.3 10*3/uL Normal 1.2-3.5 [facility] Comment on above: Order Comment: CBN: YESCampus: MAIN Performed By: #### L 200.38250 ####Test performed at: [address] [address] Lymphocytes/100 WBC Auto (Bld) 26.9 % Normal [facility] Comment on above: Order Comment: CBN: YESCampus: MAIN Performed By: #### L 200.01428 ####Test performed at: [address] [address] MONO ABS 0.3 K/uL Normal 0.0-1.0 [facility] Comment on above: Order Comment: CBN: YESCampus: MAIN Performed By: #### L 200.84251 ####Test performed at: [address] [address] Monocytes/100 WBC Auto (Bld) 6.9 % Normal [facility] Comment on above: Order Comment: CBN: YESCampus: MAIN Performed By: #### L 200.19006 ####Test performed at: [address] [address] NEUTROPHIL ABS 3.1 K/uL Normal 1.4-6.6 [facility] Comment on above: Order Comment: CBN: YESCampus: MAIN Performed By: #### L 200.32172 ####Test performed at: [address] [address] Neutrophils/100 WBC Auto (Bld) 62.6 % Normal [facility] Comment on above: Order Comment: CBN: YESCampus: MAIN Performed By: #### L 200.17689 ####Test performed at: [place] [id number] Erythrocyte distribution width Auto Ratio (RBC) 14.6 % High 11.5-14.5 [facility] Comment on above: Order Comment: CBN: YESCampus: MAIN Performed By: #### L 200.21259 ####Test performed at: [place] [address] Hematocrit Auto Volume Fraction (Bld) 39.1 % Normal 39.0-55.0 [facility] Comment on above: Order Comment: CBN: YESCampus: MAIN Performed By: #### L 200.67409 ####Test performed at: [place] [address] Hemoglobin mass conc (Bld) 12.6 g/dL Low 14.0-16.5 [facility] Comment on above: Order Comment: CBN: YESCampus: MAIN Performed By: #### L 200.11905 ####Test performed at: [place] [address] MCH Auto Entitic mass (RBC) 29.9 pg Normal 25.4-34.6 [facility] Comment on above: Order Comment: CBN: YESCampus: MAIN Performed By: #### L 200.42599 ####Test performed at: [place] [address] MCHC Auto mass conc (RBC) 32.2 g/dL Normal 31.5-36.5 [facility] Comment on above: Order Comment: CBN: YESCampus: MAIN Performed By: #### L 200.94619 ####Test performed at: [place] [id number] MCV Auto Entitic volume (RBC) 92.9 fL Normal 80.0-100.0 [facility] Comment on above: Order Comment: CBN: YESCampus: MAIN Performed By: #### L 200.86681 ####Test performed at: [address] [address] Nucleated RBC #/vol (Bld) 0.000 10*3/uL Normal 0-0.012 [facility] Comment on above: Order Comment: CBN: YESCampus: MAIN Performed By: #### L 200.56276 ####Test performed at: [place] [id number] Nucleated RBC/100 WBC Ratio (Bld) 0.0 /100 WBC Normal 0-0.2 [facility] Comment on above: Order Comment: CBN: YESCampus: MAIN Performed By: #### L [id number] ####Test performed at: [address] [address] Platelet mean volume Auto Entitic volume (Bld) 10.4 fL Normal 8.7-12.4 [facility] Comment on above: Order Comment: CBN: YESCampus: MAIN Performed By: #### L [id number] ####Test performed at: [place] [id number] Platelets Auto #/vol (Bld) 126 10*3/uL Low 140-440 [facility] Comment on above: Order Comment: CBN: YESCampus: MAIN Performed By: #### L [id number] ####Test performed at: [address] [address] RBC Auto #/vol (Bld) 4.21 10*6/uL Normal 3.5-5.5 [facility] Comment on above: Order Comment: CBN: YESCampus: MAIN Performed By: #### L [id number] ####Test performed at: [address] [address] WBC Auto #/vol (Bld) 4.9 10*3/uL Normal 3.9-11.0 [facility] Comment on above: Order Comment: CBN: YESCampus: MAIN Performed By: #### L [id number] ####Test performed at: [place] [address] CHEST PA/AP & LATERAL OR 2 V WSon 12-19-2017 CHEST PA/AP & LATERAL OR 2 VWS STUDY:CHEST PA/AP LATERAL OR 2 VWS; 12/19/2017 2:57 pmINDICATION:HISTOPLASMOSIS .COMPARISON:None. ERING CLINICIAN:Aleks Retana:CARDIOMEDIAST INAL SILHOUETTE:Cardiomediastina l silhouette is normal in size and configuration.LUNGS:Lungs are clear. Postsurgical changes in the right lung. Small leftpleural effusion.ABDOMEN:No remarkable upper abdominal findings.BONES:No acute osseous changes.IMPRESSION:Small left pleural effusion. Normal [facility] GFR ESTIMATEon 12-19-2017 IF AMER > 60 Normal > 60 [facility] Comment on above: Order Comment: CBN: YESCampus: MAIN Result Comment: eGFR (Estimated GFR) Units of measure:mL/min/1.73 meters sq.*CALCULATION REVISED 01/20/2015;IDMS-traceable MDRD equationeGFR is derived from the reexpressed MDRD Study equationusing the following parameters: serum creatinine, age,gender and race. An eGFR<60 mL/min/1.73m2 for >3 monthsis consistent with chronic kidney disease. Refer to KDOQIguidelines for clinical interpretation. Performed By: #### L [id number], L500.42359 ####Test performed at: [place] [address] IF non-AFR AMER > 60 Normal > 60 [facility] Comment on above: Order Comment: CBN: YESCampus: MAIN Performed By: #### L 500.59354, L500.42025 ####Test performed at: [place] [address] TSPATon 12-19-2017 BLOOD TYPE Positive Normal [facility] Comment on above: Order Comment: CBN: YESCampus: MAINTransfusion Status: CONSERVATIONBlood Bank service requested: TYPE AND SCREENSpecimen Comment: SURG 12/25 Performed By: #### B 100.0201 ####Test performed at: [place] [address] LUMB SP COMP W FLEX/EXT 6 VW Son 10-18-2017 LUMB SP COMP W FLEX/EXT 6 VWS STUDY:LUMB SP COMP W FLEX/EXT 6 VWS ; 10/18/2017 10:59 amINDICATION:. Back painCOMPARISON:None.ACCESSI ON NUMBER(S):[id number] ERING CLINICIAN:Lavell Mahoney:No fracture subluxation of the lumbar spine. The vertebral bodyheights are maintained. Mild multilevel degenerative disc height losswith scattered small endplate osteophytes. Lower lumbar predominantfacet arthropathy. No spondylolisthesis or spondylolysis. Noinstability on flexion or extension.Atherosclerosis is present.IMPRESSION:Degenera tive changes of the lumbar spine without instability. Normal [facility] LUMB SP COMP W FLEX/EXT 6 VW Son 09-19-2017 LUMB SP COMP W FLEX/EXT 6 VWS STUDY:LUMB SP COMP W FLEX/EXT 6 VWS ; 09/19/2017 12:46 pmINDICATION:. Back painCOMPARISON:None.ACCESSI ON NUMBER(S):[id number] ERING CLINICIAN:Lavell Mahoney:No lumbar spine fracture subluxation. Mild multilevel degenerativedisc height loss. No spondylolisthesis. No instability on flexion orextension. Lower lumbar facet arthropathy. No pars defects.Atherosclerosis is present.IMPRESSION:Mild degenerative changes of the lumbar spine without instability. Normal [facility] No Panel Information [facility] Vital Signs Date Time Vital Sign Value Performing Clinician Facility 12-09-2022 [id number] Body height 185.4 cm Jane Hernandez PA-C Work Phone: [facility] 12-09-2022 [id number] Body weight 91.17 kg Jane David PA-C Work Phone: [facility] 12-09-2022 13:31-0400 Diastolic blood pressure 76 mm[Hg] Jane David PA-C Work Phone: [facility] 12-09-2022 13:31-0400 Heart rate 64 /min Jane David PA-C Work Phone: [facility] 12-09-2022 13:31-0400 Respiratory rate 16 /min Jane David PA-C Work Phone: [facility] 12-09-2022 13:31-0400 SaO2% (BldA) [Mass fraction] 99 % Jane Winston PA-C Work Phone: [facility] 12-09-2022 13:31-0400 Systolic blood pressure 139 mm[Hg] Jane Winston PA-C Work Phone: [facility] 11-01-2022 08:40-0400 Body height Tiffany Bucio Other [facility] Other 11-01-2022 08:40-0400 Body mass index (BMI) [Ratio] 25.25 kg/m2 Tiffany Bucio Other [facility] Other 11-01-2022 08:40-0400 Body weight 91.63 kg Tiffany Bucio Other [facility] Other 11-01-2022 08:40-0400 Diastolic blood pressure 70 mm[Hg] Tiffany Bucio Other [facility] Other 11-01-2022 08:40-0400 Systolic blood pressure 102 mm[Hg] Tiffany Bucio Other [facility] Other 08-04-2022 10:24-0400 Body height 185.4 cm Kulwinder Landry MD Work Phone: [facility] 08-04-2022 10:24-0400 Body temperature 98.01 [degF] Kulwinder Landry MD Work Phone: [facility] 08-04-2022 10:24-0400 Body weight 93.44 kg Kulwinder Landry MD Work Phone: [facility] 08-04-2022 10:24-0400 Diastolic blood pressure 67 mm[Hg] Kulwinder Landry MD Work Phone: [facility] 08-04-2022 10:24-0400 Heart rate 73 /min Kulwinder Landry MD Work Phone: [facility] 08-04-2022 10:24-0400 Systolic blood pressure 134 mm[Hg] Kulwinder Landry MD Work Phone: [facility] 08-03-2022 12:58-0400 Body height 188 cm Diane Vallecillo POLICE WORKER.MANAGER OF TRAINING Work Phone: [facility] 08-03-2022 12:58-0400 Body temperature 97.9 [degF] Diane Vallecillo POLICE WORKER.MANAGER OF TRAINING Work Phone: [facility] 08-03-2022 12:58-0400 Body weight 96.16 kg Diane Vallecillo POLICE WORKER.MANAGER OF TRAINING Work Phone: [facility] 08-03-2022 12:58-0400 Diastolic blood pressure 67 mm[Hg] Diane Vallecillo POLICE WORKER.MANAGER OF TRAINING Work Phone: [facility] 08-03-2022 12:58-0400 Heart rate 72 /min Diane Vallecillo POLICE WORKER.MANAGER OF TRAINING Work Phone: [facility] 08-03-2022 12:58-0400 Respiratory rate 18 /min Diane Vallecillo POLICE WORKER.MANAGER OF TRAINING Work Phone: [facility] 08-03-2022 12:58-0400 SaO2% (BldA) [Mass fraction] 96 % Diane Vallecillo POLICE WORKER.MANAGER OF TRAINING Work Phone: [facility] 05-03-2023 12:58-0400 Systolic blood pressure 140 mm[Hg] Diane Vallecillo APRN.CNP Work Phone: [facility] 07-11-2022 10:10-0400 Body weight 93.89 kg Sharon Castro MD Work Phone: [facility] 07-11-2022 10:10-0400 Diastolic blood pressure 66 mm[Hg] Sharon Castro MD Work Phone: [facility] 07-11-2022 10:10-0400 Heart rate 68 /min Sharon aCstro MD Work Phone: [facility] 07-11-2022 10:10-0400 Systolic blood pressure 120 mm[Hg] Sharon Castro MD Work Phone: [facility] 06-15-2022 13:49-0400 Body height 188 cm Murali Jordan MD Work Phone: [facility] 06-15-2022 13:49-0400 Body temperature 97.39 [degF] Murali Jordan MD Work Phone: [facility] 06-15-2022 13:49-0400 Body weight 93.44 kg Murali Jordan MD Work Phone: [facility] 06-15-2022 13:49-0400 Diastolic blood pressure 56 mm[Hg] Murali Jordan MD Work Phone: [facility] 06-15-2022 13:49-0400 Heart rate 74 /min Murali Jordan MD Work Phone: [facility] 06-15-2022 13:49-0400 Respiratory rate 18 /min Murali Jordan MD Work Phone: [facility] 06-15-2022 13:49-0400 SaO2% (BldA) [Mass fraction] 97 % Murali Jordan MD Work Phone: [facility] 06-15-2022 13:49-0400 Systolic blood pressure 128 mm[Hg] Murali Jordan MD Work Phone: [facility] 05-31-2022 13:23-0500 Body weight 92.08 kg Faustina Leahy POLICE WORKER.MANAGER OF TRAINING Work Phone: [facility] 05-31-2022 13:23-0500 Diastolic blood pressure 56 mm[Hg] Faustina Leahy POLICE WORKER.MANAGER OF TRAINING Work Phone: [facility] 05-31-2022 13:23-0500 Heart rate 77 /min Faustina Leahy POLICE WORKER.MANAGER OF TRAINING Work Phone: [facility] 05-31-2022 13:23-0500 Respiratory rate 18 /min Faustina Leahy POLICE WORKER.MANAGER OF TRAINING Work Phone: [facility] 05-31-2022 13:23-0500 Systolic blood pressure 116 mm[Hg] Faustina Leahy POLICE WORKER.MANAGER OF TRAINING Work Phone: [facility] 05-27-2022 11:53-0500 Diastolic blood pressure 59 mm[Hg] Sharon Castro MD Work Phone: [facility] 05-27-2022 11:53-0500 Heart rate 78 /min Sharon Castro MD Work Phone: [facility] 05-27-2022 11:53-0500 Respiratory rate 16 /min Sharon Castro MD Work Phone: [facility] 05-27-2022 11:53-0500 Systolic blood pressure 108 mm[Hg] Sharon Castro MD Work Phone: [facility] 05-25-2022 12:47-0500 Body height 186.7 cm Marlo Alvarado MD Work Phone: [facility] 05-25-2022 12:47-0500 Body temperature 98.91 [degF] Marlo Alvarado MD Work Phone: [facility] 05-25-2022 12:47-0500 Body weight 90.27 kg Marlo Alvarado MD Work Phone: [facility] 05-25-2022 12:47-0500 Diastolic blood pressure 57 mm[Hg] Marlo Alvarado MD Work Phone: [facility] 05-25-2022 12:47-0500 Heart rate 80 /min Marlo Alvarado MD Work Phone: [facility] 05-25-2022 12:47-0500 Respiratory rate 18 /min Marlo Alvarado MD Work Phone: [facility] 05-25-2022 12:47-0500 SaO2% (BldA) [Mass fraction] 99 % Marlo Alvarado MD Work Phone: [facility] 05-25-2022 12:47-0500 Systolic blood pressure 100 mm[Hg] Marlo Alvarado MD Work Phone: [facility] 05-18-2022 14:19-0500 Body height 186.7 cm Diane Vallecillo POLICE WORKER.MANAGER OF TRAINING Work Phone: [facility] 05-18-2022 14:19-0500 Body temperature 97 [degF] Diane Vallecillo POLICE WORKER.MANAGER OF TRAINING Work Phone: [facility] 05-18-2022 14:19-0500 Body weight 90.27 kg Diane Vallecillo POLICE WORKER.MANAGER OF TRAINING Work Phone: [facility] 05-18-2022 14:19-0500 Diastolic blood pressure 60 mm[Hg] Diane Vallecillo POLICE WORKER.MANAGER OF TRAINING Work Phone: [facility] 05-18-2022 14:19-0500 Heart rate 78 /min Diane Vallecillo POLICE WORKER.MANAGER OF TRAINING Work Phone: [facility] 05-18-2022 14:19-0500 Respiratory rate 18 /min Diane Vallecillo POLICE WORKER.MANAGER OF TRAINING Work Phone: [facility] 05-18-2022 14:19-0500 SaO2% (BldA) [Mass fraction] 99 % Diane Vallecillo POLICE WORKER.MANAGER OF TRAINING Work Phone: [facility] 05-18-2022 14:19-0500 Systolic blood pressure 100 mm[Hg] Diane Vallecillo POLICE WORKER.MANAGER OF TRAINING Work Phone: [facility] 04-22-2022 14:30-0500 Body temperature 97.4 [degF] MD Jordan Azar Work Phone: [facility] 04-22-2022 14:30-0500 Diastolic blood pressure 64 mm[Hg] MD Jordan Azar Work Phone: [facility] 04-22-2022 14:30-0500 Heart rate 69 /min MD Jordan Azar Work Phone: [facility] 04-22-2022 14:30-0500 Respiratory rate 18 /min MD Jordan Azar Work Phone: [facility] 04-22-2022 14:30-0500 SaO2% (BldA) [Mass fraction] 98 % MD Jordan Azar Work Phone: [facility] 04-22-2022 14:30-0500 Systolic blood pressure 108 mm[Hg] MD Jordan Azar Work Phone: [facility] 04-22-2022 12:10-0500 Body height 185.42 cm MD Jordan Azar Work Phone: [facility] 04-22-2022 12:10-0500 Body weight 102.05 kg MD Jordan Azar Work Phone: [facility] 04-15-2022 08:52-0500 Body temperature 96.91 [degF] Lakshmi Cr DO Work Phone: [facility] 04-15-2022 08:52-0500 Body weight 102.06 kg Lakshmi Cr DO Work Phone: [facility] 04-15-2022 08:52-0500 Diastolic blood pressure 81 mm[Hg] Lakshmi Cr DO Work Phone: [facility] 04-15-2022 08:52-0500 Heart rate 86 /min Lakshmi Cr DO Work Phone: [facility] 04-15-2022 08:52-0500 Respiratory rate 16 /min Lakshmi Cr DO Work Phone: [facility] 04-15-2022 08:52-0500 SaO2% (BldA) [Mass fraction] 98 % Lakshmi Cr DO Work Phone: [facility] 04-15-2022 08:52-0500 Systolic blood pressure 146 mm[Hg] Lakshmi Cr DO Work Phone: [facility] 04-13-2022 08:33-0500 Body height 185.4 cm Dayna Reyes MD Work Phone: [facility] 04-13-2022 08:33-0500 Body temperature 98.71 [degF] Dayna Reyes MD Work Phone: [facility] 04-13-2022 08:33-0500 Body weight 102.24 kg Dayna Reyes MD Work Phone: [facility] 04-13-2022 08:33-0500 Diastolic blood pressure 73 mm[Hg] Dayna Reyes MD Work Phone: [facility] 04-13-2022 08:33-0500 Heart rate 88 /min Dayna Reyes MD Work Phone: [facility] 04-13-2022 08:33-0500 SaO2% (BldA) [Mass fraction] 97 % Dayna Reyes MD Work Phone: [facility] 04-13-2022 08:33-0500 Systolic blood pressure 148 mm[Hg] Dayna Reyes MD Work Phone: [facility] 03-22-2022 09:46-0500 Body weight 94.12 kg [facility] [address] 03-22-2022 09:30-0500 Diastolic blood pressure 69 mm[Hg] Hepatology Q3 [facility] 03-22-2022 09:30-0500 Heart rate 74 /min [facility] Q3 [facility] 03-22-2022 09:30-0500 SaO2% (BldA) [Mass fraction] 97 % [facility]atology Q3 [facility] 03-22-2022 09:30-0500 Systolic blood pressure 121 mm[Hg] Hepatology Q3 [facility] 03-22-2022 09:20-0500 Respiratory rate 16 /min Hepatology Q3 [facility] 03-22-2022 08:55-0500 Body height 185.4 cm Hepatology Q3 [facility] 03-22-2022 08:55-0500 Body temperature 98.2 [degF] Hepatology Q3 [facility] 03-17-2022 13:50-0500 Body height 185.4 cm Kulwinder Landry MD Work Phone: [facility] 03-17-2022 13:50-0500 Body temperature 95.79 [degF] Kulwinder Landry MD Work Phone: [facility] 03-17-2022 13:50-0500 Body weight 100.25 kg Kulwinder Landry MD Work Phone: [facility] 03-17-2022 13:50-0500 Diastolic blood pressure 77 mm[Hg] Kulwinder Landry MD Work Phone: [facility] 03-17-2022 13:50-0500 Heart rate 80 /min Kulwinder Landry MD Work Phone: [facility] 03-17-2022 13:50-0500 Respiratory rate 12 /min Kulwinder Landry MD Work Phone: [facility] 03-17-2022 13:50-0500 Systolic blood pressure 141 mm[Hg] Kulwinder Landry MD Work Phone: [facility] 03-10-2022 10:45-0500 Body height 182.9 cm Kulwinder Landry MD Work Phone: [facility] 03-10-2022 10:45-0500 Body temperature 97 [degF] Kulwinder Landry MD Work Phone: [facility] 03-10-2022 10:45-0500 Body weight 96.62 kg Kulwinder Landry MD Work Phone: [facility] 03-10-2022 10:45-0500 Diastolic blood pressure 69 mm[Hg] Kulwinder Landry MD Work Phone: [facility] 03-10-2022 10:45-0500 Heart rate 90 /min Kulwinder Landry MD Work Phone: [facility] 03-10-2022 10:45-0500 Respiratory rate 12 /min Kulwinder Landry MD Work Phone: [facility] 03-10-2022 10:45-0500 Systolic blood pressure 134 mm[Hg] Kulwinder Landry MD Work Phone: [facility] 02-11-2022 12:56-0500 Body height 185.4 cm Lakshmi Cr DO Work Phone: [facility] 02-11-2022 12:56-0500 Body temperature 97.3 [degF] Lakshmi Cr DO Work Phone: [facility] 02-11-2022 12:56-0500 Body weight 102 kg Lakshmi Cr DO Work Phone: [facility] 02-11-2022 12:56-0500 Diastolic blood pressure 71 mm[Hg] Lakshmi Cr DO Work Phone: [facility] 02-11-2022 12:56-0500 Heart rate 76 /min Lakshmi Cr DO Work Phone: [facility] 02-11-2022 12:56-0500 Respiratory rate 18 /min Lakshmi Cr DO Work Phone: [facility] 02-11-2022 12:56-0500 SaO2% (BldA) [Mass fraction] 98 % Lakshmi Cr DO Work Phone: [facility] 02-11-2022 12:56-0500 Systolic blood pressure 123 mm[Hg] Lakshmi Cr DO Work Phone: [facility] 02-10-2022 14:06-0500 Body height 185.4 cm Pac 6 Work Phone: [facility] 02-10-2022 14:06-0500 Body temperature 98.1 [degF] Pacc 6 Work Phone: [facility] 02-10-2022 14:06-0500 Body weight 102.42 kg Pacc 6 Work Phone: [facility] 02-10-2022 14:06-0500 Diastolic blood pressure 73 mm[Hg] Pacc 6 Work Phone: [facility] 02-10-2022 14:06-0500 Heart rate 70 /min Pacc 6 Work Phone: [facility] 02-10-2022 14:06-0500 Respiratory rate 18 /min Pacc 6 Work Phone: [facility] 02-10-2022 14:06-0500 SaO2% (BldA) [Mass fraction] 97 % Pacc 6 Work Phone: [facility] 02-10-2022 14:06-0500 Systolic blood pressure 126 mm[Hg] Pacc 6 Work Phone: [facility] 02-10-2022 12:39-0500 Body height 185.4 cm Kulwinder Landry MD Work Phone: [facility] 02-10-2022 12:39-0500 Body temperature 97.5 [degF] Kulwinder Landry MD Work Phone: [facility] 02-10-2022 12:39-0500 Body weight 99.34 kg Kulwinder Landry MD Work Phone: [facility] 02-10-2022 12:39-0500 Diastolic blood pressure 60 mm[Hg] Kulwinder Landry MD Work Phone: [facility] 02-10-2022 12:39-0500 Heart rate 73 /min Kulwinder Landry MD Work Phone: [facility] 02-10-2022 12:39-0500 Systolic blood pressure 128 mm[Hg] Kulwinder Landry MD Work Phone: [facility] 01-13-2022 09:34-0400 Body height 185.4 cm Lakshmi Cr DO Work Phone: [facility] 01-13-2022 09:34-0400 Body temperature 98.6 [degF] Lakshmi Cr DO Work Phone: [facility] 01-13-2022 09:34-0400 Body weight 97.52 kg Lakshmi Cr DO Work Phone: [facility] 01-13-2022 09:34-0400 Diastolic blood pressure 69 mm[Hg] Lakshmi Cr DO Work Phone: [facility] 01-13-2022 09:34-0400 Heart rate 73 /min Lakshmi Cr DO Work Phone: [facility] 01-13-2022 09:34-0400 Respiratory rate 18 /min Lakshmi Cr DO Work Phone: [facility] 01-13-2022 09:34-0400 SaO2% (BldA) [Mass fraction] 98 % Lakshmi Cr DO Work Phone: [facility] 01-13-2022 09:34-0400 Systolic blood pressure 130 mm[Hg] Lakshmi Cr DO Work Phone: [facility] 12-08-2021 13:05-0400 Body height 187 cm Ivette Mejia MD Work Phone: [facility] 12-08-2021 13:05-0400 Body temperature 98.1 [degF] Ivette Mejia MD Work Phone: [facility] 12-08-2021 13:05-0400 Body weight 95.71 kg Ivette Mejia MD Work Phone: [facility] 12-08-2021 13:05-0400 Diastolic blood pressure 76 mm[Hg] Ivette Mejia MD Work Phone: [facility] 12-08-2021 13:05-0400 Heart rate 77 /min Ivette Mejia MD Work Phone: [facility] 12-08-2021 13:05-0400 Respiratory rate 18 /min Ivette Mejia MD Work Phone: [facility] 12-08-2021 13:05-0400 SaO2% (BldA) [Mass fraction] 97 % Ivette Mejia MD Work Phone: [facility] 12-08-2021 13:05-0400 Systolic blood pressure 130 mm[Hg] Ivette Mejia MD Work Phone: [facility] 11-11-2021 09:20-0400 Body height 185.4 cm Pacc 2 Work Phone: [facility] 11-11-2021 09:20-0400 Body temperature 97.11 [degF] Pacc 2 Work Phone: [facility] 11-11-2021 09:20-0400 Body weight 98.43 kg Pacc 2 Work Phone: [facility] 11-11-2021 09:20-0400 Diastolic blood pressure 79 mm[Hg] Pacc 2 Work Phone: [facility] 11-11-2021 09:20-0400 Heart rate 74 /min Pacc 2 Work Phone: [facility] 11-11-2021 09:20-0400 Respiratory rate 16 /min Pacc 2 Work Phone: [facility] 11-11-2021 09:20-0400 SaO2% (BldA) [Mass fraction] 97 % Pacc 2 Work Phone: [facility] 11-11-2021 09:20-0400 Systolic blood pressure 104 mm[Hg] Pacc 2 Work Phone: [facility] 10-07-2021 13:27-0400 Body height 185.4 cm Kulwinder Landry MD Work Phone: [facility] 10-07-2021 13:27-0400 Body weight 100.7 kg Kulwinder Landry MD Work Phone: [facility] 10-07-2021 13:27-0400 Diastolic blood pressure 64 mm[Hg] Kulwinder Landry MD Work Phone: [facility] 10-07-2021 13:27-0400 Heart rate 66 /min Kulwinder Landry MD Work Phone: [facility] 10-07-2021 13:27-0400 Systolic blood pressure 107 mm[Hg] Kulwinder Landry MD Work Phone: [facility] 10-07-2021 10:25-0400 Body height 187.1 cm Lorna Frazier MD Work Phone: [facility] 10-07-2021 10:25-0400 Body weight 100.7 kg Lorna Frazier MD Work Phone: [facility] 10-07-2021 10:25-0400 Diastolic blood pressure 64 mm[Hg] Lorna Frazier MD Work Phone: [facility] 10-07-2021 10:25-0400 Heart rate 66 /min Lorna Frazier MD Work Phone: [facility] 10-07-2021 10:25-0400 Systolic blood pressure 107 mm[Hg] Lorna Frazier MD Work Phone: [facility] 09-17-2021 09:45-0400 Body height 185.4 cm Lucy [place] PA-C Work Phone: [facility] 09-17-2021 09:45-0400 Body temperature 97.11 [degF] Lucy Monie PA-C Work Phone: [facility] 09-17-2021 09:45-0400 Body weight 104.51 kg Lucy [place] PA-C Work Phone: [facility] 09-17-2021 09:45-0400 Diastolic blood pressure 73 mm[Hg] Lucy Monie PA-C Work Phone: [facility] 09-17-2021 09:45-0400 Heart rate 68 /min Lucy Monie PA-C Work Phone: [facility] 09-17-2021 09:45-0400 SaO2% (BldA) [Mass fraction] 98 % Lucy [place] PA-C Work Phone: [facility] 09-17-2021 09:45-0400 Systolic blood pressure 136 mm[Hg] Lucy Lomax PA-C Work Phone: [facility] 07-07-2021 11:00-0400 Body height 185.4 cm Dayna Reyes MD Work Phone: [facility] 07-07-2021 11:00-0400 Body temperature 97 [degF] Dayna Reyes MD Work Phone: [facility] 07-07-2021 11:00-0400 Body weight 108.05 kg Dayna Reyes MD Work Phone: [facility] 07-07-2021 11:00-0400 Diastolic blood pressure 87 mm[Hg] Dayna Reyes MD Work Phone: [facility] 07-07-2021 11:00-0400 Heart rate 92 /min Dayna Reyes MD Work Phone: [facility] 07-07-2021 11:00-0400 SaO2% (BldA) [Mass fraction] 97 % Dayna Reyes MD Work Phone: [facility] 07-07-2021 11:00-0400 Systolic blood pressure 148 mm[Hg] Dayna Reyes MD Work Phone: [facility] Encounters Encounter Date Encounter Type Care Provider Facility Start: 11-22-2024 End: 11-22-2024 Transcribe Orders Jordan Azar MD Work Phone: Referring Physician Comment on above: Inguinal hernia with out obstruction or gangrene, recurrence not specified, unspecified laterality (Primary Dx) Start: 11-18-2024 End: 11-18-2024 ambulatory JORDAN AZAR Facility:[facility] Start: 10-22-2024 ambulatory Bonifacio Null Facility:[facility] Start: 10-21-2024 End: 10-21-2024 ambulatory JORDAN AZAR Facility:[facility] Start: 09-27-2024 End: 09-27-2024 ambulatory JORDAN M HOY Facility:[facility] Start: 09-13-2024 End: 11-13-2024 Follow-up encounter Kat Leal RN [facility] Start: 09-13-2024 End: 09-13-2024 ambulatory JORDAN M HOY Facility:[facility] Start: 08-23-2024 End: 10-23-2024 Follow-up encounter Kat Leal RN [facility] Start: 08-23-2024 End: 08-23-2024 ambulatory JORDAN M HOY Facility:[facility] Start: 08-12-2024 End: 10-12-2024 Follow-up encounter Francois [facility] RN [facility] Start: 08-12-2024 End: 08-12-2024 ambulatory JORDAN M HOY Facility:[facility] Start: 07-15-2024 End: 09-14-2024 Follow-up encounter Francois [facility] RN [facility] Start: 07-15-2024 End: 07-15-2024 ambulatory JORDAN M HOY Facility:[facility] Start: 06-17-2024 End: 08-17-2024 Follow-up encounter Kat Leal RN [facility] Start: 06-17-2024 End: 06-17-2024 ambulatory JORDAN M HOY Facility:[facility] Start: 05-25-2024 End: 05-27-2024 Refill Rebecca Mascorro POLICE WORKER.MANAGER OF TRAINING Work Phone: Transplant Center Comment on above: Refill Request Start: 05-20-2024 End: 07-20-2024 Follow-up encounter Kat Leal RN [facility] Start: 05-20-2024 End: 05-20-2024 ambulatory JORDAN M HOY Facility:[facility] Start: 05-09-2024 End: 05-09-2024 Refill Diane Vallecillo POLICE WORKERPriscaMANAGER OF TRAINING Work Phone: Transplant Center Comment on above: Refill Request Start: 04-22-2024 End: 04-22-2024 ambulatory JORDAN M HOY Facility:[facility] Start: 04-08-2024 End: 04-08-2024 Orders Only Kat Leal RN Transplant [facility] Comment on above: Liver replaced by tr ansplant (HCC) (Primary Dx) Start: 03-26-2024 End: 03-26-2024 Refill Kat Leal RN [facility] Comment on above: Results; Refill Requ est; Medication Dosage Adjustment (Decrease FK to 04/03) Start: 03-25-2024 End: 03-25-2024 [facility] Facility:[facility] Start: 03-12-2024 End: 03-12-2024 Refill Kat Leal RN [facility] Comment on above: Results; Refill Requ est; Medication Dosage Adjustment (Increase actigall to 3 times per day) Start: 03-11-2024 End: 03-11-2024 [facility] Facility:[facility] Start: 02-26-2024 End: 02-26-2024 [facility] Facility:[facility] Start: 02-13-2024 End: 02-20-2024 Chart abstracting Rebecca Mascorro APRN.MANAGER OF TRAINING Work Phone: Transplant Center Comment on above: Pathology review Start: 02-12-2024 End: 02-12-2024 [facility] Facility:[facility] Start: 02-08-2024 End: 02-08-2024 Telephone encounter Kat Leal RN Transplant Center Comment on above: Results Start: 02-07-2024 End: 02-07-2024 Subsequent hospital visit by physician [facility] Comment on above: Elevated LFTs [R79.8 9] Start: 02-07-2024 End: 02-07-2024 [facility] Facility:[facility] Start: 02-06-2024 End: 02-06-2024 Telephone encounter Jammie Cantu RN [facility]plant [facility] Comment on above: Abnormal Lab (Elevat ed lfts/) Results; Orders Biopsy Request (need s a STAT liver ultrasound and biopsy tomorrow.) Abnormal blood chemi stry (Primary Dx); Elevated LFTs Start: 02-05-2024 End: 02-05-2024 [facility] Facility:[facility] Start: 01-30-2024 End: 01-30-2024 Telephone encounter Kat Leal RN [facility] Comment on above: Results Start: 01-29-2024 End: 01-29-2024 ambulatory JORDAN AZAR Facility:[facility] Start: 01-16-2024 End: 01-16-2024 Refill Kat Leal RN [facility] Comment on above: Results; Refill Requ est; Medication Dosage Adjustment (Increase tacrolimus to 2/2) Start: 01-15-2024 End: 01-15-2024 ambulatory JORDAN AZAR Facility:[facility] Start: 01-01-2024 End: 01-01-2024 ambulatory JORDAN AZAR Facility:[facility] Start: 12-18-2023 End: 12-18-2023 ambulatory JORDAN Yolette Austin Facility:[facility] Start: 12-05-2023 End: 12-05-2023 ambulatory [facility] Facility:[facility] Start: 07-12-2023 Refill Kat Leal RN Trans plant Center Comment on above: Refill Request Start: 05-25-2023 Refill Diane boyer APRN.CNP Work Phone: Transplant Center Comment on above: Refill Request Start: 05-25-2023 Refill Vandana ([place]) [facility] Start: 05-22-2023 Telephone encounter Liver Txp Coordinator Work Phone: Transplant Center Comment on above: Return Call Request Start: 05-11-2023 Refill Dayna Reyes MD Work Phone: Gastroenterology Comment on above: Refill Request Start: 02-01-2023 Orders Only Kat Leal RN Trans plant Center Comment on above: Liver replaced by tr ansplant (HCC) (Primary Dx) Start: 01-26-2023 End: 01-26-2023 ambulatory MD Jordan Azar Work Phone: [facility] Work Phone: Start: 01-26-2023 End: 01-26-2023 Discharged Recurring MD Jordan Azar Work Phone: [facility]-Physical Therapy [place] Work Phone: Start: 01-16-2023 End: 01-16-2023 Patient encounter procedure [facility] Work Phone: Laboratory Medicine Comment on above: Liver replaced by tr ansplant (HCC) Start: 01-09-2023 End: 01-09-2023 Patient encounter procedure [facility] Work Phone: Laboratory Medicine Comment on above: Liver replaced by tr ansplant (HCC) Start: 12-09-2022 End: 12-09-2022 Patient encounter procedure Jane Hernandez PA-C Work Phone: [facility] [place] Comment on above: Acute left-sided low back pain with left-sided sciatica (Primary Dx); S/P lumbar laminectomy Start: 11-20-2022 Telephone encounter Francois [facility] RN [facility] Comment on above: 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 Start: 11-17-2022 End: 11-17-2022 Subsequent hospital visit by physician [facility] Comment on above: Liver [...] Neurology Start: 11-07-2022 Refill Kat Leal RN Trans [facility] Center Comment on above: Results; Refill Requ est; Medication Dosage Adjustment (Increase FK to 2/2) Start: 11-01-2022 End: 11-01-2022 ambulatory Tiffany Bucio Other [facility] [employer] Other Start: 11-01-2022 Office outpatient ne w 30 minutes Tiffany Bucio [facility] Neurosurgery Start: 10-31-2022 End: 10-31-2022 ambulatory Diane Vallecillo MANAGER OF TRAINING Work Phone: Transplant Center Comment on above: Liver replaced by tr ansplant (HCC) (Primary Dx); Immunosuppressed status (HCC) Start: 10-31-2022 End: 10-31-2022 Telemedicine consultation with patient Diane Vallecillo MANAGER OF TRAINING Work Phone: [facility] Start: 10-13-2022 Orders Only [facility] ([facility] Comment on above: Research subject (Pr imary Dx); Liver replaced by transplant (HCC) Start: 10-13-2022 Patient entered into trial [facility] Start: 10-07-2022 Refill Diane boyer APRN.MANAGER OF TRAINING Work Phone: Transplant Center Comment on above: Refill Request Start: 10-03-2022 End: 10-03-2022 Patient encounter procedure [facility] Work Phone: Laboratory Medicine Comment on above: Liver replaced by tr ansplant (HCC) Start: 09-22-2022 Telephone encounter Liver Txp Coordinator Work Phone: Transplant Center Comment on above: Medication Question Start: 09-15-2022 Refill Kat Leal RN [facility] Comment on above: Results; Refill Requ est; Medication Dosage Adjustment (Decrease FK to 1.5/1.5) Start: 09-01-2022 Refill Kat Leal RN [facility] Comment on above: Results; Refill Requ est; Medication Dosage Adjustment (Increase FK to 2/2, start actigall) Start: 08-30-2022 End: 08-30-2022 Patient encounter procedure Lab [facility] Work Phone: Laboratory Medicine Comment on above: Liver replaced by tr ansplant (HCC) Start: 08-04-2022 End: 08-04-2022 Patient encounter procedure Kulwinder Landry MD Work Phone: General Surgery Comment on above: Unilateral inguinal hernia without obstruction or gangrene, recurrence not specified (Primary Dx) Start: 08-03-2022 End: 08-03-2022 Patient encounter procedure Diane Vallecillo POLICE WORKER.MANAGER OF TRAINING Work Phone: Transplant Center Comment on above: Liver replaced by tr ansplant (HCC) (Primary Dx) Start: 08-01-2022 End: 08-01-2022 Subsequent hospital visit by physician [facility] Work Phone: Radiology Comment on above: Unilateral inguinal hernia without obstruction or gangrene, recurrence not specified [K40.90] Start: 07-27-2022 Orders Only Kat Leal RN [facility] Comment on above: Liver replaced by tr ansplant (HCC) (Primary Dx) Start: 07-15-2022 Telephone encounter Apolinar Wheeler MA General Surgery Comment on above: Clinic Prep Start: 07-13-2022 Orders Only Nanci Kamara POLICE WORKER.MANAGER OF TRAINING Work Phone: General Surgery Comment on above: Unilateral inguinal hernia without obstruction or gangrene, recurrence not specified (Primary Dx) Start: 07-11-2022 End: 07-11-2022 Patient encounter procedure Sharon Castro MD Work Phone: Urology Comment on above: Mass of right inguin al region (Primary Dx); Epididymal cyst Start: 07-04-2022 ambulatory Nay Brunson RDMS Radi ology Comment on above: Radiology Start: 07-04-2022 Patient encounter procedure Nay Brunson RDMS [facility] Start: 07-04-2022 End: 07-04-2022 Subsequent hospital visit by physician [facility] Comment on above: Scrotal swelling [N5 0.89] Start: 06-27-2022 Refill Diane boyer POLICE WORKER.MANAGER OF TRAINING Work Phone: Transplant Center Comment on above: [...] for prophylactic immunotherapy Start: 06-12-2022 Refill Diane boyer POLICE WORKER.MANAGER OF TRAINING Work Phone: Transplant Center Comment on above: Refill Request Start: 06-11-2022 Telephone encounter Sharon Castro MD Work Phone: Urology Comment on above: Appointment Start: 06-10-2022 Orders Only Kat Leal RN [facility] Comment on above: Exposure to hepatiti s B (Primary Dx); Exposure to hepatitis C; Exposure to HIV Start: 06-08-2022 End: 06-09-[address] JORDAN AZAR . Facility: Start: 06-02-2022 Refill Kat Leal RN [facility] Comment on above: Results; Refill Requ est; Medication Dosage Adjustment (Decrease FK to 2/2) Start: 05-31-2022 End: 05-31-2022 Patient encounter procedure Faustina Leahy POLICE WORKER.MANAGER OF TRAINING Work Phone: Endocrinology Comment on above: Steroid-induced [...] 05-26-2022 End: 05-26-2022 Patient encounter procedure [facility] Work Phone: Laboratory Medicine Comment on above: Liver replaced by tr ansplant (HCC) Start: 05-25-2022 End: 05-25-2022 Orders Only Jammie ([facility] Transplant [facility] Comment on above: Research study patie nt (Primary Dx); Liver replaced by transplant (HCC) Liver transplant rec ipient (HCC) (Primary Dx) Virtualist Scrotal Problem Start: 05-25-2022 [facility] entered [facility] Start: 05-23-2022 End: 05-23-2022 Patient encounter procedure [facility] Work Phone: Laboratory Medicine Comment on above: Liver replaced by tr ansplant (HCC) Start: 05-20-2022 Follow-up encounter Liver Txp Coordinator Work Phone: Transplant Center Comment on above: Medication Follow-up Start: 05-18-2022 End: 05-18-2022 Patient encounter procedure Diane Vallecillo POLICE WORKER.MANAGER OF TRAINING Work Phone: Transplant Center Comment on above: [...] surgery center MD Jordan Azar Work Phone: [facility]-Ultrasound [place] Work Phone: Start: 04-22-2022 End: 04-22-2022 ambulatory MD Jordan Azar Work Phone: [facility] Work Phone: Start: 04-15-2022 End: 04-15-2022 Subsequent hospital visit by physician Main A21 2 Radiology Comment on above: Unilateral inguinal hernia without obstruction or gangrene, recurrence not specified [K40.90] Start: 04-15-2022 End: 04-15-2022 Patient encounter procedure Lakshmi Nino Abby CORONADO Work Phone: Pulmonary Medicine Comment on above: [...] 04-01-2022 Subsequent hospital visit by physician Ct Prep [facility] Radiology Comment on above: Unilateral inguinal hernia [...] Refill Request Start: 02-23-2022 ambulatory DAYNA REYES Facility:[facility] Start: 02-23-2022 End: 02-23-2022 Subsequent hospital visit by physician [facility] Work Phone: [facility] Radiology Ultrasound Comment on above: [...] Medicine Start: 02-10-2022 End: 02-10-2022 Admission to establishment [facility] 6 Work Phone: [facility] Start: 02-10-2022 End: 02-10-2022 ambulatory P[facility] 6 Work Phone: Pre Anesthesia Comment on above: Pre-operative examin ation (Primary Dx); Essential hypertension; Dyslipidemia; Coronary artery disease involving [place] coronary artery of [place] heart without angina pectoris; Chronic obstructive pulmonary disease, unspecified COPD type (HCC); Histoplasmosis; Cirrhosis of liver with ascites, unspecified hepatic cirrhosis type (HCC); Portal hypertension with esophageal varices (HCC); Thrombocytopenia (HCC) Start: 02-10-2022 End: 02-10-2022 Preprocedural examination done [facility] 6 Work Phone: Pre Anesthesia Start: [...] 12-22-2021 Subsequent hospital visit by physician [facility] Ultras[facility] Comment on above: Other ascites [...] encounter procedure Ivette Mejia MD Work Phone: [facility] Start: 12-03-2021 End: 12-03-2021 Subsequent hospital visit by physician Us Main [...] Orders Start: 11-11-2021 End: 11-11-2021 Admission to establishment [facility] [place] 2 Work Phone: [facility] Start: 11-11-2021 End: 11-11-2021 ambulatory [facility] Work Phone: Pre Anesthesia Comment on above: Liver cirrhosis seco ndary to [place] (HCC) (Primary Dx); Preoperative examination; Unilateral inguinal hernia without obstruction or gangrene, recurrence not specified; Portal hypertensive gastropathy (HCC); Iron deficiency; Thrombocytopenia (HCC); Essential hypertension; Abdominal aortic aneurysm (AAA) without rupture (HCC); Other ascites; Portal hypertension with esophageal varices (HCC); Histoplasmosis Start: 11-11-2021 End: 11-11-2021 [facility]ced[facility] done [facility] Work Phone: Pre Anesthesia Start: 10-27-2021 End: 10-27-[address] JORDAN AZAR . Facility: Start: 10-18-2021 ambulatory Kulwinder Landry MD Work Phone: [facility] Comment on above: 8.17.22 cure (Right inguinal hernia repair 2.5 hours los 1) Start: 10-18-2021 Preprocedural examination done Kulwinder Landry MD Work Phone: [facility] Start: 10-18-2021 Telephone encounter [facility] Comment on above: Orders Start: 10-13-2021 [...] 04-30-2021 Subsequent hospital visit by physician [facility] Radiology Ct Scan Comment on above: Unilateral inguinal hernia without obstruction or gangrene, recurrence not specified [K40.90] Start: 12-25-2017 End: 12-27-2017 Patient encounter Family Physician Unavailable Facility:[facility] Start: 12-25-2017 Patient encounter procedure Facility:[id number] Start: 12-19-2017 Patient encounter Aleks rendon:[facility] Start: 12-19-2017 Patient encounter procedure Facility:[id number] Start: 10-18-2017 Patient encounter Lavell Nixon litaustin:[facility] Start: 10-18-2017 Patient encounter procedure Facility:[id number] Start: 09-19-2017 Patient encounter Lavell Nixon lity:[facility] Start: 09-19-2017 Patient encounter procedure Facility:[id number] Procedures Date Procedure Procedure Detail Performing Clinician Start: 08-23-2024 Lipid 1995 panel - S nahid or Plasma Francois German RN Start: 05-20-2024 Lipid 1995 panel - S nahid or Plasma Rebecca Mascorro POLICE WORKER.MANAGER OF TRAINING Work Phone: Start: 04-22-2024 Lipid 1995 panel - S nahid or Plasma Diane Vallecillo POLICE WORKER.MANAGER OF TRAINING Work Phone: Start: 02-07-2024 Dup-scan artl grey abdl/pel/scrot&/rpr orgn com Rebecca Mascorro POLICE WORKER.MANAGER OF TRAINING Work Phone: Start: 02-07-2024 US ABD LIVER VASCULAR J hollie Mascorro POLICE WORKER.MANAGER OF TRAINING Work Phone: Start: 09-11-2023 Lipid 1995 panel - S nahid or Plasma Kat Leal RN Start: 05-23-2023 Lipid 1995 panel - S nahid or Plasma Vandana Styles Start: 01-16-2023 Blood count complete auto&auto difrntl wbc Rebecca Mascorro POLICE WORKER.MANAGER OF TRAINING Work Phone: Start: 01-16-2023 Drug screen quantita tive tacrolimus Rebecca Mascorro POLICE WORKER.MANAGER OF TRAINING Work Phone: Start: 01-16-2023 Iadna cytomegaloviru s quantification Rebecca Mascorro POLICE WORKER.MANAGER OF TRAINING Work Phone: Start: 01-09-2023 Blood count complete auto&auto difrntl wbc Rebecca A Leo POLICE WORKER.MANAGER OF TRAINING Work Phone: Start: 01-09-2023 Drug screen quantita tive tacrolimus Rebecca A Leo POLICE WORKER.MANAGER OF TRAINING Work Phone: Start: 01-09-2023 Iadna cytomegaloviru s quantification Rebecca A Sumeetudpreston POLICE WORKER.MANAGER OF TRAINING Work Phone: Start: 11-17-2022 Dup-scan artl grey abdl/pel/scrot&/rpr orgn com Diane Daryl POLICE WORKER.MANAGER OF TRAINING Work Phone: Start: 11-17-2022 US ABD LIVER VASCULAR M hiren Vallecillo POLICE WORKER.MANAGER OF TRAINING Work Phone: Start: 11-14-2022 Lipid 1996 panel - S nahid or Plasma Lab Work Phone: Start: 10-03-2022 Blood count complete auto&auto difrntl wbc Rebecca A Leo POLICE WORKER.MANAGER OF TRAINING Work Phone: Start: 10-03-2022 Drug screen quantita tive tacrolimus Rebecca A Leo POLICE WORKER.[facility] Work Phone: Start: 10-03-2022 Iadna cytomegaloviru s quantification Rebecca A Leo POLICE WORKER.MANAGER OF TRAINING Work Phone: Start: 08-30-2022 Blood count complete auto&auto difrntl wbc Rebecca A Leo POLICE WORKER.MANAGER OF TRAINING Work Phone: Start: 08-30-2022 Drug screen quantita tive tacrolimus Rebecca A Siudpreston POLICE WORKER.MANAGER OF TRAINING Work Phone: Start: 08-30-2022 Iadna cytomegaloviru s quantification Rebecca A Leo POLICE WORKER.MANAGER OF TRAINING Work Phone: Start: 08-01-2022 Ct abdomen & pelvis w/o contrast material Nanci Kamara POLICE WORKER.MANAGER OF TRAINING Work Phone: Start: 07-04-2022 Dup-scan artl grey abdl/pel/scrot&/rpr orgn com Sharon Castro MD Work Phone: Start: 07-04-2022 Us scrotum & contents L sydni Castro MD Work Phone: Start: 05-31-2022 Hemoglobin A1c/Hemoglobin.total in Blood Faustina Leahy POLICE WORKER.[facility] Work Phone: Start: 05-26-2022 Blood count complete auto&auto difrntl wbc Rebecca A Siudowski POLICE WORKER.MANAGER OF TRAINING Work Phone: Start: 05-26-2022 Drug screen quantita tive tacrolimus Rebecca A Siudowski POLICE WORKER.[facility] Work Phone: Start: 05-23-2022 Blood count complete auto&auto difrntl wbc Rebecca A Siudowski POLICE WORKER.[facility] Work Phone: Start: 05-23-2022 Drug screen quantita tive tacrolimus Rebecca A Siudowski POLICE WORKER.[facility] Work Phone: Start: 05-23-2022 Iadna cytomegaloviru s quantification Rebecca A Siudowski POLICE WORKER.[facility] Work Phone: Start: 05-02-2022 H/O: liver recipient [...] 03-22-2022 Albumin serum plasma /whole blood Melody E Gavin POLICE WORKER.MANAGER OF TRAINING Work Phone: Start: 03-22-2022 BF MANUAL DIFF Melody E Gavin POLICE WORKER.MANAGER OF TRAINING Work Phone: Start: 03-22-2022 Cell count misc body fluids w/differential count Melody E [place] POLICE WORKER.MANAGER OF TRAINING Work Phone: Start: 03-22-2022 Cul bact xcpt urine blood/stool aerobic isol Melody E [place] POLICE WORKER.MANAGER OF TRAINING Work Phone: Start: 03-22-2022 US PARACENTESIS (POC ) DDI USE ONLY Melody E Gavin POLICE WORKER.MANAGER OF TRAINING Work Phone: Start: 02-23-2022 Us abdominal real [...] Start: 12-03-2021 US ABD LIVER VASCULAR C hrshanel Reyes MD Work Phone: Start: 11-12-2021 Antibody screen Pacc 2 Work Phone: Start: 11-11-2021 Ecg routine ecg w/le ast 12 lds w/i&r [facility] Provider Start: 09-13-2021 Echo tthrc r-t 2d w/ wo m-mode complete rest&st Dayna Reyse MD Work Phone: Start: 09-13-2021 LVEF STRESS ECHO DOBUTAMINE Dayna Reyes MD Work Phone: Start: 07-13-2021 Dup-scan artl grey abdl/pel/scrot&/rpr orgn com Dayna Reyes MD Work Phone: Start: 07-13-2021 US ABD LIVER VASCULAR C nayana Reyes MD Work Phone: Start: 06-29-2021 MRI [...] By: #### B [id number] ####Test performed at: [place] [address] Start: 12-19-2017 Electrocardiogram Lavell Álvarez H/O: liver recipient Liver repla christos by transplant (HCC) Kat Leal RN H/O: liver recipient Status post liver transplant (HCC) Diane Vallecillo APRN.MANAGER OF TRAINING Work Phone: H/O: liver recipient Liver repla christos by transplant (HCC) Jammie ([facility] [facility]) [place] H/O: liver recipient Liver trans plant recipient [...] repla christos by transplant (HCC) Diane Vallecillo APRN.[facility] Work Phone: H/O: liver recipient Liver repla christos by transplant (HCC) Lab Work Phone: H/O: liver recipient Liver repla christos by transplant (HCC) Lab Work Phone: H/O: liver recipient Liver repla christos by transplant (HCC) Jammie ([facility]) [place] H/O: liver recipient Liver repla christos by transplant (HCC) Diane Vallecillo APRN.[facility] Work Phone: H/O: liver recipient Liver trans [...] Detail Author Start: 09-09-2029 Urine microalbumin profile [facility] jose daniel Start: 08-23-2029 Lipid panel Lipid Screening [facility] Start: 08-23-2029 Prostate specific antigen measurement Prostate Cancer Screening Discussion [facility] Start: 05-20-2029 Lipid panel Lipid Screening [facility] Start: 04-22-2029 Lipid panel Lipid Screening [facility] Start: 09-10-2028 Lipid panel Lipid Screening [facility] Start: 05-23-2028 Lipid panel Lipid Screening [facility] Start: 05-22-2028 Prostate specific antigen measurement Prostate Cancer Screening Discussion [facility] Start: 11-19-2027 Diabetes Screening Diabetes Screening [facility] Start: 11-15-2027 Lipid 1996 panel - Serum or Plasma Lipid Screening [facility] Start: 11-15-2027 Lipid panel Lipid Screening [facility] Start: 11-15-2027 LIPID SCREEN LIPID SCREEN [facility] Start: 10-22-2027 Diabetes Screening Diabetes Screening [facility] Start: 09-28-2027 Diabetes Screening Diabetes Screening [facility] Start: 09-14-2027 Diabetes Screening Diabetes Screening [facility] Start: 08-13-2027 Diabetes Screening Diabetes Screening [facility] Start: 08-09-2027 LIPID SCREEN LIPID SCREEN [facility] Start: 07-16-2027 Diabetes Screening Diabetes Screening [facility] Start: 07-05-2027 LIPID SCREEN LIPID SCREEN [facility] Start: 05-20-2027 Diabetes Screening Diabetes Screening [facility] Start: 05-16-2027 LIPID SCREEN LIPID SCREEN [facility] Start: 04-29-2027 LIPID SCREEN LIPID SCREEN [facility] Start: 04-22-2027 Diabetes Screening Diabetes Screening [facility] Start: 04-08-2027 Diabetes Screening Diabetes Screening [facility] Start: 03-25-2027 Diabetes Screening Diabetes Screening [facility] Start: 03-11-2027 Diabetes Screening Diabetes Screening [facility] Start: 02-11-2027 Diabetes Screening Diabetes Screening [facility] Start: 02-04-2027 Diabetes Screening Diabetes Screening [facility] Start: 01-28-2027 Diabetes Screening Diabetes Screening [facility] Start: 01-14-2027 Diabetes Screening Diabetes Screening [facility] Start: 07-02-2026 Diabetes Screening Diabetes Screening [facility] Start: 05-23-2026 Diabetes Screening Diabetes Screening [facility] Start: 05-22-2026 Diabetes Screening Diabetes Screening [facility] Start: 05-08-2026 Diabetes Screening Diabetes Screening [facility] Start: 04-21-2026 PROSTATE CANCER SCREENING DISCUSSION PROSTATE CANCER SCREENING DISCUSSION [facility] Start: 04-21-2026 Prostate specific antigen measurement Prostate Cancer Screening Discussion [facility] Start: 01-30-2026 Diabetes Screening Diabetes Screening [facility] Start: 01-16-2026 Diabetes Screening Diabetes Screening [facility] Start: 01-09-2026 Diabetes Screening Diabetes Screening [facility] Start: 12-06-2025 DIABETES SCREEN DIABETES SCREEN [facility] Start: 11-14-2025 DIABETES SCREEN DIABETES SCREEN [facility] Start: 11-07-2025 DIABETES SCREEN DIABETES SCREEN [facility] Start: 10-31-2025 DIABETES SCREEN DIABETES SCREEN [facility] Start: 10-10-2025 DIABETES SCREEN DIABETES SCREEN [facility] Start: 10-03-2025 DIABETES SCREEN DIABETES SCREEN [facility] Start: 09-19-2025 DIABETES SCREEN DIABETES SCREEN [facility] Start: 09-12-2025 DIABETES SCREEN DIABETES SCREEN [facility] Start: 08-30-2025 DIABETES SCREEN DIABETES SCREEN [facility] Start: 08-23-2025 Hepatitis B surface antibody level LDL Cholesterol [facility] Start: 08-04-2025 DIABETES SCREEN DIABETES SCREEN [facility] Start: 08-01-2025 DIABETES SCREEN DIABETES SCREEN [facility] Start: 07-25-2025 DIABETES SCREEN DIABETES SCREEN [facility] Start: 07-14-2025 DIABETES SCREEN DIABETES SCREEN [facility] Start: 07-11-2025 DIABETES SCREEN DIABETES SCREEN [facility] Start: 07-04-2025 DIABETES SCREEN DIABETES SCREEN [facility] Start: 06-27-2025 DIABETES SCREEN DIABETES SCREEN [facility] Start: 06-23-2025 DIABETES SCREEN DIABETES SCREEN [facility] Start: 06-16-2025 DIABETES SCREEN DIABETES SCREEN [facility] Start: 06-13-2025 DIABETES SCREEN DIABETES SCREEN [facility] Start: 06-09-2025 DIABETES SCREEN DIABETES SCREEN [facility] Start: 06-06-2025 DIABETES SCREEN DIABETES SCREEN [facility] Start: 06-02-2025 DIABETES SCREEN DIABETES SCREEN [facility] Start: 05-31-2025 DIABETES SCREEN DIABETES SCREEN [facility] Start: 05-30-2025 DIABETES SCREEN DIABETES SCREEN [facility] Start: 05-26-2025 DIABETES SCREEN DIABETES SCREEN [facility] Start: 05-23-2025 DIABETES SCREEN DIABETES SCREEN [facility] Start: 05-20-2025 Hepatitis B surface antibody level LDL Cholesterol [facility] Start: 05-19-2025 DIABETES SCREEN DIABETES SCREEN [facility] Start: 05-16-2025 DIABETES SCREEN DIABETES SCREEN [facility] Start: 05-13-2025 DIABETES SCREEN DIABETES SCREEN [facility] Start: 05-05-2025 DIABETES SCREEN DIABETES SCREEN [facility] Start: 05-02-2025 DIABETES SCREEN DIABETES SCREEN [facility] Start: 04-29-2025 DIABETES SCREEN DIABETES SCREEN [facility] Start: 04-23-2025 Colonoscopy COLONOSCOPY [facility] Start: 04-23-2025 COLORECTAL CANCER SCREENING COLORECTAL CANCER SCREENING [facility] Start: 04-23-2025 Screening for malignant neoplasm of colon [facility] Start: 04-22-2025 Hepatitis B surface antibody level LDL Cholesterol [facility] Start: 04-13-2025 DIABETES SCREEN DIABETES SCREEN [facility] Start: 04-07-2025 DIABETES SCREEN DIABETES SCREEN [facility] Start: 03-17-2025 End: 03-17-2025 Patient encounter procedure 03/17/2025 7:45 AM EST Office Visit [facility] [address] [place] [address] lab [facility] Comment on above: lab Start: 03-10-2025 DIABETES SCREEN DIABETES SCREEN [facility] Start: 03-04-2025 DIABETES SCREEN DIABETES SCREEN [facility] Start: 03-02-2025 DIABETES SCREEN DIABETES SCREEN [facility] Start: 02-25-2025 DIABETES SCREEN DIABETES SCREEN [facility] Start: 02-21-2025 DIABETES SCREEN DIABETES SCREEN [facility] Start: 02-17-2025 End: 02-17-2025 Patient encounter procedure 02/17/2025 7:45 AM EST Office Visit [facility] [address] [place] [address] lab [facility] Comment on above: lab Start: 01-27-2025 DIABETES SCREEN DIABETES SCREEN [facility] Start: 01-20-2025 End: 01-20-2025 Patient encounter procedure 01/20/2025 7:45 AM EDT Office Visit [facility] [address] [place] [address] lab [facility] Comment on above: lab Start: 01-13-2025 DIABETES SCREEN DIABETES SCREEN [facility] Start: 01-04-2025 DIABETES SCREEN DIABETES SCREEN [facility] Start: 12-20-2024 DIABETES SCREEN DIABETES SCREEN [facility] Start: 12-16-2024 End: 12-16-2024 Patient encounter procedure 12/16/2024 7:45 AM EDT Office Visit [facility] [address] [place] [address] lab [facility] Comment on above: lab Start: 12-02-2024 Influenza vaccination [facility] Start: 12-01-2024 DIABETES SCREEN DIABETES SCREEN [facility] Start: 11-29-2024 DIABETES SCREEN DIABETES SCREEN [facility] Start: 11-27-2024 End: 11-27-2024 Patient encounter procedure 11/27/2024 10:45 AM EDT Office Visit General Surgery [address] [id number] Ysabel Benito MD [address] [place] [address] Hernia surgery General Surgery Comment on above: Hernia surgery Start: 11-26-2024 DIABETES SCREEN DIABETES SCREEN [facility] Start: 11-18-2024 End: 11-18-2024 Patient encounter procedure 11/18/2024 7:45 AM EDT Office Visit [facility] [address] [place] [address] lab [facility] Comment on above: lab Start: 11-12-2024 DIABETES SCREEN DIABETES SCREEN [facility] Start: 11-11-2024 DIABETES SCREEN DIABETES SCREEN [facility] Start: 10-21-2024 End: 10-21-2024 Patient encounter procedure 10/21/2024 7:45 AM EDT Office Visit [facility] [address] [place] [address] lab [facility] Comment on above: lab Start: 10-07-2024 DIABETES SCREEN DIABETES SCREEN [facility] Start: 09-16-2024 End: 09-16-2024 Patient encounter procedure 09/16/2024 7:45 AM EDT Office Visit [facility] [address] [place] [address] lab [facility] Comment on above: lab Start: 09-13-2024 DIABETES SCREEN DIABETES SCREEN [facility] Start: 09-10-2024 Hepatitis B surface antibody level LDL Cholesterol [facility] Start: 08-13-2024 LIPID SCREEN LIPID SCREEN [facility] Start: 08-12-2024 DIABETES SCREEN DIABETES SCREEN [facility] Start: 08-12-2024 End: 08-12-2024 Patient encounter procedure 08/12/2024 7:45 AM EDT Office Visit [facility] [address] [place] [address] lab [facility] Comment on above: lab Start: 07-29-2024 DIABETES SCREEN DIABETES SCREEN [facility] Start: 07-15-2024 End: 07-15-2024 Patient encounter procedure 07/15/2024 7:45 AM EDT Office Visit [facility] [address] [place] [address] lab [facility] Comment on above: lab Start: 07-07-2024 DIABETES SCREEN DIABETES SCREEN [facility] Start: 07-01-2024 End: 07-01-2024 Patient encounter procedure 07/01/2024 7:45 AM EDT Office Visit [facility] [address] [place] [address] lab [facility] Comment on above: lab Start: 06-29-2024 DIABETES SCREEN DIABETES SCREEN [facility] Start: 06-17-2024 End: 06-17-2024 Patient encounter procedure 06/17/2024 7:45 AM EDT Office Visit [facility] [address] [place] [address] lab [facility] Comment on above: lab Start: 06-10-2024 DIABETES SCREEN DIABETES SCREEN [facility] Start: 06-03-2024 End: 06-03-2024 Patient encounter procedure 06/03/2024 7:45 AM EST Office Visit [facility] [address] [place] [address] lab [facility] Comment on above: lab Start: 2024 Advance Directive Discussion Advance Directive Discussion [facility] Start: 05-23-2024 Hepatitis B surface antibody level LDL Cholesterol [facility] Start: 05-20-2024 End: 05-20-2024 Patient encounter procedure 05/20/2024 7:45 AM EST Office Visit [facility] [address] [place] [address] lab [facility] Comment on above: lab Start: 05-06-2024 End: 05-06-2024 Patient encounter procedure 05/06/2024 8:00 AM EST Office Visit [facility] [address] [place] [address] lab [facility] Comment on above: lab Start: 04-22-2024 End: 04-22-2024 Patient encounter procedure 04/22/2024 8:15 AM EST Office Visit [facility] [address] [place] [address] lab [facility] Comment on above: lab Start: 04-08-2024 End: 04-08-2024 Patient encounter procedure 04/08/2024 9:00 AM EST Office Visit [facility] [address] [place] [address] lab [facility] Comment on above: lab Start: 04-03-2024 Medicare Advantage Annual Wellness Visit Medicare Advantage Annual Wellness Visit [facility] Start: 03-25-2024 End: 03-25-2024 Patient encounter procedure 03/25/2024 7:45 AM EST Office Visit [facility] [address] [place] [address] lab [facility] Comment on above: lab Start: 03-11-2024 End: 03-11-2024 Patient encounter procedure 03/11/2024 7:45 AM EST Office Visit [facility] [address] [place] [address] lab [facility] Comment on above: lab Start: 02-26-2024 End: 02-26-2024 Patient encounter procedure 02/26/2024 8:00 AM EST Office Visit [facility] [address] [place] [address] lab [facility] Comment on above: lab Start: 02-12-2024 End: 02-12-2024 Patient encounter procedure 02/12/2024 8:15 AM EST Office Visit [facility] [address] [place] [address] labs [facility] Comment on above: labs Start: 02-07-2024 End: 03-07-2025 US.doppler Abdominal vessels US ABD LIVER VASCULAR Radiology STAT Elevated LFTs Expected: 02/07/2024, Expires: 03/07/2025 [facility] Comment on above: Expected: 02/07/2024, Expires: Start: 02-07-2024 End: 03-07-2025 US.doppler Unspecified body region US DOPPLER COMPLETE Radiology STAT Elevated LFTs Expected: 02/07/2024, Expires: 03/07/2025 [facility] Comment on above: Expected: 02/07/2024, Expires: Start: 02-07-2024 End: 02-07-2024 Admission to same day surgery center 02/07/2024 11:00 AM EST - 02/07/2024 12:00 PM EST Surgery [facility] [address] [place] [address] Britton Mack MD [address], [place] [id number] PERCUTANEOUS NEEDLE BIOPSY OF LIVER Angio Comment on above: PERCUTANEOUS NEEDLE BIOPSY OF LIVER Start: 02-07-2024 End: 02-07-2024 Biopsy liver needle percutaneous PERCUTANEOUS NEEDLE BIOPSY OF LIVER Elevated LFTs 02/07/2024 11:00 AM EST [facility] Start: 02-07-2024 Subsequent hospital visit by physician 02/07/2024 11:00 AM EST Hospital Encounter [facility] [address] [place] [address] Britton Mack MD [address] [place] [address] Elevated LFTs [R79.89] Angio Comment on above: Elevated LFTs [R79.89] Start: 02-07-2024 End: 02-07-2024 Patient encounter procedure 02/07/2024 8:30 AM EST Appointment Radiology [address] [address] 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 4] Start: 02-06-2024 End: 05-07-2024 PT panel - Platelet poor plasma by Coagulation assay PROTHROMBIN TIME Lab STAT At risk for bleeding Expected: 02/06/2024, Expires: 05/07/2024 [facility] Comment on above: Expected: 02/06/2024, Expires: Start: 02-05-2024 End: 02-05-2024 Patient encounter procedure 02/05/2024 7:45 AM EST Office Visit [facility] [address] [place] [address] lab [facility] Comment on above: lab Start: 01-29-2024 End: 01-29-2024 Patient encounter procedure 01/29/2024 7:45 AM EDT Office Visit [facility] [address] [place] [address] labs [facility] Comment on above: labs Start: 12-03-2023 Covid-19 Vaccine ( season) Covid-19 Vaccine ( season) [facility] Start: 12-03-2023 Influenza vaccination Influenza Vaccine (#1) [facility] Start: 11-15-2023 Hepatitis B surface antibody level LDL CHOLESTEROL [facility] Start: 08-09-2023 Hepatitis B surface antibody level LDL CHOLESTEROL [facility] Start: 07-12-2023 BP CONTROLLED (<130/80) BP CONTROLLED (<130/80) [facility] Start: 07-05-2023 Hepatitis B surface antibody level LDL CHOLESTEROL [facility] Start: 06-16-2023 BP CONTROLLED (<130/80) BP CONTROLLED (<130/80) [facility] Start: 05-31-2023 BP CONTROLLED (<130/80) BP CONTROLLED (<130/80) [facility] Start: 05-27-2023 BP CONTROLLED (<130/80) BP CONTROLLED (<130/80) [facility] Start: 05-25-2023 BP CONTROLLED (<130/80) BP CONTROLLED (<130/80) [facility] Start: 05-18-2023 BP CONTROLLED (<130/80) BP CONTROLLED (<130/80) [facility] Start: 05-16-2023 Hepatitis B surface antibody level LDL CHOLESTEROL [facility] Start: 04-29-2023 Hepatitis B surface antibody level LDL CHOLESTEROL [facility] Start: 04-03-2023 Behavioral Health Screening Behavioral Health Screening [facility] Start: 04-03-2023 Depression Assessment Depression Assessment [facility] Start: 02-11-2023 BP CONTROLLED (<130/80) BP CONTROLLED (<130/80) [facility] Start: 02-10-2023 BP CONTROLLED (<130/80) BP CONTROLLED (<130/80) [facility] Start: 12-29-2022 Influenza vaccination LUNG CANCER SCREENING [facility] Start: 12-29-2022 Screening for malignant neoplasm of lung Lung Cancer Screening [facility] Start: 12-02-2022 Covid-19 Vaccine ( season) Covid-19 Vaccine ( season) [facility] Start: 12-02-2022 Influenza vaccination [facility] Start: 11-29-2022 BP CONTROLLED (<130/80) BP CONTROLLED (<130/80) [facility] Start: 11-17-2022 End: 12-14-2023 Dup-scan artl grey abdl/pel/scrot&/rpr orgn com US DOPPLER COMPLETE Radiology HUSSEIN Liver replaced by transplant (HCC) Expected: 11/17/2022, Expires: 12/14/2023 [facility] Work Phone: Comment on above: Expected: 11/17/2022, Expires: 4 Start: 11-17-2022 End: 12-14-2023 US ABD LIVER VASCULAR US ABD LIVER VASCULAR Radiology HUSSEIN Liver replaced by transplant (HCC) Expected: 11/17/2022, Expires: 12/14/2023 [facility] Work Phone: Comment on above: Expected: 11/17/2022, Expires: 4 Start: 11-11-2022 BP CONTROLLED (<130/80) BP CONTROLLED (<130/80) [facility] Start: 10-17-2022 End: 12-17-2022 PT panel - Platelet poor plasma by Coagulation assay PROTHROMBIN TIME/PT Lab Routine Research subject Liver replaced by transplant (HCC) Expected: 10/17/2022 (Approximate), Expires: 12/17/2022 [facility] Work Phone: Comment on above: Expected: 10/17/2022 (Approximate), Expi res: 12/17/2022 Start: 10-07-2022 BP CONTROLLED (<130/80) BP CONTROLLED (<130/80) [facility] Start: 07-27-2022 End: 09-26-2022 PHOSPHATIDYLETHANOL (PETH) [facility] Work Phone: Comment on above: Expected: 07/27/2022, Expires: 3 Start: 07-12-2022 End: 09-11-2022 25-hydroxyvitamin D3 [Mass/volume] in Serum or Plasma VITAMIN D 25 HYDROXY Lab Routine Vitamin D deficiency Expected: 07/12/2022, Expires: 09/11/2022 [facility] Work Phone: Comment on above: Expected: 07/12/2022, Expires: 3 Start: 06-25-2022 COVID-19 VACCINE (9 - Mixed Product risk series) COVID-19 VACCINE (9 - Mixed Product risk series) [facility] Start: 06-24-2022 End: 06-26-2023 Us scrotum & contents US SCROTUM AND CONTENTS Radiology Routine Scrotal swelling Liver transplant recipient (HCC) Expected: 06/24/2022 (Approximate), Expires: 06/26/2023 [facility] Work Phone: Comment on above: Expected: 06/24/2022 (Approximate), Expi res: 06/26/2023 Start: 06-13-2022 End: 08-13-2022 Hepatitis B virus DNA [Units/volume] in Serum HEP B VIRAL DNA ROD Lab Routine Exposure to hepatitis B Expected: 06/13/2022, Expires: 08/13/2022 [facility] Work Phone: Comment on above: Expected: 06/13/2022, Expires: 3 Start: 06-13-2022 End: 08-13-2022 Hepatitis C virus RNA [Units/volume] (viral load) in Serum or Plasma by JAIME with probe detection HCV QUANT RNA BY PCR Lab Routine Exposure to hepatitis C Expected: 06/13/2022, Expires: 08/13/2022 [facility] Work Phone: Comment on above: Expected: 06/13/2022, Expires: 3 Start: 06-13-2022 End: 08-13-2022 HIV 1 RNA [#/volume] (viral load) in Serum or Plasma by JAIME with probe detection HIV RNA VIRAL LOAD Lab Routine Exposure to HIV Expected: 06/13/2022, Expires: 08/13/2022 [facility] Work Phone: Comment on above: Expected: 06/13/2022, Expires: 3 Start: 05-30-2022 End: 07-30-2022 PT panel - Platelet poor plasma by Coagulation assay PROTHROMBIN TIME/PT Lab Routine Research study patient Liver replaced by transplant (HCC) Expected: 05/30/2022, Expires: 07/30/2022 [facility] Work Phone: Comment on above: Expected: 05/30/2022, Expires: 3 Start: 05-27-2022 End: 07-27-2022 [id number] [Mass/volume] in Serum or Plasma [facility] Work Phone: Comment on above: Expected: 05/27/2022, Expires: 3 Start: 05-27-2022 End: 07-27-2022 Choriogonadotropin.beta subunit [Units/volume] in Serum or Plasma [facility] Work Phone: Comment on above: Expected: 05/27/2022, Expires: 3 Start: 05-27-2022 End: 07-27-2022 Lactate dehydrogenase [Enzymatic activity/volume] in Serum or Plasma [facility] Work Phone: Comment on above: Expected: 05/27/2022, Expires: 3 Start: 05-17-2022 Adult depression screening assessment DEPRESSION SCREENING [facility] Start: 04-27-2022 End: 04-27-2023 LIVER REC HLA AB SCREEN LIVER REC HLA AB SCREEN ALLOGEN Routine 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) Expected: 04/27/2022, Expires: 04/27/2023 [facility] Work Phone: Comment on above: Expected: 04/27/2022, Expires: 4 Start: 04-22-2022 [facility] Start: 04-15-2022 BP CONTROLLED (<130/80) BP CONTROLLED (<130/80) [facility] Start: 04-13-2022 End: 06-13-2022 Ferritin [Mass/volume] in Serum or Plasma FERRITIN BLD Lab Routine Iron deficiency anemia, unspecified iron deficiency anemia type Expected: 04/13/2022, Expires: 06/13/2022 [facility] Work Phone: Comment on above: Expected: 04/13/2022, Expires: 3 Start: 04-13-2022 End: 06-13-2022 Iron and Iron binding capacity panel - Serum or Plasma IRON + TIBC Lab Routine Iron deficiency anemia, unspecified iron deficiency anemia type Expected: 04/13/2022, Expires: 06/13/2022 [facility] Work Phone: Comment on above: Expected: 04/13/2022, Expires: 3 Start: 04-13-2022 End: 06-13-2022 Lipid 1996 panel - Serum or Plasma LIPID PANEL BASIC Lab Routine Cirrhosis of liver with ascites, unspecified hepatic cirrhosis type (HCC) Expected: 04/13/2022, Expires: 06/13/2022 [facility] Work Phone: Comment on above: Expected: 04/13/2022, Expires: 3 Start: 04-13-2022 End: 06-13-2022 Thyrotropin [Units/volume] in Serum or Plasma TSH BLD Lab Routine Cirrhosis of liver with ascites, unspecified hepatic cirrhosis type (HCC) Expected: 04/13/2022, Expires: 06/13/2022 [facility] Work Phone: Comment on above: Expected: 04/13/2022, Expires: 3 Start: 04-03-2022 DEPRESSION ASSESSMENT DEPRESSION ASSESSMENT [facility] Start: 02-11-2022 End: 04-13-2022 Magnesium [Mass/volume] in Serum or Plasma MAGNESIUM BLD Lab Routine Cirrhosis of liver with ascites, unspecified hepatic cirrhosis type (HCC) Expected: 02/11/2022, Expires: 04/13/2022 [facility] Work Phone: Comment on above: Expected: 02/11/2022, Expires: 3 Start: 02-11-2022 End: 04-13-2022 Phosphate [Mass/volume] in Serum or Plasma PHOSPHORUS INORGANIC Lab Routine Cirrhosis of liver with ascites, unspecified hepatic cirrhosis type (HCC) Expected: 02/11/2022, Expires: 04/13/2022 [facility] Work Phone: Comment on above: Expected: 02/11/2022, Expires: 3 Start: 02-11-2022 End: 04-13-2022 Retinol [Mass/volume] in Serum or Plasma VITAMIN A/RETINOL Lab Routine Cirrhosis of liver with ascites, unspecified hepatic cirrhosis type (HCC) Vitamin A deficiency Expected: 02/11/2022, Expires: 04/13/2022 [facility] Work Phone: Comment on above: Expected: 02/11/2022, Expires: 3 Start: 02-11-2022 End: 04-13-2022 Zinc [Mass/volume] in Serum or Plasma ZINC BLD Lab Routine Cirrhosis of liver with ascites, unspecified hepatic cirrhosis type (HCC) Hepatic encephalopathy Expected: 02/11/2022, Expires: 04/13/2022 [facility] Work Phone: Comment on above: Expected: 02/11/2022, Expires: 3 Start: 01-27-2022 End: 02-12-2023 SPIROMETRY WITH DILATOR IF OBSTRUCTED SPIROMETRY WITH DILATOR IF OBSTRUCTED PFT Routine Chronic rhinitis Pneumonia of right lower lobe due to infectious organism Expected: 01/27/2022, Expires: 02/12/2023 [facility] Work Phone: Comment on above: Expected: 01/27/2022, Expires: 3 Start: 01-19-2022 End: 03-21-2022 aPTT in Platelet poor plasma by Coagulation assay ACTIVATED PTT Lab Routine Preoperative examination Unilateral inguinal hernia without obstruction or gangrene, recurrence not specified Expected: 01/19/2022, Expires: 03/21/2022 [facility] Work Phone: Comment on above: Expected: 01/19/2022, Expires: 2 Start: 01-19-2022 End: 03-21-2022 CBC W Auto Differential panel - Blood CBC + DIFF Lab Routine Preoperative examination Unilateral inguinal hernia without obstruction or gangrene, recurrence not specified Expected: 01/19/2022, Expires: 03/21/2022 [facility] Work Phone: Comment on above: Expected: 01/19/2022, Expires: 2 Start: 01-19-2022 End: 03-21-2022 PT panel - Platelet poor plasma by Coagulation assay PROTHROMBIN TIME/PT Lab Routine Preoperative examination Unilateral inguinal hernia without obstruction or gangrene, recurrence not specified Expected: 01/19/2022, Expires: 03/21/2022 [facility] Work Phone: Comment on above: Expected: 01/19/2022, Expires: 2 Start: 01-19-2022 End: 10-18-2022 SARS-CoV-2 (COVID-19) RNA [Presence] in Respiratory specimen by JAIME with probe detection PRE-PROCEDURE & PRE-OPERATIVE COVID Microbiology Routine Preoperative examination Unilateral inguinal hernia without obstruction or gangrene, recurrence not specified Expected: 01/19/2022, Expires: 10/18/2022 [facility] Work Phone: Comment on above: Expected: 01/19/2022, Expires: 3 Start: 01-19-2022 End: 03-21-2022 TYPE AND SCREEN,30 DAY TYPE AND SCREEN,30 DAY Blood Bank Routine Preoperative examination Unilateral inguinal hernia without obstruction or gangrene, recurrence not specified Expected: 01/19/2022, Expires: 03/21/2022 [facility] Work Phone: Comment on above: Expected: 01/19/2022, Expires: 2 Start: 01-10-2022 End: 01-10-2023 aPTT in Platelet poor plasma by Coagulation assay ACTIVATED PTT Lab Routine Preoperative examination Unilateral inguinal hernia without obstruction or gangrene, recurrence not specified Expected: 01/10/2022, Expires: 01/10/2023 [facility] Work Phone: Comment on above: Expected: 01/10/2022, Expires: 3 Start: 01-10-2022 End: 03-12-2022 CBC W Auto Differential panel - Blood CBC + DIFF Lab Routine Preoperative examination Unilateral inguinal hernia without obstruction or gangrene, recurrence not specified Expected: 01/10/2022 (Approximate), Expires: 03/12/2022 [facility] Work Phone: Comment on above: Expected: 01/10/2022 (Approximate), Expi res: 03/12/2022 Start: 01-10-2022 End: 01-10-2023 Comprehensive metabolic 2000 panel - Serum or Plasma COMP METABOLIC PANEL Lab Routine Preoperative examination Unilateral inguinal hernia without obstruction or gangrene, recurrence not specified Expected: 01/10/2022, Expires: 01/10/2023 [facility] Work Phone: Comment on above: Expected: 01/10/2022, Expires: 3 Start: 01-10-2022 End: 01-10-2023 PT panel - Platelet poor plasma by Coagulation assay PROTHROMBIN TIME/PT Lab Routine Preoperative examination Unilateral inguinal hernia without obstruction or gangrene, recurrence not specified Expected: 01/10/2022, Expires: 01/10/2023 [facility] Work Phone: Comment on above: Expected: 01/10/2022, Expires: 3 Start: 01-10-2022 End: 01-10-2023 TYPE AND SCREEN,30 DAY TYPE AND SCREEN,30 DAY Blood Bank Routine Preoperative examination Unilateral inguinal hernia without obstruction or gangrene, recurrence not specified Expected: 01/10/2022, Expires: 01/10/2023 [facility] Work Phone: Comment on above: Expected: 01/10/2022, Expires: 3 Start: 12-02-2021 Influenza vaccination INFLUENZA (#1) [facility] Start: 10-18-2021 End: 10-18-2022 LIVER REC HLA AB SCREEN LIVER REC HLA AB SCREEN ALLOGEN Routine 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) Expected: 10/18/2021, Expires: 10/18/2022 [facility] Work Phone: Comment on above: Expected: 10/18/2021, Expires: 3 Start: 10-10-2021 COVID-19 VACCINE (5 - Booster) COVID-19 VACCINE (5 - Booster) [facility] Start: 10-07-2021 End: 12-07-2021 Comprehensive metabolic 2000 panel - Serum or Plasma [facility] Work Phone: Comment on above: Expected: 10/07/2021, Expires: 2 Start: 07-17-2021 End: 09-16-2021 ZINC BLD ZINC BLD Lab Routine Hepatic encephalopathy (HCC) Expected: 07/17/2021, Expires: 09/16/2021 [facility] Work Phone: Comment on above: Expected: 07/17/2021, Expires: 2 Start: 06-18-2021 COVID-19 VACCINE (4 - Booster) COVID-19 VACCINE (4 - Booster) [facility] Start: 06-18-2021 Influenza vaccination LUNG CANCER SCREENING [facility] Start: 04-03-2021 DEPRESSION ASSESSMENT DEPRESSION ASSESSMENT [facility] Start: 09-09-2020 PNEUMOCOCCAL (2 - PPSV23 if available, else PCV20) PNEUMOCOCCAL (2 - PPSV23 if available, else PCV20) [facility] Start: 09-09-2020 PNEUMOCOCCAL (2 - PPSV23 or PCV20) PNEUMOCOCCAL (2 - PPSV23 or PCV20) [facility] Start: 08-13-2020 Hepatitis B surface antibody level LDL CHOLESTEROL [facility] Start: 11-05-2019 PNEUMOCOCCAL (2 - PPSV23 if available, else PCV20) PNEUMOCOCCAL (2 - PPSV23 if available, else PCV20) [facility] Start: 11-05-2019 PNEUMOCOCCAL (2 - PPSV23 or PCV20) PNEUMOCOCCAL (2 - PPSV23 or PCV20) [facility] Start: 11-05-2019 Pneumococcal vaccination [facility] Start: 11-05-2019 Pneumococcal Vaccine: 50+ (2 of 2 - PPSV23) Pneumococcal Vaccine: 50+ (2 of 2 - PPSV23) [facility] Start: 11-05-2019 Pneumococcal Vaccine: 50+ (2 of 2 - PPSV23, PCV20, or PCV21) Pneumococcal Vaccine: 50+ (2 of 2 - PPSV23, PCV20, or PCV21) [facility] Start: 2019 RSV Vaccine (1 - 1-dose 60+ series) RSV Vaccine (1 - 1-dose 60+ series) [facility] Start: 2019 RSV Vaccine (1 - Risk 60-74 years 1-dose series) RSV Vaccine (1 - Risk 60-74 years 1-dose series) [facility] Start: 2009 SHINGRIX VACCINE (1 of 2) SHINGRIX VACCINE (1 of 2) [facility] Start: 2004 COLOGUARD (FIT-DNA) COLOGUARD (FIT-DNA) [facility] Start: [address] COLONOGRAPHY [facility] Start: 2004 FECAL OCCULT BLOOD FECAL OCCULT BLOOD [facility] Start: 2004 Screening for malignant neoplasm of colon [facility] Start: 2004 SIGMOIDOSCOPY SIGMOIDOSCOPY [facility] Start: 1989 Zoledronic acid therapy ALPHA-1 ANTITRYPSIN DEFICIENCY SCREENING [facility] Start: 1978 SHINGRIX VACCINE (1 of 2) SHINGRIX VACCINE (1 of 2) [facility] Start: 1978 TWO PNEUMOVAX 5 YEARS APART PRIOR TO AGE 65 (#1) TWO PNEUMOVAX 5 YEARS APART PRIOR TO AGE 65 (#1) [facility] Start: 1977 ANNUAL PCP TEAM CHRONIC DISEASE VISIT ANNUAL PCP TEAM CHRONIC DISEASE VISIT [facility] Start: 1977 Anxiety Screening Anxiety Screening [facility] Start: 1977 BP CONTROLLED (<130/80) BP CONTROLLED (<130/80) [facility] Start: 1977 Depression Screening Depression Screening [facility] Start: 1959 Abdominal aortic aneurysm screening Abdominal Aortic Aneurysm Screening [facility] Start: 1959 Dental Oral Exam Dental Oral Exam [facility] Start: 1959 Dental Perio Probing Dental Perio Probing [facility] Start: 1959 Dental Prophylaxis Dental Prophylaxis [facility] Start: 1959 Dental X-Ray: Bitewings Dental X-Ray: Bitewings [facility] Start: 1959 Dental X-Ray: FMX/Kessler Dental X-Ray: FMX/Kessler [facility] Start: 1959 Periodontal Maintenance Periodontal Maintenance [facility] End: 02-11-2023 25-hydroxyvitamin D3 [Mass/volume] in Serum or Plasma VITAMIN D 25 HYDROXY Lab Routine Cirrhosis of liver with ascites, unspecified hepatic cirrhosis type (HCC) Vitamin D deficiency Every 3 months for 4 Occurrences starting 02/11/2022 until 02/11/2023 [facility] Work Phone: Comment on above: Every 3 months for 4 Occurrences startin g 02/11/2022 until 02/11/2023 End: 06-29-2022 Abdom paracentesis dx/ther w/imaging guidance ABDOM PARACENTESIS DX/THER W IMAGING GUIDANCE Endoscopy Routine Other ascites Once per week for 52 Occurrences starting 06/29/2021 until 06/29/2022 [facility] Work Phone: Comment on above: Once per week for 52 Occurrences startin g 06/29/2021 until 06/29/2022 Abdom paracentesis d x/ther w/imaging guidance IMAGING GUIDED PARACENTESIS Radiology Routine Unilateral inguinal hernia without obstruction or gangrene, recurrence not specified Ordered: 03/17/2022 [facility] Work Phone: Comment on above: Ordered: 03/17/2022 End: 03-17-2023 Abdom paracentesis dx/ther w/imaging guidance ABDOM PARACENTESIS DX/THER W IMAGING GUIDANCE Endoscopy Routine Cirrhosis of liver with ascites, unspecified hepatic cirrhosis type (HCC) Once per week for 52 Occurrences starting 03/17/2022 until 03/17/2023 [facility] Work Phone: Comment on above: Once per week for 52 Occurrences startin g 03/17/2022 until 03/17/2023 ALLOGEN HLA-AB SUM RPT ALLOGEN H LA-AB SUM RPT Lab Routine 04/29/2022 9:46 AM [facility] End: 02-11-2023 [id number] [Mass/volume] in Serum or Plasma ALPHA FETOPROTEIN BL Lab Routine Cirrhosis of liver with ascites, unspecified hepatic cirrhosis type (HCC) Every 6 months for 2 Occurrences starting 02/11/2022 until 02/11/2023 [facility] Work Phone: Comment on above: Every 6 months for 2 Occurrences startin g 02/11/2022 until 02/11/2023 Bacteria identified in Body fluid by Culture BODY FLUID CULTURE AND GRAM STAIN Microbiology Routine Other ascites Cirrhosis of liver with ascites, unspecified hepatic cirrhosis type (HCC) 03/22/2022 9:12 AM [email or web address] [facility] Work Phone: Bacteria identified in Unspecified specimen by Anaerobe culture [facility] Work Phone: Comment on above: Release Upon Ordering for 1 Occurrences starting 03/22/2022 End: 02-11-2023 Basic metabolic 2000 panel - Serum or Plasma BASIC METABOLIC PNL Lab Routine Cirrhosis of liver with ascites, unspecified hepatic cirrhosis type (HCC) Once per week for 52 Occurrences starting 02/11/2022 until 02/11/2023 [facility] Work Phone: Comment on above: Once per week for 52 Occurrences startin g 02/11/2022 until 02/11/2023 Biopsy liver needle percutaneous IMAGING GUIDED BIOPSY LIVER Radiology HUSSEIN Liver replaced by transplant (HCC) Ordered: 11/15/2022 [facility] Work Phone: Comment on above: Ordered: 11/15/2022 End: 02-11-2023 CBC W Auto Differential panel - Blood CBC + DIFF Lab Routine Cirrhosis of liver with ascites, unspecified hepatic cirrhosis type (HCC) Once per week for 52 Occurrences starting 02/11/2022 until 02/11/2023 [facility] Work Phone: Comment on above: Once per week for 52 Occurrences startin g 02/11/2022 until 02/11/2023 End: 05-13-2023 CBC W Auto Differential panel - Blood CBC + DIFF Lab Routine Liver replaced by transplant (HCC) 2x per week for 100 Occurrences starting 05/13/2022 until 05/13/2023 [facility] Work Phone: Comment on above: 2x per week for 100 Occurrences starting 05/13/2022 until 05/13/2023 End: 04-08-2025 CBC W Auto Differential panel - Blood COMPLETE BLOOD COUNT AND DIFFERENTIAL Lab Routine Liver replaced by transplant (HCC) Every other week for 50 Occurrences starting 04/08/2024 until 04/08/2025 [facility] Work Phone: Comment on above: Every other week for 50 Occurrences star ting 04/08/2024 until 04/08/2025 End: 05-13-2023 CMV DNA DETECTION AND QUANT CMV DNA DETECTION AND QUANT Lab Routine Liver replaced by transplant (HCC) Once per week for 50 Occurrences starting 05/13/2022 until 05/13/2023 [facility] Work Phone: Comment on above: Once per week for 50 Occurrences startin g 05/13/2022 until 05/13/2023 End: 05-13-2023 Comprehensive metabolic 2000 panel - Serum or Plasma COMP METABOLIC PANEL Lab Routine Liver replaced by transplant (HCC) 2x per week for 100 Occurrences starting 05/13/2022 until 05/13/2023 [facility] Work Phone: Comment on above: 2x per week for 100 Occurrences starting 05/13/2022 until 05/13/2023 End: 04-08-2025 Comprehensive metabolic 2000 panel - Serum or Plasma COMPREHENSIVE METABOLIC PANEL Lab Routine Liver replaced by transplant (HCC) Every other week for 50 Occurrences starting 04/08/2024 until 04/08/2025 [facility] Comment on above: Every other week for 50 Occurrences star ting 04/08/2024 until 04/08/2025 End: 04-17-2023 Ct abdomen & pelvis w/o contrast material CT ABD/PEL WO IVCON Radiology Routine Unilateral inguinal hernia without obstruction or gangrene, recurrence not specified 1 Occurrences starting 03/17/2022 until 04/17/2023 [facility] Work Phone: Comment on above: 1 Occurrences starting 03/17/2022 until 04/17/2023 End: 08-12-2023 Ct abdomen & pelvis w/o contrast material CT ABD/PEL WO IVCON Radiology Routine Unilateral inguinal hernia without obstruction or gangrene, recurrence not specified 1 Occurrences starting 07/13/2022 until 08/12/2023 [facility] Work Phone: Comment on above: 1 Occurrences starting 07/13/2022 until 08/12/2023 End: 05-13-2023 Ct abdomen w/contrast material CT LIVER W IVCON Radiology Routine Cirrhosis of liver with ascites, unspecified hepatic cirrhosis type (HCC) 1 Occurrences starting 04/13/2022 until 05/13/2023 [facility] Work Phone: Comment on above: 1 Occurrences starting 04/13/2022 until 05/13/2023 End: 08-06-2022 Ct thorax w/o contrast material CT CHEST WO IVCON Radiology Routine Lung nodules 1 Occurrences starting 07/07/2021 until 08/06/2022 [facility] Work Phone: Comment on above: 1 Occurrences starting 07/07/2021 until 08/06/2022 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 [facility] Work Phone: Comment on above: Release Upon Ordering for 1 Occurrences starting 03/22/2022, 1 completed End: 08-11-2022 Dup-scan artl grey abdl/pel/scrot&/rpr orgn com US DOPPLER COMPLETE Radiology Routine Cirrhosis of liver with ascites, unspecified hepatic cirrhosis type (HCC) 1 Occurrences starting 07/12/2021 until 08/11/2022 [facility] Work Phone: Comment on above: 1 Occurrences starting 07/12/2021 until 08/11/2022 End: 08-12-2022 Dup-scan artl grey abdl/pel/scrot&/rpr orgn com US DOPPLER COMPLETE Radiology Routine Cirrhosis of liver with ascites, unspecified hepatic cirrhosis type (HCC) 1 Occurrences starting 07/13/2021 until 08/12/2022 [facility] Work Phone: Comment on above: 1 Occurrences starting 07/13/2021 until 08/12/2022 End: 10-18-2022 ECG COMPLETE ECG COMPLETE ECG Routine Preoperative examination Unilateral inguinal hernia without obstruction or gangrene, recurrence not specified 1 Occurrences starting 10/19/2021 until 10/18/2022 [facility] Work Phone: Comment on above: 1 Occurrences starting 10/19/2021 until 10/18/2022 End: 11-11-2022 ECG COMPLETE ECG COMPLETE ECG Routine Preoperative examination Unilateral inguinal hernia without obstruction or gangrene, recurrence not specified 1 Occurrences starting 11/11/2021 until 11/11/2022 [facility] Work Phone: Comment on above: 1 Occurrences starting 11/11/2021 until 11/11/2022 ECG COMPLETE ECG COMPLETE ECG 11/11/2021 9:26 AM EDT [facility] End: 01-10-2023 ECG COMPLETE ECG COMPLETE ECG Routine Preoperative examination Unilateral inguinal hernia without obstruction or gangrene, recurrence not specified 1 Occurrences starting 01/10/2022 until 01/10/2023 [facility] Work Phone: Comment on above: 1 Occurrences starting 01/10/2022 until 01/10/2023 End: 05-13-2023 Gamma glutamyl transferase [Enzymatic activity/volume] in Serum or Plasma GGT BLD Lab Routine Liver replaced by transplant (HCC) 2x per week for 100 Occurrences starting 05/13/2022 until 05/13/2023 [facility] Work Phone: Comment on above: 2x per week for 100 Occurrences starting 05/13/2022 until 05/13/2023 End: 04-08-2025 Gamma glutamyl transferase [Enzymatic activity/volume] in Serum or Plasma GGT Lab Routine Liver replaced by transplant (HCC) Every other week for 50 Occurrences starting 04/08/2024 until 04/08/2025 [facility] Comment on above: Every other week for 50 Occurrences star ting 04/08/2024 until 04/08/2025 Guidance for percuta neous biopsy of Liver IMAGING GUIDED BIOPSY LIVER Radiology STAT Elevated LFTs Ordered: 02/06/2024 [facility] Work Phone: Comment on above: Ordered: 02/06/2024 End: 02-11-2023 Hepatic function 1999 panel - Serum or Plasma HEPATIC FUNCTION PNL Lab Routine Cirrhosis of liver with ascites, unspecified hepatic cirrhosis type (HCC) Once per week for 52 Occurrences starting 02/11/2022 until 02/11/2023 [facility] Work Phone: Comment on above: Once per week for 52 Occurrences startin g 02/11/2022 until 02/11/2023 End: 05-13-2023 Lipid 1995 panel - Serum or Plasma LIPID PANEL BASIC Lab Routine Liver replaced by transplant (HCC) Every 3 months for 4 Occurrences starting 05/13/2022 until 05/13/2023 [facility] Work Phone: Comment on above: Every 3 months for 4 Occurrences startin g 05/13/2022 until 05/13/2023 End: 04-08-2025 Lipid 1996 panel - Serum or Plasma LIPID PANEL BASIC Lab Routine Liver replaced by transplant (HCC) Every 6 months for 2 Occurrences starting 04/08/2024 until 04/08/2025 [facility] Comment on above: Every 6 months for 2 Occurrences startin g 04/08/2024 until 04/08/2025 End: 05-13-2023 Magnesium [Mass/volume] in Serum or Plasma MAGNESIUM BLD Lab Routine Liver replaced by transplant (HCC) 2x per week for 100 Occurrences starting 05/13/2022 until 05/13/2023 [facility] Work Phone: Comment on above: 2x per week for 100 Occurrences starting 05/13/2022 until 05/13/2023 Patient Education [facility] Work Phone: End: 05-13-2023 Phosphate [Mass/volume] in Serum or Plasma PHOSPHORUS INORGANIC Lab Routine Liver replaced by transplant (HCC) 2x per week for 100 Occurrences starting 05/13/2022 until 05/13/2023 [facility] Work Phone: Comment on above: 2x per week for 100 Occurrences starting 05/13/2022 until 05/13/2023 End: 04-08-2025 Phosphate [Mass/volume] in Serum or Plasma PHOSPHORUS INORGANIC Lab Routine Liver replaced by transplant (HCC) Every 6 months for 2 Occurrences starting 04/08/2024 until 04/08/2025 [facility] Comment on above: Every 6 months for 2 Occurrences startin g 04/08/2024 until 04/08/2025 End: 02-11-2023 PT panel - Platelet poor plasma by Coagulation assay PROTHROMBIN TIME/PT Lab Routine Cirrhosis of liver with ascites, unspecified hepatic cirrhosis type (HCC) Once per week for 52 Occurrences starting 02/11/2022 until 02/11/2023 [facility] Work Phone: Comment on above: Once per week for 52 Occurrences startin g 02/11/2022 until 02/11/2023 End: 02-12-2023 Radiologic exam chest 2 views XR CHEST 2V FRONTAL/LAT Radiology Routine Chronic rhinitis Pneumonia of right lower lobe due to infectious organism 1 Occurrences starting 01/13/2022 until 02/12/2023 [facility] Work Phone: Comment on above: 1 Occurrences starting 01/13/2022 until 02/12/2023 REFER FOR ADMIT INTERVIEW REFER FOR ADMIT INTERVIEW Procedures Routine Preoperative examination Unilateral inguinal hernia without obstruction or gangrene, recurrence not specified Ordered: 10/19/2021 [facility] Work Phone: Comment on above: Ordered: 10/19/2021 REFER FOR ADMIT INTERVIEW REFER FOR ADMIT INTERVIEW Procedures Routine Preoperative examination Unilateral inguinal hernia without obstruction or gangrene, recurrence not specified Ordered: 01/10/2022 [facility] Work Phone: Comment on above: Ordered: 01/10/2022 SPIROMETRY WITH DILA TOR IF OBSTRUCTED SPIROMETRY WITH DILATOR IF OBSTRUCTED PFT Routine Chronic rhinitis Pneumonia of right lower lobe due to infectious organism 02/11/2022 12:34 PM EST [facility] Work Phone: End: 05-13-2023 Tacrolimus [Mass/volume] in Blood TACROLIMUS/FK-506 BL Lab Routine Liver replaced by transplant (HCC) 2x per week for 100 Occurrences starting 05/13/2022 until 05/13/2023 [facility] Work Phone: Comment on above: 2x per week for 100 Occurrences starting 05/13/2022 until 05/13/2023 End: 04-08-2025 Tacrolimus [Mass/volume] in Blood TACROLIMUS/FK-506 BL Lab Routine Liver replaced by transplant (HCC) Every other week for 50 Occurrences starting 04/08/2024 until 04/08/2025 [facility] Comment on above: Every other week for 50 Occurrences star ting 04/08/2024 until 04/08/2025 End: 08-11-2022 US ABD LIVER VASCULAR US ABD LIVER VASCULAR Radiology Routine Cirrhosis of liver with ascites, unspecified hepatic cirrhosis type (HCC) 1 Occurrences starting 07/12/2021 until 08/11/2022 [facility] Work Phone: Comment on above: 1 Occurrences starting 07/12/2021 until 08/11/2022 End: 08-12-2022 US ABD LIVER VASCULAR US ABD LIVER VASCULAR Radiology Routine Cirrhosis of liver with ascites, unspecified hepatic cirrhosis type (HCC) 1 Occurrences starting 07/13/2021 until 08/12/2022 [facility] Work Phone: Comment on above: 1 Occurrences starting 07/13/2021 until 08/12/2022 End: 01-19-2023 Us abdominal real time w/image limited US ASCITES SURVEY Radiology Routine Other ascites 1 Occurrences starting 12/20/2021 until 01/19/2023 [facility] Work Phone: Comment on above: 1 Occurrences starting 12/20/2021 until 01/19/2023 End: 02-04-2023 Us abdominal real time w/image limited US ASCITES SURVEY Radiology Routine Cirrhosis of liver with ascites, unspecified hepatic cirrhosis type (HCC) 1 Occurrences starting 01/05/2022 until 02/04/2023 [facility] Work Phone: Comment on above: 1 Occurrences starting 01/05/2022 until 02/04/2023 End: 03-24-2023 Us abdominal real time w/image limited US ASCITES SURVEY Radiology Routine 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) 1 Occurrences starting 02/22/2022 until 03/24/2023 [facility] Work Phone: Comment on above: 1 Occurrences starting 02/22/2022 until 03/24/2023 End: 05-13-2023 Us scrotum & contents US SCROTUM AND CONTENTS Radiology Routine Unilateral inguinal hernia without obstruction or gangrene, recurrence not specified Hydrocele, unspecified hydrocele type 1 Occurrences starting 04/13/2022 until 05/13/2023 [facility] Work Phone: Comment on above: 1 Occurrences starting 04/13/2022 until 05/13/2023 [facility] Immunizations Immunization Date Immunization Notes Care Provider [facility] 03-05-2022 influenza, injectabl e, quadrivalent, preservative free Dayna Reyes MD Work Phone: [facility] 03-05-2022 influenza virus vaccine, unspecified formulation [facility] Work Phone: [facility] 02-18-2021 COVID-19 vaccine (UNSPECIFIED) Dayna Reyes MD Work Phone: [facility] Work Phone: 02-18-2021 COVID-19 vaccine, fu ll dose (MODERNA) Dayna Reyes MD Work Phone: [facility] 01-14-2021 Influenza, injectabl e, Madin [place] Canine Kidney, preservative free, quadrivalent Dayna Reyes MD Work Phone: [facility] 07-13-2020 COVID-19 vaccine (UNSPECIFIED) Dayna Reyes MD Work Phone: [facility] Work Phone: 07-13-2020 COVID-19 vaccine, fu ll dose (MODERNA) Dayna Reyes MD Work Phone: [facility] 06-16-2020 COVID-19 vaccine (UNSPECIFIED) Dayna Reyes MD Work Phone: [facility] Work Phone: 06-16-2020 COVID-19 vaccine, fu ll dose (MODERNA) Dayna Reyes MD Work Phone: [facility] Work Phone: 03-02-2020 Influenza, injectabl e, Madin [place] Canine Kidney, preservative free, quadrivalent Dayna Reyes MD Work Phone: [facility] 02-26-2020 hepatitis A vaccine, adult dosage Dayna Reyes MD Work Phone: [facility] 09-10-2019 hepatitis A vaccine, adult dosage Dayna Reyes MD Work Phone: [facility] 09-10-2019 pneumococcal conjuga te vaccine, 13 valent Dayna Reyes MD Work Phone: [facility] 09-10-2019 tetanus toxoid, reduced diphtheria toxoid, and acellular pertussis vaccine, adsorbed Dayna Reyes MD Work Phone: [facility] 07-26-2018 Hepatitis B vaccine (recombinant), CpG adjuvanted Dayna Reyes MD Work Phone: [facility] 07-03-2018 Hepatitis B vaccine (recombinant), CpG adjuvanted Dayna Reyes MD Work Phone: [facility] 12-28-2017 influenza, seasonal, injectable Dayna Reyes MD Work Phone: [facility] 01-17-2017 influenza virus vaccine, unspecified formulation Dayna Reyes MD Work Phone: [facility] Payers Date Payer Category Payer Self-pay [id number] 2024 [place] [id number] 2024 Medicare [id number] 2021 Medicare DEVOTED MEDICARE DEVOTED HEALTH [id number] 2021-Present [phone] [address] [place] [address] [employer] [id number] 2021 Medicare [id number] 2020 Unknown [id number] 2017 Unknown [id number] 2009 Unknown [id number] 1959 Unknown [id number]. 2.356 1959 Unknown [id number]. 2.356 1959 Unknown [id number]. 2.356 1959 Unknown [id number]. 2.356 1959 Unknown [id number] [id number]. 2.593 1959 Unknown [id number]. 2.593 1959 Unknown [id number] [id number]. 2.593 1959 Unknown [id number]. 2.593 Unknown [id number]. 2.277 Unknown [id number]. 2.277 Unknown [id number]. 2.277 Unknown [id number]. 2.277 Unknown [id number] Unknown HCAP/HFA/FAP Active [id number] Unknown [id number] [id number] Social History Date Type Detail Facility Start: 04-15-2021 End: 04-22-2022 Tobacco smoking status NHIS Ex-smoker [facility] Work Phone: Start: 05-30-1977 End: 04-03-2019 History of tobacco use Current smoker [facility] Work Phone: Start: 05-30-1977 End: 04-03-2019 History of tobacco use Cigarette Smoker [facility] Work Phone: Start: 04-15-2021 End: 08-03-2022 Cigarettes smoked current (pack per day) - Reported 2 [facility] Start: 04-15-2021 End: 07-07-2021 Tobacco use and exposure Former smokeless tobacco user [facility] Work Phone: History of tobacco use Snuff User [facility] Work Phone: Start: 04-21-2021 End: 02-07-2024 Alcohol intake Ex-drinker (finding) [facility] Start: 09-09-2019 History SDOH Alcohol Frequency 1 [facility] Start: 03-30-2021 Tobacco Comment Quite 03/02/2020 [facility] Start: 1960 Sex Assigned At Male [facility] Start: 03-22-2021 End: 03-04-2022 Exposure to SARS-CoV-2 (event) Not sure [facility] Start: 06-01-2021 Tobacco smoking status NHIS Smokes tobacco daily [facility] Work Phone: Start: 09-10-2021 End: 10-19-2021 Exposure to SARS-CoV-2 (event) Unable to assess [facility] Work Phone: Start: 11-11-2021 End: 04-20-2022 Tobacco use and exposure Smokeless tobacco non-user [facility] Start: 11-11-2021 History SDOH Alcohol Comment none since 2018 [facility] Start: 04-03-1979 Tobacco smoking status PAIS Occasional tobacco smoker [facility] Start: 09-09-2019 End: 08-03-2022 Alcohol Use Disorder Identification Test - Consumption [AUDIT-C] [facility] How often to you hav e a drink containing alcohol? Never [facility] Start: 10-13-2014 Average Number of Drinks Not on file [facility] Work Phone: Start: 06-02-2020 Gender identity Identifies as male gender (finding) [facility] Medical Equipment Procedure Code Equipment Code Equipment Origin al Text Equipment Identifier Dates Lens Iol Ultrase rt 20 - [id number] Start: 10-19-2018 Lens Iol Ultrase rt 19.5 - [id number] Start: 11-06-2018 Mesh Srg Pariete ne Pp Macro [id number] - [id number] Start: 09-11-2018 Mesh Parietene Macroporous [id number] Surgical - [id number] Start: 03-04-2022 Start: 05-12-2022 End: 05-27-2022 Comment on above: Use 1 each as instru cted to check blood sugar level three times a day Use 1 each as direct ed to check blood sugar level three times a day Functional Status Date Assessment Result Facility 03-05-2022 Are you deaf, or do you have serious difficulty hearing No 03/05/2022 10:37 AM Des Garvey RN [facility] 03-05-2022 Are you blind, or do you have serious difficulty seeing, even when wearing glasses No 03/05/2022 10:37 AM Des Garvey RN [facility] 03-05-2022 Do you have serious difficulty walking or climbing stairs No 03/05/2022 10:37 AM Des Garvey RN No [facility] 03-05-2022 Do you have difficul ty dressing or bathing No 03/05/2022 10:37 AM Des Garvey RN No [facility] 03-05-2022 Because of a physica l, mental, or emotional condition, do you have difficulty doing errands alone such as visiting a physician's office or shopping No 03/05/2022 10:37 AM Des Garvey RN No [facility] Mental Status Date Assessment Result Facility 03-05-2022 Because of a physica l, mental, or emotional condition, do you have serious difficulty concentrating, remembering, or making decisions No 03/05/2022 10:37 AM Des Garvey RN No [facility] Clinical Notes 07-03-2018 to 09-16-2024 Result Encounter Note - Kat Leal RN - 09/16/2024 7:55 AM EDTResult Encounter Note - Kat Leal RN - 09/16/2024 7:55 AM Rebecca Green APRN.[facility] - 02/20/2024 11:04 AM EST Note Date & Type Note Facility 09-16-2024 Progress note Formatting of t his note might be different from the original. Lab work reviewed and is consistent with recent lab values. Will continue to monitor labs. Kat Leal RN, [place] Liver Change Of Address Clerk [facility] 09-16-2024 Miscellaneous Notes Lab work reviewed and is consistent with recent lab values. Will continue to monitor labs. Kat Leal RN, [place] Liver Change Of Address Clerk Lab work reviewed and is consistent with recent lab values. Will continue to monitor labs. Kat Leal RN, BSN Liver Change Of Address Clerk documented in this encounter [facility] 09-13-2024 Progress note Formatting of t his note might be different from the original. Lab work reviewed and is consistent with recent lab values. Will continue to monitor labs. Kat Leal RN, BSN Liver Change Of Address Clerk [facility] 08-27-2024 Progress note Formatting of t his note might be different from the original. Results reviewed with Rebecca Mascorro CNP, no changes at this time. Will continue to monitor labs. Kat Leal RN, BSN [facility] 08-27-2024 Miscellaneous Notes Results reviewed with Rebecca Mascorro CNP, no changes at this time. Will continue to monitor labs. Kat Leal RN, BSN Results reviewed with Diane Vallecillo CNP, no changes at this time. Will continue to monitor labs. Kat Leal RN, BSN Lab work reviewed and is consistent with recent lab values. Will continue to monitor labs. Kat Leal RN, BSN Liver Change Of Address Clerk documented in this encounter [facility] 08-23-2024 Progress note Formatting of t his note might be different from the original. Results reviewed with Diane Vallecillo CNP, no changes at this time. Will continue to monitor labs. Kat Leal RN, BSN [facility] 08-23-2024 Progress note Formatting of t his note might be different from the original. Lab work reviewed and is consistent with recent lab values. Will continue to monitor labs. Kat Leal RN, BSN Liver Change Of Address Clerk [facility] 08-13-2024 Progress note Formatting of t his note might be different from the original. Results reviewed with Rebecca Mascorro CNP, no changes at this time. Will continue to monitor labs. Kat Leal RN, BSN [facility] 08-13-2024 Miscellaneous Notes Results reviewed with Rebecca Mascorro CNP, no changes at this time. Will continue to monitor labs. Kat Leal RN BSN Results reviewed. No change to the plan of care at this time. documented in this encounter [facility] 08-12-2024 Progress note Formatting of t his note might be different from the original. Results reviewed. No change to the plan of care at this time. [facility] 07-16-2024 Progress note Formatting of t his note might be different from the original. Results reviewed. No change to the plan of care at this time. [facility] 07-16-2024 Miscellaneous Notes Results reviewed. No change to the plan of care at this time. Results reviewed. No change to the plan of care at this time. documented in this encounter [facility] 07-15-2024 Progress note Formatting of t his note might be different from the original. Results reviewed. No change to the plan of care at this time. [facility] 06-18-2024 Progress note Formatting of t his note might be different from the original. Lab work reviewed and is consistent with recent lab values. Will continue to monitor labs. Kat Leal RN, BSN Liver Change Of Address Clerk [facility] 06-18-2024 Miscellaneous Notes Lab work reviewed and is consistent with recent lab values. Will continue to monitor labs. Kat Leal RN, BSN Liver Change Of Address Clerk Lab work reviewed and is consistent with recent lab values. Will continue to monitor labs. Kat Leal RN, BSN Liver Change Of Address Clerk Lab work reviewed and is consistent with recent lab values. Will continue to monitor labs. Kat Leal RN, BSN Liver Change Of Address Clerk documented in this encounter [facility] 06-17-2024 Progress note Formatting of t his note might be different from the original. Lab work reviewed and is consistent with recent lab values. Will continue to monitor labs. Kat Leal RN BSN Liver Change Of Address Clerk [facility] 06-17-2024 Progress note Formatting of t his note might be different from the original. Lab work reviewed and is consistent with recent lab values. Will continue to monitor labs. Kat Leal RN, BSN Liver Change Of Address Clerk [facility] 05-21-2024 Progress note Formatting of t his note might be different from the original. Lab work reviewed and is consistent with recent lab values. Will continue to monitor labs. Kat Leal RN, BSN Liver Change Of Address Clerk [facility] 05-21-2024 Miscellaneous Notes Lab work reviewed and is consistent with recent lab values. Will continue to monitor labs. Kat Leal RN BSN Liver Change Of Address Clerk Lab work reviewed and is consistent with recent lab values. Will continue to monitor labs. Kat Leal RN BSN Liver Change Of Address Clerk Lab work reviewed and is consistent with recent lab values. Will continue to monitor labs. Kat Leal RN BSN Liver Change Of Address Clerk documented in this encounter [facility] 05-20-2024 Progress note Formatting of t his note might be different from the original. Lab work reviewed and is consistent with recent lab values. Will continue to monitor labs. Kat Leal RN, BSN Liver Change Of Address Clerk [facility] 05-20-2024 Progress note Formatting of t his note might be different from the original. Lab work reviewed and is consistent with recent lab values. Will continue to monitor labs. Kat Leal RN, BSN Liver Change Of Address Clerk [facility] 03-26-2024 Telephone encounter Note I reviewed patient's [...] electronically send to pharmacy. Kat Leal RN [facility] 03-26-2024 Miscellaneous Notes I reviewed patient's tacrolimus [...] Kat Leal RN documented in this encounter [facility] 03-12-2024 Telephone encounter Note I reviewed patient's [...] electronically send to pharmacy. Kat Leal RN [facility] 03-12-2024 Miscellaneous Notes I reviewed patient's elevated [...] Kat Leal RN documented in this encounter [facility] 02-20-2024 History of Presen t illness Narrative Pathology findings from liver biopsy dated 02/07/24 reviewed at Pathology Conference and shows mild steatosis. No TCMR. . Rebecca Mascorro APRN.CNP February 13, 2024 documented in this encounter [facility] 02-08-2024 Telephone encounter Note I called and reviewed patient's liver biopsy results with him. Reviewed that there was some mild steatosis, and that he should work on a healthy diet and exercise. He has his labs already scheduled to be drawn on Monday. Told him we would see his lab work Monday and make a plan from there. Kat Leal (Cassie) RN, BSN, [facility] Liver Change Of Address Clerk [facility] 02-08-2024 Miscellaneous Notes I called and reviewed patient's liver biopsy results with him. Reviewed that there was some mild steatosis, and that he should work on a healthy diet and exercise. He has his labs already scheduled to be drawn on Monday. Told him we would see his lab work Monday and make a plan from there. Kat Leal (Cassie) RN, BSN, [facility] Liver Change Of Address Clerk documented in this encounter [facility] 02-06-2024 Telephone encounter Note Biopsy scheduled for 02/07/24. Transplant team notified [facility] 02-06-2024 Miscellaneous Notes Biopsy scheduled for 02/07/24. Transplant team notified BX. COORDINATOR INFORMATION Approved to be scheduled in LAB RESULTS: PT INR (no units) Date [...] TIME: 2:14 PM RADIOLOGY CALL CENTER INTAKE DEPUTY CLERK OF COURT: daja oliva EXT: na DATE: 1104 TIME: TRACKING #. na REQUESTING PERSON: sara leal PHONE/PAGER: na REQUESTING STAFF: yolette vallecillo PHONE/PAGER: new SPECIFICS [...] for pathology (For example: send for ER, CT, HER2/tiana or possible lymphoma send in RPMI [...] TO EVALUATE APPROPRIATENESS/FEASIBILITY OF THE REQUEST) IMAGING: [facility] (If the imaging was obtained outside the [facility] system, then it needs to be submitted for review prior to approval.) Note to all persons requesting biopsies: All biopsy requests will be scheduled as quickly as possible, based on the clinical urgency, availability of appointment times, the need to hold anti-thrombolytic therapy (aspirin, blood thinners) and the patient s schedule, including the need for an available jinriksha driver. If a percutaneous biopsy or drainage is not felt to be safe or an alternative method for establishing a diagnosis is possible, this will be discussed directly with the requesting physician. documented in this encounter [facility] 02-06-2024 Telephone encounter Note BX. COORDINATOR INFORMATION [...] DATE: February 06, 2024 TIME: 2:14 PM [facility] 02-06-2024 Telephone encounter Note RADIOLOGY CALL CENTER INTAKE DEPUTY CLERK OF COURT: daja oliva EXT: na DATE: 1104 TIME: 1030a TRACKING #. na REQUESTING PERSON: sara leal PHONE/PAGER: na REQUESTING STAFF: yolette vallecillo PHONE/PAGER: new SPECIFICS [...] for pathology (For example: send for ER, CT, HER2/tiana or possible lymphoma send in RPMI [...] TO EVALUATE APPROPRIATENESS/FEASIBILITY OF THE REQUEST) IMAGING: [facility] (If the imaging was obtained outside the [facility] system, then it needs to be submitted for review prior to approval.) Note to all persons requesting biopsies: All biopsy requests will be scheduled as quickly as possible, based on the clinical urgency, availability of appointment times, the need to hold anti-thrombolytic therapy (aspirin, blood thinners) and the patient s schedule, including the need for an available jinriksha driver. If a percutaneous biopsy or drainage is not felt to be safe or an alternative method for establishing a diagnosis is possible, this will be discussed directly with the requesting physician. [facility] Work Phone: 02-06-2024 Telephone encounter Note I reviewed patient's elevated LFTs with Rebecca Mascorro CNP, who ordered for patient to have a liver biopsy. I called and reviewed with patient, who stated his understanding and agreement. Reviewed biopsy instructions with patient. Kat Leal RN (Cassie), BSN, [facility] Liver Change Of Address Clerk [facility] 02-06-2024 Miscellaneous Notes I reviewed patient's elevated LFTs with Rebecca Mascorro CNP, who ordered for patient to have a liver biopsy. I called and reviewed with patient, who stated his understanding and agreement. Reviewed biopsy instructions with patient. Kat Leal RN (Cassie), BSN, [facility] Liver Change Of Address Clerk documented in this encounter [facility] 02-06-2024 Telephone encounter Note [facility], [...] sooner PRN. Jammie Cantu RN (Molly), BSN, [facility] Liver Change Of Address Clerk [facility] 02-06-2024 Miscellaneous Notes Pts [facility] results, [...] with report or sooner PRN. Jammie Cantu (Molly), RN, BSN, [facility] Liver Change Of Address Clerk documented in this encounter [facility] 01-30-2024 Telephone encounter Note I reviewed patient's slightly elevated LFTs with Rebecca Mascorro CNP, who ordered for patient to repeat lab work on Monday. I called and discussed with patient, who stated his understanding. He'll call back with further questions. Kat Leal (Cassie) RN, BSN, [facility] Liver Change Of Address Clerk [facility] 01-30-2024 Miscellaneous Notes I reviewed patient's slightly elevated LFTs with Rebecca Mascorro CNP, who ordered for patient to repeat lab work on Monday. I called and discussed with patient, who stated his understanding. He'll call back with further questions. Kat Leal RN (Cassie), BSN, [facility] Liver Change Of Address Clerk documented in this encounter [facility] 01-16-2024 Telephone encounter Note I reviewed patient's [...] electronically send to pharmacy. Kat Leal RN [facility] 01-16-2024 Miscellaneous Notes I reviewed patient's LFTs [...] Kat Leal RN documented in this encounter [facility] 07-12-2023 Miscellaneous Notes Patient's request for medication is as follows: Requested Prescriptions Pending Prescriptions Disp Refills ursodiol (ACTIGALL) 300 mg capsule 60 capsule 11 Sig: Take 1 capsule by mouth two times a day. TAKE ONE(1) CAPSULE DAILY WITH MEALS. Please approve the above prescription(s) to electronically send to pharmacy. Kat Leal RN documented in this encounter [facility] 05-25-2023 Miscellaneous Notes Patient phones requesting refills as follows: Requested Prescriptions Pending Prescriptions Disp Refills sulfamethoxazole-trimethoprim (BACTRIM DS) 800-160 mg per tablet 14 tablet 11 Sig: Take 1 tablet by mouth every Monday, Monday, and Monday. NIKHIL Moreland, [facility] Liver Change Of Address Clerk Patient phones requesting refills as follows: Requested Prescriptions Pending Prescriptions Disp Refills sulfamethoxazole-trimethoprim (BACTRIM DS) 800-160 mg per tablet 12 tablet 11 Sig: Take 1 tablet by mouth every Monday, Monday, and Monday. Please review and advise. Vandana Styles documented in this encounter [facility] 05-22-2023 Miscellaneous Notes Spoke with patient and discussed that lab orders have . Agreed I will enter new standing lab orders. NIKHIL Moreland, [facility] Liver Change Of Address Clerk Jordan called in requesting that Lab orders. Jordan can be reached at [phone]. documented in this encounter [facility] 05-11-2023 Miscellaneous Notes I called and spoke with patient. Advised him that he needs to obtain blood pressure medication from his PCP or product development worker. He stated his understanding. Will provide one [...] request to you. documented in this encounter [facility] 01-17-2023 Miscellaneous Notes Lab work reviewed and is consistent with recent lab values. Will continue to monitor labs. Kat Leal RN, BSN Liver Change Of Address Clerk Lab work reviewed and is consistent with recent lab values. Will continue to monitor labs. Kat Leal RN, BSN Liver Change Of Address Clerk documented in this encounter [facility] 01-11-2023 Miscellaneous Notes Lab work reviewed and is consistent with recent lab values. Will continue to monitor labs. OWEN Thompson RNN Liver Change Of Address Clerk documented in this encounter [facility] 12-09-2022 Instructions Jane Hernandez PA-C - 12/09/2022 2:11 PM EDT Consult to physical therapy Please follow-up with me in 6 weeks or sooner if symptoms change or worsen. This can be a telephone or virtual visit. Consider injections moving forward. Thank you, Jane Hernandez PA-C [phone] documented in this encounter [facility] 12-09-2022 History of Presen t illness Narrative Images from the original note were not included. SPINE SURGERY OUTPATIENT CONSULT This is an in-person visit. SERVICE DATE: 12/09/2022 PCP: Jordan Azar MD REFERRING PROVIDER: Tiffany Bucio MD [address] [place] [phone] Consult requested for an opinion regarding the [...] 1 tablet by mouth once daily. lancets (Catapult GeneticsTOUCH DELICA PLUS LANCET) 33 gauge Use 1 [...] DATE: December 09, 2022 TIME: 1:49 PM PAGER:[phone] documented in this encounter [facility] 11-20-2022 Miscellaneous Notes Patient called stating he had a liver biopsy on Monday. He took the dressing off today and noted it is red around the site. Denies fever, pain, swelling or drainage. Instructed to continue to monitor and if any of the described symptoms develop, he should notify the office again. NIKHIL Moreland, [facility] Liver Change Of Address Clerk documented in this encounter [facility] 11-15-2022 History of Presen t illness Narrative C/o Low back pain, left leg pain, difficulty walking, left leg numbness and weakness. CMT: -Senior Finance Manager -Oral Steroids -Muscle Relaxants -ES Tylenol Hx of lumbar surgery in 2013 at [facility]. Hx of lumbar surgery at [facility]. 2nd opinion - not offered surgery. Lumbar MRI reveals right L5-S1 foraminal stenosis. New Patient appt with me - in person or virtually. Jane Hernandez PA-C Patient name: Jordan Aguilar Are you being referred by a [facility] Provider or Pain Management Provider at [facility]? No If answer is YES please schedule [...] facility where the MRI/CT/myelogram was completed: [place] [address] MRI/CT/myelogram viewable in Epic: No If not, please provide [phone] to fax in imaging reports for review. Also, please inform patient to hand carry imaging disc to appointment. XR (spine) within 12 months: Yes If YES, please ask for the name/address of the facility where the XR was completed: [place] [address] Dr. Gama's patients: Have you had previous [...] facility/address of where the surgery was completed: 2012, Lumbar surgery [facility] [address], [place] [address] Lumbar surgery at [facility] also Additional Comments [phone] documented in this encounter [facility] 11-15-2022 Miscellaneous Notes Biopsy scheduled for 11/17/22 [...] 6 hours as needed for pain. lancets (PSS SystemsUCH DELICA PLUS LANCET) 33 gauge Use 1 each as directed to check blood sugar level three times a day blood sugar diagnostic (PSS SystemsUCH VERIO TEST STRIPS) test strip Use 1 [...] TIME: 8:20 AM RADIOLOGY CALL CENTER INTAKE DEPUTY CLERK OF COURT: daja oliva EXT: na DATE: 814 TIME: [...] for pathology (For example: send for ER, CT, HER2/tiana or possible lymphoma send in RPMI [...] TO EVALUATE APPROPRIATENESS/FEASIBILITY OF THE REQUEST) IMAGING: [facility] (If the imaging was obtained outside the [facility] system, then it needs to be submitted for review prior to approval.) Note to all persons requesting biopsies: All biopsy requests will be scheduled as quickly as possible, based on the clinical urgency, availability of appointment times, the need to hold anti-thrombolytic therapy (aspirin, blood thinners) and the patient s schedule, including the need for an available jinriksha driver. If a percutaneous biopsy or drainage is not felt to be safe or an alternative method for establishing a diagnosis is possible, this will be discussed directly with the requesting physician. documented in this encounter [facility] 11-15-2022 Miscellaneous Notes Reviewed and approved. Diane Vallecillo CNP I reviewed patient's LFTs with Diane Vallecillo CNP, who ordered for patient to receive liver biopsy. I called and explained this to patient, who stated his understanding. He will call back with questions or as needed. Kat Leal RN (Cassie), BSN Liver Change Of Address Clerk documented in this encounter [facility] 11-07-2022 Miscellaneous Notes I reviewed patient's lab [...] Kat Leal RN documented in this encounter [facility] 11-01-2022 Evaluation note Encounter Date Diagnosis Assessment [...] hepatic coma, unspecified chronicity (ICD-10 - K72.90) I-Pulse Other [id number] History of Present illness Narrative* Diane Vallecillo APRN.MANAGER OF TRAINING - 10/31/2022 10:06 AM EDT VIRTUAL VISIT PROGRESS NOTE This is a virtual visit using Audio only. It required patient-provider interaction for the medical decision making as documented below. I have communicated my name and active licensure. The patient's identity and physical location wereverified at the time of this visit. Either the patient or their legal district sales representative has been informed of the [...] 6 hours as needed for pain. lancets (Catapult GeneticsTOUCH DELICA PLUS LANCET) 33 gauge Use 1 each as directed to check blood sugar level three times a day blood sugar diagnostic (PSS SystemsUCH VERIO TEST STRIPS) test strip Use 1 [...] presents via phone (soundwould not work on Zoom) for his 6 mo post txp follow [...] care coordination (not separately reported) Diane Vallecillo APRN.ROMA [facility] Miscellaneous Notes* Result Encounter Note - Kat Leal RN - 10/05/2022 3:42 PM EDT Lab work reviewed and is consistent with recent lab values. Will continue to monitor labs. Kat Leal RN, BSN Liver Change Of Address Clerk * Result Encounter Note - Kat Leal RN - 10/05/2022 8:52 AM EDT Lab work reviewed and is consistent with recent lab values. Will continue to monitor labs. OWEN Thompson RNN Liver Change Of Address Clerk [facility] Miscellaneous Notes* Telephone Encounter - Francois German RN - 09/22/2022 11:25 AM EDT Patient is out of 0.5 mg tacrolimus capsules. He should be getting more by tonight, but he is asking what to do if not. He was only able to take 1 mg tacrolimus this morning. I instructed to take 1 mg in the morning and 2 mg in the evening until 0.5 mg capsules arrive. She repeated instructions to confirm understanding. NIKHIL Moreland, [facility] Liver Change Of Address Clerk * Telephone Encounter - Warren Ross Coord - 09/22/2022 11:09 AM EDT Sonu called to speak to his digital coordinator about his Tacro medication. Please call [phone]. [facility] Miscellaneous Notes* Telephone Encounter - Kat Leal [...] pharmacy. Kat Leal RN [facility] Miscellaneous Notes* Result Encounter Note - Kat Leal RN - 09/01/2022 12:20 PM EDT Results reviewed with Dr. Faye, see encounter for details. Will continue to monitor labs. Kat Leal RN, BSN Liver Change Of Address Clerk [facility] Miscellaneous Notes* Telephone Encounter - Kat Leal [...] prescription(s) to electronically send to pharmacy. Kat Leal, RN [facility] History of Present illness Narrative* Kulwinder Landry [...] documented in the resident s note. * Adihtya Cobos MD - 08/04/2022 11:20 AM EDT [...] 2022 TIME: 11:20 AM [facility] Nurse Note* Trina Brandt Ma - 08/04/2022 10:24 AM EDT What is the reason for your visit today? est Who is your referring physician? Dr. Landry Are you having poor oral intake? NO Have you had unintentional weight loss of 15 lbs/7 Kg in the last 3-6 months? NO Bowels: regular Wound: clean & dry Temperature: No Drains: No documented [facility] History of Present illness Narrative* Diane Vallecillo APRN.CNP - 08/03/2022 1:14 PM EDT POST LIVER TRANSPLANT FOLLOW UP Jordan Aguilar [id number] Date of Transplant: 05/03/22 Original liver diagnosis: [...] 6 hours as needed for pain. lancets (Catapult GeneticsTOUCH DELICA PLUS LANCET) 33 gauge Use 1 each as directed to check blood sugar level three times a day blood sugar diagnostic (Catapult GeneticsTOUCH VERIO TEST STRIPS) test strip Use 1 [...] mo. this can be a VV Diane S Vallecillo, POLICE WORKER.ROMA documented in [facility] History of Present illness Narrative* Rebecca Diaz RT(R) - 08/01/2022 2:20 PM EDT Radiology [...] 01, 2022 1:12 PM documented [facility] encounter[facility] Miscellaneous Notes* Telephone Encounter - Apolinar Wheeler MA - 07/15/2022 1:55 PM EDT Reviewed chart for clinic prep. Patient has new CT ordered but not scheduled. Will not be able to get CT prior to 07/21 appointment. Staff message to schedulers to move appointment to a time after CT is scheduled. EMA Silva-P, OCCA documented in this encounter[facility] Instructions* Patient Instructions* Natacha Tellez - 07/11/2022 10:52 AM EDT Follow up with Dr. Gris FLANNERY office visit with Urology documented in this encounterSelect [facility] History of Present illness Narrative* Natacha Tellez - 07/11/2022 10:20 AM EDT Jordan Aguilar [address] [facility] [address] Mr. Aguilar presents with chief complaints of: [...] 6 hours as needed for pain. lancets (Catapult GeneticsTOUCH DELICA PLUS LANCET) 33 gauge Use 1 each as directed to check blood sugar level three times a day blood sugar diagnostic (PSS SystemsUCH VERIO TEST STRIPS) test strip Use 1 [...] Status Change Amanda Becomes Manic REVIEW OF SYSTEMS GENERAL: No [...] Possibilities): Here with his -S/p liver transplant 2/5/23 and 05/02/22 -4.0 cm heterogeneous lesion within [...] - Moderate By signing my name below, INatacha, attest that this documentation has been prepared under the direction and in the presence of Dr. Castro. Iris Broibalyson Provider Attestation: ISharon M.D., personally performed the services described in this documentation. All medicalrecord entries made by the scribe were at my direction and in my presence. I have reviewed the chart and discharge instructions (if applicable) and agree that the record reflects my personal performance and is accurate and complete. Sharon Castro M.D. documented in this encounter[facility] History of Present illness Narrative* Nay Brunson [...] 04, 2022 1:40 PM documented in this encounter[facility] Miscellaneous Notes* Addendum Note - Sharon Castro MD - 06/26/2022 3:16 PM EDTAddended by: SHARON CASTRO on: 06/26/2022 03:16 PM Modules accepted: Orders * Addendum Note - Sharon Castro MD - 06/26/2022 3:11 PM EDTAddended by: SHARON CASTRO on: 06/26/2022 03:11 PM Modules accepted: Orders documented in this encounterSelect [facility]23 History of Present illness Narrative* Sharon Castro [...] GS for inguinal petty documented in this encounterSelect [facility]23 Miscellaneous Notes* Telephone Encounter - Kat Leal RN - 06/17/2022 3:04 PM EDT I called and notified patient that medication assistance paperwork that was left for me is for Envarsus, which is not a medication he is taking. He stated his understanding. Kat Leal (Cassie) RN, BSN Liver Change Of Address Clerk documented in this encounterSelect [facility] History of Present illness Narrative* Gabriel Hilton MD - 06/15/2022 2:56 PM EDT POST LIVER TRANSPLANT FOLLOW UP Jordan Aguilar [id number] Date of Transplant: 05/03/2022 Original liver diagnosis: [...] 6 hours as needed for pain. lancets (Catapult GeneticsTOUCH DELICA PLUS LANCET) 33 gauge Use 1 each as directed to check blood sugar level three times a day blood sugar diagnostic (Catapult GeneticsTOUCH VERIO TEST STRIPS) test strip Use 1 [...] Dr. Julian Hilton MD documented in this encounterSelect [facility]-2023 Instructions* Patient Instructions* Francois German RN - 06/15/2022 2:53 PM EDT Decrease tacrolimus to 1.5 mg twice daily. Start Magnesium-Oxide 400 mg twice daily. Use melatonin if needed for sleep. Return to liver clinic on July 27 for 3 month follow. documented in this encounterSelect [facility]23 Miscellaneous Notes* Telephone Encounter - Sharon Castro MD - 06/11/2022 12:36 AM EST Patient scheduled for his scrotal us on 07/04/22 1:00 PM Seeing him on 07-12-22 documented in this encounterSelect [facility]-2023 Miscellaneous Notes* Telephone Encounter - Kat Leal [...] pharmacy. Kat Leal RN documented in this encounterSelect [facility] History of Present illness Narrative* Faustina Leahy [...] 6 hours as needed for pain. lancets (Catapult GeneticsTOUCH DELICA PLUS LANCET) 33 gauge Use 1 each as directed to check blood sugar level three times a day blood sugar diagnostic (PSS SystemsUCH VERIO TEST STRIPS) test strip Use 1 [...] Problems No Family History I reviewed the Linen Room Worker's notes with this visit for vital signs, [...] Boost 3x/day Drinks: 1 bottle of pepsi/day. Caratunk juice. Lots of water. Previously drank 3-4 [...] other medical problems. RTC PRN Faustina Leahy APRN.ROMA Endocrinology [facility] [place] documented in this encounterSelect [facility]02-27-2023 Miscellaneous Notes* Telephone Encounter - Diane Vallecillo [...] mouth every Monday,Monday,Monday. Authorizing Provider: DIANE VALLECILLO APRN.MANAGER OF TRAINING * Telephone Encounter - Francois German RN - 05/27/2022 3:54 PM EST Patient phones requesting prescriptions sent to [facility]. Requested Prescriptions Pending Prescriptions Disp [...] 6 hours as needed for pain. lancets (ONETOUCH DELICA PLUS LANCET) 33 gauge [...] tablet by mouth every Monday,Monday,Monday. NIKHIL Moreland, [facility] Liver Change Of Address Clerk * Telephone Encounter - Kenna Green Fc - 05/27/2022 2:47 PM EST Jennyfer/patient's daughter called requesting to switch All of his Medications refill request from [facility] [place]/ Pharmacy to [facility] in [facility] [phone], she states he went to see his PCP yesterday due to his bad back problems he had an x ray and they found a compression fracture, just want to make his Coordinator aware. documented in this encounterSelect [facility]23 Miscellaneous Notes* Result Encounter Note - Francois German RN - 05/27/2022 1:21 PM EST Results reviewed. No change to the plan of care at this time. * Result Encounter Note - Francois German RN - 05/26/2022 1:42 PM EST Results reviewed. No change to the plan of care at this time. documented in this encounterSelect [facility]02-24-2023 Instructions* Patient Instructions* Natacha Tellez - 05/27/2022 12:17 PM EST OV in 6 weeks with US scrotum prior Testicular tumor markers blood tests documented in this encounterSelect [facility]23 History of Present illness Narrative* Natacha Tellez - 05/27/2022 11:59 AM EST oJrdan Aguilar [address] [facility] [address] Mr. Aguilar presents with chief complaints of: [...] 3 capsules by mouth twice daily. lancets (Catapult GeneticsTOUCH DELICA PLUS LANCET) 33 gauge Use 1 each as directed to check blood sugar level three times a day blood sugar diagnostic (Catapult GeneticsTOUCH VERIO TEST STRIPS) test strip Use 1 [...] of Dr. Castro. Iris Broibe Provider Attestation: I, Sharon Castro M.D., personally performed the services described in this documentation. All medicalrecord entries made by the scribe were at my direction and in my presence. I have reviewed the chart and discharge instructions (if applicable) and agree that the record reflects my personal performance and is accurate and complete. Sharon Castro M.D. documented in this encounterSelect [facility]23 History of Present illness Narrative* Lawanda Marie DO - 05/25/2022 4:01 PM EST Virtualist Progress Note Triage Call Triage source: Triage Call (Nurse 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, [facility] Triage, [facility] Phone Triage) Was patient downgraded (i.e. disposition other than go to the ED was advised)? Yes Mode of contact (phone call, [employer], [email or web address], [facility], Skype, other): tele History/Physical Exam: 62 y/o male presents with right scrotal swelling and tenderness for the past 2 month. Occurred after hernia surgery. He had an appt with urology but it was cancelled due to a liver transplant. The swelling is slighly worse, no warmth, fever, or change in urination. Nurse Triage Disposition (If call is from Home Care, Home Care nurse triage, or an Express Care, the disposition is Go to ED Now ): Go to ED Now (or PCP Triage) Virtualist Recommended Disposition: See Provider > 2 days, rec seeing urology at next available Signed in as Primary Virtualist, Secondary Virtualist, or [facility] Telehealth provider: Secondary SIGNATURE: Lawanda Marie DO PATIENT NAME: Jordan Aguilar DATE: May 25, 2022 documented in this encounterSelect [facility]23 Miscellaneous Notes* Telephone Encounter - Lakeisha Sands [...] or tender to touch Protocols used: Scrotum [id number] Patient was unable to schedule with appointment center for tomorrow due to other visits, Conferenced to Appointment center to schedule Appointment within 2 days. documented in this encounterSelect [facility] History of Present illness Narrative* Marlo Alvarado MD - 05/25/2022 2:04 PM EST POST LIVER TRANSPLANT FOLLOW UP Jordan Aguilar [id number] Date of Transplant: 05/03/2022 Original liver diagnosis: [...] 3 capsules by mouth twice daily. lancets (CatchTheEye DELICA PLUS LANCET) 33 gauge Use 1 each as directed to check blood sugar level three times a day blood sugar diagnostic (C[employer] VERIO TEST STRIPS) test strip Use 1 [...] weeks Marlo Alvarado MD documented in this encounterSelect [facility]23 Instructions* Patient Instructions* Francois German RN - 05/25/2022 1:28 PM EST Stop Ursodiol Stop Prednisone Stop Nystatin swish [place] removed today and steri-strips applied Return to clinic on June 15. Watch [place] for time. documented in this encounterSelect [facility]23 Miscellaneous Notes* Result Encounter Note - Francois [...] care at this time. documented in this encounterSelect [facility]02[facility]-2023 Miscellaneous Notes* Telephone Encounter - Francois German RN - 05/20/2022 3:45 PM EST Patient phones requesting refills as follows: Requested Prescriptions Pending Prescriptions Disp Refills simvastatin (ZOCOR) 20 mg tablet 30 tablet 11 Sig: Take 1 tablet by mouth daily at bedtime. NIKHIL Moreland, [facility] Liver Change Of Address Clerk * Telephone Encounter - Kenna Green Fc - 05/20/2022 1:23 PM EST Patient has [...] medication. Kenna Green Fc documented in this encounterSelect [facility]23 Instructions* Patient Instructions* Francois German RN - 05/18/2022 3:24 PM EST No changes to medications. Incision looks good. Will remove turner next week. Pathology reviewed. No unexpected findings. Return to clinic on 05/25/22. Watch [place] for time. documented in this encounterSelect [facility] History of Present illness Narrative* Diane Vallecillo APRN.ROMA - 05/18/2022 3:03 PM EST POST LIVER TRANSPLANT FOLLOW UP Jordan Loera Michael [id number] Date of Transplant:05/03/22 Original liver diagnosis: [place] Explanted liver:[place] Medication List: Current Outpatient Medications Medication Sig aspirin 81 mg chewable tablet Chew & swallow 1 tablet by mouth once daily. tacrolimus IR (PROGRAF) 1 mg capsule Take 3 capsules by mouth twice daily. lancets (Catapult GeneticsTOUCH DELICA PLUS LANCET) 33 gauge Use 1 each as directed to check blood sugar level three times a day blood sugar diagnostic (PSS SystemsUCH VERIO TEST STRIPS) test strip Use 1 [...] rashes or lesions Abdomen: soft, ND, NT [place] intact Extremities: Extremities normal. No deformities, edema, [...] next week for staple removal Diane Vallecillo APRN.MANAGER OF TRAINING documented in this encounterSelect [facility]-14-[facility]23 Miscellaneous Notes* Telephone Encounter - Francois German [...] tomorrow afternoon at 1:30 PM. NIKHIL Moreland, [facility] Liver Change Of Address Clerk * Telephone Encounter - Kenna Jalloh - 05/16/2022 4:25 PM EST Patient's daughter called/left a message she wants to make sure that he had the correct bloodwork done this morning, requesting a c/b from his Coordinator. documented in this encounterSelect Medical [facility]ty [facility]02-02-2023 History of Present illness Narrative* Re Childress RN - 05/05/2022 8:02 AM EST DONOR ID: [id number] MATCH RUN: [id number] Type of Donor: DBD At risk donor: No Liver pumped: No TRANSPLANT SEROLOGIES: CMV IgG: Donor NEGATIVE/ Recipient NEGATIVE EBV IgG: Donor POSITIVE/ Recipient POSITIVE Donor has tested positive for COVID: No Re Childress RN, BSN, [facility] Liver Change Of Address Clerk documented in this encounterSelect Medical [facility]ty [facility]01-30-2023 Miscellaneous Notes* Telephone Encounter - Marilyn Lux RN - 05/02/2022 4:52 PM EST Called and informed the patient of a potential liver offer per Dr. Alvarado. Explained to the patient that per Dr. Alvarado the liver offer is from a DBD. The patient acknowledged an understanding and an opportunity was provided to ask questions. The patient agreed [facility]. Explained the possibility [...] 70% Marilyn Lux RN documented in this encounterSelect Medical [facility]ty [facility]01-27-2023 History of Present illness Narrative* Negar Shane [...] April 29, 2022 TIME: 8:05 AM * RT Mitchell(R) - 04/29/2022 8:00 AM EST Radiology Service [...] 29, 2022 8:13 AM documented in this encounterSelect Medical [facility]01-25-2023 Miscellaneous Notes* Telephone Encounter - Zuleyka Jamison [...] answered. Zuleyka Jamison RN documented in this encounterSelect Medical Specialty [facility]01-13-2023 History of Present illness Narrative* Lakshmi Cr DO - 04/15/2022 8:52 AM EST Images from the original note were not included. Respiratory [place] ESTABLISHED PATIENT FOLLOW UP CC: Jordan Aguilar [...] OUTSIDE/CCF RECORDS: SPIROMETRY WITH DILATOR IF OBSTRUCTED ([id number]) - ordered on 02/11/22 No textual results [...] CR 04/15/2022 8:52 AM documented in this encounterSelect Medical [facility]ty [facility]01-11-2023 Miscellaneous Notes* Telephone Encounter - Cynthia Frederick RN - 04/13/2022 4:13 PM EST Attempted to reach the patient at the contact number that they provided [phone] (home) . Unable to speak with patient so without identifying the patient the following information was left on their voice mail: Date of procedure, location and report time A message was left informing the patient/patient district sales representative they must have a responsible [...] Number to call with questions or concerns [phone] Cynthia Frederick RN documented in this encounterSelect Medical [facility]01-11-2023 Instructions* Patient Instructions* Dayna Reyes MD - 04/13/2022 8:50 AM EST Schedule: Scrotal Ultrasound CT Liver Dermatology Lucy Lomax PA-C in [address] Reyes in 6 months Get a COVID-19 bivalent booster documented in this encounterSelect Medical [facility]ty [facility]01-11-2023 History of Present illness Narrative* Dayna Reyes MD - 04/13/2022 8:28 AM EST NAME: Joradn [facility] NO: [id number] REFERRING PHYSICIAN: Dayna Reyes PRESENTING COMPLAINT: f/u [...] Comment: none since 2019 Drug use: No PAST MEDICAL HISTORY Diagnosis [...] BID (needs to discuss filling at pharmacy, [facility] was approved). Continue zinc, level was low. [...] HE. He undergoes PRN LVP locally at [facility]. -HCC screening / liver cyst surveillance: [...] health: FBSE up to date 05/17/21 at [facility]. Refer for annual examination. -Immune status: He is immune to HAV/HBV. He completed 4 doses of a COVID-19 Moderna series. Recommended bivalent booster, which he will do locally. Follow up 3 months. Please contact sooner if you have questions or problems develop. I spent a total of 45 minutes on the date of the service which included preparing to see the patient, vmch-mq-[id number] patient care, completing clinical documentation, obtaining and/or reviewing separately obtained history, performing a medically appropriate examination, counseling and educating the pat ient/family/caregiver, ordering medications, tests, or procedures, communicating with other HCPs (not separately reported), independently interpreting results (not separately reported), communicatingresults to the patient/family/caregiver, and care coordination (not separately reported). Dayna Reyes MD April 13, 2022 8:28 AM documented in this encounterSelect Medical [facility]ty [facility]01-06-2023 Miscellaneous Notes* Telephone Encounter - Diana Quiroz [...] Reyes MD - 04/07/2022 8:58 PM EST [place] Can you please call patient: Labs look [...] AM Age: 61 years documented in this encounterSelect Medical Specialty Hospital [facility]12-30-2022 History of Present illness Narrative* Rebecca Diaz, RT(R) - 04/01/2022 10:40 AM EST Radiology [...] DATA: Not applicable SIGNED BY: RT Neva(R) April 01, 2022 9:20 AM documented in this encounterSelect Medical Specialty [facility]12-20-2022 Miscellaneous Notes* Sedation Documentation - Earnestine Giordano [...] AM EST Bottle 1 documented in this encounterSelect Medical Specialty Hospital [facility]12-15-2022 History of Present illness Narrative* Kulwinder Landry [...] EST GENERAL SURGERY CLINIC NOTE Jordan Aguilar [id number] HPI: Jordan Aguilar is a 61 year [...] his scrotum last night with minimalrelief. Takes Antigo for chronic back pain and he does [...] staff, Dr. Landry. Nanci Kamara RN DDSI POLICE WORKER Printing Agent documented in this encounterSelect Medical Specialty [facility]12-08-2022 Miscellaneous Notes* Telephone Encounter - Dayna Reyes [...] AM Age: 61 years documented in this encounterSelect Medical Specialty Hospital [facility]12-08-2022 History of Present illness Narrative* Kulwinder Landry MD - 03/10/2022 11:36 AM EST No problem so far. Scant drain output, removed. Follow-up PRN. Kulwinder Landry MD documented in this encounterSelect Medical Specialty Hospital [facility]12-08-2022 Nurse Note* Shahram Potter - 03/10/2022 10:46 AM EST What is the reason for your visit today? Post op Who is your referring physician? Dr. Landry Are you having poor oral intake? NO Have you had unintentional weight loss of 15 lbs/7 Kg in the last 3-6 months? NO Bowels: regular Wound: clean & dry Temperature: No Drains: Yes documented in this encounterSelect Medical Specialty [facility]12-07-2022 Miscellaneous Notes* Telephone Encounter - Dayna Reyes MD - 03/09/2022 3:57 PM EST [place] Could you please call to check in on patient I'm glad to see that his surgery went well! Could he please have a set of labs done when he is here tomorrow for post op visit? Thank you Dayna Reyes MD documented in this encounterSelect Medical Specialty [facility]12-01-2022 Miscellaneous Notes* Telephone Encounter - Diana Quiroz [...] also good to go for surgery. Zuleyka - QING - plan is for inguinal hernia repair [...] PM Age: 61 years documented in this encounterSelect Medical Specialty [facility]11-30-2022 Miscellaneous Notes* Telephone Encounter - Diana Quiroz RN - 03/02/2022 10:38 AM EST Called patient and spoke to him. I told him I submitted his [facility] re- enrollment forms. I asked if he had done his portion. He said he would do it today. Told him to call for assistance. Diana Quiroz RN March 02, 2022 10:40 AM documented in this encounterSelect Medical Specialty [facility]11-23-2022 NoteHNO ID: [id number] Author: Katharine Holder RDMS Service: ? Author [...] Katharine Holder RDMS February 23, 2022 1:15 [id number] History of Present illness Narrative* Katharine Holder [...] 23, 2022 1:15 PM documented in this encounterSelect Medical Specialty [facility]11-22-2022 Miscellaneous Notes* Telephone Encounter - Diana Quiroz RN - 02/22/2022 12:02 PM EST Pt returned my call. He states his ascites is better but he still has fluid. He states he is tryingto reduce his sodium but struggles over the holidays. I told him he needs to have an ascites survey. Call then transferred to [facility] for scheduling. Diana Quiroz RN February 22, 2022 12:05 PM * Telephone Encounter - Diana Quiroz RN - 02/22/2022 9:29 AM EST Called patient to relay information from Dr Reyes. Left VM to return my call. Diana Quiroz RN February 22, 2022 9:29 AM * Telephone Encounter - Dayna Reyes MD - 02/22/2022 8:45 AM EST [place] Can you please call patient: Labs look good on the increased doses of the water pills. How is his ascites? We are working to reduce his ascites in anticipation of upcoming hernia surgery next week. Please remind of salt restricted diet - more important than ever this week with the holiday. Brook - Any chance he can get in [...] AM Age: 61 years documented in this encounterSelect Medical Specialty Hospital [facility]11-11-2022 History of Present illness Narrative* Lakshmi Cr, - 02/11/2022 1:13 PM EST Images from the original note were not included. Respiratory [place] ESTABLISHED PATIENT FOLLOW UP CC: Jordan Aguilar [...] Abs Lymph 1.00 - 4.00 k/uL 1.06 Barrow% % 8.9 Abs [place] <0.87 k/uL 0.48 Eosin% % 3.0 Abs [...] upper lobectomy at [facility] [place] [facility] in [address]. CT of the chest from [...] I will see the patient back in [facility] with a spirometry and chest x-ray. [...] 0.93 0.37 2.22 0.46 49 0.70 51 [id number] (L/sec) 3.07 1.46 5.27 1.40 45 2.17 [...] CR 02/11/2022 1:13 PM documented in this encounterSelect Medical Specialty Hospital [facility]11-11-2022 History of Present illness Narrative* Catrachito Odell RRT - 02/11/2022 12:45 PM EST PULM FUNCTION SMARTBLOCK: Provider: Lakshmi Cr DO Spirometry w/BD: 1 documented in this encounterSelect Medical Specialty Hospital [facility]11-10-2022 History and physical note * Venkata Kennedy APRN.MANAGER OF TRAINING - 02/10/2022 2:50 PM EST HISTORY AND PHYSICAL EXAMINATION SERVICE DATE: 02/10/2022 SERVICE TIME: 2:20 PM PRIMARY CARE PHYSICIAN: Jordan Azar MD, MD REASON FOR VISIT: Jordan Aguilar is a 61 year old male who is scheduled for HERNIORRHAPHY INGUINAL ELECTIVE ADULT REDUCIBLE on 03/04/20[facility] at [facility] at the request of Dr. Kulwinder [...] + HTN, HLD, CAD. Negative for DVT/PE, VA, Cardiac surgery or stents. Denies currentchest pain, [...] 2022 TIME: 3:07 PM documented in this encounterSelect Medical Specialty [facility]11-10-2022 Instructions* Patient Instructions* Venkata Kennedy APRN.CNP - 02/10/2022 2:38 PM EST PATIENT PREOPERATIVE INSTRUCTIONS Kulwinder Landry MD has scheduled you for your procedure at this surgery center: [facility] [place] Scheduling Office: [phone] --[address] [place] [address]. Please read below carefully for your personalized [...] Procedures: - YOU MUST HAVE A RESPONSIBLE COASTAL AND ESTUARY SPECIALIST TAKE YOU HOME. A MOLDED GRID AND PARTS INSPECTOR OR MANAGER OF DIGITAL CANNOT BE MADE A RESPONSIBLE COASTAL AND ESTUARY SPECIALIST. - We recommend that a responsible person [...] call the Monday before. Your surgeon s scorer helper will tell you what time to call the office. - If you have not reached the departmental scorer helper by 5 P.M., call [phone] after 5 P.M. the day before your surgery. Please be aware that emergency situations arise, which may delay or change your surgical time. If this happens, we will notify you as soon as possible and regret any inconvenience. If you already have an Advance Directive, please fax a copy to [phone] or email to for it to be [...] day. Venkata Kennedy APRN.ROMA documented in this encounterSelect Medical Specialty [facility]11-10-2022 History of Present illness Narrative* Kulwinder Landry MD - 02/10/2022 1:06 PM EST Mr Acuña's platelets are improved and ascites is optimized at this point. Plan for repair in March. Kulwinder Landry MD documented in this encounterSelect Medical Specialty Hospital - [facility]11-10-2022 Nurse Note* Trina Brandt Ma - 02/10/2022 12:39 PM EST What is the reason for your visit today? est Who is your referring physician? Are you having poor oral intake? NO Have you had unintentional weight loss of 15 lbs/7 Kg in the last 3-6 months? NO Bowels: regular Wound: clean & dry Temperature: No Drains: No documented in this encounterSelect Medical Specialty Hospital - [facility]10-13-2022 History of Present illness Narrative* Lakshmi Cr DO - 01/13/2022 2:16 PM EDT Images from the original note were not included. Respiratory [place] ESTABLISHED PATIENT FOLLOW UP CC: Jordan Aguilar [...] upper lobectomy at [facility] [place] [facility] in [address]. CT of the chest from [...] I will see the patient back in [facility] with a spirometry and chest x-ray. I will cleared the patient for surgery at that time PRIMARY CARE PHYSICIAN: Jordan Azar MD, MD REVIEW OF OUTSIDE/CCF RECORDS: SPIROMETRY BASELINE ONLY ([id number]) - ordered on 06/04/19 [facility] [address] [place] [address] Test Date: 2019-08-14 Pat Name: JORDAN AGUILAR Department: Room: Gender: Male [place] Polisher Operator: Gina Harris : 1960 Requested By: Order Number: [id number] Reading MD: Dr. Daren Hampton MD Interpretive [...] 4.81 FE%FIF % 53 FIVC L 4.57 GCW28-38% L/s 1.50 1.58 3.21 5.43 46.7 NUP634% sec 13.48 FETPEF sec 0.05 VBe%FV % [...] CR 01/13/2022 2:17 PM documented in this encounterSelect Medical Specialty Hospital [facility]09-28-2022 History of Present illness Narrative* RT Jada(R) [...] 29, 2021 9:36 AM documented in this encounterSelect Medical Specialty Hospital [facility]09-07-2022 History of Present illness Narrative* Ivette Mejia MD - 12/08/2021 1:13 PM EDT Images from the original note were not included. [facility] I had the pleasure of seeing Jordan Aguilar at the [facility] 08, 2021 I was asked [...] (L) 0.90 (L) 0.91 (L) 0.86 (L) Barrow% % 7.0 7.2 8.1 12.6 10.6 9.9 Abs Barrow <0.87 k/uL 0.42 0.41 0.27 0.61 0.50 [...] time of this visit, including time spent lgev-wn-ptyd with the patient and/or via video/audio, and [...] EMR or by fax documented in this encounterSelect Medical Specialty Hospital - [facility]09-07-2022 Nurse Note* Therese Leyva MA - 12/08/2021 [...] copies are in Epic documented in this encounterSelect Medical Specialty Hospital - [facility]08-31-2022 History of Present illness Narrative* Vidhya Daryl - 12/01/2021 4:53 PM EDT Mr. Aguilar presents today for his Reclast Infusion. Initial Vital signs: There were no vitals taken for this visit. INFUSION DOCUMENTATION Infusion initiated at 1120 am. Dose: 5mg/100 molIV: A 22g angiocath was started in the left arm. Infusing without signs or symptoms of infiltration. Patient tolerated well. Infusion discontinued at 1150am Lot: [id number] Exp:02/2023 LAB DATA: Glucose (mg/dL) Date Value [...] Physician: Dr. Lorna Frazier documented in this encounterSelect Medical Specialty Hospital [facility]08-31-2022 History of Present illness Narrative* DES Trivedi - 12/01/2021 10:07 AM EDT OLTx Annual Update to Original Psychosocial Evaluation Name: Jordan Aguilar Medical Record: [id number] Assessment Date: December 01, 2021 Met with: [...] for annual follow up with WILBER. He was A&Ox3, pleasant and fully participated in visit with SW. He was seen alone today but continues to identify his fiance Haylie and daughter Jennyfer as caregivers. They are both routinely involved in his care and monitor his condition and medication compliance at home. Pt has kept appointments at [facility] as scheduled and has a good therapeutic alliance with his providers. He has continued occasional cigarette use and was encouraged to quit again today. He denies any other substance use. His mood remains stable and he was able to identify healthy copingskills today. RECOMMENDATION: Pt remains suitable for listing from a perspective. Continue to follow up annually or as needed. SITUATIONAL HISTORY: Pt seen for annual follow up with SW. He is listed and waiting for transplant [...] Both Haylie and Jennyfer can access his Verdigris Technologieshart for any questions they have. They also [...] CAREGIVER/SUPPORT PLAN: Primary Caregiver: Haylie contact #: [phone] Availability: She works full-time but has vacation time she can use. She's a strong support for him. Secondary Caregiver: Jennyfer contact #: [phone] Availability: She is a stay at home [...] be made at this time. ADWOA Trivedi, SILVANOS, CCTSW December 01, 2021 10:07 AM documented in this encounterSelect Medical Specialty Hospital [facility]08-29-2022 Miscellaneous Notes* Telephone Encounter - Donya Hanna - 11/29/2021 9:16 AM EDT Under scanned documents on 08/25 patient was approved for [facility] PAP This needs to be filled through the [facility] Donya Hanna LPN November 29, 2021 9:16 AM * Telephone Encounter - Dayna Reyes MD - 11/29/2021 9:06 AM EDT Ms Donya Patient is still having difficulty with Rifaximin. He says his pharmacy does not carry the medication, unsure if PAP is approved. Can you please check on PAP status, determine if med can be sent by Specialty Pharmacy and what next steps are needed. Then please call patient / patient's daughter withupdate. Thank you Dayna Reyes MD documented in this encounterSelect Medical Specialty Hospital - [facility]08-23-2022 Miscellaneous Notes* Telephone Encounter - Donya Hanna [...] more lab work done since being discharged? Thanks Brook documented in this encounterSelect Medical Specialty Hospital - [facility]08-11-2022 Instructions* Patient Instructions* Tenisha Granados PA-C - 11/11/2021 9:30 AM EDT PATIENT PREOPERATIVE INSTRUCTIONS Kulwinder Landry MD has scheduled you for your procedure at this surgery center: [facility] [place] Scheduling Office: [phone] --[address] [place] [address]. Please read below carefully for your personalized [...] Procedures: - YOU MUST HAVE A RESPONSIBLE COASTAL AND ESTUARY SPECIALIST TAKE YOU HOME. A MOLDED GRID AND PARTS INSPECTOR OR MANAGER OF DIGITAL CANNOT BE MADE A RESPONSIBLE COASTAL AND ESTUARY SPECIALIST. - We recommend that a responsible person [...] call the Monday before. Your surgeon s scorer helper will tell you what time to call the office. - If you have not reached the departmental scorer helper by 5 P.M., call [phone] after 5 P.M. the day before your surgery. Please be aware that emergency situations arise, which may delay or change your surgical time. If this happens, we will notify you as soon as possible and regret any inconvenience. If you already have an Advance Directive, please fax a copy to [phone] or email to for it to be [...] day. Tenisha Granados PA-C documented in this encounterSelect Medical Specialty Hospital - [facility]08-11-2022 History and physical note * Tenisha Granados [...] by mouth daily at bedtime. Yes iron marcus,ps-FA-B-C#12-succ 65 mg-65 mg -1,000 mcg (24) tab [...] fevers. Neuro: No history of TIA's, stroke, FOUNDATION ASSISTANT tumor, impaired sensorium, hemiplegia, paraplegia or quadraplegia. [...] Reyes, stable Thrombocytopenia (HCC) Assessment: baseline in - labs completed 11/11 platelet count 18. [...] Order Specific Question: In order to conserve [facility] supply for crucial testing, I attest that [...] Order Specific Question: In order to conserve [facility]'s supply for crucial testing, I attest that [...] 2021 TIME: 8:18 AM documented in this encounterSelect Medical Specialty [facility]07-18-2022 Miscellaneous Notes* Telephone Encounter - Dayna Reyes MD - 10/18/2021 2:12 PM EDT Orders signed Dayna Reyes MD documented in this encounterSelect Medical Specialty [facility]07-13-2022 Miscellaneous Notes* Telephone Encounter - Dayna Reyes [...] you Dayna Reyes MD documented in this encounterSelect Medical Specialty [facility]07-08-2022 Miscellaneous Notes* Telephone Encounter - Dolly Randle [...] 10/07/2021 11:29 AM EDT ----- Message from Lonra Frazier MD sent at 10/07/2021 10:40 AM EDT ----- Regarding: needs annual Reclast Infusion Please call and schedule He will be here on December 01 for other appointments thank you Lorna Frazier MD documented in this encounterSelect Medical Specialty [facility]07-07-2022 History of Present illness Narrative* Kulwinder Landry [...] schedule him for surgery. documented in this encounterSelect Medical Specialty Hospital [facility]07-07-2022 Nurse Note* Trina Brandt Ma - 10/07/2021 1:26 PM EDT Intake information documented in the prior visit with Dr. frazier today. documented in this encounterSelect Medical Specialty Hospital [facility]07-07-2022 History of Present illness Narrative* Lorna Frazier [...] DATE OF EXAM: Jun 18 2020 9:45AM [facility] 0804 - DXA - AXIAL SKELETON / PROCEDURE REASON: multiple diagnoses * * * * Physician Interpretation * * * * EXAMINATION: DXA BONE DENSITOMETRY BD DXA - AXIAL SKELETON PATIENT DEMOGRAPHICS: Age: 60 years, Race: , Gender: Male SCANNER INFORMATION: DXA Model: A21 iCIMS (S/N: [id number]) Site Scanned: Lumbar spine, left hip Date [...] RD, MD, CCD, FACN, FACP, FACE Diplomate, [place] Board of Obesity Medicine Diplomate, National Board of Physician Nutrition Specialists [facility]-20 / [phone] / [phone] Any part of this document that has [...] Level: 4 - Moderate documented in this encounterSelect Medical Specialty [facility]07-07-2022 Instructions* Patient Instructions* Gladys Quiroz Ma - 10/07/2021 10:24 AM EDT 2 cups of gatorade + 2 cups of water + 1 teaspoon of salt documented in this encounterSelect Medical Specialty Hospital [facility]07-05-2022 History of Present illness Narrative* Tim Dennis MD - 10/05/2021 10:52 AM EDT STUDY TITLE: A Multicenter, Prospective, Open-label, Randomized Controlled Clinical Trial to Compare the Safety and Effectiveness of the VitaSmartTM Liver Machine Perfusion System with Static Cold Storage for Organ Preservation Prior to Liver Transplantation (Bridge to HOPE) (Bridge to Life) IRB No: [id number] ENTRY LEVEL ASSISTANT MANAGER: Juan Lloyd MD Pager: [phone] COORDINATOR/Research Nurse/Paper Cup Machine Operator: Jammie Dubose MS I discussed the above mentioned research protocol with patient. All questions were addressed and answered. The IRB approved Informed Consent document was reviewed with the patient. The study purpose,follow up visits, risks, alternatives and costs were discussed. Patient is aware that this study is completely voluntary. Patient will be given a copy of the IFC. Nutrient Management Specialist's contact information will be given to patient. documented in this encounter[facility] History of Present illness Narrative* Lucy Lomax PA-C - 09/20/2021 7:40 AM EDT Images from the original note were not included. Surgical risk-cirrhosis Vocal Simms Score Lucy Lomax PA-C September 20, 2021 7:40 AM documented in this encounterSelect [facility]18[facility] Miscellaneous Notes* Telephone Encounter - Dayna Reyes MD - 09/18/2021 10:05 AM EDT Nicolas Naqvi Can you please call patient I heard [...] you Dayna Reyes MD documented in this encounterSelect [facility]17-[facility]22 Instructions* Patient Instructions* Lucy Lomax PA-C - 09/17/2021 10:29 AM EDT With next set of labs, will need to check vitamin A level Repeat liver ultrasound and follow up with Dr. Reyes in December Call general surgery to discuss hernia repair documented in this encounterSelect [facility] History of Present illness Narrative* Lucy Lomax PA-C - 09/17/2021 10:00 AM EDT Images from the original note were not included. NAME: Jordan Aguilar CLINIC NO: [id number] REFERRING PHYSICIAN: Dayna Reyes PRESENTING COMPLAINT: Patient [...] setting of HE. PRN LVP locally at [facility]. -HCC screening / liver cyst surveillance: He was recently found to have newly elevated CA19-9. An MRCP on 06/29/21 was negative for malignancy. Recommend longitudinal screening via imaging and AFP [id number]. -EV screening: Small EV on EGD 04/21/21. [...] health: FBSE up to date 05/17/21 at [facility]. -Immune status: Immune to HAV/HBV. Completed [...] continue Bumex and spironolactone, recommend paracentesis (at [facility]) as needed for comfort or if [...] which included preparing to see the patient, [id number] patient care, completing clinical documentation, obtaining and/or reviewing separately obtained history, performing a medically appropriate examination, counseling and educating the pat ient/family/caregiver, ordering medications, tests, or procedures, communicating with other HCPs (not separately reported) and independently interpreting results (not separately reported). Lucy Lomax PA-C September 17, 2021 4:34 PM documented in this encounterSelect [facility]06-13-[facility]22 Miscellaneous Notes* Telephone Encounter - Zuleyka Jamison RN - 09/13/2021 4:14 PM EDT Jordan Aguilar informed of following... Successfully updated registration for Jordan Aguilar (SSN: [id number]). MELD Lab values were successfully updated. The new lab score is 10. All questions answered, Zuleyka Jamison RN documented in this encounterSelect [facility]06-13-[facility] History of Present illness Narrative* Katy Chávez [...] Time 11:22 Reactions: WNL documented in this encounterSelect [facility]06-10-2022 Miscellaneous Notes* Telephone Encounter - Lorna Bucio [...] In Department of CARDIOLOGY. documented in this encounterSelect Medical [facility]04-30-2022 Miscellaneous Notes* Telephone Encounter - Dayna Reyes MD - 07/31/2021 10:26 AM EDT Nicolas Naqvi Can you please call patient: His updated labs are looking good on the new water pill regimen. I would like to increase his spironolactone to 200mg daily (2 pills daily). [facility] 1 week. How is the ascites? Thank you Dayna Reyes MD documented in this encounterSelect [facility]04-12-2022 Miscellaneous Notes* Telephone Encounter - Dayna Reyes MD - 07/13/2021 10:52 PM EDT Nicolas Naqvi Can you please call patient: His liver ultrasound looks good. The liver vessels are open, and there is no imaging evidence of liver cancer. It does show moderate to large volume ascites. Remind to re-check labs next week to monitor change in water pills. Thank you MD Brook Grider - Can patient please be scheduled for LVUS same day he sees me in December? Order placed. Thank you! documented in this encounterSelect [facility]04-11-2022 Miscellaneous Notes* Telephone Encounter - Dayna Reyes [...] Repeat labs in 1 week at a [facility] lab to re-check kidney function and electrolytes [...] PM Age: 61 years documented in this encounterSelect [facility]04-06-2022 Instructions* Patient Instructions* Dayna Reyes MD - [...] your COVID 4th shot documented in this encounterSelect [facility]04-06-[facility]22 History of Present illness Narrative* Dayna Reyes MD - 07/07/2021 11:00 AM EDT NAME: Jordan Aguilar CLINIC NO: [id number] REFERRING PHYSICIAN: Dayna Reyes PRESENTING COMPLAINT: f/u [...] over the past couple months last para 3, took off 10L and gave albumin - [...] mL (BD POSIFLUSH) 10 mL INTRAVENOUS DIRECTED PRWenceslao Reyes MD ALLERGIES Allergen Reactions Pregabalin Mental [...] - TDAP 09/20 #Hx of polyps - [place] in 2025 Follow up in 6 months. Please contact sooner if you have questions or problems develop. Denise Cox MD Fellow, Gastroenterology & Hepatology July 07, 2021 11:27 AM [facility] STAFF PHYSICIAN NOTE OF PERSONAL INVOLVEMENT IN [...] setting of HE. PRN LVP locally at [facility]. -HCC screening / liver cyst surveillance: He was recently found to have newly elevated CA19-9. An MRCP on 06/29/21 was negative for malignancy. Recommend longitudinal screening via imaging and AFP [id number]. -EV screening: Small EV on EGD 04/21/21. [...] health: FBSE up to date 05/17/21 at [facility]. -Immune status: Immune to HAV/HBV. Completed 3 doses of a COVID-19 Moderna series. Recommended 4th dose. Follow up in 8 weeks. Please contact sooner if you have questions or problems develop. I spent a total of 45 minutes on the date of the service which included preparing to see the patient, [id number] patient care, completing clinical documentation, obtaining and/or reviewing separately obtained history, performing a medically appropriate examination, counseling and educating the pat ient/family/caregiver, ordering medications, tests, or procedures and care coordination (not separately reported). Dayna Reyes MD July 07, 2021 11:00 AM documented in this encounterSelect [facility]03-29-2022 Miscellaneous Notes* Addendum Note - Dayna Reyes [...] to be drained with them tomorrow. FX [phone] documented in this encounterSelect [facility]03-29-2022 History of Present illness Narrative* RT John(R) - 06/29/2021 11:50 AM EDT Radiology Service [...] RELEVANT IMPLANT DATA REVIEWED: Yes RADIOLOGY DEPARTMENT: MR; Exam(s) Completed: Body: Pancreas/Biliary PERIPHERAL IV DATA: [...] 2021 TIME: 12:10 PM documented in this encounterSelect [facility]05-20-[facility]21 History of Past illness Narrative* Problem Noted Date Resolved Date Low bone mass 08/20/2020 10/07/2021 Inguinal hernia, left 07/03/2018 09/12/2018 Pulmonary hypertension 05/30/2018 1 documented as of this encounter (statuses as of 10/07/2021) [facility] History of Past illness Narrative* Problem Noted Date Resolved Date Low bone mass 08/20/2020 10/07/2021 Inguinal hernia, left 07/03/2018 09/12/2018 Pulmonary hypertension 05/30/2018 1 documented as of this encounter (statuses as of 10/07/2021) [facility] History of Past illness Narrative* Problem Noted Date Resolved Date Low bone mass 08/20/2020 10/07/2021 Inguinal hernia, left 07/03/2018 09/12/2018 Pulmonary hypertension 05/30/2018 1 documented as of this encounter (statuses as of 10/12/2021) [facility] History of Past illness Narrative* Problem Noted Date Resolved Date Low bone mass 08/20/2020 10/07/2021 Inguinal hernia, left 07/03/2018 09/12/2018 Pulmonary hypertension 05/30/2018 1 documented as of this encounter (statuses as of 10/14/2021) [facility] History of Past illness Narrative* Problem Noted Date Resolved Date Low bone mass 08/20/2020 10/07/2021 Inguinal hernia, left 07/03/2018 09/12/2018 Pulmonary hypertension 05/30/2018 1 documented as of this encounter (statuses as of 10/18/2021) [facility] of Past illness Narrative* Problem Noted Date Resolved Date Low bone mass 08/20/2020 10/07/2021 Inguinal hernia, left 07/03/2018 09/12/2018 Pulmonary hypertension 05/30/2018 1 documented as of this encounter (statuses as of 10/19/2021) [facility] of Past illness Narrative* Problem Noted Date Resolved Date Low bone mass 08/20/2020 10/07/2021 Inguinal hernia, left 07/03/2018 09/12/2018 Pulmonary hypertension 05/30/2018 1 documented as of this encounter (statuses as of 11/04/2021) [facility] of Past illness Narrative* Problem Noted Date Resolved Date Low bone mass 08/20/2020 10/07/2021 Inguinal hernia, left 07/03/2018 09/12/2018 Pulmonary hypertension 05/30/2018 1 documented as of this encounter (statuses as of 11/12/2021) [facility] of Past illness Narrative* Problem Noted Date Resolved Date Low bone mass 08/20/2020 10/07/2021 Inguinal hernia, left 07/03/2018 09/12/2018 Pulmonary hypertension 05/30/2018 1 documented as of this encounter (statuses as of 11/23/2021) [facility] of Past illness Narrative* Problem Noted Date Resolved Date Low bone mass 08/20/2020 10/07/2021 Inguinal hernia, left 07/03/2018 09/12/2018 Pulmonary hypertension 05/30/2018 1 documented as of this encounter (statuses as of 11/29/2021) [facility] of Past illness Narrative* Problem Noted Date Resolved Date Low bone mass 08/20/2020 10/07/2021 Inguinal hernia, left 07/03/2018 09/12/2018 Pulmonary hypertension 05/30/2018 1 documented as of this encounter (statuses as of 12/01/2021) [facility] of Past illness Narrative* Problem Noted Date Resolved Date Low bone mass 08/20/2020 10/07/2021 Inguinal hernia, left 07/03/2018 09/12/2018 Pulmonary hypertension 05/30/2018 1 documented as of this encounter (statuses as of 12/02/2021) [facility] of Past illness Narrative* Problem Noted Date Resolved Date Low bone mass 08/20/2020 10/07/2021 Inguinal hernia, left 07/03/2018 09/12/2018 Pulmonary hypertension 05/30/2018 1 documented as of this encounter (statuses as of 12/04/2021) [facility] of [facility] Narrative* Problem Noted Date Resolved Date Low bone mass 08/20/2020 10/07/2021 Inguinal hernia, left 07/03/2018 09/12/2018 Pulmonary hypertension 05/30/2018 1 documented as of this encounter (statuses as of 12/08/2021) [facility] of Past [facility] Narrative* Problem Noted Date Resolved Date Low bone mass 08/20/2020 10/07/2021 Inguinal hernia, left 07/03/2018 09/12/2018 Pulmonary hypertension 05/30/2018 1 documented as of this encounter (statuses as of 12/20/2021) [facility] of [facility] Narrative* Problem Noted Date Resolved Date Low bone mass 08/20/2020 10/07/2021 Inguinal hernia, left 07/03/2018 09/12/2018 Pulmonary hypertension 05/30/2018 1 documented as of this encounter (statuses as of 12/23/2021) [facility] of [facility] Narrative* Problem Noted Date Resolved Date Low bone mass 08/20/2020 10/07/2021 Inguinal hernia, left 07/03/2018 09/12/2018 Pulmonary hypertension 05/30/2018 1 documented as of this encounter (statuses as of 12/30/2021) [facility] Narrative* Problem Noted Date Resolved Date Low bone mass 08/20/2020 10/07/2021 Inguinal hernia, left 07/03/2018 09/12/2018 Pulmonary hypertension 05/30/2018 1 documented as of this encounter (statuses as of 01/06/2022) [facility] Narrative* Problem Noted Date Resolved Date Low bone mass 08/20/2020 10/07/2021 Inguinal hernia, left 07/03/2018 09/12/2018 Pulmonary hypertension 05/30/2018 1 documented as of this encounter (statuses as of 01/10/2022) [facility] Narrative* Problem Noted Date Resolved Date Low bone mass 08/20/2020 10/07/2021 Inguinal hernia, left 07/03/2018 09/12/2018 Pulmonary hypertension 05/30/2018 1 documented as of this encounter (statuses as of 01/13/2022) [facility] Narrative* Problem Noted Date Resolved Date Low bone mass 08/20/2020 10/07/2021 Inguinal hernia, left 07/03/2018 09/12/2018 Pulmonary hypertension 05/30/2018 1 documented as of this encounter (statuses as of 01/21/2022) [facility] Narrative* Problem Noted Date Resolved Date Low bone mass 08/20/2020 10/07/2021 Inguinal hernia, left 07/03/2018 09/12/2018 Pulmonary hypertension 05/30/2018 1 documented as of this encounter (statuses as of 02/10/2022) [facility] Narrative* Problem Noted Date Resolved Date Low bone mass 08/20/2020 10/07/2021 Inguinal hernia, left 07/03/2018 09/12/2018 Pulmonary hypertension 05/30/2018 1 documented as of this encounter (statuses as of 02/10/2022) [address]20-2021 History of Past illness Narrative* Problem Noted Date Resolved Date Low bone mass 08/20/2020 10/07/2021 Inguinal hernia, left 07/03/2018 09/12/2018 Pulmonary hypertension 05/30/2018 1 documented as of this encounter (statuses as of 02/11/2022) [facility] Narrative* Problem Noted Date Resolved Date Low bone mass 08/20/2020 10/07/2021 Inguinal hernia, left 07/03/2018 09/12/2018 Pulmonary hypertension 05/30/2018 1 documented as of this encounter (statuses as of 02/11/2022) [facility] Narrative* Problem Noted Date Resolved Date Low bone mass 08/20/2020 10/07/2021 Inguinal hernia, left 07/03/2018 09/12/2018 Pulmonary hypertension 05/30/2018 1 documented as of this encounter (statuses as of 02/11/2022) [facility] Narrative* Problem Noted Date Resolved Date Low bone mass 08/20/2020 10/07/2021 Inguinal hernia, left 07/03/2018 09/12/2018 Pulmonary hypertension 05/30/2018 1 documented as of this encounter (statuses as of 02/15/2022) [facility] Narrative* Problem Noted Date Resolved Date Low bone mass 08/20/2020 10/07/2021 Inguinal hernia, left 07/03/2018 09/12/2018 Pulmonary hypertension 05/30/2018 1 documented as of this encounter (statuses as of 02/22/2022) [facility] Narrative* Problem Noted Date Resolved Date Low bone mass 08/20/2020 10/07/2021 Inguinal hernia, left 07/03/2018 09/12/2018 Pulmonary hypertension 05/30/2018 1 documented as of this encounter (statuses as of 02/25/2022) [facility] Narrative* Problem Noted Date Resolved Date Low bone mass 08/20/2020 10/07/2021 Inguinal hernia, left 07/03/2018 09/12/2018 Pulmonary hypertension 05/30/2018 1 documented as of this encounter (statuses as of 03/02/2022) [facility] Narrative* Problem Noted Date Resolved Date Low bone mass 08/20/2020 10/07/2021 Inguinal hernia, left 07/03/2018 09/12/2018 Pulmonary hypertension 05/30/2018 1 documented as of this encounter (statuses as of 03/03/2022) [facility] Narrative* Problem Noted Date Resolved Date Low bone mass 08/20/2020 10/07/2021 Inguinal hernia, left 07/03/2018 09/12/2018 Pulmonary hypertension 05/30/2018 1 documented as of this encounter (statuses as of 03/09/2022) [facility] Narrative* Problem Noted Date Resolved Date Low bone mass 08/20/2020 10/07/2021 Inguinal hernia, left 07/03/2018 09/12/2018 Pulmonary hypertension 05/30/2018 1 documented as of this encounter (statuses as of 03/10/2022) [facility] Narrative* Problem Noted Date Resolved Date Low bone mass 08/20/2020 10/07/2021 Inguinal hernia, left 07/03/2018 09/12/2018 Pulmonary hypertension 05/30/2018 1 documented as of this encounter (statuses as of 03/11/2022) [facility] Narrative* Problem Noted Date Resolved Date Low bone mass 08/20/2020 10/07/2021 Inguinal hernia, left 07/03/2018 09/12/2018 Pulmonary hypertension 05/30/2018 1 documented as of this encounter (statuses as of 03/17/2022) [facility] Narrative* Problem Noted Date Resolved Date Low bone mass 08/20/2020 10/07/2021 Inguinal hernia, left 07/03/2018 09/12/2018 Pulmonary hypertension 05/30/2018 1 documented as of this encounter (statuses as of 03/17/2022) [facility] Narrative* Problem Noted Date Resolved Date Low bone mass 08/20/2020 10/07/2021 Inguinal hernia, left 07/03/2018 09/12/2018 Pulmonary hypertension 05/30/2018 1 documented as of this encounter (statuses as of 03/22/2022) [facility] Narrative* Problem Noted Date Resolved Date Low bone mass 08/20/2020 10/07/2021 Inguinal hernia, left 07/03/2018 09/12/2018 Pulmonary hypertension 05/30/2018 1 documented as of this encounter (statuses as of 03/23/2022) [facility] N[facility]* Problem Noted Date Resolved Date Low bone mass 08/20/2020 10/07/2021 Inguinal hernia, left 07/03/2018 09/12/2018 Pulmonary hypertension 05/30/2018 1 documented as of this encounter (statuses as of 04/08/2022) [facility] N[facility]* Problem Noted Date Resolved Date Low bone mass 08/20/2020 10/07/2021 Inguinal hernia, left 07/03/2018 09/12/2018 Pulmonary hypertension 05/30/2018 1 documented as of this encounter (statuses as of 04/13/2022) [facility] Narr[facility]* Problem Noted Date Resolved Date Low bone mass 08/20/2020 10/07/2021 Inguinal hernia, left 07/03/2018 09/12/2018 Pulmonary hypertension 05/30/2018 1 documented as of this encounter (statuses as of 04/13/2022) [facility] Narrative* Problem Noted Date Resolved Date Low bone mass 08/20/2020 10/07/2021 Inguinal hernia, left 07/03/2018 09/12/2018 Pulmonary hypertension 05/30/2018 1 documented as of this encounter (statuses as of 04/15/2022) [address]20-[address]21 History of Past illness Narrative* Problem Noted Date Resolved Date Low bone mass 08/20/2020 10/07/2021 Inguinal hernia, left 07/03/2018 09/12/2018 Pulmonary hypertension 05/30/2018 1 documented as of this encounter (statuses as of 04/16/2022) [facility] N[facility]* Problem Noted Date Resolved Date Low bone mass 08/20/2020 10/07/2021 Inguinal hernia, left 07/03/2018 09/12/2018 Pulmonary hypertension 05/30/2018 1 documented as of this encounter (statuses as of 04/27/2022) [facility] Narrative* Problem Noted Date Resolved Date Low bone mass 08/20/2020 10/07/2021 Inguinal hernia, left 07/03/2018 09/12/2018 Pulmonary hypertension 05/30/2018 1 documented as of this encounter (statuses as of 04/30/2022) [facility]* Problem Noted Date Resolved Date Low bone mass 08/20/2020 10/07/2021 Inguinal hernia, left 07/03/2018 09/12/2018 Pulmonary hypertension 05/30/2018 1 documented as of this encounter (statuses as of 05/03/2022) [facility]* Problem Noted Date Resolved Date Low bone mass 08/20/2020 10/07/2021 Inguinal hernia, left 07/03/2018 09/12/2018 Pulmonary hypertension 05/30/2018 1 documented as of this encounter (statuses as of 05/05/2022) [facility]* Problem Noted Date Resolved Date Low bone mass 08/20/2020 10/07/2021 Inguinal hernia, left 07/03/2018 09/12/2018 Pulmonary hypertension 05/30/2018 1 documented as of this encounter (statuses as of 05/13/2022) [facility] Narrative* Problem Noted Date Resolved Date Low bone mass 08/20/2020 10/07/2021 Inguinal hernia, left 07/03/2018 09/12/2018 Pulmonary hypertension 05/30/2018 1 documented as of this encounter (statuses as of 05/16/2022) [facility]* Problem Noted Date Resolved Date Low bone mass 08/20/2020 10/07/2021 Inguinal hernia, left 07/03/2018 09/12/2018 Pulmonary hypertension 05/30/2018 1 documented as of this encounter (statuses as of 05/17/2022) [facility]* Problem Noted Date Resolved Date Low bone mass 08/20/2020 10/07/2021 Inguinal hernia, left 07/03/2018 09/12/2018 Pulmonary hypertension 05/30/2018 1 documented as of this encounter (statuses as of 05/20/2022) [facility]* Problem Noted Date Resolved Date Low bone mass 08/20/2020 10/07/2021 Inguinal hernia, left 07/03/2018 09/12/2018 Pulmonary hypertension 05/30/2018 1 documented as of this encounter (statuses as of 05/20/2022) [facility] N[facility]* Problem Noted Date Resolved Date Low bone mass 08/20/2020 10/07/2021 Inguinal hernia, left 07/03/2018 09/12/2018 Pulmonary hypertension 05/30/2018 1 documented as of this encounter (statuses as of 05/25/2022) [facility] N[facility]* Problem Noted Date Resolved Date Low bone mass 08/20/2020 10/07/2021 Inguinal hernia, left 07/03/2018 09/12/2018 Pulmonary hypertension 05/30/2018 1 documented as of this encounter (statuses as of 05/25/2022) [facility] N[facility]* Problem Noted Date Resolved Date Low bone mass 08/20/2020 10/07/2021 Inguinal hernia, left 07/03/2018 09/12/2018 Pulmonary hypertension 05/30/2018 1 documented as of this encounter (statuses as of 05/26/2022) [facility] Narr[facility]* Problem Noted Date Resolved Date Low bone mass 08/20/2020 10/07/2021 Inguinal hernia, left 07/03/2018 09/12/2018 Pulmonary hypertension 05/30/2018 1 documented as of this encounter (statuses as of 05/27/2022) [facility] N[facility]* Problem Noted Date Resolved Date Low bone mass 08/20/2020 10/07/2021 Inguinal hernia, left 07/03/2018 09/12/2018 Pulmonary hypertension 05/30/2018 1 documented as of this encounter (statuses as of 05/30/2022) [facility]21 History of Past illness Narrative* Problem Noted Date Resolved Date Low bone mass 08/20/2020 10/07/2021 Inguinal hernia, left 07/03/2018 09/12/2018 Pulmonary hypertension 05/30/2018 1 documented as of this encounter (statuses as of 05/31/2022) [facility]05[facility]2021 History of Past illness Narrative* Problem Noted Date Resolved Date Low bone mass 08/20/2020 10/07/2021 Inguinal hernia, left 07/03/2018 09/12/2018 Pulmonary hypertension 05/30/2018 1 documented as of this encounter (statuses as of 06/03/2022) [facility]2021 History of Past illness Narrative* Problem Noted Date Resolved Date Low bone mass 08/20/2020 10/07/2021 Inguinal hernia, left 07/03/2018 09/12/2018 Pulmonary hypertension 05/30/2018 1 documented as of this encounter (statuses as of 06/06/2022) [facility]2021 History of Past illness Narrative* Problem Noted Date Resolved Date Low bone mass 08/20/2020 10/07/2021 Inguinal hernia, left 07/03/2018 09/12/2018 Pulmonary hypertension 05/30/2018 1 documented as of this encounter (statuses as of 06/10/2022) [address]20-2021 History of Past illness Narrative* Problem Noted Date Resolved Date Low bone mass 08/20/2020 10/07/2021 Inguinal hernia, left 07/03/2018 09/12/2018 Pulmonary hypertension 05/30/2018 1 documented as of this encounter (statuses as of 06/11/2022) [facility] History of Past illness Narrative* Problem Noted Date Resolved Date Low bone mass 08/20/2020 10/07/2021 Inguinal hernia, left 07/03/2018 09/12/2018 Pulmonary hypertension 05/30/2018 1 documented as of this encounter (statuses as of 06/15/2022) [facility]20[facility] History of Past illness Narrative* Problem Noted Date Resolved Date Low bone mass 08/20/2020 10/07/2021 Inguinal hernia, left 07/03/2018 09/12/2018 Pulmonary hypertension 05/30/2018 1 documented as of this encounter (statuses as of 06/17/2022) [facility] History of Past illness Narrative* Problem Noted Date Resolved Date Low bone mass 08/20/2020 10/07/2021 Inguinal hernia, left 07/03/2018 09/12/2018 Pulmonary hypertension 05/30/2018 1 documented as of this encounter (statuses as of 06/26/2022) [facility]20[facility] History of Past illness Narrative* Problem Noted Date Resolved Date Low bone mass 08/20/2020 10/07/2021 Inguinal hernia, left 07/03/2018 09/12/2018 Pulmonary hypertension 05/30/2018 1 documented as of this encounter (statuses as of 06/28/2022) [facility] History of Past illness Narrative* Problem Noted Date Resolved Date Low bone mass 08/20/2020 10/07/2021 Inguinal hernia, left 07/03/2018 09/12/2018 Pulmonary hypertension 05/30/2018 1 documented as of this encounter (statuses as of 06/28/2022) [facility] History of Past illness Narrative* Problem Noted Date Resolved Date Low bone mass 08/20/2020 10/07/2021 Inguinal hernia, left 07/03/2018 09/12/2018 Pulmonary hypertension 05/30/2018 1 documented as of this encounter (statuses as of 06/29/2022) [facility] History of Past illness Narrative* Problem Noted Date Resolved Date Low bone mass 08/20/2020 10/07/2021 Inguinal hernia, left 07/03/2018 09/12/2018 Pulmonary hypertension 05/30/2018 1 documented as of this encounter (statuses as of 07/04/2022) [facility] History of Past illness Narrative* Problem Noted Date Resolved Date Low bone mass 08/20/2020 10/07/2021 Inguinal hernia, left 07/03/2018 09/12/2018 Pulmonary hypertension 05/30/2018 1 documented as of this encounter (statuses as of 07/11/2022) [facility] History of Past illness Narrative* Problem Noted Date Resolved Date Low bone mass 08/20/2020 10/07/2021 Inguinal hernia, left 07/03/2018 09/12/2018 Pulmonary hypertension 05/30/2018 1 documented as of this encounter (statuses as of 07/14/2022) [facility]20[facility] History of Past illness Narrative* Problem Noted Date Resolved Date Low bone mass 08/20/2020 10/07/2021 Inguinal hernia, left 07/03/2018 09/12/2018 Pulmonary hypertension 05/30/2018 1 documented as of this encounter (statuses as of 07/16/2022) [facility] History of Past illness Narrative* Problem Noted Date Resolved Date Low bone mass 08/20/2020 10/07/2021 Inguinal hernia, left 07/03/2018 09/12/2018 Pulmonary hypertension 05/30/2018 1 documented as of this encounter (statuses as of 07/27/2022) [facility] History of Past illness Narrative* Problem Noted Date Resolved Date Low bone mass 08/20/2020 10/07/2021 Inguinal hernia, left 07/03/2018 09/12/2018 Pulmonary hypertension 05/30/2018 1 documented as of this encounter (statuses as of 08/03/2022) [facility] History of Past illness Narrative* Problem Noted Date Resolved Date Low bone mass 08/20/2020 10/07/2021 Inguinal hernia, left 07/03/2018 09/12/2018 Pulmonary hypertension 05/30/2018 1 documented as of this encounter (statuses as of 08/04/2022) [facility] History of Past illness Narrative* Problem Noted Date Resolved Date Low bone mass 08/20/2020 10/07/2021 Inguinal hernia, left 07/03/2018 09/12/2018 Pulmonary hypertension 05/30/2018 1 documented as of this encounter (statuses as of 09/01/2022) [facility] History of Past illness Narrative* Problem Noted Date Resolved Date Low bone mass 08/20/2020 10/07/2021 Inguinal hernia, left 07/03/2018 09/12/2018 Pulmonary hypertension 05/30/2018 1 documented as of this encounter (statuses as of 09/02/2022) [facility] History of Past illness Narrative* Problem Noted Date Resolved Date Low bone mass 08/20/2020 10/07/2021 Inguinal hernia, left 07/03/2018 09/12/2018 Pulmonary hypertension 05/30/2018 1 documented as of this encounter (statuses as of 09/16/2022) [facility] History of Past illness Narrative* Problem Noted Date Resolved Date Low bone mass 08/20/2020 10/07/2021 Inguinal hernia, left 07/03/2018 09/12/2018 Pulmonary hypertension 05/30/2018 1 documented as of this encounter (statuses as of 09/22/2022) [facility] History of Past illness Narrative* Problem Noted Date Resolved Date Low bone mass 08/20/2020 10/07/2021 Inguinal hernia, left 07/03/2018 09/12/2018 Pulmonary hypertension 05/30/2018 1 documented as of this encounter (statuses as of 10/06/2022) [place] [address]-20-2021 History of Past illness Narrative* Problem Noted Date Diagnosed Date Resolved Date Low bone mass 08/20/2020 10/07/2021 Inguinal hernia, left 07/03/20182018 Pulmonary hypertension 05/30/201808/20 documented as of this encounter (statuses as of 10/13/2022) [facility] History of Past illness Narrative* Problem Noted Date Diagnosed Date Resolved Date Low bone mass 08/20/2020 10/07/2021 Liver transplant candidate 05/01/2019 0 10/31/2022 Hepatic encephalopathy 03/06/201910/31 Inguinal hernia, left 07/03/20182018 Liver cyst 07/03/2018 10/31/2022 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 Pulmonary hypertension 05/30/201808/20 documented as of this encounter (statuses as of 10/31/2022) [facility] History of Past illness Narrative* Problem Noted Date Diagnosed Date Resolved Date Low bone mass 08/20/2020 10/07/2021 Liver transplant candidate 05/01/2019 0 10/31/2022 Hepatic encephalopathy 03/06/201910/31 Inguinal hernia, left 07/03/20182018 Liver cyst 07/03/2018 10/31/2022 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 Pulmonary hypertension 05/30/201808/20 documented as of this encounter (statuses as of 11/08/2022) [facility] History of Past illness Narrative* Problem Noted Date Diagnosed Date Resolved Date Low bone mass 08/20/2020 10/07/2021 Liver transplant candidate 05/01/2019 0 10/31/2022 Hepatic encephalopathy 03/06/201910/31 Inguinal hernia, left 07/03/20182018 Liver cyst 07/03/2018 10/31/2022 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 Pulmonary hypertension 05/30/201808/20 documented as of this encounter (statuses as of 11/11/2022) [facility] History of Past illness Narrative* Problem Noted Date Diagnosed Date Resolved Date Low bone mass 08/20/2020 10/07/2021 Liver transplant candidate 05/01/2019 0 10/31/2022 Hepatic encephalopathy 03/06/201910/31 Inguinal hernia, left 07/03/20182018 Liver cyst 07/03/2018 10/31/2022 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 Pulmonary hypertension 05/30/201808/20 documented as of this encounter (statuses as of 11/11/2022) [facility] History of Past illness Narrative* Problem Noted Date Diagnosed Date Resolved Date Low bone mass 08/20/2020 10/07/2021 Liver transplant candidate 05/01/2019 0 10/31/2022 Hepatic encephalopathy 03/06/201910/31 Inguinal hernia, left 07/03/20182018 Liver cyst 07/03/2018 10/31/2022 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 Pulmonary hypertension 05/30/201808/20 documented as of this encounter (statuses as of 11/11/2022) [facility] History of Past illness Narrative* Problem Noted Date Diagnosed Date Resolved Date Low bone mass 08/20/2020 10/07/2021 Liver transplant candidate 05/01/2019 0 10/31/2022 Hepatic encephalopathy 03/06/201910/31 Inguinal hernia, left 07/03/20182018 Liver cyst 07/03/2018 10/31/2022 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 Pulmonary hypertension 05/30/201808/20 documented as of this encounter (statuses as of 11/11/2022) [facility] History of Past illness Narrative* Problem Noted Date Diagnosed Date Resolved Date Low bone mass 08/20/2020 10/07/2021 Liver transplant candidate 05/01/2019 0 10/31/2022 Hepatic encephalopathy 03/06/201910/31 Inguinal hernia, left 07/03/20182018 Liver cyst 07/03/2018 10/31/2022 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 Pulmonary hypertension 05/30/201808/20 documented as of this encounter (statuses as of 11/15/2022) [facility] History of Past illness Narrative* Problem Noted Date Diagnosed Date Resolved Date Low bone mass 08/20/2020 10/07/2021 Liver transplant candidate 05/01/2019 0 10/31/2022 Hepatic encephalopathy 03/06/201910/31 Inguinal hernia, left 07/03/20182018 Liver cyst 07/03/2018 10/31/2022 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 Pulmonary hypertension 05/30/201808/20 documented as of this encounter (statuses as of 11/15/2022) [facility] History of Past illness Narrative* Problem Noted Date Diagnosed Date Resolved Date Low bone mass 08/20/2020 10/07/2021 Liver transplant candidate 05/01/2019 0 10/31/2022 Hepatic encephalopathy 03/06/201910/31 Inguinal hernia, left 07/03/20182018 Liver cyst 07/03/2018 10/31/2022 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 Pulmonary hypertension 05/30/201808/20 documented as of this encounter (statuses as of 11/16/2022) [facility] History of Past illness Narrative* Problem Noted Date Diagnosed Date Resolved Date Low bone mass 08/20/2020 10/07/2021 Liver transplant candidate 05/01/2019 0 10/31/2022 Hepatic encephalopathy 03/06/201910/31 Inguinal hernia, left 07/03/20182018 Liver cyst 07/03/2018 10/31/2022 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 Pulmonary hypertension 05/30/201808/20 documented as of this encounter (statuses as of 11/18/2022) [facility] History of Past illness Narrative* Problem Noted Date Diagnosed Date Resolved Date Low bone mass 08/20/2020 10/07/2021 Liver transplant candidate 05/01/2019 0 10/31/2022 Hepatic encephalopathy 03/06/201910/31 Inguinal hernia, left 07/03/20182018 Liver cyst 07/03/2018 10/31/2022 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 Pulmonary hypertension 05/30/201808/20 documented as of this encounter (statuses as of 11/20/2022) [facility] History of Past illness Narrative* Problem Noted Date Diagnosed Date Resolved Date Low bone mass 08/20/2020 10/07/2021 Liver transplant candidate 05/01/2019 0 10/31/2022 Hepatic encephalopathy 03/06/201910/31 Inguinal hernia, left 07/03/20182018 Liver cyst 07/03/2018 10/31/2022 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 Pulmonary hypertension 05/30/201808/20 documented as of this encounter (statuses as of 12/09/2022) [facility] History of Past illness Narrative* Problem Noted Date Diagnosed Date Resolved Date Low bone mass 08/20/2020 10/07/2021 Liver transplant candidate 05/01/2019 0 10/31/2022 Hepatic encephalopathy 03/06/201910/31 Inguinal hernia, left 07/03/20182018 Liver cyst 07/03/2018 10/31/2022 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 Pulmonary hypertension 05/30/201808/20 documented as of this encounter (statuses as of 01/12/2023) [facility] History of Past illness Narrative* Problem Noted Date Diagnosed Date Resolved Date Low bone mass 08/20/2020 10/07/2021 Liver transplant candidate 05/01/2019 0 10/31/2022 Hepatic encephalopathy 03/06/201910/31 Inguinal hernia, left 07/03/20182018 Liver cyst 07/03/2018 10/31/2022 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 Pulmonary hypertension 05/30/201808/20 documented as of this encounter (statuses as of 01/18/2023) [facility] History of Past illness Narrative* Problem Noted Date Diagnosed Date Resolved Date Low bone mass 08/20/2020 10/07/2021 Liver transplant candidate 05/01/2019 0 10/31/2022 Hepatic encephalopathy 03/06/201910/31 Inguinal hernia, left 07/03/20182018 Liver cyst 07/03/2018 10/31/2022 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 Pulmonary hypertension 05/30/201808/20 documented as of this encounter (statuses as of 02/02/2023) [facility] History of Past illness Narrative* Problem Noted Date Diagnosed Date Resolved Date Low bone mass 08/20/2020 10/07/2021 Liver transplant candidate 05/01/2019 0 10/31/2022 Hepatic encephalopathy 03/06/201910/31 Inguinal hernia, left 07/03/20182018 Liver cyst 07/03/2018 10/31/2022 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 Pulmonary hypertension 05/30/201808/20 documented as of this encounter (statuses as of 02/06/2023) [facility] History of Past illness Narrative* Problem Noted Date Diagnosed Date Resolved Date Low bone mass 08/20/2020 10/07/2021 Liver transplant candidate 05/01/2019 0 10/31/2022 Hepatic encephalopathy 03/06/201910/31 Inguinal hernia, left 07/03/20182018 Liver cyst 07/03/2018 10/31/2022 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 Pulmonary hypertension 05/30/201808/20 documented as of this encounter (statuses as of 02/06/2023) [facility] History of Past illness Narrative* Problem Noted Date Diagnosed Date Resolved Date Low bone mass 08/20/2020 10/07/2021 Liver transplant candidate 05/01/2019 0 10/31/2022 Hepatic encephalopathy 03/06/201910/31 Inguinal hernia, left 07/03/20182018 Liver cyst 07/03/2018 10/31/2022 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 Pulmonary hypertension 05/30/201808/20 documented as of this encounter (statuses as of 02/06/2023) [facility] History of Past illness Narrative* Problem Noted Date Diagnosed Date Resolved Date Low bone mass 08/20/2020 10/07/2021 Liver transplant candidate 05/01/2019 0 10/31/2022 Hepatic encephalopathy 03/06/201910/31 Inguinal hernia, left 07/03/20182018 Liver cyst 07/03/2018 10/31/2022 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 Pulmonary hypertension 05/30/201808/20 documented as of this encounter (statuses as of 02/06/2023) [facility] History of Past illness Narrative* Problem Noted Date Diagnosed Date Resolved Date Low bone mass 08/20/2020 10/07/2021 Liver transplant candidate 05/01/2019 0 10/31/2022 Hepatic encephalopathy 03/06/201910/31 Inguinal hernia, left 07/03/20182018 Liver cyst 07/03/2018 10/31/2022 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 Pulmonary hypertension 05/30/201808/20 documented as of this encounter (statuses as of 05/11/2023) [facility] History of Past illness Narrative* Problem Noted Date Diagnosed Date Resolved Date Low bone mass 08/20/2020 10/07/2021 Liver transplant candidate 05/01/2019 0 10/31/2022 Hepatic encephalopathy 03/06/201910/31 Inguinal hernia, left 07/03/20182018 Liver cyst 07/03/2018 10/31/2022 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 Pulmonary hypertension 05/30/201808/20 documented as of this encounter (statuses as of 05/22/2023) [facility] History of Past illness Narrative* Problem Noted Date Diagnosed Date Resolved Date Low bone mass 08/20/2020 10/07/2021 Liver transplant candidate 05/01/2019 0 10/31/2022 Hepatic encephalopathy 03/06/201910/31 Inguinal hernia, left 07/03/20182018 Liver cyst 07/03/2018 10/31/2022 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 Pulmonary hypertension 05/30/201808/20 documented as of this encounter (statuses as of 05/25/2023) [facility] History of Past illness Narrative* Problem Noted Date Diagnosed Date Resolved Date Low bone mass 08/20/2020 10/07/2021 Liver transplant candidate 05/01/2019 0 10/31/2022 Hepatic encephalopathy 03/06/201910/31 Inguinal hernia, left 07/03/20182018 Liver cyst 07/03/2018 10/31/2022 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 Pulmonary hypertension 05/30/201808/20 documented as of this encounter (statuses as of 05/25/2023) [facility] History of Past illness Narrative* Problem Noted Date Diagnosed Date Resolved Date Low bone mass 08/20/2020 10/07/2021 Liver transplant candidate 05/01/2019 0 10/31/2022 Hepatic encephalopathy 03/06/201910/31 Inguinal hernia, left 07/03/20182018 Liver cyst 07/03/2018 10/31/2022 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 Pulmonary hypertension 05/30/201808/20 documented as of this encounter (statuses as of 07/13/2023) [facility] History of Past illness Narrative* Problem Noted Date Resolved Date Inguinal hernia, left 07/03/2018 09/12/2018 Pulmonary hypertension 05/30/2018 1 documented as of this encounter (statuses as of 06/29/2021) [facility] History of Past illness Narrative* Problem Noted Date Resolved Date Inguinal hernia, left 07/03/2018 09/12/2018 Pulmonary hypertension 05/30/2018 1 documented as of this encounter (statuses as of 06/30/2021) [facility] History of Past illness Narrative* Problem Noted Date Resolved Date Inguinal hernia, left 07/03/2018 09/12/2018 Pulmonary hypertension 05/30/2018 1 documented as of this encounter (statuses as of 07/13/2021) [facility] History of Past illness Narrative* Problem Noted Date Resolved Date Inguinal hernia, left 07/03/2018 09/12/2018 Pulmonary hypertension 05/30/2018 1 documented as of this encounter (statuses as of 07/14/2021) [facility] History of Past illness Narrative* Problem Noted Date Resolved Date Inguinal hernia, left 07/03/2018 09/12/2018 Pulmonary hypertension 05/30/2018 1 documented as of this encounter (statuses as of 07/14/2021) [facility] History of Past illness Narrative* Problem Noted Date Resolved Date Inguinal hernia, left 07/03/2018 09/12/2018 Pulmonary hypertension 05/30/2018 1 documented as of this encounter (statuses as of 07/17/2021) [facility] History of Past illness Narrative* Problem Noted Date Resolved Date Inguinal hernia, left 07/03/2018 09/12/2018 Pulmonary hypertension 05/30/2018 1 documented as of this encounter (statuses as of 07/19/2021) [facility] History of Past illness Narrative* Problem Noted Date Resolved Date Inguinal hernia, left 07/03/2018 09/12/2018 Pulmonary hypertension 05/30/2018 1 documented as of this encounter (statuses as of 07/31/2021) [facility] History of Past illness Narrative* Problem Noted Date Resolved Date Inguinal hernia, left 07/03/2018 09/12/2018 Pulmonary hypertension 05/30/2018 1 documented as of this encounter (statuses as of 08/10/2021) [facility] History of Past illness Narrative* Problem Noted Date Resolved Date Inguinal hernia, left 07/03/2018 09/12/2018 Pulmonary hypertension 05/30/2018 1 documented as of this encounter (statuses as of 09/10/2021) [facility] History of Past illness Narrative* Problem Noted Date Resolved Date Inguinal hernia, left 07/03/2018 09/12/2018 Pulmonary hypertension 05/30/2018 1 documented as of this encounter (statuses as of 09/13/2021) [place] [address]-02-2019 History of Past illness Narrative* Problem Noted Date Resolved Date Inguinal hernia, left 07/03/2018 09/12/2018 Pulmonary hypertension 05/30/2018 1 documented as of this encounter (statuses as of 09/13/2021) [facility] History of Past illness Narrative* Problem Noted Date Resolved Date Inguinal hernia, left 07/03/2018 09/12/2018 Pulmonary hypertension 05/30/2018 1 documented as of this encounter (statuses as of 09/17/2021) [facility] History of Past illness Narrative* Problem Noted Date Resolved Date Inguinal hernia, left 07/03/2018 09/12/2018 Pulmonary hypertension 05/30/2018 1 documented as of this encounter (statuses as of 09/18/2021) [facility] History of Past illness Narrative* Problem Noted Date Resolved Date Inguinal hernia, left 07/03/2018 09/12/2018 Pulmonary hypertension 05/30/2018 1 documented as of this encounter (statuses as of 09/20/2021) [place] [address]-02-2019 History of Past illness Narrative* Problem Noted Date Resolved Date Inguinal hernia, left 07/03/2018 09/12/2018 Pulmonary hypertension 05/30/2018 1 documented as of this encounter (statuses as of 10/05/2021) [facility]- 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 Liver transplant candidate Elevated tumor markers Other abnormal tumor markers Abnormal results of liver function studies Nonspecific abnormal results of liver function study [facility] Vitamin A deficiency- Primary Unspecified vitamin A deficiency Vitamin D deficiency Unspecified vitamin D deficiency Cirrhosis of liver with ascites, unspecified hepatic cirrhosis type (HCC) [facility] Cirrhosis of liver with ascites, unspecified hepatic cirrhosis type (HCC)- Primary [facility] Cirrhosis of liver with ascites, unspecified hepatic cirrhosis type (HCC) [facility] [place] [facility] Diagnosis Liver cirrhosis [...] Osteopenia, unspecified location [facility] Diagnosis 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 [facility] Diagnosis Cirrhosis of liver with ascites, unspecified hepatic cirrhosis type (HCC) [facility] [place] [facility]* Diagnosis Vitamin A deficiency Unspecified vitamin A deficiency [facility] Liver transplant candidate [place] (nonalcoholic steatohepatitis) Other chronic nonalcoholic liver disease [facility] Diagnosis 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 Other ascites Liver transplant candidate Portal hypertension with esophageal varices (HCC) Portal hypertension Hepatic encephalopathy (HCC) Hepatic encephalopathy History of colonic polyps Personal history of colonic polyps Vitamin D deficiency Unspecified vitamin D deficiency Vitamin A deficiency Unspecified vitamin A deficiency [facility] Diagnosis Cirrhosis of liver with ascites, unspecified hepatic cirrhosis type (HCC) [facility] Diagnosis Age-related osteoporosis without current pathological fracture- Primary Senile osteoporosis Vitamin D deficiency Unspecified vitamin D deficiency 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 Liver transplant candidate Incisional hernia, without obstruction or gangrene- Primary Incisional hernia without mention of obstruction or gangrene [facility] Incisional hernia, without obstruction or gangrene- Primary Incisional hernia without mention of obstruction or gangrene [facility] Diagnosis Cirrhosis of liver with ascites, unspecified hepatic cirrhosis type (HCC) [facility] Diagnosis 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 Preoperative examination Preoperative examination, unspecified Unilateral inguinal hernia without obstruction or gangrene, recurrence not specified [facility] [place] [facility] Diagnosis Preoperative examination- Primary Preoperative examination, unspecified Unilateral inguinal hernia without obstruction or gangrene, recurrence not specified Preoperative examination Preoperative examination, unspecified Unilateral inguinal hernia without obstruction or gangrene, recurrence not specified [facility] [place] [facility] Diagnosis Liver cirrhosis [...] recurrence not specified [facility] [place] [facility]* Diagnosis Age-related osteoporosis without current pathological fracture- Primary Senile osteoporosis [facility] [place] [facility] Diagnosis Cirrhosis of liver with ascites, unspecified hepatic cirrhosis type (HCC) [facility] [place] [facility]* Diagnosis Thrombocytopenia (HCC) Thrombocytopenia, unspecified Cirrhosis of liver with ascites, unspecified hepatic cirrhosis type (HCC) Liver transplant candidate [facility] [place] [facility]* Diagnosis Other ascites- Primary [facility] [place] [facility]* Diagnosis 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 [facility]* Diagnosis Lung nodules Other nonspecific abnormal finding of lung field [facility] Diagnosis Cirrhosis of liver with ascites, unspecified hepatic cirrhosis type (HCC)- Primary [facility]* Diagnosis Preoperative examination- Primary Preoperative examination, unspecified Unilateral inguinal hernia without obstruction or gangrene, recurrence not specified [facility] [place] [facility]* Diagnosis Pneumonia of right lower lobe due to infectious organism- Primary Chronic rhinitis Preoperative examination Preoperative examination, unspecified Unilateral inguinal hernia without obstruction or gangrene, recurrence not specified [facility] [place] [facility] Diagnosis Incisional hernia, without obstruction or gangrene- Primary Incisional hernia without mention of obstruction or gangrene Preoperative examination Preoperative examination, unspecified Unilateral inguinal hernia without obstruction or gangrene, recurrence not specified documented in this encounter [facility] note* Diagnosis Pre-operative examination- Primary Preoperative examination, unspecified Essential hypertension Unspecified essential hypertension Dyslipidemia Other and unspecified hyperlipidemia Coronary artery disease involving [place] coronary artery of [place] heart without angina pectoris Chronic obstructive pulmonary disease, unspecified COPD type (HCC) Histoplasmosis Histoplasmosis, unspecified without mention of manifestation Cirrhosis of liver with ascites, unspecified hepatic cirrhosis type (HCC) Portal hypertension with esophageal varices (HCC) Portal hypertension Thrombocytopenia (HCC) Thrombocytopenia, unspecified Preoperative examination Preoperative examination, unspecified Unilateral inguinal hernia without obstruction or gangrene, recurrence not specified documented in this encounter [facility] note* Diagnosis Cirrhosis of liver with ascites, unspecified hepatic cirrhosis type (HCC) Preoperative examination Preoperative examination, unspecified Unilateral inguinal hernia without obstruction or gangrene, recurrence not specified documented in this encounter [facility] note* Diagnosis Vitamin D deficiency- Primary Unspecified vitamin D deficiency Cirrhosis of liver with ascites, unspecified hepatic cirrhosis type (HCC) Vitamin A deficiency Unspecified vitamin A deficiency Hepatic encephalopathy Preoperative examination Preoperative examination, unspecified Unilateral inguinal hernia without obstruction or gangrene, recurrence not specified documented in this encounter [facility] note* Diagnosis Chronic rhinitis- Primary Pneumonia of right lower lobe due to infectious organism Preoperative examination Preoperative examination, unspecified Unilateral inguinal hernia without obstruction or gangrene, recurrence not specified documented in this encounter [facility] note* Diagnosis Preoperative examination- Primary Preoperative examination, unspecified Unilateral inguinal hernia without obstruction or gangrene, recurrence not specified 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 Centrilobular emphysema (HCC) Other emphysema Preoperative examination Preoperative examination, unspecified Unilateral inguinal hernia without obstruction or gangrene, recurrence not specified documented in this encounter [facility] note* Diagnosis 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 Preoperative examination Preoperative examination, unspecified Unilateral inguinal hernia without obstruction or gangrene, recurrence not specified documented in this encounter [facility] note* Diagnosis Cirrhosis of liver with ascites, unspecified hepatic cirrhosis type (HCC) Preoperative examination Preoperative examination, unspecified Unilateral inguinal hernia without obstruction or gangrene, recurrence not specified [facility] [place] [facility]* Diagnosis Cirrhosis of liver with ascites, unspecified hepatic cirrhosis type (HCC) [facility] [place] [facility]* Diagnosis Unilateral inguinal hernia without obstruction or gangrene, recurrence not specified- Primary [facility] [place] [facility]* Diagnosis Unilateral inguinal hernia without obstruction or gangrene, recurrence not specified- Primary documented in this encounter [facility] note* Diagnosis Cirrhosis of liver with ascites, unspecified hepatic cirrhosis type (HCC)- Primary [facility] [place] [facility]* Diagnosis Other ascites- Primary documented in this encounter [facility] note* Diagnosis Other ascites Cirrhosis of liver with ascites, unspecified hepatic cirrhosis type (HCC) [facility] [place] [facility]* Diagnosis Cirrhosis of [...] unspecified hydrocele type documented in this encounter [facility] note* Diagnosis 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)- Primary Other chronic nonalcoholic liver disease Portal hypertension with esophageal varices (HCC) Portal hypertension Liver transplant candidate Unilateral inguinal hernia without obstruction or gangrene, recurrence not specified Chronic obstructive pulmonary disease, unspecified COPD type (HCC) documented in this encounter [facility] note* Diagnosis Unilateral inguinal hernia without obstruction or gangrene, recurrence not specified Hydrocele, unspecified hydrocele type documented in this encounter [facility] note* Diagnosis Onset Date Resolution Status Ascites acute [facility] Work Phone: Evaluation note* Diagnosis 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 documented in this encounter [facility] note* Diagnosis Cirrhosis of liver with ascites, unspecified hepatic cirrhosis type (HCC) [facility] [place] [facility]* Diagnosis Liver replaced by transplant (HCC)- Primary Liver replaced by transplant [facility] Diagnosis Status post liver transplant (HCC)- Primary Liver replaced by transplant [facility]* Diagnosis Portal hypertensive gastropathy (HCC) Other specified disorder of stomach and duodenum 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 [facility] [place] [facility]* Diagnosis Research study patient- Primary Liver replaced by transplant (HCC) Liver replaced by transplant [facility] [place] [facility]* Diagnosis Liver transplant recipient (HCC)- Primary [facility] [place] [facility]* Diagnosis Scrotal swelling- Primary Edema of male genital organs Liver transplant recipient (HCC) [facility]* Diagnosis Steroid-induced hyperglycemia- Primary Other abnormal glucose [facility] [place] [facility]* Diagnosis Liver replaced by transplant (HCC) Liver replaced by transplant [facility] [place] [facility]* Diagnosis Liver replaced [...] for prophylactic immunotherapy [facility] [place] [facility]* Diagnosis Portal hypertensive [...] male genital organs [facility]* Diagnosis Unilateral inguinal hernia without obstruction or gangrene, recurrence not specified- Primary [facility]* Diagnosis Liver replaced by transplant (HCC)- Primary Liver replaced by transplant [facility] [place] [facility]* Diagnosis Liver replaced by transplant (HCC)- Primary Liver replaced by transplant [facility] Diagnosis Unilateral inguinal hernia without obstruction or gangrene, recurrence not specified- Primary [facility] Liver replaced by transplant (HCC) Liver replaced by transplant [facility] [place] [facility]* Diagnosis Research subject- Primary Liver replaced by transplant (HCC) Liver replaced by transplant [facility] [place] [facility]* Diagnosis Liver replaced by transplant (HCC)- Primary Liver replaced by transplant Immunosuppressed status (HCC) Unspecified disorder of immune mechanism [facility] [place] [facility]* Diagnosis Scrotal swelling Edema of male genital organs Liver transplant recipient (HCC) [facility] [place] [facility]* Diagnosis Unilateral inguinal hernia without obstruction or gangrene, recurrence not specified [facility] Diagnosis Unilateral inguinal hernia without obstruction or gangrene, recurrence not specified [facility] [place] [facility]* Diagnosis Liver replaced by transplant (HCC)- Primary Liver replaced by transplant Liver replaced by transplant (HCC) Liver replaced by transplant [facility] [place] [facility]* Diagnosis Liver replaced by transplant (HCC) Liver replaced by transplant [facility]* Diagnosis Acute left-sided low back pain with left-sided sciatica- Primary S/P lumbar laminectomy Other postprocedural status [facility]* Diagnosis Liver replaced by transplant (HCC) Liver replaced by transplant [facility]* Diagnosis Liver replaced by transplant (HCC) Liver replaced by transplant [facility] [place] [facility] Diagnosis Liver replaced by transplant (HCC)- Primary Liver replaced by transplant [facility]* Diagnosis Unilateral inguinal hernia without obstruction or gangrene, recurrence not specified [facility] [place] [facility]* Diagnosis 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 [facility] Diagnosis Other ascites [facility]No [facility]* Diagnosis Portal hypertension with esophageal varices (HCC) Portal hypertension [facility] Diagnosis Liver cirrhosis secondary to [place] [...] and unspecified hyperlipidemia Coronary artery disease involving [place] coronary artery of [place] heart without angina pectoris Chronic obstructive pulmonary [...] Long-term current use of tacrolimus Encounter for continuous churn buttermaker current azathioprine therapy Encounter for long-term (current) use of other medications retirement current use of systemic steroids Encounter for long-term (current) use of steroids Liver replaced by transplant (HCC) Liver replaced by transplant Essential hypertension, malignant Thrombocytopenia, unspecified (HCC) Thrombocytopenia, unspecified Atherosclerosis of [place] coronary artery without angina pectoris, unspecified whether [place] or transplanted heart Respiratory system complication of care Acute posthemorrhagic anemia Hyperglycemia Other abnormal glucose Acute postoperative pulmonary insufficiency (HCC) Acute blood loss anemia Acute posthemorrhagic anemia CAD (coronary artery disease) Coronary atherosclerosis of unspecified type of vessel, [place] or graft Essential hypertension Unspecified essential hypertension Thrombocytopenia (HCC) Thrombocytopenia, unspecified Liver transplant recipient (HCC) Need for prophylactic immunotherapy Hyperglycemia Other abnormal glucose Elevated LFTs- Primary Other abnormal blood chemistry At risk for bleeding Other specified conditions influencing health status Elevated LFTs Other abnormal blood chemistry [facility] [place] [facility]* Diagnosis Liver cirrhosis [...] and unspecified hyperlipidemia Coronary artery disease involving [place] coronary artery of [place] heart without angina pectoris Chronic obstructive pulmonary [...] Long-term current use of tacrolimus Encounter for custodial current azathioprine therapy Encounter for long-term (current) use of other medications retirement current use of systemic steroids Encounter for long-term (current) use of steroids Liver replaced by transplant (HCC) Liver replaced by transplant Essential hypertension, malignant Thrombocytopenia, unspecified (HCC) Thrombocytopenia, unspecified Atherosclerosis of [place] coronary artery without angina pectoris, unspecified whether [place] or transplanted heart Respiratory system complication of care Acute posthemorrhagic anemia Hyperglycemia Other abnormal glucose Acute postoperative pulmonary insufficiency (HCC) Acute blood loss anemia Acute posthemorrhagic anemia CAD (coronary artery disease) Coronary atherosclerosis of unspecified type of vessel, [place] or graft Essential hypertension Unspecified essential hypertension Thrombocytopenia (HCC) Thrombocytopenia, unspecified Liver transplant recipient (HCC) Need for prophylactic immunotherapy Hyperglycemia Other abnormal glucose Abnormal blood chemistry- Primary Other abnormal blood chemistry Elevated LFTs Other abnormal blood chemistry Elevated LFTs Other abnormal blood chemistry [facility] [place] [facility] Diagnosis Liver cirrhosis [...] and unspecified hyperlipidemia Coronary artery disease involving [place] coronary artery of [place] heart without angina pectoris Chronic obstructive pulmonary [...] Long-term current use of tacrolimus Encounter for continuous churn buttermaker current azathioprine therapy Encounter for long-term (current) use of other medications 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 current use of systemic steroids Encounter for long-term (current) use of steroids Liver replaced by transplant (HCC) Liver replaced by transplant Essential hypertension, malignant Thrombocytopenia, unspecified (HCC) Thrombocytopenia, unspecified Atherosclerosis of [place] coronary artery without angina pectoris, unspecified whether [place] or transplanted heart Respiratory system complication of care Acute posthemorrhagic anemia Hyperglycemia Other abnormal glucose Acute postoperative pulmonary insufficiency (HCC) Acute blood loss anemia Acute posthemorrhagic anemia CAD (coronary artery disease) Coronary atherosclerosis of unspecified type of vessel, [place] or graft Essential hypertension Unspecified essential hypertension Thrombocytopenia (HCC) Thrombocytopenia, unspecified Liver transplant recipient (HCC) Need for prophylactic immunotherapy Hyperglycemia Other abnormal glucose Elevated LFTs Other abnormal blood chemistry [facility] Diagnosis Liver cirrhosis secondary to [place] [...] and unspecified hyperlipidemia Coronary artery disease involving [place] coronary artery of [place] heart without angina pectoris Chronic obstructive pulmonary [...] Long-term current use of tacrolimus Encounter for continuous churn buttermaker current azathioprine therapy Encounter for long-term (current) use of other medications 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 current use of systemic steroids Encounter for long-term (current) use of steroids Liver replaced by transplant (HCC) Liver replaced by transplant Essential hypertension, malignant Thrombocytopenia, unspecified (HCC) Thrombocytopenia, unspecified Atherosclerosis of [place] coronary artery without angina pectoris, unspecified whether [place] or transplanted heart Respiratory system complication of care Acute posthemorrhagic anemia Hyperglycemia Other abnormal glucose Acute postoperative pulmonary insufficiency (HCC) Acute blood loss anemia Acute posthemorrhagic anemia CAD (coronary artery disease) Coronary atherosclerosis of unspecified type of vessel, [place] or graft Essential hypertension Unspecified essential hypertension Thrombocytopenia (HCC) Thrombocytopenia, unspecified Liver transplant recipient (HCC) Need for prophylactic immunotherapy Hyperglycemia Other abnormal glucose Liver replaced by transplant (HCC)- Primary Liver replaced by transplant [facility] [place] [facility]* Diagnosis 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 Preoperative examination Preoperative examination, unspecified Unilateral inguinal hernia without obstruction or gangrene, recurrence not specified Portal hypertensive gastropathy (HCC) Other specified disorder of stomach and duodenum Iron deficiency Iron deficiency anemia, unspecified Thrombocytopenia Thrombocytopenia, unspecified Essential hypertension Unspecified essential hypertension Abdominal aortic aneurysm (AAA) without rupture Other ascites Portal hypertension with esophageal varices (HCC) Portal hypertension Histoplasmosis Histoplasmosis, unspecified without mention of manifestation Pre-operative examination- Primary Preoperative examination, unspecified Essential hypertension Unspecified essential hypertension Dyslipidemia Other and unspecified hyperlipidemia Coronary artery disease involving [place] coronary artery of [place] heart without angina pectoris Chronic obstructive pulmonary disease, unspecified COPD type (HCC) Histoplasmosis Histoplasmosis, unspecified without mention of manifestation Cirrhosis of liver with ascites, unspecified hepatic cirrhosis type (HCC) Portal hypertension with esophageal varices (HCC) Portal hypertension Thrombocytopenia Thrombocytopenia, unspecified Cirrhosis of liver with ascites, unspecified hepatic cirrhosis type (HCC)- Primary Transplant recipient Other specified organ or tissue replaced by transplant Coagulopathy (HCC) Other and unspecified coagulation defects Anemia, unspecified type Acute postoperative pain Other acute postoperative pain Vitamin D deficiency Unspecified vitamin D deficiency Encounter for therapeutic drug monitoring Long-term current use of tacrolimus Encounter for custodial current azathioprine therapy Encounter for long-term (current) use of other medications retirement current use of systemic steroids Encounter for long-term (current) use of steroids Liver replaced by transplant (HCC) Liver replaced by transplant Essential hypertension, malignant Thrombocytopenia, unspecified Atherosclerosis of [place] coronary artery without angina pectoris, unspecified whether [place] or transplanted heart Respiratory system complication of care Acute posthemorrhagic anemia Hyperglycemia Other abnormal glucose Acute postoperative pulmonary insufficiency Acute blood loss anemia Acute posthemorrhagic anemia CAD (coronary artery disease) Coronary atherosclerosis of unspecified type of vessel, [place] or graft Essential hypertension Unspecified essential hypertension Thrombocytopenia Thrombocytopenia, unspecified Liver transplant recipient (HCC) Need for prophylactic immunotherapy Hyperglycemia Other abnormal glucose Inguinal hernia without obstruction or gangrene, recurrence not specified, unspecified laterality- Primary documented in this encounter [facility] Narrative - Reported* Type Description [...] See above surg. hx. Hospitalization History Ascites I-Pulse Other reason for referral (narrative)* Outpatient Procedure (Routine) - Pending Review Specialty Diagnoses / Procedures Referred By Melinda lopez Referred [facility] Diagnoses Other ascites Procedures ABDOM PARACENTESIS DX/THER W IMAGING GUIDANCE ABDOM PARACENTESIS DX/THER W IMAGING GUIDANCE Dayna Reyes MD [address] [facility] [place] [address] [place] [address] Referral ID Status Reason Start Date Expiration Date Visits Requested Visits Authorized [id number] Pending Review Auto-Generat ed Referral 06/29/2021 06/29/2022 52 52 [facility] for referral (narrative)* Diagnostic Procedure Only (Routine) - Pending Review Specialty Diagnoses / Procedures Referred By Contac t Referred To Contact US IMAGING Diagnoses Cirrhosis of liver with ascites, unspecified hepatic cirrhosis type (HCC) Procedures US DOPPLER COMPLETE DUP-SCAN ARTL GREY ABDL/PEL/SCROT&/RPR ORGN COM Dayna Reyes MD [address] [place] [address] Us Imaging Referral ID Status Reason Start Date Expiration Date Visits Requested Visits Authorized [id number] Pending Review Auto-Generat ed Referral 07/12/2021 08/11/2022 1 1 * Diagnostic Procedure Only (Routine) - Pending Review Specialty Diagnoses / Procedures Referred By Contac t Referred To Contact US IMAGING Diagnoses Cirrhosis of liver with ascites, unspecified hepatic cirrhosis type (HCC) Procedures US ABD LIVER VASCULAR US ABDOMINAL REAL TIME W/IMAGE LIMITED DUP-SCAN ARTL GREY ABDL/PEL/SCROT&/RPR ORGN COM Dayna Reyes MD [address] [place] [address] Us Imaging Referral ID Status Reason Start Date Expiration Date Visits Requested Visits Authorized [id number] Pending Review Auto-Generat ed Referral 07/12/2021 08/11/2022 1 1 [facility] for referral (narrative)* Diagnostic Procedure Only (Routine) - Pending Review Specialty Diagnoses / Procedures Referred By Contac t Referred To Contact US IMAGING Diagnoses Cirrhosis of liver with ascites, unspecified hepatic cirrhosis type (HCC) Procedures US DOPPLER COMPLETE DUP-SCAN ARTL GREY ABDL/PEL/SCROT&/RPR ORGN COM Dayna Reyes MD [address] [place] [address] Us Imaging Referral ID Status Reason Start Date Expiration Date Visits Requested Visits Authorized [id number] Pending Review Auto-Generat ed Referral 07/13/2021 08/12/2022 1 1 * Diagnostic Procedure Only (Routine) - Pending Review Specialty Diagnoses / Procedures Referred By Contac t Referred To Contact US IMAGING Diagnoses Cirrhosis of liver with ascites, unspecified hepatic cirrhosis type (HCC) Procedures US ABD LIVER VASCULAR US ABDOMINAL REAL TIME W/IMAGE LIMITED DUP-SCAN ARTL GREY ABDL/PEL/SCROT&/RPR ORGN COM Dayna Reyes MD [address] [place] [address] Us Imaging Referral ID Status Reason Start Date Expiration Date Visits Requested Visits Authorized [id number] Pending Review Auto-Generat ed Referral 07/13/2021 08/12/2022 1 1 [facility] for referral (narrative)* Diagnostic Procedure Only (Routine) - Closed Specialty Diagnoses / Procedures Referred By Contac t Referred To Contact US IMAGING Diagnoses Cirrhosis of liver with ascites, unspecified hepatic cirrhosis type (HCC) Procedures US ABD LIVER VASCULAR US ABDOMINAL REAL TIME W/IMAGE LIMITED DUP-SCAN ARTL GREY ABDL/PEL/SCROT&/RPR ORGN COM Dayna Reyes MD [address] [place] [address] Us Imaging Referral ID Status Reason Start Date Expiration Date Visits Re quested Visits Authorized [id number] Closed 07/13/2021 04/02/2022 1 1 * Diagnostic Procedure Only (Routine) - Closed Specialty Diagnoses / Procedures Referred By Contac t Referred To Contact US IMAGING Diagnoses Cirrhosis of liver with ascites, unspecified hepatic cirrhosis type (HCC) Procedures US DOPPLER COMPLETE DUP-SCAN ARTL GREY ABDL/PEL/SCROT&/RPR ORGN COM Dayna Reyes MD [address] [place] [address] Us Imaging Referral ID Status Reason Start Date Expiration Date Visits Re quested Visits Authorized [id number] Closed 07/13/2021 04/02/2022 1 1 [facility] for referral (narrative)* Outpatient Procedure (Routine) - Authorized Specialty Diagnoses / Procedures Referred By Pritiac t Referred To Contact [facility] [place] Diagnoses Preoperative examination Unilateral inguinal hernia without obstruction or gangrene, recurrence not specified Procedures ECG COMPLETE ECG ROUTINE ECG W/LEAST 12 LDS W/I&R Tenisha Granados PA-C [address] [place] [address] [facility] [place] [id number] Referral ID Status Reason Start Date Expiration Date Visits Requested Visits Authorized [id number] Authorized Auto-Generat ed Referral 11/11/2021 11/11/2022 1 1 [facility] for referral (narrative)* Diagnostic Procedure Only (Routine) - Closed Specialty Diagnoses / Procedures Referred By Melinda t Referred To Contact US IMAGING Diagnoses Cirrhosis of liver with ascites, unspecified hepatic cirrhosis type (HCC) Procedures US DOPPLER COMPLETE DUP-SCAN ARTL GREY ABDL/PEL/SCROT&/RPR ORGN COM Dayna Reyes MD [address] [place] [address] Us Imaging Referral ID Status Reason Start Date Expiration Date V isits Requested Visits Authorized [id number] Closed Auto-Generate d Referral 07/13/2021 08/12/2022 1 1 * Diagnostic Procedure Only (Routine) - Closed Specialty Diagnoses / Procedures Referred By Contac t Referred To Contact US IMAGING Diagnoses Cirrhosis of liver with ascites, unspecified hepatic cirrhosis type (HCC) Procedures US ABD LIVER VASCULAR US ABDOMINAL REAL TIME W/IMAGE LIMITED DUP-SCAN ARTL GREY ABDL/PEL/SCROT&/RPR ORGN COM Dayna Reyes MD [address] [place] [address] Us Imaging Referral ID Status Reason Start Date Expiration Date V isits Requested Visits Authorized [id number] Closed Auto-Generate d Referral 11/30/2021 04/02/2022 1 1 [facility] for referral (narrative)* Diagnostic Procedure Only (Routine) - Pending Review Specialty Diagnoses / Procedures Referred By Pritiac t Referred To Contact US IMAGING Diagnoses Other ascites Procedures US ASCITES SURVEY US ABDOMINAL REAL TIME W/IMAGE LIMITED Dayna Reyes MD [address] [place] [address] Us Imaging Referral ID Status Reason Start Date Expiration Date Visits Requested Visits Authorized [id number] Pending Review Auto-Generat ed Referral 12/20/2021 01/19/2023 1 1 [facility] for referral (narrative)* Diagnostic Procedure Only (Routine) - Pending Review Specialty Diagnoses / Procedures Referred By Melinda t Referred To Contact US IMAGING Diagnoses Cirrhosis of liver with ascites, unspecified hepatic cirrhosis type (HCC) Procedures US ASCITES SURVEY US ABDOMINAL REAL TIME W/IMAGE LIMITED Dayna Reyes MD [address] [place] [address] Us Imaging Referral ID Status Reason Start Date Expiration Date Visits Requested Visits Authorized [id number] Pending Review Auto-Generat ed Referral 01/05/2022 02/04/2023 1 1 [facility] for referral (narrative)* Outpatient Procedure (Routine) - Pending Review Specialty Diagnoses / Procedures Referred By Melinda t Referred To [facility] Diagnoses Chronic rhinitis Pneumonia of right lower lobe due to infectious organism Procedures SPIROMETRY WITH DILATOR IF OBSTRUCTED BRNCDILAT RSPSE SPMTRY PRE&POST-BRNCDILAT ADMN Lakshmi Cr DO [address] [place] [address] [place] [address] Referral ID Status Reason Start Date Expiration Date Visits Requested Visits Authorized [id number] Pending Review Auto-Generat ed Referral 2 02/12/2023 1 1 [facility] for referral (narrative)* Diagnostic Procedure Only (Routine) - Closed Specialty Diagnoses / Procedures Referred By Melinda lopez Referred To Contact US IMAGING Diagnoses Cirrhosis of liver with ascites, unspecified hepatic cirrhosis type (HCC) Procedures US ASCITES SURVEY US ABDOMINAL REAL TIME W/IMAGE LIMITED Dayna Reyes MD [address] [place] [address] Us Imaging Referral ID Status Reason Start Date Expiration Date V isits Requested Visits Authorized [id number] Closed Auto-Generate d Referral 01/20/2022 04/02/2022 1 1 [facility] for referral (narrative)* Diagnostic Procedure Only (Routine) - Authorized Specialty Diagnoses / Procedures Referred By Melinda lopez Referred To Contact US IMAGING Diagnoses 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) Procedures US ASCITES SURVEY US ABDOMINAL REAL TIME W/IMAGE LIMITED Dayna Reyes MD [address] [place] [address] Us Imaging Referral ID Status Reason Start Date Expiration Date Visits Requested Visits Authorized [id number] Authorized Auto-Generat ed Referral 2 04/02/2022 1 1 [facility] for referral (narrative)* Outpatient Procedure (Routine) - Pending Review Specialty Diagnoses / Procedures Referred By Melinda lopez Referred To Contact [facility] Diagnoses Cirrhosis of liver with ascites, unspecified hepatic cirrhosis type (HCC) Procedures ABDOM PARACENTESIS DX/THER W IMAGING GUIDANCE ABDOM PARACENTESIS DX/THER W IMAGING GUIDANCE Dayna Reyes MD [address] [place] [address] [address] Referral ID Status Reason Start Date Expiration Date Visits Requested Visits Authorized [id number] Pending Review Auto-Generat ed Referral 03/17/2023 52 1 [facility] for referral (narrative)* Outpatient Procedure (Routine) - Closed Specialty Diagnoses / Procedures Referred By Melinda lopez Referred To Contact [facility] Diagnoses Cirrhosis of liver with ascites, unspecified hepatic cirrhosis type (HCC) Procedures ABDOM PARACENTESIS DX/THER W IMAGING GUIDANCE ABDOM PARACENTESIS DX/THER W IMAGING GUIDANCE Dayna Reyes MD [address] [place] [address] [address] Referral ID Status Reason Start Date Expiration Date V isits Requested Visits Authorized [id number] Closed Auto-Generate d Referral 03/17/2022 03/17/2023 52 1 * Diagnostic Procedure Only (Routine) - Closed Specialty Diagnoses / Procedures Referred By Melinda lopez Referred To Contact [facility] Diagnoses Other ascites Procedures ABDOM PARACENTESIS DX/THER W IMAGING GUIDANCE ABDOM PARACENTESIS DX/THER W IMAGING GUIDANCE Dayna Reyes MD [address] [place] [address] [address] Referral ID Status Reason Start Date Expiration Date Visits Re quested Visits Authorized [id number] Closed 07/13/2021 04/02/2022 52 1 [facility] for referral (narrative)* Diagnostic Procedure Only (Routine) - Authorized Specialty Diagnoses / Procedures Referred By Contac t Referred To Contact US IMAGING Diagnoses Unilateral inguinal hernia without obstruction or gangrene, recurrence not specified Hydrocele, unspecified hydrocele type Procedures US SCROTUM AND CONTENTS US SCROTUM & CONTENTS Dayna Reyes MD [address] [place] [address] Us Imaging Referral ID Status Reason Start Date Expiration Date Visits Requested Visits Authorized [id number] Authorized Auto-Generat ed Referral 04/13/2022 05/13/2023 1 1 * Consult, Test, Treat (Routine) - Pending Review Specialty Diagnoses / Procedures Referred By Contac t Referred To Contact Dermatology Diagnoses Liver transplant candidate Procedures CONSULT TO DERMATOLOGY OFFICE/OUTPATIENT [facility] 60-74 MINUTES Dayna Reyes MD [address] [place] [address] Referral ID Status Reason Start Date Expiration Date Visits Requested Visits Authorized [id number] Pending Review PCP Requested Referral 04/13/2022 04/13/2023 1 1 * MRI/CT (Routine) - Authorized Specialty Diagnoses / Procedures [facility] Diagnoses Cirrhosis of liver with ascites, unspecified hepatic cirrhosis type (HCC) Procedures CT LIVER W IVCON CT ABDOMEN W/CONTRAST Dayna Reyes MD [address] [place] [address] Ct Imaging Referral ID Status Reason Start Date Expiration Date Visits Requested Visits Authorized [id number] Authorized Auto-Generat ed Referral 04/13/2022 05/13/2023 1 1 [facility] for referral (narrative)* Diagnostic Procedure Only (Routine) - Closed Specialty Diagnoses / Procedures Referred By Contac t Referred To Contact US IMAGING Diagnoses Unilateral inguinal hernia without obstruction or gangrene, recurrence not specified Hydrocele, unspecified hydrocele type Procedures US SCROTUM AND CONTENTS US SCROTUM & CONTENTS Dayna Reyes MD [address] [place] [address] Us Imaging Referral ID Status Reason Start Date Expiration Date V isits Requested Visits Authorized [id number] Closed Auto-Generate d Referral 04/13/2022 05/13/2023 1 1 [facility] for referral (narrative)* Diagnostic Procedure Only (Routine) - Authorized Specialty Diagnoses / Procedures Referred By Melinda t Referred To Contact US IMAGING Diagnoses Scrotal swelling Liver transplant recipient (HCC) Procedures US SCROTUM AND CONTENTS US SCROTUM & CONTENTS Sharon Castro MD [address] [place] [address] Us Imaging Referral ID Status Reason Start Date Expiration Date Visits Requested Visits Authorized [id number] Authorized Auto-Generat ed Referral 06/24/2022 06/26/2023 1 1 [facility] for referral (narrative)* Diagnostic Procedure Only (Routine) - Closed Specialty Diagnoses / Procedures Referred By Contclaudine t Referred To Contact US IMAGING Diagnoses Scrotal swelling Liver transplant recipient (HCC) Procedures US SCROTUM AND CONTENTS US SCROTUM & CONTENTS Sharon Castro MD [address] [place] [address] Us Imaging Referral ID Status Reason Start Date Expiration Date V isits Requested Visits Authorized [id number] Closed Auto-Generate d Referral 06/24/2022 06/26/2023 1 1 [facility] for referral (narrative)* Diagnostic Procedure Only (Urgent) - Authorized Specialty Diagnoses / Procedures Referred By Contac t Referred To Contact US IMAGING Diagnoses Liver replaced by transplant (HCC) Procedures US DOPPLER COMPLETE DUP-SCAN ARTL GREY ABDL/PEL/SCROT&/RPR ORGN COM Diane Vallecillo APRN.MANAGER OF TRAINING [address] [place] [phone] Us Imaging Referral ID Status Reason Start Date Expiration Date Visits Requested Visits Authorized [id number] Authorized Auto-Generate d Referral Patient Cleared - INN Insurance Found 11/17/2022 12/14/2023 1 1 * Diagnostic Procedure Only (Urgent) - Authorized Specialty Diagnoses / Procedures Referred By Contac t Referred To Contact US IMAGING Diagnoses Liver replaced by transplant (HCC) Procedures US ABD LIVER VASCULAR US ABDOMINAL REAL TIME W/IMAGE LIMITED DUP-SCAN ARTL GRE[place] ABDL/PEL/SCROT&/RPR ORGN COM Diane Vallecillo APRN.MANAGER OF TRAINING [address] [place] [phone] Us Imaging Referral ID Status Reason Start Date Expiration Date Visits Requested Visits Authorized [id number] Authorized Auto-Generate d Referral Patient Cleared - INN Insurance Found 11/17/2022 12/14/2023 1 1 [facility] for referral (narrative)* Diagnostic Procedure Only (Urgent) - Closed Specialty Diagnoses / Procedures Referred By Contac t Referred To Contact US IMAGING Diagnoses Liver replaced by transplant (HCC) Procedures US DOPPLER COMPLETE DUP-SCAN ARTL GREY ABDL/PEL/SCROT&/RPR ORGN COM Diane Vallecillo APRN.MANAGER OF TRAINING [address] [place] [address] Us Imaging [place] [address] Referral ID Status Reason Start Date Expiration Date V isits Requested Visits Authorized [id number] Closed Auto-Generated Referral Patient Cleared - INN Insurance Found 11/17/2022 12/14/2023 1 1 * Diagnostic Procedure Only (Urgent) - Closed Specialty Diagnoses / Procedures Referred By Contac t Referred To Contact US IMAGING Diagnoses Liver replaced by transplant (HCC) Procedures US ABD LIVER VASCULAR US ABDOMINAL REAL TIME W/IMAGE LIMITED DUP-SCAN ARTL GREY ABDL/PEL/SCROT&/RPR ORGN [facility] Diane Vallecillo APRN.CNP [address] [place] [address] Us Imaging [place] [address] Referral ID Status Reason Start Date Expiration Date V isits Requested Visits Authorized [id number] Closed Auto-Generated Referral Patient Cleared - INN Insurance Found 11/17/2022 12/14/2023 1 1 [facility] for referral (narrative)* Diagnostic Procedure Only (Routine) - Closed Specialty Diagnoses / Procedures Referred By Contac t Referred To Contact CT IMAGING Diagnoses Unilateral inguinal hernia without obstruction or gangrene, recurrence not specified Procedures CT ABD/PEL WO IVCON CT ABD & PELVIS W/O CONTRAST Juan Jose Alonzo MD [address] [place] [address] Ct Imaging [place] [address] Referral ID Status Reason Start Date Expiration Date Visits Re quested Visits Authorized [id number] Closed 04/30/2021 04/02/2022 1 1 [facility] for referral (narrative)* Diagnostic Procedure Only (Routine) - Closed Specialty Diagnoses / Procedures Referred By Contac t Referred To Contact US IMAGING Diagnoses 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) Procedures US ASCITES SURVEY US ABDOMINAL REAL TIME W/IMAGE LIMITED Dayna Reyes MD [address] [place] [phone] Us Imaging [place] [address] Referral ID Status Reason Start Date Expiration Date V isits Requested Visits Authorized [id number] Closed Auto-Generate d Referral 02/22/2022 04/02/2022 1 1 [facility] for referral (narrative)* Diagnostic Procedure Only (Routine) - Closed Specialty Diagnoses / Procedures Referred By Contac t Referred To Contact US IMAGING Diagnoses Other ascites Procedures US ASCITES SURVEY US ABDOMINAL REAL TIME W/IMAGE LIMITED Dayna Reyes MD [address] [place] [phone] [place] [address] Referral ID Status Reason Start Date Expiration Date V isits Requested Visits Authorized [id number] Closed Auto-Generated Referral Patient Cleared - INN Insurance Found 12/20/2021 01/19/2023 1 1 [facility] for referral (narrative)* Diagnostic Procedure Only (Urgent) - Authorized Specialty Diagnoses / Procedures Referred By Contac t Referred To Contact US IMAGING Diagnoses Elevated LFTs Procedures US DOPPLER COMPLETE DUP-SCAN ARTL GREY ABDL/PEL/SCROT&/RPR ORGN COM Rebecca Mascorro, POLICE WORKER.MANAGER OF TRAINING [address] [place], [place] [phone] [place] [address] Referral ID Status Reason Start Date Expiration Date Visits Requested Visits Authorized [id number] Authorized Auto-Generat ed Referral 02/07/2024 03/07/2025 1 1 * Diagnostic Procedure Only (Urgent) - Authorized Specialty Diagnoses / Procedures Referred By Contac t Referred To Contact US IMAGING Diagnoses Elevated LFTs Procedures US ABD LIVER VASCULAR US ABDOMINAL REAL TIME W/IMAGE LIMITED DUP-SCAN ARTL GREY ABDL/PEL/SCROT&/RPR ORGN COM Rebecca Mascorro, POLICE WORKER.MANAGER OF TRAINING [address] [place] [address] [place] [address] Referral ID Status Reason Start Date Expiration Date Visits Requested Visits Authorized [id number] Authorized Auto-Generat ed Referral 02/07/2024 03/07/2025 1 1 [facility] for referral (narrative)* Diagnostic Procedure Only (Urgent) - Closed Specialty Diagnoses / Procedures Referred By Melinda t Referred To Contact US IMAGING Diagnoses Elevated LFTs Procedures US DOPPLER COMPLETE DUP-SCAN ARTL GRE[place] ABDL/PEL/SCROT&/RPR ORGN COM Rebecca Mascorro APRN.MANAGER OF TRAINING [address] [place] [address] Us Imaging [place] [address] Referral ID Status Reason Start Date Expiration Date V isits Requested Visits Authorized [id number] Closed Auto-Generate d Referral 02/07/2024 03/07/2025 1 1 * Diagnostic Procedure Only (Urgent) - Closed Specialty Diagnoses / Procedures Referred By Pritiac t Referred To Contact US IMAGING Diagnoses Elevated LFTs Procedures US ABD LIVER VASCULAR US ABDOMINAL REAL TIME W/IMAGE LIMITED DUP-SCAN ARTL GREY ABDL/PEL/SCROT&/RPR ORGN COM Rebecca Mascorro APRN.MANAGER OF TRAINING [address] [place] [address] Us Imaging [place] [address] Referral ID Status Reason Start Date Expiration Date V isits Requested Visits Authorized [id number] Closed Auto-Generate d Referral 02/07/2024 03/07/2025 1 1 [facility] for visit Narrative* Diagnostic Procedure Only (Routine) - Closed Specialty Diagnoses / Procedures Referred By Contac t Referred To Contact US IMAGING Diagnoses Cirrhosis of liver with ascites, unspecified hepatic cirrhosis type (HCC) Procedures US DOPPLER COMPLETE DUP-SCAN ARTL GREY ABDL/PEL/SCROT&/RPR ORGN COM Dayna Reyes MD [address] [place] [address] Us Imaging Referral ID Status Reason Start Date Expiration Date Visits Re quested Visits Authorized [id number] Closed 07/13/2021 04/02/2022 1 1 [facility] for visit Narrative* Diagnostic Procedure Only (Routine) - Closed Specialty Diagnoses / Procedures Referred By Contac t Referred To Contact US IMAGING Diagnoses Cirrhosis of liver with ascites, unspecified hepatic cirrhosis type (HCC) Procedures US ABD LIVER VASCULAR US ABDOMINAL REAL TIME W/IMAGE LIMITED DUP-SCAN ARTL GRE[place] ABDL/PEL/SCROT&/RPR ORGN COM Dayna Reyes MD [address] [place] [address] Us Imaging Referral ID Status Reason Start Date Expiration Date V isits Requested Visits Authorized [id number] Closed Auto-Generate d Referral 11/30/2021 04/02/2022 1 1 [facility] for visit Narrative* Diagnostic Procedure Only (Routine) - Closed Specialty Diagnoses / Procedures Referred By Contac t Referred To Contact US IMAGING Diagnoses Cirrhosis of liver with ascites, unspecified hepatic cirrhosis type (HCC) Procedures US ASCITES SURVEY US ABDOMINAL REAL TIME W/IMAGE LIMITED Dayna Reyes MD [address] [place] [address] Us Imaging Referral ID Status Reason Start Date Expiration Date V isits Requested Visits Authorized [id number] Closed Auto-Generate d Referral 01/20/2022 04/02/2022 1 1 [facility] for visit Narrative* Diagnostic Procedure Only (Routine) - Closed Specialty Diagnoses / Procedures Referred By Contac t Referred To Contact [facility] Diagnoses Other ascites Procedures ABDOM PARACENTESIS DX/THER W IMAGING GUIDANCE ABDOM PARACENTESIS DX/THER W IMAGING GUIDANCE Dayna Reyes MD [address] [place] [address] Digestive Disease [place] [address] [place] [address] Referral ID Status Reason Start Date Expiration Date Visits Re quested Visits Authorized [id number] Closed 07/13/2021 04/02/2022 52 1 [facility] for visit Narrative* Diagnostic Procedure Only (Routine) - Closed Specialty Diagnoses / Procedures Referred By Pritiac t Referred To Contact US IMAGING Diagnoses Unilateral inguinal hernia without obstruction or gangrene, recurrence not specified Hydrocele, unspecified hydrocele type Procedures US SCROTUM AND CONTENTS US SCROTUM & CONTENTS Dayna Reyes MD [address] [place] [phone] Us Imaging Referral ID Status Reason Start Date Expiration Date V isits Requested Visits Authorized [id number] Closed Auto-Generate d Referral 04/13/2022 05/13/2023 1 1 [facility] for visit Narrative* Diagnostic Procedure Only (Routine) - Closed Specialty Diagnoses / [facility] Diagnoses Scrotal swelling Liver transplant recipient (HCC) Procedures US SCROTUM AND CONTENTS US SCROTUM & CONTENTS Sharon Castro MD [address] [id number] Us Imaging Referral ID Status Reason Start Date Expiration Date V isits Requested Visits Authorized [id number] Closed Auto-Generate d Referral 06/24/2022 06/26/2023 1 1 [facility] for visit Narrative* Diagnostic Procedure Only (Urgent) - Closed Specialty Diagnoses / [facility] IM[facility] Diagnoses Liver replaced by transplant (HCC) Procedures US DOPPLER COMPLETE DUP-SCAN ARTL GREY ABDL/PEL/SCROT&/RPR ORGN COM Diane Vallecillo APRN.CNP [address] [phone] Us Imaging [place] [address] Referral ID Status Reason Start Date Expiration Date V isits Requested Visits Authorized [id number] Closed Auto-Generated Referral Patient Cleared - INN Insurance Found 11/17/2022 12/14/2023 1 1 [facility] for visit Narrative* Diagnostic Procedure Only (Routine) - Closed Specialty Diagnoses / Procedures Referred By Melinda t Referred To Contact CT IMAGING Diagnoses Unilateral inguinal hernia without obstruction or gangrene, recurrence not specified Procedures CT ABD/PEL WO IVCON CT ABD & PELVIS W/O CONTRAST Juan Jose Alonzo MD [phone] Imaging [facility]95 Referral ID Status Reason Start Date Expiration Date Visits Re quested Visits Authorized [id number] Closed 04/30/2021 04/02/2022 1 1 [facility] for visit Narrative* Diagnostic Procedure Only (Routine) - Closed Specialty Diagnoses / Procedures Referred By Contac t Referred To Contact US IMAGING Diagnoses 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) Procedures US ASCITES SURVEY US ABDOMINAL REAL TIME W/IMAGE LIMITED Dayna Reyes MD [address] [phone] Us Imaging [facility]95 Referral ID Status Reason Start Date Expiration Date V isits Requested Visits Authorized [id number] Closed Auto-Generate d Referral 02/22/2022 04/02/2022 1 1 [facility] for visit Narrative* Diagnostic Procedure Only (Routine) - Closed Specialty Diagnoses / Procedures Referred By Contac t Referred To Contact US IMAGING Diagnoses Other ascites Procedures US ASCITES SURVEY US ABDOMINAL REAL TIME W/IMAGE LIMITED Dayna Reyes MD [address] [phone] Us Imaging [place] [address] Referral ID Status Reason Start Date Expiration Date V isits Requested Visits Authorized [id number] Closed Auto-Generated Referral Patient Cleared - INN Insurance Found 12/20/2021 01/19/2023 1 1 [facility] for visit Narrative* Diagnostic Procedure Only (Urgent) - Closed Specialty Diagnoses / Procedures Referred By Contac t Referred To Contact US IMAGING Diagnoses Elevated LFTs Procedures US DOPPLER COMPLETE DUP-SCAN ARTL GREY ABDL/PEL/SCROT&/RPR ORGN COM Rebecca Mascorro, POLICE WORKER.MANAGER OF TRAINING 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 Advance Directive(s) 08/18/2020 11:29 AM Advance Directive(s) 04/22/2020 11:24 AM Advance Directive(s) 10/25/2019 11:44 AM Advance Directive(s) 10/23/2019 5:41 PM Advance Directive(s) 10/11/2019 1:01 PM ma in campus Advance Directive(s) 11/06/2018 2:18 PM Advance Directive(s) 10/15/2018 2:52 PM Advance Directive(s) 10/10/2018 10:55 AM Advance Directive(s) 09/24/2018 9:20 AM Advance Directive(s) 08/31/2018 9:54 AM Advance Directive(s) 08/31/2018 1:17 PM Documents on File Type Date Recorded 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 Advance Directive(s) 08/18/2020 11:29 AM Advance Directive(s) 04/22/2020 11:24 AM Advance Directive(s) 10/25/2019 11:44 AM Advance Directive(s) 10/23/2019 5:41 PM Advance Directive(s) 10/11/2019 1:01 PM ma in [place] Advance Directive(s) 11/06/2018 2:18 PM Advance Directive(s) 10/15/2018 2:52 PM Advance Directive(s) 10/10/2018 10:55 AM Advance Directive(s) 09/24/2018 9:20 AM Advance Directive(s) 08/31/2018 9:54 AM Advance Directive(s) 08/31/2018 1:17 PM Documents on File Type Date Recorded 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 Advance Directive(s) 08/31/2018 1:17 PM Documents on File Type Date Recorded 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 Advance Directive(s) 08/31/2018 1:17 PM Advance Directive Response Recorded Date/ Time Advance Directives No January 13, 2017 2:50pm Hospital Course Note NAME: SANDRA AGUILAR#: [id number] DATE: 12/25/2017DISCHARGE DATE: 12/27/2017DISCHARGE SUMMARYHISTORY OF PRESENT [...] W/INTERP&POSTPROC DIFF WORK STATION Dayna Reyes MD [address] [place] [address] Mr Imaging Referral ID Status Reason Start Date Expiration Date V isits Requested Visits Authorized [id number] Closed Auto-Generate d Referral 06/17/2021 04/02/2022 1 1 Specialty Diagnoses / Procedures Referred By Melinda lopez Referred To Contact MR IMAGING Diagnoses 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 Elevated tumor markers Abnormal results of liver function studies Procedures MRI PANC/SUSHANT WO/W IVCON MRI ABDOMEN W/O & W/CONTRAST MATERIAL Dayna Reyes MD [address] [place] [address] Mr Imaging Referral ID Status Reason Start Date Expiration Date V isits Requested Visits Authorized [id number] Closed Auto-Generate d Referral 06/29/2021 08/29/2021 1 1 Specialty Diagnoses / Procedures Referred By Melinda lopez Referred To Contact Diagnoses Osteopenia, unspecified location Procedures CONSULT ENDOCRINE [facility]IC OFFICE/OUTPATIENT [facility] 60-74 MINUTES Dayna Reyes MD [address] 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) Procedures US DOPPLER COMPLETE DUP-SCAN ARTL GREY ABDL/PEL/SCROT&/RPR ORGN COM Dayna Reyes MD [address] [place] [address] Us Imaging Referral ID Status Reason Start Date Expiration Date Visits Re quested Visits Authorized [id number] Closed 07/13/2021 04/02/2022 1 1 Specialty Diagnoses / Procedures Referred By Contac t Referred To Contact US IMAGING Diagnoses 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) Procedures US ABD LIVER VASCULAR US ABDOMINAL REAL TIME W/IMAGE LIMITED DUP-SCAN ARTL GREY ABDL/PEL/SCROT&/RPR ORGN COM Dayna Reyes MD [address] [place] [address] Us Imaging Referral ID Status Reason Start Date Expiration Date Visits Re quested Visits Authorized [id number] Closed 07/13/2021 04/02/2022 1 1 Specialty Diagnoses / Procedures Referred By Contac t Referred To Contact CT IMAGING Diagnoses Lung nodules Procedures CT CHEST WO IVCON DIAGNOSTIC COMPUTED TOMOGRAPHY THORAX W/O CNTRST Dayna Reyes MD [address] [place] [address] Ct Imaging Referral ID Status Reason Start Date Expiration Date Visits Requested Visits Authorized [id number] Authorized Auto-Generat ed Referral 07/13/2021 04/02/2022 1 1 Specialty Diagnoses / Procedures Referred By Contac t Referred To Contact Dermatology Diagnoses 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 [facility] [place] [address] Referral ID Status Reason Start Date Expiration Date Visits Requested Visits Authorized [id number] Pending Review PCP Requested Referral 10/19/2021 10/18/2022 1 1 Specialty Diagnoses / Procedures Referred By Contac t Referred To Contact Diagnoses Preoperative examination Unilateral inguinal hernia without obstruction or gangrene, recurrence not specified Procedures IN PERSON CONSULT TO PACC Kulwinder Landry MD [address] [place] [address] Referral ID Status Reason Start Date Expiration Date Visits Requested Visits Authorized [id number] Ref Not Required PCP Requested Referral 10/19/2021 01/16/2022 1 1 Specialty Diagnoses / Procedures Referred By Contac t Referred [facility] Diagnoses Preoperative examination Unilateral inguinal hernia without obstruction or gangrene, recurrence not specified Procedures ECG COMPLETE ECG ROUTINE ECG W/LEAST 12 LDS W/I&R Kulwinder Landry MD [address] [place] [address] [place] [address] Referral ID Status Reason Start Date Expiration Date Visits Requested Visits Authorized [id number] Pending Review Auto-Generat ed Referral 10/19/2021 10/18/2022 1 1 Specialty Diagnoses / Procedures Referred By Contac t Referred To Contact Diagnoses Preoperative examination Unilateral inguinal hernia without obstruction or gangrene, recurrence not specified Procedures CONSULT TO [facility] OFF[facility]/OUTPATIENT [facility] 60-74 MINUTES Kulwinder Landry MD [address] [place] [address] Referral ID Status Reason Start Date Expiration Date Visits Requested Visits Authorized [id number] Pending Review PCP Requested Referral 10/19/2021 10/18/2022 1 1 Specialty Diagnoses / Procedures Referred By Contac t Referred To Contact TRANSPLANT Diagnoses 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) Procedures REFERRAL FOR TRANSPLANT [place] [address] [place], [place] [address] [address] [facility] [address] [place] [address] Referral ID Status Reason Start Date Expiration Date Visits Requested Visits Authorized [id number] Pending Review PCP Requested Referral 12/23/2021 12/23/2022 99 99 Referral ID Status Reason Start Date Expiration Date V isits Requested Visits Authorized [id number] Closed Auto-Generate d Referral 07/13/2021 04/02/2022 1 1 Specialty Diagnoses / Procedures Referred By Contac t Referred To Contact Diagnoses Preoperative examination Unilateral inguinal hernia without obstruction or gangrene, recurrence not specified Procedures IN PERSON CONSULT TO PACC Ryley Sanabria MD [address] [place] [address] Referral ID Status Reason Start Date Expiration Date Visits Requested Visits Authorized [id number] Ref Not Required PCP Requested Referral 2 04/10/2022 1 1 Specialty Diagnoses / Procedures Referred By Contac t Referred [facility] Diagnoses Preoperative examination Unilateral inguinal hernia without obstruction or gangrene, recurrence not specified Procedures ECG COMPLETE ECG ROUTINE ECG W/LEAST 12 LDS W/I&R Ryley Sanabria MD [address] [place] [address] [facility] [address] [address] Referral ID Status Reason Start Date Expiration Date Visits Requested Visits Authorized [id number] Pending Review Auto-Generat ed Referral 2 01/10/2023 1 1 Specialty Diagnoses / Procedures Referred By Contac t Referred To Contact Diagnoses Preoperative examination Unilateral inguinal hernia without obstruction or gangrene, recurrence not specified Procedures CONSULT TO [facility] OFF[facility]/OUTPATIENT [facility] 60-74 MINUTES Ryley Sanabria MD [address] [place] [address] Referral ID Status Reason Start Date Expiration Date Visits Requested Visits Authorized [id number] Pending Review PCP Requested Referral 2 01/10/2023 1 1 Specialty Diagnoses / Procedures Referred By Contac t Referred To Contact CT IMAGING Diagnoses Unilateral inguinal hernia without obstruction or gangrene, recurrence not specified Procedures CT ABD/PEL WO IVCON CT ABD & PELVIS [place] [address] [place] [address] [address] [address] Imaging Referral ID Status Reason Start Date Expiration Date Visits Requested Visits Authorized [id number] Pending Review Auto-Generat ed Referral 04/16/2023 1 1 Specialty Diagnoses / Procedures Referred By Contac t Referred To Contact CT IMAGING Diagnoses Cirrhosis of liver with ascites, unspecified hepatic cirrhosis type (HCC) Procedures CT LIVER W IVCON CT ABDOMEN W/CONTRAST Dayna Reyes MD [address] [facility] [place] [address] Ct Imaging Referral ID Status Reason Start Date Expiration Date V isits Requested Visits Authorized [id number] Closed Auto-Generate d Referral 04/13/2022 05/13/2023 1 1 Specialty Diagnoses / Procedures Referred By Contac t Referred To Contact CT IMAGING Diagnoses Unilateral inguinal hernia without obstruction or gangrene, recurrence not specified Procedures CT ABD/PEL WO IVCON CT ABD & PELVIS W/O CONTRAST Nanci Kamara, POLICE WORKER.MANAGER OF TRAINING [address] [address] [address] Imaging Referral ID Status Reason Start Date Expiration Date Visits Requested Visits Authorized [id number] Pending Review Auto-Generat ed Referral 07/13/2022 08/12/2023 1 1 Reason evaluate and treat Diagnosis 1 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 [facility] [place], [place],[address] Referred Provider Specialty Neurological Surgery Referral Priority Routine General Notes Fore, Danielle M 023 11:41:10 AM >Received today and waiting for office notes to be locked before sending referral Referral ID Status Reason Start Date Expiration Date V isits Requested Visits Authorized [id number] Closed Auto-Generate d Referral 08/01/2022 04/02/2023 2 1 Referral ID Status Reason Start Date Expiration Date V isits Requested Visits Authorized [id number] Closed Auto-Generate d Referral 03/22/2022 04/02/2022 2 2 Specialty Diagnoses / Procedures Referred By Contac t Referred To Contact [facility] Diagnoses Acute left-sided low back pain with left-sided sciatica S/P lumbar laminectomy Procedures CONSULT TO PHYSICAL THERAPY PHYSICAL THERAPY EVALUATION HIGH COMPLEX 45 MINS Jane Hernandez PA-C [address] [place] [address] [facility] [address] [place] [address] Referral ID Status Reason Start Date Expiration Date Visits Requested Visits Authorized [id number] Pending Review Auto-Generat ed Referral 12/09/2022 12/09/2023 [...] section and content) DATE CREATED AUTHOR 02/24/2018 [facility] DATE CREATED AUTHOR AUTHOR'S ORGANIZ ATION 03/18/2018 [facility] DATE CREATED AUTHOR AUTHOR'S ORGANIZ ATION 07/06/2021 [facility] DATE CREATED AUTHOR AUTHOR'S ORGANIZ ATION 02/24/2022 [facility] DATE CREATED AUTHOR AUTHOR'S ORGANIZ ATION 06/12/2022 [facility] DATE CREATED AUTHOR AUTHOR'S ORGANIZ ATION 02/13/2023 [facility] DATE CREATED AUTHOR AUTHOR'S ORGANIZ ATION 10/23/2024 [facility] DATE CREATED AUTHOR AUTHOR'S ORGANIZ ATION 11/20/2024 [facility] Source Comments (unrecognize d section and content) In the event this informatio n is protected by the Federal Confidentiality of Alcohol and Drug Abuse Patient Records regulations: The Federal rules restrict any use of the information to criminally investigate or prosecute any alcohol or drug abuse patient.[facility] the event this information is protected by the Federal Confidentiality of Alcohol and Drug Abuse Patient Records regulations: The Federal rules restrict any use of the information to criminally investigate or prosecute any alcohol or drug abuse patient.[facility] the event this information is protected by the Federal Confidentiality of Alcohol and Drug Abuse Patient Records regulations: The Federal rules restrict any use of the information to criminally investigate or prosecute any alcohol or drug abuse patient.[facility] the event this information is protected by the Federal Confidentiality of Alcohol and Drug Abuse Patient Records regulations: The Federal rules restrict any use of the information to criminally investigate or prosecute any alcohol or drug abuse patient.[facility] the event this information is protected by the Federal Confidentiality of Alcohol and Drug Abuse Patient Records regulations: The Federal rules restrict any use of the information to criminally investigate or prosecute any alcohol or drug abuse patient.[facility] the event this information is protected by the Federal Confidentiality of Alcohol and Drug Abuse Patient Records regulations: The Federal rules restrict any use of the information to criminally investigate or prosecute any alcohol or drug abuse patient.[facility] the event this information is protected by the Federal Confidentiality of Alcohol and Drug Abuse Patient Records regulations: The Federal rules restrict any use of the information to criminally investigate or prosecute any alcohol or drug abuse patient.[facility] the event this information is protected by the Federal Confidentiality of Alcohol and Drug Abuse Patient Records regulations: The Federal rules restrict any use of the information to criminally investigate or prosecute any alcohol or drug abuse patient.[facility] the event this information is protected by the Federal Confidentiality of Alcohol and Drug Abuse Patient Records regulations: The Federal rules restrict any use of the information to criminally investigate or prosecute any alcohol or drug abuse patient.[facility] the event this information is protected by the Federal Confidentiality of Alcohol and Drug Abuse Patient Records regulations: The Federal rules restrict any use of the information to criminally investigate or prosecute any alcohol or drug abuse patient.[facility] the event this information is protected by the Federal Confidentiality of Alcohol and Drug Abuse Patient Records regulations: The Federal rules restrict any use of the information to criminally investigate or prosecute any alcohol or drug abuse patient.[facility] the event this information is protected by the Federal Confidentiality of Alcohol and Drug Abuse Patient Records regulations: The Federal rules restrict any use of the information to criminally investigate or prosecute any alcohol or drug abuse patient.[facility] the event this information is protected by the Federal Confidentiality of Alcohol and Drug Abuse Patient Records regulations: The Federal rules restrict any use of the information to criminally investigate or prosecute any alcohol or drug abuse patient.[facility] the event this information is protected by the Federal Confidentiality of Alcohol and Drug Abuse Patient Records regulations: The Federal rules restrict any use of the information to criminally investigate or prosecute any alcohol or drug abuse patient.[facility] the event this information is protected by the Federal Confidentiality of Alcohol and Drug Abuse Patient Records regulations: The Federal rules restrict any use of the information to criminally investigate or prosecute any alcohol or drug abuse patient.[facility] the event this information is protected by the Federal Confidentiality of Alcohol and Drug Abuse Patient Records regulations: The Federal rules restrict any use of the information to criminally investigate or prosecute any alcohol or drug abuse patient.[facility] the event this information is protected by the Federal Confidentiality of Alcohol and Drug Abuse Patient Records regulations: The Federal rules restrict any use of the information to criminally investigate or prosecute any alcohol or drug abuse patient.[facility] the event this information is protected by the Federal Confidentiality of Alcohol and Drug Abuse Patient Records regulations: The Federal rules restrict any use of the information to criminally investigate or prosecute any alcohol or drug abuse patient.[facility] the event this information is protected by the Federal Confidentiality of Alcohol and Drug Abuse Patient Records regulations: The Federal rules restrict any use of the information to criminally investigate or prosecute any alcohol or drug abuse patient.[facility] the event this information is protected by the Federal Confidentiality of Alcohol and Drug Abuse Patient Records regulations: The Federal rules restrict any use of the information to criminally investigate or prosecute any alcohol or drug abuse patient.[facility] the event this information is protected by the Federal Confidentiality of Alcohol and Drug Abuse Patient Records regulations: The Federal rules restrict any use of the information to criminally investigate or prosecute any alcohol or drug abuse patient.[facility] the event this information is protected by the Federal Confidentiality of Alcohol and Drug Abuse Patient Records regulations: The Federal rules restrict any use of the information to criminally investigate or prosecute any alcohol or drug abuse patient.[facility] the event this information is protected by the Federal Confidentiality of Alcohol and Drug Abuse Patient Records regulations: The Federal rules restrict any use of the information to criminally investigate or prosecute any alcohol or drug abuse patient.[facility] the event this information is protected by the Federal Confidentiality of Alcohol and Drug Abuse Patient Records regulations: The Federal rules restrict any use of the information to criminally investigate or prosecute any alcohol or drug abuse patient.[facility] the event this information is protected by the Federal Confidentiality of Alcohol and Drug Abuse Patient Records regulations: The Federal rules restrict any use of the information to criminally investigate or prosecute any alcohol or drug abuse patient.[facility] the event this information is protected by the Federal Confidentiality of Alcohol and Drug Abuse Patient Records regulations: The Federal rules restrict any use of the information to criminally investigate or prosecute any alcohol or drug abuse patient.[facility] the event this information is protected by the Federal Confidentiality of Alcohol and Drug Abuse Patient Records regulations: The Federal rules restrict any use of the information to criminally investigate or prosecute any alcohol or drug abuse patient.[facility] the event this information is protected by the Federal Confidentiality of Alcohol and Drug Abuse Patient Records regulations: The Federal rules restrict any use of the information to criminally investigate or prosecute any alcohol or drug abuse patient.[facility] the event this information is protected by the Federal Confidentiality of Alcohol and Drug Abuse Patient Records regulations: The Federal rules restrict any use of the information to criminally investigate or prosecute any alcohol or drug abuse patient.[facility]In the event this information is protected by the Federal Confidentiality of Alcohol and Drug Abuse Patient Records regulations: The Federal rules restrict any use of the information to criminally investigate or prosecute any alcohol or drug abuse patient.[facility]In the event this information is protected by the Federal Confidentiality of Alcohol and Drug Abuse Patient Records regulations: The Federal rules restrict any use of the information to criminally investigate or prosecute any alcohol or drug abuse patient.[facility]In the event this information is protected by the Federal Confidentiality of Alcohol and Drug Abuse Patient Records regulations: The Federal rules restrict any use of the information to criminally investigate or prosecute any alcohol or drug abuse patient.[facility]In the event this information is protected by the Federal Confidentiality of Alcohol and Drug Abuse Patient Records regulations: The Federal rules restrict any use of the information to criminally investigate or prosecute any alcohol or drug abuse patient.[facility]In the event this information is protected by the Federal Confidentiality of Alcohol and Drug Abuse Patient Records regulations: The Federal rules restrict any use of the information to criminally investigate or prosecute any alcohol or drug abuse patient.[facility]In the event this information is protected by the Federal Confidentiality of Alcohol and Drug Abuse Patient Records regulations: The Federal rules restrict any use of the information to criminally investigate or prosecute any alcohol or drug abuse patient.[facility]In the event this information is protected by the Federal Confidentiality of Alcohol and Drug Abuse Patient Records regulations: The Federal rules restrict any use of the information to criminally investigate or prosecute any alcohol or drug abuse patient.[facility]In the event this information is protected by the Federal Confidentiality of Alcohol and Drug Abuse Patient Records regulations: The Federal rules restrict any use of the information to criminally investigate or prosecute any alcohol or drug abuse patient.[facility]In the event this information is protected by the Federal Confidentiality of Alcohol and Drug Abuse Patient Records regulations: The Federal rules restrict any use of the information to criminally investigate or prosecute any alcohol or drug abuse patient.[facility]In the event this information is protected by the Federal Confidentiality of Alcohol and Drug Abuse Patient Records regulations: The Federal rules restrict any use of the information to criminally investigate or prosecute any alcohol or drug abuse patient.[facility] [place] [facility]In the event this information is protected by the Federal Confidentiality of Alcohol and Drug Abuse Patient Records regulations: The Federal rules restrict any use of the information to criminally investigate or prosecute any alcohol or drug abuse patient.[facility] [place] [facility]In the event this information is protected by the Federal Confidentiality of Alcohol and Drug Abuse Patient Records regulations: The Federal rules restrict any use of the information to criminally investigate or prosecute any alcohol or drug abuse patient.[facility] [place] [facility]In the event this information is protected by the Federal Confidentiality of Alcohol and Drug Abuse Patient Records regulations: The Federal rules restrict any use of the information to criminally investigate or prosecute any alcohol or drug abuse patient.[facility] [place] [facility]In the event this information is protected by the Federal Confidentiality of Alcohol and Drug Abuse Patient Records regulations: The Federal rules restrict any use of the information to criminally investigate or prosecute any alcohol or drug abuse patient.[facility] [place] [facility]In the event this information is protected by the Federal Confidentiality of Alcohol and Drug Abuse Patient Records regulations: The Federal rules restrict any use of the information to criminally investigate or prosecute any alcohol or drug abuse patient.[facility] [place] [facility]In the event this information is protected by the Federal Confidentiality of Alcohol and Drug Abuse Patient Records regulations: The Federal rules restrict any use of the information to criminally investigate or prosecute any alcohol or drug abuse patient.[facility] [place] [facility]In the event this information is protected by the Federal Confidentiality of Alcohol and Drug Abuse Patient Records regulations: The Federal rules restrict any use of the information to criminally investigate or prosecute any alcohol or drug abuse patient.[facility] [place] [facility]In the event this information is protected by the Federal Confidentiality of Alcohol and Drug Abuse Patient Records regulations: The Federal rules restrict any use of the information to criminally investigate or prosecute any alcohol or drug abuse patient.[facility] [place] [facility]In the event this information is protected by the Federal Confidentiality of Alcohol and Drug Abuse Patient Records regulations: The Federal rules restrict any use of the information to criminally investigate or prosecute any alcohol or drug abuse patient.[facility] [place] [facility]In the event this information is protected by the Federal Confidentiality of Alcohol and Drug Abuse Patient Records regulations: The Federal rules restrict any use of the information to criminally investigate or prosecute any alcohol or drug abuse patient.[facility] [place] [facility]In the event this information is protected by the Federal Confidentiality of Alcohol and Drug Abuse Patient Records regulations: The Federal rules restrict any use of the information to criminally investigate or prosecute any alcohol or drug abuse patient.[facility] [place] [facility]In the event this information is protected by the Federal Confidentiality of Alcohol and Drug Abuse Patient Records regulations: The Federal rules restrict any use of the information to criminally investigate or prosecute any alcohol or drug abuse patient.[facility] [place] [facility]In the event this information is protected by the Federal Confidentiality of Alcohol and Drug Abuse Patient Records regulations: The Federal rules restrict any use of the information to criminally investigate or prosecute any alcohol or drug abuse patient.[facility] [place] [facility]In the event this information is protected by the Federal Confidentiality of Alcohol and Drug Abuse Patient Records regulations: The Federal rules restrict any use of the information to criminally investigate or prosecute any alcohol or drug abuse patient.[facility] [place] [facility]In the event this information is protected by the Federal Confidentiality of Alcohol and Drug Abuse Patient Records regulations: The Federal rules restrict any use of the information to criminally investigate or prosecute any alcohol or drug abuse patient.[facility] [place] [facility]In the event this information is protected by the Federal Confidentiality of Alcohol and Drug Abuse Patient Records regulations: The Federal rules restrict any use of the information to criminally investigate or prosecute any alcohol or drug abuse patient.[facility] [place] [facility]In the event this information is protected by the Federal Confidentiality of Alcohol and Drug Abuse Patient Records regulations: The Federal rules restrict any use of the information to criminally investigate or prosecute any alcohol or drug abuse patient.[facility] [place] [facility]In the event this information is protected by the Federal Confidentiality of Alcohol and Drug Abuse Patient Records regulations: The Federal rules restrict any use of the information to criminally investigate or prosecute any alcohol or drug abuse patient.[facility] [place] [facility]In the event this information is protected by the Federal Confidentiality of Alcohol and Drug Abuse Patient Records regulations: The Federal rules restrict any use of the information to criminally investigate or prosecute any alcohol or drug abuse patient.[facility] [place] [facility]In the event this information is protected by the Federal Confidentiality of Alcohol and Drug Abuse Patient Records regulations: The Federal rules restrict any use of the information to criminally investigate or prosecute any alcohol or drug abuse patient.[facility] [place] [facility]In the event this information is protected by the Federal Confidentiality of Alcohol and Drug Abuse Patient Records regulations: The Federal rules restrict any use of the information to criminally investigate or prosecute any alcohol or drug abuse patient.[facility] [place] [facility]In the event this information is protected by the Federal Confidentiality of Alcohol and Drug Abuse Patient Records regulations: The Federal rules restrict any use of the information to criminally investigate or prosecute any alcohol or drug abuse patient.[facility] [place] [facility]In the event this information is protected by the Federal Confidentiality of Alcohol and Drug Abuse Patient Records regulations: The Federal rules restrict any use of the information to criminally investigate or prosecute any alcohol or drug abuse patient.[facility] [place] [facility]In the event this information is protected by the Federal Confidentiality of Alcohol and Drug Abuse Patient Records regulations: The Federal rules restrict any use of the information to criminally investigate or prosecute any alcohol or drug abuse patient.[facility] [place] [facility]In the event this information is protected by the Federal Confidentiality of Alcohol and Drug Abuse Patient Records regulations: The Federal rules restrict any use of the information to criminally investigate or prosecute any alcohol or drug abuse patient.[facility] [place] [facility]In the event this information is protected by the Federal Confidentiality of Alcohol and Drug Abuse Patient Records regulations: The Federal rules restrict any use of the information to criminally investigate or prosecute any alcohol or drug abuse patient.[facility] [place] [facility]In the event this information is protected by the Federal Confidentiality of Alcohol and Drug Abuse Patient Records regulations: The Federal rules restrict any use of the information to criminally investigate or prosecute any alcohol or drug abuse patient.[facility] [place] [facility]In the event this information is protected by the Federal Confidentiality of Alcohol and Drug Abuse Patient Records regulations: The Federal rules restrict any use of the information to criminally investigate or prosecute any alcohol or drug abuse patient.[facility] [place] [facility]In the event this information is protected by the Federal Confidentiality of Alcohol and Drug Abuse Patient Records regulations: The Federal rules restrict any use of the information to criminally investigate or prosecute any alcohol or drug abuse patient.[facility] [place] [facility]In the event this information is protected by the Federal Confidentiality of Alcohol and Drug Abuse Patient Records regulations: The Federal rules restrict any use of the information to criminally investigate or prosecute any alcohol or drug abuse patient.[facility] [place] [facility]In the event this information is protected by the Federal Confidentiality of Alcohol and Drug Abuse Patient Records regulations: The Federal rules restrict any use of the information to criminally investigate or prosecute any alcohol or drug abuse patient.[facility] [place] [facility]In the event this information is protected by the Federal Confidentiality of Alcohol and Drug Abuse Patient Records regulations: The Federal rules restrict any use of the information to criminally investigate or prosecute any alcohol or drug abuse patient.[facility] [place] [facility]In the event this information is protected by the Federal Confidentiality of Alcohol and Drug Abuse Patient Records regulations: The Federal rules restrict any use of the information to criminally investigate or prosecute any alcohol or drug abuse patient.[facility] [place] [facility]In the event this information is protected by the Federal Confidentiality of Alcohol and Drug Abuse Patient Records regulations: The Federal rules restrict any use of the information to criminally investigate or prosecute any alcohol or drug abuse patient.[facility] [place] [facility]In the event this information is protected by the Federal Confidentiality of Alcohol and Drug Abuse Patient Records regulations: The Federal rules restrict any use of the information to criminally investigate or prosecute any alcohol or drug abuse patient.[facility] [place] [facility]In the event this information is protected by the Federal Confidentiality of Alcohol and Drug Abuse Patient Records regulations: The Federal rules restrict any use of the information to criminally investigate or prosecute any alcohol or drug abuse patient.[facility] [place] [facility]In the event this information is protected by the Federal Confidentiality of Alcohol and Drug Abuse Patient Records regulations: The Federal rules restrict any use of the information to criminally investigate or prosecute any alcohol or drug abuse patient.[facility] [place] [facility]In the event this information is protected by the Federal Confidentiality of Alcohol and Drug Abuse Patient Records regulations: The Federal rules restrict any use of the information to criminally investigate or prosecute any alcohol or drug abuse patient.[facility] [place] [facility]In the event this information is protected by the Federal Confidentiality of Alcohol and Drug Abuse Patient Records regulations: The Federal rules restrict any use of the information to criminally investigate or prosecute any alcohol or drug abuse patient.[facility] [place] [facility]In the event this information is protected by the Federal Confidentiality of Alcohol and Drug Abuse Patient Records regulations: The Federal rules restrict any use of the information to criminally investigate or prosecute any alcohol or drug abuse patient.[facility] [place] [facility]In the event this information is protected by the Federal Confidentiality of Alcohol and Drug Abuse Patient Records regulations: The Federal rules restrict any use of the information to criminally investigate or prosecute any alcohol or drug abuse patient.[facility] [place] [facility]In the event this information is protected by the Federal Confidentiality of Alcohol and Drug Abuse Patient Records regulations: The Federal rules restrict any use of the information to criminally investigate or prosecute any alcohol or drug abuse patient.[facility] [place] [facility]In the event this information is protected by the Federal Confidentiality of Alcohol and Drug Abuse Patient Records regulations: The Federal rules restrict any use of the information to criminally investigate or prosecute any alcohol or drug abuse patient.[facility] [place] [facility]In the event this information is protected by the Federal Confidentiality of Alcohol and Drug Abuse Patient Records regulations: The Federal rules restrict any use of the information to criminally investigate or prosecute any alcohol or drug abuse patient.[facility] [place] [facility]In the event this information is protected by the Federal Confidentiality of Alcohol and Drug Abuse Patient Records regulations: The Federal rules restrict any use of the information to criminally investigate or prosecute any alcohol or drug abuse patient.[facility] [place] [facility]In the event this information is protected by the Federal Confidentiality of Alcohol and Drug Abuse Patient Records regulations: The Federal rules restrict any use of the information to criminally investigate or prosecute any alcohol or drug abuse patient.[facility] [place] [facility]In the event this information is protected by the Federal Confidentiality of Alcohol and Drug Abuse Patient Records regulations: The Federal rules restrict any use of the information to criminally investigate or prosecute any alcohol or drug abuse patient.[facility] [place] [facility]In the event this information is protected by the Federal Confidentiality of Alcohol and Drug Abuse Patient Records regulations: The Federal rules restrict any use of the information to criminally investigate or prosecute any alcohol or drug abuse patient.[facility] [place] [facility]In the event this information is protected by the Federal Confidentiality of Alcohol and Drug Abuse Patient Records regulations: The Federal rules restrict any use of the information to criminally investigate or prosecute any alcohol or drug abuse patient.[facility] [place] [facility]In the event this information is protected by the Federal Confidentiality of Alcohol and Drug Abuse Patient Records regulations: The Federal rules restrict any use of the information to criminally investigate or prosecute any alcohol or drug abuse patient.[facility] [place] [facility]In the event this information is protected by the Federal Confidentiality of Alcohol and Drug Abuse Patient Records regulations: The Federal rules restrict any use of the information to criminally investigate or prosecute any alcohol or drug abuse patient.[facility] [place] [facility]In the event this information is protected by the Federal Confidentiality of Alcohol and Drug Abuse Patient Records regulations: The Federal rules restrict any use of the information to criminally investigate or prosecute any alcohol or drug abuse patient.[facility] [place] [facility]In the event this information is protected by the Federal Confidentiality of Alcohol and Drug Abuse Patient Records regulations: The Federal rules restrict any use of the information to criminally investigate or prosecute any alcohol or drug abuse patient.[facility] [place] [facility]In the event this information is protected by the Federal Confidentiality of Alcohol and Drug Abuse Patient Records regulations: The Federal rules restrict any use of the information to criminally investigate or prosecute any alcohol or drug abuse patient.[facility] [place] [facility]In the event this information is protected by the Federal Confidentiality of Alcohol and Drug Abuse Patient Records regulations: The Federal rules restrict any use of the information to criminally investigate or prosecute any alcohol or drug abuse patient.[facility] [place] [facility]In the event this information is protected by the Federal Confidentiality of Alcohol and Drug Abuse Patient Records regulations: The Federal rules restrict any use of the information to criminally investigate or prosecute any alcohol or drug abuse patient.[facility] [place] [facility]In the event this information is protected by the Federal Confidentiality of Alcohol and Drug Abuse Patient Records regulations: The Federal rules restrict any use of the information to criminally investigate or prosecute any alcohol or drug abuse patient.[facility] [place] [facility]In the event this information is protected by the Federal Confidentiality of Alcohol and Drug Abuse Patient Records regulations: The Federal rules restrict any use of the information to criminally investigate or prosecute any alcohol or drug abuse patient.[facility] [place] [facility]In the event this information is protected by the Federal Confidentiality of Alcohol and Drug Abuse Patient Records regulations: The Federal rules restrict any use of the information to criminally investigate or prosecute any alcohol or drug abuse patient.[facility] [place] [facility]In the event this information is protected by the Federal Confidentiality of Alcohol and Drug Abuse Patient Records regulations: The Federal rules restrict any use of the information to criminally investigate or prosecute any alcohol or drug abuse patient.[facility] [place] [facility]In the event this information is protected by the Federal Confidentiality of Alcohol and Drug Abuse Patient Records regulations: The Federal rules restrict any use of the information to criminally investigate or prosecute any alcohol or drug abuse patient.[facility] [place] [facility]In the event this information is protected by the Federal Confidentiality of Alcohol and Drug Abuse Patient Records regulations: The Federal rules restrict any use of the information to criminally investigate or prosecute any alcohol or drug abuse patient.[facility] [place] [facility]In the event this information is protected by the Federal Confidentiality of Alcohol and Drug Abuse Patient Records regulations: The Federal rules restrict any use of the information to criminally investigate or prosecute any alcohol or drug abuse patient.[facility] [place] [facility]In the event this information is protected by the Federal Confidentiality of Alcohol and Drug Abuse Patient Records regulations: The Federal rules restrict any use of the information to criminally investigate or prosecute any alcohol or drug abuse patient.[facility] [place] [facility]In the event this information is protected by the Federal Confidentiality of Alcohol and Drug Abuse Patient Records regulations: The Federal rules restrict any use of the information to criminally investigate or prosecute any alcohol or drug abuse patient.[facility] [place] [facility]In the event this information is protected by the Federal Confidentiality of Alcohol and Drug Abuse Patient Records regulations: The Federal rules restrict any use of the information to criminally investigate or prosecute any alcohol or drug abuse patient.[facility] [place] [facility]In the event this information is protected by the Federal Confidentiality of Alcohol and Drug Abuse Patient Records regulations: The Federal rules restrict any use of the information to criminally investigate or prosecute any alcohol or drug abuse patient.[facility]In the event this information is protected by the Federal Confidentiality of Alcohol and Drug Abuse Patient Records regulations: The Federal rules restrict any use of the information to criminally investigate or prosecute any alcohol or drug abuse patient.[facility] SouthIn the event this information is protected by the Federal Confidentiality of Alcohol and Drug Abuse Patient Records regulations: The Federal rules restrict any use of the information to criminally investigate or prosecute any alcohol or drug abuse patient.[facility] SouthIn the event this information is protected by the Federal Confidentiality of Alcohol and Drug Abuse Patient Records regulations: The Federal rules restrict any use of the information to criminally investigate or prosecute any alcohol or drug abuse patient.[facility] SouthIn the event this information is protected by the Federal Confidentiality of Alcohol and Drug Abuse Patient Records regulations: The Federal rules restrict any use of the information to criminally investigate or prosecute any alcohol or drug abuse patient.[facility] SouthIn the event this information is protected by the Federal Confidentiality of Alcohol and Drug Abuse Patient Records regulations: The Federal rules restrict any use of the information to criminally investigate or prosecute any alcohol or drug abuse patient.[facility] SouthIn the event this information is protected by the Federal Confidentiality of Alcohol and Drug Abuse Patient Records regulations: The Federal rules restrict any use of the information to criminally investigate or prosecute any alcohol or drug abuse patient.[facility] SouthIn the event this information is protected by the Federal Confidentiality of Alcohol and Drug Abuse Patient Records regulations: The Federal rules restrict any use of the information to criminally investigate or prosecute any alcohol or drug abuse patient.[facility] SouthIn the event this information is protected by the Federal Confidentiality of Alcohol and Drug Abuse Patient Records regulations: The Federal rules restrict any use of the information to criminally investigate or prosecute any alcohol or drug abuse patient.[facility] SouthIn the event this information is protected by the Federal Confidentiality of Alcohol and Drug Abuse Patient Records regulations: The Federal rules restrict any use of the information to criminally investigate or prosecute any alcohol or drug abuse patient.[facility] SouthIn the event this information is protected by the Federal Confidentiality of Alcohol and Drug Abuse Patient Records regulations: The Federal rules restrict any use of the information to criminally investigate or prosecute any alcohol or drug abuse patient.[facility] SouthIn the event this information is protected by the Federal Confidentiality of Alcohol and Drug Abuse Patient Records regulations: The Federal rules restrict any use of the information to criminally investigate or prosecute any alcohol or drug abuse patient.[facility] SouthIn the event this information is protected by the Federal Confidentiality of Alcohol and Drug Abuse Patient Records regulations: The Federal rules restrict any use of the information to criminally investigate or prosecute any alcohol or drug abuse patient.[facility] SouthIn the event this information is protected by the Federal Confidentiality of Alcohol and Drug Abuse Patient Records regulations: The Federal rules restrict any use of the information to criminally investigate or prosecute any alcohol or drug abuse patient.[facility] SouthIn the event this information is protected by the Federal Confidentiality of Alcohol and Drug Abuse Patient Records regulations: The Federal rules restrict any use of the information to criminally investigate or prosecute any alcohol or drug abuse patient.[facility] SouthIn the event this information is protected by the Federal Confidentiality of Alcohol and Drug Abuse Patient Records regulations: The Federal rules restrict any use of the information to criminally investigate or prosecute any alcohol or drug abuse patient.[facility] SouthIn the event this information is protected by the Federal Confidentiality of Alcohol and Drug Abuse Patient Records regulations: The Federal rules restrict any use of the information to criminally investigate or prosecute any alcohol or drug abuse patient.[facility] SouthIn the event this information is protected by the Federal Confidentiality of Alcohol and Drug Abuse Patient Records regulations: The Federal rules restrict any use of the information to criminally investigate or prosecute any alcohol or drug abuse patient.[facility] SouthIn the event this information is protected by the Federal Confidentiality of Alcohol and Drug Abuse Patient Records regulations: The Federal rules restrict any use of the information to criminally investigate or prosecute any alcohol or drug abuse patient.[facility] SouthIn the event this information is protected by the Federal Confidentiality of Alcohol and Drug Abuse Patient Records regulations: The Federal rules restrict any use of the information to criminally investigate or prosecute any alcohol or drug abuse patient.[facility] SouthIn the event this information is protected by the Federal Confidentiality of Alcohol and Drug Abuse Patient Records regulations: The Federal rules restrict any use of the information to criminally investigate or prosecute any alcohol or drug abuse patient.[facility] SouthIn the event this information is protected by the Federal Confidentiality of Alcohol and Drug Abuse Patient Records regulations: The Federal rules restrict any use of the information to criminally investigate or prosecute any alcohol or drug abuse patient.[facility] SouthIn the event this information is protected by the Federal Confidentiality of Alcohol and Drug Abuse Patient Records regulations: The Federal rules restrict any use of the information to criminally investigate or prosecute any alcohol or drug abuse patient.[facility] SouthIn the event this information is protected by the Federal Confidentiality of Alcohol and Drug Abuse Patient Records regulations: The Federal rules restrict any use of the information to criminally investigate or prosecute any alcohol or drug abuse patient.[facility] SouthIn the event this information is protected by the Federal Confidentiality of Alcohol and Drug Abuse Patient Records regulations: The Federal rules restrict any use of the information to criminally investigate or prosecute any alcohol or drug abuse patient.[facility] SouthIn the event this information is protected by the Federal Confidentiality of Alcohol and Drug Abuse Patient Records regulations: The Federal rules restrict any use of the information to criminally investigate or prosecute any alcohol or drug abuse patient.[facility] SouthIn the event this information is protected by the Federal Confidentiality of Alcohol and Drug Abuse Patient Records regulations: The Federal rules restrict any use of the information to criminally investigate or prosecute any alcohol or drug abuse patient.[facility] SouthIn the event this information is protected by the Federal Confidentiality of Alcohol and Drug Abuse Patient Records regulations: The Federal rules restrict any use of the information to criminally investigate or prosecute any alcohol or drug abuse patient.[facility] SouthIn the event this information is protected by the Federal Confidentiality of Alcohol and Drug Abuse Patient Records regulations: The Federal rules restrict any use of the information to criminally investigate or prosecute any alcohol or drug abuse patient.[facility] SouthIn the event this information is protected by the Federal Confidentiality of Alcohol and Drug Abuse Patient Records regulations: The Federal rules restrict any use of the information to criminally investigate or prosecute any alcohol or drug abuse patient.[facility] SouthIn the event this information is protected by the Federal Confidentiality of Alcohol and Drug Abuse Patient Records regulations: The Federal rules restrict any use of the information to criminally investigate or prosecute any alcohol or drug abuse patient.[facility] SouthIn the event this information is protected by the Federal Confidentiality of Alcohol and Drug Abuse Patient Records regulations: The Federal rules restrict any use of the information to criminally investigate or prosecute any alcohol or drug abuse patient.[facility] SouthIn the event this information is protected by the Federal Confidentiality of Alcohol and Drug Abuse Patient Records regulations: The Federal rules restrict any use of the information to criminally investigate or prosecute any alcohol or drug abuse patient.[facility] SouthIn the event this information is protected by the Federal Confidentiality of Alcohol and Drug Abuse Patient Records regulations: The Federal rules restrict any use of the information to criminally investigate or prosecute any alcohol or drug abuse patient.[facility] SouthIn the event this information is protected by the Federal Confidentiality of Alcohol and Drug Abuse Patient Records regulations: The Federal rules restrict any use of the information to criminally investigate or prosecute any alcohol or drug abuse patient.[facility] SouthIn the event this information is protected by the Federal Confidentiality of Alcohol and Drug Abuse Patient Records regulations: The Federal rules restrict any use of the information to criminally investigate or prosecute any alcohol or drug abuse patient.[facility] SouthIn the event this information is protected by the Federal Confidentiality of Alcohol and Drug Abuse Patient Records regulations: The Federal rules restrict any use of the information to criminally investigate or prosecute any alcohol or drug abuse patient.[facility] SouthIn the event this information is protected by the Federal Confidentiality of Alcohol and Drug Abuse Patient Records regulations: The Federal rules restrict any use of the information to criminally investigate or prosecute any alcohol or drug abuse patient.[facility] SouthIn the event this information is protected by the Federal Confidentiality of Alcohol and Drug Abuse Patient Records regulations: The Federal rules restrict any use of the information to criminally investigate or prosecute any alcohol or drug abuse patient.[facility] SouthIn the event this information is protected by the Federal Confidentiality of Alcohol and Drug Abuse Patient Records regulations: The Federal rules restrict any use of the information to criminally investigate or prosecute any alcohol or drug abuse patient.[facility] SouthIn the event this information is protected by the Federal Confidentiality of Alcohol and Drug Abuse Patient Records regulations: The Federal rules restrict any use of the information to criminally investigate or prosecute any alcohol or drug abuse patient.[facility] Reason for Visit (unrecogniz ed section and content) Reason Comments Orders Reason Comments Radiology MRI Specialty Diagnoses / Procedures Referred By Contac t Referred To Contact MR IMAGING Diagnoses 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 Elevated tumor markers Abnormal results of liver function studies Procedures MRI PANC/SUSHANT WO/W IVCON MRI ABDOMEN W/O & W/CONTRAST MATERIAL Dayna Reyes MD [address] [place] [address] Mr Imaging Referral ID Status Reason Start Date Expiration Date V isits Requested Visits Authorized [id number] Closed Auto-Generate d Referral 06/29/2021 08/29/2021 1 [...] ECHO HEART, FULL STRESS/REST Dayna Reyes MD [address] [place] [address] [facility] [address] [address] Referral ID Status Reason Start Date Expiration Date V isits Requested Visits Authorized [id number] Closed Auto-Generate d Referral 07/13/2021 04/02/2022 1 1 Reason Comments UNOS MELD score update pt notiification Reason Comments Established Patient ascites liver cirrho sis Reason Comments Patient Update Reason Comments Liver Disease Reason Comments Osteoporosis f/u Specialty Diagnoses / Procedures Referred By Contac t Referred To Contact Diagnoses Osteopenia, unspecified location Procedures CONSULT ENDOCRINE CALCIUM CLINIC OFFICE/OUTPATIENT NEW HIGH MDM 60-74 MINUTES Dayna Reyes MD [address] [place] [address] Referral ID Status Reason Start Date Expiration Date Visits Requested Visits Authorized [id number] Pending Review PCP Requested Referral 07/17/2021 07/17/2022 [...] PERSON CONSULT TO PACC Kulwinder Landry MD [address] [place] [address] Referral ID Status Reason Start Date Expiration Date Visits Requested Visits Authorized [id number] Ref Not Required PCP Requested Referral 10/19/2021 01/16/2022 1 1 Reason Comments Medication Problem Reason Comments Opened In Error Specialty Diagnoses / Procedures Referred By Contac t Referred To Contact Endocrinology / ENDOCRINOLOGY Diagnoses Age-related osteoporosis without current pathological fracture Age-related osteoporosis without current pathological fracture Procedures INJECTION, ZOLEDRONIC ACID, 1 MG [id number] Reclast5 MG IV X ONE YEARLY Lorna Frazier MD [address] [place] [address] Lorna Frazier MD [address] [facility] [address] Referral ID Status Reason Start Date Expiration Date Visits Re quested Visits Authorized [id number] Closed 12/01/2021 12/01/2022 1 1 Reason Comments Consult Specialty Diagnoses / Procedures Referred By Contac t Referred To Contact Hematology Diagnoses Thrombocytopenia (HCC) Cirrhosis of liver with ascites, unspecified hepatic cirrhosis type (HCC) Liver transplant candidate Procedures CONSULT TO HEMATOLOGY OFFICE/OUTPATIENT [facility] MDM 60-74 MINUTES Dayna Reyes MD [address] [place] [address] Referral ID Status Reason Start Date Expiration Date Visits Requested Visits Authorized [id number] Pending Review PCP Requested Referral 11/16/2021 11/16/2022 1 [address] Specialty Diagnoses / Procedures Referred By Contac t Referred To Contact CT IMAGING Diagnoses Lung nodules Procedures CT CHEST WO IVCON DIAGNOSTIC COMPUTED TOMOGRAPHY THORAX W/O CNTRST Dayna Reyes MD [address] [place] [address] Ct Imaging Referral ID Status Reason Start Date Expiration Date V isits Requested Visits Authorized [id number] Closed Auto-Generate d Referral 07/13/2021 04/02/2022 1 1 Reason Comments 12.2.22 cure Right Inguinal herni a repair 2.5 hours los 1 Reason Comments Recheck Reason Comments Pre-Op Visit Specialty Diagnoses / Procedures Referred By Contac t Referred To Contact ANESTHESIOLOGY Diagnoses surgery pending 03/04 PACC;lab;ekg Procedures COMPLETE PACC Kulwinder Landry MD [address] [place] [address] 6, Pacc [address] [place] [id number] Referral ID Status Reason Start Date Expiration Date V isits Requested Visits Authorized [id number] Pending Review 02/10/2022 05/11/2022 1 1 Reason Comments Spirometry Specialty Diagnoses / Procedures Referred By Contac t Referred To Contact [facility] Diagnoses Chronic rhinitis Pneumonia of right lower lobe due to infectious organism Procedures SPIROMETRY WITH DILATOR IF OBSTRUCTED BRNCDILAT RSPSE SPMTRY PRE&POST-BRNCDILAT ADMN Lakshmi Cr DO [address] [place] [address] [place] [address] Referral ID Status Reason Start Date Expiration Date V isits Requested Visits Authorized [id number] Closed Auto-Generate d Referral 02/11/2022 04/02/2022 1 [...] IVCON CT ABDOMEN W/CONTRAST Dayna Reyes MD [address] [place] [address] Ct Imaging Referral ID Status Reason Start Date Expiration Date V isits Requested Visits Authorized [id number] Closed Auto-Generate d Referral 04/13/2022 05/13/2023 1 [...] CT ABD & PELVIS W/O CONTRAST Nanci Kamara, POLICE WORKER.MANAGER OF TRAINING [address] [place] [address] Ct Imaging Referral ID Status Reason Start Date Expiration Date V isits Requested Visits Authorized [id number] Closed Auto-Generate d Referral 08/01/2022 04/02/2023 2 1 Specialty Diagnoses / Procedures Referred By Contac t Referred To Contact CT IMAGING Diagnoses Unilateral inguinal hernia without obstruction or gangrene, recurrence not specified Procedures CT ABD/PEL WO IVCON CT ABD & PELVIS W/O CONTRAST Kulwinder Landry MD [address] [place] [address] Ct Imaging Referral ID Status Reason Start Date Expiration Date V isits Requested Visits Authorized [id number] Closed Auto-Generate d Referral 03/22/2022 04/02/2022 2 [...] NEW SPINE SURGICAL TRIAGE Tiffany Bucio [address] [id number] Jane Hernandez PA-C [address] [place] [address] Referral ID Status Reason Start Date Expiration Date Visits Re quested Visits Authorized [id number] Closed 12/07/2022 04/02/2023 1 1 Reason Onset [...] Request Medication Dosage Adjustment Decrease FK to 1/ Care Teams (unrecognized sec tion and content) Team Status: Active Member Role Status Dates Jordan Azar MD Primary Care Provider Active Team Status: Inactive Member Role Status Dates Jordan Azar MD Primary Care Provider Active Jane Hernandez PA-C Attending Provider Active Leadership Development Consultant Relationship Specialty Start Date End Date Jordan Azar MD PCP - General Family Practice 10/13/14 Hua Marquez Jr. [address] [place] [address] Referring Gastroenterology 05/25/18 Ramirez Nieto MD [address] [place] [address] Primary Staff Physician Cardiology 12/31/20 Leadership Development Consultant Relationship Specialty Start Date End Date Jordan Azar MD PCP - General Family Practice 10/13/14 Hua Marquez Jr. [address] [place] [address] Referring Gastroenterology 05/25/18 Ramirez Nieto MD [address] [place] [address] Primary Staff Physician Cardiology 12/31/20 Leadership Development Consultant Relationship Specialty Start Date End Date Jordan Azar MD PCP - General Family Practice 10/13/14 Hua Marquez Jr. [address] [place] [address] Referring Gastroenterology 05/25/18 Ramirez Nieto MD [address] [place] [address] Primary Staff Physician Cardiology 12/31/20 Leadership Development Consultant Relationship Specialty Start Date End Date Jordan Azar MD PCP - General Family Practice 10/13/14 Hua Marquez Jr. [address] [place] [address] Referring Gastroenterology 05/25/18 Ramirez Nieto MD [address] [place] [address] Primary Staff Physician Cardiology 12/31/20 Leadership Development Consultant Relationship Specialty Start Date End Date Jordan Azar MD PCP - General Family Practice 10/13/14 Hua Marquez Jr. [address] [place] [address] Referring Gastroenterology 05/25/18 Ramirez Nieto MD [address] [place] [address] Primary Staff Physician Cardiology 12/31/20 Leadership Development Consultant Relationship Specialty Start Date End Date Jordan Azar MD PCP - General Family Practice 10/13/14 Hua Marquez Jr. [address] [place] [address] Referring Gastroenterology 05/25/18 Ramirez Nieto MD [address] [place] [address] Primary Staff Physician Cardiology 12/31/20 Leadership Development Consultant Relationship Specialty Start Date End Date Jordan Azar MD PCP - [facility] Practice 10/13/14 Hua Marquez Jr. [address] [place] [address] Referring Gastroenterology 05/25/18 Ramirez Nieto MD [address] [place] [address] Primary Staff Physician Cardiology 12/31/20 Leadership Development Consultant Relationship Specialty Start Date End Date Jordan Azar MD PCP - General Family Practice 10/13/14 Hua Marquez Jr. [address] [place] [address] Referring Gastroenterology 05/25/18 Ramirez Nieto MD [address] [place] [address] Primary Staff Physician Cardiology 12/31/20 Leadership Development Consultant Relationship Specialty Start Date End Date Jordan Azar MD PCP - General Family Practice 10/13/14 Hua Marquez Jr. [address] [address] Referring Gastroenterology 05/25/18 Ramirez Nieto MD [address] [place] [address] Primary Staff Physician Cardiology 12/31/20 Leadership Development Consultant Relationship Specialty Start Date End Date Jordan Azar MD PCP - [facility] Practice 10/13/14 Hua Marquez Jr. [address] [place] [address] Referring Gastroenterology 05/25/18 Ramirez Nieto MD [address] [place] [address] Primary Staff Physician Cardiology 12/31/20 Leadership Development Consultant Relationship Specialty Start Date End Date Jordan Azar MD PCP - [facility] Practice 10/13/14 Hua Marquez Jr. [address] [place] [address] Referring Gastroenterology 05/25/18 Ramirez Nieto MD [address] [place] [address] Primary Staff Physician Cardiology 12/31/20 Leadership Development Consultant Relationship Specialty Start Date End Date Jordan Azar MD PCP - [facility] Practice 10/13/14 Hua Marquez Jr. [address] [place] [address] Referring Gastroenterology 05/25/18 Ramirez Nieto MD [address] [place] [address] Primary Staff Physician Cardiology 12/31/20 Leadership Development Consultant Relationship Specialty Start Date End Date Jordan Azar MD PCP - [facility] Practice 10/13/14 Hua Marquez Jr. [address] [address] Referring Gastroenterology 05/25/18 Ramirez Nieto MD [address] [place] [address] Primary Staff Physician Cardiology 12/31/20 Leadership Development Consultant Relationship Specialty Start Date End Date Jordan Azar MD PCP - [facility] Practice 10/13/14 Hua Marquez Jr. [address] [address] Referring Gastroenterology 05/25/18 Ramirez Nieto MD [address] [place] [address] Primary Staff Physician Cardiology 12/31/20 Leadership Development Consultant Relationship Specialty Start Date End Date Jordan Azar MD PCP - [facility] Practice 10/13/14 Hua Marquez Jr. [address] [address] Referring Gastroenterology 05/25/18 Ramirez Nieto MD [address] [place] [address] Primary Staff Physician Cardiology 12/31/20 Leadership Development Consultant Relationship Specialty Start Date End Date Jordan Azar MD PCP - General Family Practice 10/13/14 Hua Marquez Jr. [address] [place] [address] Referring Gastroenterology 05/25/18 Ramirez Nieto MD [address] [place] [address] Primary Staff Physician Cardiology 12/31/20 Leadership Development Consultant Relationship Specialty Start Date End Date Jordan Azar MD PCP - General Family Practice 10/13/14 Hua Marquez Jr. [address] [place] [address] Referring Gastroenterology 05/25/18 Ramirez Nieto MD [address] [place] [address] Primary Staff Physician Cardiology 12/31/20 Leadership Development Consultant Relationship Specialty Start Date End Date Jordan Azar MD PCP - General Family Practice 10/13/14 Hua Marquez Jr. [address] [place] [address] Referring Gastroenterology 05/25/18 Ramirez Nieto MD [address] [place] [address] Primary Staff Physician Cardiology 12/31/20 Leadership Development Consultant Relationship Specialty Start Date End Date Jordan Azar MD PCP - General Family Practice 10/13/14 Hua Marquez Jr. [address] [place] [address] Referring Gastroenterology 05/25/18 Ramirez Nieto MD [address] [place] [address] Primary Staff Physician Cardiology 12/31/20 Leadership Development Consultant Relationship Specialty Start Date End Date Jordan Azar MD PCP - General Family Practice 10/13/14 Hua Marquez Jr. [address] [address] Referring Gastroenterology 05/25/18 Ramirez Nieto MD [address] [place] [address] Primary Staff Physician Cardiology 12/31/20 Leadership Development Consultant Relationship Specialty Start Date End Date Jordan Azar MD PCP - General Family Practice 10/13/14 Hua Marquez Jr. [address] [address] Referring Gastroenterology 05/25/18 Ramirez Nieto MD [address] [place] [address] Primary Staff Physician Cardiology 12/31/20 Leadership Development Consultant Relationship Specialty Start Date End Date Jordan Azar MD PCP - General [facility] Practice 10/13/14 Hua Marquez Jr. [address] [address] Referring Gastroenterology 05/25/18 Ramirez Nieto MD [address] [place] [address] Primary Staff Physician Cardiology 12/31/20 Leadership Development Consultant Relationship Specialty Start Date End Date Jordan Azar MD PCP - General Family Practice 10/13/14 Hua Marquez Jr. [address] [place] [address] Referring Gastroenterology 05/25/18 Ramirez Nieto MD [address] [place] [address] Primary Staff Physician Cardiology 12/31/20 Leadership Development Consultant Relationship Specialty Start Date End Date Jordan Azar MD PCP - General Family Medicine 10/13/14 Hua Marquez Jr. [address] [place] [address] Referring Gastroenterology 05/25/18 Ramirez Nieto MD [address] [place] [address] Primary Staff Physician Cardiology 12/31/20 Leadership Development Consultant Relationship Specialty Start Date End Date Jordan Azar MD PCP - General Family Medicine 10/13/14 Hua Marquez Jr., DO [address] [place] [address] Referring Gastroenterology 05/25/18 Ramirez Nieto MD [address] [place] [address] Primary Staff Physician Cardiology 12/31/20 Leadership Development Consultant Relationship Specialty Start Date End Date Jordan Azar MD PCP - General Family Medicine 10/13/14 Hua Marquez Jr., DO [address] [address] Referring Gastroenterology 05/25/18 Ramirez Nieto MD [address] [place] [address] Primary Staff Physician Cardiology 12/31/20 Leadership Development Consultant Relationship Specialty Start Date End Date Jordan Azar MD PCP - General Family Medicine 10/13/14 Hua Marquez Jr., DO [address] [place] [address] Referring Gastroenterology 05/25/18 Ramirez Nieto MD [address] [place] [address] Primary Staff Physician Cardiology 12/31/20 Leadership Development Consultant Relationship Specialty Start Date End Date Jordan Azar MD PCP - General Family Medicine 10/13/14 Hua Marquez Jr., DO [address] [place] [address] Referring Gastroenterology 05/25/18 Ramirez Nieto MD [address] [place] [address] Primary Staff Physician Cardiology 12/31/20 Leadership Development Consultant Relationship Specialty Start Date End Date Jordan Azar MD PCP - General Family Medicine 10/13/14 Hua Marquez Jr., DO [address] [place] [address] Referring Gastroenterology 05/25/18 Ramirez Nieto MD [address] [place] [address] Primary Staff Physician Cardiology 12/31/20 Leadership Development Consultant Relationship Specialty Start Date End Date Jordan Azar MD PCP - General Family Medicine 10/13/14 Hua Marquez Jr., DO [address] [address] Referring Gastroenterology 05/25/18 Ramirez Nieto MD [address] [place] [address] Primary Staff Physician Cardiology 12/31/20 Leadership Development Consultant Relationship Specialty Start Date End Date Jordan Azar MD PCP - General Family Medicine 10/13/14 Hua Marquez Jr., DO [address] [address] Referring Gastroenterology 05/25/18 Ramirez Nieto MD [address] [place] [address] Primary Staff Physician Cardiology 12/31/20 Leadership Development Consultant Relationship Specialty Start Date End Date Jordan Azar MD PCP - General Family Medicine 10/13/14 Hua Marquez Jr., DO [address] [address] Referring Gastroenterology 05/25/18 Ramirez Nieto MD [address] [place] [address] Primary Staff Physician Cardiology 12/31/20 Leadership Development Consultant Relationship Specialty Start Date End Date Jordan Azar MD PCP - General Family Medicine 10/13/14 Hua Marquez Jr., DO [address] [address] Referring Gastroenterology 05/25/18 Ramirez Nieto MD [address] [place] [address] Primary Staff Physician Cardiology 12/31/20 Leadership Development Consultant Relationship Specialty Start Date End Date Jordan Azar MD PCP - General Family Medicine 10/13/14 Hua Marquez Jr., DO [address] [place] [address] Referring Gastroenterology 05/25/18 Ramirez Nieto MD [address] [place] [address] Primary Staff Physician Cardiology 12/31/20 Leadership Development Consultant Relationship Specialty Start Date End Date Jordan Azar MD PCP - General Family Medicine 10/13/14 Hua Marquez Jr., DO [address] [address] Referring Gastroenterology 05/25/18 Ramirez Nieto MD [address] [place] [address] Primary Staff Physician Cardiology 12/31/20 Leadership Development Consultant Relationship Specialty Start Date End Date Jordan Azar MD PCP - General Family Medicine 10/13/14 Hua Marquez Jr., DO [address] [address] Referring Gastroenterology 05/25/18 Ramirez Nieto MD [address] [place] [address] Primary Staff Physician Cardiology 12/31/20 Leadership Development Consultant Relationship Specialty Start Date End Date Jordan Azar MD PCP - General Family Medicine 10/13/14 Hua Marquez Jr., DO [address] [address] Referring Gastroenterology 05/25/18 Ramirez Nieto MD [address] [place] [address] Primary Staff Physician Cardiology 12/31/20 Leadership Development Consultant Relationship Specialty Start Date End Date Jordan Azar MD PCP - General Family Medicine 10/13/14 Hua Marquez Jr., DO [address] [address] Referring Gastroenterology 05/25/18 Ramirez Nieto MD [address] [place] [address] Primary Staff Physician Cardiology 12/31/20 Leadership Development Consultant Relationship Specialty Start Date End Date Jordan Azar MD PCP - General Family Medicine 10/13/14 Hua Marquez Jr., DO [address] [address] Referring Gastroenterology 05/25/18 Ramirez Nieto MD [address] [place] [address] Primary Staff Physician Cardiology 12/31/20 Leadership Development Consultant Relationship Specialty Start Date End Date Jordan Azar MD PCP - General Family Medicine 10/13/14 Hua Marquez Jr., DO [address] [address] Referring Gastroenterology 05/25/18 Ramirez Nieto MD [address] [place] [address] Primary Staff Physician Cardiology 12/31/20 Leadership Development Consultant Relationship Specialty Start Date End Date Jordan Azar MD PCP - General Family Medicine 10/13/14 Hua Marquez Jr., DO [address] [place] [address] Referring Gastroenterology 05/25/18 Ramirez Nieto MD [address] [place] [address] Primary Staff Physician Cardiology 12/31/20 Leadership Development Consultant Relationship Specialty Start Date End Date Jordan Azar MD PCP - General Family Medicine 10/13/14 Hua Marquez Jr., DO [address] [place] [address] Referring Gastroenterology 05/25/18 Ramirez Nieto MD [address] [place] [address] Primary Staff Physician Cardiology 12/31/20 Leadership Development Consultant Relationship Specialty Start Date End Date Jordan Azar MD PCP - General Family Medicine 10/13/14 Hua Marquez Jr., DO [address] [address] Referring Gastroenterology 05/25/18 Ramirez Nieto MD [address] [place] [address] Primary Staff Physician Cardiology 12/31/20 Leadership Development Consultant Relationship Specialty Start Date End Date Jordan Azar MD PCP - General Family Medicine 10/13/14 Hua Marquez Jr., DO [address] [address] Referring Gastroenterology 05/25/18 Ramirez Nieto MD [address] [place] [address] Primary Staff Physician Cardiology 12/31/20 Team Status: Inactive Member Role Status Dates Jordan Azar MD Primary Care Provider Active Dayna Reyes MD Attending Provider Active Leadership Development Consultant Relationship Specialty Start Date End Date Jordan Azar MD PCP - General Family Medicine 10/13/14 Hua Marquez Jr., DO [address] [address] Referring Gastroenterology 05/25/18 Ramirez Nieto MD [address] [place] [address] Primary Staff Physician Cardiology 12/31/20 Leadership Development Consultant Relationship Specialty Start Date End Date Jordan Azar MD PCP - General Family Medicine 10/13/14 Hua Marquez Jr., DO [address] [address] Referring Gastroenterology 05/25/18 Ramirez Nieto MD [address] [place] [address] Primary Staff Physician Cardiology 12/31/20 Leadership Development Consultant Relationship Specialty Start Date End Date Jordan Azar MD PCP - General Family Medicine 10/13/14 Hua Marquez Jr., DO [address] [address] Referring Gastroenterology 05/25/18 Ramirez Nieto MD [address] [place] [address] Primary Staff Physician Cardiology 12/31/20 Leadership Development Consultant Relationship Specialty Start Date End Date Jordan Azar MD PCP - General Family Medicine 10/13/14 Hua Marquez Jr., DO [address] [address] Referring Gastroenterology 05/25/18 Ramirez Nieto MD [address] [place] [address] Primary Staff Physician Cardiology 12/31/20 [facility] 05/09/22 Leadership Development Consultant Relationship Specialty Start Date End Date Jordan Azar MD PCP - General Family Medicine 10/13/14 Hua Marquez Jr., DO [address] [address] Referring Gastroenterology 05/25/18 Ramirez Nieto MD [address] [place] [address] Primary Staff Physician Cardiology 12/31/20 [facility] 05/09/22 Leadership Development Consultant Relationship Specialty Start Date End Date Jordan Azar MD PCP - General Family Medicine 10/13/14 Hua Marquez Jr., DO [address] [address] Referring Gastroenterology 05/25/18 Ramirez Nieto MD [address] [place] [address] Primary Staff Physician Cardiology 12/31/20 [facility] 05/09/22 Leadership Development Consultant Relationship Specialty Start Date End Date Jordan Azar MD PCP - General Family Medicine 10/13/14 Hua Marquez Jr., DO [address] [address] Referring Gastroenterology 05/25/18 Ramirez Nieto MD [address] [place] [address] Primary Staff Physician Cardiology 12/31/20 [facility] 05/09/22 Leadership Development Consultant Relationship Specialty Start Date End Date Jordan Azar MD PCP - General Family Medicine 10/13/14 Hua Marquez Jr., DO [address] [address] Referring Gastroenterology 05/25/18 Ramirez Nieto MD [address] [place] [address] Primary Staff Physician Cardiology 12/31/20 [facility] 05/09/22 Leadership Development Consultant Relationship Specialty Start Date End Date Jordan Azar MD PCP - General Family Medicine 10/13/14 Hua Marquez Jr., DO [address] [address] Referring Gastroenterology 05/25/18 Ramirez Nieto MD [address] [place] [address] Primary Staff Physician Cardiology 12/31/20 [facility] 05/09/22 Leadership Development Consultant Relationship Specialty Start Date End Date Jordan Azar MD PCP - General Family Medicine 10/13/14 Hua Marquez Jr., DO [address] [address] Referring Gastroenterology 05/25/18 Ramirez Nieto MD [address] [place] [address] Primary Staff Physician Cardiology 12/31/20 [facility] 05/09/22 Leadership Development Consultant Relationship Specialty Start Date End Date Jordan Azar MD PCP - General Family Medicine 10/13/14 Hua Marquez Jr., DO [address] [address] Referring Gastroenterology 05/25/18 Ramirez Nieto MD [address] [place] [address] Primary Staff Physician Cardiology 12/31/20 [facility] 05/09/22 Leadership Development Consultant Relationship Specialty Start Date End Date Jordan Azar MD PCP - General Family Medicine 10/13/14 Hua Marquez Jr., DO [address] [address] Referring Gastroenterology 05/25/18 Ramirez Nieto MD [address] [place] [address] Primary Staff Physician Cardiology 12/31/20 [facility] 05/09/22 Leadership Development Consultant Relationship Specialty Start Date End Date Jordan Azar MD PCP - General Family Medicine 10/13/14 Hua Marquez Jr., DO [address] [address] Referring Gastroenterology 05/25/18 Ramirez Nieto MD [address] [place] [address] Primary Staff Physician Cardiology 12/31/20 Kat Leal, [employer] [facility] [address] [place] [address] Transplant Center 06/10/22 [facility] 05/09/22 Leadership Development Consultant Relationship Specialty Start Date End Date Jordan Azar MD PCP - General Family Medicine 10/13/14 Hua Marquez Jr., DO [address] [address] Referring Gastroenterology 05/25/18 Ramirez Nieto MD [address] [place] [address] Primary Staff Physician Cardiology 12/31/20 aKt Leal, [employer] [facility] [address] [place] [address] Transplant Center 06/10/22 [facility] 05/09/22 Leadership Development Consultant Relationship Specialty Start Date End Date Jordan Azar MD PCP - General Family Medicine 10/13/14 Hua Marquez Jr., DO [address] [address] Referring Gastroenterology 05/25/18 Ramirez Nieto MD [address] [place] [address] Primary Staff Physician Cardiology 12/31/20 Kat Leal, [employer] [facility] [address] [place] [address] Transplant Center 06/10/22 [facility] 05/09/22 Leadership Development Consultant Relationship Specialty Start Date End Date Jordan Azar MD PCP - General Family Medicine 10/13/14 Hua Marquez Jr., DO [address] [address] Referring Gastroenterology 05/25/18 Ramirez Nieto MD [address] [place] [address] Primary Staff Physician Cardiology 12/31/20 Kat Leal, [employer] [facility] [address] [place] [address] Transplant Center 06/10/22 [facility] 05/09/22 Leadership Development Consultant Relationship Specialty Start Date End Date Jordan Azar MD PCP - General Family Medicine 10/13/14 Hua Marquez Jr., DO [address] [address] Referring Gastroenterology 05/25/18 Ramirez Nieto MD [address] [place] [address] Primary Staff Physician Cardiology 12/31/20 Kat Leal, RN [facility] [address] [place] [address] Transplant Center 06/10/22 [facility] 05/09/22 Leadership Development Consultant Relationship Specialty Start Date End Date Jordan Azar MD PCP - General Family Medicine 10/13/14 Hua Marquez Jr., DO [address] [address] Referring Gastroenterology 05/25/18 Ramirez Nieto MD [address] [place] [address] Primary Staff Physician Cardiology 12/31/20 Kat Lael, [employer] [facility] [address] [place] [address] Transplant Center 06/10/22 [facility] 05/09/22 Leadership Development Consultant Relationship Specialty Start Date End Date Jordan Azar MD PCP - General Family Medicine 10/13/14 Hua Marquez Jr., DO [address] [address] Referring Gastroenterology 05/25/18 Ramirez Nieto MD [address] [place] [address] Primary Staff Physician Cardiology 12/31/20 Kat Leal, [employer] [facility] [address] [place] [address] Transplant Center 06/10/22 [facility] 05/09/22 Leadership Development Consultant Relationship Specialty Start Date End Date Jordan Azar MD PCP - General Family Medicine 10/13/14 Hua Marquez Jr., DO [address] [address] Referring Gastroenterology 05/25/18 Ramirez Nieto MD [address] [place] [address] Primary Staff Physician Cardiology 12/31/20 Kat Leal, RN [facility] [address] [place] [address] Transplant Center 06/10/22 [facility] 05/09/22 Leadership Development Consultant Relationship Specialty Start Date End Date Jordan Azar MD PCP - General Family Medicine 10/13/14 Hua Marquez Jr., DO [address] [address] Referring Gastroenterology 05/25/18 Ramirez Nieto MD [address] [place] [address] Primary Staff Physician Cardiology 12/31/20 Kat Leal, [employer] [facility] [address] [place] [address] Transplant Center 06/10/22 [facility] 05/09/22 Leadership Development Consultant Relationship Specialty Start Date End Date Jordan Azar MD PCP - General Family Medicine 10/13/14 Hua Marquez Jr., DO [address] [address] Referring Gastroenterology 05/25/18 Ramirez Nieto MD [address] [place] [address] Primary Staff Physician Cardiology 12/31/20 Kat Leal RN [facility] [address] [place] [address] Transplant Center 06/10/22 [facility] 05/09/22 Leadership Development Consultant Relationship Specialty Start Date End Date Jordan Azar MD PCP - General Family Medicine 10/13/14 Hua Marquez Jr., DO [address] [address] Referring Gastroenterology 05/25/18 Ramirez Nieto MD [address] [place] [address] Primary Staff Physician Cardiology 12/31/20 Kat Leal, [employer] [facility] [address] [place] [address] Transplant Center 06/10/22 [facility] 05/09/22 Leadership Development Consultant Relationship Specialty Start Date End Date Jordan Azar MD PCP - General Family Medicine 10/13/14 Hua Marquez Jr., DO [address] [address] Referring Gastroenterology 05/25/18 Ramirez Nieto MD [address] [place] [address] Primary Staff Physician Cardiology 12/31/20 Kat Leal, [employer] [facility] [address] [place] [address] Transplant Center 06/10/22 [facility] 05/09/22 Leadership Development Consultant Relationship Specialty Start Date End Date Jordan Azar MD PCP - General Family Medicine 10/13/14 Hua Marquez Jr., DO [address] [address] Referring Gastroenterology 05/25/18 Ramirez Nieto MD [address] [place] [address] Primary Staff Physician Cardiology 12/31/20 Kat Leal, RN [facility] [address] [place] [address] Transplant Center 06/10/22 [facility] 05/09/22 Leadership Development Consultant Relationship Specialty Start Date End Date Jordan Azar MD PCP - General Family Medicine 10/13/14 Hua Marquez Jr., DO [address] [place] [address] Referring Gastroenterology 05/25/18 Ramirez Nieto MD [address] [place] [address] Primary Staff Physician Cardiology 12/31/20 Kat Leal, [employer] [facility] [address] [place] [address] Transplant Center 06/10/22 Tiffany Bucio [address] [place] [phone] Referring Neurosurgery 11/07/22 [facility] 05/09/22 Leadership Development Consultant Relationship Specialty Start Date End Date Jordan Azar MD PCP - General Family Medicine 10/13/14 Hua Marquez Jr., DO [address] [place] [address] Referring Gastroenterology 05/25/18 Ramirez Nieto MD [address] [place] [address] Primary Staff Physician Cardiology 12/31/20 Kat Leal, RN [facility] [address] [place] [address] Transplant Center 06/10/22 [facility] 05/09/22 Leadership Development Consultant Relationship Specialty Start Date End Date Jordan Azar MD PCP - General Family Medicine 10/13/14 Hua Marquez Jr., DO [address] [address] Referring Gastroenterology 05/25/18 Ramirez Nieto MD [address] [place] [address] Primary Staff Physician Cardiology 12/31/20 Kat Leal, [employer] [facility] [address] [place] [address] Transplant Center 06/10/22 [facility] 05/09/22 Leadership Development Consultant Relationship Specialty Start Date End Date Jordan Azar MD PCP - General Family Medicine 10/13/14 Hua Marquez Jr., DO [address] [address] Referring Gastroenterology 05/25/18 Ramirez Nieto MD [address] [place] [address] Primary Staff Physician Cardiology 12/31/20 Leadership Development Consultant Relationship Specialty Start Date End Date Jordan Azar MD PCP - General Family Medicine 10/13/14 Hua Marquez Jr., DO [address] [place] [address] Referring Gastroenterology 05/25/18 Ramirez Nieto MD [address] [place] [address] Primary Staff Physician Cardiology 12/31/20 Leadership Development Consultant Relationship Specialty Start Date End Date Jordan Azar MD PCP - General Family Medicine 10/13/14 Hua Marquez Jr., DO [address] [place] [address] Referring Gastroenterology 05/25/18 Ramirez Nieto MD [address] [place] [address] Primary Staff Physician Cardiology 12/31/20 Kat Leal, [employer] [facility] [address] [place] [address] Transplant Center 06/10/22 Tiffany Bucio [address] [place] [phone] Referring Neurosurgery 11/07/22 [facility] 05/09/22 Leadership Development Consultant Relationship Specialty Start Date End Date Jordan Azar MD PCP - General Family Medicine 10/13/14 Hua Marquez Jr., DO [address] [place] [address] Referring Gastroenterology 05/25/18 Ramirez Nieto MD [address] [place] [address] Primary Staff Physician Cardiology 12/31/20 Kat Leal RN [facility] [address] [place] [address] Transplant Center 06/10/22 Tiffany Bucio [address] [phone] Referring Neurosurgery 11/07/22 [facility] 05/09/22 Leadership Development Consultant Relationship Specialty Start Date End Date Jordan Azar MD PCP - General Family Medicine 10/13/14 Hua Marquez Jr., DO [address] [place] [address] Referring Gastroenterology 05/25/18 Ramirez Nieto MD [address] [place] [address] Primary Staff Physician Cardiology 12/31/20 Kat Leal RN [facility] [address] [place] [address] Transplant Center 06/10/22 Tiffany Bucio [address] [place] [phone] Referring Neurosurgery 11/07/22 [facility] 05/09/22 Leadership Development Consultant Relationship Specialty Start Date End Date Jordan Azar MD PCP - General Family Medicine 10/13/14 Hua Marquez Jr., DO [address] [address] Referring Gastroenterology 05/25/18 Ramirez Nieto MD [address] [place] [address] Primary Staff Physician Cardiology 12/31/20 Kat Leal, [employer] [facility] [address] [place] [address] Transplant Center 06/10/22 Tiffany Bucio [address] [place] [phone] Referring Neurosurgery 11/07/22 [facility] 05/09/22 Leadership Development Consultant Relationship Specialty Start Date End Date Jordan Azar MD PCP - General Family Medicine 10/13/14 Hua Marquez Jr., DO [address] [place] [address] Referring Gastroenterology 05/25/18 Ramirez Nieto MD [address] [place] [address] Primary Staff Physician Cardiology 12/31/20 Kat Leal RN [facility] [address] [place] [address] Transplant Center 06/10/22 Tiffany Bucio [address] [place] [phone] Referring Neurosurgery 11/07/22 [facility] 05/09/22 Leadership Development Consultant Relationship Specialty Start Date End Date Jordan Azar MD PCP - General Family Medicine 10/13/14 Hua Marquez Jr., DO [address] [place] [address] Referring Gastroenterology 05/25/18 Ramirez Nieto MD [address] [place] [address] Primary Staff Physician Cardiology 12/31/20 Kat Leal, [employer] [facility] [address] [place] [address] Transplant Center 06/10/22 Tiffany Bucio [address] [place] [phone] Referring Neurosurgery 11/07/22 [facility] 05/09/22 Leadership Development Consultant Relationship Specialty Start Date End Date Jordan Azar MD PCP - General Family Medicine 10/13/14 Hua Marquez Jr., DO [address] [place] [address] Referring Gastroenterology 05/25/18 Ramirez Nieto MD [address] [place] [address] Primary Staff Physician Cardiology 12/31/20 Kat Leal RN [facility] [address] [place] [address] Transplant Center 06/10/22 Tiffany Bucio [address] [place] [phone] Referring Neurosurgery 11/07/22 [facility] 05/09/22 Leadership Development Consultant Relationship Specialty Start Date End Date Jordan Azar MD PCP - General Family Medicine 10/13/14 Hua Marquez Jr., DO [address] [address] Referring Gastroenterology 05/25/18 Ramirez Nieto MD [address] [place] [address] Primary Staff Physician Cardiology 12/31/20 Kat Leal, COSMO [facility] [address] [place] [address] Transplant Center 06/10/22 Tiffany Bucio [address] [phone] Referring Neurosurgery 11/07/22 [facility] 05/09/22 Leadership Development Consultant Relationship Specialty Start Date End Date Jordan Azar MD PCP - General Family Medicine 10/13/14 Hua Marquez Jr., DO [address] [address] Referring Gastroenterology 05/25/18 Ramirez Nieto MD [address] [place], [place] [id number] Primary Staff Physician Cardiology 12/31/20 Leadership Development Consultant Relationship Specialty Start Date End Date Joradn Azar MD PCP - General Family Medicine 10/13/14 Hua Marquez Jr., DO [address] [address] Referring Gastroenterology 05/25/18 Ramirez Nieto MD [address] [place] [address] Primary Staff Physician Cardiology 12/31/20 Leadership Development Consultant Relationship Specialty Start Date End Date Jordan Azar MD PCP - General Family Medicine 10/13/14 Hua Marquez Jr., DO [address] [address] Referring Gastroenterology 05/25/18 Ramirez Nieto MD [address] [place] [address] Primary Staff Physician Cardiology 12/31/20 Leadership Development Consultant Relationship Specialty Start Date End Date Jordan Azar MD PCP - General Family Medicine 10/13/14 Hua Marquez Jr., DO [address] [address] Referring Gastroenterology 05/25/18 Ramirez Nieto MD [address] [place] [address] Primary Staff Physician Cardiology 12/31/20 Leadership Development Consultant Relationship Specialty Start Date End Date Jordan Azar MD PCP - General Family Medicine 10/13/14 Hua Marquez Jr., DO [address] [place] [address] Referring Gastroenterology 05/25/18 Ramirez Nieto MD [address] [place] [address] Primary Staff Physician Cardiology 12/31/20 Kat Leal, [employer]MO [facility] [address] [place] [address] Transplant Center 06/10/22 Tiffany Bucio [address] [place] [phone] Referring Neurosurgery 11/07/22 [facility] 05/09/22 Leadership Development Consultant Relationship Specialty Start Date End Date Jordan Azar MD PCP - General Family Medicine 10/13/14 Hua Marquez Jr., DO [address] [place] [address] Referring Gastroenterology 05/25/18 Ramirez Nieto MD [address] [place] [address] Primary Staff Physician Cardiology 12/31/20 Kat Leal RN [facility] [address] [place] [address] Transplant Center 06/10/22 Tiffany Bucio [address] [place] [phone] Referring Neurosurgery 11/07/22 [facility] 05/09/22 Leadership Development Consultant Relationship Specialty Start Date End Date Jordan Azar MD PCP - General Family Medicine 10/13/14 Hua Marquez Jr., DO [address] [place] [address] Referring Gastroenterology 05/25/18 Ramirez Nieto MD [address] [place] [address] Primary Staff Physician Cardiology 12/31/20 Kat Leal, COSMO [facility] [address] [place] [address] Transplant Center 06/10/22 Tiffany Bucio [address] [place] [phone] Referring Neurosurgery 11/07/22 [facility] 05/09/22 Leadership Development Consultant Relationship Specialty Start Date End Date Jordan Azar MD PCP - General Family Medicine 10/13/14 Hua Marquez Jr., DO [address] [place] [address] Referring Gastroenterology 05/25/18 Ramirez Nieto MD [address] [place] [address] Primary Staff Physician Cardiology 12/31/20 Kat Leal, COSMO [facility] [address] [place] [address] Transplant Center 06/10/22 Tiffany Bucio [address] [place] [phone] Referring Neurosurgery 11/07/22 [facility] 05/09/22 Leadership Development Consultant Relationship Specialty Start Date End Date Jordan Azar MD PCP - General Family Medicine 10/13/14 Hua Marquez Jr., DO [address] [place] [address] Referring Gastroenterology 05/25/18 Ramirez Nieto MD [address] [place] [address] Primary Staff Physician Cardiology 12/31/20 Kat Leal, COSMO [facility] [address] [place] [address] Transplant Center 06/10/22 Tiffany Bucio [address] [phone] Referring Neurosurgery 11/07/22 [facility] 05/09/22 Leadership Development Consultant Relationship Specialty Start Date End Date Jordan Azar MD PCP - General Family Medicine 10/13/14 Hua Marquez Jr., DO [address] [place] [address] Referring Gastroenterology 05/25/18 Ramirez Nieto MD [address] [place] [address] Primary Staff Physician Cardiology 12/31/20 Kat Leal, COSMO [facility] [address] [place] [address] Transplant Center 06/10/22 Tiffany Bucio [address] [place] [phone] Referring Neurosurgery 11/07/22 [facility] 05/09/22 Leadership Development Consultant Relationship Specialty Start Date End Date Jordan Azar MD PCP - General Family Medicine 10/13/14 Hua Marquez Jr., DO [address] [address] Referring Gastroenterology 05/25/18 Ramirez Nieto MD [address] [place] [address] Primary Staff Physician Cardiology 12/31/20 Kat Leal RN [facility] [address] [place] [address] Transplant Center 06/10/22 Tiffany Bucio [address] [phone] Referring Neurosurgery 11/07/22 [facility] 05/09/22 Leadership Development Consultant Relationship Specialty Start Date End Date Jordan Azar MD PCP - General Family Medicine 10/13/14 Hua Marquez Jr., DO [address] [address] Referring Gastroenterology 05/25/18 Ramirez Nieto MD [address] [place] [address] Primary Staff Physician Cardiology 12/31/20 Kat Leal RN [facility] [address] [place] [address] Transplant Center 06/10/22 Tiffany Bucio [address] [phone] Referring Neurosurgery 11/07/22 [facility] 05/09/22 Leadership Development Consultant Relationship Specialty Start Date End Date Jordan Azar MD PCP - General Family Medicine 10/13/14 Hua Marquez Jr., DO [address] [place] [address] Referring Gastroenterology 05/25/18 Ramirez Nieto MD [address] [place] [address] Primary Staff Physician Cardiology 12/31/20 Kat Leal RN [facility] [address] [place] [address] Transplant Center 06/10/22 Tiffany Bucio [address] [place] [phone] Referring Neurosurgery 11/07/22 [facility] 05/09/22 Leadership Development Consultant Relationship Specialty Start Date End Date Jordan Azar MD PCP - General Family Medicine 10/13/14 Hua Marquez Jr., DO [address] [address] Referring Gastroenterology 05/25/18 Ramirez Nieto MD [address] [place] [address] Primary Staff Physician Cardiology 12/31/20 Kat Leal, COSMO [facility] [address] [place] [address] Transplant Center 06/10/22 Tiffany Bucio [address] [phone] Referring Neurosurgery 11/07/22 [facility] 05/09/22 Leadership Development Consultant Relationship Specialty Start Date End Date Jordan Azar MD PCP - General Family Medicine 10/13/14 Hua Marquez Jr., DO [address] [place] [address] Referring Gastroenterology 05/25/18 Ramirez Nieto MD [address] [place] [address] Primary Staff Physician Cardiology 12/31/20 Kat Leal, COSMO [facility] [address] [place] [address] Transplant Center 06/10/22 Tiffany Bucio [address] [phone] Referring Neurosurgery 11/07/22 [facility] 05/09/22 Leadership Development Consultant Relationship Specialty Start Date End Date Jordan Azar MD PCP - General Family Medicine 10/13/14 uHa Marquez Jr., DO [address] [place] [address] Referring Gastroenterology 05/25/18 Ramirez Nieto MD [address] [place] [address] Primary Staff Physician Cardiology 12/31/20 Kat Leal, COSMO [facility] [address] [place] [address] Transplant Center 06/10/22 Tiffany Bucio [address] [phone] Referring Neurosurgery 11/07/22 [facility] 05/09/22 Leadership Development Consultant Relationship Specialty Start Date End Date Jordan Azar MD PCP - General Family Medicine 10/13/14 Hua Marquez Jr., DO [address] [place] [address] Referring Gastroenterology 05/25/18 Ramirez Nieto MD [address] [place] [address] Primary Staff Physician Cardiology 12/31/20 Kat Leal, COSMO [facility] [address] [place] [address] Transplant Center 06/10/22 Tiffany Bucio [address] [phone] Referring Neurosurgery 11/07/22 [facility] 05/09/22 Leadership Development Consultant Relationship Specialty Start Date End Date Jordan Azar MD PCP - General Family Medicine 10/13/14 Hua Marquez Jr., DO [address] [place] [address] Referring Gastroenterology 05/25/18 Ramirez Nieto MD [address] [place] [address] Primary Staff Physician Cardiology 12/31/20 Kat Leal RN [facility] [address] [place] [address] Transplant Center 06/10/22 Tiffany Bucio [address] [place] [phone] Referring Neurosurgery 11/07/22 [facility] 05/09/22 Leadership Development Consultant Relationship Specialty Start Date End Date Jordan Azar MD PCP - General Family Medicine 10/13/14 Hua Marquez Jr., DO [address] [place] [address] Referring Gastroenterology 05/25/18 Ramirez Nieto MD [address] [place] [address] Primary Staff Physician Cardiology 12/31/20 Kat Leal RN [facility] [address] [place] [address] Transplant Center 06/10/22 Tiffany Bucio [address] [place] [phone] Referring Neurosurgery 11/07/22 [facility] 05/09/22 Leadership Development Consultant Relationship Specialty Start Date End Date Jordan Azar MD PCP - General Family Medicine 10/13/14 Hua Marquez Jr., DO [address] [place] [address] Referring Gastroenterology 05/25/18 Ramirez Nieto MD [address] [place] [address] Primary Staff Physician Cardiology 12/31/20 Kat Leal, COSMO [facility] [address] [place] [address] Transplant Center 06/10/22 Tiffany Bucio [address] [place] [phone] Referring Neurosurgery 11/07/22 [facility] 05/09/22 Leadership Development Consultant Relationship Specialty Start Date End Date Jordan Azar MD PCP - General Family Medicine 10/13/14 Hua Marquez Jr., DO [address] [place] [address] Referring Gastroenterology 05/25/18 Ramirez Nieto MD [address] [place] [address] Primary Staff Physician Cardiology 12/31/20 Kat Leal, COSMO [facility] [address] [place] [address] Transplant Center 06/10/22 Tiffany Bucio [address] [place] [phone] Referring Neurosurgery 11/07/22 [facility] 05/09/22 Leadership Development Consultant Relationship Specialty Start Date End Date Jordan Azar MD PCP - General Family Medicine 10/13/14 Hua Marquez Jr., DO [address] [facility] [address] [place] [address] Referring Gastroenterology 05/25/18 Ramirez Nieto MD [address] [place], [place] [id number] Primary Staff Physician Cardiology 12/31/20 Kat Leal, COSMO [facility] [address] [place] [address] Transplant Center 06/10/22 Tiffany Bucio [address] [facility] [address] [place] [phone] Referring Neurosurgery 11/07/22 Jordan Azar MD [address] [facility] [place] [address] Family Medicine 11/22/24 [facility] 05/09/22 Goals (unrecognized section and content) Goals [...] BE BASED ON THE PRIMARY CLINICAL RECORDS. [employer] [facility]. provides no warranty or guarantee of the accuracy or completeness of information in this document.
--- NOTE | 2024-11-23 09:46 | US_ITS ---
The [address] [address] Patient Name: JORDAN AGUILAR MRN: [id number] date: 1960 Sex: M Assigned Patient Location: [place] Current Patient Location: Accession/Order Number: [id number] Exam Date: 11/23/2024 09:50 Report Date: 11/23/2024 17:07 At the request of: JORDAN AZAR MD Procedure: US abdominal aortic aneurysm ULTRASOUND OF THE ABDOMINAL AORTA HISTORY: Follow-up abdominal aortic aneurysm COMPARISON: 06/08/2022 Real-time ultrasound evaluation of the abdominal aorta was performed. The proximal AP diameter is 3.2 cm and the width is 2.8 cm. Through the midsegment, the aorta measure 4.9 cm and the width is 4.5 cm. Distally, the diameter measures 4.6 cm and the width measures 4.8 cm. No aneurysm is seen. The bifurcation is visualized and the iliac arteries are normal caliber. There is no periaortic fluid. US/US abdominal aortic aneurysm IMPRESSION: Aneurysm dilatation of the mid and distal abdominal aorta measuring up to 4.9 cm in greatest transverse dimension. This is slightly worse when compared to the measurements from the 06/08/[address] Impression dictated by: Brett Conn M.D. 11/23/2024 5:07 PM Dictation Location: [facility] [employer] Electronically authenticated by: [id number] Y Date: 11/23/2024 17:07
== END 2024-11-23 09:38 | disposition home or self-care (01) ==
PROVIDERS: PCP Family Medicine; Visit Provider Family Medicine
DX: M54.16 Radiculopathy, lumbar region (principal); I71.40 Abdominal aortic aneurysm, without rupture, unspecified
CPT/HCPCS: 76775